=== PATIENT | female | born 1950 | race Native Hawaiian/Other Pacific Islander ===

== ENCOUNTER 2016-09-22 15:48 | Emergency (ER) | payer MEDICARE, OTHER ==
[~2016-09-22] VITALS: Ht 167.6 cm; Wt 99.0 kg
[~2016-09-22 15:48] MED LIST: ASPI81TA82 PO; ATEN-102 PO; ATOR40TA PO; HYDR12.56 PO; LEVE500 PO; LEVO100T4 PO; LISI-363 PO; LORA-474 PO; OXYC1SOL5 PO; TERA5CAP3 PO; VITA100020 PO; Z.0.WALKERFOLD
[2016-09-22 15:57] VITALS: BP 102/57; PULSE 68; RESP 18; TEMP 98.4; O2SAT 98
[2016-09-22] MEDS ORDERED: SODIUM CHLORIDE 0.9% FLUSH 5 ML FLUSH IVF PRN (16:00)
[2016-09-22 16:02] VITALS: BP 102/57; PULSE 66; RESP 18; TEMP 98.4; O2SAT 97
[2016-09-22 16:05] VITALS: RESP 18; O2SAT 98
--- NOTE | 2016-09-22 16:21 | PD ---
HPI . Left-sided numbness Chief Complaint: Numbness/Tingling Time Seen by Provider: 15:59 Travel History International Travel<30 days: No Contact w/Intl Traveler<30days: No Traveled to known affect area: No History of Present Illness HPI Patient presents with a 12 hour history of left-sided numbness. 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 She reports daily episodes of numbness on the left side of her body. She states that the episodes are normally fleeting. Today, she has had numbness since 3:30 AM. She states that she was told that if her symptoms ever worsened she should come to the emergency department for evaluation. She reports that she usually goes to [facility] and has been seen in [place] since her last visit here. She denies headache or blurred vision. She is not nauseous. PFSH Past Medical History Blood Disorders: No Heart Rhythm Problems: No Cancer: No Cardiovascular Problems: Yes High Cholesterol: Yes Chest Pain: No Congestive Heart Failure: No Diabetes: No Diminished Hearing: No Endocrine: Yes Gastrointestinal Disorders: No Genitourinary: No Hypertension: Yes Immune Disorder: No Implanted Vascular Access Dvce: No Musculoskeletal: Yes (back) Neurologic: Yes (brain aneurysms) Psychiatric: No Reproductive: No Respiratory: No Myocardial Infarction: Yes (10/07) Thyroid Disease: Yes (Hypothyrodism) ?: Not Menopausal: Yes Past Surgical History Abdominal Surgery: Yes Appendectomy: Yes Section: Yes Other Surgery: Yes (, appendecomy, back) Social History Alcohol Use: No Tobacco Use: Yes (quit 2012) Substance Use: No Allergies-Medications (Allergen,Severity, Reaction): Coded Allergies: Penicillin (Verified Allergy, Severe, 04/14/16) Reported Meds & Prescriptions Reported Meds & Active Scripts Active Walker Folding (Walkerfold) Device 1 Unit Vitamin B-12 (Cyanocobalamin) 1,000 Mcg Tab 1,000 Mcg PO DAILY 30 Days Keppra (Levetriacetam) 500 Mg Tab 500 Mg PO Q12HR 30 Days Oxycodone/Acetaminophen 5 mg/325 mg 5 mg/325 mg Tab 1 Tab PO Q6HR PRN Reported Levothyroxine 100 mcg (Levothyroxine Sodium) 100 Mcg Tab 100 Mcg PO DAILY Ativan (Lorazepam) 1 Mg Tab 1 Mg PO Q6H Atorvastatin 40 mg (Atorvastatin Calcium) 40 Mg Tab 40 Mg PO DAILY Aspir-81 (Aspirin) 81 Mg Tab 81 Mg PO DAILY Hctz (Hydrochlorothiazide) 12.5 Mg Cap 12.5 Mg PO BID Lisinopril 20 mg (Lisinopril) 20 Mg Tab 20 Mg PO BID Terazosin Hcl (Terazosin HCl) 5 Mg Cap 5 Mg PO BID Atenolol 50 Mg Tab 50 Mg PO BID Review of Systems General / Constitutional: No: Fever, Chills Eyes: No: Diploplia, Blurred Vision HENT: No: Headaches Cardiovascular: No: Chest Pain or Discomfort Respiratory: No: Shortness of Breath Gastrointestinal: No: Nausea Neurologic: Positive: Paresthesia Physical Exam Narrative GENERAL: Healthy-appearing woman who is in no acute distress SKIN: Warm and dry. HEAD: Atraumatic. Normocephalic. EYES: Pupils equal and round. ENT: No nasal bleeding or discharge. Mucous membranes pink and moist. NECK: Trachea midline. Neck is supple. CARDIOVASCULAR: Regular rate and rhythm. Heart sounds are normal. RESPIRATORY: No accessory muscle use. Lungs are clear with full air movement throughout. GASTROINTESTINAL: Abdomen soft, non-tender, nondistended. MUSCULOSKELETAL: No obvious deformities. No edema. NEUROLOGICAL: Awake and alert. No obvious cranial nerve deficits. Motor grossly within normal limits. Normal speech. Negative pronator drift. Negative Babinski's sign. PSYCHIATRIC: Appropriate mood and affect; insight and judgment normal. Data Data Last Documented VS Vital Signs Date Time Temp Pulse Resp B/P Pulse Ox O2 Delivery O2 Flow Rate FiO2 09/22/16 16:05 97 Room Air 09/22/16 16:05 18 09/22/16 16:02 98.4 66 102/57 Orders Complete Blood Count With Diff (09/22/16 15:59) Comprehensive Metabolic Panel (09/22/16 15:59) Prothrombin Time / Inr (Pt) (09/22/16 15:59) Act Partial Throm Time (Ptt) (09/22/16 15:59) Ct Brain W/O Iv Contrast(Rout) (09/22/16 15:59) Ecg Monitoring (09/22/16 15:59) Iv Access Insert/Monitor (09/22/16 15:59) Oximetry (09/22/16 15:59) Oxygen Administration (09/22/16 15:59) Sodium Chloride 0.9% Flush (Ns Flush) (09/22/16 16:00) Labs Laboratory Tests Test 09/22/16 16:15 White Blood Count 9.3 TH/MM3 Red Blood Count 5.07 MIL/MM3 Hemoglobin 14.1 GM/DL Hematocrit 42.0 % Mean Corpuscular Volume 82.8 FL Mean Corpuscular Hemoglobin 27.8 PG Mean Corpuscular Hemoglobin 33.6 % Concent Red Cell Distribution Width 13.9 % Platelet Count 171 TH/MM3 Mean Platelet Volume 11.5 FL Neutrophils (%) (Auto) 66.9 % Lymphocytes (%) (Auto) 22.3 % Monocytes (%) (Auto) 4.9 % Eosinophils (%) (Auto) 5.1 % Basophils (%) (Auto) 0.8 % Neutrophils # (Auto) 6.2 TH/MM3 Lymphocytes # (Auto) 2.1 TH/MM3 Monocytes # (Auto) 0.5 TH/MM3 Eosinophils # (Auto) 0.5 TH/MM3 Basophils # (Auto) 0.1 TH/MM3 CBC Comment DIFF FINAL Differential Comment Prothrombin Time 10.2 SEC Prothromb Time International 0.9 RATIO Ratio Activated Partial 23.1 SEC Thromboplast Time Sodium Level 142 MEQ/L Potassium Level 3.6 MEQ/L Chloride Level 104 MEQ/L Carbon Dioxide Level 28.7 MEQ/L Anion Gap 9 MEQ/L Blood Urea Nitrogen 24 MG/DL Creatinine 1.37 MG/DL Estimat Glomerular Filtration 38 ML/MIN Rate Random Glucose 128 MG/DL Calcium Level 8.8 MG/DL Total Bilirubin 0.5 MG/DL Aspartate Amino Transf 18 U/L (AST/SGOT) Alanine Aminotransferase 31 U/L (ALT/SGPT) Alkaline Phosphatase 101 U/L Total Protein 6.8 GM/DL Albumin 3.5 GM/DL MDM Medical Decision Making Medical Screen Exam Complete: Yes Emergency Medical Condition: Yes Medical Record Reviewed: Yes (the patient has just been seen here one time for this. That was in March. She had an MRA of her neck which was nondiagnostic. She had a CTA of her neck which showed tortuous carotids. She had an ultrasound of her carotids which showed stenosis and plaque formation. She had a head MRI/MRA which showed a small aneurysm of the left MCA.) Interpretation(s) EKG shows a sinus rhythm with a first-degree AV block. No ST segment elevation and. She does have inverted T waves in the lateral leads. Differential Diagnosis My differential diagnosis of paresthesias includes but is not limited to anxiety , radiculopathy, peripheral neuropathy, peripheral vascular disease, compartment syndrome, CVA, brain tumor, bleed. Narrative Course Patient presents for evaluation of paresthesias on her left side. CBC is normal. Chemistries are normal with the exception of decreased renal function with a GFR of 38 and a glucose of 128. Coagulation studies are normal. CT scan of her head is unchanged from previous. She has a stable density in the deep right frontal lobe consistent with the angioma. No evidence of a bleed. When I went in to discuss the findings with the patient, she reported that her symptoms seem to occur she is anxious about something. She has Ativan that she takes as needed. Her symptoms will resolve when she takes Ativan. The CT of her head is negative for bleed. Therefore, I think she is safe for discharge to home. I feel that her symptoms are probably more anxiety than neuro. Diagnosis Primary Impression: Paresthesia Disposition: 01 DISCHARGE HOME Condition: Stable Fay Mujica MD Sep 22, 2016 16:21
[2016-09-22 16:50] LABS: AUTOMATED NEUTROPHIL # 6.2 TH/MM3 (1.8-7.7); BASOPHIL # 0.1 TH/MM3 (0-0.2); BASOPHIL % 0.8 % (0.0-2.0); EOSINOPHIL # 0.5 TH/MM3 (0-0.4); EOSINOPHIL % 5.1 % (0.0-4.0); HEMO FLAGS DIFF FINAL; LYMPH % 22.3 % (9.0-44.0); LYMPHOCYTE # 2.1 TH/MM3 (1.0-4.8); MEAN CELL VOLUME 82.8 FL (80.0-100.0); MEAN CORPUSCULAR HEMOGLOBIN 27.8 PG (27.0-34.0); MEAN CORPUSCULAR HGB CONC 33.6 % (32.0-36.0); MONO % 4.9 % (0.0-8.0); NEUT % 66.9 % (16.0-70.0); PLATELET COUNT 171 TH/MM3 (150-450); RED BLOOD COUNT 5.07 MIL/MM3 (4.00-5.30); RED CELL DISTRIBUTION WIDTH 13.9 % (11.6-17.2); WHITE BLOOD COUNT 9.3 TH/MM3 (4.0-11.0)
[2016-09-22 17:00] LABS: APTT (PATIENT) 23.1 SEC (24.3-30.1); INTERNATIONAL NORMALIZED RATIO 0.9 RATIO; PROTHROMBIN TIME - PATIENT 10.2 SEC (9.8-11.6)
--- NOTE | 2016-09-22 17:06 | RADRPT ---
EXAM DATE/TIME: 09/22/2016 16:40 [facility] COMPARISON: MRI BRAIN W & W/O CONTRAST, April 14, 2016, 19:10. CT BRAIN W/O CONTRAST, April 14, 2016, 17:58. INDICATIONS : Cephalgia. RADIATION DOSE: 46.61 CTDIvol (mGy) MEDICAL HISTORY : Cerebrovascular disease. Hypertension. Seizures.brain aneurysm SURGICAL HISTORY : None. ENCOUNTER: Initial ACUITY: 1 day PAIN SCALE: 4/10 LOCATION: cranial TECHNIQUE: Multiple contiguous axial images were obtained of the head. Using automated exposure control and adj ustment of the mA and/or kV according to patient size, radiation dose was kept as low as reasonably a chievable to obtain optimal diagnostic quality images. FINDINGS: CEREBRUM: The ventricles are normal for age. No evidence of midline shift, mass lesion, hemorrhage or acute in farction. No extra-axial fluid collections are seen. Small area of increased density in the right fr ontal lobe deep white matter consistent with cavernous angioma remains present and unchanged Th e cerebellum and brainstem are intact. The 4th ventricle is midline. The cerebellopontine angle is unremarkable. EXTRACRANIAL: The visualized portion of the orbits is intact. SKULL: The calvaria is intact. No evidence of skull fracture. CONCLUSION: Stable CT brain scan with no acute intracranial abnormality. Stable small area of inc reased density in the right frontal deep white matter consistent with cavernous angioma Long Owen MD on September 22, 2016 at 17:02 Board Certified Radiologist. This report was verified electronically.
[2016-09-22 17:16] LABS: ANION GAP 9 MEQ/L (5-15); AST (GOT) 18 U/L (15-37); BICARBONATE 28.7 MEQ/L (21.0-32.0); BLOOD UREA NITROGEN 24 MG/DL (7-18); CHLORIDE 104 MEQ/L (98-107); GLOMERULAR FILTRATION RATE 38 ML/MIN (>89); POTASSIUM 3.6 MEQ/L (3.5-5.1); SODIUM (NA) 142 MEQ/L (136-145)
[2016-09-22 17:19] LABS: ALKALINE PHOSPHATASE 101 U/L (45-117); ALT (GPT) 31 U/L (10-53); TOTAL BILIRUBIN ADULT 0.5 MG/DL (0.2-1.0)
[2016-09-22] MEDS ORDERED: WALKER WHEELS/F1 MIS (18:15)
[2016-09-22 18:34] VITALS: BP 173/73; TEMP 98
--- NOTE | 2016-09-23 12:29 | EKG ---
Date Performed: 09/22/2016 Time Performed: 16:01:19 PTAGE: 66 years EKG: Sinus rhythm WITH FIRST DEGREE AV BLOCK ST DEVIATION AND MODERATE T-WAVE ABNORMALITY, CONSIDER ANTERIOR ISCHEMIA ABNORMAL ECG INTERPRETATION BASED ON A DEFAULT AGE OF 40 YEARS PREVIOUS TRACING : 04/14/2016 17.44 Compared to prior tracing no significant change DOCTOR: Pedro Pablo Read Interpretating Date/Time 09/23/2016 12:28:00
== END 2016-09-22 18:37 | disposition home or self-care (01) ==
LOC: NEPA 15:48
DX: R20.2 Paresthesia of skin (principal); E78.00 Pure hypercholesterolemia, unspecified; I10 Essential (primary) hypertension; R94.31 Abnormal electrocardiogram [ECG] [EKG]
CPT/HCPCS: 70450; 80053; 85025; 85610; 85730; 93005

== ENCOUNTER 2017-03-25 19:59 | Inpatient (IN) | payer MEDICARE, OTHER ==
[~2017-03-25] VITALS: Ht 167.6 cm; Wt 115.4 kg
[~2017-03-25 19:59] MED LIST changes: +WALKER WHEELS/F1 MIS
[2017-03-25 20:10] VITALS: BP 101/58; PULSE 120; RESP 18; TEMP 98.1; O2SAT 97
[2017-03-25 20:19] VITALS: BP 139/68; PULSE 121; RESP 22; O2SAT 92; O2SAT 95
[2017-03-25 20:20] VITALS: O2SAT 96
[2017-03-25] MEDS ORDERED: AZTREONAM INJ 2,000 MG in SODIUM CHLORIDE 0.9% INJ 100 ML IV STA (20:25)
[2017-03-25] MEDS ORDERED: LEVOFLOXACIN 750 MG PREMIX INJ 150 ML IV STA (20:25)
[2017-03-25] MEDS ORDERED: SODIUM CHLOR 0.9% 1000 ML INJ 1,000 ML IV ONE ×3 (20:30→22:00)
[2017-03-25] MEDS ORDERED: MORPHINE SULFATE 4 MG/ML INJ IV PUSH ONE (20:30)
[2017-03-25] MEDS ORDERED: ONDANSETRON HCL 4 MG/2 ML VIAL IV PUSH ONE (20:30)
[2017-03-25 20:34] LABS: HEMATOCRIT 29.5 % (35.0-46.0); MEAN CELL VOLUME 89.7 FL (80.0-100.0); MEAN CORPUSCULAR HEMOGLOBIN 29.3 PG (27.0-34.0); MEAN CORPUSCULAR HGB CONC 32.6 % (32.0-36.0); PLATELET COUNT 67 TH/MM3 (150-450); RED BLOOD COUNT 3.29 MIL/MM3 (4.00-5.30); RED CELL DISTRIBUTION WIDTH 17.5 % (11.6-17.2); WHITE BLOOD COUNT 30.2 TH/MM3 (4.0-11.0)
[2017-03-25] MEDS ORDERED: LAMO100 PO (20:37)
[2017-03-25 20:39] LABS: HEMO FLAGS AUTO DIFF
[2017-03-25] MEDS ORDERED: PERC5TAB12 PO (20:39)
[2017-03-25] MEDS ORDERED: TERA5CAP3 PO (20:39)
[2017-03-25] MEDS ORDERED: LEVO100T5 PO (20:39)
[2017-03-25] MEDS ORDERED: LORA1TAB12 PO (20:40)
[2017-03-25] MEDS ORDERED: LISI-586 PO (20:40)
[2017-03-25] MEDS ORDERED: ATEN50TA PO (20:41)
[2017-03-25] MEDS ORDERED: ATOR40TA16 PO (20:41)
--- NOTE | 2017-03-25 20:45 | PD ---
HPI Chief Complaint: Chest Pain Time Seen by Provider: 20:16 Travel History International Travel<30 days: No Contact w/Intl Traveler<30days: No Traveled to known affect area: No History of Present Illness HPI The patient is a 66 year old female who presents to the [facility] emergency department with a history of reportedly not feeling well since February 21 she underwent an epidural steroid injection for right-sided low back pain that radiates down into the right foot. She reports that after the procedure she began to have pain in the evening that night. She reports that she had a second procedure done on March 06 and continues to be an unremitting pain. She reports that over the last mom she's also had a cough is intermittently productive of white to rubio sputum. She reports that since January 2080 she's had chest pain and shortness of breath that gets worse when she stands up or exerts herself. She denies any prior history of myocardial infarction, congestive heart failure, lower extremity edema, calf pain that is new or erythema. The patient incidentally reports that she has numbness and tingling on the left side of the face, left arm, left leg that she reports is been chronic since September 2016 when she was diagnosed with an inoperable brain aneurysm. The patient denies being on any antibiotic recently. She reports are related to the cough she was placed on prednisone and has been taking prednisone 10 mg daily for the last month. The patient was brought in by ambulance services and was noted prior to arrival to have a blood pressure of 92 systolic then decreased to in the 70s with standing associated with chest pain and shortness of breath. The patient's blood sugar prior to arrival was 243. The patient received approximately 500 mL normal saline prior to arrival and her blood pressure went up to 113 systolic. The patient's recent history is also significant for being weaned off of Lamictal. She reports that she will be changed to a new seizure medicine. She was placed on seizure medicine in September 2016 related to her brain aneurysm. She is followed by for her neurologic care, Dr. Wilhelm for her neurosurgical care, and Dr. Campbell' s office for primary care. On review of systems, she denies having any fevers, however she has had some chills and night sweats. She reports that over the last 2 weeks she's had a diminished appetite and has also not been drinking well regarding her fluids over the last few days. The patient incidentally reports that she has had yellow drainage from her left eye, yellow drainage from her left ear that began today, and a sore throat that also began today. She denies having any nausea, vomiting, or diarrhea. She denies having any urinary symptoms including incontinence. She denies having any weakness to her arms or legs. 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 The patient reports that she quit smoking 4 years ago. Blood Disorders: No Heart Rhythm Problems: No Cancer: No Cardiovascular Problems: Yes High Cholesterol: Yes Chest Pain: No Congestive Heart Failure: No Diabetes: No Diminished Hearing: No Endocrine: Yes Gastrointestinal Disorders: No Genitourinary: No Hypertension: Yes Immune Disorder: No Implanted Vascular Access Dvce: No Musculoskeletal: Yes (back) Neurologic: Yes (brain aneurysms) Psychiatric: No Reproductive: No Respiratory: No Myocardial Infarction: Yes (10/07) Thyroid Disease: Yes (Hypothyrodism) Menopausal: Yes Past Surgical History Narrative Surgical The patient's past surgical history is significant for a , appendectomy , back surgery. Abdominal Surgery: Yes Appendectomy: Yes Section: Yes Other Surgery: Yes (, appendecomy, back) Social History Alcohol Use: No Tobacco Use: Yes (quit 2012) Substance Use: No Allergies-Medications (Allergen,Severity, Reaction): Coded Allergies: Penicillin (Verified Allergy, Severe, 03/25/17) Reported Meds & Prescriptions Reported Meds & Active Scripts Active Reported Atorvastatin (Atorvastatin Calcium) 40 Mg Tab 40 Mg PO DAILY Atenolol 50 Mg Tab 50 Mg PO BID Lorazepam 1 Mg Tab 1 Mg PO Q6H PRN Zestoretic (Lisinopril-Hctz) 20-12.5 Mg Tab 1 Tab PO BID Percocet (Oxycodone-Acetaminophen) 5-325 mg Tab 1 Tab PO Q6H PRN Terazosin (Terazosin HCl) 5 Mg Cap 5 Mg PO AC DINNER Levothyroxine (Levothyroxine Sodium) 100 Mcg Tab 100 Mcg PO DAILY Lamictal (Lamotrigine) 100 Mg Tab 50 Mg PO HS Review of Systems Except as stated in HPI: all other systems reviewed are Neg General / Constitutional: No: Fever Eyes: No: Visual changes HENT: No: Headaches Cardiovascular: No: Chest Pain or Discomfort Respiratory: No: Shortness of Breath Gastrointestinal: No: Abdominal Pain Genitourinary: No: Dysuria Musculoskeletal: No: Pain Skin: No Rash Neurologic: No: Weakness Psychiatric: No: Depression Endocrine: No: Polydipsia Hematologic/Lymphatic: No: Easy Bruising Physical Exam Narrative General: The patient is a well-developed well-nourished female in no acute distress. Head and Neck exam: Head is normocephalic atraumatic. Eyes: EOMI, pupils are equal round and reactive to light. Nose: Midline septum with pink mucous membranes Mouth: Dentition unremarkable. Moist mucus membranes. Posterior oropharynx is not erythematous. No tonsillar hypertrophy. Uvula midline. Airway patent. Neck: No palpable lymphadenopathy. No nuchal rigidity. No thyromegaly. Cardiovascular: Sinus tachycardia in the low 100s to 1 teens without murmurs, gallops, or rubs. No pulse deficit to the extremities and simultaneous auscultation and palpation of her radial artery. Lungs: Clear to auscultation bilaterally. No wheezes, rhonchi, or rales. Abdomen: Soft, without tenderness to palpation in all 4 quadrants of the abdomen. No guarding, rebound, or rigidity. Normal bowel sounds are audible. No tenderness on palpation of McBurney's point. Negative [place] sign. Extremities: No clubbing, cyanosis, or edema. 2+ pulses in all 4 extremities. No calf tenderness on palpation. Back: No spinous process tenderness to palpation. No costovertebral angle tenderness to palpation. No step-off or crepitus. No erythema or ecchymosis. Neurologic Exam: Cranial nerves 2-12 were intact on exam. Strength is 5/5 in all 4 extremities. The patient reports having a chronic numbness sensation along the left side of the face, left arm, left leg which has been unchanged compared to previously. Skin Exam: No rash noted. Intact skin that is warm and dry. Data Data Last Documented VS Vital Signs Date Time Temp Pulse Resp B/P Pulse Ox O2 Delivery O2 Flow Rate FiO2 03/25/17 20:20 96 Nasal Cannula 2 03/25/17 20:19 121 22 139/68 03/25/17 20:10 98.1 Orders Electrocardiogram (03/25/17 20:16) Complete Blood Count With Diff (03/25/17 20:16) Comprehensive Metabolic Panel (03/25/17 20:16) Creatine Kinase (Cpk) (03/25/17 20:16) Ckmb (Isoenzyme) Profile (03/25/17 20:16) Troponin I (03/25/17 20:16) B-Type Natriuretic Peptide (03/25/17 20:16) Prothrombin Time / Inr (Pt) (03/25/17 20:16) Act Partial Throm Time (Ptt) (03/25/17 20:16) Blood Culture (03/25/17 20:16) C-Reactive Protein (Crp) (03/25/17 20:16) Lipase (03/25/17 20:16) Urinalysis - C+S If Indicated (03/25/17 20:16) Westergren Sedimentation Rate (03/25/17 20:16) D-Dimer (03/25/17 20:16) Magnesium (Mg) (03/25/17 20:16) Chest, Pa & Lat (03/25/17 20:16) Iv Access Insert/Monitor (03/25/17 20:16) Ecg Monitoring (03/25/17 20:16) Oximetry (03/25/17 20:16) Lactic Acid Sepsis Protocol (03/25/17 20:16) Sodium Chlor 0.9% 1000 Ml Inj (Ns 1000 M (03/25/17 20:30) Morphine Inj (Morphine Inj) (03/25/17 20:30) Ondansetron Inj (Zofran Inj) (03/25/17 20:30) Aztreonam Inj (Azactam Inj) (03/25/17 20:25) Levofloxacin 750 Mg Premix Inj (Levaquin (03/25/17 20:25) Ct Pulmonary Angiogram (03/25/17 21:29) Sodium Chlor 0.9% 1000 Ml Inj (Ns 1000 M (03/25/17 21:45) Ct Lumb Spine W/O Contrast (03/25/17 21:32) Sodium Chlor 0.9% 1000 Ml Inj (Ns 1000 M (03/25/17 22:00) Urine Culture (03/25/17 21:44) Admit Order (Ed Use Only) (03/25/17 22:54) Labs Laboratory Tests Test 03/25/17 03/25/17 03/25/17 20:20 20:30 21:44 White Blood Count 30.2 TH/MM3 Red Blood Count 3.29 MIL/MM3 Hemoglobin 9.6 GM/DL Hematocrit 29.5 % Mean Corpuscular Volume 89.7 FL Mean Corpuscular Hemoglobin 29.3 PG Mean Corpuscular Hemoglobin 32.6 % Concent Red Cell Distribution Width 17.5 % Platelet Count 67 TH/MM3 Mean Platelet Volume 8.6 FL Neutrophils (%) (Auto) % Lymphocytes (%) (Auto) % Monocytes (%) (Auto) % Eosinophils (%) (Auto) % Basophils (%) (Auto) % Neutrophils # (Auto) TH/MM3 Lymphocytes # (Auto) TH/MM3 Monocytes # (Auto) TH/MM3 Eosinophils # (Auto) TH/MM3 Basophils # (Auto) TH/MM3 CBC Comment AUTO DIFF Differential Total Cells 100 Counted Neutrophils % (Manual) 24 % Band Neutrophils % 1 % Lymphocytes % 19 % Monocytes % 14 % Neutrophils # (Manual) 13.3 TH/MM3 Myelocytes 14 % Promyelocytes 5 % Differential Comment FINAL DIFF MANUAL Blastocytes 23 % Platelet Estimate LOW Platelet Morphology Comment NORMAL Erythrocyte Sedimentation Rate 74 mm/hr Prothrombin Time 11.3 SEC Prothromb Time International 1.0 RATIO Ratio Activated Partial 23.6 SEC Thromboplast Time D-Dimer Quantitative (PE/DVT) 2.88 MG/L FEU Sodium Level 139 MEQ/L Potassium Level 3.9 MEQ/L Chloride Level 106 MEQ/L Carbon Dioxide Level 25.7 MEQ/L Anion Gap 7 MEQ/L Blood Urea Nitrogen 30 MG/DL Creatinine 1.46 MG/DL Estimat Glomerular Filtration 36 ML/MIN Rate Random Glucose 184 MG/DL Calcium Level 7.8 MG/DL Magnesium Level 2.1 MG/DL Total Bilirubin 0.6 MG/DL Aspartate Amino Transf 32 U/L (AST/SGOT) Alanine Aminotransferase 31 U/L (ALT/SGPT) Alkaline Phosphatase 81 U/L Total Creatine Kinase 70 U/L Troponin I LESS THAN 0.02 NG/ML C-Reactive Protein 9.10 MG/DL B-Type Natriuretic Peptide 185 PG/ML Total Protein 6.0 GM/DL Albumin 2.6 GM/DL Lipase 303 U/L Lactic Acid Level 1.9 mmol/L Urine Color YELLOW Urine Turbidity CLEAR Urine pH 5.5 Urine Specific [place] 1.016 Urine Protein TRACE mg/dL Urine Glucose (UA) NEG mg/dL Urine Ketones NEG mg/dL Urine Occult Blood MOD Urine Nitrite NEG Urine Bilirubin NEG Urine Urobilinogen LESS THAN 2.0 MG/DL Urine Leukocyte Esterase TRACE Urine RBC 14 /hpf Urine WBC 43 /hpf Urine Squamous Epithelial 2 /hpf Cells Urine Bacteria RARE /hpf Urine Hyaline Casts 2 /lpf Urine Granular Casts 2 /lpf Urine Mucus FEW /lpf Microscopic Urinalysis Comment CULTURE INDICATED MDM Medical Decision Making Medical Screen Exam Complete: Yes Emergency Medical Condition: Yes Medical Record Reviewed: Yes Interpretation(s) Last Impressions Lumbar Spine CT 03/25/172131 Signed Impressions: Service Date/Time: Sunday, March 26, 2017 01:12 - CONCLUSION: 1. Degenerative disc changes greatest at the L4-5 and L5-S1 levels with broad-based disc osteophyte complexes. There is lateral recess stenosis at the L5-S1 level. 2. Mild retrolisthesis of L5 on S1 with degenerative disc change and broad-based disc osteophyte complex. 3. Narrowing of the neuroforamina bilaterally at the L4-5 and L5-S1 levels. 4. Degenerative disc change. Balaji Solorio MD CT Angiography 03/25/172128 Signed Impressions: Service Date/Time: Sunday, March 26, 2017 01:09 - CONCLUSION: 1. Mild consolidation along the left fissure and lower lobe. This could indicate early pneumonia. 2. No evidence of pulmonary embolism. Balaji Solorio MD Chest X-Ray 03/25/172015 Signed Impressions: Service Date/Time: Saturday, March 25, 2017 20:48 - CONCLUSION: Partially consolidative left lower lobe infiltrate. Yared Sethi MD Differential Diagnosis Acute coronary syndrome, versus pneumonia, versus pulmonary embolism, versus pyelonephritis, versus exacerbation of chronic pain, versus epidural abscess, versus epidural hemorrhage Narrative Course During the course of the patients emergency department visit, the patients history, examination, and differential diagnosis were reviewed with the patient. The patient had IV access obtained and blood work sent for analysis. The patient was placed on a clinical research monitor with oximetry and blood pressure monitoring. An ECG was done on arrival. The patient's ECG reveals a sinus tachycardia with heart rate of 122, nonspecific ST-T wave abnormalities, T waves inverted in V1, V2, V3, no acute ST segment elevation, QRS duration 90 ms , QTC 404 ms. Blood cultures 2 were drawn, lactic acid was sent for analysis. The patient was initially provided normal saline 1 L IV fluid bolus, morphine for pain, Zofran for nausea. The patient was started on IV antibiotic for respiratory coverage for suspected pneumonia including Azactam, and Levaquin given the patient's penicillin allergy. The patients laboratory studies were reviewed and remarkable for a white count of 30.2, hemoglobin 9.6, platelets 67 which is an acute thrombocytopenia compared to previous evaluation, neutrophils 24, bands 1, 19 lymphocytes, monocytes 14, myelocytes 14, promyelocytes 5, 23 blasts. CMP is remarkable for BUN of 30, creatinine 1.48, glucose 184, lactic acid is 1.9, calcium 7.8, CPK 70 , troponin I less than 0.02, C-reactive protein is 9.10, lipase 303, BNP is 185. PT 11.3, PTT 23.6, d-dimer elevated at 2.88, a CTA to rule out PE was ordered. CT scan of the lumbar spine was also ordered to evaluate for possible mass versus infectious process. Radiology studies were reviewed and remarkable for a partially consolidated left lower lobe infiltrate. CT scan of the chest to rule out PE shows a mild consolidation along the left fissure and lower lobe. This could indicate early pneumonia. No evidence of pulmonary embolism. CT scan of the lumbar spine shows degenerative disc changes greatest at L4-L5 L5-S1 with broad-based disc osteophyte complexes. There is lateral recess stenosis at L5-S1 level. #2 there is mild retrolisthesis of L5 on S1 with degenerative disc change and brought to a disc osteophyte complex. #3 narrowing of the neuroforamina bilaterally at the L4-L5 L5-S1 levels, degenerative disc changes. The patients results were discussed with the patient, including the plan of care. I explained that further testing and/ or monitoring is indicated based on the patients history, examination, and/ or laboratory findings. Therefore, I recommended admission for additional evaluation. The patient expressed understanding and was agreeable with this plan. The patient was admitted to the hospital in guarded condition and sent to a bed under the care of the [facility] hospitalist group. Critical Care Narrative Aggregate critical care time was 40 minutes. Time to perform other separately billable procedures was not included in the critical care time. My time did not include minutes spent treating any other patients simultaneously or on activities that did not directly contribute to the patient's treatment. The services I provided to this patient were to treat and/or prevent clinically significant deterioration that could result in: [-] I provided critical care services requiring my management, as noted below: Chart data review, documentation time, medication orders and management, vital sign assessments/reviewing monitor data, ordering and reviewing lab tests, ordering and interpreting/reviewing x-rays and diagnostic studies, care of the patient and discussion of the patient with the admitting physicians. Sepsis Criteria SIRS Criteria (2 or more): Heart rate over 90, RR > 20 or PaCO2 < 32, WBC > 32149, < 4000 or > 10% bands Sepsis Criteria (SIRS+source): Infect source susp/known Criteria Outcome: Meets SIRS criteria, Meets sepsis criteria Diagnosis Primary Impression: Pneumonia Qualified Code: J18.1 - Pneumonia of left lower lobe due to infectious organism Additional Impression: Sepsis Qualified Code: A41.9 - Sepsis, due to unspecified organism Admitting Information Admitting Physician Requests: Admit Genet Donahue MD Mar 25, 2017 20:45
[2017-03-25 20:49] LABS: APTT (PATIENT) 23.6 SEC (24.3-30.1); PROTHROMBIN TIME - PATIENT 11.3 SEC (9.8-11.6)
[2017-03-25 20:54] LABS: ANION GAP 7 MEQ/L (5-15); AST (GOT) 32 U/L (15-37); BICARBONATE 25.7 MEQ/L (21.0-32.0); BLOOD UREA NITROGEN 30 MG/DL (7-18); CHLORIDE 106 MEQ/L (98-107); GLOMERULAR FILTRATION RATE 36 ML/MIN (>89); MAGNESIUM 2.1 MG/DL (1.5-2.5); POTASSIUM 3.9 MEQ/L (3.5-5.1); SODIUM (NA) 139 MEQ/L (136-145)
[2017-03-25 20:55] LABS: ALT (GPT) 31 U/L (10-53)
[2017-03-25 20:58] LABS: ALKALINE PHOSPHATASE 81 U/L (45-117); TOTAL BILIRUBIN ADULT 0.6 MG/DL (0.2-1.0)
[2017-03-25 21:03] LABS: CREATINE KINASE 70 U/L (26-192)
[2017-03-25 21:13] LABS: BANDS 1 % (0-6); BLASTS 23 % (0-0); MYELOCYTES 14 % (0-0); NEUTROPHIL # MANUAL DIFF 13.3 TH/MM3 (1.8-7.7); POLYS (SEG NEUTROPHILS) 24 % (16-70); PROMYELOCYTES 5 % (0-0); WBC DIFF SAMPLE 100
[2017-03-25 21:15] LABS: PLATELET ESTIMATE SMEAR LOW (NORMAL); PLATELET MORPHOLOGY NORMAL (NORMAL); SCAN/DIFF FINAL DIFF MANUAL
--- NOTE | 2017-03-25 21:21 | RADRPT ---
EXAM DATE/TIME: 03/25/2017 20:48 [facility] COMPARISON: No previous studies available for comparison. INDICATIONS : Left anterior chest pain, denies injury MEDICAL HISTORY : Cerebrovascular disease. Hypertension. Seizures.brain aneurysm SURGICAL HISTORY : None. ENCOUNTER: Initial ACUITY: 1 week PAIN SCORE: 4/10 LOCATION: Left chest FINDINGS: The right lung is clear. There are some patchy areas of partially consolidative infiltrate in the le ft lower lung with air bronchograms. Both hemidiaphragms remain well delineated. No evidence of ple ural effusion. The heart is normal in size and configuration. Osseous structures are grossly intact . CONCLUSION: Partially consolidative left lower lobe infiltrate. Yared Sethi MD on March 25, 2017 at 21:18 Board Certified Radiologist. This report was verified electronically.
[2017-03-25 22:33] LABS: BACTERIA, URINE RARE /hpf; BLOOD, URINE MOD (NEG); COMMENT (UR) CULTURE INDICATED; CULTURE IF INDICATED CULTURE INDICATED; GLUCOSE,URINE NEG (NEG); GRANULAR CAST, URINE 2 /lpf; HYALINE CAST, URINE 2 /lpf (RARE); KETONE, URINE NEG (NEG); MUCUS URINE FEW /lpf (OCC); NITRITE,URINE NEG (NEG); PH, URINE 5.5 (5.0-8.5); SQUAMOUS EPITHELIAL CELL URINE 2 /hpf (0-5); URINE COLOR YELLOW (YELLW/STRAW)
[2017-03-25] MEDS ORDERED: HEPARIN SODIUM - SQ 10,000 UNITS/ML VIAL SQ SCH (23:00)
[2017-03-25] MEDS ORDERED: guaiFENesin/DEXTROMETHORPHAN 200 MG/20 MG/10 ML CUP PO PRN (23:15)
[2017-03-25] MEDS ORDERED: LACTULOSE SYRUP 20 GM/30 ML CUP PO PRN (23:15)
[2017-03-25] MEDS ORDERED: ACETAMINOPHEN 325 MG TAB PO PRN (23:15)
[2017-03-25] MEDS ORDERED: SENNOSIDES 8.6 MG TAB PO PRN (23:15)
[2017-03-25] MEDS ORDERED: NALOXONE HCL 0.4 MG/ML AMP IV PRN (23:15)
[2017-03-25] MEDS ORDERED: SODIUM CHLORIDE 0.9% FLUSH 10 ML FLUSH IV FLUSH PRN (23:15)
[2017-03-25] MEDS ORDERED: PILL SPLITTER OTHER PRN (23:30)
[2017-03-26] VITALS (16 sets, daily range): BP systolic 70–111; BP diastolic 46–63; PULSE 68–133; RESP 14–30; TEMP 96.6–100.6; O2SAT 92–99
[2017-03-26] MEDS: MORPHINE SULFATE 4 MG/ML INJ IV PUSH PRN ×4 (00:47→19:57)
[2017-03-26] MEDS ORDERED: IODIXANOL 320 MG/ML 10 ML VIAL (for Rad CT) IV ONE (01:10)
--- NOTE | 2017-03-26 01:22 | RADRPT ---
EXAM DATE/TIME: 03/26/2017 01:09 [facility] COMPARISON: CHEST PA & LAT, March 25, 2017, 20:48. INDICATIONS : Chest pain with shortness of breath. Abnormal chest x-ray exam with consolidation in the left lower l obe. IV CONTRAST: 50 cc Visipaque (iodixanol) IV RADIATION DOSE: 23.34 CTDIvol (mGy) MEDICAL HISTORY : Seizures. Hypertension. CVA. SURGICAL HISTORY : Appendectomy. section.Spinal surgery. ENCOUNTER: Initial ACUITY: 1 day PAIN SCALE: 6/10 LOCATION: Bilateral chest TECHNIQUE: Volumetric scanning of the chest was performed using a pulmonary embolism protocol MIP images were re constructed. Using automated exposure control and adjustment of the mA and/or kV according to patien t size, radiation dose was kept as low as reasonably achievable to obtain optimal diagnostic quality images. DICOM format image data is available electronically for review and comparison. Follow-up recommendations for incidentally detected pulmonary nodules are based at a minimum on nodul e size and patient risk factors according to Fleischner Society Guidelines. FINDINGS: PULMONARY ARTERIES: No filling defects are seen in the pulmonary arteries through the segmental level. LUNGS: There is no pneumothorax . There is mild consolidation along the left fissure and lower lobe. No con cerning pulmonary nodule is visualized. PLEURAE: There is no pleural thickening or pleural effusion. MEDIASTINUM: There is good visualization of the great vessels of the middle mediastinum. No evidence of mediastin al or hilar adenopathy/mass. MUSCULOSKELETAL: Within normal limits for patient age. MISCELLANEOUS: The visualized upper abdominal organs demonstrate no acute abnormality. CONCLUSION: 1. Mild consolidation along the left fissure and lower lobe. This could indicate early pneumonia. 2. No evidence of pulmonary embolism. Balaji Solorio MD on March 26, 2017 at 1:18 Board Certified Radiologist. This report was verified electronically.
[2017-03-26] MEDS: SODIUM CHLOR 0.9% 1000 ML INJ 1,000 ML IV SCH ×3 (01:28→19:57)
--- NOTE | 2017-03-26 01:40 | RADRPT ---
EXAM DATE/TIME: 03/26/2017 01:12 [facility] COMPARISON: No previous studies available for comparison. INDICATIONS : Low back pain. RADIATION DOSE: 37.81 CTDIvol (mGy) MEDICAL HISTORY : Hypertension. Seizures. CVA. SURGICAL HISTORY : section. Spinal surgery. ENCOUNTER: Initial ACUITY: 1 day PAIN SCALE: 0/10 LOCATION: lumbar TECHNIQUE: Volumetric scanning of the lumbar spine was performed. Multiplanar reconstructions in the sagittal, coronal and oblique axial planes were performed. Using automated exposure control and adjustment of the mA and/or kV according to patient size, radiation dose was kept as low as reasonably achievable t o obtain optimal diagnostic quality images. DICOM format image data is available electronically for review and comparison. FINDINGS: VERTEBRAE: There is mild invagination of the superior endplate of the L3 vertebral body. DISCS: Degenerative disc changes are present greatest at the L4-5 and L5-S1 levels with disc space narrowing and hypertrophic change. ALIGNMENT: There is mild retrolisthesis of L5 on S1 of several millimeters. There is straightening of the normal lumbar lordosis. There is a mild scoliosis. T12-L1: The thecal sac has a normal diameter. No evidence of disc bulge or protrusion. The neural foramina are patent bilaterally. L1-L2: There is a mild disc bulge with mild flattening of the anterior thecal sac and no visualized protrusi on.. The neural foramina are patent bilaterally. L2-L3: There is a mild to moderate disc bulge with mild flattening the anterior thecal sac and no visualized protrusion. The neural foramina are patent bilaterally. L3-L4: There is a mild to moderate disc bulge with mild flattening of the anterior thecal sac and no visuali zed protrusion. The neural foramina are patent bilaterally. L4-L5: Degenerative disc changes with broad-based disc osteophyte complex with flattening of the anterior th ecal sac and narrowing of the neural foramina bilaterally. There are degenerative change involving th e facet joints. L5-S1: Degenerative disc change with broad-based disc osteophyte complex with flattening of the anterior the luis sac and narrowing of the neural foramina bilaterally. There is bilateral foraminal narrowing and lateral recess stenosis. CONCLUSION: 1. Degenerative disc changes greatest at the L4-5 and L5-S1 levels with broad-based disc osteophyte c omplexes. There is lateral recess stenosis at the L5-S1 level. 2. Mild retrolisthesis of L5 on S1 with degenerative disc change and broad-based disc osteophyte comp lux. 3. Narrowing of the neuroforamina bilaterally at the L4-5 and L5-S1 levels. 4. Degenerative disc change. Balaji Solorio MD on March 26, 2017 at 1:33 Board Certified Radiologist. This report was verified electronically.
[2017-03-26] MEDS: TEMAZEPAM 15 MG CAP PO PRN ×2 (03:06→21:16)
[2017-03-26 04:27] LABS: HEMATOCRIT 24.1 % (35.0-46.0); MEAN CELL VOLUME 89.7 FL (80.0-100.0); MEAN CORPUSCULAR HEMOGLOBIN 30.2 PG (27.0-34.0); MEAN CORPUSCULAR HGB CONC 33.6 % (32.0-36.0); PLATELET COUNT 52 TH/MM3 (150-450); RED BLOOD COUNT 2.69 MIL/MM3 (4.00-5.30); WHITE BLOOD COUNT 30.5 TH/MM3 (4.0-11.0)
[2017-03-26 04:32] LABS: HEMO FLAGS AUTO DIFF
[2017-03-26 04:36] LABS: ALKALINE PHOSPHATASE 66 U/L (45-117); ALT (GPT) 27 U/L (10-53); ANION GAP 9 MEQ/L (5-15); AST (GOT) 24 U/L (15-37); BICARBONATE 22.8 MEQ/L (21.0-32.0); BLOOD UREA NITROGEN 22 MG/DL (7-18); CALCIUM-PROTEIN CORRECTED 8.2 MG/DL (8.5-10.1); CHLORIDE 111 MEQ/L (98-107); GLOMERULAR FILTRATION RATE 45 ML/MIN (>89); POTASSIUM 3.9 MEQ/L (3.5-5.1); SODIUM (NA) 143 MEQ/L (136-145); TOTAL BILIRUBIN ADULT 0.3 MG/DL (0.2-1.0)
--- NOTE | 2017-03-26 05:36 | MH ---
cc: MILEY DUFFY DATE OF ADMISSION: 03/25/2017 TIME OF EVALUATION 23:45 CHIEF COMPLAINT Chest pain. Shortness of breath. HISTORY OF PRESENT ILLNESS This is a pleasant 66-year-old female who has not felt well for several weeks. She states on February 21 she underwent epidural steroid injection for right-sided low back pain which was radiating down the right leg. She had another procedure done on March 06. She was due for another one on March [address] Stern, the pain management doctor but was unable to go because she was so short of breath. She states, over the last two weeks, she has had increasing shortness of breath and poor appetite. She brings up white to rubio sputum. She has developed chest pain mainly in the left chest described as a burning and sharp pain. It is more in the upper chest, kind of radiates around the neck and the back and then down to the mid-chest. It is there with exertion but not at rest. She has had some chills but no fever, no nausea or vomiting. She has not complained of nausea, vomiting or diarrhea. She is not having unilateral weakness, numbness or paresthesias in the legs. She is not having loss of bowel or bladder control. She is feeling worse and thus decided to seek medical attention. She has already been on steroids, prednisone 10 mg per day for the past month but she does not feel like this is helping her. PAST MEDICAL HISTORY Significant for - 1. Chronic kidney disease. 2. Hypertension. 3. Hyperlipidemia. 4. Hypothyroidism. 5. Four cerebral aneurysms being monitored medically. 6. TIA. 7. Anxiety 8. Partial seizures. 9. COPD. PAST SURGICAL HISTORY 1. Appendectomy. 2. . 3. Lumbar spinal surgery for an HNP. 4. Varicose veins in the left lower extremity removed. SOCIAL HISTORY Quite smoking four years ago. 30 years ago. Alcohol very rare. FAMILY HISTORY Hypertension and coronary artery disease run in both her parents. REVIEW OF SYSTEMS The patient states she is up-to-date on her colonoscopy and it was normal. Her last mammogram was in 2014 and was normal. She missed her mammogram in 2016. She used to take aspirin but decided to stop taking it on her own several months ago. She is not sure why she decided to stop taking it. She does not remember having side effects from it. She has actually gained weight over the last several years. She has occasional constipation and uses a laxative but this is not every day. REVIEW OF SYSTEMS On 12-point no other pertinent findings. PHYSICAL EXAMINATION VITAL SIGNS: On admission the patient's heart rate was 120, she was afebrile. Blood pulses was 101//58, respirations 18, on a attorney right now her heart rate is in the high 60s, O2 sat is 96% on 2 liters nasal cannula. GENERAL: This is a 66-year-old female resting in ER Bed 49 laying on her left side. She is in no distress. HEENT: No jaundice. Mucous membranes are moist. NECK: Supple. CARDIOVASCULAR SYSTEM: Regular rate and rhythm. RESPIRATORY SYSTEM: Scattered wheezes. A few rhonchi on the left. GASTROINTESTINAL SYSTEM: Obese. No tenderness, guarding or rebound. SYSTEM: No suprapubic tenderness. No CVA tenderness. MUSCULOSKELETAL SYSTEM: Well-healed surgical scar on her lower lumbar spine. There is no point tenderness, guarding, step-off noted on her spine. Lower extremities are without edema. Distal pulses are palpable. Mike's is negative. NEUROLOGICAL EXAMINATION: The patient is awake, alert and oriented x 4. Speech is clear and fluent. Strength appears symmetrical in the upper and lower extremities. Sensation is grossly intact in the upper and lower extremities. INVESTIGATIONS White count is 30.2, hemoglobin is 9.6, platelets are 67, monocytes are 14, myelocytes are 14, promyelocytes are 5, blast cells are 23. Sed rate was 74. INR is 1. D-dimer is at 2.88. BUN 30, creatinine 1.46, GFR is 36, glucose random was 184, calcium 7.8. Troponins negative. C-reactive protein is 9.1. BNP is 185. Total protein is 6, BUN is 2.6, lipase is 303, lactic acid was 1.9. Urinalysis shows moderate occult blood, glucose trace, WBC 43; culture is indicated. CHEST X-RAY Partially consolidated left lower lobe infiltrates. Blood cultures are pending. Urine cultures are pending. IMPRESSION 1. Early sepsis on admission. 2. Left-sided pneumonia. 3. Leukocytosis. 4. Anemia and thrombocytopenia with high myelocytes, promyelocytes and blast cells. 5. Chronic kidney disease. 6. Protein calorie malnutrition. 7. Elevated sed rate and C-reactive protein. 8. Hypertension. 9. History of four small cerebral aneurysms being monitored medically. 10. Recent epidural steroid injections into the lumbar spine for back pain. DISCUSSION The patient is being admitted to Dr. Duffy's service. The patient meets inpatient criteria due to the severity of her pneumonia as well as her multiple abnormal lab findings without which hospitalization she would be at high risk of going into respiratory failure or septic shock or worse. During her hospital stay she will be continued on IV antibiotics including Azactam and Levaquin. Cough medication will be given s needed. Nebulizers will be given as needed. We will consult Oncology human relations teacher to evaluate her for her abnormal CBC and the possibility she will need further workup including bone marrow biopsy, etc. This will be deferred to the oncology team. CT, pulmonary angiogram is pending. CT of the lumbar spine is pending. We will monitor her on telemetry because of the chest pain. We will also monitor serial troponins. Initial troponin was negative. Analgesics p.r.n. will be used as well as anxiolytics and further recommendations will be made as her case progresses. Anticipated length of stay is five to six days. Anticipated discharge yet to be determined. Dictated by: Clive Alejandro PA-C Miley Duffy MD JP/RHONDA /12:28 AM /5:07 AM pt seen and examined as above chart reviewed dw pt plan of care juliana TRIPP
[2017-03-26] MEDS: FAMOTIDINE 20 MG TAB PO SCH ×2 (07:15→19:56)
[2017-03-26] MEDS: AZTREONAM INJ 2,000 MG in SODIUM CHLORIDE 0.9% INJ 100 ML IV SCH ×3 (07:15→23:04)
[2017-03-26] MEDS: SODIUM CHLORIDE 0.9% FLUSH 10 ML FLUSH IV FLUSH SCH ×2 (07:15→19:57)
[2017-03-26 08:16] LABS: BANDS 5 % (0-6); BLASTS 32 % (0-0); METAMYELOCYTES 6 % (0-1); MYELOCYTES 10 % (0-0); NEUTROPHIL # MANUAL DIFF 12.5 TH/MM3 (1.8-7.7); POLYS (SEG NEUTROPHILS) 20 % (16-70); WBC DIFF SAMPLE 100
[2017-03-26 08:18] LABS: PLATELET ESTIMATE SMEAR LOW (NORMAL); PLATELET MORPHOLOGY NORMAL (NORMAL); SCAN/DIFF FINAL DIFF MANUAL
[2017-03-26] MEDS: ALLOPURINOL 100 MG TAB PO SCH ×2 (09:00→19:56)
--- NOTE | 2017-03-26 12:38 | MB ---
cc: LAVELL REIS ZAFAR MD DATE OF CONSULTATION: 03/26/2017 DATE OF : 1950 REASON FOR CONSULTATION Patient with elevated WBC count with circulating myeloid blasts, anemia and thrombocytopenia. Concern for acute leukemia. CHIEF COMPLAINT 1. The patient reports [id number] week history of progressive fatigue, weakness. 2. She reports progressive pain radiating down her right leg which she thinks is worsening sciatica. 3. Chronic cough producing scant phlegm which has been ongoing for months. HISTORY OF PRESENT ILLNESS Ms. Richard is a 66-year-old female who reports having multiple medical comorbid conditions including intracranial aneurysms for which she has been recommended surveillance, sciatica, obesity, she is a former smoker (about a pack a day for 30+ years). She quit 4 years ago. She reports having felt progressive malaise over the past 3 weeks with progressive fatigue, weakness, joint aches and pains, loss of appetite and a chronic cough. She tells me she had been spending a lot of time in bed and her children had been trying to get her up and around to ambulate. The patient, however, acutely worsened last night and decided to come into the emergency department for further workup and management. Blood work performed at the time of presentation indicated a WBC count of 30,000, she was anemic and thrombocytopenic. Automated differential indicated 23% blasts. This was verified on manual differential as well. Additionally, she was noted to have metamyelocytes, promyelocytes and myelocytes in circulation as well. PAST MEDICAL HISTORY 1. A former smoker. 2. Obesity. 3. Intracranial aneurysms. 4. Hyperlipidemia. 5. Hypertension. 6. Hypothyroidism. 7. Reported history of partial seizures. 8. COPD. 9. Anxiety. PAST SURGICAL HISTORY 1. . 2. Varicose vein surgery in her left leg. 3. Appendectomy. SOCIAL HISTORY She is single, she has two adult children age 44 and 36. She reports previously being a smoker. She reports formerly working at [employer] for about 17 years. She retired about 5 years ago. 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 FAMILY HISTORY Parents are both , she does not recall any oncologic diagnoses other than an aunt (maternal) who had lung cancer. ALLERGIES PENICILLIN. MEDICATION Current inpatient medications: 1. Levofloxacin 750 mg IV daily. 2. Normal saline 100 cc/hour. 3. Tylenol 650 mg p.o. q. 4 hours as needed for fever. 4. Allopurinol 100 mg p.o. b.i.d. 5. Famotidine 10 mg p.o. b.i.d. 6. Guaifenesin 200/20 mg per 10 mL every 4 hours as needed for cough. 7. Lactulose 30 mL p.o. daily. 8. Morphine 2 mg IV q. 3 hours as needed for pain. 9. Zofran 4 mg IV q.4 hours as needed for nausea and vomiting. 10. Zofran 4 mg IV q.6 hours. 11. Senokot 17.2 mg p.o. q.12 hours as needed for moderate pain. 12. Temazepam 15 mg p.o. q.h.s. as needed for insomnia. REVIEW OF SYSTEMS 13-point review of systems is obtained, the following are the pertinent positives and negatives: CONSTITUTIONAL: The patient reports fatigue, weakness, loss of appetite, she denies chills or night sweats. She denies fevers. HEENT: Denies headaches, blurry vision, difficulty swallowing, soreness in the throat. RESPIRATORY: She reports shortness of breath with exertion, she reports a dry cough. CARDIOVASCULAR: Denies angina-like chest pain, PND, orthopnea. She denies lower extremity edema. GI: Denies nausea, vomiting, diarrhea, hematochezia, melena. She does report having hemorrhoids that bled a few weeks ago but not since. : No complaints of dysuria, hematuria, urinary incontinence. SENIOR CLINICAL DATA ANALYST: Denies any focal sensory or motor deficits. MUSCULOSKELETAL: She reports feeling generally weak and tired. She reports lower back pain with radiation down her right hip and thigh. PHYSICAL EXAMINATION VITAL SIGNS: Temperature 97.5 degrees Fahrenheit, heart rate 76 beats per minute, respiratory rate 30, blood pressure 106/62, O2 sats 97% on 2 liters nasal cannula. GENERAL PHYSICAL APPEARANCE: Ms. Richard is a middle-aged female, she is of medium height and is heavy-set. She is laying in bed and is in no acute distress. HEENT: Head is atraumatic, normocephalic, conjunctivae are pale. Sclerae are anicteric, EOMI, PERRLA. ORAL EXAM: She has thrush noted. NECK: No cervical lymphadenopathy. RESPIRATORY: Good air movement bilaterally. No added breath sounds. CARDIOVASCULAR: Regular rate and rhythm, S1-S2. No obvious rubs or gallops. She does have a systolic murmur heard over the aortic area. ABDOMEN: Obese belly, soft and nontender, nondistended. No palpable organ enlargement. LOWER EXTREMITIES: No pretibial edema or calf tenderness. MUSCULOSKELETAL: Adequate muscle mass, tone and strength. LABORATORY FINDINGS Blood work dated 03/26/2017: Sodium 143, potassium 3.9, chloride 101, bicarb 22.8, BUN 22, creatinine 1.2, EGFR 45, random glucose 90, calcium 7.3, corrected calcium 8.2, albumin is 0.3, AST 24, ALT 27, alkaline phosphatase 66. Albumin is 2.2. CBC: WBC count 30.5, absolute neutrophil count is 12.5, percent monocytes is 12%, myelocytes 10%, metamyelocytes 6%, blasts 32%. Hemoglobin 8.1 gm/dl, hematocrit 24%, platelet count 52,000, ESR elevated at 74. IMAGING STUDIES CT angiography dated 03/25/2017 indicates mild consolidation along the left fissure of the left lower lobe, may indicate early pneumonia. No evidence of pulmonary embolism. Lumbar spine CT scan dated 03/26/2017 indicates degenerative disk disease at the L4, L5, L5-S1 levels. She does have narrowing of the neural foramina bilaterally at the L4, L5 and L5-S1 levels. PERIPHERAL SMEAR Review of peripheral smear drawn on 03/25/2017: Numerous large immature cells noted, these are consistent with myeloid blasts. Increased numbers of monocytes are also noted. Decreased number of red blood cells noted, decreased platelets as well. ASSESSMENT Ms. Richard is a 66-year-old female with a 3-week history of progressive malaise, fatigue and weakness. She reports soreness of the throat and a dry cough, both of which have been chronic. She presented to the emergency department for further workup and management because her symptoms of fatigue progressed to the point where she had difficulty walking from her bedroom to her restroom. She called EMS last night due to the severity of the symptoms. Blood work performed in the emergency department indicates findings consistent with anemia, thrombocytopenia, her WBCs are grossly abnormal with findings of numerous immature cells and blasts in the peripheral circulation. 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 Formal pathology review, peripheral blood flow cytometry and bone marrow biopsies are pending to confirm the diagnosis. The hematology service has been asked to see this lady for further workup and management. RECOMMENDATIONS 1. Request formal pathology review of the peripheral smear. 2. Request bone marrow core biopsy and aspiration. 3. Request LDH and uric acid levels. 4. She will eventually require cardiac functional analysis should a diagnosis of acute myeloid leukemia is established. MD DAYA Fernandes/APOLINAR /10:53 AM /12:04 PM
[2017-03-26] MEDS ORDERED: MIDAZOLAM HCL 2 MG/2 ML VIAL ONE (13:41)
[2017-03-26] MEDS ORDERED: LIDOCAINE 1%/EPINEPHrine 1:100,000 SOLN 20 ML VIAL ONE (13:42)
[2017-03-26] MEDS ORDERED: fentaNYL CITRATE 250 MCG/5 ML AMP ONE (13:42)
--- NOTE | 2017-03-26 14:52 | EKG ---
Date Performed: 03/25/2017 Time Performed: 20:11:23 PTAGE: 66 years EKG: SINUS TACHYCARDIA NONSPECIFIC ST & T-WAVE ABNORMALITY ABNORMAL RHYTHM ECG Compared to PREVIOUS TRACING sinus rate has increased PREVIOUS TRACIN09/22/2016 16.01 DOCTOR: Serge Nolasco Interpretating Date/Time 03/26/2017 14:50:12
--- NOTE | 2017-03-26 15:19 | PD.RAD ---
Post CT Procedure Prog Note Pre Procedure Diagnosis: (1) Thrombocytopenia (2) Anemia (3) Elevated white blood cell count Post Procedure Diagnosis: (1) Anemia (2) Elevated white blood cell count (3) Thrombocytopenia Procedure Date: Mar 26, 2017 Supervising Radiologist: Raoul Jeffries Estimated blood loss: minimal Anesthesia: Conscious Sedation Plan of Activity Patient to Unit: ROPU Patient Condition: Good See PACS Report for procedural detail/treatment Biopsy Side: Left Biopsy Procedure: Bone Marrow Site: left iliac bone Specimen: Core Biopsy Plan to ROPU and then return to floor Raoul Jeffries MD Mar 26, 2017 15:19
[2017-03-26 15:29] LABS: URIC ACID 9.3 MG/DL (2.6-6.0)
--- NOTE | 2017-03-26 16:10 | RADRPT ---
EXAM DATE/TIME: 03/26/2017 14:48 [facility] COMPARISON: No previous studies available for comparison. INDICATIONS : Suspected AML. SEDATION TIME: 20 minutes BIOPSY SITE: Left iliac wing MEDICATION(S): 1.) 4 mg midazolam (Versed) IV 2.) 250 mcg fentanyl (Sublimaze) IV DEVICE(S): 1.) 11 gauge Bone marrow biopsy needle MEDICAL HISTORY : Hypothyroidism. Hypertension. Myocardial infarction. SURGICAL HISTORY : Appendectomy. ENCOUNTER: Initial ACUITY: 1 day PAIN SCORE: 0/10 LOCATION: Bilateral pelvis A total of one core specimen(s) were obtained and sent to the laboratory for pathologic evaluation. PROCEDURE: 1. CT guided bone marrow biopsy. 2. Conscious sedation with continuous EKG and oximetry monitoring. 3. EKG and oximetry remained stable throughout the procedure. Prior to the procedure informed consent was obtained. Any appropriate prior imaging studies were rev iewed. Using automated exposure control and adjustment of the mA and/or kV according to patient size , radiation dose was kept as low as reasonably achievable to obtain optimal diagnostic quality images . DICOM format image data is available electronically for review and comparison. The site was prepped in a sterile fashion. Full sterile technique was used, including cap, mask, jose m rile gloves and gown and a large sterile sheet. Hand hygiene and 2% chlorhexidine and/or betadine/al cohol prep was utilized per protocol for cutaneous antisepsis. The skin and subcutaneous tissues wer e infiltrated with local anesthetic solution. With CT guidance the posterior left iliac bone was localized. Biopsy was performed using the prescrib ed needle as above. Following biopsy marrow aspiration was performed with repeat puncture. Adequate hemostasis was obtained with compression at the puncture site. Conscious sedation was performed with the prescribed dosages and duration as above in the presence of an independent trained radiology nurse to assist in the monitoring of the patient. EKG and oximetry remained stable throughout the procedure. The patient tolerated the procedure well and there were no complications. The patient was sent to Radiology Outpatient Unit in stable condition. CONCLUSION: 1. Uncomplicated CT guided bone marrow aspirate. 2. Uncomplicated CT guided bone marrow biopsy. Raoul Jeffries MD on March 26, 2017 at 16:08 Board Certified Radiologist. This report was verified electronically.
[2017-03-26 17:20] LABS: BONE MARROW PROCESSING COMPLETE; IRON STAIN DONE; JENNER GIEMSA STAIN DONE
[2017-03-26] MEDS: NYSTATIN SUSP 500,000 U/5 ML CUP SWISH-SWAL SCH ×2 (17:32→19:58)
[2017-03-26] MEDS: LEVOFLOXACIN 750 MG PREMIX INJ 150 ML IV SCH (19:56)
[2017-03-26] MEDS: ACETAMINOPHEN 325 MG TAB PO PRN (21:16)
[2017-03-27] VITALS (12 sets, daily range): BP systolic 79–98; BP diastolic 6–62; PULSE 76–140; RESP 16–20; TEMP 96.5–99.3; O2SAT 94–97
[2017-03-27] MEDS: MORPHINE SULFATE 4 MG/ML INJ IV PUSH PRN ×3 (02:07→09:50)
[2017-03-27] MEDS: SODIUM CHLOR 0.9% 1000 ML INJ 1,000 ML IV SCH ×4 (05:14→23:12)
[2017-03-27] MEDS: AZTREONAM INJ 2,000 MG in SODIUM CHLORIDE 0.9% INJ 100 ML IV SCH ×2 (06:03→14:54)
[2017-03-27 08:06] LABS: HEMATOCRIT 27.1 % (35.0-46.0); MEAN CELL VOLUME 89.9 FL (80.0-100.0); MEAN CORPUSCULAR HEMOGLOBIN 29.4 PG (27.0-34.0); MEAN CORPUSCULAR HGB CONC 32.7 % (32.0-36.0); PLATELET COUNT 57 TH/MM3 (150-450); RED BLOOD COUNT 3.01 MIL/MM3 (4.00-5.30); RED CELL DISTRIBUTION WIDTH 17.5 % (11.6-17.2)
[2017-03-27 08:13] LABS: HEMO FLAGS AUTO DIFF
[2017-03-27 08:21] LABS: BICARBONATE 21.1 MEQ/L (21.0-32.0); POTASSIUM 3.7 MEQ/L (3.5-5.1)
--- NOTE | 2017-03-27 08:38 | PD.ONC.PN ---
Subjective Subjective Remarks Patient seen and examined, vital signs, labs, microbiology, medications, imaging studies and overnight events reviewed. Subjectively the patient reports tolerating the bone marrow biopsy without significant difficulties, she tells me she did have achiness and pain involving the muscle groups of her neck, shoulders arm and back following the procedure. She tells me she is unable to find a comfortable position to lay on in bed and wants to know she can have her bed changed. Temperature maximum overnight was 100.6F. Blood cultures and urine culture drawn, she was initiated on IV antibiotics with aztreonam and levofloxacin. Objective Data Date Time Temp Pulse Resp B/P Pulse Ox O2 Delivery O2 Flow Rate FiO2 03/27/17 06:09 18 03/27/17 04:11 81 03/27/17 04:00 99.3 85 18 97/50 97 03/27/17 00:00 80 03/27/17 00:00 96.5 113 16 94/60 96 03/26/17 21:56 Nasal Cannula 2.00 03/26/17 20:30 131 03/26/17 20:00 100.6 112 18 98/56 97 03/26/17 17:15 97.1 127 20 111/58 94 03/26/17 17:10 94 Nasal Cannula 2.00 03/26/17 16:30 112 16 98/50 95 03/26/17 16:00 119 20 93/46 95 03/26/17 15:45 133 20 76/50 93 03/26/17 15:30 98.5 133 20 70/46 92 03/26/17 13:00 96.6 122 24 100/63 96 03/26/17 10:00 97.5 76 30 106/62 97 03/26/17 09:34 18 03/26/17 09:28 68 14 107/55 97 2 Result Diagram: 03/27/17 0740 03/27/17 0740 Laboratory Results Laboratory Tests Test 03/27/17 07:40 White Blood Count 25.0 TH/MM3 Red Blood Count 3.01 MIL/MM3 Hemoglobin 8.8 GM/DL Hematocrit 27.1 % Mean Corpuscular Volume 89.9 FL Mean Corpuscular Hemoglobin 29.4 PG Mean Corpuscular Hemoglobin 32.7 % Concent Red Cell Distribution Width 17.5 % Platelet Count 57 TH/MM3 Mean Platelet Volume 8.5 FL Neutrophils (%) (Auto) % Lymphocytes (%) (Auto) % Monocytes (%) (Auto) % Eosinophils (%) (Auto) % Basophils (%) (Auto) % Neutrophils # (Auto) TH/MM3 Lymphocytes # (Auto) TH/MM3 Monocytes # (Auto) TH/MM3 Eosinophils # (Auto) TH/MM3 Basophils # (Auto) TH/MM3 CBC Comment AUTO DIFF Sodium Level 140 MEQ/L Potassium Level 3.7 MEQ/L Chloride Level 107 MEQ/L Carbon Dioxide Level 21.1 MEQ/L Anion Gap 12 MEQ/L Blood Urea Nitrogen 15 MG/DL Creatinine 1.16 MG/DL Estimat Glomerular Filtration 47 ML/MIN Rate Random Glucose 102 MG/DL Calcium Level 7.5 MG/DL Culture Results Microbiology Date/Time Procedure Status Source Growth 03/25/17 20:20 Aerobic Blood Culture - Preliminary Resulted Blood Peripheral NO GROWTH IN 1 DAY 03/25/17 20:20 Anaerobic Blood Culture - Preliminary Resulted Blood Peripheral NO GROWTH IN 1 DAY 03/25/17 20:30 Aerobic Blood Culture - Preliminary Resulted Blood Peripheral NO GROWTH IN 1 DAY 03/25/17 20:30 Anaerobic Blood Culture - Preliminary Resulted Blood Peripheral NO GROWTH IN 1 DAY 03/25/17 21:44 Urine Culture - Preliminary Resulted Urine Random Urine IMMATURE GROWTH - REINCUBATE Administered Medications Medications (Trade) Dose Ordered Sig/Tylor Route PRN Reason Start Time Stop Time Status Last Admin Dose Admin Sodium Chloride (NS 1000 ml Inj) 1,000 ml @ 100 mls/hr Q10H IV 03/25/17 23:14 03/27/17 05:14 Sodium Chloride (NS Flush) 2 ml BID IV FLUSH 03/26/17 09:00 03/26/17 19:57 Acetaminophen (Tylenol) 650 mg Q4H PRN PO TEMP > 100.4 03/25/17 23:15 03/26/17 21:16 Acetaminophen 650 mg 650 mg Q6H PRN PO PAIN SCALE 1 TO 2 03/25/17 23:15 03/26/17 08:14 Aztreonam 2000 mg/ Sodium Chloride 100 ml @ 200 mls/hr Q8H IV 03/26/17 07:00 03/27/17 06:03 Levofloxacin/ Dextrose (Levaquin 750 Mg Premix Inj) 150 ml @ 100 mls/hr Q24H IV 03/26/17 21:00 7/31/17 19:56 Famotidine (Pepcid) 10 mg BID PO 03/26/17 09:00 03/26/17 19:56 Morphine Sulfate (Morphine Inj) 2 mg Q3H PRN IV PUSH pain 3-10 03/25/17 23:30 03/27/17 06:03 Temazepam (Restoril) 15 mg HS PRN PO insomnia 03/26/17 00:30 03/26/17 21:16 Allopurinol (Zyloprim) 100 mg BID PO 03/26/17 09:00 03/26/17 19:56 Nystatin (Mycostatin Liq) 5 ml QID SWISH-SWAL 03/26/17 18:00 03/26/17 17:32 Objective Remarks GENERAL PHYSICAL APPEARANCE: Ms. Richard is a middle-aged female, she is of medium height and is heavy-set. She is laying in bed and is in no acute distress. HEENT: Head is atraumatic, normocephalic, conjunctivae are pale. Sclerae are anicteric, EOMI, PERRLA. ORAL EXAM: She has thrush noted. NECK: No cervical lymphadenopathy. RESPIRATORY: Good air movement bilaterally. No added breath sounds. CARDIOVASCULAR: Regular rate and rhythm, S1-S2. No obvious rubs or gallops. She does have a systolic murmur heard over the aortic area. ABDOMEN: Obese belly, soft and nontender, nondistended. No palpable organ enlargement. LOWER EXTREMITIES: No pretibial edema or calf tenderness. MUSCULOSKELETAL: Adequate muscle mass, tone and strength. Assessment/Plan Assessment Ms. Richard is a 66-year-old female with a 3-week history of progressive malaise, fatigue and weakness. She reports soreness of the throat and a dry cough, both of which have been chronic. She presented to the emergency department for further workup and management because her symptoms of fatigue progressed to the point where she had difficulty walking from her bedroom to her restroom. She called EMS last night due to the severity of the symptoms. Blood work performed in the emergency department indicates findings consistent with anemia, thrombocytopenia, her WBCs are grossly abnormal with findings of numerous immature cells and blasts in the peripheral circulation. 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 Peripheral smear was formally reviewed by our hematocrit pathologist who assessed the findings to be consistent with a high- grade myeloid malignancy most consistent with acute myeloid leukemia. Await bone marrow aspiration Flow Cytometry and review of the core biopsy for further characterization. Plan 1. High-grade myeloid malignancy associated with increased circulating myeloid blast cells: Likely diagnosis is acute myeloid leukemia, await pathologic confirmation. 2. Obtain echocardiogram to assess cardiac function prior to initiating will most likely be anthracycline -based systemic therapy. 3. Obtain secure access; PICC line to be placed today. 4. Elevated uric acid levels and LDH: Patient at increased risk for tumor lysis syndrome once treatment starts. I have therefore initiated her on allopurinol 100 mg by mouth twice a day. Continue IV fluid hydration. 5. Mild renal dysfunction: Continue hydration and monitor renal function. 6. Low-grade temperature overnight: Continue coverage with estrogen and levofloxacin empirically for the time being. All cultures remain negative at this point. Roberto Yarbrough MD Mar 27, 2017 08:38
[2017-03-27] MEDS: NYSTATIN SUSP 500,000 U/5 ML CUP SWISH-SWAL SCH ×4 (08:40→21:31)
[2017-03-27] MEDS: SODIUM CHLORIDE 0.9% FLUSH 10 ML FLUSH IV FLUSH SCH ×2 (08:40→21:31)
[2017-03-27] MEDS: FAMOTIDINE 20 MG TAB PO SCH ×2 (08:40→21:31)
[2017-03-27] MEDS: ALLOPURINOL 100 MG TAB PO SCH ×2 (08:40→21:31)
[2017-03-27 08:49] LABS: BANDS 1 % (0-6); BLASTS 36 % (0-0); CORRECTED NUCLEATED RBC 2 /100 WBC (0-0); METAMYELOCYTES 2 % (0-1); MYELOCYTES 6 % (0-0); NEUTROPHIL # MANUAL DIFF 9.8 TH/MM3 (1.8-7.7); POLYS (SEG NEUTROPHILS) 30 % (16-70); WBC DIFF SAMPLE 100
[2017-03-27 08:50] LABS: PLATELET ESTIMATE SMEAR LOW (NORMAL); PLATELET MORPHOLOGY NORMAL (NORMAL); SCAN/DIFF FINAL DIFF MANUAL
--- NOTE | 2017-03-27 11:46 | ECHRPT ---
Indication: SOB CONCLUSIONS Normal left ventricular size. Mild concentric left ventricular hypertrophy. The left ventricular systolic function is normal with an estimated ejection fraction in the range of 55-60%. Moderately dilated ascending aorta measuring 4.3 cm Aortic valve sclerosis is present. Trace aortic valve regurgitation. BP: 111 / 58 HR: 133 Rhythm: Sinus MEASUREMENTS (Male / Female) Normal Values Technical Quality:Fair 2D ECHO LV Diastolic Diameter PLAX 3.8 cm 4.2 - 5.9 / 3.9 - 5.3 cm LV Systolic Diameter PLAX 2.9 cm IVS Diastolic Thickness 1.2 cm 0.6 - 1.0 / 0.6 - 0.9 cm LVPW Diastolic Thickness 0.9 cm 0.6 - 1.0 / 0.6 - 0.9 cm LV Relative Wall Thickness 0.5 LA Systolic Diameter LX 3.8 cm 3.0 - 4.0 / 2.7 - 3.8 cm DOPPLER AV Peak Velocity 174.0 cm/s AV Peak Gradient 12.1 mmHg MV Peak Velocity 129.0 cm/s MV Peak Gradient 6.7 mmHg MV Mean Velocity 69.2 cm/s MV Mean Gradient 2.0 mmHg Mitral E Point Velocity 114.0 cm/s TR Peak Velocity 259.0 cm/s TR Peak Gradient 26.8 mmHg FINDINGS LEFT VENTRICLE Normal left ventricular size. Mild concentric left ventricular hypertrophy. The left ventricular systolic function is normal with an estimated ejection fraction in the range of 55-60%. RIGHT VENTRICLE Normal right ventricular size and systolic function. LEFT ATRIUM The left atrial size is normal. RIGHT ATRIUM The right atrial size is normal. ATRIAL SEPTUM Normal atrial septal thickness without atrial level shunting by limited color doppler interrogation. AORTA Moderately dilated proximal ascending aorta measuring 4.3 cm MITRAL VALVE Structurally normal mitral valve. No mitral valve stenosis or regurgitation. AORTIC VALVE Aortic valve sclerosis is present. Trace aortic valve regurgitation. TRICUSPID VALVE Structurally normal tricuspid valve. No tricuspid valve stenosis or regurgitation. PULMONARY VALVE The pulmonary valve is not well visualized. VESSELS The inferior vena cava is normal in size. PERICARDIUM No pericardial effusion. OTHER FINDINGS Difficult study Natalia Garcia MD, FACC (Electronically Signed) Final Date:27 March 2017 11:45
[2017-03-27] MEDS: ACETAMINOPHEN/HYDROcodone 325 MG/7.5 MG TAB PO PRN ×2 (12:09→17:52)
--- NOTE | 2017-03-27 13:39 | HHI.PR ---
Subjective Subjective Remarks had bone marrow bx, having pain to back, hip feels weak no cp some cough tachycardic on monitor, HR 130s, irregular, ST with PACs BP 90-100s temp last night 100.6 daughter at bsd, multiple questions about treatment, prognosis. Pt. not sure that she wants to do. Asking about quality of life and whether she can tolerate treatment. Review of Systems Constitutional Constitutional Remarks 12 point ros completed, negative except as noted above Vitals/Results Intake & Output 03/26/17 03/26/17 03/27/17 15:00 23:00 07:00 Intake Total 30 ml 1602 ml Balance 30 ml 1602 ml Intake Oral 30 ml 250 ml IV Total 1352 ml # Voids 3 1 # Bowel Movements 0 Vital Signs Vital Signs Date Time Temp Pulse Resp B/P Pulse Ox O2 Delivery O2 Flow Rate FiO2 03/27/17 12:06 140 03/27/17 08:00 136 03/27/17 08:00 98.3 135 20 98/62 97 03/27/17 08:00 97 Nasal Cannula 2.00 03/27/17 06:09 18 03/27/17 04:11 81 03/27/17 04:00 99.3 85 18 97/50 97 03/27/17 00:00 80 03/27/17 00:00 96.5 113 16 94/60 96 03/26/17 21:56 Nasal Cannula 2.00 03/26/17 20:30 131 03/26/17 20:00 100.6 112 18 98/56 97 03/26/17 17:15 97.1 127 20 111/58 94 03/26/17 17:10 94 Nasal Cannula 2.00 03/26/17 16:30 112 16 98/50 95 03/26/17 16:00 119 20 93/46 95 03/26/17 15:45 133 20 76/50 93 03/26/17 15:30 98.5 133 20 70/46 92 CBC/BMP: 03/27/17 0740 03/27/17 0740 Lab Results Laboratory Tests Test 03/27/17 07:40 White Blood Count 25.0 TH/MM3 Red Blood Count 3.01 MIL/MM3 Hemoglobin 8.8 GM/DL Hematocrit 27.1 % Mean Corpuscular Volume 89.9 FL Mean Corpuscular Hemoglobin 29.4 PG Mean Corpuscular Hemoglobin 32.7 % Concent Red Cell Distribution Width 17.5 % Platelet Count 57 TH/MM3 Mean Platelet Volume 8.5 FL Neutrophils (%) (Auto) % Lymphocytes (%) (Auto) % Monocytes (%) (Auto) % Eosinophils (%) (Auto) % Basophils (%) (Auto) % Neutrophils # (Auto) TH/MM3 Lymphocytes # (Auto) TH/MM3 Monocytes # (Auto) TH/MM3 Eosinophils # (Auto) TH/MM3 Basophils # (Auto) TH/MM3 CBC Comment AUTO DIFF Differential Total Cells 100 Counted Neutrophils % (Manual) 30 % Band Neutrophils % 1 % Lymphocytes % 15 % Monocytes % 10 % Neutrophils # (Manual) 9.8 TH/MM3 Metamyelocytes 2 % Myelocytes 6 % Nucleated Red Blood Cells 2 /100 WBC Differential Comment FINAL DIFF MANUAL Blastocytes 36 % Platelet Estimate LOW Platelet Morphology Comment NORMAL Sodium Level 140 MEQ/L Potassium Level 3.7 MEQ/L Chloride Level 107 MEQ/L Carbon Dioxide Level 21.1 MEQ/L Anion Gap 12 MEQ/L Blood Urea Nitrogen 15 MG/DL Creatinine 1.16 MG/DL Estimat Glomerular Filtration 47 ML/MIN Rate Random Glucose 102 MG/DL Calcium Level 7.5 MG/DL Physical Exam General General Appearance: Well Developed, Well Nourished, No Acute Distress, Comfortable, Obese Eyes Eye Exam: Pupils Equal, Pupils Reactive Ears & Nose Ears & Nose Exam: Nasal Mucosa Wittmann Throat Throat Exam: Oral Mucosa Wittmann & Moist Neck Neck Exam: Neck Supple, Trachea Midline Pulmonary Resp Exam: Breath Sounds Equal, Decreased Bases Cardiology CV Exam: Irregular, Arrhythmia, Tachycardia Gastrointestinal/Abdomen GI Exam: Soft, Non-Tender, Bowel Sounds Present, Non-Distended Musculoskeletal MS Exam: Joints Intact Integumentary Skin Exam: Warm, Dry Extremeties Extremities Exam: No Edema, Pedal Pulses Palpable Neurologic Neuro Exam: Alert, Awake, Oriented, Speech Clear, Moving All Extremities, No Focal Deficits Psychiatric Psych Exam: Appropriate Responses VTE Prophylaxis VTE Prophylaxis Device: SCDs Assessment/Plan Problem List: (1) Sepsis (2) Anemia (3) Thrombocytopenia (4) Elevated white blood cell count (5) Pneumonia (6) CKD (chronic kidney disease) stage 3, GFR 30-59 ml/min (7) AML (acute myeloid leukemia) (8) Low blood pressure (9) Tachycardia (10) Hx TIA/stroke w/o resid (11) hx cerebral aneurysm Assessment/Plan 66-year-old female admitted with sepsis, fever, malaise, fatigue. Found with pneumonia, leukocytosis, anemia, thrombocytopenia. Early sepsis, pneumonia Continue with antibiotics, Azactam and Levaquin Continue with supplemental oxygen Follow cultures -Continue DuoNeb's as needed -Remains with significant leukocytosis, monitor WBC. Patient is noted tachycardic with hypotension, we'll increase IV fluids, normal saline 125 an hour Fatigue malaise, noted with significant WBC abnormalities. Possible acute myeloid leukemia. Status post bone marrow biopsy 03/26/[address] Yarbrough's input, awaiting bone marrow aspiration foci telemetry and review core biopsy. -Has order echocardiogram to evaluate cardiac function prior to to initiating treatment. -Started on allopurinol, patient noted with elevated uric acid level in ADH. Patient at risk for tumor lysis syndrome once treatment begins. Continue with hydration. Tachycardia, with frequent PACs -12-lead EKG now Patient on beta blockers, at this time unable to restart because of low blood pressure We will increase IV fluids, possibly dehydrated. Back pain, s/p bone marrow bx -Pain management CKD stage III Continue with hydration Follow BMP History of TIA History of cerebral aneurysm Monitor neuro status Control blood pressure Avoid anticoagulants due to thrombocytopenia, SCDs for DVT prophylaxis Pepcid for GI prophylaxis PT for eval and treatment Bowel regimen PRN ordered Patient's condition guarded Plan of care has been discussed in detail with the patient and her daughter, their questions have been answered in detail. I have recommended that they direct questions about chemotherapy treatment, prognosis and length of treatment to Dr. Yarbrough. Patient is not sure that she wants to proceed with treatment, concerned how will affect her quality of life and whether it will extend her life at all. Emotional support provided, questions answered. I have encouraged that they ask questions of Dr. Yarbrough when he does rounds. They both verbalize understanding and are grateful for the information provided D/W pt and family D/W Dr. Duffy D/W RN This patient was seen by myself and Dr. Duffy, this note is written on his behalf Problem Qualifiers (1) Sepsis: Qualified Code: A41.9 - Sepsis, due to unspecified organism (2) Anemia: Qualified Code: D64.9 - Anemia, unspecified type (3) Elevated white blood cell count: Qualified Code: D72.829 - Leukocytosis, unspecified type (4) Pneumonia: Qualified Code: J18.1 - Pneumonia of left lower lobe due to infectious organism (5) Low blood pressure: Qualified Code: I95.9 - Hypotension, unspecified hypotension type Tina Blair [facility] Mar 27, 2017 13:39
[2017-03-27] MEDS: ONDANSETRON HCL 4 MG/2 ML VIAL IVP PRN ×2 (14:32→21:26)
[2017-03-27] MEDS: TERAZOSIN HCL 5 MG CAP PO SCH (17:52)
--- NOTE | 2017-03-27 18:44 | HHI.PR ---
Addendum to Inpatient Note Addendum Reason: Additional Documentation Additional Information ANY S: Residents paged to bedside for incental finding of hypotension of 70/59 and tachycardia up to 140 on routine vitals check. Patient notes some dizziness/ weakness in addition to her usual shortness of breath and back pain/sciatic pain. She denies any chest pain, fever, chills, abdominal pain, or confusion. Her daughters are at bedside. Patient states that she has not eaten a full meal in 13 days. She states that every time she tries to eat solid food she experiences nausea and vomiting. O: GENERAL: SKIN: Warm and dry. HEAD: Atraumatic. Normocephalic. EYES: Pupils equal and round. No scleral icterus. No injection or drainage. ENT: No nasal bleeding or discharge. Mucous membranes pink and moist. NECK: Trachea midline. No JVD. CARDIOVASCULAR: Regular rate and rhythm. No murmur. RESPIRATORY: No accessory muscle use. Diminished breath sounds in the bases bilaterally. Anterior lung atkins clear. No wheezes or rales. Breath sounds equal bilaterally. GASTROINTESTINAL: Abdomen soft, non-tender, nondistended. MUSCULOSKELETAL: Extremities without clubbing, cyanosis, or edema. No obvious deformities. NEUROLOGICAL: Awake, alert, oriented x 3. No obvious cranial nerve deficits. Motor grossly within normal limits. Normal speech. PSYCHIATRIC: Appropriate mood and affect; insight and judgment normal. A/P: Hypotension likely secondary to malnourishment/dehydration in the setting of newly diagnosed AML and pneumonia. Clinically appears well but fatigued on exam. Repeat BP's in the 80/50's. BP cuff adjusted and repeat blood pressures consistently 80/50's. Manual BP was 84/53. Patient conversing without difficulty, alert and oriented. Will give 1L NS bolus and re-evaluate. fraciscow Dr. Rice R1 Mandy Lopez MD R2 Mar 27, 2017 18:44
[2017-03-27] MEDS ORDERED: SODIUM CHLOR 0.9% 1000 ML INJ 1,000 ML IV ONE (18:45)
[2017-03-27] MEDS: lamoTRIgine 25 MG TAB PO SCH (21:00)
[2017-03-27] MEDS: TEMAZEPAM 15 MG CAP PO PRN (21:30)
[2017-03-27] MEDS: LEVOFLOXACIN 750 MG PREMIX INJ 150 ML IV SCH (21:30)
[2017-03-28] VITALS (21 sets, daily range): BP systolic 90–119; BP diastolic 50–71; PULSE 77–130; RESP 16–20; TEMP 96.8–99.1; O2SAT 93–98
[2017-03-28] MEDS: AZTREONAM INJ 2,000 MG in SODIUM CHLORIDE 0.9% INJ 100 ML IV SCH ×4 (00:34→23:20)
[2017-03-28] MEDS: SODIUM CHLOR 0.9% 1000 ML INJ 1,000 ML IV SCH ×3 (00:40→18:52)
[2017-03-28] MEDS: ACETAMINOPHEN/HYDROcodone 325 MG/7.5 MG TAB PO PRN ×2 (01:22→06:35)
[2017-03-28] MEDS: LEVOTHYROXINE SODIUM 100 MCG TAB PO SCH (06:34)
[2017-03-28] MEDS: ONDANSETRON HCL 4 MG/2 ML VIAL IVP PRN (06:36)
[2017-03-28 07:57] LABS: HEMATOCRIT 24.7 % (35.0-46.0); MEAN CELL VOLUME 89.6 FL (80.0-100.0); MEAN CORPUSCULAR HEMOGLOBIN 29.7 PG (27.0-34.0); MEAN CORPUSCULAR HGB CONC 33.2 % (32.0-36.0); PLATELET COUNT 47 TH/MM3 (150-450); RED BLOOD COUNT 2.75 MIL/MM3 (4.00-5.30); RED CELL DISTRIBUTION WIDTH 18.4 % (11.6-17.2); WHITE BLOOD COUNT 22.5 TH/MM3 (4.0-11.0)
[2017-03-28 08:06] LABS: HEMO FLAGS AUTO DIFF
[2017-03-28 08:17] LABS: BICARBONATE 23.3 MEQ/L (21.0-32.0); POTASSIUM 3.5 MEQ/L (3.5-5.1)
--- NOTE | 2017-03-28 08:25 | PD.ONC.PN ---
Subjective Subjective Remarks Patient seen and examined, vital signs, labs, medications and microbiology reviewed. Echocardiogram performed on 03/27/2017 was also reviewed. Overnight, the patient was noted to be hypotensive with systolic blood pressure is low 70, she had atrial fibrillation with RVR. She was evaluated by the in-house family medicine residents and was given IV fluid hydration with a bolus dose of 1000 mL normal saline. Her blood pressure following that stabilized, and her heart rate decreased. This morning she remains in A. fib with a ventricular rate ranging between 120 and 135. Subjectively, the patient tells me she feels weak, she feel short of breath with minimal exertion. She tells me she had transient periods of chest pressure and pain yesterday. She denies fevers or chills. Her major complaint other than the cardiac issues is that of chronic lower back pain with radiation down the right and the left thighs. Objective Data Date Time Temp Pulse Resp B/P Pulse Ox O2 Delivery O2 Flow Rate FiO2 03/28/17 05:45 98 Nasal Cannula 2.00 03/28/17 04:00 96.8 80 17 107/58 94 03/28/17 02:22 18 03/28/17 00:01 77 03/28/17 00:00 97.1 79 18 93/54 97 03/27/17 20:11 76 03/27/17 20:00 97.2 129 18 93/52 94 03/27/17 18:15 97 2.00 03/27/17 18:04 79/53 03/27/17 16:37 128 03/27/17 16:00 98.5 130 20 86/53 96 03/27/17 12:06 140 03/27/17 12:00 98.8 131 20 81/50 95 Result Diagram: 03/28/17 0638 03/28/17 0638 Laboratory Results Laboratory Tests Test 03/28/17 06:38 White Blood Count 22.5 TH/MM3 Red Blood Count 2.75 MIL/MM3 Hemoglobin 8.2 GM/DL Hematocrit 24.7 % Mean Corpuscular Volume 89.6 FL Mean Corpuscular Hemoglobin 29.7 PG Mean Corpuscular Hemoglobin 33.2 % Concent Red Cell Distribution Width 18.4 % Platelet Count 47 TH/MM3 Mean Platelet Volume 8.7 FL Neutrophils (%) (Auto) % Lymphocytes (%) (Auto) % Monocytes (%) (Auto) % Eosinophils (%) (Auto) % Basophils (%) (Auto) % Neutrophils # (Auto) TH/MM3 Lymphocytes # (Auto) TH/MM3 Monocytes # (Auto) TH/MM3 Eosinophils # (Auto) TH/MM3 Basophils # (Auto) TH/MM3 CBC Comment AUTO DIFF Sodium Level 141 MEQ/L Potassium Level 3.5 MEQ/L Chloride Level 108 MEQ/L Carbon Dioxide Level 23.3 MEQ/L Anion Gap 10 MEQ/L Blood Urea Nitrogen 13 MG/DL Creatinine 1.11 MG/DL Estimat Glomerular Filtration 49 ML/MIN Rate Random Glucose 90 MG/DL Calcium Level 7.5 MG/DL Culture Results Microbiology Date/Time Procedure Status Source Growth 03/25/17 20:20 Aerobic Blood Culture - Preliminary Resulted Blood Peripheral NO GROWTH IN 2 DAYS 03/25/17 20:20 Anaerobic Blood Culture - Preliminary Resulted Blood Peripheral NO GROWTH IN 2 DAYS 03/25/17 20:30 Aerobic Blood Culture - Preliminary Resulted Blood Peripheral NO GROWTH IN 2 DAYS 03/25/17 20:30 Anaerobic Blood Culture - Preliminary Resulted Blood Peripheral NO GROWTH IN 2 DAYS 03/25/17 21:44 Urine Culture - Final Complete Urine Random Urine 50-100,000 CFU/ML MIXED GRAM POSITIVE... Administered Medications Medications (Trade) Dose Ordered Sig/Tylor Route PRN Reason Start Time Stop Time Status Last Admin Dose Admin Sodium Chloride (NS 1000 ml Inj) 1,000 ml @ 83 mls/hr Q12H3M IV 03/25/17 23:14 03/28/17 00:40 Sodium Chloride (NS Flush) 2 ml BID IV FLUSH 03/26/17 09:00 03/27/17 21:31 Acetaminophen (Tylenol) 650 mg Q4H PRN PO TEMP > 100.4 03/25/17 23:15 03/26/17 21:16 Ondansetron HCl (Zofran Inj) 4 mg Q6H PRN IVP NAUSEA OR VOMITING 03/25/17 23:15 03/28/17 06:36 Acetaminophen 650 mg 650 mg Q6H PRN PO PAIN SCALE 1 TO 2 03/25/17 23:15 03/26/17 08:14 Aztreonam/Sodium Chloride (Azactam Inj/NS Inj) 100 ml @ 200 mls/hr Q8H IV 03/26/17 07:00 03/28/17 06:35 Famotidine (Pepcid) 10 mg BID PO 03/26/17 09:00 03/27/17 21:31 Morphine Sulfate (Morphine Inj) 2 mg Q3H PRN IV PUSH pain 3-10 03/25/17 23:30 03/27/17 09:50 Temazepam (Restoril) 15 mg HS PRN PO insomnia 03/26/17 00:30 03/27/17 21:30 Allopurinol (Zyloprim) 100 mg BID PO 03/26/17 09:00 03/27/17 21:31 Nystatin (Mycostatin Liq) 5 ml QID SWISH-SWAL 03/26/17 18:00 03/27/17 21:31 Acetaminophen/ Hydrocodone Bitart (Henderson 7.5-325 Mg) 1 tab Q4H PRN PO PAIN 4-6 03/27/17 11:15 03/28/17 06:35 Levothyroxine Sodium (Synthroid) 100 mcg DAILY@06 PO 03/28/17 06:00 03/28/17 06:34 Objective Remarks GENERAL PHYSICAL APPEARANCE: Ms. Richard is a middle-aged female, she is of medium height and is heavy-set. She is laying in bed and is in no acute distress. HEENT: Head is atraumatic, normocephalic, conjunctivae are pale. Sclerae are anicteric, EOMI, PERRLA. ORAL EXAM: She has thrush noted. NECK: No cervical lymphadenopathy. RESPIRATORY: Good air movement bilaterally. No added breath sounds. CARDIOVASCULAR: Irregular rhythm, tachycardic, distant sounding heart sounds. rubs or gallops. She does have a systolic murmur heard over the aortic area. ABDOMEN: Obese belly, soft and nontender, nondistended. No palpable organ enlargement. LOWER EXTREMITIES: No pretibial edema or calf tenderness. MUSCULOSKELETAL: Adequate muscle mass, tone and strength. Assessment/Plan Assessment Ms. Richard is a 66-year-old female with a 3-week history of progressive malaise, fatigue and weakness. She reports soreness of the throat and a dry cough, both of which have been chronic. She presented to the emergency department for further workup and management because her symptoms of fatigue progressed to the point where she had difficulty walking from her bedroom to her restroom. She called EMS last night due to the severity of the symptoms. Blood work performed in the emergency department indicates findings consistent with anemia, thrombocytopenia, her WBCs are grossly abnormal with findings of numerous immature cells and blasts in the peripheral circulation. 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 Peripheral smear was formally reviewed by our hematocrit pathologist who assessed the findings to be consistent with a high- grade myeloid malignancy most consistent with acute myeloid leukemia. Await bone marrow aspiration Flow Cytometry and review of the core biopsy for further characterization. Plan 1. High-grade myeloid malignancy associated with increased circulating myeloid blast cells: Likely diagnosis is acute myeloid leukemia, await pathologic confirmation. I did speak to our send out lab pathologist, based on bone marrow flow cytometry and bone marrow aspiration smear the patient either has early acute myeloid leukemia versus a high-grade myelodysplastic syndrome such as RAEB-2. Pathologists at [facility] are currently staining her bone marrow core biopsy with myeloid blast stains and will manually count the blasts to assess blast percentage. This will be the gold standard in determining whether this patient has acute myeloid leukemia versus a high-grade myelodysplastic syndrome. 2. A. fib with RVR associated with transient chest pain: 12-lead EKG ordered, cardiology evaluation ordered. Magnesium 1 g IV times one ordered. 3. Elevated uric acid levels and LDH: Patient at increased risk for tumor lysis syndrome once treatment starts. I have therefore initiated her on allopurinol 100 mg by mouth twice a day. Continue IV fluid hydration. 5. Mild renal dysfunction: Continue hydration and monitor renal function. 6. Isolated temperature 48 hours ago: On aztreonam, levofloxacin discontinued. Roberto Yarbrough MD Mar 28, 2017 08:25
[2017-03-28] MEDS: ALLOPURINOL 100 MG TAB PO SCH ×2 (08:54→21:24)
[2017-03-28] MEDS: SODIUM CHLORIDE 0.9% FLUSH 10 ML FLUSH IV FLUSH SCH ×2 (08:54→21:24)
[2017-03-28] MEDS: ATORVASTATIN 40 MG TAB PO SCH (08:54)
[2017-03-28] MEDS: NYSTATIN SUSP 500,000 U/5 ML CUP SWISH-SWAL SCH ×4 (08:54→21:24)
[2017-03-28] MEDS: MAGNESIUM SULFATE 1 GM PREMIX 100 ML IV SCH ×2 (08:54→10:26)
[2017-03-28] MEDS: FAMOTIDINE 20 MG TAB PO SCH ×2 (08:54→21:24)
--- NOTE | 2017-03-28 09:51 | HHI.PR ---
Subjective Subjective Remarks Afib RVR last night, hypotensive Hallicat called, bolused with 1 liter remains afib, HR 130s BP 100s mild chest pain anxious nauseous back pain daughter at bsd Review of Systems Constitutional Constitutional Remarks 12 point ros completed, negative except as noted above Vitals/Results Intake & Output 03/27/17 03/27/17 03/28/17 15:00 23:00 07:00 Intake Total 240 ml Balance 240 ml Intake Oral 240 ml # Voids 2 3 Vital Signs Vital Signs Date Time Temp Pulse Resp B/P Pulse Ox O2 Delivery O2 Flow Rate FiO2 03/28/17 08:00 97.8 97 20 90/58 96 03/28/17 05:45 98 Nasal Cannula 2.00 03/28/17 04:00 96.8 80 17 107/58 94 03/28/17 02:22 18 03/28/17 00:01 77 03/28/17 00:00 97.1 79 18 93/54 97 03/27/17 20:11 76 03/27/17 20:00 97.2 129 18 93/52 94 03/27/17 18:15 97 2.00 03/27/17 18:04 79/53 03/27/17 16:37 128 03/27/17 16:00 98.5 130 20 86/53 96 03/27/17 12:06 140 03/27/17 12:00 98.8 131 20 81/50 95 CBC/BMP: 03/28/17 0638 03/28/17 0638 Lab Results Laboratory Tests Test 03/28/17 06:38 White Blood Count 22.5 TH/MM3 Red Blood Count 2.75 MIL/MM3 Hemoglobin 8.2 GM/DL Hematocrit 24.7 % Mean Corpuscular Volume 89.6 FL Mean Corpuscular Hemoglobin 29.7 PG Mean Corpuscular Hemoglobin 33.2 % Concent Red Cell Distribution Width 18.4 % Platelet Count 47 TH/MM3 Mean Platelet Volume 8.7 FL Neutrophils (%) (Auto) % Lymphocytes (%) (Auto) % Monocytes (%) (Auto) % Eosinophils (%) (Auto) % Basophils (%) (Auto) % Neutrophils # (Auto) TH/MM3 Lymphocytes # (Auto) TH/MM3 Monocytes # (Auto) TH/MM3 Eosinophils # (Auto) TH/MM3 Basophils # (Auto) TH/MM3 CBC Comment AUTO DIFF Sodium Level 141 MEQ/L Potassium Level 3.5 MEQ/L Chloride Level 108 MEQ/L Carbon Dioxide Level 23.3 MEQ/L Anion Gap 10 MEQ/L Blood Urea Nitrogen 13 MG/DL Creatinine 1.11 MG/DL Estimat Glomerular Filtration 49 ML/MIN Rate Random Glucose 90 MG/DL Calcium Level 7.5 MG/DL Physical Exam General General Appearance: Well Developed, Well Nourished, No Acute Distress, Comfortable, Obese Eyes Eye Exam: Pupils Equal, Pupils Reactive Ears & Nose Ears & Nose Exam: Nasal Mucosa Tat [place] Throat Throat Exam: Oral Mucosa Tat [place] & Moist Neck Neck Exam: Neck Supple, Trachea Midline Pulmonary Resp Exam: Breath Sounds Equal, Decreased Bases Cardiology CV Exam: Irregular, Arrhythmia, Tachycardia Gastrointestinal/Abdomen GI Exam: Soft, Non-Tender, Bowel Sounds Present, Non-Distended Musculoskeletal MS Exam: Joints Intact Integumentary Skin Exam: Warm, Dry Extremeties Extremities Exam: No Edema, Pedal Pulses Palpable Neurologic Neuro Exam: Alert, Awake, Oriented, Speech Clear, Moving All Extremities, No Focal Deficits Psychiatric Psych Exam: Appropriate Responses VTE Prophylaxis VTE Prophylaxis Device: SCDs Assessment/Plan Problem List: (1) Sepsis (2) Anemia (3) Thrombocytopenia (4) Elevated white blood cell count (5) Pneumonia (6) CKD (chronic kidney disease) stage 3, GFR 30-59 ml/min (7) AML (acute myeloid leukemia) (8) Low blood pressure (9) Tachycardia (10) Hx TIA/stroke w/o resid (11) hx cerebral aneurysm (12) Atrial fibrillation with RVR Assessment/Plan 66-year-old female admitted with sepsis, fever, malaise, fatigue. Found with pneumonia, leukocytosis, anemia, thrombocytopenia. Early sepsis, pneumonia Continue with antibiotics, Azactam, off Levaquin Continue with supplemental oxygen Follow cultures-negative so far -Continue DuoNeb's as needed -WBC trending down 22.5 Fatigue malaise, noted with significant WBC abnormalities. Possible acute myeloid leukemia. Pancytopenia Status post bone marrow biopsy 03/26/[address] Yarbrough's input, preliminary based on bone marrow flow cytometry and bone marrow aspiration smear the patient either has early acute myeloid leukemia versus a high-grade myelodysplastic syndrome such as RAEB-2. -Echo done, EF 55% -Started on allopurinol, patient noted with elevated uric acid level in ADH. Patient at risk for tumor lysis syndrome once treatment begins. Continue with hydration. -Plat 47, HH 8.2/24.7 Afib RVR, hypotension, CP Hallicat last night due to hypotension and afib rvr, bolused -Cardiology consult, d/w Dr. Jefferson, will start Amiodarone gtt -transfer to [facility] now Patient on beta blockers, at this time unable to restart because of low blood pressure -continues with HR 130s, BP marginal 100-120s, will given another 500 cc bolus Back pain, s/p bone marrow bx -[facility] [place], can't have Morphine due to low bp -add Ativan PRN CKD stage III Continue with hydration stable History of TIA History of cerebral aneurysm Monitor neuro status Control blood pressure Avoid anticoagulants due to thrombocytopenia, SCDs for DVT prophylaxis Pepcid for GI prophylaxis PT for eval and treatment Bowel regimen PRN ordered Patient's condition guarded Labs in am tx to [facility] condition guarded D/W pt and family D/W Dr. Duffy/Dr. Jefferson D/W RN This patient was seen by myself and Dr. Duffy, this note is written on his behalf Problem Qualifiers (1) Sepsis: Qualified Code: A41.9 - Sepsis, due to unspecified organism (2) Anemia: Qualified Code: D64.9 - Anemia, unspecified type (3) Elevated white blood cell count: Qualified Code: D72.829 - Leukocytosis, unspecified type (4) Pneumonia: Qualified Code: J18.1 - Pneumonia of left lower lobe due to infectious organism (5) Low blood pressure: Qualified Code: I95.9 - Hypotension, unspecified hypotension type Tina Blair Mar 28, 2017 09:51 Tina Blair Mar 28, 2017 09:51
[2017-03-28 09:57] LABS: BLASTS 19 % (0-0); METAMYELOCYTES 1 % (0-1); MYELOCYTES 4 % (0-0); NEUTROPHIL # MANUAL DIFF 9.7 TH/MM3 (1.8-7.7); WBC DIFF SAMPLE 100
[2017-03-28 09:59] LABS: POLYS (SEG NEUTROPHILS) 38 % (16-70)
[2017-03-28 10:00] LABS: PLATELET ESTIMATE SMEAR LOW (NORMAL); PLATELET MORPHOLOGY NORMAL (NORMAL)
[2017-03-28] MEDS ORDERED: SODIUM CHLORID 0.9% 500 ML INJ 500 ML IV ONE (10:00)
[2017-03-28 10:01] LABS: SCAN/DIFF FINAL DIFF MANUAL
--- NOTE | 2017-03-28 10:20 | MB ---
cc: DEON ZAZUETA M.D. DATE OF CONSULTATION: 03/28/2017 REASON FOR CONSULTATION Atrial fibrillation. HISTORY OF PRESENT ILLNESS The patient is a 66-year-old female with a history of hyperlipidemia, pancreatitis, hypertension, hypothyroidism, intracerebral aneurysm, remote history of severe gastritis, who presented to the hospital with a several-week history of worsening fatigue and dyspnea on exertion. 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 Sometime this morning she developed atrial fibrillation with a rapid ventricular response. The patient has noted intermittent fluttering palpitations without associated lightheadedness, syncope or near-syncope. For the past several weeks she has had considerable dyspnea with minimal to mild exertion. Yesterday evening she developed bilateral arm burning followed shortly thereafter by a substernal chest tightness. These symptoms lasted about two minutes. She had about three or four similar episodes in the next few hours. The patient has noted similar symptoms of arm burning and chest tightness at home, although only two or three episodes in the last few months. She denies pedal edema, paroxysmal nocturnal dyspnea or orthopnea. The chest discomfort yesterday was not pleuritic. PAST MEDICAL HISTORY 1. Severe gastritis demonstrated by upper endoscopy 2001. 2. Hyperlipidemia. 3. Acute pancreatitis April 2011. 4. Hypertension. 5. Hypothyroidism. 6. 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 She had another 3 small aneurysms reportedly seen on 10/2015 MRA but not mentioned/seen in the 04/04/16 report. PAST SURGICAL HISTORY 1. Appendectomy. 2. section. 3. Varicose vein stripping of the left lower extremity. MEDICATIONS Cardiac medications at home: 1. Atorvastatin 40 mg q. daily. 2. Tenormin 50 mg b.i.d. 3. Zestoretic 15/08.5, one b.i.d. 4. Terazosin 5 mg q.h.s. ALLERGIES PENICILLIN. FAMILY HISTORY The patient's father from myocardial infarction at age 61. Her brother also sustained a myocardial infarction in his late 50s. SOCIAL HISTORY The patient quit smoking about 4 years ago. Prior to that she was smoking about a pack of cigarettes every other day. She denies alcohol abuse. REVIEW OF SYSTEMS As in the history of present illness; otherwise negative or noncontributory. She also denies headache, visual changes, unilateral weakness or numbness, melena, bright red blood per rectum, wheezing, cough. PHYSICAL EXAMINATION VITAL SIGNS: On physical examination her blood pressure is 90/58 with a pulse of 130, respirations 20. GENERAL: In general she is a well-developed, well-nourished female in no acute distress. HEENT/NECK: Jugular venous pressure is hard to assess. It appears to be normal. Carotid pulses are 2+ bilaterally and without bruits. CHEST: Examination of the chest reveals clear lung atkins. CARDIAC: On cardiac examination she has a tachycardic irregular rhythm without S3 or murmur. ABDOMEN: On abdominal examination she has a soft, obese, nontender abdomen. Bowel sounds are present. There is no definite hepatosplenomegaly. EXTREMITIES: Examination of the extremities reveals no clubbing, cyanosis or edema. LABORATORY Laboratory data includes WBC 22.5, hemoglobin 8.2, platelets 47, potassium 3.5, BUN 13, creatinine 1.11, troponin levels less than 0.02. IMAGING Chest x-ray shows left lower lobe infiltrate. EKG EKG from 03/27/2017 at 3:40 p.m. shows atrial fibrillation with a rapid ventricular response, low QRS voltage in the precordial leads, nonspecific ST and T-wave abnormalities. IMPRESSION Paroxysmal atrial fibrillation, possibly paroxysmal atrial tachycardia as well, in this 66-year-old female with a history of hyperlipidemia, hypertension, intracerebral aneurysm, remote history of gastritis, now admitted with increasing fatigue and dyspnea with subsequent evaluation suggesting acute myeloid leukemia. At this time she remains in what appears to be atrial fibrillation or atrial tachycardia with rapid ventricular response. Echocardiogram this admission reportedly shows normal left ventricular function with no major valvular abnormalities and no pericardial effusion. There is no definitive evidence for acute coronary syndrome, although she has had angina-like symptoms in the last 24 hours, possibly precipitated by the tachycardia. She notes rare similar chest pains at home. The patient does have risk factors for coronary artery disease. With respect to her thromboembolic risk, it is overall low. She denies any history of diabetes, congestive heart failure, stroke. RECOMMENDATIONS 1. Will try to start intravenous amiodarone to restore sinus rhythm and to control her heart rates. Her relatively low blood pressures will preclude the use of beta oneil or calcium channel oneil therapy. 2. Obviously hold off on antiplatelet/anticoagulation therapy given her anemia and thrombocytopenia as well as her overall low risk of thromboembolic phenomena. MD YESSENIA Veras/WENDY /9:43 AM /10:00 AM QASIM
--- NOTE | 2017-03-28 10:56 | EKG ---
Date Performed: 03/27/2017 Time Performed: 15:40:26 PTAGE: 66 years EKG: SINUS TACHYCARDIA WITH OCCASIONAL SUPRAVENTRICULAR PREMATURE COMPLEXES LOW QRS VOLTAGE IN P RECORDIAL LEADS SEPTAL MYOCARDIAL INFARCTION , OF INDETERMINATE AGE ABNORMAL ECG PREVIOUS TRACING : 03/25/2017 20.11 DOCTOR: Roland Osorio Interpretating Date/Time 03/28/2017 10:54:37
[2017-03-28] MEDS ORDERED: AMIODARONE INJ 150 MG in DEXTROSE 5% IN WATER 100ML INJ 97 ML IV ONE ×4 (11:00→16:00)
--- NOTE | 2017-03-28 11:55 | EKG ---
Date Performed: 03/28/2017 Time Performed: 09:44:26 PTAGE: 66 years EKG: SINUS TACHYCARDIA LOW QRS VOLTAGE IN EXTREMITY LEADS ABNORMAL RHYTHM ECG PREVIOUS TRACING : 03/27/2017 15.40 DOCTOR: Roland Osorio Interpretating Date/Time 03/28/2017 11:53:55
[2017-03-28] MEDS: AMIODARONE INJ 450 MG in DEXTROSE 5% IN WATE(EXCEL) INJ 241 ML IV SCH ×4 (13:22→23:20)
[2017-03-28] MEDS: TERAZOSIN HCL 5 MG CAP PO SCH (16:00)
[2017-03-28] MEDS: MAGNESIUM HYDROXIDE SUSP 30 ML CUP PO PRN (17:39)
[2017-03-28] MEDS: lamoTRIgine 25 MG TAB PO SCH (21:00)
[2017-03-28] MEDS: TEMAZEPAM 15 MG CAP PO PRN (21:24)
[2017-03-28] MEDS: RESP: ALBUTEROL 2.5 MG/IPRATROPIUM 0.5 MG NEB (PRN) INH (23:29)
[2017-03-29] VITALS (26 sets, daily range): BP systolic 81–98; BP diastolic 50–63; PULSE 77–125; RESP 18–20; TEMP 98–99.7; O2SAT 91–94
[2017-03-29] MEDS: ACETAMINOPHEN/HYDROcodone 325 MG/10 MG TAB PO PRN ×5 (01:28→21:35)
[2017-03-29] MEDS ORDERED: AMIODARONE INJ 150 MG in DEXTROSE 5% IN WATER 100ML INJ 97 ML IV ONE ×2 (04:30)
[2017-03-29] MEDS: LEVOTHYROXINE SODIUM 100 MCG TAB PO SCH (05:27)
[2017-03-29] MEDS: AZTREONAM INJ 2,000 MG in SODIUM CHLORIDE 0.9% INJ 100 ML IV SCH ×3 (05:49→23:27)
[2017-03-29 06:27] LABS: HEMATOCRIT 22.5 % (35.0-46.0); MEAN CELL VOLUME 90.3 FL (80.0-100.0); MEAN CORPUSCULAR HEMOGLOBIN 29.2 PG (27.0-34.0); MEAN CORPUSCULAR HGB CONC 32.4 % (32.0-36.0); PLATELET COUNT 53 TH/MM3 (150-450); RED BLOOD COUNT 2.49 MIL/MM3 (4.00-5.30); RED CELL DISTRIBUTION WIDTH 17.7 % (11.6-17.2); WHITE BLOOD COUNT 21.6 TH/MM3 (4.0-11.0)
[2017-03-29 06:37] LABS: HEMO FLAGS AUTO DIFF
[2017-03-29 06:52] LABS: BICARBONATE 24.2 MEQ/L (21.0-32.0); POTASSIUM 3.8 MEQ/L (3.5-5.1)
[2017-03-29] MEDS: SODIUM CHLOR 0.9% 1000 ML INJ 1,000 ML IV SCH ×2 (06:55→18:58)
[2017-03-29] MEDS: RESP: ALBUTEROL 2.5 MG/IPRATROPIUM 0.5 MG NEB (PRN) INH (07:01)
--- NOTE | 2017-03-29 07:54 | PD.CARD.PN ---
Subjective Subjective Remarks Denies CP, dyspnea, palpitations, dizziness. Slept poorly. Objective Medications Item Value Date Time Amiodarone HCl 250 ml @ 0 mls/hr 03/28/17 1100 450 mg/Dextrose CONTINUOUS/IV 03/28/17 2320 Atorvastatin 40 mg 03/28/17 0900 Calcium DAILY/PO 03/28/17 0854 (Lipitor) Terazosin HCl 5 mg 03/27/17 1600 (Hytrin) AC DINNER/PO Vital Signs / I&O Vital Signs Date Time Temp Pulse Resp B/P Pulse Ox O2 Delivery O2 Flow Rate FiO2 03/29/17 07:03 92 Nasal Cannula 2.00 03/29/17 06:00 77 03/29/17 05:00 125 03/29/17 04:00 88 03/29/17 03:00 98.4 86 18 88/54 93 03/29/17 03:00 77 03/29/17 02:00 113 03/29/17 01:00 110 03/29/17 00:00 112 03/28/17 23:00 105 03/28/17 23:00 98.8 108 18 113/70 93 03/28/17 22:00 106 03/28/17 21:00 124 03/28/17 20:31 97 03/28/17 20:00 78 03/28/17 20:00 99.1 110 18 100/68 95 03/28/17 19:00 80 03/28/17 18:24 81 03/28/17 17:23 80 03/28/17 16:12 122 03/28/17 15:54 98.0 123 20 119/71 96 03/28/17 15:54 120 03/28/17 14:03 119 03/28/17 13:58 121 03/28/17 12:30 120 03/28/17 12:30 97.8 128 20 99/50 94 03/28/17 11:30 98.4 124 16 99/55 93 03/28/17 09:30 96 Nasal Cannula 2.00 03/28/17 09:30 96 Nasal Cannula 2.00 03/28/17 08:05 130 03/28/17 08:00 97.8 97 20 90/58 96 I/O 03/28/17 03/28/17 03/28/17 03/29/17 03/29/1703/29/17 07:00 15:00 23:00 07:00 15:00 23:00 Intake Total 480 ml 2083 ml Balance 480 ml 2083 ml Intake Oral 480 ml 240 ml IV Total 1843 ml # Voids 3 2 3 # Bowel Movements 0 Physical Exam GENERAL: Well developed, well nourished. No acute distress. HEENT: Jugular venous pressure difficult to assess. CHEST: Lungs clear to auscultation anteriorly. CARDIAC: Irregular rate and rhythm without S3, S4, or murmur. ABDOMEN: Soft, nontender, no hepatosplenomegaly. Bowel sounds present. EXTREMITIES: No clubbing, cyanosis, or edema. Laboratory Laboratory Tests Test 03/29/17 05:02 White Blood Count 21.6 TH/MM3 Red Blood Count 2.49 MIL/MM3 Hemoglobin 7.3 GM/DL Hematocrit 22.5 % Mean Corpuscular Volume 90.3 FL Mean Corpuscular Hemoglobin 29.2 PG Mean Corpuscular Hemoglobin 32.4 % Concent Red Cell Distribution Width 17.7 % Platelet Count 53 TH/MM3 Mean Platelet Volume 8.5 FL Neutrophils (%) (Auto) % Lymphocytes (%) (Auto) % Monocytes (%) (Auto) % Eosinophils (%) (Auto) % Basophils (%) (Auto) % Neutrophils # (Auto) TH/MM3 Lymphocytes # (Auto) TH/MM3 Monocytes # (Auto) TH/MM3 Eosinophils # (Auto) TH/MM3 Basophils # (Auto) TH/MM3 CBC Comment AUTO DIFF Sodium Level 143 MEQ/L Potassium Level 3.8 MEQ/L Chloride Level 111 MEQ/L Carbon Dioxide Level 24.2 MEQ/L Anion Gap 8 MEQ/L Blood Urea Nitrogen 12 MG/DL Creatinine 0.96 MG/DL Estimat Glomerular Filtration 58 ML/MIN Rate Random Glucose 130 MG/DL Calcium Level 7.6 MG/DL Assessment and Plan Problem List: (1) Paroxysmal atrial fibrillation Assessment and Plan: Patient intermittently back in a sinus tachycardia. Normal LV function on echo. No definite evidence for ACS. Rec continue IV Amiodarone if allowed on 7th floor where she will be receiving chemo for AML. Otherwise can change Amiodarone to oral 400 mg bid. (2) Hypertension Assessment and Plan: Patient hypotensive this morning. Normal LV function on echo. Rec IVF bolus. (3) Chest pain Assessment and Plan: No further chest discomfort. Overall rare chest discomforts past few months. Echo unremarkable. Medical therapy limited by hypotension, thrombocytopenia. Rec conservative management/evaluation. Code Status full code Discussed Condition With patient Problem Qualifiers (1) Hypertension: Qualified Code: I10 - Essential hypertension (2) Chest pain: Qualified Code: R07.9 - Chest pain, unspecified type Alfie Jefferson MD Mar 29, 2017 07:54
[2017-03-29] MEDS ORDERED: SODIUM CHLORID 0.9% 500 ML INJ 500 ML IV ONE (08:00)
[2017-03-29] MEDS: SODIUM CHLORIDE 0.9% FLUSH 10 ML FLUSH IV FLUSH SCH ×2 (08:14→21:00)
[2017-03-29] MEDS: FAMOTIDINE 20 MG TAB PO SCH ×2 (08:14→21:35)
[2017-03-29] MEDS: ALLOPURINOL 100 MG TAB PO SCH ×2 (08:14→21:34)
[2017-03-29] MEDS: ATORVASTATIN 40 MG TAB PO SCH (08:14)
[2017-03-29] MEDS: NYSTATIN SUSP 500,000 U/5 ML CUP SWISH-SWAL SCH ×4 (08:15→21:34)
--- NOTE | 2017-03-29 08:24 | PD.ONC.PN ---
Subjective Subjective Remarks Patient seen and examined, reports anxiety, denies chest pain, fevers or difficulty breathing at rest. She does get SOB with minimal exertion. Remains in Afib with RVR and is on an amiodarone drip. BMBx confirms diagnosis of AML. Objective Data Date Time Temp Pulse Resp B/P Pulse Ox O2 Delivery O2 Flow Rate FiO2 03/29/17 07:45 98.3 80 18 81/50 92 03/29/17 07:03 92 Nasal Cannula 2.00 03/29/17 06:00 77 03/29/17 05:00 125 03/29/17 04:00 88 03/29/17 03:00 98.4 86 18 88/54 93 03/29/17 03:00 77 03/29/17 02:00 113 03/29/17 01:00 110 03/29/17 00:00 112 03/28/17 23:00 105 03/28/17 23:00 98.8 108 18 113/70 93 03/28/17 22:00 106 03/28/17 21:00 124 03/28/17 20:31 97 03/28/17 20:00 78 03/28/17 20:00 99.1 110 18 100/68 95 03/28/17 19:00 80 03/28/17 18:24 81 03/28/17 17:23 80 03/28/17 16:12 122 03/28/17 15:54 98.0 123 20 119/71 96 03/28/17 15:54 120 03/28/17 14:03 119 03/28/17 13:58 121 03/28/17 12:30 120 03/28/17 12:30 97.8 128 20 99/50 94 03/28/17 11:30 98.4 124 16 99/55 93 03/28/17 09:30 96 Nasal Cannula 2.00 03/28/17 09:30 96 Nasal Cannula 2.00 03/29/17 03/29/17 03/29/17 07:00 15:00 23:00 Intake Total 2083 ml Balance 2083 ml Result Diagram: 03/29/17 0502 03/29/17 0502 Laboratory Results Laboratory Tests Test 03/29/17 05:02 White Blood Count 21.6 TH/MM3 Red Blood Count 2.49 MIL/MM3 Hemoglobin 7.3 GM/DL Hematocrit 22.5 % Mean Corpuscular Volume 90.3 FL Mean Corpuscular Hemoglobin 29.2 PG Mean Corpuscular Hemoglobin 32.4 % Concent Red Cell Distribution Width 17.7 % Platelet Count 53 TH/MM3 Mean Platelet Volume 8.5 FL Neutrophils (%) (Auto) % Lymphocytes (%) (Auto) % Monocytes (%) (Auto) % Eosinophils (%) (Auto) % Basophils (%) (Auto) % Neutrophils # (Auto) TH/MM3 Lymphocytes # (Auto) TH/MM3 Monocytes # (Auto) TH/MM3 Eosinophils # (Auto) TH/MM3 Basophils # (Auto) TH/MM3 CBC Comment AUTO DIFF Sodium Level 143 MEQ/L Potassium Level 3.8 MEQ/L Chloride Level 111 MEQ/L Carbon Dioxide Level 24.2 MEQ/L Anion Gap 8 MEQ/L Blood Urea Nitrogen 12 MG/DL Creatinine 0.96 MG/DL Estimat Glomerular Filtration 58 ML/MIN Rate Random Glucose 130 MG/DL Calcium Level 7.6 MG/DL Administered Medications Medications (Trade) Dose Ordered Sig/Tylor Route PRN Reason Start Time Stop Time Status Last Admin Dose Admin Sodium Chloride (NS 1000 ml Inj) 1,000 ml @ 83 mls/hr Q12H3M IV 03/25/17 23:14 03/28/17 18:52 Sodium Chloride (NS Flush) 2 ml BID IV FLUSH 03/26/17 09:00 03/29/17 08:14 Acetaminophen (Tylenol) 650 mg Q4H PRN PO TEMP > 100.4 03/25/17 23:15 03/26/17 21:16 Ondansetron HCl (Zofran Inj) 4 mg Q6H PRN IVP NAUSEA OR VOMITING 03/25/17 23:15 03/28/17 06:36 Acetaminophen 650 mg 650 mg Q6H PRN PO PAIN SCALE 1 TO 2 03/25/17 23:15 03/26/17 08:14 Aztreonam/Sodium Chloride (Azactam Inj/NS Inj) 100 ml @ 200 mls/hr Q8H IV 03/26/17 07:00 03/29/17 05:49 Famotidine (Pepcid) 10 mg BID PO 03/26/17 09:00 03/29/17 08:14 Morphine Sulfate (Morphine Inj) 2 mg Q3H PRN IV PUSH pain 3-10 7/30/17 23:30 03/27/17 09:50 Temazepam (Restoril) 15 mg HS PRN PO insomnia 03/26/17 00:30 03/28/17 21:24 Allopurinol (Zyloprim) 100 mg BID PO 03/26/17 09:00 03/29/17 08:14 Nystatin (Mycostatin Liq) 5 ml QID SWISH-SWAL 03/26/17 18:00 03/29/17 08:15 Magnesium Hydroxide (Milk Of Magnesia Liq) 30 ml DAILY PRN PO constipation 03/27/17 13:45 03/28/17 17:39 Atorvastatin Calcium (Lipitor) 40 mg DAILY PO 03/28/17 09:00 03/29/17 08:14 Levothyroxine Sodium (Synthroid) 100 mcg DAILY@06 PO 03/28/17 06:00 03/29/17 05:27 Acetaminophen/ Hydrocodone Bitart 1 tab 1 tab Q4H PRN PO PAIN 7-10 03/28/17 09:15 03/29/17 06:41 Amiodarone HCl 450 mg/Dextrose 250 ml @ 0 mls/hr CONTINUOUS IV 03/28/17 11:00 03/28/17 23:20 Sodium Chloride (NS 500 ml Inj) 500 ml @ 500 mls/hr BOLUS ONCE IV 03/29/17 08:00 03/29/17 08:59 03/29/17 08:00 Objective Remarks GENERAL PHYSICAL APPEARANCE: Ms. Richard is a middle-aged female, she is of medium height and is heavy-set. She is laying in bed and is in no acute distress. HEENT: Head is atraumatic, normocephalic, conjunctivae are pale. Sclerae are anicteric, EOMI, PERRLA. ORAL EXAM: She has thrush noted. NECK: No cervical lymphadenopathy. RESPIRATORY: Good air movement bilaterally. No added breath sounds. CARDIOVASCULAR: Irregular rhythm, tachycardic, distant sounding heart sounds. rubs or gallops. She does have a systolic murmur heard over the aortic area. ABDOMEN: Obese belly, soft and nontender, nondistended. No palpable organ enlargement. LOWER EXTREMITIES: No pretibial edema or calf tenderness. MUSCULOSKELETAL: Adequate muscle mass, tone and strength. Assessment/Plan Assessment Ms. Richard is a 66-year-old female with a 3-week history of progressive malaise, fatigue and weakness. She reports soreness of the throat and a dry cough, both of which have been chronic. She presented to the emergency department for further workup and management because her symptoms of fatigue progressed to the point where she had difficulty walking from her bedroom to her restroom. She called EMS last night due to the severity of the symptoms. Blood work performed in the emergency department indicates findings consistent with anemia, thrombocytopenia, her WBCs are grossly abnormal with findings of numerous immature cells and blasts in the peripheral circulation. 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 Peripheral smear was formally reviewed by our hematocrit pathologist who assessed the findings to be consistent with a high- grade myeloid malignancy most consistent with acute myeloid leukemia. Await bone marrow aspiration Flow Cytometry and review of the core biopsy for further characterization. Plan 1. Bone marrow biopsy indicates findings consistent with AML. FLT-3, CEPBA and NPM-1 analysis pending to help us prognosticate further, cytogenetics are pending. She is a poor candidate for intensive induction remission therapy with anthracycline/Cytarabine or HiDAC due to her cardiac and pulmonary issues and borderline performance status. She would be better served in my assessment with treatment with Dacogen. 2. A. fib with RVR associated with transient chest pain: Appreciate cardiology service's assistance. She is presently on the cardiac step down unit and is on an amiodarone gtt. 3. Elevated uric acid levels and LDH: Patient at increased risk for tumor lysis syndrome once treatment starts. I have therefore initiated her on allopurinol 100 mg by mouth twice a day. Continue IV fluid hydration. 5. Mild renal dysfunction: Continue hydration and monitor renal function. Disposition: Continue amiodarone gtt for 24hrs then convert to PO amiodarone as per Dr. Jefferson. The patient may then be transferred to [facility] for Dacogen infusions to begin. Roberto Yarbrough MD Mar 29, 2017 08:24
[2017-03-29 09:02] LABS: BANDS 3 % (0-6); BLASTS 29 % (0-0); CORRECTED NUCLEATED RBC 1 /100 WBC (0-0); METAMYELOCYTES 8 % (0-1); MYELOCYTES 9 % (0-0); NEUTROPHIL # MANUAL DIFF 9.7 TH/MM3 (1.8-7.7); POLYS (SEG NEUTROPHILS) 25 % (16-70); WBC DIFF SAMPLE 100
[2017-03-29 09:03] LABS: PLATELET ESTIMATE SMEAR LOW (NORMAL); PLATELET MORPHOLOGY NORMAL (NORMAL)
[2017-03-29 09:04] LABS: SCAN/DIFF FINAL DIFF MANUAL
--- NOTE | 2017-03-29 10:48 | HHI.PR ---
Subjective Subjective Remarks Transfer to [facility] yesterday for A. roxie with RVR and hypotension Currently sinus rhythm, heart rate 80s. Per nursing, heart rate does go up to sinus tach 1 teens with activity Remains on amiodarone drip Chest pain No shortness of breath Indicates that back pain is relieving some Feels better today and has been able to eat Blood pressure remains marginal, 81/50 No fever Son at bedside, multiple questions asked about prognosis and lenght of treatment. Patient verbalizing for that she is willing to undergo treatment however she will not want to be kept alive on any machines and in the event that she has to go on life support; she would only want it for a short period of time and will want her son and daughter to "pull the plug". Son is requesting older adult social work specialist to assist with completing advanced directives and patient is agreeable Review of Systems Constitutional Constitutional Remarks 12 point ros completed, negative except as noted above Vitals/Results Intake & Output 03/28/17 03/28/17 03/29/17 15:00 23:00 07:00 Intake Total 480 ml 2083 ml Balance 480 ml 2083 ml Intake Oral 480 ml 240 ml IV Total 1843 ml # Voids 2 3 # Bowel Movements 0 Vital Signs Vital Signs Date Time Temp Pulse Resp B/P Pulse Ox O2 Delivery O2 Flow Rate FiO2 03/29/17 09:41 18 03/29/17 09:00 80 03/29/17 08:00 120 03/29/17 07:45 98.3 80 18 81/50 92 03/29/17 07:03 92 Nasal Cannula 2.00 03/29/17 07:00 77 03/29/17 06:00 77 03/29/17 05:00 125 03/29/17 04:00 88 03/29/17 03:00 98.4 86 18 88/54 93 03/29/17 03:00 77 03/29/17 02:00 113 03/29/17 01:00 110 03/29/17 00:00 112 03/28/17 23:00 105 03/28/17 23:00 98.8 108 18 113/70 93 03/28/17 22:00 106 03/28/17 21:00 124 03/28/17 20:31 97 03/28/17 20:00 78 03/28/17 20:00 99.1 110 18 100/68 95 03/28/17 19:00 80 03/28/17 18:24 81 03/28/17 17:23 80 03/28/17 16:12 122 03/28/17 15:54 98.0 123 20 119/71 96 03/28/17 15:54 120 03/28/17 14:03 119 03/28/17 13:58 121 03/28/17 12:30 120 03/28/17 12:30 97.8 128 20 99/50 94 03/28/17 11:30 98.4 124 16 99/55 93 CBC/BMP: 03/29/17 0502 03/29/17 0502 Lab Results Laboratory Tests Test 03/29/17 05:02 White Blood Count 21.6 TH/MM3 Red Blood Count 2.49 MIL/MM3 Hemoglobin 7.3 GM/DL Hematocrit 22.5 % Mean Corpuscular Volume 90.3 FL Mean Corpuscular Hemoglobin 29.2 PG Mean Corpuscular Hemoglobin 32.4 % Concent Red Cell Distribution Width 17.7 % Platelet Count 53 TH/MM3 Mean Platelet Volume 8.5 FL Neutrophils (%) (Auto) % Lymphocytes (%) (Auto) % Monocytes (%) (Auto) % Eosinophils (%) (Auto) % Basophils (%) (Auto) % Neutrophils # (Auto) TH/MM3 Lymphocytes # (Auto) TH/MM3 Monocytes # (Auto) TH/MM3 Eosinophils # (Auto) TH/MM3 Basophils # (Auto) TH/MM3 CBC Comment AUTO DIFF Differential Total Cells 100 Counted Neutrophils % (Manual) 25 % Band Neutrophils % 3 % Lymphocytes % 16 % Monocytes % 10 % Neutrophils # (Manual) 9.7 TH/MM3 Metamyelocytes 8 % Myelocytes 9 % Nucleated Red Blood Cells 1 /100 WBC Differential Comment FINAL DIFF MANUAL Blastocytes 29 % Platelet Estimate LOW Platelet Morphology Comment NORMAL Sodium Level 143 MEQ/L Potassium Level 3.8 MEQ/L Chloride Level 111 MEQ/L Carbon Dioxide Level 24.2 MEQ/L Anion Gap 8 MEQ/L Blood Urea Nitrogen 12 MG/DL Creatinine 0.96 MG/DL Estimat Glomerular Filtration 58 ML/MIN Rate Random Glucose 130 MG/DL Calcium Level 7.6 MG/DL Physical Exam General General Appearance: Well Developed, Well Nourished, No Acute Distress, Comfortable, Obese Eyes Eye Exam: Pupils Equal, Pupils Reactive Ears & Nose Ears & Nose Exam: Nasal Mucosa [place] Throat Throat Exam: Oral Mucosa [place] & Moist Neck Neck Exam: Neck Supple, Trachea Midline Pulmonary Resp Exam: Breath Sounds Equal, Decreased Bases Cardiology CV Exam: Regular, Normal Sinus Rhythm, Good Perfusion Gastrointestinal/Abdomen GI Exam: Soft, Non-Tender, Bowel Sounds Present, Non-Distended Musculoskeletal MS Exam: Joints Intact Integumentary Skin Exam: Warm, Dry Extremeties Extremities Exam: No Edema, Pedal Pulses Palpable Neurologic Neuro Exam: Alert, Awake, Oriented, Speech Clear, Moving All Extremities, No Focal Deficits Psychiatric Psych Exam: Appropriate Responses VTE Prophylaxis VTE Prophylaxis Device: SCDs Assessment/Plan Problem List: (1) Sepsis (2) Anemia (3) Thrombocytopenia (4) Elevated white blood cell count (5) Pneumonia (6) CKD (chronic kidney disease) stage 3, GFR 30-59 ml/min (7) AML (acute myeloid leukemia) (8) Low blood pressure (9) Tachycardia (10) Hx TIA/stroke w/o resid (11) hx cerebral aneurysm (12) Atrial fibrillation with RVR Assessment/Plan 66-year-old female admitted with sepsis, fever, malaise, fatigue. Found with pneumonia, leukocytosis, anemia, thrombocytopenia. Early sepsis, pneumonia Continue with antibiotics, Azactam, off Levaquin Continue with supplemental oxygen Follow cultures-negative so far -Continue DuoNeb's as needed -WBC trending down 21.6 Fatigue malaise, noted with significant WBC abnormalities. Possible acute myeloid leukemia. Pancytopenia Status post bone marrow biopsy 03/26/2017 -Echo done, EF 55% -Started on allopurinol, patient noted with elevated uric acid level in ADH. Patient at risk for tumor lysis syndrome once treatment begins. Continue with hydration. -Plat 53, HH 7.3/22.5-defer blood product administration to hematology Appreciate Dr. Yarbrough's input, bone marrow bx + AML. Because of pulmonary and cardiac status, she is not a candidate for intensive induction remission therapy with anthracycline/Cytarabine or HiDAC, therefore treatment will consist of Dacogen. -When pt is off Amiodarone, she will need to go back to 7th floor to start treatment Afib RVR, hypotension, CP Hallicat last night due to hypotension and afib rvr, bolused -appreciate card input Patient on beta blockers, at this time unable to restart because of low blood pressure -receiving another bolus of NS today 500 cc, bp remains marginal -at this time, continue with Amiodarone, if HR better controlled she may be changed to PO. Back pain, s/p bone marrow bx Pain better controlled -continue [place], can't have Morphine due to low bp -Ativan PRN CKD stage III Continue with hydration stable History of TIA History of cerebral aneurysm Monitor neuro status Control blood pressure Avoid anticoagulants due to thrombocytopenia, SCDs for DVT prophylaxis Pepcid for GI prophylaxis PT for eval and treatment Bowel regimen PRN ordered Patient's condition guarded remain in [facility] for now, due to amiodarone drip End of life discussions with patient and son at her request. At this time, she wants to continue with full active treatment however if treatment does not work she is willing to go to hospice and wants her family to respect her wishes. She is requesting to complete advanced directives. D/W pt and family D/W Dr. Duffy D/W RN This patient was seen by myself and Dr. Duffy, this note is written on his behalf Problem Qualifiers (1) Sepsis: Qualified Code: A41.9 - Sepsis, due to unspecified organism (2) Anemia: Qualified Code: D64.9 - Anemia, unspecified type (3) Elevated white blood cell count: Qualified Code: D72.829 - Leukocytosis, unspecified type (4) Pneumonia: Qualified Code: J18.1 - Pneumonia of left lower lobe due to infectious organism (5) Low blood pressure: Qualified Code: I95.9 - Hypotension, unspecified hypotension type Tina Blair Mar 29, 2017 10:48
--- NOTE | 2017-03-29 15:07 | EKG ---
Date Performed: 03/29/2017 Time Performed: 06:05:48 PTAGE: 66 years EKG: Sinus tachycardia Anterior T wave changes are nonspecific Low QRS voltages in limb leads Jim rderline ECG PREVIOUS TRACING : 03/28/2017 09.44 Since previous tracing, no significant change noted DOCTOR: Natalia Garcia Interpretating Date/Time 03/29/2017 15:06:21
[2017-03-29] MEDS: TERAZOSIN HCL 5 MG CAP PO SCH (16:00)
[2017-03-29] MEDS: lamoTRIgine 25 MG TAB PO SCH (21:00)
[2017-03-29] MEDS: MAGNESIUM HYDROXIDE SUSP 30 ML CUP PO PRN (21:34)
[2017-03-29] MEDS: TEMAZEPAM 15 MG CAP PO PRN (21:35)
[2017-03-29] MEDS: ONDANSETRON HCL 4 MG/2 ML VIAL IVP PRN (21:36)
[2017-03-30] VITALS (24 sets, daily range): BP systolic 90–124; BP diastolic 50–68; PULSE 72–129; RESP 18–22; TEMP 96.3–98.8; O2SAT 92–99
[2017-03-30] MEDS: ACETAMINOPHEN/HYDROcodone 325 MG/10 MG TAB PO PRN ×5 (02:11→22:14)
[2017-03-30] MEDS: LEVOTHYROXINE SODIUM 100 MCG TAB PO SCH (06:04)
[2017-03-30] MEDS: AZTREONAM INJ 2,000 MG in SODIUM CHLORIDE 0.9% INJ 100 ML IV SCH ×3 (06:05→23:46)
[2017-03-30] MEDS ORDERED: SODIUM CHLOR 0.9% 250 ML INJ 250 ML IV ONE (06:45)
[2017-03-30] MEDS ORDERED: FUROSEMIDE 20 MG/2 ML VIAL IV ONE (06:45)
[2017-03-30] MEDS ORDERED: diphenhydrAMINE HCL 25 MG CAP PO PRN (06:45)
[2017-03-30] MEDS ORDERED: ACETAMINOPHEN 325 MG TAB PO PRN (06:45)
--- NOTE | 2017-03-30 07:29 | PD.ONC.PN ---
Subjective Subjective Remarks Patient seen and examined, vital signs, labs, medications, rhythm strips from overnight reviewed. Subjectively: She feels more optimistic today, she tells me she feels as if "a door has opened ". She is agreeable to proceed with systemic chemotherapy for management of her newly diagnosed AML. She tells me she understands the risks of treatment related adverse effects as well as aggressive disease associate with poor outcomes is high but she is willing to try. She continues to feel short of breath, she feels tired but denies fevers, chills , overt bleeding or worsening pain. She remains on an amiodarone drip and will be converted to oral amiodarone later today. Objective Data Date Time Temp Pulse Resp B/P Pulse Ox O2 Delivery O2 Flow Rate FiO2 03/30/17 06:00 96 03/30/17 05:00 75 03/30/17 04:00 116 03/30/17 03:00 77 03/30/17 03:00 98.5 79 18 110/57 92 03/30/17 02:00 83 03/30/17 01:00 85 03/30/17 00:00 74 03/29/17 23:00 117 03/29/17 23:00 99.1 117 18 85/58 91 03/29/17 22:00 122 03/29/17 21:00 122 03/29/17 20:00 118 03/29/17 20:00 99.7 120 18 86/63 93 03/29/17 19:00 118 03/29/17 18:56 18 03/29/17 18:00 118 03/29/17 17:00 120 03/29/17 16:00 98.0 118 20 98/58 93 03/29/17 16:00 114 03/29/17 15:00 116 03/29/17 14:00 80 03/29/17 13:00 82 03/29/17 12:00 82 03/29/17 11:00 85 03/29/17 11:00 98.0 86 20 93/50 94 03/29/17 10:00 80 03/29/17 09:00 80 03/29/17 08:00 120 03/29/17 07:45 98.3 80 18 81/50 92 03/30/17 03/30/17 03/30/17 07:00 15:00 23:00 Intake Total 3073 ml Output Total 300 ml Balance 2773 ml Result Diagram: 03/29/17 0502 03/29/17 0502 Administered Medications Medications (Trade) Dose Ordered Sig/Tylor Route PRN Reason Start Time Stop Time Status Last Admin Dose Admin Sodium Chloride (NS 1000 ml Inj) 1,000 ml @ 83 mls/hr Q12H3M IV 03/25/17 23:14 03/29/17 18:58 Sodium Chloride (NS Flush) 2 ml BID IV FLUSH 03/26/17 09:00 03/29/17 08:14 Acetaminophen (Tylenol) 650 mg Q4H PRN PO TEMP > 100.4 03/25/17 23:15 03/26/17 21:16 Ondansetron HCl (Zofran Inj) 4 mg Q6H PRN IVP NAUSEA OR VOMITING 03/25/17 23:15 03/29/17 21:36 Acetaminophen 650 mg 650 mg Q6H PRN PO PAIN SCALE 1 TO 2 03/25/17 23:15 03/26/17 08:14 Aztreonam/Sodium Chloride (Azactam Inj/NS Inj) 100 ml @ 200 mls/hr Q8H IV 03/26/17 07:00 03/30/17 06:05 Famotidine (Pepcid) 10 mg BID PO 03/26/17 09:00 03/29/17 21:35 Morphine Sulfate (Morphine Inj) 2 mg Q3H PRN IV PUSH pain 3-10 03/25/17 23:30 03/27/17 09:50 Temazepam (Restoril) 15 mg HS PRN PO insomnia 03/26/17 00:30 03/29/17 21:35 Allopurinol (Zyloprim) 100 mg BID PO 03/26/17 09:00 03/29/17 21:34 Nystatin (Mycostatin Liq) 5 ml QID SWISH-SWAL 03/26/17 18:00 03/29/17 21:34 Magnesium Hydroxide (Milk Of Magnesia Liq) 30 ml DAILY PRN PO constipation 03/27/17 13:45 03/29/17 21:34 Atorvastatin Calcium (Lipitor) 40 mg DAILY PO 03/28/17 09:00 03/29/17 08:14 Levothyroxine Sodium (Synthroid) 100 mcg DAILY@06 PO 03/28/17 06:00 03/30/17 06:04 Acetaminophen/ Hydrocodone Bitart 1 tab 1 tab Q4H PRN PO PAIN 7-10 03/28/17 09:15 03/30/17 06:07 Amiodarone HCl/ Dextrose (Cordarone Inj/ D5W ([place]) Inj) 250 ml @ 0 mls/hr CONTINUOUS IV 03/28/17 11:00 03/30/17 08:00 03/28/17 23:20 Objective Remarks GENERAL PHYSICAL APPEARANCE: Ms. Richard is a middle-aged female, she is of medium height and is heavy-set. She is laying in bed and is in no acute distress. HEENT: Head is atraumatic, normocephalic, conjunctivae are pale. Sclerae are anicteric, EOMI, PERRLA. ORAL EXAM: She has thrush noted. NECK: No cervical lymphadenopathy. RESPIRATORY: Good air movement bilaterally. No added breath sounds. CARDIOVASCULAR: Irregular rhythm, tachycardic, distant sounding heart sounds. rubs or gallops. She does have a systolic murmur heard over the aortic area. ABDOMEN: Obese belly, soft and nontender, nondistended. No palpable organ enlargement. LOWER EXTREMITIES: No pretibial edema or calf tenderness. MUSCULOSKELETAL: Adequate muscle mass, tone and strength. Assessment/Plan Assessment Ms. Richard is a 66-year-old female with a 3-week history of progressive malaise, fatigue and weakness. She reports soreness of the throat and a dry cough, both of which have been chronic. She presented to the emergency department for further workup and management because her symptoms of fatigue progressed to the point where she had difficulty walking from her bedroom to her restroom. She called EMS last night due to the severity of the symptoms. Blood work performed in the emergency department indicates findings consistent with anemia, thrombocytopenia, her WBCs are grossly abnormal with findings of numerous immature cells and blasts in the peripheral circulation. 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 Peripheral smear was formally reviewed by our hematocrit pathologist who assessed the findings to be consistent with a high- grade myeloid malignancy most consistent with acute myeloid leukemia. Await bone marrow aspiration Flow Cytometry and review of the core biopsy for further characterization. Plan 1. Bone marrow biopsy indicates findings consistent with AML. FLT-3, CEPBA and NPM-1 analysis pending to help us prognosticate further, cytogenetics are pending. She is a poor candidate for intensive induction remission therapy with anthracycline/Cytarabine or HiDAC due to her cardiac and pulmonary issues and borderline performance status. She would be better served in my assessment with treatment with Dacogen. Plan to start Dacogen day 1 later today. Await transferred to the oncology floor. Chemotherapy teaching has been ordered. 2. A. fib with RVR associated with transient chest pain: Appreciate cardiology service's assistance. She is presently on the cardiac step down unit and is on an amiodarone gtt. transition to oral amiodarone later today. She remains in A. fib with periods of RVR though per the rhythm strip at nighttime she did have periods when her ventricular response rate was in the 70s to 80s. 3. Elevated uric acid levels and LDH: Patient at increased risk for tumor lysis syndrome once treatment starts. I have therefore initiated her on allopurinol 100 mg by mouth twice a day. Continue IV fluid hydration. 5. Mild renal dysfunction: Continue hydration and monitor renal function. Disposition: Transfer 7 east later today for initiation of Dacogen which will subsequently continue for 5 consecutive days. Roberto Yarbrough MD Mar 30, 2017 07:28
[2017-03-30] MEDS: ALLOPURINOL 100 MG TAB PO SCH ×2 (08:25→22:23)
[2017-03-30] MEDS: ACETAMINOPHEN 325 MG TAB PO PRN (08:26)
[2017-03-30] MEDS: ATORVASTATIN 40 MG TAB PO SCH (08:26)
[2017-03-30] MEDS: FAMOTIDINE 20 MG TAB PO SCH ×2 (08:26→22:13)
[2017-03-30] MEDS: SODIUM CHLORIDE 0.9% FLUSH 10 ML FLUSH IV FLUSH SCH ×2 (08:27→21:00)
[2017-03-30] MEDS: NYSTATIN SUSP 500,000 U/5 ML CUP SWISH-SWAL SCH ×4 (08:27→22:14)
[2017-03-30] MEDS: LORazepam 1 MG TAB PO PRN ×2 (10:22→22:13)
--- NOTE | 2017-03-30 11:34 | PD.CARD.PN ---
Subjective Subjective Remarks Doing well No chest pain/SOB Telemetry with periods of Afib with RVR over night Objective Medications Current Medications Medications (Trade) Dose Ordered Sig/Tylor Route Start Time Stop Time Status Last Admin (NS 1000 ml Inj) 1,000 ml @ 83 mls/hr Q12H3M IV 03/25/17 23:14 03/29/17 18:58 (NS Flush) 2 ml UNSCH PRN IV FLUSH 03/25/17 23:15 (NS Flush) 2 ml BID IV FLUSH 03/26/17 09:00 03/30/17 08:27 (Tylenol) 650 mg Q4H PRN PO 03/25/17 23:15 03/30/17 08:26 (Zofran Inj) 4 mg Q6H PRN IVP 03/25/17 23:15 03/29/17 21:36 (Tylenol) 650 mg Q6H PRN PO 03/25/17 23:15 03/26/17 08:14 (Narcan Inj) 0.4 mg UNSCH PRN IV 03/25/17 23:15 (Senokot) 17.2 mg Q12H PRN PO 03/25/17 23:15 Lactulose 30 ml 30 ml DAILY PRN PO 03/25/17 23:15 (Azactam Inj/NS Inj) 100 ml @ 200 mls/hr Q8H IV 03/26/17 07:00 03/30/17 06:05 (Robitussin Dm 200-20 Mg/10 ml Liq) 10 ml Q4H PRN PO 03/25/17 23:15 (Pepcid) 10 mg BID PO 03/26/17 09:00 03/30/17 08:26 (Pill Splitter) 1 ea UNSCH PRN OTHER 03/25/17 23:30 (Morphine Inj) 2 mg Q3H PRN IV PUSH 03/25/17 23:30 03/27/17 09:50 (Restoril) 15 mg HS PRN PO 03/26/17 00:30 03/29/17 21:35 (Zyloprim) 100 mg BID PO 03/26/17 09:00 03/30/17 08:25 (Mycostatin Liq) 5 ml QID SWISH-SWAL 03/26/17 18:00 03/30/17 08:27 (Milk Of Magnesia Liq) 30 ml DAILY PRN PO 03/27/17 13:45 03/29/17 21:34 (Lipitor) 40 mg DAILY PO 03/28/17 09:00 03/30/17 08:26 (LaMICtal) 50 mg HS PO 03/27/17 21:00 (Synthroid) 100 mcg DAILY@06 PO 03/28/17 06:00 03/30/17 06:04 ([place]idence 10-325 Mg) 1 tab Q4H PRN PO 03/28/17 09:15 03/30/17 10:22 (Ativan) 1 mg Q6H PRN PO 03/28/17 09:15 03/30/17 10:22 Prochlorperazine Edisylate 5 mg 5 mg Q4H PRN IV PUSH 03/28/17 09:30 (NS 250 ml Inj) 250 ml @ 15 mls/hr ONCE ONCE IV 03/30/17 06:45 03/30/17 23:24 (Kytril) 2 mg Q24H PO 03/30/17 13:00 04/03/17 13:01 Granisetron HCl 1 mg 1 mg Q24H IV PUSH 03/30/17 13:30 04/03/17 13:31 (Dacogen Inj/NS 250 ml Inj) 250 ml @ 250 mls/hr Q24H IV 03/30/17 14:00 04/03/17 14:59 Vital Signs / I&O Vital Signs Date Time Temp Pulse Resp B/P Pulse Ox O2 Delivery O2 Flow Rate FiO2 03/30/17 10:13 94 Nasal Cannula 2.00 03/30/17 08:00 98.8 87 20 111/68 93 03/30/17 06:00 96 03/30/17 05:00 75 03/30/17 04:00 116 03/30/17 03:00 77 03/30/17 03:00 98.5 79 18 110/57 92 03/30/17 02:00 83 03/30/17 01:00 85 03/30/17 00:00 74 03/29/17 23:00 117 03/29/17 23:00 99.1 117 18 85/58 91 03/29/17 22:00 122 03/29/17 21:00 122 03/29/17 20:00 118 03/29/17 20:00 99.7 120 18 86/63 93 03/29/17 19:00 118 03/29/17 18:56 18 03/29/17 18:00 118 03/29/17 17:00 120 03/29/17 16:00 98.0 118 20 98/58 93 03/29/17 16:00 114 03/29/17 15:00 116 03/29/17 14:00 80 03/29/17 13:00 82 03/29/17 12:00 82 I/O 03/29/17 03/29/17 03/29/17 03/30/17 03/30/17 03/30/17 07:00 15:00 23:00 07:00 15:00 23:00 Intake Total 2083 ml 1400 ml 3073 ml Output Total 300 ml Balance 2083 ml 1400 ml 2773 ml Intake Oral 240 ml 600 ml 480 ml IV Total 1843 ml 800 ml 2593 ml Output Urine Total 300 ml # Voids 3 3 # Bowel Movements 0 0 Physical Exam GENERAL: NAD, AAOx3 SKIN: Warm and dry. HEAD: Atraumatic. Normocephalic. EYES: Pupils equal and round. No scleral icterus. No injection or drainage. ENT: No nasal bleeding or discharge. Mucous membranes pink and moist. NECK: Trachea midline. No JVD. CARDIOVASCULAR: Regular rate and rhythm. RESPIRATORY: No accessory muscle use. Decreased breath sounds bilaterally GASTROINTESTINAL: Abdomen soft, non-tender, nondistended. Hepatic and splenic margins not palpable. MUSCULOSKELETAL: Extremities without clubbing, cyanosis, or edema. No obvious deformities. NEUROLOGICAL: Awake and alert. No obvious cranial nerve deficits. Motor grossly within normal limits. Five out of 5 muscle strength in the arms and legs. Normal speech. PSYCHIATRIC: Appropriate mood and affect; insight and judgment normal. Laboratory Laboratory Tests Test 03/30/17 10:20 Blood Type B NEGATIVE Antibody Screen NEGATIVE Blood Bank Comment Assessment and Plan Problem List: (1) Paroxysmal atrial fibrillation (2) Hypertension (3) Chest pain (4) AML (acute myeloid leukemia) (5) Thrombocytopenia (6) Anemia Assessment and Plan 1) Mostly controlled heart rates on Amio PO, but still had episodes over night Would monitor on CIC for 24 hours to make sure no further prolonged episodes 2) Con't Amio PO 3) BP better, may be able to add BB tomorrow if stable 4) No antiplatelet/anticoagulant due to thrombocytopenia Problem Qualifiers (1) Hypertension: Qualified Code: I10 - Essential hypertension (2) Chest pain: Qualified Code: R07.9 - Chest pain, unspecified type (3) Anemia: Qualified Code: D64.9 - Anemia, unspecified type Donal Chang DO Mar 30, 2017 11:34
--- NOTE | 2017-03-30 11:40 | HHI.PR ---
Subjective Subjective Remarks Occasional episodes of A. fib with RVR overnight, currently sinus rhythm, heart rate has remained in the 80s Off amiodarone drip Had some anxiety, received Ativan, feeling better now Slightly tachypneic, short of breath with activity only No chest pain Back pain is stable No fever Blood pressure 100s, improving no family at bsd (Tina Blair) Review of Systems Constitutional Constitutional Remarks 12 point ros completed, negative except as noted above (Tina Blair) Vitals/Results Intake & Output 03/29/17 03/29/17 03/30/17 15:00 23:00 07:00 Intake Total 1400 ml 3073 ml Output Total 300 ml Balance 1400 ml 2773 ml Intake Oral 600 ml 480 ml IV Total 800 ml 2593 ml Output Urine Total 300 ml # Voids 3 # Bowel Movements 0 Vital Signs Vital Signs Date Time Temp Pulse Resp B/P Pulse Ox O2 Delivery O2 Flow Rate FiO2 03/30/17 10:13 94 Nasal Cannula 2.00 03/30/17 08:00 98.8 87 20 111/68 93 03/30/17 06:00 96 03/30/17 05:00 75 03/30/17 04:00 116 03/30/17 03:00 77 03/30/17 03:00 98.5 79 18 110/57 92 03/30/17 02:00 83 03/30/17 01:00 85 03/30/17 00:00 74 03/29/17 23:00 117 03/29/17 23:00 99.1 117 18 85/58 91 03/29/17 22:00 122 03/29/17 21:00 122 03/29/17 20:00 118 03/29/17 20:00 99.7 120 18 86/63 93 03/29/17 19:00 118 03/29/17 18:56 18 03/29/17 18:00 118 03/29/17 17:00 120 03/29/17 16:00 98.0 118 20 98/58 93 03/29/17 16:00 114 03/29/17 15:00 116 03/29/17 14:00 80 03/29/17 13:00 82 03/29/17 12:00 82 (Tina Blair) CBC/BMP: 03/29/17 0502 03/29/17 0502 Lab Results Laboratory Tests Test 03/30/17 10:20 Blood Type B NEGATIVE Antibody Screen NEGATIVE Blood Bank Comment (Tina Blair) Physical Exam General General Appearance: Well Developed, Well Nourished, No Acute Distress, Comfortable, Anxious, Obese (Tina Blair COMPUTER APPLICATIONS ENGINEER) Eyes Eye Exam: Pupils Equal, Pupils Reactive (Tina lBairP) Ears & Nose Ears & Nose Exam: Nasal Mucosa [place] (Tina Blair COMPUTER APPLICATIONS ENGINEER) Throat Throat Exam: Oral Mucosa [place] & Moist (Tina Blair COMPUTER APPLICATIONS ENGINEER) Neck Neck Exam: Neck Supple, Trachea Midline (Tina Blair COMPUTER APPLICATIONS ENGINEER) Pulmonary Resp Exam: Breath Sounds Equal, Decreased Bases (Tina Blair COMPUTER APPLICATIONS ENGINEER) Cardiology CV Exam: Regular, Normal Sinus Rhythm, Good Perfusion (Tina Blair GNelly COMPUTER APPLICATIONS ENGINEER) Gastrointestinal/Abdomen GI Exam: Soft, Non-Tender, Bowel Sounds Present, Non-Distended (Tina Blair COMPUTER APPLICATIONS ENGINEER) Musculoskeletal MS Exam: Joints Intact (Tina Blair COMPUTER APPLICATIONS ENGINEER) Integumentary Skin Exam: Warm, Dry (Tina Blair COMPUTER APPLICATIONS ENGINEER) Extremeties Extremities Exam: No Edema, Pedal Pulses Palpable (Tina Blair COMPUTER APPLICATIONS ENGINEER) Neurologic Neuro Exam: Alert, Awake, Oriented, Speech Clear, Moving All Extremities, No Focal Deficits (Tina Blair G. COMPUTER APPLICATIONS ENGINEER) Psychiatric Psych Exam: Appropriate Responses (Tina BlairP) VTE Prophylaxis VTE Prophylaxis Device: SCDs (Tina Blair GNelly STEVEP) Assessment/Plan Problem List: (1) Sepsis (2) Anemia (3) Thrombocytopenia (4) Elevated white blood cell count (5) Pneumonia (6) CKD (chronic kidney disease) stage 3, GFR 30-59 ml/min (7) AML (acute myeloid leukemia) (8) Low blood pressure (9) Tachycardia (10) Hx TIA/stroke w/o resid (11) hx cerebral aneurysm (12) Atrial fibrillation with RVR Assessment/Plan 66-year-old female admitted with sepsis, fever, malaise, fatigue. Found with pneumonia, leukocytosis, anemia, thrombocytopenia. Early sepsis, pneumonia Continue with antibiotics, Azactam, off Levaquin Continue with supplemental oxygen Follow cultures-negative so far -Continue DuoNeb's as needed -WBC trending down 21.6 Fatigue malaise, noted with significant WBC abnormalities. Possible acute myeloid leukemia. Pancytopenia Status post bone marrow biopsy 03/26/2017 -Echo done, EF 55% -Continue with allopurinol, patient noted with elevated uric acid level and LDH. Patient at risk for tumor lysis syndrome once treatment begins. Continue with hydration. -Plat 53, HH 7.3/22.5-defer blood product administration to hematology Appreciate Dr. Yarbrough's input, bone marrow bx + AML. Because of pulmonary and cardiac status, she is not a candidate for intensive induction remission therapy with anthracycline/Cytarabine or HiDAC, therefore treatment will consist of Dacogen. -off Amiodarone gtt, start PO at 400 mg bid per card recommendations. -SR, HR 80s, ok to transfer to [address] [place] [address]. Afib RVR, hypotension, CP Hallicat 8/2 due to hypotension and afib rvr, bolused -appreciate card input -Off Amiodarone gtt -Amiodarone 400 mg po BID, when BP better start Atenolol Back pain, s/p bone marrow bx Pain better controlled -continue [place], can't have Morphine due to low bp -Ativan PRN CKD stage III Continue with hydration stable History of TIA History of cerebral aneurysm Monitor neuro status Control blood pressure Avoid anticoagulants due to thrombocytopenia, SCDs for DVT prophylaxis Pepcid for GI prophylaxis PT for eval and treatment Bowel regimen PRN ordered Patient's condition guarded Labs pending will be transfer to [facility] to start chemo D/W pt D/W Dr. Duffy D/W RN This patient was seen by myself and Dr. Duffy, this note is written on his behalf (Tina Blair) Assessment/Plan pt seen and examined as above labs reviewed plan of care dw climatology professor dw rn dw pt cond guarded (Konrad Duffy MD) Problem Qualifiers (1) Sepsis: Qualified Code: A41.9 - Sepsis, due to unspecified organism (2) Anemia: Qualified Code: D64.9 - Anemia, unspecified type (3) Elevated white blood cell count: Qualified Code: D72.829 - Leukocytosis, unspecified type (4) Pneumonia: Qualified Code: J18.1 - Pneumonia of left lower lobe due to infectious organism (5) Low blood pressure: Qualified Code: I95.9 - Hypotension, unspecified hypotension type Tina Blair Mar 30, 2017 11:40 Konrad Duffy MD Mar 30, 2017 13:39 (5) Low blood pressure: Qualified Code: I95.9 - Hypotension, unspecified hypotension type Tina Blair Mar 30, 2017 11:40 Konrad Duffy MD Mar 30, 2017 13:39 (3) Elevated white blood cell count: Qualified Code: D72.829 - Leukocytosis, unspecified type (4) Pneumonia: Qualified Code: J18.1 - Pneumonia of left lower lobe due to infectious organism (5) Low blood pressure: Qualified Code: I95.9 - Hypotension, unspecified hypotension type Tina Blair Mar 30, 2017 11:40 Konrad Duffy MD Mar 30, 2017 13:39
[2017-03-30] MEDS: GRANISETRON HCL 1 MG TAB PO SCH (13:00)
[2017-03-30] MEDS: RESP: ALBUTEROL 2.5 MG/IPRATROPIUM 0.5 MG NEB (PRN) INH ×2 (15:59→19:56)
[2017-03-30] MEDS: SODIUM CHLOR 0.9% 1000 ML INJ 1,000 ML IV SCH ×2 (16:30→19:04)
[2017-03-30] MEDS: GRANISETRON HCL 1 MG/ML VIAL IV PUSH SCH (17:28)
[2017-03-30] MEDS: TERAZOSIN HCL 5 MG CAP PO SCH ×2 (17:36→18:27)
[2017-03-30] MEDS: SODIUM CHLOR 0.9% IV SCH (18:35)
[2017-03-30] MEDS: DECITABINE IV SCH (18:35)
[2017-03-30] MEDS: AMIODARONE 200 MG TAB PO SCH (20:07)
[2017-03-30] MEDS: lamoTRIgine 25 MG TAB PO SCH (21:00)
[2017-03-30] MEDS: TEMAZEPAM 15 MG CAP PO PRN (22:13)
[2017-03-31] VITALS (14 sets, daily range): BP systolic 90–125; BP diastolic 57–77; PULSE 80–134; RESP 18–30; TEMP 97.6–100.1; O2SAT 90–95
[2017-03-31] MEDS ORDERED: DIGOXIN 0.25 MG TAB PO SCH (04:15)
[2017-03-31] MEDS: LEVOTHYROXINE SODIUM 100 MCG TAB PO SCH (04:40)
[2017-03-31] MEDS: ACETAMINOPHEN/HYDROcodone 325 MG/10 MG TAB PO PRN ×3 (05:50→22:22)
[2017-03-31 06:05] LABS: HEMATOCRIT 23.9 % (35.0-46.0); MEAN CELL VOLUME 90.9 FL (80.0-100.0); MEAN CORPUSCULAR HEMOGLOBIN 29.7 PG (27.0-34.0); MEAN CORPUSCULAR HGB CONC 32.7 % (32.0-36.0); PLATELET COUNT 66 TH/MM3 (150-450); RED BLOOD COUNT 2.63 MIL/MM3 (4.00-5.30); RED CELL DISTRIBUTION WIDTH 18.4 % (11.6-17.2)
[2017-03-31 06:11] LABS: HEMO FLAGS AUTO DIFF
[2017-03-31 06:25] LABS: ALT (GPT) 32 U/L (10-53); ANION GAP 7 MEQ/L (5-15); AST (GOT) 43 U/L (15-37); BICARBONATE 24.9 MEQ/L (21.0-32.0); BLOOD UREA NITROGEN 14 MG/DL (7-18); CHLORIDE 107 MEQ/L (98-107); GLOMERULAR FILTRATION RATE 57 ML/MIN (>89); POTASSIUM 3.8 MEQ/L (3.5-5.1); SODIUM (NA) 139 MEQ/L (136-145)
[2017-03-31 06:27] LABS: ALKALINE PHOSPHATASE 86 U/L (45-117); TOTAL BILIRUBIN ADULT 0.3 MG/DL (0.2-1.0)
[2017-03-31] MEDS: SODIUM CHLOR 0.9% 1000 ML INJ 1,000 ML IV SCH ×2 (07:07→19:10)
[2017-03-31] MEDS: AZTREONAM INJ 2,000 MG in SODIUM CHLORIDE 0.9% INJ 100 ML IV SCH (08:01)
[2017-03-31] MEDS: RESP: ALBUTEROL 2.5 MG/IPRATROPIUM 0.5 MG NEB (PRN) INH (08:51)
[2017-03-31] MEDS: SODIUM CHLORIDE 0.9% FLUSH 10 ML FLUSH IV FLUSH SCH ×2 (09:00→21:28)
[2017-03-31] MEDS: ALLOPURINOL 100 MG TAB PO SCH ×2 (09:16→21:29)
[2017-03-31] MEDS: ATORVASTATIN 40 MG TAB PO SCH (09:16)
[2017-03-31] MEDS: FAMOTIDINE 20 MG TAB PO SCH ×2 (09:16→21:28)
[2017-03-31] MEDS: AMIODARONE 200 MG TAB PO SCH (09:16)
[2017-03-31] MEDS: NYSTATIN SUSP 500,000 U/5 ML CUP SWISH-SWAL SCH ×4 (09:16→21:28)
[2017-03-31 09:21] LABS: POLYS (SEG NEUTROPHILS) 32 % (16-70)
[2017-03-31 09:29] LABS: BANDS 1 % (0-6); BLASTS 21 % (0-0); METAMYELOCYTES 1 % (0-1); MYELOCYTES 7 % (0-0); NEUTROPHIL # MANUAL DIFF 14.4 TH/MM3 (1.8-7.7); WBC DIFF SAMPLE 100
[2017-03-31 09:30] LABS: PLATELET ESTIMATE SMEAR LOW (NORMAL); PLATELET MORPHOLOGY NORMAL (NORMAL); SCAN/DIFF FINAL DIFF MANUAL
--- NOTE | 2017-03-31 10:06 | PD.ONC.PN ---
Subjective Subjective Remarks Tmax 100.1 overnight. Patient has been short of breath and tachycardic overnight. Tolerated Dacogen yesterday. Objective Data Date Time Temp Pulse Resp B/P Pulse Ox O2 Delivery O2 Flow Rate FiO2 03/31/17 08:52 92 Nasal Cannula 6.00 03/31/17 08:00 100.1 130 20 119/58 92 03/31/17 07:07 16 03/31/17 04:25 124 03/31/17 04:00 97.6 120 18 90/57 90 03/31/17 00:09 86 03/30/17 23:52 98.7 89 18 99/55 92 03/30/17 20:18 129 03/30/17 20:02 124 20 105/56 99 03/30/17 19:58 96 Nasal Cannula 3.00 03/30/17 19:40 122 18 94/52 95 03/30/17 19:20 120 20 97/53 94 03/30/17 19:00 97.1 76 18 90/51 94 03/30/17 16:00 96.3 83 22 124/59 94 03/30/17 12:10 97.7 76 22 105/59 93 03/30/17 12:00 72 03/30/17 11:30 98.6 119 20 106/50 93 03/30/17 11:00 87 03/30/17 10:13 94 Nasal Cannula 2.00 03/31/17 03/31/17 03/31/17 07:00 15:00 23:00 Intake Total 720 ml Balance 720 ml Result Diagram: 03/31/17 0530 03/31/17 0530 Laboratory Results Laboratory Tests Test 03/30/17 03/31/17 10:20 05:30 Blood Type B NEGATIVE Antibody Screen NEGATIVE Blood Bank Comment White Blood Count 35.0 TH/MM3 Red Blood Count 2.63 MIL/MM3 Hemoglobin 7.8 GM/DL Hematocrit 23.9 % Mean Corpuscular Volume 90.9 FL Mean Corpuscular Hemoglobin 29.7 PG Mean Corpuscular Hemoglobin 32.7 % Concent Red Cell Distribution Width 18.4 % Platelet Count 66 TH/MM3 Mean Platelet Volume 8.4 FL Neutrophils (%) (Auto) % Lymphocytes (%) (Auto) % Monocytes (%) (Auto) % Eosinophils (%) (Auto) % Basophils (%) (Auto) % Neutrophils # (Auto) TH/MM3 Lymphocytes # (Auto) TH/MM3 Monocytes # (Auto) TH/MM3 Eosinophils # (Auto) TH/MM3 Basophils # (Auto) TH/MM3 CBC Comment AUTO DIFF Differential Total Cells 100 Counted Neutrophils % (Manual) 32 % Band Neutrophils % 1 % Lymphocytes % 21 % Monocytes % 17 % Neutrophils # (Manual) 14.4 TH/MM3 Metamyelocytes 1 % Myelocytes 7 % Differential Comment FINAL DIFF MANUAL Atypical Lymphocytes % Blastocytes 21 % Platelet Estimate LOW Platelet Morphology Comment NORMAL Sodium Level 139 MEQ/L Potassium Level 3.8 MEQ/L Chloride Level 107 MEQ/L Carbon Dioxide Level 24.9 MEQ/L Anion Gap 7 MEQ/L Blood Urea Nitrogen 14 MG/DL Creatinine 0.97 MG/DL Estimat Glomerular Filtration 57 ML/MIN Rate Random Glucose 105 MG/DL Calcium Level 7.8 MG/DL Total Bilirubin 0.3 MG/DL Aspartate Amino Transf 43 U/L (AST/SGOT) Alanine Aminotransferase 32 U/L (ALT/SGPT) Alkaline Phosphatase 86 U/L Total Protein 5.4 GM/DL Albumin 1.9 GM/DL Administered Medications Medications (Trade) Dose Ordered Sig/Tylor Route PRN Reason Start Time Stop Time Status Last Admin Dose Admin Sodium Chloride (NS 1000 ml Inj) 1,000 ml @ 83 mls/hr Q12H3M IV 03/25/17 23:14 03/30/17 16:30 Sodium Chloride (NS Flush) 2 ml BID IV FLUSH 03/26/17 09:00 03/30/17 08:27 Acetaminophen (Tylenol) 650 mg Q4H PRN PO TEMP > 100.4 03/25/17 23:15 03/30/17 08:26 Ondansetron HCl (Zofran Inj) 4 mg Q6H PRN IVP NAUSEA OR VOMITING 03/25/17 23:15 03/29/17 21:36 Acetaminophen 650 mg 650 mg Q6H PRN PO PAIN SCALE 1 TO 2 03/25/17 23:15 03/26/17 08:14 Aztreonam/Sodium Chloride (Azactam Inj/NS Inj) 100 ml @ 200 mls/hr Q8H IV 03/26/17 07:00 03/31/17 08:01 Famotidine (Pepcid) 10 mg BID PO 03/26/17 09:00 03/31/17 09:16 Morphine Sulfate (Morphine Inj) 2 mg Q3H PRN IV PUSH pain 3-10 03/25/17 23:30 03/27/17 09:50 Temazepam (Restoril) 15 mg HS PRN PO insomnia 03/26/17 00:30 03/30/17 22:13 Allopurinol (Zyloprim) 100 mg BID PO 03/26/17 09:00 03/31/17 09:16 Nystatin (Mycostatin Liq) 5 ml QID SWISH-SWAL 03/26/17 18:00 03/31/17 09:16 Magnesium Hydroxide (Milk Of Magnesia Liq) 30 ml DAILY PRN PO constipation 03/27/17 13:45 03/29/17 21:34 Atorvastatin Calcium (Lipitor) 40 mg DAILY PO 03/28/17 09:00 03/31/17 09:16 Levothyroxine Sodium (Synthroid) 100 mcg DAILY@06 PO 03/28/17 06:00 03/31/17 04:40 Acetaminophen/ Hydrocodone Bitart ([place] 10-325 Mg) 1 tab Q4H PRN PO PAIN 7-10 03/28/17 09:15 03/31/17 05:50 Lorazepam (Ativan) 1 mg Q6H PRN PO ANXIETY 03/28/17 09:15 03/30/17 22:13 Granisetron HCl (Kytril) 2 mg Q24H PO 03/30/17 13:00 04/03/17 13:01 03/30/17 13:00 Granisetron HCl 1 mg 1 mg Q24H IV PUSH 03/30/17 13:30 04/03/17 13:31 03/30/17 17:28 Decitabine/Sodium Chloride (Dacogen Inj/NS 250 ml Inj) 250 ml @ 250 mls/hr Q24H IV 03/30/17 14:00 04/03/17 14:59 03/30/17 18:35 Amiodarone HCl (Cordarone) 400 mg Q12HR PO 03/30/17 21:00 03/31/17 09:16 Objective Remarks GENERAL: Middle aged female supine in bed on NRB mask SKIN: Warm and dry. HEAD: Normocephalic. EYES: No injection or drainage. NECK: Supple, trachea midline. CARDIOVASCULAR: +S1/S2, tachy, irregular RESPIRATORY: diminished at bases, scattered rhonchi GASTROINTESTINAL: Abdomen soft, non-tender, nondistended. EXTREMITIES: No cyanosis NEUROLOGICAL: awake and alert. Assessment/Plan Problem List: (1) AML (acute myeloid leukemia) Status: Acute Plan: --Bone marrow biopsy indicates findings consistent with AML. FLT-3, CEPBA and NPM-1 analysis pending to help us prognosticate further, cytogenetics are pending. -- poor candidate for intensive induction remission therapy with anthracycline/ Cytarabine or HiDAC due to her cardiac and pulmonary issues and borderline performance status. --on allopurinol for tumor lysis prophylaxis --03/30/17: Dacogen day 1 started --03/31/17: [place] [facility] [place], tachycardia, hypotension (2) Atrial fibrillation with RVR Status: Acute Plan: -- A. fib with RVR associated with transient chest pain: --cardiology following --on amiodarone. Assessment Ms. Richard is a 66-year-old female with a 3-week history of progressive malaise, fatigue and weakness. She reports soreness of the throat and a dry cough, both of which have been chronic. She presented to the emergency department for further workup and management because her symptoms of fatigue progressed to the point where she had difficulty walking from her bedroom to her restroom. She called EMS last night due to the severity of the symptoms. Blood work performed in the emergency department indicates findings consistent with anemia, thrombocytopenia, her WBCs are grossly abnormal with findings of numerous immature cells and blasts in the peripheral circulation. 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 Peripheral smear was formally reviewed by our hematocrit pathologist who assessed the findings to be consistent with a high- grade myeloid malignancy most consistent with acute myeloid leukemia. Plan 1. [place] [facility] [place] 2. monitor CBC, CMP, uric acid, LDH 3. supportive care Attending Statement The exam, history, and the medical decision-making described in the above note were completed with the assistance of the mid-level provider. I reviewed and agree with the findings presented. I attest that I had a [id number] encounter with the patient on the same day, and personally performed and documented my assessment and findings in the medical record. Pt developed A.fib RVR, hypoxia and confusion after the Dacogen. She was transferred to ICU. Still tachycardic. Continue supportive care. Hold Dacogen for now. Discussed with pt and her son. Problem Qualifiers (1) AML (acute myeloid leukemia): Qualified Code: C92.00 - Acute myeloid leukemia not having achieved remission Lidia Tracey Mar 31, 2017 10:06 Chad Toledo MD Mar 31, 2017 12:03
--- NOTE | 2017-03-31 10:18 | RADRPT ---
EXAM DATE/TIME: 03/31/2017 09:53 [place] COMPARISON: CHEST PA & LAT, March 25, 2017, 20:48. CHEST SINGLE AP, November 18, 2014, 19:45. INDICATIONS : Shortness of breath and crackles in lung sounds. MEDICAL HISTORY : Cerebrovascular disease. Hypertension. Seizures. Brain aneurysm. SURGICAL HISTORY : None. ENCOUNTER: Initial ACUITY: 1 day PAIN SCORE: 0/10 LOCATION: chest FINDINGS: Portable AP view of the chest demonstrates a normal-sized cardiac silhouette. There is a left basilar pleural-parenchymal opacity with linear opacity in the left midlung zone. Right lung demonstrates no abnormality. No pneumothorax is seen. CONCLUSION: New left basilar opacity with features characteristic of pleural effusion with associated volume loss and/or airspace consolidation. Raoul Jeffries MD on March 31, 2017 at 10:16 Board Certified Radiologist. This report was verified electronically.
--- NOTE | 2017-03-31 10:53 | HHI.PR ---
Subjective Subjective Remarks disoriented, thought she was at [employer] reoriented, recognizes undersigned restless hypoxic, dropped sats on NRBM tachy, ST, HR 130s febrile 100.1 getting ready to tx to [facility] [place] CXR being done Review of Systems Constitutional Constitutional Remarks 12 point ros difficult to complete Vitals/Results Intake & Output 03/30/17 03/30/17 03/31/17 15:00 23:00 07:00 Intake Total 580 ml 720 ml Balance 580 ml 720 ml Intake Oral 480 ml 720 ml IV Total 100 ml # Voids 2 1 2 Vital Signs Vital Signs Date Time Temp Pulse Resp B/P Pulse Ox O2 Delivery O2 Flow Rate FiO2 03/31/17 08:52 92 Nasal Cannula 6.00 03/31/17 08:00 100.1 130 20 119/58 92 03/31/17 07:07 16 03/31/17 04:25 124 03/31/17 04:00 97.6 120 18 90/57 90 03/31/17 00:09 86 03/30/17 23:52 98.7 89 18 99/55 92 03/30/17 20:18 129 03/30/17 20:02 124 20 105/56 99 03/30/17 19:58 96 Nasal Cannula 3.00 03/30/17 19:40 122 18 94/52 95 03/30/17 19:20 120 20 97/53 94 03/30/17 19:00 97.1 76 18 90/51 94 03/30/17 16:00 96.3 83 22 124/59 94 03/30/17 12:10 97.7 76 22 105/59 93 03/30/17 12:00 72 03/30/17 11:30 98.6 119 20 106/50 93 03/30/17 11:00 87 CBC/BMP: 03/31/17 0530 03/31/17 0530 Lab Results Laboratory Tests Test 03/31/17 05:30 White Blood Count 35.0 TH/MM3 Red Blood Count 2.63 MIL/MM3 Hemoglobin 7.8 GM/DL Hematocrit 23.9 % Mean Corpuscular Volume 90.9 FL Mean Corpuscular Hemoglobin 29.7 PG Mean Corpuscular Hemoglobin 32.7 % Concent Red Cell Distribution Width 18.4 % Platelet Count 66 TH/MM3 Mean Platelet Volume 8.4 FL Neutrophils (%) (Auto) % Lymphocytes (%) (Auto) % Monocytes (%) (Auto) % Eosinophils (%) (Auto) % Basophils (%) (Auto) % Neutrophils # (Auto) TH/MM3 Lymphocytes # (Auto) TH/MM3 Monocytes # (Auto) TH/MM3 Eosinophils # (Auto) TH/MM3 Basophils # (Auto) TH/MM3 CBC Comment AUTO DIFF Differential Total Cells 100 Counted Neutrophils % (Manual) 32 % Band Neutrophils % 1 % Lymphocytes % 21 % Monocytes % 17 % Neutrophils # (Manual) 14.4 TH/MM3 Metamyelocytes 1 % Myelocytes 7 % Differential Comment FINAL DIFF MANUAL Atypical Lymphocytes % Blastocytes 21 % Platelet Estimate LOW Platelet Morphology Comment NORMAL Sodium Level 139 MEQ/L Potassium Level 3.8 MEQ/L Chloride Level 107 MEQ/L Carbon Dioxide Level 24.9 MEQ/L Anion Gap 7 MEQ/L Blood Urea Nitrogen 14 MG/DL Creatinine 0.97 MG/DL Estimat Glomerular Filtration 57 ML/MIN Rate Random Glucose 105 MG/DL Calcium Level 7.8 MG/DL Total Bilirubin 0.3 MG/DL Aspartate Amino Transf 43 U/L (AST/SGOT) Alanine Aminotransferase 32 U/L (ALT/SGPT) Alkaline Phosphatase 86 U/L Total Protein 5.4 GM/DL Albumin 1.9 GM/DL Physical Exam General General Appearance: Well Developed, Well Nourished, No Acute Distress, Anxious , Obese Eyes Eye Exam: Pupils Equal, Pupils Reactive Ears & Nose Ears & Nose Exam: Nasal Mucosa [place] Throat Throat Exam: Oral Mucosa [place] & Moist Neck Neck Exam: Neck Supple, Trachea Midline Pulmonary Resp Exam: Breath Sounds Equal, Decreased Bases Resp Remarks bibasilar rales Cardiology CV Exam: Regular, Normal Sinus Rhythm, Good Perfusion Gastrointestinal/Abdomen GI Exam: Soft, Non-Tender, Bowel Sounds Present, Non-Distended Musculoskeletal MS Exam: Joints Intact Integumentary Skin Exam: Warm, Dry Extremeties Extremities Exam: No Edema, Pedal Pulses Palpable Neurologic Neuro Exam: Alert, Awake, Speech Clear, Moving All Extremities, No Focal Deficits Psychiatric Psych Exam: Appropriate Responses VTE Prophylaxis VTE Prophylaxis Device: SCDs Assessment/Plan Problem List: (1) Sepsis (2) Anemia (3) Thrombocytopenia (4) Elevated white blood cell count (5) Pneumonia (6) CKD (chronic kidney disease) stage 3, GFR 30-59 ml/min (7) AML (acute myeloid leukemia) (8) Low blood pressure (9) Tachycardia (10) Hx TIA/stroke w/o resid (11) hx cerebral aneurysm (12) Atrial fibrillation with RVR Assessment/Plan 66-year-old female admitted with sepsis, fever, malaise, fatigue. Found with pneumonia, leukocytosis, anemia, thrombocytopenia. Early sepsis, pneumonia Continue with antibiotics, Azactam, off Levaquin Continue with supplemental oxygen Follow cultures-negative so far -Continue DuoNeb's as needed -WBC elevated, 35 -febrile 100.1, tachy, hypoxic will be tx to ICU Fatigue malaise, noted with significant WBC abnormalities. Possible acute myeloid leukemia. Pancytopenia Status post bone marrow biopsy 03/26/2017 -Echo done, EF 55% -Continue with allopurinol, patient noted with elevated uric acid level and LDH. Patient at risk for tumor lysis syndrome once treatment begins. -Plat 66, HH 7.8/23.9-defer blood product administration to hematology Appreciate Dr. Yarbrough's input, bone marrow bx + AML. Because of pulmonary and cardiac status, she is not a candidate for intensive induction remission therapy with anthracycline/Cytarabine or HiDAC, therefore treatment will consist of Dacogen. -Received Dacogen yesterday Afib RVR, hypotension, CP Hallicat / due to hypotension and afib rvr, bolused -appreciate card input -Off Amiodarone gtt -Amiodarone 400 mg po BID, when BP better start Atenolol -given Dig overnight due to ST, HR 130 Back pain, s/p bone marrow bx -continue [place], can't have Morphine due to low bp -Ativan PRN CKD stage III Continue with hydration stable History of TIA History of cerebral aneurysm Monitor neuro status Control blood pressure Avoid anticoagulants due to thrombocytopenia, SCDs for DVT prophylaxis Pepcid for GI prophylaxis PT for eval and treatment Bowel regimen PRN ordered Patient's condition guarded Tx to ICU Monitor closely, may need to consult CCM son at [facility] advance directives partially completed. Will talk to pt when she is less confused, pt. and family had discussed code status and comfort measures if she feels that she can't tolerate treatment Labs in am D/W pt/son D/W Dr. Duffy/Eddie Tracey D/W RN This patient was seen by myself and Dr. Duffy, this note is written on his behalf Problem Qualifiers (1) Sepsis: Qualified Code: A41.9 - Sepsis, due to unspecified organism (2) Anemia: Qualified Code: D64.9 - Anemia, unspecified type (3) Elevated white blood cell count: Qualified Code: D72.829 - Leukocytosis, unspecified type (4) Pneumonia: Qualified Code: J18.1 - Pneumonia of left lower lobe due to infectious organism (5) AML (acute myeloid leukemia): Qualified Code: C92.00 - Acute myeloid leukemia not having achieved remission (6) Low blood pressure: Qualified Code: I95.9 - Hypotension, unspecified hypotension type Tina Blair [facility] Mar 31, 2017 10:53
[2017-03-31 11:18] LABS: URIC ACID 4.7 MG/DL (2.6-6.0)
[2017-03-31] MEDS: GRANISETRON HCL 1 MG TAB PO SCH (11:36)
[2017-03-31] MEDS: GRANISETRON HCL 1 MG/ML VIAL IV PUSH SCH (11:37)
[2017-03-31] MEDS ORDERED: FUROSEMIDE 20 MG/2 ML VIAL IV PUSH ONE (12:00)
[2017-03-31] MEDS: RESP: ALBUTEROL 2.5 MG/IPRATROPIUM 0.5 MG NEB (SCH) NEB ×3 (12:49→20:46)
--- NOTE | 2017-03-31 13:19 | PD.CONS ---
HPI Service [facility] Hypoxia, Afib RVR Primary Care Physician No Primary Care Physician History of Present Illness This is a 66-year-old female, that presented to the hospital with shortness of breath productive cough and generalized fatigue upon admission. Subsequent laboratory and imaging studies reveal a pneumonia. 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 Since admission the patient was placed on empiric antibiotic Azactam. Blood culture negative growth today, urine culture showed 50-100,000 of gram-positive chance. Hematology oncology initiated Dacogen first dose yesterday. The patient was noted to have a cardiac rhythm A. fib RVR cardiology was consulted, Dr. Chang the patient was placed on amiodarone 400 mg twice a day received a dose of digoxin last evening. The patient early this a.m., had A. fib RVR with dyspnea and hypoxemia with O2 sat duration in the 80s. Critical care medicine was consulted. Upon meeting and evaluating the patient the patient was noted to be in a sinus tachycardia with a heart rate [id number], with an O2 saturation on nonrebreather of 91-92%. The patient received 20 mg IV Lasix upon arrival, with subsequent diuresis of approximately 1 L, and decreased in FiO2 requirements. The patient was noted to have a significant leukocytosis, with 1 % bands, pro-calcitonin level was drawn ID was consulted. 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 The patient reports that she quit smoking 4 years ago. Blood Disorders: No Heart Rhythm Problems: No Cancer: No Cardiovascular Problems: Yes High Cholesterol: Yes Chest Pain: No Congestive Heart Failure: No Diabetes: No Diminished Hearing: No Endocrine: Yes Gastrointestinal Disorders: No Genitourinary: No Hypertension: Yes Immune Disorder: No Implanted Vascular Access Dvce: No Musculoskeletal: Yes (back) Neurologic: Yes (brain aneurysms) Psychiatric: No Reproductive: No Respiratory: No Myocardial Infarction: Yes (10/07) Thyroid Disease: Yes (Hypothyrodism) Menopausal: Yes Past Surgical History Narrative Surgical The patient's past surgical history is significant for a , appendectomy , back surgery. Abdominal Surgery: Yes Appendectomy: Yes Section: Yes Other Surgery: Yes (, appendecomy, back) Social History Alcohol Use: No Tobacco Use: Yes (quit 2012) Substance Use: No Allergies-Medications Allergies-Medications (Allergen,Severity, Reaction): Coded Allergies: Penicillin (Verified Allergy, Severe, 03/25/17) Reported Meds & Prescriptions Reported Meds & Active Scripts Active Reported Atorvastatin (Atorvastatin Calcium) 40 Mg Tab 40 Mg PO DAILY Atenolol 50 Mg Tab 50 Mg PO BID Lorazepam 1 Mg Tab 1 Mg PO Q6H PRN Zestoretic (Lisinopril-Hctz) 20-12.5 Mg Tab 1 Tab PO BID Percocet (Oxycodone-Acetaminophen) 5-325 mg Tab 1 Tab PO Q6H PRN Terazosin (Terazosin HCl) 5 Mg Cap 5 Mg PO AC DINNER Levothyroxine (Levothyroxine Sodium) 100 Mcg Tab 100 Mcg PO DAILY Lamictal (Lamotrigine) 100 Mg Tab 50 Mg PO HS ROS Review of Systems Except as stated in HPI: all other systems reviewed are Neg General / Constitutional: No: Fever Eyes: No: Visual changes HEENT: No: Headaches Cardiovascular: No: Chest Pain or Discomfort Respiratory: No: Shortness of Breath Gastrointestinal: No: Abdominal Pain Genitourinary: No: Dysuria Musculoskeletal: No: Pain Skin: No Rash Neurologic: No: Weakness Psychiatric: No: Depression Endocrine: No: Polydipsia Hematologic/Lymphatic: No: Easy Bruising Past Family Social History Allergies: Coded Allergies: Penicillin (Verified Allergy, Severe, 03/25/17) *MDRO Multi-Drug Resistant Organism (Verified Adverse Reaction, Unknown, ) MRSA (abscess) 01/21/17 Physical Exam Vital Signs Vital Signs Date Time Temp Pulse Resp B/P Pulse Ox O2 Delivery O2 Flow Rate FiO2 03/31/17 12:00 99.4 134 25 106/62 90 03/31/17 08:52 92 Nasal Cannula 6.00 03/31/17 08:00 100.1 130 20 119/58 92 03/31/17 07:07 16 03/31/17 04:25 124 03/31/17 04:00 97.6 120 18 90/57 90 03/31/17 00:09 86 03/30/17 23:52 98.7 89 18 99/55 92 03/30/17 20:18 129 03/30/17 20:02 124 20 105/56 99 03/30/17 19:58 96 Nasal Cannula 3.00 03/30/17 19:40 122 18 94/52 95 03/30/17 19:20 120 20 97/53 94 03/30/17 19:00 97.1 76 18 90/51 94 03/30/17 16:00 96.3 83 22 124/59 94 Physical Exam BP 114/78 Pulse 130 O2 sat duration 94% on NRB GENERAL: Obese female in moderate respiratory distress, on NRB mask SKIN: Warm and dry. HEAD: Atraumatic. Normocephalic. EYES: Pupils equal and round. No scleral icterus. No injection or drainage. ENT: No nasal bleeding or discharge. Mucous membranes pink and moist. NECK: Trachea midline. No JVD. CARDIOVASCULAR: Tachycardic rate, regular rhythm. Telemetry sinus tach RESPIRATORY: No accessory muscle use. Clear to auscultation. Breath sounds equal bilaterally. GASTROINTESTINAL: Abdomen soft, protuberant ,non-tender, nondistended. No guarding. MUSCULOSKELETAL: Extremities without clubbing, cyanosis, or edema. No obvious deformities. NEUROLOGICAL: Awake and alert. RASS 0. GCS 14, (confusion) No gross focal/ sensory deficits. Follows commands in all 4 extremities. Laboratory Laboratory Tests Test 03/31/17 05:30 White Blood Count 35.0 Red Blood Count 2.63 Hemoglobin 7.8 Hematocrit 23.9 Mean Corpuscular Volume 90.9 Mean Corpuscular Hemoglobin 29.7 Mean Corpuscular Hemoglobin 32.7 Concent Red Cell Distribution Width 18.4 Platelet Count 66 Mean Platelet Volume 8.4 Neutrophils (%) (Auto) Lymphocytes (%) (Auto) Monocytes (%) (Auto) Eosinophils (%) (Auto) Basophils (%) (Auto) Neutrophils # (Auto) Lymphocytes # (Auto) Monocytes # (Auto) Eosinophils # (Auto) Basophils # (Auto) CBC Comment AUTO DIFF Differential Total Cells 100 Counted Neutrophils % (Manual) 32 Band Neutrophils % 1 Lymphocytes % 21 Monocytes % 17 Neutrophils # (Manual) 14.4 Metamyelocytes 1 Myelocytes 7 Differential Comment FINAL DIFF MANUAL Atypical Lymphocytes Blastocytes 21 Platelet Estimate LOW Platelet Morphology Comment NORMAL Sodium Level 139 Potassium Level 3.8 Chloride Level 107 Carbon Dioxide Level 24.9 Anion Gap 7 Blood Urea Nitrogen 14 Creatinine 0.97 Estimat Glomerular Filtration 57 Rate Random Glucose 105 Uric Acid 4.7 Calcium Level 7.8 Total Bilirubin 0.3 Aspartate Amino Transf 43 (AST/SGOT) Alanine Aminotransferase 32 (ALT/SGPT) Alkaline Phosphatase 86 Total Protein 5.4 Albumin 1.9 Result Diagram: 03/31/17 0530 03/31/17 0530 Imaging Last Impressions Chest X-Ray 03/31/17 0000 Signed Impressions: Service Date/Time: Friday, March 31, 2017 09:53 - CONCLUSION: New left basilar opacity with features characteristic of pleural effusion with associated volume loss and/or airspace consolidation. Raoul Jeffries MD Bone Biopsy CT 03/26/17 0000 Signed Impressions: Service Date/Time: Sunday, March 26, 2017 14:48 - CONCLUSION: 1. Uncomplicated CT guided bone marrow aspirate. 2. Uncomplicated CT guided bone marrow biopsy. Raoul Jeffries MD Lumbar Spine CT [id number] Signed Impressions: Service Date/Time: Sunday, March 26, 2017 01:12 - CONCLUSION: 1. Degenerative disc changes greatest at the L4-5 and L5-S1 levels with broad-based disc osteophyte complexes. There is lateral recess stenosis at the L5-S1 level. 2. Mild retrolisthesis of L5 on S1 with degenerative disc change and broad-based disc osteophyte complex. 3. Narrowing of the neuroforamina bilaterally at the L4-5 and L5-S1 levels. 4. Degenerative disc change. Balaji Solorio MD CT Angiography [id number] Signed Impressions: Service Date/Time: Sunday, March 26, 2017 01:09 - CONCLUSION: 1. Mild consolidation along the left fissure and lower lobe. This could indicate early pneumonia. 2. No evidence of pulmonary embolism. Balaji Solorio MD Septic Shock Reassessment Lungs: Crackles Skin: Warm Peripheral Pulses: Bounding Right Radial Bounding Left Radial Capillary Refill: Brisk Assessment and Plan Assessment and Plan Assessment Hypotension was likely secondary to sepsis Sepsis A. fib RVR with conversion to Sinus tachycardia Respiratory Insufficiency Pneumonia-left lower lobe (left basilar opacity) Persistent leukocytosis Bandemia Pleural effusions Acute myeloid leukemia Anemia Thrombocytopenia CKD stage 3 H/O chronic HTN H/O cerebral aneurysm H/O CVA with residual weakness Hypothyroidism Mild protein calorie malnutrition Morbid obesity Chronic pain Constipation Plan Neurologic: -Ofirmev 1 g every 6 hours when necessary for pain x 24 hours -GCS 14, mild confusion -Discontinue morphine -Maintain sleep hygiene, avoid ICU delirium, maintains stimulation during the day - Restoril 15 mg at bedtime when necessary for insomnia, multiple disruptions at night -[place]tree 10/325 PRN Respiratory: -Maintain O2 sat greater than 92% -Scheduled continue bronchodilators 4 times a day scheduled -Lasix 20mg given 1 dose , may repeat -Wean O2 as tolerated -Maintain head of bed 30 -03/31 CXR-left basilar opacity, pleural effusion Cardiovascular: -Stat 12-lead EKG -Metoprolol 2.5 mg IV every 6 hours when necessary for heart rate greater than 100bpm -Cardiology following- Dr. Chang -Discontinue amiodarone 400 mg twice a day, atorvastatin. Planned Digoxin loading and scheduled dosing -Discontinue Terazosin in the setting of hypotension Renal: - Maintain thomson -- Strict I/Os FEN/GI: -Monitor electrolytes -Maintain nothing by mouth status for now for emergent possible intubation -Bowel regimen Heme/ID: -Hematology oncology following Dr. Yarbrough -Allopurinol continued per hematology oncology-prophylaxis for tumor lysis syndrome -Granisetron scheduled, ondansetron PRN for nausea -Dacogen dosing per Hematology-Oncology Endocrine: -Levothyroxine 100 mcgs/day -Obtain thyroid panel -Glucose monitoring per ICU protocol -- SSI Prophylaxis: GI Prophylaxis Pepcid DVT Prophylaxis -- SCDs No pharmacological DVT prophylaxis in the setting of thrombocytopenia defer to HematologyOncology Lines: PIV x 1, obtain vascular access for additional IV Dispo: This patient remains critically ill with one or more organ systems which are or may become a threat to life. I have spent in excess of 40 minutes discontinuously in the care and management of this patient. This time is exclusive of procedures, and includes, but is not limited to, evaluation of the patient, review of the medical record, discussions with family, consultants, nursing staff, or respiratory therapy, and documentation in the medical record. 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 Discussed with Dr. Chang , Digoxin will be initiated, with the understanding that levels may be slightly decreased with coadministration of Dacogen, will continue to monitor. Sita Gomez MD Mar 31, 2017 13:19
--- NOTE | 2017-03-31 13:22 | PD.CARD.PN ---
Subjective Subjective Remarks Patient seen this morning while on 7th floor Events overnight reviewed with nursing No chest pain, but increased SOB and confusion Objective Medications Current Medications Medications (Trade) Dose Ordered Sig/Tylor Route Start Time Stop Time Status Last Admin (NS 1000 ml Inj) 1,000 ml @ 83 mls/hr Q12H3M IV 03/25/17 23:14 03/30/17 16:30 (NS Flush) 2 ml UNSCH PRN IV FLUSH 03/25/17 23:15 (NS Flush) 2 ml BID IV FLUSH 03/26/17 09:00 03/30/17 08:27 (Tylenol) 650 mg Q4H PRN PO 03/25/17 23:15 03/30/17 08:26 (Zofran Inj) 4 mg Q6H PRN IVP 03/25/17 23:15 03/29/17 21:36 (Tylenol) 650 mg Q6H PRN PO 03/25/17 23:15 03/26/17 08:14 (Narcan Inj) 0.4 mg UNSCH PRN IV 03/25/17 23:15 (Senokot) 17.2 mg Q12H PRN PO 03/25/17 23:15 Lactulose 30 ml 30 ml DAILY PRN PO 03/25/17 23:15 03/31/17 12:16 (Azactam Inj/NS Inj) 100 ml @ 200 mls/hr Q8H IV 03/26/17 07:00 03/31/17 08:01 (Robitussin Dm 200-20 Mg/10 ml Liq) 10 ml Q4H PRN PO 03/25/17 23:15 (Pepcid) 10 mg BID PO 03/26/17 09:00 03/31/17 09:16 (Pill Splitter) 1 ea UNSCH PRN OTHER 03/25/17 23:30 (Restoril) 15 mg HS PRN PO 03/26/17 00:30 03/30/17 22:13 (Zyloprim) 100 mg BID PO 03/26/17 09:00 03/31/17 09:16 (Mycostatin Liq) 5 ml QID SWISH-SWAL 03/26/17 18:00 03/31/17 12:16 (Milk Of Magnesia Liq) 30 ml DAILY PRN PO 03/27/17 13:45 03/29/17 21:34 (Lipitor) 40 mg DAILY PO 03/28/17 09:00 03/31/17 09:16 (LaMICtal) 50 mg HS PO 03/27/17 21:00 (Synthroid) 100 mcg DAILY@06 PO 03/28/17 06:00 03/31/17 04:40 ([place]wood 10-325 Mg) 1 tab Q4H PRN PO 03/28/17 09:15 03/31/17 05:50 (Ativan) 1 mg Q6H PRN PO 03/28/17 09:15 03/30/17 22:13 (Compazine Inj) 5 mg Q4H PRN IV PUSH 03/28/17 09:30 (Kytril) 2 mg Q24H PO 03/30/17 13:00 04/03/17 13:01 03/30/17 13:00 Granisetron HCl 1 mg 1 mg Q24H IV PUSH 03/30/17 13:30 04/03/17 13:31 03/30/17 17:28 (Dacogen Inj/NS 250 ml Inj) 250 ml @ 250 mls/hr Q24H IV 03/30/17 14:00 04/03/17 14:59 03/30/17 18:35 (Cordarone) 400 mg Q12HR PO 03/30/17 21:00 03/31/17 09:16 Vital Signs / I&O Vital Signs Date Time Temp Pulse Resp B/P Pulse Ox O2 Delivery O2 Flow Rate FiO2 03/31/17 12:00 99.4 134 25 106/62 90 03/31/17 08:52 92 Nasal Cannula 6.00 03/31/17 08:00 100.1 130 20 119/58 92 03/31/17 07:07 16 03/31/17 04:25 124 03/31/17 04:00 97.6 120 18 90/57 90 03/31/17 00:09 86 03/30/17 23:52 98.7 89 18 99/55 92 03/30/17 20:18 129 03/30/17 20:02 124 20 105/56 99 03/30/17 19:58 96 Nasal Cannula 3.00 03/30/17 19:40 122 18 94/52 95 03/30/17 19:20 120 20 97/53 94 03/30/17 19:00 97.1 76 18 90/51 94 03/30/17 16:00 96.3 83 22 124/59 94 I/O 03/30/17 03/30/17 03/30/17 03/31/17 03/31/17 03/31/17 07:00 15:00 23:00 07:00 15:00 23:00 Intake Total 3073 ml 580 ml 720 ml Output Total 300 ml Balance 2773 ml 580 ml 720 ml Intake Oral 480 ml 480 ml 720 ml IV Total 2593 ml 100 ml Output Urine Total 300 ml # Voids 2 1 2 # Bowel Movements 0 Physical Exam GENERAL: Significantly SOB SKIN: Warm and dry. HEAD: Atraumatic. Normocephalic. EYES: Pupils equal and round. No scleral icterus. No injection or drainage. ENT: No nasal bleeding or discharge. Mucous membranes pink and moist. NECK: Trachea midline. No JVD. CARDIOVASCULAR: Irregularly irregular RESPIRATORY: No accessory muscle use. Decreased breath sounds bilaterally GASTROINTESTINAL: Abdomen soft, non-tender, nondistended. Hepatic and splenic margins not palpable. MUSCULOSKELETAL: Extremities without clubbing, cyanosis, or edema. No obvious deformities. NEUROLOGICAL: Awake and alert. No obvious cranial nerve deficits. Motor grossly within normal limits. Five out of 5 muscle strength in the arms and legs. Normal speech. PSYCHIATRIC: Appropriate mood and affect; insight and judgment normal. Laboratory Laboratory Tests Test 03/31/17 05:30 White Blood Count 35.0 TH/MM3 Red Blood Count 2.63 MIL/MM3 Hemoglobin 7.8 GM/DL Hematocrit 23.9 % Mean Corpuscular Volume 90.9 FL Mean Corpuscular Hemoglobin 29.7 PG Mean Corpuscular Hemoglobin 32.7 % Concent Red Cell Distribution Width 18.4 % Platelet Count 66 TH/MM3 Mean Platelet Volume 8.4 FL Neutrophils (%) (Auto) % Lymphocytes (%) (Auto) % Monocytes (%) (Auto) % Eosinophils (%) (Auto) % Basophils (%) (Auto) % Neutrophils # (Auto) TH/MM3 Lymphocytes # (Auto) TH/MM3 Monocytes # (Auto) TH/MM3 Eosinophils # (Auto) TH/MM3 Basophils # (Auto) TH/MM3 CBC Comment AUTO DIFF Differential Total Cells 100 Counted Neutrophils % (Manual) 32 % Band Neutrophils % 1 % Lymphocytes % 21 % Monocytes % 17 % Neutrophils # (Manual) 14.4 TH/MM3 Metamyelocytes 1 % Myelocytes 7 % Differential Comment FINAL DIFF MANUAL Atypical Lymphocytes % Blastocytes 21 % Platelet Estimate LOW Platelet Morphology Comment NORMAL Sodium Level 139 MEQ/L Potassium Level 3.8 MEQ/L Chloride Level 107 MEQ/L Carbon Dioxide Level 24.9 MEQ/L Anion Gap 7 MEQ/L Blood Urea Nitrogen 14 MG/DL Creatinine 0.97 MG/DL Estimat Glomerular Filtration 57 ML/MIN Rate Random Glucose 105 MG/DL Uric Acid 4.7 MG/DL Calcium Level 7.8 MG/DL Total Bilirubin 0.3 MG/DL Aspartate Amino Transf 43 U/L (AST/SGOT) Alanine Aminotransferase 32 U/L (ALT/SGPT) Alkaline Phosphatase 86 U/L Total Protein 5.4 GM/DL Albumin 1.9 GM/DL Assessment and Plan Problem List: (1) Paroxysmal atrial fibrillation (2) Hypertension (3) Chest pain (4) AML (acute myeloid leukemia) (5) Thrombocytopenia (6) Anemia Assessment and Plan 1) Afib with RVR over night, now SOB most likely secondary to PNA/CHF/ Tachyarrhythmia 2) DC amio, will attempt to load on digoxin Concern for multiple low blood pressures 3) If BP better, may be able to add BB tomorrow if stable 4) No antiplatelet/anticoagulant due to thrombocytopenia 5) [place] [facility] [place]ifiers (1) Hypertension: Qualified Code: I10 - Essential hypertension (2) Chest pain: Qualified Code: R07.9 - Chest pain, unspecified type (3) AML (acute myeloid leukemia): Qualified Code: C92.00 - Acute myeloid leukemia not having achieved remission (4) Anemia: Qualified Code: D64.9 - Anemia, unspecified type Donal Chang DO Mar 31, 2017 13:22
[2017-03-31] MEDS ORDERED: ASP: Documented allergy to Penicillins or Cephalosporins PRN (13:45)
[2017-03-31] MEDS ORDERED: MISCELLANEOUS PHARMACY INFORMATION XX PRN (13:45)
[2017-03-31] MEDS ORDERED: DIGOXIN 0.5 MG/2 ML VIAL IVS ONE (14:00)
[2017-03-31] MEDS: DECITABINE IV SCH (14:00)
[2017-03-31] MEDS: SODIUM CHLOR 0.9% IV SCH (14:00)
[2017-03-31] MEDS ORDERED: DEXTROSE 50% IN WATER 50 ML VIAL(D50) IV PRN (14:00)
[2017-03-31] MEDS ORDERED: GLUCAGON 1 MG/ML VIAL OTHER PRN (14:00)
[2017-03-31] MEDS ORDERED: SENNOSIDES 8.6 MG TAB PO PRN (14:00)
[2017-03-31] MEDS: ACETAMINOPHEN 1000 MG/100 ML VIAL IV SCH ×2 (14:33→21:28)
[2017-03-31] MEDS: MEROPENEM INJ 1,000 MG in SODIUM CHLORIDE 0.9% INJ 100 ML IV SCH ×2 (14:34→22:22)
--- NOTE | 2017-03-31 15:31 | MB ---
cc: HUBERT ROSARIO MD DATE OF CONSULTATION: 03/31/[address] Gomez. REASON FOR CONSULTATION: Leukocytosis. HISTORY OF PRESENT ILLNESS: This is a 66-year-old white female who was evaluated in the emergency department on 03/25 when she presented with chest pain. she had a white blood cell count of 30.2 and heart rate of 121 and estimated GFR 36 and also platelet count of 67. A Chest x-ray Was performed and it showed partially consolidative left lower lobe infiltrate. The patient had a temperature of 100.1 degrees this a.m. Blood pressure was also down to 90/57 early this morning The patient was admitted for pneumonia and sepsis. She was started on IV antibiotics with Azactam. Blood cultures were taken and have no growth. Urine culture showed mixed bacteria. The patient has cough but no sputum production. She was evaluated by hematology and gives a history that she had a cough for months and also had fatigue for some time. Her peripheral smear showed numerous immature cells and blasts. The smear is suggestive of high-grade myeloid neoplasm. She also had the bone marrow biopsy and it came back with high-grade mild neoplasm patient with acute myeloid leukemia. The patient also developed atrial fibrillation with rapid ventricular response and was put on Amiodarone. She was treated with Dacogen. The white blood cell count has remained elevated but it increased to 35,000 today from 21.6. The patient is complaining that she has not had a bowel movement in five days. She notes pleuritic chest pain on the left breast and on the right breast with deep inspiration and cough. She states that she is not producing any sputum. Chest x-ray Today shows new left basilar opacity. A CT scan of March 26, revealed mild consolidation along the left ischium and left lower lobe. The [facility] of decreased saturation along with increased heart rate in the 130s and altered mental status. She was also having problems with orientation and thought she was at [facility]. She denies nausea or vomiting and has no abdominal pain. She also notes that she has some mild pain in the left side of the chest and points to the left lateral thorax. PAST MEDICAL HISTORY 1. Hypertension 2. Hypothyroidism 3. Chronic obstructive pulmonary disease 4. partial seizures 5. intracranial aneurysm 6. anxiety disorder. 7. Appendectomy. 8. The vein surgery in the left leg. ALLERGIES PENICILLIN MEDICATIONS 1. Azactam 2. Allopurinol. 3. Pepcid. 4. Lamictal. 5. Synthroid. 6. Lipitor. 7. Cordarone 8. Kytril 9. DuoNeb 10. lactulose. SOCIAL HISTORY No tobacco. The patient is a former smoker. No alcohol. No illicit drugs. FAMILY HISTORY Noncontributory. REVIEW OF SYSTEMS Review of systems is significant for chest pain, cough, fatigue, constipation. Otherwise negative on 10-point review. PHYSICAL EXAMINATION: IN GENERAL: This is a moderately obese female who is in no acute distress. She is currently on oxygen via nasal cannula. VITAL SIGNS: Include temperature of 99.4. Blood pressure 113/63. Respirations 20, heart rate 90. HEAD, EYES, EARS, NOSE, AND THROAT: Head atraumatic. Extraocular movements grossly intact, pupils reactive to light. No icterus. Oropharynx no visible lesions. Moist mucosa. NECK: Supple without adenopathy. LUNGS: Has rhonchi at the left side and also at the right base and decreased breath sounds at the left base. HEART: Regular rate and rhythm. No murmurs or rubs or gallops. ABDOMEN: Bowel sounds present, obese, soft, nontender. RECTUM: Rectal was not performed. EXTREMITIES: No clubbing or cyanosis or edema. SKIN: No rash. NEUROLOGIC: Nonfocal. The patient is alert and oriented x3. PSYCHIATRIC: The patient appears anxious. LABORATORY DATA WBC 35.0, platelet 66, hemoglobin 7.8, 21% monocytes, 32% neutrophils, 21% lymphocytes, 17% monocytes and 21% blasts. BUN 14, creatinine 0.97, sodium 139. IMPRESSION 1. Sepsis 2. Pneumonia. Patient with left basilar opacity on CXR. 3. Leukocytosis. Probably related to infection. 4. Acute renal failure. 5. Acute myeloid leukemia. 6. Penicillin allergy. RECOMMENDATIONS 1. Discontinue Azactam, the patient has been receiving Azactam but apparently is not responding. With continued infiltrate in the lung along with white blood cell count elevation now low grade fever and features suggesting sepsis. 2. Meropenem in patient with penicillin allergy. 3. Monitor the temperature and white blood cell count. 4. Monitor clinical status. 5. Obtain blood cultures if temperature rises. Thank you this consultation. I will follow the patient's progress and make further recommendations on followup. Hubert Rosario MD FD/terese /1:16 PM /3:03 PM QASIM
[2017-03-31] MEDS: INSULIN ASPART SUPPLEMENTAL SCALE SQ SCH ×2 (15:55→21:00)
[2017-03-31 15:56] LABS: FREE T4 1.1 NG/DL (0.76-1.46)
[2017-03-31] MEDS: BISACODYL 10 MG SUPP RECTAL PRN (15:56)
[2017-03-31] MEDS: MAGNESIUM HYDROXIDE SUSP 30 ML CUP PO PRN (16:59)
[2017-03-31] MEDS: DIGOXIN 0.5 MG/2 ML VIAL IVS SCH (21:28)
[2017-03-31] MEDS: lamoTRIgine 25 MG TAB PO SCH (21:29)
[2017-03-31] MEDS: DOCUSATE SODIUM 50 MG/SENNA 8.6 MG TAB PO SCH (21:29)
[2017-03-31] MEDS: LORazepam 1 MG TAB PO PRN (22:22)
[2017-03-31] MEDS ORDERED: MORPHINE SULFATE 4 MG/ML INJ IV PRN (23:45)
[2017-04-01] VITALS (15 sets, daily range): BP systolic 73–115; BP diastolic 50–73; PULSE 75–141; RESP 12–24; TEMP 98.3–99.1; O2SAT 92–99
[2017-04-01] MEDS: DIGOXIN 0.5 MG/2 ML VIAL IVS SCH (02:59)
[2017-04-01] MEDS: ACETAMINOPHEN 1000 MG/100 ML VIAL IV SCH ×2 (02:59→08:14)
[2017-04-01] MEDS: LEVOTHYROXINE SODIUM 100 MCG TAB PO SCH (05:08)
[2017-04-01] MEDS: MEROPENEM INJ 1,000 MG in SODIUM CHLORIDE 0.9% INJ 100 ML IV SCH ×3 (05:08→21:47)
[2017-04-01] MEDS: INSULIN ASPART SUPPLEMENTAL SCALE SQ SCH ×4 (06:42→21:00)
[2017-04-01] MEDS: SODIUM CHLOR 0.9% 1000 ML INJ 1,000 ML IV SCH ×2 (07:13→19:16)
[2017-04-01] MEDS: LACTULOSE SYRUP 20 GM/30 ML CUP PO PRN (08:13)
[2017-04-01] MEDS: NYSTATIN SUSP 500,000 U/5 ML CUP SWISH-SWAL SCH ×4 (08:13→21:45)
[2017-04-01] MEDS: DIGOXIN 0.125 MG TAB PO SCH (08:13)
[2017-04-01] MEDS: ALLOPURINOL 100 MG TAB PO SCH ×2 (08:14→21:46)
[2017-04-01] MEDS: FAMOTIDINE 20 MG TAB PO SCH ×2 (08:14→21:46)
[2017-04-01] MEDS: DOCUSATE SODIUM 50 MG/SENNA 8.6 MG TAB PO SCH ×2 (08:14→21:46)
[2017-04-01] MEDS: ATORVASTATIN 40 MG TAB PO SCH (08:14)
[2017-04-01] MEDS: BISACODYL 10 MG SUPP RECTAL PRN (08:14)
[2017-04-01] MEDS: MAGNESIUM HYDROXIDE SUSP 30 ML CUP PO PRN (08:15)
[2017-04-01] MEDS: SODIUM CHLORIDE 0.9% FLUSH 10 ML FLUSH IV FLUSH SCH ×2 (09:00→21:00)
[2017-04-01] MEDS: RESP: ALBUTEROL 2.5 MG/IPRATROPIUM 0.5 MG NEB (SCH) NEB ×4 (09:10→20:00)
[2017-04-01 09:27] LABS: HEMATOCRIT 25.7 % (35.0-46.0); MEAN CELL VOLUME 90.7 FL (80.0-100.0); MEAN CORPUSCULAR HEMOGLOBIN 29.3 PG (27.0-34.0); MEAN CORPUSCULAR HGB CONC 32.3 % (32.0-36.0); PLATELET COUNT 77 TH/MM3 (150-450); RED BLOOD COUNT 2.84 MIL/MM3 (4.00-5.30); RED CELL DISTRIBUTION WIDTH 19.2 % (11.6-17.2); WHITE BLOOD COUNT 40.3 TH/MM3 (4.0-11.0)
[2017-04-01 09:31] LABS: HEMO FLAGS AUTO DIFF
[2017-04-01 09:47] LABS: ANION GAP 5 MEQ/L (5-15); AST (GOT) 59 U/L (15-37); BICARBONATE 30.1 MEQ/L (21.0-32.0); BLOOD UREA NITROGEN 15 MG/DL (7-18); CHLORIDE 104 MEQ/L (98-107); GLOMERULAR FILTRATION RATE 52 ML/MIN (>89); MAGNESIUM 2.5 MG/DL (1.5-2.5); POTASSIUM 4.2 MEQ/L (3.5-5.1); SODIUM (NA) 139 MEQ/L (136-145); URIC ACID 4.5 MG/DL (2.6-6.0)
[2017-04-01 09:51] LABS: ALKALINE PHOSPHATASE 109 U/L (45-117); ALT (GPT) 36 U/L (10-53); LDH SERUM 745 U/L (84-246); TOTAL BILIRUBIN ADULT 0.5 MG/DL (0.2-1.0)
--- NOTE | 2017-04-01 10:00 | PD.ONC.PN ---
Subjective Subjective Remarks Afebrile overnight. On NRB mask. Patient ripped out her thomson catheter this AM, "because I was tired of having it in." She does not like being in [facility]MC and wants to be able to get up to use the bathroom. Objective Data Date Time Temp Pulse Resp B/P Pulse Ox O2 Delivery O2 Flow Rate FiO2 04/01/17 09:16 99 Partial Rebreather 12.00 04/01/17 08:44 18 04/01/17 06:00 75 04/01/17 04:00 98.3 81 20 104/59 96 04/01/17 04:00 85 04/01/17 02:00 126 04/01/17 01:40 98 Partial Rebreather 12.00 04/01/17 00:00 98.4 83 22 115/56 92 04/01/17 00:00 83 03/31/17 23:06 20 03/31/17 22:00 84 03/31/17 20:48 95 Venturi Mask 6.00 50 03/31/17 20:00 98.3 80 22 125/71 94 03/31/17 20:00 80 03/31/17 18:00 120 03/31/17 16:00 98.8 125 30 118/77 91 03/31/17 16:00 125 03/31/17 14:00 85 03/31/17 14:00 132 03/31/17 12:00 99.4 134 25 106/62 90 03/31/17 12:00 132 03/31/17 10:30 130 Result Diagram: 04/01/17 0832 04/01/17 0832 Laboratory Results Laboratory Tests Test 03/31/17 04/01/17 10:39 08:32 Nasal Screen MRSA (PCR) MRSA NOT DETECTED White Blood Count 40.3 TH/MM3 Red Blood Count 2.84 MIL/MM3 Hemoglobin 8.3 GM/DL Hematocrit 25.7 % Mean Corpuscular Volume 90.7 FL Mean Corpuscular Hemoglobin 29.3 PG Mean Corpuscular Hemoglobin 32.3 % Concent Red Cell Distribution Width 19.2 % Platelet Count 77 TH/MM3 Mean Platelet Volume 8.5 FL Neutrophils (%) (Auto) % Lymphocytes (%) (Auto) % Monocytes (%) (Auto) % Eosinophils (%) (Auto) % Basophils (%) (Auto) % Neutrophils # (Auto) TH/MM3 Lymphocytes # (Auto) TH/MM3 Monocytes # (Auto) TH/MM3 Eosinophils # (Auto) TH/MM3 Basophils # (Auto) TH/MM3 CBC Comment AUTO DIFF Sodium Level 139 MEQ/L Potassium Level 4.2 MEQ/L Chloride Level 104 MEQ/L Carbon Dioxide Level 30.1 MEQ/L Anion Gap 5 MEQ/L Blood Urea Nitrogen 15 MG/DL Creatinine 1.06 MG/DL Estimat Glomerular Filtration 52 ML/MIN Rate Random Glucose 102 MG/DL Uric Acid 4.5 MG/DL Calcium Level 8.0 MG/DL Phosphorus Level 2.6 MG/DL Magnesium Level 2.5 MG/DL Total Bilirubin 0.5 MG/DL Aspartate Amino Transf 59 U/L (AST/SGOT) Alanine Aminotransferase 36 U/L (ALT/SGPT) Alkaline Phosphatase 109 U/L Lactate Dehydrogenase 745 U/L Total Protein 5.7 GM/DL Albumin 2.0 GM/DL Culture Results Microbiology Date/Time Procedure Status Source Growth 03/31/17 18:40 Aerobic Blood Culture Received Blood Other Pending 03/31/17 18:40 Anaerobic Blood Culture Received Blood Other Pending 03/31/17 18:45 Aerobic Blood Culture Received Blood Other Pending 03/31/17 18:45 Anaerobic Blood Culture Received Blood Other Pending Administered Medications Medications (Trade) Dose Ordered Sig/Tylor Route PRN Reason Start Time Stop Time Status Last Admin Dose Admin Sodium Chloride (NS 1000 ml Inj) 1,000 ml @ 83 mls/hr Q12H3M IV 03/25/17 23:14 03/27/17 19:33 Sodium Chloride (NS Flush) 2 ml BID IV FLUSH 03/26/17 09:00 03/31/17 21:28 Acetaminophen (Tylenol) 650 mg Q4H PRN PO TEMP > 100.4 03/25/17 23:15 03/30/17 08:26 Ondansetron HCl (Zofran Inj) 4 mg Q6H PRN IVP NAUSEA OR VOMITING 03/25/17 23:15 03/29/17 21:36 Acetaminophen (Tylenol) 650 mg Q6H PRN PO PAIN SCALE 1 TO 2 03/25/17 23:15 03/26/17 08:14 Sennosides (Senokot) 17.2 mg Q12H PRN PO MODERATE - SEVERE CONSTIPATION 03/25/17 23:15 03/31/17 16:59 Famotidine (Pepcid) 10 mg BID PO 03/26/17 09:00 04/01/17 08:14 Temazepam (Restoril) 15 mg HS PRN PO insomnia 03/26/17 00:30 03/30/17 22:13 Allopurinol (Zyloprim) 100 mg BID PO 03/26/17 09:00 04/01/17 08:14 Nystatin (Mycostatin Liq) 5 ml QID SWISH-SWAL 03/26/17 18:00 04/01/17 08:13 Atorvastatin Calcium (Lipitor) 40 mg DAILY PO 03/28/17 09:00 04/01/17 08:14 Lamotrigine (LaMICtal) 50 mg HS PO 03/27/17 21:00 03/31/17 21:29 Levothyroxine Sodium (Synthroid) 100 mcg DAILY@06 PO 03/28/17 06:00 04/01/17 05:08 Acetaminophen/ Hydrocodone Bitart ([place] 10-325 Mg) 1 tab Q4H PRN PO PAIN 7-10 03/28/17 09:15 03/31/17 22:22 Lorazepam (Ativan) 1 mg Q6H PRN PO ANXIETY 03/28/17 09:15 03/31/17 22:22 Granisetron HCl (Kytril) 2 mg Q24H PO 03/30/17 13:00 04/03/17 13:01 03/30/17 13:00 Granisetron HCl 1 mg 1 mg Q24H IV PUSH 03/30/17 13:30 04/03/17 13:31 03/30/17 17:28 Decitabine 40 mg/ Sodium Chloride 250 ml @ 250 mls/hr Q24H IV 03/30/17 14:00 04/03/17 14:59 03/30/17 18:35 Meropenem/Sodium Chloride (Merrem Inj/NS Inj) 100 ml @ 200 mls/hr Q8H IV 03/31/17 14:00 04/01/17 05:08 Acetaminophen (Ofirmev Inj) 1,000 mg Q6H IV 03/31/17 15:00 04/01/17 14:59 04/01/17 08:14 Digoxin (Lanoxin) 0.125 mg DAILY PO 04/01/17 09:00 04/01/17 08:13 Senna/Docusate Sodium (Ramya-Colace) 1 tab BID PO 03/31/17 21:00 04/01/17 08:14 Magnesium Hydroxide (Milk Of Magnesia Liq) 30 ml Q12H PRN PO SEE LABEL COMMENTS 03/31/17 14:00 04/01/17 08:15 Bisacodyl (Dulcolax Supp) 10 mg DAILY PRN RECTAL SEE LABEL COMMENTS 03/31/17 14:00 04/01/17 08:14 Lactulose (Lactulose Liq) 30 ml DAILY PRN PO SEE LABEL COMMENTS 03/31/17 14:00 04/01/17 08:13 Morphine Sulfate (Morphine Inj) 2 mg Q4H PRN IV PAIN 5-10/ BREAKTHROUGH PAIN 03/31/17 23:45 04/01/17 00:44 Objective Remarks GENERAL: Middle aged female upright in bed, on NRB mask. SKIN: Warm and dry. HEAD: Normocephalic. EYES: No injection or drainage. NECK: Supple, trachea midline. CARDIOVASCULAR: +S1/S2, tachy RESPIRATORY: diminished at bases, scattered rhonchi GASTROINTESTINAL: Abdomen soft, non-tender, nondistended. EXTREMITIES: No cyanosis NEUROLOGICAL: aox3. normal speech. Assessment/Plan Problem List: (1) AML (acute myeloid leukemia) Status: Acute Plan: --Bone marrow biopsy indicates findings consistent with AML. FLT-3, CEPBA and NPM-1 analysis pending to help us prognosticate further, cytogenetics are pending. -- poor candidate for intensive induction remission therapy with anthracycline/ Cytarabine or HiDAC due to her cardiac and pulmonary issues and borderline performance status. --on allopurinol for tumor lysis prophylaxis --03/30/17: Dacogen day 1 started --03/31/17: transferred to [facility] [place] d/t hypoxia, tachycardia, hypotension --04/01: hold Dacogen. patient remains hypotensive, tachycardic, hypoxic (2) Atrial fibrillation with RVR Status: Acute Plan: -- A. fib with RVR associated with transient chest pain: --cardiology following --on digoxin Assessment Ms. Richard is a 66-year-old female with a 3-week history of progressive malaise, fatigue and weakness. She reports soreness of the throat and a dry cough, both of which have been chronic. She presented to the emergency department for further workup and management because her symptoms of fatigue progressed to the point where she had difficulty walking from her bedroom to her restroom. She called EMS last night due to the severity of the symptoms. Blood work performed in the emergency department indicates findings consistent with anemia, thrombocytopenia, her WBCs are grossly abnormal with findings of numerous immature cells and blasts in the peripheral circulation. 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 Peripheral smear was formally reviewed by our hematocrit pathologist who assessed the findings to be consistent with a high- grade myeloid malignancy most consistent with acute myeloid leukemia. Plan 1. monitor CBC, CMP, uric acid, LDH Attending Statement The exam, history, and the medical decision-making described in the above note were completed with the assistance of the mid-level provider. I reviewed and agree with the findings presented. I attest that I had a [id number] encounter with the patient on the same day, and personally performed and documented my assessment and findings in the medical record. Still has hypotension and hypoxic. A.fib RVR. On partial non rebreather. Blast count stable. Hold dacogen today. Problem Qualifiers (1) AML (acute myeloid leukemia): Qualified Code: C92.00 - Acute myeloid leukemia not having achieved remission Lidia Tracey Apr 01, 2017 10:00 Chad Toledo MD Apr 01, 2017 11:48
[2017-04-01 10:29] LABS: BANDS 2 % (0-6); BLASTS 20 % (0-0); EOSINOPHILS 1 % (0-4); METAMYELOCYTES 1 % (0-1); MYELOCYTES 8 % (0-0); NEUTROPHIL # MANUAL DIFF 22.6 TH/MM3 (1.8-7.7); PLATELET ESTIMATE SMEAR LOW (NORMAL); PLATELET MORPHOLOGY NORMAL (NORMAL); POLYS (SEG NEUTROPHILS) 45 % (16-70); SCAN/DIFF FINAL DIFF MANUAL; WBC DIFF SAMPLE 100
--- NOTE | 2017-04-01 10:43 | RADRPT ---
EXAM DATE/TIME: 04/01/2017 09:23 [facility] COMPARISON: CHEST SINGLE AP, March 31, 2017, 9:53. INDICATIONS : Shortness of breath- crackle sounds in lungs. MEDICAL HISTORY : Cerebrovascular disease. Hypertension Seizures, Brain aneurysm SURGICAL HISTORY : None. ENCOUNTER: Subsequent ACUITY: 3 days PAIN SCORE: 3/10 LOCATION: Bilateral chest FINDINGS: Rotated AP view of the chest demonstrates a normal-sized cardiac silhouette. There is a stable left b asilar opacity with linear opacity in the left mid to upper lung zone. There is hazy opacity over the right hemithorax. Patient is rotated. No pneumothorax is visualized. CONCLUSION: 1. Stable left basilar opacity likely representing pleural effusion with associated volume loss and/o r consolidation. 2. There is new diffuse hazy opacity over the right lung. However, given the patient's rotation this may explain the appearance and interval change. Suggest attention to this on followup imaging. Raoul Jeffries MD on April 01, 2017 at 10:40 Board Certified Radiologist. This report was verified electronically.
--- NOTE | 2017-04-01 10:43 | HHI.CCPN ---
Subjective Remarks/Hospital Course This is a 66-year-old female, that presented to the hospital with shortness of breath productive cough and generalized fatigue upon admission. Subsequent laboratory and imaging studies reveal a pneumonia. 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 Since admission the patient was placed on empiric antibiotic Azactam. Blood culture negative growth today, urine culture showed 50-100,000 of gram-positive chance. Hematology oncology initiated Dacogen first dose yesterday. The patient was noted to have a cardiac rhythm A. fib RVR cardiology was consulted, Dr. Chang the patient was placed on amiodarone 400 mg twice a day received a dose of digoxin last evening. The patient early this a.m., had A. fib RVR with dyspnea and hypoxemia with O2 sat duration in the 80s. Critical care medicine was consulted. Upon meeting and evaluating the patient the patient was noted to be in a sinus tachycardia with a heart rate [id number], with an O2 saturation on nonrebreather of 91-92%. The patient received 20 mg IV Lasix upon arrival, with subsequent diuresis of approximately 1 L, and decreased in FiO2 requirements. The patient was noted to have a significant leukocytosis, with 1 % bands, pro-calcitonin level was drawn ID was consulted. Subjective: 04/01: The patient required increasing FiO2 requirements overnight. The patient currently on nonrebreather mask O2 saturation 94%. Stat chest x-ray obtain results pending, stat ABG results pending. Discussion with patient and son regarding the probable likelihood of intubation this a.m.. All questions answered. The patient remains nothing by mouth at this time. ID was consulted yesterday regarding the leukocytosis and elevation in temperature, following recommendations. Objective Vital Signs Date Time Temp Pulse Resp B/P Pulse Ox O2 Delivery O2 Flow Rate FiO2 04/01/17 09:16 99 Partial Rebreather 12.00 04/01/17 08:44 18 04/01/17 06:00 75 04/01/17 04:00 98.3 104/59 03/31/17 20:48 50 Intake and Output 03/31/17 03/31/17 04/01/17 08:00 16:00 00:00 Intake Total 720 ml 490 ml 667 ml Output Total 1100 ml 750 ml Balance 720 ml -610 ml -83 ml Result Diagram: 04/01/17 0832 04/01/17 0832 Imaging Last Impressions Chest X-Ray 03/31/17 0000 Signed Impressions: Service Date/Time: Friday, March 31, 2017 09:53 - CONCLUSION: New left basilar opacity with features characteristic of pleural effusion with associated volume loss and/or airspace consolidation. Raoul Jeffries MD Bone Biopsy CT 03/26/17 0000 Signed Impressions: Service Date/Time: Sunday, March 26, 2017 14:48 - CONCLUSION: 1. Uncomplicated CT guided bone marrow aspirate. 2. Uncomplicated CT guided bone marrow biopsy. Raoul Jeffries MD Lumbar Spine CT 03/25/172 Signed Impressions: Service Date/Time: Sunday, March 26, 2017 01:12 - CONCLUSION: 1. Degenerative disc changes greatest at the L4-5 and L5-S1 levels with broad-based disc osteophyte complexes. There is lateral recess stenosis at the L5-S1 level. 2. Mild retrolisthesis of L5 on S1 with degenerative disc change and broad-based disc osteophyte complex. 3. Narrowing of the neuroforamina bilaterally at the L4-5 and L5-S1 levels. 4. Degenerative disc change. Balaji Solorio MD CT Angiography [id number]/25/[id number] Signed Impressions: Service Date/Time: Sunday, March 26, 2017 01:09 - CONCLUSION: 1. Mild consolidation along the left fissure and lower lobe. This could indicate early pneumonia. 2. No evidence of pulmonary embolism. Balaji Solorio MD Objective Remarks BP 119/64 Pulse 123 O2 sat duration 94% on NRB GENERAL: Obese female in moderate respiratory distress, on NRB mask SKIN: Warm and dry. HEAD: Atraumatic. Normocephalic. EYES: Pupils equal and round. No scleral icterus. No injection or drainage. ENT: No nasal bleeding or discharge. Mucous membranes pink and moist. NECK: Trachea midline. No JVD. CARDIOVASCULAR: Tachycardic rate, regular rhythm. Telemetry sinus tach RESPIRATORY: No accessory muscle use. Clear to auscultation. Breath sounds equal bilaterally. GASTROINTESTINAL: Abdomen soft, protuberant ,non-tender, nondistended. No guarding. MUSCULOSKELETAL: Extremities without clubbing, cyanosis, or edema. No obvious deformities. NEUROLOGICAL: Awake and alert. RASS 0. GCS 15 No gross focal/sensory deficits. Follows commands in all 4 extremities. A/P Assessment and Plan Assessment Hypotension was likely secondary to sepsis Sepsis A. fib RVR with conversion to Sinus tachycardia Respiratory Insufficiency Pneumonia-left lower lobe (left basilar opacity) Persistent leukocytosis Bandemia Pleural effusions Acute myeloid leukemia Anemia Thrombocytopenia CKD stage 3 H/O chronic HTN H/O cerebral aneurysm H/O CVA with residual weakness Hypothyroidism Mild protein calorie malnutrition Morbid obesity Chronic pain Constipation Plan Neurologic: -Ofirmev 1 g every 6 hours when necessary for pain x 24 hours -GCS 14, mild confusion -Discontinue morphine -Maintain sleep hygiene, avoid ICU delirium, maintains stimulation during the day - Restoril 15 mg at bedtime when necessary for insomnia, multiple disruptions at night -[place] 10/325 PRN Respiratory: -Maintain O2 sat greater than 92% -Scheduled continue bronchodilators 4 times a day scheduled -Lasix 20mg given 1 dose , may repeat -Wean O2 as tolerated -Maintain head of bed 30 -Repeat EKG -03/31 CXR-left basilar opacity, pleural effusion Cardiovascular: -Stat 12-lead EKG -Metoprolol 2.5 mg IV every 6 hours when necessary for heart rate greater than 100bpm -Cardiology following- Dr. Chang -Discontinue amiodarone 400 mg twice a day, atorvastatin. Planned Digoxin loading and scheduled dosing, per Cardiology Dr. Kwong -Discontinue Terazosin in the setting of hypotension Renal: - Maintain thomson -- Strict I/Os FEN/GI: -Monitor electrolytes -Maintain nothing by mouth status for now for emergent possible intubation -Bowel regimen Heme/ID: -Hematology oncology following Dr. Yarbrough -Allopurinol continued per hematology oncology-prophylaxis for tumor lysis syndrome -Granisetron scheduled, ondansetron PRN for nausea -Dacogen dosing per Hematology-Oncology Endocrine: -Levothyroxine 100 mcgs/day -Obtain thyroid panel -Glucose monitoring per ICU protocol -- SSI Prophylaxis: GI Prophylaxis Pepcid DVT Prophylaxis -- SCDs No pharmacological DVT prophylaxis in the setting of thrombocytopenia defer to HematologyOncology Lines: PIV x 1, obtain vascular access for additional IV Dispo: This patient remains critically ill with one or more organ systems which are or may become a threat to life. I have spent in excess of 30 minutes discontinuously in the care and management of this patient. This time is exclusive of procedures, and includes, but is not limited to, evaluation of the patient, review of the medical record, discussions with family, consultants, nursing staff, or respiratory therapy, and documentation in the medical record. 04/01: Discussed with family and patient the possibility of intubation all questions answered awaiting results of chest x-ray and ABG. Physician Sita Hu MD Apr 01, 2017 10:42
[2017-04-01 10:51] LABS: BLOOD GAS BASE EXCESS 2.8 mmol/L (-2-2); BLOOD GAS HCO3 28 mmol/L (22-26); BLOOD GAS METHEMOGLOBIN 1.3 % (0-2); BLOOD GAS O2 HGB SATURATION 95 % (90-100); BLOOD GAS OXYGEN CONTENT 11.7 Vol % (12.0-20.0); BLOOD GAS PCO2 48 mmHg (38-42); BLOOD GAS PO2 132 mmHg (61-120); BLOOD GAS TOTAL HGB 8.5 G/DL (12.0-16.0); TEMP CORR TO 98.6
[2017-04-01 10:52] LABS: CRITICAL VALUE NO; DRAW SITE RT RADIAL; NUMBER OF ARTERIAL PUNCTURES 1; OXYGEN DEVICE PARTIAL REBREATHER; STAT YES; ULNAR PULSE PRESENT
[2017-04-01] MEDS ORDERED: FUROSEMIDE 40 MG/4 ML VIAL IV PUSH ONE (11:15)
--- NOTE | 2017-04-01 11:17 | PD.CARD.PN ---
Subjective Subjective Remarks Overall less SOB/confusion compared to yesterday No chest pain Telemetry with some Afib with RVR and some sinus tachycardia Objective Medications Current Medications Medications (Trade) Dose Ordered Sig/Tylor Route Start Time Stop Time Status Last Admin (NS 1000 ml Inj) 1,000 ml @ 83 mls/hr Q12H3M IV 03/25/17 23:14 03/27/17 19:33 (NS Flush) 2 ml UNSCH PRN IV FLUSH 03/25/17 23:15 (NS Flush) 2 ml BID IV FLUSH 03/26/17 09:00 03/31/17 21:28 (Tylenol) 650 mg Q4H PRN PO 03/25/17 23:15 03/30/17 08:26 (Zofran Inj) 4 mg Q6H PRN IVP 03/25/17 23:15 03/29/17 21:36 (Tylenol) 650 mg Q6H PRN PO 03/25/17 23:15 03/26/17 08:14 (Narcan Inj) 0.4 mg UNSCH PRN IV 03/25/17 23:15 (Senokot) 17.2 mg Q12H PRN PO 03/25/17 23:15 03/31/17 16:59 (Robitussin Dm 200-20 Mg/10 ml Liq) 10 ml Q4H PRN PO 03/25/17 23:15 (Pepcid) 10 mg BID PO 03/26/17 09:00 04/01/17 08:14 (Pill Splitter) 1 ea UNSCH PRN OTHER 03/25/17 23:30 (Restoril) 15 mg HS PRN PO 03/26/17 00:30 03/30/17 22:13 (Zyloprim) 100 mg BID PO 03/26/17 09:00 04/01/17 08:14 (Mycostatin Liq) 5 ml QID SWISH-SWAL 03/26/17 18:00 04/01/17 08:13 (Lipitor) 40 mg DAILY PO 03/28/17 09:00 04/01/17 08:14 (LaMICtal) 50 mg HS PO 03/27/17 21:00 03/31/17 21:29 (Synthroid) 100 mcg DAILY@06 PO 03/28/17 06:00 04/01/17 05:08 ([place] 10-325 Mg) 1 tab Q4H PRN PO 03/28/17 09:15 03/31/17 22:22 (Ativan) 1 mg Q6H PRN PO 03/28/17 09:15 03/31/17 22:22 (Compazine Inj) 5 mg Q4H PRN IV PUSH 03/28/17 09:30 (Kytril) 2 mg Q24H PO 03/30/17 13:00 04/03/17 13:01 03/30/17 13:00 Granisetron HCl 1 mg 1 mg Q24H IV PUSH 03/30/17 13:30 04/03/17 13:31 03/30/17 17:28 Decitabine 40 mg/ Sodium Chloride 250 ml @ 250 mls/hr Q24H IV 03/30/17 14:00 04/03/17 14:59 03/30/17 18:35 (Merrem Inj/NS Inj) 100 ml @ 200 mls/hr Q8H IV 03/31/17 14:00 04/01/17 05:08 (Ofirmev Inj) 1,000 mg Q6H IV 03/31/17 15:00 04/01/17 14:59 04/01/17 08:14 (D50w (Vial) Inj) 50 ml UNSCH PRN IV 03/31/17 14:00 (Glucagon Inj) 1 mg UNSCH PRN OTHER 03/31/17 14:00 (Lanoxin) 0.125 mg DAILY PO 04/01/17 09:00 04/01/17 08:13 (Ramya-Colace) 1 tab BID PO 03/31/17 21:00 04/01/17 08:14 (Milk Of Magnesia Liq) 30 ml Q12H PRN PO 03/31/17 14:00 04/01/17 08:15 (Senokot) 17.2 mg Q12H PRN PO 03/31/17 14:00 (Dulcolax Supp) 10 mg DAILY PRN RECTAL 03/31/17 14:00 04/01/17 08:14 (Lactulose Liq) 30 ml DAILY PRN PO 03/31/17 14:00 04/01/17 08:13 (Lasix Inj) 40 mg ONCE ONCE IV PUSH 04/01/17 11:15 04/01/17 11:16 Vital Signs / I&O Vital Signs Date Time Temp Pulse Resp B/P Pulse Ox O2 Delivery O2 Flow Rate FiO2 04/01/17 09:16 99 Partial Rebreather 12.00 04/01/17 08:44 18 04/01/17 06:00 75 04/01/17 04:00 98.3 81 20 104/59 96 04/01/17 04:00 85 04/01/17 02:00 126 04/01/17 01:40 98 Partial Rebreather 12.00 04/01/17 00:00 98.4 83 22 115/56 92 04/01/17 00:00 83 03/31/17 23:06 20 03/31/17 22:00 84 03/31/17 20:48 95 Venturi Mask 6.00 50 03/31/17 20:00 98.3 80 22 125/71 94 03/31/17 20:00 80 03/31/17 18:00 120 03/31/17 16:00 98.8 125 30 118/77 91 03/31/17 16:00 125 03/31/17 14:00 85 03/31/17 14:00 132 03/31/17 12:00 99.4 134 25 106/62 90 03/31/17 12:00 132 I/O 03/31/17 03/31/17 03/31/17 04/01/17 04/01/17 04/01/17 07:00 15:00 23:00 07:00 15:00 23:00 Intake Total 720 ml 490 ml 667 ml 512 ml Output Total 1100 ml 750 ml 250 ml Balance 720 ml -610 ml -83 ml 262 ml Intake Oral 720 ml 480 ml 240 ml 360 ml IV Total 10 ml 427 ml 152 ml Output Urine Total 1100 ml 750 ml 250 ml # Voids 2 # Bowel Movements 0 0 0 Physical Exam GENERAL: Significantly SOB SKIN: Warm and dry. HEAD: Atraumatic. Normocephalic. EYES: Pupils equal and round. No scleral icterus. No injection or drainage. ENT: No nasal bleeding or discharge. Mucous membranes pink and moist. NECK: Trachea midline. No JVD. CARDIOVASCULAR: Irregularly irregular RESPIRATORY: No accessory muscle use. Decreased breath sounds bilaterally GASTROINTESTINAL: Abdomen soft, non-tender, nondistended. Hepatic and splenic margins not palpable. MUSCULOSKELETAL: Extremities without clubbing, cyanosis, or edema. No obvious deformities. NEUROLOGICAL: Awake and alert. No obvious cranial nerve deficits. Motor grossly within normal limits. Five out of 5 muscle strength in the arms and legs. Normal speech. PSYCHIATRIC: Appropriate mood and affect; insight and judgment normal. Laboratory Laboratory Tests Test 04/01/17 04/01/17 08:32 10:45 White Blood Count 40.3 TH/MM3 Red Blood Count 2.84 MIL/MM3 Hemoglobin 8.3 GM/DL Hematocrit 25.7 % Mean Corpuscular Volume 90.7 FL Mean Corpuscular Hemoglobin 29.3 PG Mean Corpuscular Hemoglobin 32.3 % Concent Red Cell Distribution Width 19.2 % Platelet Count 77 TH/MM3 Mean Platelet Volume 8.5 FL Neutrophils (%) (Auto) % Lymphocytes (%) (Auto) % Monocytes (%) (Auto) % Eosinophils (%) (Auto) % Basophils (%) (Auto) % Neutrophils # (Auto) TH/MM3 Lymphocytes # (Auto) TH/MM3 Monocytes # (Auto) TH/MM3 Eosinophils # (Auto) TH/MM3 Basophils # (Auto) TH/MM3 CBC Comment AUTO DIFF Differential Total Cells 100 Counted Neutrophils % (Manual) 45 % Band Neutrophils % 2 % Lymphocytes % 6 % Monocytes % 17 % Eosinophils % 1 % Neutrophils # (Manual) 22.6 TH/MM3 Metamyelocytes 1 % Myelocytes 8 % Differential Comment FINAL DIFF MANUAL Blastocytes 20 % Platelet Estimate LOW Platelet Morphology Comment NORMAL Sodium Level 139 MEQ/L Potassium Level 4.2 MEQ/L Chloride Level 104 MEQ/L Carbon Dioxide Level 30.1 MEQ/L Anion Gap 5 MEQ/L Blood Urea Nitrogen 15 MG/DL Creatinine 1.06 MG/DL Estimat Glomerular Filtration 52 ML/MIN Rate Random Glucose 102 MG/DL Uric Acid 4.5 MG/DL Calcium Level 8.0 MG/DL Phosphorus Level 2.6 MG/DL Magnesium Level 2.5 MG/DL Total Bilirubin 0.5 MG/DL Aspartate Amino Transf 59 U/L (AST/SGOT) Alanine Aminotransferase 36 U/L (ALT/SGPT) Alkaline Phosphatase 109 U/L Lactate Dehydrogenase 745 U/L Total Protein 5.7 GM/DL Albumin 2.0 GM/DL Blood Gas Puncture Site RT RADIAL Blood Gas Patient Temperature 98.6 Blood Gas HCO3 28 mmol/L Blood Gas Base Excess 2.8 mmol/L Blood Gas Oxygen Saturation 95 % Arterial Blood pH 7.38 Arterial Blood Partial 48 mmHg Pressure CO2 Arterial Blood Partial 132 mmHg Pressure O2 Arterial Blood Oxygen Content 11.7 Vol % Arterial Blood 0.0 % Carboxyhemoglobin Arterial Blood Methemoglobin 1.3 % Blood Gas Hemoglobin 8.5 G/DL Oxygen Delivery Device PARTIAL REBREATHER Assessment and Plan Problem List: (1) Paroxysmal atrial fibrillation (2) Hypertension (3) Chest pain (4) AML (acute myeloid leukemia) (5) Thrombocytopenia (6) Anemia Assessment and Plan 1) Afib with RVR over night, SOB most likely secondary to PNA/CHF/ Tachyarrhythmia 2) Previously on amio but stopped as now working, loaded with digoxin Concern for multiple low blood pressures 3) If BP better, may be able to add BB tomorrow if stable 4) No antiplatelet/anticoagulant due to thrombocytopenia 5) Sinus tachycardia secondary to overall illness Problem Qualifiers (1) Hypertension: Qualified Code: I10 - Essential hypertension (2) Chest pain: Qualified Code: R07.9 - Chest pain, unspecified type (3) AML (acute myeloid leukemia): Qualified Code: C92.00 - Acute myeloid leukemia not having achieved remission (4) Anemia: Qualified Code: D64.9 - Anemia, unspecified type Donal Chang DO Apr 01, 2017 11:17
--- NOTE | 2017-04-01 11:30 | HHI.PR ---
Subjective Subjective Remarks Remains on 100% nonrebreather Sinus tachycardia to A. fib with RVR, heart rate 140s Patient awake, oriented 3. Son at bedside Chest x-ray was just completed Per son, there is possibility of intubation Wants to discuss advanced directives with patient. Advanced directive discussed with patient and son in front of RN Forms have been signed, they were witnessed by nursing Patient indicates that she is willing to be intubated if necessary for a short period of time and if no improvement son and daughter can make decisions on her behalf. Discussed with son at length, he indicates that he understands that his mother is likely not to improve regardless of treatment but is willing to give intubation an opportunity to see if infection can be treated. He and his sister have been discussing and they are both in agreement with respecting mother's wishes. (Tina Blair) Review of Systems Constitutional Constitutional Remarks 12 point ros difficult to complete (Tina Blair) Vitals/Results Intake & Output 03/31/17 03/31/17 04/01/17 15:00 23:00 07:00 Intake Total 490 ml 667 ml 512 ml Output Total 1100 ml 750 ml 250 ml Balance -610 ml -83 ml 262 ml Intake Oral 480 ml 240 ml 360 ml IV Total 10 ml 427 ml 152 ml Output Urine Total 1100 ml 750 ml 250 ml # Bowel Movements 0 0 0 Vital Signs Vital Signs Date Time Temp Pulse Resp B/P Pulse Ox O2 Delivery O2 Flow Rate FiO2 04/01/17 09:16 99 Partial Rebreather 12.00 04/01/17 08:44 18 04/01/17 06:00 75 04/01/17 04:00 98.3 81 20 104/59 96 04/01/17 04:00 85 04/01/17 02:00 126 04/01/17 01:40 98 Partial Rebreather 12.00 04/01/17 00:00 98.4 83 22 115/56 92 04/01/17 00:00 83 03/31/17 23:06 20 03/31/17 22:00 84 03/31/17 20:48 95 Venturi Mask 6.00 50 03/31/17 20:00 98.3 80 22 125/71 94 03/31/17 20:00 80 03/31/17 18:00 120 03/31/17 16:00 98.8 125 30 118/77 91 03/31/17 16:00 125 03/31/17 14:00 85 03/31/17 14:00 132 03/31/17 12:00 99.4 134 25 106/62 90 03/31/17 12:00 132 (Tina Blair) CBC/BMP: 04/01/17 0832 04/01/17 0832 Lab Results Laboratory Tests Test 04/01/17 04/01/17 08:32 10:45 White Blood Count 40.3 TH/MM3 Red Blood Count 2.84 MIL/MM3 Hemoglobin 8.3 GM/DL Hematocrit 25.7 % Mean Corpuscular Volume 90.7 FL Mean Corpuscular Hemoglobin 29.3 PG Mean Corpuscular Hemoglobin 32.3 % Concent Red Cell Distribution Width 19.2 % Platelet Count 77 TH/MM3 Mean Platelet Volume 8.5 FL Neutrophils (%) (Auto) % Lymphocytes (%) (Auto) % Monocytes (%) (Auto) % Eosinophils (%) (Auto) % Basophils (%) (Auto) % Neutrophils # (Auto) TH/MM3 Lymphocytes # (Auto) TH/MM3 Monocytes # (Auto) TH/MM3 Eosinophils # (Auto) TH/MM3 Basophils # (Auto) TH/MM3 CBC Comment AUTO DIFF Differential Total Cells 100 Counted Neutrophils % (Manual) 45 % Band Neutrophils % 2 % Lymphocytes % 6 % Monocytes % 17 % Eosinophils % 1 % Neutrophils # (Manual) 22.6 TH/MM3 Metamyelocytes 1 % Myelocytes 8 % Differential Comment FINAL DIFF MANUAL Blastocytes 20 % Platelet Estimate LOW Platelet Morphology Comment NORMAL Sodium Level 139 MEQ/L Potassium Level 4.2 MEQ/L Chloride Level 104 MEQ/L Carbon Dioxide Level 30.1 MEQ/L Anion Gap 5 MEQ/L Blood Urea Nitrogen 15 MG/DL Creatinine 1.06 MG/DL Estimat Glomerular Filtration 52 ML/MIN Rate Random Glucose 102 MG/DL Uric Acid 4.5 MG/DL Calcium Level 8.0 MG/DL Phosphorus Level 2.6 MG/DL Magnesium Level 2.5 MG/DL Total Bilirubin 0.5 MG/DL Aspartate Amino Transf 59 U/L (AST/SGOT) Alanine Aminotransferase 36 U/L (ALT/SGPT) Alkaline Phosphatase 109 U/L Lactate Dehydrogenase 745 U/L Total Protein 5.7 GM/DL Albumin 2.0 GM/DL Blood Gas Puncture Site RT RADIAL Blood Gas Patient Temperature 98.6 Blood Gas HCO3 28 mmol/L Blood Gas Base Excess 2.8 mmol/L Blood Gas Oxygen Saturation 95 % Arterial Blood pH 7.38 Arterial Blood Partial 48 mmHg Pressure CO2 Arterial Blood Partial 132 mmHg Pressure O2 Arterial Blood Oxygen Content 11.7 Vol % Arterial Blood 0.0 % Carboxyhemoglobin Arterial Blood Methemoglobin 1.3 % Blood Gas Hemoglobin 8.5 G/DL Oxygen Delivery Device PARTIAL REBREATHER Microbiology Microbiology 03/31/17 Aerobic Blood Culture - Preliminary, Resulted NO GROWTH IN 1 DAY 03/31/17 Anaerobic Blood Culture - Preliminary, Resulted NO GROWTH IN 1 DAY 03/31/17 Aerobic Blood Culture - Preliminary, Resulted NO GROWTH IN 1 DAY 03/31/17 Anaerobic Blood Culture - Preliminary, Resulted NO GROWTH IN 1 DAY (Tina Blair) Physical Exam General General Appearance: Well Developed, Well Nourished, No Acute Distress, Anxious , Obese (Tina Blair) Eyes Eye Exam: Pupils Equal, Pupils Reactive (Tina Blair) Ears & Nose Ears & Nose Exam: Nasal Mucosa [place] (Tina Blair) Throat Throat Exam: Oral Mucosa [place] & Moist (Tina Blair) Neck Neck Exam: Neck Supple, Trachea Midline (Tina Blair) Pulmonary Resp Exam: Breath Sounds Equal, Crackles, Decreased Bases Resp Remarks bibasilar rales (Tina Blair) Cardiology CV Exam: Regular, Normal Sinus Rhythm, Good Perfusion (Tina Blair) Gastrointestinal/Abdomen GI Exam: Soft, Non-Tender, Bowel Sounds Present, Non-Distended (Tina Blair) Musculoskeletal MS Exam: Joints Intact (Tina Blair) Integumentary Skin Exam: Warm, Dry (Tina Blair) Extremeties Extremities Exam: No Edema, Pedal Pulses Palpable (Tina Blair) Neurologic Neuro Exam: Alert, Awake, Oriented, Speech Clear, Moving All Extremities, No Focal Deficits (Tina Blair) Psychiatric Psych Exam: Appropriate Responses (Tina Blair) VTE Prophylaxis VTE Prophylaxis Device: SCDs (Gross,Tina G. MOBILE SERVICE RV TECHNICIAN) Assessment/Plan Problem List: (1) Sepsis (2) Anemia (3) Thrombocytopenia (4) Elevated white blood cell count (5) Pneumonia (6) CKD (chronic kidney disease) stage 3, GFR 30-59 ml/min (7) AML (acute myeloid leukemia) (8) Low blood pressure (9) Tachycardia (10) Hx TIA/stroke w/o resid (11) hx cerebral aneurysm (12) Atrial fibrillation with RVR Assessment/Plan 66-year-old female admitted with sepsis, fever, malaise, fatigue. Found with pneumonia, leukocytosis, anemia, thrombocytopenia. Complete dictated by sepsis , respiratory distress. Respiratory distress, hypoxia, required transfer to ICU on 03/31/2017 Appreciate critical care input Continue with supplemental oxygen, patient may require intubation ABGs have been completed, results pending -Repeat chest x-ray pending Sepsis, pneumonia -ID has been consulted, continue with antibiotics, follow cultures. Negative so far -WBC continues to trend up, 40.3 -Chest x-ray results reviewed-worsening Fatigue malaise, noted with significant WBC abnormalities. Possible acute myeloid leukemia. Pancytopenia Status post bone marrow biopsy 03/26/2017 -Echo done, EF 55% -Continue with allopurinol, patient noted with elevated uric acid level and LDH. Patient at risk for tumor lysis syndrome once treatment begins. Appreciate Dr. Yarbrough's input, bone marrow bx + AML. Because of pulmonary and cardiac status, she is not a candidate for intensive induction remission therapy with anthracycline/Cytarabine or HiDAC, therefore treatment will consist of Dacogen. -Received Dacogen 03/30 -Treatment on hold at this time Afib RVR, hypotension, CP Hallicat 03/28 due to hypotension and afib rvr, bolused -appreciate card input -Require amiodarone drip, then was changed to by mouth. Both are now DC'd. -Restarted on beta blockers, blood pressure has improved Currently on digoxin Remains tachycardic, periods of A. fib with RVR heart rate up to 140, likely secondary to respiratory distress. Constipation Abdomen is distended, firm, has not had a BM more than 3 days Bowel regimen in progress Back pain, s/p bone marrow bx -continue Blanco, can't have Morphine due to low bp -Ativan PRN CKD stage III Continue with hydration stable History of TIA History of cerebral aneurysm Monitor neuro status Control blood pressure Avoid anticoagulants due to thrombocytopenia, SCDs for DVT prophylaxis Pepcid for GI prophylaxis Discussed with patient and her son at length, patient is willing to undergo intubation if needed. Patient is ready to complete advanced directives, she is alert and oriented 3 and answering questions appropriately. Nurse is at bedside. Advanced directives have been completed, she has designated her son and daughter to make decisions in the event that she cannot do so. She is willing to undergo intubation if needed however she does not want to be kept alive if her condition is not likely to improve. Condition guarded/poor prognosis Appreciate consultants input D/W pt/son D/W Dr. Duffy D/W RN This patient was seen by myself and Dr. Duffy, this note is written on his behalf (Tina Blair) Assessment/Plan pt seen and examined as above labs reviewed rad génesis reviewed meds reviewed dw oracle software engineer cond criticle dw rn dw pt plan of care juliana rip sawyer prog gaurded to overall looking poor (Konrad Duffy MD) Problem Qualifiers (1) Sepsis: Qualified Code: A41.9 - Sepsis, due to unspecified organism (2) Anemia: Qualified Code: D64.9 - Anemia, unspecified type (3) Elevated white blood cell count: Qualified Code: D72.829 - Leukocytosis, unspecified type (4) Pneumonia: Qualified Code: J18.1 - Pneumonia of left lower lobe due to infectious organism (5) AML (acute myeloid leukemia): Qualified Code: C92.00 - Acute myeloid leukemia not having achieved remission (6) Low blood pressure: Qualified Code: I95.9 - Hypotension, unspecified hypotension type Tina Blair Apr 01, 2017 11:30 Konrad Duffy MD Apr 01, 2017 12:30
--- NOTE | 2017-04-01 12:04 | HHI.IDPN ---
Note Infectious Disease Note Patient on O2 via facemask NRM Sats dropped when trying to wean off NRM. BP dropped this am. Afib. Awake and responsive. Pulled out thomson this am. RN reports she was anxious and was oriented x 3. No sputum production. No cough. Diagnosed with high-grade myeloid neoplasm. PAST MEDICAL HISTORY 1. Hypertension 2. Hypothyroidism 3. Chronic obstructive pulmonary disease 4. partial seizures 5. intracranial aneurysm 6. anxiety disorder. 7. Appendectomy. 8. The vein surgery in the left leg. ALLERGIES PENICILLIN Current Medications Medications (Trade) Dose Ordered Sig/Tylor Route PRN Reason Start Time Stop Time Status Last Admin Dose Admin Sodium Chloride (NS 1000 ml Inj) 1,000 ml @ 83 mls/hr Q12H3M IV 03/25/17 23:14 03/27/17 19:33 Sodium Chloride (NS Flush) 2 ml UNSCH PRN IV FLUSH FLUSH AFTER USING IV ACCESS 03/25/17 23:15 Sodium Chloride (NS Flush) 2 ml BID IV FLUSH 03/26/17 09:00 03/31/17 21:28 Acetaminophen (Tylenol) 650 mg Q4H PRN PO TEMP > 100.4 03/25/17 23:15 03/30/17 08:26 Ondansetron HCl (Zofran Inj) 4 mg Q6H PRN IVP NAUSEA OR VOMITING 03/25/17 23:15 03/29/17 21:36 Acetaminophen (Tylenol) 650 mg Q6H PRN PO PAIN SCALE 1 TO 2 03/25/17 23:15 03/26/17 08:14 Naloxone HCl (Narcan Inj) 0.4 mg UNSCH PRN IV SEE LABEL COMMENTS 03/25/17 23:15 Sennosides (Senokot) 17.2 mg Q12H PRN PO MODERATE - SEVERE CONSTIPATION 03/25/17 23:15 03/31/17 16:59 Guaifenesin/ Dextromethorphan (Robitussin Dm 200-20 Mg/10 ml Liq) 10 ml Q4H PRN PO COUGH 03/25/17 23:15 Famotidine (Pepcid) 10 mg BID PO 03/26/17 09:00 04/01/17 08:14 Miscellaneous (Pill Splitter) 1 ea UNSCH PRN OTHER SEE LABEL COMMENTS 03/25/17 23:30 Temazepam (Restoril) 15 mg HS PRN PO insomnia 03/26/17 00:30 03/30/17 22:13 Allopurinol (Zyloprim) 100 mg BID PO 03/26/17 09:00 04/01/17 08:14 Nystatin (Mycostatin Liq) 5 ml QID SWISH-SWAL 03/26/17 18:00 04/01/17 08:13 Atorvastatin Calcium (Lipitor) 40 mg DAILY PO 03/28/17 09:00 04/01/17 08:14 Lamotrigine (LaMICtal) 50 mg HS PO 03/27/17 21:00 03/31/17 21:29 Levothyroxine Sodium (Synthroid) 100 mcg DAILY@06 PO 03/28/17 06:00 04/01/17 05:08 Acetaminophen/ Hydrocodone Bitart (Alpine 10-325 Mg) 1 tab Q4H PRN PO PAIN 7-10 03/28/17 09:15 03/31/17 22:22 Lorazepam (Ativan) 1 mg Q6H PRN PO ANXIETY 03/28/17 09:15 03/31/17 22:22 Prochlorperazine Edisylate (Compazine Inj) 5 mg Q4H PRN IV PUSH NAUSEA 03/28/17 09:30 Granisetron HCl (Kytril) 2 mg Q24H PO 03/30/17 13:00 04/03/17 13:01 03/30/17 13:00 Granisetron HCl 1 mg 1 mg Q24H IV PUSH 03/30/17 13:30 04/03/17 13:31 03/30/17 17:28 Decitabine 40 mg/ Sodium Chloride 250 ml @ 250 mls/hr Q24H IV 03/30/17 14:00 04/03/17 14:59 03/30/17 18:35 Meropenem/Sodium Chloride (Merrem Inj/NS Inj) 100 ml @ 200 mls/hr Q8H IV 03/31/17 14:00 04/01/17 05:08 Acetaminophen (Ofirmev Inj) 1,000 mg Q6H IV 03/31/17 15:00 04/01/17 14:59 04/01/17 08:14 Dextrose (D50w (Vial) Inj) 50 ml UNSCH PRN IV HYPOGLYCEMIA-SEE COMMENTS 8/5/17 14:00 Glucagon (Glucagon Inj) 1 mg UNSCH PRN OTHER HYPOGLYCEMIA-SEE COMMENTS 03/31/17 14:00 Digoxin (Lanoxin) 0.125 mg DAILY PO 04/01/17 09:00 04/01/17 08:13 Senna/Docusate Sodium (Ramya-Colace) 1 tab BID PO 03/31/17 21:00 04/01/17 08:14 Magnesium Hydroxide (Milk Of Magnesia Liq) 30 ml Q12H PRN PO SEE LABEL COMMENTS 03/31/17 14:00 04/01/17 08:15 Sennosides (Senokot) 17.2 mg Q12H PRN PO SEE LABEL COMMENTS 03/31/17 14:00 Bisacodyl (Dulcolax Supp) 10 mg DAILY PRN RECTAL SEE LABEL COMMENTS 03/31/17 14:00 04/01/17 08:14 Lactulose (Lactulose Liq) 30 ml DAILY PRN PO SEE LABEL COMMENTS 03/31/17 14:00 04/01/17 08:13 Metoprolol Tartrate (Lopressor) 12.5 mg Q12HR PO 04/01/17 11:45 OBJECTIVE: Vital Signs Date Time Temp Pulse Resp B/P Pulse Ox O2 Delivery O2 Flow Rate FiO2 04/01/17 09:16 99 Partial Rebreather 12.00 04/01/17 08:44 18 04/01/17 06:00 75 04/01/17 04:00 98.3 81 20 104/59 96 04/01/17 04:00 85 04/01/17 02:00 126 04/01/17 01:40 98 Partial Rebreather 12.00 04/01/17 00:00 98.4 83 22 115/56 92 04/01/17 00:00 83 03/31/17 23:06 20 03/31/17 22:00 84 03/31/17 20:48 95 Venturi Mask 6.00 50 03/31/17 20:00 98.3 80 22 125/71 94 03/31/17 20:00 80 03/31/17 18:00 120 03/31/17 16:00 98.8 125 30 118/77 91 03/31/17 16:00 125 03/31/17 14:00 85 03/31/17 14:00 132 03/31/17 03/31/17 04/01/17 14:59 22:59 06:59 Intake Total 490 ml 667 ml 512 ml Output Total 1100 ml 750 ml 250 ml Balance -610 ml -83 ml 262 ml Intake Oral 480 ml 240 ml 360 ml IV Total 10 ml 427 ml 152 ml Output Urine Total 1100 ml 750 ml 250 ml # Bowel Movements 0 0 0 Laboratory Tests Test 03/31/17 04/01/17 05:30 08:32 White Blood Count 35.0 TH/MM3 40.3 TH/MM3 Red Blood Count 2.63 MIL/MM3 2.84 MIL/MM3 Hemoglobin 7.8 GM/DL 8.3 GM/DL Hematocrit 23.9 % 25.7 % Mean Corpuscular Volume 90.9 FL 90.7 FL Mean Corpuscular Hemoglobin 29.7 PG 29.3 PG Mean Corpuscular Hemoglobin 32.7 % 32.3 % Concent Red Cell Distribution Width 18.4 % 19.2 % Platelet Count 66 TH/MM3 77 TH/MM3 Mean Platelet Volume 8.4 FL 8.5 FL Neutrophils (%) (Auto) % % Lymphocytes (%) (Auto) % % Monocytes (%) (Auto) % % Eosinophils (%) (Auto) % % Basophils (%) (Auto) % % Neutrophils # (Auto) TH/MM3 TH/MM3 Lymphocytes # (Auto) TH/MM3 TH/MM3 Monocytes # (Auto) TH/MM3 TH/MM3 Eosinophils # (Auto) TH/MM3 TH/MM3 Basophils # (Auto) TH/MM3 TH/MM3 CBC Comment AUTO DIFF AUTO DIFF Differential Total Cells 100 100 Counted Neutrophils % (Manual) 32 % 45 % Band Neutrophils % 1 % 2 % Lymphocytes % 21 % 6 % Monocytes % 17 % 17 % Neutrophils # (Manual) 14.4 TH/MM3 22.6 TH/MM3 Metamyelocytes 1 % 1 % Myelocytes 7 % 8 % Differential Comment FINAL DIFF FINAL DIFF MANUAL MANUAL Atypical Lymphocytes % Blastocytes 21 % 20 % Platelet Estimate LOW LOW Platelet Morphology Comment NORMAL NORMAL Eosinophils % 1 % Laboratory Tests Test 03/31/17 04/01/17 05:30 08:32 Sodium Level 139 MEQ/L 139 MEQ/L Potassium Level 3.8 MEQ/L 4.2 MEQ/L Chloride Level 107 MEQ/L 104 MEQ/L Carbon Dioxide Level 24.9 MEQ/L 30.1 MEQ/L Anion Gap 7 MEQ/L 5 MEQ/L Blood Urea Nitrogen 14 MG/DL 15 MG/DL Creatinine 0.97 MG/DL 1.06 MG/DL Estimat Glomerular Filtration 57 ML/MIN 52 ML/MIN Rate Random Glucose 105 MG/DL 102 MG/DL Uric Acid 4.7 MG/DL 4.5 MG/DL Calcium Level 7.8 MG/DL 8.0 MG/DL Total Bilirubin 0.3 MG/DL 0.5 MG/DL Aspartate Amino Transf 43 U/L 59 U/L (AST/SGOT) Alanine Aminotransferase 32 U/L 36 U/L (ALT/SGPT) Alkaline Phosphatase 86 U/L 109 U/L B-Type Natriuretic Peptide 325 PG/ML Total Protein 5.4 GM/DL 5.7 GM/DL Albumin 1.9 GM/DL 2.0 GM/DL Procalcitonin 0.43 ng/mL Free Thyroxine 1.10 NG/DL Thyroid Stimulating Hormone 6.560 uIU/ML 3rd Gen Phosphorus Level 2.6 MG/DL Magnesium Level 2.5 MG/DL Lactate Dehydrogenase 745 U/L Microbiology Date/Time Procedure Status Source Growth 03/31/17 18:40 Aerobic Blood Culture - Preliminary Resulted Blood Other NO GROWTH IN 1 DAY 03/31/17 18:40 Anaerobic Blood Culture - Preliminary Resulted Blood Other NO GROWTH IN 1 DAY 03/31/17 18:45 Aerobic Blood Culture - Preliminary Resulted Blood Other NO GROWTH IN 1 DAY 03/31/17 18:45 Anaerobic Blood Culture - Preliminary Resulted Blood Other NO GROWTH IN 1 DAY PHYSICAL EXAMINATION: GENERAL: No acute distress. HEAD, EYES, EARS, NOSE, AND THROAT: Extraocular movements grossly intact, pupils reactive to light. No icterus. Moist mucosa. NECK: Supple without adenopathy. LUNGS: Rales bilateral. HEART: Regular rate and rhythm. No murmurs or rubs or gallops. ABDOMEN: Bowel sounds present, obese, soft, nontender. EXTREMITIES: No clubbing or cyanosis or edema. SKIN: No rash. NEUROLOGIC: Nonfocal. PSYCHIATRIC: Calm, anxious. IMPRESSION 1. Sepsis 2. Pneumonia. left basilar opacity 3. Leukocytosis. Probably related to infection. 4. Acute renal failure. 5. Acute myeloid leukemia. 6. Penicillin allergy. RECOMMENDATIONS 1. Continue Meropenem. 2. Monitor the temperature and white blood cell count. 3. Monitor clinical status. Brody Reich MD Apr 01, 2017 12:04
[2017-04-01] MEDS: GRANISETRON HCL 1 MG TAB PO SCH (12:35)
[2017-04-01] MEDS: GRANISETRON HCL 1 MG/ML VIAL IV PUSH SCH (12:35)
[2017-04-01] MEDS: SODIUM CHLOR 0.9% IV SCH (12:36)
[2017-04-01] MEDS: DECITABINE IV SCH (12:36)
[2017-04-01] MEDS: METOPROLOL TARTRATE 25 MG TAB PO SCH ×2 (12:42→21:46)
[2017-04-01] MEDS: ACETAMINOPHEN/HYDROcodone 325 MG/10 MG TAB PO PRN ×2 (16:51→21:45)
--- NOTE | 2017-04-01 17:37 | EKG ---
Date Performed: 03/31/2017 Time Performed: 12:43:26 PTAGE: 66 years EKG: Sinus rhythm LOW QRS VOLTAGE ABNORMAL ECG Compared to PREVIOUS TRACING , heart rate has slowed, and nonspecific T wave changes have slightly im proved. PREVIOUS TRACIN03/29/2017 06.05 DOCTOR: Stacy Padilla Interpretating Date/Time 04/01/2017 17:36:22
[2017-04-01] MEDS: lamoTRIgine 25 MG TAB PO SCH (21:46)
[2017-04-02] VITALS (32 sets, daily range): BP systolic 102–146; BP diastolic 55–80; PULSE 74–140; RESP 9–28; TEMP 98.2–98.9; O2SAT 84–100
[2017-04-02] MEDS: TEMAZEPAM 15 MG CAP PO PRN (01:23)
[2017-04-02] MEDS: ACETAMINOPHEN/HYDROcodone 325 MG/10 MG TAB PO PRN ×5 (01:23→20:03)
--- NOTE | 2017-04-02 05:03 | RADRPT ---
EXAM DATE/TIME: 04/02/2017 03:28 [facility] COMPARISON: CHEST SINGLE AP, April 01, 2017, 9:23. INDICATIONS : Short of breath. MEDICAL HISTORY : Cerebrovascular disease. Hypertension Seizures, Brain aneurysm SURGICAL HISTORY : None. ENCOUNTER: Subsequent ACUITY: 1 week PAIN SCORE: 0/10 LOCATION: Bilateral chest FINDINGS: There is bilateral consolidation and cardiomegaly again noted. Atelectasis left midlung. Left effusio n. CONCLUSION: No significant change has occurred. Antwan Jensen MD on April 02, 2017 at 5:02 Board Certified Radiologist. This report was verified electronically.
[2017-04-02] MEDS: MEROPENEM INJ 1,000 MG in SODIUM CHLORIDE 0.9% INJ 100 ML IV SCH ×2 (05:17→13:34)
[2017-04-02] MEDS: LEVOTHYROXINE SODIUM 100 MCG TAB PO SCH (05:17)
[2017-04-02] MEDS: LORazepam 1 MG TAB PO PRN ×2 (05:18→19:59)
[2017-04-02] MEDS: INSULIN ASPART SUPPLEMENTAL SCALE SQ SCH ×4 (06:36→20:54)
[2017-04-02] MEDS: SODIUM CHLOR 0.9% 1000 ML INJ 1,000 ML IV SCH (07:19)
[2017-04-02 07:53] LABS: HEMATOCRIT 24.1 % (35.0-46.0); MEAN CORPUSCULAR HEMOGLOBIN 29.5 PG (27.0-34.0); MEAN CORPUSCULAR HGB CONC 32.7 % (32.0-36.0); PLATELET COUNT 83 TH/MM3 (150-450); RED BLOOD COUNT 2.68 MIL/MM3 (4.00-5.30); RED CELL DISTRIBUTION WIDTH 18.2 % (11.6-17.2); WHITE BLOOD COUNT 29.3 TH/MM3 (4.0-11.0)
[2017-04-02] MEDS: RESP: ALBUTEROL 2.5 MG/IPRATROPIUM 0.5 MG NEB (SCH) NEB ×4 (08:00→19:06)
[2017-04-02 08:05] LABS: HEMO FLAGS AUTO DIFF
--- NOTE | 2017-04-02 08:08 | PD.ONC.PN ---
Subjective Subjective Remarks Patient seen and examined. Events of over the weekend review, the patient went into respiratory distress with hypoxia and A. fib with RVR. She was clinically assessed to have volume overload with pulmonary edema. She was aggressively diuresed and had improvement in her respiratory status with declining oxygen requirements and improvement in her heart rate. Thus far she has received 1 dose of Dacogen, treatment was held on 03/31/2017 and 04/01/2017 due to her respiratory and cardiac issues. She is presently in the critical care unit but is clinically improved. Subjectively: The patient reports abdominal pain and distention, she tells me she had significant improvement in the distention and pain in the abdomen after she had a good bowel movement yesterday. She required an enema to move her bowels. Objective Data Date Time Temp Pulse Resp B/P Pulse Ox O2 Delivery O2 Flow Rate FiO2 04/02/17 08:02 95 Nasal Cannula 4.00 04/02/17 06:00 83 04/02/17 04:00 83 04/02/17 04:00 98.9 86 21 95 04/02/17 02:00 78 04/02/17 00:00 77 04/02/17 00:00 98.7 81 21 146/71 94 04/01/17 22:00 103 04/01/17 20:38 96 Nasal Cannula 4.00 04/01/17 20:00 124 04/01/17 20:00 98.3 84 12 95 04/01/17 18:00 133 04/01/17 17:51 18 04/01/17 16:00 98.9 137 20 112/61 93 04/01/17 16:00 137 04/01/17 14:00 131 04/01/17 12:00 130 04/01/17 12:00 99.1 130 24 107/73 98 04/01/17 10:00 130 04/01/17 09:16 99 Partial Rebreather 12.00 04/01/17 08:44 18 04/02/17 04/02/17 04/02/17 07:00 15:00 23:00 Intake Total 340 ml Output Total 850 ml Balance -510 ml Result Diagram: 04/01/17 0832 04/01/17 0832 Laboratory Results Laboratory Tests Test 04/01/17 04/01/17 08:32 10:45 White Blood Count 40.3 TH/MM3 Red Blood Count 2.84 MIL/MM3 Hemoglobin 8.3 GM/DL Hematocrit 25.7 % Mean Corpuscular Volume 90.7 FL Mean Corpuscular Hemoglobin 29.3 PG Mean Corpuscular Hemoglobin 32.3 % Concent Red Cell Distribution Width 19.2 % Platelet Count 77 TH/MM3 Mean Platelet Volume 8.5 FL Neutrophils (%) (Auto) % Lymphocytes (%) (Auto) % Monocytes (%) (Auto) % Eosinophils (%) (Auto) % Basophils (%) (Auto) % Neutrophils # (Auto) TH/MM3 Lymphocytes # (Auto) TH/MM3 Monocytes # (Auto) TH/MM3 Eosinophils # (Auto) TH/MM3 Basophils # (Auto) TH/MM3 CBC Comment AUTO DIFF Differential Total Cells 100 Counted Neutrophils % (Manual) 45 % Band Neutrophils % 2 % Lymphocytes % 6 % Monocytes % 17 % Eosinophils % 1 % Neutrophils # (Manual) 22.6 TH/MM3 Metamyelocytes 1 % Myelocytes 8 % Differential Comment FINAL DIFF MANUAL Blastocytes 20 % Platelet Estimate LOW Platelet Morphology Comment NORMAL Sodium Level 139 MEQ/L Potassium Level 4.2 MEQ/L Chloride Level 104 MEQ/L Carbon Dioxide Level 30.1 MEQ/L Anion Gap 5 MEQ/L Blood Urea Nitrogen 15 MG/DL Creatinine 1.06 MG/DL Estimat Glomerular Filtration 52 ML/MIN Rate Random Glucose 102 MG/DL Uric Acid 4.5 MG/DL Calcium Level 8.0 MG/DL Phosphorus Level 2.6 MG/DL Magnesium Level 2.5 MG/DL Total Bilirubin 0.5 MG/DL Aspartate Amino Transf 59 U/L (AST/SGOT) Alanine Aminotransferase 36 U/L (ALT/SGPT) Alkaline Phosphatase 109 U/L Lactate Dehydrogenase 745 U/L Total Protein 5.7 GM/DL Albumin 2.0 GM/DL Blood Gas Puncture Site RT RADIAL Blood Gas Patient Temperature 98.6 Blood Gas HCO3 28 mmol/L Blood Gas Base Excess 2.8 mmol/L Blood Gas Oxygen Saturation 95 % Arterial Blood pH 7.38 Arterial Blood Partial 48 mmHg Pressure CO2 Arterial Blood Partial 132 mmHg Pressure O2 Arterial Blood Oxygen Content 11.7 Vol % Arterial Blood 0.0 % Carboxyhemoglobin Arterial Blood Methemoglobin 1.3 % Blood Gas Hemoglobin 8.5 G/DL Oxygen Delivery Device PARTIAL REBREATHER Culture Results Microbiology Date/Time Procedure Status Source Growth 03/31/17 18:40 Aerobic Blood Culture - Preliminary Resulted Blood Other NO GROWTH IN 1 DAY 03/31/17 18:40 Anaerobic Blood Culture - Preliminary Resulted Blood Other NO GROWTH IN 1 DAY 03/31/17 18:45 Aerobic Blood Culture - Preliminary Resulted Blood Other NO GROWTH IN 1 DAY 03/31/17 18:45 Anaerobic Blood Culture - Preliminary Resulted Blood Other NO GROWTH IN 1 DAY Imaging Studies Last 24 hours Impressions Chest X-Ray 04/02/17 0600 Signed Impressions: Service Date/Time: Sunday, April 02, 2017 03:28 - CONCLUSION: No significant change has occurred. Antwan Jensen MD Administered Medications Medications (Trade) Dose Ordered Sig/Tylor Route PRN Reason Start Time Stop Time Status Last Admin Dose Admin Sodium Chloride (NS 1000 ml Inj) 1,000 ml @ 83 mls/hr Q12H3M IV 03/25/17 23:14 04/01/17 19:16 Sodium Chloride (NS Flush) 2 ml BID IV FLUSH 03/26/17 09:00 04/01/17 21:00 Acetaminophen (Tylenol) 650 mg Q4H PRN PO TEMP > 100.4 03/25/17 23:15 03/30/17 08:26 Ondansetron HCl (Zofran Inj) 4 mg Q6H PRN IVP NAUSEA OR VOMITING 03/25/17 23:15 03/29/17 21:36 Acetaminophen (Tylenol) 650 mg Q6H PRN PO PAIN SCALE 1 TO 2 03/25/17 23:15 03/26/17 08:14 Sennosides (Senokot) 17.2 mg Q12H PRN PO MODERATE - SEVERE CONSTIPATION 03/25/17 23:15 03/31/17 16:59 Famotidine (Pepcid) 10 mg BID PO 03/26/17 09:00 04/01/17 21:46 Temazepam (Restoril) 15 mg HS PRN PO insomnia 03/26/17 00:30 04/02/17 01:23 Allopurinol (Zyloprim) 100 mg BID PO 03/26/17 09:00 04/01/17 21:46 Nystatin (Mycostatin Liq) 5 ml QID SWISH-SWAL 03/26/17 18:00 04/01/17 21:45 Atorvastatin Calcium (Lipitor) 40 mg DAILY PO 03/28/17 09:00 04/01/17 08:14 Lamotrigine (LaMICtal) 50 mg HS PO 03/27/17 21:00 04/01/17 21:46 Levothyroxine Sodium (Synthroid) 100 mcg DAILY@06 PO 03/28/17 06:00 04/02/17 05:17 Acetaminophen/ Hydrocodone Bitart ([place] 10-325 Mg) 1 tab Q4H PRN PO PAIN 7-10 03/28/17 09:15 04/02/17 05:18 Lorazepam (Ativan) 1 mg Q6H PRN PO ANXIETY 03/28/17 09:15 04/02/17 05:18 Granisetron HCl (Kytril) 2 mg Q24H PO 03/30/17 13:00 04/03/17 13:01 03/30/17 13:00 Granisetron HCl 1 mg 1 mg Q24H IV PUSH 03/30/17 13:30 04/03/17 13:31 Hold 03/30/17 17:28 Decitabine 40 mg/ Sodium Chloride 250 ml @ 250 mls/hr Q24H IV 03/30/17 14:00 04/03/17 14:59 Hold 03/30/17 18:35 Meropenem/Sodium Chloride (Merrem Inj/NS Inj) 100 ml @ 200 mls/hr Q8H IV 03/31/17 14:00 04/02/17 05:17 Digoxin (Lanoxin) 0.125 mg DAILY PO 04/01/17 09:00 04/01/17 08:13 Senna/Docusate Sodium (Ramya-Colace) 1 tab BID PO 03/31/17 21:00 04/01/17 21:46 Magnesium Hydroxide (Milk Of Magnesia Liq) 30 ml Q12H PRN PO SEE LABEL COMMENTS 03/31/17 14:00 04/01/17 08:15 Bisacodyl (Dulcolax Supp) 10 mg DAILY PRN RECTAL SEE LABEL COMMENTS 03/31/17 14:00 04/01/17 08:14 Lactulose (Lactulose Liq) 30 ml DAILY PRN PO SEE LABEL COMMENTS 03/31/17 14:00 04/01/17 08:13 Metoprolol Tartrate (Lopressor) 12.5 mg Q12HR PO 04/01/17 11:45 04/01/17 21:46 Objective Remarks GENERAL PHYSICAL APPEARANCE: Ms. Richard is a middle-aged female, she is laying in bed and is in no acute distress. She is able to speak to me in almost full sentences. HEENT: Head is atraumatic, normocephalic, conjunctivae are pale. Sclerae are anicteric, EOMI, PERRLA. ORAL EXAM: She has thrush noted. NECK: No cervical lymphadenopathy. RESPIRATORY: Decreased bibasilar breath sounds. Some crackles noted. CARDIOVASCULAR: Irregular rhythm, tachycardic, distant sounding heart sounds. rubs or gallops. She does have a systolic murmur heard over the aortic area. ABDOMEN: Obese belly, soft and nontender, nondistended. No palpable organ enlargement. Tympanic to percussion. LOWER EXTREMITIES: No pretibial edema or calf tenderness. MUSCULOSKELETAL: Adequate muscle mass, tone and strength. Assessment/Plan Problem List: (1) AML (acute myeloid leukemia) Status: Acute Plan: --Bone marrow biopsy indicates findings consistent with AML. FLT-3, CEPBA and NPM-1 analysis pending to help us prognosticate further, cytogenetics are pending. -- poor candidate for intensive induction remission therapy with anthracycline/ Cytarabine or HiDAC due to her cardiac and pulmonary issues and borderline performance status. --on allopurinol for tumor lysis prophylaxis --03/30/17: Dacogen day 1 started --03/31/17: [place] [facility] [place], tachycardia, hypotension --04/01: hold Dacogen. patient remains hypotensive, tachycardic, hypoxic (2) Atrial fibrillation with RVR Status: Acute Plan: -- A. fib with RVR associated with transient chest pain: --cardiology following --on digoxin Assessment Ms. Richard is a 66-year-old female with a 3-week history of progressive malaise, fatigue and weakness. She reports soreness of the throat and a dry cough, both of which have been chronic. She presented to the emergency department for further workup and management because her symptoms of fatigue progressed to the point where she had difficulty walking from her bedroom to her restroom. She called EMS last night due to the severity of the symptoms. Blood work performed in the emergency department indicates findings consistent with anemia, thrombocytopenia, her WBCs are grossly abnormal with findings of numerous immature cells and blasts in the peripheral circulation. 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 Peripheral smear was formally reviewed by our hematocrit pathologist who assessed the findings to be consistent with a high- grade myeloid malignancy most consistent with acute myeloid leukemia. Plan 1. Acute myeloid leukemia: Recommended systemic therapy with Dacogen and she was not a good candidate for induction systemic therapy with an anthracycline plus cytarabine. I would like to resume systemic therapy with Dacogen when she is transferred from the critical care unit back to the oncology floor. 2. A. fib with RVR: Rate control this morning. On amiodarone. 3. Hypoxic respiratory failure: Likely secondary to pulmonary edema from volume overload. She has been effectively diuresed and is stable from a respiratory standpoint today. 4. On empiric antibiotic therapy with meropenem for suspected pneumonia. She is afebrile at this time and her temperature maximum over the weekend was 100.1 F. Continue ongoing care. Problem Qualifiers (1) AML (acute myeloid leukemia): Qualified Code: C92.00 - Acute myeloid leukemia not having achieved remission Roberto Yarbrough MD Apr 02, 2017 08:08
[2017-04-02 08:15] LABS: ALT (GPT) 31 U/L (10-53); ANION GAP 6 MEQ/L (5-15); AST (GOT) 59 U/L (15-37); BICARBONATE 31.8 MEQ/L (21.0-32.0); BLOOD UREA NITROGEN 16 MG/DL (7-18); CHLORIDE 100 MEQ/L (98-107); GLOMERULAR FILTRATION RATE 70 ML/MIN (>89); POTASSIUM 3.7 MEQ/L (3.5-5.1); SODIUM (NA) 138 MEQ/L (136-145); URIC ACID 4.4 MG/DL (2.6-6.0)
[2017-04-02 08:17] LABS: LDH SERUM 646 U/L (84-246)
[2017-04-02 08:18] LABS: ALKALINE PHOSPHATASE 98 U/L (45-117); TOTAL BILIRUBIN ADULT 0.4 MG/DL (0.2-1.0)
[2017-04-02] MEDS: DOCUSATE SODIUM 50 MG/SENNA 8.6 MG TAB PO SCH ×2 (09:00→20:53)
[2017-04-02] MEDS: DIGOXIN 0.125 MG TAB PO SCH (09:39)
[2017-04-02] MEDS: ALLOPURINOL 100 MG TAB PO SCH ×2 (09:39→20:54)
[2017-04-02] MEDS: METOPROLOL TARTRATE 25 MG TAB PO SCH ×2 (09:39→19:11)
[2017-04-02] MEDS: NYSTATIN SUSP 500,000 U/5 ML CUP SWISH-SWAL SCH ×4 (09:39→20:55)
[2017-04-02] MEDS: SODIUM CHLORIDE 0.9% FLUSH 10 ML FLUSH IV FLUSH SCH ×2 (09:40→21:00)
[2017-04-02] MEDS: FAMOTIDINE 20 MG TAB PO SCH ×2 (09:40→20:54)
[2017-04-02] MEDS: ATORVASTATIN 40 MG TAB PO SCH (09:40)
[2017-04-02 10:03] LABS: BANDS 2 % (0-6); CORRECTED NUCLEATED RBC 1 /100 WBC (0-0); METAMYELOCYTES 4 % (0-1); MYELOCYTES 7 % (0-0); NEUTROPHIL # MANUAL DIFF 15.8 TH/MM3 (1.8-7.7); POLYS (SEG NEUTROPHILS) 40 % (16-70); PROMYELOCYTES 1 % (0-0); WBC DIFF SAMPLE 100
[2017-04-02 10:05] LABS: BLASTS 23 % (0-0)
[2017-04-02 10:06] LABS: PLATELET ESTIMATE SMEAR LOW (NORMAL); PLATELET MORPHOLOGY NORMAL (NORMAL); SCAN/DIFF FINAL DIFF MANUAL
--- NOTE | 2017-04-02 12:51 | PD.CONS ---
Consult Service Palliative Care Consult Requested By Dr. Duffy Primary Care Physician No Primary Care Physician Reason for Consultation a. To assist with evaluation and management of symptoms including: Shortness of breath and debility. b. To assist medical decision maker(s) with: better understanding of current medical conditions; weighing benefits/burdens of medical treatment options; making medical treatment decisions. . (Luanne Montoya) HPI History of Present Illness Mrs. Sandi England is a 66-year-old female with a medical history significant for COPD, CK D, multiple brain aneurysm, HTN, TIA and seizure disorder who presented to the emergency room on 03/25/17 with reports of cough and not feeling well as well as numbness and tingling on the left side of her face, arm and neck. Similar complains on ED visit on 09/22/16 and acute hospitalization from 04/14/16 to 04/17/16. Chest x-ray revealing partially consolidative left lower lobe infiltrate. CTA of the chest negative for pulmonary embolism. Lumbar spine CT revealing degenerative disc changes at L4- 5 and L5-S1, lateral stenosis at L5-S1 and narrowing of the neuroforamina at L4- 5 and L5-S1. Laboratory workup revealing WBC 22.5, Hgb 8.2, platelet count 47. Sodium 139, potassium 3.9, BUN/creatinine 30/1.46. Patient was admitted for further management. Hematology/oncology, Dr. Yarbrough consulted on 03/26/17 for evaluation of elevated WBC with circulating myeloblast, anemia and thrombocytopenia. Patient underwent bone marrow biopsy on 03/26/17. Echocardiogram 03/27/17 revealing EF of 55-60%, moderately dilated ascending aorta measuring 4.3 cm, aortic valve sclerosis and trace aortic valve regurgitation. Cardiology, Dr. Jefferson consulted on a 217 for evaluation of atrial fibrillation, patient was placed on amiodarone. Bone marrow biopsy consistence with myelodysplastic syndrome/early acute myeloid leukemia. As per Dr. Yarbrough, "patient is a poor candidate for intensive induction remission therapy with anthracycline/Cytarabine or HiDAC due to her cardiac and pulmonary issues and borderline performance status". Patient was started on Dacogen, currently on hold secondary to clinical condition. Clinical course complicated on 03/31/17 by Josy faustin with RVR, dyspnea and hypoxemia with O2 saturation in the 80s. Patient was transferred to medical ICU and cadd drafter was consulted. Patient with fluid overload, pulmonary edema. She was given 20 mg IV of Lasix upon arrival to ICU. She remained with significant leukocytosis, infectious disease consulted. Palliative care has been consulted for further clarifications of goals of care given newly diagnosed of acute myeloid leukemia with limited treatment options secondary to acute complications. Patient seen in ICU. Resting in bed in mild distress secondary to increased work of breathing. Patient is alert & oriented x self, place and situation. Verbal, limited speech secondary to dyspnea. Patient endorsing shortness of breath progressed, denies pain or abdominal discomfort this time. Patient remains afebrile, stable hemodynamically. Currently on 4 L of O2 via nasal cannula, oxygen saturation in the mid 90s. Chest x-ray today revealing stable left basilar opacity likely representing pleural effusion and/or consolidation. Laboratory workup revealing persistence leukocytosis, WBC 29.3. Hgb 7.9, platelet count improving, today 83 from 77 yesterday. Sodium 138, potassium 3.7 , BUN/creatinine 16/0.82. Patient's daughter Jerri at bedside. In this first visit, reviewed the role of palliative care in advanced illness in regards to symptom management as well as support surrounding goals of care and advance care planning. Obtained past medical history and psychosocial history. Reviewed events leading to a previous hospitalization, clinical course and current medical management. Reviewed newly diagnosis of AML, ongoing acute on chronic comorbidities, acute complications and overall physical deconditioning. Shared concerns of patient' s overall prognosis given the above. Patient able to participate in medical decision-making. Verbalized wishing to continue with conservative management short of no code. Elects to change CODE STATUS to DNR/DNI. Goal of therapy at this time is to allow a few more days for clinical improvement. Hospice philosophy and benefits introduced, patient and family receptive to this. All questions were answered in great detail. Patient and family appreciative of my visit. Hospice brochure provided at families request. Case discussed with Dr. Yarbrough and Dr. Gomez. . Function/Cognitive Trajectory Patient residing independently prior to this hospitalization. No assistance with ADLs reported. Progressive physical deconditioning reported, worsen within the past month. Poor activity tolerance. No cognitive decline reported. . (Luanne Montoya) Review of Systems Constitutional: COMPLAINS OF: Fatigue, Change in appetite, Generalized weakness Endocrine: DENIES: Heat/cold intolerance Eyes: DENIES: Eye pain Ears, nose, mouth, throat: DENIES: Hearing loss, Throat pain, Running Nose, Epistaxis Respiratory: COMPLAINS OF: Shortness of breath Cardiovascular: COMPLAINS OF: Dyspnea on Exertion, Orthopnea, DENIES: Chest pain, Syncope Gastrointestinal: COMPLAINS OF: Abdominal pain, DENIES: Nausea, Vomiting, Difficulty Swallowing Genitourinary: DENIES: Urinary frequency Musculoskeletal: DENIES: Decreased range of motion Integumentary: DENIES: Abnormal pigmentation, Rash Hematologic/Lymphatics: COMPLAINS OF: Bruising Immunologic/Allergic: DENIES: Eczema Neurologic: DENIES: Abnormal gait, Localized weakness, Tremor Psychiatric: DENIES: Confusion, Depression, Hallucinations, Agitation ( Luanne Montoya) Past Family Social History Coded Allergies: penicillin G (Verified Allergy, Severe, 04/27/17) *MDRO Multi-Drug Resistant Organism (Verified Adverse Reaction, Unknown, ) MRSA (abscess) 01/21/17 Past Medical History Newly diagnosed acute myeloid leukemia Angioma Multiple brain aneurysm COPD Chronic kidney disease Hypertension Hyperlipidemia Hypothyroidism TIA Anxiety Partial seizures . Past Surgical History Appendectomy Lumbar spinal surgery Varicose veins in the left lower extremity removed . Reported Medications Atorvastatin (Atorvastatin Calcium) 40 Mg Tab 40 Mg PO DAILY Atenolol 50 Mg Tab 50 Mg PO BID Lorazepam 1 Mg Tab 1 Mg PO Q6H PRN Zestoretic (Lisinopril-Hctz) 20-12.5 Mg Tab 1 Tab PO BID Percocet (Oxycodone-Acetaminophen) 5-325 mg Tab 1 Tab PO Q6H PRN Terazosin (Terazosin HCl) 5 Mg Cap 5 Mg PO AC DINNER Levothyroxine (Levothyroxine Sodium) 100 Mcg Tab 100 Mcg PO DAILY Lamictal (Lamotrigine) 100 Mg Tab 50 Mg PO HS . Current Medications Medications (Trade) Dose Ordered Sig/Tylor Route Start Time Stop Time Status Last Admin (NS 1000 ml Inj) 1,000 ml @ 83 mls/hr Q12H3M IV 03/25/17 23:14 04/01/17 19:16 (NS Flush) 2 ml UNSCH PRN IV FLUSH 03/25/17 23:15 (NS Flush) 2 ml BID IV FLUSH 03/26/17 09:00 04/02/17 09:40 (Tylenol) 650 mg Q4H PRN PO 03/25/17 23:15 03/30/17 08:26 (Zofran Inj) 4 mg Q6H PRN IVP 03/25/17 23:15 03/29/17 21:36 (Tylenol) 650 mg Q6H PRN PO 03/25/17 23:15 03/26/17 08:14 (Narcan Inj) 0.4 mg UNSCH PRN IV 03/25/17 23:15 (Senokot) 17.2 mg Q12H PRN PO 03/25/17 23:15 03/31/17 16:59 (Robitussin Dm 200-20 Mg/10 ml Liq) 10 ml Q4H PRN PO 03/25/17 23:15 (Pepcid) 10 mg BID PO 03/26/17 09:00 04/02/17 09:40 (Pill Splitter) 1 ea UNSCH PRN OTHER 03/25/17 23:30 (Restoril) 15 mg HS PRN PO 03/26/17 00:30 04/02/17 01:23 (Zyloprim) 100 mg BID PO 03/26/17 09:00 04/02/17 09:39 (Mycostatin Liq) 5 ml QID SWISH-SWAL 03/26/17 18:00 04/02/17 09:39 (Lipitor) 40 mg DAILY PO 03/28/17 09:00 04/02/17 09:40 (LaMICtal) 50 mg HS PO 03/27/17 21:00 04/01/17 21:46 (Synthroid) 100 mcg DAILY@06 PO 03/28/17 06:00 04/02/17 05:17 (Bacliff 10-325 Mg) 1 tab Q4H PRN PO 03/28/17 09:15 04/02/17 10:14 (Ativan) 1 mg Q6H PRN PO 03/28/17 09:15 04/02/17 05:18 (Compazine Inj) 5 mg Q4H PRN IV PUSH 03/28/17 09:30 (Kytril) 2 mg Q24H PO 03/30/17 13:00 04/03/17 13:01 03/30/17 13:00 Granisetron HCl 1 mg 1 mg Q24H IV PUSH 03/30/17 13:30 04/03/17 13:31 Hold 03/30/17 17:28 Decitabine 40 mg/ Sodium Chloride 250 ml @ 250 mls/hr Q24H IV 03/30/17 14:00 04/03/17 14:59 Hold 03/30/17 18:35 (Merrem Inj/NS Inj) 100 ml @ 200 mls/hr Q8H IV 03/31/17 14:00 04/02/17 05:17 (D50w (Vial) Inj) 50 ml UNSCH PRN IV 03/31/17 14:00 (Glucagon Inj) 1 mg UNSCH PRN OTHER 03/31/17 14:00 (Lanoxin) 0.125 mg DAILY PO 04/01/17 09:00 04/02/17 09:39 (Ramya-Colace) 1 tab BID PO 03/31/17 21:00 04/01/17 21:46 (Milk Of Magnesia Liq) 30 ml Q12H PRN PO 03/31/17 14:00 04/01/17 08:15 (Senokot) 17.2 mg Q12H PRN PO 03/31/17 14:00 (Dulcolax Supp) 10 mg DAILY PRN RECTAL 03/31/17 14:00 04/01/17 08:14 (Lactulose Liq) 30 ml DAILY PRN PO 03/31/17 14:00 04/01/17 08:13 (Lopressor) 12.5 mg Q12HR PO 04/01/17 11:45 04/02/17 09:39 Family History Both parents with hypertension and coronary artery disease. Patient has 2 adult children who are alive and well. . Substance Use Tobacco: Former smoker. Quit 4 years ago. Alcohol: Socially. Prescription med abuse: Denies. Illicits: Denies. . Psychosocial History Patient is originally from [place]. Moved to [place] 26 years ago. She is , has 2 adult children and 3 grandchildren. Residing independently prior to this hospitalization. 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 Working at [employer] when in [place], retired 5 years ago. . Spiritual/Cultural Factors [employer]lin biju. . (Luanne Montoya) Living Will: Copy in medical record Health Care Surrogate: Copy in medical record Durable Power of Area Coordinator: Never completed Date completed: 03/30/2017. . Health Care Surrogate(s): Son Sarthak Miguel as HCS, alternate HCS daughter Jerri Miguel. . Documented care wishes: "I do not wish to be revived by any means are recent. Allow natural if I feel that I cannot continue to treatment due to pain, I wish to stop all treatments and to be made comfortable until I pass". Today's verbally stated goals: No code. DNR/DNI. Continue conservative management short of no code. Receptive to hospice should clinical condition continues to worsen. . Family/friends goals: Son and daughter very supportive patient's wishes. . Ethical and Legal Issues No ethical legal issues identified. . (Luanne Montoya) Physical Exam Vital Signs Date Time Temp Pulse Resp B/P Pulse Ox O2 Delivery O2 Flow Rate FiO2 04/02/17 08:02 95 Nasal Cannula 4.00 04/02/17 06:00 83 04/02/17 04:00 83 04/02/17 04:00 98.9 86 21 95 04/02/17 02:00 78 04/02/17 00:00 77 04/02/17 00:00 98.7 81 21 146/71 94 04/01/17 22:00 103 04/01/17 20:38 96 Nasal Cannula 4.00 04/01/17 20:00 124 04/01/17 20:00 98.3 84 12 95 04/01/17 18:00 133 04/01/17 17:51 18 04/01/17 16:00 98.9 137 20 112/61 93 04/01/17 16:00 137 04/01/17 14:00 131 04/01/17 04/02/17 19:00 07:00 Intake Total 400 ml 480 ml Output Total 1450 ml 1400 ml Balance -1050 ml -920 ml Intake Oral 40 ml IV Total 360 ml 480 ml Output Urine Total 1450 ml 1400 ml # Bowel Movements 1 0 Exam CONSTITUTIONAL/GENERAL: This is an adequately nourished patient, in moderate distress secondary to increased work of breathing. TUBES/LINES/DRAINS: PIV's, nasal cannula, Lujan catheter. SKIN: No jaundice, rashes, or lesions. Ecchymoses on upper extremities. No wounds seen anteriorly. Skin temperature appropriate. Not diaphoretic. HEAD: Atraumatic. Normocephalic. EYES: Pupils equal and round and reactive. Extraocular motions intact. No scleral icterus. No injection or drainage. ENT: Hearing grossly normal. Nose without bleeding or purulent drainage. Moist oral mucosa. NECK: Trachea midline. Supple, nontender. CARDIOVASCULAR: Irregular rate and rhythm. Systolic murmur. No JVD. Peripheral pulses symmetric. RESPIRATORY/CHEST: Symmetric, increased work of breathing. Diminished to auscultation. GASTROINTESTINAL: Abdomen soft, round, mildly distended. No guarding. Bowel sounds present. GENITOURINARY: Without palpable bladder distension. Lujan catheter in place. MUSCULOSKELETAL: Extremities without clubbing, cyanosis, or edema. NEUROLOGICAL: Awake and alert. Motor and sensory grossly within normal limits. Follows commands. Moves all extremities. PSYCHIATRIC: Calm, pleasant. Tired looking. . (Luanne Montoya) Diagnostic Tests Laboratory Laboratory Tests Test 03/31/17 03/31/17 04/01/17 04/01/17 05:30 10:39 08:32 10:45 White Blood Count 35.0 TH/MM3 40.3 TH/MM3 (4.0-11.0) (4.0-11.0) Red Blood Count 2.63 MIL/MM3 2.84 MIL/MM3 (4.00-5.30) (4.00-5.30) Hemoglobin 7.8 GM/DL 8.3 GM/DL (11.6-15.3) (11.6-15.3) Hematocrit 23.9 % 25.7 % (35.0-46.0) (35.0-46.0) Mean Corpuscular Volume 90.9 FL 90.7 FL (80.0-100.0) (80.0-100.0) Mean Corpuscular Hemoglobin 29.7 PG 29.3 PG (27.0-34.0) (27.0-34.0) Mean Corpuscular Hemoglobin 32.7 % 32.3 % Concent (32.0-36.0) (32.0-36.0) Red Cell Distribution Width 18.4 % 19.2 % (11.6-17.2) (11.6-17.2) Platelet Count 66 TH/MM3 77 TH/MM3 (150-450) (150-450) Mean Platelet Volume 8.4 FL 8.5 FL (7.0-11.0) (7.0-11.0) Neutrophils (%) (Auto) % (16.0-70.0) % (16.0-70.0) Lymphocytes (%) (Auto) % (9.0-44.0) % (9.0-44.0) Monocytes (%) (Auto) % (0.0-8.0) % (0.0-8.0) Eosinophils (%) (Auto) % (0.0-4.0) % (0.0-4.0) Basophils (%) (Auto) % (0.0-2.0) % (0.0-2.0) Neutrophils # (Auto) TH/MM3 TH/MM3 (1.8-7.7) (1.8-7.7) Lymphocytes # (Auto) TH/MM3 TH/MM3 (1.0-4.8) (1.0-4.8) Monocytes # (Auto) TH/MM3 (0-0.9) TH/MM3 (0-0.9) Eosinophils # (Auto) TH/MM3 (0-0.4) TH/MM3 (0-0.4) Basophils # (Auto) TH/MM3 (0-0.2) TH/MM3 (0-0.2) CBC Comment AUTO DIFF AUTO DIFF Differential Total Cells 100 100 Counted Neutrophils % (Manual) 32 % (16-70) 45 % (16-70) Band Neutrophils % 1 % (0-6) 2 % (0-6) Lymphocytes % 21 % (9-44) 6 % (9-44) Monocytes % 17 % (0-8) 17 % (0-8) Neutrophils # (Manual) 14.4 TH/MM3 22.6 TH/MM3 (1.8-7.7) (1.8-7.7) Metamyelocytes 1 % (0-1) 1 % (0-1) Myelocytes 7 % (0-0) 8 % (0-0) Differential Comment FINAL DIFF FINAL DIFF MANUAL MANUAL Atypical Lymphocytes % (0-0) Blastocytes 21 % (0-0) 20 % (0-0) Platelet Estimate LOW (NORMAL) LOW (NORMAL) Platelet Morphology Comment NORMAL NORMAL (NORMAL) (NORMAL) Sodium Level 139 MEQ/L 139 MEQ/L (136-145) (136-145) Potassium Level 3.8 MEQ/L 4.2 MEQ/L (3.5-5.1) (3.5-5.1) Chloride Level 107 MEQ/L 104 MEQ/L (98-107) (98-107) Carbon Dioxide Level 24.9 MEQ/L 30.1 MEQ/L (21.0-32.0) (21.0-32.0) Anion Gap 7 MEQ/L (5-15) 5 MEQ/L (5-15) Blood Urea Nitrogen 14 MG/DL (7-18) 15 MG/DL (7-18) Creatinine 0.97 MG/DL 1.06 MG/DL (0.50-1.00) (0.50-1.00) Estimat Glomerular Filtration 57 ML/MIN (>89) 52 ML/MIN (>89) Rate Random Glucose 105 MG/DL 102 MG/DL (74-106) (74-106) Uric Acid 4.7 MG/DL 4.5 MG/DL (2.6-6.0) (2.6-6.0) Calcium Level 7.8 MG/DL 8.0 MG/DL (8.5-10.1) (8.5-10.1) Total Bilirubin 0.3 MG/DL 0.5 MG/DL (0.2-1.0) (0.2-1.0) Aspartate Amino Transf 43 U/L (15-37) 59 U/L (15-37) (AST/SGOT) Alanine Aminotransferase 32 U/L (10-53) 36 U/L (10-53) (ALT/SGPT) Alkaline Phosphatase 86 U/L (45-117) 109 U/L (45-117) B-Type Natriuretic Peptide 325 PG/ML (0-100) Total Protein 5.4 GM/DL 5.7 GM/DL (6.4-8.2) (6.4-8.2) Albumin 1.9 GM/DL 2.0 GM/DL (3.4-5.0) (3.4-5.0) Procalcitonin 0.43 ng/mL (0.00-0.50) Free Thyroxine 1.10 NG/DL (0.76-1.46) Thyroid Stimulating Hormone 6.560 uIU/ML 3rd Gen (0.358-3.740) Nasal Screen MRSA (PCR) MRSA NOT DETECTED (NOT DETECT) Eosinophils % 1 % (0-4) Phosphorus Level 2.6 MG/DL (2.5-4.9) Magnesium Level 2.5 MG/DL (1.5-2.5) Lactate Dehydrogenase 745 U/L (84-246) Blood Gas Puncture Site RT RADIAL Blood Gas Patient Temperature 98.6 Blood Gas HCO3 28 mmol/L (22-26) Blood Gas Base Excess 2.8 mmol/L (-2-2) Blood Gas Oxygen Saturation 95 % (90-100) Arterial Blood pH 7.38 (7.380-7.420) Arterial Blood Partial 48 mmHg (38-42) Pressure CO2 Arterial Blood Partial 132 mmHg Pressure O2 (61-120) Arterial Blood Oxygen Content 11.7 Vol % (12.0-20.0) Arterial Blood 0.0 % (0-4) Carboxyhemoglobin Arterial Blood Methemoglobin 1.3 % (0-2) Blood Gas Hemoglobin 8.5 G/DL (12.0-16.0) Oxygen Delivery Device PARTIAL REBREATHER Test 04/02/17 06:59 White Blood Count 29.3 TH/MM3 (4.0-11.0) Red Blood Count 2.68 MIL/MM3 (4.00-5.30) Hemoglobin 7.9 GM/DL (11.6-15.3) Hematocrit 24.1 % (35.0-46.0) Mean Corpuscular Volume 90.0 FL (80.0-100.0) Mean Corpuscular Hemoglobin 29.5 PG (27.0-34.0) Mean Corpuscular Hemoglobin 32.7 % Concent (32.0-36.0) Red Cell Distribution Width 18.2 % (11.6-17.2) Platelet Count 83 TH/MM3 (150-450) Mean Platelet Volume 8.8 FL (7.0-11.0) Neutrophils (%) (Auto) % (16.0-70.0) Lymphocytes (%) (Auto) % (9.0-44.0) Monocytes (%) (Auto) % (0.0-8.0) Eosinophils (%) (Auto) % (0.0-4.0) Basophils (%) (Auto) % (0.0-2.0) Neutrophils # (Auto) TH/MM3 (1.8-7.7) Lymphocytes # (Auto) TH/MM3 (1.0-4.8) Monocytes # (Auto) TH/MM3 (0-0.9) Eosinophils # (Auto) TH/MM3 (0-0.4) Basophils # (Auto) TH/MM3 (0-0.2) CBC Comment AUTO DIFF Differential Total Cells 100 Counted Neutrophils % (Manual) 40 % (16-70) Band Neutrophils % 2 % (0-6) Lymphocytes % 7 % (9-44) Monocytes % 16 % (0-8) Neutrophils # (Manual) 15.8 TH/MM3 (1.8-7.7) Metamyelocytes 4 % (0-1) Myelocytes 7 % (0-0) Promyelocytes 1 % (0-0) Nucleated Red Blood Cells 1 /100 WBC (0-0) Differential Comment FINAL DIFF MANUAL Blastocytes 23 % (0-0) Platelet Estimate LOW (NORMAL) Platelet Morphology Comment NORMAL (NORMAL) Sodium Level 138 MEQ/L (136-145) Potassium Level 3.7 MEQ/L (3.5-5.1) Chloride Level 100 MEQ/L (98-107) Carbon Dioxide Level 31.8 MEQ/L (21.0-32.0) Anion Gap 6 MEQ/L (5-15) Blood Urea Nitrogen 16 MG/DL (7-18) Creatinine 0.82 MG/DL (0.50-1.00) Estimat Glomerular Filtration 70 ML/MIN (>89) Rate Random Glucose 84 MG/DL (74-106) Uric Acid 4.4 MG/DL (2.6-6.0) Calcium Level 7.7 MG/DL (8.5-10.1) Total Bilirubin 0.4 MG/DL (0.2-1.0) Aspartate Amino Transf 59 U/L (15-37) (AST/SGOT) Alanine Aminotransferase 31 U/L (10-53) (ALT/SGPT) Alkaline Phosphatase 98 U/L (45-117) Lactate Dehydrogenase 646 U/L (84-246) Total Protein 5.3 GM/DL (6.4-8.2) Albumin 1.8 GM/DL (3.4-5.0) (Luanne Montoya) Result Diagram: 04/02/17 0659 04/02/17 0659 Microbiology Microbiology Date/Time Procedure Status Source Growth 03/31/17 18:40 Aerobic Blood Culture - Preliminary Resulted Blood Other NO GROWTH IN 2 DAYS 03/31/17 18:40 Anaerobic Blood Culture - Preliminary Resulted Blood Other NO GROWTH IN 2 DAYS 03/31/17 18:45 Aerobic Blood Culture - Preliminary Resulted Blood Other NO GROWTH IN 2 DAYS 03/31/17 18:45 Anaerobic Blood Culture - Preliminary Resulted Blood Other NO GROWTH IN 2 DAYS Imaging Last Impressions Chest X-Ray 04/02/17 0600 Signed Impressions: Service Date/Time: Sunday, April 02, 2017 03:28 - CONCLUSION: No significant change has occurred. Antwan Jensen MD Bone Biopsy CT 03/26/17 0000 Signed Impressions: Service Date/Time: Sunday, March 26, 2017 14:48 - CONCLUSION: 1. Uncomplicated CT guided bone marrow aspirate. 2. Uncomplicated CT guided bone marrow biopsy. Raoul Jeffries MD Lumbar Spine CT 03/25/172 Signed Impressions: Service Date/Time: Sunday, March 26, 2017 01:12 - CONCLUSION: 1. Degenerative disc changes greatest at the L4-5 and L5-S1 levels with broad-based disc osteophyte complexes. There is lateral recess stenosis at the L5-S1 level. 2. Mild retrolisthesis of L5 on S1 with degenerative disc change and broad-based disc osteophyte complex. 3. Narrowing of the neuroforamina bilaterally at the L4-5 and L5-S1 levels. 4. Degenerative disc change. Balaji Solorio MD CT Angiography 03/25/172128 Signed Impressions: Service Date/Time: Sunday, March 26, 2017 01:09 - CONCLUSION: 1. Mild consolidation along the left fissure and lower lobe. This could indicate early pneumonia. 2. No evidence of pulmonary embolism. Balaji Solorio MD (Luanne Montoya) Patient/Family Conference Present at Family Conference: Patient and daughter Jerri. . Family Conference Time (mins): 44 Family Conference Location: Bedside Issues Discussed: * Palliative care role, purpose, approach * Additional medical, psychosocial, and spiritual history * Patients general health, functional status, and cognitive changes in the months leading up to the current hospitalization * Patient/family understanding of the current medical problems -multiple acute on chronic comorbidities, newly diagnosed AML, respiratory failure. * Patient/family understanding of prognosis -poor prognosis given the above - physical deconditioning. * Patients goals of care as best understood from advance directives and/or conversations and/or values * Current medical treatment options and benefits/burdens of those options * Likely scenarios comparing ongoing aggressive care with a transition to comfort measures only * Questions answered to the best of my ability * Palliative care contact information provided * Hospice philosophy and benefits * CPR risks, benefits and limitations given patient's clinical condition . (Luanne Montoya) Assessment and Plan Disease Oriented Problem List: (1) Acute respiratory failure (2) AML (acute myeloid leukemia) (3) Sepsis (4) Pneumonia (5) CKD (chronic kidney disease) stage 3, GFR 30-59 ml/min (6) Atrial fibrillation with RVR (7) Anemia (8) hx cerebral aneurysm Symptom Scale: (1) Shortness of breath 0-10 Scale: 5 Comment: Secondary to pneumonia, pulmonary edema. Currently on O2 via nasal cannula at 4L. (2) Debility 0-10 Scale: Unable to quantify Comment: Progressive. Worsen within the last month. Pertinent Non-Medical Issues Psychosocial: Originally from [place]. , has 2 adult children. 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 Spiritual: Restorationism biju. Legal: Living will and designation of healthcare surrogate completed. Ethical issues impacting care: No ethical issues identified. . Important Contacts [facility]/son Sarthak Miguel daughter Jerri Miguel . . Prognosis Mrs. Sandi England is a 66 y/o female with a medical history significant for COPD, CK D, multiple brain aneurysm, HTN, TIA and newly diagnosed acute myeloid leukemia. Patient's overall prognosis is poor given ongoing acute on chronic comorbidities, newly diagnosed AML, respiratory failure and physical deconditioning. Patient very at high risk for further complications, continue decline and . . Code Status: No Code Plan * CODE STATUS: No code. DNR/DNI. Risks, benefits and limitations of CPR, intubation and mechanical ventilation has been discussed with patient and daughter. Patient electing no CODE STATUS. * HEALTHCARE DECISION MAKING: Patient participating in medical decision-making. Patient demonstrates a good understanding of her medical condition and the ability to weight benefits burdens of treatment options. Designation of healthcare surrogate in file, patient designated her son Sarthak Miguel as HCS, alternate HCS daughter Jerri Miguel. * GOALS OF CARE: Patient and family electing to continue conservative management short of NO code -DNR/DNI. Allow a few more days for clinical improvement. Hospice philosophy and benefits introduced. Discussed the future role of hospice should patient's clinical condition continues to worsen, increased symptoms burden or additional decline. Patient and family receptive to this. * SYMPTOMS: = Dyspnea, secondary to pneumonia, anemia, respiratory failure. ID following. Patient currently tolerating O2 via nasal cannula at 4 L. Declining intubation and mechanical ventilation. = Debility, progressive. Worsening during the past month. Exacerbated by acute illness and prolonged hospitalization. * Case has been discussed with Dr. Yarbrough, Dr Gomez and ANGEL Man. * Palliative care contact information has been provided to patient and family. * Palliative care will continue to follow-up for further clarifications of goals of care as patient's clinical course continues to evolve. . (Luanne Montoya) Time Spent Total Floor Time (mins): 83 (Total time to include review and summarization of available medical records to include prior ED visit and acute hospitalization, physical exam, goals of care discussion with patient and family, case discussion with Dr. Yarbrough, Dr. Gomez and ANGEL Man. ) >50% Counseling/Coord of Care: Yes (Luanne Montoya) Thank you for the opportunity to participate in the care of Ms. Richard. (Luanne Montoya) Attestation To help prompt me to consider important information that might be impacting today's encounter and assessment, information from prior notes written by myself or my colleagues may have been "brought forward" into today's note. My signature on this note, however, is an attestation that I personally performed the exam, history, and/or decision-making noted today, and, unless otherwise indicated, the interactions with patient, family, and staff as well as the review of records all occurred today. I also attest that the listed assessment and stated plan reflect my best clinical judgment today based on the combination of historical information, prior notes, and today's exam/ interactions. When time spent is documented, it refers only to time spent today by the signer, or if indicated, combined time spent today by collaborating physician/nurse practitioner. (Luanne Montoya) Collaborating MD Comments Chart reviewed. Case discussed with palliative care [employer]. Above note reviewed and I concur. . (Anatoliy Roach MD) Luanne Montoya Apr 02, 2017 12:51 Anatoliy Roach MD Jun 03, 2017 10:44
[2017-04-02] MEDS: GRANISETRON HCL 1 MG TAB PO SCH (13:00)
--- NOTE | 2017-04-02 13:50 | HHI.IDPN ---
Note Infectious Disease Note Patient on O2 NC 5L. Says she feels okay. Awake and responsive. No sputum production. No cough. Afebrile. WBC lower. Diagnosed with high-grade myeloid neoplasm. PAST MEDICAL HISTORY 1. Hypertension 2. Hypothyroidism 3. Chronic obstructive pulmonary disease 4. partial seizures 5. intracranial aneurysm 6. anxiety disorder. 7. Appendectomy. 8. The vein surgery in the left leg. ALLERGIES PENICILLIN OBJECTIVE: Vital Signs Date Time Temp Pulse Resp B/P Pulse Ox O2 Delivery O2 Flow Rate FiO2 04/02/17 08:02 95 Nasal Cannula 4.00 04/02/17 06:00 83 04/02/17 04:00 83 04/02/17 04:00 98.9 86 21 95 04/02/17 02:00 78 04/02/17 00:00 77 04/02/17 00:00 98.7 81 21 146/71 94 04/01/17 22:00 103 04/01/17 20:38 96 Nasal Cannula 4.00 04/01/17 20:00 124 04/01/17 20:00 98.3 84 12 95 04/01/17 18:00 133 04/01/17 17:51 18 04/01/17 16:00 98.9 137 20 112/61 93 04/01/17 16:00 137 04/01/17 14:00 131 Laboratory Tests Test 04/01/17 04/02/17 08:32 06:59 White Blood Count 40.3 TH/MM3 29.3 TH/MM3 Red Blood Count 2.84 MIL/MM3 2.68 MIL/MM3 Hemoglobin 8.3 GM/DL 7.9 GM/DL Hematocrit 25.7 % 24.1 % Mean Corpuscular Volume 90.7 FL 90.0 FL Mean Corpuscular Hemoglobin 29.3 PG 29.5 PG Mean Corpuscular Hemoglobin 32.3 % 32.7 % Concent Red Cell Distribution Width 19.2 % 18.2 % Platelet Count 77 TH/MM3 83 TH/MM3 Mean Platelet Volume 8.5 FL 8.8 FL Neutrophils (%) (Auto) % % Lymphocytes (%) (Auto) % % Monocytes (%) (Auto) % % Eosinophils (%) (Auto) % % Basophils (%) (Auto) % % Neutrophils # (Auto) TH/MM3 TH/MM3 Lymphocytes # (Auto) TH/MM3 TH/MM3 Monocytes # (Auto) TH/MM3 TH/MM3 Eosinophils # (Auto) TH/MM3 TH/MM3 Basophils # (Auto) TH/MM3 TH/MM3 CBC Comment AUTO DIFF AUTO DIFF Differential Total Cells 100 100 Counted Neutrophils % (Manual) 45 % 40 % Band Neutrophils % 2 % 2 % Lymphocytes % 6 % 7 % Monocytes % 17 % 16 % Eosinophils % 1 % Neutrophils # (Manual) 22.6 TH/MM3 15.8 TH/MM3 Metamyelocytes 1 % 4 % Myelocytes 8 % 7 % Differential Comment FINAL DIFF FINAL DIFF MANUAL MANUAL Blastocytes 20 % 23 % Platelet Estimate LOW LOW Platelet Morphology Comment NORMAL NORMAL Promyelocytes 1 % Nucleated Red Blood Cells 1 /100 WBC Laboratory Tests Test 04/01/17 04/02/17 08:32 06:59 Sodium Level 139 MEQ/L 138 MEQ/L Potassium Level 4.2 MEQ/L 3.7 MEQ/L Chloride Level 104 MEQ/L 100 MEQ/L Carbon Dioxide Level 30.1 MEQ/L 31.8 MEQ/L Anion Gap 5 MEQ/L 6 MEQ/L Blood Urea Nitrogen 15 MG/DL 16 MG/DL Creatinine 1.06 MG/DL 0.82 MG/DL Estimat Glomerular Filtration 52 ML/MIN 70 ML/MIN Rate Random Glucose 102 MG/DL 84 MG/DL Uric Acid 4.5 MG/DL 4.4 MG/DL Calcium Level 8.0 MG/DL 7.7 MG/DL Phosphorus Level 2.6 MG/DL Magnesium Level 2.5 MG/DL Total Bilirubin 0.5 MG/DL 0.4 MG/DL Aspartate Amino Transf 59 U/L 59 U/L (AST/SGOT) Alanine Aminotransferase 36 U/L 31 U/L (ALT/SGPT) Alkaline Phosphatase 109 U/L 98 U/L Lactate Dehydrogenase 745 U/L 646 U/L Total Protein 5.7 GM/DL 5.3 GM/DL Albumin 2.0 GM/DL 1.8 GM/DL Microbiology Date/Time Procedure Status Source Growth 03/31/17 18:40 Aerobic Blood Culture - Preliminary Resulted Blood Other NO GROWTH IN 2 DAYS 03/31/17 18:40 Anaerobic Blood Culture - Preliminary Resulted Blood Other NO GROWTH IN 2 DAYS 03/31/17 18:45 Aerobic Blood Culture - Preliminary Resulted Blood Other NO GROWTH IN 2 DAYS 03/31/17 18:45 Anaerobic Blood Culture - Preliminary Resulted Blood Other NO GROWTH IN 2 DAYS IMAGING: Chest X-Ray 04/02/17 0600 Signed Impressions: Service Date/Time: Sunday, April 02, 2017 03:28 - CONCLUSION: No significant change has occurred. Antwan Jensen MD Chest X-Ray 04/01/17 0000 Signed Impressions: Service Date/Time: Saturday, April 01, 2017 09:23 - CONCLUSION: 1. Stable left basilar opacity likely representing pleural effusion with associated volume loss and/or consolidation. 2. There is new diffuse hazy opacity over the right lung. However, given the patient's rotation this may explain the appearance and interval change. Suggest attention to this on followup imaging. Raoul Jeffries MD PHYSICAL EXAMINATION: GENERAL: No acute distress. HEAD, EYES, EARS, NOSE, AND THROAT: No icterus. Moist mucosa. NECK: Supple without adenopathy. LUNGS: Decreased breath sounds. HEART: Irregular rate and rhythm. No murmurs or rubs or gallops. ABDOMEN: Bowel sounds present, obese, soft, nontender. EXTREMITIES: No clubbing or cyanosis or edema. SKIN: No rash. NEUROLOGIC: Nonfocal. PSYCHIATRIC: Calm, anxious. IMPRESSION 1. Sepsis 2. Pneumonia. lung infiltrates. Decreased O2 saturation. 3. Leukocytosis. Not certain it is due to infection. 4. Acute renal failure. improving. 5. Acute myeloid leukemia. Received chemo. 6. Penicillin allergy. RECOMMENDATIONS 1. Continue Meropenem. 2. Monitor the temperature and white blood cell count. 3. Monitor clinical status. Brody Reich MD Apr 02, 2017 13:50
--- NOTE | 2017-04-02 15:41 | HHI.CCPN ---
Subjective Remarks/Hospital Course This is a 66-year-old female, that presented to the hospital with shortness of breath productive cough and generalized fatigue upon admission. Subsequent laboratory and imaging studies reveal a pneumonia. 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 Since admission the patient was placed on empiric antibiotic Azactam. Blood culture negative growth today, urine culture showed 50-100,000 of gram-positive chance. Hematology oncology initiated Dacogen first dose yesterday. The patient was noted to have a cardiac rhythm A. fib RVR cardiology was consulted, Dr. Chang the patient was placed on amiodarone 400 mg twice a day received a dose of digoxin last evening. The patient early this a.m., had A. fib RVR with dyspnea and hypoxemia with O2 sat duration in the 80s. Critical care medicine was consulted. Upon meeting and evaluating the patient the patient was noted to be in a sinus tachycardia with a heart rate [id number], with an O2 saturation on nonrebreather of 91-92%. The patient received 20 mg IV Lasix upon arrival, with subsequent diuresis of approximately 1 L, and decreased in FiO2 requirements. The patient was noted to have a significant leukocytosis, with 1 % bands, pro-calcitonin level was drawn ID was consulted. Subjective: 04/01: The patient required increasing FiO2 requirements overnight. The patient currently on nonrebreather mask O2 saturation 94%. Stat chest x-ray obtain results pending, stat ABG results pending. Discussion with patient and son regarding the probable likelihood of intubation this a.m.. All questions answered. The patient remains nothing by mouth at this time. ID was consulted yesterday regarding the leukocytosis and elevation in temperature, following recommendations. 04/02: No acute events overnight. Patient's oxygen requirements remain at 4 L/m nasal cannula. Palliative care team in extensive discussion with family, patient CODE STATUS been made DNR/DNI. Heart healthy diet has been resumed. Objective Vital Signs Date Time Temp Pulse Resp B/P Pulse Ox O2 Delivery O2 Flow Rate FiO2 04/02/17 14:00 78 9 110/56 94 04/02/17 12:00 98.6 04/02/17 08:02 Nasal Cannula 4.00 03/31/17 20:48 50 Intake and Output 04/01/17 04/01/17 04/02/17 08:00 16:00 00:00 Intake Total 512 ml 400 ml 140 ml Output Total 250 ml 1450 ml 550 ml Balance 262 ml -1050 ml -410 ml Result Diagram: 04/02/17 0659 04/02/17 0659 Imaging Last Impressions Chest X-Ray 03/31/17 0000 Signed Impressions: Service Date/Time: Friday, March 31, 2017 09:53 - CONCLUSION: New left basilar opacity with features characteristic of pleural effusion with associated volume loss and/or airspace consolidation. Raoul Jeffries MD Bone Biopsy CT 03/26/17 0000 Signed Impressions: Service Date/Time: Sunday, March 26, 2017 14:48 - CONCLUSION: 1. Uncomplicated CT guided bone marrow aspirate. 2. Uncomplicated CT guided bone marrow biopsy. Raoul Jeffries MD Lumbar Spine CT [id number] Signed Impressions: Service Date/Time: Sunday, March 26, 2017 01:12 - CONCLUSION: 1. Degenerative disc changes greatest at the L4-5 and L5-S1 levels with broad-based disc osteophyte complexes. There is lateral recess stenosis at the L5-S1 level. 2. Mild retrolisthesis of L5 on S1 with degenerative disc change and broad-based disc osteophyte complex. 3. Narrowing of the neuroforamina bilaterally at the L4-5 and L5-S1 levels. 4. Degenerative disc change. Balaji Solorio MD CT Angiography [id number] Signed Impressions: Service Date/Time: Sunday, March 26, 2017 01:09 - CONCLUSION: 1. Mild consolidation along the left fissure and lower lobe. This could indicate early pneumonia. 2. No evidence of pulmonary embolism. Balaji Solorio MD Objective Remarks BP 106/65 Pulse 99 O2 sat duration 94% on 4 LPM GENERAL: Obese female in no respiratory distress on N/C SKIN: Warm and dry. HEAD: Atraumatic. Normocephalic. EYES: Pupils equal and round. No scleral icterus. No injection or drainage. ENT: No nasal bleeding or discharge. Mucous membranes pink and moist. NECK: Trachea midline. No JVD. CARDIOVASCULAR: Normal rate, regular rhythm. Telemetry sinus rhythm RESPIRATORY: No accessory muscle use. Clear to auscultation. Breath sounds equal bilaterally. GASTROINTESTINAL: Abdomen soft, protuberant ,non-tender, nondistended. No guarding. MUSCULOSKELETAL: Extremities without clubbing, cyanosis, or edema. No obvious deformities. NEUROLOGICAL: Awake and alert. RASS 0. GCS 15 No gross focal/sensory deficits. Follows commands in all 4 extremities. A/P Assessment and Plan Assessment Hypotension was likely secondary to sepsis Sepsis A. fib RVR with conversion to Sinus tachycardia Respiratory Insufficiency Pneumonia-left lower lobe (left basilar opacity) Persistent leukocytosis Bandemia Pleural effusions Acute myeloid leukemia Anemia Thrombocytopenia CKD stage 3 H/O chronic HTN H/O cerebral aneurysm H/O CVA with residual weakness Hypothyroidism Mild protein calorie malnutrition Morbid obesity Chronic pain Constipation Plan Neurologic: -GCS 15, appropriately responsive -Maintain sleep hygiene, avoid ICU delirium, maintains stimulation during the day - Restoril 15 mg at bedtime when necessary for insomnia, avoid multiple disruptions at night -[place] 10/325 PRN Respiratory: -Maintain O2 sat greater than 92% -Scheduled continue bronchodilators 4 times a day scheduled -Wean O2 as tolerated -Maintain head of bed 30 -8/5 CXR-left basilar opacity, pleural effusion Cardiovascular: -Metoprolol 2.5 mg IV every 6 hours when necessary for heart rate greater than 100bpm -Cardiology following- Dr. Chang -Discontinue amiodarone 400 mg twice a day, atorvastatin. Management per Cardiology Dr. Kwong -Discontinue Terazosin in the setting of hypotension Renal: - Maintain thomson -- Strict I/Os FEN/GI: -Monitor electrolytes -Resume heart healthy diet -Bowel regimen Heme/ID: -Hematology oncology following Dr. Yarbrough -Allopurinol continued per hematology oncology-prophylaxis for tumor lysis syndrome -Granisetron scheduled, ondansetron PRN for nausea -Dacogen dosing per Hematology-Oncology Endocrine: -Levothyroxine 100 mcgs/day -Glucose monitoring per ICU protocol -- SSI Prophylaxis: GI Prophylaxis Pepcid DVT Prophylaxis -- SCDs No pharmacological DVT prophylaxis in the setting of thrombocytopenia defer to HematologyOncology Lines: PIV x 1, obtain vascular access for additional IV Dispo: Level [address] Yarbrough, Palliative Care,and Dr. Chang. Physician Sita Hu MD Apr 02, 2017 15:40
[2017-04-02] MEDS ORDERED: POTASSIUM CHLORIDE 25 MEQ EFFERVESCENT TAB PO ONE (15:45)
[2017-04-02] MEDS ORDERED: FUROSEMIDE 40 MG/4 ML VIAL IV PUSH ONE (16:00)
--- NOTE | 2017-04-02 19:19 | PD.CARD.PN ---
Subjective Subjective Remarks Patient seen this morning Still with episodes of Afib with RVR No chest pain, SOB overall better Objective Medications Current Medications Medications (Trade) Dose Ordered Sig/Tylor Route Start Time Stop Time Status Last Admin (NS Flush) 2 ml UNSCH PRN IV FLUSH 03/25/17 23:15 (NS Flush) 2 ml BID IV FLUSH 03/26/17 09:00 04/02/17 09:40 (Tylenol) 650 mg Q4H PRN PO 03/25/17 23:15 03/30/17 08:26 (Zofran Inj) 4 mg Q6H PRN IVP 03/25/17 23:15 03/29/17 21:36 (Tylenol) 650 mg Q6H PRN PO 03/25/17 23:15 03/26/17 08:14 (Narcan Inj) 0.4 mg UNSCH PRN IV 03/25/17 23:15 (Senokot) 17.2 mg Q12H PRN PO 03/25/17 23:15 03/31/17 16:59 (Robitussin Dm 200-20 Mg/10 ml Liq) 10 ml Q4H PRN PO 03/25/17 23:15 (Pepcid) 10 mg BID PO 03/26/17 09:00 04/02/17 09:40 (Pill Splitter) 1 ea UNSCH PRN OTHER 03/25/17 23:30 (Restoril) 15 mg HS PRN PO 03/26/17 00:30 04/02/17 01:23 (Zyloprim) 100 mg BID PO 03/26/17 09:00 04/02/17 09:39 (Mycostatin Liq) 5 ml QID SWISH-SWAL 03/26/17 18:00 04/02/17 18:15 (Lipitor) 40 mg DAILY PO 03/28/17 09:00 04/02/17 09:40 (LaMICtal) 50 mg HS PO 03/27/17 21:00 04/01/17 21:46 (Synthroid) 100 mcg DAILY@06 PO 03/28/17 06:00 04/02/17 05:17 (Luxora 10-325 Mg) 1 tab Q4H PRN PO 03/28/17 09:15 04/02/17 16:34 (Ativan) 1 mg Q6H PRN PO 03/28/17 09:15 04/02/17 05:18 (Compazine Inj) 5 mg Q4H PRN IV PUSH 03/28/17 09:30 (Kytril) 2 mg Q24H PO 03/30/17 13:00 04/03/17 13:01 03/30/17 13:00 Granisetron HCl 1 mg 1 mg Q24H IV PUSH 03/30/17 13:30 04/03/17 13:31 Hold 03/30/17 17:28 Decitabine 40 mg/ Sodium Chloride 250 ml @ 250 mls/hr Q24H IV 03/30/17 14:00 04/03/17 14:59 Hold 03/30/17 18:35 (Merrem Inj/NS Inj) 100 ml @ 200 mls/hr Q8H IV 03/31/17 14:00 04/02/17 13:34 (D50w (Vial) Inj) 50 ml UNSCH PRN IV 03/31/17 14:00 (Glucagon Inj) 1 mg UNSCH PRN OTHER 03/31/17 14:00 (Lanoxin) 0.125 mg DAILY PO 04/01/17 09:00 04/02/17 09:39 (Ramya-Colace) 1 tab BID PO 03/31/17 21:00 04/01/17 21:46 (Milk Of Magnesia Liq) 30 ml Q12H PRN PO 03/31/17 14:00 04/01/17 08:15 (Senokot) 17.2 mg Q12H PRN PO 03/31/17 14:00 (Dulcolax Supp) 10 mg DAILY PRN RECTAL 03/31/17 14:00 04/01/17 08:14 (Lactulose Liq) 30 ml DAILY PRN PO 03/31/17 14:00 04/01/17 08:13 (Lopressor) 12.5 mg Q12HR PO 04/01/17 11:45 04/02/17 19:11 (Lasix Inj) 40 mg DAILY IV PUSH 04/03/17 09:00 Vital Signs / I&O Vital Signs Date Time Temp Pulse Resp B/P Pulse Ox O2 Delivery O2 Flow Rate FiO2 04/02/17 18:30 90 04/02/17 18:00 88 04/02/17 17:30 92 04/02/17 17:00 97 04/02/17 16:34 98 04/02/17 16:34 98 25 142/80 88 04/02/17 16:00 90 04/02/17 16:00 98.3 90 15 141/65 94 04/02/17 15:30 82 04/02/17 15:30 82 14 125/58 93 04/02/17 15:00 91 04/02/17 15:00 91 28 138/74 89 04/02/17 14:00 78 9 110/56 94 04/02/17 14:00 78 04/02/17 13:30 78 10 113/55 94 04/02/17 13:30 78 04/02/17 13:00 79 04/02/17 13:00 79 10 102/58 94 04/02/17 12:30 74 12 119/57 99 04/02/17 12:30 74 04/02/17 12:00 81 04/02/17 12:00 98.6 81 15 138/63 91 04/02/17 11:30 82 13 116/56 91 04/02/17 11:30 82 04/02/17 11:00 82 04/02/17 11:00 82 22 119/68 95 04/02/17 10:30 87 04/02/17 10:30 87 18 139/65 95 04/02/17 10:00 90 04/02/17 10:00 90 23 134/66 92 04/02/17 09:38 128 22 128/77 91 04/02/17 09:00 127 23 119/67 84 04/02/17 09:00 127 04/02/17 08:30 79 04/02/17 08:30 79 17 115/67 100 04/02/17 08:02 95 Nasal Cannula 4.00 04/02/17 08:01 91 25 138/72 93 04/02/17 08:00 98.6 91 25 138/72 93 04/02/17 08:00 90 04/02/17 07:30 77 10 126/63 93 04/02/17 07:00 80 15 133/65 93 04/02/17 06:00 83 04/02/17 04:00 83 04/02/17 04:00 98.9 86 21 95 04/02/17 02:00 78 04/02/17 00:00 77 04/02/17 00:00 98.7 81 21 146/71 94 04/01/17 22:00 103 04/01/17 20:38 96 Nasal Cannula 4.00 04/01/17 20:00 124 04/01/17 20:00 98.3 84 12 95 I/O 04/01/17 04/01/17 04/01/17 04/02/17 04/02/17 04/02/17 07:00 15:00 23:00 07:00 15:00 23:00 Intake Total 512 ml 400 ml 140 ml 340 ml 983 ml Output Total 250 ml 1450 ml 550 ml 850 ml 400 ml 875 ml Balance 262 ml -1050 ml -410 ml -510 ml 583 ml -875 ml Intake Oral 360 ml 40 ml 720 ml IV Total 152 ml 360 ml 140 ml 340 ml 263 ml Output Urine Total 250 ml 1450 ml 550 ml 850 ml 400 ml 875 ml # Voids 4 # Bowel Movements 0 1 0 0 0 Physical Exam GENERAL: NAD SKIN: Warm and dry. HEAD: Atraumatic. Normocephalic. EYES: Pupils equal and round. No scleral icterus. No injection or drainage. ENT: No nasal bleeding or discharge. Mucous membranes pink and moist. NECK: Trachea midline. No JVD. CARDIOVASCULAR: Irregularly irregular RESPIRATORY: No accessory muscle use. Decreased breath sounds bilaterally GASTROINTESTINAL: Abdomen soft, non-tender, nondistended. Hepatic and splenic margins not palpable. MUSCULOSKELETAL: Extremities without clubbing, cyanosis, or edema. No obvious deformities. NEUROLOGICAL: Awake and alert. No obvious cranial nerve deficits. Motor grossly within normal limits. Five out of 5 muscle strength in the arms and legs. Normal speech. PSYCHIATRIC: Appropriate mood and affect; insight and judgment normal. Laboratory Laboratory Tests Test 04/02/17 06:59 White Blood Count 29.3 TH/MM3 Red Blood Count 2.68 MIL/MM3 Hemoglobin 7.9 GM/DL Hematocrit 24.1 % Mean Corpuscular Volume 90.0 FL Mean Corpuscular Hemoglobin 29.5 PG Mean Corpuscular Hemoglobin 32.7 % Concent Red Cell Distribution Width 18.2 % Platelet Count 83 TH/MM3 Mean Platelet Volume 8.8 FL Neutrophils (%) (Auto) % Lymphocytes (%) (Auto) % Monocytes (%) (Auto) % Eosinophils (%) (Auto) % Basophils (%) (Auto) % Neutrophils # (Auto) TH/MM3 Lymphocytes # (Auto) TH/MM3 Monocytes # (Auto) TH/MM3 Eosinophils # (Auto) TH/MM3 Basophils # (Auto) TH/MM3 CBC Comment AUTO DIFF Differential Total Cells 100 Counted Neutrophils % (Manual) 40 % Band Neutrophils % 2 % Lymphocytes % 7 % Monocytes % 16 % Neutrophils # (Manual) 15.8 TH/MM3 Metamyelocytes 4 % Myelocytes 7 % Promyelocytes 1 % Nucleated Red Blood Cells 1 /100 WBC Differential Comment FINAL DIFF MANUAL Blastocytes 23 % Platelet Estimate LOW Platelet Morphology Comment NORMAL Sodium Level 138 MEQ/L Potassium Level 3.7 MEQ/L Chloride Level 100 MEQ/L Carbon Dioxide Level 31.8 MEQ/L Anion Gap 6 MEQ/L Blood Urea Nitrogen 16 MG/DL Creatinine 0.82 MG/DL Estimat Glomerular Filtration 70 ML/MIN Rate Random Glucose 84 MG/DL Uric Acid 4.4 MG/DL Calcium Level 7.7 MG/DL Total Bilirubin 0.4 MG/DL Aspartate Amino Transf 59 U/L (AST/SGOT) Alanine Aminotransferase 31 U/L (ALT/SGPT) Alkaline Phosphatase 98 U/L Lactate Dehydrogenase 646 U/L Total Protein 5.3 GM/DL Albumin 1.8 GM/DL Assessment and Plan Problem List: (1) Paroxysmal atrial fibrillation (2) Hypertension (3) Chest pain (4) AML (acute myeloid leukemia) (5) Thrombocytopenia (6) Anemia Assessment and Plan 1) SOB most likely secondary to PNA/CHF/Tachyarrhythmia 2) Previously on amio but stopped as not working, loaded with digoxin Now BP better will increase BB 3) No antiplatelet/anticoagulant due to thrombocytopenia Problem Qualifiers (1) Hypertension: Qualified Code: I10 - Essential hypertension (2) Chest pain: Qualified Code: R07.9 - Chest pain, unspecified type (3) AML (acute myeloid leukemia): Qualified Code: C92.00 - Acute myeloid leukemia not having achieved remission (4) Anemia: Qualified Code: D64.9 - Anemia, unspecified type Donal Chang DO Apr 02, 2017 19:19
--- NOTE | 2017-04-02 20:01 | HHI.PR ---
Subjective Interval History Alert, oriented, no complaints at rest, tachycardic Review of Systems Constitutional Constitutional Remarks 10 systems reviewed and otherwise negative Vitals/Results Intake & Output 04/01/17 04/01/17 04/02/17 15:00 23:00 07:00 Intake Total 400 ml 140 ml 340 ml Output Total 1450 ml 550 ml 850 ml Balance -1050 ml -410 ml -510 ml Intake Oral 40 ml IV Total 360 ml 140 ml 340 ml Output Urine Total 1450 ml 550 ml 850 ml # Bowel Movements 1 0 0 Vital Signs Vital Signs Date Time Temp Pulse Resp B/P Pulse Ox O2 Delivery O2 Flow Rate FiO2 04/02/17 19:44 96 Partial Rebreather 12.00 04/02/17 18:30 90 04/02/17 18:00 88 04/02/17 17:30 92 04/02/17 17:00 97 04/02/17 16:34 98 04/02/17 16:34 98 25 142/80 88 04/02/17 16:00 90 04/02/17 16:00 98.3 90 15 141/65 94 04/02/17 15:30 82 04/02/17 15:30 82 14 125/58 93 04/02/17 15:00 91 04/02/17 15:00 91 28 138/74 89 04/02/17 14:00 78 9 110/56 94 04/02/17 14:00 78 04/02/17 13:30 78 10 113/55 94 04/02/17 13:30 78 04/02/17 13:00 79 04/02/17 13:00 79 10 102/58 94 04/02/17 12:30 74 12 119/57 99 04/02/17 12:30 74 04/02/17 12:00 81 04/02/17 12:00 98.6 81 15 138/63 91 04/02/17 11:30 82 13 116/56 91 04/02/17 11:30 82 04/02/17 11:00 82 04/02/17 11:00 82 22 119/68 95 04/02/17 10:30 87 04/02/17 10:30 87 18 139/65 95 04/02/17 10:00 90 04/02/17 10:00 90 23 134/66 92 04/02/17 09:38 128 22 128/77 91 04/02/17 09:00 127 23 119/67 84 04/02/17 09:00 127 04/02/17 08:30 79 04/02/17 08:30 79 17 115/67 100 04/02/17 08:02 95 Nasal Cannula 4.00 04/02/17 08:01 91 25 138/72 93 04/02/17 08:00 98.6 91 25 138/72 93 04/02/17 08:00 90 04/02/17 07:30 77 10 126/63 93 04/02/17 07:00 80 15 133/65 93 04/02/17 06:00 83 04/02/17 04:00 83 04/02/17 04:00 98.9 86 21 95 04/02/17 02:00 78 04/02/17 00:00 77 04/02/17 00:00 98.7 81 21 146/71 94 04/01/17 22:00 103 04/01/17 20:38 96 Nasal Cannula 4.00 04/01/17 20:00 124 04/01/17 20:00 98.3 84 12 95 CBC/BMP: 04/02/17 0659 04/02/17 0659 Lab Results Laboratory Tests Test 04/02/17 06:59 White Blood Count 29.3 TH/MM3 Red Blood Count 2.68 MIL/MM3 Hemoglobin 7.9 GM/DL Hematocrit 24.1 % Mean Corpuscular Volume 90.0 FL Mean Corpuscular Hemoglobin 29.5 PG Mean Corpuscular Hemoglobin 32.7 % Concent Red Cell Distribution Width 18.2 % Platelet Count 83 TH/MM3 Mean Platelet Volume 8.8 FL Neutrophils (%) (Auto) % Lymphocytes (%) (Auto) % Monocytes (%) (Auto) % Eosinophils (%) (Auto) % Basophils (%) (Auto) % Neutrophils # (Auto) TH/MM3 Lymphocytes # (Auto) TH/MM3 Monocytes # (Auto) TH/MM3 Eosinophils # (Auto) TH/MM3 Basophils # (Auto) TH/MM3 CBC Comment AUTO DIFF Differential Total Cells 100 Counted Neutrophils % (Manual) 40 % Band Neutrophils % 2 % Lymphocytes % 7 % Monocytes % 16 % Neutrophils # (Manual) 15.8 TH/MM3 Metamyelocytes 4 % Myelocytes 7 % Promyelocytes 1 % Nucleated Red Blood Cells 1 /100 WBC Differential Comment FINAL DIFF MANUAL Blastocytes 23 % Platelet Estimate LOW Platelet Morphology Comment NORMAL Sodium Level 138 MEQ/L Potassium Level 3.7 MEQ/L Chloride Level 100 MEQ/L Carbon Dioxide Level 31.8 MEQ/L Anion Gap 6 MEQ/L Blood Urea Nitrogen 16 MG/DL Creatinine 0.82 MG/DL Estimat Glomerular Filtration 70 ML/MIN Rate Random Glucose 84 MG/DL Uric Acid 4.4 MG/DL Calcium Level 7.7 MG/DL Total Bilirubin 0.4 MG/DL Aspartate Amino Transf 59 U/L (AST/SGOT) Alanine Aminotransferase 31 U/L (ALT/SGPT) Alkaline Phosphatase 98 U/L Lactate Dehydrogenase 646 U/L Total Protein 5.3 GM/DL Albumin 1.8 GM/DL Physical Exam General General Appearance: Well Developed, Well Nourished, No Acute Distress, Anxious , Obese Eyes Eye Exam: Pupils Equal, Pupils Reactive Ears & Nose Ears & Nose Exam: Nasal Mucosa [place] Throat Throat Exam: Oral Mucosa [place] & Moist Neck Neck Exam: Neck Supple, Trachea Midline Pulmonary Resp Exam: Breath Sounds Equal, Crackles, Decreased Bases Cardiology CV Exam: Regular, Normal Sinus Rhythm, Good Perfusion Gastrointestinal/Abdomen GI Exam: Soft, Non-Tender, Bowel Sounds Present, Non-Distended Musculoskeletal MS Exam: Normal Tone Integumentary Skin Exam: Warm, Dry Extremeties Extremities Exam: No Edema, Pedal Pulses Palpable Neurologic Neuro Exam: Alert, Awake, Oriented, Speech Clear, Moving All Extremities, No Focal Deficits Psychiatric Psych Exam: Appropriate Responses VTE Prophylaxis VTE Prophylaxis Device: SCDs Assessment/Plan Problem List: (1) Sepsis (2) Anemia (3) Thrombocytopenia (4) Elevated white blood cell count (5) Pneumonia (6) CKD (chronic kidney disease) stage 3, GFR 30-59 ml/min (7) AML (acute myeloid leukemia) (8) Low blood pressure (9) Tachycardia (10) Hx TIA/stroke w/o resid (11) hx cerebral aneurysm (12) Atrial fibrillation with RVR Assessment/Plan Assessment Sepsis Pneumonia Hypoxemia Anemia Thrombocytopenia Obesity Acute myeloid leukemia, Received Dacogen Acute kidney injury, improved Paroxysmal atrial tachycardia/atrial fibrillation History of TIA, chronic kidney disease, constipation, back pain, penicillin allergy, Management Continue antibiotics, currently on meropenem, infectious disease following Monitor CBC, hematology oncology following Continue Lopressor, in addition when necessary IV Lopressor for sustained heart rate above 120 Cardiology following Supplemental oxygen Follow renal function Follow electrolytes and replace as needed Possible need for transfusion This will be deferred to hematology oncology Discussed with patient in detail Discussed with nurse 35 minutes Problem Qualifiers (1) Sepsis: Qualified Code: A41.9 - Sepsis, due to unspecified organism (2) Anemia: Qualified Code: D64.9 - Anemia, unspecified type (3) Elevated white blood cell count: Qualified Code: D72.829 - Leukocytosis, unspecified type (4) Pneumonia: Qualified Code: J18.1 - Pneumonia of left lower lobe due to infectious organism (5) AML (acute myeloid leukemia): Qualified Code: C92.00 - Acute myeloid leukemia not having achieved remission (6) Low blood pressure: Qualified Code: I95.9 - Hypotension, unspecified hypotension type Qamar Paniagua MD Apr 02, 2017 20:01
[2017-04-02] MEDS: lamoTRIgine 25 MG TAB PO SCH (20:53)
[2017-04-02] MEDS ORDERED: METOPROLOL TARTRATE 25 MG TAB PO SCH (21:00)
[2017-04-03] VITALS (36 sets, daily range): BP systolic 85–128; BP diastolic 49–68; PULSE 74–127; RESP 9–28; TEMP 97.4–99.5; O2SAT 87–100
[2017-04-03] MEDS: ACETAMINOPHEN/HYDROcodone 325 MG/10 MG TAB PO PRN ×5 (01:25→21:32)
[2017-04-03] MEDS: LORazepam 1 MG TAB PO PRN ×2 (01:25→06:52)
[2017-04-03] MEDS: MEROPENEM INJ 1,000 MG in SODIUM CHLORIDE 0.9% INJ 100 ML IV SCH ×4 (01:27→21:34)
[2017-04-03] MEDS: METOPROLOL TARTRATE 5 MG/5 ML VIAL IV PUSH PRN ×2 (02:51→10:14)
[2017-04-03] MEDS ORDERED: DILTIAZEM HCL 25 MG/5 ML VIAL IV ONE (04:45)
[2017-04-03] MEDS: METOPROLOL TARTRATE 25 MG TAB PO SCH ×3 (05:07→18:19)
[2017-04-03] MEDS: LEVOTHYROXINE SODIUM 100 MCG TAB PO SCH (05:15)
[2017-04-03] MEDS: INSULIN ASPART SUPPLEMENTAL SCALE SQ SCH ×4 (06:30→21:00)
[2017-04-03 07:00] LABS: MEAN CELL VOLUME 89.9 FL (80.0-100.0); MEAN CORPUSCULAR HEMOGLOBIN 29.3 PG (27.0-34.0); MEAN CORPUSCULAR HGB CONC 32.6 % (32.0-36.0); PLATELET COUNT 85 TH/MM3 (150-450); RED BLOOD COUNT 2.67 MIL/MM3 (4.00-5.30); RED CELL DISTRIBUTION WIDTH 18.2 % (11.6-17.2); WHITE BLOOD COUNT 28.5 TH/MM3 (4.0-11.0)
[2017-04-03 07:08] LABS: HEMO FLAGS AUTO DIFF
[2017-04-03 07:25] LABS: ALT (GPT) 32 U/L (10-53); ANION GAP 5 MEQ/L (5-15); AST (GOT) 69 U/L (15-37); BLOOD UREA NITROGEN 16 MG/DL (7-18); CHLORIDE 97 MEQ/L (98-107); GLOMERULAR FILTRATION RATE 70 ML/MIN (>89); MAGNESIUM 2.6 MG/DL (1.5-2.5); POTASSIUM 3.9 MEQ/L (3.5-5.1); SODIUM (NA) 138 MEQ/L (136-145); URIC ACID 4.3 MG/DL (2.6-6.0)
[2017-04-03] MEDS: FAMOTIDINE 20 MG TAB PO SCH ×2 (07:29→21:30)
[2017-04-03] MEDS: ATORVASTATIN 40 MG TAB PO SCH (07:29)
[2017-04-03] MEDS: ALLOPURINOL 100 MG TAB PO SCH ×2 (07:29→21:34)
[2017-04-03] MEDS: DIGOXIN 0.25 MG TAB PO SCH (07:30)
[2017-04-03] MEDS: SODIUM CHLORIDE 0.9% FLUSH 10 ML FLUSH IV FLUSH SCH ×2 (07:30→21:33)
[2017-04-03] MEDS: NYSTATIN SUSP 500,000 U/5 ML CUP SWISH-SWAL SCH ×4 (07:30→21:30)
[2017-04-03] MEDS: DOCUSATE SODIUM 50 MG/SENNA 8.6 MG TAB PO SCH ×2 (07:30→21:30)
[2017-04-03 07:40] LABS: ALKALINE PHOSPHATASE 106 U/L (45-117); DIGOXIN 1.7 NG/ML (0.8-2.0); LDH SERUM 748 U/L (84-246); TOTAL BILIRUBIN ADULT 0.4 MG/DL (0.2-1.0)
--- NOTE | 2017-04-03 07:44 | PD.ONC.PN ---
Subjective Subjective Remarks Patient seen and examined, vital signs, medications, labs and overnight events reviewed. Overnight the patient became short of breath and required oxygen via nonrebreather for a short period of time. She is now back on nasal cannula. Her heart rate is sustained at approximately 110 beats per minute. She did have a bowel movement yesterday and was diuresed aggressively. Patient tells me it has been difficult getting in and out of bed to use the bedside commode. We talked about placing a Lujan catheter today. We also talked about proceeding with day 2 Dacogen. Objective Data Date Time Temp Pulse Resp B/P Pulse Ox O2 Delivery O2 Flow Rate FiO2 04/03/17 06:00 117 04/03/17 04:00 97.4 118 9 98 04/03/17 04:00 118 04/03/17 02:28 14 04/03/17 02:00 125 04/03/17 00:00 80 04/03/17 00:00 97.8 80 14 109/58 99 04/02/17 22:00 83 04/02/17 20:00 140 04/02/17 20:00 98.2 140 19 129/73 97 04/02/17 19:44 96 Partial Rebreather 12.00 04/02/17 18:30 90 04/02/17 18:00 88 04/02/17 17:30 92 04/02/17 17:00 97 04/02/17 16:34 98 04/02/17 16:34 98 25 142/80 88 04/02/17 16:00 90 04/02/17 16:00 98.3 90 15 141/65 94 04/02/17 15:30 82 04/02/17 15:30 82 14 125/58 93 04/02/17 15:00 91 04/02/17 15:00 91 28 138/74 89 04/02/17 14:00 78 9 110/56 94 04/02/17 14:00 78 04/02/17 13:30 78 10 113/55 94 04/02/17 13:30 78 04/02/17 13:00 79 04/02/17 13:00 79 10 102/58 94 04/02/17 12:30 74 12 119/57 99 04/02/17 12:30 74 04/02/17 12:00 81 04/02/17 12:00 98.6 81 15 138/63 91 04/02/17 11:30 82 13 116/56 91 04/02/17 11:30 82 04/02/17 11:00 82 04/02/17 11:00 82 22 119/68 95 04/02/17 10:30 87 04/02/17 10:30 87 18 139/65 95 04/02/17 10:00 90 04/02/17 10:00 90 23 134/66 92 04/02/17 09:38 128 22 128/77 91 04/02/17 09:00 127 23 119/67 84 04/02/17 09:00 127 04/02/17 08:30 79 04/02/17 08:30 79 17 115/67 100 04/02/17 08:02 95 Nasal Cannula 4.00 04/02/17 08:01 91 25 138/72 93 04/02/17 08:00 98.6 91 25 138/72 93 04/02/17 08:00 90 Result Diagram: 04/03/17 0559 04/03/17 0559 Laboratory Results Laboratory Tests Test 04/03/17 05:59 White Blood Count 28.5 TH/MM3 Red Blood Count 2.67 MIL/MM3 Hemoglobin 7.8 GM/DL Hematocrit 24.0 % Mean Corpuscular Volume 89.9 FL Mean Corpuscular Hemoglobin 29.3 PG Mean Corpuscular Hemoglobin 32.6 % Concent Red Cell Distribution Width 18.2 % Platelet Count 85 TH/MM3 Mean Platelet Volume 8.3 FL Neutrophils (%) (Auto) % Lymphocytes (%) (Auto) % Monocytes (%) (Auto) % Eosinophils (%) (Auto) % Basophils (%) (Auto) % Neutrophils # (Auto) TH/MM3 Lymphocytes # (Auto) TH/MM3 Monocytes # (Auto) TH/MM3 Eosinophils # (Auto) TH/MM3 Basophils # (Auto) TH/MM3 CBC Comment AUTO DIFF Sodium Level 138 MEQ/L Potassium Level 3.9 MEQ/L Chloride Level 97 MEQ/L Carbon Dioxide Level 36.0 MEQ/L Anion Gap 5 MEQ/L Blood Urea Nitrogen 16 MG/DL Creatinine 0.82 MG/DL Estimat Glomerular Filtration 70 ML/MIN Rate Random Glucose 89 MG/DL Uric Acid 4.3 MG/DL Calcium Level 8.0 MG/DL Magnesium Level 2.6 MG/DL Aspartate Amino Transf 69 U/L (AST/SGOT) Alanine Aminotransferase 32 U/L (ALT/SGPT) Albumin 1.9 GM/DL Culture Results Microbiology Date/Time Procedure Status Source Growth 03/31/17 18:40 Aerobic Blood Culture - Preliminary Resulted Blood Other NO GROWTH IN 2 DAYS 03/31/17 18:40 Anaerobic Blood Culture - Preliminary Resulted Blood Other NO GROWTH IN 2 DAYS 03/31/17 18:45 Aerobic Blood Culture - Preliminary Resulted Blood Other NO GROWTH IN 2 DAYS 03/31/17 18:45 Anaerobic Blood Culture - Preliminary Resulted Blood Other NO GROWTH IN 2 DAYS Administered Medications Medications (Trade) Dose Ordered Sig/Tylor Route PRN Reason Start Time Stop Time Status Last Admin Dose Admin Sodium Chloride (NS Flush) 2 ml BID IV FLUSH 03/26/17 09:00 04/02/17 09:40 Acetaminophen (Tylenol) 650 mg Q4H PRN PO TEMP > 100.4 03/25/17 23:15 03/30/17 08:26 Ondansetron HCl (Zofran Inj) 4 mg Q6H PRN IVP NAUSEA OR VOMITING 03/25/17 23:15 03/29/17 21:36 Acetaminophen (Tylenol) 650 mg Q6H PRN PO PAIN SCALE 1 TO 2 03/25/17 23:15 03/26/17 08:14 Sennosides (Senokot) 17.2 mg Q12H PRN PO MODERATE - SEVERE CONSTIPATION 03/25/17 23:15 03/31/17 16:59 Famotidine (Pepcid) 10 mg BID PO 03/26/17 09:00 04/02/17 20:54 Temazepam (Restoril) 15 mg HS PRN PO insomnia 03/26/17 00:30 04/02/17 01:23 Allopurinol (Zyloprim) 100 mg BID PO 03/26/17 09:00 04/02/17 20:54 Nystatin (Mycostatin Liq) 5 ml QID SWISH-SWAL 03/26/17 18:00 04/02/17 20:55 Atorvastatin Calcium (Lipitor) 40 mg DAILY PO 03/28/17 09:00 04/02/17 09:40 Lamotrigine (LaMICtal) 50 mg HS PO 03/27/17 21:00 04/02/17 20:53 Levothyroxine Sodium (Synthroid) 100 mcg DAILY@06 PO 03/28/17 06:00 04/03/17 05:15 Acetaminophen/ Hydrocodone Bitart ([place] 10-325 Mg) 1 tab Q4H PRN PO PAIN 7-10 03/28/17 09:15 04/03/17 05:07 Lorazepam (Ativan) 1 mg Q6H PRN PO ANXIETY 03/28/17 09:15 04/03/17 06:52 Granisetron HCl (Kytril) 2 mg Q24H PO 03/30/17 13:00 04/03/17 13:01 03/30/17 13:00 Granisetron HCl 1 mg 1 mg Q24H IV PUSH 03/30/17 13:30 04/03/17 13:31 Hold 03/30/17 17:28 Decitabine 40 mg/ Sodium Chloride 250 ml @ 250 mls/hr Q24H IV 03/30/17 14:00 04/03/17 14:59 Hold 03/30/17 18:35 Meropenem/Sodium Chloride (Merrem Inj/NS Inj) 100 ml @ 200 mls/hr Q8H IV 03/31/17 14:00 04/03/17 05:06 Senna/Docusate Sodium (Ramya-Colace) 1 tab BID PO 03/31/17 21:00 04/02/17 20:53 Magnesium Hydroxide (Milk Of Magnesia Liq) 30 ml Q12H PRN PO SEE LABEL COMMENTS 03/31/17 14:00 04/01/17 08:15 Bisacodyl (Dulcolax Supp) 10 mg DAILY PRN RECTAL SEE LABEL COMMENTS 03/31/17 14:00 04/01/17 08:14 Lactulose (Lactulose Liq) 30 ml DAILY PRN PO SEE LABEL COMMENTS 03/31/17 14:00 04/01/17 08:13 Metoprolol Tartrate (Lopressor Inj) 2.5 mg Q2H PRN IV PUSH tachycardia 04/02/17 20:15 04/03/17 02:51 Metoprolol Tartrate (Lopressor) 25 mg Q6HR PO 04/03/17 06:00 04/03/17 05:07 Objective Remarks GENERAL PHYSICAL APPEARANCE: Ms. Richard is a middle-aged female, she is laying in bed and is in no acute distress. She is able to speak to me in almost full sentences. HEENT: Head is atraumatic, normocephalic, conjunctivae are pale. Sclerae are anicteric, EOMI, PERRLA. ORAL EXAM: She has thrush noted. NECK: No cervical lymphadenopathy. RESPIRATORY: Decreased bibasilar breath sounds. Some crackles noted. CARDIOVASCULAR: Irregular rhythm, tachycardic, distant sounding heart sounds. rubs or gallops. She does have a systolic murmur heard over the aortic area. ABDOMEN: Obese belly, soft and nontender, nondistended. No palpable organ enlargement. Tympanic to percussion. LOWER EXTREMITIES: No pretibial edema or calf tenderness. MUSCULOSKELETAL: Adequate muscle mass, tone and strength. Assessment/Plan Problem List: (1) AML (acute myeloid leukemia) Status: Acute Plan: --Bone marrow biopsy indicates findings consistent with AML. FLT-3, CEPBA and NPM-1 analysis pending to help us prognosticate further, cytogenetics are pending. -- poor candidate for intensive induction remission therapy with anthracycline/ Cytarabine or HiDAC due to her cardiac and pulmonary issues and borderline performance status. --on allopurinol for tumor lysis prophylaxis --03/30/17: Dacogen day 1 started --03/31/17: [place] [facility] [place], tachycardia, hypotension --04/01: hold Dacogen. patient remains hypotensive, tachycardic, hypoxic (2) Atrial fibrillation with RVR Status: Acute Plan: -- A. fib with RVR associated with transient chest pain: --cardiology following --on digoxin Assessment Ms. Richard is a 66-year-old female with a 3-week history of progressive malaise, fatigue and weakness. She reports soreness of the throat and a dry cough, both of which have been chronic. She presented to the emergency department for further workup and management because her symptoms of fatigue progressed to the point where she had difficulty walking from her bedroom to her restroom. She called EMS last night due to the severity of the symptoms. Blood work performed in the emergency department indicates findings consistent with anemia, thrombocytopenia, her WBCs are grossly abnormal with findings of numerous immature cells and blasts in the peripheral circulation. 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 Peripheral smear was formally reviewed by our hematocrit pathologist who assessed the findings to be consistent with a high- grade myeloid malignancy most consistent with acute myeloid leukemia. Plan 1. Acute myeloid leukemia: Recommended systemic therapy with Dacogen and she was not a good candidate for induction systemic therapy with an anthracycline plus cytarabine. Rechallenge with Dacogen today, I would advise infusing Dacogen over 2 hours instead of 1 hour. Her eyes nose will be monitored closely and she will be diuresed to maintain neutral fluid balance. 2. A. fib with RVR: Rate control this morning. On amiodarone. 3. Hypoxic respiratory failure: Likely secondary to pulmonary edema from volume overload. She has been effectively diuresed and is stable from a respiratory standpoint today. 4. On empiric antibiotic therapy with meropenem for suspected pneumonia. She is afebrile at this time and her temperature maximum over the weekend was 100.1 F. Problem Qualifiers (1) AML (acute myeloid leukemia): Qualified Code: C92.00 - Acute myeloid leukemia not having achieved remission Roberto Yarbrough MD Apr 03, 2017 07:44
[2017-04-03] MEDS: RESP: ALBUTEROL 2.5 MG/IPRATROPIUM 0.5 MG NEB (SCH) NEB ×4 (07:54→20:45)
[2017-04-03 08:09] LABS: BLASTS 22 % (0-0); METAMYELOCYTES 3 % (0-1); MYELOCYTES 5 % (0-0); NEUTROPHIL # MANUAL DIFF 14.3 TH/MM3 (1.8-7.7); PLATELET ESTIMATE SMEAR LOW (NORMAL); PLATELET MORPHOLOGY NORMAL (NORMAL); POLYS (SEG NEUTROPHILS) 42 % (16-70); SCAN/DIFF FINAL DIFF MANUAL; WBC DIFF SAMPLE 100
--- NOTE | 2017-04-03 08:21 | HHI.CCPN ---
Subjective Remarks/Hospital Course This is a 66-year-old female, that presented to the hospital with shortness of breath productive cough and generalized fatigue upon admission. Subsequent laboratory and imaging studies reveal a pneumonia. 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 Since admission the patient was placed on empiric antibiotic Azactam. Blood culture negative growth today, urine culture showed 50-100,000 of gram-positive chance. Hematology oncology initiated Dacogen first dose yesterday. The patient was noted to have a cardiac rhythm A. fib RVR cardiology was consulted, Dr. Chang the patient was placed on amiodarone 400 mg twice a day received a dose of digoxin last evening. The patient early this a.m., had A. fib RVR with dyspnea and hypoxemia with O2 sat duration in the 80s. Critical care medicine was consulted. Upon meeting and evaluating the patient the patient was noted to be in a sinus tachycardia with a heart rate [id number], with an O2 saturation on nonrebreather of 91-92%. The patient received 20 mg IV Lasix upon arrival, with subsequent diuresis of approximately 1 L, and decreased in FiO2 requirements. The patient was noted to have a significant leukocytosis, with 1 % bands, pro-calcitonin level was drawn ID was consulted. Subjective: 04/01: The patient required increasing FiO2 requirements overnight. The patient currently on nonrebreather mask O2 saturation 94%. Stat chest x-ray obtain results pending, stat ABG results pending. Discussion with patient and son regarding the probable likelihood of intubation this a.m.. All questions answered. The patient remains nothing by mouth at this time. ID was consulted yesterday regarding the leukocytosis and elevation in temperature, following recommendations. 04/02: No acute events overnight. Patient's oxygen requirements remain at 4 L/m nasal cannula. Palliative care team in extensive discussion with family, patient CODE STATUS been made DNR/DNI. Heart healthy diet has been resumed. 04/03: Overnight the patient, had increasing FiO2 requirements required partial nonrebreather mask, and also received 3 doses of Ativan. The patient became tachycardic and received metoprolol IV subsequently at 2 AM went into A. fib RVR and received 15 mg Cardizem IV push. The patient currently telemetry revealing ST 113. Thomson reinserted with strict TARAN hourly monitoring patient to receive Dacogen today. Objective Vital Signs Date Time Temp Pulse Resp B/P Pulse Ox O2 Delivery O2 Flow Rate FiO2 04/03/17 06:00 117 04/03/17 04:00 97.4 9 98 04/02/17 19:44 Partial Rebreather 12.00 03/31/17 20:48 50 Intake and Output 04/02/17 04/02/17 04/03/17 08:00 16:00 00:00 Intake Total 340 ml 983 ml 480 ml Output Total 850 ml 400 ml 1175 ml Balance -510 ml 583 ml -695 ml Result Diagram: 04/03/17 0559 04/03/17 0559 Imaging Last Impressions Chest X-Ray 04/02/17 0600 Signed Impressions: Service Date/Time: Sunday, April 02, 2017 03:28 - CONCLUSION: No significant change has occurred. Antwan Jensen MD Bone Biopsy CT 03/26/17 0000 Signed Impressions: Service Date/Time: Sunday, March 26, 2017 14:48 - CONCLUSION: 1. Uncomplicated CT guided bone marrow aspirate. 2. Uncomplicated CT guided bone marrow biopsy. Raoul Jeffries MD Lumbar Spine CT [id number]/[id number] Signed Impressions: Service Date/Time: Sunday, March 26, 2017 01:12 - CONCLUSION: 1. Degenerative disc changes greatest at the L4-5 and L5-S1 levels with broad-based disc osteophyte complexes. There is lateral recess stenosis at the L5-S1 level. 2. Mild retrolisthesis of L5 on S1 with degenerative disc change and broad-based disc osteophyte complex. 3. Narrowing of the neuroforamina bilaterally at the L4-5 and L5-S1 levels. 4. Degenerative disc change. Balaji Solorio MD CT Angiography 03/25/179 Signed Impressions: Service Date/Time: Sunday, March 26, 2017 01:09 - CONCLUSION: 1. Mild consolidation along the left fissure and lower lobe. This could indicate early pneumonia. 2. No evidence of pulmonary embolism. Balaji Solorio MD Last Impressions Chest X-Ray 03/31/17 0000 Signed Impressions: Service Date/Time: Friday, March 31, 2017 09:53 - CONCLUSION: New left basilar opacity with features characteristic of pleural effusion with associated volume loss and/or airspace consolidation. Raoul Jeffries MD Bone Biopsy CT 03/26/17 0000 Signed Impressions: Service Date/Time: Sunday, March 26, 2017 14:48 - CONCLUSION: 1. Uncomplicated CT guided bone marrow aspirate. 2. Uncomplicated CT guided bone marrow biopsy. Raoul Jeffries MD Lumbar Spine CT [id number]/25/[id number] Signed Impressions: Service Date/Time: Sunday, March 26, 2017 01:12 - CONCLUSION: 1. Degenerative disc changes greatest at the L4-5 and L5-S1 levels with broad-based disc osteophyte complexes. There is lateral recess stenosis at the L5-S1 level. 2. Mild retrolisthesis of L5 on S1 with degenerative disc change and broad-based disc osteophyte complex. 3. Narrowing of the neuroforamina bilaterally at the L4-5 and L5-S1 levels. 4. Degenerative disc change. Balaji Solorio MD CT Angiography [id number]/25/[id number] Signed Impressions: Service Date/Time: Sunday, March 26, 2017 01:09 - CONCLUSION: 1. Mild consolidation along the left fissure and lower lobe. This could indicate early pneumonia. 2. No evidence of pulmonary embolism. Balaji Solorio MD Objective Remarks BP 139/81 Pulse 108-113 O2 sat duration 94% on Partial NRB RR 24 GENERAL: Obese female in no respiratory distress on NRb SKIN: Warm and dry. HEAD: Atraumatic. Normocephalic. EYES: Pupils equal and round. No scleral icterus. No injection or drainage. ENT: No nasal bleeding or discharge. Mucous membranes pink and moist. NECK: Trachea midline. No JVD. CARDIOVASCULAR: Normal rate, regular rhythm. Telemetry sinus rhythm RESPIRATORY: No accessory muscle use. Clear to auscultation. Breath sounds equal bilaterally. GASTROINTESTINAL: Abdomen soft, protuberant ,non-tender, nondistended. No guarding. MUSCULOSKELETAL: Extremities without clubbing, cyanosis, or edema. No obvious deformities. NEUROLOGICAL: Awake and alert. RASS 0. GCS 15 No gross focal/sensory deficits. Follows commands in all 4 extremities. Procedures 04/03 Dacogen therapy Urinary Catheter: Yes Thomson insert reason: ICU Pt Getting Diuretics Date of Insertion: Apr 03, 2017 A/P Assessment and Plan Assessment Hypotension was likely secondary to sepsis Sepsis A. fib RVR with conversion to Sinus tachycardia Respiratory Insufficiency Pneumonia-left lower lobe (left basilar opacity) Persistent leukocytosis Bandemia Pleural effusions Acute myeloid leukemia Anemia Thrombocytopenia CKD stage 3 H/O chronic HTN H/O cerebral aneurysm H/O CVA with residual weakness Hypothyroidism Mild protein calorie malnutrition Morbid obesity Chronic pain Constipation-resolved Persistent leukocytosis Hypophosphatemia Plan Neurologic: -GCS 15, appropriately responsive -Maintain sleep hygiene, avoid ICU delirium, maintains stimulation during the day - Restoril 15 mg at bedtime when necessary for insomnia, avoid multiple disruptions at night -[place] 10/325 PRN -Discontinue Ativan Respiratory: -Maintain O2 sat greater than 92% -Scheduled continue bronchodilators 4 times a day scheduled -Wean O2 as tolerated -Maintain head of bed 30 -04/02 CXR-left basilar opacity, pleural effusion-no change -Lasix increased to twice a day Cardiovascular: -Metoprolol 2.5 mg IV every 6 hours when necessary for heart rate greater than 100bpm -Cardiology following- Dr. Chang -Discontinue amiodarone 400 mg twice a day, atorvastatin. Management per Cardiology Dr. Kwong -Discontinue Terazosin in the setting of hypotension -Metoprolol frequency increased, to 6 hours Renal: - Maintain thomson- patient receiving Dacogen therapy strict hourly I&O's indicated -- Strict I/Os FEN/GI: -Monitor electrolytes -Electrolyte replacement per ICU protocol -Heart healthy diet -Bowel regimen Heme/ID: -Hematology oncology following Dr. Yarbrough -Allopurinol continued per hematology oncology-prophylaxis for tumor lysis syndrome -Granisetron scheduled, ondansetron PRN for nausea -Dacogen dosing per Hematology-Oncology scheduled for 04/03 -PLT count 85, follow-up hematology oncology will transfuse for platelet count less than 50,000 Endocrine: -Levothyroxine 100 mcgs/day -Glucose monitoring per ICU protocol -- SSI Prophylaxis: GI Prophylaxis Pepcid DVT Prophylaxis -- SCDs No pharmacological DVT prophylaxis in the setting of thrombocytopenia defer to HematologyOncology Lines: PIV x 2 Dispo: Level [address] Yarbrough, EMS DIRECTOR and patient. Patient CODE STATUS changed to intubation only after extensive discussion with palliative care and other family members last night. Patient's pulmonary status continues to be tenuous possibility of intubation. Physician Sita Hu MD Apr 03, 2017 08:21
--- NOTE | 2017-04-03 08:24 | PD.CARD.PN ---
Subjective Subjective Remarks Denies CP, dyspnea, palpitations, dizziness. Objective Medications Item Value Date Time Digoxin 0.25 mg 04/03/17 0900 (Lanoxin) DAILY/PO 04/03/17 0730 Furosemide 40 mg 04/03/17 0900 (Lasix Inj) BID/IV PUSH Metoprolol 25 mg 04/03/17 0600 Tartrate Q6HR/PO 04/03/17 0507 (Lopressor) Metoprolol 2.5 mg 04/02/17 2015 Tartrate Q2H PRN/IV PUSH 04/03/17 0251 (Lopressor Inj) Vital Signs / I&O Vital Signs Date Time Temp Pulse Resp B/P Pulse Ox O2 Delivery O2 Flow Rate FiO2 04/03/17 08:14 92 Nasal Cannula 6.00 04/03/17 06:00 117 04/03/17 04:00 97.4 118 9 98 04/03/17 04:00 118 04/03/17 02:28 14 04/03/17 02:00 125 04/03/17 00:00 80 04/03/17 00:00 97.8 80 14 109/58 99 04/02/17 22:00 83 04/02/17 20:00 140 04/02/17 20:00 98.2 140 19 129/73 97 04/02/17 19:44 96 Partial Rebreather 12.00 04/02/17 18:30 90 04/02/17 18:00 88 04/02/17 17:30 92 04/02/17 17:00 97 04/02/17 16:34 98 04/02/17 16:34 98 25 142/80 88 04/02/17 16:00 90 04/02/17 16:00 98.3 90 15 141/65 94 04/02/17 15:30 82 04/02/17 15:30 82 14 125/58 93 04/02/17 15:00 91 04/02/17 15:00 91 28 138/74 89 04/02/17 14:00 78 9 110/56 94 04/02/17 14:00 78 04/02/17 13:30 78 10 113/55 94 04/02/17 13:30 78 04/02/17 13:00 79 04/02/17 13:00 79 10 102/58 94 04/02/17 12:30 74 12 119/57 99 04/02/17 12:30 74 04/02/17 12:00 81 04/02/17 12:00 98.6 81 15 138/63 91 04/02/17 11:30 82 13 116/56 91 04/02/17 11:30 82 04/02/17 11:00 82 04/02/17 11:00 82 22 119/68 95 04/02/17 10:30 87 04/02/17 10:30 87 18 139/65 95 04/02/17 10:00 90 04/02/17 10:00 90 23 134/66 92 04/02/17 09:38 128 22 128/77 91 04/02/17 09:00 127 23 119/67 84 04/02/17 09:00 127 04/02/17 08:30 79 04/02/17 08:30 79 17 115/67 100 I/O 04/02/17 04/02/17 04/02/17 04/03/17 04/03/17 04/03/17 06:59 14:59 22:59 06:59 14:59 22:59 Intake Total 340 ml 983 ml 480 ml 100 ml Output Total 850 ml 400 ml 1175 ml Balance -510 ml 583 ml -695 ml 100 ml Intake Oral 720 ml 480 ml IV Total 340 ml 263 ml 100 ml Output Urine Total 850 ml 400 ml 1175 ml # Voids 7 3 # Bowel Movements 0 0 0 0 Physical Exam GENERAL: Well developed, well nourished. No acute distress. HEENT: Jugular venous pressure difficult to assess. CHEST: Lungs clear to auscultation anteriorly. CARDIAC: Tachycardic regular rhythm without S3, S4, or murmur. ABDOMEN: Soft, nontender, no hepatosplenomegaly. Bowel sounds present. EXTREMITIES: No clubbing, cyanosis, or edema. Laboratory Laboratory Tests Test 04/03/17 05:59 White Blood Count 28.5 TH/MM3 Red Blood Count 2.67 MIL/MM3 Hemoglobin 7.8 GM/DL Hematocrit 24.0 % Mean Corpuscular Volume 89.9 FL Mean Corpuscular Hemoglobin 29.3 PG Mean Corpuscular Hemoglobin 32.6 % Concent Red Cell Distribution Width 18.2 % Platelet Count 85 TH/MM3 Mean Platelet Volume 8.3 FL Neutrophils (%) (Auto) % Lymphocytes (%) (Auto) % Monocytes (%) (Auto) % Eosinophils (%) (Auto) % Basophils (%) (Auto) % Neutrophils # (Auto) TH/MM3 Lymphocytes # (Auto) TH/MM3 Monocytes # (Auto) TH/MM3 Eosinophils # (Auto) TH/MM3 Basophils # (Auto) TH/MM3 CBC Comment AUTO DIFF Differential Total Cells 100 Counted Neutrophils % (Manual) 42 % Lymphocytes % 22 % Monocytes % 6 % Neutrophils # (Manual) 14.3 TH/MM3 Metamyelocytes 3 % Myelocytes 5 % Differential Comment FINAL DIFF MANUAL Blastocytes 22 % Platelet Estimate LOW Platelet Morphology Comment NORMAL Sodium Level 138 MEQ/L Potassium Level 3.9 MEQ/L Chloride Level 97 MEQ/L Carbon Dioxide Level 36.0 MEQ/L Anion Gap 5 MEQ/L Blood Urea Nitrogen 16 MG/DL Creatinine 0.82 MG/DL Estimat Glomerular Filtration 70 ML/MIN Rate Random Glucose 89 MG/DL Uric Acid 4.3 MG/DL Calcium Level 8.0 MG/DL Phosphorus Level 2.4 MG/DL Magnesium Level 2.6 MG/DL Total Bilirubin 0.4 MG/DL Aspartate Amino Transf 69 U/L (AST/SGOT) Alanine Aminotransferase 32 U/L (ALT/SGPT) Alkaline Phosphatase 106 U/L Lactate Dehydrogenase 748 U/L Total Protein 5.6 GM/DL Albumin 1.9 GM/DL Digoxin Level 1.7 NG/ML Assessment and Plan Problem List: (1) Paroxysmal atrial fibrillation Assessment and Plan: Remains in sinus rhythm on oral digoxin and metoprolol. Rec continue same cardiac regimen. (2) Hypertension Assessment and Plan: Stable. Normotensive. (3) Chest pain Assessment and Plan: No further CP. Rec conservative evaluation, management. (4) AML (acute myeloid leukemia) Code Status alternative code Discussed Condition With patient Problem Qualifiers (1) Hypertension: Qualified Code: I10 - Essential hypertension (2) Chest pain: Qualified Code: R07.9 - Chest pain, unspecified type (3) AML (acute myeloid leukemia): Qualified Code: C92.00 - Acute myeloid leukemia not having achieved remission Alfie Jefferson MD Apr 03, 2017 08:24
[2017-04-03] MEDS ORDERED: POTASSIUM PHOSPHATE MONOBASIC 500 MG TAB PO/TUBE PRN (08:30)
[2017-04-03] MEDS ORDERED: POTASSIUM CHLOR 20 MEQ PREMIX 100 ML IV PRN ×2 (08:30)
[2017-04-03] MEDS ORDERED: MAGNESIUM SULFATE INJ 4 GM in SODIUM CHLORIDE 0.9% INJ 92 ML IV PRN (08:30)
[2017-04-03] MEDS ORDERED: POTASSIUM CHLORIDE 25 MEQ EFFERVESCENT TAB PO PRN (08:30)
[2017-04-03] MEDS ORDERED: POTASSIUM CHLOR 40 MEQ PREMIX 100 ML IV PRN ×2 (08:30)
[2017-04-03] MEDS ORDERED: POTASSIUM PHOSPHATE INJ 30 MMOL in SODIUM CHLOR 0.9% 250 ML INJ 250 ML IV PRN (08:30)
[2017-04-03] MEDS ORDERED: MAGNESIUM OXIDE 400 MG TAB PO PRN (08:30)
[2017-04-03] MEDS ORDERED: SODIUM PHOSPHATE INJ 30 MMOL in SODIUM CHLOR 0.9% 250 ML INJ 240 ML IV PRN (08:30)
[2017-04-03] MEDS ORDERED: MAGNESIUM SULFATE INJ 2 GM in SODIUM CHLORIDE 0.9% INJ 96 ML IV PRN (08:30)
[2017-04-03] MEDS: FUROSEMIDE 40 MG/4 ML VIAL IV PUSH SCH ×2 (09:00→21:33)
[2017-04-03] MEDS ORDERED: FUROSEMIDE 40 MG/4 ML VIAL IV PUSH SCH (09:00)
[2017-04-03] MEDS: POTASSIUM PHOSPHATE MONOBASIC 500 MG TAB PO PRN ×2 (09:25→14:23)
--- NOTE | 2017-04-03 10:57 | MB ---
cc: CANDIE MORA DATE OF CONSULTATION 04/02/[address] Duffy REASON FOR CONSULTATION Pulmonary management PRESENT ILLNESS Ms. Richard is a 66-year-old [place] female who has a history of intracerebral aneurysm. She follows with Dr. Logan. She also has a history of partial seizure, history of hyperthyroidism, and hypertension. The patient was not feeling well since mid January. She has been feeling very weak, lethargic with loss of appetite. Did not have fever or chills. No night sweats. The patient was being followed by Dr. Leon and she was given an antibiotic, but did not get better. Because of worsening of the symptoms, she came to the hospital. She had a CT of the chest done which shows left lung infiltrate and atelectasis. She had a bone marrow biopsy done which shows mild leukemia. She took one chemotherapy. She developed atrial fibrillation and a rapid ventricular rate. She weak, feels weak and tired. Denies any chest pain. No fever or chills. PAST MEDICAL HISTORY The past medical history significant for a history of: 1. Pancreatitis 2. Hypertension 3. Hyperthyroidism 4. History of cerebral artery aneurysm. 5. History of partial seizure. MEDICATIONS She is currently takin. Lasix 40 mg a day 2. Metoprolol 5.5 mg g85-palc 3. Digoxin 0.125 mg a day 4. Neurontin one gram q8-hour 5. Albuterol/Atrovent nebulizer treatment 6. Kytril 2 mg q. 24-hour 7. Compazine 5 mg p.r.n. 8. Lorazepam p.r.n. 9. Levothyroxine 100 mcg a day 10. Lamictal 50 mg at night time 11. Nystatin swish and swallow 12. Famotidine 10 mg a day 13. Allopurinol 1 mg twice a day 14. Temazepam 50 mg at nighttime 15. Robitussin DM cough syrup ALLERGIES SHE IS ALLERGIC TO PENICILLIN. SOCIAL HISTORY She is . She has history of smoking which she quit five years ago. No alcohol abuse. She used to work at [employer] FAMILY HISTORY She has one daughter and one son. The patient lives alone. REVIEW OF SYSTEMS Denies any weight loss. No headache or dizziness. No nausea or vomiting. She has partial seizures. PHYSICAL EXAM This is a well-nourished, well-nourished female mildly short of breath not in acute distress. VITAL SIGNS: Blood pressure 142/80, heart rate 128, respirations 16, temperature 98.3. HEENT: Pupils are equal and reactive to light. Oral mucosa, nasal mucosa normal. NECK: Supple. JVP not raised. CHEST: Equal bilaterally. Few scattered rales. CARDIOVASCULAR: S1 and S2 irregular. ABDOMEN: Benign. EXTREMITIES: No edema. IMPRESSION 1. Left lung infiltrate 2. Myeloid leukemia 3. Partial seizure 4. History of cerebral aneurysm. 5. Paroxysmal atrial fibrillation 6. Hypertension 7. History of chronic pancreatitis. PLAN I have discussed with the patient and her daughter at the bedside. We will give her aerosol treatment. Continue Meropenem antibiotic, supplement oxygen. She is being diuresed. Monitor her electrolytes. She is on Lamictal and Kytril. Further recommendations depend upon the course in the hospital. Thank you, Dr. Duffy, for this consult. MD ALEENA San/LANIE /6:44 PM /10:41 AM
[2017-04-03] MEDS: GRANISETRON HCL 1 MG TAB PO SCH (13:00)
[2017-04-03] MEDS ORDERED: GRANISETRON HCL 1 MG/ML VIAL IV PUSH ONE (14:00)
[2017-04-03] MEDS ORDERED: GRANISETRON HCL 1 MG/ML VIAL IV PUSH SCH (14:00)
[2017-04-03] MEDS ORDERED: GRANISETRON HCL 1 MG TAB PO ONE (14:00)
[2017-04-03] MEDS ORDERED: GRANISETRON HCL 1 MG TAB PO SCH (14:00)
[2017-04-03] MEDS ORDERED: DECITABINE IV ONE (15:00)
[2017-04-03] MEDS ORDERED: SODIUM CHLOR 0.9% IV ONE (15:00)
--- NOTE | 2017-04-03 18:25 | HHI.PR ---
Subjective Interval History Alert, oriented, was short of breath last night, heart rate was 110, nonrebreather was used, Review of Systems Constitutional Constitutional Remarks 10 systems reviewed and otherwise negative Vitals/Results Intake & Output 04/02/17 04/02/17 04/03/17 15:00 23:00 07:00 Intake Total 983 ml 480 ml 100 ml Output Total 400 ml 1175 ml Balance 583 ml -695 ml 100 ml Intake Oral 720 ml 480 ml IV Total 263 ml 100 ml Output Urine Total 400 ml 1175 ml # Voids 7 3 # Bowel Movements 0 0 0 Vital Signs Vital Signs Date Time Temp Pulse Resp B/P Pulse Ox O2 Delivery O2 Flow Rate FiO2 04/03/17 18:15 98.8 85 103/55 99 04/03/17 17:30 89 04/03/17 17:30 89 28 91/52 97 04/03/17 17:00 84 04/03/17 17:00 84 15 103/68 99 04/03/17 16:33 126 04/03/17 16:33 126 18 95/52 100 04/03/17 16:00 80 04/03/17 16:00 99.5 80 23 103/51 91 04/03/17 15:30 79 15 121/61 98 04/03/17 15:00 74 17 117/56 100 04/03/17 15:00 74 04/03/17 14:40 35 04/03/17 14:30 82 04/03/17 14:30 82 20 121/59 87 04/03/17 14:00 81 16 105/58 98 04/03/17 14:00 81 04/03/17 13:30 84 16 106/52 98 04/03/17 13:30 84 04/03/17 13:00 84 04/03/17 13:00 84 13 102/54 97 04/03/17 12:30 91 14 121/58 96 04/03/17 12:30 91 04/03/17 12:00 86 04/03/17 12:00 86 Partial Non-Rebreather 15.00 04/03/17 12:00 99.5 86 19 94/49 92 04/03/17 11:51 96 Partial Rebreather 15.00 04/03/17 11:38 127 04/03/17 11:38 127 18 99/56 90 04/03/17 11:30 125 14 94/53 93 04/03/17 11:30 125 04/03/17 11:00 119 04/03/17 11:00 119 14 85/53 91 04/03/17 10:30 117 18 91/50 93 04/03/17 10:30 117 04/03/17 10:00 123 04/03/17 10:00 123 13 100/62 91 04/03/17 09:30 127 04/03/17 09:30 127 20 121/63 87 04/03/17 09:00 118 04/03/17 09:00 118 11 96/56 93 04/03/17 08:30 119 04/03/17 08:30 119 10 109/63 91 04/03/17 08:14 92 Nasal Cannula 6.00 04/03/17 08:00 111 04/03/17 08:00 98.2 111 11 120/56 97 04/03/17 07:31 109 04/03/17 07:30 95 Nasal Cannula 6.00 04/03/17 07:00 106 04/03/17 06:00 117 04/03/17 04:00 97.4 118 9 98 04/03/17 04:00 118 04/03/17 02:28 14 04/03/17 02:00 125 04/03/17 00:00 80 04/03/17 00:00 97.8 80 14 109/58 99 04/02/17 22:00 83 04/02/17 20:00 140 04/02/17 20:00 98.2 140 19 129/73 97 04/02/17 19:44 96 Partial Rebreather 12.00 04/02/17 18:30 90 CBC/BMP: 04/03/17 0559 04/03/17 0559 Lab Results Laboratory Tests Test 04/03/17 04/03/17 05:59 12:16 White Blood Count 28.5 TH/MM3 Red Blood Count 2.67 MIL/MM3 Hemoglobin 7.8 GM/DL Hematocrit 24.0 % Mean Corpuscular Volume 89.9 FL Mean Corpuscular Hemoglobin 29.3 PG Mean Corpuscular Hemoglobin 32.6 % Concent Red Cell Distribution Width 18.2 % Platelet Count 85 TH/MM3 Mean Platelet Volume 8.3 FL Neutrophils (%) (Auto) % Lymphocytes (%) (Auto) % Monocytes (%) (Auto) % Eosinophils (%) (Auto) % Basophils (%) (Auto) % Neutrophils # (Auto) TH/MM3 Lymphocytes # (Auto) TH/MM3 Monocytes # (Auto) TH/MM3 Eosinophils # (Auto) TH/MM3 Basophils # (Auto) TH/MM3 CBC Comment AUTO DIFF Differential Total Cells 100 Counted Neutrophils % (Manual) 42 % Lymphocytes % 22 % Monocytes % 6 % Neutrophils # (Manual) 14.3 TH/MM3 Metamyelocytes 3 % Myelocytes 5 % Differential Comment FINAL DIFF MANUAL Blastocytes 22 % Platelet Estimate LOW Platelet Morphology Comment NORMAL Sodium Level 138 MEQ/L Potassium Level 3.9 MEQ/L Chloride Level 97 MEQ/L Carbon Dioxide Level 36.0 MEQ/L Anion Gap 5 MEQ/L Blood Urea Nitrogen 16 MG/DL Creatinine 0.82 MG/DL Estimat Glomerular Filtration 70 ML/MIN Rate Random Glucose 89 MG/DL Uric Acid 4.3 MG/DL Calcium Level 8.0 MG/DL Phosphorus Level 2.4 MG/DL 2.9 MG/DL Magnesium Level 2.6 MG/DL Total Bilirubin 0.4 MG/DL Aspartate Amino Transf 69 U/L (AST/SGOT) Alanine Aminotransferase 32 U/L (ALT/SGPT) Alkaline Phosphatase 106 U/L Lactate Dehydrogenase 748 U/L Total Protein 5.6 GM/DL Albumin 1.9 GM/DL Digoxin Level 1.7 NG/ML Physical Exam General General Appearance: Well Developed, Well Nourished, No Acute Distress, Anxious , Obese Eyes Eye Exam: Pupils Equal, Pupils Reactive Ears & Nose Ears & Nose Exam: Nasal Mucosa [place] Throat Throat Exam: Oral Mucosa [place] & Moist Neck Neck Exam: Neck Supple, Trachea Midline Pulmonary Resp Exam: Breath Sounds Equal, Crackles, Decreased Bases Cardiology CV Exam: Regular, Normal Sinus Rhythm, Good Perfusion Gastrointestinal/Abdomen GI Exam: Soft, Non-Tender, Bowel Sounds Present, Non-Distended Musculoskeletal MS Exam: Normal Tone Integumentary Skin Exam: Warm, Dry Extremeties Extremities Exam: No Edema, Pedal Pulses Palpable Neurologic Neuro Exam: Alert, Awake, Oriented, Speech Clear, Moving All Extremities, No Focal Deficits Psychiatric Psych Exam: Appropriate Responses VTE Prophylaxis VTE Prophylaxis Device: SCDs Assessment/Plan Problem List: (1) Sepsis (2) Anemia (3) Thrombocytopenia (4) Elevated white blood cell count (5) Pneumonia (6) CKD (chronic kidney disease) stage 3, GFR 30-59 ml/min (7) AML (acute myeloid leukemia) (8) Low blood pressure (9) Tachycardia (10) Hx TIA/stroke w/o resid (11) hx cerebral aneurysm (12) Atrial fibrillation with RVR Assessment/Plan Assessment Tachycardia Sepsis Pneumonia Hypoxemia Anemia Thrombocytopenia Obesity Acute myeloid leukemia, Received Dacogen Acute kidney injury, improved Paroxysmal atrial tachycardia/atrial fibrillation History of TIA, chronic kidney disease, constipation, back pain, penicillin allergy, Management Cardizem 30 mg by mouth 4 times a day Continue Lopressor 2-D echo Continue antibiotics, currently on meropenem, infectious disease following Monitor CBC, hematology oncology following when necessary IV Lopressor for sustained heart rate above 120 Cardiology following Supplemental oxygen Follow renal function Follow electrolytes and replace as needed Possible need for transfusion This will be deferred to hematology oncology Discussed with patient in detail Discussed with nurse 35 minutes Problem Qualifiers (1) Sepsis: Qualified Code: A41.9 - Sepsis, due to unspecified organism (2) Anemia: Qualified Code: D64.9 - Anemia, unspecified type (3) Elevated white blood cell count: Qualified Code: D72.829 - Leukocytosis, unspecified type (4) Pneumonia: Qualified Code: J18.1 - Pneumonia of left lower lobe due to infectious organism (5) AML (acute myeloid leukemia): Qualified Code: C92.00 - Acute myeloid leukemia not having achieved remission (6) Low blood pressure: Qualified Code: I95.9 - Hypotension, unspecified hypotension type Qamar Paniagua MD Apr 03, 2017 18:25
--- NOTE | 2017-04-03 19:11 | HHI.PR ---
Subjective Remarks 66 YO [place] female with Resp insuff, Myeloid leukemia Receving Chemo Desaturates Now. on PRB Feels comfortable Objective Vital Signs Vital Signs Date Time Temp Pulse Resp B/P Pulse Ox O2 Delivery O2 Flow Rate FiO2 04/03/17 18:45 83 04/03/17 18:30 84 04/03/17 18:15 84 04/03/17 18:15 98.8 85 103/55 99 04/03/17 18:00 83 04/03/17 17:30 89 04/03/17 17:30 89 28 91/52 97 04/03/17 17:00 84 04/03/17 17:00 84 15 103/68 99 04/03/17 16:33 126 04/03/17 16:33 126 18 95/52 100 04/03/17 16:00 80 04/03/17 16:00 99.5 80 23 103/51 91 04/03/17 15:30 79 15 121/61 98 04/03/17 15:00 74 17 117/56 100 04/03/17 15:00 74 04/03/17 14:40 35 04/03/17 14:30 82 04/03/17 14:30 82 20 121/59 87 04/03/17 14:00 81 16 105/58 98 04/03/17 14:00 81 04/03/17 13:30 84 16 106/52 98 04/03/17 13:30 84 04/03/17 13:00 84 04/03/17 13:00 84 13 102/54 97 04/03/17 12:30 91 14 121/58 96 04/03/17 12:30 91 04/03/17 12:00 86 04/03/17 12:00 86 Partial Non-Rebreather 15.00 04/03/17 12:00 99.5 86 19 94/49 92 04/03/17 11:51 96 Partial Rebreather 15.00 04/03/17 11:38 127 04/03/17 11:38 127 18 99/56 90 04/03/17 11:30 125 14 94/53 93 04/03/17 11:30 125 04/03/17 11:00 119 04/03/17 11:00 119 14 85/53 91 04/03/17 10:30 117 18 91/50 93 04/03/17 10:30 117 8/8/17 10:00 123 04/03/17 10:00 123 13 100/62 91 04/03/17 09:30 127 04/03/17 09:30 127 20 121/63 87 04/03/17 09:00 118 04/03/17 09:00 118 11 96/56 93 04/03/17 08:30 119 04/03/17 08:30 119 10 109/63 91 04/03/17 08:14 92 Nasal Cannula 6.00 04/03/17 08:00 111 04/03/17 08:00 98.2 111 11 120/56 97 04/03/17 07:31 109 04/03/17 07:30 95 Nasal Cannula 6.00 04/03/17 07:00 106 04/03/17 06:00 117 04/03/17 04:00 97.4 118 9 98 04/03/17 04:00 118 04/03/17 02:28 14 04/03/17 02:00 125 04/03/17 00:00 80 04/03/17 00:00 97.8 80 14 109/58 99 04/02/17 22:00 83 04/02/17 20:00 140 04/02/17 20:00 98.2 140 19 129/73 97 04/02/17 19:44 96 Partial Rebreather 12.00 I/O 04/02/17 04/02/17 04/02/17 04/03/17 04/03/17 04/03/17 07:00 15:00 23:00 07:00 15:00 23:00 Intake Total 340 ml 983 ml 480 ml 100 ml 540 ml 96 ml Output Total 850 ml 400 ml 1175 ml 1700 ml Balance -510 ml 583 ml -695 ml 100 ml -1160 ml 96 ml Intake Oral 720 ml 480 ml 540 ml IV Total 340 ml 263 ml 100 ml 0 ml 96 ml Output Urine Total 850 ml 400 ml 1175 ml 1700 ml # Voids 7 3 # Bowel Movements 0 0 0 0 Result Diagram: 04/03/1759 04/03/17558 Objective Remarks GENERAL: WBWn Female, mild sob SKIN: Warm and dry. HEAD: Normocephalic. EYES: No scleral icterus. No injection or drainage. NECK: Supple, trachea midline. No JVD or lymphadenopathy. CARDIOVASCULAR: Regular rate and rhythm without murmurs, gallops, or rubs. RESPIRATORY: Breath sounds equal bilaterally. No accessory muscle use. GASTROINTESTINAL: Abdomen soft, non-tender, nondistended. MUSCULOSKELETAL: No cyanosis, or edema. BACK: Nontender without obvious deformity. No CVA tenderness. A/P Assessment and Plan Resp Insuff Hypoxia Left basal infilt myeloid Leukemia HTN Partial sz PLAN: Cont PRB Wean 02 to keep sat >90% Aerosol nebs Chemo per Dr.Latif KRUEGER pt and Family at BS. Jorge Thibodeaux MD Apr 03, 2017 19:11
[2017-04-03] MEDS: lamoTRIgine 25 MG TAB PO SCH (21:31)
[2017-04-03] MEDS: TEMAZEPAM 15 MG CAP PO PRN (21:33)
[2017-04-04] VITALS (16 sets, daily range): BP systolic 103–136; BP diastolic 53–68; PULSE 74–126; RESP 14–33; TEMP 98.3–98.4; O2SAT 86–100
[2017-04-04] MEDS: ACETAMINOPHEN/HYDROcodone 325 MG/10 MG TAB PO PRN ×6 (00:27→21:38)
[2017-04-04] MEDS: MEROPENEM INJ 1,000 MG in SODIUM CHLORIDE 0.9% INJ 100 ML IV SCH ×3 (05:39→22:00)
[2017-04-04] MEDS: LEVOTHYROXINE SODIUM 100 MCG TAB PO SCH (05:40)
[2017-04-04] MEDS: METOPROLOL TARTRATE 25 MG TAB PO SCH ×2 (05:40)
[2017-04-04] MEDS: INSULIN ASPART SUPPLEMENTAL SCALE SQ SCH ×4 (05:41→21:00)
[2017-04-04 05:49] LABS: HEMATOCRIT 23.6 % (35.0-46.0); MEAN CELL VOLUME 89.6 FL (80.0-100.0); MEAN CORPUSCULAR HEMOGLOBIN 30.1 PG (27.0-34.0); MEAN CORPUSCULAR HGB CONC 33.6 % (32.0-36.0); PLATELET COUNT 88 TH/MM3 (150-450); RED BLOOD COUNT 2.63 MIL/MM3 (4.00-5.30); RED CELL DISTRIBUTION WIDTH 17.9 % (11.6-17.2); WHITE BLOOD COUNT 24.5 TH/MM3 (4.0-11.0)
[2017-04-04 05:55] LABS: REVIEW FLAG FINAL
--- NOTE | 2017-04-04 05:55 | RADRPT ---
EXAM DATE/TIME: 04/04/2017 04:43 [facility] COMPARISON: CHEST SINGLE AP, April 02, 2017, 3:28. INDICATIONS : Short of breath. MEDICAL HISTORY : Cerebrovascular disease. Hypertension Seizures, Brain aneurysm SURGICAL HISTORY : None. ENCOUNTER: Subsequent ACUITY: 3 days PAIN SCORE: 0/10 LOCATION: Bilateral chest FINDINGS: There is atelectasis in the left midlung, with slight improved aeration of right lung base, left effu manjeet and left lower lobe consolidation. I do not see a pneumothorax. Cardiomegaly. CONCLUSION: Slight improved aeration right lower lobe. Antwan Jensen MD on April 04, 2017 at 5:53 Board Certified Radiologist. This report was verified electronically.
[2017-04-04 06:19] LABS: BICARBONATE 36.6 MEQ/L (21.0-32.0); MAGNESIUM 2.3 MG/DL (1.5-2.5); POTASSIUM 4.1 MEQ/L (3.5-5.1)
[2017-04-04 06:33] LABS: DIGOXIN 1.6 NG/ML (0.8-2.0)
[2017-04-04] MEDS: SODIUM CHLORIDE 0.9% FLUSH 10 ML FLUSH IV FLUSH SCH ×2 (08:09→21:39)
--- NOTE | 2017-04-04 08:09 | PD.ONC.PN ---
Subjective Subjective Remarks Patient seen and examined, vital signs, labs, medications, overnight events were reviewed. Subjectively: Patient reports her sciatica pain is much improved with the current pain medication regimen. She tells me her breathing is more comfortable with the nonrebreather. She tolerated Dacogen infusion without difficulties yesterday. She denies having fevers or chills. Her appetite is improved. She did have a small bowel movement and a great deal of flatus yesterday and tells me her abdomen feels much more comfortable as a result. Objective Data Date Time Temp Pulse Resp B/P Pulse Ox O2 Delivery O2 Flow Rate FiO2 04/04/17 06:00 79 04/04/17 05:46 93 Nasal Cannula 6.00 04/04/17 04:00 98.3 75 15 108/55 99 04/04/17 04:00 75 04/04/17 02:00 74 04/04/17 00:00 116 04/04/17 00:00 98.3 116 19 103/53 100 04/03/17 22:00 113 04/03/17 20:48 100 Partial Rebreather 100 04/03/17 20:00 98.2 77 22 128/57 97 04/03/17 20:00 77 04/03/17 20:00 100 Partial Non-Rebreather 15.00 04/03/17 20:00 75 26 120/56 100 04/03/17 18:45 83 04/03/17 18:30 84 04/03/17 18:15 84 04/03/17 18:15 98.8 85 103/55 99 04/03/17 18:00 83 04/03/17 17:30 89 04/03/17 17:30 89 28 91/52 97 04/03/17 17:00 84 04/03/17 17:00 84 15 103/68 99 04/03/17 16:33 126 04/03/17 16:33 126 18 95/52 100 04/03/17 16:00 80 04/03/17 16:00 99.5 80 23 103/51 91 04/03/17 15:30 79 15 121/61 98 04/03/17 15:00 74 17 117/56 100 04/03/17 15:00 74 04/03/17 14:40 35 04/03/17 14:30 82 04/03/17 14:30 82 20 121/59 87 04/03/17 14:00 81 16 105/58 98 04/03/17 14:00 81 04/03/17 13:30 84 16 106/52 98 04/03/17 13:30 84 04/03/17 13:00 84 04/03/17 13:00 84 13 102/54 97 04/03/17 12:30 91 14 121/58 96 04/03/17 12:30 91 04/03/17 12:00 86 04/03/17 12:00 86 Partial Non-Rebreather 15.00 04/03/17 12:00 99.5 86 19 94/49 92 04/03/17 11:51 96 Partial Rebreather 15.00 04/03/17 11:38 127 04/03/17 11:38 127 18 99/56 90 04/03/17 11:30 125 14 94/53 93 04/03/17 11:30 125 04/03/17 11:00 119 04/03/17 11:00 119 14 85/53 91 04/03/17 10:30 117 18 91/50 93 04/03/17 10:30 117 04/03/17 10:00 123 04/03/17 10:00 123 13 100/62 91 04/03/17 09:30 127 04/03/17 09:30 127 20 121/63 87 04/03/17 09:00 118 04/03/17 09:00 118 11 96/56 93 04/03/17 08:30 119 04/03/17 08:30 119 10 109/63 91 04/03/17 08:14 92 Nasal Cannula 6.00 04/04/17 04/04/17 04/04/17 07:00 15:00 23:00 Intake Total 327 ml Output Total 1750 ml Balance -1423 ml Result Diagram: 04/04/17 0516 04/04/17 0516 Laboratory Results Laboratory Tests Test 04/03/17 04/04/17 12:16 05:16 Phosphorus Level 2.9 MG/DL 3.1 MG/DL White Blood Count 24.5 TH/MM3 Red Blood Count 2.63 MIL/MM3 Hemoglobin 7.9 GM/DL Hematocrit 23.6 % Mean Corpuscular Volume 89.6 FL Mean Corpuscular Hemoglobin 30.1 PG Mean Corpuscular Hemoglobin 33.6 % Concent Red Cell Distribution Width 17.9 % Platelet Count 88 TH/MM3 Mean Platelet Volume 8.6 FL Sodium Level 137 MEQ/L Potassium Level 4.1 MEQ/L Chloride Level 93 MEQ/L Carbon Dioxide Level 36.6 MEQ/L Anion Gap 7 MEQ/L Blood Urea Nitrogen 19 MG/DL Creatinine 0.92 MG/DL Estimat Glomerular Filtration 61 ML/MIN Rate Random Glucose 84 MG/DL Calcium Level 7.9 MG/DL Magnesium Level 2.3 MG/DL Digoxin Level 1.6 NG/ML Imaging Studies Last 24 hours Impressions Chest X-Ray 04/04/17 0600 Signed Impressions: Service Date/Time: Tuesday, April 04, 2017 04:43 - CONCLUSION: Slight improved aeration right lower lobe. Antwan Jensen MD Administered Medications Medications (Trade) Dose Ordered Sig/Tylor Route PRN Reason Start Time Stop Time Status Last Admin Dose Admin Sodium Chloride (NS Flush) 2 ml BID IV FLUSH 03/26/17 09:00 04/03/17 21:33 Acetaminophen (Tylenol) 650 mg Q4H PRN PO TEMP > 100.4 03/25/17 23:15 03/30/17 08:26 Ondansetron HCl (Zofran Inj) 4 mg Q6H PRN IVP NAUSEA OR VOMITING 03/25/17 23:15 03/29/17 21:36 Acetaminophen (Tylenol) 650 mg Q6H PRN PO PAIN SCALE 1 TO 2 03/25/17 23:15 03/26/17 08:14 Famotidine (Pepcid) 10 mg BID PO 03/26/17 09:00 04/03/17 21:30 Temazepam (Restoril) 15 mg HS PRN PO insomnia 03/26/17 00:30 04/03/17 21:33 Allopurinol (Zyloprim) 100 mg BID PO 03/26/17 09:00 04/03/17 21:34 Nystatin (Mycostatin Liq) 5 ml QID SWISH-SWAL 03/26/17 18:00 04/03/17 21:30 Atorvastatin Calcium (Lipitor) 40 mg DAILY PO 03/28/17 09:00 04/03/17 07:29 Lamotrigine (LaMICtal) 50 mg HS PO 03/27/17 21:00 04/03/17 21:31 Levothyroxine Sodium (Synthroid) 100 mcg DAILY@06 PO 03/28/17 06:00 04/04/17 05:40 Acetaminophen/ Hydrocodone Bitart (Parlin 10-325 Mg) 1 tab Q4H PRN PO PAIN 7-10 03/28/17 09:15 04/04/17 03:39 Lorazepam 1 mg 1 mg Q6H PRN PO ANXIETY 03/28/17 09:15 Hold 04/03/17 06:52 Meropenem/Sodium Chloride (Merrem Inj/NS Inj) 100 ml @ 200 mls/hr Q8H IV 03/31/17 14:00 04/04/17 05:39 Senna/Docusate Sodium (Ramya-Colace) 1 tab BID PO 03/31/17 21:00 04/03/17 21:30 Magnesium Hydroxide (Milk Of Magnesia Liq) 30 ml Q12H PRN PO SEE LABEL COMMENTS 03/31/17 14:00 04/01/17 08:15 Bisacodyl (Dulcolax Supp) 10 mg DAILY PRN RECTAL SEE LABEL COMMENTS 03/31/17 14:00 04/01/17 08:14 Lactulose (Lactulose Liq) 30 ml DAILY PRN PO SEE LABEL COMMENTS 03/31/17 14:00 04/01/17 08:13 Digoxin (Lanoxin) 0.25 mg DAILY PO 04/03/17 09:00 04/03/17 07:30 Metoprolol Tartrate (Lopressor Inj) 2.5 mg Q2H PRN IV PUSH tachycardia 04/02/17 20:15 04/03/17 10:14 Metoprolol Tartrate (Lopressor) 25 mg Q6HR PO 04/03/17 06:00 04/04/17 05:40 Furosemide (Lasix Inj) 40 mg BID IV PUSH 04/03/17 09:00 04/03/17 21:33 Potassium Phosphate (K-Phos) 2,000 mg Q4H PRN PO For Phosphorus < 2.5 mg/dL 04/03/17 08:30 04/03/17 14:23 Objective Remarks GENERAL PHYSICAL APPEARANCE: Ms. Richard is a middle-aged female, she is laying in bed and is in no acute distress. She is able to speak to me in almost full sentences. HEENT: Head is atraumatic, normocephalic, conjunctivae are pale. Sclerae are anicteric, EOMI, PERRLA. ORAL EXAM: She has thrush noted. NECK: No cervical lymphadenopathy. RESPIRATORY: Decreased bibasilar breath sounds left greater than right. Some crackles noted. CARDIOVASCULAR: Irregular rhythm, tachycardic, distant sounding heart sounds. rubs or gallops. She does have a systolic murmur heard over the aortic area. ABDOMEN: Obese belly, soft and nontender, nondistended. No palpable organ enlargement. Tympanic to percussion. LOWER EXTREMITIES: No pretibial edema or calf tenderness. MUSCULOSKELETAL: Adequate muscle mass, tone and strength. Assessment/Plan Problem List: (1) AML (acute myeloid leukemia) Status: Acute Plan: --Bone marrow biopsy indicates findings consistent with AML. FLT-3, CEPBA and NPM-1 analysis pending to help us prognosticate further, cytogenetics are pending. -- poor candidate for intensive induction remission therapy with anthracycline/ Cytarabine or HiDAC due to her cardiac and pulmonary issues and borderline performance status. --on allopurinol for tumor lysis prophylaxis --03/30/17: Dacogen day 1 started --03/31/17: transferred to [facility] [place]/t hypoxia, tachycardia, hypotension --04/01: hold Dacogen. patient remains hypotensive, tachycardic, hypoxic (2) Atrial fibrillation with RVR Status: Acute Plan: -- A. fib with RVR associated with transient chest pain: --cardiology following --on digoxin Assessment Ms. Richard is a 66-year-old female with a 3-week history of progressive malaise, fatigue and weakness. She reports soreness of the throat and a dry cough, both of which have been chronic. She presented to the emergency department for further workup and management because her symptoms of fatigue progressed to the point where she had difficulty walking from her bedroom to her restroom. She called EMS last night due to the severity of the symptoms. Blood work performed in the emergency department indicates findings consistent with anemia, thrombocytopenia, her WBCs are grossly abnormal with findings of numerous immature cells and blasts in the peripheral circulation. 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 Peripheral smear was formally reviewed by our hematocrit pathologist who assessed the findings to be consistent with a high- grade myeloid malignancy most consistent with acute myeloid leukemia. Plan 1. Acute myeloid leukemia: Recommended systemic therapy with Dacogen and she was not a good candidate for induction systemic therapy with an anthracycline plus cytarabine. Continue Dacogen, today will be day 3. Monitor daily I/Os to maintain control to slightly negative fluid balance. 2. A. fib with RVR: Rate controlied this morning; appears to be in sinus rhythm on the cardiac cath tech. On amiodarone. 3. Hypoxic respiratory failure: Likely secondary to pulmonary edema from volume overload. She has been effectively diuresed and is stable from a respiratory standpoint today. 4. On empiric antibiotic therapy with meropenem for suspected pneumonia. She is afebrile at this time. Spoke to son at bedside. Questions answered to their satisfaction. Problem Qualifiers (1) AML (acute myeloid leukemia): Qualified Code: C92.00 - Acute myeloid leukemia not having achieved remission Roberto Yarbrough MD Apr 04, 2017 08:09
[2017-04-04] MEDS: DOCUSATE SODIUM 50 MG/SENNA 8.6 MG TAB PO SCH ×2 (08:10→21:38)
[2017-04-04] MEDS: FUROSEMIDE 40 MG/4 ML VIAL IV PUSH SCH ×2 (08:10→21:37)
[2017-04-04] MEDS: NYSTATIN SUSP 500,000 U/5 ML CUP SWISH-SWAL SCH ×4 (08:10→21:37)
[2017-04-04] MEDS: DIGOXIN 0.25 MG TAB PO SCH (08:11)
[2017-04-04] MEDS: FAMOTIDINE 20 MG TAB PO SCH ×2 (08:11→21:38)
[2017-04-04] MEDS: ATORVASTATIN 40 MG TAB PO SCH (08:11)
[2017-04-04] MEDS: ALLOPURINOL 100 MG TAB PO SCH ×2 (08:12→21:38)
--- NOTE | 2017-04-04 08:36 | PD.CARD.PN ---
Subjective Subjective Remarks Dyspnea better. Slept well. Mild CP only with deep inspiration. No nausea, PND, palpitations. Objective Medications Item Value Date Time Digoxin 0.25 mg 04/03/17 0900 (Lanoxin) DAILY/PO 04/04/17 0811 Furosemide 40 mg 04/03/17 0900 (Lasix Inj) BID/IV PUSH 04/04/17 0810 Metoprolol 25 mg 04/03/17 0600 Tartrate Q6HR/PO 04/04/17 0540 (Lopressor) Metoprolol 2.5 mg 04/02/17 2015 Tartrate Q2H PRN/IV PUSH 04/03/17 1014 (Lopressor Inj) Atorvastatin 40 mg 03/28/17 0900 Calcium DAILY/PO 04/04/17 0811 (Lipitor) Vital Signs / I&O Vital Signs Date Time Temp Pulse Resp B/P Pulse Ox O2 Delivery O2 Flow Rate FiO2 04/04/17 06:00 79 04/04/17 05:46 93 Nasal Cannula 6.00 04/04/17 04:00 98.3 75 15 108/55 99 04/04/17 04:00 75 04/04/17 02:00 74 04/04/17 00:00 116 04/04/17 00:00 98.3 116 19 103/53 100 04/03/17 22:00 113 04/03/17 20:48 100 Partial Rebreather 100 04/03/17 20:00 98.2 77 22 128/57 97 04/03/17 20:00 77 04/03/17 20:00 100 Partial Non-Rebreather 15.00 04/03/17 20:00 75 26 120/56 100 04/03/17 18:45 83 04/03/17 18:30 84 04/03/17 18:15 84 04/03/17 18:15 98.8 85 103/55 99 04/03/17 18:00 83 04/03/17 17:30 89 04/03/17 17:30 89 28 91/52 97 04/03/17 17:00 84 04/03/17 17:00 84 15 103/68 99 04/03/17 16:33 126 04/03/17 16:33 126 18 95/52 100 04/03/17 16:00 80 04/03/17 16:00 99.5 80 23 103/51 91 04/03/17 15:30 79 15 121/61 98 04/03/17 15:00 74 17 117/56 100 04/03/17 15:00 74 04/03/17 14:40 35 04/03/17 14:30 82 04/03/17 14:30 82 20 121/59 87 04/03/17 14:00 81 16 105/58 98 04/03/17 14:00 81 04/03/17 13:30 84 16 106/52 98 04/03/17 13:30 84 04/03/17 13:00 84 04/03/17 13:00 84 13 102/54 97 04/03/17 12:30 91 14 121/58 96 04/03/17 12:30 91 04/03/17 12:00 86 04/03/17 12:00 86 Partial Non-Rebreather 15.00 04/03/17 12:00 99.5 86 19 94/49 92 04/03/17 11:51 96 Partial Rebreather 15.00 04/03/17 11:38 127 04/03/17 11:38 127 18 99/56 90 04/03/17 11:30 125 14 94/53 93 04/03/17 11:30 125 04/03/17 11:00 119 04/03/17 11:00 119 14 85/53 91 04/03/17 10:30 117 18 91/50 93 04/03/17 10:30 117 04/03/17 10:00 123 04/03/17 10:00 123 13 100/62 91 04/03/17 09:30 127 04/03/17 09:30 127 20 121/63 87 04/03/17 09:00 118 04/03/17 09:00 118 11 96/56 93 I/O 04/03/17 04/03/17 04/03/17 04/04/17 04/04/17 04/04/17 06:59 14:59 22:59 06:59 14:59 22:59 Intake Total 100 ml 540 ml 346 ml 327 ml Output Total 1700 ml 550 ml 1750 ml Balance 100 ml -1160 ml -204 ml -1423 ml Intake Oral 540 ml 180 ml IV Total 100 ml 0 ml 346 ml 147 ml Output Urine Total 1700 ml 550 ml 1750 ml # Voids 3 # Bowel Movements 0 Physical Exam GENERAL: Well developed, well nourished. No acute distress. HEENT: Jugular venous pressure difficult to assess. CHEST: Lungs clear to auscultation anteriorly. CARDIAC: Regular rate and rhythm without S3, S4, or murmur. ABDOMEN: Soft, nontender, no hepatosplenomegaly. Bowel sounds present. EXTREMITIES: No clubbing, cyanosis, or edema. Laboratory Laboratory Tests Test 04/03/17 04/04/17 12:16 05:16 Phosphorus Level 2.9 MG/DL 3.1 MG/DL White Blood Count 24.5 TH/MM3 Red Blood Count 2.63 MIL/MM3 Hemoglobin 7.9 GM/DL Hematocrit 23.6 % Mean Corpuscular Volume 89.6 FL Mean Corpuscular Hemoglobin 30.1 PG Mean Corpuscular Hemoglobin 33.6 % Concent Red Cell Distribution Width 17.9 % Platelet Count 88 TH/MM3 Mean Platelet Volume 8.6 FL Sodium Level 137 MEQ/L Potassium Level 4.1 MEQ/L Chloride Level 93 MEQ/L Carbon Dioxide Level 36.6 MEQ/L Anion Gap 7 MEQ/L Blood Urea Nitrogen 19 MG/DL Creatinine 0.92 MG/DL Estimat Glomerular Filtration 61 ML/MIN Rate Random Glucose 84 MG/DL Calcium Level 7.9 MG/DL Magnesium Level 2.3 MG/DL Digoxin Level 1.6 NG/ML Assessment and Plan Problem List: (1) Paroxysmal atrial fibrillation Assessment and Plan: Remains in sinus rhythm on oral digoxin and metoprolol. Rec resume Amiodarone, 200 mg po qd, drop digoxin to 0.125 mg qd. (2) Hypertension Assessment and Plan: Stable. Normotensive. (3) Chest pain Assessment and Plan: No further CP's, arm pains except minimal chest discomfort with deep inspiration. Rec conservative evaluation, management. (4) AML (acute myeloid leukemia) Code Status alternative code Discussed Condition With patient and son Problem Qualifiers (1) Hypertension: Qualified Code: I10 - Essential hypertension (2) Chest pain: Qualified Code: R07.9 - Chest pain, unspecified type (3) AML (acute myeloid leukemia): Qualified Code: C92.00 - Acute myeloid leukemia not having achieved remission Alfie Jefferson MD Apr 04, 2017 08:36
[2017-04-04] MEDS: RESP: ALBUTEROL 2.5 MG/IPRATROPIUM 0.5 MG NEB (SCH) NEB (08:52)
[2017-04-04] MEDS: DIGOXIN 0.125 MG TAB PO SCH (09:00)
[2017-04-04] MEDS: AMIODARONE 200 MG TAB PO SCH (09:50)
[2017-04-04] MEDS: RESP: ALBUTEROL 2.5 MG/IPRATROPIUM 0.5 MG NEB (PRN) NEB (12:17)
--- NOTE | 2017-04-04 12:43 | HHI.IDPN ---
Note Infectious Disease Note Patient on O2 NRM. Says she feels okay. Awake and responsive. looks comfortable. Notes sweats and pain under the breasts with deep inspiration. No sputum production. No cough. Afebrile. WBC decreasing. Diagnosed with high-grade myeloid neoplasm. PAST MEDICAL HISTORY 1. Hypertension 2. Hypothyroidism 3. Chronic obstructive pulmonary disease 4. partial seizures 5. intracranial aneurysm 6. anxiety disorder. 7. Appendectomy. 8. The vein surgery in the left leg. ALLERGIES PENICILLIN OBJECTIVE: Vital Signs Date Time Temp Pulse Resp B/P Pulse Ox O2 Delivery O2 Flow Rate FiO2 04/04/17 12:00 98.3 94 33 119/56 86 04/04/17 12:00 94 04/04/17 10:00 86 04/04/17 08:53 97 Partial Rebreather 12.00 04/04/17 08:00 98.3 79 24 134/63 99 04/04/17 08:00 79 04/04/17 07:00 90 Partial Non-Rebreather 15.00 04/04/17 06:00 79 04/04/17 05:46 93 Nasal Cannula 6.00 04/04/17 04:00 98.3 75 15 108/55 99 04/04/17 04:00 75 04/04/17 02:00 74 04/04/17 00:00 116 04/04/17 00:00 98.3 116 19 103/53 100 04/03/17 22:00 113 04/03/17 20:48 100 Partial Rebreather 100 04/03/17 20:00 98.2 77 22 128/57 97 04/03/17 20:00 77 04/03/17 20:00 100 Partial Non-Rebreather 15.00 04/03/17 20:00 75 26 120/56 100 04/03/17 18:45 83 04/03/17 18:30 84 04/03/17 18:15 84 04/03/17 18:15 98.8 85 103/55 99 04/03/17 18:00 83 04/03/17 17:30 89 04/03/17 17:30 89 28 91/52 97 04/03/17 17:00 84 04/03/17 17:00 84 15 103/68 99 04/03/17 16:33 126 04/03/17 16:33 126 18 95/52 100 04/03/17 16:00 80 04/03/17 16:00 99.5 80 23 103/51 91 04/03/17 15:30 79 15 121/61 98 04/03/17 15:00 74 17 117/56 100 04/03/17 15:00 74 04/03/17 14:40 35 04/03/17 14:30 82 04/03/17 14:30 82 20 121/59 87 04/03/17 14:00 81 16 105/58 98 04/03/17 14:00 81 04/03/17 13:30 84 16 106/52 98 04/03/17 13:30 84 04/03/17 13:00 84 04/03/17 13:00 84 13 102/54 97 04/03/17 04/03/17 04/04/17 15:00 23:00 07:00 Intake Total 540 ml 346 ml 327 ml Output Total 1700 ml 550 ml 1750 ml Balance -1160 ml -204 ml -1423 ml Intake Oral 540 ml 180 ml IV Total 0 ml 346 ml 147 ml Output Urine Total 1700 ml 550 ml 1750 ml Laboratory Tests Test 04/03/17 04/04/17 05:59 05:16 White Blood Count 28.5 TH/MM3 24.5 TH/MM3 Red Blood Count 2.67 MIL/MM3 2.63 MIL/MM3 Hemoglobin 7.8 GM/DL 7.9 GM/DL Hematocrit 24.0 % 23.6 % Mean Corpuscular Volume 89.9 FL 89.6 FL Mean Corpuscular Hemoglobin 29.3 PG 30.1 PG Mean Corpuscular Hemoglobin 32.6 % 33.6 % Concent Red Cell Distribution Width 18.2 % 17.9 % Platelet Count 85 TH/MM3 88 TH/MM3 Mean Platelet Volume 8.3 FL 8.6 FL Neutrophils (%) (Auto) % Lymphocytes (%) (Auto) % Monocytes (%) (Auto) % Eosinophils (%) (Auto) % Basophils (%) (Auto) % Neutrophils # (Auto) TH/MM3 Lymphocytes # (Auto) TH/MM3 Monocytes # (Auto) TH/MM3 Eosinophils # (Auto) TH/MM3 Basophils # (Auto) TH/MM3 CBC Comment AUTO DIFF Differential Total Cells 100 Counted Neutrophils % (Manual) 42 % Lymphocytes % 22 % Monocytes % 6 % Neutrophils # (Manual) 14.3 TH/MM3 Metamyelocytes 3 % Myelocytes 5 % Differential Comment FINAL DIFF MANUAL Blastocytes 22 % Platelet Estimate LOW Platelet Morphology Comment NORMAL Laboratory Tests Test 04/03/17 04/03/17 04/04/17 05:59 12:16 05:16 Sodium Level 138 MEQ/L 137 MEQ/L Potassium Level 3.9 MEQ/L 4.1 MEQ/L Chloride Level 97 MEQ/L 93 MEQ/L Carbon Dioxide Level 36.0 MEQ/L 36.6 MEQ/L Anion Gap 5 MEQ/L 7 MEQ/L Blood Urea Nitrogen 16 MG/DL 19 MG/DL Creatinine 0.82 MG/DL 0.92 MG/DL Estimat Glomerular Filtration 70 ML/MIN 61 ML/MIN Rate Random Glucose 89 MG/DL 84 MG/DL Uric Acid 4.3 MG/DL Calcium Level 8.0 MG/DL 7.9 MG/DL Phosphorus Level 2.4 MG/DL 2.9 MG/DL 3.1 MG/DL Magnesium Level 2.6 MG/DL 2.3 MG/DL Total Bilirubin 0.4 MG/DL Aspartate Amino Transf 69 U/L (AST/SGOT) Alanine Aminotransferase 32 U/L (ALT/SGPT) Alkaline Phosphatase 106 U/L Lactate Dehydrogenase 748 U/L Total Protein 5.6 GM/DL Albumin 1.9 GM/DL IMAGING: Chest X-Ray 04/04/17 0600 Signed Impressions: Service Date/Time: Tuesday, April 04, 2017 04:43 - CONCLUSION: Slight improved aeration right lower lobe. Antwan Jensen MD Chest X-Ray 04/02/17 0600 Signed Impressions: Service Date/Time: Sunday, April 02, 2017 03:28 - CONCLUSION: No significant change has occurred. Antwan Jensen MD Chest X-Ray 04/01/17 0000 Signed Impressions: Service Date/Time: Saturday, April 01, 2017 09:23 - CONCLUSION: 1. Stable left basilar opacity likely representing pleural effusion with associated volume loss and/or consolidation. 2. There is new diffuse hazy opacity over the right lung. However, given the patient's rotation this may explain the appearance and interval change. Suggest attention to this on followup imaging. Raoul Jeffries MD PHYSICAL EXAMINATION: GENERAL: No acute distress. HEAD, EYES, EARS, NOSE, AND THROAT: No icterus. Moist mucosa. NECK: Supple without adenopathy. LUNGS: Decreased breath sounds bilateral. HEART: Irregular rate and rhythm. No murmurs or rubs or gallops. ABDOMEN: Bowel sounds present, obese, soft, nontender. EXTREMITIES: No clubbing or cyanosis or edema. SKIN: No rash. NEUROLOGIC: Nonfocal. PSYCHIATRIC: Calm. IMPRESSION 1. Sepsis 2. Pneumonia. lung infiltrates. Decreased O2 saturation. Still with infiltrate at left lower lung. did not respond to aztreonam and levaquin. 3. Leukocytosis. Not certain it is due to infection. decreasing. 4. Acute kidney disease.. improving. 5. Acute myeloid leukemia. Receiving chemo. 6. Penicillin allergy. RECOMMENDATIONS 1. Continue Meropenem. 2. Monitor the temperature 3. Monitor white blood cell count. 4. Monitor clinical status. Brody Reich MD Apr 04, 2017 12:43
--- NOTE | 2017-04-04 15:17 | HHI.CCPN ---
Subjective Remarks/Hospital Course This is a 66-year-old female, that presented to the hospital with shortness of breath productive cough and generalized fatigue upon admission. Subsequent laboratory and imaging studies reveal a pneumonia. 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 Since admission the patient was placed on empiric antibiotic Azactam. Blood culture negative growth today, urine culture showed 50-100,000 of gram-positive chance. Hematology oncology initiated Dacogen first dose yesterday. The patient was noted to have a cardiac rhythm A. fib RVR cardiology was consulted, Dr. Chang the patient was placed on amiodarone 400 mg twice a day received a dose of digoxin last evening. The patient early this a.m., had A. fib RVR with dyspnea and hypoxemia with O2 sat duration in the 80s. Critical care medicine was consulted. Upon meeting and evaluating the patient the patient was noted to be in a sinus tachycardia with a heart rate [id number], with an O2 saturation on nonrebreather of 91-92%. The patient received 20 mg IV Lasix upon arrival, with subsequent diuresis of approximately 1 L, and decreased in FiO2 requirements. The patient was noted to have a significant leukocytosis, with 1 % bands, pro-calcitonin level was drawn ID was consulted. Subjective: 04/01: The patient required increasing FiO2 requirements overnight. The patient currently on nonrebreather mask O2 saturation 94%. Stat chest x-ray obtain results pending, stat ABG results pending. Discussion with patient and son regarding the probable likelihood of intubation this a.m.. All questions answered. The patient remains nothing by mouth at this time. ID was consulted yesterday regarding the leukocytosis and elevation in temperature, following recommendations. 04/02: No acute events overnight. Patient's oxygen requirements remain at 4 L/m nasal cannula. Palliative care team in extensive discussion with family, patient CODE STATUS been made DNR/DNI. Heart healthy diet has been resumed. 04/03: Overnight the patient, had increasing FiO2 requirements required partial nonrebreather mask, and also received 3 doses of Ativan. The patient became tachycardic and received metoprolol IV subsequently at 2 AM went into A. fib RVR and received 15 mg Cardizem IV push. The patient currently telemetry revealing ST 113. Thomson reinserted with strict TARAN hourly monitoring patient to receive Dacogen today. 04/04: Slight improvement in chest x-ray today. Patient still remains on high FiO2 requirements. Patient continues on twice a day diuretic dosing. Continue hourly monitoring for even I's and O's every 24 hours when patients undergoing Dacogen therapy. Patient to have therapy and still today third day of dosing. A chin complains of pain on inspiration well controlled with PRN Lortab The patient's tolerating a diet. Objective Vital Signs Date Time Temp Pulse Resp B/P Pulse Ox O2 Delivery O2 Flow Rate FiO2 04/04/17 12:00 98.3 94 33 119/56 86 04/04/17 08:53 Partial Rebreather 12.00 04/03/17 20:48 100 Intake and Output 04/03/17 04/03/17 04/03/17 07:59 15:59 23:59 Intake Total 100 ml 540 ml 346 ml Output Total 1700 ml 550 ml Balance 100 ml -1160 ml -204 ml Result Diagram: 04/04/17 0516 04/04/17 0516 Imaging Last Impressions Chest X-Ray 04/02/17 0600 Signed Impressions: Service Date/Time: Sunday, April 02, 2017 03:28 - CONCLUSION: No significant change has occurred. Antwan Jensen MD Bone Biopsy CT 03/26/17 0000 Signed Impressions: Service Date/Time: Sunday, March 26, 2017 14:48 - CONCLUSION: 1. Uncomplicated CT guided bone marrow aspirate. 2. Uncomplicated CT guided bone marrow biopsy. Raoul Jeffries MD Lumbar Spine CT 03/25/172131 Signed Impressions: Service Date/Time: Sunday, March 26, 2017 01:12 - CONCLUSION: 1. Degenerative disc changes greatest at the L4-5 and L5-S1 levels with broad-based disc osteophyte complexes. There is lateral recess stenosis at the L5-S1 level. 2. Mild retrolisthesis of L5 on S1 with degenerative disc change and broad-based disc osteophyte complex. 3. Narrowing of the neuroforamina bilaterally at the L4-5 and L5-S1 levels. 4. Degenerative disc change. Balaji Solorio MD CT Angiography 03/25/172128 Signed Impressions: Service Date/Time: Sunday, March 26, 2017 01:09 - CONCLUSION: 1. Mild consolidation along the left fissure and lower lobe. This could indicate early pneumonia. 2. No evidence of pulmonary embolism. Balaji Solorio MD Last Impressions Chest X-Ray 03/31/17 0000 Signed Impressions: Service Date/Time: Friday, March 31, 2017 09:53 - CONCLUSION: New left basilar opacity with features characteristic of pleural effusion with associated volume loss and/or airspace consolidation. Raoul Jeffries MD Bone Biopsy CT 03/26/17 0000 Signed Impressions: Service Date/Time: Sunday, March 26, 2017 14:48 - CONCLUSION: 1. Uncomplicated CT guided bone marrow aspirate. 2. Uncomplicated CT guided bone marrow biopsy. Raoul Jeffries MD Lumbar Spine CT 03/25/172131 Signed Impressions: Service Date/Time: Sunday, March 26, 2017 01:12 - CONCLUSION: 1. Degenerative disc changes greatest at the L4-5 and L5-S1 levels with broad-based disc osteophyte complexes. There is lateral recess stenosis at the L5-S1 level. 2. Mild retrolisthesis of L5 on S1 with degenerative disc change and broad-based disc osteophyte complex. 3. Narrowing of the neuroforamina bilaterally at the L4-5 and L5-S1 levels. 4. Degenerative disc change. Balaji Solorio MD CT Angiography 03/25/172128 Signed Impressions: Service Date/Time: Sunday, March 26, 2017 01:09 - CONCLUSION: 1. Mild consolidation along the left fissure and lower lobe. This could indicate early pneumonia. 2. No evidence of pulmonary embolism. Balaji Solorio MD Objective Remarks BP 139/81 Pulse 108-113 O2 sat duration 94% on Partial NRB RR 24 GENERAL: Obese female in no respiratory distress on NRb SKIN: Warm and dry. HEAD: Atraumatic. Normocephalic. EYES: Pupils equal and round. No scleral icterus. No injection or drainage. ENT: No nasal bleeding or discharge. Mucous membranes pink and moist. NECK: Trachea midline. No JVD. CARDIOVASCULAR: Normal rate, regular rhythm. Telemetry sinus rhythm RESPIRATORY: No accessory muscle use. Clear to auscultation. Breath sounds equal bilaterally. GASTROINTESTINAL: Abdomen soft, protuberant ,non-tender, nondistended. No guarding. MUSCULOSKELETAL: Extremities without clubbing, cyanosis, or edema. No obvious deformities. NEUROLOGICAL: Awake and alert. RASS 0. GCS 15 No gross focal/sensory deficits. Follows commands in all 4 extremities. Procedures 04/02,04/03,04/04 Dacogen therapy Date of Insertion: Apr 03, 2017 A/P Assessment and Plan Assessment Hypotension was likely secondary to sepsis Sepsis A. fib RVR with conversion to Sinus tachycardia Respiratory Insufficiency Pneumonia-left lower lobe (left basilar opacity) Persistent leukocytosis Bandemia Pleural effusions Acute myeloid leukemia Anemia Thrombocytopenia CKD stage 3 H/O chronic HTN H/O cerebral aneurysm H/O CVA with residual weakness Hypothyroidism Mild protein calorie malnutrition Morbid obesity Chronic pain Constipation-resolved Persistent leukocytosis Hypophosphatemia Plan Neurologic: -GCS 15, appropriately responsive -Maintain sleep hygiene, avoid ICU delirium, maintains stimulation during the day - Restoril 15 mg at bedtime when necessary for insomnia, avoid multiple disruptions at night -[place] 10/325 PRN -04/03 Discontinued Ativan Respiratory: -Maintain O2 sat greater than 92% -Scheduled continue bronchodilators 4 times a day scheduled -Wean O2 as tolerated -Maintain head of bed 30 -Lasix increased to twice a day Cardiovascular: -Metoprolol 2.5 mg IV every 6 hours when necessary for heart rate greater than 100bpm -Cardiology following- Dr. Chang/ Ronny --04/04 Digoxin level 1.6 -Amiodarone 400 mg/ day, atorvastatin. Digoxin 0.125 mg Management per Cardiology -Discontinue Terazosin in the setting of hypotension -Metoprolol frequency increased, to 6 hours Renal: - Maintain thomson- patient receiving Dacogen therapy strict hourly I&O's indicated -- Strict I/Os FEN/GI: -Monitor electrolytes -Electrolyte replacement per ICU protocol -Heart healthy diet -Bowel regimen Heme/ID: -Hematology oncology following Dr. Yarbrough -Allopurinol continued per hematology oncology-prophylaxis for tumor lysis syndrome -Granisetron scheduled, ondansetron PRN for nausea -Dacogen dosing per Hematology-Oncology schedule -PLT count 88, follow-up hematology oncology will transfuse for platelet count less than 50,000 Endocrine: -Levothyroxine 100 mcgs/day -Glucose monitoring per ICU protocol -- SSI Prophylaxis: GI Prophylaxis Pepcid DVT Prophylaxis -- SCDs No pharmacological DVT prophylaxis in the setting of thrombocytopenia defer to HematologyOncology Lines: PIV x 2 Dispo: Level 3 Discussed with HYDROGENATION STILL OPERATOR ,patient and son Tristan at bedside. Patient CODE STATUS changed to intubation only after extensive discussion with palliative care and other family members last night. Patient's pulmonary status continues to be tenuous possibility of intubation. Physician Sita Hu MD Apr 04, 2017 15:17
[2017-04-04] MEDS ORDERED: SODIUM CHLOR 0.9% IV ONE (16:00)
[2017-04-04] MEDS ORDERED: DECITABINE IV ONE (16:00)
[2017-04-04] MEDS ORDERED: GRANISETRON HCL 1 MG TAB PO ONE (16:30)
--- NOTE | 2017-04-04 16:35 | HHI.HCPN ---
Reason for visit a. To assist with evaluation and management of symptoms including: Shortness of breath and debility. b. To assist medical decision maker(s) with: better understanding of current medical conditions; weighing benefits/burdens of medical treatment options; making medical treatment decisions. . (Luanne Montoya) Subjective/Interval History Mrs. Sandi England is a 66-year-old female with a medical history significant for COPD, CK D, multiple brain aneurysm, HTN, TIA and seizure disorder. 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 Clinical course complicated by sepsis and pneumonia. Palliative care has been consulted for further clarifications of goals of care given newly diagnosed of acute myeloid leukemia with limited treatment options secondary to acute complications. Patient seen in ICU. Resting in bed in no acute distress. Patient is alert & oriented x self, place and situation. Verbal, able to communicate needs. Currently on a nonrebreather mask at 15 L. Endorsing shortness of breath at rest on on exertion. Endorsing chest pain on inspiration, controlled with [place]. Patient endorsing mild abdominal discomfort, no bowel movement reported in 2 days. Discussed with patient constipation as side effects of narcotics, currently on [id number] twice a day. Milk of magnesia, bisacodyl suppository, lactulose available as needed. Chest x-ray today revealing slight improved aeration to right lower lobe. Laboratory workup revealing persistent leukocytosis, 24.5, stable Hgb 7.9, platelet count 88. Blood culture with no growth in 4 days. Patient's son Sarthak gregg. Reviewed the role of palliative care in advanced illness in regards to symptom management as well as support surrounding goals of care and advance care planning. Medical update provided. Reviewed newly diagnosis of AML, ongoing acute on chronic comorbidities, acute complications and overall physical deconditioning. Patient able to participate in medical decision-making. Verbalized wishing to continue with aggressive management short of no cardiac code code/intubation only. This has been previously discussed with aircraft maintenance supervisor Dr. Gomez. Hospice philosophy and benefits previously introduced, patient and family receptive to this should patient's clinical condition worsen, increased symptom burden or continue decline. Patient and family appreciative of my visit. Case discussed with bedside RN Dewey. . Family/friend interactions See interval note. . (Luanne Montoya) Advance Directives Living Will: Copy in medical record Health Care Surrogate: Copy in medical record Durable Power of Replacer: Never completed (Luanne Montoya) Advance Directive Specifics Date completed: 03/30/2017. . Health Care Surrogate(s): Wilmer Miguel as HCS, alternate HCS daughter Jerri Miguel. . Documented care wishes: "I do not wish to be revived by any means are recent. Allow natural if I feel that I cannot continue to treatment due to pain, I wish to stop all treatments and to be made comfortable until I pass". Significant change in goals: Alternate code/intubation only. Continue aggressive management. . (Luanne Montoya) Objective Vital Signs Date Time Temp Pulse Resp B/P Pulse Ox O2 Delivery O2 Flow Rate FiO2 04/04/17 14:00 91 04/04/17 12:00 98.3 94 33 119/56 86 04/04/17 12:00 94 04/04/17 10:00 86 04/04/17 08:53 97 Partial Rebreather 12.00 04/04/17 08:00 98.3 79 24 134/63 99 04/04/17 08:00 79 04/04/17 07:00 90 Partial Non-Rebreather 15.00 04/04/17 06:00 79 04/04/17 05:46 93 Nasal Cannula 6.00 04/04/17 04:00 98.3 75 15 108/55 99 04/04/17 04:00 75 04/04/17 02:00 74 04/04/17 00:00 116 04/04/17 00:00 98.3 116 19 103/53 100 04/03/17 22:00 113 04/03/17 20:48 100 Partial Rebreather 100 04/03/17 20:00 98.2 77 22 128/57 97 04/03/17 20:00 77 04/03/17 20:00 100 Partial Non-Rebreather 15.00 04/03/17 20:00 75 26 120/56 100 04/03/17 18:45 83 04/03/17 18:30 84 04/03/17 18:15 84 04/03/17 18:15 98.8 85 103/55 99 04/03/17 18:00 83 04/03/17 17:30 89 04/03/17 17:30 89 28 91/52 97 04/03/17 17:00 84 04/03/17 17:00 84 15 103/68 99 04/03/17 16:33 126 04/03/17 16:33 126 18 95/52 100 Intake & Output 04/04/17 04/04/17 07:00 19:00 Intake Total 577 ml 480 ml Output Total 2300 ml 1375 ml Balance -1723 ml -895 ml Intake Oral 180 ml 480 ml IV Total 397 ml 0 ml Output Urine Total 2300 ml 1375 ml Physical Exam CONSTITUTIONAL/GENERAL: This is an adequately nourished patient in no acute distress. Resting in bed. TUBES/LINES/DRAINS: PIV's, nonrebreather mask, Lujan catheter. SKIN: No jaundice, rashes, or lesions. Ecchymoses on upper extremities. No wounds seen anteriorly. Skin temperature appropriate. Not diaphoretic. HEAD: Atraumatic. Normocephalic. EYES: Pupils equal and round and reactive. Extraocular motions intact. No scleral icterus. No injection or drainage. ENT: Hearing grossly normal. Nose without bleeding or purulent drainage. Moist oral mucosa. NECK: Trachea midline. Supple, nontender. CARDIOVASCULAR: Irregular rate and rhythm. Systolic murmur. No JVD. Peripheral pulses symmetric. RESPIRATORY/CHEST: Symmetric, Diminished to auscultation. Nonrebreather mask, O2 15 L. GASTROINTESTINAL: Abdomen soft, round, mildly distended. No guarding. Bowel sounds present. GENITOURINARY: Without palpable bladder distension. Lujan catheter in place. MUSCULOSKELETAL: Extremities without clubbing, cyanosis, or edema. NEUROLOGICAL: Awake and alert. Motor and sensory grossly within normal limits. Follows commands. Moves all extremities. PSYCHIATRIC: Calm, pleasant. . (Luanne Montoya) Diagnostic Tests Laboratory Laboratory Tests Test 04/02/17 04/03/17 04/03/17 04/04/17 06:59 05:59 12:16 05:16 White Blood Count 29.3 TH/MM3 28.5 TH/MM3 24.5 TH/MM3 (4.0-11.0) (4.0-11.0) (4.0-11.0) Red Blood Count 2.68 MIL/MM3 2.67 MIL/MM3 2.63 MIL/MM3 (4.00-5.30) (4.00-5.30) (4.00-5.30) Hemoglobin 7.9 GM/DL 7.8 GM/DL 7.9 GM/DL (11.6-15.3) (11.6-15.3) (11.6-15.3) Hematocrit 24.1 % 24.0 % 23.6 % (35.0-46.0) (35.0-46.0) (35.0-46.0) Mean Corpuscular Volume 90.0 FL 89.9 FL 89.6 FL (80.0-100.0) (80.0-100.0) (80.0-100.0) Mean Corpuscular Hemoglobin 29.5 PG 29.3 PG 30.1 PG (27.0-34.0) (27.0-34.0) (27.0-34.0) Mean Corpuscular Hemoglobin 32.7 % 32.6 % 33.6 % Concent (32.0-36.0) (32.0-36.0) (32.0-36.0) Red Cell Distribution Width 18.2 % 18.2 % 17.9 % (11.6-17.2) (11.6-17.2) (11.6-17.2) Platelet Count 83 TH/MM3 85 TH/MM3 88 TH/MM3 (150-450) (150-450) (150-450) Mean Platelet Volume 8.8 FL 8.3 FL 8.6 FL (7.0-11.0) (7.0-11.0) (7.0-11.0) Neutrophils (%) (Auto) % (16.0-70.0) % (16.0-70.0) Lymphocytes (%) (Auto) % (9.0-44.0) % (9.0-44.0) Monocytes (%) (Auto) % (0.0-8.0) % (0.0-8.0) Eosinophils (%) (Auto) % (0.0-4.0) % (0.0-4.0) Basophils (%) (Auto) % (0.0-2.0) % (0.0-2.0) Neutrophils # (Auto) TH/MM3 TH/MM3 (1.8-7.7) (1.8-7.7) Lymphocytes # (Auto) TH/MM3 TH/MM3 (1.0-4.8) (1.0-4.8) Monocytes # (Auto) TH/MM3 (0-0.9) TH/MM3 (0-0.9) Eosinophils # (Auto) TH/MM3 (0-0.4) TH/MM3 (0-0.4) Basophils # (Auto) TH/MM3 (0-0.2) TH/MM3 (0-0.2) CBC Comment AUTO DIFF AUTO DIFF Differential Total Cells 100 100 Counted Neutrophils % (Manual) 40 % (16-70) 42 % (16-70) Band Neutrophils % 2 % (0-6) Lymphocytes % 7 % (9-44) 22 % (9-44) Monocytes % 16 % (0-8) 6 % (0-8) Neutrophils # (Manual) 15.8 TH/MM3 14.3 TH/MM3 (1.8-7.7) (1.8-7.7) Metamyelocytes 4 % (0-1) 3 % (0-1) Myelocytes 7 % (0-0) 5 % (0-0) Promyelocytes 1 % (0-0) Nucleated Red Blood Cells 1 /100 WBC (0-0) Differential Comment FINAL DIFF FINAL DIFF MANUAL MANUAL Blastocytes 23 % (0-0) 22 % (0-0) Platelet Estimate LOW (NORMAL) LOW (NORMAL) Platelet Morphology Comment NORMAL NORMAL (NORMAL) (NORMAL) Sodium Level 138 MEQ/L 138 MEQ/L 137 MEQ/L (136-145) (136-145) (136-145) Potassium Level 3.7 MEQ/L 3.9 MEQ/L 4.1 MEQ/L (3.5-5.1) (3.5-5.1) (3.5-5.1) Chloride Level 100 MEQ/L 97 MEQ/L 93 MEQ/L (98-107) (98-107) (98-107) Carbon Dioxide Level 31.8 MEQ/L 36.0 MEQ/L 36.6 MEQ/L (21.0-32.0) (21.0-32.0) (21.0-32.0) Anion Gap 6 MEQ/L (5-15) 5 MEQ/L (5-15) 7 MEQ/L (5-15) Blood Urea Nitrogen 16 MG/DL (7-18) 16 MG/DL (7-18) 19 MG/DL (7-18) Creatinine 0.82 MG/DL 0.82 MG/DL 0.92 MG/DL (0.50-1.00) (0.50-1.00) (0.50-1.00) Estimat Glomerular Filtration 70 ML/MIN (>89) 70 ML/MIN (>89) 61 ML/MIN (>89) Rate Random Glucose 84 MG/DL 89 MG/DL 84 MG/DL (74-106) (74-106) (74-106) Uric Acid 4.4 MG/DL 4.3 MG/DL (2.6-6.0) (2.6-6.0) Calcium Level 7.7 MG/DL 8.0 MG/DL 7.9 MG/DL (8.5-10.1) (8.5-10.1) (8.5-10.1) Total Bilirubin 0.4 MG/DL 0.4 MG/DL (0.2-1.0) (0.2-1.0) Aspartate Amino Transf 59 U/L (15-37) 69 U/L (15-37) (AST/SGOT) Alanine Aminotransferase 31 U/L (10-53) 32 U/L (10-53) (ALT/SGPT) Alkaline Phosphatase 98 U/L (45-117) 106 U/L (45-117) Lactate Dehydrogenase 646 U/L 748 U/L (84-246) (84-246) Total Protein 5.3 GM/DL 5.6 GM/DL (6.4-8.2) (6.4-8.2) Albumin 1.8 GM/DL 1.9 GM/DL (3.4-5.0) (3.4-5.0) Phosphorus Level 2.4 MG/DL 2.9 MG/DL 3.1 MG/DL (2.5-4.9) (2.5-4.9) (2.5-4.9) Magnesium Level 2.6 MG/DL 2.3 MG/DL (1.5-2.5) (1.5-2.5) Digoxin Level 1.7 NG/ML 1.6 NG/ML (0.8-2.0) (0.8-2.0) (Luanne Montoya) Result Diagram: 04/04/17 0516 04/04/17 0516 Microbiology Microbiology Date/Time Procedure Status Source Growth 03/31/17 18:45 Aerobic Blood Culture - Preliminary Resulted Blood Other NO GROWTH IN 4 DAYS 03/31/17 18:45 Anaerobic Blood Culture - Preliminary Resulted Blood Other NO GROWTH IN 4 DAYS Imaging Last 48 hours Impressions Chest X-Ray 04/04/17 0600 Signed Impressions: Service Date/Time: Sunday, April 04, 2017 04:43 - CONCLUSION: Slight improved aeration right lower lobe. Antwan Jensen MD (Luanne Montoya) Assessment and Plan Disease Oriented Problem List: (1) Acute respiratory failure (2) AML (acute myeloid leukemia) (3) Sepsis (4) Pneumonia (5) CKD (chronic kidney disease) stage 3, GFR 30-59 ml/min (6) Atrial fibrillation with RVR (7) Anemia (8) hx cerebral aneurysm Symptom Scale: (1) Shortness of breath 0-10 Scale: Unable to quantify Comment: Secondary to pneumonia, pulmonary edema. Currently on O2 via nasal cannula at 4L. (2) Debility 0-10 Scale: Unable to quantify Comment: Progressive. Worsen within the last month. Pertinent Non-Medical Issues Psychosocial: Originally from [place]. , has 2 adult children. 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 Spiritual: Buddhism biju. Legal: Living will and designation of healthcare surrogate completed. Ethical issues impacting care: No ethical issues identified. . Important Contacts [facility]/son Sarthak Miguel daughter Jerri Miguel . . Prognosis Mrs. Sandi England is a 66 y/o female with a medical history significant for COPD, CK D, multiple brain aneurysm, HTN, TIA and newly diagnosed acute myeloid leukemia. Patient's overall prognosis is poor given ongoing acute on chronic comorbidities, newly diagnosed AML, respiratory failure and physical deconditioning. Patient very at high risk for further complications, continue decline and . . Code Status: Alternative Code Plan * CODE STATUS: Alternate code/intubation only. * HEALTHCARE DECISION MAKING: Patient participating in medical decision-making. Patient demonstrates a good understanding of her medical condition and the ability to weight benefits burdens of treatment options. Designation of healthcare surrogate in file, patient designated her son Sarthak Miguel as HCS, alternate HCS daughter Jerri Miguel. * GOALS OF CARE: Patient verbalized wishing to continue with aggressive management short of no cardiac code/intubation only. This has been previously discussed with aircraft maintenance supervisor Dr. Gomez. Hospice philosophy and benefits previously introduced, patient and family receptive to this should patient's clinical condition worsen, increased symptom burden or continue decline. * SYMPTOMS: = Dyspnea, secondary to pneumonia, anemia, respiratory failure. ID and pulm following. Patient currently on nonrebreather mask at 15 L. After further discussion, patient electing alternate code/intubation only. = Debility , progressive. Worsening during the past month. Exacerbated by acute illness and prolonged hospitalization. = Constipation, exacerbated by opioid and bedrest. Currently on Lnek-Vwfn-drfqxi twice a day. Milk of magnesia, bisacodyl suppository, lactulose available as needed. No further recommendations at this time. * Case discussed with bedside FADY Palomo. * Palliative care contact information has been provided to patient and family. * Palliative care will continue to follow-up as needed for further clarifications of goals of care and emotional support as patient's clinical course continues to evolve. . (Luanne Montoya) Time Spent Total Floor Time (mins): 32 (Total time to include review medical records, physical exam, goals of care conversation with patient and son and case review with bedside FADY Palomo.) >50% Counseling/Coord of Care: Yes (Luanne Montoya) Attestation To help prompt me to consider important information that might be impacting today's encounter and assessment, information from prior notes written by myself or my colleagues may have been "brought forward" into today's note. My signature on this note, however, is an attestation that I personally performed the exam, history, and/or decision-making noted today, and, unless otherwise indicated, the interactions with patient, family, and staff as well as the review of records all occurred today. I also attest that the listed assessment and stated plan reflect my best clinical judgment today based on the combination of historical information, prior notes, and today's exam/ interactions. When time spent is documented, it refers only to time spent today by the signer, or if indicated, combined time spent today by collaborating physician/nurse practitioner. (Luanne Montoya) Collaborating MD Comments Chart reviewed. Case discussed with palliative care PARTY CHIEF. Above note reviewed and I concur. . (Anatoliy Roach MD) Luanne Montoya Apr 04, 2017 16:35 Anatoliy Roach MD Jun 03, 2017 11:01
--- NOTE | 2017-04-04 17:27 | HHI.PR ---
Subjective Remarks 66 YO Bangl[place] female with Resp insuff, Myeloid leukemia Receving Chemo Desaturates On High flow 02 Feels burning in nose Wants to go back on PRB Objective Vital Signs Vital Signs Date Time Temp Pulse Resp B/P Pulse Ox O2 Delivery O2 Flow Rate FiO2 04/04/17 16:00 98.4 87 21 136/68 99 04/04/17 16:00 87 04/04/17 14:00 91 04/04/17 12:00 98.3 94 33 119/56 86 04/04/17 12:00 94 04/04/17 10:00 86 04/04/17 08:53 97 Partial Rebreather 12.00 04/04/17 08:00 98.3 79 24 134/63 99 04/04/17 08:00 79 04/04/17 07:00 90 Partial Non-Rebreather 15.00 04/04/17 06:00 79 04/04/17 05:46 93 Nasal Cannula 6.00 04/04/17 04:00 98.3 75 15 108/55 99 04/04/17 04:00 75 04/04/17 02:00 74 04/04/17 00:00 116 04/04/17 00:00 98.3 116 19 103/53 100 04/03/17 22:00 113 04/03/17 20:48 100 Partial Rebreather 100 04/03/17 20:00 98.2 77 22 128/57 97 04/03/17 20:00 77 04/03/17 20:00 100 Partial Non-Rebreather 15.00 04/03/17 20:00 75 26 120/56 100 04/03/17 18:45 83 04/03/17 18:30 84 04/03/17 18:15 84 04/03/17 18:15 98.8 85 103/55 99 04/03/17 18:00 83 04/03/17 17:30 89 04/03/17 17:30 89 28 91/52 97 I/O 04/03/17 04/03/17 04/03/17 04/04/17 04/04/17 04/04/17 07:00 15:00 23:00 07:00 15:00 23:00 Intake Total 100 ml 540 ml 346 ml 327 ml 480 ml Output Total 1700 ml 550 ml 1750 ml 1375 ml Balance 100 ml -1160 ml -204 ml -1423 ml -895 ml Intake Oral 540 ml 180 ml 480 ml IV Total 100 ml 0 ml 346 ml 147 ml 0 ml Output Urine Total 1700 ml 550 ml 1750 ml 1375 ml # Voids 3 # Bowel Movements 0 Result Diagram: 04/04/1751504/04/17515 Objective Remarks GENERAL: WBWn Female, mild sob SKIN: Warm and dry. HEAD: Normocephalic. EYES: No scleral icterus. No injection or drainage. NECK: Supple, trachea midline. No JVD or lymphadenopathy. CARDIOVASCULAR: Regular rate and rhythm without murmurs, gallops, or rubs. RESPIRATORY: Breath sounds equal bilaterally. No accessory muscle use. GASTROINTESTINAL: Abdomen soft, non-tender, nondistended. MUSCULOSKELETAL: No cyanosis, or edema. BACK: Nontender without obvious deformity. No CVA tenderness. A/P Assessment and Plan Resp Insuff Hypoxia Left basal infilt myeloid Leukemia HTN Partial sz PLAN: Put back on PRB Wean 02 to keep sat >90% Aerosol nebs Chemo per Dr.Latif KRUEGER pt and Family at [facility]. Jorge Thibodeaux MD Apr 04, 2017 17:27
--- NOTE | 2017-04-04 18:19 | HHI.PR ---
Subjective Interval History Alert, oriented, still having problems with dyspnea, on nonrebreather, some anxiety about prognosis, pain bilaterally under her rib cage, no cough Review of Systems Constitutional Constitutional Remarks 10 systems reviewed and otherwise negative Vitals/Results Intake & Output 04/03/17 04/03/17 04/04/17 15:00 23:00 07:00 Intake Total 540 ml 346 ml 327 ml Output Total 1700 ml 550 ml 1750 ml Balance -1160 ml -204 ml -1423 ml Intake Oral 540 ml 180 ml IV Total 0 ml 346 ml 147 ml Output Urine Total 1700 ml 550 ml 1750 ml Vital Signs Vital Signs Date Time Temp Pulse Resp B/P Pulse Ox O2 Delivery O2 Flow Rate FiO2 04/04/17 18:00 89 04/04/17 16:00 98.4 87 21 136/68 99 04/04/17 16:00 87 04/04/17 14:00 91 04/04/17 12:00 98.3 94 33 119/56 86 04/04/17 12:00 94 04/04/17 10:00 86 04/04/17 08:53 97 Partial Rebreather 12.00 04/04/17 08:00 98.3 79 24 134/63 99 04/04/17 08:00 79 04/04/17 07:00 90 Partial Non-Rebreather 15.00 04/04/17 06:00 79 04/04/17 05:46 93 Nasal Cannula 6.00 04/04/17 04:00 98.3 75 15 108/55 99 04/04/17 04:00 75 04/04/17 02:00 74 04/04/17 00:00 116 04/04/17 00:00 98.3 116 19 103/53 100 04/03/17 22:00 113 04/03/17 20:48 100 Partial Rebreather 100 04/03/17 20:00 98.2 77 22 128/57 97 04/03/17 20:00 77 04/03/17 20:00 100 Partial Non-Rebreather 15.00 04/03/17 20:00 75 26 120/56 100 04/03/17 18:45 83 04/03/17 18:30 84 CBC/BMP: 04/04/17 0516 04/04/17 0516 Lab Results Laboratory Tests Test 04/04/17 05:16 White Blood Count 24.5 TH/MM3 Red Blood Count 2.63 MIL/MM3 Hemoglobin 7.9 GM/DL Hematocrit 23.6 % Mean Corpuscular Volume 89.6 FL Mean Corpuscular Hemoglobin 30.1 PG Mean Corpuscular Hemoglobin 33.6 % Concent Red Cell Distribution Width 17.9 % Platelet Count 88 TH/MM3 Mean Platelet Volume 8.6 FL Sodium Level 137 MEQ/L Potassium Level 4.1 MEQ/L Chloride Level 93 MEQ/L Carbon Dioxide Level 36.6 MEQ/L Anion Gap 7 MEQ/L Blood Urea Nitrogen 19 MG/DL Creatinine 0.92 MG/DL Estimat Glomerular Filtration 61 ML/MIN Rate Random Glucose 84 MG/DL Calcium Level 7.9 MG/DL Phosphorus Level 3.1 MG/DL Magnesium Level 2.3 MG/DL Digoxin Level 1.6 NG/ML Physical Exam General General Appearance: Well Developed, Well Nourished, No Acute Distress, Anxious , Obese Eyes Eye Exam: Pupils Equal, Pupils Reactive Ears & Nose Ears & Nose Exam: Nasal Mucosa Pyote Throat Throat Exam: Oral Mucosa Pyote & Moist Neck Neck Exam: Neck Supple, Trachea Midline Pulmonary Resp Exam: Breath Sounds Equal, Crackles, Decreased Bases Cardiology CV Exam: Regular, Normal Sinus Rhythm, Good Perfusion Gastrointestinal/Abdomen GI Exam: Soft, Non-Tender, Bowel Sounds Present, Non-Distended Musculoskeletal MS Exam: Normal Tone Integumentary Skin Exam: Warm, Dry Extremeties Extremities Exam: No Edema, Pedal Pulses Palpable Neurologic Neuro Exam: Alert, Awake, Oriented, Speech Clear, Moving All Extremities, No Focal Deficits Psychiatric Psych Exam: Appropriate Responses VTE Prophylaxis VTE Prophylaxis Device: SCDs Assessment/Plan Problem List: (1) Sepsis (2) Anemia (3) Thrombocytopenia (4) Elevated white blood cell count (5) Pneumonia (6) CKD (chronic kidney disease) stage 3, GFR 30-59 ml/min (7) AML (acute myeloid leukemia) (8) Low blood pressure (9) Tachycardia (10) Hx TIA/stroke w/o resid (11) hx cerebral aneurysm (12) Atrial fibrillation with RVR Assessment/Plan Assessment Tachycardia, better controlled today Sepsis Pneumonia Hypoxemia Anemia Thrombocytopenia Obesity Acute myeloid leukemia, Received Dacogen Acute kidney injury, improved Paroxysmal atrial tachycardia/atrial fibrillation 4.3 cm ascending aorta Left ventricular hypertrophy Normal ejection fraction History of TIA, chronic kidney disease, constipation, back pain, penicillin allergy, Management Amiodarone started Digoxin dose reduced Cardizem discontinued Continue Lopressor Continue antibiotics, currently on meropenem, infectious disease following Monitor CBC, hematology oncology following when necessary IV Lopressor for sustained heart rate above 120 Cardiology following Supplemental oxygen Follow renal function Follow electrolytes and replace as needed Possible need for transfusion This will be deferred to hematology oncology Discussed with patient in detail Discussed with nurse 35 minutes Problem Qualifiers (1) Sepsis: Qualified Code: A41.9 - Sepsis, due to unspecified organism (2) Anemia: Qualified Code: D64.9 - Anemia, unspecified type (3) Elevated white blood cell count: Qualified Code: D72.829 - Leukocytosis, unspecified type (4) Pneumonia: Qualified Code: J18.1 - Pneumonia of left lower lobe due to infectious organism (5) AML (acute myeloid leukemia): Qualified Code: C92.00 - Acute myeloid leukemia not having achieved remission (6) Low blood pressure: Qualified Code: I95.9 - Hypotension, unspecified hypotension type Qamar Paniagua MD Apr 04, 2017 18:19
[2017-04-04] MEDS: METOPROLOL TARTRATE 50 MG TAB PO SCH (21:38)
[2017-04-04] MEDS: lamoTRIgine 25 MG TAB PO SCH (21:39)
[2017-04-04] MEDS: TEMAZEPAM 15 MG CAP PO PRN (21:55)
[2017-04-04] MEDS: METOPROLOL TARTRATE 5 MG/5 ML VIAL IV PUSH PRN (22:42)
[2017-04-05] VITALS (16 sets, daily range): BP systolic 102–144; BP diastolic 58–73; PULSE 70–100; RESP 12–30; TEMP 97.9–98.9; O2SAT 98–100
[2017-04-05] MEDS: ACETAMINOPHEN/HYDROcodone 325 MG/10 MG TAB PO PRN ×4 (01:37→21:11)
[2017-04-05] MEDS: LEVOTHYROXINE SODIUM 100 MCG TAB PO SCH (05:20)
[2017-04-05] MEDS: INSULIN ASPART SUPPLEMENTAL SCALE SQ SCH ×4 (05:21→21:00)
[2017-04-05 06:48] LABS: AUTOMATED NEUTROPHIL # 3.5 TH/MM3 (1.8-7.7); BASOPHIL # 0.6 TH/MM3 (0-0.2); EOSINOPHIL # 0.1 TH/MM3 (0-0.4); EOSINOPHIL % 0.3 % (0.0-4.0); HEMATOCRIT 24.9 % (35.0-46.0); LYMPH % 11.2 % (9.0-44.0); LYMPHOCYTE # 2.2 TH/MM3 (1.0-4.8); MEAN CORPUSCULAR HEMOGLOBIN 29.7 PG (27.0-34.0); MONO % 67.5 % (0.0-8.0); PLATELET COUNT 84 TH/MM3 (150-450); RED BLOOD COUNT 2.77 MIL/MM3 (4.00-5.30); RED CELL DISTRIBUTION WIDTH 17.7 % (11.6-17.2); WHITE BLOOD COUNT 19.3 TH/MM3 (4.0-11.0)
[2017-04-05 06:57] LABS: HEMO FLAGS AUTO DIFF
--- NOTE | 2017-04-05 08:08 | PD.ONC.PN ---
Subjective Subjective Remarks Patient seen and examined, vital signs, labs, medications and overnight events reviewed. She received her third dose of Dacogen yesterday. The patient reports getting anxious after receiving the Dacogen, she tells me she relaxed after receiving pain medication. She continues to report pain in the epigastric area and along the lower aspect of her anterior ribs as well as her mid back. She remains hypoxic when not on oxygen supplementation, this morning her heart rate within normal limits and her cardiac rhythm is regular (appears to be in sinus on cardiac rehab nurse). No fevers documented over the past 24 hours. Objective Data Date Time Temp Pulse Resp B/P Pulse Ox O2 Delivery O2 Flow Rate FiO2 04/05/17 06:00 77 04/05/17 04:00 78 04/05/17 04:00 98.4 74 125/58 98 04/05/17 02:00 73 04/05/17 00:00 98.9 100 30 102/58 98 04/05/17 00:00 76 04/04/17 22:00 126 04/04/17 21:57 96 Partial Rebreather 15.00 04/04/17 20:40 96 High Flow Nasal Cannula 20.00 80 04/04/17 20:35 97 Partial Rebreather 15.00 04/04/17 20:00 82 04/04/17 20:00 98.4 81 14 126/58 98 04/04/17 19:00 95 Nasal Cannula 6.00 04/04/17 18:00 89 04/04/17 16:00 98.4 87 21 136/68 99 04/04/17 16:00 87 04/04/17 14:00 91 04/04/17 12:00 98.3 94 33 119/56 86 04/04/17 12:00 94 04/04/17 10:00 86 04/04/17 08:53 97 Partial Rebreather 12.00 04/05/17 04/05/17 04/05/17 07:00 15:00 23:00 Intake Total 355 ml Output Total 800 ml Balance -445 ml Result Diagram: 04/05/17 0512 04/04/17 0516 Laboratory Results Laboratory Tests Test 04/05/17 05:12 White Blood Count 19.3 TH/MM3 Red Blood Count 2.77 MIL/MM3 Hemoglobin 8.2 GM/DL Hematocrit 24.9 % Mean Corpuscular Volume 90.0 FL Mean Corpuscular Hemoglobin 29.7 PG Mean Corpuscular Hemoglobin 33.0 % Concent Red Cell Distribution Width 17.7 % Platelet Count 84 TH/MM3 Mean Platelet Volume 8.6 FL Neutrophils (%) (Auto) 18.0 % Lymphocytes (%) (Auto) 11.2 % Monocytes (%) (Auto) 67.5 % Eosinophils (%) (Auto) 0.3 % Basophils (%) (Auto) 3.0 % Neutrophils # (Auto) 3.5 TH/MM3 Lymphocytes # (Auto) 2.2 TH/MM3 Monocytes # (Auto) 13.0 TH/MM3 Eosinophils # (Auto) 0.1 TH/MM3 Basophils # (Auto) 0.6 TH/MM3 CBC Comment AUTO DIFF Administered Medications Medications (Trade) Dose Ordered Sig/Tylor Route PRN Reason Start Time Stop Time Status Last Admin Dose Admin Sodium Chloride (NS Flush) 2 ml BID IV FLUSH 03/26/17 09:00 04/04/17 21:39 Acetaminophen (Tylenol) 650 mg Q4H PRN PO TEMP > 100.4 03/25/17 23:15 03/30/17 08:26 Ondansetron HCl (Zofran Inj) 4 mg Q6H PRN IVP NAUSEA OR VOMITING 03/25/17 23:15 03/29/17 21:36 Acetaminophen (Tylenol) 650 mg Q6H PRN PO PAIN SCALE 1 TO 2 03/25/17 23:15 03/26/17 08:14 Famotidine (Pepcid) 10 mg BID PO 03/26/17 09:00 04/04/17 21:38 Temazepam (Restoril) 15 mg HS PRN PO insomnia 03/26/17 00:30 04/04/17 21:55 Allopurinol (Zyloprim) 100 mg BID PO 03/26/17 09:00 04/04/17 21:38 Nystatin (Mycostatin Liq) 5 ml QID SWISH-SWAL 03/26/17 18:00 04/04/17 21:37 Atorvastatin Calcium (Lipitor) 40 mg DAILY PO 03/28/17 09:00 04/04/17 08:11 Lamotrigine (LaMICtal) 50 mg HS PO 03/27/17 21:00 04/04/17 21:39 Levothyroxine Sodium (Synthroid) 100 mcg DAILY@06 PO 03/28/17 06:00 04/05/17 05:20 Acetaminophen/ Hydrocodone Bitart (Andrews 10-325 Mg) 1 tab Q4H PRN PO PAIN 7-10 03/28/17 09:15 04/05/17 05:20 Lorazepam 1 mg 1 mg Q6H PRN PO ANXIETY 03/28/17 09:15 Hold 04/03/17 06:52 Meropenem/Sodium Chloride (Merrem Inj/NS Inj) 100 ml @ 200 mls/hr Q8H IV 03/31/17 14:00 04/04/17 22:00 Senna/Docusate Sodium (Ramya-Colace) 1 tab BID PO 03/31/17 21:00 04/04/17 21:38 Magnesium Hydroxide (Milk Of Magnesia Liq) 30 ml Q12H PRN PO SEE LABEL COMMENTS 03/31/17 14:00 04/01/17 08:15 Bisacodyl (Dulcolax Supp) 10 mg DAILY PRN RECTAL SEE LABEL COMMENTS 03/31/17 14:00 04/01/17 08:14 Lactulose (Lactulose Liq) 30 ml DAILY PRN PO SEE LABEL COMMENTS 03/31/17 14:00 04/01/17 08:13 Metoprolol Tartrate (Lopressor Inj) 2.5 mg Q2H PRN IV PUSH tachycardia 04/02/17 20:15 04/04/17 22:42 Furosemide (Lasix Inj) 40 mg BID IV PUSH 04/03/17 09:00 04/04/17 21:37 Potassium Phosphate (K-Phos) 2,000 mg Q4H PRN PO For Phosphorus < 2.5 mg/dL 04/03/17 08:30 04/03/17 14:23 Metoprolol Tartrate (Lopressor) 50 mg BID PO 04/04/17 21:00 04/04/17 21:38 Amiodarone HCl (Cordarone) 200 mg DAILY PO 04/04/17 09:00 04/04/17 09:50 Objective Remarks GENERAL PHYSICAL APPEARANCE: Ms. Richard is a middle-aged female, she is laying in bed and is in no acute distress. She is able to speak to me in almost full sentences. HEENT: Head is atraumatic, normocephalic, conjunctivae are pale. Sclerae are anicteric, EOMI, PERRLA. ORAL EXAM: She has thrush no longer apparent. NECK: No cervical lymphadenopathy. RESPIRATORY: Decreased bibasilar breath sounds left greater than right. Some crackles noted. CARDIOVASCULAR: regular rhythm, regular rate, distant sounding heart sounds. rubs or gallops. She does have a systolic murmur heard over the aortic area. ABDOMEN: Obese belly, soft and nontender, nondistended. No palpable organ enlargement. Tympanic to percussion. LOWER EXTREMITIES: No pretibial edema or calf tenderness. MUSCULOSKELETAL: Adequate muscle mass, tone and strength. Assessment/Plan Problem List: (1) AML (acute myeloid leukemia) Status: Acute Plan: --Bone marrow biopsy indicates findings consistent with AML. FLT-3, CEPBA and NPM-1 analysis pending to help us prognosticate further, cytogenetics are pending. -- poor candidate for intensive induction remission therapy with anthracycline/ Cytarabine or HiDAC due to her cardiac and pulmonary issues and borderline performance status. --on allopurinol for tumor lysis prophylaxis --03/30/17: Dacogen day 1 started --03/31/17: [place] [facility] [place], tachycardia, hypotension --04/01: hold Dacogen. patient remains hypotensive, tachycardic, hypoxic -- 04/03 and 04/04/2017: Day 2 and day 3 Dacogen delivered. (2) Atrial fibrillation with RVR Status: Acute Plan: -- A. fib with RVR associated with transient chest pain: --cardiology following --on digoxin Assessment Ms. Richard is a 66-year-old female with a 3-week history of progressive malaise, fatigue and weakness. She reports soreness of the throat and a dry cough, both of which have been chronic. She presented to the emergency department for further workup and management because her symptoms of fatigue progressed to the point where she had difficulty walking from her bedroom to her restroom. She called EMS last night due to the severity of the symptoms. Blood work performed in the emergency department indicates findings consistent with anemia, thrombocytopenia, her WBCs are grossly abnormal with findings of numerous immature cells and blasts in the peripheral circulation. 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 Peripheral smear was formally reviewed by our hematocrit pathologist who assessed the findings to be consistent with a high- grade myeloid malignancy most consistent with acute myeloid leukemia. Plan 1. Acute myeloid leukemia: Initiated on systemic therapy with Dacogen because she was not a good candidate for induction systemic therapy with an anthracycline plus cytarabine. Continue Dacogen, today will be day 4. Monitor daily I/Os to maintain control to slightly negative fluid balance. 2. A. fib with RVR: Rate controlled this morning; appears to be in sinus rhythm on the cardiac rehab nurse. On amiodarone and digoxin. 3. Hypoxic respiratory failure: Likely secondary to pulmonary edema from volume overload. She has been effectively diuresed and is stable from a respiratory standpoint today. 4. On empiric antibiotic therapy with meropenem for suspected pneumonia. She is afebrile at this time. 5. Start on Lovenox for DVT prophylaxis at 40 mg subcutaneous every 24 hours. Problem Qualifiers (1) AML (acute myeloid leukemia): Qualified Code: C92.00 - Acute myeloid leukemia not having achieved remission Roberto Yarbrough MD Apr 05, 2017 08:08
--- NOTE | 2017-04-05 08:11 | EKG ---
Date Performed: 04/04/2017 Time Performed: 08:57:04 PTAGE: 67 years EKG: Sinus rhythm LOW QRS VOLTAGE IN PRECORDIAL LEADS BORDERLINE ECG PREVIOUS TRACING : 03/31/2017 12.43 DOCTOR: Burak Wang Interpretating Date/Time 04/05/2017 08:05:48
[2017-04-05 08:22] LABS: BANDS 3 % (0-6); BLASTS 34 % (0-0); METAMYELOCYTES 3 % (0-1); MYELOCYTES 4 % (0-0); NEUTROPHIL # MANUAL DIFF 7.7 TH/MM3 (1.8-7.7); POLYS (SEG NEUTROPHILS) 30 % (16-70); WBC DIFF SAMPLE 100
[2017-04-05 08:26] LABS: PLATELET ESTIMATE SMEAR LOW (NORMAL); PLATELET MORPHOLOGY NORMAL (NORMAL); SCAN/DIFF FINAL DIFF MANUAL
--- NOTE | 2017-04-05 08:48 | PD.CARD.PN ---
Subjective Subjective Remarks Denies dyspnea, pain, dizziness, nausea, palpitations. Objective Medications Item Value Date Time Enoxaparin Sodium 40 mg 04/05/17 0900 (Lovenox Inj) Q24H/SQ Metoprolol 50 mg 04/04/17 2100 Tartrate BID/PO 04/04/172137 (Lopressor) Digoxin 0.125 mg 04/04/17 0900 (Lanoxin) DAILY/PO Amiodarone HCl 200 mg 04/04/17 0900 (Cordarone) DAILY/PO 04/04/17 0950 Furosemide 40 mg 04/03/17 0900 (Lasix Inj) BID/IV PUSH 04/04/172136 Atorvastatin 40 mg 03/28/17 0900 Calcium DAILY/PO 04/04/17 0811 (Lipitor) Vital Signs / I&O Vital Signs Date Time Temp Pulse Resp B/P Pulse Ox O2 Delivery O2 Flow Rate FiO2 04/05/17 07:00 100 Partial Non-Rebreather 12.00 04/05/17 06:00 77 04/05/17 04:00 78 04/05/17 04:00 98.4 74 125/58 98 04/05/17 02:00 73 04/05/17 00:00 98.9 100 30 102/58 98 04/05/17 00:00 76 04/04/17 22:00 126 04/04/17 21:57 96 Partial Rebreather 15.00 04/04/17 20:40 96 High Flow Nasal Cannula 20.00 80 04/04/17 20:35 97 Partial Rebreather 15.00 04/04/17 20:00 82 04/04/17 20:00 98.4 81 14 126/58 98 04/04/17 19:00 95 Nasal Cannula 6.00 04/04/17 18:00 89 04/04/17 16:00 98.4 87 21 136/68 99 04/04/17 16:00 87 04/04/17 14:00 91 04/04/17 12:00 98.3 94 33 119/56 86 04/04/17 12:00 94 04/04/17 10:00 86 04/04/17 08:53 97 Partial Rebreather 12.00 I/O 04/04/17 04/04/17 04/04/17 04/05/17 04/05/1717 07:00 15:00 23:00 07:00 15:00 23:00 Intake Total 327 ml 480 ml 1044 ml 355 ml Output Total 1750 ml 1375 ml 760 ml 800 ml Balance -1423 ml -895 ml 284 ml -445 ml Intake Oral 180 ml 480 ml 655 ml 355 ml IV Total 147 ml 0 ml 389 ml Output Urine Total 1750 ml 1375 ml 760 ml 800 ml # Bowel Movements 0 0 Physical Exam GENERAL: Well developed, well nourished. No acute distress. HEENT: Jugular venous pressure difficult to assess. CHEST: Lungs clear to auscultation anteriorly. CARDIAC: Regular rate and rhythm without S3, S4, or murmur. ABDOMEN: Soft, nontender, no hepatosplenomegaly. Bowel sounds present. EXTREMITIES: No clubbing, cyanosis, or edema. Laboratory Laboratory Tests Test 04/05/17 05:12 White Blood Count 19.3 TH/MM3 Red Blood Count 2.77 MIL/MM3 Hemoglobin 8.2 GM/DL Hematocrit 24.9 % Mean Corpuscular Volume 90.0 FL Mean Corpuscular Hemoglobin 29.7 PG Mean Corpuscular Hemoglobin 33.0 % Concent Red Cell Distribution Width 17.7 % Platelet Count 84 TH/MM3 Mean Platelet Volume 8.6 FL Neutrophils (%) (Auto) 18.0 % Lymphocytes (%) (Auto) 11.2 % Monocytes (%) (Auto) 67.5 % Eosinophils (%) (Auto) 0.3 % Basophils (%) (Auto) 3.0 % Neutrophils # (Auto) 3.5 TH/MM3 Lymphocytes # (Auto) 2.2 TH/MM3 Monocytes # (Auto) 13.0 TH/MM3 Eosinophils # (Auto) 0.1 TH/MM3 Basophils # (Auto) 0.6 TH/MM3 CBC Comment AUTO DIFF Differential Total Cells 100 Counted Neutrophils % (Manual) 30 % Band Neutrophils % 3 % Lymphocytes % 11 % Monocytes % 15 % Neutrophils # (Manual) 7.7 TH/MM3 Metamyelocytes 3 % Myelocytes 4 % Differential Comment FINAL DIFF MANUAL Blastocytes 34 % Platelet Estimate LOW Platelet Morphology Comment NORMAL Red Cell Morphology Comment NORMAL Assessment and Plan Problem List: (1) Paroxysmal atrial fibrillation Assessment and Plan: Remains in sinus rhythm on oral digoxin, metoprolol, Amiodarone. No new recommendations. Will f/u as needed. (2) Hypertension Assessment and Plan: Stable. Normotensive. (3) Chest pain Assessment and Plan: No further CP's, arm pains except minimal chest discomfort with deep inspiration. Rec conservative evaluation, management. (4) AML (acute myeloid leukemia) Code Status alternative code Discussed Condition With patient Problem Qualifiers (1) Hypertension: Qualified Code: I10 - Essential hypertension (2) Chest pain: Qualified Code: R07.9 - Chest pain, unspecified type (3) AML (acute myeloid leukemia): Qualified Code: C92.00 - Acute myeloid leukemia not having achieved remission Alfie Jefferson MD Apr 05, 2017 08:48
[2017-04-05] MEDS: SODIUM CHLORIDE 0.9% FLUSH 10 ML FLUSH IV FLUSH SCH ×2 (09:39→21:12)
[2017-04-05] MEDS: ATORVASTATIN 40 MG TAB PO SCH (09:39)
[2017-04-05] MEDS: NYSTATIN SUSP 500,000 U/5 ML CUP SWISH-SWAL SCH ×4 (09:39→21:10)
[2017-04-05] MEDS: DIGOXIN 0.125 MG TAB PO SCH (09:39)
[2017-04-05] MEDS: DOCUSATE SODIUM 50 MG/SENNA 8.6 MG TAB PO SCH ×2 (09:40→21:11)
[2017-04-05] MEDS: FAMOTIDINE 20 MG TAB PO SCH ×2 (09:40→21:11)
[2017-04-05] MEDS: ENOXAPARIN SODIUM 40 MG/0.4 ML SYRINGE SQ SCH (09:40)
[2017-04-05] MEDS: AMIODARONE 200 MG TAB PO SCH (09:40)
[2017-04-05] MEDS: FUROSEMIDE 40 MG/4 ML VIAL IV PUSH SCH ×2 (09:40→21:16)
[2017-04-05] MEDS: METOPROLOL TARTRATE 50 MG TAB PO SCH ×2 (09:41→21:11)
[2017-04-05] MEDS: ALLOPURINOL 100 MG TAB PO SCH ×2 (09:41→21:11)
--- NOTE | 2017-04-05 12:20 | HHI.IDPN ---
Note Infectious Disease Note Patient on O2 NRM. No complaints. Awake and responsive. looks comfortable. No sputum production. No cough. Afebrile. WBC decreasing. Diagnosed with high-grade myeloid neoplasm. Receiving chemo. PAST MEDICAL HISTORY 1. Hypertension 2. Hypothyroidism 3. Chronic obstructive pulmonary disease 4. partial seizures 5. intracranial aneurysm 6. anxiety disorder. 7. Appendectomy. 8. The vein surgery in the left leg. ALLERGIES PENICILLIN OBJECTIVE: Vital Signs Date Time Temp Pulse Resp B/P Pulse Ox O2 Delivery O2 Flow Rate FiO2 04/05/17 10:00 76 04/05/17 08:00 98.0 81 18 144/63 98 04/05/17 08:00 81 04/05/17 07:00 100 Partial Non-Rebreather 12.00 04/05/17 06:00 77 04/05/17 04:00 78 04/05/17 04:00 98.4 74 125/58 98 04/05/17 02:00 73 04/05/17 00:00 98.9 100 30 102/58 98 04/05/17 00:00 76 04/04/17 22:00 126 04/04/17 21:57 96 Partial Rebreather 15.00 04/04/17 20:40 96 High Flow Nasal Cannula 20.00 80 04/04/17 20:35 97 Partial Rebreather 15.00 04/04/17 20:00 82 04/04/17 20:00 98.4 81 14 126/58 98 04/04/17 19:00 95 Nasal Cannula 6.00 04/04/17 18:00 89 04/04/17 16:00 98.4 87 21 136/68 99 04/04/17 16:00 87 04/04/17 14:00 91 04/04/17 04/04/17 04/05/17 15:00 23:00 07:00 Intake Total 480 ml 1044 ml 355 ml Output Total 1375 ml 760 ml 800 ml Balance -895 ml 284 ml -445 ml Intake Oral 480 ml 655 ml 355 ml IV Total 0 ml 389 ml Output Urine Total 1375 ml 760 ml 800 ml # Bowel Movements 0 0 Laboratory Tests Test 04/04/17 04/05/17 05:16 05:12 White Blood Count 24.5 TH/MM3 19.3 TH/MM3 Red Blood Count 2.63 MIL/MM3 2.77 MIL/MM3 Hemoglobin 7.9 GM/DL 8.2 GM/DL Hematocrit 23.6 % 24.9 % Mean Corpuscular Volume 89.6 FL 90.0 FL Mean Corpuscular Hemoglobin 30.1 PG 29.7 PG Mean Corpuscular Hemoglobin 33.6 % 33.0 % Concent Red Cell Distribution Width 17.9 % 17.7 % Platelet Count 88 TH/MM3 84 TH/MM3 Mean Platelet Volume 8.6 FL 8.6 FL Neutrophils (%) (Auto) 18.0 % Lymphocytes (%) (Auto) 11.2 % Monocytes (%) (Auto) 67.5 % Eosinophils (%) (Auto) 0.3 % Basophils (%) (Auto) 3.0 % Neutrophils # (Auto) 3.5 TH/MM3 Lymphocytes # (Auto) 2.2 TH/MM3 Monocytes # (Auto) 13.0 TH/MM3 Eosinophils # (Auto) 0.1 TH/MM3 Basophils # (Auto) 0.6 TH/MM3 CBC Comment AUTO DIFF Differential Total Cells 100 Counted Neutrophils % (Manual) 30 % Band Neutrophils % 3 % Lymphocytes % 11 % Monocytes % 15 % Neutrophils # (Manual) 7.7 TH/MM3 Metamyelocytes 3 % Myelocytes 4 % Differential Comment FINAL DIFF MANUAL Blastocytes 34 % Platelet Estimate LOW Platelet Morphology Comment NORMAL Red Cell Morphology Comment NORMAL Laboratory Tests Test 04/04/17 05:16 Sodium Level 137 MEQ/L Potassium Level 4.1 MEQ/L Chloride Level 93 MEQ/L Carbon Dioxide Level 36.6 MEQ/L Anion Gap 7 MEQ/L Blood Urea Nitrogen 19 MG/DL Creatinine 0.92 MG/DL Estimat Glomerular Filtration 61 ML/MIN Rate Random Glucose 84 MG/DL Calcium Level 7.9 MG/DL Phosphorus Level 3.1 MG/DL Magnesium Level 2.3 MG/DL IMAGING: Chest X-Ray 04/04/17 06 Signed Impressions: Service Date/Time: Tuesday, April 04, 2017 04:43 - CONCLUSION: Slight improved aeration right lower lobe. Antwan Jensen MD Chest X-Ray 04/02/17 0600 Signed Impressions: Service Date/Time: Sunday, April 02, 2017 03:28 - CONCLUSION: No significant change has occurred. Antwan Jensen MD Chest X-Ray 04/01/17 0000 Signed Impressions: Service Date/Time: Saturday, April 01, 2017 09:23 - CONCLUSION: 1. Stable left basilar opacity likely representing pleural effusion with associated volume loss and/or consolidation. 2. There is new diffuse hazy opacity over the right lung. However, given the patient's rotation this may explain the appearance and interval change. Suggest attention to this on followup imaging. Raoul Jeffries MD PHYSICAL EXAMINATION: GENERAL: No acute distress. HEAD, EYES, EARS, NOSE, AND THROAT: No icterus. Moist mucosa. NECK: Supple without adenopathy. LUNGS: Decreased breath sounds. HEART: Irregular rate and rhythm. No murmurs or rubs or gallops. ABDOMEN: Bowel sounds present, obese, soft, nontender. EXTREMITIES: No clubbing or cyanosis or edema. SKIN: No rash. NEUROLOGIC: Nonfocal. PSYCHIATRIC: Calm. IMPRESSION 1. Sepsis. Appears stable. 2. Pneumonia. lung infiltrates. Decreased O2 saturation. Still with infiltrate at left lower lung. did not respond to aztreonam and levaquin. 3. Leukocytosis. Not certain it is due to infection. decreasing. 4. Acute kidney disease. improving. 5. Acute myeloid leukemia. Receiving chemo. 6. Penicillin allergy. RECOMMENDATIONS 1. Continue Meropenem. 2. Check procalcitonin level. 3. Monitor the temperature 4. Monitor white blood cell count. 5. Monitor clinical status. I will be off 04/06 - 04/09 back 04/10. Other ID MD covering. Brody Reich MD Apr 05, 2017 12:20
--- NOTE | 2017-04-05 13:24 | HHI.CCPN ---
Subjective Remarks/Hospital Course This is a 66-year-old female, that presented to the hospital with shortness of breath productive cough and generalized fatigue upon admission. Subsequent laboratory and imaging studies reveal a pneumonia. 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 Since admission the patient was placed on empiric antibiotic Azactam. Blood culture negative growth today, urine culture showed 50-100,000 of gram-positive chance. Hematology oncology initiated Dacogen first dose yesterday. The patient was noted to have a cardiac rhythm A. fib RVR cardiology was consulted, Dr. Chang the patient was placed on amiodarone 400 mg twice a day received a dose of digoxin last evening. The patient early this a.m., had A. fib RVR with dyspnea and hypoxemia with O2 sat duration in the 80s. Critical care medicine was consulted. Upon meeting and evaluating the patient the patient was noted to be in a sinus tachycardia with a heart rate [id number], with an O2 saturation on nonrebreather of 91-92%. The patient received 20 mg IV Lasix upon arrival, with subsequent diuresis of approximately 1 L, and decreased in FiO2 requirements. The patient was noted to have a significant leukocytosis, with 1 % bands, pro-calcitonin level was drawn ID was consulted. 04/01: The patient required increasing FiO2 requirements overnight. The patient currently on nonrebreather mask O2 saturation 94%. Stat chest x-ray obtain results pending, stat ABG results pending. Discussion with patient and son regarding the probable likelihood of intubation this a.m.. All questions answered. The patient remains nothing by mouth at this time. ID was consulted yesterday regarding the leukocytosis and elevation in temperature, following recommendations. 04/02: No acute events overnight. Patient's oxygen requirements remain at 4 L/m nasal cannula. Palliative care team in extensive discussion with family, patient CODE STATUS been made DNR/DNI. Heart healthy diet has been resumed. 04/03: Overnight the patient, had increasing FiO2 requirements required partial nonrebreather mask, and also received 3 doses of Ativan. The patient became tachycardic and received metoprolol IV subsequently at 2 AM went into A. fib RVR and received 15 mg Cardizem IV push. The patient currently telemetry revealing ST 113. Thomson reinserted with strict TARAN hourly monitoring patient to receive Dacogen today. 04/04: Slight improvement in chest x-ray today. Patient still remains on high FiO2 requirements. Patient continues on twice a day diuretic dosing. Continue hourly monitoring for even I's and O's every 24 hours when patients undergoing Dacogen therapy. Patient to have therapy and still today third day of dosing. A chin complains of pain on inspiration well controlled with PRN Lortab The patient's tolerating a diet. Subjective 04/05 - last dose of Dectabine 40 mg 1 today. Currently on partial nonrebreather mask. Remains tachycardic. Tolerating diet. Positive BM. Objective Vital Signs Date Time Temp Pulse Resp B/P Pulse Ox O2 Delivery O2 Flow Rate FiO2 04/05/17 12:00 72 04/05/17 12:00 98.6 24 124/73 100 04/05/17 07:00 Partial Non-Rebreather 12.00 04/04/17 20:40 80 Intake and Output 04/04/17 04/04/17 04/05/17 08:00 16:00 00:00 Intake Total 327 ml 480 ml 1044 ml Output Total 1750 ml 1375 ml 760 ml Balance -1423 ml -895 ml 284 ml Result Diagram: 04/05/17 0512 04/04/17 0516 Other Results Microbiology Date/Time Procedure Status Source Growth 03/31/17 18:45 Aerobic Blood Culture - Final Complete Blood Other NO GROWTH IN 5 DAYS 03/31/17 18:45 Anaerobic Blood Culture - Final Complete Blood Other NO GROWTH IN 5 DAYS Imaging Last Impressions Chest X-Ray 04/04/17 0600 Signed Impressions: Service Date/Time: Tuesday, April 04, 2017 04:43 - CONCLUSION: Slight improved aeration right lower lobe. Antwan Jensen MD Bone Biopsy CT 03/26/17 0000 Signed Impressions: Service Date/Time: Sunday, March 26, 2017 14:48 - CONCLUSION: 1. Uncomplicated CT guided bone marrow aspirate. 2. Uncomplicated CT guided bone marrow biopsy. Raoul Jeffries MD Lumbar Spine CT [id number]/25/[id number] Signed Impressions: Service Date/Time: Sunday, March 26, 2017 01:12 - CONCLUSION: 1. Degenerative disc changes greatest at the L4-5 and L5-S1 levels with broad-based disc osteophyte complexes. There is lateral recess stenosis at the L5-S1 level. 2. Mild retrolisthesis of L5 on S1 with degenerative disc change and broad-based disc osteophyte complex. 3. Narrowing of the neuroforamina bilaterally at the L4-5 and L5-S1 levels. 4. Degenerative disc change. Balaji Solorio MD CT Angiography [id number]/25/[id number] Signed Impressions: Service Date/Time: Sunday, March 26, 2017 01:09 - CONCLUSION: 1. Mild consolidation along the left fissure and lower lobe. This could indicate early pneumonia. 2. No evidence of pulmonary embolism. Balaji Solorio MD Objective Remarks GENERAL: Obese female in no respiratory distress on NRb SKIN: Warm and dry. No rash HEAD: Atraumatic. Normocephalic. EYES: Pupils equal and round. No scleral icterus. No injection or drainage. ENT: No nasal bleeding or discharge. Mucous membranes pink and moist. NECK: Trachea midline. No JVD. CARDIOVASCULAR: Normal rate, regular rhythm. S1, S2. No S4. RESPIRATORY: No accessory muscle use. Clear to auscultation. Breath sounds equal bilaterally. GASTROINTESTINAL: Abdomen soft, protuberant ,non-tender, nondistended. No guarding. MUSCULOSKELETAL: Extremities without clubbing, cyanosis, or edema. No obvious deformities. NEUROLOGICAL: Awake and alert. RASS 0. GCS 15 No gross focal/sensory deficits. Follows commands in all 4 extremities. Procedures 04/02,04/03,04/04 Dacogen therapy Date of Insertion: Apr 03, 2017 A/P Assessment and Plan Assessment Sepsis A. fib RVR with conversion to Sinus tachycardia Acute Respiratory Insufficiency Pneumonia-left lower lobe (left basilar opacity) Persistent leukocytosis Bilateral Pleural effusions Acute myeloid leukemia Anemia/normocytic Thrombocytopenia CKD stage 3 H/O chronic HTN H/O cerebral aneurysm H/O CVA with residual weakness Hypothyroidism Mild protein calorie malnutrition Morbid obesity Chronic pain syndrome NOS Constipation-resolved Plan Neurologic: -GCS 15, appropriately responsive -Maintain sleep hygiene, avoid ICU delirium, maintains stimulation during the day - Restoril 15 mg at bedtime when necessary for insomnia, avoid multiple disruptions at night -Girard 10/325 PRN pain 7-10 - Acetaminophen for fever/pain 126 - Lamictal 50 mg at night -04/03 Discontinued Ativan Respiratory: -Maintain O2 sat greater than 92% -Scheduled continue bronchodilators 4 times a day scheduled -Wean O2 as tolerated -Maintain head of bed 30 -Lasix 40 mg increased to twice a day Cardiovascular: -Metoprolol 2.5 mg IV every 6 hours when necessary for heart rate greater than 100bpm -Cardiology following- Dr. Chang/ Ronny --04/04 Digoxin level 1.6 recheck in a.m. -Amiodarone 2000 mg/ day, atorvastatin 10 mg by mouth daily. Metoprolol 50 twice a day Digoxin 0.125 mg Management per Cardiology Renal: - Maintain thomson- patient receiving Dacogen therapy strict hourly I&O's indicated -- Strict I/Os FEN/GI: -Monitor electrolytes -Electrolyte replacement per ICU protocol -Heart healthy diet -Bowel regimen with Ramya-Colace Heme/ID: -Hematology oncology following Dr. Yarbrough -Allopurinol 100 mg twice a day continued per hematology oncology-prophylaxis for tumor lysis syndromeondansetron PRN for nausea -Dacogen 40 mg IV daily dosing per Hematology-Oncology schedule -PLT count 107, follow-up hematology oncology will transfuse for platelet count less than 50,000 Endocrine: -Levothyroxine 100 mcgs/day -Glucose monitoring per ICU protocol -- SSI Prophylaxis: GI Prophylaxis Pepcid DVT Prophylaxis -- SCDs No pharmacological DVT prophylaxis in the setting of thrombocytopenia defer to HematologyOncology Lines: PIV x 2 Dispo: Level 2 Discussed with PRESCHOOL DIRECTOR ,patient and son Tristan at bedside. Patient CODE STATUS changed to intubation only after extensive discussion with palliative care and other family members. . Patient's pulmonary status continues to be tenuous possibility of intubation. Jeffrey Mercado MD Apr 05, 2017 13:24 Jeffrey Mercado MD Apr 05, 2017 13:24
[2017-04-05] MEDS ORDERED: GRANISETRON HCL 1 MG/ML VIAL IV ONE (14:00)
[2017-04-05] MEDS ORDERED: GRANISETRON HCL 1 MG TAB PO ONE ×2 (14:00→17:00)
--- NOTE | 2017-04-05 16:10 | HHI.PR ---
Subjective Interval History Alert, oriented, anxious, pain over the lower rib cage area bilaterally, relatively feeling better today Review of Systems Constitutional Constitutional Remarks 10 systems reviewed and otherwise negative Vitals/Results Intake & Output 04/04/17 04/04/17 04/05/17 15:00 23:00 07:00 Intake Total 480 ml 1044 ml 355 ml Output Total 1375 ml 760 ml 800 ml Balance -895 ml 284 ml -445 ml Intake Oral 480 ml 655 ml 355 ml IV Total 0 ml 389 ml Output Urine Total 1375 ml 760 ml 800 ml # Bowel Movements 0 0 Vital Signs Vital Signs Date Time Temp Pulse Resp B/P Pulse Ox O2 Delivery O2 Flow Rate FiO2 04/05/17 12:00 72 04/05/17 12:00 98.6 72 24 124/73 100 04/05/17 10:30 98 Partial Rebreather 15.00 04/05/17 10:30 98 04/05/17 10:00 76 04/05/17 08:00 98.0 81 18 144/63 98 04/05/17 08:00 81 04/05/17 07:00 100 Partial Non-Rebreather 12.00 04/05/17 06:00 77 04/05/17 04:00 78 04/05/17 04:00 98.4 74 125/58 98 04/05/17 02:00 73 04/05/17 00:00 98.9 100 30 102/58 98 04/05/17 00:00 76 04/04/17 22:00 126 04/04/17 21:57 96 Partial Rebreather 15.00 04/04/17 20:40 96 High Flow Nasal Cannula 20.00 80 04/04/17 20:35 97 Partial Rebreather 15.00 04/04/17 20:00 82 04/04/17 20:00 98.4 81 14 126/58 98 04/04/17 19:00 95 Nasal Cannula 6.00 04/04/17 18:00 89 CBC/BMP: 04/05/17 0512 04/04/17 0516 Lab Results Laboratory Tests Test 04/05/17 05:12 White Blood Count 19.3 TH/MM3 Red Blood Count 2.77 MIL/MM3 Hemoglobin 8.2 GM/DL Hematocrit 24.9 % Mean Corpuscular Volume 90.0 FL Mean Corpuscular Hemoglobin 29.7 PG Mean Corpuscular Hemoglobin 33.0 % Concent Red Cell Distribution Width 17.7 % Platelet Count 84 TH/MM3 Mean Platelet Volume 8.6 FL Neutrophils (%) (Auto) 18.0 % Lymphocytes (%) (Auto) 11.2 % Monocytes (%) (Auto) 67.5 % Eosinophils (%) (Auto) 0.3 % Basophils (%) (Auto) 3.0 % Neutrophils # (Auto) 3.5 TH/MM3 Lymphocytes # (Auto) 2.2 TH/MM3 Monocytes # (Auto) 13.0 TH/MM3 Eosinophils # (Auto) 0.1 TH/MM3 Basophils # (Auto) 0.6 TH/MM3 CBC Comment AUTO DIFF Differential Total Cells 100 Counted Neutrophils % (Manual) 30 % Band Neutrophils % 3 % Lymphocytes % 11 % Monocytes % 15 % Neutrophils # (Manual) 7.7 TH/MM3 Metamyelocytes 3 % Myelocytes 4 % Differential Comment FINAL DIFF MANUAL Blastocytes 34 % Platelet Estimate LOW Platelet Morphology Comment NORMAL Red Cell Morphology Comment NORMAL Physical Exam General General Appearance: Well Developed, Well Nourished, No Acute Distress, Anxious , Obese Eyes Eye Exam: Pupils Equal, Pupils Reactive Ears & Nose Ears & Nose Exam: Nasal Mucosa [place] Throat Throat Exam: Oral Mucosa [place] & Moist Neck Neck Exam: Neck Supple, Trachea Midline Pulmonary Resp Exam: Breath Sounds Equal, Crackles, Decreased Bases Cardiology CV Exam: Regular, Normal Sinus Rhythm, Good Perfusion Gastrointestinal/Abdomen GI Exam: Soft, Non-Tender, Bowel Sounds Present, Non-Distended Musculoskeletal MS Exam: Normal Tone Integumentary Skin Exam: Warm, Dry Extremeties Extremities Exam: No Edema, Pedal Pulses Palpable Neurologic Neuro Exam: Alert, Awake, Oriented, Speech Clear, Moving All Extremities, No Focal Deficits Psychiatric Psych Exam: Appropriate Responses VTE Prophylaxis VTE Prophylaxis Device: SCDs Assessment/Plan Problem List: (1) Sepsis (2) Anemia (3) Thrombocytopenia (4) Elevated white blood cell count (5) Pneumonia (6) CKD (chronic kidney disease) stage 3, GFR 30-59 ml/min (7) AML (acute myeloid leukemia) (8) Low blood pressure (9) Tachycardia (10) Hx TIA/stroke w/o resid (11) hx cerebral aneurysm (12) Atrial fibrillation with RVR Assessment/Plan Assessment Tachycardia, better today Sepsis Pneumonia Hypoxemia Anemia Thrombocytopenia Obesity Acute myeloid leukemia, Received Dacogen Acute kidney injury, improved Paroxysmal atrial tachycardia/atrial fibrillation 4.3 cm ascending aorta Left ventricular hypertrophy Normal ejection fraction History of TIA, chronic kidney disease, constipation, back pain, penicillin allergy, Management Amiodarone Digoxin Lopressor Continue antibiotics, currently on meropenem, infectious disease following Monitor CBC, hematology oncology following when necessary IV Lopressor for sustained heart rate above 120 Cardiology following Supplemental oxygen Follow renal function Follow electrolytes and replace as needed Possible need for transfusion Discussed with patient and her family at her bedside Discussed with oncologist Discussed with nurse 35 minutes Problem Qualifiers (1) Sepsis: Qualified Code: A41.9 - Sepsis, due to unspecified organism (2) Anemia: Qualified Code: D64.9 - Anemia, unspecified type (3) Elevated white blood cell count: Qualified Code: D72.829 - Leukocytosis, unspecified type (4) Pneumonia: Qualified Code: J18.1 - Pneumonia of left lower lobe due to infectious organism (5) AML (acute myeloid leukemia): Qualified Code: C92.00 - Acute myeloid leukemia not having achieved remission (6) Low blood pressure: Qualified Code: I95.9 - Hypotension, unspecified hypotension type Qamar Paniagua MD Apr 05, 2017 16:10
[2017-04-05] MEDS: MEROPENEM INJ 1,000 MG in SODIUM CHLORIDE 0.9% INJ 100 ML IV SCH ×2 (16:24→21:10)
--- NOTE | 2017-04-05 17:21 | HHI.PR ---
Subjective Remarks 66 YO [place] female with Resp insuff, Myeloid leukemia had Chemo On PRB Sat 100% mild sob Appetite fair Objective Vital Signs Vital Signs Date Time Temp Pulse Resp B/P Pulse Ox O2 Delivery O2 Flow Rate FiO2 04/05/17 16:00 98.1 73 13 141/66 100 04/05/17 15:00 72 15 120/65 100 04/05/17 14:00 71 12 122/61 100 04/05/17 13:00 70 13 129/66 100 04/05/17 12:00 72 04/05/17 12:00 98.6 72 24 124/73 100 04/05/17 10:30 98 Partial Rebreather 15.00 04/05/17 10:30 98 04/05/17 10:00 76 04/05/17 08:00 98.0 81 18 144/63 98 04/05/17 08:00 81 04/05/17 07:00 100 Partial Non-Rebreather 12.00 04/05/17 06:00 77 04/05/17 04:00 78 04/05/17 04:00 98.4 74 125/58 98 04/05/17 02:00 73 04/05/17 00:00 98.9 100 30 102/58 98 04/05/17 00:00 76 04/04/17 22:00 126 04/04/17 21:57 96 Partial Rebreather 15.00 04/04/17 20:40 96 High Flow Nasal Cannula 20.00 80 04/04/17 20:35 97 Partial Rebreather 15.00 04/04/17 20:00 82 04/04/17 20:00 98.4 81 14 126/58 98 04/04/17 19:00 95 Nasal Cannula 6.00 04/04/17 18:00 89 I/O 04/04/17 04/04/17 04/04/17 04/05/17 04/05/17 04/05/17 07:00 15:00 23:00 07:00 15:00 23:00 Intake Total 327 ml 480 ml 1044 ml 355 ml Output Total 1750 ml 1375 ml 760 ml 800 ml Balance -1423 ml -895 ml 284 ml -445 ml Intake Oral 180 ml 480 ml 655 ml 355 ml IV Total 147 ml 0 ml 389 ml Output Urine Total 1750 ml 1375 ml 760 ml 800 ml # Bowel Movements 0 0 Result Diagram: 04/05/17 0512 04/04/17 0516 Objective Remarks GENERAL: WBWn Female, mild sob SKIN: Warm and dry. HEAD: Normocephalic. EYES: No scleral icterus. No injection or drainage. NECK: Supple, trachea midline. No JVD or lymphadenopathy. CARDIOVASCULAR: Regular rate and rhythm without murmurs, gallops, or rubs. RESPIRATORY: Breath sounds equal bilaterally. No accessory muscle use. GASTROINTESTINAL: Abdomen soft, non-tender, nondistended. MUSCULOSKELETAL: No cyanosis, or edema. BACK: Nontender without obvious deformity. No CVA tenderness. A/P Assessment and Plan Resp Insuff Hypoxia Left basal infilt myeloid Leukemia HTN Partial sz PLAN: Put back on PRB Wean 02 to keep sat >90% Aerosol nebs DW pt and Family at BS. Will try VM to keep sat >90% Jorge Thibodeaux MD Apr 05, 2017 17:21
[2017-04-05] MEDS ORDERED: SODIUM CHLOR 0.9% IV ONE (18:00)
[2017-04-05] MEDS ORDERED: DECITABINE IV ONE (18:00)
[2017-04-05] MEDS: lamoTRIgine 25 MG TAB PO SCH (21:10)
[2017-04-05] MEDS: TEMAZEPAM 15 MG CAP PO PRN (21:11)
[2017-04-06] VITALS (26 sets, daily range): BP systolic 81–156; BP diastolic 53–76; PULSE 66–121; RESP 1–33; TEMP 97.9–98.3; O2SAT 82–100
[2017-04-06] MEDS: MEROPENEM INJ 1,000 MG in SODIUM CHLORIDE 0.9% INJ 100 ML IV SCH ×3 (05:12→20:51)
--- NOTE | 2017-04-06 05:31 | RADRPT ---
EXAM DATE/TIME: 04/06/2017 04:41 [facility] COMPARISON: CHEST SINGLE AP, April 04, 2017, 4:43. INDICATIONS : Evaluate for pnuemonia MEDICAL HISTORY : Cerebrovascular disease. Hypertension Seizures, Brain aneurysm SURGICAL HISTORY : None. ENCOUNTER: Subsequent ACUITY: 1 week PAIN SCORE: 7/10 LOCATION: Bilateral chest FINDINGS: Mild bibasilar consolidation and small effusions are again noted, not significantly changed. Streaky infiltrate in the left upper lung also similar to before. No pneumothorax seen. Mild cardiomegaly is stable. CONCLUSION: No significant change. Raoul Monroe MD on April 06, 2017 at 5:28 Board Certified Radiologist. This report was verified electronically.
[2017-04-06] MEDS: LEVOTHYROXINE SODIUM 100 MCG TAB PO SCH (06:24)
[2017-04-06] MEDS: INSULIN ASPART SUPPLEMENTAL SCALE SQ SCH ×4 (06:36→20:59)
[2017-04-06 08:27] LABS: HEMATOCRIT 23.8 % (35.0-46.0); MEAN CORPUSCULAR HEMOGLOBIN 29.7 PG (27.0-34.0); PLATELET COUNT 84 TH/MM3 (150-450); RED BLOOD COUNT 2.64 MIL/MM3 (4.00-5.30); RED CELL DISTRIBUTION WIDTH 18.4 % (11.6-17.2); WHITE BLOOD COUNT 13.8 TH/MM3 (4.0-11.0)
[2017-04-06 08:40] LABS: HEMO FLAGS AUTO DIFF
[2017-04-06 08:56] LABS: ANION GAP 4 MEQ/L (5-15); AST (GOT) 67 U/L (15-37); BICARBONATE 38.9 MEQ/L (21.0-32.0); BLOOD UREA NITROGEN 19 MG/DL (7-18); CHLORIDE 89 MEQ/L (98-107); GLOMERULAR FILTRATION RATE 65 ML/MIN (>89); SODIUM (NA) 132 MEQ/L (136-145)
[2017-04-06 08:57] LABS: ALT (GPT) 36 U/L (10-53)
[2017-04-06] MEDS: ALLOPURINOL 100 MG TAB PO SCH ×2 (09:00→20:49)
[2017-04-06] MEDS: SODIUM CHLORIDE 0.9% FLUSH 10 ML FLUSH IV FLUSH SCH ×2 (09:00→20:51)
[2017-04-06] MEDS: NYSTATIN SUSP 500,000 U/5 ML CUP SWISH-SWAL SCH ×4 (09:00→21:00)
[2017-04-06 09:11] LABS: ALKALINE PHOSPHATASE 111 U/L (45-117); DIGOXIN 1.6 NG/ML (0.8-2.0); TOTAL BILIRUBIN ADULT 0.5 MG/DL (0.2-1.0)
[2017-04-06 09:12] LABS: CREATINE KINASE 78 U/L (26-192)
[2017-04-06] MEDS: FAMOTIDINE 20 MG TAB PO SCH ×2 (09:25→20:49)
[2017-04-06] MEDS: ENOXAPARIN SODIUM 40 MG/0.4 ML SYRINGE SQ SCH (09:25)
[2017-04-06] MEDS: AMIODARONE 200 MG TAB PO SCH (09:25)
[2017-04-06] MEDS: ATORVASTATIN 40 MG TAB PO SCH (09:25)
[2017-04-06] MEDS: DIGOXIN 0.125 MG TAB PO SCH (09:25)
[2017-04-06] MEDS: DOCUSATE SODIUM 50 MG/SENNA 8.6 MG TAB PO SCH ×2 (09:25→20:49)
[2017-04-06] MEDS: METOPROLOL TARTRATE 50 MG TAB PO SCH ×2 (09:25→20:51)
[2017-04-06] MEDS: FUROSEMIDE 40 MG/4 ML VIAL IV PUSH SCH ×2 (09:26→20:50)
[2017-04-06 10:02] LABS: BANDS 1 % (0-6); BLASTS 27 % (0-0); METAMYELOCYTES 2 % (0-1); MYELOCYTES 9 % (0-0); NEUTROPHIL # MANUAL DIFF 5.2 TH/MM3 (1.8-7.7); POLYS (SEG NEUTROPHILS) 22 % (16-70); PROMYELOCYTES 4 % (0-0); WBC DIFF SAMPLE 100
[2017-04-06 10:03] LABS: SCAN/DIFF FINAL DIFF MANUAL
[2017-04-06 10:04] LABS: PLATELET ESTIMATE SMEAR LOW (NORMAL); PLATELET MORPHOLOGY NORMAL (NORMAL)
[2017-04-06 10:05] LABS: ACANTHOCYTES OCC (NORMAL)
--- NOTE | 2017-04-06 10:26 | PD.ONC.PN ---
Subjective Subjective Remarks Patient seen and examined, vital signs, labs, medications, x-ray and overnight events reviewed. Subjectively, the patient reports becoming disoriented and confused last evening , this occurred when her children were not at bedside. She was reoriented and was noted to be less confused. She tolerated Dacogen without significant difficulties. Remains on high flow oxygen via facemask and nonrebreather. She remains afebrile. She reports continued epigastric pain. Lipase level noted to be elevated at 1600. Objective Data Date Time Temp Pulse Resp B/P Pulse Ox O2 Delivery O2 Flow Rate FiO2 04/06/17 08:37 100 Partial Rebreather 12.00 04/06/17 08:00 91 04/06/17 08:00 100 Partial Non-Rebreather 12.00 04/06/17 08:00 97.9 77 12 144/67 100 04/06/17 06:00 109 04/06/17 04:00 98.3 71 13 106/56 100 04/06/17 04:00 80 04/06/17 02:00 81 04/06/17 00:00 98.1 75 24 111/59 82 04/06/17 00:00 84 04/05/17 22:10 100 Partial Rebreather 10.00 04/05/17 22:00 90 04/05/17 20:00 91 04/05/17 20:00 97.9 77 12 144/67 100 04/05/17 19:00 100 Partial Non-Rebreather 12.00 04/05/17 18:00 79 04/05/17 16:00 98.1 73 13 141/66 100 04/05/17 16:00 73 04/05/17 15:00 72 15 120/65 100 04/05/17 14:00 71 12 122/61 100 04/05/17 14:00 71 04/05/17 13:00 70 13 129/66 100 04/05/17 12:00 72 04/05/17 12:00 98.6 72 24 124/73 100 04/05/17 10:30 98 Partial Rebreather 15.00 04/05/17 10:30 98 04/06/17 04/06/17 04/06/17 07:00 15:00 23:00 Intake Total 120 ml Output Total 1000 ml Balance -880 ml Result Diagram: 04/06/17 0738 04/06/17 0738 Laboratory Results Laboratory Tests Test 04/06/17 07:38 White Blood Count 13.8 TH/MM3 Red Blood Count 2.64 MIL/MM3 Hemoglobin 7.8 GM/DL Hematocrit 23.8 % Mean Corpuscular Volume 90.0 FL Mean Corpuscular Hemoglobin 29.7 PG Mean Corpuscular Hemoglobin 33.0 % Concent Red Cell Distribution Width 18.4 % Platelet Count 84 TH/MM3 Mean Platelet Volume 8.8 FL Neutrophils (%) (Auto) % Lymphocytes (%) (Auto) % Monocytes (%) (Auto) % Eosinophils (%) (Auto) % Basophils (%) (Auto) % Neutrophils # (Auto) TH/MM3 Lymphocytes # (Auto) TH/MM3 Monocytes # (Auto) TH/MM3 Eosinophils # (Auto) TH/MM3 Basophils # (Auto) TH/MM3 CBC Comment AUTO DIFF Differential Total Cells 100 Counted Neutrophils % (Manual) 22 % Band Neutrophils % 1 % Lymphocytes % 16 % Monocytes % 19 % Neutrophils # (Manual) 5.2 TH/MM3 Metamyelocytes 2 % Myelocytes 9 % Promyelocytes 4 % Differential Comment FINAL DIFF MANUAL Blastocytes 27 % Platelet Estimate LOW Platelet Morphology Comment NORMAL Helmet Cells Acanthocytes OCC Sodium Level 132 MEQ/L Potassium Level 4.0 MEQ/L Chloride Level 89 MEQ/L Carbon Dioxide Level 38.9 MEQ/L Anion Gap 4 MEQ/L Blood Urea Nitrogen 19 MG/DL Creatinine 0.87 MG/DL Estimat Glomerular Filtration 65 ML/MIN Rate Random Glucose 89 MG/DL Calcium Level 8.5 MG/DL Phosphorus Level 2.7 MG/DL Total Bilirubin 0.5 MG/DL Aspartate Amino Transf 67 U/L (AST/SGOT) Alanine Aminotransferase 36 U/L (ALT/SGPT) Alkaline Phosphatase 111 U/L Total Creatine Kinase 78 U/L Total Protein 6.0 GM/DL Albumin 1.9 GM/DL Lipase 1619 U/L Digoxin Level 1.6 NG/ML Imaging Studies Last 24 hours Impressions Chest X-Ray 04/06/17 0600 Signed Impressions: Service Date/Time: Thursday, April 06, 2017 04:41 - CONCLUSION: No significant change. Raoul Monroe MD Administered Medications Medications (Trade) Dose Ordered Sig/Tylor Route PRN Reason Start Time Stop Time Status Last Admin Dose Admin Sodium Chloride (NS Flush) 2 ml BID IV FLUSH 03/26/17 09:00 04/06/17 09:00 Acetaminophen (Tylenol) 650 mg Q4H PRN PO TEMP > 100.4 03/25/17 23:15 03/30/17 08:26 Ondansetron HCl (Zofran Inj) 4 mg Q6H PRN IVP NAUSEA OR VOMITING 03/25/17 23:15 03/29/17 21:36 Acetaminophen (Tylenol) 650 mg Q6H PRN PO PAIN SCALE 1 TO 2 03/25/17 23:15 03/26/17 08:14 Famotidine (Pepcid) 10 mg BID PO 03/26/17 09:00 04/06/17 09:25 Temazepam (Restoril) 15 mg HS PRN PO insomnia 03/26/17 00:30 04/05/17 21:11 Allopurinol (Zyloprim) 100 mg BID PO 03/26/17 09:00 04/06/17 09:00 Nystatin (Mycostatin Liq) 5 ml QID SWISH-SWAL 03/26/17 18:00 04/06/17 09:00 Atorvastatin Calcium (Lipitor) 40 mg DAILY PO 03/28/17 09:00 04/06/17 09:25 Lamotrigine (LaMICtal) 50 mg HS PO 03/27/17 21:00 04/05/17 21:10 Levothyroxine Sodium (Synthroid) 100 mcg DAILY@06 PO 03/28/17 06:00 04/06/17 06:24 Acetaminophen/ Hydrocodone Bitart ([place] 10-325 Mg) 1 tab Q4H PRN PO PAIN 7-10 03/28/17 09:15 04/05/17 21:11 Lorazepam 1 mg 1 mg Q6H PRN PO ANXIETY 03/28/17 09:15 Hold 04/03/17 06:52 Meropenem/Sodium Chloride (Merrem Inj/NS Inj) 100 ml @ 200 mls/hr Q8H IV 03/31/17 14:00 04/05/17 21:10 Senna/Docusate Sodium (Ramya-Colace) 1 tab BID PO 03/31/17 21:00 04/06/17 09:25 Magnesium Hydroxide (Milk Of Magnesia Liq) 30 ml Q12H PRN PO SEE LABEL COMMENTS 03/31/17 14:00 04/01/17 08:15 Bisacodyl (Dulcolax Supp) 10 mg DAILY PRN RECTAL SEE LABEL COMMENTS 03/31/17 14:00 04/01/17 08:14 Lactulose (Lactulose Liq) 30 ml DAILY PRN PO SEE LABEL COMMENTS 03/31/17 14:00 04/01/17 08:13 Metoprolol Tartrate (Lopressor Inj) 2.5 mg Q2H PRN IV PUSH tachycardia 04/02/17 20:15 04/04/17 22:42 Furosemide (Lasix Inj) 40 mg BID IV PUSH 04/03/17 09:00 04/06/17 09:26 Potassium Phosphate (K-Phos) 2,000 mg Q4H PRN PO For Phosphorus < 2.5 mg/dL 04/03/17 08:30 04/03/17 14:23 Digoxin (Lanoxin) 0.125 mg DAILY PO 04/04/17 09:00 04/06/17 09:25 Metoprolol Tartrate (Lopressor) 50 mg BID PO 04/04/17 21:00 04/06/17 09:25 Amiodarone HCl (Cordarone) 200 mg DAILY PO 04/04/17 09:00 04/06/17 09:25 Enoxaparin Sodium (Lovenox Inj) 40 mg Q24H SQ 04/05/17 09:00 04/06/17 09:25 Objective Remarks GENERAL PHYSICAL APPEARANCE: Ms. Richard is a middle-aged female, she is laying in bed and is in no acute distress. She is able to speak to me in almost full sentences. HEENT: Head is atraumatic, normocephalic, conjunctivae are pale. Sclerae are anicteric, EOMI, PERRLA. ORAL EXAM: She has thrush no longer apparent. NECK: No cervical lymphadenopathy. RESPIRATORY: Decreased bibasilar breath sounds left greater than right. Some crackles noted. CARDIOVASCULAR: regular rhythm, regular rate, distant sounding heart sounds. rubs or gallops. She does have a systolic murmur heard over the aortic area. ABDOMEN: Obese belly, soft and nontender, nondistended. No palpable organ enlargement. Tympanic to percussion. LOWER EXTREMITIES: No pretibial edema or calf tenderness. MUSCULOSKELETAL: Adequate muscle mass, tone and strength. Assessment/Plan Problem List: (1) AML (acute myeloid leukemia) Status: Acute Plan: --Bone marrow biopsy indicates findings consistent with AML. FLT-3, CEPBA and NPM-1 analysis pending to help us prognosticate further, cytogenetics are pending. -- poor candidate for intensive induction remission therapy with anthracycline/ Cytarabine or HiDAC due to her cardiac and pulmonary issues and borderline performance status. --on allopurinol for tumor lysis prophylaxis --03/30/17: Dacogen day 1 started --03/31/17: transferred to [facility] [place]/t hypoxia, tachycardia, hypotension --04/01: hold Dacogen. patient remains hypotensive, tachycardic, hypoxic -- 04/03 and 04/04/2017: Day 2 and day 3 Dacogen delivered. (2) Atrial fibrillation with RVR Status: Acute Plan: -- A. fib with RVR associated with transient chest pain: --cardiology following --on digoxin Assessment Ms. Richard is a 66-year-old female with a 3-week history of progressive malaise, fatigue and weakness. She reports soreness of the throat and a dry cough, both of which have been chronic. She presented to the emergency department for further workup and management because her symptoms of fatigue progressed to the point where she had difficulty walking from her bedroom to her restroom. She called EMS last night due to the severity of the symptoms. Blood work performed in the emergency department indicates findings consistent with anemia, thrombocytopenia, her WBCs are grossly abnormal with findings of numerous immature cells and blasts in the peripheral circulation. 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 Peripheral smear was formally reviewed by our hematocrit pathologist who assessed the findings to be consistent with a high- grade myeloid malignancy most consistent with acute myeloid leukemia. Plan 1. Acute myeloid leukemia: Initiated on systemic therapy with Dacogen because she was not a good candidate for induction systemic therapy with an anthracycline plus cytarabine. Continue Dacogen, today will be day 5. Monitor daily I/Os to maintain control to slightly negative fluid balance. 2. A. fib with RVR: Rate controlled this morning; appears to be in sinus rhythm on the life science taxonomist. On amiodarone and digoxin. 3. Hypoxic respiratory failure: Likely secondary to pulmonary edema from volume overload. She has been effectively diuresed and is stable from a respiratory standpoint today. 4. On empiric antibiotic therapy with meropenem for suspected pneumonia. She is afebrile at this time. 5. Start on Lovenox for DVT prophylaxis at 40 mg subcutaneous every 24 hours. 6. Elevated lipase: This will be evaluated by the primary team, she will likely require imaging studies of the abdomen to rule out cholelithiasis. Problem Qualifiers (1) AML (acute myeloid leukemia): Qualified Code: C92.00 - Acute myeloid leukemia not having achieved remission Roberto Yarbrough MD Apr 06, 2017 10:26
[2017-04-06] MEDS: ACETAMINOPHEN/HYDROcodone 325 MG/10 MG TAB PO PRN ×3 (10:49→20:50)
--- NOTE | 2017-04-06 11:48 | HHI.PR ---
Subjective Remarks 66 YO [place] female with Resp insuff, Myeloid leukemia had Chemo mild sob Appetite fair On High flow 02 Better rested Objective Vital Signs Vital Signs Date Time Temp Pulse Resp B/P Pulse Ox O2 Delivery O2 Flow Rate FiO2 04/06/17 10:00 109 04/06/17 08:37 100 Partial Rebreather 12.00 04/06/17 08:00 91 04/06/17 08:00 100 Partial Non-Rebreather 12.00 04/06/17 08:00 97.9 77 12 144/67 100 04/06/17 06:00 109 04/06/17 04:00 98.3 71 13 106/56 100 04/06/17 04:00 80 04/06/17 02:00 81 04/06/17 00:00 98.1 75 24 111/59 82 04/06/17 00:00 84 04/05/17 22:10 100 Partial Rebreather 10.00 04/05/17 22:00 90 04/05/17 20:00 91 04/05/17 20:00 97.9 77 12 144/67 100 04/05/17 19:00 100 Partial Non-Rebreather 12.00 04/05/17 18:00 79 04/05/17 16:00 98.1 73 13 141/66 100 04/05/17 16:00 73 04/05/17 15:00 72 15 120/65 100 04/05/17 14:00 71 12 122/61 100 04/05/17 14:00 71 04/05/17 13:00 70 13 129/66 100 04/05/17 12:00 72 04/05/17 12:00 98.6 72 24 124/73 100 I/O 04/05/17 04/05/17 04/05/17 04/06/17 04/06/17 04/06/17 07:00 15:00 23:00 07:00 15:00 23:00 Intake Total 355 ml 369 ml 120 ml Output Total 800 ml 700 ml 450 ml 1000 ml Balance -445 ml -700 ml -81 ml -880 ml Intake Oral 355 ml 120 ml IV Total 369 ml Output Urine Total 800 ml 700 ml 450 ml 1000 ml # Bowel Movements 0 0 0 0 Result Diagram: 04/06/1773704/06/17737 Objective Remarks GENERAL: WBWn Female, mild sob SKIN: Warm and dry. HEAD: Normocephalic. EYES: No scleral icterus. No injection or drainage. NECK: Supple, trachea midline. No JVD or lymphadenopathy. CARDIOVASCULAR: Regular rate and rhythm without murmurs, gallops, or rubs. RESPIRATORY: Breath sounds equal bilaterally. No accessory muscle use. GASTROINTESTINAL: Abdomen soft, non-tender, nondistended. MUSCULOSKELETAL: No cyanosis, or edema. BACK: Nontender without obvious deformity. No CVA tenderness. A/P Assessment and Plan Resp Insuff Hypoxia Left basal infilt myeloid Leukemia HTN Partial sz PLAN: High flow 02 Wean 02 to keep sat >90% Aerosol nebs DW pt and Family at BS. Will try VM to keep sat >90% Jorge Thibodeaux MD Apr 06, 2017 11:48
--- NOTE | 2017-04-06 12:16 | HHI.CCPN ---
Subjective Remarks/Hospital Course This is a 66-year-old female, that presented to the hospital with shortness of breath productive cough and generalized fatigue upon admission. Subsequent laboratory and imaging studies reveal a pneumonia. 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 Since admission the patient was placed on empiric antibiotic Azactam. Blood culture negative growth today, urine culture showed 50-100,000 of gram-positive chance. Hematology oncology initiated Dacogen first dose yesterday. The patient was noted to have a cardiac rhythm A. fib RVR cardiology was consulted, Dr. Chang the patient was placed on amiodarone 400 mg twice a day received a dose of digoxin last evening. The patient early this a.m., had A. fib RVR with dyspnea and hypoxemia with O2 sat duration in the 80s. Critical care medicine was consulted. Upon meeting and evaluating the patient the patient was noted to be in a sinus tachycardia with a heart rate 117x106's, with an O2 saturation on nonrebreather of 91-92%. The patient received 20 mg IV Lasix upon arrival, with subsequent diuresis of approximately 1 L, and decreased in FiO2 requirements. The patient was noted to have a significant leukocytosis, with 1 % bands, pro-calcitonin level was drawn ID was consulted. 04/01: The patient required increasing FiO2 requirements overnight. The patient currently on nonrebreather mask O2 saturation 94%. Stat chest x-ray obtain results pending, stat ABG results pending. Discussion with patient and son regarding the probable likelihood of intubation this a.m.. All questions answered. The patient remains nothing by mouth at this time. ID was consulted yesterday regarding the leukocytosis and elevation in temperature, following recommendations. 04/02: No acute events overnight. Patient's oxygen requirements remain at 4 L/m nasal cannula. Palliative care team in extensive discussion with family, patient CODE STATUS been made DNR/DNI. Heart healthy diet has been resumed. 04/03: Overnight the patient, had increasing FiO2 requirements required partial nonrebreather mask, and also received 3 doses of Ativan. The patient became tachycardic and received metoprolol IV subsequently at 2 AM went into A. fib RVR and received 15 mg Cardizem IV push. The patient currently telemetry revealing ST 113. Thomson reinserted with strict TARAN hourly monitoring patient to receive Dacogen today. 04/04: Slight improvement in chest x-ray today. Patient still remains on high FiO2 requirements. Patient continues on twice a day diuretic dosing. Continue hourly monitoring for even I's and O's every 24 hours when patients undergoing Dacogen therapy. Patient to have therapy and still today third day of dosing. A chin complains of pain on inspiration well controlled with PRN Lortab The patient's tolerating a diet. Subjective 04/05 - last dose of Dectabine 40 mg 1 today. Currently on partial nonrebreather mask. Remains tachycardic. Tolerating diet. Positive BM. 04/06: Remains on high-flow oxygen. FiO2 just reduced to 70%. Complaints of pleuritic chest pain bilaterally. Chest x-ray still showing bibasilar infiltrate Objective Vital Signs Date Time Temp Pulse Resp B/P Pulse Ox O2 Delivery O2 Flow Rate FiO2 04/06/17 10:00 109 04/06/17 08:37 100 Partial Rebreather 12.00 04/06/17 08:00 97.9 12 144/67 04/04/17 20:40 80 Intake and Output 04/05/17 04/05/17 04/06/17 08:00 16:00 00:00 Intake Total 355 ml 369 ml Output Total 800 ml 700 ml 450 ml Balance -445 ml -700 ml -81 ml Result Diagram: 04/06/17 0738 04/06/17 0738 Imaging Last Impressions Chest X-Ray 04/04/17 0600 Signed Impressions: Service Date/Time: Tuesday, April 04, 2017 04:43 - CONCLUSION: Slight improved aeration right lower lobe. Antwan Jensen MD Bone Biopsy CT 03/26/17 0000 Signed Impressions: Service Date/Time: Sunday, March 26, 2017 14:48 - CONCLUSION: 1. Uncomplicated CT guided bone marrow aspirate. 2. Uncomplicated CT guided bone marrow biopsy. Raoul Jeffries MD Lumbar Spine CT [id number]/25/[id number] Signed Impressions: Service Date/Time: Sunday, March 26, 2017 01:12 - CONCLUSION: 1. Degenerative disc changes greatest at the L4-5 and L5-S1 levels with broad-based disc osteophyte complexes. There is lateral recess stenosis at the L5-S1 level. 2. Mild retrolisthesis of L5 on S1 with degenerative disc change and broad-based disc osteophyte complex. 3. Narrowing of the neuroforamina bilaterally at the L4-5 and L5-S1 levels. 4. Degenerative disc change. Balaji Solorio MD CT Angiography 03/25/[id number] Signed Impressions: Service Date/Time: Sunday, March 26, 2017 01:09 - CONCLUSION: 1. Mild consolidation along the left fissure and lower lobe. This could indicate early pneumonia. 2. No evidence of pulmonary embolism. Balaji Solorio MD Objective Remarks GENERAL: Obese female on hi dom NC SKIN: Warm and dry. No rash HEAD: Atraumatic. Normocephalic. EYES: Pupils equal and round. No scleral icterus. No injection or drainage. ENT: No nasal bleeding or discharge. Mucous membranes pink and moist. NECK: Trachea midline. No JVD. CARDIOVASCULAR: Tachycardic rate, regular rhythm. S1, S2. No S4. RESPIRATORY: On hi Dom. Clear to auscultation. Breath sounds equal bilaterally. Diminished breath sounds at the bases GASTROINTESTINAL: Abdomen soft, protuberant ,non-tender, nondistended. No guarding. MUSCULOSKELETAL: Extremities without clubbing, cyanosis, or edema. No obvious deformities. NEUROLOGICAL: Awake and alert. No gross focal/sensory deficits. Follows commands in all 4 extremities. Procedures 04/02,04/03,04/04 Dacogen therapy Date of Insertion: Apr 03, 2017 A/P Assessment and Plan Assessment Sepsis A. fib RVR with conversion to Sinus tachycardia Acute hypoxemic Respiratory failure Bibasilar pneumonia Persistent leukocytosis Bilateral Pleural effusions Acute myeloid leukemia Anemia/normocytic Thrombocytopenia CKD stage 3 H/O chronic HTN H/O cerebral aneurysm H/O CVA with residual weakness Hypothyroidism Mild protein calorie malnutrition Morbid obesity Chronic pain syndrome NOS Constipation-resolved Plan Neurologic: - Maintain sleep hygiene, avoid ICU delirium, maintains stimulation during the day - Restoril 15 mg at bedtime when necessary for insomnia, avoid multiple disruptions at night - [place] 10/325 PRN pain 7-10. Acetaminophen for fever/pain 126 - Lamictal 50 mg at night - 04/03 Discontinued Ativan Respiratory: -Maintain O2 sat greater than 90%. Currently on high flow nasal cannula and 70 % FiO2 -Scheduled continue bronchodilators 4 times a day scheduled -Wean O2 as tolerated -Maintain head of bed 30 -Lasix 40 mg twice a day Cardiovascular: -Metoprolol 2.5 mg IV every 6 hours when necessary for heart rate greater than 100bpm -Cardiology following- Dr. Chang/ Ronny --04/04 Digoxin level 1.6 r --Amiodarone 200 mg/ day, atorvastatin 10 mg by mouth daily. Metoprolol 50 twice a day Digoxin 0.125 mg Management per Cardiology Renal: - Maintain thomson- patient receiving Dacogen therapy strict hourly I&O's indicated --Strict I/Os FEN/GI: -Monitor electrolytes -Electrolyte replacement per ICU protocol -Heart healthy diet -Bowel regimen with Ramya-Colace Heme/ID: -Hematology oncology following Dr. Yarbrough -Allopurinol 100 mg twice a day continued per hematology oncology-prophylaxis for tumor lysis -Dacogen 40 mg IV daily dosing per Hematology-Oncology schedule -Transfuse for platelet count less than 50,000 Endocrine: -Levothyroxine 100 mcgs/day -Glucose monitoring per ICU protocol -- SSI Prophylaxis: GI Prophylaxis Pepcid DVT Prophylaxis -- SCDs No pharmacological DVT prophylaxis in the setting of thrombocytopenia defer to HematologyOncology Lines: PIV x 2 Dispo: Level 3 Discussed with NOCTURNIST PHYSICIAN ,patient and daughter at bedside. Patient CODE STATUS changed to intubation only after extensive discussion with palliative care and other family members. . Patient's pulmonary status continues to be tenuous possibility of intubation. Paul Silveira MD Apr 06, 2017 12:16
[2017-04-06] MEDS ORDERED: GRANISETRON HCL 1 MG/ML VIAL IV PUSH ONE (13:15)
--- NOTE | 2017-04-06 14:54 | HHI.HCPN ---
Reason for visit a. To assist with evaluation and management of symptoms including: Shortness of breath and debility. b. To assist medical decision maker(s) with: better understanding of current medical conditions; weighing benefits/burdens of medical treatment options; making medical treatment decisions. . (Luanne Montoya) Subjective/Interval History Mrs. Sandi England is a 66-year-old female with a medical history significant for COPD, CK D, multiple brain aneurysm, HTN, TIA and seizure disorder. 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 Clinical course complicated by sepsis and pneumonia. Palliative care has been consulted for further clarifications of goals of care given newly diagnosed of acute myeloid leukemia with limited treatment options secondary to acute complications. Called at bedside patient's daughter Jerri. Patient seen in ICU, she was resting in bed in no acute distress. Patient is alert & oriented x self, place and situation. Verbal, able to communicate needs. Currently on a nonrebreather mask at 70%. Able to tolerate nasal cannula but reports that it was making her eyes very dry. Endorsing intermittent chest pain on inspiration , exertional shortness of breath. Last bowel movement 2 days ago after an enema. Laboratory work Today. WBC trending down, 13.8 today from 19.3 yesterday. Hgb 7.9, platelet count 84. Lipase elevated 1619 from 303 on 03/25. Pending ultrasound of gallbladder. Patient to receive fifth dose of Dacogen today. Patient remains afebrile, slightly tachycardic, stable hemodynamically. Patient and daughter inquiring regarding discharge. Discussed that patient is not clinically stable to discharge given her respiratory status and pending GI workup. Discussed that patient remains with high O2 requirements. Goals remain unchanged, continue aggressive management short of no cardiac code. Hospice philosophy and benefits previously introduced, patient and family receptive to this should patient's clinical condition worsen, increased symptom burden or continue decline. Patient and family appreciative of my visit. . Family/friend interactions See interval note. . (Luanne Montoya) Advance Directives Living Will: Copy in medical record Health Care Surrogate: Copy in medical record Durable Power of Web Editor: Never completed (Luanne Montoya) Advance Directive Specifics Date completed: 03/30/2017. . Health Care Surrogate(s): Wilmer Moellern as HCS, alternate HCS daughter Jerri Miguel. . Documented care wishes: "I do not wish to be revived by any means are recent. Allow natural if I feel that I cannot continue to treatment due to pain, I wish to stop all treatments and to be made comfortable until I pass". Significant change in goals: ALT code/intubation only. Continue aggressive management short of no cardiac code. . (Luanne Montoya) Objective Vital Signs Date Time Temp Pulse Resp B/P Pulse Ox O2 Delivery O2 Flow Rate FiO2 04/06/17 13:34 108 21 120/76 95 04/06/17 13:30 113 28 95 04/06/17 13:00 104 19 81/53 95 04/06/17 12:30 100 14 99 04/06/17 12:00 98.1 77 16 120/76 100 04/06/17 12:00 109 04/06/17 12:00 93 28 119/61 94 04/06/17 11:30 104 18 97 04/06/17 11:00 116 1 107/71 99 04/06/17 10:30 114 20 98 04/06/17 10:00 118 24 122/60 95 04/06/17 10:00 109 04/06/17 09:30 121 33 95 04/06/17 09:21 121 24 128/64 94 04/06/17 09:00 117 21 134/71 100 04/06/17 08:37 100 Partial Rebreather 12.00 04/06/17 08:00 91 04/06/17 08:00 100 Partial Non-Rebreather 12.00 04/06/17 08:00 97.9 77 12 144/67 100 04/06/17 06:00 109 04/06/17 04:00 98.3 71 13 106/56 100 04/06/17 04:00 80 04/06/17 02:00 81 04/06/17 00:00 98.1 75 24 111/59 82 04/06/17 00:00 84 04/05/17 22:10 100 Partial Rebreather 10.00 04/05/17 22:00 90 04/05/17 20:00 91 04/05/17 20:00 97.9 77 12 144/67 100 04/05/17 19:00 100 Partial Non-Rebreather 12.00 04/05/17 18:00 79 04/05/17 16:00 98.1 73 13 141/66 100 04/05/17 16:00 73 04/05/17 15:00 72 15 120/65 100 Intake & Output 04/06/17 04/06/17 07:00 19:00 Intake Total 489 ml Output Total 1450 ml Balance -961 ml Intake Oral 120 ml IV Total 369 ml Output Urine Total 1450 ml # Bowel Movements 0 Physical Exam CONSTITUTIONAL/GENERAL: This is an adequately nourished patient in no acute distress. Resting in bed. TUBES/LINES/DRAINS: PIV's, nonrebreather mask, Lujan catheter. SKIN: No jaundice, rashes, or lesions. Ecchymoses on upper extremities. No wounds seen anteriorly. Skin temperature appropriate. Not diaphoretic. HEAD: Atraumatic. Normocephalic. EYES: Pupils equal and round and reactive. Extraocular motions intact. No scleral icterus. No injection or drainage. ENT: Hearing grossly normal. Nose without bleeding or purulent drainage. Moist oral mucosa. NECK: Trachea midline. Supple, nontender. CARDIOVASCULAR: Irregular rate and rhythm. Systolic murmur. No JVD. Peripheral pulses symmetric. RESPIRATORY/CHEST: Symmetric, Diminished to auscultation. Nonrebreather mask, O2 70%. GASTROINTESTINAL: Abdomen soft, round, mildly distended. No guarding. Bowel sounds present. GENITOURINARY: Without palpable bladder distension. Lujan catheter in place. MUSCULOSKELETAL: Extremities without clubbing, cyanosis, or edema. NEUROLOGICAL: Awake and alert. Motor and sensory grossly within normal limits. Follows commands. Moves all extremities. PSYCHIATRIC: Calm, pleasant. . (Luanne Montoya) Diagnostic Tests Laboratory Laboratory Tests Test 04/04/17 04/05/17 04/06/17 05:16 05:12 07:38 White Blood Count 24.5 TH/MM3 19.3 TH/MM3 13.8 TH/MM3 (4.0-11.0) (4.0-11.0) (4.0-11.0) Red Blood Count 2.63 MIL/MM3 2.77 MIL/MM3 2.64 MIL/MM3 (4.00-5.30) (4.00-5.30) (4.00-5.30) Hemoglobin 7.9 GM/DL 8.2 GM/DL 7.8 GM/DL (11.6-15.3) (11.6-15.3) (11.6-15.3) Hematocrit 23.6 % 24.9 % 23.8 % (35.0-46.0) (35.0-46.0) (35.0-46.0) Mean Corpuscular Volume 89.6 FL 90.0 FL 90.0 FL (80.0-100.0) (80.0-100.0) (80.0-100.0) Mean Corpuscular Hemoglobin 30.1 PG 29.7 PG 29.7 PG (27.0-34.0) (27.0-34.0) (27.0-34.0) Mean Corpuscular Hemoglobin 33.6 % 33.0 % 33.0 % Concent (32.0-36.0) (32.0-36.0) (32.0-36.0) Red Cell Distribution Width 17.9 % 17.7 % 18.4 % (11.6-17.2) (11.6-17.2) (11.6-17.2) Platelet Count 88 TH/MM3 84 TH/MM3 84 TH/MM3 (150-450) (150-450) (150-450) Mean Platelet Volume 8.6 FL 8.6 FL 8.8 FL (7.0-11.0) (7.0-11.0) (7.0-11.0) Sodium Level 137 MEQ/L 132 MEQ/L (136-145) (136-145) Potassium Level 4.1 MEQ/L 4.0 MEQ/L (3.5-5.1) (3.5-5.1) Chloride Level 93 MEQ/L 89 MEQ/L (98-107) (98-107) Carbon Dioxide Level 36.6 MEQ/L 38.9 MEQ/L (21.0-32.0) (21.0-32.0) Anion Gap 7 MEQ/L (5-15) 4 MEQ/L (5-15) Blood Urea Nitrogen 19 MG/DL (7-18) 19 MG/DL (7-18) Creatinine 0.92 MG/DL 0.87 MG/DL (0.50-1.00) (0.50-1.00) Estimat Glomerular Filtration 61 ML/MIN (>89) 65 ML/MIN (>89) Rate Random Glucose 84 MG/DL 89 MG/DL (74-106) (74-106) Calcium Level 7.9 MG/DL 8.5 MG/DL (8.5-10.1) (8.5-10.1) Phosphorus Level 3.1 MG/DL 2.7 MG/DL (2.5-4.9) (2.5-4.9) Magnesium Level 2.3 MG/DL (1.5-2.5) Digoxin Level 1.6 NG/ML 1.6 NG/ML (0.8-2.0) (0.8-2.0) Neutrophils (%) (Auto) 18.0 % % (16.0-70.0) (16.0-70.0) Lymphocytes (%) (Auto) 11.2 % % (9.0-44.0) (9.0-44.0) Monocytes (%) (Auto) 67.5 % % (0.0-8.0) (0.0-8.0) Eosinophils (%) (Auto) 0.3 % (0.0-4.0) % (0.0-4.0) Basophils (%) (Auto) 3.0 % (0.0-2.0) % (0.0-2.0) Neutrophils # (Auto) 3.5 TH/MM3 TH/MM3 (1.8-7.7) (1.8-7.7) Lymphocytes # (Auto) 2.2 TH/MM3 TH/MM3 (1.0-4.8) (1.0-4.8) Monocytes # (Auto) 13.0 TH/MM3 TH/MM3 (0-0.9) (0-0.9) Eosinophils # (Auto) 0.1 TH/MM3 TH/MM3 (0-0.4) (0-0.4) Basophils # (Auto) 0.6 TH/MM3 TH/MM3 (0-0.2) (0-0.2) CBC Comment AUTO DIFF AUTO DIFF Differential Total Cells 100 100 Counted Neutrophils % (Manual) 30 % (16-70) 22 % (16-70) Band Neutrophils % 3 % (0-6) 1 % (0-6) Lymphocytes % 11 % (9-44) 16 % (9-44) Monocytes % 15 % (0-8) 19 % (0-8) Neutrophils # (Manual) 7.7 TH/MM3 5.2 TH/MM3 (1.8-7.7) (1.8-7.7) Metamyelocytes 3 % (0-1) 2 % (0-1) Myelocytes 4 % (0-0) 9 % (0-0) Differential Comment FINAL DIFF FINAL DIFF MANUAL MANUAL Blastocytes 34 % (0-0) 27 % (0-0) Platelet Estimate LOW (NORMAL) LOW (NORMAL) Platelet Morphology Comment NORMAL NORMAL (NORMAL) (NORMAL) Red Cell Morphology Comment NORMAL (NORMAL) Promyelocytes 4 % (0-0) Helmet Cells (NORMAL) Acanthocytes OCC (NORMAL) Total Bilirubin 0.5 MG/DL (0.2-1.0) Aspartate Amino Transf 67 U/L (15-37) (AST/SGOT) Alanine Aminotransferase 36 U/L (10-53) (ALT/SGPT) Alkaline Phosphatase 111 U/L (45-117) Total Creatine Kinase 78 U/L (26-192) Total Protein 6.0 GM/DL (6.4-8.2) Albumin 1.9 GM/DL (3.4-5.0) Lipase 1619 U/L (73-393) (Luanne Montoya) Result Diagram: 04/06/17 0738 04/06/17 0738 Imaging Last 48 hours Impressions Chest X-Ray 04/06/17 0600 Signed Impressions: Service Date/Time: Thursday, April 06, 2017 04:41 - CONCLUSION: No significant change. Raoul Monroe MD (Luanne Montoya) Assessment and Plan Disease Oriented Problem List: (1) Acute respiratory failure (2) AML (acute myeloid leukemia) (3) Sepsis (4) Pneumonia (5) CKD (chronic kidney disease) stage 3, GFR 30-59 ml/min (6) Atrial fibrillation with RVR (7) Anemia (8) hx cerebral aneurysm Symptom Scale: (1) Shortness of breath 0-10 Scale: Unable to quantify Comment: Secondary to pneumonia, pulmonary edema. Currently on O2 via NRB, 70% . (2) Debility 0-10 Scale: Unable to quantify Comment: Progressive. Worsen within the last month. Pertinent Non-Medical Issues Psychosocial: Originally from [place]. , has 2 adult children. 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 Spiritual: Rastafari biju. Legal: Living will and designation of healthcare surrogate completed. Ethical issues impacting care: No ethical issues identified. . Important Contacts HCS/son Sarthak Miguel daughter Jerri Miguel . . Prognosis Mrs. Sandi England is a 66 y/o female with a medical history significant for COPD, CK D, multiple brain aneurysm, HTN, TIA and newly diagnosed acute myeloid leukemia. Patient's overall prognosis is poor given ongoing acute on chronic comorbidities, newly diagnosed AML, respiratory failure and physical deconditioning. Patient very at high risk for further complications, continue decline and . . Code Status: Alternative Code Plan * CODE STATUS: Alternate code/intubation only. * HEALTHCARE DECISION MAKING: Patient participating in medical decision-making. Patient demonstrates a good understanding of her medical condition and the ability to weight benefits burdens of treatment options. Designation of healthcare surrogate in file, patient designated her son Sarthak Miguel as HCS, alternate HCS daughter Jerri Miguel. * GOALS OF CARE: Patient verbalized wishing to continue with aggressive management short of no cardiac code/intubation only. Hospice philosophy and benefits previously introduced, patient and family receptive to this should patient's clinical condition worsen, increased symptom burden or continue decline. * SYMPTOMS: = Dyspnea, secondary to pneumonia, anemia, respiratory failure. ID and pulm following. Patient currently on nonrebreather mask, 70%. = Debility, progressive. Worsening during the past month. Exacerbated by acute illness and prolonged hospitalization. = Constipation, exacerbated by opioid and bedrest. Currently on Cllt-Irru-rjjsok twice a day. Milk of magnesia, bisacodyl suppository, lactulose available as needed. No further recommendations at this time. * Ongoing emotional support and active listening provided. * Palliative care contact information has been provided to patient and family. * Palliative care will continue to follow-up as needed for further clarifications of goals of care and emotional support as patient's clinical course continues to evolve. . (Luanne Montoya) Time Spent Total Floor Time (mins): 28 (Total time to include review medical records, physical exam, conversation with patient and daughter.) >50% Counseling/Coord of Care: Yes (Luanne Montoya) Attestation To help prompt me to consider important information that might be impacting today's encounter and assessment, information from prior notes written by myself or my colleagues may have been "brought forward" into today's note. My signature on this note, however, is an attestation that I personally performed the exam, history, and/or decision-making noted today, and, unless otherwise indicated, the interactions with patient, family, and staff as well as the review of records all occurred today. I also attest that the listed assessment and stated plan reflect my best clinical judgment today based on the combination of historical information, prior notes, and today's exam/ interactions. When time spent is documented, it refers only to time spent today by the signer, or if indicated, combined time spent today by collaborating physician/nurse practitioner. (Luanne Montoya) Collaborating MD Comments Chart reviewed. Case discussed with palliative care DIRECTOR OF CASEWORK. Above note reviewed and I concur. . (Anatoliy Roach MD) Luanne Montoya Apr 06, 2017 14:54 Anaotliy Roach MD Jun 03, 2017 11:25
--- NOTE | 2017-04-06 16:50 | HHI.IDPN ---
Subjective Subjective Remarks ID [id number] cover for Dr Quintanilla 67 yo F with AML, high-grade myeloid neoplasm admitted with resp distress Receiving chemo. Patient on O2 NRB No complaints. Cough rarely, mostly dry with clear sputum if any Afebrile. WBC decreasing, down to 13 K PAST MEDICAL HISTORY 1. Hypertension 2. Hypothyroidism 3. Chronic obstructive pulmonary disease 4. partial seizures 5. intracranial aneurysm 6. anxiety disorder. 7. Appendectomy. 8. The vein surgery in the left leg. ALLERGIES PENICILLIN OBJECTIVE: Vital Signs Date Time Temp Pulse Resp B/P Pulse Ox O2 Delivery O2 Flow Rate FiO2 04/05/17 10:00 76 04/05/17 08:00 98.0 81 18 144/63 98 04/05/17 08:00 81 04/05/17 07:00 100 Partial Non-Rebreather 12.00 04/05/17 06:00 77 04/05/17 04:00 78 04/05/17 04:00 98.4 74 125/58 98 04/05/17 02:00 73 04/05/17 00:00 98.9 100 30 102/58 98 04/05/17 00:00 76 04/04/17 22:00 126 04/04/17 21:57 96 Partial Rebreather 15.00 04/04/17 20:40 96 High Flow Nasal Cannula 20.00 80 04/04/17 20:35 97 Partial Rebreather 15.00 04/04/17 20:00 82 04/04/17 20:00 98.4 81 14 126/58 98 04/04/17 19:00 95 Nasal Cannula 6.00 04/04/17 18:00 89 04/04/17 16:00 98.4 87 21 136/68 99 04/04/17 16:00 87 04/04/17 14:00 91 04/04/17 04/04/17 04/05/17 15:00 23:00 07:00 Intake Total 480 ml 1044 ml 355 ml Output Total 1375 ml 760 ml 800 ml Balance -895 ml 284 ml -445 ml Intake Oral 480 ml 655 ml 355 ml IV Total 0 ml 389 ml Output Urine Total 1375 ml 760 ml 800 ml # Bowel Movements 0 0 Laboratory Tests Test 04/04/17 04/05/17 05:16 05:12 White Blood Count 24.5 TH/MM3 19.3 TH/MM3 Red Blood Count 2.63 MIL/MM3 2.77 MIL/MM3 Hemoglobin 7.9 GM/DL 8.2 GM/DL Hematocrit 23.6 % 24.9 % Mean Corpuscular Volume 89.6 FL 90.0 FL Mean Corpuscular Hemoglobin 30.1 PG 29.7 PG Mean Corpuscular Hemoglobin 33.6 % 33.0 % Concent Red Cell Distribution Width 17.9 % 17.7 % Platelet Count 88 TH/MM3 84 TH/MM3 Mean Platelet Volume 8.6 FL 8.6 FL Neutrophils (%) (Auto) 18.0 % Lymphocytes (%) (Auto) 11.2 % Monocytes (%) (Auto) 67.5 % Eosinophils (%) (Auto) 0.3 % Basophils (%) (Auto) 3.0 % Neutrophils # (Auto) 3.5 TH/MM3 Lymphocytes # (Auto) 2.2 TH/MM3 Monocytes # (Auto) 13.0 TH/MM3 Eosinophils # (Auto) 0.1 TH/MM3 Basophils # (Auto) 0.6 TH/MM3 CBC Comment AUTO DIFF Differential Total Cells 100 Counted Neutrophils % (Manual) 30 % Band Neutrophils % 3 % Lymphocytes % 11 % Monocytes % 15 % Neutrophils # (Manual) 7.7 TH/MM3 Metamyelocytes 3 % Myelocytes 4 % Differential Comment FINAL DIFF MANUAL Blastocytes 34 % Platelet Estimate LOW Platelet Morphology Comment NORMAL Red Cell Morphology Comment NORMAL Laboratory Tests Test 04/04/17 05:16 Sodium Level 137 MEQ/L Potassium Level 4.1 MEQ/L Chloride Level 93 MEQ/L Carbon Dioxide Level 36.6 MEQ/L Anion Gap 7 MEQ/L Blood Urea Nitrogen 19 MG/DL Creatinine 0.92 MG/DL Estimat Glomerular Filtration 61 ML/MIN Rate Random Glucose 84 MG/DL Calcium Level 7.9 MG/DL Phosphorus Level 3.1 MG/DL Magnesium Level 2.3 MG/DL IMAGING: Chest X-Ray 04/04/17 0600 Signed Impressions: Service Date/Time: Tuesday, April 04, 2017 04:43 - CONCLUSION: Slight improved aeration right lower lobe. Antwan Jensen MD Chest X-Ray 04/02/17 0600 Signed Impressions: Service Date/Time: Sunday, April 02, 2017 03:28 - CONCLUSION: No significant change has occurred. Antwan Jensen MD Chest X-Ray 04/01/17 0000 Signed Impressions: Service Date/Time: Saturday, April 01, 2017 09:23 - CONCLUSION: 1. Stable left basilar opacity likely representing pleural effusion with associated volume loss and/or consolidation. 2. There is new diffuse hazy opacity over the right lung. However, given the patient's rotation this may explain the appearance and interval change. Suggest attention to this on followup imaging. Raoul Jeffries MD Antibiotics meropenem Allergies: Coded Allergies: Penicillin (Verified Allergy, Severe, 03/25/17) *MDRO Multi-Drug Resistant Organism (Verified Adverse Reaction, Unknown, ) MRSA (abscess) 01/21/17 Objective . Vital Signs Date Time Temp Pulse Resp B/P Pulse Ox O2 Delivery O2 Flow Rate FiO2 04/06/17 14:00 109 04/06/17 13:34 108 21 120/76 95 04/06/17 13:30 113 28 95 04/06/17 13:00 104 19 81/53 95 04/06/17 12:30 100 14 99 04/06/17 12:00 98.1 77 16 120/76 100 04/06/17 12:00 109 04/06/17 12:00 93 28 119/61 94 04/06/17 11:30 104 18 97 04/06/17 11:00 116 1 107/71 99 04/06/17 10:30 114 20 98 04/06/17 10:00 118 24 122/60 95 04/06/17 10:00 109 04/06/17 09:30 121 33 95 04/06/17 09:21 121 24 128/64 94 04/06/17 09:00 117 21 134/71 100 04/06/17 08:37 100 Partial Rebreather 12.00 04/06/17 08:00 91 04/06/17 08:00 100 Partial Non-Rebreather 12.00 04/06/17 08:00 97.9 77 12 144/67 100 04/06/17 06:00 109 04/06/17 04:00 98.3 71 13 106/56 100 04/06/17 04:00 80 04/06/17 02:00 81 04/06/17 00:00 98.1 75 24 111/59 82 04/06/17 00:00 84 04/05/17 22:10 100 Partial Rebreather 10.00 04/05/17 22:00 90 04/05/17 20:00 91 04/05/17 20:00 97.9 77 12 144/67 100 04/05/17 19:00 100 Partial Non-Rebreather 12.00 04/05/17 18:00 79 04/05/17 04/05/17 04/06/17 15:00 23:00 07:00 Intake Total 369 ml 120 ml Output Total 700 ml 450 ml 1000 ml Balance -700 ml -81 ml -880 ml Intake Oral 120 ml IV Total 369 ml Output Urine Total 700 ml 450 ml 1000 ml # Bowel Movements 0 0 0 . Laboratory Tests Test 04/05/17 04/06/17 05:12 07:38 White Blood Count 19.3 TH/MM3 13.8 TH/MM3 Red Blood Count 2.77 MIL/MM3 2.64 MIL/MM3 Hemoglobin 8.2 GM/DL 7.8 GM/DL Hematocrit 24.9 % 23.8 % Mean Corpuscular Volume 90.0 FL 90.0 FL Mean Corpuscular Hemoglobin 29.7 PG 29.7 PG Mean Corpuscular Hemoglobin 33.0 % 33.0 % Concent Red Cell Distribution Width 17.7 % 18.4 % Platelet Count 84 TH/MM3 84 TH/MM3 Mean Platelet Volume 8.6 FL 8.8 FL Neutrophils (%) (Auto) 18.0 % % Lymphocytes (%) (Auto) 11.2 % % Monocytes (%) (Auto) 67.5 % % Eosinophils (%) (Auto) 0.3 % % Basophils (%) (Auto) 3.0 % % Neutrophils # (Auto) 3.5 TH/MM3 TH/MM3 Lymphocytes # (Auto) 2.2 TH/MM3 TH/MM3 Monocytes # (Auto) 13.0 TH/MM3 TH/MM3 Eosinophils # (Auto) 0.1 TH/MM3 TH/MM3 Basophils # (Auto) 0.6 TH/MM3 TH/MM3 CBC Comment AUTO DIFF AUTO DIFF Differential Total Cells 100 100 Counted Neutrophils % (Manual) 30 % 22 % Band Neutrophils % 3 % 1 % Lymphocytes % 11 % 16 % Monocytes % 15 % 19 % Neutrophils # (Manual) 7.7 TH/MM3 5.2 TH/MM3 Metamyelocytes 3 % 2 % Myelocytes 4 % 9 % Differential Comment FINAL DIFF FINAL DIFF MANUAL MANUAL Blastocytes 34 % 27 % Platelet Estimate LOW LOW Platelet Morphology Comment NORMAL NORMAL Red Cell Morphology Comment NORMAL Promyelocytes 4 % Helmet Cells Acanthocytes OCC Laboratory Tests Test 04/06/17 07:38 Sodium Level 132 MEQ/L Potassium Level 4.0 MEQ/L Chloride Level 89 MEQ/L Carbon Dioxide Level 38.9 MEQ/L Anion Gap 4 MEQ/L Blood Urea Nitrogen 19 MG/DL Creatinine 0.87 MG/DL Estimat Glomerular Filtration 65 ML/MIN Rate Random Glucose 89 MG/DL Calcium Level 8.5 MG/DL Phosphorus Level 2.7 MG/DL Total Bilirubin 0.5 MG/DL Aspartate Amino Transf 67 U/L (AST/SGOT) Alanine Aminotransferase 36 U/L (ALT/SGPT) Alkaline Phosphatase 111 U/L Total Creatine Kinase 78 U/L Total Protein 6.0 GM/DL Albumin 1.9 GM/DL Lipase 1619 U/L Imaging Last Impressions Chest X-Ray 04/06/17 0600 Signed Impressions: Service Date/Time: Thursday, April 06, 2017 04:41 - CONCLUSION: No significant change. Raoul Monroe MD Bone Biopsy CT 03/26/17 0000 Signed Impressions: Service Date/Time: Sunday, March 26, 2017 14:48 - CONCLUSION: 1. Uncomplicated CT guided bone marrow aspirate. 2. Uncomplicated CT guided bone marrow biopsy. Raoul Jeffries MD Lumbar Spine CT 03/25/172131 Signed Impressions: Service Date/Time: Sunday, March 26, 2017 01:12 - CONCLUSION: 1. Degenerative disc changes greatest at the L4-5 and L5-S1 levels with broad-based disc osteophyte complexes. There is lateral recess stenosis at the L5-S1 level. 2. Mild retrolisthesis of L5 on S1 with degenerative disc change and broad-based disc osteophyte complex. 3. Narrowing of the neuroforamina bilaterally at the L4-5 and L5-S1 levels. 4. Degenerative disc change. Balaji Solorio MD CT Angiography 03/25/172128 Signed Impressions: Service Date/Time: Sunday, March 26, 2017 01:09 - CONCLUSION: 1. Mild consolidation along the left fissure and lower lobe. This could indicate early pneumonia. 2. No evidence of pulmonary embolism. Balaji Solorio MD Physical Exam GENERAL: No acute distress. On 100% NRB HEAD, EYES, EARS, NOSE, AND THROAT: No icterus. Moist mucosa. NECK: Supple without adenopathy. LUNGS: Decreased breath sounds. Few scattered rhonchio HEART: Irregular rate and rhythm. No murmurs or rubs or gallops. ABDOMEN: Bowel sounds present, obese, soft, nontender. No hepatospenomegaly or masses EXTREMITIES: No clubbing or cyanosis or edema. SKIN: No rash. NEUROLOGIC: Awake, alert. Nonfocal. PSYCHIATRIC: Calm. Assessment & Plan Remarks IMPRESSION 1. sepsis -r/o 2. Pneumonia. vs non infection penumonitis with secvere hypoxia - almost 2 weeks of empirc abx w/o improvment of hypoxia 3. Leukocytosis. - ANC is wnl; most of her leukocytosis stemming from lhematological malignancy 4. Acute kidney disease. improving. 5. Acute myeloid leukemia. Receiving chemo. 6. Penicillin allergy. RECOMMENDATIONS 1. cont Meropenem. for now 2. chk sputum clx 3. Needs sputum clx vs bronch to establish ethiology of her pulmonary infiltrates dw Dr Raoul Mello,Krysten Ferris MD Apr 06, 2017 16:50
[2017-04-06] MEDS ORDERED: SODIUM CHLOR 0.9% IV ONE (18:00)
[2017-04-06] MEDS ORDERED: DECITABINE IV ONE (18:00)
--- NOTE | 2017-04-06 18:18 | HHI.PR ---
Subjective Interval History Alert, verbal, she was confused last night, occasional visual hallucinations, still complaining of pain along the rib cage bilaterally Review of Systems Constitutional Constitutional Remarks 10 systems reviewed and otherwise negative Vitals/Results Intake & Output 04/05/17 04/05/17 04/06/17 15:00 23:00 07:00 Intake Total 369 ml 120 ml Output Total 700 ml 450 ml 1000 ml Balance -700 ml -81 ml -880 ml Intake Oral 120 ml IV Total 369 ml Output Urine Total 700 ml 450 ml 1000 ml # Bowel Movements 0 0 0 Vital Signs Vital Signs Date Time Temp Pulse Resp B/P Pulse Ox O2 Delivery O2 Flow Rate FiO2 04/06/17 16:00 98.0 73 24 141/68 100 04/06/17 16:00 109 04/06/17 14:00 109 04/06/17 13:34 108 21 120/76 95 04/06/17 13:30 113 28 95 04/06/17 13:00 104 19 81/53 95 04/06/17 12:30 100 14 99 04/06/17 12:00 98.1 77 16 120/76 100 04/06/17 12:00 109 04/06/17 12:00 93 28 119/61 94 04/06/17 11:30 104 18 97 04/06/17 11:00 116 1 107/71 99 04/06/17 10:30 114 20 98 04/06/17 10:00 118 24 122/60 95 04/06/17 10:00 109 04/06/17 09:30 121 33 95 04/06/17 09:21 121 24 128/64 94 04/06/17 09:00 117 21 134/71 100 04/06/17 08:37 100 Partial Rebreather 12.00 04/06/17 08:00 91 04/06/17 08:00 100 Partial Non-Rebreather 12.00 04/06/17 08:00 97.9 77 12 144/67 100 04/06/17 06:00 109 04/06/17 04:00 98.3 71 13 106/56 100 04/06/17 04:00 80 04/06/17 02:00 81 04/06/17 00:00 98.1 75 24 111/59 82 04/06/17 00:00 84 04/05/17 22:10 100 Partial Rebreather 10.00 04/05/17 22:00 90 04/05/17 20:00 91 04/05/17 20:00 97.9 77 12 144/67 100 04/05/17 19:00 100 Partial Non-Rebreather 12.00 CBC/BMP: 04/06/17 0738 04/06/17 0738 Lab Results Laboratory Tests Test 04/06/17 07:38 White Blood Count 13.8 TH/MM3 Red Blood Count 2.64 MIL/MM3 Hemoglobin 7.8 GM/DL Hematocrit 23.8 % Mean Corpuscular Volume 90.0 FL Mean Corpuscular Hemoglobin 29.7 PG Mean Corpuscular Hemoglobin 33.0 % Concent Red Cell Distribution Width 18.4 % Platelet Count 84 TH/MM3 Mean Platelet Volume 8.8 FL Neutrophils (%) (Auto) % Lymphocytes (%) (Auto) % Monocytes (%) (Auto) % Eosinophils (%) (Auto) % Basophils (%) (Auto) % Neutrophils # (Auto) TH/MM3 Lymphocytes # (Auto) TH/MM3 Monocytes # (Auto) TH/MM3 Eosinophils # (Auto) TH/MM3 Basophils # (Auto) TH/MM3 CBC Comment AUTO DIFF Differential Total Cells 100 Counted Neutrophils % (Manual) 22 % Band Neutrophils % 1 % Lymphocytes % 16 % Monocytes % 19 % Neutrophils # (Manual) 5.2 TH/MM3 Metamyelocytes 2 % Myelocytes 9 % Promyelocytes 4 % Differential Comment FINAL DIFF MANUAL Blastocytes 27 % Platelet Estimate LOW Platelet Morphology Comment NORMAL Helmet Cells Acanthocytes OCC Sodium Level 132 MEQ/L Potassium Level 4.0 MEQ/L Chloride Level 89 MEQ/L Carbon Dioxide Level 38.9 MEQ/L Anion Gap 4 MEQ/L Blood Urea Nitrogen 19 MG/DL Creatinine 0.87 MG/DL Estimat Glomerular Filtration 65 ML/MIN Rate Random Glucose 89 MG/DL Calcium Level 8.5 MG/DL Phosphorus Level 2.7 MG/DL Total Bilirubin 0.5 MG/DL Aspartate Amino Transf 67 U/L (AST/SGOT) Alanine Aminotransferase 36 U/L (ALT/SGPT) Alkaline Phosphatase 111 U/L Total Creatine Kinase 78 U/L Total Protein 6.0 GM/DL Albumin 1.9 GM/DL Lipase 1619 U/L Digoxin Level 1.6 NG/ML Physical Exam General General Appearance: Well Developed, Well Nourished, No Acute Distress, Anxious , Obese Eyes Eye Exam: Pupils Equal, Pupils Reactive Ears & Nose Ears & Nose Exam: Nasal Mucosa [place] Throat Throat Exam: Oral Mucosa [place] & Moist Neck Neck Exam: Neck Supple, Trachea Midline Pulmonary Resp Exam: Breath Sounds Equal, Crackles, Decreased Bases Cardiology CV Exam: Regular, Normal Sinus Rhythm, Good Perfusion Gastrointestinal/Abdomen GI Exam: Soft, Non-Tender, Bowel Sounds Present, Non-Distended Musculoskeletal MS Exam: Normal Tone Integumentary Skin Exam: Warm, Dry Extremeties Extremities Exam: No Edema, Pedal Pulses Palpable Neurologic Neuro Exam: Alert, Awake, Oriented, Speech Clear, Moving All Extremities, No Focal Deficits Psychiatric Psych Exam: Appropriate Responses VTE Prophylaxis VTE Prophylaxis Device: SCDs Assessment/Plan Problem List: (1) Sepsis (2) Anemia (3) Thrombocytopenia (4) Elevated white blood cell count (5) Pneumonia (6) CKD (chronic kidney disease) stage 3, GFR 30-59 ml/min (7) AML (acute myeloid leukemia) (8) Low blood pressure (9) Tachycardia (10) Hx TIA/stroke w/o resid (11) hx cerebral aneurysm (12) Atrial fibrillation with RVR Assessment/Plan Assessment Lipase is elevated, questionable etiology Sepsis Pneumonia Hypoxemia Anemia Thrombocytopenia Obesity Acute myeloid leukemia, Received Dacogen Acute kidney injury, improved Paroxysmal atrial tachycardia/atrial fibrillation 4.3 cm ascending aorta Left ventricular hypertrophy Normal ejection fraction History of TIA, chronic kidney disease, constipation, back pain, penicillin allergy, Management Right upper quadrant ultrasound Continue Amiodarone Digoxin Lopressor Continue antibiotics, currently on meropenem, infectious disease following Monitor CBC, hematology oncology following when necessary IV Lopressor for sustained heart rate above 120 Cardiology following Supplemental oxygen Follow renal function Follow electrolytes and replace as needed Possible need for transfusion Discussed with oncologist Discussed with patient and her family at her bedside Discussed with nurse 35 minutes Problem Qualifiers (1) Sepsis: Qualified Code: A41.9 - Sepsis, due to unspecified organism (2) Anemia: Qualified Code: D64.9 - Anemia, unspecified type (3) Elevated white blood cell count: Qualified Code: D72.829 - Leukocytosis, unspecified type (4) Pneumonia: Qualified Code: J18.1 - Pneumonia of left lower lobe due to infectious organism (5) AML (acute myeloid leukemia): Qualified Code: C92.00 - Acute myeloid leukemia not having achieved remission (6) Low blood pressure: Qualified Code: I95.9 - Hypotension, unspecified hypotension type Qamar Paniagua MD Apr 06, 2017 18:18
--- NOTE | 2017-04-06 18:51 | RADRPT ---
EXAM DATE/TIME: 04/06/2017 17:45 [facility] COMPARISON: No previous studies available for comparison. INDICATIONS : Right upper quadrant pain and abnormal labs. MEDICAL HISTORY : Hypertension. Hypothyroidism. Myocardial infarction. Headaches. Arthritis. Osteoporosis. Brain aneury sms. Angioma. SURGICAL HISTORY : Appendectomy. section. Spinal surgery. Varicose vein removal. ENCOUNTER: Initial ACUITY: 3 days PAIN SCORE: 6/10 LOCATION: Right upper quadrant MEASUREMENTS: LIVER: 15.7 cm length COMMON DUCT: 3 mm RIGHT KIDNEY: 10.9 x 6.5 x 4.6 cm FINDINGS: LIVER: Increased echotexture without focal lesion or ductal dilatation. COMMON DUCT: No intraluminal mass or stone visualized. GALLBLADDER: Contains no stones, demonstrates no wall thickening or pericholecystic fluid. PANCREAS: The visualized portions are within normal limits. RIGHT KIDNEY: No evidence of hydronephrosis, stone, or mass. CONCLUSION: 1. Fatty liver. Right pleural effusion. No gallstones or biliary ductal dilatation. Rivas Tejeda MD on April 06, 2017 at 18:48 Board Certified Radiologist. This report was verified electronically.
[2017-04-06] MEDS: lamoTRIgine 25 MG TAB PO SCH (20:48)
[2017-04-07] VITALS (17 sets, daily range): BP systolic 90–125; BP diastolic 51–66; PULSE 63–127; RESP 11–22; TEMP 97.9–98.6; O2SAT 93–100
[2017-04-07] MEDS: ACETAMINOPHEN/HYDROcodone 325 MG/10 MG TAB PO PRN ×4 (00:43→20:19)
--- NOTE | 2017-04-07 05:08 | RADRPT ---
EXAM DATE/TIME: 04/07/2017 04:07 [facility] COMPARISON: CHEST SINGLE AP, April 06, 2017, 4:41. INDICATIONS : Shortness of breath, possible pulmonary disease. MEDICAL HISTORY : Hypertension. Hypothyroidism. Myocardial infarction. Arthritis Cerebral aneurysm SURGICAL HISTORY : Appendectomy. section. Spinal surgery ENCOUNTER: Subsequent ACUITY: 2 weeks PAIN SCORE: Non-responsive. LOCATION: Bilateral chest FINDINGS: A single view of the chest demonstrates minimal bibasilar densities. Linear left upper lobe density. Heart mildly enlarged. The cardiomediastinal contours are unremarkable. Osseous structures are inta ct. CONCLUSION: Minimal bibasilar densities. Stable left upper lobe density. Beau Winter MD on April 07, 2017 at 5:06 Board Certified Radiologist. This report was verified electronically.
[2017-04-07] MEDS: LEVOTHYROXINE SODIUM 100 MCG TAB PO SCH (05:39)
[2017-04-07] MEDS: MEROPENEM INJ 1,000 MG in SODIUM CHLORIDE 0.9% INJ 100 ML IV SCH ×3 (05:40→22:05)
[2017-04-07] MEDS: INSULIN ASPART SUPPLEMENTAL SCALE SQ SCH ×4 (05:41→20:20)
[2017-04-07] MEDS: NYSTATIN SUSP 500,000 U/5 ML CUP SWISH-SWAL SCH ×4 (08:01→20:18)
[2017-04-07] MEDS: ENOXAPARIN SODIUM 40 MG/0.4 ML SYRINGE SQ SCH (08:01)
[2017-04-07] MEDS: ALLOPURINOL 100 MG TAB PO SCH ×2 (08:01→20:20)
[2017-04-07] MEDS: AMIODARONE 200 MG TAB PO SCH (08:02)
[2017-04-07] MEDS: DIGOXIN 0.125 MG TAB PO SCH (08:02)
[2017-04-07] MEDS: FAMOTIDINE 20 MG TAB PO SCH ×2 (08:02→20:21)
[2017-04-07] MEDS: ATORVASTATIN 40 MG TAB PO SCH (08:02)
[2017-04-07] MEDS: DOCUSATE SODIUM 50 MG/SENNA 8.6 MG TAB PO SCH ×2 (08:03→20:18)
[2017-04-07] MEDS: FUROSEMIDE 40 MG/4 ML VIAL IV PUSH SCH ×2 (08:03→20:17)
[2017-04-07] MEDS: METOPROLOL TARTRATE 50 MG TAB PO SCH ×2 (08:03→20:20)
[2017-04-07] MEDS: SODIUM CHLORIDE 0.9% FLUSH 10 ML FLUSH IV FLUSH SCH ×2 (08:08→20:17)
--- NOTE | 2017-04-07 10:57 | HHI.CCPN ---
Subjective Remarks/Hospital Course This is a 66-year-old female, that presented to the hospital with shortness of breath productive cough and generalized fatigue upon admission. Subsequent laboratory and imaging studies reveal a pneumonia. 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 Since admission the patient was placed on empiric antibiotic Azactam. Blood culture negative growth today, urine culture showed 50-100,000 of gram-positive chance. Hematology oncology initiated Dacogen first dose yesterday. The patient was noted to have a cardiac rhythm A. fib RVR cardiology was consulted, Dr. Chang the patient was placed on amiodarone 400 mg twice a day received a dose of digoxin last evening. The patient early this a.m., had A. fib RVR with dyspnea and hypoxemia with O2 sat duration in the 80s. Critical care medicine was consulted. Upon meeting and evaluating the patient the patient was noted to be in a sinus tachycardia with a heart rate [id number], with an O2 saturation on nonrebreather of 91-92%. The patient received 20 mg IV Lasix upon arrival, with subsequent diuresis of approximately 1 L, and decreased in FiO2 requirements. The patient was noted to have a significant leukocytosis, with 1 % bands, pro-calcitonin level was drawn ID was consulted. 04/01: The patient required increasing FiO2 requirements overnight. The patient currently on nonrebreather mask O2 saturation 94%. Stat chest x-ray obtain results pending, stat ABG results pending. Discussion with patient and son regarding the probable likelihood of intubation this a.m.. All questions answered. The patient remains nothing by mouth at this time. ID was consulted yesterday regarding the leukocytosis and elevation in temperature, following recommendations. 04/02: No acute events overnight. Patient's oxygen requirements remain at 4 L/m nasal cannula. Palliative care team in extensive discussion with family, patient CODE STATUS been made DNR/DNI. Heart healthy diet has been resumed. 04/03: Overnight the patient, had increasing FiO2 requirements required partial nonrebreather mask, and also received 3 doses of Ativan. The patient became tachycardic and received metoprolol IV subsequently at 2 AM went into A. fib RVR and received 15 mg Cardizem IV push. The patient currently telemetry revealing ST 113. Thomson reinserted with strict TARNA hourly monitoring patient to receive Dacogen today. 04/04: Slight improvement in chest x-ray today. Patient still remains on high FiO2 requirements. Patient continues on twice a day diuretic dosing. Continue hourly monitoring for even I's and O's every 24 hours when patients undergoing Dacogen therapy. Patient to have therapy and still today third day of dosing. A chin complains of pain on inspiration well controlled with PRN Lortab The patient's tolerating a diet. Subjective 04/05 - last dose of Dectabine 40 mg 1 today. Currently on partial nonrebreather mask. Remains tachycardic. Tolerating diet. Positive BM. 04/06: Remains on high-flow oxygen. FiO2 just reduced to 70%. Complaints of pleuritic chest pain bilaterally. Chest x-ray still showing bibasilar infiltrate 04/07: Patient remains hypoxic despite negative fluid balance. Chest x-ray shows persistent bilateral infiltrates. I will get CT of the chest to better evaluate infiltrates. Also 2-D echo with bubble study to rule out shunt Objective Vital Signs Date Time Temp Pulse Resp B/P Pulse Ox O2 Delivery O2 Flow Rate FiO2 04/07/17 07:35 96 High Flow Nasal Cannula 20.00 70 04/07/17 06:00 117 04/07/17 06:00 96/66 04/07/17 05:00 14 04/07/17 04:00 98.3 Intake and Output 04/06/17 04/06/17 04/07/17 08:00 16:00 00:00 Intake Total 120 ml 470 ml 591 ml Output Total 1000 ml 850 ml 700 ml Balance -880 ml -380 ml -109 ml Result Diagram: 04/06/17 0738 04/06/17 0738 Imaging Last Impressions Chest X-Ray 04/04/17 0600 Signed Impressions: Service Date/Time: Tuesday, April 04, 2017 04:43 - CONCLUSION: Slight improved aeration right lower lobe. Antwan Jensen MD Bone Biopsy CT 03/26/17 0000 Signed Impressions: Service Date/Time: Sunday, March 26, 2017 14:48 - CONCLUSION: 1. Uncomplicated CT guided bone marrow aspirate. 2. Uncomplicated CT guided bone marrow biopsy. Raoul Jeffries MD Lumbar Spine CT 03/25/172 Signed Impressions: Service Date/Time: Sunday, March 26, 2017 01:12 - CONCLUSION: 1. Degenerative disc changes greatest at the L4-5 and L5-S1 levels with broad-based disc osteophyte complexes. There is lateral recess stenosis at the L5-S1 level. 2. Mild retrolisthesis of L5 on S1 with degenerative disc change and broad-based disc osteophyte complex. 3. Narrowing of the neuroforamina bilaterally at the L4-5 and L5-S1 levels. 4. Degenerative disc change. Balaji Solorio MD CT Angiography [id number]/25/[id number] Signed Impressions: Service Date/Time: Sunday, March 26, 2017 01:09 - CONCLUSION: 1. Mild consolidation along the left fissure and lower lobe. This could indicate early pneumonia. 2. No evidence of pulmonary embolism. Balaji Solorio MD Objective Remarks GENERAL: Obese female on high flow nasal cannula SKIN: Warm and dry. No rash HEAD: Atraumatic. Normocephalic. EYES: Pupils equal and round. No scleral icterus. No injection or drainage. ENT: No nasal bleeding or discharge. Mucous membranes pink and moist. NECK: Trachea midline. No JVD. CARDIOVASCULAR: Tachycardic rate, regular rhythm. S1, S2. No S4. RESPIRATORY: On high flow nasal cannula at 70% FiO2. Breath sounds equal bilaterally. Diminished breath sounds at the bases GASTROINTESTINAL: Abdomen soft, protuberant ,non-tender, nondistended. No guarding. MUSCULOSKELETAL: Extremities without clubbing, cyanosis, or edema. No obvious deformities. NEUROLOGICAL: Awake and alert. No gross focal/sensory deficits. Follows commands in all 4 extremities. Procedures 04/02,04/03,04/04 Dacogen therapy Date of Insertion: Apr 03, 2017 A/P Assessment and Plan Assessment Acute hypoxemic Respiratory failure, persistent hypoxia A. fib RVR with conversion to Sinus tachycardia Sepsis Bibasilar pneumonia Leukocytosis improving Bilateral Pleural effusions Acute myeloid leukemia Anemia/normocytic Thrombocytopenia CKD stage 3 H/O chronic HTN H/O cerebral aneurysm H/O CVA with residual weakness Hypothyroidism Mild protein calorie malnutrition Morbid obesity Chronic pain syndrome NOS Constipation-resolved Plan Neurologic: - Maintain sleep hygiene, avoid ICU delirium, maintains stimulation during the day - Restoril 15 mg at bedtime when necessary for insomnia, avoid multiple disruptions at night - Senath 10/325 PRN pain 7-10. Acetaminophen for fever/pain 126 - Lamictal 50 mg at night - 04/03 Discontinued Ativan Respiratory: -Maintain O2 sat greater than 90%. Currently on high flow nasal cannula and 70 % FiO2 -Scheduled continue bronchodilators 4 times a day scheduled -Wean O2 as tolerated, maintain head of bed 30 -CT chest to better evaluate infiltrate Cardiovascular: -Metoprolol 2.5 mg IV every 6 hours when necessary for heart rate greater than 100bpm -Cardiology following- Dr. Chang/ Ronny --04/04 Digoxin level 1.6 --Amiodarone 200 mg/ day, atorvastatin 10 mg by mouth daily. Metoprolol 50 twice a day Digoxin 0.125 mg Management per Cardiology -Continue Lasix 40 mg twice a day --2-D echo with bubble study to rule out shunt, patient persistently hypoxemic Renal: - Maintain thomson- patient receiving Dacogen therapy strict hourly I&O's indicated FEN/GI: -Monitor electrolytes -Electrolyte replacement per ICU protocol -Heart healthy diet -Bowel regimen with Ramya-Colace Heme/ID: -Hematology oncology following Dr. Yarbrough -Allopurinol 100 mg twice a day continued per hematology oncology-prophylaxis for tumor lysis -Dacogen 40 mg IV daily dosing per Hematology-Oncology schedule -Transfuse for platelet count less than 50,000 Endocrine: -Levothyroxine 100 mcgs/day -Glucose monitoring per ICU protocol -- SSI Prophylaxis: GI Prophylaxis Pepcid DVT Prophylaxis -- SCDs No pharmacological DVT prophylaxis in the setting of thrombocytopenia defer to HematologyOncology Lines: PIV x 2 Dispo: Level 3 Discussed with NEWS DEPARTMENT INTERN ,patient and daughter at bedside. Patient CODE STATUS changed to intubation only after extensive discussion with palliative care and other family members. . Patient's pulmonary status continues to be tenuous possibility of intubation. Paul Silveira MD Apr 07, 2017 10:57
[2017-04-07 11:17] LABS: HEMATOCRIT 23.8 % (35.0-46.0); MEAN CELL VOLUME 90.4 FL (80.0-100.0); MEAN CORPUSCULAR HEMOGLOBIN 30.2 PG (27.0-34.0); MEAN CORPUSCULAR HGB CONC 33.4 % (32.0-36.0); PLATELET COUNT 87 TH/MM3 (150-450); RED BLOOD COUNT 2.63 MIL/MM3 (4.00-5.30); WHITE BLOOD COUNT 9.3 TH/MM3 (4.0-11.0)
[2017-04-07 11:20] LABS: HEMO FLAGS AUTO DIFF
[2017-04-07 11:33] LABS: ANION GAP 6 MEQ/L (5-15); AST (GOT) 59 U/L (15-37); BICARBONATE 39.7 MEQ/L (21.0-32.0); BLOOD UREA NITROGEN 22 MG/DL (7-18); CHLORIDE 90 MEQ/L (98-107); GLOMERULAR FILTRATION RATE 58 ML/MIN (>89); SODIUM (NA) 136 MEQ/L (136-145)
[2017-04-07 11:37] LABS: ALKALINE PHOSPHATASE 107 U/L (45-117); ALT (GPT) 37 U/L (10-53); TOTAL BILIRUBIN ADULT 0.5 MG/DL (0.2-1.0)
--- NOTE | 2017-04-07 11:38 | HHI.PR ---
Subjective Remarks 66 YO [place] female with Resp insuff, Myeloid leukemia had Chemo mild sob Appetite fair On High flow 02 Son at Going for CT chest Objective Vital Signs Vital Signs Date Time Temp Pulse Resp B/P Pulse Ox O2 Delivery O2 Flow Rate FiO2 04/07/17 08:00 81 04/07/17 08:00 98.0 81 18 91/55 96 04/07/17 07:35 96 High Flow Nasal Cannula 20.00 70 04/07/17 07:00 Under Presser 04/07/17 06:00 117 04/07/17 06:00 114 96/66 97 04/07/17 05:00 108 14 92/53 99 04/07/17 04:00 97 04/07/17 04:00 98.3 97 17 96/51 99 04/07/17 03:00 66 13 102/57 100 04/07/17 02:00 71 14 112/56 100 04/07/17 02:00 71 04/07/17 01:00 64 13 116/57 100 04/07/17 00:00 63 04/07/17 00:00 98.3 63 11 108/55 100 04/06/17 23:00 66 13 117/54 100 04/06/17 22:00 74 04/06/17 22:00 74 20 108/56 99 04/06/17 21:20 100 Partial Rebreather 13.00 04/06/17 21:00 76 20 125/61 100 04/06/17 20:00 97.9 79 26 153/71 100 04/06/17 20:00 100 Partial Non-Rebreather 13.00 04/06/17 20:00 76 04/06/17 19:00 76 17 156/73 100 04/06/17 16:00 98.0 73 24 141/68 100 04/06/17 16:00 109 04/06/17 14:00 109 04/06/17 13:34 108 21 120/76 95 04/06/17 13:30 113 28 95 04/06/17 13:00 104 19 81/53 95 04/06/17 12:30 100 14 99 04/06/17 12:00 98.1 77 16 120/76 100 04/06/17 12:00 109 04/06/17 12:00 93 28 119/61 94 I/O 804/06/17 04/06/17 04/07/17 04/07/17 04/07/17 07:00 15:00 23:00 07:00 15:00 23:00 Intake Total 120 ml 470 ml 591 ml 220 ml Output Total 1000 ml 850 ml 700 ml 850 ml Balance -880 ml -380 ml -109 ml -630 ml Intake Oral 120 ml 320 ml 120 ml 120 ml IV Total 150 ml 471 ml 100 ml Output Urine Total 1000 ml 850 ml 700 ml 850 ml # Bowel Movements 0 0 0 Result Diagram: 04/07/17 1012 04/07/17 1042 Objective Remarks GENERAL: WBWn Female, mild sob SKIN: Warm and dry. HEAD: Normocephalic. EYES: No scleral icterus. No injection or drainage. NECK: Supple, trachea midline. No JVD or lymphadenopathy. CARDIOVASCULAR: Regular rate and rhythm without murmurs, gallops, or rubs. RESPIRATORY: Breath sounds equal bilaterally. No accessory muscle use. GASTROINTESTINAL: Abdomen soft, non-tender, nondistended. MUSCULOSKELETAL: No cyanosis, or edema. BACK: Nontender without obvious deformity. No CVA tenderness. A/P Assessment and Plan Resp Insuff Hypoxia Left basal infilt myeloid Leukemia HTN Partial sz PLAN: High flow 02 Wean 02 to keep sat >90% Aerosol nebs DW pt and Family at BS. Check CT Chest and Echo Jorge Thibodeaux MD Apr 07, 2017 11:38
--- NOTE | 2017-04-07 11:45 | PD.ONC.PN ---
Subjective Subjective Remarks Afebrile overnight Patient now on high O2 flow cannula States her breathing was better on the mask however she is doing okay on the cannula Concerned that she has not had a bowel movement in a few days Objective Data Date Time Temp Pulse Resp B/P Pulse Ox O2 Delivery O2 Flow Rate FiO2 04/07/17 08:00 81 04/07/17 08:00 98.0 81 18 91/55 96 04/07/17 07:35 96 High Flow Nasal Cannula 20.00 70 04/07/17 07:00 Benefits Administrator 04/07/17 06:00 117 04/07/17 06:00 114 96/66 97 04/07/17 05:00 108 14 92/53 99 04/07/17 04:00 97 04/07/17 04:00 98.3 97 17 96/51 99 04/07/17 03:00 66 13 102/57 100 04/07/17 02:00 71 14 112/56 100 04/07/17 02:00 71 04/07/17 01:00 64 13 116/57 100 04/07/17 00:00 63 04/07/17 00:00 98.3 63 11 108/55 100 04/06/17 23:00 66 13 117/54 100 04/06/17 22:00 74 04/06/17 22:00 74 20 108/56 99 04/06/17 21:20 100 Partial Rebreather 13.00 04/06/17 21:00 76 20 125/61 100 04/06/17 20:00 97.9 79 26 153/71 100 04/06/17 20:00 100 Partial Non-Rebreather 13.00 04/06/17 20:00 76 04/06/17 19:00 76 17 156/73 100 04/06/17 16:00 98.0 73 24 141/68 100 04/06/17 16:00 109 04/06/17 14:00 109 04/06/17 13:34 108 21 120/76 95 04/06/17 13:30 113 28 95 04/06/17 13:00 104 19 81/53 95 04/06/17 12:30 100 14 99 04/06/17 12:00 98.1 77 16 120/76 100 04/06/17 12:00 109 04/06/17 12:00 93 28 119/61 94 Result Diagram: 04/07/17 1012 04/07/17 1042 Laboratory Results Laboratory Tests Test 04/07/17 04/07/17 10:12 10:42 White Blood Count 9.3 TH/MM3 Red Blood Count 2.63 MIL/MM3 Hemoglobin 8.0 GM/DL Hematocrit 23.8 % Mean Corpuscular Volume 90.4 FL Mean Corpuscular Hemoglobin 30.2 PG Mean Corpuscular Hemoglobin 33.4 % Concent Red Cell Distribution Width 19.0 % Platelet Count 87 TH/MM3 Mean Platelet Volume 8.7 FL Neutrophils (%) (Auto) % Lymphocytes (%) (Auto) % Monocytes (%) (Auto) % Eosinophils (%) (Auto) % Basophils (%) (Auto) % Neutrophils # (Auto) TH/MM3 Lymphocytes # (Auto) TH/MM3 Monocytes # (Auto) TH/MM3 Eosinophils # (Auto) TH/MM3 Basophils # (Auto) TH/MM3 CBC Comment AUTO DIFF Sodium Level 136 MEQ/L Potassium Level 4.0 MEQ/L Chloride Level 90 MEQ/L Carbon Dioxide Level 39.7 MEQ/L Anion Gap 6 MEQ/L Blood Urea Nitrogen 22 MG/DL Creatinine 0.95 MG/DL Estimat Glomerular Filtration 58 ML/MIN Rate Random Glucose 149 MG/DL Calcium Level 8.2 MG/DL Magnesium Level 2.0 MG/DL Aspartate Amino Transf 59 U/L (AST/SGOT) Albumin 1.8 GM/DL Imaging Studies Last 24 hours Impressions Chest X-Ray 04/07/17 0600 Signed Impressions: Service Date/Time: Friday, April 07, 2017 04:07 - CONCLUSION: Minimal bibasilar densities. Stable left upper lobe density. Beau Winter MD Administered Medications Medications (Trade) Dose Ordered Sig/Tylor Route PRN Reason Start Time Stop Time Status Last Admin Dose Admin Sodium Chloride (NS Flush) 2 ml BID IV FLUSH 03/26/17 09:00 04/07/17 08:08 Acetaminophen (Tylenol) 650 mg Q4H PRN PO TEMP > 100.4 03/25/17 23:15 03/30/17 08:26 Ondansetron HCl (Zofran Inj) 4 mg Q6H PRN IVP NAUSEA OR VOMITING 03/25/17 23:15 03/29/17 21:36 Acetaminophen (Tylenol) 650 mg Q6H PRN PO PAIN SCALE 1 TO 2 03/25/17 23:15 03/26/17 08:14 Famotidine (Pepcid) 10 mg BID PO 03/26/17 09:00 04/07/17 08:02 Temazepam (Restoril) 15 mg HS PRN PO insomnia 03/26/17 00:30 04/05/17 21:11 Allopurinol (Zyloprim) 100 mg BID PO 03/26/17 09:00 04/07/17 08:01 Nystatin (Mycostatin Liq) 5 ml QID SWISH-SWAL 03/26/17 18:00 04/07/17 08:01 Atorvastatin Calcium (Lipitor) 40 mg DAILY PO 03/28/17 09:00 04/07/17 08:02 Lamotrigine (LaMICtal) 50 mg HS PO 03/27/17 21:00 04/06/17 20:48 Levothyroxine Sodium (Synthroid) 100 mcg DAILY@06 PO 03/28/17 06:00 04/07/17 05:39 Acetaminophen/ Hydrocodone Bitart ([place] 10-325 Mg) 1 tab Q4H PRN PO PAIN 7-10 03/28/17 09:15 04/07/17 10:10 Lorazepam 1 mg 1 mg Q6H PRN PO ANXIETY 03/28/17 09:15 Hold 04/03/17 06:52 Meropenem/Sodium Chloride (Merrem Inj/NS Inj) 100 ml @ 200 mls/hr Q8H IV 03/31/17 14:00 04/07/17 05:40 Senna/Docusate Sodium (Ramya-Colace) 1 tab BID PO 03/31/17 21:00 04/07/17 08:03 Magnesium Hydroxide (Milk Of Magnesia Liq) 30 ml Q12H PRN PO SEE LABEL COMMENTS 03/31/17 14:00 04/01/17 08:15 Bisacodyl (Dulcolax Supp) 10 mg DAILY PRN RECTAL SEE LABEL COMMENTS 03/31/17 14:00 04/01/17 08:14 Lactulose (Lactulose Liq) 30 ml DAILY PRN PO SEE LABEL COMMENTS 03/31/17 14:00 04/01/17 08:13 Metoprolol Tartrate (Lopressor Inj) 2.5 mg Q2H PRN IV PUSH tachycardia 04/02/17 20:15 04/04/17 22:42 Furosemide (Lasix Inj) 40 mg BID IV PUSH 04/03/17 09:00 04/07/17 08:03 Potassium Phosphate (K-Phos) 2,000 mg Q4H PRN PO For Phosphorus < 2.5 mg/dL 04/03/17 08:30 04/03/17 14:23 Digoxin (Lanoxin) 0.125 mg DAILY PO 04/04/17 09:00 04/07/17 08:02 Metoprolol Tartrate (Lopressor) 50 mg BID PO 04/04/17 21:00 04/07/17 08:03 Amiodarone HCl (Cordarone) 200 mg DAILY PO 04/04/17 09:00 04/07/17 08:02 Enoxaparin Sodium (Lovenox Inj) 40 mg Q24H SQ 04/05/17 09:00 04/07/17 08:01 Objective Remarks GENERAL: Older, obese female resting in bed in no distress SKIN: Warm and dry. No oozing from lines HEAD: Normocephalic. EYES: No scleral icterus. No injection or drainage. NECK: Supple, trachea midline. No JVD or lymphadenopathy. CARDIOVASCULAR: A. fib on monitor. Tachycardia RESPIRATORY: Lungs clear anteriorly. High flow O2 nasal cannula in place GASTROINTESTINAL: Abdomen soft, non-tender, nondistended. EXTREMITIES: SCDs to bilateral lower extremities MUSCULOSKELETAL: Generalized weakness NEUROLOGICAL: No obvious focal deficit. Awake, alert, and oriented x3. Assessment/Plan Problem List: (1) AML (acute myeloid leukemia) Status: Acute Plan: --Bone marrow biopsy indicates findings consistent with AML. FLT-3, CEPBA and NPM-1 analysis pending to help us prognosticate further. -- poor candidate for intensive induction remission therapy with anthracycline/ Cytarabine or HiDAC due to her cardiac and pulmonary issues and borderline performance status. --on allopurinol for tumor lysis prophylaxis --03/30/17: Dacogen day 1 started --03/31/17: transferred to [facility] [place] d/t hypoxia, tachycardia, hypotension --04/01: hold Dacogen. patient remains hypotensive, tachycardic, hypoxic -- 04/03 and 04/04/2017: Day 2 and day 3 Dacogen delivered. 04/06: Finished 1st treatment with Dacogen. (2) Atrial fibrillation with RVR Status: Acute Plan: -- A. fib with RVR associated with transient chest pain: --cardiology following --on digoxin, amiodarone Assessment Ms. Richard is a 66-year-old female with a 3-week history of progressive malaise, fatigue and weakness. She reports soreness of the throat and a dry cough, both of which have been chronic. She presented to the emergency department for further workup and management because her symptoms of fatigue progressed to the point where she had difficulty walking from her bedroom to her restroom. She called EMS last night due to the severity of the symptoms. Blood work performed in the emergency department indicates findings consistent with anemia, thrombocytopenia, her WBCs are grossly abnormal with findings of numerous immature cells and blasts in the peripheral circulation. 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 Peripheral smear was formally reviewed by our hematocrit pathologist who assessed the findings to be consistent with a high- grade myeloid malignancy most consistent with acute myeloid leukemia. Plan 1. Pt rec'd day 5 of treatment with decitabine yesterday. Overall tolerated well. Counts noted to be stable. 2. Continue Abx; noted WBC's have now normalized. 3. Monitor CBC 4. Supportive care Attending Statement The exam, history, and the medical decision-making described in the above note were completed with the assistance of the mid-level provider. I reviewed and agree with the findings presented. I attest that I had a [id number] encounter with the patient on the same day, and personally performed and documented my assessment and findings in the medical record. Pt seen and examined. Explained Vidaza mechanism of action and expectations from treatment. Answered questions. STill on venti mask. Problem Qualifiers (1) AML (acute myeloid leukemia): Qualified Code: C92.00 - Acute myeloid leukemia not having achieved remission Wendy Lopez Apr 07, 2017 11:45 Juliet Lin MD Apr 07, 2017 15:37
[2017-04-07 12:32] LABS: BANDS 5 % (0-6); BLASTS 20 % (0-0); EOSINOPHILS 1 % (0-4); METAMYELOCYTES 5 % (0-1); MYELOCYTES 5 % (0-0); NEUTROPHIL # MANUAL DIFF 4.4 TH/MM3 (1.8-7.7); POLYS (SEG NEUTROPHILS) 32 % (16-70); WBC DIFF SAMPLE 100
[2017-04-07 12:33] LABS: OVALOCYTES 1+ (NORMAL); PLATELET ESTIMATE SMEAR LOW (NORMAL); PLATELET MORPHOLOGY NORMAL (NORMAL); SCAN/DIFF FINAL DIFF MANUAL; SPHEROCYTES 1+ (NORMAL)
--- NOTE | 2017-04-07 12:49 | RADRPT ---
EXAM DATE/TIME: 04/07/2017 12:28 [facility] COMPARISON: CT PULMONARY ANGIOGRAM, March 26, 2017, 1:09. CHEST SINGLE AP, April 07, 2017, 4:07. INDICATIONS : Shortness of breath and abnormal chest plain film.. RADIATION DOSE: 9.65 CTDIvol (mGy) MEDICAL HISTORY : Cardiovascular disease. Hypothyroidism. Hypertension. SURGICAL HISTORY : Appendectomy. ENCOUNTER: Subsequent ACUITY: 1 week PAIN SCALE: 0/10 LOCATION: chest TECHNIQUE: Volumetric scanning of the chest was performed. Using automated exposure control and adjustment of t he mA and/or kV according to patient size, radiation dose was kept as low as reasonably achievable to obtain optimal diagnostic quality images. DICOM format image data is available electronically for r eview and comparison. Follow-up recommendations for detected pulmonary nodules are based at a minimum on nodule size and pa tient risk factors according to Fleischner Society Guidelines. FINDINGS: LUNGS: There is dense consolidation in the left lower lobe with air bronchograms. Biapical pleural-parenchym al changes noted consistent with scarring. There are no distinct masses or nodules. PLEURAE: There is small bilateral pleural effusions. Fluid is noted in the left fissure. MEDIASTINUM: The heart and great vessels demonstrate no acute abnormality. There is no mediastinal or hilar lymph adenopathy. Coronary artery calcifications are present. There is minimal pericardial fluid. The heart size is mildly prominent. AXILLAE: Within normal limits. No lymphadenopathy. MUSCULOSKELETAL: Within normal limits for patient age. MISCELLANEOUS: The visualized upper abdominal organs demonstrate no acute abnormality. CONCLUSION: 1. Dense consolidation in the left lower lobe with air bronchograms most characteristic of pneumonia. 2. Small bilateral pleural effusions. 3. The mild cardiomegaly with small amount of pericardial fluid. Balaji Solorio MD on April 07, 2017 at 12:44 Board Certified Radiologist. This report was verified electronically.
--- NOTE | 2017-04-07 16:25 | HHI.PR ---
Subjective Interval History Alert, oriented, anxious, still has pain along the lower edge of the rib cage bilaterally, worse with inspiration Review of Systems Constitutional Constitutional Remarks 10 systems reviewed and otherwise negative Vitals/Results Intake & Output 04/06/17 04/06/17 04/07/17 15:00 23:00 07:00 Intake Total 470 ml 591 ml 220 ml Output Total 850 ml 700 ml 850 ml Balance -380 ml -109 ml -630 ml Intake Oral 320 ml 120 ml 120 ml IV Total 150 ml 471 ml 100 ml Output Urine Total 850 ml 700 ml 850 ml # Bowel Movements 0 0 Vital Signs Vital Signs Date Time Temp Pulse Resp B/P Pulse Ox O2 Delivery O2 Flow Rate FiO2 04/07/17 16:00 98.6 64 22 107/52 98 04/07/17 14:00 67 04/07/17 12:00 98.3 94 20 90/53 93 04/07/17 12:00 94 04/07/17 11:10 14 04/07/17 10:00 127 04/07/17 08:00 81 04/07/17 08:00 98.0 81 18 91/55 96 04/07/17 07:35 96 High Flow Nasal Cannula 20.00 70 04/07/17 07:00 Granite Polisher 04/07/17 06:00 117 04/07/17 06:00 114 96/66 97 04/07/17 05:00 108 14 92/53 99 04/07/17 04:00 97 04/07/17 04:00 98.3 97 17 96/51 99 04/07/17 03:00 66 13 102/57 100 04/07/17 02:00 71 14 112/56 100 04/07/17 02:00 71 04/07/17 01:00 64 13 116/57 100 04/07/17 00:00 63 04/07/17 00:00 98.3 63 11 108/55 100 04/06/17 23:00 66 13 117/54 100 04/06/17 22:00 74 04/06/17 22:00 74 20 108/56 99 04/06/17 21:20 100 Partial Rebreather 13.00 04/06/17 21:00 76 20 125/61 100 04/06/17 20:00 97.9 79 26 153/71 100 8/11/17 20:00 100 Partial Non-Rebreather 13.00 04/06/17 20:00 76 04/06/17 19:00 76 17 156/73 100 CBC/BMP: 04/07/17 1012 04/07/17 1042 Lab Results Laboratory Tests Test 04/07/17 04/07/17 10:12 10:42 White Blood Count 9.3 TH/MM3 Red Blood Count 2.63 MIL/MM3 Hemoglobin 8.0 GM/DL Hematocrit 23.8 % Mean Corpuscular Volume 90.4 FL Mean Corpuscular Hemoglobin 30.2 PG Mean Corpuscular Hemoglobin 33.4 % Concent Red Cell Distribution Width 19.0 % Platelet Count 87 TH/MM3 Mean Platelet Volume 8.7 FL Neutrophils (%) (Auto) % Lymphocytes (%) (Auto) % Monocytes (%) (Auto) % Eosinophils (%) (Auto) % Basophils (%) (Auto) % Neutrophils # (Auto) TH/MM3 Lymphocytes # (Auto) TH/MM3 Monocytes # (Auto) TH/MM3 Eosinophils # (Auto) TH/MM3 Basophils # (Auto) TH/MM3 CBC Comment AUTO DIFF Differential Total Cells 100 Counted Neutrophils % (Manual) 32 % Band Neutrophils % 5 % Lymphocytes % 26 % Monocytes % 6 % Eosinophils % 1 % Neutrophils # (Manual) 4.4 TH/MM3 Metamyelocytes 5 % Myelocytes 5 % Differential Comment FINAL DIFF MANUAL Blastocytes 20 % Platelet Estimate LOW Platelet Morphology Comment NORMAL Spherocytes 1+ Ovalocytes 1+ Sodium Level 136 MEQ/L Potassium Level 4.0 MEQ/L Chloride Level 90 MEQ/L Carbon Dioxide Level 39.7 MEQ/L Anion Gap 6 MEQ/L Blood Urea Nitrogen 22 MG/DL Creatinine 0.95 MG/DL Estimat Glomerular Filtration 58 ML/MIN Rate Random Glucose 149 MG/DL Calcium Level 8.2 MG/DL Magnesium Level 2.0 MG/DL Total Bilirubin 0.5 MG/DL Aspartate Amino Transf 59 U/L (AST/SGOT) Alanine Aminotransferase 37 U/L (ALT/SGPT) Alkaline Phosphatase 107 U/L Total Protein 5.9 GM/DL Albumin 1.8 GM/DL Physical Exam General General Appearance: Well Developed, Well Nourished, No Acute Distress, Anxious , Obese Eyes Eye Exam: Pupils Equal, Pupils Reactive Ears & Nose Ears & Nose Exam: Nasal Mucosa [place] Throat Throat Exam: Oral Mucosa [place] & Moist Neck Neck Exam: Neck Supple, Trachea Midline Pulmonary Resp Exam: Breath Sounds Equal, Crackles, Decreased Bases Cardiology CV Exam: Regular, Normal Sinus Rhythm, Good Perfusion Gastrointestinal/Abdomen GI Exam: Soft, Non-Tender, Bowel Sounds Present, Non-Distended Musculoskeletal MS Exam: Normal Tone Integumentary Skin Exam: Warm, Dry Extremeties Extremities Exam: No Edema, Pedal Pulses Palpable Neurologic Neuro Exam: Alert, Awake, Oriented, Speech Clear, Moving All Extremities, No Focal Deficits Psychiatric Psych Exam: Appropriate Responses VTE Prophylaxis VTE Prophylaxis Device: SCDs Assessment/Plan Problem List: (1) Sepsis (2) Anemia (3) Thrombocytopenia (4) Elevated white blood cell count (5) Pneumonia (6) CKD (chronic kidney disease) stage 3, GFR 30-59 ml/min (7) AML (acute myeloid leukemia) (8) Low blood pressure (9) Tachycardia (10) Hx TIA/stroke w/o resid (11) hx cerebral aneurysm (12) Atrial fibrillation with RVR Assessment/Plan Assessment Fatty liver Right pleural effusion Sepsis Pneumonia Hypoxemia Anemia Thrombocytopenia Obesity Acute myeloid leukemia, Received Dacogen No improvement Acute kidney injury, improved Paroxysmal atrial tachycardia/atrial fibrillation 4.3 cm ascending aorta Left ventricular hypertrophy Normal ejection fraction History of TIA, chronic kidney disease, constipation, back pain, penicillin allergy, Management Continue Amiodarone Digoxin Lopressor Continue antibiotics, currently on meropenem, infectious disease following Monitor CBC, hematology oncology following when necessary IV Lopressor for sustained heart rate above 120 Cardiology following Supplemental oxygen Follow renal function Follow electrolytes and replace as needed oncologist and kick boxer following Discussed with patient and her family at her bedside Discussed with nurse 35 minutes Problem Qualifiers (1) Sepsis: Qualified Code: A41.9 - Sepsis, due to unspecified organism (2) Anemia: Qualified Code: D64.9 - Anemia, unspecified type (3) Elevated white blood cell count: Qualified Code: D72.829 - Leukocytosis, unspecified type (4) Pneumonia: Qualified Code: J18.1 - Pneumonia of left lower lobe due to infectious organism (5) AML (acute myeloid leukemia): Qualified Code: C92.00 - Acute myeloid leukemia not having achieved remission (6) Low blood pressure: Qualified Code: I95.9 - Hypotension, unspecified hypotension type Qamar Paniagua MD Apr 07, 2017 16:25
[2017-04-07] MEDS: lamoTRIgine 25 MG TAB PO SCH (20:20)
[2017-04-07] MEDS: ONDANSETRON HCL 4 MG/2 ML VIAL IVP PRN (20:23)
[2017-04-08] VITALS (14 sets, daily range): BP systolic 97–129; BP diastolic 57–64; PULSE 58–100; RESP 16–20; TEMP 97.8–98.5; O2SAT 95–100
[2017-04-08] MEDS: ACETAMINOPHEN/HYDROcodone 325 MG/10 MG TAB PO PRN ×5 (03:48→23:44)
[2017-04-08] MEDS: MEROPENEM INJ 1,000 MG in SODIUM CHLORIDE 0.9% INJ 100 ML IV SCH ×3 (05:57→22:56)
[2017-04-08] MEDS: LEVOTHYROXINE SODIUM 100 MCG TAB PO SCH (05:57)
--- NOTE | 2017-04-08 06:02 | RADRPT ---
EXAM DATE/TIME: 04/08/2017 03:47 [facility] COMPARISON: CHEST SINGLE AP, April 07, 2017, 4:07. INDICATIONS : Shortness of breath, possible pulmonary disease. MEDICAL HISTORY : Hypertension. Hypothyroidism. Myocardial infarction. Arthritis Cerebral aneurysm SURGICAL HISTORY : Appendectomy. section. Spinal surgery ENCOUNTER: Subsequent ACUITY: 2 weeks PAIN SCORE: 3/10 LOCATION: Bilateral chest FINDINGS: A single view of the chest demonstrates minimal bibasilar densities and scarring left upper lobe. Sma ll left pleural effusion. The cardiomediastinal contours are unremarkable. Osseous structures are in tact. CONCLUSION: 1. Minimal bibasilar densities with scarring left upper lobe. 2. Small left pleural effusion. Beau Winter MD on April 08, 2017 at 6:00 Board Certified Radiologist. This report was verified electronically.
[2017-04-08 06:13] LABS: HEMATOCRIT 22.2 % (35.0-46.0); MEAN CELL VOLUME 90.1 FL (80.0-100.0); MEAN CORPUSCULAR HEMOGLOBIN 30.7 PG (27.0-34.0); PLATELET COUNT 77 TH/MM3 (150-450); RED BLOOD COUNT 2.47 MIL/MM3 (4.00-5.30); RED CELL DISTRIBUTION WIDTH 18.4 % (11.6-17.2); WHITE BLOOD COUNT 9.3 TH/MM3 (4.0-11.0)
[2017-04-08 06:23] LABS: HEMO FLAGS AUTO DIFF
[2017-04-08 06:31] LABS: ALT (GPT) 38 U/L (10-53); ANION GAP 7 MEQ/L (5-15); AST (GOT) 55 U/L (15-37); BICARBONATE 40.1 MEQ/L (21.0-32.0); BLOOD UREA NITROGEN 24 MG/DL (7-18); CHLORIDE 91 MEQ/L (98-107); GLOMERULAR FILTRATION RATE 53 ML/MIN (>89); MAGNESIUM 2.1 MG/DL (1.5-2.5); SODIUM (NA) 138 MEQ/L (136-145)
[2017-04-08 06:34] LABS: ALKALINE PHOSPHATASE 104 U/L (45-117); TOTAL BILIRUBIN ADULT 0.5 MG/DL (0.2-1.0)
[2017-04-08] MEDS: INSULIN ASPART SUPPLEMENTAL SCALE SQ SCH ×4 (07:00→20:03)
[2017-04-08 08:32] LABS: BANDS 1 % (0-6); BLASTS 16 % (0-0); METAMYELOCYTES 3 % (0-1); MYELOCYTES 3 % (0-0); NEUTROPHIL # MANUAL DIFF 4.2 TH/MM3 (1.8-7.7); POLYS (SEG NEUTROPHILS) 38 % (16-70); WBC DIFF SAMPLE 100
[2017-04-08 08:33] LABS: PLATELET ESTIMATE SMEAR LOW (NORMAL); PLATELET MORPHOLOGY NORMAL (NORMAL); SCAN/DIFF FINAL DIFF MANUAL
[2017-04-08] MEDS: AMIODARONE 200 MG TAB PO SCH (09:33)
[2017-04-08] MEDS: NYSTATIN SUSP 500,000 U/5 ML CUP SWISH-SWAL SCH ×4 (09:33→20:04)
[2017-04-08] MEDS: ENOXAPARIN SODIUM 40 MG/0.4 ML SYRINGE SQ SCH (09:33)
[2017-04-08] MEDS: METOPROLOL TARTRATE 50 MG TAB PO SCH ×2 (09:34→20:01)
[2017-04-08] MEDS: FUROSEMIDE 40 MG/4 ML VIAL IV PUSH SCH (09:34)
[2017-04-08] MEDS: DIGOXIN 0.125 MG TAB PO SCH (09:34)
[2017-04-08] MEDS: ALLOPURINOL 100 MG TAB PO SCH ×2 (09:35→20:02)
[2017-04-08] MEDS: ATORVASTATIN 40 MG TAB PO SCH (09:35)
[2017-04-08] MEDS: FAMOTIDINE 20 MG TAB PO SCH ×2 (09:35→20:01)
[2017-04-08] MEDS: SODIUM CHLORIDE 0.9% FLUSH 10 ML FLUSH IV FLUSH SCH ×2 (09:36→19:59)
[2017-04-08] MEDS: DOCUSATE SODIUM 50 MG/SENNA 8.6 MG TAB PO SCH ×2 (09:36→20:02)
--- NOTE | 2017-04-08 11:12 | HHI.CCPN ---
Subjective Remarks/Hospital Course This is a 66-year-old female, that presented to the hospital with shortness of breath productive cough and generalized fatigue upon admission. Subsequent laboratory and imaging studies reveal a pneumonia. 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 Since admission the patient was placed on empiric antibiotic Azactam. Blood culture negative growth today, urine culture showed 50-100,000 of gram-positive chance. Hematology oncology initiated Dacogen first dose yesterday. The patient was noted to have a cardiac rhythm A. fib RVR cardiology was consulted, Dr. Chang the patient was placed on amiodarone 400 mg twice a day received a dose of digoxin last evening. The patient early this a.m., had A. fib RVR with dyspnea and hypoxemia with O2 sat duration in the 80s. Critical care medicine was consulted. Upon meeting and evaluating the patient the patient was noted to be in a sinus tachycardia with a heart rate [id number], with an O2 saturation on nonrebreather of 91-92%. The patient received 20 mg IV Lasix upon arrival, with subsequent diuresis of approximately 1 L, and decreased in FiO2 requirements. The patient was noted to have a significant leukocytosis, with 1 % bands, pro-calcitonin level was drawn ID was consulted. 04/01: The patient required increasing FiO2 requirements overnight. The patient currently on nonrebreather mask O2 saturation 94%. Stat chest x-ray obtain results pending, stat ABG results pending. Discussion with patient and son regarding the probable likelihood of intubation this a.m.. All questions answered. The patient remains nothing by mouth at this time. ID was consulted yesterday regarding the leukocytosis and elevation in temperature, following recommendations. 04/02: No acute events overnight. Patient's oxygen requirements remain at 4 L/m nasal cannula. Palliative care team in extensive discussion with family, patient CODE STATUS been made DNR/DNI. Heart healthy diet has been resumed. 04/03: Overnight the patient, had increasing FiO2 requirements required partial nonrebreather mask, and also received 3 doses of Ativan. The patient became tachycardic and received metoprolol IV subsequently at 2 AM went into A. fib RVR and received 15 mg Cardizem IV push. The patient currently telemetry revealing ST 113. Thomson reinserted with strict TARAN hourly monitoring patient to receive Dacogen today. 04/04: Slight improvement in chest x-ray today. Patient still remains on high FiO2 requirements. Patient continues on twice a day diuretic dosing. Continue hourly monitoring for even I's and O's every 24 hours when patients undergoing Dacogen therapy. Patient to have therapy and still today third day of dosing. A chin complains of pain on inspiration well controlled with PRN Lortab The patient's tolerating a diet. Subjective 04/05 - last dose of Dectabine 40 mg 1 today. Currently on partial nonrebreather mask. Remains tachycardic. Tolerating diet. Positive BM. 04/06: Remains on high-flow oxygen. FiO2 just reduced to 70%. Complaints of pleuritic chest pain bilaterally. Chest x-ray still showing bibasilar infiltrate 04/07: Patient remains hypoxic despite negative fluid balance. Chest x-ray shows persistent bilateral infiltrates. I will get CT of the chest to better evaluate infiltrates. Also 2-D echo with bubble study to rule out shunt 04/08: CT chest yesterday consistent with a dense consolidation indicating left lower lobe pneumonia. Clinically improving with antibiotics currently down to 50% FiO2 with good oxygen saturation. WBC count is normalized today Objective Vital Signs Date Time Temp Pulse Resp B/P Pulse Ox O2 Delivery O2 Flow Rate FiO2 04/08/17 10:00 63 04/08/17 08:10 95 High Flow Nasal Cannula 20.00 50 04/08/17 08:00 97.8 18 97/57 Intake and Output 04/07/17 04/07/17 04/08/17 08:00 16:00 00:00 Intake Total 220 ml 760 ml 120 ml Output Total 850 ml 400 ml 800 ml Balance -630 ml 360 ml -680 ml Result Diagram: 04/08/17 0515 04/08/17 0515 Imaging Last Impressions Chest X-Ray 04/04/17 0600 Signed Impressions: Service Date/Time: Tuesday, April 04, 2017 04:43 - CONCLUSION: Slight improved aeration right lower lobe. Antwan Jensen MD Bone Biopsy CT 03/26/17 0000 Signed Impressions: Service Date/Time: Sunday, March 26, 2017 14:48 - CONCLUSION: 1. Uncomplicated CT guided bone marrow aspirate. 2. Uncomplicated CT guided bone marrow biopsy. Raoul Jeffries MD Lumbar Spine CT 03/25/172 Signed Impressions: Service Date/Time: Sunday, March 26, 2017 01:12 - CONCLUSION: 1. Degenerative disc changes greatest at the L4-5 and L5-S1 levels with broad-based disc osteophyte complexes. There is lateral recess stenosis at the L5-S1 level. 2. Mild retrolisthesis of L5 on S1 with degenerative disc change and broad-based disc osteophyte complex. 3. Narrowing of the neuroforamina bilaterally at the L4-5 and L5-S1 levels. 4. Degenerative disc change. Balaji Solorio MD CT Angiography 03/25/[id number] Signed Impressions: Service Date/Time: Sunday, March 26, 2017 01:09 - CONCLUSION: 1. Mild consolidation along the left fissure and lower lobe. This could indicate early pneumonia. 2. No evidence of pulmonary embolism. Balaji Solorio MD Objective Remarks GENERAL: Obese female on high flow nasal cannula, 50% FiO2 SKIN: Warm and dry. No rash HEAD: Atraumatic. Normocephalic. EYES: Pupils equal and round. No scleral icterus. No injection or drainage. ENT: No nasal bleeding or discharge. Mucous membranes pink and moist. NECK: Trachea midline. No JVD. CARDIOVASCULAR: Tachycardic rate, regular rhythm. S1, S2. No S4. RESPIRATORY: On high flow nasal cannula at 50% FiO2. Breath sounds equal bilaterally. Diminished breath sounds at the bases GASTROINTESTINAL: Abdomen soft, protuberant ,non-tender, nondistended. No guarding. MUSCULOSKELETAL: Extremities without clubbing, cyanosis, or edema. No obvious deformities. NEUROLOGICAL: Awake and alert. No gross focal/sensory deficits. Follows commands in all 4 extremities. Procedures 04/02,04/03,04/04 Dacogen therapy Urinary Catheter: Yes Assessment to: Continue Date of Insertion: Apr 03, 2017 A/P Assessment and Plan Assessment Acute hypoxemic Respiratory failure, persistent hypoxia A. fib RVR with conversion to Sinus tachycardia Sepsis Bibasilar pneumonia, predominantly left lower lobe Leukocytosis improving Small Bilateral Pleural effusions Acute myeloid leukemia Anemia/normocytic Thrombocytopenia CKD stage 3 H/O chronic HTN H/O cerebral aneurysm H/O CVA with residual weakness Hypothyroidism Mild protein calorie malnutrition Morbid obesity Chronic pain syndrome NOS Constipation-resolved Plan Neurologic: - Maintain sleep hygiene, avoid ICU delirium, maintains stimulation during the day - Restoril 15 mg at bedtime when necessary for insomnia - [place] 10/325 PRN pain 7-10. Acetaminophen for fever/pain 126 - Lamictal 50 mg at night - 04/03 Discontinued Ativan Respiratory: -Maintain O2 sat greater than 90%. Currently on high flow nasal cannula at 50% FiO2 -Scheduled continue bronchodilators 4 times a day scheduled -Wean O2 as tolerated, maintain head of bed 30 -CT chest to better evaluate infiltrate shows left lower lobe pneumonia 04/07/17 Cardiovascular: -Metoprolol 2.5 mg IV every 6 hours when necessary for heart rate greater than 100bpm -Cardiology following- Dr. Chang/ Ronny --04/04 Digoxin level 1.6 --Amiodarone 200 mg/ day, atorvastatin 10 mg by mouth daily. Metoprolol 50 twice a day Digoxin 0.125 mg Management per Cardiology -Reduce Lasix 40 mg twice a day to 20 mg I BID. Given Metabolic alkalosis, give 1 dose of Diamox 100 mg IV --2-D echo with bubble study to rule out shunt, patient persistently hypoxemic Renal: - Maintain thomson- patient receiving Dacogen therapy strict hourly I&O's indicated FEN/GI: -Monitor electrolytes -Electrolyte replacement per ICU protocol -Heart healthy diet -Bowel regimen with Ramya-Colace Heme/ID: -Hematology oncology following Dr. Yarbrough -Allopurinol 100 mg twice a day continued per hematology oncology-prophylaxis for tumor lysis -Dacogen 40 mg IV daily dosing per Hematology-Oncology schedule -Transfuse for platelet count less than 50,000 Endocrine: -Levothyroxine 100 mcgs/day -Glucose monitoring per ICU protocol -- SSI Prophylaxis: GI Prophylaxis Pepcid DVT Prophylaxis -- SCDs No pharmacological DVT prophylaxis in the setting of thrombocytopenia defer to HematologyOncology Lines: PIV x 2 Dispo: Level 3 Discussed with MAIL CLERKS SUPERVISOR ,patient and daughter at bedside. Patient CODE STATUS changed to intubation only after extensive discussion with palliative care and other family members. . Patient's pulmonary status continues to improve CCM will sign off (pulmonary is following). Re consult as needed Paul Silveira MD Apr 08, 2017 11:12
--- NOTE | 2017-04-08 11:37 | PD.ONC.PN ---
Subjective Subjective Remarks Afebrile overnight States her breathing is overall better since being admitted Doing well on 50% high flow nasal cannula Objective Data Date Time Temp Pulse Resp B/P Pulse Ox O2 Delivery O2 Flow Rate FiO2 04/08/17 10:00 63 04/08/17 08:10 95 High Flow Nasal Cannula 20.00 50 04/08/17 08:00 97.8 99 18 97/57 99 04/08/17 08:00 97 04/08/17 07:00 Business System Consultant 04/08/17 06:00 75 04/08/17 04:48 18 04/08/17 04:00 100 04/08/17 04:00 98.0 100 17 129/61 100 04/08/17 02:00 71 04/08/17 00:00 98 04/08/17 00:00 98.1 98 16 121/64 100 04/07/17 22:00 70 04/07/17 20:46 97 Partial Rebreather 13.00 04/07/17 20:00 67 04/07/17 20:00 97.9 67 18 125/61 97 04/07/17 19:00 100 Partial Non-Rebreather 13.00 04/07/17 18:00 75 04/07/17 16:00 64 04/07/17 16:00 98.6 64 22 107/52 98 04/07/17 14:00 67 04/07/17 12:00 98.3 94 20 90/53 93 04/07/17 12:00 94 Result Diagram: 04/08/17 0515 04/08/17 0515 Laboratory Results Laboratory Tests Test 04/08/17 05:15 White Blood Count 9.3 TH/MM3 Red Blood Count 2.47 MIL/MM3 Hemoglobin 7.6 GM/DL Hematocrit 22.2 % Mean Corpuscular Volume 90.1 FL Mean Corpuscular Hemoglobin 30.7 PG Mean Corpuscular Hemoglobin 34.0 % Concent Red Cell Distribution Width 18.4 % Platelet Count 77 TH/MM3 Mean Platelet Volume 8.9 FL Neutrophils (%) (Auto) % Lymphocytes (%) (Auto) % Monocytes (%) (Auto) % Eosinophils (%) (Auto) % Basophils (%) (Auto) % Neutrophils # (Auto) TH/MM3 Lymphocytes # (Auto) TH/MM3 Monocytes # (Auto) TH/MM3 Eosinophils # (Auto) TH/MM3 Basophils # (Auto) TH/MM3 CBC Comment AUTO DIFF Differential Total Cells 100 Counted Neutrophils % (Manual) 38 % Band Neutrophils % 1 % Lymphocytes % 21 % Monocytes % 18 % Neutrophils # (Manual) 4.2 TH/MM3 Metamyelocytes 3 % Myelocytes 3 % Differential Comment FINAL DIFF MANUAL Atypical Lymphocytes % Blastocytes 16 % Platelet Estimate LOW Platelet Morphology Comment NORMAL Sodium Level 138 MEQ/L Potassium Level 4.0 MEQ/L Chloride Level 91 MEQ/L Carbon Dioxide Level 40.1 MEQ/L Anion Gap 7 MEQ/L Blood Urea Nitrogen 24 MG/DL Creatinine 1.03 MG/DL Estimat Glomerular Filtration 53 ML/MIN Rate Random Glucose 101 MG/DL Calcium Level 8.5 MG/DL Magnesium Level 2.1 MG/DL Total Bilirubin 0.5 MG/DL Aspartate Amino Transf 55 U/L (AST/SGOT) Alanine Aminotransferase 38 U/L (ALT/SGPT) Alkaline Phosphatase 104 U/L Total Protein 5.9 GM/DL Albumin 1.9 GM/DL Imaging Studies Last 24 hours Impressions Chest X-Ray 04/08/17 0600 Signed Impressions: Service Date/Time: Saturday, April 08, 2017 03:47 - CONCLUSION: 1. Minimal bibasilar densities with scarring left upper lobe. 2. Small left pleural effusion. Beau Winter MD Administered Medications Medications (Trade) Dose Ordered Sig/Tylor Route PRN Reason Start Time Stop Time Status Last Admin Dose Admin Sodium Chloride (NS Flush) 2 ml BID IV FLUSH 03/26/17 09:00 04/08/17 09:36 Acetaminophen (Tylenol) 650 mg Q4H PRN PO TEMP > 100.4 03/25/17 23:15 03/30/17 08:26 Ondansetron HCl (Zofran Inj) 4 mg Q6H PRN IVP NAUSEA OR VOMITING 03/25/17 23:15 04/07/17 20:23 Acetaminophen (Tylenol) 650 mg Q6H PRN PO PAIN SCALE 1 TO 2 03/25/17 23:15 03/26/17 08:14 Famotidine (Pepcid) 10 mg BID PO 03/26/17 09:00 04/08/17 09:35 Temazepam (Restoril) 15 mg HS PRN PO insomnia 03/26/17 00:30 04/05/17 21:11 Allopurinol (Zyloprim) 100 mg BID PO 03/26/17 09:00 04/08/17 09:35 Nystatin (Mycostatin Liq) 5 ml QID SWISH-SWAL 03/26/17 18:00 04/08/17 09:33 Atorvastatin Calcium (Lipitor) 40 mg DAILY PO 03/28/17 09:00 04/08/17 09:35 Lamotrigine (LaMICtal) 50 mg HS PO 03/27/17 21:00 04/07/17 20:20 Levothyroxine Sodium (Synthroid) 100 mcg DAILY@06 PO 03/28/17 06:00 04/08/17 05:57 Acetaminophen/ Hydrocodone Bitart ([place] 10-325 Mg) 1 tab Q4H PRN PO PAIN 7-10 03/28/17 09:15 04/08/17 09:34 Lorazepam 1 mg 1 mg Q6H PRN PO ANXIETY 03/28/17 09:15 Hold 04/03/17 06:52 Meropenem/Sodium Chloride (Merrem Inj/NS Inj) 100 ml @ 200 mls/hr Q8H IV 03/31/17 14:00 04/08/17 05:57 Senna/Docusate Sodium (Ramya-Colace) 1 tab BID PO 03/31/17 21:00 04/08/17 09:36 Magnesium Hydroxide (Milk Of Magnesia Liq) 30 ml Q12H PRN PO SEE LABEL COMMENTS 03/31/17 14:00 04/01/17 08:15 Bisacodyl (Dulcolax Supp) 10 mg DAILY PRN RECTAL SEE LABEL COMMENTS 03/31/17 14:00 04/01/17 08:14 Lactulose (Lactulose Liq) 30 ml DAILY PRN PO SEE LABEL COMMENTS 03/31/17 14:00 04/01/17 08:13 Metoprolol Tartrate (Lopressor Inj) 2.5 mg Q2H PRN IV PUSH tachycardia 04/02/17 20:15 04/04/17 22:42 Potassium Phosphate (K-Phos) 2,000 mg Q4H PRN PO For Phosphorus < 2.5 mg/dL 04/03/17 08:30 04/03/17 14:23 Digoxin (Lanoxin) 0.125 mg DAILY PO 04/04/17 09:00 04/08/17 09:34 Metoprolol Tartrate (Lopressor) 50 mg BID PO 04/04/17 21:00 04/08/17 09:34 Amiodarone HCl (Cordarone) 200 mg DAILY PO 04/04/17 09:00 04/08/17 09:33 Enoxaparin Sodium (Lovenox Inj) 40 mg Q24H SQ 04/05/17 09:00 04/08/17 09:33 Objective Remarks GENERAL: Older, obese female resting in bed in no distress. She is awake and requesting to have lunch tray set up SKIN: Warm and dry. No oozing from lines HEAD: Normocephalic. EYES: No injection or drainage. NECK: Supple, trachea midline. CARDIOVASCULAR: A. fib on monitor. Tachycardia RESPIRATORY: Lungs clear anteriorly. High flow O2 nasal cannula in place GASTROINTESTINAL: Abdomen soft, non-tender, nondistended. EXTREMITIES: SCDs to bilateral lower extremities. MUSCULOSKELETAL: Generalized weakness. NEUROLOGICAL: No obvious focal deficit. Awake, alert, and oriented x3. Assessment/Plan Problem List: (1) AML (acute myeloid leukemia) Status: Acute Plan: --Bone marrow biopsy indicates findings consistent with AML. FLT-3, CEPBA and NPM-1 analysis pending to help us prognosticate further. -- poor candidate for intensive induction remission therapy with anthracycline/ Cytarabine or HiDAC due to her cardiac and pulmonary issues and borderline performance status. --on allopurinol for tumor lysis prophylaxis --03/30/17: Dacogen day 1 started --03/31/17: transferred to [facility] [place]/t hypoxia, tachycardia, hypotension --04/01: hold Dacogen. patient remains hypotensive, tachycardic, hypoxic -- 04/03 and 04/04/2017: Day 2 and day 3 Dacogen delivered. 04/06: Finished 1st treatment with Dacogen. (2) Atrial fibrillation with RVR Status: Acute Plan: -- A. fib with RVR associated with transient chest pain: --cardiology following --on digoxin, amiodarone Assessment Ms. Richard is a 66-year-old female with a 3-week history of progressive malaise, fatigue and weakness. She reports soreness of the throat and a dry cough, both of which have been chronic. She presented to the emergency department for further workup and management because her symptoms of fatigue progressed to the point where she had difficulty walking from her bedroom to her restroom. She called EMS last night due to the severity of the symptoms. Blood work performed in the emergency department indicates findings consistent with anemia, thrombocytopenia, her WBCs are grossly abnormal with findings of numerous immature cells and blasts in the peripheral circulation. 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 Peripheral smear was formally reviewed by our hematocrit pathologist who assessed the findings to be consistent with a high- grade myeloid malignancy most consistent with acute myeloid leukemia. Plan 1. Transfuse for hemoglobin less than 7.5 2. Continue to wean O2 as tolerated 3. Patient will benefit from physical therapy; they will likely be in tomorrow to resume treatment. 4. Monitor CBC and give supportive care Attending Statement The exam, history, and the medical decision-making described in the above note were completed with the assistance of the mid-level provider. I reviewed and agree with the findings presented. I attest that I had a [id number] encounter with the patient on the same day, and personally performed and documented my assessment and findings in the medical record. Pt transfuse 1UPRBC. Stable clinically. New IV by vascular team, R IV site infiltrated. Problem Qualifiers (1) AML (acute myeloid leukemia): Qualified Code: C92.00 - Acute myeloid leukemia not having achieved remission Wendy Lopez Apr 08, 2017 11:37 Juliet Lin MD Apr 08, 2017 22:45
--- NOTE | 2017-04-08 13:44 | HHI.PR ---
Subjective Remarks 66 YO [place] female with Resp insuff, Myeloid leukemia had Chemo mild sob Appetite fair On High flow 02 CT chest dense infilterate breathing better Objective Vital Signs Vital Signs Date Time Temp Pulse Resp B/P Pulse Ox O2 Delivery O2 Flow Rate FiO2 04/08/17 10:36 14 04/08/17 10:00 63 04/08/17 08:10 95 High Flow Nasal Cannula 20.00 50 04/08/17 08:00 97.8 99 18 97/57 99 04/08/17 08:00 97 04/08/17 07:00 Resort Desk Clerk 04/08/17 06:00 75 04/08/17 04:00 100 04/08/17 04:00 98.0 100 17 129/61 100 04/08/17 02:00 71 04/08/17 00:00 98 04/08/17 00:00 98.1 98 16 121/64 100 04/07/17 22:00 70 04/07/17 20:46 97 Partial Rebreather 13.00 04/07/17 20:00 67 04/07/17 20:00 97.9 67 18 125/61 97 04/07/17 19:00 100 Partial Non-Rebreather 13.00 04/07/17 18:00 75 04/07/17 16:00 64 04/07/17 16:00 98.6 64 22 107/52 98 04/07/17 14:00 67 I/O 04/07/17 04/07/17 04/07/17 04/08/17 04/08/17 04/08/17 07:00 15:00 23:00 07:00 15:00 23:00 Intake Total 220 ml 760 ml 120 ml 206 ml Output Total 850 ml 400 ml 800 ml 700 ml Balance -630 ml 360 ml -680 ml -494 ml Intake Oral 120 ml 460 ml 120 ml 100 ml IV Total 100 ml 300 ml 0 ml 106 ml Output Urine Total 850 ml 400 ml 800 ml 700 ml # Bowel Movements 0 1 0 0 Result Diagram: 04/08/1751404/08/1715 Objective Remarks GENERAL: WBWn Female, mild sob SKIN: Warm and dry. HEAD: Normocephalic. EYES: No scleral icterus. No injection or drainage. NECK: Supple, trachea midline. No JVD or lymphadenopathy. CARDIOVASCULAR: Regular rate and rhythm without murmurs, gallops, or rubs. RESPIRATORY: Breath sounds equal bilaterally. No accessory muscle use. GASTROINTESTINAL: Abdomen soft, non-tender, nondistended. MUSCULOSKELETAL: No cyanosis, or edema. BACK: Nontender without obvious deformity. No CVA tenderness. A/P Assessment and Plan Resp Insuff Hypoxia Left basal infilt myeloid Leukemia HTN Partial sz PLAN: High flow 02 Wean 02 to keep sat >90% Aerosol nebs DW pt and Family at BS. Jorge Thibodeaux MD Apr 08, 2017 13:44
--- NOTE | 2017-04-08 16:47 | HHI.PR ---
Subjective Interval History Alert, oriented, mild to moderate resting dyspnea, no pain Review of Systems Constitutional Constitutional Remarks 10 systems reviewed and otherwise negative Vitals/Results Intake & Output 04/07/17 04/07/17 04/08/17 15:00 23:00 07:00 Intake Total 760 ml 120 ml 206 ml Output Total 400 ml 800 ml 700 ml Balance 360 ml -680 ml -494 ml Intake Oral 460 ml 120 ml 100 ml IV Total 300 ml 0 ml 106 ml Output Urine Total 400 ml 800 ml 700 ml # Bowel Movements 1 0 0 Vital Signs Vital Signs Date Time Temp Pulse Resp B/P Pulse Ox O2 Delivery O2 Flow Rate FiO2 04/08/17 14:00 65 04/08/17 12:00 98.0 95 20 101/58 99 04/08/17 12:00 68 04/08/17 10:36 14 04/08/17 10:00 63 04/08/17 08:10 95 High Flow Nasal Cannula 20.00 50 04/08/17 08:00 97.8 99 18 97/57 99 04/08/17 08:00 97 04/08/17 07:00 News Video Editor 04/08/17 06:00 75 04/08/17 04:00 100 04/08/17 04:00 98.0 100 17 129/61 100 04/08/17 02:00 71 04/08/17 00:00 98 04/08/17 00:00 98.1 98 16 121/64 100 04/07/17 22:00 70 04/07/17 20:46 97 Partial Rebreather 13.00 04/07/17 20:00 67 04/07/17 20:00 97.9 67 18 125/61 97 04/07/17 19:00 100 Partial Non-Rebreather 13.00 04/07/17 18:00 75 CBC/BMP: 04/08/17 0515 04/08/17 0515 Lab Results Laboratory Tests Test 04/08/17 05:15 White Blood Count 9.3 TH/MM3 Red Blood Count 2.47 MIL/MM3 Hemoglobin 7.6 GM/DL Hematocrit 22.2 % Mean Corpuscular Volume 90.1 FL Mean Corpuscular Hemoglobin 30.7 PG Mean Corpuscular Hemoglobin 34.0 % Concent Red Cell Distribution Width 18.4 % Platelet Count 77 TH/MM3 Mean Platelet Volume 8.9 FL Neutrophils (%) (Auto) % Lymphocytes (%) (Auto) % Monocytes (%) (Auto) % Eosinophils (%) (Auto) % Basophils (%) (Auto) % Neutrophils # (Auto) TH/MM3 Lymphocytes # (Auto) TH/MM3 Monocytes # (Auto) TH/MM3 Eosinophils # (Auto) TH/MM3 Basophils # (Auto) TH/MM3 CBC Comment AUTO DIFF Differential Total Cells 100 Counted Neutrophils % (Manual) 38 % Band Neutrophils % 1 % Lymphocytes % 21 % Monocytes % 18 % Neutrophils # (Manual) 4.2 TH/MM3 Metamyelocytes 3 % Myelocytes 3 % Differential Comment FINAL DIFF MANUAL Atypical Lymphocytes % Blastocytes 16 % Platelet Estimate LOW Platelet Morphology Comment NORMAL Sodium Level 138 MEQ/L Potassium Level 4.0 MEQ/L Chloride Level 91 MEQ/L Carbon Dioxide Level 40.1 MEQ/L Anion Gap 7 MEQ/L Blood Urea Nitrogen 24 MG/DL Creatinine 1.03 MG/DL Estimat Glomerular Filtration 53 ML/MIN Rate Random Glucose 101 MG/DL Calcium Level 8.5 MG/DL Magnesium Level 2.1 MG/DL Total Bilirubin 0.5 MG/DL Aspartate Amino Transf 55 U/L (AST/SGOT) Alanine Aminotransferase 38 U/L (ALT/SGPT) Alkaline Phosphatase 104 U/L Total Protein 5.9 GM/DL Albumin 1.9 GM/DL Physical Exam General General Appearance: Well Developed, Well Nourished, No Acute Distress, Anxious , Obese Eyes Eye Exam: Pupils Equal, Pupils Reactive Ears & Nose Ears & Nose Exam: Nasal Mucosa [place] Throat Throat Exam: Oral Mucosa [place] & Moist Neck Neck Exam: Neck Supple, Trachea Midline Pulmonary Resp Exam: Breath Sounds Equal, Crackles, Decreased Bases Cardiology CV Exam: Regular, Normal Sinus Rhythm, Good Perfusion Gastrointestinal/Abdomen GI Exam: Soft, Non-Tender, Bowel Sounds Present, Non-Distended Musculoskeletal MS Exam: Normal Tone Integumentary Skin Exam: Warm, Dry Extremeties Extremities Exam: No Edema, Pedal Pulses Palpable Neurologic Neuro Exam: Alert, Awake, Oriented, Speech Clear, Moving All Extremities, No Focal Deficits Psychiatric Psych Exam: Appropriate Responses VTE Prophylaxis VTE Prophylaxis Device: SCDs Assessment/Plan Problem List: (1) Sepsis (2) Anemia (3) Thrombocytopenia (4) Elevated white blood cell count (5) Pneumonia (6) CKD (chronic kidney disease) stage 3, GFR 30-59 ml/min (7) AML (acute myeloid leukemia) (8) Low blood pressure (9) Tachycardia (10) Hx TIA/stroke w/o resid (11) hx cerebral aneurysm (12) Atrial fibrillation with RVR Assessment/Plan Assessment Fatty liver Right pleural effusion, small Sepsis Pneumonia Hypoxemia Anemia Thrombocytopenia Obesity Acute myeloid leukemia, Received a course Dacogen , white count back to normal now Acute kidney injury, improved Paroxysmal atrial tachycardia/atrial fibrillation, rate is well-controlled at this time 4.3 cm ascending aorta Left ventricular hypertrophy Normal ejection fraction History of TIA, chronic kidney disease, constipation, back pain, penicillin allergy, Management Continue Amiodarone Digoxin Lopressor Continue antibiotics, infectious disease following Monitor CBC, hematology oncology following Cardiology following Supplemental oxygen Follow renal function Follow electrolytes and replace as needed oncologist and eligibility examiner following Discussed with patient Physical therapy if tolerated Discussed with nurse 35 minutes Problem Qualifiers (1) Sepsis: Qualified Code: A41.9 - Sepsis, due to unspecified organism (2) Anemia: Qualified Code: D64.9 - Anemia, unspecified type (3) Elevated white blood cell count: Qualified Code: D72.829 - Leukocytosis, unspecified type (4) Pneumonia: Qualified Code: J18.1 - Pneumonia of left lower lobe due to infectious organism (5) AML (acute myeloid leukemia): Qualified Code: C92.00 - Acute myeloid leukemia not having achieved remission (6) Low blood pressure: Qualified Code: I95.9 - Hypotension, unspecified hypotension type Qamar Paniagua MD Apr 08, 2017 16:47
[2017-04-08] MEDS: FUROSEMIDE 20 MG/2 ML VIAL IV PUSH SCH (20:00)
[2017-04-08] MEDS: lamoTRIgine 25 MG TAB PO SCH (20:01)
[2017-04-09] VITALS (24 sets, daily range): BP systolic 92–138; BP diastolic 51–67; PULSE 60–128; RESP 11–29; TEMP 97.9–98.3; O2SAT 92–99
[2017-04-09] MEDS: ACETAMINOPHEN/HYDROcodone 325 MG/10 MG TAB PO PRN ×5 (04:00→21:41)
[2017-04-09] MEDS: LEVOTHYROXINE SODIUM 100 MCG TAB PO SCH (05:50)
[2017-04-09] MEDS: MEROPENEM INJ 1,000 MG in SODIUM CHLORIDE 0.9% INJ 100 ML IV SCH ×2 (05:50→13:59)
[2017-04-09] MEDS: INSULIN ASPART SUPPLEMENTAL SCALE SQ SCH ×4 (07:00→21:00)
[2017-04-09 07:16] LABS: HEMATOCRIT 21.7 % (35.0-46.0); MEAN CELL VOLUME 91.3 FL (80.0-100.0); MEAN CORPUSCULAR HEMOGLOBIN 30.2 PG (27.0-34.0); PLATELET COUNT 89 TH/MM3 (150-450); RED BLOOD COUNT 2.37 MIL/MM3 (4.00-5.30); RED CELL DISTRIBUTION WIDTH 18.4 % (11.6-17.2); WHITE BLOOD COUNT 7.9 TH/MM3 (4.0-11.0)
[2017-04-09 07:18] LABS: HEMO FLAGS AUTO DIFF
[2017-04-09] MEDS: METOPROLOL TARTRATE 50 MG TAB PO SCH ×2 (07:58→21:34)
[2017-04-09] MEDS: DOCUSATE SODIUM 50 MG/SENNA 8.6 MG TAB PO SCH ×2 (08:17→21:35)
[2017-04-09] MEDS: FUROSEMIDE 20 MG/2 ML VIAL IV PUSH SCH (08:17)
[2017-04-09] MEDS: ALLOPURINOL 100 MG TAB PO SCH ×2 (08:17→21:34)
[2017-04-09] MEDS: DIGOXIN 0.125 MG TAB PO SCH (08:17)
[2017-04-09] MEDS: AMIODARONE 200 MG TAB PO SCH (08:17)
[2017-04-09] MEDS: ATORVASTATIN 40 MG TAB PO SCH (08:17)
[2017-04-09] MEDS: LACTULOSE SYRUP 20 GM/30 ML CUP PO PRN (08:17)
[2017-04-09] MEDS: ENOXAPARIN SODIUM 40 MG/0.4 ML SYRINGE SQ SCH (08:18)
[2017-04-09] MEDS: FAMOTIDINE 20 MG TAB PO SCH ×2 (08:18→21:35)
[2017-04-09] MEDS: NYSTATIN SUSP 500,000 U/5 ML CUP SWISH-SWAL SCH ×4 (08:18→21:00)
[2017-04-09] MEDS: SODIUM CHLORIDE 0.9% FLUSH 10 ML FLUSH IV FLUSH SCH ×2 (08:18→21:37)
[2017-04-09 09:15] LABS: BANDS 3 % (0-6); BLASTS 19 % (0-0); EOSINOPHILS 1 % (0-4); METAMYELOCYTES 1 % (0-1); MYELOCYTES 9 % (0-0); NEUTROPHIL # MANUAL DIFF 2.7 TH/MM3 (1.8-7.7); POLYS (SEG NEUTROPHILS) 21 % (16-70); WBC DIFF SAMPLE 100
[2017-04-09 09:16] LABS: PLATELET ESTIMATE SMEAR LOW (NORMAL); PLATELET MORPHOLOGY NORMAL (NORMAL); SCAN/DIFF FINAL DIFF MANUAL
[2017-04-09] MEDS ORDERED: SODIUM CHLOR 0.9% 250 ML INJ 250 ML IV ONE (14:15)
--- NOTE | 2017-04-09 14:16 | PD.ONC.PN ---
Subjective Subjective Remarks Afebrile overnight. Patient complaining of constipation. No BM in several days. last time she got this constipated she needed an enema. she would like to wait until tomorrow before trying an enema. Objective Data Date Time Temp Pulse Resp B/P Pulse Ox O2 Delivery O2 Flow Rate FiO2 04/09/17 11:00 118 13 118/60 96 04/09/17 10:02 118 19 118/60 92 04/09/17 10:00 77 04/09/17 09:00 65 13 120/57 98 04/09/17 08:44 92 High Flow Nasal Cannula 20.00 50 04/09/17 08:00 98.2 63 12 119/58 98 04/09/17 08:00 65 04/09/17 07:00 66 11 109/53 97 04/09/17 07:00 Nurse Practitioner Adult 20.00 50 04/09/17 06:00 67 04/09/17 05:00 17 04/09/17 04:00 64 04/09/17 04:00 98.1 64 17 138/61 96 04/09/17 03:47 98 High Flow Nasal Cannula 20.00 50 04/09/17 02:00 60 04/09/17 00:00 63 04/09/17 00:00 98.3 63 16 92/51 99 04/08/17 22:00 58 04/08/17 20:57 100 High Flow Nasal Cannula 20.00 50 04/08/17 20:00 97.9 71 18 115/60 97 04/08/17 20:00 71 04/08/17 19:00 98 Nurse Practitioner Adult 04/08/17 18:00 70 04/08/17 16:00 65 04/08/17 16:00 98.5 65 16 112/57 97 Result Diagram: 04/09/17 0614 04/08/17 0515 Laboratory Results Laboratory Tests Test 04/09/17 06:14 White Blood Count 7.9 TH/MM3 Red Blood Count 2.37 MIL/MM3 Hemoglobin 7.2 GM/DL Hematocrit 21.7 % Mean Corpuscular Volume 91.3 FL Mean Corpuscular Hemoglobin 30.2 PG Mean Corpuscular Hemoglobin 33.0 % Concent Red Cell Distribution Width 18.4 % Platelet Count 89 TH/MM3 Mean Platelet Volume 9.6 FL Neutrophils (%) (Auto) % Lymphocytes (%) (Auto) % Monocytes (%) (Auto) % Eosinophils (%) (Auto) % Basophils (%) (Auto) % Neutrophils # (Auto) TH/MM3 Lymphocytes # (Auto) TH/MM3 Monocytes # (Auto) TH/MM3 Eosinophils # (Auto) TH/MM3 Basophils # (Auto) TH/MM3 CBC Comment AUTO DIFF Differential Total Cells 100 Counted Neutrophils % (Manual) 21 % Band Neutrophils % 3 % Lymphocytes % 25 % Monocytes % 21 % Eosinophils % 1 % Neutrophils # (Manual) 2.7 TH/MM3 Metamyelocytes 1 % Myelocytes 9 % Differential Comment FINAL DIFF MANUAL Blastocytes 19 % Platelet Estimate LOW Platelet Morphology Comment NORMAL Administered Medications Medications (Trade) Dose Ordered Sig/Tylor Route PRN Reason Start Time Stop Time Status Last Admin Dose Admin Sodium Chloride (NS Flush) 2 ml BID IV FLUSH 03/26/17 09:00 04/09/17 08:18 Acetaminophen (Tylenol) 650 mg Q4H PRN PO TEMP > 100.4 03/25/17 23:15 03/30/17 08:26 Ondansetron HCl (Zofran Inj) 4 mg Q6H PRN IVP NAUSEA OR VOMITING 03/25/17 23:15 04/07/17 20:23 Acetaminophen (Tylenol) 650 mg Q6H PRN PO PAIN SCALE 1 TO 2 03/25/17 23:15 03/26/17 08:14 Famotidine (Pepcid) 10 mg BID PO 03/26/17 09:00 04/09/17 08:18 Temazepam (Restoril) 15 mg HS PRN PO insomnia 03/26/17 00:30 04/05/17 21:11 Allopurinol (Zyloprim) 100 mg BID PO 03/26/17 09:00 04/09/17 08:17 Nystatin (Mycostatin Liq) 5 ml QID SWISH-SWAL 03/26/17 18:00 04/08/17 14:26 Atorvastatin Calcium (Lipitor) 40 mg DAILY PO 03/28/17 09:00 04/09/17 08:17 Lamotrigine (LaMICtal) 50 mg HS PO 03/27/17 21:00 04/08/17 20:01 Levothyroxine Sodium (Synthroid) 100 mcg DAILY@06 PO 03/28/17 06:00 04/09/17 05:50 Acetaminophen/ Hydrocodone Bitart (Eastman 10-325 Mg) 1 tab Q4H PRN PO PAIN 7-10 03/28/17 09:15 04/09/17 14:00 Lorazepam 1 mg 1 mg Q6H PRN PO ANXIETY 03/28/17 09:15 Hold 04/03/17 06:52 Meropenem/Sodium Chloride (Merrem Inj/NS Inj) 100 ml @ 200 mls/hr Q8H IV 03/31/17 14:00 04/09/17 13:59 Senna/Docusate Sodium (Ramya-Colace) 1 tab BID PO 03/31/17 21:00 04/09/17 08:17 Magnesium Hydroxide (Milk Of Magnesia Liq) 30 ml Q12H PRN PO SEE LABEL COMMENTS 03/31/17 14:00 04/01/17 08:15 Bisacodyl (Dulcolax Supp) 10 mg DAILY PRN RECTAL SEE LABEL COMMENTS 03/31/17 14:00 04/01/17 08:14 Lactulose (Lactulose Liq) 30 ml DAILY PRN PO SEE LABEL COMMENTS 03/31/17 14:00 04/09/17 08:17 Metoprolol Tartrate (Lopressor Inj) 2.5 mg Q2H PRN IV PUSH tachycardia 04/02/17 20:15 04/04/17 22:42 Potassium Phosphate (K-Phos) 2,000 mg Q4H PRN PO For Phosphorus < 2.5 mg/dL 04/03/17 08:30 04/03/17 14:23 Digoxin (Lanoxin) 0.125 mg DAILY PO 04/04/17 09:00 04/09/17 08:17 Metoprolol Tartrate (Lopressor) 50 mg BID PO 04/04/17 21:00 04/08/17 20:01 Amiodarone HCl (Cordarone) 200 mg DAILY PO 04/04/17 09:00 04/09/17 08:17 Enoxaparin Sodium (Lovenox Inj) 40 mg Q24H SQ 04/05/17 09:00 04/09/17 08:18 Furosemide (Lasix Inj) 20 mg BID IV PUSH 04/08/17 21:00 04/09/17 08:17 Objective Remarks GENERAL: Pleasant middle aged female supine in bed in nad. SKIN: Warm and dry. HEAD: Normocephalic. EYES: No injection or drainage. NECK: Supple, trachea midline. CARDIOVASCULAR: Regular rate and rhythm RESPIRATORY: anterior atkins clear. on 20L O2 via high flow nasal cannula. GASTROINTESTINAL: Abdomen mildly distended. +BS EXTREMITIES: No cyanosis NEUROLOGICAL: awake and alert, normal speech. Assessment/Plan Problem List: (1) AML (acute myeloid leukemia) Status: Acute Plan: --Bone marrow biopsy indicates findings consistent with AML. FLT-3, CEPBA and NPM-1 analysis pending to help us prognosticate further. -- poor candidate for intensive induction remission therapy with anthracycline/ Cytarabine or HiDAC due to her cardiac and pulmonary issues and borderline performance status. --on allopurinol for tumor lysis prophylaxis --03/30/17: Dacogen day 1 started --03/31/17: transferred to [facility] [place]/t hypoxia, tachycardia, hypotension --04/01: hold Dacogen. patient remains hypotensive, tachycardic, hypoxic -- 04/03 and 04/04/2017: Day 2 and day 3 Dacogen delivered. --04/06: Finished 1st treatment with Dacogen. (2) Atrial fibrillation with RVR Status: Acute Plan: -- A. fib with RVR associated with transient chest pain: --cardiology following --on digoxin, amiodarone Assessment Ms. Richard is a 66-year-old female with a 3-week history of progressive malaise, fatigue and weakness. She reports soreness of the throat and a dry cough, both of which have been chronic. She presented to the emergency department for further workup and management because her symptoms of fatigue progressed to the point where she had difficulty walking from her bedroom to her restroom. She called EMS last night due to the severity of the symptoms. Blood work performed in the emergency department indicates findings consistent with anemia, thrombocytopenia, her WBCs are grossly abnormal with findings of numerous immature cells and blasts in the peripheral circulation. 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 Peripheral smear was formally reviewed by our hematocrit pathologist who assessed the findings to be consistent with a high- grade myeloid malignancy most consistent with acute myeloid leukemia. Plan 1. Anemia/thrombocytopenia: give 1 unit irradiated pRBC. monitor CBC 2. AML: completed Dacogen therapy over the weekend. monitor counts. 3. Afib w/ RVR: in sinus rhythm. on Amiodarone, digoxin 4. ? of PNA, on Meropenem. CXR on 04.08 shows minimal bibasilar densities. 5. DVT prophylaxis: continue Lovenox 6. constipation: continue bowel regimen. check abdominal x-ray. may need enema tomorrow if no BM today. Attending Statement The exam, history, and the medical decision-making described in the above note were completed with the assistance of the mid-level provider. I reviewed and agree with the findings presented. I attest that I had a [id number] encounter with the patient on the same day, and personally performed and documented my assessment and findings in the medical record. Pt was seen and examined. Labs, Vital signs, microbiology, imaging studies, medication list and medication/antibiotic changes noted. Photonics Engineering Technician notes reviewed. He has been febrile with temps as high as 102F at 4pm on 04/08. Started on Fluconazole and metronidazole. CMV viral load sent off. On exam, he has a diffuse appearing rash/ petechiae noted over the torso and forehead. He remains intubated. There appears to be no improvement from a respiratory standpoint. He remains Tachycardic. Neutropenia persists, no sign of count recovery. Goals of care remain aggressive. Unfortunately, the overall prognosis is very poor. Continue aggressive care with vent support, broad spectrum antibiotic support, tube feeds and transfusion support, growth factor support with neupogen. Problem Qualifiers (1) AML (acute myeloid leukemia): Qualified Code: C92.00 - Acute myeloid leukemia not having achieved remission Lidia Tracey Apr 09, 2017 14:16 Roberto Yarbrough MD Apr 09, 2017 18:05
--- NOTE | 2017-04-09 15:41 | HHI.IDPN ---
Subjective Subjective Remarks ID X cover for Dr Quintanilla 67 yo F with AML, high-grade myeloid neoplasm admitted with resp distress Receiving chemo. pt is feeling much better co peluritic type chest pain and constipation CT with Dense consolidation in the left lower lobe with air bronchograms repeat blood clx remain negative no cough Antibiotics meropenem Allergies: Coded Allergies: Penicillin (Verified Allergy, Severe, 03/25/17) *MDRO Multi-Drug Resistant Organism (Verified Adverse Reaction, Unknown, ) MRSA (abscess) 01/21/17 Objective . Vital Signs Date Time Temp Pulse Resp B/P Pulse Ox O2 Delivery O2 Flow Rate FiO2 04/09/17 14:00 76 13 111/67 96 04/09/17 14:00 79 04/09/17 13:00 80 13 97 04/09/17 12:00 98.0 128 19 04/09/17 12:00 77 04/09/17 11:00 118 13 118/60 96 04/09/17 10:02 118 19 118/60 92 04/09/17 10:00 77 04/09/17 09:00 65 13 120/57 98 04/09/17 08:44 92 High Flow Nasal Cannula 20.00 50 04/09/17 08:00 98.2 63 12 119/58 98 04/09/17 08:00 65 04/09/17 07:00 66 11 109/53 97 04/09/17 07:00 It Architect 20.00 50 04/09/17 06:00 67 04/09/17 05:00 17 04/09/17 04:00 64 04/09/17 04:00 98.1 64 17 138/61 96 04/09/17 03:47 98 High Flow Nasal Cannula 20.00 50 04/09/17 02:00 60 04/09/17 00:00 63 04/09/17 00:00 98.3 63 16 92/51 99 04/08/17 22:00 58 04/08/17 20:57 100 High Flow Nasal Cannula 20.00 50 04/08/17 20:00 97.9 71 18 115/60 97 04/08/17 20:00 71 04/08/17 19:00 98 It Architect 04/08/17 18:00 70 04/08/17 16:00 65 04/08/17 16:00 98.5 65 16 112/57 97 04/08/17 04/08/17 04/09/17 14:59 22:59 06:59 Intake Total 800 ml 240 ml 289 ml Output Total 750 ml 650 ml 350 ml Balance 50 ml -410 ml -61 ml Intake Oral 500 ml 240 ml 120 ml IV Total 300 ml 0 ml 169 ml Output Urine Total 750 ml 650 ml 350 ml # Bowel Movements 0 0 . Laboratory Tests Test 04/08/17 04/09/17 05:15 06:14 White Blood Count 9.3 TH/MM3 7.9 TH/MM3 Red Blood Count 2.47 MIL/MM3 2.37 MIL/MM3 Hemoglobin 7.6 GM/DL 7.2 GM/DL Hematocrit 22.2 % 21.7 % Mean Corpuscular Volume 90.1 FL 91.3 FL Mean Corpuscular Hemoglobin 30.7 PG 30.2 PG Mean Corpuscular Hemoglobin 34.0 % 33.0 % Concent Red Cell Distribution Width 18.4 % 18.4 % Platelet Count 77 TH/MM3 89 TH/MM3 Mean Platelet Volume 8.9 FL 9.6 FL Neutrophils (%) (Auto) % % Lymphocytes (%) (Auto) % % Monocytes (%) (Auto) % % Eosinophils (%) (Auto) % % Basophils (%) (Auto) % % Neutrophils # (Auto) TH/MM3 TH/MM3 Lymphocytes # (Auto) TH/MM3 TH/MM3 Monocytes # (Auto) TH/MM3 TH/MM3 Eosinophils # (Auto) TH/MM3 TH/MM3 Basophils # (Auto) TH/MM3 TH/MM3 CBC Comment AUTO DIFF AUTO DIFF Differential Total Cells 100 100 Counted Neutrophils % (Manual) 38 % 21 % Band Neutrophils % 1 % 3 % Lymphocytes % 21 % 25 % Monocytes % 18 % 21 % Neutrophils # (Manual) 4.2 TH/MM3 2.7 TH/MM3 Metamyelocytes 3 % 1 % Myelocytes 3 % 9 % Differential Comment FINAL DIFF FINAL DIFF MANUAL MANUAL Atypical Lymphocytes % Blastocytes 16 % 19 % Platelet Estimate LOW LOW Platelet Morphology Comment NORMAL NORMAL Eosinophils % 1 % Laboratory Tests Test 04/08/17 05:15 Sodium Level 138 MEQ/L Potassium Level 4.0 MEQ/L Chloride Level 91 MEQ/L Carbon Dioxide Level 40.1 MEQ/L Anion Gap 7 MEQ/L Blood Urea Nitrogen 24 MG/DL Creatinine 1.03 MG/DL Estimat Glomerular Filtration 53 ML/MIN Rate Random Glucose 101 MG/DL Calcium Level 8.5 MG/DL Magnesium Level 2.1 MG/DL Total Bilirubin 0.5 MG/DL Aspartate Amino Transf 55 U/L (AST/SGOT) Alanine Aminotransferase 38 U/L (ALT/SGPT) Alkaline Phosphatase 104 U/L Total Protein 5.9 GM/DL Albumin 1.9 GM/DL Imaging Last Impressions Chest X-Ray 04/08/17 0600 Signed Impressions: Service Date/Time: Saturday, April 08, 2017 03:47 - CONCLUSION: 1. Minimal bibasilar densities with scarring left upper lobe. 2. Small left pleural effusion. Beau Winter MD Chest CT 04/07/17 0000 Signed Impressions: Service Date/Time: Friday, April 07, 2017 12:28 - CONCLUSION: 1. Dense consolidation in the left lower lobe with air bronchograms most characteristic of pneumonia. 2. Small bilateral pleural effusions. 3. The mild cardiomegaly with small amount of pericardial fluid. Balaji Solorio MD Gall Bladder Ultrasound 04/06/17 0000 Signed Impressions: Service Date/Time: Thursday, April 06, 2017 17:45 - CONCLUSION: 1. Fatty liver. Right pleural effusion. No gallstones or biliary ductal dilatation. Rivas Tejeda MD Bone Biopsy CT 03/26/17 0000 Signed Impressions: Service Date/Time: Sunday, March 26, 2017 14:48 - CONCLUSION: 1. Uncomplicated CT guided bone marrow aspirate. 2. Uncomplicated CT guided bone marrow biopsy. Raoul Jeffries MD Lumbar Spine CT [id number] Signed Impressions: Service Date/Time: Sunday, March 26, 2017 01:12 - CONCLUSION: 1. Degenerative disc changes greatest at the L4-5 and L5-S1 levels with broad-based disc osteophyte complexes. There is lateral recess stenosis at the L5-S1 level. 2. Mild retrolisthesis of L5 on S1 with degenerative disc change and broad-based disc osteophyte complex. 3. Narrowing of the neuroforamina bilaterally at the L4-5 and L5-S1 levels. 4. Degenerative disc change. Balaji Solorio MD CT Angiography [id number]/25/[id number] Signed Impressions: Service Date/Time: Sunday, March 26, 2017 01:09 - CONCLUSION: 1. Mild consolidation along the left fissure and lower lobe. This could indicate early pneumonia. 2. No evidence of pulmonary embolism. Balaji Solorio MD Physical Exam GENERAL: No acute distress. On 100% NRB HEAD, EYES, EARS, NOSE, AND THROAT: No icterus. Moist mucosa. NECK: Supple without adenopathy. LUNGS: Decreased breath sounds. Few scattered rhonchio HEART: Irregular rate and rhythm. No murmurs or rubs or gallops. ABDOMEN: Bowel sounds present, obese, soft, nontender. No hepatospenomegaly or masses EXTREMITIES: No clubbing or cyanosis or edema. SKIN: No rash. NEUROLOGIC: Awake, alert. Nonfocal. PSYCHIATRIC: Calm. Assessment & Plan Remarks IMPRESSION 1. sepsis -r/o 2. Pneumonia. vs non infection penumonitis with secvere hypoxia -she has improved CT with dense consolidation - unable to expectorate 3. Leukocytosis. - ANC is wnl; most of her leukocytosis stemming from lhematological malignancy 4. Acute kidney disease. improving. 5. Acute myeloid leukemia. Receiving chemo. 6. Penicillin allergy. RECOMMENDATIONS 1. cont Meropenem. for now 2. chk sputum clx 3. Needs sputum clx vs bronch to establish ethiology of her pulmonary infiltrates in case or failing to further improve dw Dr Raoul Mello,Krysten Ferris MD Apr 09, 2017 15:40
--- NOTE | 2017-04-09 16:18 | RADRPT ---
EXAM DATE/TIME: 04/09/2017 14:49 [facility] COMPARISON: No previous studies available for comparison. INDICATIONS : Abdominal distention. MEDICAL HISTORY : Cardiovascular disease. Hypothyroidism. Hypertension. SURGICAL HISTORY : Appendectomy. ENCOUNTER: Initial ACUITY: 2 weeks PAIN SCORE: 5/10 LOCATION: Bilateral upper quadrant FINDINGS: 2 portable upright views of the abdomen are significantly blurred by breathing motion artifact. No gr oss pneumoperitoneum. No dilated loops of bowel observed. Unable to assess organomegaly due to the li mitations of the study. Lung bases are grossly clear. CONCLUSION: Limited study. No gross pneumoperitoneum. Yared Lamar Jr., MD on April 09, 2017 at 16:11 Board Certified Radiologist. This report was verified electronically.
--- NOTE | 2017-04-09 18:46 | HHI.PR ---
Subjective Remarks 66 YO [place] female with Resp insuff, Myeloid leukemia had Chemo mild sob Appetite fair Still On High flow 02 CT chest dense infilterate breathing better Objective Vital Signs Vital Signs Date Time Temp Pulse Resp B/P Pulse Ox O2 Delivery O2 Flow Rate FiO2 04/09/17 18:00 67 04/09/17 17:00 69 16 106/54 96 04/09/17 16:00 66 04/09/17 16:00 98.1 68 13 104/56 96 04/09/17 15:00 72 29 103/57 96 04/09/17 14:00 76 13 111/67 96 04/09/17 14:00 79 04/09/17 13:00 80 13 97 04/09/17 12:00 98.0 128 19 04/09/17 12:00 77 04/09/17 11:00 118 13 118/60 96 04/09/17 10:02 118 19 118/60 92 04/09/17 10:00 77 04/09/17 09:00 65 13 120/57 98 04/09/17 08:44 92 High Flow Nasal Cannula 20.00 50 04/09/17 08:00 98.2 63 12 119/58 98 04/09/17 08:00 65 04/09/17 07:00 66 11 109/53 97 04/09/17 07:00 Sld Teacher 20.00 50 04/09/17 06:00 67 04/09/17 05:00 17 04/09/17 04:00 64 04/09/17 04:00 98.1 64 17 138/61 96 04/09/17 03:47 98 High Flow Nasal Cannula 20.00 50 04/09/17 02:00 60 04/09/17 00:00 63 04/09/17 00:00 98.3 63 16 92/51 99 04/08/17 22:00 58 04/08/17 20:57 100 High Flow Nasal Cannula 20.00 50 04/08/17 20:00 97.9 71 18 115/60 97 04/08/17 20:00 71 04/08/17 19:00 98 Sld Teacher I/O 04/08/17 04/08/17 04/08/17 04/09/17 04/09/17 04/09/17 07:00 15:00 23:00 07:00 15:00 23:00 Intake Total 206 ml 800 ml 240 ml 289 ml 436 ml Output Total 700 ml 750 ml 650 ml 350 ml 700 ml Balance -494 ml 50 ml -410 ml -61 ml -264 ml Intake Oral 100 ml 500 ml 240 ml 120 ml 300 ml IV Total 106 ml 300 ml 0 ml 169 ml 136 ml Output Urine Total 700 ml 750 ml 650 ml 350 ml 700 ml Stool Total 0 ml # Bowel Movements 0 0 0 Result Diagram: 04/09/17 0614 04/08/17 0515 Objective Remarks GENERAL: WBWn Female, mild sob SKIN: Warm and dry. HEAD: Normocephalic. EYES: No scleral icterus. No injection or drainage. NECK: Supple, trachea midline. No JVD or lymphadenopathy. CARDIOVASCULAR: Regular rate and rhythm without murmurs, gallops, or rubs. RESPIRATORY: Breath sounds equal bilaterally. No accessory muscle use. GASTROINTESTINAL: Abdomen soft, non-tender, nondistended. MUSCULOSKELETAL: No cyanosis, or edema. BACK: Nontender without obvious deformity. No CVA tenderness. A/P Assessment and Plan Resp Insuff Hypoxia Left basal infilt myeloid Leukemia HTN Partial sz PLAN: High flow 02 Wean 02 to keep sat >90% Aerosol nebs Rt to induce sputum,if no answers, will kacie bronch Likley end up on vent Jorge Thibodeaux MD Apr 09, 2017 18:46
[2017-04-09 19:28] LABS: BICARBONATE 35.8 MEQ/L (21.0-32.0); POTASSIUM 3.8 MEQ/L (3.5-5.1)
--- NOTE | 2017-04-09 20:06 | HHI.PR ---
Subjective Interval History Alert, oriented, pain much improved, breathing well on high flow oxygen, Review of Systems Constitutional Constitutional Remarks 10 systems reviewed and otherwise negative Vitals/Results Intake & Output 04/08/17 04/08/17 04/09/17 15:00 23:00 07:00 Intake Total 800 ml 240 ml 289 ml Output Total 750 ml 650 ml 350 ml Balance 50 ml -410 ml -61 ml Intake Oral 500 ml 240 ml 120 ml IV Total 300 ml 0 ml 169 ml Output Urine Total 750 ml 650 ml 350 ml # Bowel Movements 0 0 Vital Signs Vital Signs Date Time Temp Pulse Resp B/P Pulse Ox O2 Delivery O2 Flow Rate FiO2 04/09/17 18:00 67 04/09/17 17:00 69 16 106/54 96 04/09/17 16:00 66 04/09/17 16:00 98.1 68 13 104/56 96 04/09/17 15:00 72 29 103/57 96 04/09/17 14:00 76 13 111/67 96 04/09/17 14:00 79 04/09/17 13:00 80 13 97 04/09/17 12:00 98.0 128 19 04/09/17 12:00 77 04/09/17 11:00 118 13 118/60 96 04/09/17 10:02 118 19 118/60 92 04/09/17 10:00 77 04/09/17 09:00 65 13 120/57 98 04/09/17 08:44 92 High Flow Nasal Cannula 20.00 50 04/09/17 08:00 98.2 63 12 119/58 98 04/09/17 08:00 65 04/09/17 07:00 66 11 109/53 97 04/09/17 07:00 Pump Mechanic 20.00 50 04/09/17 06:00 67 04/09/17 05:00 17 04/09/17 04:00 64 04/09/17 04:00 98.1 64 17 138/61 96 04/09/17 03:47 98 High Flow Nasal Cannula 20.00 50 04/09/17 02:00 60 04/09/17 00:00 63 04/09/17 00:00 98.3 63 16 92/51 99 04/08/17 22:00 58 04/08/17 20:57 100 High Flow Nasal Cannula 20.00 50 CBC/BMP: 04/09/17 0614 04/09/17 1808 Lab Results Laboratory Tests Test 04/09/17 04/09/17 06:14 18:08 White Blood Count 7.9 TH/MM3 Red Blood Count 2.37 MIL/MM3 Hemoglobin 7.2 GM/DL Hematocrit 21.7 % Mean Corpuscular Volume 91.3 FL Mean Corpuscular Hemoglobin 30.2 PG Mean Corpuscular Hemoglobin 33.0 % Concent Red Cell Distribution Width 18.4 % Platelet Count 89 TH/MM3 Mean Platelet Volume 9.6 FL Neutrophils (%) (Auto) % Lymphocytes (%) (Auto) % Monocytes (%) (Auto) % Eosinophils (%) (Auto) % Basophils (%) (Auto) % Neutrophils # (Auto) TH/MM3 Lymphocytes # (Auto) TH/MM3 Monocytes # (Auto) TH/MM3 Eosinophils # (Auto) TH/MM3 Basophils # (Auto) TH/MM3 CBC Comment AUTO DIFF Differential Total Cells 100 Counted Neutrophils % (Manual) 21 % Band Neutrophils % 3 % Lymphocytes % 25 % Monocytes % 21 % Eosinophils % 1 % Neutrophils # (Manual) 2.7 TH/MM3 Metamyelocytes 1 % Myelocytes 9 % Differential Comment FINAL DIFF MANUAL Blastocytes 19 % Platelet Estimate LOW Platelet Morphology Comment NORMAL Sodium Level 136 MEQ/L Potassium Level 3.8 MEQ/L Chloride Level 95 MEQ/L Carbon Dioxide Level 35.8 MEQ/L Anion Gap 5 MEQ/L Blood Urea Nitrogen 24 MG/DL Creatinine 1.00 MG/DL Estimat Glomerular Filtration 55 ML/MIN Rate Random Glucose 89 MG/DL Calcium Level 8.4 MG/DL Physical Exam General General Appearance: Well Developed, Well Nourished, No Acute Distress, Anxious , Obese Eyes Eye Exam: Pupils Equal, Pupils Reactive Ears & Nose Ears & Nose Exam: Nasal Mucosa Dobson Throat Throat Exam: Oral Mucosa Dobson & Moist Neck Neck Exam: Neck Supple, Trachea Midline Pulmonary Resp Exam: Breath Sounds Equal, Crackles, Decreased Bases Cardiology CV Exam: Regular, Normal Sinus Rhythm, Good Perfusion Gastrointestinal/Abdomen GI Exam: Soft, Non-Tender, Bowel Sounds Present, Non-Distended Musculoskeletal MS Exam: Normal Tone Integumentary Skin Exam: Warm, Dry Extremeties Extremities Exam: No Edema, Pedal Pulses Palpable Neurologic Neuro Exam: Alert, Awake, Oriented, Speech Clear, Moving All Extremities, No Focal Deficits Psychiatric Psych Exam: Appropriate Responses VTE Prophylaxis VTE Prophylaxis Device: SCDs Assessment/Plan Problem List: (1) Sepsis (2) Anemia (3) Thrombocytopenia (4) Elevated white blood cell count (5) Pneumonia (6) CKD (chronic kidney disease) stage 3, GFR 30-59 ml/min (7) AML (acute myeloid leukemia) (8) Low blood pressure (9) Tachycardia (10) Hx TIA/stroke w/o resid (11) hx cerebral aneurysm (12) Atrial fibrillation with RVR Assessment/Plan Assessment Acute myeloid leukemia, initially with severe leukocytosis, leukocytosis improved Fatty liver Right pleural effusion, small Sepsis Pneumonia, slow progress Hypoxemia Anemia Thrombocytopenia Obesity Acute kidney injury, improved Paroxysmal atrial tachycardia/atrial fibrillation, rate is well-controlled at this time 4.3 cm ascending aorta Left ventricular hypertrophy Normal ejection fraction History of TIA, chronic kidney disease, constipation, back pain, penicillin allergy, Management Continue Amiodarone Digoxin Lopressor Continue antibiotics, infectious disease following Monitor CBC, hematology oncology following Discussed with bank sales and service manager, respiratory therapist to induce sputum to send again for culture Cardiology following Supplemental oxygen Follow renal function Follow electrolytes and replace as needed oncologist and bank sales and service manager following Discussed with patient Physical therapy if tolerated Discussed with nurse 35 minutes Problem Qualifiers (1) Sepsis: Qualified Code: A41.9 - Sepsis, due to unspecified organism (2) Anemia: Qualified Code: D64.9 - Anemia, unspecified type (3) Elevated white blood cell count: Qualified Code: D72.829 - Leukocytosis, unspecified type (4) Pneumonia: Qualified Code: J18.1 - Pneumonia of left lower lobe due to infectious organism (5) AML (acute myeloid leukemia): Qualified Code: C92.00 - Acute myeloid leukemia not having achieved remission (6) Low blood pressure: Qualified Code: I95.9 - Hypotension, unspecified hypotension type Qamar Paniagua MD Apr 09, 2017 20:06
[2017-04-09] MEDS: RESP: ALBUTEROL 2.5 MG/IPRATROPIUM 0.5 MG NEB (PRN) NEB (20:22)
[2017-04-09] MEDS: lamoTRIgine 25 MG TAB PO SCH (21:35)
[2017-04-10] VITALS (30 sets, daily range): BP systolic 99–144; BP diastolic 53–65; PULSE 58–76; RESP 11–32; TEMP 98–98.4; O2SAT 92–98
[2017-04-10] MEDS: FUROSEMIDE 20 MG/2 ML VIAL IV PUSH SCH ×3 (00:11→21:00)
[2017-04-10] MEDS: MEROPENEM INJ 1,000 MG in SODIUM CHLORIDE 0.9% INJ 100 ML IV SCH ×2 (00:12→05:27)
[2017-04-10] MEDS: ACETAMINOPHEN/HYDROcodone 325 MG/10 MG TAB PO PRN ×6 (02:08→23:58)
[2017-04-10] MEDS: LEVOTHYROXINE SODIUM 100 MCG TAB PO SCH (05:26)
[2017-04-10] MEDS: INSULIN ASPART SUPPLEMENTAL SCALE SQ SCH ×4 (06:45→21:00)
[2017-04-10] MEDS: ATORVASTATIN 40 MG TAB PO SCH (08:14)
[2017-04-10] MEDS: AMIODARONE 200 MG TAB PO SCH (08:14)
[2017-04-10] MEDS: DOCUSATE SODIUM 50 MG/SENNA 8.6 MG TAB PO SCH ×2 (08:14→21:00)
[2017-04-10] MEDS: FAMOTIDINE 20 MG TAB PO SCH ×2 (08:14→21:00)
[2017-04-10] MEDS: ALLOPURINOL 100 MG TAB PO SCH ×2 (08:14→21:00)
[2017-04-10] MEDS: METOPROLOL TARTRATE 50 MG TAB PO SCH ×2 (08:15→21:00)
[2017-04-10] MEDS: DIGOXIN 0.125 MG TAB PO SCH (08:15)
[2017-04-10] MEDS: NYSTATIN SUSP 500,000 U/5 ML CUP SWISH-SWAL SCH ×4 (08:16→21:00)
[2017-04-10] MEDS: SODIUM CHLORIDE 0.9% FLUSH 10 ML FLUSH IV FLUSH SCH ×2 (08:16→21:00)
[2017-04-10] MEDS: ENOXAPARIN SODIUM 40 MG/0.4 ML SYRINGE SQ SCH (08:16)
[2017-04-10] MEDS ORDERED: SOD PHOSPHATE/SOD BIPHOSPHATE (ADULT) ENEMA 133ML RECTAL ONE (09:00)
[2017-04-10] MEDS: LACTULOSE SYRUP 20 GM/30 ML CUP PO PRN (10:51)
--- NOTE | 2017-04-10 12:11 | HHI.IDPN ---
Note Infectious Disease Note Patient on O2 nasal canula. No complaints. Awake and responsive. Comfortable. No sputum production. No cough. Says she gets pain under her breasts with deep inspiration and when she talks. Afebrile. WBC down to normal. Diagnosed with high grade myeloid neoplasm. Receiving chemo. PAST MEDICAL HISTORY 1. Hypertension 2. Hypothyroidism 3. Chronic obstructive pulmonary disease 4. partial seizures 5. intracranial aneurysm 6. anxiety disorder. 7. Appendectomy. 8. The vein surgery in the left leg. ALLERGIES PENICILLIN OBJECTIVE: Vital Signs Date Time Temp Pulse Resp B/P Pulse Ox O2 Delivery O2 Flow Rate FiO2 04/10/17 10:00 70 04/10/17 10:00 73 23 140/64 94 04/10/17 09:36 98 High Flow Nasal Cannula 20.00 50 04/10/17 09:00 68 32 129/60 94 04/10/17 08:01 98.1 63 12 128/58 96 04/10/17 08:00 61 04/10/17 07:00 97 Stave Block Roller 20.00 50 04/10/17 07:00 61 12 99/56 97 04/10/17 06:00 68 20 135/61 94 04/10/17 06:00 68 04/10/17 05:00 62 15 117/57 95 04/10/17 04:00 63 14 119/58 96 04/10/17 04:00 63 04/10/17 04:00 98.2 63 18 119/58 96 04/10/17 03:00 61 18 115/57 97 04/10/17 02:00 63 16 122/63 95 04/10/17 02:00 64 04/10/17 01:45 98.1 67 20 126/62 94 04/10/17 01:43 67 23 126/62 94 04/10/17 01:30 98.1 64 14 115/56 96 04/10/17 01:28 64 15 115/56 96 04/10/17 01:00 62 13 109/59 98 04/10/17 00:00 60 11 110/55 97 04/10/17 00:00 60 11 110/55 97 04/10/17 00:00 98.0 60 16 110/55 97 04/10/17 00:00 60 04/09/17 23:00 62 14 105/55 96 04/09/17 22:00 72 04/09/17 22:00 72 16 122/60 95 04/09/17 21:00 77 24 123/58 93 04/09/17 20:25 98 High Flow Nasal Cannula 20.00 50 04/09/17 20:00 69 04/09/17 20:00 96 Stave Block Roller 20.00 50 04/09/17 20:00 69 14 116/56 96 04/09/17 20:00 97.9 69 20 116/56 96 04/09/17 18:00 67 04/09/17 17:00 69 16 106/54 96 04/09/17 16:00 66 04/09/17 16:00 98.1 68 13 104/56 96 04/09/17 15:00 72 29 103/57 96 04/09/17 14:00 76 13 111/67 96 04/09/17 14:00 79 04/09/17 13:00 80 13 97 Laboratory Tests Test 04/09/17 06:14 White Blood Count 7.9 TH/MM3 Red Blood Count 2.37 MIL/MM3 Hemoglobin 7.2 GM/DL Hematocrit 21.7 % Mean Corpuscular Volume 91.3 FL Mean Corpuscular Hemoglobin 30.2 PG Mean Corpuscular Hemoglobin 33.0 % Concent Red Cell Distribution Width 18.4 % Platelet Count 89 TH/MM3 Mean Platelet Volume 9.6 FL Neutrophils (%) (Auto) % Lymphocytes (%) (Auto) % Monocytes (%) (Auto) % Eosinophils (%) (Auto) % Basophils (%) (Auto) % Neutrophils # (Auto) TH/MM3 Lymphocytes # (Auto) TH/MM3 Monocytes # (Auto) TH/MM3 Eosinophils # (Auto) TH/MM3 Basophils # (Auto) TH/MM3 CBC Comment AUTO DIFF Differential Total Cells 100 Counted Neutrophils % (Manual) 21 % Band Neutrophils % 3 % Lymphocytes % 25 % Monocytes % 21 % Eosinophils % 1 % Neutrophils # (Manual) 2.7 TH/MM3 Metamyelocytes 1 % Myelocytes 9 % Differential Comment FINAL DIFF MANUAL Blastocytes 19 % Platelet Estimate LOW Platelet Morphology Comment NORMAL Laboratory Tests Test 04/09/17 18:08 Sodium Level 136 MEQ/L Potassium Level 3.8 MEQ/L Chloride Level 95 MEQ/L Carbon Dioxide Level 35.8 MEQ/L Anion Gap 5 MEQ/L Blood Urea Nitrogen 24 MG/DL Creatinine 1.00 MG/DL Estimat Glomerular Filtration 55 ML/MIN Rate Random Glucose 89 MG/DL Calcium Level 8.4 MG/DL Microbiology Date/Time Procedure Status Source Growth 04/09/17 20:45 Cancelled Sputum Expectorated Sputum PHYSICAL EXAMINATION: GENERAL: No acute distress. HEENT: No icterus. Moist mucosa. NECK: Supple without adenopathy. LUNGS: Decreased breath sounds. HEART: Irregular rate and rhythm. No murmurs or rubs or gallops. ABDOMEN: Bowel sounds present, obese, soft, nontender. EXTREMITIES: No clubbing or cyanosis or edema. SKIN: No rash. NEUROLOGIC: Nonfocal. PSYCHIATRIC: Calm. IMPRESSION 1. Sepsis. Currently without evidence. 2. Pneumonia. lung infiltrate. Still with infiltrate at left lower lung. did not respond to aztreonam and levaquin. No significant response of infiltrate to Meropenem but WBC down to normal. ? Chemo response. 3. Leukocytosis. Not certain it is due to infection. decreased. 4. Acute kidney disease. 5. Acute myeloid leukemia. Receiving chemo. 6. Penicillin allergy. RECOMMENDATIONS 1. Stop Meropenem. 2. Monitor the temperature 3. Monitor clinical status. Brody Reich MD Apr 10, 2017 12:11
--- NOTE | 2017-04-10 16:38 | ECHRPT ---
Indication: EF assesment of CHF CONCLUSIONS The left ventricular systolic function is grossly normal with an estimated ejection fraction in the range of 55-60%. No atrial level shunt is observed with agitated saline contrast administration. BP: 97 / 57 HR: 63 Rhythm: Sinus Technical Quality:Fair FINDINGS LEFT VENTRICLE The left ventricular systolic function is grossly normal with an estimated ejection fraction in the range of 55-60%. LEFT ATRIUM The left atrium was not well visualized. RIGHT ATRIUM The right atrium is not well visualized. ATRIAL SEPTUM No atrial level shunt is observed with agitated saline contrast administration. AORTA The aortic root and proximal ascending aorta are not well visualized. MITRAL VALVE Grossly normal mitral valve AORTIC VALVE The aortic valve is not well visualized. TRICUSPID VALVE The tricuspid valve is not well visualized. PULMONARY VALVE The pulmonary valve is not well visualized. VESSELS The inferior vena cava was not well visualized. Donal Chang DO (Electronically Signed) Final Date:10 April 2017 16:38
--- NOTE | 2017-04-10 16:49 | HHI.HCPN ---
Reason for visit a. To assist with evaluation and management of symptoms including: Shortness of breath and debility. b. To assist medical decision maker(s) with: better understanding of current medical conditions; weighing benefits/burdens of medical treatment options; making medical treatment decisions. . Subjective/Interval History Mrs. Sandi England is a 66-year-old female with a medical history significant for COPD, CK D, multiple brain aneurysm, HTN, TIA and seizure disorder. 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 Clinical course complicated by sepsis and pneumonia. Palliative care has been consulted for further clarifications of goals of care given newly diagnosed of acute myeloid leukemia with limited treatment options secondary to acute complications. Patient seen in ICU, sitting at bedside. Patient is alert and oriented x self, place and situation. Able to communicate her needs, she is currently on high flow oxygen 45% FiO2/15 L. Most recent chest x-ray 04/13/17 shows minimal densities with scarring left upper lobe and small left pleural effusion. Patient endorsing inspiratory pain, bilateral lower chest pain. Pain exacerbated with exertion, relieved with Wh[place] when necessary. Patient required 6 PRN doses of Wh[place] within the last 24 hours with good effect. Patient with chronic history of constipation requiring enemas, last BM today - small. Abdominal x-ray 04/09/17 showing no gross pneumoperitoneum. Lipase elevated 1619 from 303 on 03/25. Ultrasound of the gallbladder 04/06/17 revealed fatty liver with no gallstones or biliary duct dilatation. 04/09/17 labs, hemoglobin was 7.2, patient received 1 PRBC. Patient with persistent leukocytosis, WBC 7.9, likely secondary to chemotherapy. Patient has completed first treatment of chemotherapy. She remains afebrile and is stable hemodynamically. Tolerating regular diet and no difficulty swallowing. Patient verbalized feeling better today. Patient with a good understanding of her clinical condition, tells me that she is well aware that his clinical condition can change at any time. Remains optimistic, She is hoping to get better and return home. Goals remain unchanged, continue aggressive management short of no cardiac code. Hospice philosophy and benefits previously introduced , patient receptive to this should her clinical condition worsen, increased symptom burden or continue decline. Patient appreciative of my visit. No family at bedside. . Family/friend interactions No family at bedside. . Advance Directives Living Will: Copy in medical record Health Care Surrogate: Copy in medical record Durable Power of Lawn Mower Sharpener: Never completed Advance Directive Specifics Date completed: 03/30/2017. . Health Care Surrogate(s): Son Sarthak Miguel as HCS, alternate HCS daughter Jerri Miguel. . Documented care wishes: "I do not wish to be revived by any means are recent. Allow natural if I feel that I cannot continue to treatment due to pain, I wish to stop all treatments and to be made comfortable until I pass". Significant change in goals: Goals of care remain unchanged . Objective Vital Signs Date Time Temp Pulse Resp B/P Pulse Ox O2 Delivery O2 Flow Rate FiO2 04/10/17 12:00 65 04/10/17 12:00 98.2 69 12 111/55 96 04/10/17 11:00 70 13 108/53 94 04/10/17 10:00 70 04/10/17 10:00 73 23 140/64 94 04/10/17 09:36 98 High Flow Nasal Cannula 20.00 50 04/10/17 09:00 68 32 129/60 94 04/10/17 08:01 98.1 63 12 128/58 96 04/10/17 08:00 61 04/10/17 07:00 97 Cryptographic Machine Operator 20.00 50 04/10/17 07:00 61 12 99/56 97 04/10/17 06:00 68 20 135/61 94 04/10/17 06:00 68 04/10/17 05:00 62 15 117/57 95 04/10/17 04:00 63 14 119/58 96 04/10/17 04:00 63 04/10/17 04:00 98.2 63 18 119/58 96 04/10/17 03:00 61 18 115/57 97 04/10/17 02:00 63 16 122/63 95 04/10/17 02:00 64 04/10/17 01:45 98.1 67 20 126/62 94 04/10/17 01:43 67 23 126/62 94 04/10/17 01:30 98.1 64 14 115/56 96 04/10/17 01:28 64 15 115/56 96 04/10/17 01:00 62 13 109/59 98 04/10/17 00:00 60 11 110/55 97 04/10/17 00:00 60 11 110/55 97 04/10/17 00:00 98.0 60 16 110/55 97 04/10/17 00:00 60 04/09/17 23:00 62 14 105/55 96 04/09/17 22:00 72 04/09/17 22:00 72 16 122/60 95 04/09/17 21:00 77 24 123/58 93 04/09/17 20:25 98 High Flow Nasal Cannula 20.00 50 04/09/17 20:00 69 04/09/17 20:00 96 Cryptographic Machine Operator 20.00 50 04/09/17 20:00 69 14 116/56 96 04/09/17 20:00 97.9 69 20 116/56 96 04/09/17 18:00 67 04/09/17 17:00 69 16 106/54 96 04/09/17 16:00 66 04/09/17 16:00 98.1 68 13 104/56 96 Intake & Output 04/10/17 04/10/17 07:00 19:00 Intake Total 2072 ml Output Total 1100 ml Balance 972 ml Intake Oral 1320 ml IV Total 408 ml Packed Cells 344 ml Output Urine Total 1100 ml # Bowel Movements 0 Physical Exam CONSTITUTIONAL/GENERAL: This is an adequately nourished patient in no acute distress. Sitting at bedside. TUBES/LINES/DRAINS: PIV's, high flow nasal cannula, Lujan catheter. SKIN: No jaundice, rashes, or lesions. Ecchymoses on upper extremities. No wounds seen anteriorly. Skin temperature appropriate. Not diaphoretic. HEAD: Atraumatic. Normocephalic. EYES: Pupils equal and round and reactive. Extraocular motions intact. No scleral icterus. No injection or drainage. ENT: Hearing grossly normal. Nose without bleeding or purulent drainage. Moist oral mucosa. NECK: Trachea midline. Supple, nontender. CARDIOVASCULAR: Irregular rate and rhythm. Systolic murmur. No JVD. Peripheral pulses symmetric. RESPIRATORY/CHEST: Symmetric, clear,diminished to auscultation. High flow nasal cannula 45% FiO2, 15 L GASTROINTESTINAL: Abdomen soft, round, mildly distended. No guarding. Bowel sounds present. GENITOURINARY: Without palpable bladder distension. Lujan catheter in place. MUSCULOSKELETAL: Extremities without clubbing, cyanosis, or edema. NEUROLOGICAL: Awake and alert. Motor and sensory grossly within normal limits. Follows commands. Moves all extremities. PSYCHIATRIC: Calm, pleasant. . Diagnostic Tests Laboratory Laboratory Tests Test 04/08/17 04/09/17 04/09/17 04/09/17 05:15 06:14 18:08 19:30 White Blood Count 9.3 TH/MM3 7.9 TH/MM3 (4.0-11.0) (4.0-11.0) Red Blood Count 2.47 MIL/MM3 2.37 MIL/MM3 (4.00-5.30) (4.00-5.30) Hemoglobin 7.6 GM/DL 7.2 GM/DL (11.6-15.3) (11.6-15.3) Hematocrit 22.2 % 21.7 % (35.0-46.0) (35.0-46.0) Mean Corpuscular Volume 90.1 FL 91.3 FL (80.0-100.0) (80.0-100.0) Mean Corpuscular Hemoglobin 30.7 PG 30.2 PG (27.0-34.0) (27.0-34.0) Mean Corpuscular Hemoglobin 34.0 % 33.0 % Concent (32.0-36.0) (32.0-36.0) Red Cell Distribution Width 18.4 % 18.4 % (11.6-17.2) (11.6-17.2) Platelet Count 77 TH/MM3 89 TH/MM3 (150-450) (150-450) Mean Platelet Volume 8.9 FL 9.6 FL (7.0-11.0) (7.0-11.0) Neutrophils (%) (Auto) % (16.0-70.0) % (16.0-70.0) Lymphocytes (%) (Auto) % (9.0-44.0) % (9.0-44.0) Monocytes (%) (Auto) % (0.0-8.0) % (0.0-8.0) Eosinophils (%) (Auto) % (0.0-4.0) % (0.0-4.0) Basophils (%) (Auto) % (0.0-2.0) % (0.0-2.0) Neutrophils # (Auto) TH/MM3 TH/MM3 (1.8-7.7) (1.8-7.7) Lymphocytes # (Auto) TH/MM3 TH/MM3 (1.0-4.8) (1.0-4.8) Monocytes # (Auto) TH/MM3 (0-0.9) TH/MM3 (0-0.9) Eosinophils # (Auto) TH/MM3 (0-0.4) TH/MM3 (0-0.4) Basophils # (Auto) TH/MM3 (0-0.2) TH/MM3 (0-0.2) CBC Comment AUTO DIFF AUTO DIFF Differential Total Cells 100 100 Counted Neutrophils % (Manual) 38 % (16-70) 21 % (16-70) Band Neutrophils % 1 % (0-6) 3 % (0-6) Lymphocytes % 21 % (9-44) 25 % (9-44) Monocytes % 18 % (0-8) 21 % (0-8) Neutrophils # (Manual) 4.2 TH/MM3 2.7 TH/MM3 (1.8-7.7) (1.8-7.7) Metamyelocytes 3 % (0-1) 1 % (0-1) Myelocytes 3 % (0-0) 9 % (0-0) Differential Comment FINAL DIFF FINAL DIFF MANUAL MANUAL Atypical Lymphocytes % (0-0) Blastocytes 16 % (0-0) 19 % (0-0) Platelet Estimate LOW (NORMAL) LOW (NORMAL) Platelet Morphology Comment NORMAL NORMAL (NORMAL) (NORMAL) Sodium Level 138 MEQ/L 136 MEQ/L (136-145) (136-145) Potassium Level 4.0 MEQ/L 3.8 MEQ/L (3.5-5.1) (3.5-5.1) Chloride Level 91 MEQ/L 95 MEQ/L (98-107) (98-107) Carbon Dioxide Level 40.1 MEQ/L 35.8 MEQ/L (21.0-32.0) (21.0-32.0) Anion Gap 7 MEQ/L (5-15) 5 MEQ/L (5-15) Blood Urea Nitrogen 24 MG/DL (7-18) 24 MG/DL (7-18) Creatinine 1.03 MG/DL 1.00 MG/DL (0.50-1.00) (0.50-1.00) Estimat Glomerular Filtration 53 ML/MIN (>89) 55 ML/MIN (>89) Rate Random Glucose 101 MG/DL 89 MG/DL (74-106) (74-106) Calcium Level 8.5 MG/DL 8.4 MG/DL (8.5-10.1) (8.5-10.1) Magnesium Level 2.1 MG/DL (1.5-2.5) Total Bilirubin 0.5 MG/DL (0.2-1.0) Aspartate Amino Transf 55 U/L (15-37) (AST/SGOT) Alanine Aminotransferase 38 U/L (10-53) (ALT/SGPT) Alkaline Phosphatase 104 U/L (45-117) Total Protein 5.9 GM/DL (6.4-8.2) Albumin 1.9 GM/DL (3.4-5.0) Eosinophils % 1 % (0-4) Blood Type B NEGATIVE Antibody Screen NEGATIVE Crossmatch Irradiated/Leukocyte-Reduced RBC Blood Bank Comment Result Diagram: 04/09/17 0614 04/09/17 1808 Microbiology Microbiology Date/Time Procedure Status Source Growth 04/09/17 20:45 Cancelled Sputum Expectorated Sputum Imaging Last 48 hours Impressions Abdomen X-Ray 04/09/17 0000 Signed Impressions: Service Date/Time: Sunday, April 09, 2017 14:49 - CONCLUSION: Limited study. No gross pneumoperitoneum. Yared Lamar Jr., MD Assessment and Plan Disease Oriented Problem List: (1) Acute respiratory failure (2) AML (acute myeloid leukemia) (3) Sepsis (4) Pneumonia (5) CKD (chronic kidney disease) stage 3, GFR 30-59 ml/min (6) Atrial fibrillation with RVR (7) Anemia (8) hx cerebral aneurysm Symptom Scale: (1) Shortness of breath 0-10 Scale: Unable to quantify Comment: Secondary to pneumonia, pulmonary edema. Currently on high flow nasal cannula 45% FiO2, 15 L (2) Debility 0-10 Scale: Unable to quantify Comment: Progressive. Worsen within the last month. Pertinent Non-Medical Issues Psychosocial: Originally from [place]. , has 2 adult children. 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 Spiritual: Tenriism biju. Legal: Living will and designation of healthcare surrogate completed. Ethical issues impacting care: No ethical issues identified. . Important Contacts HCS/son Sarthak Miguel daughter Jerri Miguel . . Prognosis Mrs. Sandi England is a 66 y/o female with a medical history significant for COPD, CK D, multiple brain aneurysm, HTN, TIA and newly diagnosed acute myeloid leukemia. Patient's overall prognosis is poor given ongoing acute on chronic comorbidities, newly diagnosed AML, respiratory failure and physical deconditioning. Patient very at high risk for further complications, continue decline and . . Code Status: Alternative Code Plan * CODE STATUS: Alternate code/intubation only. * HEALTHCARE DECISION MAKING: Patient participating in medical decision-making. Patient demonstrates a good understanding of her medical condition and the ability to weight benefits burdens of treatment options. Designation of healthcare surrogate in file, patient designated her son Sarthak Miguel as HCS, alternate HCS daughter Jerri Miguel. * GOALS OF CARE: Goals of care remain unchanged, patient wishing to continue with aggressive medical management short of no cardiac code/intubation only. Patient remains optimistic but realistic, hoping to be discharge home once clinically stable. Hospice philosophy and benefits previously introduced, patient and family receptive to this should patient's clinical condition worsen , increased symptom burden or continue decline. * SYMPTOMS: = Dyspnea, secondary to persistent pneumonia, anemia, respiratory failure, acute illness. ID and pulm following. Patient currently on high flow nasal cannula 45% FiO2, 15 L. has been gradually weaned off oxygen since last week. = Debility, progressive. Worsening during the past month. Exacerbated by acute illness and prolonged hospitalization. Currently participating in PT. Will likely require PT at rehabilitation vs home health. = Constipation, exacerbated by opioid and bedrest. Currently on Ramya-colace twice a day. Milk of magnesia, bisacodyl suppository, lactulose available as needed. Requiring frequent fleet enemas. Palliative care recommending increase Ramya-Colace to 2 tabs twice a day given chronic constipation and frequent use of fleets enema = Pain- to bilateral lower chest area, required the use of 6 PRN [place] doses over 24 hours. Patient reports current pain regimen is effective. No further recommendations at this time. * Ongoing emotional support and active listening provided. * Case discussed with bedside FADY Bull. * Palliative care contact information has been provided to patient and family. * Palliative care will continue to follow-up as needed for further clarifications of goals of care and emotional support as patient's clinical course continues to evolve. . Time Spent Total Floor Time (mins): 28 (Total time to include review of medical records, physical exam, goals of care conversation with patient, symptom management and Case discussion with bedside nurse Ml) >50% Counseling/Coord of Care: Yes Attestation To help prompt me to consider important information that might be impacting today's encounter and assessment, information from prior notes written by myself or my colleagues may have been "brought forward" into today's note. My signature on this note, however, is an attestation that I personally performed the exam, history, and/or decision-making noted today, and, unless otherwise indicated, the interactions with patient, family, and staff as well as the review of records all occurred today. I also attest that the listed assessment and stated plan reflect my best clinical judgment today based on the combination of historical information, prior notes, and today's exam/ interactions. When time spent is documented, it refers only to time spent today by the signer, or if indicated, combined time spent today by collaborating physician/nurse practitioner. Luanne Montoya Apr 10, 2017 16:47
--- NOTE | 2017-04-10 17:05 | HHI.PR ---
Subjective Interval History Awake, very sleepy, very tired, wants to sleep all the time Review of Systems Constitutional Constitutional Remarks 10 systems reviewed and otherwise negative Vitals/Results Intake & Output 04/09/17 04/09/17 04/10/17 14:59 22:59 06:59 Intake Total 436 ml 960 ml 1112 ml Output Total 700 ml 350 ml 750 ml Balance -264 ml 610 ml 362 ml Intake Oral 300 ml 960 ml 360 ml IV Total 136 ml 0 ml 408 ml Packed Cells 344 ml Output Urine Total 700 ml 350 ml 750 ml Stool Total 0 ml # Bowel Movements 0 0 Vital Signs Vital Signs Date Time Temp Pulse Resp B/P Pulse Ox O2 Delivery O2 Flow Rate FiO2 04/10/17 16:00 98.0 71 16 109/55 94 04/10/17 16:00 69 04/10/17 15:00 71 24 92 04/10/17 14:00 70 18 96 04/10/17 14:00 72 04/10/17 13:01 69 17 109/55 96 04/10/17 12:00 65 04/10/17 12:00 98.2 69 12 111/55 96 04/10/17 11:00 70 13 108/53 94 04/10/17 10:00 70 04/10/17 10:00 73 23 140/64 94 04/10/17 09:36 98 High Flow Nasal Cannula 20.00 50 04/10/17 09:00 68 32 129/60 94 04/10/17 08:01 98.1 63 12 128/58 96 04/10/17 08:00 61 04/10/17 07:00 97 Commissary Officer 20.00 50 04/10/17 07:00 61 12 99/56 97 04/10/17 06:00 68 20 135/61 94 04/10/17 06:00 68 04/10/17 05:00 62 15 117/57 95 04/10/17 04:00 63 14 119/58 96 04/10/17 04:00 63 04/10/17 04:00 98.2 63 18 119/58 96 04/10/17 03:00 61 18 115/57 97 04/10/17 02:00 63 16 122/63 95 04/10/17 02:00 64 04/10/17 01:45 98.1 67 20 126/62 94 04/10/17 01:43 67 23 126/62 94 04/10/17 01:30 98.1 64 14 115/56 96 04/10/17 01:28 64 15 115/56 96 04/10/17 01:00 62 13 109/59 98 04/10/17 00:00 60 11 110/55 97 04/10/17 00:00 60 11 110/55 97 04/10/17 00:00 98.0 60 16 110/55 97 04/10/17 00:00 60 04/09/17 23:00 62 14 105/55 96 04/09/17 22:00 72 04/09/17 22:00 72 16 122/60 95 04/09/17 21:00 77 24 123/58 93 04/09/17 20:25 98 High Flow Nasal Cannula 20.00 50 04/09/17 20:00 69 04/09/17 20:00 96 Commissary Officer 20.00 50 04/09/17 20:00 69 14 116/56 96 04/09/17 20:00 97.9 69 20 116/56 96 04/09/17 18:00 67 CBC/BMP: 04/09/17 0614 04/09/17 1808 Lab Results Laboratory Tests Test 04/09/17 04/09/17 18:08 19:30 Sodium Level 136 MEQ/L Potassium Level 3.8 MEQ/L Chloride Level 95 MEQ/L Carbon Dioxide Level 35.8 MEQ/L Anion Gap 5 MEQ/L Blood Urea Nitrogen 24 MG/DL Creatinine 1.00 MG/DL Estimat Glomerular Filtration 55 ML/MIN Rate Random Glucose 89 MG/DL Calcium Level 8.4 MG/DL Blood Type B NEGATIVE Antibody Screen NEGATIVE Crossmatch Irradiated/Leukocyte-Reduced RBC Blood Bank Comment Microbiology Microbiology Physical Exam General General Appearance: Well Developed, Well Nourished, No Acute Distress, Anxious , Obese Eyes Eye Exam: Pupils Equal, Pupils Reactive Ears & Nose Ears & Nose Exam: Nasal Mucosa [place] Throat Throat Exam: Oral Mucosa [place] & Moist Neck Neck Exam: Neck Supple, Trachea Midline Pulmonary Resp Exam: Breath Sounds Equal, Crackles, Decreased Bases Cardiology CV Exam: Regular, Normal Sinus Rhythm, Good Perfusion Gastrointestinal/Abdomen GI Exam: Soft, Non-Tender, Bowel Sounds Present, Non-Distended Musculoskeletal MS Exam: Normal Tone Integumentary Skin Exam: Warm, Dry Extremeties Extremities Exam: No Edema, Pedal Pulses Palpable Neurologic Neuro Exam: Alert, Awake, Oriented, Speech Clear, Moving All Extremities, No Focal Deficits Psychiatric Psych Exam: Appropriate Responses VTE Prophylaxis VTE Prophylaxis Device: SCDs Assessment/Plan Problem List: (1) Sepsis (2) Anemia (3) Thrombocytopenia (4) Elevated white blood cell count (5) Pneumonia (6) CKD (chronic kidney disease) stage 3, GFR 30-59 ml/min (7) AML (acute myeloid leukemia) (8) Low blood pressure (9) Tachycardia (10) Hx TIA/stroke w/o resid (11) hx cerebral aneurysm (12) Atrial fibrillation with RVR Assessment/Plan Assessment Acute myeloid leukemia, initially with severe leukocytosis, leukocytosis improved Fatty liver Right pleural effusion, small Sepsis Pneumonia, no change Hypoxemia Anemia Thrombocytopenia Obesity Acute kidney injury, improved Paroxysmal atrial tachycardia/atrial fibrillation, rate is well-controlled at this time 4.3 cm ascending aorta Left ventricular hypertrophy Normal ejection fraction History of TIA, chronic kidney disease, constipation, back pain, penicillin allergy, Management Continue Amiodarone Digoxin Lopressor antibiotics now on hold, infectious disease following Monitor CBC, hematology oncology following Discussed with medical assistant, respiratory therapist to induce sputum to send again for culture Cardiology following Supplemental oxygen Follow renal function Follow electrolytes and replace as needed oncologist and medical assistant following Discussed with patient Physical therapy if tolerated Discussed with nurse 35 minutes Problem Qualifiers (1) Sepsis: Qualified Code: A41.9 - Sepsis, due to unspecified organism (2) Anemia: Qualified Code: D64.9 - Anemia, unspecified type (3) Elevated white blood cell count: Qualified Code: D72.829 - Leukocytosis, unspecified type (4) Pneumonia: Qualified Code: J18.1 - Pneumonia of left lower lobe due to infectious organism (5) AML (acute myeloid leukemia): Qualified Code: C92.00 - Acute myeloid leukemia not having achieved remission (6) Low blood pressure: Qualified Code: I95.9 - Hypotension, unspecified hypotension type Qamar Paniagua MD Apr 10, 2017 17:05
--- NOTE | 2017-04-10 19:15 | HHI.PR ---
Subjective Remarks 66 YO [place] female with Resp insuff, Myeloid leukemia had Chemo mild sob Appetite fair Still On High flow 02 Fi02 decreased 45% Objective Vital Signs Vital Signs Date Time Temp Pulse Resp B/P Pulse Ox O2 Delivery O2 Flow Rate FiO2 04/10/17 18:00 76 04/10/17 16:00 98.0 71 16 109/55 94 04/10/17 16:00 69 04/10/17 15:00 71 24 92 04/10/17 14:00 70 18 96 04/10/17 14:00 72 04/10/17 13:01 69 17 109/55 96 04/10/17 12:00 65 04/10/17 12:00 98.2 69 12 111/55 96 04/10/17 11:00 70 13 108/53 94 04/10/17 10:00 70 04/10/17 10:00 73 23 140/64 94 04/10/17 09:36 98 High Flow Nasal Cannula 20.00 50 04/10/17 09:00 68 32 129/60 94 04/10/17 08:01 98.1 63 12 128/58 96 04/10/17 08:00 61 04/10/17 07:00 97 Effervescent Salts Compounder 20.00 50 04/10/17 07:00 61 12 99/56 97 04/10/17 06:00 68 20 135/61 94 04/10/17 06:00 68 04/10/17 05:00 62 15 117/57 95 04/10/17 04:00 63 14 119/58 96 04/10/17 04:00 63 04/10/17 04:00 98.2 63 18 119/58 96 04/10/17 03:00 61 18 115/57 97 04/10/17 02:00 63 16 122/63 95 04/10/17 02:00 64 04/10/17 01:45 98.1 67 20 126/62 94 04/10/17 01:43 67 23 126/62 94 04/10/17 01:30 98.1 64 14 115/56 96 04/10/17 01:28 64 15 115/56 96 04/10/17 01:00 62 13 109/59 98 04/10/17 00:00 60 11 110/55 97 04/10/17 00:00 60 11 110/55 97 04/10/17 00:00 98.0 60 16 110/55 97 04/10/17 00:00 60 04/09/17 23:00 62 14 105/55 96 04/09/17 22:00 72 04/09/17 22:00 72 16 122/60 95 04/09/17 21:00 77 24 123/58 93 04/09/17 20:25 98 High Flow Nasal Cannula 20.00 50 04/09/17 20:00 69 04/09/17 20:00 96 Effervescent Salts Compounder 20.00 50 04/09/17 20:00 69 14 116/56 96 04/09/17 20:00 97.9 69 20 116/56 96 I/O 04/09/17 04/09/17 04/09/17 04/10/17 04/10/17 04/10/17 07:00 15:00 23:00 07:00 15:00 23:00 Intake Total 289 ml 436 ml 960 ml 1112 ml 400 ml Output Total 350 ml 700 ml 350 ml 750 ml 1000 ml Balance -61 ml -264 ml 610 ml 362 ml -600 ml Intake Oral 120 ml 300 ml 960 ml 360 ml 400 ml IV Total 169 ml 136 ml 0 ml 408 ml Packed Cells 344 ml Output Urine Total 350 ml 700 ml 350 ml 750 ml 1000 ml Stool Total 0 ml # Bowel Movements 0 0 0 Result Diagram: 04/09/17 0604/09/17 1808 Objective Remarks GENERAL: WBWn Female, mild sob SKIN: Warm and dry. HEAD: Normocephalic. EYES: No scleral icterus. No injection or drainage. NECK: Supple, trachea midline. No JVD or lymphadenopathy. CARDIOVASCULAR: Regular rate and rhythm without murmurs, gallops, or rubs. RESPIRATORY: Breath sounds equal bilaterally. No accessory muscle use. GASTROINTESTINAL: Abdomen soft, non-tender, nondistended. MUSCULOSKELETAL: No cyanosis, or edema. BACK: Nontender without obvious deformity. No CVA tenderness. A/P Assessment and Plan Resp Insuff Hypoxia Left basal infilt myeloid Leukemia HTN Partial sz PLAN: High flow 02 Wean 02 to keep sat >90% Aerosol Jorge Mendieta MD Apr 10, 2017 19:15
[2017-04-10] MEDS: lamoTRIgine 25 MG TAB PO SCH (21:39)
[2017-04-11] VITALS (31 sets, daily range): BP systolic 89–142; BP diastolic 50–79; PULSE 56–92; RESP 12–33; TEMP 97.5–99; O2SAT 90–97
[2017-04-11] MEDS: LEVOTHYROXINE SODIUM 100 MCG TAB PO SCH (05:05)
[2017-04-11] MEDS: ACETAMINOPHEN/HYDROcodone 325 MG/10 MG TAB PO PRN ×3 (05:05→22:00)
[2017-04-11 05:41] LABS: AUTOMATED NEUTROPHIL # 2.1 TH/MM3 (1.8-7.7); BASOPHIL % 0.2 % (0.0-2.0); EOSINOPHIL % 0.4 % (0.0-4.0); HEMATOCRIT 24.4 % (35.0-46.0); LYMPHOCYTE # 1.7 TH/MM3 (1.0-4.8); MEAN CELL VOLUME 88.9 FL (80.0-100.0); MEAN CORPUSCULAR HEMOGLOBIN 30.9 PG (27.0-34.0); MEAN CORPUSCULAR HGB CONC 34.8 % (32.0-36.0); MONO % 32.6 % (0.0-8.0); NEUT % 36.8 % (16.0-70.0); PLATELET COUNT 74 TH/MM3 (150-450); RED BLOOD COUNT 2.75 MIL/MM3 (4.00-5.30); RED CELL DISTRIBUTION WIDTH 17.5 % (11.6-17.2); WHITE BLOOD COUNT 5.6 TH/MM3 (4.0-11.0)
[2017-04-11 05:46] LABS: HEMO FLAGS AUTO DIFF
[2017-04-11 06:03] LABS: ANION GAP 3 MEQ/L (5-15); AST (GOT) 49 U/L (15-37); BICARBONATE 36.6 MEQ/L (21.0-32.0); BLOOD UREA NITROGEN 19 MG/DL (7-18); CHLORIDE 95 MEQ/L (98-107); GLOMERULAR FILTRATION RATE 67 ML/MIN (>89); POTASSIUM 3.7 MEQ/L (3.5-5.1); SODIUM (NA) 135 MEQ/L (136-145)
[2017-04-11 06:08] LABS: ALKALINE PHOSPHATASE 118 U/L (45-117); ALT (GPT) 42 U/L (10-53); TOTAL BILIRUBIN ADULT 0.7 MG/DL (0.2-1.0)
[2017-04-11] MEDS: INSULIN ASPART SUPPLEMENTAL SCALE SQ SCH ×3 (07:00→21:00)
--- NOTE | 2017-04-11 08:18 | PD.ONC.PN ---
Subjective Subjective Remarks Patient seen and examined, vital signs, labs, microbiology, medications and overnight events reviewed. Subjectively; the patient reports feeling improved today, she sitting up at the side of the bed and tells me she was out of bed to the bedside chair yesterday. She did receive an enema but did not have a bowel movement, her Lujan catheter remains in place. She remains on high flow oxygen delivery via nasal cannula to maintain O2 sats above 90%. She remains in the intensive care unit for this reason. Objective Data Date Time Temp Pulse Resp B/P Pulse Ox O2 Delivery O2 Flow Rate FiO2 04/11/17 07:00 67 12 136/64 95 04/11/17 06:00 69 29 136/65 93 04/11/17 06:00 69 04/11/17 05:18 67 27 134/63 96 04/11/17 05:00 75 33 93 04/11/17 04:01 60 14 104/55 97 04/11/17 04:00 99.0 60 18 104/55 97 04/11/17 04:00 60 04/11/17 04:00 60 13 97 04/11/17 03:17 96 High Flow Nasal Cannula 15.00 45 04/11/17 03:00 61 23 142/70 95 04/11/17 02:00 61 13 138/66 95 04/11/17 02:00 61 04/11/17 01:00 60 12 116/58 96 04/11/17 00:01 66 32 129/61 95 04/11/17 00:00 66 23 93 04/11/17 00:00 66 04/11/17 00:00 98.1 66 22 129/61 93 04/11/17 00:00 66 23 93 04/10/17 23:01 58 14 103/56 96 04/10/17 23:00 58 13 96 04/10/17 22:00 63 04/10/17 22:00 63 19 131/63 93 04/10/17 22:00 18 04/10/17 21:10 97 High Flow Nasal Cannula 15.00 45 04/10/17 21:00 74 23 144/65 94 04/10/17 20:00 98.4 67 18 130/63 95 04/10/17 20:00 95 15.00 45 04/10/17 20:00 67 04/10/17 20:00 67 16 130/63 95 04/10/17 18:00 76 04/10/17 16:00 98.0 71 16 109/55 94 04/10/17 16:00 69 04/10/17 15:00 71 24 92 04/10/17 14:00 70 18 96 04/10/17 14:00 72 04/10/17 13:01 69 17 109/55 96 04/10/17 12:00 65 04/10/17 12:00 98.2 69 12 111/55 96 04/10/17 11:00 70 13 108/53 94 04/10/17 10:00 70 04/10/17 10:00 73 23 140/64 94 04/10/17 09:36 98 High Flow Nasal Cannula 20.00 50 04/10/17 09:00 68 32 129/60 94 04/11/17 04/11/17 04/11/17 06:59 14:59 22:59 Intake Total 120 ml Output Total 400 ml Balance -280 ml Result Diagram: 04/11/1714 04/11/1714 Laboratory Results Laboratory Tests Test 04/11/17 05:14 White Blood Count 5.6 TH/MM3 Red Blood Count 2.75 MIL/MM3 Hemoglobin 8.5 GM/DL Hematocrit 24.4 % Mean Corpuscular Volume 88.9 FL Mean Corpuscular Hemoglobin 30.9 PG Mean Corpuscular Hemoglobin 34.8 % Concent Red Cell Distribution Width 17.5 % Platelet Count 74 TH/MM3 Mean Platelet Volume 9.1 FL Neutrophils (%) (Auto) 36.8 % Lymphocytes (%) (Auto) 30.0 % Monocytes (%) (Auto) 32.6 % Eosinophils (%) (Auto) 0.4 % Basophils (%) (Auto) 0.2 % Neutrophils # (Auto) 2.1 TH/MM3 Lymphocytes # (Auto) 1.7 TH/MM3 Monocytes # (Auto) 1.8 TH/MM3 Eosinophils # (Auto) 0.0 TH/MM3 Basophils # (Auto) 0.0 TH/MM3 CBC Comment AUTO DIFF Sodium Level 135 MEQ/L Potassium Level 3.7 MEQ/L Chloride Level 95 MEQ/L Carbon Dioxide Level 36.6 MEQ/L Anion Gap 3 MEQ/L Blood Urea Nitrogen 19 MG/DL Creatinine 0.84 MG/DL Estimat Glomerular Filtration 67 ML/MIN Rate Random Glucose 80 MG/DL Calcium Level 8.4 MG/DL Total Bilirubin 0.7 MG/DL Aspartate Amino Transf 49 U/L (AST/SGOT) Alanine Aminotransferase 42 U/L (ALT/SGPT) Alkaline Phosphatase 118 U/L Total Protein 6.1 GM/DL Albumin 2.1 GM/DL Culture Results Microbiology Date/Time Procedure Status Source Growth 04/09/17 20:45 Cancelled Sputum Expectorated Sputum Administered Medications Medications (Trade) Dose Ordered Sig/Tylor Route PRN Reason Start Time Stop Time Status Last Admin Dose Admin Sodium Chloride (NS Flush) 2 ml BID IV FLUSH 03/26/17 09:00 04/10/17 21:00 Acetaminophen (Tylenol) 650 mg Q4H PRN PO TEMP > 100.4 03/25/17 23:15 03/30/17 08:26 Ondansetron HCl (Zofran Inj) 4 mg Q6H PRN IVP NAUSEA OR VOMITING 03/25/17 23:15 04/07/17 20:23 Acetaminophen (Tylenol) 650 mg Q6H PRN PO PAIN SCALE 1 TO 2 03/25/17 23:15 03/26/17 08:14 Famotidine (Pepcid) 10 mg BID PO 03/26/17 09:00 04/10/17 21:00 Temazepam (Restoril) 15 mg HS PRN PO insomnia 03/26/17 00:30 04/05/17 21:11 Allopurinol (Zyloprim) 100 mg BID PO 03/26/17 09:00 04/10/17 21:00 Nystatin (Mycostatin Liq) 5 ml QID SWISH-SWAL 03/26/17 18:00 04/08/17 14:26 Atorvastatin Calcium (Lipitor) 40 mg DAILY PO 03/28/17 09:00 04/10/17 08:14 Lamotrigine (LaMICtal) 50 mg HS PO 03/27/17 21:00 04/10/17 21:39 Levothyroxine Sodium (Synthroid) 100 mcg DAILY@06 PO 03/28/17 06:00 04/11/17 05:05 Acetaminophen/ Hydrocodone Bitart (Frannie 10-325 Mg) 1 tab Q4H PRN PO PAIN 7-10 03/28/17 09:15 04/11/17 05:05 Lorazepam (Ativan) 1 mg Q6H PRN PO ANXIETY 03/28/17 09:15 Hold 04/03/17 06:52 Senna/Docusate Sodium (Ramya-Colace) 1 tab BID PO 03/31/17 21:00 04/10/17 21:00 Magnesium Hydroxide (Milk Of Magnesia Liq) 30 ml Q12H PRN PO SEE LABEL COMMENTS 03/31/17 14:00 04/01/17 08:15 Bisacodyl (Dulcolax Supp) 10 mg DAILY PRN RECTAL SEE LABEL COMMENTS 03/31/17 14:00 04/01/17 08:14 Lactulose (Lactulose Liq) 30 ml DAILY PRN PO SEE LABEL COMMENTS 03/31/17 14:00 04/10/17 10:51 Metoprolol Tartrate (Lopressor Inj) 2.5 mg Q2H PRN IV PUSH tachycardia 04/02/17 20:15 04/04/17 22:42 Potassium Phosphate (K-Phos) 2,000 mg Q4H PRN PO For Phosphorus < 2.5 mg/dL 04/03/17 08:30 04/03/17 14:23 Digoxin (Lanoxin) 0.125 mg DAILY PO 04/04/17 09:00 04/10/17 08:15 Metoprolol Tartrate (Lopressor) 50 mg BID PO 04/04/17 21:00 04/10/17 21:00 Amiodarone HCl (Cordarone) 200 mg DAILY PO 04/04/17 09:00 04/10/17 08:14 Enoxaparin Sodium (Lovenox Inj) 40 mg Q24H SQ 04/05/17 09:00 04/10/17 08:16 Furosemide (Lasix Inj) 20 mg BID IV PUSH 04/08/17 21:00 04/10/17 21:00 Objective Remarks GENERAL PHYSICAL APPEARANCE: Ms. Richard is a middle-aged female, she is Sitting up on the side of the bed bed and is in no acute distress. She is able to speak to me in full sentences. HEENT: Head is atraumatic, normocephalic, conjunctivae are pale. Sclerae are anicteric, EOMI, PERRLA. ORAL EXAM: She has thrush no longer apparent. NECK: No cervical lymphadenopathy. RESPIRATORY: Decreased bibasilar breath sounds left greater than right. Some crackles noted. CARDIOVASCULAR: regular rhythm, regular rate, distant sounding heart sounds. rubs or gallops. She does have a systolic murmur heard over the aortic area. ABDOMEN: Obese belly, soft and nontender, nondistended. No palpable organ enlargement. Tympanic to percussion. LOWER EXTREMITIES: No pretibial edema or calf tenderness. MUSCULOSKELETAL: Adequate muscle mass, tone and strength. Assessment/Plan Problem List: (1) AML (acute myeloid leukemia) Status: Acute Plan: --Bone marrow biopsy indicates findings consistent with AML. FLT-3, CEPBA and NPM-1 analysis pending to help us prognosticate further. -- poor candidate for intensive induction remission therapy with anthracycline/ Cytarabine or HiDAC due to her cardiac and pulmonary issues and borderline performance status. --on allopurinol for tumor lysis prophylaxis --03/30/17: Dacogen day 1 started --03/31/17: transferred to [facility] [place] d/t hypoxia, tachycardia, hypotension --04/01: hold Dacogen. patient remains hypotensive, tachycardic, hypoxic -- 04/03 and 04/04/2017: Day 2 and day 3 Dacogen delivered. --04/06: Finished 1st treatment with Dacogen. (2) Atrial fibrillation with RVR Status: Acute Plan: -- A. fib with RVR associated with transient chest pain: --cardiology following --on digoxin, amiodarone Assessment Ms. Richard is a 66-year-old female with a 3-week history of progressive malaise, fatigue and weakness. She reports soreness of the throat and a dry cough, both of which have been chronic. She presented to the emergency department for further workup and management because her symptoms of fatigue progressed to the point where she had difficulty walking from her bedroom to her restroom. She called EMS last night due to the severity of the symptoms. Blood work performed in the emergency department indicates findings consistent with anemia, thrombocytopenia, her WBCs are grossly abnormal with findings of numerous immature cells and blasts in the peripheral circulation. 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 Peripheral smear was formally reviewed by our hematocrit pathologist who assessed the findings to be consistent with a high- grade myeloid malignancy most consistent with acute myeloid leukemia. Plan 1. AML: completed Dacogen therapy on 04/06/2017. Increasingly cytopenic now, monitor blood counts and transfuse supportively as needed. 2. Afib w/ RVR: in sinus rhythm and rate controlled. on Amiodarone, digoxin 3. Pulmonary infiltrates: on Meropenem empirically. She is afebrile. 4. DVT prophylaxis: continue Lovenox 5. Constipation: Status post Fleet's enema on 04/10/2017, she is also receiving lactulose. Her appetite is minimal. Disposition: Patient to remain the intensive care unit as long as she requires high flow oxygen. Per the nursing staff and respiratory therapy they are trying to wean down her O2 requirements. Problem Qualifiers (1) AML (acute myeloid leukemia): Qualified Code: C92.00 - Acute myeloid leukemia not having achieved remission Roberto Yarbrough MD Apr 11, 2017 08:18
[2017-04-11] MEDS: ENOXAPARIN SODIUM 40 MG/0.4 ML SYRINGE SQ SCH (08:24)
[2017-04-11] MEDS: FUROSEMIDE 20 MG/2 ML VIAL IV PUSH SCH ×2 (08:24→21:00)
[2017-04-11] MEDS: FAMOTIDINE 20 MG TAB PO SCH ×2 (08:25→21:00)
[2017-04-11] MEDS: ATORVASTATIN 40 MG TAB PO SCH (08:25)
[2017-04-11] MEDS: DIGOXIN 0.125 MG TAB PO SCH (08:25)
[2017-04-11] MEDS: DOCUSATE SODIUM 50 MG/SENNA 8.6 MG TAB PO SCH ×2 (08:25→21:00)
[2017-04-11] MEDS: ALLOPURINOL 100 MG TAB PO SCH ×2 (08:25→21:00)
[2017-04-11] MEDS: AMIODARONE 200 MG TAB PO SCH (08:26)
[2017-04-11] MEDS: METOPROLOL TARTRATE 50 MG TAB PO SCH ×2 (08:26→21:00)
[2017-04-11] MEDS: SODIUM CHLORIDE 0.9% FLUSH 10 ML FLUSH IV FLUSH SCH ×2 (08:26→21:00)
[2017-04-11] MEDS: NYSTATIN SUSP 500,000 U/5 ML CUP SWISH-SWAL SCH ×4 (08:26→21:00)
[2017-04-11 09:05] LABS: BANDS 1 % (0-6); BLASTS 9 % (0-0); METAMYELOCYTES 1 % (0-1); MYELOCYTES 2 % (0-0); POLYS (SEG NEUTROPHILS) 29 % (16-70); PROMYELOCYTES 2 % (0-0); WBC DIFF SAMPLE 100
[2017-04-11 09:06] LABS: PLATELET ESTIMATE SMEAR LOW (NORMAL); PLATELET MORPHOLOGY NORMAL (NORMAL); TOXIC VACUOLATION PRESENT (NONE SEEN)
[2017-04-11 09:09] LABS: KERATOCYTES OCC (NORMAL)
[2017-04-11 09:10] LABS: SCAN/DIFF FINAL DIFF MANUAL
--- NOTE | 2017-04-11 15:44 | HHI.PR ---
Subjective Subjective Remarks Patient awake, alert oriented 3 Anxious Complaining of abdominal distention, has not had a bowel movement wants electrodes to be replaced Sinus rhythm on monitor, no A. fib On 15 L high flow oxygen Has been getting out of bed with assistance Review of Systems Constitutional Constitutional Remarks 12 point review of systems completed, negative except as noted above Vitals/Results Intake & Output 04/10/17 04/10/17 04/11/17 14:59 22:59 06:59 Intake Total 400 ml 720 ml 120 ml Output Total 1000 ml 375 ml 400 ml Balance -600 ml 345 ml -280 ml Intake Oral 400 ml 720 ml 120 ml IV Total 0 ml 0 ml Output Urine Total 1000 ml 375 ml 400 ml # Bowel Movements 0 0 Vital Signs Vital Signs Date Time Temp Pulse Resp B/P Pulse Ox O2 Delivery O2 Flow Rate FiO2 04/11/17 13:00 72 17 110/54 92 04/11/17 12:00 97.5 64 25 139/63 94 04/11/17 12:00 74 04/11/17 10:00 92 04/11/17 10:00 64 25 139/63 94 04/11/17 09:30 91 15.00 40 04/11/17 09:06 95 High Flow Nasal Cannula 15.00 45 04/11/17 09:00 67 14 125/59 95 04/11/17 08:00 98.4 82 33 114/79 92 04/11/17 08:00 61 04/11/17 07:00 95 15.00 45 04/11/17 07:00 67 12 136/64 95 04/11/17 06:00 69 29 136/65 93 04/11/17 06:00 69 04/11/17 05:18 67 27 134/63 96 04/11/17 05:00 75 33 93 04/11/17 04:01 60 14 104/55 97 04/11/17 04:00 99.0 60 18 104/55 97 04/11/17 04:00 60 04/11/17 04:00 60 13 97 04/11/17 03:17 96 High Flow Nasal Cannula 15.00 45 04/11/17 03:00 61 23 142/70 95 04/11/17 02:00 61 13 138/66 95 04/11/17 02:00 61 04/11/17 01:00 60 12 116/58 96 04/11/17 00:01 66 32 129/61 95 04/11/17 00:00 66 23 93 04/11/17 00:00 66 04/11/17 00:00 98.1 66 22 129/61 93 04/11/17 00:00 66 23 93 04/10/17 23:01 58 14 103/56 96 04/10/17 23:00 58 13 96 04/10/17 22:00 63 04/10/17 22:00 63 19 131/63 93 04/10/17 22:00 18 04/10/17 21:10 97 High Flow Nasal Cannula 15.00 45 04/10/17 21:00 74 23 144/65 94 04/10/17 20:00 98.4 67 18 130/63 95 04/10/17 20:00 95 15.00 45 04/10/17 20:00 67 04/10/17 20:00 67 16 130/63 95 04/10/17 18:00 76 04/10/17 16:00 98.0 71 16 109/55 94 04/10/17 16:00 69 CBC/BMP: 04/11/17 0514 04/11/17 0514 Lab Results Laboratory Tests Test 04/11/17 05:14 White Blood Count 5.6 TH/MM3 Red Blood Count 2.75 MIL/MM3 Hemoglobin 8.5 GM/DL Hematocrit 24.4 % Mean Corpuscular Volume 88.9 FL Mean Corpuscular Hemoglobin 30.9 PG Mean Corpuscular Hemoglobin 34.8 % Concent Red Cell Distribution Width 17.5 % Platelet Count 74 TH/MM3 Mean Platelet Volume 9.1 FL Neutrophils (%) (Auto) 36.8 % Lymphocytes (%) (Auto) 30.0 % Monocytes (%) (Auto) 32.6 % Eosinophils (%) (Auto) 0.4 % Basophils (%) (Auto) 0.2 % Neutrophils # (Auto) 2.1 TH/MM3 Lymphocytes # (Auto) 1.7 TH/MM3 Monocytes # (Auto) 1.8 TH/MM3 Eosinophils # (Auto) 0.0 TH/MM3 Basophils # (Auto) 0.0 TH/MM3 CBC Comment AUTO DIFF Differential Total Cells 100 Counted Neutrophils % (Manual) 29 % Band Neutrophils % 1 % Lymphocytes % 28 % Monocytes % 28 % Neutrophils # (Manual) 2.0 TH/MM3 Metamyelocytes 1 % Myelocytes 2 % Promyelocytes 2 % Differential Comment FINAL DIFF MANUAL Atypical Lymphocytes % Blastocytes 9 % Toxic Vacuolation PRESENT Platelet Estimate LOW Platelet Morphology Comment NORMAL Keratocytes OCC Sodium Level 135 MEQ/L Potassium Level 3.7 MEQ/L Chloride Level 95 MEQ/L Carbon Dioxide Level 36.6 MEQ/L Anion Gap 3 MEQ/L Blood Urea Nitrogen 19 MG/DL Creatinine 0.84 MG/DL Estimat Glomerular Filtration 67 ML/MIN Rate Random Glucose 80 MG/DL Calcium Level 8.4 MG/DL Total Bilirubin 0.7 MG/DL Aspartate Amino Transf 49 U/L (AST/SGOT) Alanine Aminotransferase 42 U/L (ALT/SGPT) Alkaline Phosphatase 118 U/L Total Protein 6.1 GM/DL Albumin 2.1 GM/DL Physical Exam General General Appearance: Well Developed, Well Nourished, No Acute Distress, Anxious , Obese Eyes Eye Exam: Pupils Equal, Pupils Reactive Ears & Nose Ears & Nose Exam: Nasal Mucosa [place] Throat Throat Exam: Oral Mucosa [place] & Moist Neck Neck Exam: Neck Supple, Trachea Midline Pulmonary Resp Exam: Breath Sounds Equal, Decreased Bases Cardiology CV Exam: Regular, Normal Sinus Rhythm, Good Perfusion Gastrointestinal/Abdomen GI Exam: Soft, Non-Tender, Bowel Sounds Present, Non-Distended Musculoskeletal MS Exam: Normal Tone Integumentary Skin Exam: Warm, Dry Extremeties Extremities Exam: No Edema, Pedal Pulses Palpable Neurologic Neuro Exam: Alert, Awake, Oriented, Speech Clear, Moving All Extremities, No Focal Deficits Psychiatric Psych Exam: Appropriate Responses VTE Prophylaxis VTE Prophylaxis Device: SCDs VTE Prophylaxis Meds: Lovenox Assessment/Plan Problem List: (1) Sepsis (2) Anemia (3) Thrombocytopenia (4) Elevated white blood cell count (5) Pneumonia (6) CKD (chronic kidney disease) stage 3, GFR 30-59 ml/min (7) AML (acute myeloid leukemia) (8) Low blood pressure (9) Tachycardia (10) Hx TIA/stroke w/o resid (11) hx cerebral aneurysm (12) Atrial fibrillation with RVR Assessment/Plan Assessment Acute myeloid leukemia, initially with severe leukocytosis, leukocytosis improved Fatty liver Right pleural effusion, small Sepsis Pneumonia, no change Hypoxemia Anemia Thrombocytopenia Obesity Acute kidney injury, improved Paroxysmal atrial tachycardia/atrial fibrillation, rate is well-controlled at this time 4.3 cm ascending aorta Left ventricular hypertrophy Normal ejection fraction History of TIA, chronic kidney disease, constipation, back pain, penicillin allergy, Management Improving slowly Remains on high flow oxygen Appreciate pulmonology input Continue with DuoNeb's as needed Antibiotics on hold, ID following Appreciate oncology input Has completed Dacogen 04/06 Remains anemic and thrombocytopenic Replace electrolytes as needed Continue bowel regimen Appreciate palliative care input, patient is alternative code Lovenox for DVT prophylaxis Labs in the morning Condition guarded Keep in ICU for now as she continues to be on high flow oxygen Discussed with RN Discussed with patient Discussed with Dr. Paniagua This patient was seen by myself and Dr. Paniagua, this note is written on his behalf Problem Qualifiers (1) Sepsis: Qualified Code: A41.9 - Sepsis, due to unspecified organism (2) Anemia: Qualified Code: D64.9 - Anemia, unspecified type (3) Elevated white blood cell count: Qualified Code: D72.829 - Leukocytosis, unspecified type (4) Pneumonia: Qualified Code: J18.1 - Pneumonia of left lower lobe due to infectious organism (5) AML (acute myeloid leukemia): Qualified Code: C92.00 - Acute myeloid leukemia not having achieved remission (6) Low blood pressure: Qualified Code: I95.9 - Hypotension, unspecified hypotension type Tina Blair Apr 11, 2017 15:44
--- NOTE | 2017-04-11 18:55 | HHI.PR ---
Subjective Remarks 66 YO [place] female with Resp insuff, Myeloid leukemia had Chemo mild sob Appetite fair Still On High flow 02 Fi02 decreased 40% Tired and sleeping Was out of bed in chair Objective Vital Signs Vital Signs Date Time Temp Pulse Resp B/P Pulse Ox O2 Delivery O2 Flow Rate FiO2 04/11/17 13:00 72 17 110/54 92 04/11/17 12:00 97.5 64 25 139/63 94 04/11/17 12:00 74 04/11/17 10:00 92 04/11/17 10:00 64 25 139/63 94 04/11/17 09:30 91 15.00 40 04/11/17 09:06 95 High Flow Nasal Cannula 15.00 45 04/11/17 09:00 67 14 125/59 95 04/11/17 08:00 98.4 82 33 114/79 92 04/11/17 08:00 61 04/11/17 07:00 95 15.00 45 04/11/17 07:00 67 12 136/64 95 04/11/17 06:00 69 29 136/65 93 04/11/17 06:00 69 04/11/17 05:18 67 27 134/63 96 04/11/17 05:00 75 33 93 04/11/17 04:01 60 14 104/55 97 04/11/17 04:00 99.0 60 18 104/55 97 04/11/17 04:00 60 04/11/17 04:00 60 13 97 04/11/17 03:17 96 High Flow Nasal Cannula 15.00 45 04/11/17 03:00 61 23 142/70 95 04/11/17 02:00 61 13 138/66 95 04/11/17 02:00 61 04/11/17 01:00 60 12 116/58 96 04/11/17 00:01 66 32 129/61 95 04/11/17 00:00 66 23 93 04/11/17 00:00 66 04/11/17 00:00 98.1 66 22 129/61 93 04/11/17 00:00 66 23 93 04/10/17 23:01 58 14 103/56 96 04/10/17 23:00 58 13 96 04/10/17 22:00 63 04/10/17 22:00 63 19 131/63 93 04/10/17 22:00 18 8/15/17 21:10 97 High Flow Nasal Cannula 15.00 45 04/10/17 21:00 74 23 144/65 94 04/10/17 20:00 98.4 67 18 130/63 95 04/10/17 20:00 95 15.00 45 04/10/17 20:00 67 04/10/17 20:00 67 16 130/63 95 I/O 04/10/17 04/10/17 04/10/17 04/11/17 04/11/17 04/11/17 07:00 15:00 23:00 07:00 15:00 23:00 Intake Total 1112 ml 400 ml 720 ml 120 ml Output Total 750 ml 1000 ml 375 ml 400 ml Balance 362 ml -600 ml 345 ml -280 ml Intake Oral 360 ml 400 ml 720 ml 120 ml IV Total 408 ml 0 ml 0 ml Packed Cells 344 ml Output Urine Total 750 ml 1000 ml 375 ml 400 ml # Bowel Movements 0 0 0 Result Diagram: 04/11/1751304/11/17513 Objective Remarks GENERAL: WBWn Female, mild sob SKIN: Warm and dry. HEAD: Normocephalic. EYES: No scleral icterus. No injection or drainage. NECK: Supple, trachea midline. No JVD or lymphadenopathy. CARDIOVASCULAR: Regular rate and rhythm without murmurs, gallops, or rubs. RESPIRATORY: Breath sounds equal bilaterally. No accessory muscle use. GASTROINTESTINAL: Abdomen soft, non-tender, nondistended. MUSCULOSKELETAL: No cyanosis, or edema. BACK: Nontender without obvious deformity. No CVA tenderness. A/P Assessment and Plan Resp Insuff Hypoxia Left basal infilt myeloid Leukemia HTN Partial sz PLAN: High flow 02 Wean 02 to keep sat >90% Aerosol nebs Slowly improving hypoxia. Jorge Thibodeaux MD Apr 11, 2017 18:55
[2017-04-11] MEDS: lamoTRIgine 25 MG TAB PO SCH (21:00)
[2017-04-12] VITALS (30 sets, daily range): BP systolic 105–162; BP diastolic 55–71; PULSE 57–73; RESP 12–35; TEMP 97.9–98.9; O2SAT 92–98
[2017-04-12] MEDS: ACETAMINOPHEN/HYDROcodone 325 MG/10 MG TAB PO PRN ×5 (02:19→21:16)
[2017-04-12 06:29] LABS: AUTOMATED NEUTROPHIL # 1.5 TH/MM3 (1.8-7.7); BASOPHIL # 0.1 TH/MM3 (0-0.2); BASOPHIL % 1.3 % (0.0-2.0); EOSINOPHIL % 0.4 % (0.0-4.0); HEMATOCRIT 25.4 % (35.0-46.0); LYMPH % 36.1 % (9.0-44.0); LYMPHOCYTE # 1.7 TH/MM3 (1.0-4.8); MEAN CELL VOLUME 90.8 FL (80.0-100.0); MEAN CORPUSCULAR HEMOGLOBIN 30.4 PG (27.0-34.0); MEAN CORPUSCULAR HGB CONC 33.5 % (32.0-36.0); MONO % 29.7 % (0.0-8.0); NEUT % 32.5 % (16.0-70.0); PLATELET COUNT 78 TH/MM3 (150-450); RED CELL DISTRIBUTION WIDTH 17.7 % (11.6-17.2); WHITE BLOOD COUNT 4.7 TH/MM3 (4.0-11.0)
[2017-04-12] MEDS: LEVOTHYROXINE SODIUM 100 MCG TAB PO SCH (06:32)
[2017-04-12] MEDS: INSULIN ASPART SUPPLEMENTAL SCALE SQ SCH ×3 (06:34→16:00)
[2017-04-12 06:38] LABS: HEMO FLAGS AUTO DIFF
[2017-04-12 07:43] LABS: BANDS 3 % (0-6); BLASTS 10 % (0-0); CORRECTED NUCLEATED RBC 1 /100 WBC (0-0); EOSINOPHILS 1 % (0-4); MYELOCYTES 3 % (0-0); NEUTROPHIL # MANUAL DIFF 1.5 TH/MM3 (1.8-7.7); POLYS (SEG NEUTROPHILS) 25 % (16-70); PROMYELOCYTES 1 % (0-0); WBC DIFF SAMPLE 100
[2017-04-12 07:44] LABS: PLATELET ESTIMATE SMEAR LOW (NORMAL); PLATELET MORPHOLOGY NORMAL (NORMAL); SCAN/DIFF FINAL DIFF MANUAL
[2017-04-12] MEDS: NYSTATIN SUSP 500,000 U/5 ML CUP SWISH-SWAL SCH ×4 (09:00→21:13)
[2017-04-12] MEDS: METOPROLOL TARTRATE 50 MG TAB PO SCH ×2 (09:57→21:00)
[2017-04-12] MEDS: AMIODARONE 200 MG TAB PO SCH (09:57)
[2017-04-12] MEDS: ALLOPURINOL 100 MG TAB PO SCH ×2 (09:57→21:13)
[2017-04-12] MEDS: DIGOXIN 0.125 MG TAB PO SCH (09:58)
[2017-04-12] MEDS: FAMOTIDINE 20 MG TAB PO SCH ×2 (09:59→21:14)
[2017-04-12] MEDS: FUROSEMIDE 20 MG/2 ML VIAL IV PUSH SCH ×2 (09:59→21:13)
[2017-04-12] MEDS: DOCUSATE SODIUM 50 MG/SENNA 8.6 MG TAB PO SCH ×2 (09:59→21:14)
[2017-04-12] MEDS: ATORVASTATIN 40 MG TAB PO SCH (10:00)
[2017-04-12] MEDS: SODIUM CHLORIDE 0.9% FLUSH 10 ML FLUSH IV FLUSH SCH ×2 (10:00→21:12)
[2017-04-12] MEDS: ENOXAPARIN SODIUM 40 MG/0.4 ML SYRINGE SQ SCH (16:15)
--- NOTE | 2017-04-12 17:08 | HHI.PR ---
Subjective Subjective Remarks Resting in the bed Alert oriented talkative No acute shortness of breath, wearing high flow O2 40% (Constance Ramon) Review of Systems Constitutional Constitutional: Weakness Constitutional Remarks 10 point ROS done positives noted (Constance Ramon) Pulmonary Respiratory: Shortness of Breath (exertional, sometimes has low volumes) ( Constance Ramon) Musculoskeletal MS: Weakness (Constance Ramon) Psychiatric Psychiatric: Normal Mood, Anxiety (mild) (Constnace Ramon) Vitals/Results Intake & Output 04/11/17 04/11/17 04/12/17 14:59 22:59 06:59 Intake Total 600 ml Output Total 850 ml 155 ml 425 ml Balance -250 ml -155 ml -425 ml Intake Oral 600 ml Output Urine Total 850 ml 155 ml 425 ml # Bowel Movements 0 0 Vital Signs Vital Signs Date Time Temp Pulse Resp B/P Pulse Ox O2 Delivery O2 Flow Rate FiO2 04/12/17 08:20 94 High Flow Nasal Cannula 15.00 40 04/12/17 07:36 12 04/12/17 06:00 65 15 96 04/12/17 06:00 65 04/12/17 05:00 63 12 97 04/12/17 04:00 98.2 62 18 97 04/12/17 04:00 62 04/12/17 03:00 63 17 95 04/12/17 02:00 61 15 113/55 95 04/12/17 02:00 61 04/12/17 01:01 62 31 149/66 95 04/12/17 01:00 62 33 95 04/12/17 00:01 57 12 109/59 95 04/12/17 00:00 57 04/12/17 00:00 98.9 57 14 95 04/11/17 23:00 56 14 89/50 95 04/11/17 23:00 93 10.00 40 04/11/17 22:00 69 04/11/17 22:00 69 18 118/56 94 04/11/17 21:00 68 15 134/65 96 04/11/17 20:34 72 23 135/60 94 04/11/17 20:00 71 04/11/17 20:00 99.0 71 25 95 04/11/17 19:08 94 High Flow Nasal Cannula 15.00 45 04/11/17 19:00 68 13 114/58 94 04/11/17 19:00 96 15.00 40 04/11/17 18:00 66 04/11/17 18:00 73 21 103/57 95 04/11/17 17:00 74 18 120/59 91 (Constance Ramon) CBC/BMP: 04/12/17 0544 04/11/17 0514 Lab Results Laboratory Tests Test 04/12/17 05:44 White Blood Count 4.7 TH/MM3 Red Blood Count 2.80 MIL/MM3 Hemoglobin 8.5 GM/DL Hematocrit 25.4 % Mean Corpuscular Volume 90.8 FL Mean Corpuscular Hemoglobin 30.4 PG Mean Corpuscular Hemoglobin 33.5 % Concent Red Cell Distribution Width 17.7 % Platelet Count 78 TH/MM3 Mean Platelet Volume 9.5 FL Neutrophils (%) (Auto) 32.5 % Lymphocytes (%) (Auto) 36.1 % Monocytes (%) (Auto) 29.7 % Eosinophils (%) (Auto) 0.4 % Basophils (%) (Auto) 1.3 % Neutrophils # (Auto) 1.5 TH/MM3 Lymphocytes # (Auto) 1.7 TH/MM3 Monocytes # (Auto) 1.4 TH/MM3 Eosinophils # (Auto) 0.0 TH/MM3 Basophils # (Auto) 0.1 TH/MM3 CBC Comment AUTO DIFF Differential Total Cells 100 Counted Neutrophils % (Manual) 25 % Band Neutrophils % 3 % Lymphocytes % 32 % Monocytes % 25 % Eosinophils % 1 % Neutrophils # (Manual) 1.5 TH/MM3 Myelocytes 3 % Promyelocytes 1 % Nucleated Red Blood Cells 1 /100 WBC Differential Comment FINAL DIFF MANUAL Blastocytes 10 % Platelet Estimate LOW Platelet Morphology Comment NORMAL Imaging Remarks Last Impressions Abdomen X-Ray 04/09/17 0000 Signed Impressions: Service Date/Time: Sunday, April 09, 2017 14:49 - CONCLUSION: Limited study. No gross pneumoperitoneum. Yared Lamar Jr., MD Chest X-Ray 04/08/17 0600 Signed Impressions: Service Date/Time: Saturday, April 08, 2017 03:47 - CONCLUSION: 1. Minimal bibasilar densities with scarring left upper lobe. 2. Small left pleural effusion. Beau Winter MD Chest CT 04/07/17 0000 Signed Impressions: Service Date/Time: Friday, April 07, 2017 12:28 - CONCLUSION: 1. Dense consolidation in the left lower lobe with air bronchograms most characteristic of pneumonia. 2. Small bilateral pleural effusions. 3. The mild cardiomegaly with small amount of pericardial fluid. Balaji Solorio MD Gall Bladder Ultrasound 04/06/17 0000 Signed Impressions: Service Date/Time: Thursday, April 06, 2017 17:45 - CONCLUSION: 1. Fatty liver. Right pleural effusion. No gallstones or biliary ductal dilatation. Rivas Tejeda MD Bone Biopsy CT 03/26/17 0000 Signed Impressions: Service Date/Time: Sunday, March 26, 2017 14:48 - CONCLUSION: 1. Uncomplicated CT guided bone marrow aspirate. 2. Uncomplicated CT guided bone marrow biopsy. Raoul Jeffries MD Lumbar Spine CT [id number]/25/[id number] Signed Impressions: Service Date/Time: Sunday, March 26, 2017 01:12 - CONCLUSION: 1. Degenerative disc changes greatest at the L4-5 and L5-S1 levels with broad-based disc osteophyte complexes. There is lateral recess stenosis at the L5-S1 level. 2. Mild retrolisthesis of L5 on S1 with degenerative disc change and broad-based disc osteophyte complex. 3. Narrowing of the neuroforamina bilaterally at the L4-5 and L5-S1 levels. 4. Degenerative disc change. Balaji Solorio MD CT Angiography [id number]/[id number] Signed Impressions: Service Date/Time: Sunday, March 26, 2017 01:09 - CONCLUSION: 1. Mild consolidation along the left fissure and lower lobe. This could indicate early pneumonia. 2. No evidence of pulmonary embolism. Balaji Solorio MD (Constance Ramon) Physical Exam General General Appearance: Well Developed, Well Nourished, No Acute Distress, Anxious , Obese (Constance RamonP) Eyes Eye Exam: Pupils Equal, Pupils Reactive (Constance RamonP) Ears & Nose Ears & Nose Exam: Nasal Mucosa Mcnab (pale) (Constance Ramon) Throat Throat Exam: Oral Mucosa Mcnab & Moist (pale) (Constance Ramon M. [employer] OFFICER) Neck Neck Exam: Neck Supple, Trachea Midline (Yenny,Susan M. [employer] OFFICER) Pulmonary Resp Exam: Breath Sounds Equal, Decreased Bases, Diminished Breath Sounds ( especially in the left base) Resp Remarks Remains on high flow O2 40%, 10 L ([place],Susan M. [employer] OFFICER) Cardiology CV Exam: Regular, Normal Sinus Rhythm, Good Perfusion (Constance Ramon. [employer] OFFICER) Gastrointestinal/Abdomen GI Exam: Soft, Non-Tender, Bowel Sounds Present, Non-Distended ([place]Con[place] rivera M. [employer]ISON OFFICER) Hematologic/Lymphatic Heme Remarks Diagnosis and treatment AML (Constance Ramon M. [employer] OFFICER) Musculoskeletal MS Exam: Normal Tone (Constance Ramon. [employer] OFF[employer]ER) Integumentary Skin Exam: Warm, Dry (Constance Ramon. [employer] OFF[employer]ER) Extremeties Extremities Exam: No Edema, Pedal Pulses Palpable (Constance Ramon M. [employer] OFF[employer]ER) Neurologic Neuro Exam: Alert, Awake, Oriented, Speech Clear, Moving All Extremities, No Focal Deficits (Constance Ramon M. [employer] OFFICER) Psychiatric Psych Exam: Appropriate Responses (Constance Ramon M. [employer] OFFICER) VTE Prophylaxis VTE Prophylaxis Device: SCDs VTE Prophylaxis Meds: Lovenox (Constance Ramon. [employer] OFF[employer]ER) Assessment/Plan Problem List: (1) Sepsis (2) Anemia (3) Thrombocytopenia (4) Elevated white blood cell count (5) Pneumonia (6) CKD (chronic kidney disease) stage 3, GFR 30-59 ml/min (7) AML (acute myeloid leukemia) (8) Low blood pressure (9) Tachycardia (10) Hx TIA/stroke w/o resid (11) hx cerebral aneurysm (12) Atrial fibrillation with RVR Assessment/Plan Vital signs reviewed no fever, other trends normal Labs reviewed, anemia stable at 8.5 last 48 hours, leukopenia and decreasing 4.7 , continue to monitor Thrombocytopenia 78, stay and in that range for the past few days Assessment Acute myeloid leukemia, initially with severe leukocytosis, now having some leukopenia Fatty liver Right pleural effusion, small Sepsis Pneumonia, no change Hypoxemia Anemia Thrombocytopenia Obesity Acute kidney injury, improved Paroxysmal atrial tachycardia/atrial fibrillation,CVR noted, with medical management Left ventricular hypertrophy with normal EF History of TIA, chronic kidney disease, constipation, back pain, penicillin allergy, Degenerative disc disease Pneumonia left lower lobe Monitor bowel regimen, patient still has Lujan catheter, O2 sat stable, will work towards getting Lujan catheter out tomorrow. Plan pneumonia, left lower lobe, gradual small improvements noted, still has small left lobe effusion Slow but gradual improvement noted Remains on high flow oxygen, 40%, and encouraged to turn cough and deep breathe Appreciate pulmonology input and consultation, continue to wean O2 to maintain O2 sats greater than 90. Aerosol treatments Antibiotics on hold, ID following Appreciate oncology input First treatment finished on 81 1 Dacogen Remains anemic, stable at 8.5 and thrombocytopenic which appears to be stable for now, now becoming leukopenic Replace electrolytes as needed Appreciate palliative care input, patient is alternative code Degenerative disc disease, encourage patient to move about in bed and to be up out of bed with physical therapy Mild pain management if warranted Lovenox for DVT prophylaxis, but continue to monitor platelet count Check CBC in the morning Alternative CODE STATUS noted Keep in ICU for now as she continues to be on high flow oxygen Discussed with RN Discussed with patient and her visitor Discussed with Dr. Paniagua, seen on his behalf (Constance Ramon) Assessment/Plan seen, examined by myself, Dr Paniagua, today Discussed with patient and her family, also discussed with nurse Now done to 10 L of oxygen at 40% Will need rehabilitation Discontinue sliding scale Discussed with mid level provider The exam, history, and the medical decision-making described in the above note were completed with the assistance of the mid-level provider. I reviewed the findings presented. I attest that I had a [id number] encounter with the patient on the same day, and personally performed and documented my assessment and findings in the medical record. Discussed Condition with: Patient, Relative (Qamar Paniagua MD) Problem Qualifiers (1) Sepsis: Qualified Code: A41.9 - Sepsis, due to unspecified organism (2) Anemia: Qualified Code: D64.9 - Anemia, unspecified type (3) Elevated white blood cell count: Qualified Code: D72.829 - Leukocytosis, unspecified type (4) Pneumonia: Qualified Code: J18.1 - Pneumonia of left lower lobe due to infectious organism (5) AML (acute myeloid leukemia): Qualified Code: C92.00 - Acute myeloid leukemia not having achieved remission (6) Low blood pressure: Qualified Code: I95.9 - Hypotension, unspecified hypotension type Constance Ramon Apr 12, 2017 17:08 Qamar Paniagua MD Apr 12, 2017 18:32
--- NOTE | 2017-04-12 18:35 | HHI.PR ---
Subjective Remarks 66 YO Maldivian female with Resp insuff, Myeloid leukemia had Chemo mild sob Appetite fair Still On High flow 02 Fi02 decreased 40% Sister at BS from [place]. Objective Vital Signs Vital Signs Date Time Temp Pulse Resp B/P Pulse Ox O2 Delivery O2 Flow Rate FiO2 04/12/17 08:20 94 High Flow Nasal Cannula 15.00 40 04/12/17 07:36 12 04/12/17 06:00 65 15 96 04/12/17 06:00 65 04/12/17 05:00 63 12 97 04/12/17 04:00 98.2 62 18 97 04/12/17 04:00 62 04/12/17 03:00 63 17 95 04/12/17 02:00 61 15 113/55 95 04/12/17 02:00 61 04/12/17 01:01 62 31 149/66 95 04/12/17 01:00 62 33 95 04/12/17 00:01 57 12 109/59 95 04/12/17 00:00 57 04/12/17 00:00 98.9 57 14 95 04/11/17 23:00 56 14 89/50 95 04/11/17 23:00 93 10.00 40 04/11/17 22:00 69 04/11/17 22:00 69 18 118/56 94 04/11/17 21:00 68 15 134/65 96 04/11/17 20:34 72 23 135/60 94 04/11/17 20:00 71 04/11/17 20:00 99.0 71 25 95 04/11/17 19:08 94 High Flow Nasal Cannula 15.00 45 04/11/17 19:00 68 13 114/58 94 04/11/17 19:00 96 15.00 40 I/O 04/11/17 04/11/17 04/11/17 04/12/17 04/12/17 04/12/17 07:00 15:00 23:00 07:00 15:00 23:00 Intake Total 120 ml 600 ml Output Total 400 ml 850 ml 155 ml 425 ml Balance -280 ml -250 ml -155 ml -425 ml Intake Oral 120 ml 600 ml IV Total 0 ml Output Urine Total 400 ml 850 ml 155 ml 425 ml # Bowel Movements 0 0 0 Result Diagram: 04/12/17 0544 04/11/17 0514 Objective Remarks GENERAL: WBWn Female, mild sob SKIN: Warm and dry. HEAD: Normocephalic. EYES: No scleral icterus. No injection or drainage. NECK: Supple, trachea midline. No JVD or lymphadenopathy. CARDIOVASCULAR: Regular rate and rhythm without murmurs, gallops, or rubs. RESPIRATORY: Breath sounds equal bilaterally. No accessory muscle use. GASTROINTESTINAL: Abdomen soft, non-tender, nondistended. MUSCULOSKELETAL: No cyanosis, or edema. BACK: Nontender without obvious deformity. No CVA tenderness. A/P Assessment and Plan Resp Insuff Hypoxia Left basal infilt myeloid Leukemia HTN Partial sz PLAN: High flow 02 Wean 02 to keep sat >90% Aerosol Jorge Mendieta MD Apr 12, 2017 18:35
--- NOTE | 2017-04-12 20:26 | PD.ONC.PN ---
Subjective Subjective Remarks Patient seen and examined, vitals, labs, medications reviewed. Subjectively, she reports difficulty breathing with minimal exertion. She was out of bed earlier to day and sat in a chair. Still has her thomson cath in. Remains on high flow oxygen supplementation. Is afebrile. Her sister is visiting from [place]. Objective Data Date Time Temp Pulse Resp B/P Pulse Ox O2 Delivery O2 Flow Rate FiO2 04/12/17 19:00 64 22 96 04/12/17 18:01 62 18 144/67 95 04/12/17 18:00 62 19 94 04/12/17 17:00 62 15 114/56 92 04/12/17 16:10 98.7 65 19 110/57 94 04/12/17 15:00 64 27 92 04/12/17 14:00 64 24 96 04/12/17 13:00 67 29 95 04/12/17 12:00 63 14 96 04/12/17 11:03 73 35 106/63 96 04/12/17 11:00 71 24 98 04/12/17 10:01 69 14 162/71 94 04/12/17 10:00 68 22 93 04/12/17 09:01 62 13 105/55 94 04/12/17 09:00 62 13 94 04/12/17 08:20 94 High Flow Nasal Cannula 15.00 40 04/12/17 08:00 97.9 65 14 141/68 95 04/12/17 07:36 12 04/12/17 07:00 64 13 131/61 94 04/12/17 07:00 Meat Specialist 10.00 40 04/12/17 06:00 65 15 96 04/12/17 06:00 65 04/12/17 05:00 63 12 97 04/12/17 04:00 98.2 62 18 97 04/12/17 04:00 62 04/12/17 03:00 63 17 95 04/12/17 02:00 61 15 113/55 95 04/12/17 02:00 61 04/12/17 01:01 62 31 149/66 95 04/12/17 01:00 62 33 95 04/12/17 00:01 57 12 109/59 95 04/12/17 00:00 57 04/12/17 00:00 98.9 57 14 95 04/11/17 23:00 56 14 89/50 95 04/11/17 23:00 93 10.00 40 04/11/17 22:00 69 04/11/17 22:00 69 18 118/56 94 04/11/17 21:00 68 15 134/65 96 04/11/17 20:34 72 23 135/60 94 04/12/17 04/12/17 04/12/17 07:00 15:00 23:00 Intake Total 720 ml Output Total 425 ml Balance -425 ml 720 ml Result Diagram: 04/12/17 0544 04/11/17 0514 Laboratory Results Laboratory Tests Test 04/12/17 05:44 White Blood Count 4.7 TH/MM3 Red Blood Count 2.80 MIL/MM3 Hemoglobin 8.5 GM/DL Hematocrit 25.4 % Mean Corpuscular Volume 90.8 FL Mean Corpuscular Hemoglobin 30.4 PG Mean Corpuscular Hemoglobin 33.5 % Concent Red Cell Distribution Width 17.7 % Platelet Count 78 TH/MM3 Mean Platelet Volume 9.5 FL Neutrophils (%) (Auto) 32.5 % Lymphocytes (%) (Auto) 36.1 % Monocytes (%) (Auto) 29.7 % Eosinophils (%) (Auto) 0.4 % Basophils (%) (Auto) 1.3 % Neutrophils # (Auto) 1.5 TH/MM3 Lymphocytes # (Auto) 1.7 TH/MM3 Monocytes # (Auto) 1.4 TH/MM3 Eosinophils # (Auto) 0.0 TH/MM3 Basophils # (Auto) 0.1 TH/MM3 CBC Comment AUTO DIFF Differential Total Cells 100 Counted Neutrophils % (Manual) 25 % Band Neutrophils % 3 % Lymphocytes % 32 % Monocytes % 25 % Eosinophils % 1 % Neutrophils # (Manual) 1.5 TH/MM3 Myelocytes 3 % Promyelocytes 1 % Nucleated Red Blood Cells 1 /100 WBC Differential Comment FINAL DIFF MANUAL Blastocytes 10 % Platelet Estimate LOW Platelet Morphology Comment NORMAL Culture Results Microbiology Date/Time Procedure Status Source Growth 04/09/17 20:45 Cancelled Sputum Expectorated Sputum Administered Medications Medications (Trade) Dose Ordered Sig/Tylor Route PRN Reason Start Time Stop Time Status Last Admin Dose Admin Sodium Chloride (NS Flush) 2 ml BID IV FLUSH 03/26/17 09:00 04/12/17 10:00 Acetaminophen (Tylenol) 650 mg Q4H PRN PO TEMP > 100.4 7/30/17 23:15 03/30/17 08:26 Ondansetron HCl (Zofran Inj) 4 mg Q6H PRN IVP NAUSEA OR VOMITING 03/25/17 23:15 04/07/17 20:23 Acetaminophen (Tylenol) 650 mg Q6H PRN PO PAIN SCALE 1 TO 2 03/25/17 23:15 03/26/17 08:14 Temazepam (Restoril) 15 mg HS PRN PO insomnia 03/26/17 00:30 04/05/17 21:11 Allopurinol (Zyloprim) 100 mg BID PO 03/26/17 09:00 04/12/17 09:57 Nystatin (Mycostatin Liq) 5 ml QID SWISH-SWAL 03/26/17 18:00 04/08/17 14:26 Atorvastatin Calcium (Lipitor) 40 mg DAILY PO 03/28/17 09:00 04/12/17 10:00 Lamotrigine (LaMICtal) 50 mg HS PO 03/27/17 21:00 04/11/17 21:00 Levothyroxine Sodium (Synthroid) 100 mcg DAILY@06 PO 03/28/17 06:00 04/12/17 06:32 Acetaminophen/ Hydrocodone Bitart (Romayor 10-325 Mg) 1 tab Q4H PRN PO PAIN 7-10 03/28/17 09:15 04/12/17 16:15 Lorazepam (Ativan) 1 mg Q6H PRN PO ANXIETY 03/28/17 09:15 Hold 04/03/17 06:52 Magnesium Hydroxide (Milk Of Magnesia Liq) 30 ml Q12H PRN PO SEE LABEL COMMENTS 03/31/17 14:00 04/01/17 08:15 Bisacodyl (Dulcolax Supp) 10 mg DAILY PRN RECTAL SEE LABEL COMMENTS 03/31/17 14:00 04/01/17 08:14 Lactulose (Lactulose Liq) 30 ml DAILY PRN PO SEE LABEL COMMENTS 03/31/17 14:00 04/10/17 10:51 Metoprolol Tartrate (Lopressor Inj) 2.5 mg Q2H PRN IV PUSH tachycardia 04/02/17 20:15 04/04/17 22:42 Potassium Phosphate (K-Phos) 2,000 mg Q4H PRN PO For Phosphorus < 2.5 mg/dL 04/03/17 08:30 04/03/17 14:23 Digoxin (Lanoxin) 0.125 mg DAILY PO 04/04/17 09:00 04/12/17 09:58 Metoprolol Tartrate (Lopressor) 50 mg BID PO 04/04/17 21:00 04/12/17 09:57 Amiodarone HCl (Cordarone) 200 mg DAILY PO 04/04/17 09:00 04/12/17 09:57 Enoxaparin Sodium (Lovenox Inj) 40 mg Q24H SQ 04/05/17 09:00 04/12/17 16:15 Furosemide (Lasix Inj) 20 mg BID IV PUSH 04/08/17 21:00 04/12/17 09:59 Senna/Docusate Sodium (Ramya-Colace) 2 tab BID PO 04/11/17 21:00 04/12/17 09:59 Objective Remarks GENERAL PHYSICAL APPEARANCE: Ms. Richard is a middle-aged female, she is Sitting up on the side of the bed bed and is in no acute distress. She is able to speak to me in full sentences. HEENT: Head is atraumatic, normocephalic, conjunctivae are pale. Sclerae are anicteric, EOMI, PERRLA. ORAL EXAM: She has thrush no longer apparent. NECK: No cervical lymphadenopathy. RESPIRATORY: Decreased bibasilar breath sounds left greater than right. Some crackles noted. CARDIOVASCULAR: regular rhythm, regular rate, distant sounding heart sounds. rubs or gallops. She does have a systolic murmur heard over the aortic area. ABDOMEN: Obese belly, soft and nontender, nondistended. No palpable organ enlargement. Tympanic to percussion. LOWER EXTREMITIES: No pretibial edema or calf tenderness. MUSCULOSKELETAL: Adequate muscle mass, tone and strength. Assessment/Plan Problem List: (1) AML (acute myeloid leukemia) Status: Acute Plan: --Bone marrow biopsy indicates findings consistent with AML. FLT-3, CEPBA and NPM-1 analysis pending to help us prognosticate further. -- poor candidate for intensive induction remission therapy with anthracycline/ Cytarabine or HiDAC due to her cardiac and pulmonary issues and borderline performance status. --on allopurinol for tumor lysis prophylaxis --8/4/17: Dacogen day 1 started --03/31/17: transferred to [facility] [place] d/t hypoxia, tachycardia, hypotension --04/01: hold Dacogen. patient remains hypotensive, tachycardic, hypoxic -- 04/03 and 04/04/2017: Day 2 and day 3 Dacogen delivered. --04/06: Finished 1st treatment with Dacogen. (2) Atrial fibrillation with RVR Status: Acute Plan: -- A. fib with RVR associated with transient chest pain: --cardiology following --on digoxin, amiodarone Assessment Ms. Richard is a 66-year-old female with a 3-week history of progressive malaise, fatigue and weakness. She reports soreness of the throat and a dry cough, both of which have been chronic. She presented to the emergency department for further workup and management because her symptoms of fatigue progressed to the point where she had difficulty walking from her bedroom to her restroom. She called EMS last night due to the severity of the symptoms. Blood work performed in the emergency department indicates findings consistent with anemia, thrombocytopenia, her WBCs are grossly abnormal with findings of numerous immature cells and blasts in the peripheral circulation. 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 Peripheral smear was formally reviewed by our hematocrit pathologist who assessed the findings to be consistent with a high- grade myeloid malignancy most consistent with acute myeloid leukemia. Plan 1. 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 WBC within normal range at this time, PLT counts and HGB are stable. 2. Afib w/ RVR: in sinus rhythm and rate controlled. on Amiodarone, digoxin 3. Pulmonary infiltrates: on Meropenem empirically. She is afebrile. I will d/ c meropenem at this time. 4. DVT prophylaxis: continue Lovenox 5. Constipation: Status post Fleet's enema on 04/10/2017, she is also receiving lactulose. Her appetite is minimal. 6. Oxygen requirements: Remains on high flow oxygen supplementation. There has been a gradual decline in O2 requirements. She will need to be on nasal cannula or a venti mask before she can be transferred to the floor. Disposition: Patient to remain the intensive care unit as long as she requires high flow oxygen. Per the nursing staff and respiratory therapy they are trying to wean down her O2 requirements. D/c Thomson Cath in the AM, so she gets out of bed more. Problem Qualifiers (1) AML (acute myeloid leukemia): Qualified Code: C92.00 - Acute myeloid leukemia not having achieved remission Roberto Yarbrough MD Apr 12, 2017 20:26
[2017-04-12] MEDS: lamoTRIgine 25 MG TAB PO SCH (21:13)
[2017-04-13] VITALS (23 sets, daily range): BP systolic 97–150; BP diastolic 56–74; PULSE 59–89; RESP 12–29; TEMP 98–98.5; O2SAT 93–97
[2017-04-13] MEDS: LEVOTHYROXINE SODIUM 100 MCG TAB PO SCH (04:10)
[2017-04-13] MEDS: ACETAMINOPHEN/HYDROcodone 325 MG/10 MG TAB PO PRN ×3 (04:10→20:08)
--- NOTE | 2017-04-13 08:46 | HHI.PR ---
Subjective Remarks 66 YO Citizen Of [place] female with Resp insuff, Myeloid leukemia had Chemo mild sob Appetite fair Still On High flow 02 Fi02 decreased 40% Had mild nausea, better now Objective Vital Signs Vital Signs Date Time Temp Pulse Resp B/P Pulse Ox O2 Delivery O2 Flow Rate FiO2 04/13/17 07:35 95 High Flow Nasal Cannula 15.00 40 04/13/17 06:00 70 04/13/17 04:00 98.3 73 16 125/59 95 04/13/17 04:00 73 04/13/17 02:00 69 04/13/17 01:11 97 High Flow Nasal Cannula 15.00 40 04/13/17 00:00 66 04/13/17 00:00 98.4 66 13 140/67 96 04/12/17 22:00 67 04/12/17 21:45 98 High Flow Nasal Cannula 15.00 40 04/12/17 20:00 68 04/12/17 20:00 98.2 68 15 112/55 95 04/12/17 19:00 64 22 96 04/12/17 19:00 Clamp Remover 10.00 40 04/12/17 18:01 62 18 144/67 95 04/12/17 18:00 62 19 94 04/12/17 17:00 62 15 114/56 92 04/12/17 16:10 98.7 65 19 110/57 94 04/12/17 15:00 64 27 92 04/12/17 14:00 64 24 96 04/12/17 13:00 67 29 95 04/12/17 12:00 63 14 96 04/12/17 11:03 73 35 106/63 96 04/12/17 11:00 71 24 98 04/12/17 10:01 69 14 162/71 94 04/12/17 10:00 68 22 93 04/12/17 09:01 62 13 105/55 94 04/12/17 09:00 62 13 94 I/O 04/12/17 04/12/17 04/12/17 04/13/17 04/13/17 04/13/17 06:59 14:59 22:59 06:59 14:59 22:59 Intake Total 720 ml 240 ml 100 ml Output Total 425 ml 525 ml 575 ml Balance -425 ml 720 ml -285 ml -475 ml Intake Oral 720 ml 240 ml 100 ml Output Urine Total 425 ml 525 ml 575 ml # Bowel Movements 0 0 Result Diagram: 04/12/17 0544 04/11/17 0514 Objective Remarks GENERAL: WBWn Female, mild sob SKIN: Warm and dry. HEAD: Normocephalic. EYES: No scleral icterus. No injection or drainage. NECK: Supple, trachea midline. No JVD or lymphadenopathy. CARDIOVASCULAR: Regular rate and rhythm without murmurs, gallops, or rubs. RESPIRATORY: Breath sounds equal bilaterally. No accessory muscle use. GASTROINTESTINAL: Abdomen soft, non-tender, nondistended. MUSCULOSKELETAL: No cyanosis, or edema. BACK: Nontender without obvious deformity. No CVA tenderness. A/P Assessment and Plan Resp Insuff Hypoxia Left basal infilt myeloid Leukemia HTN Partial sz PLAN: High flow 02 Wean 02 to keep sat >90% Aerosol Jorge Keenan MD Apr 13, 2017 08:46
[2017-04-13] MEDS: NYSTATIN SUSP 500,000 U/5 ML CUP SWISH-SWAL SCH ×4 (09:00→20:04)
[2017-04-13] MEDS: ENOXAPARIN SODIUM 40 MG/0.4 ML SYRINGE SQ SCH (09:00)
[2017-04-13] MEDS: FAMOTIDINE 20 MG TAB PO SCH ×2 (11:13→20:03)
[2017-04-13] MEDS: ALLOPURINOL 100 MG TAB PO SCH ×2 (11:14→20:03)
[2017-04-13] MEDS: AMIODARONE 200 MG TAB PO SCH (11:14)
[2017-04-13] MEDS: DIGOXIN 0.125 MG TAB PO SCH (11:15)
[2017-04-13] MEDS: DOCUSATE SODIUM 50 MG/SENNA 8.6 MG TAB PO SCH ×2 (11:15→20:07)
[2017-04-13] MEDS: METOPROLOL TARTRATE 50 MG TAB PO SCH ×2 (11:15→20:07)
[2017-04-13] MEDS: FUROSEMIDE 20 MG/2 ML VIAL IV PUSH SCH ×2 (11:16→20:06)
[2017-04-13] MEDS: ATORVASTATIN 40 MG TAB PO SCH (11:16)
[2017-04-13] MEDS: SODIUM CHLORIDE 0.9% FLUSH 10 ML FLUSH IV FLUSH SCH ×2 (11:20→20:02)
[2017-04-13 11:28] LABS: HEMATOCRIT 24.1 % (35.0-46.0); MEAN CELL VOLUME 90.6 FL (80.0-100.0); MEAN CORPUSCULAR HEMOGLOBIN 30.4 PG (27.0-34.0); MEAN CORPUSCULAR HGB CONC 33.5 % (32.0-36.0); PLATELET COUNT 66 TH/MM3 (150-450); RED BLOOD COUNT 2.66 MIL/MM3 (4.00-5.30); RED CELL DISTRIBUTION WIDTH 17.1 % (11.6-17.2); WHITE BLOOD COUNT 4.3 TH/MM3 (4.0-11.0)
[2017-04-13 11:34] LABS: HEMO FLAGS AUTO DIFF
[2017-04-13] MEDS: ONDANSETRON HCL 4 MG/2 ML VIAL IVP PRN (11:36)
[2017-04-13 11:50] LABS: BICARBONATE 34.8 MEQ/L (21.0-32.0); POTASSIUM 3.4 MEQ/L (3.5-5.1)
--- NOTE | 2017-04-13 12:05 | HHI.IDPN ---
Note Infectious Disease Note Patient on O2 nasal canula. Hi flow O2. Had nausea this am after drinking cold sofia isa. Awake and responsive. Comfortable. No sputum production. No cough. still gets pain under her breasts with deep inspiration. Afebrile. Diagnosed with high-grade myeloid neoplasm. PAST MEDICAL HISTORY 1. Hypertension 2. Hypothyroidism 3. Chronic obstructive pulmonary disease 4. partial seizures 5. intracranial aneurysm 6. anxiety disorder. 7. Appendectomy. 8. The vein surgery in the left leg. ALLERGIES PENICILLIN OBJECTIVE: Vital Signs Date Time Temp Pulse Resp B/P Pulse Ox O2 Delivery O2 Flow Rate FiO2 04/13/17 07:35 95 High Flow Nasal Cannula 15.00 40 04/13/17 06:00 70 04/13/17 04:00 98.3 73 16 125/59 95 04/13/17 04:00 73 04/13/17 02:00 69 04/13/17 01:11 97 High Flow Nasal Cannula 15.00 40 04/13/17 00:00 66 04/13/17 00:00 98.4 66 13 140/67 96 04/12/17 22:00 67 04/12/17 21:45 98 High Flow Nasal Cannula 15.00 40 04/12/17 20:00 68 04/12/17 20:00 98.2 68 15 112/55 95 04/12/17 19:00 64 22 96 04/12/17 19:00 Test Deskman 10.00 40 04/12/17 18:01 62 18 144/67 95 04/12/17 18:00 62 19 94 04/12/17 17:00 62 15 114/56 92 04/12/17 16:10 98.7 65 19 110/57 94 04/12/17 15:00 64 27 92 04/12/17 14:00 64 24 96 04/12/17 13:00 67 29 95 04/12/17 12:00 63 14 96 Laboratory Tests Test 04/12/17 04/13/17 05:44 10:10 White Blood Count 4.7 TH/MM3 4.3 TH/MM3 Red Blood Count 2.80 MIL/MM3 2.66 MIL/MM3 Hemoglobin 8.5 GM/DL 8.1 GM/DL Hematocrit 25.4 % 24.1 % Mean Corpuscular Volume 90.8 FL 90.6 FL Mean Corpuscular Hemoglobin 30.4 PG 30.4 PG Mean Corpuscular Hemoglobin 33.5 % 33.5 % Concent Red Cell Distribution Width 17.7 % 17.1 % Platelet Count 78 TH/MM3 66 TH/MM3 Mean Platelet Volume 9.5 FL 8.9 FL Neutrophils (%) (Auto) 32.5 % % Lymphocytes (%) (Auto) 36.1 % % Monocytes (%) (Auto) 29.7 % % Eosinophils (%) (Auto) 0.4 % % Basophils (%) (Auto) 1.3 % % Neutrophils # (Auto) 1.5 TH/MM3 TH/MM3 Lymphocytes # (Auto) 1.7 TH/MM3 TH/MM3 Monocytes # (Auto) 1.4 TH/MM3 TH/MM3 Eosinophils # (Auto) 0.0 TH/MM3 TH/MM3 Basophils # (Auto) 0.1 TH/MM3 TH/MM3 CBC Comment AUTO DIFF AUTO DIFF Differential Total Cells 100 Counted Neutrophils % (Manual) 25 % Band Neutrophils % 3 % Lymphocytes % 32 % Monocytes % 25 % Eosinophils % 1 % Neutrophils # (Manual) 1.5 TH/MM3 Myelocytes 3 % Promyelocytes 1 % Nucleated Red Blood Cells 1 /100 WBC Differential Comment FINAL DIFF MANUAL Blastocytes 10 % Platelet Estimate LOW Platelet Morphology Comment NORMAL Laboratory Tests Test 04/13/17 10:00 Sodium Level 136 MEQ/L Potassium Level 3.4 MEQ/L Chloride Level 93 MEQ/L Carbon Dioxide Level 34.8 MEQ/L Anion Gap 8 MEQ/L Blood Urea Nitrogen 20 MG/DL Creatinine 0.93 MG/DL Estimat Glomerular Filtration 60 ML/MIN Rate Random Glucose 99 MG/DL Calcium Level 8.5 MG/DL PHYSICAL EXAMINATION: GENERAL: No acute distress. HEENT: No icterus. Moist mucosa. NECK: Supple without adenopathy. LUNGS: Decreased breath sounds bilateral. No rhonchi. HEART: Irregular rate and rhythm. No murmurs or rubs or gallops. ABDOMEN: Bowel sounds present, obese, soft, nontender. EXTREMITIES: No clubbing or cyanosis or edema. SKIN: No rash. NEUROLOGIC: Nonfocal. PSYCHIATRIC: Calm, pleasant. IMPRESSION 1. Sepsis. Currently without evidence. 2. Pneumonia. lung infiltrate. 3. Leukocytosis. WBC now decreasing post chemo. 4. Acute kidney disease. Improved. 5. Acute myeloid leukemia. 6. Penicillin allergy. RECOMMENDATIONS 1. Monitor the temperature. 2. Monitor clinical status. Dr. Donavon Arizmendi covering over weekend if needed. Brody Reich MD Apr 13, 2017 12:05
[2017-04-13 13:28] LABS: BLASTS 6 % (0-0); EOSINOPHILS 1 % (0-4); METAMYELOCYTES 2 % (0-1); MYELOCYTES 2 % (0-0); NEUTROPHIL # MANUAL DIFF 1.9 TH/MM3 (1.8-7.7); POLYS (SEG NEUTROPHILS) 41 % (16-70); WBC DIFF SAMPLE 100
[2017-04-13 13:29] LABS: PLATELET ESTIMATE SMEAR LOW (NORMAL); PLATELET MORPHOLOGY NORMAL (NORMAL); SCAN/DIFF FINAL DIFF MANUAL
[2017-04-13] MEDS ORDERED: POTASSIUM CHLORIDE 20 MEQ CONTROLLED RELEASE TAB PO ONE (14:15)
--- NOTE | 2017-04-13 17:34 | HHI.PR ---
Subjective Subjective Remarks Resting in the bed Alert oriented talkative No acute shortness of breath chief c/p, constipation and abd. bloating (Constance Ramon) Review of Systems Constitutional Constitutional: Weakness Constitutional Remarks 10 point ROS done positives noted (Constance Ramon) Pulmonary Respiratory: Shortness of Breath (exertional, sometimes has low volumes) ( Constance Ramon) GI/Abdomen GI/Abdominal Exam: Constipation, Abdominal Pain (bloating) (Constance Ramon) Hematologic/Lymphatic Heme/Lymph Remarks Diagnosis and treatment AML (Constance Ramon) Musculoskeletal MS: Weakness (Constance Ramon) Psychiatric Psychiatric: Normal Mood, Anxiety (mild) (Constance Ramon) Vitals/Results Intake & Output 04/12/17 04/12/17 04/13/17 15:00 23:00 07:00 Intake Total 720 ml 240 ml 100 ml Output Total 525 ml 575 ml Balance 720 ml -285 ml -475 ml Intake Oral 720 ml 240 ml 100 ml Output Urine Total 525 ml 575 ml # Bowel Movements 0 Vital Signs Vital Signs Date Time Temp Pulse Resp B/P Pulse Ox O2 Delivery O2 Flow Rate FiO2 04/13/17 15:00 66 04/13/17 15:00 66 26 95 04/13/17 14:00 65 04/13/17 14:00 65 13 94 04/13/17 13:00 85 04/13/17 13:00 85 12 04/13/17 12:00 74 04/13/17 12:00 98.0 74 17 96 04/13/17 11:00 78 19 94 04/13/17 11:00 78 04/13/17 10:00 75 20 94 04/13/17 10:00 75 04/13/17 09:40 76 04/13/17 09:40 76 18 139/74 95 04/13/17 09:00 89 04/13/17 09:00 89 29 95 04/13/17 08:00 98.2 85 17 150/71 94 04/13/17 08:00 85 04/13/17 07:35 95 High Flow Nasal Cannula 15.00 40 04/13/17 07:00 64 04/13/17 07:00 64 12 97/56 95 04/13/17 07:00 Staff Pharmacist 10.00 40 04/13/17 06:00 70 04/13/17 04:00 98.3 73 16 125/59 95 04/13/17 04:00 73 04/13/17 02:00 69 04/13/17 01:11 97 High Flow Nasal Cannula 15.00 40 04/13/17 00:00 66 04/13/17 00:00 98.4 66 13 140/67 96 04/12/17 22:00 67 04/12/17 21:45 98 High Flow Nasal Cannula 15.00 40 04/12/17 20:00 68 04/12/17 20:00 98.2 68 15 112/55 95 04/12/17 19:00 64 22 96 04/12/17 19:00 Staff Pharmacist 10.00 40 04/12/17 18:01 62 18 144/67 95 04/12/17 18:00 62 19 94 (Constance Ramon) CBC/BMP: 04/13/17 1010 04/13/17 1000 Lab Results Laboratory Tests Test 04/13/17 04/13/17 10:00 10:10 Sodium Level 136 MEQ/L Potassium Level 3.4 MEQ/L Chloride Level 93 MEQ/L Carbon Dioxide Level 34.8 MEQ/L Anion Gap 8 MEQ/L Blood Urea Nitrogen 20 MG/DL Creatinine 0.93 MG/DL Estimat Glomerular Filtration 60 ML/MIN Rate Random Glucose 99 MG/DL Calcium Level 8.5 MG/DL White Blood Count 4.3 TH/MM3 Red Blood Count 2.66 MIL/MM3 Hemoglobin 8.1 GM/DL Hematocrit 24.1 % Mean Corpuscular Volume 90.6 FL Mean Corpuscular Hemoglobin 30.4 PG Mean Corpuscular Hemoglobin 33.5 % Concent Red Cell Distribution Width 17.1 % Platelet Count 66 TH/MM3 Mean Platelet Volume 8.9 FL Neutrophils (%) (Auto) % Lymphocytes (%) (Auto) % Monocytes (%) (Auto) % Eosinophils (%) (Auto) % Basophils (%) (Auto) % Neutrophils # (Auto) TH/MM3 Lymphocytes # (Auto) TH/MM3 Monocytes # (Auto) TH/MM3 Eosinophils # (Auto) TH/MM3 Basophils # (Auto) TH/MM3 CBC Comment AUTO DIFF Differential Total Cells 100 Counted Neutrophils % (Manual) 41 % Lymphocytes % 21 % Monocytes % 27 % Eosinophils % 1 % Neutrophils # (Manual) 1.9 TH/MM3 Metamyelocytes 2 % Myelocytes 2 % Differential Comment FINAL DIFF MANUAL Blastocytes 6 % Platelet Estimate LOW Platelet Morphology Comment NORMAL Imaging Remarks Last Impressions Abdomen X-Ray 04/09/17 0000 Signed Impressions: Service Date/Time: Sunday, April 09, 2017 14:49 - CONCLUSION: Limited study. No gross pneumoperitoneum. Yared Lamar Jr., MD Chest X-Ray 04/08/17 0600 Signed Impressions: Service Date/Time: Saturday, April 08, 2017 03:47 - CONCLUSION: 1. Minimal bibasilar densities with scarring left upper lobe. 2. Small left pleural effusion. Beau Winter MD Chest CT 04/07/17 0000 Signed Impressions: Service Date/Time: Friday, April 07, 2017 12:28 - CONCLUSION: 1. Dense consolidation in the left lower lobe with air bronchograms most characteristic of pneumonia. 2. Small bilateral pleural effusions. 3. The mild cardiomegaly with small amount of pericardial fluid. Balaji Solorio MD Gall Bladder Ultrasound 04/06/17 0000 Signed Impressions: Service Date/Time: Thursday, April 06, 2017 17:45 - CONCLUSION: 1. Fatty liver. Right pleural effusion. No gallstones or biliary ductal dilatation. Rivas Tejeda MD Bone Biopsy CT 03/26/17 0000 Signed Impressions: Service Date/Time: Sunday, March 26, 2017 14:48 - CONCLUSION: 1. Uncomplicated CT guided bone marrow aspirate. 2. Uncomplicated CT guided bone marrow biopsy. Raoul Jeffries MD Lumbar Spine CT [id number]/25/[id number] Signed Impressions: Service Date/Time: Sunday, March 26, 2017 01:12 - CONCLUSION: 1. Degenerative disc changes greatest at the L4-5 and L5-S1 levels with broad-based disc osteophyte complexes. There is lateral recess stenosis at the L5-S1 level. 2. Mild retrolisthesis of L5 on S1 with degenerative disc change and broad-based disc osteophyte complex. 3. Narrowing of the neuroforamina bilaterally at the L4-5 and L5-S1 levels. 4. Degenerative disc change. Balaji Solorio MD CT Angiography [id number]/[id number] Signed Impressions: Service Date/Time: Sunday, March 26, 2017 01:09 - CONCLUSION: 1. Mild consolidation along the left fissure and lower lobe. This could indicate early pneumonia. 2. No evidence of pulmonary embolism. Balaji Solorio MD (Mason,Constance M. CRM MARKETING EXECUTIVE) Physical Exam General General Appearance: Well Developed, Well Nourished, No Acute Distress, Anxious , Obese (Yenny,Constance M. CRM MARKETING EXECUTIVE) Eyes Eye Exam: Pupils Equal, Pupils Reactive (Mason,Constance M. CRM MARKETING EXECUTIVE) Ears & Nose Ears & Nose Exam: Nasal Mucosa [place] (pale) (Yenny,Constance M. CRM MARKETING EXECUTIVE) Throat Throat Exam: Oral Mucosa [place] & Moist (pale) (Mason,Constance M. CRM MARKETING EXECUTIVE) Neck Neck Exam: Neck Supple, Trachea Midline (Yenny,Constance M. CRM MARKETING EXECUTIVE) Pulmonary Resp Exam: Breath Sounds Equal, Decreased Bases, Diminished Breath Sounds ( especially in the left base) Resp Remarks Remains on high flow O2 40%, 10 L (MasonConstance M. CRM MARKETING EXECUTIVE) Cardiology CV Exam: Regular, Normal Sinus Rhythm, Good Perfusion (Yenny,Constance M. CRM MARKETING EXECUTIVE) Gastrointestinal/Abdomen GI Exam: Soft, Non-Tender, Bowel Sounds Present, Non-Distended GI Remarks bloating (Yenny,Constance M. CRM MARKETING EXECUTIVE) Hematologic/Lymphatic Heme Remarks Diagnosis and treatment AML (Mason,Constance M. CRM MARKETING EXECUTIVE) Musculoskeletal MS Exam: Normal Tone (Mason,Constance M. CRM MARKETING EXECUTIVE) Integumentary Skin Exam: Warm, Dry (MasonConstance M. CRM MARKETING EXECUTIVE) Extremeties Extremities Exam: No Edema, Pedal Pulses Palpable (Mason,Constance M. CRM MARKETING EXECUTIVE) Neurologic Neuro Exam: Alert, Awake, Oriented, Speech Clear, Moving All Extremities, No Focal Deficits (Yenny,Constance M. CRM MARKETING EXECUTIVE) Psychiatric Psych Exam: Appropriate Responses (Yenny,Constance M. CRM MARKETING EXECUTIVE) VTE Prophylaxis VTE Prophylaxis Device: SCDs VTE Prophylaxis Meds: Lovenox (YennyLeidaConstance M. CRM MARKETING EXECUTIVE) Assessment/Plan Problem List: (1) Sepsis (2) Anemia (3) Thrombocytopenia (4) Elevated white blood cell count (5) Pneumonia (6) CKD (chronic kidney disease) stage 3, GFR 30-59 ml/min (7) AML (acute myeloid leukemia) (8) Low blood pressure (9) Tachycardia (10) Hx TIA/stroke w/o resid (11) hx cerebral aneurysm (12) Atrial fibrillation with RVR Assessment/Plan Assessment/Plan Vital signs reviewed no fever, other trends normal Labs reviewed, anemia 8.1, thrombocytopenia 66, down from 78, K+ low, added PO dose , recheck in am, BUN 20 Assessment Acute myeloid leukemia, initially with severe leukocytosis, now having some leukopenia Fatty liver Right pleural effusion, small Sepsis Pneumonia, no change Hypoxemia Anemia Thrombocytopenia Obesity Acute kidney injury, improved Paroxysmal atrial tachycardia/atrial fibrillation,CVR noted, with medical management Left ventricular hypertrophy with normal EF History of TIA, chronic kidney disease, constipation, back pain, penicillin allergy, Degenerative disc disease Pneumonia left lower lobe Constipation Monitor bowel regimen, DC order for thomson catheter, O2 sat stable, Plan pneumonia, left lower lobe, gradual small improvements noted, still has small left lobe effusion Slow but gradual improvement noted continues, N0 SOB at rest or with conversation Remains on high flow oxygen, 40%, and encouraged to turn cough and deep breathe Appreciate pulmonology input and consultation, continue to wean O2 to maintain O2 sats greater than 90. Aerosol treatments ID consult and follow, Constipation, around 6 days, No BM, Check for impaction, give mag citrate, up to BSC if possible. States has history of constipation and takes meds at home. If needed, may also have ducolax suppository. Appreciate oncology input First treatment finished on 81 1 Dacogen Remains anemic, stable at 8.1 and thrombocytopenic electrolytes monitor and replacement Appreciate palliative care input, patient is alternative code Degenerative disc disease, encourage patient to move about in bed and to be up out of bed with physical therapy Mild pain management if warranted Lovenox for DVT prophylaxis, but continue to monitor platelet count Alternative CODE STATUS noted Keep in ICU for now as she continues to be on high flow oxygen Discussed with RN Discussed with patient and her visitor Discussed with Dr. Paniagua, seen on his behalf (Constance Ramon) Assessment/Plan seen, examined by myself, Dr Paniagua, today Discussed with patient and family Discussed with oncologist Discussed with nurse Needs more active management of her constipation She is complaining of nausea and bloating She is down to 15 L oxygen at 30% Increase activity Once she is off the high flow oxygen she can go to the oncology unit Discussed with mid level provider The exam, history, and the medical decision-making described in the above note were completed with the assistance of the mid-level provider. I reviewed the findings presented. I attest that I had a [id number] encounter with the patient on the same day, and personally performed and documented my assessment and findings in the medical record. (Qamar Paniagua MD) Problem Qualifiers (1) Sepsis: Qualified Code: A41.9 - Sepsis, due to unspecified organism (2) Anemia: Qualified Code: D64.9 - Anemia, unspecified type (3) Elevated white blood cell count: Qualified Code: D72.829 - Leukocytosis, unspecified type (4) Pneumonia: Qualified Code: J18.1 - Pneumonia of left lower lobe due to infectious organism (5) AML (acute myeloid leukemia): Qualified Code: C92.00 - Acute myeloid leukemia not having achieved remission (6) Low blood pressure: Qualified Code: I95.9 - Hypotension, unspecified hypotension type Constance Ramon Apr 13, 2017 17:34 Qamar Paniagua MD Apr 13, 2017 18:26
[2017-04-13] MEDS ORDERED: MAGNESIUM CITRATE SOLN 300 ML BTL PO ONE (18:00)
[2017-04-13] MEDS: lamoTRIgine 25 MG TAB PO SCH (20:03)
[2017-04-13] MEDS: POTASSIUM CHLORIDE 20 MEQ CONTROLLED RELEASE TAB PO SCH (20:07)
--- NOTE | 2017-04-13 22:00 | PD.ONC.PN ---
Subjective Subjective Remarks Pt seen and examined at 6:30pm. Vitals, meds, labs reviewed. She remains on high flow oxygen. Lujan Catheter is now out, she has been getting up out of bed to use the bed side commode. She tells me she was able to stand for several minutes today. She remains constipated. Objective Data Date Time Temp Pulse Resp B/P Pulse Ox O2 Delivery O2 Flow Rate FiO2 04/13/17 20:34 95 High Flow Nasal Cannula 15.00 30 04/13/17 19:00 65 04/13/17 19:00 65 22 95 04/13/17 18:00 66 20 94 04/13/17 18:00 66 04/13/17 17:00 79 22 04/13/17 17:00 79 04/13/17 16:00 66 04/13/17 15:00 66 04/13/17 15:00 66 26 95 04/13/17 14:00 65 04/13/17 14:00 65 13 94 04/13/17 13:00 85 04/13/17 13:00 85 12 04/13/17 12:00 74 04/13/17 12:00 98.0 74 17 96 04/13/17 11:00 78 19 94 04/13/17 11:00 78 04/13/17 10:00 75 20 94 04/13/17 10:00 75 04/13/17 09:40 76 04/13/17 09:40 76 18 139/74 95 04/13/17 09:00 89 04/13/17 09:00 89 29 95 04/13/17 08:00 98.2 85 17 150/71 94 04/13/17 08:00 85 04/13/17 07:35 95 High Flow Nasal Cannula 15.00 40 04/13/17 07:00 64 04/13/17 07:00 64 12 97/56 95 04/13/17 07:00 Interviewing Clerk 10.00 40 04/13/17 06:00 70 04/13/17 04:00 98.3 73 16 125/59 95 04/13/17 04:00 73 04/13/17 02:00 69 04/13/17 01:11 97 High Flow Nasal Cannula 15.00 40 04/13/17 00:00 66 04/13/17 00:00 98.4 66 13 140/67 96 04/12/17 22:00 67 04/13/17 04/13/17 04/13/17 06:59 14:59 22:59 Intake Total 100 ml 480 ml Output Total 575 ml 600 ml Balance -475 ml -120 ml Result Diagram: 04/13/17 1010 04/13/17 1000 Laboratory Results Laboratory Tests Test 04/13/17 04/13/17 10:00 10:10 Sodium Level 136 MEQ/L Potassium Level 3.4 MEQ/L Chloride Level 93 MEQ/L Carbon Dioxide Level 34.8 MEQ/L Anion Gap 8 MEQ/L Blood Urea Nitrogen 20 MG/DL Creatinine 0.93 MG/DL Estimat Glomerular Filtration 60 ML/MIN Rate Random Glucose 99 MG/DL Calcium Level 8.5 MG/DL White Blood Count 4.3 TH/MM3 Red Blood Count 2.66 MIL/MM3 Hemoglobin 8.1 GM/DL Hematocrit 24.1 % Mean Corpuscular Volume 90.6 FL Mean Corpuscular Hemoglobin 30.4 PG Mean Corpuscular Hemoglobin 33.5 % Concent Red Cell Distribution Width 17.1 % Platelet Count 66 TH/MM3 Mean Platelet Volume 8.9 FL Neutrophils (%) (Auto) % Lymphocytes (%) (Auto) % Monocytes (%) (Auto) % Eosinophils (%) (Auto) % Basophils (%) (Auto) % Neutrophils # (Auto) TH/MM3 Lymphocytes # (Auto) TH/MM3 Monocytes # (Auto) TH/MM3 Eosinophils # (Auto) TH/MM3 Basophils # (Auto) TH/MM3 CBC Comment AUTO DIFF Differential Total Cells 100 Counted Neutrophils % (Manual) 41 % Lymphocytes % 21 % Monocytes % 27 % Eosinophils % 1 % Neutrophils # (Manual) 1.9 TH/MM3 Metamyelocytes 2 % Myelocytes 2 % Differential Comment FINAL DIFF MANUAL Blastocytes 6 % Platelet Estimate LOW Platelet Morphology Comment NORMAL Administered Medications Medications (Trade) Dose Ordered Sig/Tylor Route PRN Reason Start Time Stop Time Status Last Admin Dose Admin Sodium Chloride (NS Flush) 2 ml BID IV FLUSH 03/26/17 09:00 04/13/17 20:02 Acetaminophen (Tylenol) 650 mg Q4H PRN PO TEMP > 100.4 03/25/17 23:15 03/30/17 08:26 Ondansetron HCl (Zofran Inj) 4 mg Q6H PRN IVP NAUSEA OR VOMITING 03/25/17 23:15 04/13/17 11:36 Acetaminophen (Tylenol) 650 mg Q6H PRN PO PAIN SCALE 1 TO 2 03/25/17 23:15 03/26/17 08:14 Temazepam (Restoril) 15 mg HS PRN PO insomnia 03/26/17 00:30 04/05/17 21:11 Allopurinol (Zyloprim) 100 mg BID PO 03/26/17 09:00 04/13/17 20:03 Nystatin (Mycostatin Liq) 5 ml QID SWISH-SWAL 03/26/17 18:00 04/12/17 21:13 Atorvastatin Calcium (Lipitor) 40 mg DAILY PO 03/28/17 09:00 04/13/17 11:16 Lamotrigine (LaMICtal) 50 mg HS PO 03/27/17 21:00 04/13/17 20:03 Levothyroxine Sodium (Synthroid) 100 mcg DAILY@06 PO 03/28/17 06:00 04/13/17 04:10 Acetaminophen/ Hydrocodone Bitart ([place] 10-325 Mg) 1 tab Q4H PRN PO PAIN 7-10 03/28/17 09:15 04/13/17 20:08 Lorazepam (Ativan) 1 mg Q6H PRN PO ANXIETY 03/28/17 09:15 Hold 04/03/17 06:52 Magnesium Hydroxide (Milk Of Magnesia Liq) 30 ml Q12H PRN PO SEE LABEL COMMENTS 03/31/17 14:00 04/01/17 08:15 Bisacodyl (Dulcolax Supp) 10 mg DAILY PRN RECTAL SEE LABEL COMMENTS 03/31/17 14:00 04/01/17 08:14 Lactulose (Lactulose Liq) 30 ml DAILY PRN PO SEE LABEL COMMENTS 03/31/17 14:00 04/10/17 10:51 Metoprolol Tartrate (Lopressor Inj) 2.5 mg Q2H PRN IV PUSH tachycardia 04/02/17 20:15 04/04/17 22:42 Potassium Phosphate (K-Phos) 2,000 mg Q4H PRN PO For Phosphorus < 2.5 mg/dL 04/03/17 08:30 04/03/17 14:23 Digoxin (Lanoxin) 0.125 mg DAILY PO 04/04/17 09:00 04/13/17 11:15 Metoprolol Tartrate (Lopressor) 50 mg BID PO 04/04/17 21:00 04/13/17 20:07 Amiodarone HCl (Cordarone) 200 mg DAILY PO 04/04/17 09:00 04/13/17 11:14 Enoxaparin Sodium (Lovenox Inj) 40 mg Q24H SQ 04/05/17 09:00 04/13/17 09:00 Furosemide (Lasix Inj) 20 mg BID IV PUSH 04/08/17 21:00 04/13/17 11:16 Senna/Docusate Sodium (Ramya-Colace) 2 tab BID PO 04/11/17 21:00 04/13/17 20:07 Famotidine (Pepcid) 20 mg BID PO 04/12/17 21:00 04/13/17 20:03 Potassium Chloride (KCl) 20 meq Q12HR PO 04/13/17 21:00 04/13/17 20:07 Objective Remarks GENERAL PHYSICAL APPEARANCE: Ms. Richard is a middle-aged female, she is Sitting up on the side of the bed bed and is in no acute distress. She is able to speak to me in full sentences. HEENT: Head is atraumatic, normocephalic, conjunctivae are pale. Sclerae are anicteric, EOMI, PERRLA. ORAL EXAM: She has thrush no longer apparent. NECK: No cervical lymphadenopathy. RESPIRATORY: Decreased bibasilar breath sounds left greater than right. Some crackles noted. CARDIOVASCULAR: regular rhythm, regular rate, distant sounding heart sounds. rubs or gallops. She does have a systolic murmur heard over the aortic area. ABDOMEN: Obese belly, soft and nontender, nondistended. No palpable organ enlargement. Tympanic to percussion. LOWER EXTREMITIES: No pretibial edema or calf tenderness. MUSCULOSKELETAL: Adequate muscle mass, tone and strength. Assessment/Plan Problem List: (1) AML (acute myeloid leukemia) Status: Acute Plan: --Bone marrow biopsy indicates findings consistent with AML. FLT-3, CEPBA and NPM-1 analysis pending to help us prognosticate further. -- poor candidate for intensive induction remission therapy with anthracycline/ Cytarabine or HiDAC due to her cardiac and pulmonary issues and borderline performance status. --on allopurinol for tumor lysis prophylaxis --03/30/17: Dacogen day 1 started --03/31/17: transferred to [facility] [place] d/t hypoxia, tachycardia, hypotension --04/01: hold Dacogen. patient remains hypotensive, tachycardic, hypoxic -- 04/03 and 04/04/2017: Day 2 and day 3 Dacogen delivered. --04/06: Finished 1st treatment with Dacogen. (2) Atrial fibrillation with RVR Status: Acute Plan: -- A. fib with RVR associated with transient chest pain: --cardiology following --on digoxin, amiodarone Assessment Ms. Richard is a 66-year-old female with a 3-week history of progressive malaise, fatigue and weakness. She reports soreness of the throat and a dry cough, both of which have been chronic. She presented to the emergency department for further workup and management because her symptoms of fatigue progressed to the point where she had difficulty walking from her bedroom to her restroom. She called EMS last night due to the severity of the symptoms. Blood work performed in the emergency department indicates findings consistent with anemia, thrombocytopenia, her WBCs are grossly abnormal with findings of numerous immature cells and blasts in the peripheral circulation. 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 Peripheral smear was formally reviewed by our hematocrit pathologist who assessed the findings to be consistent with a high- grade myeloid malignancy most consistent with acute myeloid leukemia. Plan 1. 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 WBC within normal range at this time, PLT counts and HGB are trending down. 2. Afib w/ RVR: in sinus rhythm and rate controlled. on Amiodarone, digoxin 3. Pulmonary infiltrates: on Meropenem empirically. She is afebrile. I will d/ c meropenem at this time. 4. DVT prophylaxis: continue Lovenox 5. Constipation: Status post Fleet's enema on 04/10/2017, she is also receiving lactulose. Her appetite is minimal. 6. Oxygen requirements: Remains on high flow oxygen supplementation. There has been a gradual decline in O2 requirements. She will need to be on nasal cannula or a venti mask before she can be transferred to the floor. Disposition: Patient to remain the intensive care unit as long as she requires high flow oxygen. Per the nursing staff and respiratory therapy they are trying to wean down her O2 requirements. Problem Qualifiers (1) AML (acute myeloid leukemia): Qualified Code: C92.00 - Acute myeloid leukemia not having achieved remission Roberto Yarbrough MD Apr 13, 2017 21:59
[2017-04-14] VITALS (17 sets, daily range): BP systolic 89–141; BP diastolic 55–65; PULSE 60–136; RESP 12–33; TEMP 97.9–98.7; O2SAT 94–98
[2017-04-14] MEDS: ACETAMINOPHEN/HYDROcodone 325 MG/10 MG TAB PO PRN ×4 (00:32→23:14)
[2017-04-14] MEDS: ONDANSETRON HCL 4 MG/2 ML VIAL IVP PRN ×2 (01:11→15:42)
[2017-04-14] MEDS: LEVOTHYROXINE SODIUM 100 MCG TAB PO SCH (05:41)
[2017-04-14 05:57] LABS: HEMATOCRIT 24.4 % (35.0-46.0); MEAN CELL VOLUME 91.5 FL (80.0-100.0); MEAN CORPUSCULAR HEMOGLOBIN 30.8 PG (27.0-34.0); MEAN CORPUSCULAR HGB CONC 33.7 % (32.0-36.0); PLATELET COUNT 66 TH/MM3 (150-450); RED BLOOD COUNT 2.67 MIL/MM3 (4.00-5.30); RED CELL DISTRIBUTION WIDTH 17.2 % (11.6-17.2); WHITE BLOOD COUNT 3.8 TH/MM3 (4.0-11.0)
[2017-04-14 06:00] LABS: HEMO FLAGS AUTO DIFF
[2017-04-14 06:08] LABS: BICARBONATE 34.8 MEQ/L (21.0-32.0); POTASSIUM 3.5 MEQ/L (3.5-5.1)
[2017-04-14 08:21] LABS: BLASTS 8 % (0-0); MYELOCYTES 2 % (0-0); NEUTROPHIL # MANUAL DIFF 1.8 TH/MM3 (1.8-7.7); PLATELET ESTIMATE SMEAR LOW (NORMAL); PLATELET MORPHOLOGY ENLARGED (NORMAL); POLYS (SEG NEUTROPHILS) 46 % (16-70); SCAN/DIFF FINAL DIFF MANUAL; WBC DIFF SAMPLE 100
[2017-04-14] MEDS: METOPROLOL TARTRATE 50 MG TAB PO SCH ×2 (09:00→21:21)
[2017-04-14] MEDS: NYSTATIN SUSP 500,000 U/5 ML CUP SWISH-SWAL SCH ×4 (09:00→21:20)
[2017-04-14] MEDS: POTASSIUM CHLORIDE 20 MEQ CONTROLLED RELEASE TAB PO SCH ×2 (09:29→21:21)
[2017-04-14] MEDS: AMIODARONE 200 MG TAB PO SCH (09:29)
[2017-04-14] MEDS: DIGOXIN 0.125 MG TAB PO SCH (09:29)
[2017-04-14] MEDS: ALLOPURINOL 100 MG TAB PO SCH ×2 (09:29→21:21)
[2017-04-14] MEDS: FAMOTIDINE 20 MG TAB PO SCH ×2 (09:29→21:21)
[2017-04-14] MEDS: DOCUSATE SODIUM 50 MG/SENNA 8.6 MG TAB PO SCH ×2 (09:29→21:21)
[2017-04-14] MEDS: FUROSEMIDE 20 MG/2 ML VIAL IV PUSH SCH ×2 (09:29→21:21)
[2017-04-14] MEDS: ENOXAPARIN SODIUM 40 MG/0.4 ML SYRINGE SQ SCH (09:30)
[2017-04-14] MEDS: SODIUM CHLORIDE 0.9% FLUSH 10 ML FLUSH IV FLUSH SCH ×2 (09:31→21:00)
[2017-04-14] MEDS: ATORVASTATIN 40 MG TAB PO SCH (09:34)
[2017-04-14] MEDS: BISACODYL 10 MG SUPP RECTAL PRN (09:40)
[2017-04-14] MEDS: LACTULOSE SYRUP 20 GM/30 ML CUP PO PRN (09:40)
[2017-04-14] MEDS: MAGNESIUM HYDROXIDE SUSP 30 ML CUP PO PRN (09:40)
--- NOTE | 2017-04-14 09:51 | PD.ONC.PN ---
Subjective Subjective Remarks Afebrile overnight. Breathing improved. Feeling constipated. No BM in 8 days. Objective Data Date Time Temp Pulse Resp B/P Pulse Ox O2 Delivery O2 Flow Rate FiO2 04/14/17 08:49 96 Nasal Cannula 4.00 04/14/17 07:00 97 Nasal Cannula 4.00 04/14/17 06:00 67 04/14/17 04:00 98.3 60 12 113/55 97 04/14/17 04:00 60 04/14/17 02:00 64 04/14/17 00:17 96 Nasal Cannula 4.00 04/14/17 00:00 61 04/14/17 00:00 98.2 61 31 141/65 96 04/13/17 22:00 59 04/13/17 20:34 95 High Flow Nasal Cannula 15.00 30 04/13/17 20:00 98.5 68 21 117/61 93 04/13/17 20:00 68 04/13/17 19:00 65 04/13/17 19:00 Borderer 10.00 30 04/13/17 19:00 65 22 95 04/13/17 18:00 66 20 94 04/13/17 18:00 66 04/13/17 17:00 79 22 04/13/17 17:00 79 04/13/17 16:00 66 04/13/17 15:00 66 04/13/17 15:00 66 26 95 04/13/17 14:00 65 04/13/17 14:00 65 13 94 04/13/17 13:00 85 04/13/17 13:00 85 12 04/13/17 12:00 74 04/13/17 12:00 98.0 74 17 96 04/13/17 11:00 78 19 94 04/13/17 11:00 78 04/13/17 10:00 75 20 94 04/13/17 10:00 75 Result Diagram: 04/14/17 0526 04/14/17 0526 Laboratory Results Laboratory Tests Test 04/13/17 04/13/17 04/14/17 10:00 10:10 05:26 Sodium Level 136 MEQ/L 136 MEQ/L Potassium Level 3.4 MEQ/L 3.5 MEQ/L Chloride Level 93 MEQ/L 94 MEQ/L Carbon Dioxide Level 34.8 MEQ/L 34.8 MEQ/L Anion Gap 8 MEQ/L 7 MEQ/L Blood Urea Nitrogen 20 MG/DL 20 MG/DL Creatinine 0.93 MG/DL 0.99 MG/DL Estimat Glomerular Filtration 60 ML/MIN 56 ML/MIN Rate Random Glucose 99 MG/DL 97 MG/DL Calcium Level 8.5 MG/DL 8.4 MG/DL White Blood Count 4.3 TH/MM3 3.8 TH/MM3 Red Blood Count 2.66 MIL/MM3 2.67 MIL/MM3 Hemoglobin 8.1 GM/DL 8.2 GM/DL Hematocrit 24.1 % 24.4 % Mean Corpuscular Volume 90.6 FL 91.5 FL Mean Corpuscular Hemoglobin 30.4 PG 30.8 PG Mean Corpuscular Hemoglobin 33.5 % 33.7 % Concent Red Cell Distribution Width 17.1 % 17.2 % Platelet Count 66 TH/MM3 66 TH/MM3 Mean Platelet Volume 8.9 FL 8.4 FL Neutrophils (%) (Auto) % % Lymphocytes (%) (Auto) % % Monocytes (%) (Auto) % % Eosinophils (%) (Auto) % % Basophils (%) (Auto) % % Neutrophils # (Auto) TH/MM3 TH/MM3 Lymphocytes # (Auto) TH/MM3 TH/MM3 Monocytes # (Auto) TH/MM3 TH/MM3 Eosinophils # (Auto) TH/MM3 TH/MM3 Basophils # (Auto) TH/MM3 TH/MM3 CBC Comment AUTO DIFF AUTO DIFF Differential Total Cells 100 100 Counted Neutrophils % (Manual) 41 % 46 % Lymphocytes % 21 % 29 % Monocytes % 27 % 15 % Eosinophils % 1 % Neutrophils # (Manual) 1.9 TH/MM3 1.8 TH/MM3 Metamyelocytes 2 % Myelocytes 2 % 2 % Differential Comment FINAL DIFF FINAL DIFF MANUAL MANUAL Blastocytes 6 % 8 % Platelet Estimate LOW LOW Platelet Morphology Comment NORMAL ENLARGED Administered Medications Medications (Trade) Dose Ordered Sig/Tylor Route PRN Reason Start Time Stop Time Status Last Admin Dose Admin Sodium Chloride (NS Flush) 2 ml BID IV FLUSH 03/26/17 09:00 04/14/17 09:31 Acetaminophen (Tylenol) 650 mg Q4H PRN PO TEMP > 100.4 03/25/17 23:15 03/30/17 08:26 Ondansetron HCl (Zofran Inj) 4 mg Q6H PRN IVP NAUSEA OR VOMITING 03/25/17 23:15 04/14/17 01:11 Acetaminophen (Tylenol) 650 mg Q6H PRN PO PAIN SCALE 1 TO 2 03/25/17 23:15 03/26/17 08:14 Temazepam (Restoril) 15 mg HS PRN PO insomnia 03/26/17 00:30 04/05/17 21:11 Allopurinol (Zyloprim) 100 mg BID PO 03/26/17 09:00 04/14/17 09:29 Nystatin (Mycostatin Liq) 5 ml QID SWISH-SWAL 03/26/17 18:00 04/12/17 21:13 Atorvastatin Calcium (Lipitor) 40 mg DAILY PO 03/28/17 09:00 04/14/17 09:34 Lamotrigine (LaMICtal) 50 mg HS PO 03/27/17 21:00 04/13/17 20:03 Levothyroxine Sodium (Synthroid) 100 mcg DAILY@06 PO 03/28/17 06:00 04/14/17 05:41 Acetaminophen/ Hydrocodone Bitart (Lazbuddie 10-325 Mg) 1 tab Q4H PRN PO PAIN 7-10 03/28/17 09:15 04/14/17 05:40 Lorazepam (Ativan) 1 mg Q6H PRN PO ANXIETY 03/28/17 09:15 Hold 04/03/17 06:52 Magnesium Hydroxide (Milk Of Magnesia Liq) 30 ml Q12H PRN PO SEE LABEL COMMENTS 03/31/17 14:00 04/14/17 09:40 Sennosides (Senokot) 17.2 mg Q12H PRN PO SEE LABEL COMMENTS 03/31/17 14:00 04/14/17 09:40 Bisacodyl (Dulcolax Supp) 10 mg DAILY PRN RECTAL SEE LABEL COMMENTS 03/31/17 14:00 04/14/17 09:40 Lactulose (Lactulose Liq) 30 ml DAILY PRN PO SEE LABEL COMMENTS 03/31/17 14:00 04/14/17 09:40 Metoprolol Tartrate (Lopressor Inj) 2.5 mg Q2H PRN IV PUSH tachycardia 04/02/17 20:15 04/04/17 22:42 Potassium Phosphate (K-Phos) 2,000 mg Q4H PRN PO For Phosphorus < 2.5 mg/dL 04/03/17 08:30 04/03/17 14:23 Digoxin (Lanoxin) 0.125 mg DAILY PO 04/04/17 09:00 04/14/17 09:29 Metoprolol Tartrate (Lopressor) 50 mg BID PO 04/04/17 21:00 04/13/17 20:07 Amiodarone HCl (Cordarone) 200 mg DAILY PO 04/04/17 09:00 04/14/17 09:29 Enoxaparin Sodium (Lovenox Inj) 40 mg Q24H SQ 04/05/17 09:00 04/14/17 09:30 Furosemide (Lasix Inj) 20 mg BID IV PUSH 04/08/17 21:00 04/14/17 09:29 Senna/Docusate Sodium (Ramya-Colace) 2 tab BID PO 04/11/17 21:00 04/14/17 09:29 Famotidine (Pepcid) 20 mg BID PO 04/12/17 21:00 04/14/17 09:29 Potassium Chloride (KCl) 20 meq Q12HR PO 04/13/17 21:00 04/14/17 09:29 Objective Remarks GENERAL: Middle aged female supine in bed in nad. SKIN: Warm and dry. HEAD: Normocephalic. EYES: No injection or drainage. NECK: Supple, trachea midline. CARDIOVASCULAR: Regular rate and rhythm RESPIRATORY: diminished at bases. anterior atkins clear. on 4L O2 via NC GASTROINTESTINAL: Abdomen mildly distended, non-tender. EXTREMITIES: No cyanosis NEUROLOGICAL: awake and alert, normal speech. Assessment/Plan Problem List: (1) AML (acute myeloid leukemia) Status: Acute Plan: --s/p treatment with Dacogen --Bone marrow biopsy indicates findings consistent with AML. FLT-3, CEPBA and NPM-1 analysis pending to help us prognosticate further. -- poor candidate for intensive induction remission therapy with anthracycline/ Cytarabine or HiDAC due to her cardiac and pulmonary issues and borderline performance status. --on allopurinol for tumor lysis prophylaxis (2) Atrial fibrillation with RVR Status: Acute Plan: -- A. fib with RVR associated with transient chest pain: --on amiodarone, Digoxin Assessment Ms. Richard is a 66-year-old female with a 3-week history of progressive malaise, fatigue and weakness. She reports soreness of the throat and a dry cough, both of which have been chronic. She presented to the emergency department for further workup and management because her symptoms of fatigue progressed to the point where she had difficulty walking from her bedroom to her restroom. She called EMS last night due to the severity of the symptoms. Blood work performed in the emergency department indicates findings consistent with anemia, thrombocytopenia, her WBCs are grossly abnormal with findings of numerous immature cells and blasts in the peripheral circulation. 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 Peripheral smear was formally reviewed by our hematocrit pathologist who assessed the findings to be consistent with a high- grade myeloid malignancy most consistent with acute myeloid leukemia. Plan 1. 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 counts trending down. no transfusion today. 2. Afib w/ RVR: in sinus rhythm and rate controlled. on Amiodarone, digoxin 3. Respiratory: breathing significantly improved. off all antibiotics. afebrile. Now on 4L O2 via NC. 4. DVT prophylaxis: continue Lovenox. will d/c when platelets fall to less than 50K. 5. Constipation: will try PRN laxatives today, if these are ineffective, may need to try another enema. Disposition: Patient to remain the intensive care unit as long as she requires high flow oxygen. Per the nursing staff and respiratory therapy they are trying to wean down her O2 requirements. Attending Statement The exam, history, and the medical decision-making described in the above note were completed with the assistance of the mid-level provider. I reviewed and agree with the findings presented. I attest that I had a [id number] encounter with the patient on the same day, and personally performed and documented my assessment and findings in the medical record. Problem Qualifiers (1) AML (acute myeloid leukemia): Qualified Code: C92.00 - Acute myeloid leukemia not having achieved remission Lidia Tracey Apr 14, 2017 09:51 David Koroma MD Apr 14, 2017 18:17
[2017-04-14] MEDS ORDERED: ALPRAZolam 0.25 MG TAB PO PRN (15:15)
[2017-04-14] MEDS ORDERED: SOD PHOSPHATE/SOD BIPHOSPHATE (ADULT) ENEMA 133ML RECTAL SCH (15:15)
--- NOTE | 2017-04-14 17:29 | HHI.PR ---
Subjective Remarks breathing better had good BM dec appetite nausea sometime no other complaint ROS for 12 point is unremarkable otherwise Objective Objective Results - Vital Signs Date Time Temp Pulse Resp B/P Pulse Ox O2 Delivery O2 Flow Rate FiO2 04/14/17 16:00 98.5 79 20 102/56 95 04/14/17 16:00 106 33 94 04/14/17 16:00 106 04/14/17 14:00 136 04/14/17 12:00 98.7 102 15 89/59 98 04/14/17 12:00 102 04/14/17 10:00 80 04/14/17 08:49 96 Nasal Cannula 4.00 04/14/17 08:00 98.5 66 13 116/58 97 04/14/17 08:00 68 04/14/17 07:00 97 Nasal Cannula 4.00 04/14/17 06:00 67 04/14/17 04:00 98.3 60 12 113/55 97 04/14/17 04:00 60 04/14/17 02:00 64 04/14/17 00:17 96 Nasal Cannula 4.00 04/14/17 00:00 61 04/14/17 00:00 98.2 61 31 141/65 96 04/13/17 22:00 59 04/13/17 20:34 95 High Flow Nasal Cannula 15.00 30 04/13/17 20:00 98.5 68 21 117/61 93 04/13/17 20:00 68 04/13/17 19:00 65 04/13/17 19:00 Network Architect Manager 10.00 30 04/13/17 19:00 65 22 95 04/13/17 18:00 66 20 94 04/13/17 18:00 66 I/O 04/13/17 04/13/17 04/13/17 04/14/17 04/14/17 04/14/17 06:59 14:59 22:59 06:59 14:59 22:59 Intake Total 100 ml 600 ml 200 ml 480 ml Output Total 575 ml 900 ml 350 ml Balance -475 ml -300 ml -150 ml 480 ml Intake Oral 100 ml 600 ml 200 ml 480 ml IV Total 0 ml Output Urine Total 575 ml 900 ml 350 ml # Voids 3 # Bowel Movements 0 1 Result Diagram: 04/14/1752504/14/17525 Other Results Laboratory Tests Test 04/14/17 05:26 White Blood Count 3.8 Red Blood Count 2.67 Hemoglobin 8.2 Hematocrit 24.4 Mean Corpuscular Volume 91.5 Mean Corpuscular Hemoglobin 30.8 Mean Corpuscular Hemoglobin 33.7 Concent Red Cell Distribution Width 17.2 Platelet Count 66 Mean Platelet Volume 8.4 Neutrophils (%) (Auto) Lymphocytes (%) (Auto) Monocytes (%) (Auto) Eosinophils (%) (Auto) Basophils (%) (Auto) Neutrophils # (Auto) Lymphocytes # (Auto) Monocytes # (Auto) Eosinophils # (Auto) Basophils # (Auto) CBC Comment AUTO DIFF Differential Total Cells 100 Counted Neutrophils % (Manual) 46 Lymphocytes % 29 Monocytes % 15 Neutrophils # (Manual) 1.8 Myelocytes 2 Differential Comment FINAL DIFF MANUAL Blastocytes 8 Platelet Estimate LOW Platelet Morphology Comment ENLARGED Sodium Level 136 Potassium Level 3.5 Chloride Level 94 Carbon Dioxide Level 34.8 Anion Gap 7 Blood Urea Nitrogen 20 Creatinine 0.99 Estimat Glomerular Filtration 56 Rate Random Glucose 97 Calcium Level 8.4 Date/Time Procedure Status Source Growth 04/09/17 20:45 Cancelled Sputum Expectorated Sputum Physical Exam Physical Exam PHYSICAL EXAMINATION GENERAL: This is a well-developed, well-nourished [facility] female who appears to be in no acute distress. She is alert and awake.feeling much better HEAD: Normocephalic without any lesion or mass noted. Facial features appear symmetric. EYES: Perrla, Normal eye movement,-Icterus.- Conj congestion. OROPHARYNGEAL: Oropharynx without erythema or edema. MOUTH/THROAT: Tongue midline. Buccal mucosa is moist . NECK: Supple. No nuchal rigidity or lymphadenopathy. Trachea midline without deviation. Thyroid not palpable, no bruits appreciated. CARDIAC: Regular rhythm, regular rate, S1 and S2 are heard. Murmur-; no gallops or rubs. LUNGS: Clear to auscultation bilaterally. - wheeze, occ bibaislar rhonchi. No use of accessory muscles on inspiration or expiration. ABDOMEN: Soft, nontender, no organomegaly or masses. Bowel sounds are heard in all four quadrants. No rebound. No guarding. EXTREMITIES: trace edema. Pulses equal bilateral. no cyanosis. NEUROLOGICAL: Patient mood and affect appropriate. Cranial nerves II through XII grossly intact. Muscle strength 5/5 in the upper and lower extremities bilaterally. Deep tendon reflexes are 2+ in the upper and lower extremities bilaterally. SKIN:Warm and moist PSYCH: Mood and affect appropriate Date of Insertion: Apr 03, 2017 A/P Assessment and Plan (1) Sepsis (2) Anemia (3) Thrombocytopenia (4) Elevated white blood cell count (5) Pneumonia (6) CKD (chronic kidney disease) stage 3, GFR 30-59 ml/min (7) AML (acute myeloid leukemia) (8) Low blood pressure (9) Tachycardia (10) Hx TIA/stroke w/o resid (11) hx cerebral aneurysm (12) Atrial fibrillation with RVR Assessment/Plan Assessment/Plan Vital signs reviewed no fever, other trends normal Labs reviewed, anemia 8.1, thrombocytopenia 66, down from 78, K+ low, added PO dose , recheck in am, BUN 20 Assessment Acute myeloid leukemia, initially with severe leukocytosis, now having some leukopenia Fatty liver Right pleural effusion, small Sepsis Pneumonia, no change Hypoxemia Anemia Thrombocytopenia Obesity Acute kidney injury, improved Paroxysmal atrial tachycardia/atrial fibrillation,CVR noted, with medical management Left ventricular hypertrophy with normal EF History of TIA, chronic kidney disease, constipation, back pain, penicillin allergy, Degenerative disc disease Pneumonia left lower lobe Constipation Monitor bowel regimen, DC order for thomson catheter, O2 sat stable, Plan pneumonia, left lower lobe, improvements noted, still has small left lobe effusion Slow but gradual improvement noted continues, N0 SOB at rest or with conversation No more high flow oxygen, as per rn from last night on 4 lit NC and encouraged to turn cough and deep breathe Appreciate pulmonology input and consultation, continue to wean O2 to maintain O2 sats greater than 90. Aerosol treatments ID consult and follow, Constipation, around 6 days, good BM 04/14, . Appreciate oncology input First treatment finished on 81 1 Dacogen Remains anemic, stable at 8.1 and thrombocytopenic electrolytes monitor and replacement Appreciate palliative care input, patient is alternative code Degenerative disc disease, encourage patient to move about in bed and to be up out of bed with physical therapy Mild pain management if warranted Lovenox for DVT prophylaxis, but continue to monitor platelet count Alternative CODE STATUS noted Keep in ICU for now as she continues to be on high flow oxygen Discussed with RN Discussed with patient and her visitor overall stable will tx to 7th oncology floor encourage po intake labs for tomorrow Konrad Duffy MD Apr 14, 2017 17:29
[2017-04-14] MEDS: lamoTRIgine 25 MG TAB PO SCH (21:20)
[2017-04-15] VITALS (10 sets, daily range): BP systolic 101–131; BP diastolic 53–68; PULSE 63–74; RESP 18–22; TEMP 96.3–98.3; O2SAT 91–95
[2017-04-15] MEDS: LEVOTHYROXINE SODIUM 100 MCG TAB PO SCH (04:31)
[2017-04-15] MEDS: ACETAMINOPHEN/HYDROcodone 325 MG/10 MG TAB PO PRN ×2 (04:32→21:02)
[2017-04-15 05:40] LABS: HEMATOCRIT 22.3 % (35.0-46.0); MEAN CELL VOLUME 91.7 FL (80.0-100.0); MEAN CORPUSCULAR HEMOGLOBIN 31.6 PG (27.0-34.0); MEAN CORPUSCULAR HGB CONC 34.5 % (32.0-36.0); PLATELET COUNT 62 TH/MM3 (150-450); RED BLOOD COUNT 2.43 MIL/MM3 (4.00-5.30); RED CELL DISTRIBUTION WIDTH 17.2 % (11.6-17.2); WHITE BLOOD COUNT 4.9 TH/MM3 (4.0-11.0)
[2017-04-15 05:53] LABS: PROTHROMBIN TIME - PATIENT 11.4 SEC (9.8-11.6)
[2017-04-15 06:50] LABS: HEMO FLAGS AUTO DIFF
[2017-04-15 07:01] LABS: BLASTS 5 % (0-0); NEUTROPHIL # MANUAL DIFF 1.6 TH/MM3 (1.8-7.7); POLYS (SEG NEUTROPHILS) 32 % (16-70); WBC DIFF SAMPLE 100
[2017-04-15 07:02] LABS: PLATELET ESTIMATE SMEAR LOW (NORMAL); PLATELET MORPHOLOGY ENLARGED (NORMAL); SCAN/DIFF FINAL DIFF MANUAL
[2017-04-15] MEDS: POTASSIUM CHLORIDE 20 MEQ CONTROLLED RELEASE TAB PO SCH ×2 (09:00→21:01)
[2017-04-15] MEDS: DIGOXIN 0.125 MG TAB PO SCH (09:00)
[2017-04-15] MEDS: ATORVASTATIN 40 MG TAB PO SCH (09:00)
[2017-04-15] MEDS: AMIODARONE 200 MG TAB PO SCH (09:00)
[2017-04-15] MEDS: METOPROLOL TARTRATE 50 MG TAB PO SCH ×2 (09:00→21:01)
[2017-04-15] MEDS: ENOXAPARIN SODIUM 40 MG/0.4 ML SYRINGE SQ SCH (09:00)
[2017-04-15] MEDS: SODIUM CHLORIDE 0.9% FLUSH 10 ML FLUSH IV FLUSH SCH ×2 (09:00→21:03)
[2017-04-15] MEDS: FAMOTIDINE 20 MG TAB PO SCH ×2 (09:00→21:02)
[2017-04-15] MEDS: DOCUSATE SODIUM 50 MG/SENNA 8.6 MG TAB PO SCH (09:00)
[2017-04-15] MEDS: ALLOPURINOL 100 MG TAB PO SCH ×2 (09:00→21:02)
[2017-04-15] MEDS: FUROSEMIDE 20 MG/2 ML VIAL IV PUSH SCH ×2 (09:00→21:03)
[2017-04-15] MEDS: NYSTATIN SUSP 500,000 U/5 ML CUP SWISH-SWAL SCH ×4 (09:00→21:00)
--- NOTE | 2017-04-15 15:35 | HHI.PR ---
Subjective Remarks Resting in bed multiple family members in Seems to be enjoying the company Wearing her oxygen Discussed her bowel regimen (Constance Ramon) Objective Objective Results - Vital Signs Date Time Temp Pulse Resp B/P (MAP) Pulse Ox O2 Delivery O2 Flow Rate FiO2 04/15/17 12:00 96.3 68 22 101/53 (69) 91 04/15/17 12:00 71 04/15/17 08:46 93 Nasal Cannula 4.00 04/15/17 08:00 Nasal Cannula 4.00 04/15/17 08:00 97.3 70 21 131/58 (82) 92 04/15/17 08:00 64 04/15/17 05:32 18 04/15/17 04:06 67 04/15/17 04:00 97.2 72 19 129/68 (88) 93 04/14/17 23:30 97.9 61 18 133/63 (86) 98 04/14/17 22:55 60 04/14/17 22:00 66 04/14/17 20:45 96 Nasal Cannula 4.00 04/14/17 20:00 98.3 72 17 108/55 (72) 97 04/14/17 20:00 72 04/14/17 19:00 98 Nasal Cannula 4.00 04/14/17 18:00 75 04/14/17 16:00 98.5 79 20 102/56 (71) 95 04/14/17 16:00 106 33 94 04/14/17 16:00 106 I/O 04/14/17 04/14/17 04/14/17 04/15/17 04/15/17 04/15/17 07:00 15:00 23:00 07:00 15:00 23:00 Intake Total 200 ml 480 ml 500 ml 240 ml 480 ml Output Total 350 ml Balance -150 ml 480 ml 500 ml 240 ml 480 ml Intake Oral 200 ml 480 ml 500 ml 240 ml 480 ml IV Total 0 ml 0 ml Output Urine Total 350 ml # Voids 3 1 1 3 # Bowel Movements 2 1 (Constance aRmon) Result Diagram: 04/15/17 0350 04/14/17 0526 ROS General: Fatigue, Weakness, Other (10 point ROS done positives noted) Pulmonary: Cough (mild), SOB (exertional with O2 sats dropping) GI: Other (constipation 2 this admission) (Constance Ramon) Physical Exam Physical Exam PHYSICAL EXAMINATION GENERAL: This is an obese elderly [place] female who appears to be in no acute distress. She is alert and awake, HEAD: Normocephalic . Facial features appear symmetric. OROPHARYNGEAL: Oropharynx without erythema or edema. NECK: Supple. No nuchal rigidity or lymphadenopathy. Trachea midline without deviation. CARDIAC: Regular rhythm, regular rate, S1 and S2 are heard. LUNGS: Diminished at bases mild left side to auscultation occasional mild wheeze, ABDOMEN: Round, Soft, nontender, no organomegaly or masses. Bowel sounds active soft EXTREMITIES: No lower extremity edema. Pulses equal bilateral. NEUROLOGICAL: Patient mood and affect appropriate. SKIN:Warm and moist (Constance Ramon) A/P Assessment and Plan Acute myeloid leukemia, initially with severe leukocytosis, now having some leukopenia Fatty liver Right pleural effusion, small Sepsis Pneumonia, no change Hypoxemia Anemia Thrombocytopenia Obesity Acute kidney injury, improved Paroxysmal atrial tachycardia/atrial fibrillation,CVR noted, with medical management Left ventricular hypertrophy with normal EF History of TIA, chronic kidney disease, constipation, back pain, penicillin allergy, Degenerative disc disease Pneumonia left lower lobe Constipation Monitor bowel regimen, patient required enema and assistance with impaction yesterday. We'll place her on daily lactulose and monitor her BMs. Has had to have assistance 2 different times with complicated constipation. Plan pneumonia, left lower lobe, continues to gradually improve, oxygen per nasal cannula now 4 L Slow but gradual improvement noted continues, N0 SOB at rest or with conversation Appreciate pulmonology input and consultation, continue to wean O2 to maintain O2 sats greater than 90., Long cord placed on oxygen so she could go to the bathroom Will place patient on daily lactulose When ready for discharge patient will need walk test, and probable home O2 ID consult and follow, Constipation, around 6 days, good BM 04/14, . Appreciate oncology input First treatment finished on 81 1 Dacogen Remains anemic, stable at 8.1 and thrombocytopenic electrolytes monitor and replacement Appreciate palliative care input, patient is alternative code, continue supportive care Degenerative disc disease, physical therapy more aggressive now to assist in discharge planning Mild pain management if warranted Lovenox for DVT prophylaxis, but continue to monitor platelet count Alternative CODE STATUS noted Discussed with RN Discussed with patient and her family Discussed with Dr. Duffy, seen on his behalf (Constance Ramon) Assessment and Plan Patient seen and examined with family at bedside [id number] time spent with patient Labs reviewed Appreciate consultants help Off of antibiotic Improving slowly plan of care discussed with SOAPING MACHINE BACK TENDER (Konrad Duffy MD) Constance Ramon Apr 15, 2017 15:34 Konrad Duffy MD Apr 15, 2017 17:14
[2017-04-15] MEDS: lamoTRIgine 25 MG TAB PO SCH (21:01)
[2017-04-16] VITALS (9 sets, daily range): BP systolic 107–121; BP diastolic 56–68; PULSE 58–65; RESP 17–20; TEMP 96.1–97.3; O2SAT 94–98
[2017-04-16] MEDS: ACETAMINOPHEN/HYDROcodone 325 MG/10 MG TAB PO PRN ×5 (02:11→21:43)
[2017-04-16] MEDS: LEVOTHYROXINE SODIUM 100 MCG TAB PO SCH (06:22)
[2017-04-16 08:02] LABS: HEMATOCRIT 22.1 % (35.0-46.0); MEAN CELL VOLUME 91.1 FL (80.0-100.0); MEAN CORPUSCULAR HEMOGLOBIN 31.4 PG (27.0-34.0); MEAN CORPUSCULAR HGB CONC 34.5 % (32.0-36.0); PLATELET COUNT 71 TH/MM3 (150-450); RED BLOOD COUNT 2.43 MIL/MM3 (4.00-5.30); RED CELL DISTRIBUTION WIDTH 17.5 % (11.6-17.2); WHITE BLOOD COUNT 4.3 TH/MM3 (4.0-11.0)
[2017-04-16 08:10] LABS: HEMO FLAGS AUTO DIFF
[2017-04-16 08:30] LABS: BICARBONATE 34.4 MEQ/L (21.0-32.0); POTASSIUM 3.9 MEQ/L (3.5-5.1)
--- NOTE | 2017-04-16 08:43 | PD.ONC.PN ---
Subjective Subjective Remarks Patient seen and examined, vital signs, labs, medications and events over the weekend were reviewed. Over the weekend the patient was transferred from the ICU back to the oncology unit. Oxygen supplementation requirements have decreased, she is now on nasal cannula at a rate of 4-5 L/m. She tells me she has been up out of bed and ambulating more comfortably. She tells me her appetite continues to lag due to nausea. She denies having had fevers or chills. Objective Data Date Time Temp Pulse Resp B/P (MAP) Pulse Ox O2 Delivery O2 Flow Rate FiO2 04/16/17 07:50 18 04/16/17 04:04 58 04/16/17 04:00 96.8 64 17 119/65 (83) 95 04/16/17 00:16 65 04/16/17 00:00 96.6 60 18 121/68 (85) 95 04/15/17 23:32 95 Nasal Cannula 4.00 04/15/17 21:03 Nasal Cannula 4.00 30 04/15/17 20:03 63 04/15/17 20:00 98.3 70 18 122/62 (82) 95 04/15/17 16:45 98.1 66 20 112/58 (76) 95 04/15/17 16:00 74 04/15/17 12:00 96.3 68 22 101/53 (69) 91 04/15/17 12:00 71 04/15/17 08:46 93 Nasal Cannula 4.00 04/16/17 04/16/17 04/16/17 07:00 15:00 23:00 Intake Total 2 ml Balance 2 ml Result Diagram: 04/16/17 0628 04/16/17 0628 Laboratory Results Laboratory Tests Test 04/16/17 06:28 White Blood Count 4.3 TH/MM3 Red Blood Count 2.43 MIL/MM3 Hemoglobin 7.6 GM/DL Hematocrit 22.1 % Mean Corpuscular Volume 91.1 FL Mean Corpuscular Hemoglobin 31.4 PG Mean Corpuscular Hemoglobin Concent 34.5 % Red Cell Distribution Width 17.5 % Platelet Count 71 TH/MM3 Mean Platelet Volume 9.3 FL CBC Comment AUTO DIFF Blood Urea Nitrogen 18 MG/DL Creatinine 1.19 MG/DL Random Glucose 85 MG/DL Calcium Level 8.4 MG/DL Sodium Level 134 MEQ/L Potassium Level 3.9 MEQ/L Chloride Level 93 MEQ/L Carbon Dioxide Level 34.4 MEQ/L Anion Gap 7 MEQ/L Estimat Glomerular Filtration Rate 45 ML/MIN Administered Medications Medications (Trade) Dose Ordered Sig/Tylor Route PRN Reason Start Time Stop Time Status Last Admin Dose Admin Sodium Chloride (NS Flush) 2 ml BID IV FLUSH 03/26/17 09:00 04/15/17 21:03 Acetaminophen (Tylenol) 650 mg Q4H PRN PO TEMP > 100.4 03/25/17 23:15 03/30/17 08:26 Ondansetron HCl (Zofran Inj) 4 mg Q6H PRN IVP NAUSEA OR VOMITING 03/25/17 23:15 04/14/17 15:42 Acetaminophen (Tylenol) 650 mg Q6H PRN PO PAIN SCALE 1 TO 2 03/25/17 23:15 03/26/17 08:14 Temazepam (Restoril) 15 mg HS PRN PO insomnia 03/26/17 00:30 04/05/17 21:11 Allopurinol (Zyloprim) 100 mg BID PO 03/26/17 09:00 04/15/17 21:02 Nystatin (Mycostatin Liq) 5 ml QID SWISH-SWAL 03/26/17 18:00 04/15/17 09:00 Atorvastatin Calcium (Lipitor) 40 mg DAILY PO 03/28/17 09:00 04/15/17 09:00 Lamotrigine (LaMICtal) 50 mg HS PO 03/27/17 21:00 04/15/17 21:01 Levothyroxine Sodium (Synthroid) 100 mcg DAILY@06 PO 03/28/17 06:00 04/16/17 06:22 Acetaminophen/ Hydrocodone Bitart ([place] 10-325 Mg) 1 tab Q4H PRN PO PAIN 7-10 03/28/17 09:15 04/16/17 06:22 Lorazepam (Ativan) 1 mg Q6H PRN PO ANXIETY 03/28/17 09:15 Future Hold 04/03/17 06:52 Albuterol/ Ipratropium (Duoneb Neb) 1 ampule Q4HR NEB PRN NEB WHEEZING 03/31/17 12:00 04/09/17 20:22 Magnesium Hydroxide (Milk Of Magnesia Liq) 30 ml Q12H PRN PO SEE LABEL COMMENTS 03/31/17 14:00 04/14/17 09:40 Sennosides (Senokot) 17.2 mg Q12H PRN PO SEE LABEL COMMENTS 03/31/17 14:00 04/14/17 09:40 Bisacodyl (Dulcolax Supp) 10 mg DAILY PRN RECTAL SEE LABEL COMMENTS 03/31/17 14:00 04/14/17 09:40 Lactulose (Lactulose Liq) 30 ml DAILY PRN PO SEE LABEL COMMENTS 03/31/17 14:00 04/14/17 09:40 Metoprolol Tartrate (Lopressor Inj) 2.5 mg Q2H PRN IV PUSH tachycardia 04/02/17 20:15 04/04/17 22:42 Potassium Phosphate (K-Phos) 2,000 mg Q4H PRN PO For Phosphorus < 2.5 mg/dL 04/03/17 08:30 04/03/17 14:23 Digoxin (Lanoxin) 0.125 mg DAILY PO 04/04/17 09:00 04/15/17 09:00 Metoprolol Tartrate (Lopressor) 50 mg BID PO 04/04/17 21:00 04/15/17 21:01 Amiodarone HCl (Cordarone) 200 mg DAILY PO 04/04/17 09:00 04/15/17 09:00 Enoxaparin Sodium (Lovenox Inj) 40 mg Q24H SQ 04/05/17 09:00 04/15/17 09:00 Furosemide (Lasix Inj) 20 mg BID IV PUSH 04/08/17 21:00 04/15/17 21:03 Famotidine (Pepcid) 20 mg BID PO 04/12/17 21:00 04/15/17 21:02 Potassium Chloride (KCl) 20 meq Q12HR PO 04/13/17 21:00 04/15/17 21:01 Alprazolam (Xanax) 0.25 mg TID PRN PO ANXIETY 04/14/17 15:15 04/14/17 15:42 Objective Remarks GENERAL PHYSICAL APPEARANCE: Ms. Richard is a middle-aged female, she is Sitting up on the side of the bed bed and is in no acute distress. She is able to speak to me in full sentences. HEENT: Head is atraumatic, normocephalic, conjunctivae are pale. Sclerae are anicteric, EOMI, PERRLA. ORAL EXAM: She has thrush no longer apparent. NECK: No cervical lymphadenopathy. RESPIRATORY: Decreased bibasilar breath sounds left greater than right. Some crackles noted. CARDIOVASCULAR: regular rhythm, regular rate, distant sounding heart sounds. rubs or gallops. She does have a systolic murmur heard over the aortic area. ABDOMEN: Obese belly, soft and nontender, nondistended. No palpable organ enlargement. Tympanic to percussion. LOWER EXTREMITIES: No pretibial edema or calf tenderness. MUSCULOSKELETAL: Adequate muscle mass, tone and strength. Assessment/Plan Problem List: (1) AML (acute myeloid leukemia) ICD Codes: C92.00 - Acute myeloblastic leukemia, not having achieved remission Status: Acute Plan: --s/p treatment with Dacogen --Bone marrow biopsy indicates findings consistent with AML. FLT-3, CEPBA and NPM-1 analysis pending to help us prognosticate further. -- poor candidate for intensive induction remission therapy with anthracycline/ Cytarabine or HiDAC due to her cardiac and pulmonary issues and borderline performance status. --on allopurinol for tumor lysis prophylaxis (2) Atrial fibrillation with RVR ICD Codes: I48.91 - Unspecified atrial fibrillation Status: Acute Plan: -- A. fib with RVR associated with transient chest pain: --on amiodarone, Digoxin Assessment Ms. Richard is a 66-year-old female with a 3-week history of progressive malaise, fatigue and weakness. She reports soreness of the throat and a dry cough, both of which have been chronic. She presented to the emergency department for further workup and management because her symptoms of fatigue progressed to the point where she had difficulty walking from her bedroom to her restroom. She called EMS last night due to the severity of the symptoms. Blood work performed in the emergency department indicates findings consistent with anemia, thrombocytopenia, her WBCs are grossly abnormal with findings of numerous immature cells and blasts in the peripheral circulation. 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 Peripheral smear was formally reviewed by our hematocrit pathologist who assessed the findings to be consistent with a high- grade myeloid malignancy most consistent with acute myeloid leukemia. Plan 1. 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 Counts are low specifically the hemoglobin and platelet counts but stable. 2. Afib w/ RVR: in sinus rhythm and rate controlled. on Amiodarone, digoxin 3. Respiratory: breathing significantly improved. off all antibiotics. afebrile. Now on 4L O2 via NC. 4. DVT prophylaxis: continue Lovenox. will d/c when platelets fall to less than 50K. 5. Constipation: will try PRN laxatives today, if these are ineffective, may need to try another enema. Disposition: I have encouraged the patient to try to ambulate more, I've encouraged her to try to eat the best she can and to continue oxygen weaning. From a hematologic standpoint, she may be discharged either home or to rehabilitation. Outpatient therapy and monitoring of blood counts will be initiated at the time of discharge. Problem Qualifiers (1) AML (acute myeloid leukemia): Roberto Yarbrough MD Apr 16, 2017 08:43
[2017-04-16] MEDS: LACTULOSE SYRUP 20 GM/30 ML CUP PO SCH (09:00)
[2017-04-16] MEDS: NYSTATIN SUSP 500,000 U/5 ML CUP SWISH-SWAL SCH ×4 (09:00→21:00)
[2017-04-16 09:08] LABS: BLASTS 4 % (0-0); CORRECTED NUCLEATED RBC 2 /100 WBC (0-0); NEUTROPHIL # MANUAL DIFF 2.3 TH/MM3 (1.8-7.7); OVALOCYTES 1+ (NORMAL); PLATELET ESTIMATE SMEAR LOW (NORMAL); PLATELET MORPHOLOGY NORMAL (NORMAL); POLYS (SEG NEUTROPHILS) 54 % (16-70); TEARDROP RBCS 1+ (NORMAL); WBC DIFF SAMPLE 100
[2017-04-16 09:09] LABS: SCAN/DIFF FINAL DIFF MANUAL
[2017-04-16] MEDS: ONDANSETRON HCL 4 MG/2 ML VIAL IVP PRN (09:20)
[2017-04-16] MEDS: FUROSEMIDE 20 MG/2 ML VIAL IV PUSH SCH ×2 (09:21→21:42)
[2017-04-16] MEDS: SODIUM CHLORIDE 0.9% FLUSH 10 ML FLUSH IV FLUSH SCH ×2 (09:24→21:41)
[2017-04-16] MEDS: ATORVASTATIN 40 MG TAB PO SCH (11:27)
[2017-04-16] MEDS: POTASSIUM CHLORIDE 20 MEQ CONTROLLED RELEASE TAB PO SCH ×2 (11:28→21:00)
[2017-04-16] MEDS: ALLOPURINOL 100 MG TAB PO SCH ×2 (11:28→21:50)
[2017-04-16] MEDS: AMIODARONE 200 MG TAB PO SCH (11:28)
[2017-04-16] MEDS: FAMOTIDINE 20 MG TAB PO SCH ×2 (11:28→21:43)
[2017-04-16] MEDS: METOPROLOL TARTRATE 50 MG TAB PO SCH ×2 (11:28→21:43)
[2017-04-16] MEDS: DIGOXIN 0.125 MG TAB PO SCH (11:28)
[2017-04-16] MEDS: ENOXAPARIN SODIUM 40 MG/0.4 ML SYRINGE SQ SCH (11:29)
--- NOTE | 2017-04-16 14:14 | HHI.PR ---
Subjective Remarks Resting in bed multiple family members in Seems to be enjoying the company Wearing her oxygen Discussed her bowel regimen (Constance Ramon) Objective Objective Results - Vital Signs Date Time Temp Pulse Resp B/P (MAP) Pulse Ox O2 Delivery O2 Flow Rate FiO2 04/16/17 08:00 96.1 65 20 121/64 (83) 94 04/16/17 07:50 18 04/16/17 04:04 58 04/16/17 04:00 96.8 64 17 119/65 (83) 95 04/16/17 00:16 65 04/16/17 00:00 96.6 60 18 121/68 (85) 95 04/15/17 23:32 95 Nasal Cannula 4.00 04/15/17 21:03 Nasal Cannula 4.00 30 04/15/17 20:03 63 04/15/17 20:00 98.3 70 18 122/62 (82) 95 04/15/17 16:45 98.1 66 20 112/58 (76) 95 04/15/17 16:00 74 I/O 04/15/17 04/15/17 04/15/17 04/16/17 04/16/17 04/16/17 06:59 14:59 22:59 06:59 14:59 22:59 Intake Total 240 ml 480 ml 240 ml 2 ml Balance 240 ml 480 ml 240 ml 2 ml Intake Oral 240 ml 480 ml 240 ml 2 ml # Voids 1 3 2 1 # Bowel Movements 1 2 1 (Constance Ramon) Result Diagram: 04/16/1728 04/16/17 0628 ROS General: Other (10 point ROS done positives noted) Pulmonary: SOB (controlled) GI: BM (constipation resolved) Neuro/MS: Other (debility) (Constance Ramon) Physical Exam Physical Exam PHYSICAL EXAMINATION GENERAL: This is a obese well-nourished [place] female who appears to be in no acute distress. She is alert and awake, mild anxiety HEAD: Normocephalic without any lesion or mass noted. Facial features appear symmetric. OROPHARYNGEAL: Oropharynx without erythema or edema. NECK: Supple. No nuchal rigidity or lymphadenopathy. Trachea midline without deviation. CARDIAC: Regular rhythm, regular rate, S1 and S2 are heard. LUNGS: Mild diminished to auscultation bilaterally. Wearing oxygen at all times No use of accessory muscles on inspiration or expiration. ABDOMEN: Soft, nontender, no organomegaly or masses. Bowel sounds are heard in all four quadrants. No rebound. No guarding. EXTREMITIES: no edema. Pulses equal bilateral. NEUROLOGICAL: Patient mood and affect appropriate. Anxiety SKIN:Warm and moist (Constance Ramon) A/P Assessment and Plan Acute myeloid leukemia, initially with severe leukocytosis, now having some leukopenia Fatty liver Right pleural effusion, small Sepsis Pneumonia, no change Hypoxemia Anemia Thrombocytopenia Obesity Acute kidney injury, improved Paroxysmal atrial tachycardia/atrial fibrillation,CVR noted, with medical management Left ventricular hypertrophy with normal EF History of TIA, chronic kidney disease, constipation, back pain, penicillin allergy, Degenerative disc disease Pneumonia left lower lobe Constipation Monitor bowel regimen, patient required enema and assistance with impaction yesterday. BM again late yesterday, lactulose daily and or when necessary Plan pneumonia, left lower lobe, continues to gradually improve, oxygen per nasal cannula, no acute shortness of breath noted. Walks study ordered today Appreciate pulmonology input and consultation, continue to wean O2 to maintain O2 sats greater than 90., Long cord placed on oxygen so she could go to the bathroom, need input on discharge planning Possible today or tomorrow Will place patient on daily lactulose When ready for discharge patient will need walk test, and probable home O2 ID consult and follow, Constipation, around 6 days, good BM 04/14, . Appreciate oncology input First treatment finished on 81 1 Dacogen Remains anemic, stable at 8.1 and thrombocytopenic electrolytes monitor and replacement, okay for DC and follow-up as outpatient Appreciate palliative care input, patient is alternative code, continue supportive care Degenerative disc disease, physical therapy more aggressive now to assist in discharge planning Mild pain management if warranted, will need physical therapy for input on home with physical therapy versus snf rehabilitation Lovenox for DVT prophylaxis, but continue to monitor platelet count Alternative CODE STATUS noted Discussed with RN Discussed with patient and her family Discussed with Dr. Glasgow, seen on his behalf (Constance Ramon) Assessment and Plan pt is seen &Examined chart reviewed dr og's input appreciated d/w pt & her sister d/w constance agree w above will f/u (Grayson Glasgow MD) Constance Ramon Apr 16, 2017 14:14 Grayson Glasgow MD Apr 16, 2017 17:20
--- NOTE | 2017-04-16 18:00 | HHI.PR ---
Subjective Remarks 66 YO [place] female with Resp insuff, Myeloid leukemia had Chemo mild sob Appetite fair Weaned to 4LNC Objective Vital Signs Vital Signs Date Time Temp Pulse Resp B/P (MAP) Pulse Ox O2 Delivery O2 Flow Rate FiO2 04/16/17 16:58 97.3 60 20 107/56 (73) 96 04/16/17 13:55 4.00 04/16/17 12:58 18 04/16/17 08:00 96.1 65 20 121/64 (83) 94 04/16/17 04:04 58 04/16/17 04:00 96.8 64 17 119/65 (83) 95 04/16/17 00:16 65 04/16/17 00:00 96.6 60 18 121/68 (85) 95 04/15/17 23:32 95 Nasal Cannula 4.00 04/15/17 21:03 Nasal Cannula 4.00 30 04/15/17 20:03 63 04/15/17 20:00 98.3 70 18 122/62 (82) 95 I/O 04/15/17 04/15/17 04/15/17 04/16/17 04/16/17 04/16/17 07:00 15:00 23:00 07:00 15:00 23:00 Intake Total 240 ml 480 ml 240 ml 2 ml Balance 240 ml 480 ml 240 ml 2 ml Intake Oral 240 ml 480 ml 240 ml 2 ml # Voids 1 3 2 1 # Bowel Movements 1 2 1 Result Diagram: 04/16/1762704/16/17627 Objective Remarks GENERAL: WBWn Female, mild sob SKIN: Warm and dry. HEAD: Normocephalic. EYES: No scleral icterus. No injection or drainage. NECK: Supple, trachea midline. No JVD or lymphadenopathy. CARDIOVASCULAR: Regular rate and rhythm without murmurs, gallops, or rubs. RESPIRATORY: Breath sounds equal bilaterally. No accessory muscle use. GASTROINTESTINAL: Abdomen soft, non-tender, nondistended. MUSCULOSKELETAL: No cyanosis, or edema. BACK: Nontender without obvious deformity. No CVA tenderness. A/P Assessment and Plan Resp Insuff Hypoxia Left basal infilt myeloid Leukemia HTN Partial sz PLAN: Supplement 02 with 4LNC Wean 02 to keep sat >90% Aerosol nebs Jorge Simpson MD Apr 16, 2017 18:00
[2017-04-16] MEDS: lamoTRIgine 25 MG TAB PO SCH (21:43)
[2017-04-17] VITALS (8 sets, daily range): BP systolic 102–132; BP diastolic 52–70; PULSE 67–81; RESP 16–18; TEMP 96.8–97.9; O2SAT 94–96
[2017-04-17] MEDS: ACETAMINOPHEN/HYDROcodone 325 MG/10 MG TAB PO PRN ×2 (04:51→21:24)
[2017-04-17] MEDS: LEVOTHYROXINE SODIUM 100 MCG TAB PO SCH (04:51)
[2017-04-17 08:20] LABS: HEMATOCRIT 23.5 % (35.0-46.0); MEAN CELL VOLUME 92.4 FL (80.0-100.0); MEAN CORPUSCULAR HEMOGLOBIN 31.4 PG (27.0-34.0); PLATELET COUNT 88 TH/MM3 (150-450); RED BLOOD COUNT 2.55 MIL/MM3 (4.00-5.30); RED CELL DISTRIBUTION WIDTH 18.2 % (11.6-17.2); WHITE BLOOD COUNT 4.1 TH/MM3 (4.0-11.0)
[2017-04-17 08:28] LABS: HEMO FLAGS AUTO DIFF
[2017-04-17 08:41] LABS: BICARBONATE 32.6 MEQ/L (21.0-32.0); POTASSIUM 3.9 MEQ/L (3.5-5.1)
--- NOTE | 2017-04-17 08:54 | PD.ONC.PN ---
Subjective Subjective Remarks Patient seen and examined, vital signs, labs and medications were reviewed. Her son participated in this encounter over the telephone by speakerphone. Subjectively, she reports feeling better, she is extremely anxious about being discharged home and tells me the thought of going home and thought a feeding makes her very nauseated. Her oxygen requirements have been weaned down to 2 L/m by nasal cannula. She has ambulated out of bed independently and has been eating a little bit better, she tells me she is mostly eating fruits. She denies fevers or chills. She denies overt bleeding. She denies diarrhea, hematochezia or melena, she denies chest pain PND or orthopnea. Objective Data Date Time Temp Pulse Resp B/P (MAP) Pulse Ox O2 Delivery O2 Flow Rate FiO2 04/17/17 08:00 97.6 78 18 129/64 (85) 95 04/17/17 04:45 94 Nasal Cannula 2.00 04/17/17 04:00 96.8 67 17 125/64 (84) 94 04/17/17 00:00 97.0 72 16 107/61 (76) 95 04/16/17 23:06 16 04/16/17 21:41 Nasal Cannula 4.00 04/16/17 21:14 97.0 63 18 114/60 (78) 95 04/16/17 21:10 95 Nasal Cannula 2.00 04/16/17 20:58 98 Nasal Cannula 4.00 04/16/17 16:58 97.3 60 20 107/56 (73) 96 04/16/17 13:55 4.00 04/17/17 04/17/17 04/17/17 07:00 15:00 23:00 Intake Total 240 ml Balance 240 ml Result Diagram: 04/17/17 0751 04/17/17 0751 Laboratory Results Laboratory Tests Test 04/17/17 07:51 White Blood Count 4.1 TH/MM3 Red Blood Count 2.55 MIL/MM3 Hemoglobin 8.0 GM/DL Hematocrit 23.5 % Mean Corpuscular Volume 92.4 FL Mean Corpuscular Hemoglobin 31.4 PG Mean Corpuscular Hemoglobin Concent 34.0 % Red Cell Distribution Width 18.2 % Platelet Count 88 TH/MM3 Mean Platelet Volume 8.6 FL CBC Comment AUTO DIFF Blood Urea Nitrogen 15 MG/DL Creatinine 1.26 MG/DL Random Glucose 99 MG/DL Calcium Level 8.9 MG/DL Sodium Level 135 MEQ/L Potassium Level 3.9 MEQ/L Chloride Level 93 MEQ/L Carbon Dioxide Level 32.6 MEQ/L Anion Gap 9 MEQ/L Estimat Glomerular Filtration Rate 42 ML/MIN Administered Medications Medications (Trade) Dose Ordered Sig/Tylor Route PRN Reason Start Time Stop Time Status Last Admin Dose Admin Sodium Chloride (NS Flush) 2 ml BID IV FLUSH 03/26/17 09:00 04/16/17 21:41 Acetaminophen (Tylenol) 650 mg Q4H PRN PO TEMP > 100.4 03/25/17 23:15 03/30/17 08:26 Ondansetron HCl (Zofran Inj) 4 mg Q6H PRN IVP NAUSEA OR VOMITING 03/25/17 23:15 04/16/17 09:20 Acetaminophen (Tylenol) 650 mg Q6H PRN PO PAIN SCALE 1 TO 2 03/25/17 23:15 03/26/17 08:14 Temazepam (Restoril) 15 mg HS PRN PO insomnia 03/26/17 00:30 04/05/17 21:11 Allopurinol (Zyloprim) 100 mg BID PO 03/26/17 09:00 04/16/17 21:50 Nystatin (Mycostatin Liq) 5 ml QID SWISH-SWAL 03/26/17 18:00 04/15/17 09:00 Atorvastatin Calcium (Lipitor) 40 mg DAILY PO 03/28/17 09:00 04/16/17 11:27 Lamotrigine (LaMICtal) 50 mg HS PO 03/27/17 21:00 04/16/17 21:43 Levothyroxine Sodium (Synthroid) 100 mcg DAILY@06 PO 03/28/17 06:00 04/17/17 04:51 Acetaminophen/ Hydrocodone Bitart ([place] 10-325 Mg) 1 tab Q4H PRN PO PAIN 7-10 03/28/17 09:15 04/17/17 04:51 Lorazepam (Ativan) 1 mg Q6H PRN PO ANXIETY 03/28/17 09:15 Future Hold 04/03/17 06:52 Albuterol/ Ipratropium (Duoneb Neb) 1 ampule Q4HR NEB PRN NEB WHEEZING 03/31/17 12:00 04/09/17 20:22 Magnesium Hydroxide (Milk Of Magnesia Liq) 30 ml Q12H PRN PO SEE LABEL COMMENTS 03/31/17 14:00 04/14/17 09:40 Sennosides (Senokot) 17.2 mg Q12H PRN PO SEE LABEL COMMENTS 03/31/17 14:00 04/14/17 09:40 Bisacodyl (Dulcolax Supp) 10 mg DAILY PRN RECTAL SEE LABEL COMMENTS 03/31/17 14:00 04/14/17 09:40 Lactulose (Lactulose Liq) 30 ml DAILY PRN PO SEE LABEL COMMENTS 03/31/17 14:00 04/14/17 09:40 Metoprolol Tartrate (Lopressor Inj) 2.5 mg Q2H PRN IV PUSH tachycardia 04/02/17 20:15 04/04/17 22:42 Digoxin (Lanoxin) 0.125 mg DAILY PO 04/04/17 09:00 04/16/17 11:28 Metoprolol Tartrate (Lopressor) 50 mg BID PO 04/04/17 21:00 04/16/17 21:43 Amiodarone HCl (Cordarone) 200 mg DAILY PO 04/04/17 09:00 04/16/17 11:28 Enoxaparin Sodium (Lovenox Inj) 40 mg Q24H SQ 04/05/17 09:00 04/16/17 11:29 Furosemide (Lasix Inj) 20 mg BID IV PUSH 04/08/17 21:00 04/16/17 21:42 Famotidine (Pepcid) 20 mg BID PO 04/12/17 21:00 04/16/17 21:43 Potassium Chloride (KCl) 20 meq Q12HR PO 04/13/17 21:00 04/16/17 11:28 Alprazolam (Xanax) 0.25 mg TID PRN PO ANXIETY 04/14/17 15:15 04/14/17 15:42 Objective Remarks GENERAL PHYSICAL APPEARANCE: Ms. Richard is a middle-aged female, she is Sitting up on the side of the bed bed and is in no acute distress. She is able to speak to me in full sentences. HEENT: Head is atraumatic, normocephalic, conjunctivae are pale. Sclerae are anicteric, EOMI, PERRLA. ORAL EXAM: She has thrush no longer apparent. NECK: No cervical lymphadenopathy. RESPIRATORY: Decreased bibasilar breath sounds left greater than right. Some crackles noted. CARDIOVASCULAR: regular rhythm, regular rate, distant sounding heart sounds. rubs or gallops. She does have a systolic murmur heard over the aortic area. ABDOMEN: Obese belly, soft and nontender, nondistended. No palpable organ enlargement. Tympanic to percussion. LOWER EXTREMITIES: No pretibial edema or calf tenderness. MUSCULOSKELETAL: Adequate muscle mass, tone and strength. Assessment/Plan Problem List: (1) AML (acute myeloid leukemia) ICD Codes: C92.00 - Acute myeloblastic leukemia, not having achieved remission Status: Acute Plan: --s/p treatment with Dacogen --Bone marrow biopsy indicates findings consistent with AML. FLT-3, CEPBA and NPM-1 analysis pending to help us prognosticate further. -- poor candidate for intensive induction remission therapy with anthracycline/ Cytarabine or HiDAC due to her cardiac and pulmonary issues and borderline performance status. --on allopurinol for tumor lysis prophylaxis (2) Atrial fibrillation with RVR ICD Codes: I48.91 - Unspecified atrial fibrillation Status: Acute Plan: -- A. fib with RVR associated with transient chest pain: --on amiodarone, Digoxin Assessment Ms. Richard is a 66-year-old female with a 3-week history of progressive malaise, fatigue and weakness. She reports soreness of the throat and a dry cough, both of which have been chronic. She presented to the emergency department for further workup and management because her symptoms of fatigue progressed to the point where she had difficulty walking from her bedroom to her restroom. She called EMS last night due to the severity of the symptoms. Blood work performed in the emergency department indicates findings consistent with anemia, thrombocytopenia, her WBCs are grossly abnormal with findings of numerous immature cells and blasts in the peripheral circulation. 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 Peripheral smear was formally reviewed by our hematocrit pathologist who assessed the findings to be consistent with a high- grade myeloid malignancy most consistent with acute myeloid leukemia. Plan 1. 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 Remains anemic and thrombocytopenic, platelet counts slightly improved today. Will await her counts to plateau before resuming systemic therapy. Cycle #2 should be an outpatient treatment. 2. Afib w/ RVR: in sinus rhythm and rate controlled. on Amiodarone, digoxin. 3. Respiratory: breathing significantly improved. off all antibiotics. afebrile. Now on 2L O2 via NC. She will likely need outpatient option supplementation to be arranged. 4. DVT prophylaxis: continue Lovenox. will d/c when platelets fall to less than 50K. 5. Constipation: will try PRN laxatives today, if these are ineffective, may need to try another enema. Disposition: I have encouraged the patient to try to ambulate more, I've encouraged her to try to eat the best she can and to continue oxygen weaning. From a hematologic standpoint, she may be discharged either home or to rehabilitation. Outpatient therapy and monitoring of blood counts will be initiated at the time of discharge. I will arrange outpatient follow-up with me at my [facility] clinic on 04/19/2017, my office will recheck her with the time of the visit. I will resume outpatient CBC checks at that time. Problem Qualifiers (1) AML (acute myeloid leukemia): Roberto Yarbrough MD Apr 17, 2017 08:54
[2017-04-17] MEDS: SODIUM CHLORIDE 0.9% FLUSH 10 ML FLUSH IV FLUSH SCH ×2 (08:59→21:00)
[2017-04-17] MEDS: FUROSEMIDE 20 MG/2 ML VIAL IV PUSH SCH ×2 (09:00→21:33)
[2017-04-17] MEDS: ENOXAPARIN SODIUM 40 MG/0.4 ML SYRINGE SQ SCH (09:02)
[2017-04-17 09:06] LABS: BLASTS 7 % (0-0); NEUTROPHIL # MANUAL DIFF 2.5 TH/MM3 (1.8-7.7); OVALOCYTES 1+ (NORMAL); PLATELET ESTIMATE SMEAR LOW (NORMAL); PLATELET MORPHOLOGY NORMAL (NORMAL); POLYS (SEG NEUTROPHILS) 61 % (16-70); SCAN/DIFF FINAL DIFF MANUAL; TEARDROP RBCS 1+ (NORMAL); WBC DIFF SAMPLE 100
[2017-04-17] MEDS: ONDANSETRON HCL 4 MG/2 ML VIAL IVP PRN (09:41)
[2017-04-17] MEDS: AMIODARONE 200 MG TAB PO SCH (12:11)
[2017-04-17] MEDS: LACTULOSE SYRUP 20 GM/30 ML CUP PO SCH (12:12)
[2017-04-17] MEDS: POTASSIUM CHLORIDE 20 MEQ CONTROLLED RELEASE TAB PO SCH ×2 (12:12→21:00)
[2017-04-17] MEDS: DIGOXIN 0.125 MG TAB PO SCH (12:14)
[2017-04-17] MEDS: FAMOTIDINE 20 MG TAB PO SCH ×2 (12:15→21:00)
[2017-04-17] MEDS: ATORVASTATIN 40 MG TAB PO SCH (12:15)
[2017-04-17] MEDS: METOPROLOL TARTRATE 50 MG TAB PO SCH ×2 (12:15→21:00)
[2017-04-17] MEDS: NYSTATIN SUSP 500,000 U/5 ML CUP SWISH-SWAL SCH ×4 (12:16→21:00)
[2017-04-17] MEDS: ALLOPURINOL 100 MG TAB PO SCH ×2 (12:16→21:25)
[2017-04-17] MEDS: PROCHLORPERAZINE INJ 10 MG/2 ML VIAL IV PUSH PRN ×2 (13:24→20:03)
--- NOTE | 2017-04-17 17:10 | HHI.PR ---
Subjective History of Present Illness Remain weak Able to ambulate short distance with walker Poor appetite/ oral intake is marginal Breathing is okay Denies chest pain No cough or sputum production No fever or chills No abdominal pain No diarrhea Offers no other complaints Sister is at bedside Review of Systems Constitutional Constitutional: Weakness Pulmonary Respiratory: Shortness of Breath (exertional, sometimes has low volumes) GI/Abdomen GI/Abdominal Exam: Constipation, Abdominal Pain (bloating) Musculoskeletal MS: Weakness Psychiatric Psychiatric: Normal Mood, Anxiety (mild) Vitals/Results Intake & Output 04/17/17 04/17/17 04/18/17 15:00 23:00 07:00 Intake Total 240 ml Balance 240 ml Intake Oral 240 ml # Voids 3 1 # Bowel Movements 1 Vital Signs Vital Signs Date Time Temp Pulse Resp B/P (MAP) Pulse Ox O2 Delivery O2 Flow Rate FiO2 04/17/17 16:00 97.7 75 18 127/70 (89) 95 04/17/17 12:15 Nasal Cannula 2.00 04/17/17 12:00 69 04/17/17 12:00 97.3 81 18 132/68 (89) 96 04/17/17 11:13 3.00 04/17/17 08:00 68 04/17/17 08:00 97.6 78 18 129/64 (85) 95 04/17/17 04:45 94 Nasal Cannula 2.00 04/17/17 04:00 96.8 67 17 125/64 (84) 94 04/17/17 00:00 97.0 72 16 107/61 (76) 95 04/16/17 23:06 16 04/16/17 21:41 Nasal Cannula 4.00 04/16/17 21:14 97.0 63 18 114/60 (78) 95 04/16/17 21:10 95 Nasal Cannula 2.00 04/16/17 20:58 98 Nasal Cannula 4.00 CBC/BMP: 04/17/17 0751 04/17/17 0751 Lab Results Laboratory Tests Test 04/17/17 07:51 White Blood Count 4.1 TH/MM3 Red Blood Count 2.55 MIL/MM3 Hemoglobin 8.0 GM/DL Hematocrit 23.5 % Mean Corpuscular Volume 92.4 FL Mean Corpuscular Hemoglobin 31.4 PG Mean Corpuscular Hemoglobin Concent 34.0 % Red Cell Distribution Width 18.2 % Platelet Count 88 TH/MM3 Mean Platelet Volume 8.6 FL CBC Comment AUTO DIFF Differential Total Cells Counted 100 Neutrophils % (Manual) 61 % Lymphocytes % 28 % Monocytes % 4 % Neutrophils # (Manual) 2.5 TH/MM3 Differential Comment FINAL DIFF MANUAL Blastocytes 7 % Platelet Estimate LOW Platelet Morphology Comment NORMAL Tear Drop Cells 1+ Ovalocytes 1+ Blood Urea Nitrogen 15 MG/DL Creatinine 1.26 MG/DL Random Glucose 99 MG/DL Calcium Level 8.9 MG/DL Sodium Level 135 MEQ/L Potassium Level 3.9 MEQ/L Chloride Level 93 MEQ/L Carbon Dioxide Level 32.6 MEQ/L Anion Gap 9 MEQ/L Estimat Glomerular Filtration Rate 42 ML/MIN Physical Exam General General Appearance: Well Developed, Well Nourished, No Acute Distress, Obese Eyes Eye Exam: Pupils Equal, Pupils Reactive, Sclera White Ears & Nose Ears & Nose Exam: Nasal Mucosa [place] (pale) Throat Throat Exam: Oral Mucosa [place] & Moist (pale) Neck Neck Exam: Neck Supple, Trachea Midline Pulmonary Resp Exam: Breath Sounds Equal, No Distress, Decreased Bases Cardiology CV Exam: Regular, Normal Sinus Rhythm, Good Perfusion Gastrointestinal/Abdomen GI Exam: Soft, Non-Tender, Bowel Sounds Present Integumentary Skin Exam: Warm, Dry Extremeties Extremities Exam: No Edema, Pedal Pulses Palpable Neurologic Neuro Exam: Alert, Awake, Oriented, Speech Clear, Moving All Extremities Psychiatric Psych Exam: Appropriate Responses VTE Prophylaxis VTE Prophylaxis Device: SCDs VTE Prophylaxis Meds: Lovenox Assessment/Plan Problem List: (1) Sepsis ICD Codes: A41.9 - Sepsis, unspecified organism Status: Acute (2) Anemia ICD Codes: D64.9 - Anemia, unspecified Status: Acute (3) Thrombocytopenia ICD Codes: D69.6 - Thrombocytopenia, unspecified Status: Acute (4) Elevated white blood cell count ICD Codes: D72.829 - Elevated white blood cell count, unspecified Status: Acute (5) Pneumonia ICD Codes: J18.9 - Pneumonia, unspecified organism Status: Acute (6) CKD (chronic kidney disease) stage 3, GFR 30-59 ml/min ICD Codes: N18.3 - Chronic kidney disease, stage 3 (moderate) Status: Chronic (7) AML (acute myeloid leukemia) ICD Codes: C92.00 - Acute myeloblastic leukemia, not having achieved remission Status: Acute (8) Low blood pressure ICD Codes: I95.9 - Hypotension, unspecified Status: Acute (9) Tachycardia ICD Codes: R00.0 - Tachycardia, unspecified Status: Acute (10) Hx TIA/stroke w/o resid ICD Codes: Z86.73 - Personal history of transient ischemic attack (TIA), and cerebral infarction without residual deficits Status: Acute (11) hx cerebral aneurysm Status: Acute (12) Atrial fibrillation with RVR ICD Codes: I48.91 - Unspecified atrial fibrillation Status: Acute Assessment/Plan Patient not a candidate for induction chemotherapy for AML due to comorbid condition per Dr. Yarbrough Status post Dacogen, Next cycle will be given as an outpatient once her physical condition improved Stable white cell count and hemoglobin, platelet counts are improving Encourage by mouth intake Add Marinol control her nausea and posterior appetite Continue amiodarone and digoxin Medical: Negative for anticoagulant due to her thrombocytopenia. Continue current medication Daily PT SS for discharge planning, patient lives by herself, will benefit from alf facility placement Possible DC to SNF in a.m. if remains stable, discussed with patient case manager Discussed with patient and her sister Will follow Problem Qualifiers (1) Sepsis: (2) Anemia: (3) Elevated white blood cell count: (4) Pneumonia: (5) AML (acute myeloid leukemia): (6) Low blood pressure: Grayson Glasgow MD Apr 17, 2017 17:10
--- NOTE | 2017-04-17 19:24 | HHI.PR ---
Subjective Remarks 66 YO [place] female with Resp insuff, Myeloid leukemia mild sob Appetite fair Weaned to 4LNC Has nausea Objective Vital Signs Vital Signs Date Time Temp Pulse Resp B/P (MAP) Pulse Ox O2 Delivery O2 Flow Rate FiO2 04/17/17 16:00 97.7 75 18 127/70 (89) 95 04/17/17 12:15 Nasal Cannula 2.00 04/17/17 12:00 69 04/17/17 12:00 97.3 81 18 132/68 (89) 96 04/17/17 11:13 3.00 04/17/17 08:00 68 04/17/17 08:00 97.6 78 18 129/64 (85) 95 04/17/17 04:45 94 Nasal Cannula 2.00 04/17/17 04:00 96.8 67 17 125/64 (84) 94 04/17/17 00:00 97.0 72 16 107/61 (76) 95 04/16/17 23:06 16 04/16/17 21:41 Nasal Cannula 4.00 04/16/17 21:14 97.0 63 18 114/60 (78) 95 04/16/17 21:10 95 Nasal Cannula 2.00 04/16/17 20:58 98 Nasal Cannula 4.00 I/O 04/16/17 04/16/17 04/16/17 04/17/17 04/17/17 04/17/17 07:00 15:00 23:00 07:00 15:00 23:00 Intake Total 2 ml 240 ml Balance 2 ml 240 ml Intake Oral 2 ml 240 ml # Voids 1 1 3 1 # Bowel Movements 1 1 Result Diagram: 04/17/17 0751 04/17/17 0751 Objective Remarks GENERAL: WBWn Female, mild sob SKIN: Warm and dry. HEAD: Normocephalic. EYES: No scleral icterus. No injection or drainage. NECK: Supple, trachea midline. No JVD or lymphadenopathy. CARDIOVASCULAR: Regular rate and rhythm without murmurs, gallops, or rubs. RESPIRATORY: Breath sounds equal bilaterally. No accessory muscle use. GASTROINTESTINAL: Abdomen soft, non-tender, nondistended. MUSCULOSKELETAL: No cyanosis, or edema. BACK: Nontender without obvious deformity. No CVA tenderness. A/P Assessment and Plan Resp Insuff Hypoxia Left basal infilt myeloid Leukemia HTN Partial sz PLAN: Supplement 02 with 4LNC Wean 02 to keep sat >90% Aerosol nebs Zofran and Compazine prn DC plans underway Jorge Thibodeaux MD Apr 17, 2017 19:24
[2017-04-17] MEDS: lamoTRIgine 25 MG TAB PO SCH (21:00)
[2017-04-18] VITALS (7 sets, daily range): BP systolic 81–135; BP diastolic 48–68; PULSE 68–106; RESP 18–20; TEMP 96.7–97.9; O2SAT 91–93
[2017-04-18] MEDS: ONDANSETRON HCL 4 MG/2 ML VIAL IVP PRN ×3 (04:00→18:28)
[2017-04-18] MEDS: ACETAMINOPHEN/HYDROcodone 325 MG/10 MG TAB PO PRN ×3 (04:00→17:59)
[2017-04-18] MEDS: LEVOTHYROXINE SODIUM 100 MCG TAB PO SCH (06:28)
[2017-04-18 06:55] LABS: MEAN CELL VOLUME 92.1 FL (80.0-100.0); MEAN CORPUSCULAR HEMOGLOBIN 31.4 PG (27.0-34.0); MEAN CORPUSCULAR HGB CONC 34.1 % (32.0-36.0); PLATELET COUNT 91 TH/MM3 (150-450); RED BLOOD COUNT 2.39 MIL/MM3 (4.00-5.30); RED CELL DISTRIBUTION WIDTH 17.9 % (11.6-17.2); WHITE BLOOD COUNT 3.4 TH/MM3 (4.0-11.0)
[2017-04-18 07:01] LABS: HEMO FLAGS AUTO DIFF
[2017-04-18 07:24] LABS: BICARBONATE 34.3 MEQ/L (21.0-32.0); POTASSIUM 3.8 MEQ/L (3.5-5.1)
[2017-04-18] MEDS: NYSTATIN SUSP 500,000 U/5 ML CUP SWISH-SWAL SCH ×3 (09:00→18:00)
[2017-04-18] MEDS: POTASSIUM CHLORIDE 20 MEQ CONTROLLED RELEASE TAB PO SCH (09:00)
[2017-04-18 09:37] LABS: BLASTS 4 % (0-0); MYELOCYTES 6 % (0-0); NEUTROPHIL # MANUAL DIFF 1.9 TH/MM3 (1.8-7.7); POLYS (SEG NEUTROPHILS) 50 % (16-70); WBC DIFF SAMPLE 100
[2017-04-18 09:38] LABS: HYPERSEGMENTED POLYS 1+ (NORMAL); PLATELET ESTIMATE SMEAR LOW (NORMAL); PLATELET MORPHOLOGY NORMAL (NORMAL); SCAN/DIFF FINAL DIFF MANUAL
[2017-04-18] MEDS: SODIUM CHLORIDE 0.9% FLUSH 10 ML FLUSH IV FLUSH SCH (09:54)
[2017-04-18] MEDS: PROCHLORPERAZINE INJ 10 MG/2 ML VIAL IV PUSH PRN ×2 (10:34→18:00)
--- NOTE | 2017-04-18 11:05 | HHI.PR ---
Subjective Subjective Remarks awake, oriented x 3 weak but motivated to go to rehab and get stronger persistent nausea, did not take meds no vomiting no abd pain had BM appetite poor no cp no sob tele reviewed, SR no fever Review of Systems Constitutional Constitutional Remarks 12 point review of systems completed, negative except as noted above Musculoskeletal MS: Weakness Vitals/Results Vital Signs Vital Signs Date Time Temp Pulse Resp B/P (MAP) Pulse Ox O2 Delivery O2 Flow Rate FiO2 04/18/17 07:50 96.8 75 20 109/62 (78) 92 04/18/17 05:28 18 04/18/17 04:00 97.1 84 20 135/65 (88) 91 04/18/17 00:00 97.2 76 18 124/68 (86) 92 04/17/17 22:35 95 Nasal Cannula 2.00 04/17/17 21:00 80 04/17/17 21:00 95 Nasal Cannula 2.00 30 04/17/17 20:00 97.9 77 18 102/52 (69) 95 04/17/17 16:00 79 04/17/17 16:00 97.7 75 18 127/70 (89) 95 04/17/17 12:15 Nasal Cannula 2.00 04/17/17 12:00 69 04/17/17 12:00 97.3 81 18 132/68 (89) 96 04/17/17 11:13 3.00 CBC/BMP: 04/18/17 0626 04/18/17 0626 Lab Results Laboratory Tests Test 04/18/17 06:26 White Blood Count 3.4 TH/MM3 Red Blood Count 2.39 MIL/MM3 Hemoglobin 7.5 GM/DL Hematocrit 22.0 % Mean Corpuscular Volume 92.1 FL Mean Corpuscular Hemoglobin 31.4 PG Mean Corpuscular Hemoglobin Concent 34.1 % Red Cell Distribution Width 17.9 % Platelet Count 91 TH/MM3 Mean Platelet Volume 8.9 FL CBC Comment AUTO DIFF Differential Total Cells Counted 100 Neutrophils % (Manual) 50 % Lymphocytes % 34 % Monocytes % 6 % Neutrophils # (Manual) 1.9 TH/MM3 Myelocytes 6 % Differential Comment FINAL DIFF MANUAL Hypersegmented Polys 1+ Blastocytes 4 % Platelet Estimate LOW Platelet Morphology Comment NORMAL Blood Urea Nitrogen 15 MG/DL Creatinine 1.19 MG/DL Random Glucose 82 MG/DL Calcium Level 8.7 MG/DL Sodium Level 136 MEQ/L Potassium Level 3.8 MEQ/L Chloride Level 94 MEQ/L Carbon Dioxide Level 34.3 MEQ/L Anion Gap 8 MEQ/L Estimat Glomerular Filtration Rate 45 ML/MIN Physical Exam General General Appearance: Well Developed, Well Nourished, No Acute Distress, Obese Eyes Eye Exam: Pupils Equal, Pupils Reactive, Sclera White Ears & Nose Ears & Nose Exam: Nasal Mucosa [place] Throat Throat Exam: Oral Mucosa [place] & Moist Neck Neck Exam: Neck Supple, Trachea Midline Pulmonary Resp Exam: Breath Sounds Equal, No Distress, Decreased Bases Cardiology CV Exam: Regular, Normal Sinus Rhythm, Good Perfusion Gastrointestinal/Abdomen GI Exam: Soft, Non-Tender, Bowel Sounds Present, Non-Distended Musculoskeletal MS Exam: Joints Intact Integumentary Skin Exam: Warm, Dry Extremeties Extremities Exam: No Edema, Pedal Pulses Palpable Neurologic Neuro Exam: Alert, Awake, Oriented, Speech Clear, Moving All Extremities, No Focal Deficits Psychiatric Psych Exam: Appropriate Responses VTE Prophylaxis VTE Prophylaxis Device: SCDs VTE Prophylaxis Meds: Lovenox Assessment/Plan Problem List: (1) Sepsis ICD Codes: A41.9 - Sepsis, unspecified organism Status: Resolved (2) Anemia ICD Codes: D64.9 - Anemia, unspecified Status: Acute (3) Thrombocytopenia ICD Codes: D69.6 - Thrombocytopenia, unspecified Status: Acute (4) Elevated white blood cell count ICD Codes: D72.829 - Elevated white blood cell count, unspecified Status: Resolved (5) Pneumonia ICD Codes: J18.9 - Pneumonia, unspecified organism Status: Resolved (6) CKD (chronic kidney disease) stage 3, GFR 30-59 ml/min ICD Codes: N18.3 - Chronic kidney disease, stage 3 (moderate) Status: Chronic (7) AML (acute myeloid leukemia) ICD Codes: C92.00 - Acute myeloblastic leukemia, not having achieved remission Status: Acute (8) Low blood pressure ICD Codes: I95.9 - Hypotension, unspecified Status: Resolved (9) Tachycardia ICD Codes: R00.0 - Tachycardia, unspecified Status: Resolved (10) Hx TIA/stroke w/o resid ICD Codes: Z86.73 - Personal history of transient ischemic attack (TIA), and cerebral infarction without residual deficits Status: Resolved (11) hx cerebral aneurysm Status: Resolved (12) Atrial fibrillation with RVR ICD Codes: I48.91 - Unspecified atrial fibrillation Status: Acute Assessment/Plan Patient not a candidate for induction chemotherapy for AML due to comorbid condition per Dr. Yarbrough Status post Dacogen, Next cycle will be given as an outpatient once her physical condition improved HH 7.5/22, will give one unit PRBC today, d/w ANGEL Lopez Plat stable 91 Encourage by mouth intake continue Marinol control her nausea and inc appetite continue antiemetics PRN SR on monitor Continue amiodarone and digoxin Negative for anticoagulant due to her thrombocytopenia. continue PT, inc. activity CM for dc planning, agreeable with SNF placement Discharge to SNF after PRBC transfusion repeat labs at facility see [id number] f/u Dr. Yarbrough, card, PCP diet-heart healthy activity-as tolerated D/W RN D/W Dr. Glasgow D/W ANGEL Rees D/W CM This patient was seen by myself and Dr. Glasgow, this note is written on his behalf. Discharge Minutes: 45 Problem Qualifiers (1) Sepsis: (2) Anemia: (3) Elevated white blood cell count: (4) Pneumonia: (5) AML (acute myeloid leukemia): (6) Low blood pressure: Tina Blair Apr 18, 2017 11:05
[2017-04-18] MEDS ORDERED: NYST1000 SWISH-SWAL (11:09)
[2017-04-18] MEDS ORDERED: ALLO100 PO (11:09)
[2017-04-18] MEDS ORDERED: IPRASOL NEB (11:09)
[2017-04-18] MEDS ORDERED: AMIO200T PO (11:09)
[2017-04-18] MEDS ORDERED: ATOR40TA16 PO (11:09)
[2017-04-18] MEDS ORDERED: DIGO0.12 PO (11:09)
--- NOTE | 2017-04-18 11:13 | HHI.DCPOC ---
Discharge Care Plan Diagnosis: (1) AML (acute myeloid leukemia) (2) CKD (chronic kidney disease) stage 3, GFR 30-59 ml/min (3) Pneumonia (4) Sepsis (5) Low blood pressure (6) Tachycardia (7) Acute respiratory failure (8) Debility (9) Shortness of breath (10) Atrial fibrillation with RVR Your Health Problems Are: Chest Pain Cough Shortness of Breath Goals to Promote Your Health * To prevent worsening of your condition and complications * To maintain your health at the optimal level Directions to Meet Your Goals Take your medications as prescribed Follow your dietary instruction Follow activity as directed Keep your appointments as scheduled Take your immunizations and boosters as scheduled If your symptoms worsen call your PCP, if no PCP go to Urgent Care Center or Emergency Room Smoking is Dangerous to Your Health. Avoid second hand smoke Call the 24-hour hour crisis hotline for domestic abuse at Tina Blair. [facility] Apr 18, 2017 11:13
[2017-04-18] MEDS ORDERED: FUROSEMIDE 20 MG/2 ML VIAL IV ONE (11:15)
[2017-04-18] MEDS ORDERED: SODIUM CHLOR 0.9% 250 ML INJ 250 ML IV ONE (11:15)
[2017-04-18] MEDS ORDERED: ZOFR4TAB3 SL (11:16)
[2017-04-18] MEDS: METOPROLOL TARTRATE 50 MG TAB PO SCH (11:30)
[2017-04-18] MEDS: FAMOTIDINE 20 MG TAB PO SCH (11:30)
[2017-04-18] MEDS: ALLOPURINOL 100 MG TAB PO SCH (11:31)
[2017-04-18] MEDS: DIGOXIN 0.125 MG TAB PO SCH (11:31)
[2017-04-18] MEDS: ENOXAPARIN SODIUM 40 MG/0.4 ML SYRINGE SQ SCH (11:32)
[2017-04-18] MEDS: AMIODARONE 200 MG TAB PO SCH (11:32)
[2017-04-18] MEDS: ATORVASTATIN 40 MG TAB PO SCH (11:32)
[2017-04-18] MEDS: LACTULOSE SYRUP 20 GM/30 ML CUP PO SCH (11:33)
[2017-04-18] MEDS: DRONABINOL 5 MG CAP PO SCH ×2 (11:36→16:00)
[2017-04-18] MEDS ORDERED: HYDR-3288 PO (13:23)
[2017-04-18] MEDS ORDERED: ALPR.25 PO (13:23)
[2017-04-18] MEDS ORDERED: DRON5CAP PO (13:26)
[2017-04-18] MEDS ORDERED: diphenhydrAMINE HCL 50 MG/ML VIAL ONE (14:23)
[2017-04-18] MEDS ORDERED: ACETAMINOPHEN 325 MG TAB PO ONE (14:30)
[2017-04-18] MEDS ORDERED: diphenhydrAMINE HCL 25 MG CAP PO ONE (14:30)
--- NOTE | 2017-04-18 18:40 | HHI.DS ---
Discharge Summary Admission Date Mar 25, 2017 at 23:01 Discharge Date: Apr 18, 2017 Admitting Diagnosis Pneumonia, sepsis (1) AML (acute myeloid leukemia) ICD Codes: C92.00 - Acute myeloblastic leukemia, not having achieved remission Status: Acute (2) Shortness of breath ICD Codes: R06.02 - Shortness of breath Status: Acute (3) Acute respiratory failure ICD Codes: J96.00 - Acute respiratory failure, unspecified whether with hypoxia or hypercapnia Status: Acute (4) Debility ICD Codes: R53.81 - Other malaise Status: Acute (5) Sepsis ICD Codes: A41.9 - Sepsis, unspecified organism Status: Resolved (6) Tachycardia ICD Codes: R00.0 - Tachycardia, unspecified Status: Resolved (7) Low blood pressure ICD Codes: I95.9 - Hypotension, unspecified Status: Resolved (8) Pneumonia ICD Codes: J18.9 - Pneumonia, unspecified organism Status: Resolved (9) Elevated white blood cell count ICD Codes: D72.829 - Elevated white blood cell count, unspecified Status: Resolved (10) Hx TIA/stroke w/o resid ICD Codes: Z86.73 - Personal history of transient ischemic attack (TIA), and cerebral infarction without residual deficits Status: Resolved (11) Atrial fibrillation with RVR ICD Codes: I48.91 - Unspecified atrial fibrillation Status: Acute (12) hx cerebral aneurysm Status: Resolved (13) Hypertension ICD Codes: I10 - Essential (primary) hypertension Status: Acute (14) Chest pain ICD Codes: R07.9 - Chest pain, unspecified Status: Acute (15) Paroxysmal atrial fibrillation ICD Codes: I48.0 - Paroxysmal atrial fibrillation Status: Acute (16) CKD (chronic kidney disease) stage 3, GFR 30-59 ml/min ICD Codes: N18.3 - Chronic kidney disease, stage 3 (moderate) Status: Chronic (17) Thrombocytopenia ICD Codes: D69.6 - Thrombocytopenia, unspecified Status: Acute (18) Anemia ICD Codes: D64.9 - Anemia, unspecified Status: Acute (19) Seizure cerebral ICD Codes: I67.89 - Other cerebrovascular disease Status: Acute CBC/BMP: 04/18/17 0626 04/18/17 0626 Significant Findings Laboratory Tests Test 04/16/17 06:28 04/17/17 07:51 04/18/17 06:26 Red Blood Count 2.43 MIL/MM3 (4.00-5.30) 2.55 MIL/MM3 (4.00-5.30) 2.39 MIL/MM3 (4.00-5.30) Hemoglobin 7.6 GM/DL (11.6-15.3) 8.0 GM/DL (11.6-15.3) 7.5 GM/DL (11.6-15.3) Hematocrit 22.1 % (35.0-46.0) 23.5 % (35.0-46.0) 22.0 % (35.0-46.0) Red Cell Distribution Width 17.5 % (11.6-17.2) 18.2 % (11.6-17.2) 17.9 % (11.6-17.2) Platelet Count 71 TH/MM3 (150-450) 88 TH/MM3 (150-450) 91 TH/MM3 (150-450) Nucleated Red Blood Cells 2 /100 WBC (0-0) Blastocytes 4 % (0-0) 7 % (0-0) 4 % (0-0) Platelet Estimate LOW (NORMAL) LOW (NORMAL) LOW (NORMAL) Tear Drop Cells 1+ (NORMAL) 1+ (NORMAL) Ovalocytes 1+ (NORMAL) 1+ (NORMAL) Creatinine 1.19 MG/DL (0.50-1.00) 1.26 MG/DL (0.50-1.00) 1.19 MG/DL (0.50-1.00) Calcium Level 8.4 MG/DL (8.5-10.1) Sodium Level 134 MEQ/L (136-145) 135 MEQ/L (136-145) Chloride Level 93 MEQ/L (98-107) 93 MEQ/L (98-107) 94 MEQ/L (98-107) Carbon Dioxide Level 34.4 MEQ/L (21.0-32.0) 32.6 MEQ/L (21.0-32.0) 34.3 MEQ/L (21.0-32.0) Estimat Glomerular Filtration Rate 45 ML/MIN (>89) 42 ML/MIN (>89) 45 ML/MIN (>89) White Blood Count 3.4 TH/MM3 (4.0-11.0) Myelocytes 6 % (0-0) Hypersegmented Polys 1+ (NORMAL) Imaging Last Impressions Abdomen X-Ray 04/09/17 0000 Signed Impressions: Service Date/Time: Sunday, April 09, 2017 14:49 - CONCLUSION: Limited study. No gross pneumoperitoneum. Yared Lamar Jr., MD Chest X-Ray 04/08/17 0600 Signed Impressions: Service Date/Time: Saturday, April 08, 2017 03:47 - CONCLUSION: 1. Minimal bibasilar densities with scarring left upper lobe. 2. Small left pleural effusion. Beau Winter MD Chest CT 04/07/17 0000 Signed Impressions: Service Date/Time: Friday, April 07, 2017 12:28 - CONCLUSION: 1. Dense consolidation in the left lower lobe with air bronchograms most characteristic of pneumonia. 2. Small bilateral pleural effusions. 3. The mild cardiomegaly with small amount of pericardial fluid. Balaji Solorio MD Gall Bladder Ultrasound 04/06/17 0000 Signed Impressions: Service Date/Time: Thursday, April 06, 2017 17:45 - CONCLUSION: 1. Fatty liver. Right pleural effusion. No gallstones or biliary ductal dilatation. Rivas Tejeda MD Bone Biopsy CT 03/26/17 0000 Signed Impressions: Service Date/Time: Sunday, March 26, 2017 14:48 - CONCLUSION: 1. Uncomplicated CT guided bone marrow aspirate. 2. Uncomplicated CT guided bone marrow biopsy. Raoul Jeffries MD Lumbar Spine CT 03/25/172131 Signed Impressions: Service Date/Time: Sunday, March 26, 2017 01:12 - CONCLUSION: 1. Degenerative disc changes greatest at the L4-5 and L5-S1 levels with broad-based disc osteophyte complexes. There is lateral recess stenosis at the L5-S1 level. 2. Mild retrolisthesis of L5 on S1 with degenerative disc change and broad-based disc osteophyte complex. 3. Narrowing of the neuroforamina bilaterally at the L4-5 and L5-S1 levels. 4. Degenerative disc change. Balaji Solorio MD CT Angiography 03/25/172128 Signed Impressions: Service Date/Time: Sunday, March 26, 2017 01:09 - CONCLUSION: 1. Mild consolidation along the left fissure and lower lobe. This could indicate early pneumonia. 2. No evidence of pulmonary embolism. Balaji Solorio MD Hospital Course This is a pleasant 66-year-old female who had not felt well for several weeks. She stated on February 21 she underwent epidural steroid injection for right-sided low back pain which was radiating down the right leg. She had another procedure done on March 06. She was due for another one on March [address] Stern, the pain management doctor but was unable to go because she was so short of breath. She stated, over the last two weeks, she had increasing shortness of breath and poor appetite. She was bringing up white to rubio sputum. She developed chest pain mainly in the left chest described as a burning and sharp pain. It was more in the upper chest, kind of radiates around the neck and the back and then down to the mid-chest. It is there with exertion but not at rest. She has had some chills but no fever, no nausea or vomiting. She has not complained of nausea, vomiting or diarrhea. She is not having unilateral weakness, numbness or paresthesias in the legs. She is not having loss of bowel or bladder control. She is feeling worse and thus decided to seek medical attention. She had already been on steroids, prednisone 10 mg per day for the past month but she did not feel like this was helping her. In in the ED, she was evaluated. INVESTIGATIONS White count is 30.2, hemoglobin is 9.6, platelets are 67, monocytes are 14, myelocytes are 14, promyelocytes are 5, blast cells are 23. Sed rate was 74. INR is 1. D-dimer is at 2.88. BUN 30, creatinine 1.46, GFR is 36, glucose random was 184, calcium 7.8. Troponins negative. C-reactive protein is 9.1. BNP is 185. Total protein is 6, BUN is 2.6, lipase is 303, lactic acid was 1.9. Urinalysis shows moderate occult blood, glucose trace, WBC 43; culture is indicated. CHEST X-RAY Partially consolidated left lower lobe infiltrates. Blood cultures are pending. Urine cultures are pending. Initially admitted for: 1. Early sepsis on admission. 2. Left-sided pneumonia. 3. Leukocytosis. 4. Anemia and thrombocytopenia with high myelocytes, promyelocytes and blast cells. 5. Chronic kidney disease. 6. Protein calorie malnutrition. 7. Elevated sed rate and C-reactive protein. 8. Hypertension. 9. History of four small cerebral aneurysms being monitored medically. 10. Recent epidural steroid injections into the lumbar spine for back pain. During the course of the hospitalization, the following events took place: Patient admitted for severe pneumonia, put on antibiotics, supplemental oxygen, breathing treatments. Oncology was consulted due to her abnormal CBC. Further imaging studies were completed. Patient had a protracted hospitalization. She will require consultations with oncology, pulmonology, cardiology, infectious disease, medical care and palliative care. She was initially septic secondary to pneumonia, cultures were followed, remained negative. Oncology evaluated, had bone marrow biopsy on 03/26/2017. Biopsy was positive for AML. She was started on allopurinol as she was noted with elevated uric acid. There was concern of tumor lysis syndrome. Unfortunately, as the plans were being made to start on chemotherapy, patient was found with persistent hypotension and then went into A. fib with RVR with chest pain. She required transfer to [facility], cardiology was consulted and she was started on amiodarone drip. Echocardiogram was ordered with results as noted. She was initially unable to start beta blockers stool to low blood pressure She required multiple fluid boluses to improve blood pressure She was eventually transferred back to the seventh floor once her heart rate in atrial fibrillation as well as blood pressure stabilized She was initiated on Dacogen per oncology recommendations. Unfortunately, patient went into respiratory distress and A. fib with RVR and required transfer to ICU. Critical care was consulted to assist with management During her ICU stay, patient require initiation of Cardizem drip. Oxygen needs increase and she was put on 100% nonrebreather. Pulmonology was also consulted to assist with management Palliative care was consulted to assist with clarification of goals of care. CODE STATUS was made DNR/DNI. Oncology continue to follow patient, Dacogen treatment was continued. Patient continued to require high flow oxygen, a repeat CT of the chest was done as well as a -D echo. Patient did improve slowly in the ICU, critical care signed off. She was titrated to a few liters of oxygen She was mobilized, physical therapy was ordered. She did have problems with constipation and require bowel regimen Her pain was managed appropriately Cardiology continued to follow patient, she was eventually put on amiodarone, digoxin and Lopressor. No long-term anticoagulation was recommended due to risk of bleeding. She was put on Lovenox for DVT prophylaxis, her platelets remained stable Patient did require transfusion of blood during hospitalization, hemoglobin went down to 7. Patient was eventually transferred back to oncology floor She completed antibiotics. Patient remained weak, poor appetite. Marinol was initiated. She was continued on anti-emetics as needed Case management was consulted for discharge planning. Oncology cleared for discharge, recommended that patient follow up as outpatient once her counts and her strength improved to continue treatment. Patient and family decided for rehabilitation placement. Patient was discharge in stable condition to rehabilitation facility. Pt Condition on Discharge: Fair Discharge Disposition: Discharge to SNF Discharge Instructions DIET: Follow Instructions for: Heart Healthy Diet Activities you can perform: Weight Bearing as Nuno Follow up Referrals: Cardiology with Alfie Jefferson MD Oncology with OUSMANE HARMON PCP Follow-up New Medications: Hydrocodone-Acetaminophen (Racine) 7.5-325 mg Tab 1 TAB PO Q4H PRN for PAIN, #42 TAB 0 Refills Ondansetron Odt (Zofran Odt) 4 Mg Tab 4 MG SL Q6HR PRN for Nausea/Vomiting, #30 TAB 0 Refills Allopurinol (Zyloprim) 100 Mg Tab 100 MG PO BID for TUMOR LYSIS SYNDROME for 30 Days, #60 TAB Alprazolam (Xanax) 0.25 Mg Tab 0.25 MG PO TID PRN for ANXIETY for 7 Days, #21 TAB 0 Refills Amiodarone (Amiodarone) 200 Mg Tab 200 MG PO DAILY for IRREGULAR HEART BEAT for 30 Days, #30 TAB Digoxin (Digoxin) 0.125 Mg Tab 0.125 MG PO DAILY for IRREGULAR HEART BEAT for 30 Days, #30 TAB Dronabinol (Dronabinol) 5 Mg Cap 5 MG PO BID@11,16 for boost appetite for 30 Days, #60 CAP 0 Refills Ipratropium-Albuterol Neb (Duoneb) 0.5-2.5 Mg/3 Ml Neb 1 AMPULE NEB Q4HR NEB PRN for WHEEZING, #30 ML Nystatin Liq (Nystatin Liq) 100,000 unit/ml Susp 5 ML SWISH-SWAL QID for ORAL SORES for 30 Days, #120 CONTAINER Continued Medications: Atenolol (Atenolol) 50 Mg Tab 50 MG PO BID for Blood Pressure Management, #60 TAB 0 Refills Atorvastatin (Atorvastatin) 40 Mg Tab 40 MG PO DAILY for Cholesterol Management for 30 Days, #30 TAB 0 Refills (This prescription has been renewed) Lamotrigine (Lamictal) 100 Mg Tab 50 MG PO HS for Control Seizures, #60 TAB 0 Refills Levothyroxine (Levothyroxine) 100 Mcg Tab 100 MCG PO DAILY for Thyroid, #30 TAB 0 Refills Lisinopril-Hctz (Zestoretic) 20-12.5 Mg Tab 1 TAB PO BID for Blood Pressure Management, #30 TAB 0 Refills Terazosin (Terazosin) 5 Mg Cap 5 MG PO AC DINNER, #30 CAP 0 Refills Discontinued Medications: Lorazepam (Lorazepam) 1 Mg Tab 1 MG PO Q6H PRN for ANXIETY, TAB 0 Refills Oxycodone-Acetaminophen (Percocet) 5-325 mg Tab 1 TAB PO Q6H PRN for PAIN, TAB 0 Refills Tina Blair [facility] Apr 18, 2017 18:40
--- NOTE | 2017-04-18 18:58 | HHI.PR ---
Subjective Remarks 66 YO [place] female with Resp insuff, Myeloid leukemia mild sob Appetite fair Weaned to 4LNC Objective Vital Signs Vital Signs Date Time Temp Pulse Resp B/P (MAP) Pulse Ox O2 Delivery O2 Flow Rate FiO2 04/18/17 15:50 96.7 69 20 104/63 (77) 91 04/18/17 15:15 97.9 68 20 81/48 92 04/18/17 14:52 96.7 69 20 104/63 91 04/18/17 11:50 97.7 106 20 110/63 (79) 93 04/18/17 09:30 95 Nasal Cannula 2.00 30 04/18/17 07:50 96.8 75 20 109/62 (78) 92 04/18/17 05:28 18 04/18/17 04:00 97.1 84 20 135/65 (88) 91 04/18/17 00:00 97.2 76 18 124/68 (86) 92 04/17/17 22:35 95 Nasal Cannula 2.00 04/17/17 21:00 80 04/17/17 21:00 95 Nasal Cannula 2.00 30 04/17/17 20:00 97.9 77 18 102/52 (69) 95 I/O 04/17/17 04/17/17 04/17/17 04/18/17 04/18/17 04/18/17 06:59 14:59 22:59 06:59 14:59 22:59 Intake Total 240 ml 240 ml 240 ml 900 ml 260 ml Balance 240 ml 240 ml 240 ml 900 ml 260 ml Intake Oral 240 ml 240 ml 240 ml 900 ml Packed Cells 250 ml Blood Product IV Normal Saline Flush 10 ml # Voids 1 3 2 2 3 # Bowel Movements 1 1 Result Diagram: 04/18/1762504/18/17625 Objective Remarks GENERAL: WBWn Female, mild sob SKIN: Warm and dry. HEAD: Normocephalic. EYES: No scleral icterus. No injection or drainage. NECK: Supple, trachea midline. No JVD or lymphadenopathy. CARDIOVASCULAR: Regular rate and rhythm without murmurs, gallops, or rubs. RESPIRATORY: Breath sounds equal bilaterally. No accessory muscle use. GASTROINTESTINAL: Abdomen soft, non-tender, nondistended. MUSCULOSKELETAL: No cyanosis, or edema. BACK: Nontender without obvious deformity. No CVA tenderness. A/P Assessment and Plan Resp Insuff Hypoxia Left basal infilt myeloid Leukemia HTN Partial sz PLAN: Supplement 02 with 4LNC Wean 02 to keep sat >90% Aerosol nebs DC plans for SNF Jorge Thibodeaux MD Apr 18, 2017 18:58
[2017-04-18] MEDS ORDERED: FAMOTIDINE 20 MG TAB PO SCH (21:00)
[2017-04-27] MEDS ORDERED: GABA100C4 PO (12:36)
== END 2017-04-18 19:00 | DRG 834 ==
LOC: NEPE 19:59 → NEDA 23:01 → NEDH 03-26 03:42 → HOCB 03-26 10:01 → HOCA 03-26 10:16 → HOCB 03-26 10:17 → HOCA 03-27 14:24 → HCIN 03-28 12:20 → HOCB 03-30 12:15 → HOCA 03-30 15:41 → HIMN 03-31 10:20 → HOCB 04-14 22:28
PROVIDERS: ADMIT Specialist; ATTEND Specialist
PROC: 3E0F7GC Introduction of Other Therapeutic Substance into Respiratory Tract, Via Natural or Artificial Opening (ICD-10-PCS; 2017-03-25)
PROC: 07DR3ZX Extraction of Iliac Bone Marrow, Percutaneous Approach, Diagnostic (ICD-10-PCS; principal; 2017-03-26)
PROC: 3E03305 Introduction of Other Antineoplastic into Peripheral Vein, Percutaneous Approach (ICD-10-PCS; 2017-03-30)
PROC: 0T9B70Z Drainage of Bladder with Drainage Device, Via Natural or Artificial Opening (ICD-10-PCS; 2017-03-31)
PROC: 30233N1 Transfusion of Nonautologous Red Blood Cells into Peripheral Vein, Percutaneous Approach (ICD-10-PCS; 2017-04-09)
DX: C92.00 Acute myeloblastic leukemia, not having achieved remission (principal); A41.9 Sepsis, unspecified organism; J96.01 Acute respiratory failure with hypoxia; N17.9 Acute kidney failure, unspecified; J18.9 Pneumonia, unspecified organism; J90 Pleural effusion, not elsewhere classified; I95.9 Hypotension, unspecified; E87.3 Alkalosis; D61.818 Other pancytopenia; J44.0 Chronic obstructive pulmonary disease with (acute) lower respiratory infection; E44.1 Mild protein-calorie malnutrition; I69.359 Hemiplegia and hemiparesis following cerebral infarction affecting unspecified side; G40.89 Other seizures; K86.1 Other chronic pancreatitis; I47.1 Supraventricular tachycardia; B37.0 Candidal stomatitis; J98.11 Atelectasis; I67.1 Cerebral aneurysm, nonruptured; N18.3 Chronic kidney disease, stage 3 (moderate); M54.40 Lumbago with sciatica, unspecified side; E03.9 Hypothyroidism, unspecified; E78.5 Hyperlipidemia, unspecified; F41.9 Anxiety disorder, unspecified; Z87.891 Personal history of nicotine dependence; I12.9 Hypertensive chronic kidney disease with stage 1 through stage 4 chronic kidney disease, or unspecified chronic kidney disease; G89.4 Chronic pain syndrome; E78.00 Pure hypercholesterolemia, unspecified; I25.2 Old myocardial infarction; E66.01 Morbid (severe) obesity due to excess calories; Z80.1 Family history of malignant neoplasm of trachea, bronchus and lung; M51.37 Other intervertebral disc degeneration, lumbosacral region; M51.36 Other intervertebral disc degeneration, lumbar region; I48.0 Paroxysmal atrial fibrillation; Z82.49 Family history of ischemic heart disease and other diseases of the circulatory system; K59.00 Constipation, unspecified; Z88.0 Allergy status to penicillin; I35.8 Other nonrheumatic aortic valve disorders; I77.819 Aortic ectasia, unspecified site; E87.70 Fluid overload, unspecified; Z51.5 Encounter for palliative care; Z66 Do not resuscitate; E86.0 Dehydration; K76.0 Fatty (change of) liver, not elsewhere classified; E83.39 Other disorders of phosphorus metabolism; M25.78 Osteophyte, vertebrae; M48.06 Spinal stenosis, lumbar region
CPT/HCPCS: 36430; 36600; 38221; 71010; 71020; 71250; 71275; 72131; 74000; 76705; 76937; 77012; 80048; 80053; 80162; 81001; 81218; 81245; 81310; 82550; 82805; 82948; 83010; 83605; 83615; 83690; 83735; 83880; 84100; 84145; 84439; 84443; 84484; 84550; 85007; 85027; 85060; 85097; 85379; 85384; 85610; 85652; 85730; 86140; 86850; 86900; 86901; 86920; 87040; 87070; 87086; 87205; 87497; 87641; 88184; 88185; 88237; 88264; 88280; 88305; 88311; 88313; 93005; 93306; 93308; 94150; 94620; 94640; 94664; 94667; 94668; 96374; 96375; 99152; 99153; C1830; G0364; J0131; J0282; J0780; J0894; J1120; J1160; J1200; J1626; J1644; J1650; J1815; J1940; J1956; J2185; J2250; J2270; J2405; J3010; J3475; J7030; J7040; J7050; J7060; P9040; Q0166; Q9967

== ENCOUNTER 2017-07-03 11:10 | Emergency (ER) | payer MEDICARE, OTHER ==
[~2017-07-03] VITALS: Ht 167.6 cm; Wt 70.0 kg
[~2017-07-03 11:10] MED LIST changes: +ALPR.25 PO; +AMIO200T PO; -ASPI81TA82 PO; -ATEN-102 PO; -ATOR40TA PO; +ATOR40TA16 PO; +DIGO0.12 PO; +DRON5CAP PO; -HYDR12.56 PO; +IPRASOL NEB; +LEVA750T9 PO; -LEVE500 PO; -LEVO100T4 PO; +LEVO100T5 PO; -LISI-363 PO; -LORA-474 PO; +NYST1000 SWISH-SWAL; -OXYC1SOL5 PO; +PRED10PA PO; +PROC10TA PO; -TERA5CAP3 PO; -VITA100020 PO; -WALKER WHEELS/F1 MIS; -Z.0.WALKERFOLD
[2017-07-03 11:20] VITALS: BP 128/80; PULSE 89; RESP 18; TEMP 98.7; O2SAT 97
[2017-07-03] MEDS ORDERED: SODIUM CHLOR 0.9% 1000 ML INJ 1,000 ML IV ONE (11:22)
[2017-07-03 11:24] VITALS: RESP 18; O2SAT 97
[2017-07-03] MEDS ORDERED: methylPREDNISolone SOD SUCC 125 MG/2 ML VIAL IV PUSH ONE (11:30)
[2017-07-03] MEDS ORDERED: ONDANSETRON HCL 4 MG/2 ML VIAL IV PUSH ONE (11:30)
[2017-07-03] MEDS: RESP: ALBUTEROL 2.5 MG/IPRATROPIUM 0.5 MG NEB (SCH) INH ×2 (11:33→11:34)
[2017-07-03 11:34] VITALS: O2SAT 96
--- NOTE | 2017-07-03 11:36 | PD ---
HPI Chief Complaint: GI Complaint Time Seen by Provider: 11:20 Travel History International Travel<30 days: No Contact w/Intl Traveler<30days: No Traveled to known affect area: No History of Present Illness HPI Patient is a 67-year-old female presenting to emergency department for evaluation of generalized weakness, nausea and vomiting. Patient states her symptoms have been ongoing since Sunday. Patient states she's been unable to tolerate her normal medications. She has not taken prescribed nausea medication at home. She reports a productive cough with. She also reports upper abdominal tenderness. Patient denies any fevers. She reports being discharged from the hospital last week on Levaquin and steroids, she has not taken these medications since Sunday due to the nausea and vomiting. She reports being diagnosed with pneumonia and was inpatient. 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 [facility] chemotherapy and is followed by Dr. Yarbrough. Her last chemotherapy treatment was approximately 3 weeks ago. Patient states she normally feels weak after chemotherapy. Patient' s past medical history significant for TIA, atrial fibrillation, chronic kidney disease, COPD, hyperlipidemia, hypothyroidism, hypertension. 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) High Cholesterol: Yes Chemotherapy: Yes (on Dacogen) Chest Pain: No Congestive Heart Failure: No COPD: Yes Endocrine: Yes Headaches: Yes Hypertension: Yes Musculoskeletal: Yes (back) Neurologic: Yes (brain aneurysms, ANGIOMA) Myocardial Infarction: Yes (10/07) Thyroid Disease: Yes (Hypothyrodism) ?: Not Menopausal: Yes Past Surgical History Abdominal Surgery: Yes Appendectomy: Yes Section: Yes Other Surgery: Yes (back, VARICOSE VEIN REMOVAL) Social History Alcohol Use: No Tobacco Use: Yes (quit 2012) Substance Use: No Allergies-Medications (Allergen,Severity, Reaction): Coded Allergies: penicillin G (Verified Allergy, Severe, 06/27/17) Reported Meds & Prescriptions Reported Meds & Active Scripts Active Levaquin (Levofloxacin) 750 Mg Tablet 750 Mg PO DAILY Dronabinol 5 Mg Cap 5 Mg PO BID@11,16 30 Days Xanax (Alprazolam) 0.25 Mg Tab 0.25 Mg PO TID PRN 7 Days Amiodarone (Amiodarone HCl) 200 Mg Tab 200 Mg PO DAILY 30 Days Duoneb (Ipratropium-Albuterol Neb) 0.5-2.5 Mg/3 Ml Neb 1 Ampule NEB Q4HR NEB PRN Atorvastatin (Atorvastatin Calcium) 40 Mg Tab 40 Mg PO DAILY 30 Days Reported Prochlorperazine Maleate 10 Mg Tab 10 Mg PO Q6H PRN Levothyroxine (Levothyroxine Sodium) 100 Mcg Tab 100 Mcg PO DAILY Review of Systems Except as stated in HPI: all other systems reviewed are Neg General / Constitutional: Positive: Chills, No: Fever HENT: No: Headaches, Lightheadedness Cardiovascular: No: Chest Pain or Discomfort Respiratory: Positive: Cough, Shortness of Breath Gastrointestinal: Positive: Nausea, Vomiting, Abdominal Pain Genitourinary: No: Dysuria Musculoskeletal: No: Myalgias Neurologic: Positive: Weakness, No: Syncope, Change in Mentation Physical Exam Narrative GENERAL: Well-developed, well-nourished, alert elderly female. Resting comfortably in no acute distress. SKIN: Warm and dry. HEAD: Atraumatic. Normocephalic. EYES: Pupils equal and round. No scleral icterus. No injection or drainage. ENT: No nasal bleeding or discharge. Mucous membranes pink and moist. NECK: Trachea midline. No JVD. CARDIOVASCULAR: Regular rate and rhythm. RESPIRATORY: No accessory muscle use. Clear to auscultation. Breath sounds equal bilaterally. GASTROINTESTINAL: Abdomen soft, non-tender, nondistended. Hepatic and splenic margins not palpable. Positive bowel sounds, no rebound, no guarding MUSCULOSKELETAL: Extremities without clubbing, cyanosis, or edema. No obvious deformities. NEUROLOGICAL: Awake and alert. No obvious cranial nerve deficits. Motor grossly within normal limits. Five out of 5 muscle strength in the arms and legs. Normal speech. PSYCHIATRIC: Appropriate mood and affect; insight and judgment normal. Data Data Last Documented VS Vital Signs Date Time Temp Pulse Resp B/P (MAP) Pulse Ox O2 Delivery O2 Flow Rate FiO2 07/03/17 15:31 79 18 134/84 (101) 96 Room Air 07/03/17 11:34 21 07/03/17 11:20 98.7 Orders Orders Complete Blood Count With Diff (07/03/17 11:22) Comprehensive Metabolic Panel (07/03/17 11:22) Lactic Acid Sepsis Protocol (07/03/17 11:22) Lipase (07/03/17 11:22) Urinalysis - C+S If Indicated (07/03/17 11:22) Blood Culture (07/03/17 11:22) Chest, Single Ap (07/03/17 11:22) Blood Glucose (07/03/17 11:22) Ecg Monitoring (07/03/17 11:22) Iv Access Insert/Monitor (07/03/17 11:22) Oximetry (07/03/17 11:22) Oxygen Administration (07/03/17 11:22) Sodium Chlor 0.9% 1000 Ml Inj (Ns 1000 M (07/03/17 11:22) Ondansetron Inj (Zofran Inj) (07/03/17 11:30) Methylprednisolone So Succ Inj (Solumedr (07/03/17 11:30) Albuterol-Ipratropium Neb (Duoneb Neb) (07/03/17 11:30) Urine Culture (07/03/17 11:30) Ceftriaxone Inj (Rocephin Inj) (07/03/17 12:30) Hydrocodone-Homatropine Liq (Hycodan Liq (07/03/17 12:30) Diet Regular Basic (07/03/17 Lunch) Labs Laboratory Tests Test 07/03/17 11:30 White Blood Count 1.9 TH/MM3 Red Blood Count 3.16 MIL/MM3 Hemoglobin 11.5 GM/DL Hematocrit 33.6 % Mean Corpuscular Volume 106.5 FL Mean Corpuscular Hemoglobin 36.4 PG Mean Corpuscular Hemoglobin Concent 34.2 % Red Cell Distribution Width 18.4 % Platelet Count 244 TH/MM3 Mean Platelet Volume 8.6 FL CBC Comment AUTO DIFF Differential Total Cells Counted 100 Neutrophils % (Manual) 35 % Band Neutrophils % 1 % Lymphocytes % 38 % Monocytes % 7 % Basophils % 1 % Neutrophils # (Manual) 0.8 TH/MM3 Metamyelocytes 2 % Myelocytes 2 % Promyelocytes 1 % Differential Comment FINAL DIFF MANUAL Blastocytes 13 % Platelet Estimate NORMAL Platelet Morphology Comment NORMAL Urine Color YELLOW Urine Turbidity HAZY Urine pH 6.0 Urine Specific [place] 1.025 Urine Protein 30 mg/dL Urine Glucose (UA) NEG mg/dL Urine Ketones NEG mg/dL Urine Occult Blood TRACE Urine Nitrite NEG Urine Bilirubin NEG Urine Urobilinogen 2.0 MG/DL Urine Leukocyte Esterase LARGE Urine RBC 2 /hpf Urine WBC 6 /hpf Urine Squamous Epithelial Cells 14 /hpf Urine Transitional Epithelial Cells 2 /hpf Urine Bacteria RARE /hpf Urine Hyaline Casts 1 /lpf Urine Mucus MOD /lpf Microscopic Urinalysis Comment CATH-CULTURE IND Blood Urea Nitrogen 17 MG/DL Creatinine 1.07 MG/DL Random Glucose 113 MG/DL Total Protein 6.6 GM/DL Albumin 2.6 GM/DL Calcium Level 8.5 MG/DL Alkaline Phosphatase 108 U/L Aspartate Amino Transf (AST/SGOT) 17 U/L Alanine Aminotransferase (ALT/SGPT) 21 U/L Total Bilirubin 0.7 MG/DL Sodium Level 135 MEQ/L Potassium Level 3.8 MEQ/L Chloride Level 99 MEQ/L Carbon Dioxide Level 26.8 MEQ/L Anion Gap 9 MEQ/L Estimat Glomerular Filtration Rate 51 ML/MIN Lactic Acid Level 1.1 mmol/L Lipase 136 U/L [facility] Medical Decision Making Medical Screen Exam Complete: Yes Emergency Medical Condition: Yes Medical Record Reviewed: Yes Interpretation(s) Laboratory Tests Test 07/03/17 11:30 White Blood Count 1.9 TH/MM3 Red Blood Count 3.16 MIL/MM3 Hemoglobin 11.5 GM/DL Hematocrit 33.6 % Mean Corpuscular Volume 106.5 FL Mean Corpuscular Hemoglobin 36.4 PG Mean Corpuscular Hemoglobin Concent 34.2 % Red Cell Distribution Width 18.4 % Platelet Count 244 TH/MM3 Mean Platelet Volume 8.6 FL CBC Comment AUTO DIFF Differential Total Cells Counted 100 Neutrophils % (Manual) 35 % Band Neutrophils % 1 % Lymphocytes % 38 % Monocytes % 7 % Basophils % 1 % Neutrophils # (Manual) 0.8 TH/MM3 Metamyelocytes 2 % Myelocytes 2 % Promyelocytes 1 % Differential Comment FINAL DIFF MANUAL Blastocytes 13 % Platelet Estimate NORMAL Platelet Morphology Comment NORMAL Urine Color YELLOW Urine Turbidity HAZY Urine pH 6.0 Urine Specific [place] 1.025 Urine Protein 30 mg/dL Urine Glucose (UA) NEG mg/dL Urine Ketones NEG mg/dL Urine Occult Blood TRACE Urine Nitrite NEG Urine Bilirubin NEG Urine Urobilinogen 2.0 MG/DL Urine Leukocyte Esterase LARGE Urine RBC 2 /hpf Urine WBC 6 /hpf Urine Squamous Epithelial Cells 14 /hpf Urine Transitional Epithelial Cells 2 /hpf Urine Bacteria RARE /hpf Urine Hyaline Casts 1 /lpf Urine Mucus MOD /lpf Microscopic Urinalysis Comment CATH-CULTURE IND Blood Urea Nitrogen 17 MG/DL Creatinine 1.07 MG/DL Random Glucose 113 MG/DL Total Protein 6.6 GM/DL Albumin 2.6 GM/DL Calcium Level 8.5 MG/DL Alkaline Phosphatase 108 U/L Aspartate Amino Transf (AST/SGOT) 17 U/L Alanine Aminotransferase (ALT/SGPT) 21 U/L Total Bilirubin 0.7 MG/DL Sodium Level 135 MEQ/L Potassium Level 3.8 MEQ/L Chloride Level 99 MEQ/L Carbon Dioxide Level 26.8 MEQ/L Anion Gap 9 MEQ/L Estimat Glomerular Filtration Rate 51 ML/MIN Lactic Acid Level 1.1 mmol/L Lipase 136 U/L Last Impressions Chest X-Ray 07/03/17 1122 Signed Impressions: Service Date/Time: Monday, July 03, 2017 11:55 - CONCLUSION: Minimal platelike atelectasis left midlung. Otherwise, no other focal or acute intrathoracic disease is demonstrated. Rudy Craig MD Vital Signs Date Time Temp Pulse Resp B/P (MAP) Pulse Ox O2 Delivery O2 Flow Rate FiO2 07/03/17 11:24 18 97 Room Air 07/03/17 11:24 98 Room Air 07/03/17 11:21 18 07/03/17 11:20 98.7 89 18 128/80 (96) 97 Room Air Last Impressions Chest X-Ray 07/03/17 1122 Signed Impressions: Service Date/Time: Monday, July 03, 2017 11:55 - CONCLUSION: Minimal platelike atelectasis left midlung. Otherwise, no other focal or acute intrathoracic disease is demonstrated. Rudy Craig MD Differential Diagnosis Pneumonia versus COPD exacerbation versus metabolic abnormality versus sepsis versus viral syndrome versus other Narrative Course Patient is a 67-year-old female presenting to emergency for evaluation of generalized weakness, nausea and vomiting. Symptoms have been ongoing since Sunday. Patient's vital signs are stable, labs and imaging ordered and pending, patient given IV fluids and Zofran. Patient does not vomit while in the emergency department. CBC with a white count of 1.9, CBC is stable when compared to prior. Chemistry with no acute findings Urinalysis is indicative of urinary tract infection, reflux culture pending. Patient was given Rocephin 1 g IV in the emergency department. Chest x-ray shows minimal platelike atelectasis left mid lung. No other focal or acute intrathoracic disease is demonstrated. Patient had a nonproductive cough in the emergency department, she was given Hycodan. Patient reports feeling better since she is not coughing as much anymore. Patient was kept in the emergency department after labs and imaging resulted in order to see if she tolerated oral food and fluids. Patient was given a meal tray and fluids. She's been able to keep these down. Discussed with patient the need to take her medications for nausea when she begins to feel nauseated at home. She stated that she was trying to cut back on her medications, she was advised to not cut medications until she discussed this with her doctors. She was advised that medications can help alleviate her symptoms and prevent her from having to come back to the emergency department. She is advised to follow-up with Dr. Yarbrough as scheduled. She was encouraged to maintain a bland, easy to digest diet, increase fluid intake as tolerated. She was encouraged to return to emergency department for any new or worsening symptoms. Patient verbalized understanding of instructions. Patient is stable for discharge. Diagnosis Primary Impression: Nausea & vomiting Qualified Codes: R11.2 - Nausea with vomiting, unspecified Additional Impressions: UTI (urinary tract infection) Qualified Codes: N39.0 - Urinary tract infection, site not specified Bronchitis Referrals: Amna Yarbrough MD Primary Care Physician Patient Instructions: Acute Nausea and Vomiting (ED), Chemo Induced Nausea and Vomiting (GEN), Diet for Stomach Ulcers and Gastritis (ED), General Instructions Additional Instructions: Follow-up with your primary doctor Follow-up with your oncologist Take medications as directed Maintain a bland, easy to digest diet Avoid spicy, fried, fatty foods, acidic foods Return to emergency department for any new or worsening symptoms Med/Other Pt SpecificInfo: Prescription(s) given Scripts Hydrocodone-Homatropine Liq (Hydrocodone-Homatropine Liq) 5-1.5 Mg/5 Ml Syrp 5 ML PO Q6H Y for COUGH, #100 ML 0 Refills Prov: Mariella Mike 07/03/17 Nitrofurantoin Monohydrate Macrocrystals (Nitrofurantoin Monohydrate Macrocrystals) 100 Mg Cap 100 MG PO BID for Infection for 7 Days, #14 CAP 0 Refills Prov: Mariella Mike 07/03/17 Disposition: 01 DISCHARGE HOME Condition: Stable Mariella Mike Jul 03, 2017 11:36
[2017-07-03 11:44] LABS: HEMATOCRIT 33.6 % (35.0-46.0); MEAN CELL VOLUME 106.5 FL (80.0-100.0); MEAN CORPUSCULAR HEMOGLOBIN 36.4 PG (27.0-34.0); MEAN CORPUSCULAR HGB CONC 34.2 % (32.0-36.0); PLATELET COUNT 244 TH/MM3 (150-450); RED BLOOD COUNT 3.16 MIL/MM3 (4.00-5.30); RED CELL DISTRIBUTION WIDTH 18.4 % (11.6-17.2); WHITE BLOOD COUNT 1.9 TH/MM3 (4.0-11.0)
[2017-07-03 11:46] LABS: BACTERIA, URINE RARE /hpf; BLOOD, URINE TRACE (NEG); GLUCOSE,URINE NEG (NEG); HYALINE CAST, URINE 1 /lpf (RARE); KETONE, URINE NEG (NEG); MUCUS URINE MOD /lpf (OCC); NITRITE,URINE NEG (NEG); SQUAMOUS EPITHELIAL CELL URINE 14 /hpf (0-5); TRANSITIONAL EPI CELLS, URINE 2 /hpf; URINE COLOR YELLOW (YELLW/STRAW)
[2017-07-03 11:48] LABS: HEMO FLAGS AUTO DIFF
[2017-07-03 11:49] LABS: COMMENT (UR) CATH-CULTURE IND; CULTURE IF INDICATED CATH CULTURE IND
[2017-07-03 12:00] LABS: ALT (GPT) 21 U/L (10-53); ANION GAP 9 MEQ/L (5-15); AST (GOT) 17 U/L (15-37); BICARBONATE 26.8 MEQ/L (21.0-32.0); BLOOD UREA NITROGEN 17 MG/DL (7-18); CHLORIDE 99 MEQ/L (98-107); GLOMERULAR FILTRATION RATE 51 ML/MIN (>89); POTASSIUM 3.8 MEQ/L (3.5-5.1); SODIUM (NA) 135 MEQ/L (136-145)
[2017-07-03 12:02] LABS: ALKALINE PHOSPHATASE 108 U/L (45-117); TOTAL BILIRUBIN ADULT 0.7 MG/DL (0.2-1.0)
--- NOTE | 2017-07-03 12:08 | PD ---
Physical Exam Date Seen by Provider: Jul 03, 2017 Narrative Patient presents with the chief complaint of nausea and vomiting. She also has a cough. Data Data Last Documented VS Vital Signs Date Time Temp Pulse Resp B/P (MAP) Pulse Ox O2 Delivery O2 Flow Rate FiO2 07/03/17 11:34 96 21 07/03/17 11:24 18 Room Air 07/03/17 11:20 98.7 89 Orders Orders Complete Blood Count With Diff (07/03/17 11:22) Comprehensive Metabolic Panel (07/03/17 11:22) Lactic Acid Sepsis Protocol (07/03/17 11:22) Lipase (07/03/17 11:22) Urinalysis - C+S If Indicated (07/03/17 11:22) Blood Culture (07/03/17 11:22) Chest, Single Ap (07/03/17 11:22) Blood Glucose (07/03/17 11:22) Ecg Monitoring (07/03/17 11:22) Iv Access Insert/Monitor (07/03/17 11:22) Oximetry (07/03/17 11:22) Oxygen Administration (07/03/17 11:22) Sodium Chlor 0.9% 1000 Ml Inj (Ns 1000 M (07/03/17 11:22) Ondansetron Inj (Zofran Inj) (07/03/17 11:30) Methylprednisolone So Succ Inj (Solumedr (07/03/17 11:30) Albuterol-Ipratropium Neb (Duoneb Neb) (07/03/17 11:30) Urine Culture (07/03/17 11:30) Labs Laboratory Tests Test 07/03/17 11:30 White Blood Count 1.9 TH/MM3 Red Blood Count 3.16 MIL/MM3 Hemoglobin 11.5 GM/DL Hematocrit 33.6 % Mean Corpuscular Volume 106.5 FL Mean Corpuscular Hemoglobin 36.4 PG Mean Corpuscular Hemoglobin Concent 34.2 % Red Cell Distribution Width 18.4 % Platelet Count 244 TH/MM3 Mean Platelet Volume 8.6 FL CBC Comment AUTO DIFF Urine Color YELLOW Urine Turbidity HAZY Urine pH 6.0 Urine Specific [place] 1.025 Urine Protein 30 mg/dL Urine Glucose (UA) NEG mg/dL Urine Ketones NEG mg/dL Urine Occult Blood TRACE Urine Nitrite NEG Urine Bilirubin NEG Urine Urobilinogen 2.0 MG/DL Urine Leukocyte Esterase LARGE Urine RBC 2 /hpf Urine WBC 6 /hpf Urine Squamous Epithelial Cells 14 /hpf Urine Transitional Epithelial Cells 2 /hpf Urine Bacteria RARE /hpf Urine Hyaline Casts 1 /lpf Urine Mucus MOD /lpf Microscopic Urinalysis Comment CATH-CULTURE IND Blood Urea Nitrogen 17 MG/DL Creatinine 1.07 MG/DL Random Glucose 113 MG/DL Total Protein 6.6 GM/DL Albumin 2.6 GM/DL Calcium Level 8.5 MG/DL Alkaline Phosphatase 108 U/L Aspartate Amino Transf (AST/SGOT) 17 U/L Alanine Aminotransferase (ALT/SGPT) 21 U/L Total Bilirubin 0.7 MG/DL Sodium Level 135 MEQ/L Potassium Level 3.8 MEQ/L Chloride Level 99 MEQ/L Carbon Dioxide Level 26.8 MEQ/L Anion Gap 9 MEQ/L Estimat Glomerular Filtration Rate 51 ML/MIN Lactic Acid Level 1.1 mmol/L Lipase 136 U/L MDM Supervised Visit with JA: Yes Narrative Course I, Dr. Mujica, have reviewed the advance practice practitioner's documentation and am in agreement, met with the patient face to face, made the diagnosis, and the medical decision making was done by me. *My assessment and Findings: The patient was receiving a breathing treatment when I saw her. She was able to speak in complete sentences without any respiratory distress. She did have a cough. Please see Mariella Adorno NP's note for results of laboratory and radiographic evaluation, ED course, final diagnosis and disposition Fay Mujiac MD Jul 03, 2017 12:08
--- NOTE | 2017-07-03 12:13 | RADRPT ---
EXAM DATE/TIME: 07/03/2017 11:55 [facility] COMPARISON: CHEST SINGLE AP, June 27, 2017, 3:05. INDICATIONS : Cough, short of breath MEDICAL HISTORY : Hypertension. Myocardial infarction. SURGICAL HISTORY : None. ENCOUNTER: Initial ACUITY: 1 day PAIN SCORE: 0/10 LOCATION: Bilateral chest FINDINGS: A single view of the chest demonstrates the lungs to be symmetrically aerated without evidence of mas s, infiltrate or effusion. There is minimal platelike atelectasis in the left midlung. The cardiomedi astinal contours are unremarkable. Osseous structures are intact. Otherwise, no significant changes. CONCLUSION: Minimal platelike atelectasis left midlung. Otherwise, no other focal or acute intrathoracic disease is demonstrated. Rudy Craig MD on July 03, 2017 at 12:12 Board Certified Radiologist. This report was verified electronically.
[2017-07-03] MEDS ORDERED: cefTRIAXone INJ 1,000 MG in SODIUM CHLORIDE 0.9% INJ 100 ML IV ONE (12:30)
[2017-07-03] MEDS ORDERED: HYDROcodone 5 MG/HOMATROPINE 1.5 MG SYRUP 5 ML CUP PO ONE (12:30)
[2017-07-03 12:37] LABS: BANDS 1 % (0-6); BASOPHILS 1 % (0-2); BLASTS 13 % (0-0); METAMYELOCYTES 2 % (0-1); MYELOCYTES 2 % (0-0); NEUTROPHIL # MANUAL DIFF 0.8 TH/MM3 (1.8-7.7); PLATELET ESTIMATE SMEAR NORMAL (NORMAL); PLATELET MORPHOLOGY NORMAL (NORMAL); POLYS (SEG NEUTROPHILS) 35 % (16-70); PROMYELOCYTES 1 % (0-0); SCAN/DIFF FINAL DIFF MANUAL; WBC DIFF SAMPLE 100
[2017-07-03 15:31] VITALS: BP 134/84; PULSE 79; RESP 18; O2SAT 96
[2017-07-03] MEDS ORDERED: NITR100C4 PO (17:37)
[2017-07-03] MEDS ORDERED: HYDR5SYP10 PO (17:37)
== END 2017-07-03 18:10 | disposition home or self-care (01) ==
LOC: NEPE 11:10 → NEDAMB 18:10
DX: R11.2 Nausea with vomiting, unspecified (principal); N39.0 Urinary tract infection, site not specified; B37.9 Candidiasis, unspecified; R05 Cough; I48.91 Unspecified atrial fibrillation; F41.9 Anxiety disorder, unspecified; J44.9 Chronic obstructive pulmonary disease, unspecified; E03.9 Hypothyroidism, unspecified; Z72.0 Tobacco use
CPT/HCPCS: 71010; 80053; 81001; 83605; 83690; 85007; 85027; 87040; 87077; 87086; 87186; 94640; 94664; 96374; 96375; 99284; J0696; J2405; J2930; J7030

== ENCOUNTER 2017-07-06 06:52 | Emergency (ER) | payer MEDICARE, OTHER ==
[~2017-07-06] VITALS: Ht 165.1 cm; Wt 82.0 kg
[~2017-07-06 06:52] MED LIST changes: -DIGO0.12 PO; +HYDR5SYP10 PO; +NITR100C4 PO; -NYST1000 SWISH-SWAL; -PRED10PA PO
[2017-07-06 07:01] VITALS: BP 135/69; PULSE 89; RESP 21; TEMP 99; O2SAT 98
[2017-07-06 07:03] VITALS: BP 135/69; PULSE 82; RESP 21; TEMP 99; O2SAT 95
[2017-07-06 07:15] VITALS: RESP 22; O2SAT 92
[2017-07-06] MEDS ORDERED: SODIUM CHLORIDE 0.9% FLUSH 10 ML FLUSH IVF PRN (07:15)
[2017-07-06] MEDS: ONDANSETRON ODT 4 MG TAB PO ONE ×2 (07:26→07:30)
[2017-07-06] MEDS ORDERED: BENZONATATE 100 MG CAP PO ONE (07:30)
--- NOTE | 2017-07-06 07:34 | PD ---
HPI Chief Complaint: Respiratory Distress Time Seen by Provider: 07:09 Travel History International Travel<30 days: No Contact w/Intl Traveler<30days: No Traveled to known affect area: No History of Present Illness HPI 59-year-old female arrives to the ER complaining of coughing and nausea. Duration 2 months. She's had no fever. She's been here twice and was admitted once for pneumonia and seen here 3 days prior for the same complaint. She was prescribed antitussives however has not taken any because she states that ingesting tablets causes nausea. Additional complaints of midepigastric abdominal pain worse after coughing. Patient has a history of acute myelogenous lymphoma and underwent chemotherapy 3 months prior with Preethi Crystal, who reports pt smokes tobacco at home and at time of last evaluation. 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) High Cholesterol: Yes Chemotherapy: Yes Chest Pain: No Congestive Heart Failure: No COPD: Yes Diminished Hearing: No Endocrine: Yes Headaches: Yes Hypertension: Yes Musculoskeletal: Yes (back) Neurologic: Yes (brain aneurysms, ANGIOMA) Myocardial Infarction: Yes (10/07) Thyroid Disease: Yes (Hypothyrodism) Tetanus Vaccination: > 5 Years Influenza Vaccination: No Menopausal: Yes Past Surgical History Abdominal Surgery: Yes Appendectomy: Yes Section: Yes Other Surgery: Yes (back, VARICOSE VEIN REMOVAL) Social History Alcohol Use: No Tobacco Use: Yes (quit 2012) Substance Use: No Allergies-Medications (Allergen,Severity, Reaction): Coded Allergies: penicillin G (Verified Allergy, Severe, 07/06/17) Reported Meds & Prescriptions Reported Meds & Active Scripts Active Hydrocodone-Homatropine Liq 5-1.5 Mg/5 Ml Syrp 5 Ml PO Q6H PRN Nitrofurantoin Monohydrate Macrocrystals (Nitrofurantoin Monoh/Nitrofur Macro) 100 Mg Cap 100 Mg PO BID 7 Days Levaquin (Levofloxacin) 750 Mg Tablet 750 Mg PO DAILY Dronabinol 5 Mg Cap 5 Mg PO BID@11,16 30 Days Xanax (Alprazolam) 0.25 Mg Tab 0.25 Mg PO TID PRN 7 Days Amiodarone (Amiodarone HCl) 200 Mg Tab 200 Mg PO DAILY 30 Days Duoneb (Ipratropium-Albuterol Neb) 0.5-2.5 Mg/3 Ml Neb 1 Ampule NEB Q4HR NEB PRN Atorvastatin (Atorvastatin Calcium) 40 Mg Tab 40 Mg PO DAILY 30 Days Reported Prochlorperazine Maleate 10 Mg Tab 10 Mg PO Q6H PRN Levothyroxine (Levothyroxine Sodium) 100 Mcg Tab 100 Mcg PO DAILY Review of Systems Except as stated in HPI: all other systems reviewed are Neg General / Constitutional: No: Fever Respiratory: Positive: Cough Physical Exam Narrative GENERAL: 67 yo F, elderly, WNWD, mild distress speaking full sentences SKIN: Warm and dry. HEAD: Atraumatic. Normocephalic. EYES: Pupils equal and round. No scleral icterus. No injection or drainage. ENT: No nasal bleeding or discharge. Mucous membranes pink and moist. NECK: Trachea midline. No JVD. CARDIOVASCULAR: Regular rate and rhythm. RESPIRATORY: Speaking sentences. Lungs clear anterior lung atkins. GASTROINTESTINAL: Abdomen soft, non-tender, nondistended. Hepatic and splenic margins not palpable. MUSCULOSKELETAL: Extremities without clubbing, cyanosis, or edema. No obvious deformities. NEUROLOGICAL: Awake and alert. No obvious cranial nerve deficits. Motor grossly within normal limits. Five out of 5 muscle strength in the arms and legs. Normal speech. PSYCHIATRIC: Appropriate mood and affect; insight and judgment normal. Data Data Last Documented VS Vital Signs Date Time Temp Pulse Resp B/P (MAP) Pulse Ox O2 Delivery O2 Flow Rate FiO2 07/06/17 08:00 98 Nasal Cannula 2.00 07/06/17 07:15 22 07/06/17 07:03 99.0 82 Orders Orders Complete Blood Count With Diff (07/06/17 07:13) Comprehensive Metabolic Panel (07/06/17 07:13) Urinalysis - C+S If Indicated (07/06/17 07:13) Iv Access Insert/Monitor (07/06/17 07:13) Electrocardiogram (07/06/17 07:13) Ecg Monitoring (07/06/17 07:13) Oximetry (07/06/17 07:13) Oxygen Administration (07/06/17 07:13) Chest, Single Ap (07/06/17 07:13) Sodium Chloride 0.9% Flush (Ns Flush) (07/06/17 07:15) Lipase (07/06/17 07:13) Benzonatate (Tessalon) (07/06/17 07:30) Ondansetron Odt (Zofran Odt) (07/06/17 07:30) Promethazine Inj (Phenergan Inj) (07/06/17 07:45) Albuterol-Ipratropium Neb (Duoneb Neb) (07/06/17 07:45) Dexamethasone Inj (Decadron Inj) (07/06/17 07:45) Labs Laboratory Tests Test 07/06/17 07:30 White Blood Count 2.5 TH/MM3 Red Blood Count 3.02 MIL/MM3 Hemoglobin 10.9 GM/DL Hematocrit 32.4 % Mean Corpuscular Volume 107.1 FL Mean Corpuscular Hemoglobin 36.2 PG Mean Corpuscular Hemoglobin Concent 33.8 % Red Cell Distribution Width 19.0 % Platelet Count 197 TH/MM3 Mean Platelet Volume 8.7 FL Neutrophils (%) (Auto) 34.5 % Lymphocytes (%) (Auto) 53.8 % Monocytes (%) (Auto) 9.2 % Eosinophils (%) (Auto) 0.7 % Basophils (%) (Auto) 1.8 % Neutrophils # (Auto) 0.9 TH/MM3 Lymphocytes # (Auto) 1.3 TH/MM3 Monocytes # (Auto) 0.2 TH/MM3 Eosinophils # (Auto) 0.0 TH/MM3 Basophils # (Auto) 0.0 TH/MM3 CBC Comment AUTO DIFF Blood Urea Nitrogen 11 MG/DL Creatinine 1.08 MG/DL Random Glucose 114 MG/DL Total Protein 6.4 GM/DL Albumin 2.6 GM/DL Calcium Level 8.5 MG/DL Alkaline Phosphatase 110 U/L Aspartate Amino Transf (AST/SGOT) 22 U/L Alanine Aminotransferase (ALT/SGPT) 25 U/L Total Bilirubin 0.4 MG/DL Sodium Level 138 MEQ/L Potassium Level 3.4 MEQ/L Chloride Level 100 MEQ/L Carbon Dioxide Level 28.7 MEQ/L Anion Gap 9 MEQ/L Estimat Glomerular Filtration Rate 50 ML/MIN Lipase 149 U/L MDM Medical Decision Making Medical Screen Exam Complete: Yes Emergency Medical Condition: Yes Medical Record Reviewed: Yes Differential Diagnosis COPD, anxiety, pna, GERD, post-nasal drip Narrative Course CBC & BMP Diagram 07/06/17 07:30 Total Protein 6.4, Albumin 2.6 L, Calcium Level 8.5, Alkaline Phosphatase 110, Aspartate Amino Transf (AST/SGOT) 22, Alanine Aminotransferase (ALT/SGPT) 25, Total Bilirubin 0.4 EKG shows a sinus rhythm with a rate of 89 The patient arrives fairly anxious and complaining of shortness of breath with only happens after a coughing spell. She has COPD and smokes. She reports feeling nauseated after ingesting tablets of any kind. Her workup today is unremarkable. Her vital signs are normal. She received albuterol and Solu- Medrol here. She refuses interventions including under the tongue Zofran. She is concerned that if she goes home she'll have dyspnea. Based on her presenting complaint today and the workup performed there appears to be no acute illness to justify an inpatient stay or even an obs stay. At time of reassessment patient states she doesn't smoke. We discussed various interventions for coughing and nausea with scripts as below. Pt agreeable with plan. Diagnosis Primary Impression: Cough Additional Impression: Nausea & vomiting Qualified Codes: R11.2 - Nausea with vomiting, unspecified Additional Instructions: PLEASE DON'T TAKE PREDNISONE BECAUSE WE GAVE YOU DECADRON AND DECADRON WORKS FOR A WEEK PLEASE TAKE CETIRIZINE DAILY TO HELP WITH COUGH PLEASE USE PHENERGAN SUPPOSITORIES TO HELP WITH NAUSEA PLEASE USE TESSALON PEARLS NEEDED FOR COUGHING Med/Other Pt SpecificInfo: Prescription(s) given Scripts Promethazine Supp (Phenergan Supp) 25 Mg Supp 25 MG RECTAL Q6H Y for NAUSEA OR VOMITING, #20 SUPP 0 Refills Prov: Berny Chang MD 07/06/17 Benzonatate (Tessalon Perles) 100 Mg Cap 100 MG PO TID Y for COUGH, #20 CAP 0 Refills Prov: Berny Chang MD 07/06/17 Cetirizine (Cetirizine) 10 Mg Tab 10 MG PO DAILY for Allergies, #21 TAB 0 Refills Prov: Berny Chang MD 07/06/17 Disposition: 01 DISCHARGE HOME Condition: Stable Berny Chang MD Jul 06, 2017 07:34
[2017-07-06 07:36] LABS: WHITE BLOOD COUNT 2.5 TH/MM3 (4.0-11.0)
[2017-07-06 07:37] LABS: AUTOMATED NEUTROPHIL # 0.9 TH/MM3 (1.8-7.7); BASOPHIL % 1.8 % (0.0-2.0); EOSINOPHIL % 0.7 % (0.0-4.0); HEMATOCRIT 32.4 % (35.0-46.0); LYMPH % 53.8 % (9.0-44.0); LYMPHOCYTE # 1.3 TH/MM3 (1.0-4.8); MEAN CELL VOLUME 107.1 FL (80.0-100.0); MEAN CORPUSCULAR HEMOGLOBIN 36.2 PG (27.0-34.0); MEAN CORPUSCULAR HGB CONC 33.8 % (32.0-36.0); MONO % 9.2 % (0.0-8.0); NEUT % 34.5 % (16.0-70.0); PLATELET COUNT 197 TH/MM3 (150-450); RED BLOOD COUNT 3.02 MIL/MM3 (4.00-5.30)
[2017-07-06 07:38] LABS: HEMO FLAGS AUTO DIFF
[2017-07-06] MEDS ORDERED: RESP: ALBUTEROL 2.5 MG/IPRATROPIUM 0.5 MG NEB (SCH) INH ONE (07:45)
[2017-07-06] MEDS ORDERED: PROMETHAZINE INJ 25 MG/ML VIAL IM ONE (07:45)
[2017-07-06] MEDS ORDERED: DEXAMETHASONE SOD PHOS 4 MG/ML VIAL IM ONE (07:45)
--- NOTE | 2017-07-06 07:47 | RADRPT ---
EXAM DATE/TIME: 07/06/2017 07:34 [facility] COMPARISON: CHEST SINGLE AP, July 03, 2017, 11:55. INDICATIONS : Shortness of breath, midline chest pain and cough. MEDICAL HISTORY : Chronic obstructive pulmonary disease. Hypertension Myocardial infarction. SURGICAL HISTORY : None. ENCOUNTER: Initial ACUITY: 3 weeks PAIN SCORE: 3/10 LOCATION: Chest, midline. FINDINGS: A single view of the chest demonstrates the lungs to be symmetrically aerated without evidence of mas s, infiltrate or effusion. The cardiomediastinal contours are unremarkable. Osseous structures are intact. Linear scarring versus atelectasis left midlung. CONCLUSION: No significant change has occurred. Antwan Jensen MD on July 06, 2017 at 7:46 Board Certified Radiologist. This report was verified electronically.
[2017-07-06 07:58] LABS: ALT (GPT) 25 U/L (10-53); ANION GAP 9 MEQ/L (5-15); AST (GOT) 22 U/L (15-37); BICARBONATE 28.7 MEQ/L (21.0-32.0); BLOOD UREA NITROGEN 11 MG/DL (7-18); CHLORIDE 100 MEQ/L (98-107); GLOMERULAR FILTRATION RATE 50 ML/MIN (>89); POTASSIUM 3.4 MEQ/L (3.5-5.1); SODIUM (NA) 138 MEQ/L (136-145)
[2017-07-06 08:00] VITALS: O2SAT 98
[2017-07-06 08:00] LABS: ALKALINE PHOSPHATASE 110 U/L (45-117); TOTAL BILIRUBIN ADULT 0.4 MG/DL (0.2-1.0)
[2017-07-06] MEDS ORDERED: PROM1SUP7 RECTAL (08:24)
[2017-07-06] MEDS ORDERED: BENZ100 PO (08:24)
[2017-07-06] MEDS ORDERED: CETI10 PO (08:24)
[2017-07-06 08:31] LABS: BANDS 1 % (0-6); CORRECTED NUCLEATED RBC 2 /100 WBC (0-0); MYELOCYTES 5 % (0-0); NEUTROPHIL # MANUAL DIFF 0.7 TH/MM3 (1.8-7.7); PLATELET ESTIMATE SMEAR NORMAL (NORMAL); PLATELET MORPHOLOGY NORMAL (NORMAL); POLYS (SEG NEUTROPHILS) 22 % (16-70); WBC DIFF SAMPLE 100
[2017-07-06 08:32] LABS: BLASTS 9 % (0-0); SCAN/DIFF FINAL DIFF MANUAL
[2017-07-06 09:26] VITALS: BP 135/69; PULSE 70; RESP 20; O2SAT 95
--- NOTE | 2017-07-06 18:02 | EKG ---
Date Performed: 07/06/2017 Time Performed: 07:03:17 PTAGE: 67 years EKG: Sinus rhythm NONSPECIFIC T-WAVE ABNORMALITY BORDERLINE ECG INTERPRETATION BASED ON A DEFAULT AGE OF 40 YEARS PREVIOUS TRACING : 06/27/2017 05.39 DOCTOR: Venu Watters Interpretating Date/Time 07/06/2017 17:59:14
== END 2017-07-06 09:30 | disposition home or self-care (01) ==
LOC: NEPE 06:52
DX: R05 Cough (principal); R11.2 Nausea with vomiting, unspecified; R06.02 Shortness of breath; R10.13 Epigastric pain; J44.9 Chronic obstructive pulmonary disease, unspecified; I10 Essential (primary) hypertension; E03.9 Hypothyroidism, unspecified; I48.91 Unspecified atrial fibrillation; R94.31 Abnormal electrocardiogram [ECG] [EKG]
CPT/HCPCS: 71010; 80053; 83690; 85007; 85027; 93005; 94664; 96372; 99285; J1100; J2550

== ENCOUNTER 2017-07-09 19:03 | Emergency (ER) | payer MEDICARE, OTHER ==
[~2017-07-09 19:03] MED LIST changes: +BENZ100 PO; +CETI10 PO; +PROM1SUP7 RECTAL
[2017-07-09] MEDS ORDERED: SODIUM CHLOR 0.9% 1000 ML INJ 1,000 ML IV ONE (19:18)
[2017-07-09 19:25] VITALS: RESP 24; TEMP 98.2; O2SAT 98
--- NOTE | 2017-07-09 19:25 | PD ---
HPI Chief Complaint: GI Complaint Time Seen by Provider: 19:17 Travel History International Travel<30 days: No Contact w/Intl Traveler<30days: No History of Present Illness HPI Patient is a 67-year-old female presenting to emergency department for evaluation of nausea, vomiting and epigastric abdominal pain. Patient states this has been going on for several weeks. She states that she is unable to tolerate pills, food or fluids. She states she feels dehydrated. Patient also reports feeling anxious. She has been seen and evaluated the emergency department several times with the same complaints. She states that she was told to come to the emergency department by her oncologist Dr. Yarbrough. 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) High Cholesterol: Yes Chemotherapy: Yes Chest Pain: No Congestive Heart Failure: No COPD: Yes Diminished Hearing: No Endocrine: Yes Headaches: Yes Hypertension: Yes Musculoskeletal: Yes (back) Neurologic: Yes (brain aneurysms, ANGIOMA) Myocardial Infarction: Yes (10/07) Thyroid Disease: Yes (Hypothyrodism) Menopausal: Yes Past Surgical History Abdominal Surgery: Yes Appendectomy: Yes Section: Yes Other Surgery: Yes (back, VARICOSE VEIN REMOVAL) Social History Alcohol Use: No Tobacco Use: Yes (quit 2012) Substance Use: No Allergies-Medications (Allergen,Severity, Reaction): Coded Allergies: penicillin G (Verified Allergy, Severe, 07/09/17) Reported Meds & Prescriptions Reported Meds & Active Scripts Active Tessalon Perles (Benzonatate) 100 Mg Cap 100 Mg PO TID PRN Cetirizine (Cetirizine HCl) 10 Mg Tab 10 Mg PO DAILY Nitrofurantoin Monohydrate Macrocrystals (Nitrofurantoin Monoh/Nitrofur Macro) 100 Mg Cap 100 Mg PO BID 7 Days Levaquin (Levofloxacin) 750 Mg Tablet 750 Mg PO DAILY Dronabinol 5 Mg Cap 5 Mg PO BID@,16 30 Days Xanax (Alprazolam) 0.25 Mg Tab 0.25 Mg PO TID PRN 7 Days Amiodarone (Amiodarone HCl) 200 Mg Tab 200 Mg PO DAILY 30 Days Atorvastatin (Atorvastatin Calcium) 40 Mg Tab 40 Mg PO DAILY 30 Days Reported Prochlorperazine Maleate 10 Mg Tab 10 Mg PO Q6H PRN Levothyroxine (Levothyroxine Sodium) 100 Mcg Tab 100 Mcg PO DAILY Review of Systems Except as stated in HPI: all other systems reviewed are Neg Gastrointestinal: Positive: Nausea, Vomiting, Abdominal Pain Psychiatric: Positive: Anxiety Physical Exam Narrative GENERAL: Well-developed, well-nourished, alert female. Resting comfortably in no acute distress. SKIN: Warm and dry. HEAD: Atraumatic. Normocephalic. EYES: Pupils equal and round. No scleral icterus. No injection or drainage. ENT: No nasal bleeding or discharge. Mucous membranes pink and moist. NECK: Trachea midline. No JVD. CARDIOVASCULAR: Regular rate and rhythm. RESPIRATORY: No accessory muscle use. Clear to auscultation. Breath sounds equal bilaterally. GASTROINTESTINAL: Abdomen soft, nondistended. Hepatic and splenic margins not palpable. Mildly tender to palpation epigastric region, no rebound, no guarding. Positive bowel sounds. MUSCULOSKELETAL: Extremities without clubbing, cyanosis, or edema. No obvious deformities. NEUROLOGICAL: Awake and alert. No obvious cranial nerve deficits. Motor grossly within normal limits. Five out of 5 muscle strength in the arms and legs. Normal speech. PSYCHIATRIC: Anxious mood and affect; insight and judgment normal. Data Data Last Documented VS Vital Signs Date Time Temp Pulse Resp B/P (MAP) Pulse Ox O2 Delivery O2 Flow Rate FiO2 07/09/17 22:30 73 20 123/59 (80) 98 07/09/17 19:25 98.2 Nasal Cannula 2.00 Orders Orders Complete Blood Count With Diff (07/09/17 19:18) Comprehensive Metabolic Panel (07/09/17 19:18) Iv Access Insert/Monitor (07/09/17 19:18) Ecg Monitoring (07/09/17 19:18) Oximetry (07/09/17 19:18) Ondansetron Inj (Zofran Inj) (07/09/17 19:30) Pantoprazole Inj (Protonix Inj) (07/09/17 19:30) Sodium Chlor 0.9% 1000 Ml Inj (Ns 1000 M (07/09/17 19:18) Sodium Chloride 0.9% Flush (Ns Flush) (07/09/17 19:30) Sucralfate Liq (Carafate Liq) (07/09/17 20:30) Ct Abd/Pel W Iv Contrast(Rout) (07/09/17 ) Iohexol 350 Inj (Omnipaque 350 Inj) (07/09/17 22:13) Labs Laboratory Tests Test 07/09/17 19:20 White Blood Count 2.8 TH/MM3 Red Blood Count 3.15 MIL/MM3 Hemoglobin 11.2 GM/DL Hematocrit 33.5 % Mean Corpuscular Volume 106.1 FL Mean Corpuscular Hemoglobin 35.5 PG Mean Corpuscular Hemoglobin Concent 33.5 % Red Cell Distribution Width 18.5 % Platelet Count 180 TH/MM3 Mean Platelet Volume 8.7 FL CBC Comment AUTO DIFF Differential Total Cells Counted 100 Neutrophils % (Manual) 29 % Band Neutrophils % 2 % Lymphocytes % 60 % Monocytes % 2 % Other Cells % 1 % Neutrophils # (Manual) 0.9 TH/MM3 Myelocytes 2 % Nucleated Red Blood Cells 3 /100 WBC Differential Comment FINAL DIFF MANUAL Blastocytes 4 % Platelet Estimate NORMAL Platelet Morphology Comment NORMAL Blood Urea Nitrogen 15 MG/DL Creatinine 1.19 MG/DL Random Glucose 100 MG/DL Total Protein 6.6 GM/DL Albumin 2.9 GM/DL Calcium Level 8.8 MG/DL Alkaline Phosphatase 108 U/L Aspartate Amino Transf (AST/SGOT) 19 U/L Alanine Aminotransferase (ALT/SGPT) 25 U/L Total Bilirubin 0.9 MG/DL Sodium Level 136 MEQ/L Potassium Level 4.0 MEQ/L Chloride Level 99 MEQ/L Carbon Dioxide Level 28.2 MEQ/L Anion Gap 9 MEQ/L Estimat Glomerular Filtration Rate 45 ML/MIN [facility] Medical Decision Making Medical Screen Exam Complete: Yes Emergency Medical Condition: Yes Medical Record Reviewed: Yes Interpretation(s) Laboratory Tests Test 07/09/17 19:20 White Blood Count 2.8 TH/MM3 Red Blood Count 3.15 MIL/MM3 Hemoglobin 11.2 GM/DL Hematocrit 33.5 % Mean Corpuscular Volume 106.1 FL Mean Corpuscular Hemoglobin 35.5 PG Mean Corpuscular Hemoglobin Concent 33.5 % Red Cell Distribution Width 18.5 % Platelet Count 180 TH/MM3 Mean Platelet Volume 8.7 FL CBC Comment AUTO DIFF Differential Total Cells Counted 100 Neutrophils % (Manual) 29 % Band Neutrophils % 2 % Lymphocytes % 60 % Monocytes % 2 % Other Cells % 1 % Neutrophils # (Manual) 0.9 TH/MM3 Myelocytes 2 % Nucleated Red Blood Cells 3 /100 WBC Differential Comment FINAL DIFF MANUAL Blastocytes 4 % Platelet Estimate NORMAL Platelet Morphology Comment NORMAL Blood Urea Nitrogen 15 MG/DL Creatinine 1.19 MG/DL Random Glucose 100 MG/DL Total Protein 6.6 GM/DL Albumin 2.9 GM/DL Calcium Level 8.8 MG/DL Alkaline Phosphatase 108 U/L Aspartate Amino Transf (AST/SGOT) 19 U/L Alanine Aminotransferase (ALT/SGPT) 25 U/L Total Bilirubin 0.9 MG/DL Sodium Level 136 MEQ/L Potassium Level 4.0 MEQ/L Chloride Level 99 MEQ/L Carbon Dioxide Level 28.2 MEQ/L Anion Gap 9 MEQ/L Estimat Glomerular Filtration Rate 45 ML/MIN Vital Signs Date Time Temp Pulse Resp B/P (MAP) Pulse Ox O2 Delivery O2 Flow Rate FiO2 07/09/17 22:30 73 20 123/59 (80) 98 07/09/17 21:00 110 20 115/76 (89) 99 07/09/17 20:49 73 20 124/81 (95) 95 07/09/17 19:26 24 07/09/17 19:25 98.2 24 98 Nasal Cannula 2.00 Differential Diagnosis Gastritis versus anxiety versus metabolic abnormality versus malingering versus viral syndrome versus other Narrative Course Patient is a 67-year-old female presenting to the emergency department for the third time in approximately one week with similar complaints. She appears well , labs ordered and pending. CBC, chemistry reviewed, no acute findings identified. Patient was given Protonix, IV fluids and Carafate. She was observed resting comfortably. CT scan abdomen and pelvis is pending. Physical exam appears most consistent with gastritis currently. CT scan of the abdomen and pelvis which was read by the radiologist shows no acute abnormalities. There is scattered colonic diverticula as well as a 3.2 cm abdominal aortic aneurysm. Discharged home with ranitidine and Carafate. She was encouraged to follow-up with her primary doctor. She was reassured at this time that there were no acute findings. Again physical examination appears most consistent with gastritis. He is stable for discharge. Diagnosis Primary Impression: Gastritis Qualified Codes: K29.70 - Gastritis, unspecified, without bleeding Referrals: Roberto Yarbrough MD Primary Care Physician Patient Instructions: Diet for Stomach Ulcers and Gastritis (GEN), Gastritis ( ED), General Instructions Additional Instructions: Follow-up with her primary doctor Maintain a bland, easy to digest diet Maintain adequate fluid intake Return to emergency department for any new or worsening symptoms Take medications as directed Med/Other Pt SpecificInfo: Prescription(s) given Scripts Ranitidine (Ranitidine) 150 Mg Tab 150 MG PO BID for Heartburn Management, #60 TAB 0 Refills Prov: Mariella Mike 07/09/17 Sucralfate (Carafate) 1 Gram Tab 1 GM PO QID for Ulcer Prevention, #120 TAB 0 Refills On empty stomach Prov: Mariella Mike 07/09/17 Disposition: 01 DISCHARGE HOME Condition: Stable Mariella Mike Jul 09, 2017 19:25
[2017-07-09] MEDS ORDERED: PANTOPRAZOLE SODIUM 40 MG VIAL IV PUSH ONE (19:30)
[2017-07-09] MEDS ORDERED: SODIUM CHLORIDE 0.9% FLUSH 10 ML FLUSH IVF PRN (19:30)
[2017-07-09] MEDS ORDERED: ONDANSETRON HCL 4 MG/2 ML VIAL IV PUSH ONE (19:30)
[2017-07-09 20:20] LABS: HEMATOCRIT 33.5 % (35.0-46.0); MEAN CELL VOLUME 106.1 FL (80.0-100.0); MEAN CORPUSCULAR HEMOGLOBIN 35.5 PG (27.0-34.0); MEAN CORPUSCULAR HGB CONC 33.5 % (32.0-36.0); PLATELET COUNT 180 TH/MM3 (150-450); RED BLOOD COUNT 3.15 MIL/MM3 (4.00-5.30); RED CELL DISTRIBUTION WIDTH 18.5 % (11.6-17.2); WHITE BLOOD COUNT 2.8 TH/MM3 (4.0-11.0)
[2017-07-09 20:24] LABS: ALT (GPT) 25 U/L (10-53)
[2017-07-09 20:25] LABS: ANION GAP 9 MEQ/L (5-15); AST (GOT) 19 U/L (15-37); BICARBONATE 28.2 MEQ/L (21.0-32.0); BLOOD UREA NITROGEN 15 MG/DL (7-18); CHLORIDE 99 MEQ/L (98-107); GLOMERULAR FILTRATION RATE 45 ML/MIN (>89); SODIUM (NA) 136 MEQ/L (136-145)
[2017-07-09 20:27] LABS: ALKALINE PHOSPHATASE 108 U/L (45-117); TOTAL BILIRUBIN ADULT 0.9 MG/DL (0.2-1.0)
[2017-07-09] MEDS ORDERED: SUCRALFATE 1 GM/10 ML CUP PO ONE (20:30)
[2017-07-09 20:35] LABS: HEMO FLAGS AUTO DIFF
[2017-07-09 20:49] VITALS: BP 124/81; PULSE 73; RESP 20; O2SAT 95
[2017-07-09 21:00] VITALS: BP 115/76; PULSE 110; RESP 20; O2SAT 99
[2017-07-09 21:44] LABS: BANDS 2 % (0-6); BLASTS 4 % (0-0); CORRECTED NUCLEATED RBC 3 /100 WBC (0-0); MYELOCYTES 2 % (0-0); NEUTROPHIL # MANUAL DIFF 0.9 TH/MM3 (1.8-7.7); POLYS (SEG NEUTROPHILS) 29 % (16-70); WBC DIFF SAMPLE 100
[2017-07-09 21:45] LABS: PLATELET ESTIMATE SMEAR NORMAL (NORMAL); PLATELET MORPHOLOGY NORMAL (NORMAL); SCAN/DIFF FINAL DIFF MANUAL
[2017-07-09] MEDS ORDERED: IOHEXOL 350 MG/ML 10 ML VIAL (for RAD DIAG) IVCONTRAST ONE (22:13)
[2017-07-09 22:30] VITALS: BP 123/59; PULSE 73; RESP 20; O2SAT 98
--- NOTE | 2017-07-09 23:08 | RADRPT ---
EXAM DATE/TIME: 07/09/2017 21:58 [facility] COMPARISON: CT ABDOMEN & PELVIS W CONTRAST, April 29, 2011, 11:00. INDICATIONS : Abdominal pain. IV CONTRAST: 97 cc Omnipaque 350 (iohexol) IV ORAL CONTRAST: No oral contrast ingested. RADIATION DOSE: 7.44 CTDIvol (mGy) MEDICAL HISTORY : Cardiovascular disease. Seizures. Hypertension.CVA. A-fib. SURGICAL HISTORY : Appendectomy. ENCOUNTER: Initial ACUITY: 1 day PAIN SCALE: 4/10 LOCATION: Bilateral abdomen TECHNIQUE: Volumetric scanning of the abdomen and pelvis was performed. Using automated exposure control and ad justment of the mA and/or kV according to patient size, radiation dose was kept as low as reasonably achievable to obtain optimal diagnostic quality images. DICOM format image data is available electro nically for review and comparison. FINDINGS: LOWER LUNGS: The visualized lower lungs are clear. LIVER: Homogeneous density without lesion. There is no dilation of the biliary tree. No calcified gallston es. SPLEEN: Normal size without lesion. PANCREAS: Within normal limits. KIDNEYS: Normal in size and shape. There is no solid mass, stone or hydronephrosis. Small renal cysts are see n. ADRENAL GLANDS: Within normal limits. VASCULAR: There is mild aneurysmal dilatation of the abdominal aorta measuring 3.2 cm. BOWEL/MESENTERY: The stomach, small bowel, and colon demonstrate no acute abnormality. There is no free intraperitone al air or fluid. There are scattered colonic diverticula without inflammatory change. ABDOMINAL WALL: Within normal limits. RETROPERITONEUM: There is no lymphadenopathy. BLADDER: No wall thickening or mass. REPRODUCTIVE: Within normal limits. INGUINAL: There is no lymphadenopathy or hernia. MUSCULOSKELETAL: There is degenerative change in the lumbar spine. CONCLUSION: 1. No acute abnormalities seen. 2. Scattered colonic diverticula. 3. 3.2 cm abdominal aortic aneurysm. Raoul Morales MD on July 09, 2017 at 23:03 Board Certified Radiologist. This report was verified electronically.
[2017-07-09] MEDS ORDERED: CARA1TAB6 PO (23:16)
[2017-07-09] MEDS ORDERED: RANI150T PO (23:16)
[2017-07-10 00:08] VITALS: BP 112/58
== END 2017-07-10 00:11 | disposition home or self-care (01) ==
LOC: NEPE 19:03
DX: K29.70 Gastritis, unspecified, without bleeding (principal); I48.91 Unspecified atrial fibrillation; Z88.0 Allergy status to penicillin
CPT/HCPCS: 74177; 80053; 85007; 85027; 96361; 96374; 96375; 99285; C9113; J2405; J7030; Q9967

== ENCOUNTER 2017-07-24 20:52 | Emergency (ER) | payer MEDICARE, OTHER ==
[~2017-07-24] VITALS: Ht 165.1 cm; Wt 85.0 kg
[~2017-07-24 20:52] MED LIST changes: +CARA1TAB6 PO; -HYDR5SYP10 PO; -IPRASOL NEB; +RANI150T PO
[2017-07-24 21:01] VITALS: BP 130/73; PULSE 81; RESP 18; TEMP 97.8; O2SAT 96
[2017-07-24 21:39] VITALS: BP 122/70; PULSE 77; RESP 16; O2SAT 95
[2017-07-24] MEDS ORDERED: SODIUM CHLOR 0.9% 1000 ML INJ 1,000 ML IV SCH (21:41)
[2017-07-24] MEDS ORDERED: METOCLOPRAMIDE HCL 10 MG/2 ML VIAL IV PUSH ONE (21:45)
[2017-07-24] MEDS ORDERED: SODIUM CHLORIDE 0.9% FLUSH 10 ML FLUSH IV FLUSH PRN (21:45)
--- NOTE | 2017-07-24 21:47 | PD ---
HPI Chief Complaint: GI Complaint Time Seen by Provider: 21:38 Travel History International Travel<30 days: No Contact w/Intl Traveler<30days: No Traveled to known affect area: No History of Present Illness HPI 67-year-old female with history of AML here for evaluation of nausea and vomiting. Patient reports that she has had symptoms every other week for the last couple of weeks. Last round of chemotherapy was 4 weeks ago and she is followed by oncologist Dr. Yarbrough. She is having some epigastric abdominal discomfort. She also has a cough productive of whitish sputum. Emesis is reported as white, nonbloody. No diarrhea. History of appendectomy, no other abdominal surgeries. She denies fevers, however complains of subjective chills. 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) Cardiovascular Problems: Yes High Cholesterol: Yes Chemotherapy: Yes Chest Pain: No Congestive Heart Failure: No COPD: Yes Diminished Hearing: No Endocrine: Yes Headaches: Yes Hypertension: Yes Musculoskeletal: Yes (back) Neurologic: Yes (brain aneurysms, ANGIOMA) Psychiatric: Yes Myocardial Infarction: Yes (10/07) Thyroid Disease: Yes (Hypothyrodism) Tetanus Vaccination: Unknown ?: Not LMP: menapause Menopausal: Yes : 2 Para: 2 Past Surgical History Abdominal Surgery: Yes Appendectomy: Yes Section: Yes Other Surgery: Yes (back, VARICOSE VEIN REMOVAL) Social History Alcohol Use: No Tobacco Use: No (quit 2012) Substance Use: No Allergies-Medications (Allergen,Severity, Reaction): Coded Allergies: penicillin G (Verified Allergy, Severe, 07/09/17) Reported Meds & Prescriptions Reported Meds & Active Scripts Active Ranitidine (Ranitidine HCl) 150 Mg Tab 150 Mg PO BID Dronabinol 5 Mg Cap 5 Mg PO BID@,16 30 Days Reported Levothyroxine (Levothyroxine Sodium) 100 Mcg Tab 100 Mcg PO DAILY Review of Systems Except as stated in HPI: all other systems reviewed are Neg Physical Exam Narrative GENERAL: Well-developed, well-nourished, comfortable, no apparent distress. SKIN: Focused skin assessment warm/dry. No rash. No pallor. HEAD: Atraumatic. Normocephalic. EYES: Pupils equal and round. No scleral icterus. No injection or drainage. ENT: No nasal bleeding or discharge. Mucous membranes pink and moist. NECK: Trachea midline. No JVD. CARDIOVASCULAR: Regular rate and rhythm. No murmur appreciated. RESPIRATORY: No accessory muscle use. Clear to auscultation. Breath sounds equal bilaterally. GASTROINTESTINAL: Abdomen soft, non-tender, nondistended. Normal bowel sounds. MUSCULOSKELETAL: No obvious deformities. No clubbing. No cyanosis. No edema. NEUROLOGICAL: Awake and alert. No obvious cranial nerve deficits. Motor grossly within normal limits. Normal speech. PSYCHIATRIC: Appropriate mood and affect; insight and judgment normal. Data Data Last Documented VS Vital Signs Date Time Temp Pulse Resp B/P (MAP) Pulse Ox O2 Delivery O2 Flow Rate FiO2 07/24/17 22:04 16 99 Nasal Cannula 2.00 07/24/17 21:39 77 07/24/17 21:01 97.8 Orders Orders Complete Blood Count With Diff (07/24/17 21:41) Comprehensive Metabolic Panel (07/24/17 21:41) Lipase (07/24/17 21:41) Urinalysis - C+S If Indicated (07/24/17 21:41) Iv Access Insert/Monitor (07/24/17 21:41) Ecg Monitoring (07/24/17 21:41) Oximetry (07/24/17 21:41) Sodium Chlor 0.9% 1000 Ml Inj (Ns 1000 M (07/24/17 21:41) Sodium Chloride 0.9% Flush (Ns Flush) (07/24/17 21:45) Metoclopramide Inj (Reglan Inj) (07/24/17 21:45) Chest, Single Ap (07/24/17 ) Labs Laboratory Tests Test 07/24/17 21:55 07/24/17 22:30 White Blood Count 1.5 TH/MM3 Red Blood Count 2.90 MIL/MM3 Hemoglobin 10.4 GM/DL Hematocrit 31.1 % Mean Corpuscular Volume 107.5 FL Mean Corpuscular Hemoglobin 35.8 PG Mean Corpuscular Hemoglobin Concent 33.3 % Red Cell Distribution Width 17.3 % Platelet Count 108 TH/MM3 Mean Platelet Volume 9.1 FL CBC Comment AUTO DIFF Differential Total Cells Counted 100 Neutrophils % (Manual) 22 % Lymphocytes % 71 % Monocytes % 2 % Eosinophils % 1 % Basophils % 1 % Neutrophils # (Manual) 0.4 TH/MM3 Myelocytes 2 % Promyelocytes 1 % Nucleated Red Blood Cells 1 /100 WBC Differential Comment FINAL DIFF MANUAL Smudge Cells Platelet Estimate LOW Platelet Morphology Comment NORMAL Spherocytes OCC Blood Urea Nitrogen 9 MG/DL Creatinine 1.12 MG/DL Random Glucose 89 MG/DL Total Protein 6.4 GM/DL Albumin 2.7 GM/DL Calcium Level 8.5 MG/DL Alkaline Phosphatase 116 U/L Aspartate Amino Transf (AST/SGOT) 16 U/L Alanine Aminotransferase (ALT/SGPT) 9 U/L Total Bilirubin 0.7 MG/DL Sodium Level 136 MEQ/L Potassium Level 4.3 MEQ/L Chloride Level 102 MEQ/L Carbon Dioxide Level 25.9 MEQ/L Anion Gap 8 MEQ/L Estimat Glomerular Filtration Rate 48 ML/MIN Lipase 160 U/L Urine Color YELLOW Urine Turbidity CLEAR Urine pH 7.0 Urine Specific Blevins 1.013 Urine Protein TRACE mg/dL Urine Glucose (UA) NEG mg/dL Urine Ketones NEG mg/dL Urine Occult Blood NEG Urine Nitrite NEG Urine Bilirubin NEG Urine Urobilinogen LESS THAN 2.0 MG/DL Urine Leukocyte Esterase MOD Urine RBC 2 /hpf Urine WBC 2 /hpf Urine Squamous Epithelial Cells 6 /hpf Urine Renal Epithelial Cells <1 /hpf Urine Bacteria RARE /hpf Urine Hyaline Casts 1 /lpf Urine Mucus FEW /lpf Microscopic Urinalysis Comment CULT NOT INDICATED MDM Medical Decision Making Medical Screen Exam Complete: Yes Emergency Medical Condition: Yes Differential Diagnosis Nausea and vomiting, dehydration, gastritis, gastroparesis Narrative Course Vital signs reviewed and are within normal limits. CBC: WBC 1.5, hemoglobin 10.4, hematocrit 31.1, platelets 108, neutrophils 22%, manual neutrophil number of 0.4 CMP is essentially unremarkable. Lipase is 160. UA is not suggestive of UTI. The patient was given IV fluids and a dose of IV Reglan and states that she is feeling significantly improved. She states she would like to be discharged home. She has a follow-up appointment with her director of events Dr. Yarbrough in 2 days. She is afebrile, and although she is neutropenic, she has been neutropenic in the past. Previous consultations by hematology for her neutropenia advised against Neupogen when the patient was not septic. Today she is not displaying any signs of sepsis. She will be discharged home with strict return instructions. Diagnosis Primary Impression: Nausea and vomiting Qualified Codes: R11.2 - Nausea with vomiting, unspecified Additional Impression: Neutropenia Qualified Codes: D70.9 - Neutropenia, unspecified Referrals: Roberto Yarbrough MD 2 days Additional Instructions: Follow-up with Dr. Yarbrough on Sunday as scheduled. Stay hydrated with plenty of fluids. Return to the emergency department for worsening symptoms or any other concerns. Scripts Metoclopramide (Reglan) 10 Mg Tab 10 MG PO TID, #20 TAB 0 Refills Prov: Umberto Pineda MD 07/24/17 Disposition: 01 DISCHARGE HOME Condition: Stable Umberto Pineda MD Jul 24, 2017 21:47
[2017-07-24 22:04] VITALS: RESP 16; O2SAT 99
--- NOTE | 2017-07-24 22:09 | RADRPT ---
EXAM DATE/TIME: 07/24/2017 21:47 [facility] COMPARISON: No previous studies available for comparison. INDICATIONS : Short of breath, Cough. MEDICAL HISTORY : Chronic obstructive pulmonary disease. Hypertension Myocardial infarction. SURGICAL HISTORY : None. ENCOUNTER: Initial ACUITY: 1 month PAIN SCORE: 0/10 LOCATION: Bilateral chest FINDINGS: A single view of the chest demonstrates the lungs to be symmetrically aerated without evidence of mas s, infiltrate or effusion. There is minimal basilar atelectasis. The cardiomediastinal contours are u nremarkable. Osseous structures are intact. CONCLUSION: 1. Minimal basilar atelectasis or scarring. No effusion or pneumothorax. Rivas Tejeda MD on July 24, 2017 at 22:06 Board Certified Radiologist. This report was verified electronically.
[2017-07-24 22:23] LABS: HEMATOCRIT 31.1 % (35.0-46.0); MEAN CELL VOLUME 107.5 FL (80.0-100.0); MEAN CORPUSCULAR HEMOGLOBIN 35.8 PG (27.0-34.0); MEAN CORPUSCULAR HGB CONC 33.3 % (32.0-36.0); PLATELET COUNT 108 TH/MM3 (150-450); RED CELL DISTRIBUTION WIDTH 17.3 % (11.6-17.2); WHITE BLOOD COUNT 1.5 TH/MM3 (4.0-11.0)
[2017-07-24 22:30] LABS: HEMO FLAGS AUTO DIFF
[2017-07-24 22:53] LABS: ALT (GPT) 9 U/L (10-53)
[2017-07-24 22:56] LABS: ALKALINE PHOSPHATASE 116 U/L (45-117); TOTAL BILIRUBIN ADULT 0.7 MG/DL (0.2-1.0)
[2017-07-24 22:58] LABS: ANION GAP 8 MEQ/L (5-15); AST (GOT) 16 U/L (15-37); BICARBONATE 25.9 MEQ/L (21.0-32.0); BLOOD UREA NITROGEN 9 MG/DL (7-18); CHLORIDE 102 MEQ/L (98-107); GLOMERULAR FILTRATION RATE 48 ML/MIN (>89); SODIUM (NA) 136 MEQ/L (136-145)
[2017-07-24 22:59] LABS: POTASSIUM 4.3 MEQ/L (3.5-5.1)
[2017-07-24 23:04] LABS: BACTERIA, URINE RARE /hpf; BLOOD, URINE NEG (NEG); COMMENT (UR) CULT NOT INDICATED; CULTURE IF INDICATED CULT NOT INDICATED; GLUCOSE,URINE NEG (NEG); HYALINE CAST, URINE 1 /lpf (RARE); KETONE, URINE NEG (NEG); MUCUS URINE FEW /lpf (OCC); NITRITE,URINE NEG (NEG); RENAL EPITHELIAL CELLS <1 /hpf; SQUAMOUS EPITHELIAL CELL URINE 6 /hpf (0-5); URINE COLOR YELLOW (YELLW/STRAW)
[2017-07-24 23:30] LABS: BASOPHILS 1 % (0-2); CORRECTED NUCLEATED RBC 1 /100 WBC (0-0); EOSINOPHILS 1 % (0-4); MYELOCYTES 2 % (0-0); POLYS (SEG NEUTROPHILS) 22 % (16-70); PROMYELOCYTES 1 % (0-0); WBC DIFF SAMPLE 100
[2017-07-24 23:32] LABS: PLATELET ESTIMATE SMEAR LOW (NORMAL); PLATELET MORPHOLOGY NORMAL (NORMAL); SPHEROCYTES OCC (NORMAL)
[2017-07-24 23:33] LABS: SCAN/DIFF FINAL DIFF MANUAL
[2017-07-24 23:35] LABS: NEUTROPHIL # MANUAL DIFF 0.4 TH/MM3 (1.8-7.7)
[2017-07-24] MEDS ORDERED: REGL10TA5 PO (23:51)
== END 2017-07-25 00:16 | disposition home or self-care (01) ==
LOC: NEPD 20:52
DX: R11.2 Nausea with vomiting, unspecified (principal); D70.9 Neutropenia, unspecified
CPT/HCPCS: 71010; 80053; 81001; 83690; 85007; 85027; 96374; 99284; J2765; J7030

== ENCOUNTER 2017-08-04 11:00 | Emergency (ER) | payer MEDICARE, OTHER ==
[~2017-08-04] VITALS: Ht 167.6 cm; Wt 78.0 kg
[~2017-08-04 11:00] MED LIST changes: -ALPR.25 PO; -AMIO200T PO; -ATOR40TA16 PO; -BENZ100 PO; -CARA1TAB6 PO; -CETI10 PO; -LEVA750T9 PO; -NITR100C4 PO; -PROC10TA PO; -PROM1SUP7 RECTAL; +REGL10TA5 PO
[2017-08-04 11:05] VITALS: BP 151/66; PULSE 93; RESP 16; TEMP 97.7; O2SAT 97
--- NOTE | 2017-08-04 11:25 | PD ---
HPI Chief Complaint: GI Complaint Time Seen by Provider: 11:10 Travel History International Travel<30 days: No Contact w/Intl Traveler<30days: No Traveled to known affect area: No History of Present Illness HPI The patient was seen and examined in the presence of the nurse. This patient complains of a diffuse whole body burning pain that started During the night. He currently has resolved and she is not having that pain now. Duration was 6 hours. Included arms and legs and torso etc. She also complains of nausea. Patient has history of AML and will be doing another round of chemotherapy in the near future. Symptoms severity is moderate. No alleviating factors. Denies vomiting or diarrhea or fever. 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) Cardiovascular Problems: Yes High Cholesterol: Yes Chemotherapy: Yes Chest Pain: No Congestive Heart Failure: No COPD: Yes Diminished Hearing: No Endocrine: Yes Headaches: Yes Hypertension: Yes Musculoskeletal: Yes (back) Neurologic: Yes (brain aneurysms, ANGIOMA) Psychiatric: Yes Myocardial Infarction: Yes (10/07) Thyroid Disease: Yes (Hypothyrodism) ?: Not Menopausal: Yes : 2 Para: 2 Past Surgical History Abdominal Surgery: Yes Appendectomy: Yes Section: Yes Other Surgery: Yes (back, VARICOSE VEIN REMOVAL) Social History Alcohol Use: No Tobacco Use: No (quit 2012) Substance Use: No Allergies-Medications (Allergen,Severity, Reaction): Coded Allergies: penicillin G (Verified Allergy, Severe, 07/09/17) aspirin (Verified Allergy, Unknown, 08/04/17) Reported Meds & Prescriptions Reported Meds & Active Scripts Active Reglan (Metoclopramide HCl) 10 Mg Tab 10 Mg PO TID Ranitidine (Ranitidine HCl) 150 Mg Tab 150 Mg PO BID Dronabinol 5 Mg Cap 5 Mg PO BID@,16 30 Days Reported Levothyroxine (Levothyroxine Sodium) 100 Mcg Tab 100 Mcg PO DAILY Review of Systems General / Constitutional: No: Fever Eyes: No: Visual changes HENT: No: Headaches Cardiovascular: No: Chest Pain or Discomfort Respiratory: No: Shortness of Breath Gastrointestinal: Positive: Nausea, No: Abdominal Pain Genitourinary: No: Dysuria Musculoskeletal: Positive: Weakness, Pain Skin: No Rash Neurologic: Positive: Weakness Psychiatric: No: Depression Endocrine: No: Polydipsia Hematologic/Lymphatic: No: Easy Bruising Physical Exam Narrative GENERAL: Well-nourished, well-developed patient in no apparent distress. SKIN: Focused skin assessment reveals no rash and nodules. Skin is Warm and dry. HEAD: Atraumatic. Normocephalic. EYES: Pupils equal and round. No scleral icterus. No injection or drainage. ENT: No nasal bleeding or discharge. Mucous membranes pink and moist. NECK: Trachea midline. No JVD. CARDIOVASCULAR: Regular rate and rhythm. No murmur appreciated. RESPIRATORY: No accessory muscle use. Clear to auscultation. Breath sounds equal bilaterally. GASTROINTESTINAL: Abdomen soft, non-tender, nondistended. Hepatic and splenic margins not palpable. MUSCULOSKELETAL: No obvious deformities. No clubbing. No cyanosis. No edema. NEUROLOGICAL: Awake and alert. No obvious cranial nerve deficits. Motor grossly within normal limits. Normal speech. PSYCHIATRIC: Appropriate mood and affect; insight and judgment normal. Data Data Last Documented VS Vital Signs Date Time Temp Pulse Resp B/P (MAP) Pulse Ox O2 Delivery O2 Flow Rate FiO2 08/04/17 11:07 17 08/04/17 11:05 97.7 93 151/66 (94) 97 Orders Orders Iv Access Insert/Monitor (08/04/17 11:21) Complete Blood Count With Diff (08/04/17 11:21) Basic Metabolic Panel (Bmp) (08/04/17 11:21) Ondansetron Inj (Zofran Inj) (08/04/17 11:30) Promethazine Inj (Phenergan Inj) (08/04/17 11:30) Labs Laboratory Tests Test 08/04/17 11:25 White Blood Count 3.0 TH/MM3 Red Blood Count 2.73 MIL/MM3 Hemoglobin 9.9 GM/DL Hematocrit 29.3 % Mean Corpuscular Volume 107.4 FL Mean Corpuscular Hemoglobin 36.4 PG Mean Corpuscular Hemoglobin Concent 33.9 % Red Cell Distribution Width 16.4 % Platelet Count 135 TH/MM3 Mean Platelet Volume 9.2 FL CBC Comment AUTO DIFF Differential Total Cells Counted 100 Neutrophils % (Manual) 77 % Band Neutrophils % 1 % Lymphocytes % 9 % Neutrophils # (Manual) 2.4 TH/MM3 Myelocytes 1 % Nucleated Red Blood Cells 1 /100 WBC Differential Comment FINAL DIFF MANUAL Blastocytes 12 % Toxic Granulation 1+ Toxic Vacuolation PRESENT Platelet Estimate LOW Platelet Morphology Comment NORMAL Ovalocytes 1+ Blood Urea Nitrogen 7 MG/DL Creatinine 0.99 MG/DL Random Glucose 106 MG/DL Calcium Level 8.5 MG/DL Sodium Level 137 MEQ/L Potassium Level 3.5 MEQ/L Chloride Level 101 MEQ/L Carbon Dioxide Level 27.4 MEQ/L Anion Gap 9 MEQ/L Estimat Glomerular Filtration Rate 56 ML/MIN MDM Medical Decision Making Medical Screen Exam Complete: Yes Emergency Medical Condition: Yes Medical Record Reviewed: Yes Differential Diagnosis Neuropathy, anxiety, pancytopenia, electrolyte abnormality Narrative Course I have reviewed the patient's electronic medical record. Reviewed her oncologist note from just 4 days ago detailing her medical history and treatment plans IV placed I gave her IV Zofran and IM Phenergan CBC shows mild pancytopenia, improved from prior Metabolic profile is normal Patient has vague diffuse burning sensation. Possibly neuropathic pain. I will add some Neurontin to her current regimen. Diagnosis Primary Impression: Neuropathic pain Additional Impression: Pancytopenia due to chemotherapy Additional Instructions: The patient was advised to follow up with their physician and return if they worsen. Med/Other Pt SpecificInfo: Other Disposition: 01 DISCHARGE HOME Condition: Stable Jordin Soto MD Aug 04, 2017 11:25
[2017-08-04] MEDS ORDERED: PROMETHAZINE INJ 25 MG/ML VIAL IM ONE (11:30)
[2017-08-04] MEDS ORDERED: ONDANSETRON HCL 4 MG/2 ML VIAL IV ONE (11:30)
[2017-08-04 11:49] LABS: HEMATOCRIT 29.3 % (35.0-46.0); MEAN CELL VOLUME 107.4 FL (80.0-100.0); MEAN CORPUSCULAR HEMOGLOBIN 36.4 PG (27.0-34.0); MEAN CORPUSCULAR HGB CONC 33.9 % (32.0-36.0); PLATELET COUNT 135 TH/MM3 (150-450); RED BLOOD COUNT 2.73 MIL/MM3 (4.00-5.30); RED CELL DISTRIBUTION WIDTH 16.4 % (11.6-17.2)
[2017-08-04 11:52] LABS: HEMO FLAGS AUTO DIFF
[2017-08-04 12:13] LABS: BICARBONATE 27.4 MEQ/L (21.0-32.0); POTASSIUM 3.5 MEQ/L (3.5-5.1)
[2017-08-04 12:27] LABS: BANDS 1 % (0-6); CORRECTED NUCLEATED RBC 1 /100 WBC (0-0); MYELOCYTES 1 % (0-0)
[2017-08-04 12:28] LABS: BLASTS 12 % (0-0); NEUTROPHIL # MANUAL DIFF 2.4 TH/MM3 (1.8-7.7); POLYS (SEG NEUTROPHILS) 77 % (16-70); TOXIC VACUOLATION PRESENT (NONE SEEN); WBC DIFF SAMPLE 100
[2017-08-04 12:29] LABS: OVALOCYTES 1+ (NORMAL); PLATELET ESTIMATE SMEAR LOW (NORMAL); TOXIC GRANULATION 1+ (NORMAL)
[2017-08-04 12:30] LABS: PLATELET MORPHOLOGY NORMAL (NORMAL); SCAN/DIFF FINAL DIFF MANUAL
[2017-08-04] MEDS ORDERED: NEUR100C PO (13:41)
[2017-08-04 14:39] VITALS: BP 148/78
== END 2017-08-04 15:18 | disposition home or self-care (01) ==
LOC: NEPC 11:00
DX: C92.00 Acute myeloblastic leukemia, not having achieved remission (principal); D61.810 Antineoplastic chemotherapy induced pancytopenia; T45.1X5A Adverse effect of antineoplastic and immunosuppressive drugs, initial encounter; D46.9 Myelodysplastic syndrome, unspecified
CPT/HCPCS: 80048; 85007; 85027; 96372; 96374; 99285; J2405; J2550

== ENCOUNTER 2017-08-15 09:39 | Inpatient (IN) | payer MEDICARE, OTHER ==
[~2017-08-15] VITALS: Ht 162.6 cm; Wt 79.6 kg
[~2017-08-15 09:39] MED LIST changes: +NEUR100C PO
[2017-08-15 09:40] VITALS: BP 117/74; PULSE 114; RESP 18; TEMP 97.8; O2SAT 97
--- NOTE | 2017-08-15 10:04 | PD ---
HPI Chief Complaint: GI Complaint Time Seen by Provider: 10:03 Travel History International Travel<30 days: No Contact w/Intl Traveler<30days: No Traveled to known affect area: No History of Present Illness HPI 67-year-old female with history of AML that has been diagnosed 6 months ago came to the emergency room for external hemorrhoid that's painful. Patient says that she has been in the emergency room couple times before and has been asked to try suppositories and [id number] stuff but none of those are working. Patient called her oncologist today who is Dr. Nelson and he asked her to come to the emergency room to get this taken care of. Patient wants the hemorrhoids taken out. Patient was tachycardic in triage. She appears uncomfortable. [facility] Past Medical History Narrative Medical List of her past medical, surgical, social and family history is reviewed from the nursing note. 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) Cardiovascular Problems: Yes High Cholesterol: Yes Chemotherapy: Yes Chest Pain: No Congestive Heart Failure: No COPD: Yes Diminished Hearing: No Endocrine: Yes Headaches: Yes Hypertension: Yes Musculoskeletal: Yes (back) Neurologic: Yes (brain aneurysms, ANGIOMA) Psychiatric: Yes Myocardial Infarction: Yes (10/07) Thyroid Disease: Yes (Hypothyrodism) Menopausal: Yes : 2 Para: 2 Past Surgical History Abdominal Surgery: Yes Appendectomy: Yes Section: Yes Other Surgery: Yes (back, VARICOSE VEIN REMOVAL) Social History Alcohol Use: No Tobacco Use: No (quit 2012) Substance Use: No Allergies-Medications (Allergen,Severity, Reaction): Coded Allergies: penicillin G (Verified Allergy, Severe, 08/15/17) aspirin (Verified Allergy, Unknown, "MAKES MY STOMACH HURT A BIT", ) Comments List of her allergies reviewed from the nursing note. Reported Meds & Prescriptions Reported Meds & Active Scripts Active Neurontin (Gabapentin) 100 Mg Cap 100 Mg PO TID Reglan (Metoclopramide HCl) 10 Mg Tab 10 Mg PO TID Ranitidine (Ranitidine HCl) 150 Mg Tab 150 Mg PO BID Dronabinol 5 Mg Cap 5 Mg PO BID@,16 30 Days Reported Levothyroxine (Levothyroxine Sodium) 100 Mcg Tab 100 Mcg PO DAILY Narrative Medication List of her home medications reviewed from the nursing note. Review of Systems Except as stated in HPI: all other systems reviewed are Neg Genitourinary: Positive: Other (hemorrhoid) Physical Exam Narrative GENERAL: Awake, alert, moderate distress SKIN: Focused skin assessment warm/dry. Pale HEAD: Atraumatic. Normocephalic. EYES: Pupils equal and round. No scleral icterus. No injection or drainage. ENT: No nasal bleeding or discharge. Mucous membranes pink and moist. NECK: Trachea midline. No JVD. CARDIOVASCULAR: Regular rate and rhythm. No murmur appreciated. RESPIRATORY: No accessory muscle use. Clear to auscultation. Breath sounds equal bilaterally. GASTROINTESTINAL: Abdomen soft, non-tender, nondistended. Hepatic and splenic margins not palpable. Rectal exam shows 2 hemorrhoids at 6 and 7 o'clock position that are tender to touch and thrombosed MUSCULOSKELETAL: No obvious deformities. No clubbing. No cyanosis. No edema. NEUROLOGICAL: Awake and alert. No obvious cranial nerve deficits. Motor grossly within normal limits. Normal speech. PSYCHIATRIC: Appropriate mood and affect; insight and judgment normal. Data Data Last Documented VS Orders Orders Complete Blood Count With Diff (08/15/17 10:11) Prothrombin Time / Inr (Pt) (08/15/17 10:11) Type And Screen (08/15/17 10:11) Lidocai-Epi 1%-1:100,000 Inj (Xylocaine- (08/15/17 11:30) Lidocai-Epi 2%-1:100,000 Inj (Xylocaine- (08/15/17 12:00) Enema (08/15/17 13:05) Fleets Enema (Adult) (Fleets Enema (Adul (08/15/17 14:00) Admit Order (Ed Use Only) (08/15/17 14:49) Labs Laboratory Tests Test 08/15/17 10:45 White Blood Count 2.9 TH/MM3 Red Blood Count 2.68 MIL/MM3 Hemoglobin 9.6 GM/DL Hematocrit 29.1 % Mean Corpuscular Volume 108.4 FL Mean Corpuscular Hemoglobin 35.7 PG Mean Corpuscular Hemoglobin Concent 32.9 % Red Cell Distribution Width 16.4 % Platelet Count 141 TH/MM3 Mean Platelet Volume 8.4 FL Neutrophils (%) (Auto) 21.8 % Lymphocytes (%) (Auto) 23.6 % Monocytes (%) (Auto) 54.0 % Eosinophils (%) (Auto) 0.2 % Basophils (%) (Auto) 0.4 % Neutrophils # (Auto) 0.6 TH/MM3 Lymphocytes # (Auto) 0.7 TH/MM3 Monocytes # (Auto) 1.6 TH/MM3 Eosinophils # (Auto) 0.0 TH/MM3 Basophils # (Auto) 0.0 TH/MM3 CBC Comment AUTO DIFF Differential Total Cells Counted 100 Neutrophils % (Manual) 40 % Band Neutrophils % 5 % Lymphocytes % 27 % Monocytes % 14 % Neutrophils # (Manual) 1.3 TH/MM3 Metamyelocytes 1 % Differential Comment FINAL DIFF MANUAL Blastocytes 13 % Platelet Estimate LOW Platelet Morphology Comment NORMAL Prothrombin Time 11.4 SEC Prothromb Time International Ratio 1.1 RATIO MDM Medical Decision Making Medical Screen Exam Complete: Yes Emergency Medical Condition: Yes Medical Record Reviewed: Yes Differential Diagnosis Thrombosed hemorrhoids Narrative Course 10:55 AM awaiting for blood test results. Patient's last blood test from 2016 showed mild thrombocytopenia. If her blood test is within normal limit especially platelet count is within normal range and I can proceed with the thrombectomy 1:05 PM the blood test shows adequate platelet count, ANC of >600 and INR within normal limit. I was comfortable proceeding with the thrombectomy at this point. However during the exam I noticed that patient did not have significantly thrombosed hemorrhoids but instead had 2 large tears at 6:00 and 8 o'clock position. It did numb these. Please refer to my procedure note. At this point I have ordered a soapsuds enema since rectal exam showed a large ball of stool in the rectal vault. Patient says that she has not had a good bowel movement in 10 days. She's been trying to take suppositories and over-the -counter stool softener with not much relief. Once patient has a good bowel movement after the enema I'll be able to discharge her home. 2:48 PM Patient did not have good result from the soapsuds or Fleet Enema. At this point I decided to admit her. I discussed case with the residents was accepted her. Procedures Procedure Narrative Perianal tear with local anesthesia: 2% lidocaine with epi was infiltrated around the anal tear and hemorrhoids with a total quantity of 7 mL. Patient tolerated the procedure well. The hemorrhoids were palpated and it was felt that the thrombosed veins were not adequate enough to have a hemorrhoidectomy. EKG Prior to Arrival: No Diagnosis Primary Impression: Anal tear Additional Impressions: External hemorrhoid Constipation Qualified Codes: K59.00 - Constipation, unspecified Admitting Information Admitting Physician Requests: it Paola Parmar MD Aug 15, 2017 10:04
[2017-08-15 11:06] LABS: AUTOMATED NEUTROPHIL # 0.6 TH/MM3 (1.8-7.7); BASOPHIL % 0.4 % (0.0-2.0); EOSINOPHIL % 0.2 % (0.0-4.0); HEMATOCRIT 29.1 % (35.0-46.0); HEMOGLOBIN 9.6 GM/DL (11.6-15.3); LYMPH % 23.6 % (9.0-44.0); LYMPHOCYTE # 0.7 TH/MM3 (1.0-4.8); MEAN CELL VOLUME 108.4 FL (80.0-100.0); MEAN CORPUSCULAR HEMOGLOBIN 35.7 PG (27.0-34.0); MEAN CORPUSCULAR HGB CONC 32.9 % (32.0-36.0); MEAN PLATELET VOLUME 8.4 FL (7.0-11.0); MONOCYTE # 1.6 TH/MM3 (0-0.9); NEUT % 21.8 % (16.0-70.0); PLATELET COUNT 141 TH/MM3 (150-450); RED BLOOD COUNT 2.68 MIL/MM3 (4.00-5.30); RED CELL DISTRIBUTION WIDTH 16.4 % (11.6-17.2); WHITE BLOOD COUNT 2.9 TH/MM3 (4.0-11.0)
[2017-08-15 11:14] LABS: INTERNATIONAL NORMALIZED RATIO 1.1 RATIO; PROTHROMBIN TIME - PATIENT 11.4 SEC (9.8-11.6)
[2017-08-15] MEDS ORDERED: LIDOCAINE 1%/EPINEPHrine 1:100,000 SOLN 20 ML VIAL INFIL ONE (11:30)
[2017-08-15] MEDS ORDERED: LIDOCAINE 2%/EPINEPHrine 1:100,000 30ML MDV INFIL ONE (12:00)
[2017-08-15] MEDS ORDERED: LIDOCAINE 2%/EPINEPHrine 1:100,000 20ML MDV INFIL ONE (12:00)
[2017-08-15 12:26] LABS: BANDS 5 % (0-6); BLASTS 13 % (0-0); LYMPHOCYTES 27 % (9-44); METAMYELOCYTES 1 % (0-1); MONOCYTES 14 % (0-8); NEUTROPHIL # MANUAL DIFF 1.3 TH/MM3 (1.8-7.7); POLYS (SEG NEUTROPHILS) 40 % (16-70)
[2017-08-15] MEDS ORDERED: SOD PHOSPHATE/SOD BIPHOSPHATE (ADULT) ENEMA 133ML RECTAL ONE (14:00)
--- NOTE | 2017-08-15 15:01 | HHI.HP ---
HPI Service Family Medicine Primary Care Physician Unknown Admission Diagnosis anal tear, rectal pain, obstipation Diagnoses: International Travel<30 Days: No Contact w/Intl Traveler<30days: No Known Affected Area: No History of Present Illness Mrs. Richard is a 67 yo F with PMH of AML, atrial fibrillation, COPD, HTN who presents to [place] ED with complaint of pain with defecation and constipation per the advice of her Oncologist's office. Patient has had increased anal pain with defecation recently; she has also had only slight bowel movements (miniscule quantities of hard stool) for the past 10 days. Patient reports calling the office of her Oncologist, Dr. Yarbrough, and being told to seek evaluation. Patient has chronic constipation and hemorrhoids ; she generally has a bowel movement every other day. Patient also has hemorrhoids; she denies blood in stool. Patient takes over the counter medication to aid in bowel movements but is unsure of the name of this medication; she has been using this for 1 week without benefit. Patient has not had abdominal pain. Patient denies headaches, visual changes, weight loss, fever/chills, shortness of breath, chest pain, palpitations, urinary symptoms, or new extremity numbness /weakness (patient has had chronic L sided tingling). Patient has chronic shortness of breath with ambulation. Weight loss. No fevers. Shortness of breathing with walking for months. Patient reports having stopped or being told to stop her medications recently with exception of Dronabinol, Atorvastatin, unspecified bowel motility/stool softening agent, and unspecified pain control agent. Patient had planned to follow-up with Dr. Yarbrough tomorrow. Interval history: Patient seen in ED for planned thrombectomy of presumed thrombosed hemorrhoid; patient examined and found to have large anal fissures. Patient given soapsuds and Fleets enemas without bowel movement; decision to admit patient made. (Charlie Chau MD, R3) Review of Systems Constitutional: COMPLAINS OF: Weight loss (quantity unspecified), DENIES: Fever , Chills Eyes: DENIES: Eye pain, Vision loss Respiratory: COMPLAINS OF: Shortness of breath (chronic with fast ambulation), DENIES: Cough Cardiovascular: DENIES: Chest pain, Syncope Gastrointestinal: COMPLAINS OF: Constipation, DENIES: Abdominal pain, Bloody stools Genitourinary: DENIES: Urgency, Dysuria Musculoskeletal: DENIES: Stiffness, Joint Swelling Integumentary: DENIES: Abnormal pigmentation, Pruritus Hematologic/lymphatic: COMPLAINS OF: Bruising, DENIES: Lymphadenopathy Neurologic: DENIES: Abnormal gait, Headache (Charlie Chau MD, R3) Past Family Social History Past Medical History Per EMR/Patient Acute Myeloid Leukemia Anxiety Atrial Fibrillation- intermittent; not currently receiving anticoagulation Chronic Obstructive Pulmonary Disease -Uses PRN Albuterol High Cholesterol Hypertension Hypothyroidism Obesity Personal history of tobaccoism - quit 2011 Brain- vascular disease/ angioma? Past Surgical History CS x2 Appendix Varicose vein removal- L leg Bone marrow biopsy Reported Medications Reported Meds & Active Scripts Active Stopped- Neurontin (Gabapentin) 100 Mg Cap 100 Mg PO TID Reglan (Metoclopramide HCl) 10 Mg Tab 10 Mg PO TID Stopped- Ranitidine (Ranitidine HCl) 150 Mg Tab 150 Mg PO BID x Dronabinol 5 Mg Cap 5 Mg PO BID@11,16 30 Days Reported x Levothyroxine (Levothyroxine Sodium) 100 Mcg Tab 100 Mcg PO DAILY Unspecified pain medication -joint pain Atorvastatin 40mg daily No anticoagulants Sees Dr. Yarbrough (Oncology), Dr. Espinosa (PCP) (Charlie Chau MD, R3) Allergies: Coded Allergies: penicillin G (Verified Allergy, Severe, 08/15/17) aspirin (Verified Allergy, Unknown, 08/15/17) Family History Unspecified cardiac problems Unspecified HTN Social History Tobacco- 2011- quit smoking No alcohol No illicit drug use Patient lives with her daughter currently (Charlie Chau MD, R3) Physical Exam Vital Signs Vital Signs Date Time Temp Pulse Resp B/P (MAP) Pulse Ox O2 Delivery O2 Flow Rate FiO2 08/15/17 09:40 97.8 114 18 117/74 (88) 97 Physical Exam GENERAL: Patient appears uncomfortable; in no acute distress. SKIN: Warm and dry, no rashes appreciated. Bruising on stomach. EYES: No scleral icterus, injection, or drainage. HENT: Head: Normocephalic. NECK: No appreciated thyromegaly CARDIOVASCULAR: Regular rate and rhythm without murmurs. Normal peripheral perfusion in lower extremities. No LE edema RESPIRATORY: Normal respiratory rate. Lungs clear to auscultation bilaterally. GASTROINTESTINAL: Abdomen soft, nondistended, nontender. Bowel sounds normal. Anal: Brown stool in perianal area. No visible signs of bleeding. 2 moderate sized external hemorrhoids MUSCULOSKELETAL: No lower extremity swelling. No appreciated calf tenderness or asymmetry NEURO/PSYCH: Awake, alert, and oriented. Cranial nerves grossly normal. Grossly normal motor and sensory function. Laboratory Laboratory Tests Test 08/15/17 10:45 White Blood Count 2.9 Red Blood Count 2.68 Hemoglobin 9.6 Hematocrit 29.1 Mean Corpuscular Volume 108.4 Mean Corpuscular Hemoglobin 35.7 Mean Corpuscular Hemoglobin Concent 32.9 Red Cell Distribution Width 16.4 Platelet Count 141 Mean Platelet Volume 8.4 Neutrophils (%) (Auto) 21.8 Lymphocytes (%) (Auto) 23.6 Monocytes (%) (Auto) 54.0 Eosinophils (%) (Auto) 0.2 Basophils (%) (Auto) 0.4 Neutrophils # (Auto) 0.6 Lymphocytes # (Auto) 0.7 Monocytes # (Auto) 1.6 Eosinophils # (Auto) 0.0 Basophils # (Auto) 0.0 CBC Comment AUTO DIFF Differential Total Cells Counted 100 Neutrophils % (Manual) 40 Band Neutrophils % 5 Lymphocytes % 27 Monocytes % 14 Neutrophils # (Manual) 1.3 Metamyelocytes 1 Differential Comment FINAL DIFF MANUAL Blastocytes 13 Platelet Estimate LOW Platelet Morphology Comment NORMAL Prothrombin Time 11.4 Prothromb Time International Ratio 1.1 (Charlie Chau MD, R3) Result Diagram: 08/15/17 1045 Imaging Vital Signs, 24 Hour Date Time Temp Pulse Resp B/P (MAP) Pulse Ox O2 Delivery O2 Flow Rate FiO2 08/15/17 09:40 97.8 114 18 117/74 (88) 97 Allergies Coded Allergies penicillin G (Verified Allergy, Severe, 08/15/17) aspirin (Verified Allergy, Unknown, 08/15/17) Orders - Charlie Chau MD, R3 Procedure Category Date Status Time Place In Observation ADMITTING 08/15/17 Transmitted Vital Signs (Adult) SCOTTY 08/15/17 In Process 15:03 Activity Oob Ad Marilyn SCOTTY 08/15/17 In Process 15:03 Diet Heart Healthy DIET 08/15/17 Transmitted Dinner Sodium Chloride 0.9% MED 08/15/17 Logged Flush (Ns Flush) 15:15 Sodium Chloride 0.9% MED 08/15/17 Logged Flush (Ns Flush) 21:00 Acetaminophen MED 08/15/17 Logged (Tylenol) 15:15 Ondansetron Inj MED 08/15/17 Logged (Zofran Inj) 15:15 Comprehensive LAB 08/16/17 Verified Metabolic Panel 06:00 Case Management CONS 08/15/17 Transmitted Consult 15:03 Naloxone Inj (Narcan MED 08/15/17 Logged Inj) 15:15 Docusate Sodium-Senna MED 08/15/17 Logged (Ramya-Colace) 21:00 Magnesium Hydroxide MED 08/15/17 Logged Liq (Milk Of Magnesi 15:15 Sennosides (Senokot) MED 08/15/17 Logged 15:15 Bisacodyl Supp MED 08/15/17 Logged (Dulcolax Supp) 15:15 Lactulose Liq MED 08/15/17 Logged (Lactulose Liq) 15:15 Laboratory Tests per Pamela Test 08/15/17 10:45 Red Blood Count 2.68 MIL/MM3 White Blood Count 2.9 TH/MM3 Active Scripts Active Neurontin (Gabapentin) 100 Mg Cap 100 Mg PO TID Reglan (Metoclopramide HCl) 10 Mg Tab 10 Mg PO TID Ranitidine (Ranitidine HCl) 150 Mg Tab 150 Mg PO BID Dronabinol 5 Mg Cap 5 Mg PO BID@11,16 30 Days Reported Levothyroxine (Levothyroxine Sodium) 100 Mcg Tab 100 Mcg PO DAILY (Charlie Chau MD, R3) Caprini VTE Risk Assessment Caprini VTE Risk Assessment: Mod/High Risk (score >= 2) VTE Pharm Contraindication: cavernous hemangioma, ? bleeding risk. Ambulatory but high risk for VTE Caprini Risk Assessment Model Point Value = 1 Point Value = 2 Point Value = 3 Point Value = 5 Age 41-60 Minor surgery BMI > 25 kg/m2 Swollen legs Varicose veins or History of unexplained or recurrent spontaneous Oral contraceptives or hormone replacement Sepsis (< 1 month) Serious lung disease, including pneumonia (< 1 month) Abnormal pulmonary function Acute myocardial infarction Congestive heart failure (< 1 month) History of inflammatory bowel disease Medical patient at bed rest Age 61-74 Arthroscopic surgery Major open surgery (> 45 min) Laparoscopic surgery (> 45 min) Malignancy Confined to bed (> 72 hours) Immobilizing plaster cast Central venous access Age >= 75 History of VTE Family history of VTE Factor V Leiden Prothrombin [id number] Lupus anticoagulant Anticardiolipin antibodies Elevated serum homocysteine Heparin-induced thrombocytopenia Other congenital or acquired thrombophilia Stroke (< 1 month) Elective arthroplasty Hip, pelvis, or leg fracture Acute spinal cord injury (< 1 month) Prophylaxis Regimen Total Risk Factor Score Risk Level Prophylaxis Regimen 0-1 Low Early ambulation 2 Moderate Order ONE of the following: *Sequential Compression Device (SCD) *Heparin 5000 units SQ BID 3-4 Higher Order ONE of the following medications: *Heparin 5000 units SQ TID *Enoxaparin/Lovenox 40 mg SQ daily (WT < 150 kg, CrCl > 30 mL/min) *Enoxaparin/Lovenox 30 mg SQ daily (WT < 150 kg, CrCl > 10-29 mL/min) *Enoxaparin/Lovenox 30 mg SQ BID (WT < 150 kg, CrCl > 30 mL/min) AND/OR *Sequential Compression Device (SCD) 5 or more Highest Order ONE of the following medications: *Heparin 5000 units SQ TID (Preferred with Epidurals) *Enoxaparin/Lovenox 40 mg SQ daily (WT < 150 kg, CrCl > 30 mL/min) *Enoxaparin/Lovenox 30 mg SQ daily (WT < 150 kg, CrCl > 10-29 mL/min) *Enoxaparin/Lovenox 30 mg SQ BID (WT < 150 kg, CrCl > 30 mL/min) AND *Sequential Compression Device (SCD) (Charlie Chau MD, R3) Assessment and Plan Assessment and Plan Mrs. Richard is a 67 yo F with: Code Status Full code (will discuss further, patient ambivalent about code status at this time until her anal pain is controlled) (Charlie Chau MD, R3) Attending Attestation THIS CASE WAS DISCUSSED WITH THE RESIDENT PHYSICIANS. I HAVE REVIEWED THE RECORD AND AGREE WITH THE ABOVE NOTE AND PLAN OF CARE WAS DISCUSSED. I HAVE AUTHORIZED THE ORDER FOR ADMISSION TO AN IN-PATIENT STATUS. (Skyler Do MD) Problem List: (1) Anal pain ICD Codes: K62.89 - Other specified diseases of anus and rectum Status: Acute Plan: -Will start ProctoFoam HC TID/ after BM -Will start Ramya-Colace BID for stool softening -Will start Fiber supplementation -Will give Tylenol/[place] for oral pain control while in hospital Impression: Chronic constipation, hemorrhoids (external on exam) with anal pain with defecation. Recent worsening of pain and worsening constipation x10 days Exam under local anesthesia by Dr. Parmar with anal fissures in addition to external hemorrhoids. Patient has not had adequate BM after soap suds and fleets enemas in ED (2) AML (acute myeloid leukemia) ICD Codes: C92.00 - Acute myeloblastic leukemia, not having achieved remission Status: Acute Plan: Impression: Patient of Dr. Yarbrough; diagnosed 03/2017 and received Dacogen x3 cycles (unable to tolerate convention induction chemotherapy). Per last progress note (08/01/2017), plans for repeat blood work in preparation for additional Dacogen if recovered sufficiently WBC- 2.9 (ANC 1,160) -Will consult Dr. Yarbrough so that he can see as patient's appointment was scheduled for tomorrow -Will defer neutropenic precautions as ANC 1000 (3) HTN (hypertension) ICD Codes: I10 - Essential (primary) hypertension Plan: Impression: Normotensive during hospitalization; not on home medication -Will monitor vital signs during hospitalization (4) Atrial fibrillation ICD Codes: I48.91 - Unspecified atrial fibrillation Plan: Impression: Patient reports intermittent Afib but denies any anticoagulation or rate control. Per Dr. Yarbrough's last note, patient on Digoxin 125mcg daily. Tachycardic on initial VS; regular rhythm to auscultation -Will check EKG -Will monitor on telemetry -Will check Digoxin level (5) Hypothyroidism ICD Codes: E03.9 - Hypothyroidism, unspecified Plan: Impression: Patient taking Levothyroxine 112mcg daily per EMR; patient states she is no longer taking Levothyroxine -Will check TSH (6) COPD (chronic obstructive pulmonary disease) ICD Codes: J44.9 - Chronic obstructive pulmonary disease, unspecified Plan: Impression: No respiratory symptoms at this time. Recent COPD exacerbation in early 07/2017 treated with Levaquin and oral steroids x5 days. Patient rarely uses Albuterol PRN -Will give PRN Duonebs (7) DVT Prophylaxis Status: Acute Plan: Patient with AML, mild thrombocytopenia PLT 141 Khorana score 2 (Hgb <10, prechemo WBC >11k)- VTE risk ~2% -Will defer chemical prophylaxis since patient is ambulatory and unclear risk from hemangioma -Will give mechanical PPX (8) Fluids, Electrolytes, and Nutrition Status: Acute Plan: Fluids: well defer as patient with normal oral intake Electrolytes: Will check CMP Nutrition: Will give regular diet (Charlie Chau MD, R3) Physician Certification 2 Midnight Certification Type: Admission for Inpatient Services Order for Inpatient Services The services are ordered in accordance with Medicare regulations or non- Medicare payer requirements, as applicable. In the case of services not specified as inpatient-only, they are appropriately provided as inpatient services in accordance with the 2-midnight benchmark. Estimated LOS (days): 2 days is the estimated time the patient will need to remain in the hospital, assuming treatment plan goals are met and no additional complications. Post-Hospital Plan: Home (Charlie Chau MD, R3) Problem Qualifiers (1) HTN (hypertension): Qualified Codes: I10 - Essential (primary) hypertension (2) Atrial fibrillation: Qualified Codes: I48.91 - Unspecified atrial fibrillation (3) Hypothyroidism: Qualified Codes: E03.9 - Hypothyroidism, unspecified (4) COPD (chronic obstructive pulmonary disease): Qualified Codes: J44.9 - Chronic obstructive pulmonary disease, unspecified Charlie Chau MD, R3 Aug 15, 2017 15:00 Skyler Do MD Aug 16, 2017 11:09
[2017-08-15] MEDS ORDERED: MAGNESIUM HYDROXIDE SUSP 30 ML CUP PO PRN (15:15)
[2017-08-15] MEDS ORDERED: SODIUM CHLORIDE 0.9% FLUSH 10 ML FLUSH IV FLUSH PRN (15:15)
[2017-08-15] MEDS ORDERED: NALOXONE HCL 0.4 MG/ML AMP IV PUSH PRN (15:15)
[2017-08-15] MEDS ORDERED: SENNOSIDES 8.6 MG TAB PO PRN (15:15)
[2017-08-15] MEDS ORDERED: ACETAMINOPHEN 325 MG TAB PO PRN (15:15)
[2017-08-15] MEDS ORDERED: LACTULOSE SYRUP 20 GM/30 ML CUP PO PRN (15:15)
[2017-08-15] MEDS ORDERED: BISACODYL 10 MG SUPP RECTAL PRN (15:15)
[2017-08-15] MEDS ORDERED: RESP: ALBUTEROL 2.5 MG/IPRATROPIUM 0.5 MG NEB (PRN) NEB (16:15)
[2017-08-15 16:16] VITALS: BP 138/74; PULSE 94; RESP 18; O2SAT 96
[2017-08-15 17:30] VITALS: BP 120/56; PULSE 90; RESP 18; TEMP 98.3; O2SAT 93
[2017-08-15] MEDS ORDERED: ACETAMINOPHEN 500 MG CPLT PO PRN (17:45)
[2017-08-15 18:00] VITALS: TEMP 96
[2017-08-15] MEDS: HYDROCORTISONE/PRAMOXINE RECTAL FOAM 10 GM CAN RECTAL SCH (18:00)
[2017-08-15] MEDS ORDERED: HYDROCORTISONE/PRAMOXINE RECTAL FOAM 10 GM CAN RECTAL ONE (18:00)
[2017-08-15] MEDS: ACETAMINOPHEN/HYDROcodone 325 MG/5 MG TAB PO PRN (18:18)
[2017-08-15 20:00] VITALS: PULSE 78
[2017-08-15] MEDS: DOCUSATE SODIUM 50 MG/SENNA 8.6 MG TAB PO SCH (20:28)
[2017-08-15] MEDS: SODIUM CHLORIDE 0.9% FLUSH 10 ML FLUSH IV FLUSH SCH (20:29)
[2017-08-15] MEDS ORDERED: DOCUSATE SODIUM 50 MG/SENNA 8.6 MG TAB PO SCH (21:00)
[2017-08-15 21:07] VITALS: BP 95/50; PULSE 79; RESP 18; TEMP 98.7; O2SAT 95
[2017-08-15 21:07] LABS: DIGOXIN LESS THAN 0.1 NG/ML (0.8-2.0)
[2017-08-16] VITALS (11 sets, daily range): BP systolic 107–147; BP diastolic 56–70; PULSE 59–112; RESP 16–18; TEMP 97.3–98.5; O2SAT 91–98
[2017-08-16] MEDS: ACETAMINOPHEN/HYDROcodone 325 MG/5 MG TAB PO PRN ×4 (02:00→21:30)
[2017-08-16] MEDS: HYDROCORTISONE/PRAMOXINE RECTAL FOAM 10 GM CAN RECTAL SCH ×3 (02:01→17:36)
[2017-08-16] MEDS ORDERED: LEVOTHYROXINE SODIUM 100 MCG TAB PO SCH (06:00)
[2017-08-16] MEDS ORDERED: LEVOTHYROXINE SODIUM 125 MCG TAB PO SCH (06:00)
[2017-08-16 07:29] LABS: HEMOGLOBIN 7.9 GM/DL (11.6-15.3); MEAN CORPUSCULAR HGB CONC 34.5 % (32.0-36.0); MEAN PLATELET VOLUME 8.9 FL (7.0-11.0); PLATELET COUNT 118 TH/MM3 (150-450); RED BLOOD COUNT 2.15 MIL/MM3 (4.00-5.30); RED CELL DISTRIBUTION WIDTH 16.1 % (11.6-17.2); WHITE BLOOD COUNT 1.6 TH/MM3 (4.0-11.0)
[2017-08-16 07:51] LABS: ALBUMIN 2.3 GM/DL (3.4-5.0); ALKALINE PHOSPHATASE 88 U/L (45-117); ALT (GPT) 9 U/L (10-53); AST (GOT) 10 U/L (15-37); BICARBONATE 27.1 MEQ/L (21.0-32.0); BLOOD UREA NITROGEN 10 MG/DL (7-18); CALCIUM 7.9 MG/DL (8.5-10.1); CHLORIDE 99 MEQ/L (98-107); GLOMERULAR FILTRATION RATE 71 ML/MIN (>89); GLUCOSE,RANDOM 75 MG/DL (74-106); SODIUM (NA) 137 MEQ/L (136-145); TOTAL BILIRUBIN ADULT 0.8 MG/DL (0.2-1.0); TOTAL PROTEIN 5.5 GM/DL (6.4-8.2)
--- NOTE | 2017-08-16 08:24 | HHI.FPPN ---
Subjective Remarks FM Attending Note: Patient seen and examined. S: Chart and all resident physician notes reviewed. In summary this is a 67 year old female who was admitted with an admission diagnosis of Anal Tear, Rectal Pain, Obstipation. Mrs. Richard has a h/o AML for which she is undergoing treatment by heme/onc with Dacogen. She is noted to have medical comorbidities that limit aggressive induction therapy. The patient presented to the emergency room with rectal pain. She reports should been seen in the emergency room in the past was told she had hemorrhoids and just use over-the- counter medications. She reports that she did try the [id number] medications but noted pain associated with application apparently with a cream applicator. She came back to the emergency room and initially was thought to have thrombosed hemorrhoids but following assessment of her hematologic status with a CBC when the emergency room doctor evaluated her for an incision of thrombosed hemorrhoids it was found that the hemorrhoids were not the issue in that she had fissuring to locations 1 being the 6:00 the other being the 8 o' clock position. She was admitted to us for further treatment. She had received an enema in the emergency room and did have fairly good bowel movement (initial rectal exam in ER showed a fecal impaction). She has been started on a stool regimen for constipation and topical medication for the fisures.. Objective Vitals Vital Signs Date Time Temp Pulse Resp B/P (MAP) Pulse Ox O2 Delivery O2 Flow Rate FiO2 08/16/17 04:00 Room Air 08/16/17 04:00 112 08/16/17 03:39 98.2 110 18 107/61 (76) 91 08/16/17 00:05 98.4 81 18 120/68 (85) 96 08/16/17 00:00 Room Air 08/16/17 00:00 84 08/15/17 21:07 98.7 79 18 95/50 (65) 95 08/15/17 20:00 Room Air 08/15/17 20:00 78 08/15/17 17:30 98.3 90 18 120/56 (77) 93 08/15/17 16:46 08/15/17 16:16 94 18 138/74 (95) 96 Room Air 08/15/17 09:40 97.8 114 18 117/74 (88) 97 I/O 08/15/17 08/15/17 08/15/17 08/16/17 08/16/17 08/16/17 07:00 15:00 23:00 07:00 15:00 23:00 Intake Total 240 ml Balance 240 ml Intake Oral 240 ml # Voids 2 # Bowel Movements 0 0 Result Diagram: 08/16/17 0635 08/16/17 0635 Other Results Item Value Date Time Magnesium Level 2.0 MG/DL 08/16/17634 Total Bilirubin 0.8 MG/DL 08/16/17634 Aspartate Amino Transf (AST/SGOT) 10 U/L L 08/16/17634 Alanine Aminotransferase (ALT/SGPT) 9 U/L L 08/16/17634 Alkaline Phosphatase 88 U/L 08/16/17634 Thyroid Stimulating Hormone 3rd Gen 21.600 uIU/ML H 08/15/171954 Digoxin Level LESS THAN 0.1 NG/ML L 08/15/171954 Objective Remarks O. CONSTITUTIONAL/GEN: normally nourished, in NAD. EYES: conjunctiva normal, PERRLA, EOMI. LUNGS: clear A-P, respiratory effort is normal. CARDIOVASCULAR: RR without murmur or gallop. No significant edema. GI/ABD: soft without masses, without organomegaly. NEURO: No focal deficits. MUSC: back is normal in appearance. Extremities are normal in appearance. PSYCH/MENTAL STATUS: Alert and oriented x 3. A/P Assessment and Plan Mrs. Richard is a 67 yo F with: Problem List: (1) Anal pain ICD Codes: K62.89 - Other specified diseases of anus and rectum Status: Acute Plan: -Will start ProctoFoam HC TID/ after BM -Will start Ramya-Colace BID for stool softening -Will start Fiber supplementation -Will give Tylenol/[place] for oral pain control while in hospital Impression: Chronic constipation, hemorrhoids (external on exam) with anal pain with defecation. Recent worsening of pain and worsening constipation x10 days Exam under local anesthesia by Dr. Parmar with anal fissures in addition to external hemorrhoids. Patient has not had adequate BM after soap suds and fleets enemas in ED 08/16/17 Continue a bowel regimen to attempt to prevent constatipation/hard stools. Topical treatment of anal fissures. (2) AML (acute myeloid leukemia) ICD Codes: C92.00 - Acute myeloblastic leukemia, not having achieved remission Status: Acute Plan: Impression: Patient of Dr. Yarbrough; diagnosed 03/2017 and received Dacogen x3 cycles (unable to tolerate convention induction chemotherapy). Per last progress note (08/01/2017), plans for repeat blood work in preparation for additional Dacogen if recovered sufficiently WBC- 2.9 (ANC 1,160) -Will consult Dr. Yarbrough so that he can see as patient's appointment was scheduled for tomorrow -Will defer neutropenic precautions as ANC 1000 (3) HTN (hypertension) ICD Codes: I10 - Essential (primary) hypertension Plan: Impression: Normotensive during hospitalization; not on home medication -Will monitor vital signs during hospitalization (4) Atrial fibrillation ICD Codes: I48.91 - Unspecified atrial fibrillation Plan: Impression: Patient reports intermittent Afib but denies any anticoagulation or rate control. Per Dr. Yarbrough's last note, patient on Digoxin 125mcg daily. Tachycardic on initial VS; regular rhythm to auscultation -Will check EKG -Will monitor on telemetry -Will check Digoxin level (5) Hypothyroidism ICD Codes: E03.9 - Hypothyroidism, unspecified Plan: Impression: Patient taking Levothyroxine 112mcg daily per EMR; patient states she is no longer taking Levothyroxine -Will check TSH (6) COPD (chronic obstructive pulmonary disease) ICD Codes: J44.9 - Chronic obstructive pulmonary disease, unspecified Plan: Impression: No respiratory symptoms at this time. Recent COPD exacerbation in early 07/2017 treated with Levaquin and oral steroids x5 days. Patient rarely uses Albuterol PRN -Will give PRN Duonebs (7) DVT Prophylaxis Status: Acute Plan: Patient with AML, mild thrombocytopenia PLT 141 Khorana score 2 (Hgb <10, prechemo WBC >11k)- VTE risk ~2% -Will defer chemical prophylaxis since patient is ambulatory and unclear risk from hemangioma -Will give mechanical PPX (8) Fluids, Electrolytes, and Nutrition Status: Acute Plan: Fluids: well defer as patient with normal oral intake Electrolytes: Will check CMP Nutrition: Will give regular diet Problem Qualifiers (1) HTN (hypertension): Qualified Codes: I10 - Essential (primary) hypertension (2) Atrial fibrillation: Qualified Codes: I48.91 - Unspecified atrial fibrillation (3) Hypothyroidism: Qualified Codes: E03.9 - Hypothyroidism, unspecified (4) COPD (chronic obstructive pulmonary disease): Qualified Codes: J44.9 - Chronic obstructive pulmonary disease, unspecified Skyler Do MD Aug 16, 2017 08:24
[2017-08-16] MEDS ORDERED: POTASSIUM CHLORIDE 10 MEQ CONTROLLED RELEASE TAB PO ONE ×2 (08:30→10:30)
[2017-08-16 08:42] LABS: BANDS 1 % (0-6); BLASTS 23 % (0-0); LYMPHOCYTES 37 % (9-44); MONOCYTES 20 % (0-8); MYELOCYTES 1 % (0-0); NEUTROPHIL # MANUAL DIFF 0.3 TH/MM3 (1.8-7.7); POLYS (SEG NEUTROPHILS) 18 % (16-70)
[2017-08-16] MEDS: DOCUSATE SODIUM 50 MG/SENNA 8.6 MG TAB PO SCH ×2 (09:29→21:30)
[2017-08-16] MEDS: DRONABINOL 5 MG CAP PO SCH ×2 (11:19→18:23)
--- NOTE | 2017-08-16 15:23 | EKG ---
Date Performed: 08/15/2017 Time Performed: 19:36:22 PTAGE: 67 years EKG: Sinus rhythm WITH FIRST DEGREE AV BLOCK NONSPECIFIC T-WAVE ABNORMALITY ABNORMAL ECG PREVIOUS TRACING : 07/06/2017 07.03 Compared to prior tracing no significant change DOCTOR: Pedro Pablo Read Interpretating Date/Time 08/16/2017 15:22:35
[2017-08-16] MEDS ORDERED: BENZONATATE 100 MG CAP PO PRN (15:30)
[2017-08-16] MEDS ORDERED: WITCH HAZEL 50%/GLYCERIN 12.5% 40 PAD JAR TOPICAL PRN (15:30)
[2017-08-16] MEDS ORDERED: POTASSIUM CHLORIDE 25 MEQ EFFERVESCENT TAB PO ONE (16:30)
[2017-08-16] MEDS: SODIUM CHLORIDE 0.9% FLUSH 10 ML FLUSH IV FLUSH SCH ×2 (18:00→21:00)
[2017-08-16] MEDS: NS + KCL 20 MEQ INJ 1,000 ML IV SCH (18:51)
[2017-08-16 20:00] LABS: ALBUMIN 2.4 GM/DL (3.4-5.0); ALKALINE PHOSPHATASE 93 U/L (45-117); ALT (GPT) 9 U/L (10-53); AST (GOT) 11 U/L (15-37); BLOOD UREA NITROGEN 9 MG/DL (7-18); CALCIUM 7.9 MG/DL (8.5-10.1); CHLORIDE 100 MEQ/L (98-107); GLOMERULAR FILTRATION RATE 71 ML/MIN (>89); GLUCOSE,RANDOM 80 MG/DL (74-106); MAGNESIUM 1.8 MG/DL (1.5-2.5); SODIUM (NA) 137 MEQ/L (136-145); TOTAL BILIRUBIN ADULT 0.7 MG/DL (0.2-1.0)
[2017-08-16 20:26] LABS: HEMOGLOBIN 8.4 GM/DL (11.6-15.3); MEAN CELL VOLUME 107.2 FL (80.0-100.0); MEAN CORPUSCULAR HGB CONC 33.6 % (32.0-36.0); MEAN PLATELET VOLUME 7.7 FL (7.0-11.0); PLATELET COUNT 106 TH/MM3 (150-450); RED BLOOD COUNT 2.33 MIL/MM3 (4.00-5.30); RED CELL DISTRIBUTION WIDTH 16.1 % (11.6-17.2); WHITE BLOOD COUNT 1.9 TH/MM3 (4.0-11.0)
[2017-08-16] MEDS ORDERED: ACETAMINOPHEN/HYDROcodone 325 MG/5 MG TAB PO PRN (20:30)
[2017-08-16 21:18] LABS: BLASTS 26 % (0-0); CORRECTED NUCLEATED RBC 1 /100 WBC (0-0); LYMPHOCYTES 41 % (9-44); MONOCYTES 2 % (0-8); NEUTROPHIL # MANUAL DIFF 0.6 TH/MM3 (1.8-7.7); NUCLEATED RED BLOOD CELL 1 (0-0); POLYS (SEG NEUTROPHILS) 31 % (16-70)
[2017-08-16 21:19] LABS: TEARDROP RBCS 1+ (NORMAL)
[2017-08-16] MEDS: POTASSIUM CHLORIDE 25 MEQ EFFERVESCENT TAB NG SCH (21:29)
[2017-08-17] VITALS (11 sets, daily range): BP systolic 120–148; BP diastolic 62–76; PULSE 68–80; RESP 18–21; TEMP 97.8–98.6; O2SAT 93–98
[2017-08-17] MEDS: NS + KCL 20 MEQ INJ 1,000 ML IV SCH ×3 (02:42→18:15)
[2017-08-17] MEDS: HYDROCORTISONE/PRAMOXINE RECTAL FOAM 10 GM CAN RECTAL SCH ×3 (02:43→18:00)
[2017-08-17] MEDS ORDERED: POTASSIUM CHLORIDE 25 MEQ EFFERVESCENT TAB NG SCH (04:00)
[2017-08-17] MEDS: ACETAMINOPHEN/HYDROcodone 325 MG/5 MG TAB PO PRN (06:40)
[2017-08-17] MEDS: LEVOTHYROXINE SODIUM 112 MCG TAB PO SCH (06:40)
--- NOTE | 2017-08-17 08:04 | MB ---
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 RECENT TREATMENT The patient has been on systemic therapy with Dacogen. REASON FOR HOSPITALIZATION The patient reports severe constipation and hemorrhoids. HISTORY OF PRESENT ILLNESS Ms. Read is a 67-year-old female who was diagnosed with acute myeloid leukemia earlier this summer. Her AML arose from a background of myelodysplastic syndrome. She was treated with systemic therapy consisting of Dacogen. She was not a good candidate for conventional induction chemotherapy with 7+3, on account of her advanced COPD and atrial fibrillation as well as precarious cardiac status at the time of presentation. She did tolerate Dacogen reasonably well and was noted to have a significant decline in her peripheral circulating leukemic cells. Since then she has received two additional doses of Dacogen. The patient has had repeated hospitalizations for COPD exacerbations, dehydration and symptomatic anemia. She now comes in with constipation and pain at the site of her hemorrhoids. She tells me somebody called my office and she was instructed to come into the ER; however, I have no knowledge of this and I was not aware of her symptoms until after admission. At any rate the hospital team has admitted her and put her on a GI regimen to help manage her constipation symptoms. PAST MEDICAL HISTORY 1. Acute myeloid leukemia. 2. COPD. 3. Extensive history of tobaccoism. 4. Morbid obesity. 5. Atrial fibrillation. 6. Anxiety. 7. Hyperlipidemia. 8. Hypertension. 9. Hypothyroidism. PAST SURGICAL HISTORY 1. Appendectomy. 2. . 3. Varicose vein surgery on the left leg. 4. Bone marrow biopsy and aspiration. GYNECOLOGIC HISTORY 2, para 2. Postmenopausal. FAMILY HISTORY Aunt with lung cancer. No other oncologic diagnoses. SOCIAL HISTORY The patient presently lives with her daughter and her boyfriend. She is otherwise single. She has two adult children both whom live in the area. She is originally from [place]. She is an ongoing smoker. ALLERGIES PENICILLIN-G. MEDICATIONS Current inpatient medications: 1. Levothyroxine 112 mcg once daily. 2. Benzenoid 100 mg p.o. t.i.d. 3. Tucks pads. 4. Dronabinol 5 mg p.o. b.i.d. 5. Hydrocortisone rectal foam q.8h. 6. Colace. 7. Tylenol 500 mg p.o. b.i.d. 8. May tablets 5/325, one tablet every 6 hours as needed for pain. 9. DuoNeb every 6 hours as needed for shortness of breath. 10.Zofran 4 mg IV q.6h. 11.Magnesium hydroxide 30 mL p.o. q.12h. as needed for constipation. 12.Senokot 17.2 mg p.o. q.12h. as needed for constipation. 13.Lactulose 30 mL p.o. daily as needed for severe constipation. REVIEW OF SYSTEMS A 13-point review of systems was obtained and the following are the pertinent positives and negatives: CONSTITUTIONAL: The patient reports generalized fatigue, weakness, loss of appetite. She reports being essentially bed-bound. She denies fevers or chills. HEENT: Denies headaches, blurry vision, difficulty swallowing, soreness in the throat. RESPIRATORY: Reports difficulty breathing with minimal exertion. Denies cough. Denies pleuritic chest pain. CARDIOVASCULAR: Denies angina-like chest pain, PND, orthopnea or lower extremity edema. GI: Denies does report nausea but denies vomiting. She denies diarrhea. She reports constipation. She denies hematochezia or melena. She reports severe pain and tenderness from hemorrhoids. : No complaints. COMPOUNDING ASSISTANT: No focal sensory or motor deficits. PHYSICAL EXAMINATION VITAL SIGNS: Temperature 97.3 degrees Fahrenheit, heart rate 64 beats per minute, blood pressure 114/58, O2 sats 98% on room air. GENERAL APPEARANCE: Ms. Read is a middle-aged/elderly lady lying in bed. She appears chronically ill and pale. HEENT: Head atraumatic, normocephalic. Conjunctivae are pale. Sclerae are anicteric. EOMI. PERRLA. Oral exam no pharyngeal erythema. NECK: No palpable cervical or supraclavicular lymphadenopathy. PULMONARY: Good air movement bilaterally with prolonged expiratory phase. CARDIOVASCULAR: Regular rate and rhythm, S1, S2. No obvious murmurs, rubs or gallops. ABDOMEN: Protuberant, soft, nontender, nondistended. No palpable organ enlargement. EXTREMITIES: No pretibial edema or calf tenderness. NEUROLOGIC: No focal sensory or motor deficits. RECTAL: Examination of the rectal area/external anal canal is performed in the presence of a female nurse metal baler. In between the gluteal folds and perianal area is coated with stool. Initially using warm soaked towels the area is cleaned of the stool. The anal canal is visualized. She has two external hemorrhoids. They do not appear erythematic. There are no obvious fissures or tears noted. There is no inflammation noted. LABORATORY FINDINGS Blood work dated 08/16/2017: WBC count 1.6, hemoglobin 7.9 gm/dl, MCV 107, platelet count 118, absolute neutrophil count 0.3. Chemistries: Sodium 137, potassium 2.6, chloride 99, bicarb 27, creatinine 0.8, BUN 10, random glucose 75, calcium 7.9, AST 10, ALT 9, total bilirubin 0.8, magnesium 2, alkaline phosphatase 88, albumin 2.3. TSH is 21.6. ASSESSMENT Ms. Read is a 67-year-old female with a diagnosis of acute myeloid leukemia. The patient's AML arose from an underlying myelodysplastic syndrome. She has been on Dacogen. She has received 3 cycles and has had improvement in her circulating leukemic cells (blast cells). She remains pancytopenic. She has multiple additional medical co-morbid conditions including COPD, atrial fibrillation, chronic pain, anorexia and now constipation. She comes into the hospital because of severe constipation and what appears to be inflamed/irritated hemorrhoids. A clinical exam was done. Her hemorrhoids are externalized. They do not appear to be thrombosed. No obvious fissures are noted. No evidence of perirectal abscess was noted either. 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 She will be candidate for restaging bone marrow biopsy after her next cycle. Clinically from an overall standpoint she appears to be quite stable and doing well. She does not have COPD exacerbation at this time and is afebrile. Her major issue is that of constipation and she is on an aggressive bowel regimen at this time. I have advised her to continue with the regimen recommended by the primary team consisting of laxatives and promotility agents such as senna. I would avoid suppositories given her neutropenia. Suppositories in neutropenic patients do exponentially increase the risk of perirectal abscesses due to anal mucosal tears or rectal tears. I would try to expedite her discharge to help ovoid a prolonged hospitalization. Follow-up with me in the upcoming 1-2 weeks. MD DAYA Fernandes/WENDY /5:24 PM /7:24 AM
[2017-08-17] MEDS: SODIUM CHLORIDE 0.9% FLUSH 10 ML FLUSH IV FLUSH SCH ×2 (09:13→21:06)
[2017-08-17] MEDS: POTASSIUM CHLORIDE 25 MEQ EFFERVESCENT TAB NG SCH ×2 (09:13→21:06)
[2017-08-17] MEDS: DOCUSATE SODIUM 50 MG/SENNA 8.6 MG TAB PO SCH ×2 (09:13→21:06)
[2017-08-17] MEDS: KETOROLAC TROMETHAMINE 30 MG/ML (IVP) VIAL IV PUSH SCH ×4 (10:23→23:33)
[2017-08-17 11:06] LABS: HEMATOCRIT 24.5 % (35.0-46.0); HEMOGLOBIN 8.5 GM/DL (11.6-15.3); MEAN CORPUSCULAR HEMOGLOBIN 37.2 PG (27.0-34.0); MEAN CORPUSCULAR HGB CONC 34.8 % (32.0-36.0); MEAN PLATELET VOLUME 7.9 FL (7.0-11.0); PLATELET COUNT 102 TH/MM3 (150-450); RED BLOOD COUNT 2.29 MIL/MM3 (4.00-5.30); RED CELL DISTRIBUTION WIDTH 16.4 % (11.6-17.2); WHITE BLOOD COUNT 1.7 TH/MM3 (4.0-11.0)
[2017-08-17 11:31] LABS: BLOOD UREA NITROGEN 7 MG/DL (7-18); CHLORIDE 104 MEQ/L (98-107); CREATININE 0.66 MG/DL (0.50-1.00); GLOMERULAR FILTRATION RATE 89 ML/MIN (>89); GLUCOSE,RANDOM 74 MG/DL (74-106); SODIUM (NA) 138 MEQ/L (136-145)
[2017-08-17] MEDS ORDERED: KETOROLAC TROMETHAMINE 30 MG/ML (IVP) VIAL IV PUSH SCH (12:00)
[2017-08-17 12:17] LABS: BANDS 2 % (0-6); BLASTS 25 % (0-0); LYMPHOCYTES 26 % (9-44); METAMYELOCYTES 1 % (0-1); NEUTROPHIL # MANUAL DIFF 0.8 TH/MM3 (1.8-7.7); OVALOCYTES 1+ (NORMAL); POLYS (SEG NEUTROPHILS) 43 % (16-70)
[2017-08-17 12:18] LABS: TOXIC GRANULATION 1+ (NORMAL); TOXIC VACUOLATION PRESENT (NONE SEEN)
[2017-08-17] MEDS: DRONABINOL 5 MG CAP PO SCH ×2 (12:21→17:12)
[2017-08-17] MEDS: SILVER SULFADIAZINE/LIDOCAINE CREAM 60 GM JAR RECTAL SCH ×3 (13:00→21:05)
[2017-08-17 15:05] LABS: HEMOGLOBIN A1C 5.7 % (4.3-6.0)
--- NOTE | 2017-08-17 16:33 | HHI.FPPN ---
Subjective Remarks Patient seen and examined prior to 1000. In a lot of pain in her rectal area. Denies CP/SOB. BMs now much softer but she's afraid to push due to pain. (Nasir Garcia MD) Objective Vitals Vital Signs Date Time Temp Pulse Resp B/P (MAP) Pulse Ox O2 Delivery O2 Flow Rate FiO2 08/17/17 12:15 77 08/17/17 12:05 98.0 77 20 134/76 (95) 96 08/17/17 08:05 98.5 72 20 133/73 (93) 93 08/17/17 08:00 69 08/17/17 07:00 Room Air 08/17/17 04:00 71 08/17/17 03:45 97.8 74 18 124/73 (90) 93 08/17/17 00:20 97.9 73 18 120/73 (89) 94 08/17/17 00:00 68 08/16/17 21:00 98.5 72 18 126/68 (87) 93 08/16/17 20:00 70 08/16/17 19:30 Room Air I/O 08/16/17 08/16/17 08/16/17 08/17/17 08/17/17 08/17/17 07:00 15:00 23:00 07:00 15:00 23:00 Intake Total 240 ml 540 ml 3176 ml Output Total 250 ml Balance 240 ml 290 ml 3176 ml Intake Oral 240 ml 540 ml 720 ml IV Total 2456 ml Output Urine Total 250 ml # Voids 2 4 # Bowel Movements 0 1 2 (Nasir Garcia MD) Result Diagram: 08/17/17 0951 08/17/17 0951 Objective Remarks CONSTITUTIONAL/GEN: normally nourished, in NAD. EYES: conjunctiva normal, PERRLA, EOMI. LUNGS: clear A-P, respiratory effort is normal. CARDIOVASCULAR: NRRR with soft 2/6 DANA at LUSB. No significant edema. GI/ABD: soft without masses, without organomegaly. NEURO: No focal deficits. MUSC: back is normal in appearance. Extremities are normal in appearance. RECTAL: Exam performed with RN sales financial analyst. 1 cm exquisitely tender external hemorrhoids at 2 and 5 o'clock position. Anal fissures without bleeding at 9 and 6 o'clock. PSYCH/MENTAL STATUS: Alert and oriented x 3. (Nasir Garcia MD) A/P Assessment and Plan Mrs. Richard is a 67 yo F with: (Nasir Garcia MD) Attending Attestation Patient seen and examined. Case reviewed and discussed with the resident team. Agree with plan of care as discussed with me and documented in the resident note. (Skyler Do MD) Problem List: (1) Anal pain ICD Codes: K62.89 - Other specified diseases of anus and rectum Status: Acute Plan: Due to both external hemorrhoids and anal fissures -CRS consulted, appreciate recommendations -Case discussed with Dr. Wayne via phone - recommended Ritter's cream QID -CRS to examine and provide additional recs -Continue ProctoFoam HC TID/ after BM -Continue Ramya-Colace BID for stool softening -Continue Fiber supplementation -Continue Tylenol/[place] for oral pain control while in hospital -Scheduled Toradol 30 mg IV Q6H up to max of 5 days (2) AML (acute myeloid leukemia) ICD Codes: C92.00 - Acute myeloblastic leukemia, not having achieved remission Status: Acute Plan: Impression: Patient of Dr. Yarbrough; diagnosed 03/2017 and received Dacogen x3 cycles (unable to tolerate convention induction chemotherapy). Per last progress note (08/01/2017), plans for repeat blood work in preparation for additional Dacogen if recovered sufficiently Heme/Onc consulted (Dr. Yarbrough), recs appreciated -Avoid suppositories due to neutropenia -Trend CBC (3) HTN (hypertension) ICD Codes: I10 - Essential (primary) hypertension Status: Resolved Plan: Impression: Normotensive during hospitalization; not on home medication -Will monitor vital signs during hospitalization (4) Atrial fibrillation ICD Codes: I48.91 - Unspecified atrial fibrillation Plan: Impression: Patient reports intermittent Afib but denies any anticoagulation or rate control. Per Dr. Yarbrough's last note, patient on Digoxin 125mcg daily. Tachycardic on initial VS; regular rhythm to auscultation EKG with sinus rhythm and 1st degree AV block Digoxin level undetectable -Monitor on telemetry; if no events by 08/18, can discontinue (5) Hypothyroidism ICD Codes: E03.9 - Hypothyroidism, unspecified Plan: Impression: Patient taking Levothyroxine 112mcg daily per EMR; patient states she is no longer taking Levothyroxine -Will check TSH (6) COPD (chronic obstructive pulmonary disease) ICD Codes: J44.9 - Chronic obstructive pulmonary disease, unspecified Plan: No respiratory symptoms at this time. Recent COPD exacerbation in early 07/2017 treated with Levaquin and oral steroids x5 days. Patient rarely uses Albuterol PRN -Will give PRN Duonebs (7) DVT Prophylaxis Status: Acute Plan: Patient with AML, mild thrombocytopenia PLT 141 Khorana score 2 (Hgb <10, prechemo WBC >11k)- VTE risk ~2% -Will defer chemical prophylaxis since patient is ambulatory and unclear risk from hemangioma -Will give mechanical PPX (8) Fluids, Electrolytes, and Nutrition Status: Acute Plan: Fluids: NS + 20 mEq/L KCl at 125 cc/hr Electrolytes: Monitor and replete PRN (hypokalemia on admission now resolved) Nutrition: Diet regular (Nasir Garcia MD) Problem Qualifiers (1) HTN (hypertension): Qualified Codes: I10 - Essential (primary) hypertension (2) Atrial fibrillation: Qualified Codes: I48.91 - Unspecified atrial fibrillation (3) Hypothyroidism: Qualified Codes: E03.9 - Hypothyroidism, unspecified (4) COPD (chronic obstructive pulmonary disease): Qualified Codes: J44.9 - Chronic obstructive pulmonary disease, unspecified Nasir Garcia MD Aug 17, 2017 16:33 Skyler Do MD Aug 21, 2017 09:03
[2017-08-18] VITALS (8 sets, daily range): BP systolic 131–166; BP diastolic 65–83; PULSE 73–123; RESP 16–20; TEMP 97.9–98.7; O2SAT 94–98
[2017-08-18] MEDS: NS + KCL 20 MEQ INJ 1,000 ML IV SCH ×3 (01:54→18:06)
[2017-08-18] MEDS: HYDROCORTISONE/PRAMOXINE RECTAL FOAM 10 GM CAN RECTAL SCH ×3 (01:55→18:06)
[2017-08-18] MEDS: ONDANSETRON HCL 4 MG/2 ML VIAL IVP PRN ×3 (01:55→18:02)
[2017-08-18] MEDS: LEVOTHYROXINE SODIUM 112 MCG TAB PO SCH (06:00)
[2017-08-18] MEDS: KETOROLAC TROMETHAMINE 30 MG/ML (IVP) VIAL IV PUSH SCH ×3 (06:00→18:05)
[2017-08-18 08:34] LABS: AUTOMATED NEUTROPHIL # 0.3 TH/MM3 (1.8-7.7); BASOPHIL % 0.7 % (0.0-2.0); EOSINOPHIL % 0.7 % (0.0-4.0); HEMATOCRIT 23.7 % (35.0-46.0); HEMOGLOBIN 8.1 GM/DL (11.6-15.3); LYMPH % 29.4 % (9.0-44.0); LYMPHOCYTE # 0.5 TH/MM3 (1.0-4.8); MEAN CELL VOLUME 107.7 FL (80.0-100.0); MEAN CORPUSCULAR HGB CONC 34.4 % (32.0-36.0); MEAN PLATELET VOLUME 8.8 FL (7.0-11.0); MONO % 50.3 % (0.0-8.0); MONOCYTE # 0.9 TH/MM3 (0-0.9); NEUT % 18.9 % (16.0-70.0); PLATELET COUNT 107 TH/MM3 (150-450); WHITE BLOOD COUNT 1.7 TH/MM3 (4.0-11.0)
[2017-08-18 08:52] LABS: BICARBONATE 23.6 MEQ/L (21.0-32.0); CALCIUM 8.1 MG/DL (8.5-10.1); CREATININE 0.57 MG/DL (0.50-1.00)
[2017-08-18] MEDS: DOCUSATE SODIUM 50 MG/SENNA 8.6 MG TAB PO SCH ×2 (08:55→21:00)
[2017-08-18] MEDS: POTASSIUM CHLORIDE 25 MEQ EFFERVESCENT TAB NG SCH ×2 (08:55→21:00)
[2017-08-18] MEDS: SILVER SULFADIAZINE/LIDOCAINE CREAM 60 GM JAR RECTAL SCH ×4 (08:59→21:00)
[2017-08-18] MEDS: SODIUM CHLORIDE 0.9% FLUSH 10 ML FLUSH IV FLUSH SCH ×2 (09:00→21:00)
[2017-08-18 09:14] LABS: BLASTS 34 % (0-0); CORRECTED NUCLEATED RBC 1 /100 WBC (0-0); LYMPHOCYTES 34 % (9-44); NEUTROPHIL # MANUAL DIFF 0.5 TH/MM3 (1.8-7.7); NUCLEATED RED BLOOD CELL 1 (0-0); POLYS (SEG NEUTROPHILS) 28 % (16-70)
--- NOTE | 2017-08-18 10:18 | HHI.PR ---
Subjective Remarks C/R Surg afebrile, VSS c/o rectal pain - min stool Objective - Vital Signs Date Time Temp Pulse Resp B/P (MAP) Pulse Ox O2 Delivery O2 Flow Rate FiO2 08/18/17 08:14 98.3 79 20 138/65 (89) 97 08/17/17 20:00 Room Air Result Diagram: 08/18/17 0736 08/18/17 0736 Objective Remarks PE alert Abd - soft, non -tender Rectal - tags yeast distiller, no cellultitis A/P Assessment and Plan Imp: anal fissures - try sitz, additional stool softeners may need EUA, but will wait for WBC to rise Claudio Wayne MD Aug 18, 2017 10:18
[2017-08-18] MEDS ORDERED: MAGNESIUM CITRATE SOLN 300 ML BTL PO ONE (10:45)
[2017-08-18] MEDS: DRONABINOL 5 MG CAP PO SCH ×2 (11:13→18:01)
[2017-08-18] MEDS: POLYETHYLENE GLYCOL 17 GM PKG PO SCH (11:13)
--- NOTE | 2017-08-18 11:49 | HHI.FPPN ---
Subjective Remarks Saw and examined patient this morning. She states that she is still in a lot of pain per rectum. She is still having trouble stooling. She feels like she is pulling out hard pieces when she wipes. She repeatedly asked if this was the "end of the road" for her. She is afraid of not doing well healthwise, along with her cancer. No fevers or chills, no chest pain, no shortness of breath, no abdominal pain, she is feeling nauseous. (Jeanie Meesk MD R1) Objective Vitals Vital Signs Date Time Temp Pulse Resp B/P (MAP) Pulse Ox O2 Delivery O2 Flow Rate FiO2 08/18/17 08:14 98.3 79 20 138/65 (89) 97 08/18/17 04:00 97.9 81 18 157/74 (101) 98 08/18/17 00:00 75 08/18/17 00:00 98.1 80 16 138/65 (89) 94 08/18/17 00:00 73 08/17/17 20:00 98.0 80 18 131/62 (85) 95 08/17/17 20:00 71 08/17/17 20:00 Room Air 08/17/17 16:10 72 08/17/17 16:05 98.6 72 21 148/70 (96) 98 08/17/17 12:15 77 08/17/17 12:05 98.0 77 20 134/76 (95) 96 I/O 08/17/17 08/17/17 08/17/17 08/18/17 08/18/17 08/18/17 07:00 15:00 23:00 07:00 15:00 23:00 Intake Total 3176 ml 460 ml 1000 ml Output Total 400 ml 1200 ml Balance 3176 ml 60 ml -200 ml Intake Oral 720 ml 460 ml IV Total 2456 ml 1000 ml Output Urine Total 400 ml 1200 ml # Voids 4 # Bowel Movements 2 0 (Jeanie Meeks MD R1) Result Diagram: 08/18/17 0736 08/18/17 0736 Objective Remarks CONSTITUTIONAL/GEN: normally nourished, in NAD. EYES: conjunctiva normal, PERRLA, EOMI. LUNGS: clear A-P, respiratory effort is normal. CARDIOVASCULAR: NRRR with soft 2/6 DANA at LUSB. No significant edema. GI/ABD: soft without masses, Nontender, without organomegaly. NEURO: No focal deficits. MUSC: back is normal in appearance. Extremities are normal in appearance. PSYCH/MENTAL STATUS: Alert and oriented x 3. (Jeanie Meeks MD R1) A/P Assessment and Plan Mrs. Richard is a 67 yo F with: (Jeanie Meeks MD R1) Attending Attestation Patient seen and examined. Case reviewed and discussed with the resident team. Agree with plan of care as discussed with me and documented in the resident note. (Skyler Do MD) Problem List: (1) Anal pain ICD Codes: K62.89 - Other specified diseases of anus and rectum Status: Acute Plan: Due to both external hemorrhoids and anal fissures -CRS consulted, appreciate recommendations -Ritter's cream QID -Magnesium citrate 150ml po today -anal fissures - try sitz, additional stool softeners -may need EUA, but will wait for WBC to rise -Continue ProctoFoam HC TID/ after BM -Continue Ramya-Colace BID for stool softening -Added Miralax 17g po qD -Continue Fiber supplementation -Continue Tylenol/[place] for oral pain control while in hospital -Scheduled Toradol 30 mg IV Q6H up to max of 5 days (2) AML (acute myeloid leukemia) ICD Codes: C92.00 - Acute myeloblastic leukemia, not having achieved remission Status: Acute Plan: Impression: Patient of Dr. Yarbrough; diagnosed 03/2017 and received Dacogen x3 cycles (unable to tolerate convention induction chemotherapy). Per last progress note (08/01/2017), plans for repeat blood work in preparation for additional Dacogen if recovered sufficiently Heme/Onc consulted (Dr. Yarbrough), recs appreciated -Avoid suppositories due to neutropenia -Trend CBC (3) HTN (hypertension) ICD Codes: I10 - Essential (primary) hypertension Status: Resolved Plan: Impression: Normotensive during hospitalization; not on home medication -Will monitor vital signs during hospitalization (4) Atrial fibrillation ICD Codes: I48.91 - Unspecified atrial fibrillation Plan: Impression: Patient reports intermittent Afib but denies any anticoagulation or rate control. Per Dr. Yarbrough's last note, patient on Digoxin 125mcg daily. Tachycardic on initial VS; regular rhythm to auscultation EKG with sinus rhythm and 1st degree AV block Digoxin level undetectable -Monitor on telemetry; if no events by 08/18, can discontinue (5) Hypothyroidism ICD Codes: E03.9 - Hypothyroidism, unspecified Plan: Impression: Patient taking Levothyroxine 112mcg daily per EMR; patient states she is no longer taking Levothyroxine -Will check TSH (6) COPD (chronic obstructive pulmonary disease) ICD Codes: J44.9 - Chronic obstructive pulmonary disease, unspecified Plan: No respiratory symptoms at this time. Recent COPD exacerbation in early 07/2017 treated with Levaquin and oral steroids x5 days. Patient rarely uses Albuterol PRN -Will give PRN Duonebs (7) DVT Prophylaxis Status: Acute Plan: Patient with AML, mild thrombocytopenia PLT 141 Khorana score 2 (Hgb <10, prechemo WBC >11k)- VTE risk ~2% -Will defer chemical prophylaxis since patient is ambulatory and unclear risk from hemangioma -Will give mechanical PPX (8) Fluids, Electrolytes, and Nutrition Status: Acute Plan: Fluids: NS + 20 mEq/L KCl at 125 cc/hr Electrolytes: Monitor and replete PRN (hypokalemia on admission now resolved) Nutrition: Diet regular (Jeanie Meeks MD R1) Problem Qualifiers (1) HTN (hypertension): Qualified Codes: I10 - Essential (primary) hypertension (2) Atrial fibrillation: Qualified Codes: I48.91 - Unspecified atrial fibrillation (3) Hypothyroidism: Qualified Codes: E03.9 - Hypothyroidism, unspecified (4) COPD (chronic obstructive pulmonary disease): Qualified Codes: J44.9 - Chronic obstructive pulmonary disease, unspecified Jeanie Meeks MD R1 Aug 18, 2017 11:49 Skyler Do MD Aug 21, 2017 09:06
[2017-08-18] MEDS ORDERED: MAGNESIUM CITRATE SOLN 300 ML BTL PO PRN (12:00)
[2017-08-18] MEDS: ACETAMINOPHEN/HYDROcodone 325 MG/5 MG TAB PO PRN (12:18)
[2017-08-18 14:06] LABS: AUTOMATED NEUTROPHIL # 0.2 TH/MM3 (1.8-7.7); BASOPHIL # 0.1 TH/MM3 (0-0.2); BASOPHIL % 3.4 % (0.0-2.0); EOSINOPHIL % 0.4 % (0.0-4.0); HEMATOCRIT 23.6 % (35.0-46.0); LYMPHOCYTE # 0.4 TH/MM3 (1.0-4.8); MEAN CELL VOLUME 108.2 FL (80.0-100.0); MEAN CORPUSCULAR HEMOGLOBIN 36.7 PG (27.0-34.0); MEAN CORPUSCULAR HGB CONC 33.9 % (32.0-36.0); MEAN PLATELET VOLUME 8.8 FL (7.0-11.0); MONO % 58.9 % (0.0-8.0); NEUT % 13.3 % (16.0-70.0); PLATELET COUNT 102 TH/MM3 (150-450); RED BLOOD COUNT 2.18 MIL/MM3 (4.00-5.30); RED CELL DISTRIBUTION WIDTH 16.1 % (11.6-17.2); WHITE BLOOD COUNT 1.6 TH/MM3 (4.0-11.0)
[2017-08-18 14:28] LABS: ALBUMIN 2.3 GM/DL (3.4-5.0); ALT (GPT) 9 U/L (10-53); AST (GOT) 10 U/L (15-37); BICARBONATE 25.2 MEQ/L (21.0-32.0); BLOOD UREA NITROGEN 6 MG/DL (7-18); CALCIUM 7.7 MG/DL (8.5-10.1); CHLORIDE 106 MEQ/L (98-107); CREATININE 0.62 MG/DL (0.50-1.00); GLOMERULAR FILTRATION RATE 96 ML/MIN (>89); GLUCOSE,RANDOM 72 MG/DL (74-106); SODIUM (NA) 139 MEQ/L (136-145)
[2017-08-18 14:30] LABS: ALKALINE PHOSPHATASE 96 U/L (45-117); TOTAL BILIRUBIN ADULT 0.5 MG/DL (0.2-1.0); TOTAL PROTEIN 5.5 GM/DL (6.4-8.2)
[2017-08-18 14:36] LABS: BLASTS 42 % (0-0); LYMPHOCYTES 27 % (9-44); NEUTROPHIL # MANUAL DIFF 0.5 TH/MM3 (1.8-7.7); POLYS (SEG NEUTROPHILS) 31 % (16-70)
[2017-08-19] VITALS (9 sets, daily range): BP systolic 111–134; BP diastolic 68–76; PULSE 77–158; RESP 16–20; TEMP 97.9–98.3; O2SAT 92–97
[2017-08-19] MEDS: KETOROLAC TROMETHAMINE 30 MG/ML (IVP) VIAL IV PUSH SCH ×4 (00:01→16:57)
[2017-08-19] MEDS: ONDANSETRON HCL 4 MG/2 ML VIAL IVP PRN ×4 (00:01→16:55)
[2017-08-19] MEDS: HYDROCORTISONE/PRAMOXINE RECTAL FOAM 10 GM CAN RECTAL SCH ×3 (00:56→16:58)
[2017-08-19] MEDS: NS + KCL 20 MEQ INJ 1,000 ML IV SCH ×3 (02:15→16:58)
[2017-08-19] MEDS: LEVOTHYROXINE SODIUM 112 MCG TAB PO SCH (05:57)
[2017-08-19] MEDS ORDERED: CALCIUM GLUCONATE 500 MG TAB PO ONE (08:15)
[2017-08-19] MEDS: POTASSIUM CHLORIDE 25 MEQ EFFERVESCENT TAB NG SCH ×3 (09:00→21:10)
[2017-08-19] MEDS: DOCUSATE SODIUM 50 MG/SENNA 8.6 MG TAB PO SCH ×2 (09:15→21:00)
[2017-08-19] MEDS: POLYETHYLENE GLYCOL 17 GM PKG PO SCH (09:15)
[2017-08-19] MEDS: SODIUM CHLORIDE 0.9% FLUSH 10 ML FLUSH IV FLUSH SCH ×2 (09:15→21:11)
[2017-08-19] MEDS: SILVER SULFADIAZINE/LIDOCAINE CREAM 60 GM JAR RECTAL SCH ×4 (09:16→21:11)
--- NOTE | 2017-08-19 09:23 | HHI.PR ---
Subjective Remarks C/R Surg afebrile, VSS c/o rectal pain - stool softer Objective - Vital Signs Date Time Temp Pulse Resp B/P (MAP) Pulse Ox O2 Delivery O2 Flow Rate FiO2 08/19/17 04:00 98.1 83 16 120/72 (88) 94 08/18/17 20:00 Room Air Result Diagram: 08/18/17 1340 08/18/17 1340 Objective Remarks PE alert Abd - soft, non -tender Rectal - tags drier tender naphthalene, no BRB A/P Assessment and Plan Imp: anal fissures - try sitz, additional stool softeners may need EUA, but will wait for WBC to rise Claudio Wayne MD Aug 19, 2017 09:23
[2017-08-19] MEDS ORDERED: MAGNESIUM CITRATE SOLN 300 ML BTL PO ONE (10:00)
[2017-08-19 10:39] LABS: HEMATOCRIT 22.7 % (35.0-46.0); HEMOGLOBIN 7.7 GM/DL (11.6-15.3); MEAN CORPUSCULAR HEMOGLOBIN 36.8 PG (27.0-34.0); MEAN CORPUSCULAR HGB CONC 34.1 % (32.0-36.0); MEAN PLATELET VOLUME 9.2 FL (7.0-11.0); PLATELET COUNT 124 TH/MM3 (150-450); RED CELL DISTRIBUTION WIDTH 16.3 % (11.6-17.2); WHITE BLOOD COUNT 1.8 TH/MM3 (4.0-11.0)
[2017-08-19 11:48] LABS: BLASTS 33 % (0-0); LYMPHOCYTES 34 % (9-44); MONOCYTES 14 % (0-8); NEUTROPHIL # MANUAL DIFF 0.3 TH/MM3 (1.8-7.7); POLYS (SEG NEUTROPHILS) 19 % (16-70)
[2017-08-19 11:49] LABS: TEARDROP RBCS 1+ (NORMAL)
[2017-08-19] MEDS: DRONABINOL 5 MG CAP PO SCH ×2 (12:01→16:00)
--- NOTE | 2017-08-19 17:31 | HHI.FPPN ---
Subjective Remarks Seen and examined prior to 1200. No acute events overnight. Pain overall doing okay but worsens with BM (Nasir Garcia MD) Objective Vitals Vital Signs Date Time Temp Pulse Resp B/P (MAP) Pulse Ox O2 Delivery O2 Flow Rate FiO2 08/19/17 12:35 130 08/19/17 12:00 98.1 126 20 117/70 (86) 92 08/19/17 09:55 77 08/19/17 08:00 98.2 84 20 134/70 (91) 94 08/19/17 04:00 98.1 83 16 120/72 (88) 94 08/19/17 04:00 78 08/19/17 00:00 98.1 122 18 134/76 (95) 96 08/19/17 00:00 122 08/18/17 20:00 98.2 83 17 131/73 (92) 95 08/18/17 20:00 79 08/18/17 20:00 Room Air I/O 08/18/17 08/18/17 08/18/17 08/19/17 08/19/17 08/19/17 07:00 15:00 23:00 07:00 15:00 23:00 Intake Total 1000 ml 480 ml 1817 ml 1000 ml Output Total 1200 ml 280 ml 400 ml Balance -200 ml 200 ml 1417 ml 1000 ml Intake Oral 480 ml 360 ml IV Total 1000 ml 1457 ml 1000 ml Output Urine Total 1200 ml 280 ml 400 ml # Bowel Movements 0 1 (Nasir Garcia MD) Result Diagram: 08/19/17 1006 08/18/17 1340 Objective Remarks CONSTITUTIONAL/GEN: normally nourished, in NAD. LUNGS: clear A-P, respiratory effort is normal. CARDIOVASCULAR: NRRR with soft 2/6 DANA at LUSB. No significant edema. GI/ABD: soft without masses, Nontender, without organomegaly. NEURO: No focal deficits. MUSC: back is normal in appearance. Extremities are normal in appearance. PSYCH/MENTAL STATUS: Alert and oriented x 3. (Nasir Garcia MD) A/P Assessment and Plan Mrs. Richard is a 67 yo F with: (Nasir Garcia MD) Attending Attestation Patient seen and examined. Case reviewed and discussed with the resident team. Agree with plan of care as discussed with me and documented in the resident note. (Skyler Do MD) Problem List: (1) Anal pain ICD Codes: K62.89 - Other specified diseases of anus and rectum Status: Acute Plan: Due to both external hemorrhoids and anal fissures -CRS consulted, appreciate recommendations -Ritter's cream QID with BM -Magnesium citrate 150ml po today -anal fissures - try sitz, additional stool softeners -may need EUA, but will wait for WBC to rise -Continue ProctoFoam HC TID/ after BM -Continue Ramya-Colace BID for stool softening -Continue Miralax 17g po qD -Continue Fiber supplementation -Continue Tylenol/[place] for oral pain control while in hospital -Scheduled Toradol 30 mg IV Q6H up to max of 5 days (2) AML (acute myeloid leukemia) ICD Codes: C92.00 - Acute myeloblastic leukemia, not having achieved remission Status: Acute Plan: Impression: Patient of Dr. Yarbrough; diagnosed 03/2017 and received Dacogen x3 cycles (unable to tolerate convention induction chemotherapy). Per last progress note (08/01/2017), plans for repeat blood work in preparation for additional Dacogen if recovered sufficiently Heme/Onc consulted (Dr. Yarbrough), recs appreciated -Avoid suppositories due to neutropenia -Trend CBC -Recommend avoiding prolonged hospital stay if possible Discussed with patient risks of prolonged hospital course versus risk of pain at home. Patient understands risk of staying in hospital but really wants source of pain i.e. hemorrhoids/fissure to be stabilized better before discharge (which is of course appropriate). Patient informed that when she feels her pain is controlled with her topical and oral agents, she can go home and have outpatient follow up with CRS and oncology. (3) HTN (hypertension) ICD Codes: I10 - Essential (primary) hypertension Status: Resolved Plan: Impression: Normotensive during hospitalization; not on home medication -Will monitor vital signs during hospitalization (4) Atrial fibrillation ICD Codes: I48.91 - Unspecified atrial fibrillation Plan: Patient reports intermittent Afib but denies any anticoagulation or rate control. Per Dr. Yarbrough's last note, patient on Digoxin 125mcg daily but patient states she has not been taking Tachycardic throughout the day today Initial EKG with sinus rhythm and 1st degree AV block Digoxin level undetectable Telemetry review shows sinus tachycardia with rate 120s -Continue telemetry -Metoprolol ER 25 mg PO once, monitor HR (digoxin limited use if rhythm is sinus ; can consider restarting digoxin versus continued Toprol XL in morning) (5) Hypothyroidism ICD Codes: E03.9 - Hypothyroidism, unspecified Plan: Impression: Patient taking Levothyroxine 112mcg daily per EMR; patient states she is no longer taking Levothyroxine -Will check TSH (6) COPD (chronic obstructive pulmonary disease) ICD Codes: J44.9 - Chronic obstructive pulmonary disease, unspecified Plan: No respiratory symptoms at this time. Recent COPD exacerbation in early 07/2017 treated with Levaquin and oral steroids x5 days. Patient rarely uses Albuterol PRN -Will give PRN Duonebs (7) DVT Prophylaxis Status: Acute Plan: Patient with AML, mild thrombocytopenia PLT 141 Khorana score 2 (Hgb <10, prechemo WBC >11k)- VTE risk ~2% -Will defer chemical prophylaxis since patient is ambulatory and unclear risk from hemangioma -Will give mechanical PPX (8) Fluids, Electrolytes, and Nutrition Status: Acute Plan: Fluids: NS + 20 mEq/L KCl at 125 cc/hr Electrolytes: Monitor and replete PRN (hypokalemia on admission now resolved) Nutrition: Diet regular (Nasir Garcia MD) Problem Qualifiers (1) HTN (hypertension): Qualified Codes: I10 - Essential (primary) hypertension (2) Atrial fibrillation: Qualified Codes: I48.91 - Unspecified atrial fibrillation (3) Hypothyroidism: Qualified Codes: E03.9 - Hypothyroidism, unspecified (4) COPD (chronic obstructive pulmonary disease): Qualified Codes: J44.9 - Chronic obstructive pulmonary disease, unspecified Nasir Garcia MD Aug 19, 2017 17:31 Skyler Do MD Aug 21, 2017 09:08
[2017-08-19] MEDS ORDERED: METOPROLOL SUCCINATE 25 MG EXTENDED RELEASE TAB PO ONE ×2 (17:45→21:15)
[2017-08-19] MEDS ORDERED: DIGOXIN 0.125 MG TAB PO ONE (17:45)
[2017-08-19] MEDS: MIRTAZAPINE 15 MG TAB PO SCH (21:10)
[2017-08-20] VITALS (9 sets, daily range): BP systolic 109–145; BP diastolic 60–82; PULSE 68–128; RESP 16–20; TEMP 97.4–98.6; O2SAT 93–98
[2017-08-20] MEDS: KETOROLAC TROMETHAMINE 30 MG/ML (IVP) VIAL IV PUSH SCH ×4 (00:15→17:49)
[2017-08-20] MEDS: HYDROCORTISONE/PRAMOXINE RECTAL FOAM 10 GM CAN RECTAL SCH ×3 (00:16→17:49)
[2017-08-20] MEDS: NS + KCL 20 MEQ INJ 1,000 ML IV SCH ×3 (00:16→17:50)
[2017-08-20] MEDS: LEVOTHYROXINE SODIUM 112 MCG TAB PO SCH ×2 (04:56→05:04)
[2017-08-20] MEDS ORDERED: CALCIUM CARBONATE 1.25 GM (CA 500 MG) TAB PO ONE (08:00)
[2017-08-20] MEDS ORDERED: DIGOXIN 0.125 MG TAB PO SCH (09:00)
[2017-08-20] MEDS: SODIUM CHLORIDE 0.9% FLUSH 10 ML FLUSH IV FLUSH SCH ×2 (09:00→20:24)
[2017-08-20] MEDS: POLYETHYLENE GLYCOL 17 GM PKG PO SCH (09:10)
[2017-08-20] MEDS: DOCUSATE SODIUM 50 MG/SENNA 8.6 MG TAB PO SCH ×2 (09:10→20:23)
[2017-08-20] MEDS: POTASSIUM CHLORIDE 25 MEQ EFFERVESCENT TAB NG SCH ×2 (09:10→20:23)
[2017-08-20] MEDS: SILVER SULFADIAZINE/LIDOCAINE CREAM 60 GM JAR RECTAL SCH ×4 (09:11→20:23)
--- NOTE | 2017-08-20 09:35 | HHI.PR ---
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
[2017-08-20 11:19] LABS: HEMOGLOBIN 8.9 GM/DL (11.6-15.3); MEAN CELL VOLUME 108.1 FL (80.0-100.0); MEAN CORPUSCULAR HEMOGLOBIN 35.6 PG (27.0-34.0); MEAN CORPUSCULAR HGB CONC 32.9 % (32.0-36.0); MEAN PLATELET VOLUME 8.8 FL (7.0-11.0); PLATELET COUNT 113 TH/MM3 (150-450); RED CELL DISTRIBUTION WIDTH 16.9 % (11.6-17.2)
[2017-08-20 11:40] LABS: BICARBONATE 26.8 MEQ/L (21.0-32.0); CALCIUM 8.1 MG/DL (8.5-10.1); CREATININE 0.68 MG/DL (0.50-1.00)
[2017-08-20 12:04] LABS: BLASTS 45 % (0-0); CORRECTED NUCLEATED RBC 1 /100 WBC (0-0); LYMPHOCYTES 27 % (9-44); MONOCYTES 9 % (0-8); NEUTROPHIL # MANUAL DIFF 0.6 TH/MM3 (1.8-7.7); NUCLEATED RED BLOOD CELL 1 (0-0); POLYS (SEG NEUTROPHILS) 19 % (16-70)
[2017-08-20] MEDS: DRONABINOL 5 MG CAP PO SCH ×2 (12:04→15:57)
[2017-08-20 12:05] LABS: OVALOCYTES 1+ (NORMAL); TEARDROP RBCS 1+ (NORMAL)
[2017-08-20] MEDS: ONDANSETRON HCL 4 MG/2 ML VIAL IVP PRN (12:07)
[2017-08-20] MEDS ORDERED: METOPROLOL TARTRATE 25 MG TAB PO ONE (13:30)
--- NOTE | 2017-08-20 13:36 | HHI.FPPN ---
Subjective Remarks Mrs. Richard was afebrile with intermittent tachycardia overnight (HR 78- 128 bpm overnight). Patient has continued rectal pain; she otherwise is doing well without associated abdominal pain, abnormal urination, or shortness of breath. Patient reports Percocet more effective than [place] for her pain control. Patient also reports nausea which is relieved by Zofran. (Charlie Chau MD, R3) Objective Vitals Vital Signs Date Time Temp Pulse Resp B/P (MAP) Pulse Ox O2 Delivery O2 Flow Rate FiO2 08/20/17 09:30 Room Air 08/20/17 08:00 98.4 110 18 109/64 (79) 94 08/20/17 04:00 98.5 78 18 120/63 (82) 93 08/20/17 03:55 78 08/20/17 00:00 97.6 128 16 125/64 (84) 96 08/20/17 00:00 78 08/19/17 20:00 158 08/19/17 20:00 Room Air 08/19/17 20:00 97.9 130 16 122/69 (86) 95 08/19/17 18:07 114 08/19/17 16:00 98.3 127 20 111/68 (82) 97 I/O 08/19/17 08/19/17 08/19/17 08/20/17 08/20/17 08/20/17 07:00 15:00 23:00 07:00 15:00 23:00 Intake Total 1817 ml 1000 ml 1000 ml Output Total 400 ml 1500 ml Balance 1417 ml -500 ml 1000 ml Intake Oral 360 ml 0 ml IV Total 1457 ml 1000 ml 1000 ml Output Urine Total 400 ml 1500 ml # Voids 2 # Bowel Movements 1 0 5 (Charlie Chau MD, R3) Result Diagram: 08/20/17 1027 08/20/17 1027 Objective Remarks GENERAL: Patient appears uncomfortable; uncomfortable from rectal pain. SKIN: Warm and dry, no rashes appreciated. Bruising on stomach. EYES: No scleral icterus, injection, or drainage. CARDIOVASCULAR: Regular rate and rhythm without murmurs. Normal peripheral perfusion in lower extremities. No LE edema RESPIRATORY: Normal respiratory rate. Lungs clear to auscultation bilaterally. GASTROINTESTINAL: Abdomen soft, nondistended, nontender. Bowel sounds normal. MUSCULOSKELETAL: No lower extremity swelling. No appreciated calf tenderness or asymmetry NEURO/PSYCH: Awake, alert, and oriented. Cranial nerves grossly normal. Grossly normal motor and sensory function (Charlie Chau MD, R3) A/P Assessment and Plan Mrs. Richard is a 67 yo F with: (Charlie Chau MD, R3) Attending Attestation Patient seen and examined. Case reviewed and discussed with the resident team. Agree with plan of care as discussed with me and documented in the resident note. (Skyler Do MD) Problem List: (1) Anal pain ICD Codes: K62.89 - Other specified diseases of anus and rectum Status: Acute Plan: Due to both external hemorrhoids and anal fissures -CRS consulted, appreciate recommendations -Ritter's cream (silver sulfadiazine/lidocaine) QID with BM -anal fissures - try sitz, additional stool softeners -Consider EUA/Sphincterectomy -Continue ProctoFoam HC TID/ after BM -Continue Ramya-Colace BID for stool softening -Continue Miralax 17g po qD -Continue Fiber supplementation -Continue Tylenol/[place] for oral pain control while in hospital -Scheduled Toradol 30 mg IV Q6H up to max of 5 days (2) AML (acute myeloid leukemia) ICD Codes: C92.00 - Acute myeloblastic leukemia, not having achieved remission Status: Acute Plan: Impression: Patient of Dr. Yarbrough; diagnosed 03/2017 and received Dacogen x3 cycles (unable to tolerate convention induction chemotherapy). Per last progress note (08/01/2017), plans for repeat blood work in preparation for additional Dacogen if recovered sufficiently Heme/Onc consulted (Dr. Yarbrough), recs appreciated -Avoid suppositories due to neutropenia -Trend CBC -Recommend avoiding prolonged hospital stay if possible -Plan for additional Dacogen chemotherapy after discharge and subsequent bone marrow biopsy for restaging (3) Atrial fibrillation ICD Codes: I48.91 - Unspecified atrial fibrillation Plan: 08/19: Tachycardic to ~120's, telemetry with sinus tachycardia with rate ~120's. Responded to Metoprolol Succinate 25mg x1 08/20: Intermittent tachycardia to 110 BPM Impression: Patient reports intermittent Afib but denies any anticoagulation or rate control. Per Dr. Yarbrough's last note, patient on Digoxin 125mcg daily but patient states she has not been taking Initial EKG with sinus rhythm and 1st degree AV block Digoxin level undetectable Telemetry review shows sinus tachycardia with rate 120s -Continue telemetry -Additional Metoprolol 25mg given -If additional tachycardia, will plan to repeat EKG to determine rhythm and treat accordingly (consider restarting Digoxin vs continuing Metoprolol if Afib) (4) HTN (hypertension) ICD Codes: I10 - Essential (primary) hypertension Status: Resolved Plan: Impression: Normotensive during hospitalization; not on home medication -Will monitor vital signs during hospitalization (5) Hypothyroidism ICD Codes: E03.9 - Hypothyroidism, unspecified Plan: Impression: Patient taking Levothyroxine 100mcg daily at home TSH 21.6 during current hospitalization -Levothyroxine increased to 112mcg daily (6) COPD (chronic obstructive pulmonary disease) ICD Codes: J44.9 - Chronic obstructive pulmonary disease, unspecified Plan: No respiratory symptoms at this time. Recent COPD exacerbation in early 07/2017 treated with Levaquin and oral steroids x5 days. Patient rarely uses Albuterol PRN -Will give PRN Duonebs (7) DVT Prophylaxis Status: Acute Plan: Patient with AML, mild thrombocytopenia PLT 141 Khorana score 2 (Hgb <10, prechemo WBC >11k)- VTE risk ~2% -Will defer chemical prophylaxis since patient is ambulatory and unclear risk from hemangioma -Will give mechanical PPX (8) Fluids, Electrolytes, and Nutrition Status: Acute Plan: Fluids: NS + 20 mEq/L KCl at 125 cc/hr Electrolytes: Monitor and replete PRN (hypokalemia on admission now resolved) Nutrition: Diet regular (Charlie Chau MD, R3) Problem Qualifiers (1) Atrial fibrillation: Qualified Codes: I48.91 - Unspecified atrial fibrillation (2) HTN (hypertension): Qualified Codes: I10 - Essential (primary) hypertension (3) Hypothyroidism: Qualified Codes: E03.9 - Hypothyroidism, unspecified (4) COPD (chronic obstructive pulmonary disease): Qualified Codes: J44.9 - Chronic obstructive pulmonary disease, unspecified Charlie Chau MD, R3 Aug 20, 2017 13:36 Skyler Do MD Aug 21, 2017 09:13
[2017-08-20] MEDS: MIRTAZAPINE 15 MG TAB PO SCH (20:24)
[2017-08-20] MEDS: ACETAMINOPHEN/HYDROcodone 325 MG/5 MG TAB PO PRN (21:49)
[2017-08-21] VITALS (10 sets, daily range): BP systolic 99–144; BP diastolic 56–70; PULSE 59–113; RESP 16–20; TEMP 97.5–98.7; O2SAT 91–98
[2017-08-21] MEDS: NS + KCL 20 MEQ INJ 1,000 ML IV SCH ×2 (00:01→08:41)
[2017-08-21] MEDS: HYDROCORTISONE/PRAMOXINE RECTAL FOAM 10 GM CAN RECTAL SCH ×3 (00:01→17:27)
[2017-08-21] MEDS: KETOROLAC TROMETHAMINE 30 MG/ML (IVP) VIAL IV PUSH SCH ×4 (00:01→17:26)
[2017-08-21] MEDS: LEVOTHYROXINE SODIUM 112 MCG TAB PO SCH (06:33)
[2017-08-21 07:17] LABS: HEMATOCRIT 22.7 % (35.0-46.0); HEMOGLOBIN 7.6 GM/DL (11.6-15.3); MEAN CELL VOLUME 108.7 FL (80.0-100.0); MEAN CORPUSCULAR HEMOGLOBIN 36.6 PG (27.0-34.0); MEAN CORPUSCULAR HGB CONC 33.6 % (32.0-36.0); MEAN PLATELET VOLUME 8.6 FL (7.0-11.0); PLATELET COUNT 92 TH/MM3 (150-450); RED BLOOD COUNT 2.09 MIL/MM3 (4.00-5.30); RED CELL DISTRIBUTION WIDTH 16.5 % (11.6-17.2); WHITE BLOOD COUNT 2.7 TH/MM3 (4.0-11.0)
[2017-08-21] MEDS: SODIUM CHLORIDE 0.9% FLUSH 10 ML FLUSH IV FLUSH SCH ×2 (07:47→21:03)
[2017-08-21 07:56] LABS: BICARBONATE 24.4 MEQ/L (21.0-32.0); CALCIUM 7.8 MG/DL (8.5-10.1); CREATININE 0.64 MG/DL (0.50-1.00)
[2017-08-21 08:24] LABS: BANDS 3 % (0-6); BLASTS 53 % (0-0); LYMPHOCYTES 23 % (9-44); MONOCYTES 1 % (0-8); NEUTROPHIL # MANUAL DIFF 0.6 TH/MM3 (1.8-7.7); POLYS (SEG NEUTROPHILS) 19 % (16-70)
[2017-08-21 08:26] LABS: OVALOCYTES 1+ (NORMAL)
[2017-08-21] MEDS: POTASSIUM CHLORIDE 25 MEQ EFFERVESCENT TAB NG SCH ×2 (08:42→21:00)
[2017-08-21] MEDS: SILVER SULFADIAZINE/LIDOCAINE CREAM 60 GM JAR RECTAL SCH ×4 (08:42→21:00)
[2017-08-21] MEDS: DOCUSATE SODIUM 50 MG/SENNA 8.6 MG TAB PO SCH ×2 (08:42→21:00)
[2017-08-21] MEDS: POLYETHYLENE GLYCOL 17 GM PKG PO SCH (08:42)
--- NOTE | 2017-08-21 12:19 | HHI.FPPN ---
Subjective Remarks No acute events overnight. Feels anal pain still, has no appetite. Feels mild nausea with meals. No CP/SOB. Abdominal fullness but no pain per se. (Nasir Garcia MD) Objective Vitals Vital Signs Date Time Temp Pulse Resp B/P (MAP) Pulse Ox O2 Delivery O2 Flow Rate FiO2 08/21/17 08:00 97.8 71 16 117/58 (77) 94 08/21/17 04:50 97.5 72 16 115/58 (77) 91 08/21/17 04:00 67 08/21/17 01:01 20 08/21/17 00:24 98.6 72 16 140/70 (93) 97 08/21/17 00:24 Room Air 08/21/17 00:00 65 08/20/17 22:49 20 08/20/17 21:15 98.2 75 16 141/67 (91) 98 08/20/17 21:15 Room Air 08/20/17 20:00 68 08/20/17 18:42 73 08/20/17 16:00 98.6 84 18 119/60 (79) 96 I/O 08/20/17 08/20/17 08/20/17 08/21/17 08/21/17 08/21/17 07:00 15:00 23:00 07:00 15:00 23:00 Intake Total 1000 ml 240 ml 3420 ml Output Total 1350 ml 1950 ml Balance 1000 ml -1110 ml 1470 ml Intake Oral 240 ml 240 ml IV Total 1000 ml 3180 ml Output Urine Total 1350 ml 1950 ml # Voids 2 # Bowel Movements 5 0 (Nasir Garcia MD) Result Diagram: 08/21/1723 08/21/17 0623 Objective Remarks GENERAL: WDWN, comfortable, NAD SKIN: Warm and dry, no rashes appreciated. CARDIOVASCULAR: Regular rate and rhythm without murmurs. RESPIRATORY: Normal respiratory rate. Lungs clear to auscultation bilaterally. GASTROINTESTINAL: Soft, NDNT NEURO/PSYCH: Awake, alert, and oriented. Cranial nerves grossly normal. Grossly normal motor and sensory function Medications and IVs Current Medications Medications (Trade) Dose Ordered Sig/Tylor Route Start Time Stop Time Status Last Admin (NS Flush) 2 ml UNSCH PRN IV FLUSH 08/15/17 15:15 (NS Flush) 2 ml BID IV FLUSH 08/15/17 21:00 08/21/17 07:47 (Tylenol) 650 mg Q4H PRN PO 08/15/17 15:15 (Zofran Inj) 4 mg Q6H PRN IVP 08/15/17 15:15 08/20/17 12:07 (Narcan Inj) 0.4 mg UNSCH PRN IV PUSH 08/15/17 15:15 (Milk Of Magnesia Liq) 30 ml Q12H PRN PO 08/15/17 15:15 (Senokot) 17.2 mg Q12H PRN PO 08/15/17 15:15 (Lactulose Liq) 30 ml DAILY PRN PO 08/15/17 15:15 (Duoneb Neb) 1 ampule Q6HR NEB PRN NEB 08/15/17 16:15 (Proctofoam Hc Rectal Foam) 1 applic Q8H RECTAL 08/15/17 18:00 08/21/17 08:42 (Ramya-Colace) 2 tab BID PO 08/15/17 21:00 08/21/17 08:42 (Marinol) 5 mg BID@11,16 PO 08/16/17 11:00 08/21/17 13:10 (Tylenol) 500 mg Q6H PRN PO 08/15/17 17:45 (Synthroid) 112 mcg DAILY@0600 PO 08/17/17 06:00 08/21/17 06:33 (Tessalon) 100 mg TID PRN PO 08/16/17 15:30 Potassium Chloride/Sodium Chloride 1,000 ml @ 125 mls/hr Q8H IV 08/16/17 18:15 08/21/17 08:41 (K-Lyte Cl Eff) 25 meq Q12H NG 08/16/17 21:00 08/21/17 08:42 ([place] 5-325 Mg) 1 tab Q4H PRN PO 08/16/17 20:15 08/20/17 21:49 ([place] 5-325 Mg) 1 tab Q6H PRN PO 08/16/17 20:30 08/17/17 02:42 (Toradol Inj) 30 mg Q6HR IV PUSH 08/17/17 09:45 08/21/17 13:11 (Ritters Cream) 1 applic QID RECTAL 08/17/17 13:00 08/21/17 14:41 (Miralax) 17 gm DAILY PO 08/18/17 10:45 08/21/17 08:42 (Remeron) 15 mg HS PO 08/19/17 21:00 08/20/17 20:24 (Nasir Garcia MD) A/P Assessment and Plan Mrs. Richard is a 67 yo F with: (Nasir Garcia MD) Attending Attestation Patient seen and examined. Case reviewed and discussed with the resident team. Agree with plan of care as discussed with me and documented in the resident note. (Skyler Do MD) Problem List: (1) Anal pain ICD Codes: K62.89 - Other specified diseases of anus and rectum Status: Acute Plan: Due to both external hemorrhoids and anal fissures Patient states pain is same, but has needed no opiates for last 24 hours -CRS consulted, appreciate recommendations -Ritter's cream (silver sulfadiazine/lidocaine) QID with BM -anal fissures - try sitz, additional stool softeners -Considering EUA/Sphincterectomy, waiting for hopeful increase in WBC first -Continue ProctoFoam HC TID/ after BM -Continue Ramya-Colace BID for stool softening -Continue Miralax 17g po qD -Continue Fiber supplementation -Continue [place] Q4H for breakthrough pain -Scheduled Toradol 30 mg IV Q6H up to max of 5 days (2) AML (acute myeloid leukemia) ICD Codes: C92.00 - Acute myeloblastic leukemia, not having achieved remission Status: Acute Plan: Patient of Dr. Yarbrough; diagnosed 03/2017 and received Dacogen x3 cycles ( unable to tolerate convention induction chemotherapy). Per last progress note ( 08/01/2017), plans for repeat blood work in preparation for additional Dacogen if recovered sufficiently Heme/Onc consulted (Dr. Yarbrough), recs appreciated -Avoid suppositories due to neutropenia -Trend CBC -Recommend avoiding prolonged hospital stay if possible -Plan for additional Dacogen chemotherapy after discharge and subsequent bone marrow biopsy for restaging (3) Atrial fibrillation ICD Codes: I48.91 - Unspecified atrial fibrillation Plan: Rate controlled at present Received 50 mg Toprol XL on evening of 08/19; no chronotropic or inotropic agents since then Patient reports intermittent Afib but denies any anticoagulation or rate control. Per Dr. Yarbrough's last note, patient on Digoxin 125mcg daily but patient states she has not been taking Initial EKG with sinus rhythm and 1st degree AV block -Discontinue telemetry -If additional tachycardia, will plan to repeat EKG to determine rhythm and treat accordingly (consider restarting Digoxin vs starting scheduled Toprol XL) (4) Hypothyroidism ICD Codes: E03.9 - Hypothyroidism, unspecified Plan: Patient taking Levothyroxine 100mcg daily at home TSH 21.6 during current hospitalization -Levothyroxine increased to 112mcg daily (5) COPD (chronic obstructive pulmonary disease) ICD Codes: J44.9 - Chronic obstructive pulmonary disease, unspecified Plan: No respiratory symptoms at this time. Recent COPD exacerbation in early 07/2017 treated with Levaquin and oral steroids x5 days. Patient rarely uses Albuterol PRN -Will give PRN Duonebs (6) DVT Prophylaxis Status: Acute Plan: Patient with AML, mild thrombocytopenia PLT 141 Khorana score 2 (Hgb <10, prechemo WBC >11k)- VTE risk ~2% -Will defer chemical prophylaxis since patient is ambulatory and unclear risk from hemangioma -Will give mechanical PPX (7) Fluids, Electrolytes, and Nutrition Status: Acute Plan: Fluids: NS + 20 mEq/L KCl at 50 cc/hr Electrolytes: Monitor and replete PRN (hypokalemia on admission now resolved) Nutrition: Diet regular Appetite: Remeron 15 mg HS Code status: FULL CODE (Nasir Garcia MD) Problem Qualifiers (1) Atrial fibrillation: Qualified Codes: I48.91 - Unspecified atrial fibrillation (2) Hypothyroidism: Qualified Codes: E03.9 - Hypothyroidism, unspecified (3) COPD (chronic obstructive pulmonary disease): Qualified Codes: J44.9 - Chronic obstructive pulmonary disease, unspecified Nasir Gacria MD Aug 21, 2017 12:19 Skyler Do MD Aug 21, 2017 16:38
[2017-08-21] MEDS: DRONABINOL 5 MG CAP PO SCH ×2 (13:10→17:26)
--- NOTE | 2017-08-21 15:32 | HHI.PR ---
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
[2017-08-21] MEDS ORDERED: NS + KCL 20 MEQ INJ 1,000 ML IV SCH (18:15)
[2017-08-21] MEDS: ONDANSETRON HCL 4 MG/2 ML VIAL IVP SCH (21:03)
[2017-08-21] MEDS: MIRTAZAPINE 15 MG TAB PO SCH (21:07)
[2017-08-21] MEDS: ACETAMINOPHEN/HYDROcodone 325 MG/5 MG TAB PO PRN (21:11)
[2017-08-22] VITALS: BP 104/57; PULSE 107; RESP 16; TEMP 98.3; O2SAT 94
[2017-08-22] MEDS: HYDROCORTISONE/PRAMOXINE RECTAL FOAM 10 GM CAN RECTAL SCH ×3 (02:00→18:00)
[2017-08-22 04:00] VITALS: BP 117/58; PULSE 72; RESP 18; TEMP 98.2; O2SAT 94
[2017-08-22] MEDS: LEVOTHYROXINE SODIUM 112 MCG TAB PO SCH (05:12)
[2017-08-22] MEDS: ONDANSETRON HCL 4 MG/2 ML VIAL IVP SCH ×3 (05:12→21:44)
[2017-08-22] MEDS: ACETAMINOPHEN/HYDROcodone 325 MG/5 MG TAB PO PRN (05:13)
[2017-08-22] MEDS: KETOROLAC TROMETHAMINE 30 MG/ML (IVP) VIAL IV PUSH SCH ×2 (06:18)
[2017-08-22 08:00] VITALS: BP 133/67; PULSE 75; RESP 20; TEMP 98; O2SAT 96
[2017-08-22 08:53] LABS: HEMATOCRIT 23.6 % (35.0-46.0); HEMOGLOBIN 7.8 GM/DL (11.6-15.3); MEAN CELL VOLUME 108.5 FL (80.0-100.0); MEAN CORPUSCULAR HEMOGLOBIN 35.7 PG (27.0-34.0); MEAN CORPUSCULAR HGB CONC 32.9 % (32.0-36.0); MEAN PLATELET VOLUME 8.5 FL (7.0-11.0); PLATELET COUNT 83 TH/MM3 (150-450); RED BLOOD COUNT 2.17 MIL/MM3 (4.00-5.30); RED CELL DISTRIBUTION WIDTH 16.9 % (11.6-17.2); WHITE BLOOD COUNT 2.8 TH/MM3 (4.0-11.0)
[2017-08-22] MEDS: SODIUM CHLORIDE 0.9% FLUSH 10 ML FLUSH IV FLUSH SCH ×2 (09:00→21:44)
[2017-08-22] MEDS ORDERED: HYDR-3516 PO (09:24)
[2017-08-22] MEDS ORDERED: Silv Sulfadiazine-Lidocaine Cr RECTAL (09:32)
[2017-08-22] MEDS ORDERED: MIRTA15 PO (09:32)
[2017-08-22] MEDS ORDERED: PROCHCT RECTAL (09:32)
[2017-08-22] MEDS: DOCUSATE SODIUM 50 MG/SENNA 8.6 MG TAB PO SCH ×3 (10:00→21:00)
[2017-08-22] MEDS: POTASSIUM CHLORIDE 25 MEQ EFFERVESCENT TAB NG SCH ×3 (10:00→21:00)
[2017-08-22] MEDS: POLYETHYLENE GLYCOL 17 GM PKG PO SCH (10:04)
[2017-08-22] MEDS: SILVER SULFADIAZINE/LIDOCAINE CREAM 60 GM JAR RECTAL SCH ×4 (10:07→21:50)
[2017-08-22] MEDS: FAMOTIDINE 20 MG TAB PO SCH ×2 (10:09→21:00)
[2017-08-22] MEDS: DRONABINOL 5 MG CAP PO SCH ×2 (10:18→16:35)
--- NOTE | 2017-08-22 10:28 | HHI.FPPN ---
Subjective Remarks No acute events overnight. Pain overall the same, but slightly better. She feels uncomfortable with BM but states she has been straining on the toilet. Still poor appetite, though able to drink Ensure/Boost. (Nasir Garcia MD) Objective Vitals Vital Signs Date Time Temp Pulse Resp B/P (MAP) Pulse Ox O2 Delivery O2 Flow Rate FiO2 08/22/17 08:00 98.0 75 20 133/67 (89) 96 08/22/17 04:00 98.2 72 18 117/58 (77) 94 08/22/17 00:00 98.3 107 16 104/57 (73) 94 08/21/17 20:00 Room Air 08/21/17 20:00 98.7 113 19 119/64 (82) 98 08/21/17 16:00 97.7 75 18 99/56 (70) 95 08/21/17 12:12 59 08/21/17 12:00 97.6 80 20 144/66 (92) 95 I/O 08/21/17 08/21/17 08/21/17 08/22/17 08/22/17 08/22/17 07:00 15:00 23:00 07:00 15:00 23:00 Intake Total 3420 ml 120 ml 240 ml Output Total 1950 ml 1700 ml 1000 ml Balance 1470 ml -1580 ml -760 ml Intake Oral 240 ml 120 ml 240 ml IV Total 3180 ml Output Urine Total 1950 ml 1700 ml 1000 ml # Bowel Movements 0 0 (Nasir Garcia MD) Result Diagram: 08/22/17 0745 08/21/17 0623 Objective Remarks GENERAL: WDWN, comfortable, NAD SKIN: Warm and dry, no rashes appreciated. CARDIOVASCULAR: Regular rate and rhythm without murmurs. RESPIRATORY: Normal respiratory rate. Lungs clear to auscultation bilaterally. GASTROINTESTINAL: Soft, NDNT NEURO/PSYCH: Awake, alert. Grossly non-focal. Medications and IVs Current Medications Medications (Trade) Dose Ordered Sig/Tylor Route Start Time Stop Time Status Last Admin (NS Flush) 2 ml UNSCH PRN IV FLUSH 08/15/17 15:15 (NS Flush) 2 ml BID IV FLUSH 08/15/17 21:00 08/22/17 09:00 (Tylenol) 650 mg Q4H PRN PO 08/15/17 15:15 (Narcan Inj) 0.4 mg UNSCH PRN IV PUSH 08/15/17 15:15 (Milk Of Magnesia Liq) 30 ml Q12H PRN PO 08/15/17 15:15 (Senokot) 17.2 mg Q12H PRN PO 08/15/17 15:15 (Lactulose Liq) 30 ml DAILY PRN PO 08/15/17 15:15 (Duoneb Neb) 1 ampule Q6HR NEB PRN NEB 08/15/17 16:15 (Proctofoam Hc Rectal Foam) 1 applic Q8H RECTAL 08/15/17 18:00 08/22/17 10:08 (Ramya-Colace) 2 tab BID PO 08/15/17 21:00 08/21/17 08:42 (Marinol) 5 mg BID@11,16 PO 08/16/17 11:00 08/22/17 10:18 (Tylenol) 500 mg Q6H PRN PO 08/15/17 17:45 (Synthroid) 112 mcg DAILY@0600 PO 08/17/17 06:00 08/22/17 05:12 (Tessalon) 100 mg TID PRN PO 08/16/17 15:30 (K-Lyte Cl Eff) 25 meq Q12H NG 08/16/17 21:00 08/21/17 08:42 (Blue River 5-325 Mg) 1 tab Q4H PRN PO 08/16/17 20:15 08/22/17 05:13 (Ritters Cream) 1 applic QID RECTAL 08/17/17 13:00 08/22/17 10:07 (Miralax) 17 gm DAILY PO 08/18/17 10:45 08/22/17 10:04 (Remeron) 15 mg HS PO 08/19/17 21:00 08/21/17 21:07 (Zofran Inj) 4 mg Q8H IVP 08/21/17 20:00 08/22/17 05:12 (Motrin) 600 mg Q6HR PO 08/22/17 12:00 (Pepcid) 20 mg BID PO 08/22/17 09:30 (Nasir Garcia MD) A/P Assessment and Plan Mrs. Richard is a 67 yo F with: (Nasir Garcia MD) Attending Attestation Patient seen and examined. Case reviewed and discussed with the resident team. Agree with plan of care as discussed with me and documented in the resident note. (Skyler Do MD) Problem List: (1) Anal pain ICD Codes: K62.89 - Other specified diseases of anus and rectum Status: Acute Plan: Due to both external hemorrhoids and anal fissures Needing Blue River 5 mg 1-2 times per day -CRS consulted, appreciate recommendations -Cleared for discharge either today or tomorrow based on pain control; will follow up in office -Ritter's cream (silver sulfadiazine/lidocaine) QID PRN with BM -anal fissures - try sitz, additional stool softeners -Continue ProctoFoam HC TID/ after BM -Continue Ramya-Colace BID for stool softening -Continue Miralax 17g po qD -Continue Fiber supplementation -Continue Blue River Q6H for breakthrough pain -Switch Toradol to PO ibuprofen 600 mg Q6H in preparation for discharge tomorrow with pain meds determined by pain control over next 24 hours (2) AML (acute myeloid leukemia) ICD Codes: C92.00 - Acute myeloblastic leukemia, not having achieved remission Status: Acute Plan: Patient of Dr. Yarbrough; diagnosed 03/2017 and received Dacogen x3 cycles ( unable to tolerate convention induction chemotherapy). Per last progress note ( 08/01/2017), plans for repeat blood work in preparation for additional Dacogen if recovered sufficiently Heme/Onc consulted (Dr. Yarbrough), recs appreciated -Avoid suppositories due to neutropenia -Trend CBC -Recommend avoiding prolonged hospital stay if possible -Plan for additional Dacogen chemotherapy after discharge and subsequent bone marrow biopsy for restaging (3) Atrial fibrillation ICD Codes: I48.91 - Unspecified atrial fibrillation Plan: Patient reports intermittent Afib but denies any anticoagulation or rate control. Per Dr. Yarbrough's last note, patient on Digoxin 125mcg daily but patient states she has not been taking Initial EKG with sinus rhythm and 1st degree AV block Rate controlled at present, occasionally tachycardic but only up to ~110 Received 50 mg Toprol XL on evening of 08/19; no chronotropic or inotropic agents since then -If additional tachycardia, will plan to repeat EKG to determine rhythm and treat accordingly (consider restarting Digoxin vs starting scheduled Toprol XL) (4) Hypothyroidism ICD Codes: E03.9 - Hypothyroidism, unspecified Plan: Patient taking Levothyroxine 100mcg daily at home TSH 21.6 during current hospitalization -Levothyroxine increased to 112mcg daily (5) COPD (chronic obstructive pulmonary disease) ICD Codes: J44.9 - Chronic obstructive pulmonary disease, unspecified Plan: No respiratory symptoms at this time. Recent COPD exacerbation in early 07/2017 treated with Levaquin and oral steroids x5 days. Patient rarely uses Albuterol PRN -Will give PRN Duonebs (6) DVT Prophylaxis Status: Acute Plan: Patient with AML, mild thrombocytopenia PLT 141 Khorana score 2 (Hgb <10, prechemo WBC >11k)- VTE risk ~2% -Will defer chemical prophylaxis since patient is ambulatory and unclear risk from hemangioma -Will give mechanical PPX (7) Fluids, Electrolytes, and Nutrition Status: Acute Plan: Fluids: PO only Electrolytes: Monitor and replete PRN (hypokalemia on admission now resolved) Nutrition: Diet regular + Ensure/Boost Appetite: Remeron 15 mg HS GI: Pepcid 20 mg PO BID while on high-dose ibuprofen Code status: FULL CODE (Nasir Garcia MD) Problem Qualifiers (1) Atrial fibrillation: Qualified Codes: I48.91 - Unspecified atrial fibrillation (2) Hypothyroidism: Qualified Codes: E03.9 - Hypothyroidism, unspecified (3) COPD (chronic obstructive pulmonary disease): Qualified Codes: J44.9 - Chronic obstructive pulmonary disease, unspecified Nasir Garcia MD Aug 22, 2017 10:28 Skyler Do MD Aug 22, 2017 11:58
[2017-08-22 10:40] LABS: BLASTS 50 % (0-0); CORRECTED NUCLEATED RBC 1 /100 WBC (0-0); LYMPHOCYTES 33 % (9-44); MONOCYTES 1 % (0-8); NEUTROPHIL # MANUAL DIFF 0.4 TH/MM3 (1.8-7.7); NUCLEATED RED BLOOD CELL 1 (0-0); POLYS (SEG NEUTROPHILS) 15 % (16-70)
[2017-08-22 10:41] LABS: OVALOCYTES 1+ (NORMAL)
[2017-08-22 10:42] LABS: TEARDROP RBCS 1+ (NORMAL)
[2017-08-22] MEDS: IBUPROFEN 600 MG TAB PO SCH ×2 (12:00→18:00)
[2017-08-22 16:00] VITALS: BP 113/68; PULSE 74; RESP 18; TEMP 98.3; O2SAT 93
[2017-08-22 20:00] VITALS: BP 119/63; PULSE 78; RESP 18; TEMP 98.6; O2SAT 94
[2017-08-22] MEDS: MIRTAZAPINE 15 MG TAB PO SCH (21:45)
[2017-08-23] VITALS: BP 117/58; PULSE 75; RESP 16; TEMP 98.5; O2SAT 94
[2017-08-23] MEDS: HYDROCORTISONE/PRAMOXINE RECTAL FOAM 10 GM CAN RECTAL SCH ×2 (02:00→08:50)
[2017-08-23 04:00] VITALS: BP 119/64; PULSE 82; RESP 18; TEMP 98.4; O2SAT 96
[2017-08-23] MEDS: IBUPROFEN 600 MG TAB PO SCH ×3 (05:45→11:22)
[2017-08-23] MEDS: LEVOTHYROXINE SODIUM 112 MCG TAB PO SCH (05:45)
[2017-08-23] MEDS: ONDANSETRON HCL 4 MG/2 ML VIAL IVP SCH ×2 (05:45→11:20)
[2017-08-23] MEDS: POTASSIUM CHLORIDE 25 MEQ EFFERVESCENT TAB NG SCH (08:48)
[2017-08-23] MEDS: FAMOTIDINE 20 MG TAB PO SCH (08:49)
[2017-08-23] MEDS: POLYETHYLENE GLYCOL 17 GM PKG PO SCH (08:49)
[2017-08-23] MEDS: SODIUM CHLORIDE 0.9% FLUSH 10 ML FLUSH IV FLUSH SCH (08:49)
[2017-08-23] MEDS: DOCUSATE SODIUM 50 MG/SENNA 8.6 MG TAB PO SCH (08:50)
[2017-08-23] MEDS: SILVER SULFADIAZINE/LIDOCAINE CREAM 60 GM JAR RECTAL SCH ×2 (08:50→11:22)
[2017-08-23 09:04] LABS: HEMATOCRIT 24.7 % (35.0-46.0); HEMOGLOBIN 8.1 GM/DL (11.6-15.3); MEAN CELL VOLUME 107.2 FL (80.0-100.0); MEAN CORPUSCULAR HEMOGLOBIN 35.2 PG (27.0-34.0); MEAN CORPUSCULAR HGB CONC 32.9 % (32.0-36.0); MEAN PLATELET VOLUME 8.2 FL (7.0-11.0); PLATELET COUNT 88 TH/MM3 (150-450); RED BLOOD COUNT 2.31 MIL/MM3 (4.00-5.30); RED CELL DISTRIBUTION WIDTH 16.3 % (11.6-17.2); WHITE BLOOD COUNT 2.9 TH/MM3 (4.0-11.0)
--- NOTE | 2017-08-23 09:47 | HHI.DCPOC ---
Discharge Care Plan Diagnosis: (1) Constipation (2) AML (acute myeloid leukemia) (3) External hemorrhoid (4) Anal tear Goals to Promote Your Health * To prevent worsening of your condition and complications * To maintain your health at the optimal level Directions to Meet Your Goals Do not sit on toilet for extended periods of time. Do not force stool out during bowel movements. Follow up with Dr. Wayne in his office for further plan for external hemorrhoids. Take your medications as prescribed Follow your dietary instruction Follow activity as directed Keep your appointments as scheduled Take your immunizations and boosters as scheduled If your symptoms worsen call your PCP, if no PCP go to Urgent Care Center or Emergency Room Smoking is Dangerous to Your Health. Avoid second hand smoke Call the 24-hour hour crisis hotline for domestic abuse at Jeanie Meeks MD R1 Aug 23, 2017 9:46 am
[2017-08-23] MEDS ORDERED: SANC3.1D T-DERMAL (09:54)
[2017-08-23 11:01] LABS: BANDS 2 % (0-6); BLASTS 64 % (0-0); LYMPHOCYTES 19 % (9-44); MONOCYTES 2 % (0-8); POLYS (SEG NEUTROPHILS) 13 % (16-70)
[2017-08-23 11:02] LABS: NEUTROPHIL # MANUAL DIFF 0.4 TH/MM3 (1.8-7.7)
[2017-08-23 11:03] LABS: OVALOCYTES 1+ (NORMAL); TEARDROP RBCS 1+ (NORMAL)
[2017-08-23] MEDS: DRONABINOL 5 MG CAP PO SCH (11:20)
--- NOTE | 2017-08-23 17:00 | HHI.FPPN ---
Subjective Remarks Seen and examined prior to 1000. Doing well. Rectal pain persists but otherwise is okay. No BM for last couple days but has not eaten anything. Objective Vitals Vital Signs Date Time Temp Pulse Resp B/P (MAP) Pulse Ox O2 Delivery O2 Flow Rate FiO2 08/23/17 07:52 Room Air 08/23/17 04:00 98.4 82 18 119/64 (82) 96 08/23/17 00:00 98.5 75 16 117/58 (77) 94 08/22/17 20:00 98.6 78 18 119/63 (81) 94 08/22/17 19:00 Room Air I/O 08/22/17 08/22/17 08/22/17 08/23/17 08/23/17 08/23/17 07:00 15:00 23:00 07:00 15:00 23:00 Intake Total 240 ml 480 ml Output Total 1000 ml 800 ml Balance -760 ml -320 ml Intake Oral 240 ml 480 ml Output Urine Total 1000 ml 800 ml # Bowel Movements 0 Result Diagram: 08/23/17 0801 08/21/17 0623 Objective Remarks GENERAL: WDWN, comfortable, NAD SKIN: Warm and dry, no rashes appreciated. CARDIOVASCULAR: NRRR, no MRG RESPIRATORY: Normal respiratory rate. Lungs clear to auscultation bilaterally. GASTROINTESTINAL: Soft, NDNT NEURO/PSYCH: Awake, alert. Grossly non-focal. A/P Assessment and Plan Mrs. Richard is a 67 yo F with: Problem List: (1) Anal pain ICD Codes: K62.89 - Other specified diseases of anus and rectum Status: Acute Plan: Due to both external hemorrhoids and anal fissures -CRS consulted, appreciate recommendations -Cleared for discharge; will follow up in office -Ritter's cream (silver sulfadiazine/lidocaine) QID PRN with BM -anal fissures - try sitz, additional stool softeners -Discharge with ProctoFoam HC TID/ after BM -OTC stool softeners -Discharge with Faxon Q6H for breakthrough pain (2) AML (acute myeloid leukemia) ICD Codes: C92.00 - Acute myeloblastic leukemia, not having achieved remission Status: Acute Plan: Patient of Dr. Yarbrough; diagnosed 03/2017 and received Dacogen x3 cycles ( unable to tolerate convention induction chemotherapy). Per last progress note ( 08/01/2017), plans for repeat blood work in preparation for additional Dacogen if recovered sufficiently Heme/Onc consulted (Dr. Yarbrough), recs appreciated -Avoid suppositories due to neutropenia -Plan for additional Dacogen chemotherapy after discharge and subsequent bone marrow biopsy for restaging (3) Atrial fibrillation ICD Codes: I48.91 - Unspecified atrial fibrillation Plan: Patient reports intermittent Afib but denies any anticoagulation or rate control. Per Dr. Yarbrough's last note, patient on Digoxin 125mcg daily but patient states she has not been taking Initial EKG with sinus rhythm and 1st degree AV block Rate controlled at present, occasionally tachycardic but only up to ~110 Received 50 mg Toprol XL on evening of 08/19; no chronotropic or inotropic agents since then -No additional tachycardia noted; f/u with PCP (4) Hypothyroidism ICD Codes: E03.9 - Hypothyroidism, unspecified Plan: Patient taking Levothyroxine 100mcg daily at home TSH 21.6 during current hospitalization -Levothyroxine increased to 112mcg daily (5) COPD (chronic obstructive pulmonary disease) ICD Codes: J44.9 - Chronic obstructive pulmonary disease, unspecified Plan: No respiratory symptoms at this time. Recent COPD exacerbation in early 07/2017 treated with Levaquin and oral steroids x5 days. Patient rarely uses Albuterol PRN -F/u with PCP Problem Qualifiers (1) Atrial fibrillation: Qualified Codes: I48.91 - Unspecified atrial fibrillation (2) Hypothyroidism: Qualified Codes: E03.9 - Hypothyroidism, unspecified (3) COPD (chronic obstructive pulmonary disease): Qualified Codes: J44.9 - Chronic obstructive pulmonary disease, unspecified Nasir Garcia MD Aug 23, 2017 5:00 pm
--- NOTE | 2017-08-23 18:07 | HHI.DS ---
Discharge Summary Admission Date Aug 15, 2017 at 6:16 pm Discharge Date: Aug 23, 2017 Admitting Diagnosis anal tear, rectal pain, obstipation (1) Anal pain Diagnosis: Principal ICD Codes: K62.89 - Other specified diseases of anus and rectum Status: Acute (2) AML (acute myeloid leukemia) Diagnosis: Secondary ICD Codes: C92.00 - Acute myeloblastic leukemia, not having achieved remission Status: Acute (3) Atrial fibrillation Diagnosis: Secondary ICD Codes: I48.91 - Unspecified atrial fibrillation (4) Hypothyroidism ICD Codes: E03.9 - Hypothyroidism, unspecified (5) COPD (chronic obstructive pulmonary disease) ICD Codes: J44.9 - Chronic obstructive pulmonary disease, unspecified Consultants CRS - Dr. Wayne Onc - Dr. Yarbrough Brief History Mrs. Richard is a 67 yo F with PMH of AML, atrial fibrillation, COPD, HTN who presents to [facility] ED with complaint of pain with defecation and constipation per the advice of her Oncologist's office. Patient has had increased anal pain with defecation recently; she has also had only slight bowel movements (miniscule quantities of hard stool) for the past 10 days. Patient reports calling the office of her Oncologist, Dr. Yarbrough, and being told to seek evaluation. Patient has chronic constipation and hemorrhoids ; she generally has a bowel movement every other day. Patient also has hemorrhoids; she denies blood in stool. Patient takes over the counter medication to aid in bowel movements but is unsure of the name of this medication; she has been using this for 1 week without benefit. Patient has not had abdominal pain. Patient denies headaches, visual changes, weight loss, fever/chills, shortness of breath, chest pain, palpitations, urinary symptoms, or new extremity numbness /weakness (patient has had chronic L sided tingling). Patient has chronic shortness of breath with ambulation. Weight loss. No fevers. Shortness of breathing with walking for months. Patient reports having stopped or being told to stop her medications recently with exception of Dronabinol, Atorvastatin, unspecified bowel motility/stool softening agent, and unspecified pain control agent. Patient had planned to follow-up with Dr. Yarbrough tomorrow. Interval history: Patient seen in ED for planned thrombectomy of presumed thrombosed hemorrhoid; patient examined and found to have large anal fissures. Patient given soapsuds and Fleets enemas without bowel movement; decision to admit patient made. CBC/BMP: 08/23/17 0801 08/21/17 0623 Significant Findings Laboratory Tests Test 08/21/17 06:23 08/22/17 07:45 08/23/17 08:01 White Blood Count 2.7 TH/MM3 (4.0-11.0) 2.8 TH/MM3 (4.0-11.0) 2.9 TH/MM3 (4.0-11.0) Red Blood Count 2.09 MIL/MM3 (4.00-5.30) 2.17 MIL/MM3 (4.00-5.30) 2.31 MIL/MM3 (4.00-5.30) Hemoglobin 7.6 GM/DL (11.6-15.3) 7.8 GM/DL (11.6-15.3) 8.1 GM/DL (11.6-15.3) Hematocrit 22.7 % (35.0-46.0) 23.6 % (35.0-46.0) 24.7 % (35.0-46.0) Mean Corpuscular Volume 108.7 FL (80.0-100.0) 108.5 FL (80.0-100.0) 107.2 FL (80.0-100.0) Mean Corpuscular Hemoglobin 36.6 PG (27.0-34.0) 35.7 PG (27.0-34.0) 35.2 PG (27.0-34.0) Platelet Count 92 TH/MM3 (150-450) 83 TH/MM3 (150-450) 88 TH/MM3 (150-450) Neutrophils # (Manual) 0.6 TH/MM3 (1.8-7.7) 0.4 TH/MM3 (1.8-7.7) 0.4 TH/MM3 (1.8-7.7) Blastocytes 53 % (0-0) 50 % (0-0) 64 % (0-0) Platelet Estimate LOW (NORMAL) LOW (NORMAL) LOW (NORMAL) Ovalocytes 1+ (NORMAL) 1+ (NORMAL) 1+ (NORMAL) Blood Urea Nitrogen 5 MG/DL (7-18) Random Glucose 60 MG/DL (74-106) Calcium Level 7.8 MG/DL (8.5-10.1) Neutrophils % (Manual) 15 % (16-70) 13 % (16-70) Nucleated Red Blood Cells 1 /100 WBC (0-0) Tear Drop Cells 1+ (NORMAL) 1+ (NORMAL) PE at Discharge GENERAL: WDWN, comfortable, NAD SKIN: Warm and dry, no rashes appreciated. CARDIOVASCULAR: NRRR, no MRG RESPIRATORY: Normal respiratory rate. Lungs clear to auscultation bilaterally. GASTROINTESTINAL: Soft, NDNT NEURO/PSYCH: Awake, alert. Grossly non-focal. Hospital Course 67 yo female with AML admitted for anal pain secondary to anal fissures and hemorrhoids. Initially with constipation which improved with enema and stool softeners. CRS was consulted who recommended conservative treatment with Ritter' s cream, Proctofoam. Dr. Wayne will follow up with her in the office and likely perform exam under anesthesia or hemorrhoidectomy once WBC count improves. Oncology was consulted and recommended avoiding suppositories given neutropenia; will f/u in office for further management of AML. Her pain improved somewhat and she was medically cleared for discharge with prescriptions as noted below for her anal pain. She was also advised to use scheduled OTC stool softeners to promote soft BMs. Pt Condition on Discharge: Stable Discharge Disposition: Discharge Home Discharge Instructions DIET: Follow Instructions for: Heart Healthy Diet Activities you can perform: Regular-No Restrictions Follow up Referrals: Appointment for Follow Up - 1 Week with Claudio Wayne MD Oncology - 1 Week PCP Follow-up - 1 Week New Medications: Granisetron Patch 24 HR (Sancuso Patch 24 HR) 3.1 Mg/24 Hr Patch 1 PATCH T-DERMAL DAILY for 7 Days, #7 PATCH Hydrocodone/Acetaminophen (Hydrocodone-Acetamin 5-325 mg) 5 Mg-325 Mg Tablet 1 TAB PO Q6H PRN for BREAKTHROUGH PAIN, #20 Hydrocortisone-Pramoxine Rectal (Proctofoam Hc Rectal) 1-1% Foam 1 APPLIC RECTAL Q8H, #1 INHALER Mirtazapine (Mirtazapine) 15 Mg Tab 15 MG PO HS, #30 TAB [Silv Sulfadiazine-Lidocaine Cr] () 60 APPLIC/60 GM CR 1 APPLIC RECTAL QID PRN for RECTAL PAIN, #60 GM 1 Refill Apply 3-4 times a day as needed; works best if timed with bowel movements Continued Medications: Dronabinol (Dronabinol) 5 Mg Cap 5 MG PO BID@11,16 for boost appetite for 30 Days, #60 CAP 0 Refills Gabapentin (Neurontin) 100 Mg Cap 100 MG PO TID, #60 CAP 0 Refills Levothyroxine (Levothyroxine) 100 Mcg Tab 100 MCG PO DAILY for Thyroid, #30 TAB 0 Refills Metoclopramide (Reglan) 10 Mg Tab 10 MG PO TID, #20 TAB 0 Refills Ranitidine (Ranitidine) 150 Mg Tab 150 MG PO BID for Heartburn Management, #60 TAB 0 Refills Nasir Garcia MD Aug 23, 2017 6:06 pm
== END 2017-08-23 12:16 | disposition home or self-care (01) | DRG 394 ==
LOC: NEPD 09:39 → NEDA 14:50 → INTOOBSV 14:50 → N04A 16:37 → N04B 16:59 → OBSVTOIN 18:16
PROVIDERS: ADMIT Family Medicine; ATTEND Family Medicine
DX: K60.2 Anal fissure, unspecified (principal); C92.00 Acute myeloblastic leukemia, not having achieved remission; D61.818 Other pancytopenia; K64.5 Perianal venous thrombosis; I48.91 Unspecified atrial fibrillation; K56.41 Fecal impaction; I10 Essential (primary) hypertension; R00.0 Tachycardia, unspecified; E03.9 Hypothyroidism, unspecified; J44.9 Chronic obstructive pulmonary disease, unspecified; I25.2 Old myocardial infarction; E78.5 Hyperlipidemia, unspecified; E87.6 Hypokalemia; R63.4 Abnormal weight loss; I44.0 Atrioventricular block, first degree; M19.90 Unspecified osteoarthritis, unspecified site; F41.9 Anxiety disorder, unspecified; F17.200 Nicotine dependence, unspecified, uncomplicated; Z88.0 Allergy status to penicillin; Z88.6 Allergy status to analgesic agent
CPT/HCPCS: 76937; 80048; 80053; 80162; 82310; 83036; 83735; 84443; 85007; 85027; 85610; 86850; 86900; 86901; 93005; 99285; G0378; J1885; J2405; J3480

== ENCOUNTER 2017-09-19 13:20 | Inpatient (IN) | payer MEDICARE, OTHER ==
[2017-09-19] VITALS (7 sets, daily range): BP systolic 112–132; BP diastolic 63–65; PULSE 73–80; RESP 16–19; TEMP 97.7–98.7; O2SAT 95–98
[~2017-09-19] VITALS: Ht 165.1 cm; Wt 77.5 kg
[~2017-09-19 13:20] MED LIST changes: +HYDR-3516 PO; +MIRTA15 PO; +PROCHCT RECTAL; +SANC3.1D T-DERMAL; +Silv Sulfadiazine-Lidocaine Cr RECTAL
[2017-09-19] MEDS ORDERED: ATOR40TA16 PO (13:40)
[2017-09-19] MEDS ORDERED: METO25TA3 PO (13:40)
[2017-09-19] MEDS ORDERED: SODIUM CHLOR 0.9% 1000 ML INJ 1,000 ML IV ONE ×2 (14:00→16:15)
[2017-09-19] MEDS ORDERED: ONDANSETRON HCL 4 MG/2 ML VIAL IV PUSH ONE (14:00)
--- NOTE | 2017-09-19 14:17 | PD ---
HPI Chief Complaint: GI Complaint Time Seen by Provider: 13:41 Travel History International Travel<30 days: No Contact w/Intl Traveler<30days: No History of Present Illness HPI This 67 year-old woman who presents to the emergency department complaining of nausea vomiting and abdominal pain for the past 24 hours. 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 She states that she was diagnosed about half a year ago she's had worsening generalized symptoms. She states she hasn't really been eating well since then. Over the past 24 hours symptoms got much more pronounced. She states she was in [facility] a week ago with similar symptoms. She does not take any medicine at home for nausea or vomiting. She states didn't work for her. Her last chemotherapy was about 2-1/2 months ago. She called EMS. Initial blood pressure on scene was a systolic in the 70s, improved into the 90s with some IV fluid. History Past Medical History Narrative Medical A mL, followed by Dr. Yarbrough COPD History tobacco use History of obesity A. fib Anxiety Hyperlipidemia Hypertension Hypothyroidism Menopausal: Yes : 2 Para: 2 Social History Alcohol Use: No Tobacco Use: No (quit 2012) Allergies-Medications (Allergen,Severity, Reaction): Coded Allergies: penicillin G (Verified Allergy, Severe, 09/19/17) aspirin (Verified Allergy, Unknown, "MAKES MY STOMACH HURT A BIT", 09/19/17 ) Reported Meds & Prescriptions Reported Meds & Active Scripts Active Hydrocodone-Acetamin 5-325 mg (Hydrocodone/Acetaminophen) 5 Mg-325 Mg Tablet 1 Tab PO Q6H PRN Dronabinol 5 Mg Cap 5 Mg PO BID@11,16 30 Days Reported Atorvastatin (Atorvastatin Calcium) 40 Mg Tab 40 Mg PO HS Metoprolol Tartrate 25 Mg Tab 25 Mg PO BID Review of Systems Except as stated in HPI: all other systems reviewed are Neg Physical Exam Narrative GENERAL: Well-appearing 67 year-old woman, no acute distress. SKIN: Decreased skin turgor. HEAD: Atraumatic. Normocephalic. EYES: Pupils equal and round. No scleral icterus. No injection or drainage. ENT: No nasal bleeding or discharge. Mucous membranes pink and moist. NECK: Trachea midline. No JVD. CARDIOVASCULAR: Regular rate and rhythm. No murmur appreciated. RESPIRATORY: No accessory muscle use. Clear to auscultation. Breath sounds equal bilaterally. GASTROINTESTINAL: Abdomen soft, non-tender, nondistended. Benign exam. MUSCULOSKELETAL: No obvious deformities. No clubbing. No cyanosis. No edema. NEUROLOGICAL: Awake and alert. No obvious cranial nerve deficits. Motor grossly within normal limits. Normal speech. PSYCHIATRIC: Appropriate mood and affect; insight and judgment normal. Data Data Last Documented VS Vital Signs Date Time Temp Pulse Resp B/P (MAP) Pulse Ox O2 Delivery O2 Flow Rate FiO2 09/19/17 13:31 97.7 80 19 95 Room Air Orders Orders Complete Blood Count With Diff (09/19/17 13:55) Comprehensive Metabolic Panel (09/19/17 13:55) Iv Access Insert/Monitor (09/19/17 13:55) Lipase (09/19/17 13:55) Sodium Chlor 0.9% 1000 Ml Inj (Ns 1000 M (09/19/17 14:00) Urinalysis - C+S If Indicated (09/19/17 13:55) Ondansetron Inj (Zofran Inj) (09/19/17 14:00) Sodium Chlor 0.9% 1000 Ml Inj (Ns 1000 M (09/19/17 16:15) Prochlorperazine Inj (Compazine Inj) (09/19/17 16:15) Diphenhydramine Inj (Benadryl Inj) (09/19/17 16:15) Blood Culture (09/19/17 16:09) Lactic Acid (09/19/17 16:10) Admit Order (Ed Use Only) (09/19/17 ) Potassium Chloride Eff (K-Lyte Cl Eff) (09/19/17 16:30) Potassium Chlor 20 Meq Premix (Kcl 20 Me (09/19/17 16:30) Labs Laboratory Tests Test 09/19/17 14:18 09/19/17 16:00 White Blood Count 20.5 TH/MM3 Red Blood Count 3.09 MIL/MM3 Hemoglobin 9.9 GM/DL Hematocrit 29.9 % Mean Corpuscular Volume 96.7 FL Mean Corpuscular Hemoglobin 31.9 PG Mean Corpuscular Hemoglobin Concent 33.0 % Red Cell Distribution Width 21.7 % Platelet Count 27 TH/MM3 Mean Platelet Volume 10.4 FL CBC Comment AUTO DIFF Differential Total Cells Counted 100 Neutrophils % (Manual) 4 % Lymphocytes % 22 % Monocytes % 3 % Neutrophils # (Manual) 0.8 TH/MM3 Differential Comment AUTO DIFF CONFIRMED Blastocytes 71 % Platelet Estimate LOW Platelet Morphology Comment ENLARGED Tear Drop Cells 1+ Ovalocytes 1+ Blood Urea Nitrogen 7 MG/DL Creatinine 0.60 MG/DL Random Glucose 61 MG/DL Total Protein 5.3 GM/DL Albumin 2.3 GM/DL Calcium Level 6.6 MG/DL Alkaline Phosphatase 98 U/L Aspartate Amino Transf (AST/SGOT) 17 U/L Alanine Aminotransferase (ALT/SGPT) 6 U/L Total Bilirubin 0.6 MG/DL Sodium Level 142 MEQ/L Potassium Level 2.8 MEQ/L Chloride Level 109 MEQ/L Carbon Dioxide Level 20.6 MEQ/L Anion Gap 12 MEQ/L Estimat Glomerular Filtration Rate 99 ML/MIN Protein Corrected Calcium 7.5 MG/DL Lipase 425 U/L Urine Color YELLOW Urine Turbidity HAZY Urine pH 5.5 Urine Specific [place] 1.012 Urine Protein TRACE mg/dL Urine Glucose (UA) NEG mg/dL Urine Ketones 80 mg/dL Urine Occult Blood SMALL Urine Nitrite NEG Urine Bilirubin NEG Urine Urobilinogen 2.0 MG/DL Urine Leukocyte Esterase NEG Urine RBC 1 /hpf Urine WBC 1 /hpf Urine Squamous Epithelial Cells 8 /hpf Urine Bacteria RARE /hpf Urine Mucus FEW /lpf Microscopic Urinalysis Comment CULT NOT INDICATED MDM Medical Decision Making Medical Screen Exam Complete: Yes Emergency Medical Condition: Yes Interpretation(s) LABS: CBC remarkable for leukocytosis, mild anemia, marked thrombocytopenia CMP remarkable for hypokalemia Differential Diagnosis Gastroenteritis, gastritis, adverse effects of medication, leukemia, anemia, other Narrative Course Medical decision-making 59-year-old woman presents emergent from with nausea and vomiting for the past 24 hours, and the setting of symptoms for the past weeks to months. Looks a little bit dehydrated. Last chemotherapy was a couple months ago. We'll check labs, IV fluids, symptomatic and supportive treatment. Diagnosis Primary Impression: Nausea & vomiting Additional Impressions: Dehydration Hypokalemia Admitting Information Admitting Physician Requests: Admit Roland Quarles MD Sep 19, 2017 14:17
[2017-09-19 14:57] LABS: HEMATOCRIT 29.9 % (35.0-46.0); HEMOGLOBIN 9.9 GM/DL (11.6-15.3); MEAN CELL VOLUME 96.7 FL (80.0-100.0); MEAN CORPUSCULAR HEMOGLOBIN 31.9 PG (27.0-34.0); MEAN PLATELET VOLUME 10.4 FL (7.0-11.0); PLATELET COUNT 27 TH/MM3 (150-450); RED BLOOD COUNT 3.09 MIL/MM3 (4.00-5.30); RED CELL DISTRIBUTION WIDTH 21.7 % (11.6-17.2); WHITE BLOOD COUNT 20.5 TH/MM3 (4.0-11.0)
[2017-09-19 16:00] LABS: ALBUMIN 2.3 GM/DL (3.4-5.0); BICARBONATE 20.6 MEQ/L (21.0-32.0); CALCIUM 6.6 MG/DL (8.5-10.1); CALCIUM-PROTEIN CORRECTED 7.5 MG/DL (8.5-10.1); CREATININE 0.6 MG/DL (0.50-1.00); TOTAL BILIRUBIN ADULT 0.6 MG/DL (0.2-1.0); TOTAL PROTEIN 5.3 GM/DL (6.4-8.2)
[2017-09-19] MEDS ORDERED: PROCHLORPERAZINE INJ 10 MG/2 ML VIAL IV PUSH ONE (16:15)
[2017-09-19] MEDS ORDERED: diphenhydrAMINE HCL 50 MG/ML VIAL IV PUSH ONE (16:15)
[2017-09-19] MEDS ORDERED: DEXTROSE 50% IN WATER 50 ML VIAL(D50) IV PUSH ONE (16:30)
[2017-09-19] MEDS ORDERED: SODIUM CHLORIDE 0.9% FLUSH 10 ML FLUSH IV FLUSH PRN (16:30)
[2017-09-19] MEDS ORDERED: POTASSIUM CHLORIDE 25 MEQ EFFERVESCENT TAB PO ONE (16:30)
[2017-09-19] MEDS ORDERED: CALCIUM GLUCONATE 10% 1 GM/10 ML VIAL IV PUSH ONE (16:30)
[2017-09-19] MEDS ORDERED: RESP: ALBUTEROL 2.5 MG/IPRATROPIUM 0.5 MG NEB (PRN) NEB (16:30)
[2017-09-19] MEDS ORDERED: NALOXONE HCL 0.4 MG/ML AMP IV PUSH PRN (16:30)
[2017-09-19 16:33] LABS: BLASTS 71 % (0-0); LYMPHOCYTES 22 % (9-44); MONOCYTES 3 % (0-8); NEUTROPHIL # MANUAL DIFF 0.8 TH/MM3 (1.8-7.7); POLYS (SEG NEUTROPHILS) 4 % (16-70)
[2017-09-19 16:33] LABS: BACTERIA, URINE RARE /hpf; BLOOD, URINE SMALL (NEG); GLUCOSE,URINE NEG (NEG); KETONE, URINE 80 mg/dL (NEG); MUCUS URINE FEW /lpf (OCC); NITRITE,URINE NEG (NEG); PH, URINE 5.5 (5.0-8.5); SQUAMOUS EPITHELIAL CELL URINE 8 /hpf (0-5); URINE COLOR YELLOW (YELLW/STRAW); URINE LEUKOCYTE ESTERASE NEG (NEG)
[2017-09-19 16:36] LABS: OVALOCYTES 1+ (NORMAL); TEARDROP RBCS 1+ (NORMAL)
[2017-09-19 16:37] LABS: BILIRUBIN, URINE NEG (NEG)
[2017-09-19] MEDS ORDERED: CALCIUM GLUCONATE INJ 1 GM in SODIUM CHLORIDE 0.9% INJ 100 ML IV ONE (17:00)
[2017-09-19] MEDS ORDERED: DIATRIZOATE MEGLUM/DIATRIZOATE SOD 9 ML CUP PO ONE (17:02)
--- NOTE | 2017-09-19 17:11 | HHI.HP ---
[facility] Service [place] [facility] Primary Care Physician Unknown Admission Diagnosis nausea vomiting, leukemia Diagnoses: Travel History International Travel<30 Days: No Contact w/Intl Traveler <30 Da: No History of Present Illness History from patient, her daughter over the phone, ER physician, and review of medical records. Patient reported that for the past 24 hours, she was having severe nausea, and vomited a lot. She reports even small sip of water would make her vomit. She also reports of abdominal pain diffusely. Denies diarrhea. She denies any black stool red stool. She states she is still passing gas. Her last bowel movement was the day before yesterday. Patient states she was discharged from [facility] about 7 days ago. This was confirmed with her daughter. She was hospitalized there for 11 days. She was in ICU for the first few days. Next and horrible both the patient and the daughter stated that she was in ICU because her blood pressure was high. She also received platelet transfusion there. She was managed therefore possible bowel obstruction. However she did not have any NG tube. No surgery was required. She was just managed with medications and she eventually made bowel movement the day of discharge. She was never intubated. Her heart rate was also high at around 127 over there. She has history of hemorrhoids. However no GI bleed during that hospitalization. No fever. Her potassium was low during that hospitalization as well. Patient and daughter were not sure whether patient was on steroids there. However the confirms that patient did receive platelet transfusion. They are unsure whether patient was treated with antibiotics there. Patient states that she was basically sent to [facility] that day from PCP office because she was having nausea, vomiting, dyspnea at the office with some feeling of dizziness. The ambulance at that time had to send her to the nearest hospital. Patient office is closer to [place]. does have shortness of breath - but this is chronic since diagnosis of AML february Review of Systems Except as stated in HPI: all other systems reviewed are Neg Past Family Social History Past Medical History htn copd- quit smoking 5 yrs ago afib AML hypothyroidism- was increased from 100mcg to 112mcg on 08/23/17 notes - but pt states she was told she no longer needs it and have been off meds for about 2months or less brain aneurysm/angioma on seizure meds as prophylaxis previously due to aneursyms- but was d/daly later by Dr Lgoan Past Surgical History appendectomy c section x 2 back sx left leg venous stripping Allergies: Coded Allergies: penicillin G (Verified Allergy, Severe, 09/19/17) aspirin (Verified Allergy, Unknown, "MAKES MY STOMACH HURT A BIT", 09/19/17 ) Family History heart attacks, blood pressure- in the whole family both side Social History used to smoke, quit 5 yrs ago no etoh or drug abuse lives by herself, no driving Physical Exam Vital Signs Vital Signs Date Time Temp Pulse Resp B/P (MAP) Pulse Ox O2 Delivery O2 Flow Rate FiO2 09/19/17 13:31 97.7 80 19 95 Room Air Physical Exam GENERAL: This is a well-nourished, well-developed patient, in mild distress from abdominal pain SKIN: No rashes, ecchymoses or lesions. Cool and dry. HEAD: Atraumatic. Normocephalic. No temporal or scalp tenderness. EYES: No scleral icterus. No injection or drainage. ENT: Nose without bleeding, purulent drainage or septal hematoma.. Airway patent. NECK: Trachea midline. No JVD. Supple, nontender, no meningeal signs. CARDIOVASCULAR: Regular rate and rhythm without murmurs, gallops, or rubs. RESPIRATORY: Clear to auscultation. Breath sounds equal bilaterally. No wheezes , rales, or rhonchi. GASTROINTESTINAL: Abdomen soft, non-tender, nondistended. No guarding. MUSCULOSKELETAL: Extremities without clubbing, cyanosis, or edema. No calf tenderness. NEUROLOGICAL: Awake and alert. Motor and sensory grossly within normal limits. Normal speech. Laboratory Laboratory Tests Test 09/19/17 14:18 09/19/17 16:00 White Blood Count 20.5 Red Blood Count 3.09 Hemoglobin 9.9 Hematocrit 29.9 Mean Corpuscular Volume 96.7 Mean Corpuscular Hemoglobin 31.9 Mean Corpuscular Hemoglobin Concent 33.0 Red Cell Distribution Width 21.7 Platelet Count 27 Mean Platelet Volume 10.4 CBC Comment AUTO DIFF Differential Total Cells Counted 100 Neutrophils % (Manual) 4 Lymphocytes % 22 Monocytes % 3 Neutrophils # (Manual) 0.8 Differential Comment AUTO DIFF CONFIRMED Blastocytes 71 Platelet Estimate LOW Platelet Morphology Comment ENLARGED Tear Drop Cells 1+ Ovalocytes 1+ Blood Urea Nitrogen 7 Creatinine 0.60 Random Glucose 61 Total Protein 5.3 Albumin 2.3 Calcium Level 6.6 Alkaline Phosphatase 98 Aspartate Amino Transf (AST/SGOT) 17 Alanine Aminotransferase (ALT/SGPT) 6 Total Bilirubin 0.6 Sodium Level 142 Potassium Level 2.8 Chloride Level 109 Carbon Dioxide Level 20.6 Anion Gap 12 Estimat Glomerular Filtration Rate 99 Protein Corrected Calcium 7.5 Lipase 425 Urine Color YELLOW Urine Turbidity HAZY Urine pH 5.5 Urine Specific [place] 1.012 Urine Protein TRACE Urine Glucose (UA) NEG Urine Ketones 80 Urine Occult Blood SMALL Urine Nitrite NEG Urine Bilirubin NEG Urine Urobilinogen 2.0 Urine Leukocyte Esterase NEG Urine RBC 1 Urine WBC 1 Urine Squamous Epithelial Cells 8 Urine Bacteria RARE Urine Mucus FEW Microscopic Urinalysis Comment CULT NOT INDICATED Result Diagram: 09/19/17 1418 09/19/17 1418 Caprini VTE Risk Assessment Caprini VTE Risk Assessment: Mod/High Risk (score >= 2) Caprini Risk Assessment Model Point Value = 1 Point Value = 2 Point Value = 3 Point Value = 5 Age 41-60 Minor surgery BMI > 25 kg/m2 Swollen legs Varicose veins or History of unexplained or recurrent spontaneous Oral contraceptives or hormone replacement Sepsis (< 1 month) Serious lung disease, including pneumonia (< 1 month) Abnormal pulmonary function Acute myocardial infarction Congestive heart failure (< 1 month) History of inflammatory bowel disease Medical patient at bed rest Age 61-74 Arthroscopic surgery Major open surgery (> 45 min) Laparoscopic surgery (> 45 min) Malignancy Confined to bed (> 72 hours) Immobilizing plaster cast Central venous access Age >= 75 History of VTE Family history of VTE Factor V Leiden Prothrombin [id number] Lupus anticoagulant Anticardiolipin antibodies Elevated serum homocysteine Heparin-induced thrombocytopenia Other congenital or acquired thrombophilia Stroke (< 1 month) Elective arthroplasty Hip, pelvis, or leg fracture Acute spinal cord injury (< 1 month) Prophylaxis Regimen Total Risk Factor Score Risk Level Prophylaxis Regimen 0-1 Low Early ambulation 2 Moderate Order ONE of the following: *Sequential Compression Device (SCD) *Heparin 5000 units SQ BID 3-4 Higher Order ONE of the following medications: *Heparin 5000 units SQ TID *Enoxaparin/Lovenox 40 mg SQ daily (WT < 150 kg, CrCl > 30 mL/min) *Enoxaparin/Lovenox 30 mg SQ daily (WT < 150 kg, CrCl > 10-29 mL/min) *Enoxaparin/Lovenox 30 mg SQ BID (WT < 150 kg, CrCl > 30 mL/min) AND/OR *Sequential Compression Device (SCD) 5 or more Highest Order ONE of the following medications: *Heparin 5000 units SQ TID (Preferred with Epidurals) *Enoxaparin/Lovenox 40 mg SQ daily (WT < 150 kg, CrCl > 30 mL/min) *Enoxaparin/Lovenox 30 mg SQ daily (WT < 150 kg, CrCl > 10-29 mL/min) *Enoxaparin/Lovenox 30 mg SQ BID (WT < 150 kg, CrCl > 30 mL/min) AND *Sequential Compression Device (SCD) Assessment and Plan Assessment and Plan Impression: leukocytosis- possible from dehydration possible cdiff with ileus in recent hospitalized patient with leukocytosis Clinically dehydrated hypokalemia hypocalcemia htn copd- quit smoking 5 yrs ago afib AML hypothyroidism- was increased from 100mcg to 112mcg on 08/23/17 notes - but pt states she was told she no longer needs it and have been off meds for about 2months or less brain aneurysm/angioma on seizure meds as prophylaxis previously due to aneursyms- but was d/daly later by Dr Logan Plan: iv hydration cdiff studies ct abdomen and pelvis to evaluate for possible ileus vs obstruction vs colitis for now, no antibiotics, pt does not look septic, no fever cxr pa and lateral ua clean obtain records from [facility] would need to watch out for signs and symptoms of infection as patient was in hospital recently and also did receive platelet transfusions. Potassium 50 mEq by mouth, and 40 mEq IV. Calcium gluconate 1 g IV. Will monitor electrolytes closely. Telemetry monitoring. Resume home meds. Verified with patient. DVT prophylaxis with Lovenox. Discussed Condition With patient, daughter over phone, nursing, ER MD Physician Certification 2 Midnight Certification Type: Admission for Inpatient Services Order for Inpatient Services The services are ordered in accordance with Medicare regulations or non- Medicare payer requirements, as applicable. In the case of services not specified as inpatient-only, they are appropriately provided as inpatient services in accordance with the 2-midnight benchmark. Estimated LOS (days): 2 days is the estimated time the patient will need to remain in the hospital, assuming treatment plan goals are met and no additional complications. Post-Hospital Plan: Home Nerissa Interiano MD Sep 19, 2017 17:11
[2017-09-19] MEDS: POTASSIUM CHLOR 20 MEQ PREMIX 100 ML IV SCH (19:30)
[2017-09-19] MEDS: RESP: ALBUTEROL 2.5 MG/IPRATROPIUM 0.5 MG NEB (SCH) NEB (20:26)
[2017-09-19] MEDS ORDERED: POTASSIUM CHLORIDE 20 MEQ CONTROLLED RELEASE TAB PO ONE (20:30)
[2017-09-19] MEDS: ONDANSETRON HCL 4 MG/2 ML VIAL IVP PRN (20:41)
[2017-09-19] MEDS: METOPROLOL TARTRATE 25 MG TAB PO SCH (21:00)
[2017-09-19] MEDS: ATORVASTATIN 40 MG TAB PO SCH (21:00)
[2017-09-19] MEDS: SODIUM CHLORIDE 0.9% FLUSH 10 ML FLUSH IV FLUSH SCH (21:00)
--- NOTE | 2017-09-19 21:49 | RADRPT ---
EXAM DATE/TIME: 09/19/2017 20:52 [facility] COMPARISON: CHEST PA & LAT, March 25, 2017, 20:48. INDICATIONS : Short of breath. Pneumonia per order. MEDICAL HISTORY : Cardiovascular disease. Seizures. Hypertension. CVA. A-fib. SURGICAL HISTORY : Appendectomy. ENCOUNTER: Initial ACUITY: 1 day PAIN SCORE: 0/10 LOCATION: Bilateral chest FINDINGS: PA and lateral views of the chest demonstrate heart size mildly enlarged. Minimal basilar atelectasis . No significant effusion. No pneumothorax. CONCLUSION: 1. Minimal basilar atelectasis or scarring. Mild cardiomegaly. No effusion or pneumothorax. Rivas Tejeda MD on September 19, 2017 at 21:45 Board Certified Radiologist. This report was verified electronically.
[2017-09-19 23:25] LABS: BICARBONATE 22.6 MEQ/L (21.0-32.0); CALCIUM 7.4 MG/DL (8.5-10.1); CREATININE 0.69 MG/DL (0.50-1.00)
[2017-09-19 23:43] LABS: CALCIUM-PROTEIN CORRECTED 8.3 MG/DL (8.5-10.1); TOTAL PROTEIN 5.5 GM/DL (6.4-8.2)
[2017-09-19] MEDS ORDERED: IOHEXOL 350 MG/ML 10 ML VIAL (for RAD DIAG) IVCONTRAST ONE (23:50)
[2017-09-20] VITALS (12 sets, daily range): BP systolic 108–131; BP diastolic 56–81; PULSE 73–83; RESP 16–18; TEMP 98–98.3; O2SAT 92–97
--- NOTE | 2017-09-20 00:11 | RADRPT ---
EXAM DATE/TIME: 09/19/2017 23:27 [facility] COMPARISON: CT ABDOMEN & PELVIS W CONTRAST, July 09, 2017, 21:58. INDICATIONS : Diffuse abdominal pain with nausea and vomiting. IV CONTRAST: 75 cc Omnipaque 350 (iohexol) IV ORAL CONTRAST: No oral contrast ingested. RADIATION DOSE: 9.53 CTDIvol (mGy) MEDICAL HISTORY : Hypertension. Chronic obstructive pulmonary disease. SURGICAL HISTORY : Appendectomy. section. ENCOUNTER: Initial ACUITY: 1 day PAIN SCALE: 8/10 LOCATION: Abdomen. TECHNIQUE: Volumetric scanning of the abdomen and pelvis was performed. Using automated exposure control and ad justment of the mA and/or kV according to patient size, radiation dose was kept as low as reasonably achievable to obtain optimal diagnostic quality images. DICOM format image data is available electro nically for review and comparison. FINDINGS: LOWER LUNGS: The visualized lower lungs are clear. LIVER: Homogeneous density without lesion. There is no dilation of the biliary tree. No calcified gallston es. SPLEEN: Normal size without lesion. PANCREAS: Within normal limits. KIDNEYS: Normal in size and shape. There is no mass, stone or hydronephrosis. ADRENAL GLANDS: Within normal limits. VASCULAR: Stable size to the mid abdominal aortic aneurysm measuring 3.1 cm. There is some new anterior intral uminal thrombus at the level of the renal vein. BOWEL/MESENTERY: No dilated loops of small or large bowel. Oral contrast passes through to the rectum. A few small s igmoid diverticula without radiographic evidence of diverticulitis. ABDOMINAL WALL: Within normal limits. RETROPERITONEUM: There is no lymphadenopathy. BLADDER: No wall thickening or mass. REPRODUCTIVE: Within normal limits. INGUINAL: There is no lymphadenopathy or hernia. MUSCULOSKELETAL: Within normal limits for patient age. CONCLUSION: 1. No acute findings. Mild sigmoid diverticula. 2. Stable size to the 3.1 cm mid abdominal aortic aneurysm. Yared Sethi MD on September 19, 2017 at 23:52 Board Certified Radiologist. This report was verified electronically.
[2017-09-20] MEDS ORDERED: LORazepam 2 MG/ML VIAL IV PUSH ONE (01:30)
[2017-09-20] MEDS: RESP: ALBUTEROL 2.5 MG/IPRATROPIUM 0.5 MG NEB (SCH) NEB ×4 (03:06→21:09)
[2017-09-20 06:47] LABS: HEMOGLOBIN 7.8 GM/DL (11.6-15.3); MEAN CELL VOLUME 95.3 FL (80.0-100.0); MEAN CORPUSCULAR HEMOGLOBIN 32.4 PG (27.0-34.0); MEAN PLATELET VOLUME 9.2 FL (7.0-11.0); PLATELET COUNT 20 TH/MM3 (150-450); RED BLOOD COUNT 2.42 MIL/MM3 (4.00-5.30); RED CELL DISTRIBUTION WIDTH 21.5 % (11.6-17.2); WHITE BLOOD COUNT 16.7 TH/MM3 (4.0-11.0)
[2017-09-20 07:08] LABS: ALBUMIN 2.5 GM/DL (3.4-5.0); AST (GOT) 16 U/L (15-37); BICARBONATE 24.2 MEQ/L (21.0-32.0); BLOOD UREA NITROGEN 5 MG/DL (7-18); CALCIUM 7.5 MG/DL (8.5-10.1); CHLORIDE 106 MEQ/L (98-107); CREATININE 0.76 MG/DL (0.50-1.00); GLOMERULAR FILTRATION RATE 76 ML/MIN (>89); GLUCOSE,RANDOM 67 MG/DL (74-106); SODIUM (NA) 141 MEQ/L (136-145)
[2017-09-20 07:13] LABS: ALKALINE PHOSPHATASE 101 U/L (45-117); ALT (GPT) 7 U/L (10-53); TOTAL BILIRUBIN ADULT 0.7 MG/DL (0.2-1.0); TOTAL PROTEIN 5.6 GM/DL (6.4-8.2)
[2017-09-20] MEDS ORDERED: ENOXAPARIN SODIUM 40 MG/0.4 ML SYRINGE SQ SCH (09:00)
[2017-09-20] MEDS: SODIUM CHLORIDE 0.9% FLUSH 10 ML FLUSH IV FLUSH SCH ×2 (09:00→21:00)
[2017-09-20] MEDS: METOPROLOL TARTRATE 25 MG TAB PO SCH ×2 (09:00→23:51)
[2017-09-20] MEDS: POTASSIUM CHLOR 20 MEQ PREMIX 100 ML IV SCH (09:27)
[2017-09-20] MEDS ORDERED: POTASSIUM CHLOR 20 MEQ PREMIX 100 ML ONE (09:27)
[2017-09-20 09:40] LABS: BLASTS 83 % (0-0); LYMPHOCYTES 14 % (9-44); MONOCYTES 1 % (0-8); POLYS (SEG NEUTROPHILS) 2 % (16-70)
[2017-09-20 09:51] LABS: NEUTROPHIL # MANUAL DIFF 0.3 TH/MM3 (1.8-7.7); OVALOCYTES 1+ (NORMAL); SMUDGE CELLS PRESENT PRESENT; TEARDROP RBCS 1+ (NORMAL)
[2017-09-20] MEDS ORDERED: POLYETHYLENE GLYCOL 17 GM PKG PO ONE (11:45)
[2017-09-20] MEDS ORDERED: ZOLPIDEM TARTRATE 5 MG TAB PO PRN (11:45)
[2017-09-20] MEDS: ONDANSETRON HCL 4 MG/2 ML VIAL IVP PRN (12:26)
[2017-09-20] MEDS ORDERED: SODIUM CHLOR 0.9% 250 ML INJ 250 ML IV ONE ×2 (13:30→18:30)
--- NOTE | 2017-09-20 15:30 | PD.CONS ---
HPI History of Present Illness This is a 67 year old F who presented to the emergency department yesterday with complaints of nausea and vomiting. She reports recent hospital admission to [facility] ICU where she was treated for high blood pressure. She was home for about a week before returning for evaluation at [facility] yesterday for complaints of abdominal pain, nausea, and vomiting. She reports nausea has been constant since being started on chemotherapy for AML approximately five months ago. She has had three cycles of Dacogen. She states some relief with nausea medication, but as soon as the medication wares off the nausea returns. Denies BRB or coffee ground emesis. She has been unable to eat and reports significant weight loss although she is unsure how much. Reports last BM to be three days ago, states she is chronically constipated, has taken stool softeners in the past with relief. Does report passing flatus. She denies any abdominal pain at this time, however, exam reveals abdomen is diffusely tender to palpation. CT abdomen and pelvis with contrast (09/19) --> No acute findings. Mild sigmoid diverticula. Stable size to the 3.1 cm mid abdominal aortic aneurysm. Last chemo treatment was two months ago, she states her oncologist has not decided when next treatment will be and that it will depend on her blood counts and strength. According to oncology notes by Dr. Yarbrough pts H/H and platelets had been improving in June. Currently labs are as follows: H/ H 7.8/23 and platelet count-20. Pts last EGD and colonoscopy were done in this hospital in 2001, results revealed mild esophagitis, severe gastritis with ulceration, normal duodenum, and poor prep in the colonoscopy compromising visualization of polyp and small lesion, internal hemorrhoids. Denies ETOH, NSAIDs, smoking. (Tila Bah) PFSH Past Medical History htn copd- quit smoking 5 yrs ago afib AML hypothyroidism- was increased from 100mcg to 112mcg on 08/23/17 notes - but pt states she was told she no longer needs it and have been off meds for about 2months or less brain aneurysm/angioma on seizure meds as prophylaxis previously due to aneursyms- but was d/daly later by Dr Logan Past Surgical History appendectomy c section x 2 back sx left leg venous stripping (Tila Bah) Coded Allergies: penicillin G (Verified Allergy, Severe, 1/24/18) aspirin (Verified Allergy, Unknown, "MAKES MY STOMACH HURT A BIT", 09/19/17 ) Family History heart attacks, blood pressure- in the whole family both side Social History used to smoke, quit 5 yrs ago no etoh or drug abuse lives by herself, no driving (Tila Bah) Review of Systems Gastrointestinal: COMPLAINS OF: Constipation, Nausea, Vomiting, DENIES: Abdominal pain, Black stools, Bloody stools, Diarrhea, Difficulty Swallowing, Swelling of Abdomen, Heartburn, Hematemesis (Tila Bah) GI Exam Vitals I&O Vital Signs Date Time Temp Pulse Resp B/P (MAP) Pulse Ox O2 Delivery O2 Flow Rate FiO2 09/20/17 12:33 98.2 79 16 116/79 (91) 93 09/20/17 09:18 98.3 79 16 128/74 (92) 94 09/20/17 08:08 95 09/20/17 05:22 78 16 94 09/20/17 04:07 79 09/20/17 00:56 79 18 108/56 (73) 92 09/20/17 00:15 73 09/19/17 20:41 98.7 75 16 112/65 (81) 96 09/19/17 20:35 77 09/19/17 20:27 98 09/19/17 18:44 73 09/19/17 18:10 98.0 75 18 112/65 (81) 96 09/19/17 16:00 78 18 132/63 (86) 98 Room Air I/O 09/19/17 09/19/17 09/19/17 09/20/17 09/20/17 09/20/17 07:00 15:00 23:00 07:00 15:00 23:00 Intake Total 1100 ml 150 ml 933 ml Balance 1100 ml 150 ml 933 ml Intake Oral 150 ml IV Total 1100 ml 933 ml # Voids 2 Imaging Last Impressions Chest X-Ray 09/19/17 0000 Signed Impressions: Service Date/Time: Tuesday, September 19, 2017 20:52 - CONCLUSION: 1. Minimal basilar atelectasis or scarring. Mild cardiomegaly. No effusion or pneumothorax. Rivas Tejeda MD Abdomen/Pelvis CT 09/19/17 0000 Signed Impressions: Service Date/Time: Tuesday, September 19, 2017 23:27 - CONCLUSION: 1. No acute findings. Mild sigmoid diverticula. 2. Stable size to the 3.1 cm mid abdominal aortic aneurysm. Yared Sethi MD Laboratory Test 09/19/17 16:00 09/19/17 17:37 09/19/17 22:44 09/20/17 05:53 Urine Color YELLOW Urine Turbidity HAZY Urine pH 5.5 Urine Specific [place] 1.012 Urine Protein TRACE mg/dL Urine Glucose (UA) NEG mg/dL Urine Ketones 80 mg/dL Urine Occult Blood SMALL Urine Nitrite NEG Urine Bilirubin NEG Urine Urobilinogen 2.0 MG/DL Urine Leukocyte Esterase NEG Urine RBC 1 /hpf Urine WBC 1 /hpf Urine Squamous Epithelial Cells 8 /hpf Urine Bacteria RARE /hpf Urine Mucus FEW /lpf Microscopic Urinalysis Comment CULT NOT INDICATED Lactic Acid Level 0.6 mmol/L Blood Urea Nitrogen 6 MG/DL 5 MG/DL Creatinine 0.69 MG/DL 0.76 MG/DL Random Glucose 63 MG/DL 67 MG/DL Total Protein 5.5 GM/DL 5.6 GM/DL Calcium Level 7.4 MG/DL 7.5 MG/DL Sodium Level 141 MEQ/L 141 MEQ/L Potassium Level 3.0 MEQ/L 3.0 MEQ/L Chloride Level 107 MEQ/L 106 MEQ/L Carbon Dioxide Level 22.6 MEQ/L 24.2 MEQ/L Anion Gap 11 MEQ/L 11 MEQ/L Estimat Glomerular Filtration Rate 85 ML/MIN 76 ML/MIN Protein Corrected Calcium 8.3 MG/DL White Blood Count 16.7 TH/MM3 Red Blood Count 2.42 MIL/MM3 Hemoglobin 7.8 GM/DL Hematocrit 23.0 % Mean Corpuscular Volume 95.3 FL Mean Corpuscular Hemoglobin 32.4 PG Mean Corpuscular Hemoglobin Concent 34.0 % Red Cell Distribution Width 21.5 % Platelet Count 20 TH/MM3 Mean Platelet Volume 9.2 FL CBC Comment AUTO DIFF Differential Total Cells Counted 100 Neutrophils % (Manual) 2 % Lymphocytes % 14 % Monocytes % 1 % Neutrophils # (Manual) 0.3 TH/MM3 Differential Comment FINAL DIFF MANUAL Blastocytes 83 % Smudge Cells PRESENT Platelet Estimate LOW Platelet Morphology Comment ENLARGED Tear Drop Cells 1+ Ovalocytes 1+ Albumin 2.5 GM/DL Alkaline Phosphatase 101 U/L Aspartate Amino Transf (AST/SGOT) 16 U/L Alanine Aminotransferase (ALT/SGPT) 7 U/L Total Bilirubin 0.7 MG/DL Date/Time Source Procedure Growth Status 09/20/17 05:53 Blood Peripheral Aerobic Blood Culture Pending Received 09/20/17 05:53 Blood Peripheral Anaerobic Blood Culture Pending Received Physical Examination HEENT: Normocephalic; atraumatic. CHEST: Even/unlabored CARDIAC: RRR ABDOMEN: Round, soft, diffuse TTP, bowel sounds active SKIN: Normal; no rash; no jaundice. COLLECTIONS ASSOCIATE: No focal deficits; alert and oriented times three. (Tila Bah) Assessment and Plan Plan Assessment: - Intractable nausea/vomiting- began approx 5 months ago when pt started chemo treatment for AML. Reportedly recently hospitalized at [facility] for 11 days in the ICU for evaluation of vomiting and high blood pressure. CT abdomen and pelvis with contrast (09/19) --> No acute findings. Mild sigmoid diverticula. Stable size to the 3.1 cm mid abdominal aortic aneurysm. Last chemo treatment was two months ago, she states her oncologist has not decided when next treatment will be and that it will depend on her blood counts and strength. According to oncology notes by Dr. Yarbrough pts H/H and platelets had been improving in June. Currently labs are as follows: H/H 7.8/23 and platelet count-20. Pts last EGD and colonoscopy were done in this hospital in 2001, results revealed mild esophagitis, severe gastritis with ulceration, normal duodenum, and poor prep in the colonoscopy compromising visualization of polyp and small lesion, internal hemorrhoids. - Pancytopenia- Platelets currently 20. Not adequate for EGD evaluation. Will ask oncology to determine platelet transfusion for endoscopic evaluation. - AMS- last chemo treatment 2 months ago Plan: - Oncology recommendations for platelet transfusion - EGD pending correction of thrombocytopenia - Continue Zofran - GES - Add Reglan pending GES - Further recommendations to follow based on results of above Pt has been seen and examined by myself and Dr. Calderón and this note is written on his behalf (Tila Bah) Plan Patient was seen and examined, agree with above Notes, plan on upper endoscopy tomorrow to rule out peptic ulcer disease esophagitis, if negative patient will need gastric emptying study, patient was seen also by Dr. Yarbrough who thinks it is reasonable to do the endoscopy tomorrow with her white blood cells above 500 (Palak Calderón MD) Tila Bah Sep 20, 2017 15:30 Palak Calderón MD Sep 20, 2017 18:20
--- NOTE | 2017-09-20 16:00 | HHI.PR ---
Subjective Remarks Follow-up for intractable emesis Patient stated that she's been having emesis since since 2 months ago after chemotherapy. She stated since then it has not improved. She stated that she tried multiple medication with no improvement. Denied any abdominal pain or diarrhea. Patient asking for sleeping aid. She also stated that she is constipated. Objective Vitals Vital Signs Date Time Temp Pulse Resp B/P (MAP) Pulse Ox O2 Delivery O2 Flow Rate FiO2 09/20/17 12:33 98.2 79 16 116/79 (91) 93 09/20/17 09:18 98.3 79 16 128/74 (92) 94 09/20/17 08:08 95 09/20/17 05:22 78 16 94 09/20/17 04:07 79 09/20/17 00:56 79 18 108/56 (73) 92 09/20/17 00:15 73 09/19/17 20:41 98.7 75 16 112/65 (81) 96 09/19/17 20:35 77 09/19/17 20:27 98 09/19/17 18:44 73 09/19/17 18:10 98.0 75 18 112/65 (81) 96 09/19/17 16:00 78 18 132/63 (86) 98 Room Air I/O 09/19/17 09/19/17 09/19/17 09/20/17 09/20/17 09/20/17 07:00 15:00 23:00 07:00 15:00 23:00 Intake Total 1100 ml 150 ml 933 ml Balance 1100 ml 150 ml 933 ml Intake Oral 150 ml IV Total 1100 ml 933 ml # Voids 2 Result Diagram: 09/20/17 0553 09/20/17 0553 Objective Remarks GENERAL: in NAD CARDIOVASCULAR: Regular rate and rhythm without murmurs, gallops, or rubs. RESPIRATORY: Breath sounds equal bilaterally. No accessory muscle use. GASTROINTESTINAL: Abdomen soft, non-tender, nondistended. MUSCULOSKELETAL: No cyanosis, or edema. BACK: Nontender without obvious deformity. No CVA tenderness. Medications and IVs Current Medications Sodium Chloride 1,000 ml @ 2,000 mls/hr Q30M ONCE IV Last administered on 09/19at 14:25; Start 09/19/17 at 14:00; Stop 09/19/17 at 14:29; Status DC Ondansetron HCl (Zofran Inj) 4 mg ONCE ONCE IV PUSH Last administered on at 14:26; Start 09/19/17 at 14:00; Stop 09/19/17 at 14:14; Status DC Sodium Chloride 1,000 ml @ 2,000 mls/hr Q30M ONCE IV Last administered on 09/19at 16:22; Start 09/19/17 at 16:15; Stop 09/19/17 at 16:44; Status DC Prochlorperazine Edisylate (Compazine Inj) 10 mg ONCE ONCE IV PUSH Last administered on 09/19/17at 16:22; Start 09/19/17 at 16:15; Stop 09/19/17 at 16:16 ; Status DC Diphenhydramine HCl (Benadryl Inj) 25 mg ONCE ONCE IV PUSH Last administered on 09/19/17at 16:22; Start 09/19/17 at 16:15; Stop 09/19/17 at 16:16; Status DC Potassium Bicarb/ Potassium Chloride (K-Lyte Cl Eff) 50 meq ONCE ONCE PO ; Start 09/19/17 at 16:30; Stop 09/19/17 at 16:34; Status DC Potassium Chloride 100 ml @ 50 mls/hr Q2H IV Last administered on 09/20/17at 09 :27; Start 09/19/17 at 16:30; Stop 09/19/17 at 20:29; Status DC Calcium Gluconate (Calcium Gluconate Inj) 1 gm ONCE ONCE IV PUSH ; Start at 16:30; Stop 09/19/17 at 16:31; Status UNV Sodium Chloride (NS Flush) 2 ml UNSCH PRN IV FLUSH FLUSH AFTER USING IV ACCESS ; Start 09/19/17 at 16:30 Sodium Chloride (NS Flush) 2 ml BID IV FLUSH ; Start 09/19/17 at 21:00 Ondansetron HCl (Zofran Inj) 4 mg Q6H PRN IVP NAUSEA OR VOMITING Last administered on 09/20/17at 12:26; Start 09/19/17 at 16:30 Naloxone HCl (Narcan Inj) 0.4 mg UNSCH PRN IV PUSH SEE LABEL COMMENTS; Start at 16:30 Dextrose (D50w (Vial) Inj) 50 ml ONCE ONCE IV PUSH Last administered on at 17:05; Start 09/19/17 at 16:30; Stop 09/19/17 at 16:32; Status DC Albuterol/ Ipratropium (Duoneb Neb) 1 ampule Q6HR NEB NEB Last administered on 09/19/17at 20:26; Start 09/19/17 at 22:00 Albuterol/ Ipratropium (Duoneb Neb) 1 ampule Q2HR NEB PRN NEB WHEEZING; Start 09/19/17 at 16:30 Calcium Gluconate 1 gm/Sodium Chloride 110 ml @ 110 mls/hr ONCE ONCE IV Last administered on 09/19/17at 17:48; Start 09/19/17 at 17:00; Stop 09/19/17 at 17:59 ; Status DC Atorvastatin Calcium (Lipitor) 40 mg HS PO ; Start 09/19/17 at 21:00 Acetaminophen/ Hydrocodone Bitart ([place] 5-325 Mg) 1 tab Q6H PRN PO BREAKTHROUGH PAIN; Start 09/19/17 at 17:15 Metoprolol Tartrate (Lopressor) 25 mg BID PO ; Start 09/19/17 at 21:00 Diatrizoate Meglum/ Diatrizoate Sod ( Gastroview Liq) 18 ml ONCE ONCE PO ; Start 09/19/17 at 17:02; Stop 09/19/17 at 17:18; Status DC Potassium Chloride (KCl) 40 meq ONCE ONCE PO ; Start 09/19/17 at 20:30; Stop at 20:45; Status DC Enoxaparin Sodium (Lovenox Inj) 40 mg Q24H SQ Last administered on 09/20/17at 09 :23; Start 09/20/17 at 09:00; Stop 09/20/17 at 13:24; Status DC Iohexol (Omnipaque 350 Inj) 70 ml STK-MED ONCE IVCONTRAST Last administered on 09/19/17at 23:50; Start 09/19/17 at 23:50; Stop 09/19/17 at 23:51; Status DC Lorazepam (Ativan Inj) 0.5 mg ONCE ONCE IV PUSH Last administered on at 01:37; Start 09/20/17 at 01:30; Stop 09/20/17 at 01:31; Status DC Potassium Chloride 100 ml @ As Directed STK-MED ONCE .ROUTE ; Start 09/20/17 at 09:27; Stop 09/20/17 at 09:28; Status DC Zolpidem Tartrate (Ambien) 5 mg HS PRN PO insomnia; Start 09/20/17 at 11:45 Senna/Docusate Sodium (Ramya-Colace) 2 tab BID PO ; Start 09/20/17 at 21:00 Polyethylene Glycol (Miralax) 17 gm ONCE ONCE PO ; Start 09/20/17 at 11:45; Stop 09/20/17 at 11:46; Status DC Sodium Chloride 250 ml @ 15 mls/hr ONCE ONCE IV ; Start 09/20/17 at 13:30; Stop 09/21/17 at 06:09 Acetaminophen (Tylenol) 650 mg Q4H PRN PO SEE LABEL COMMENTS; Start 09/20/17 at 13:30 Diphenhydramine HCl (Benadryl) 25 mg Q4H PRN PO SEE LABEL COMMENTS; Start 09/20 at 13:30 Lorazepam (Ativan Inj) 0.5 mg Q4H PRN IV PUSH anxiety; Start 09/20/17 at 13:30 A/P Assessment and Plan 67-year-old female admitted due to intractable emesis Intractable emesis -Occurred 2 months ago after chemotherapy. -Patient was recently hospitalized in [place] and was on multiple anti-medics medications with no relief. She returned to the hospital since the symptoms are not resolved. -Consult GI. -Will give supportive care with IV fluids and antiemetics. Leukocytosis -May be due to dehydration. Patient also being treated for AML. -Based on clinical exam and workup no infectious etiology. -Improved with IV fluids. -Continue to monitor. Hypertension/COPD/atrial fibrillation/hypothyroidism/seizure disorder - Continue with home medication. Anemia -Hemoglobin decreased from 9-7.6. -No active bleeding. -May be hemoconcentrated. -Oncologist consulted. Will transfuse if hemoglobin less than 7 or symptomatic. AML -Oncologist consulted. DVT prophylaxis with Lovenox. Cecilia Domingo MD Sep 20, 2017 16:00
[2017-09-20] MEDS: diphenhydrAMINE HCL 25 MG CAP PO PRN ×2 (16:26→21:09)
[2017-09-20] MEDS: LORazepam 2 MG/ML VIAL IV PUSH PRN ×2 (16:27→23:51)
[2017-09-20] MEDS: ACETAMINOPHEN 325 MG TAB PO PRN ×2 (16:27→21:10)
[2017-09-20] MEDS: DOCUSATE SODIUM 50 MG/SENNA 8.6 MG TAB PO SCH (21:00)
[2017-09-20] MEDS: ATORVASTATIN 40 MG TAB PO SCH (21:00)
[2017-09-21] VITALS (9 sets, daily range): BP systolic 105–136; BP diastolic 65–86; PULSE 71–121; RESP 16–18; TEMP 97.9–98.5; O2SAT 91–99
[2017-09-21] MEDS: diphenhydrAMINE HCL 25 MG CAP PO PRN ×2 (02:06→13:14)
[2017-09-21] MEDS: ACETAMINOPHEN 325 MG TAB PO PRN ×2 (02:07→13:15)
[2017-09-21] MEDS: RESP: ALBUTEROL 2.5 MG/IPRATROPIUM 0.5 MG NEB (SCH) NEB ×3 (04:47→21:12)
[2017-09-21 07:13] LABS: HEMATOCRIT 28.1 % (35.0-46.0); HEMOGLOBIN 9.4 GM/DL (11.6-15.3); MEAN CELL VOLUME 93.3 FL (80.0-100.0); MEAN CORPUSCULAR HEMOGLOBIN 31.2 PG (27.0-34.0); MEAN CORPUSCULAR HGB CONC 33.4 % (32.0-36.0); PLATELET COUNT 20 TH/MM3 (150-450); RED BLOOD COUNT 3.01 MIL/MM3 (4.00-5.30); RED CELL DISTRIBUTION WIDTH 21.4 % (11.6-17.2); WHITE BLOOD COUNT 19.3 TH/MM3 (4.0-11.0)
[2017-09-21 07:27] LABS: BICARBONATE 25.7 MEQ/L (21.0-32.0); CALCIUM 7.7 MG/DL (8.5-10.1); CREATININE 0.83 MG/DL (0.50-1.00)
--- NOTE | 2017-09-21 07:51 | MB ---
cc: NICA HARMON MD DATE OF CONSULTATION 09/20/2017 DATE OF 1950. Time of consultation is 05:30 p.m. REASON FOR CONSULTATION Acute myeloid leukemia. CHIEF COMPLAINT Ms. Richard reports having worsening nausea, vomiting and constipation. She also reports ongoing weight loss and fatigue. TREATMENT HISTORY TO DATE The patient is status post systemic therapy with Dacogen, she has not had Dacogen in well over two months. HISTORY OF PRESENT ILLNESS Ms. Richard is a very pleasant 67-year-old female who is well-known to me from my outpatient practice and from previous inpatient hospitalizations. Ms. 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 Based on bone marrow biopsy findings, she was found to have a background of myelodysplasia. She was a poor candidate for intense systemic chemotherapy with 7+3 due to her advanced COPD and at the time A. Fib with RVR. She was therefore treated with Dacogen and responded quite well to this treatment with significant reduction in circulating leukemic blasts. Following that, she received two additional outpatient doses of Dacogen for a total of three. Over the past 2-1/2 months, she has had a series of hospitalizations (two at [facility] and one at [facility]) for symptoms ranging from a anal fissures to nausea and vomiting. She comes into the hospital at this time with complaints of nausea, vomiting, abdominal pain, constipation and inability to hold down solids and liquids. Noted on her blood work was an elevated WBC count at 20.5 with an absolute neutrophil count 0.8, 71% circulating blasts were noted. Her hemoglobin was 9.9 gm/dl at presentation with a platelet count of 27. It appears her leukemia is resurgent. The oncology service has been asked to see her for further workup and management. PAST MEDICAL HISTORY 1. 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 2. COPD 3. Atrial fibrillation 4. Anxiety 5. Chronic nausea 6. Hypothyroidism 7. History of obesity. 8. Personal history of tobaccoism. PAST SURGICAL HISTORY 1. Appendectomy 2. Bone marrow biopsy and aspiration. 3. section 4. Varicose vein surgery 5. Colonoscopy ALLERGIES PENICILLIN B CURRENT INPATIENT MEDICATIONS 1. Hydrocodone/acetaminophen 5/325 one tablet q.6 h as needed for pain. 2. DuoNebs 1 ampule every 6 hours. 3. Lipitor for 40 mcg p.o. q.h.s. 4. Benadryl 25 mg p.o. q.4 h 5. Ramya-Colace 2 tablets p.o. b.i.d. 6. Lorazepam 0.5 mg IV q.4 h 7. Metoprolol 25 mcg p.o. b.i.d. 8. Zofran 4 mg IV q.6 h 9. Ambien 5 mg p.o. q.h.s. REVIEW OF SYSTEMS A 13-point patient completed review of systems is obtained. She reports the following pertinent positives and negatives: CONSTITUTIONAL: Weakness, fatigue, lack of appetite, weight loss. HEENT: Denies headaches, blurry vision, difficulty swallowing or soreness in the throat. RESPIRATORY: Reports exertional dyspnea, reports cough, denies hemoptysis or pleuritic chest pain. CARDIOVASCULAR: Denies angina-like chest pain, PND, orthopnea. LOWER EXTREMITIES: No pretibial edema or calf tenderness. GI: Reports chronic nausea, vomiting, inability to hold down solids and liquids. She reports constipation. She denies hematochezia or melena. 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 : Denies dysuria, hematuria or incontinence. No other complaints reported. PHYSICAL EXAMINATION VITAL SIGNS: Temperature 98.2 degrees Fahrenheit, heart rate 82 beats per minute, respiratory rate 16, blood pressure 121/68, O2 sats 92% on a room air. GENERAL APPEARANCE: Ms. Richard is an elderly lady, she is laying in bed, she appears to be in no acute distress, but is pale and has lost weight since she was last seen by me about a month ago. HEENT: Head is atraumatic, normocephalic, conjunctive are pale, sclerae are anicteric, EOMI, PERRLA, oral exam no pharyngeal erythema. NECK: No palpable cervical or supraclavicular lymphadenopathy. RESPIRATORY: Good air movement bilaterally with prolonged expiratory phase. CARDIOVASCULAR: Irregular rhythm, S1-S2. No obvious murmurs, rubs or gallops. ABDOMEN: Protuberant, soft, no obvious organ enlargement, positive bowel sounds. No obvious tenderness. LOWER EXTREMITIES: No pretibial edema or calf tenderness. MUSCULOSKELETAL: Generally decreased muscle mass, tone and strength. 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 LABORATORY FINDINGS CBC dated 09/20/2017: WBC count 16.7, hemoglobin 7.8 gm/dl, hematocrit 23%, platelet count 20, absolute neutrophil count 0.3, blast percentage is 83% on manual differential. Chemistries dated 09/20/2017: Sodium 141, potassium 3, chloride 106, bicarb 24, BUN 5, creatinine 0.76, glucose 67, calcium 7.5, total bilirubin 0.7, AST 16, ALT 7, alkaline phosphatase 101, albumin 2.5. IMAGING STUDIES CT scan of the abdomen and pelvis dated 09/19/2017 performed at [facility] indicates no acute findings. Mild sigmoid diverticula. Stable sized 3.1 cm abdominal aortic aneurysm. Spleen within normal size. Liver homogenous without lesions, no dilatation of the biliary tree, no calcified gallstones noted. Bowel and mesentery indicates no evidence of dilated bowel loops of the large bowel. Oral contrast passes through to the rectum. ASSESSMENT Ms. 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 Her disease is associated with complex cytogenetics. She was initially diagnosed in late February of 2017 and has thus far been treated with three cycles of Dacogen. She is overdue for her next cycle. Unfortunately, her disease is progressive based on the rapid progression of the circulating myeloid blasts and increasing WBC count. She did, in fact, respond quite nicely to Dacogen with reduction of her blast percentage and circulation and improvement in her WBC count. She has never been able to achieve independence from supportive transfusions, however. RECOMMENDATIONS 1. Acute myeloid leukemia: Her disease is associated with complex cytogenetics. I would like to resume systemic therapy and this will be started as an inpatient. I would recommend initiation of Dacogen at 20 mg/m2 IV on days 1-7. I would like to start her as soon as a PICC line has been placed. 2. Nausea and vomiting: She will undergo a GI workup including an EGD tomorrow. I will transfuse platelets tomorrow morning so her platelet count is over 40. A PICC line will be placed tomorrow as well to help assist with chemotherapy administration. Platelet transfusion should help with placement of the PICC line as well. MD COLBY Fernandes /6:24 PM /7:26 AM
[2017-09-21] MEDS ORDERED: POTASSIUM CHLOR 10 MEQ PREMIX 100 ML IV SCH (08:15)
[2017-09-21 08:48] LABS: MAGNESIUM 1.6 MG/DL (1.5-2.5)
[2017-09-21] MEDS: METOPROLOL TARTRATE 25 MG TAB PO SCH ×2 (09:00→20:09)
[2017-09-21] MEDS: DOCUSATE SODIUM 50 MG/SENNA 8.6 MG TAB PO SCH ×2 (09:00→20:09)
[2017-09-21] MEDS: SODIUM CHLORIDE 0.9% FLUSH 10 ML FLUSH IV FLUSH SCH ×2 (09:00→21:00)
--- NOTE | 2017-09-21 10:48 | EKG ---
Date Performed: 09/21/2017 Time Performed: 08:27:50 PTAGE: 67 years EKG: Probable sinus tachycardia with borderline 1st degree A-V block Borderline ECG PREVIOUS TRACING : 08/15/2017 19.36 Compared to previous tracing, heart rate has increased. DOCTOR: Alfie Jefferson Interpretating Date/Time 09/21/2017 10:47:43
--- NOTE | 2017-09-21 10:59 | HHI.PR ---
Subjective Remarks Follow-up for AML and intractable emesis Patient continues to complain of nausea and vomiting. She said that she's not able to keep anything down. She stated that she had a small bowel movement yesterday. Patient stated that she is tired and wants to sleep. No other complaints. Denies any pain. She remains afebrile. Objective Vitals Vital Signs Date Time Temp Pulse Resp B/P (MAP) Pulse Ox O2 Delivery O2 Flow Rate FiO2 09/21/17 08:24 95 09/21/17 04:23 98.1 71 16 117/68 (84) 96 09/21/17 03:56 16 09/21/17 01:59 71 16 136/86 (103) 95 09/20/17 23:31 77 16 125/78 (94) 97 09/20/17 21:05 98.0 77 16 121/79 (93) 96 09/20/17 19:00 98.1 83 16 129/81 92 09/20/17 18:29 98.3 82 16 131/69 95 09/20/17 16:20 98.2 82 16 121/68 (85) 92 09/20/17 12:33 98.2 79 16 116/79 (91) 93 I/O 09/20/17 09/20/17 09/20/17 09/21/17 09/21/17 09/21/17 07:00 15:00 23:00 07:00 15:00 23:00 Intake Total 150 ml 1033 ml 743 ml Balance 150 ml 1033 ml 743 ml Intake Oral 150 ml 240 ml IV Total 1033 ml 503 ml # Voids 2 3 2 # Bowel Movements 0 Result Diagram: 09/21/1728 09/21/17 0628 Objective Remarks GENERAL: in NAD who was found sleeping. CARDIOVASCULAR: Regular rate and rhythm without murmurs, gallops, or rubs. RESPIRATORY: Breath sounds equal bilaterally. No accessory muscle use. GASTROINTESTINAL: Abdomen soft, non-tender, nondistended. MUSCULOSKELETAL: No cyanosis, or edema. BACK: Nontender without obvious deformity. No CVA tenderness. Medications and IVs Current Medications Sodium Chloride 1,000 ml @ 2,000 mls/hr Q30M ONCE IV Last administered on 09/19at 14:25; Start 09/19/17 at 14:00; Stop 09/19/17 at 14:29; Status DC Ondansetron HCl (Zofran Inj) 4 mg ONCE ONCE IV PUSH Last administered on at 14:26; Start 09/19/17 at 14:00; Stop 09/19/17 at 14:14; Status DC Sodium Chloride 1,000 ml @ 2,000 mls/hr Q30M ONCE IV Last administered on 09/19at 16:22; Start 09/19/17 at 16:15; Stop 09/19/17 at 16:44; Status DC Prochlorperazine Edisylate (Compazine Inj) 10 mg ONCE ONCE IV PUSH Last administered on 09/19/17at 16:22; Start 09/19/17 at 16:15; Stop 09/19/17 at 16:16 ; Status DC Diphenhydramine HCl (Benadryl Inj) 25 mg ONCE ONCE IV PUSH Last administered on 09/19/17at 16:22; Start 09/19/17 at 16:15; Stop 09/19/17 at 16:16; Status DC Potassium Bicarb/ Potassium Chloride (K-Lyte Cl Eff) 50 meq ONCE ONCE PO ; Start 09/19/17 at 16:30; Stop 09/19/17 at 16:34; Status DC Potassium Chloride 100 ml @ 50 mls/hr Q2H IV Last administered on 09/20/17at 09 :27; Start 09/19/17 at 16:30; Stop 09/19/17 at 20:29; Status DC Calcium Gluconate (Calcium Gluconate Inj) 1 gm ONCE ONCE IV PUSH ; Start at 16:30; Stop 09/19/17 at 16:31; Status UNV Sodium Chloride (NS Flush) 2 ml UNSCH PRN IV FLUSH FLUSH AFTER USING IV ACCESS ; Start 09/19/17 at 16:30 Sodium Chloride (NS Flush) 2 ml BID IV FLUSH ; Start 09/19/17 at 21:00 Ondansetron HCl (Zofran Inj) 4 mg Q6H PRN IVP NAUSEA OR VOMITING Last administered on 09/20/17at 12:26; Start 09/19/17 at 16:30 Naloxone HCl (Narcan Inj) 0.4 mg UNSCH PRN IV PUSH SEE LABEL COMMENTS; Start at 16:30 Dextrose (D50w (Vial) Inj) 50 ml ONCE ONCE IV PUSH Last administered on at 17:05; Start 09/19/17 at 16:30; Stop 09/19/17 at 16:32; Status DC Albuterol/ Ipratropium (Duoneb Neb) 1 ampule Q6HR NEB NEB Last administered on 09/19/17at 20:26; Start 09/19/17 at 22:00 Albuterol/ Ipratropium (Duoneb Neb) 1 ampule Q2HR NEB PRN NEB WHEEZING; Start 09/19/17 at 16:30 Calcium Gluconate 1 gm/Sodium Chloride 110 ml @ 110 mls/hr ONCE ONCE IV Last administered on 09/19/17at 17:48; Start 09/19/17 at 17:00; Stop 09/19/17 at 17:59 ; Status DC Atorvastatin Calcium (Lipitor) 40 mg HS PO ; Start 09/19/17 at 21:00 Acetaminophen/ Hydrocodone Bitart ([place] 5-325 Mg) 1 tab Q6H PRN PO BREAKTHROUGH PAIN; Start 09/19/17 at 17:15 Metoprolol Tartrate (Lopressor) 25 mg BID PO Last administered on 09/20/17at 23: 51; Start 09/19/17 at 21:00 Diatrizoate Meglum/ Diatrizoate Sod ( Gastroview Liq) 18 ml ONCE ONCE PO ; Start 09/19/17 at 17:02; Stop 09/19/17 at 17:18; Status DC Potassium Chloride (KCl) 40 meq ONCE ONCE PO ; Start 09/19/17 at 20:30; Stop at 20:45; Status DC Enoxaparin Sodium (Lovenox Inj) 40 mg Q24H SQ Last administered on 09/20/17at 09 :23; Start 09/20/17 at 09:00; Stop 09/20/17 at 13:24; Status DC Iohexol (Omnipaque 350 Inj) 70 ml STK-MED ONCE IVCONTRAST Last administered on 09/19/17at 23:50; Start 09/19/17 at 23:50; Stop 09/19/17 at 23:51; Status DC Lorazepam (Ativan Inj) 0.5 mg ONCE ONCE IV PUSH Last administered on at 01:37; Start 09/20/17 at 01:30; Stop 09/20/17 at 01:31; Status DC Potassium Chloride 100 ml @ As Directed STK-MED ONCE .ROUTE ; Start 09/20/17 at 09:27; Stop 09/20/17 at 09:28; Status DC Zolpidem Tartrate (Ambien) 5 mg HS PRN PO insomnia Last administered on at 23:51; Start 09/20/17 at 11:45 Senna/Docusate Sodium (Ramya-Colace) 2 tab BID PO ; Start 09/20/17 at 21:00 Polyethylene Glycol (Miralax) 17 gm ONCE ONCE PO ; Start 09/20/17 at 11:45; Stop 09/20/17 at 11:46; Status DC Sodium Chloride 250 ml @ 15 mls/hr ONCE ONCE IV Last administered on at 18:30; Start 09/20/17 at 13:30; Stop 09/21/17 at 06:09; Status DC Acetaminophen (Tylenol) 650 mg Q4H PRN PO SEE LABEL COMMENTS Last administered on 09/20/17at 21:10; Start 09/20/17 at 13:30; Stop 09/20/17 at 21:20; Status DC Diphenhydramine HCl (Benadryl) 25 mg Q4H PRN PO SEE LABEL COMMENTS Last administered on 09/20/17at 21:09; Start 09/20/17 at 13:30; Stop 09/20/17 at 21:20 ; Status DC Lorazepam (Ativan Inj) 0.5 mg Q4H PRN IV PUSH anxiety Last administered on 09/20at 23:51; Start 09/20/17 at 13:30 Sodium Chloride 250 ml @ 15 mls/hr ONCE ONCE IV ; Start 09/20/17 at 18:30; Stop 09/21/17 at 11:09 Acetaminophen (Tylenol) 650 mg Q4H PRN PO SEE LABEL COMMENTS Last administered on 09/21/17at 02:07; Start 09/20/17 at 18:30 Diphenhydramine HCl (Benadryl) 25 mg Q4H PRN PO SEE LABEL COMMENTS Last administered on 09/21/17at 02:06; Start 09/20/17 at 18:30 Potassium Chloride 100 ml @ 100 mls/hr Q1H IV ; Start 09/21/17 at 08:15; Stop 09/21/17 at 11:14 A/P Assessment and Plan 67-year-old female admitted due to intractable emesis Intractable emesis -Occurred 2 months ago after chemotherapy. -Patient was recently hospitalized in [place] and was on multiple anti-medics medications with no relief. She returned to the hospital since the symptoms are not resolved. -GI consulted appreciate recommendations. Patient scheduled for EGD today. Per oncologist she will be transfused before the procedures done. AML -Appreciate oncologist recommendation. -Patient will have a PICC placement and then be treated with initiation of Dacogen at 20 mg/m2 IV on days 1-7. Hypertension/COPD/atrial fibrillation/hypothyroidism/seizure disorder - Continue with home medication. Anemia -Hemoglobin decreased from 9-7.6. -No active bleeding. -May be hemoconcentrated. -Oncologist consulted. Will transfuse if hemoglobin less than 7 or symptomatic. Constipation -Small bowel movement yesterday. Continue with stool softener and will give a dose of lactulose. DVT prophylaxis with Lovenox. Discharge Planning Patient scheduled for EGD and PICC line placement today. Cecilia Domingo MD Sep 21, 2017 10:58
[2017-09-21] MEDS ORDERED: LACTULOSE SYRUP 20 GM/30 ML CUP PO PRN (11:00)
--- NOTE | 2017-09-21 11:52 | PD.ONC.PN ---
Subjective Subjective Remarks Patient seen and examined, vital signs, labs and medications reviewed. Subjectively; patient reports her nausea is improved, she tells me she could "eat anything put in front of her ". She did have a small bowel movement yesterday as well. 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 Overnight, the patient's only peripheral IV site had to be removed due to malfunction and she therefore at this time has no IV access. The vascular access team is unable to place a bedside PICC line due to her platelet counts being low. They have requested I refer her to interventional radiology for PICC line placement. Objective Data Date Time Temp Pulse Resp B/P (MAP) Pulse Ox O2 Delivery O2 Flow Rate FiO2 09/21/17 11:10 98.4 119 16 121/69 (86) 91 09/21/17 09:40 98.2 117 16 108/70 (83) 97 09/21/17 08:24 95 09/21/17 04:23 98.1 71 16 117/68 (84) 96 09/21/17 03:56 16 09/21/17 01:59 71 16 136/86 (103) 95 09/20/17 23:31 77 16 125/78 (94) 97 09/20/17 21:05 98.0 77 16 121/79 (93) 96 09/20/17 19:00 98.1 83 16 129/81 92 09/20/17 18:29 98.3 82 16 131/69 95 09/20/17 16:20 98.2 82 16 121/68 (85) 92 09/20/17 12:33 98.2 79 16 116/79 (91) 93 Result Diagram: 09/21/17 0628 09/21/1728 Laboratory Results Laboratory Tests Test 09/21/17 06:28 White Blood Count 19.3 TH/MM3 Red Blood Count 3.01 MIL/MM3 Hemoglobin 9.4 GM/DL Hematocrit 28.1 % Mean Corpuscular Volume 93.3 FL Mean Corpuscular Hemoglobin 31.2 PG Mean Corpuscular Hemoglobin Concent 33.4 % Red Cell Distribution Width 21.4 % Platelet Count 20 TH/MM3 Mean Platelet Volume 9.0 FL Activated Partial Thromboplast Time 26.9 SEC Blood Urea Nitrogen 4 MG/DL Creatinine 0.83 MG/DL Random Glucose 64 MG/DL Calcium Level 7.7 MG/DL Magnesium Level 1.6 MG/DL Sodium Level 138 MEQ/L Potassium Level 3.1 MEQ/L Chloride Level 103 MEQ/L Carbon Dioxide Level 25.7 MEQ/L Anion Gap 9 MEQ/L Estimat Glomerular Filtration Rate 68 ML/MIN Culture Results Microbiology Date/Time Source Procedure Growth Status 09/20/17 05:53 Blood Peripheral Aerobic Blood Culture - Preliminary NO GROWTH IN 1 DAY Resulted 09/20/17 05:53 Blood Peripheral Anaerobic Blood Culture - Preliminary NO GROWTH IN 1 DAY Resulted 09/19/17 17:37 Blood Peripheral Aerobic Blood Culture - Preliminary NO GROWTH IN 2 DAYS Resulted 09/19/17 17:37 Blood Peripheral Anaerobic Blood Culture - Preliminary NO GROWTH IN 2 DAYS Resulted Administered Medications Medications (Trade) Dose Ordered Sig/Tylor Route PRN Reason Start Time Stop Time Status Last Admin Dose Admin Ondansetron HCl (Zofran Inj) 4 mg Q6H PRN IVP NAUSEA OR VOMITING 09/19/17 16:30 09/20/17 12:26 Albuterol/ Ipratropium (Duoneb Neb) 1 ampule Q6HR NEB NEB 09/19/17 22:00 09/19/17 20:26 Metoprolol Tartrate (Lopressor) 25 mg BID PO 09/19/17 21:00 09/20/17 23:51 Zolpidem Tartrate (Ambien) 5 mg HS PRN PO insomnia 09/20/17 11:45 09/20/17 23:51 Lorazepam (Ativan Inj) 0.5 mg Q4H PRN IV PUSH anxiety 09/20/17 13:30 09/20/17 23:51 Acetaminophen (Tylenol) 650 mg Q4H PRN PO SEE LABEL COMMENTS 09/20/17 18:30 09/21/17 02:07 Diphenhydramine HCl (Benadryl) 25 mg Q4H PRN PO SEE LABEL COMMENTS 09/20/17 18:30 09/21/17 02:06 Objective Remarks GENERAL APPEARANCE: Ms. Richard is an elderly lady, she is laying in bed, she appears to be in no acute distress, but is pale and has lost weight since she was last seen by me about a month ago. HEENT: Head is atraumatic, normocephalic, conjunctive are pale, sclerae are anicteric, EOMI, PERRLA, oral exam no pharyngeal erythema. NECK: No palpable cervical or supraclavicular lymphadenopathy. RESPIRATORY: Good air movement bilaterally with prolonged expiratory phase. CARDIOVASCULAR: Irregular rhythm, S1-S2. No obvious murmurs, rubs or gallops. ABDOMEN: Protuberant, soft, no obvious organ enlargement, positive bowel sounds. No obvious tenderness. LOWER EXTREMITIES: No pretibial edema or calf tenderness. MUSCULOSKELETAL: Generally decreased muscle mass, tone and strength. [employer]: No focal sensory or motor deficits. Assessment/Plan Assessment Ms. 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 Her disease is associated with complex cytogenetics. She was initially diagnosed in late February of 2017 and has thus far been treated with three cycles of Dacogen. She is overdue for her next cycle. Unfortunately, her disease is progressive based on the rapid progression of the circulating myeloid blasts and increasing WBC count. She did, in fact, respond quite nicely to Dacogen with reduction of her blast percentage and circulation and improvement in her WBC count. She has never been able to achieve independence from supportive transfusions. Plan 1. Request interventional radiology to place PICC line. Following that she will receive platelet transfusions and then undergo EGD. The EGD is required to evaluate the etiology of her nausea and vomiting. 2. Acute myeloid leukemia: I had a long discussion with the patient and her son at bedside today. I explained that therapeutic interventions going forward are palliative in nature. I have advised resuming Dacogen as an inpatient after she undergoes her EGD. Dacogen orders have been written and placed in the chart , she will be dosed at 20 mg meter squared day 1-5. I emphasized the need for her to remain on schedule to maintain the appropriate and effective treatment dose density. Her present progression of disease in my opinion is due to the delay in subsequent chemotherapy cycles as opposed to treatment failure in the true sense. Roberto Yarbrough MD Sep 21, 2017 11:52
[2017-09-21] MEDS ORDERED: PROPOFOL 200 MG/20 ML AMP IV ONE (12:00)
[2017-09-21] MEDS ORDERED: LIDOCAINE HCL 1% PF 5 ML SYRINGE OTHER ONE (12:00)
--- NOTE | 2017-09-21 12:36 | PD.RAD ---
Radiology Post PICC Prog Note Pre Procedure Diagnosis: (1) AML (acute myeloid leukemia) Post Procedure Diagnosis: (1) AML (acute myeloid leukemia) Procedure: Right PICC line placement Procedure Date: Sep 21, 2017 Supervising Radiologist Roger Fowler Proceduralist/Assist: Patty Falk, RT(R), Mich Daley RT(R)() Device Side: Right Turkmen: 4 single lumen cm: 41 Catheter: Power PICC Plan of Activity Patient to Unit: Critical Care Patient Condition: Good PICC line can be used immediately Roger Fowler MD Sep 21, 2017 12:36
[2017-09-21] MEDS ORDERED: SODIUM CHLORIDE 0.9% FLUSH 10 ML FLUSH IVF PRN ×2 (12:45)
--- NOTE | 2017-09-21 16:09 | PD.PROCEDR ---
GI Procedure PROCEDURE PERFORMED Upper endoscopy with biopsy INDICATION FOR PROCEDURE Significant nausea occasional vomiting mild abdominal discomfort PROCEDURE: The procedure, risks and benefits were discussed with Ms. Richard and informed consent was obtained. Anesthesia sedated her with Diprivan. She was placed in the left lateral decubitus position. EGD: The Pentax videoscope was introduced through the oropharynx and advanced to the second portion of the duodenum under direct visualization. Retroflexion was performed in the stomach. ESTIMATED BLOOD LOSS: None SPECIMENS REMOVED: None patient has low platelet COMPLICATIONS: None IMPRESSION: Mild esophagitis Severe gastritis mostly in the body of the stomach Severe duodenitis Biopsy was not done because of low platelets Nausea and vomiting could be related to the above but also could be related to chemotherapy and her underlying leukemia PLAN: Protonix 40 mg daily Antiemetic H. pylori in the stool to rule out H. pylori Diet as tolerated Palak Calderón MD Sep 21, 2017 16:09
--- NOTE | 2017-09-21 16:11 | HHI.GIFU ---
Subjective Remarks Patient lying in bed, seems to be comfortable, still having some nausea, received platelet today in anticipation of upper endoscopy Objective Vitals I&O Vital Signs Date Time Temp Pulse Resp B/P (MAP) Pulse Ox O2 Delivery O2 Flow Rate FiO2 09/21/17 14:28 98.5 121 16 113/75 96 09/21/17 14:06 98.5 85 16 105/65 96 09/21/17 11:10 98.4 119 16 121/69 (86) 91 09/21/17 09:40 98.2 117 16 108/70 (83) 97 09/21/17 08:24 95 09/21/17 04:23 98.1 71 16 117/68 (84) 96 09/21/17 03:56 16 09/21/17 01:59 71 16 136/86 (103) 95 09/20/17 23:31 77 16 125/78 (94) 97 09/20/17 21:05 98.0 77 16 121/79 (93) 96 09/20/17 19:00 98.1 83 16 129/81 92 09/20/17 18:29 98.3 82 16 131/69 95 09/20/17 16:20 98.2 82 16 121/68 (85) 92 I/O 09/20/17 09/20/17 09/20/17 09/21/17 09/21/17 09/21/17 07:00 15:00 23:00 07:00 15:00 23:00 Intake Total 150 ml 1033 ml 743 ml 287 ml Balance 150 ml 1033 ml 743 ml 287 ml Intake Oral 150 ml 240 ml IV Total 1033 ml 503 ml Platelets 287 ml # Voids 2 3 2 # Bowel Movements 0 Laboratory Laboratory Tests Test 09/21/17 06:28 White Blood Count 19.3 Red Blood Count 3.01 Hemoglobin 9.4 Hematocrit 28.1 Mean Corpuscular Volume 93.3 Mean Corpuscular Hemoglobin 31.2 Mean Corpuscular Hemoglobin Concent 33.4 Red Cell Distribution Width 21.4 Platelet Count 20 Mean Platelet Volume 9.0 Activated Partial Thromboplast Time 26.9 Blood Urea Nitrogen 4 Creatinine 0.83 Random Glucose 64 Calcium Level 7.7 Magnesium Level 1.6 Sodium Level 138 Potassium Level 3.1 Chloride Level 103 Carbon Dioxide Level 25.7 Anion Gap 9 Estimat Glomerular Filtration Rate 68 Date/Time Source Procedure Growth Status 09/20/17 05:53 Blood Peripheral Aerobic Blood Culture - Preliminary NO GROWTH IN 1 DAY Resulted 09/20/17 05:53 Blood Peripheral Anaerobic Blood Culture - Preliminary NO GROWTH IN 1 DAY Resulted Physical Exam HEENT: Pupils round and reactive to light; normocephalic; atraumatic; no jaundice. Throat is clear. NECK: Neck is supple, no JVD, no lymphadenopathy. CHEST: Chest is clear to auscultation and percussion. CARDIAC: Regular rate and rhythm with no murmur gallop or rubs. ABDOMEN: Soft, nondistended, nontender; no hepatosplenomegaly; bowel sounds are present in all four quadrants. EXTREMITIES: No clubbing, cyanosis, or edema. SKIN: Normal; no rash; no jaundice. [employer] ADVIS[employer]: No focal deficits; alert and oriented times three. Assessment and Plan Plan Patient is doing okay less nausea no vomiting this morning she got platelet to have leukemia with chronic nausea and vomiting and weight loss she had upper endoscopy done IMPRESSION: Mild esophagitis Severe gastritis mostly in the body of the stomach Severe duodenitis Biopsy was not done because of low platelets Nausea and vomiting could be related to the above but also could be related to chemotherapy and her underlying leukemia PLAN: Protonix 40 mg daily Antiemetic H. pylori in the stool to rule out H. pylori Diet as tolerated If symptom persist patient will need gastric emptying study Palak Calderón MD Sep 21, 2017 16:11
--- NOTE | 2017-09-21 16:41 | RADRPT ---
EXAM DATE/TIME: 09/21/2017 12:57 [facility] COMPARISON: No previous studies available for comparison. INDICATIONS : Patient with acute myeloid leukemia in need of PICC line placement MEDICAL HISTORY : COPD, A-Fib, Hypothyroidism, Brain aneurysm/angioma SURGICAL HISTORY : Bone marrow biopsy, Colonoscopy, Back surgery ENCOUNTER: Initial ACUITY: 4-6 months PAIN SCORE: 0/10 FLUORO TIME: 0.55 minutes IMAGE SERIES: 1 ACCESS: Right brachial vein MEDICATION(S): 1.) 200 units Heparin IV DEVICE(S): 1.) 4 Japanese single lumen 41 cm Xcela Power PICC PROCEDURE : 1. Ultrasound guidance for venous catheterization. 2. Fluoroscopic guidance. 3. Ultrasound & fluoroscopic guided central venous Power PICC line placement. The risks, benefits and alternatives to the procedure were explained and verbal and written consent w as obtained. The site was prepped in sterile fashion. Full sterile technique was used, including ca p, mask, sterile gloves and gown and a large sterile sheet. Hand hygiene and 2% chlorhexidine prep w as utilized per protocol for cutaneous antisepsis with appropriate dry time for site. Sterile gel a nd sterile probe cover were utilized for ultrasound guidance. The skin and subcutaneous tissues wer e infiltrated with local anesthetic solution. Under direct ultrasound guidance, a suitable vein was accessed and a measuring guidewire was introduc ed and positioned in the central venous system. The ultrasound images depicting access guidance were saved and stored to PACS for permanent record. A Power Injectable PICC line was cut to prescribed length and introduced, positioned with tip at the cavoatrial junction level. The line was flushed and secured per protocol. CONCLUSION: 1. Uncomplicated central venous Power PICC line placement. 2. The PICC line can be used immediately. Roger Fowler MD on September 21, 2017 at 16:38 Board Certified Radiologist. This report was verified electronically.
[2017-09-21] MEDS: POTASSIUM CHLOR 10 MEQ PREMIX 100 ML IV SCH ×3 (17:25→23:21)
[2017-09-21] MEDS: ACETAMINOPHEN/HYDROcodone 325 MG/5 MG TAB PO PRN (17:36)
[2017-09-21] MEDS: GRANISETRON HCL 1 MG/ML VIAL IV PUSH SCH (18:35)
[2017-09-21] MEDS: ATORVASTATIN 40 MG TAB PO SCH (20:09)
[2017-09-21] MEDS: DECITABINE IV SCH (20:10)
[2017-09-21] MEDS: SODIUM CHLOR 0.9% IV SCH (20:10)
[2017-09-21] MEDS: SODIUM CHLOR 0.9% 250 ML INJ 250 ML IV SCH (20:12)
[2017-09-21] MEDS: LORazepam 2 MG/ML VIAL IV PUSH PRN (20:34)
[2017-09-22] VITALS (14 sets, daily range): BP systolic 83–114; BP diastolic 50–70; PULSE 78–130; RESP 15–18; TEMP 97.8–98.4; O2SAT 64–100
[2017-09-22] MEDS: RESP: ALBUTEROL 2.5 MG/IPRATROPIUM 0.5 MG NEB (SCH) NEB ×4 (04:28→21:23)
[2017-09-22 07:11] LABS: HEMATOCRIT 27.5 % (35.0-46.0); HEMOGLOBIN 9.3 GM/DL (11.6-15.3); MEAN CELL VOLUME 93.3 FL (80.0-100.0); MEAN CORPUSCULAR HEMOGLOBIN 31.4 PG (27.0-34.0); MEAN CORPUSCULAR HGB CONC 33.7 % (32.0-36.0); MEAN PLATELET VOLUME 8.6 FL (7.0-11.0); PLATELET COUNT 30 TH/MM3 (150-450); RED BLOOD COUNT 2.95 MIL/MM3 (4.00-5.30); RED CELL DISTRIBUTION WIDTH 21.6 % (11.6-17.2); WHITE BLOOD COUNT 17.6 TH/MM3 (4.0-11.0)
[2017-09-22 07:59] LABS: BICARBONATE 25.2 MEQ/L (21.0-32.0); CALCIUM 7.2 MG/DL (8.5-10.1); CREATININE 0.68 MG/DL (0.50-1.00)
[2017-09-22 08:11] LABS: CALCIUM-PROTEIN CORRECTED 8.2 MG/DL (8.5-10.1); TOTAL PROTEIN 5.3 GM/DL (6.4-8.2)
[2017-09-22 08:12] LABS: BLASTS 90 % (0-0); LYMPHOCYTES 9 % (9-44); NEUTROPHIL # MANUAL DIFF 0.2 TH/MM3 (1.8-7.7); POLYS (SEG NEUTROPHILS) 1 % (16-70)
[2017-09-22 08:13] LABS: OVALOCYTES 1+ (NORMAL)
[2017-09-22 08:14] LABS: TEARDROP RBCS 1+ (NORMAL)
[2017-09-22] MEDS: METOPROLOL TARTRATE 25 MG TAB PO SCH ×2 (09:00→21:00)
[2017-09-22] MEDS: DOCUSATE SODIUM 50 MG/SENNA 8.6 MG TAB PO SCH ×2 (09:00→21:00)
[2017-09-22] MEDS: SODIUM CHLORIDE 0.9% FLUSH 10 ML FLUSH IV FLUSH SCH ×2 (09:38→20:52)
[2017-09-22] MEDS: ONDANSETRON HCL 4 MG/2 ML VIAL IVP PRN ×2 (09:38→15:17)
[2017-09-22] MEDS: PANTOPRAZOLE SODIUM 40 MG VIAL IV PUSH SCH (09:38)
[2017-09-22] MEDS: SODIUM CHLORIDE 0.9% FLUSH 10 ML FLUSH IVF SCH (09:39)
--- NOTE | 2017-09-22 10:08 | HHI.PR ---
Subjective Remarks Follow-up for intractable emesis and AML Patient continues to feel nauseous. She stated that she has not had a bowel movement yet. Denies abdominal pain. Objective Vitals Vital Signs Date Time Temp Pulse Resp B/P (MAP) Pulse Ox O2 Delivery O2 Flow Rate FiO2 09/22/17 05:00 98.2 115 18 105/69 (81) 64 09/22/17 04:08 115 09/22/17 01:34 117 09/22/17 00:44 98.0 109 15 98/67 (77) 93 09/21/17 20:28 97.9 74 16 126/66 (86) 95 09/21/17 16:43 98.3 79 18 123/85 (98) 99 09/21/17 16:07 97.6 122 18 105/70 (82) 95 09/21/17 14:28 98.5 121 16 113/75 96 09/21/17 14:06 98.5 85 16 105/65 96 09/21/17 11:10 98.4 119 16 121/69 (86) 91 I/O 09/21/17 09/21/17 09/21/17 09/22/17 09/22/17 09/22/17 07:00 15:00 23:00 07:00 15:00 23:00 Intake Total 287 ml 200 ml 480 ml Output Total 150 ml Balance 287 ml 200 ml 330 ml Intake Oral 480 ml Platelets 287 ml Other 200 ml Output Urine Total 150 ml # Voids 2 2 Result Diagram: 09/22/17 0640 09/22/17 0640 Objective Remarks GENERAL: in NAD but looks uncomfortable due to feeling nauseous. CARDIOVASCULAR: Regular rate and rhythm without murmurs, gallops, or rubs. RESPIRATORY: Breath sounds equal bilaterally. No accessory muscle use. GASTROINTESTINAL: Abdomen soft, non-tender, nondistended. MUSCULOSKELETAL: No cyanosis, or edema. BACK: Nontender without obvious deformity. No CVA tenderness. Medications and IVs Current Medications Sodium Chloride 1,000 ml @ 2,000 mls/hr Q30M ONCE IV Last administered on 09/19at 14:25; Start 09/19/17 at 14:00; Stop 09/19/17 at 14:29; Status DC Ondansetron HCl (Zofran Inj) 4 mg ONCE ONCE IV PUSH Last administered on at 14:26; Start 09/19/17 at 14:00; Stop 09/19/17 at 14:14; Status DC Sodium Chloride 1,000 ml @ 2,000 mls/hr Q30M ONCE IV Last administered on 09/19at 16:22; Start 09/19/17 at 16:15; Stop 09/19/17 at 16:44; Status DC Prochlorperazine Edisylate (Compazine Inj) 10 mg ONCE ONCE IV PUSH Last administered on 09/19/17at 16:22; Start 09/19/17 at 16:15; Stop 09/19/17 at 16:16 ; Status DC Diphenhydramine HCl (Benadryl Inj) 25 mg ONCE ONCE IV PUSH Last administered on 09/19/17at 16:22; Start 09/19/17 at 16:15; Stop 09/19/17 at 16:16; Status DC Potassium Bicarb/ Potassium Chloride (K-Lyte Cl Eff) 50 meq ONCE ONCE PO ; Start 09/19/17 at 16:30; Stop 09/19/17 at 16:34; Status DC Potassium Chloride 100 ml @ 50 mls/hr Q2H IV Last administered on 09/20/17at 09 :27; Start 09/19/17 at 16:30; Stop 09/19/17 at 20:29; Status DC Calcium Gluconate (Calcium Gluconate Inj) 1 gm ONCE ONCE IV PUSH ; Start at 16:30; Stop 09/19/17 at 16:31; Status UNV Sodium Chloride (NS Flush) 2 ml UNSCH PRN IV FLUSH FLUSH AFTER USING IV ACCESS ; Start 09/19/17 at 16:30 Sodium Chloride (NS Flush) 2 ml BID IV FLUSH Last administered on 09/22/17at 09: 38; Start 09/19/17 at 21:00 Ondansetron HCl (Zofran Inj) 4 mg Q6H PRN IVP NAUSEA OR VOMITING Last administered on 09/22/17at 09:38; Start 09/19/17 at 16:30 Naloxone HCl (Narcan Inj) 0.4 mg UNSCH PRN IV PUSH SEE LABEL COMMENTS; Start at 16:30 Dextrose (D50w (Vial) Inj) 50 ml ONCE ONCE IV PUSH Last administered on at 17:05; Start 09/19/17 at 16:30; Stop 09/19/17 at 16:32; Status DC Albuterol/ Ipratropium (Duoneb Neb) 1 ampule Q6HR NEB NEB Last administered on 09/19/17at 20:26; Start 09/19/17 at 22:00 Albuterol/ Ipratropium (Duoneb Neb) 1 ampule Q2HR NEB PRN NEB WHEEZING; Start 09/19/17 at 16:30 Calcium Gluconate 1 gm/Sodium Chloride 110 ml @ 110 mls/hr ONCE ONCE IV Last administered on 09/19/17at 17:48; Start 09/19/17 at 17:00; Stop 09/19/17 at 17:59 ; Status DC Atorvastatin Calcium (Lipitor) 40 mg HS PO Last administered on 09/21/17at 20:09 ; Start 09/19/17 at 21:00 Acetaminophen/ Hydrocodone Bitart ([place] 5-325 Mg) 1 tab Q6H PRN PO BREAKTHROUGH PAIN Last administered on 09/21/17at 17:36; Start 09/19/17 at 17:15 Metoprolol Tartrate (Lopressor) 25 mg BID PO Last administered on 09/21/17at 20: 09; Start 09/19/17 at 21:00 Diatrizoate Meglum/ Diatrizoate Sod ( Gastroview Liq) 18 ml ONCE ONCE PO ; Start 09/19/17 at 17:02; Stop 09/19/17 at 17:18; Status DC Potassium Chloride (KCl) 40 meq ONCE ONCE PO ; Start 09/19/17 at 20:30; Stop at 20:45; Status DC Enoxaparin Sodium (Lovenox Inj) 40 mg Q24H SQ Last administered on 09/20/17at 09 :23; Start 09/20/17 at 09:00; Stop 09/20/17 at 13:24; Status DC Iohexol (Omnipaque 350 Inj) 70 ml STK-MED ONCE IVCONTRAST Last administered on 09/19/17at 23:50; Start 09/19/17 at 23:50; Stop 09/19/17 at 23:51; Status DC Lorazepam (Ativan Inj) 0.5 mg ONCE ONCE IV PUSH Last administered on at 01:37; Start 09/20/17 at 01:30; Stop 09/20/17 at 01:31; Status DC Potassium Chloride 100 ml @ As Directed STK-MED ONCE .ROUTE ; Start 09/20/17 at 09:27; Stop 09/20/17 at 09:28; Status DC Zolpidem Tartrate (Ambien) 5 mg HS PRN PO insomnia Last administered on at 23:51; Start 09/20/17 at 11:45 Senna/Docusate Sodium (Ramya-Colace) 2 tab BID PO Last administered on at 20:09; Start 09/20/17 at 21:00 Polyethylene Glycol (Miralax) 17 gm ONCE ONCE PO ; Start 09/20/17 at 11:45; Stop 09/20/17 at 11:46; Status DC Sodium Chloride 250 ml @ 15 mls/hr ONCE ONCE IV Last administered on at 18:30; Start 09/20/17 at 13:30; Stop 09/21/17 at 06:09; Status DC Acetaminophen (Tylenol) 650 mg Q4H PRN PO SEE LABEL COMMENTS Last administered on 09/20/17at 21:10; Start 09/20/17 at 13:30; Stop 09/20/17 at 21:20; Status DC Diphenhydramine HCl (Benadryl) 25 mg Q4H PRN PO SEE LABEL COMMENTS Last administered on 09/20/17at 21:09; Start 09/20/17 at 13:30; Stop 09/20/17 at 21:20 ; Status DC Lorazepam (Ativan Inj) 0.5 mg Q4H PRN IV PUSH anxiety Last administered on 09/21at 20:34; Start 09/20/17 at 13:30 Sodium Chloride 250 ml @ 15 mls/hr ONCE ONCE IV Last administered on at 14:41; Start 09/20/17 at 18:30; Stop 09/21/17 at 11:09; Status DC Acetaminophen (Tylenol) 650 mg Q4H PRN PO SEE LABEL COMMENTS Last administered on 09/21/17at 13:15; Start 09/20/17 at 18:30; Stop 09/21/17 at 13:15; Status DC Diphenhydramine HCl (Benadryl) 25 mg Q4H PRN PO SEE LABEL COMMENTS Last administered on 09/21/17at 13:14; Start 09/20/17 at 18:30; Stop 09/21/17 at 13:15 ; Status DC Potassium Chloride 100 ml @ 100 mls/hr Q1H IV ; Start 09/21/17 at 08:15; Stop 09/21/17 at 11:14; Status DC Lactulose (Lactulose Liq) 30 ml ONCE PRN PO AFTER HER PER PROCEDURE TODAY; Start 09/21/17 at 11:00; Stop 09/21/17 at 23:59; Status DC Heparin Sodium (Porcine) (*HEPARIN CENTRAL FLUSH PERIprocedural ONLY) 500 units STK-MED ONCE IV FLUSH Last administered on 09/21/17at 11:48; Start 09/21/17 at 11:34; Stop 09/21/17 at 11:35; Status DC Sodium Chloride (NS Flush) DAILY IVF Last administered on 09/22/17at 09:39; Start 09/22/17 at 09:00 Heparin Sodium (Porcine) (Heparin Central Flush) DAILY IV FLUSH Last administered on 09/22/17at 09:38; Start 09/22/17 at 09:00 Sodium Chloride (NS Flush) UNSCH PRN IVF SEE PROTOCOL; Start 09/21/17 at 12:45 Heparin Sodium (Porcine) (Heparin Central Flush) UNSCH PRN IV FLUSH SEE PROTOCOL; Start 09/21/17 at 12:45 Sodium Chloride (NS Flush) UNSCH PRN IVF SEE PROTOCOL; Start 09/21/17 at 12:45 Sodium Chloride 250 ml @ 0 mls/hr DAILY@1800 IV Last administered on 09/21/17at 20:12; Start 09/21/17 at 18:00; Stop 09/25/17 at 18:01 Granisetron HCl (Kytril Inj) 1 mg DAILY@1730 IV PUSH Last administered on at 18:35; Start 09/21/17 at 17:30; Stop 09/25/17 at 17:31 Decitabine 36.2 mg/Sodium Chloride 250 ml @ 250 mls/hr DAILY@1800 IV Last administered on 09/21/17at 20:10; Start 09/21/17 at 18:00; Stop 09/25/17 at 18:59 Potassium Chloride 100 ml @ 100 mls/hr Q1H IV Last administered on 09/21/17at 23:21; Start 09/21/17 at 18:00; Stop 09/21/17 at 20:59; Status DC Pantoprazole Sodium (Protonix Inj) 40 mg Q24H IV PUSH Last administered on 09/22at 09:38; Start 09/22/17 at 09:00 A/P Assessment and Plan 67-year-old female admitted due to intractable emesis Intractable emesis -Occurred 2 months ago after chemotherapy. -Patient was recently hospitalized in [place] and was on multiple anti-medics medications with no relief. She returned to the hospital since the symptoms are not resolved. -EGD done on 09/21 showing severe gastritis and duodenitis. GI order stool H pylori and recommend Protonix. -Will start Protonix. AML -Appreciate oncologist recommendation. -Status post PICC placement and then be treated with initiation of Dacogen at 20 mg/m2 IV on days 1-7. Hypertension/COPD/atrial fibrillation/hypothyroidism/seizure disorder - Continue with home medication. Anemia -Hemoglobin decreased from 9-7.6. -No active bleeding. -May be hemoconcentrated. -Oncologist consulted. Will transfuse if hemoglobin less than 7 or symptomatic. Constipation -Patient on stool softener. She is unable to tolerate oral intake. We'll give an enema. DVT prophylaxis with Lovenox. Cecilia Domingo MD Sep 22, 2017 10:08
--- NOTE | 2017-09-22 10:20 | PD.ONC.PN ---
Subjective Subjective Remarks Afebrile overnight Patient reports that if she is still, she has no nausea Reports that she was unable to eat dinner last night or breakfast this morning During exam, patient was actively vomiting that was prompted by position change Objective Data Date Time Temp Pulse Resp B/P (MAP) Pulse Ox O2 Delivery O2 Flow Rate FiO2 09/22/17 05:00 98.2 115 18 105/69 (81) 64 09/22/17 04:08 115 09/22/17 01:34 117 09/22/17 00:44 98.0 109 15 98/67 (77) 93 09/21/17 20:28 97.9 74 16 126/66 (86) 95 09/21/17 16:43 98.3 79 18 123/85 (98) 99 09/21/17 16:07 97.6 122 18 105/70 (82) 95 09/21/17 14:28 98.5 121 16 113/75 96 09/21/17 14:06 98.5 85 16 105/65 96 09/21/17 11:10 98.4 119 16 121/69 (86) 91 09/22/17 09/22/17 09/22/17 07:00 15:00 23:00 Intake Total 480 ml Output Total 150 ml Balance 330 ml Result Diagram: 09/22/1740 09/22/17 0640 Laboratory Results Laboratory Tests Test 09/22/17 06:40 White Blood Count 17.6 TH/MM3 Red Blood Count 2.95 MIL/MM3 Hemoglobin 9.3 GM/DL Hematocrit 27.5 % Mean Corpuscular Volume 93.3 FL Mean Corpuscular Hemoglobin 31.4 PG Mean Corpuscular Hemoglobin Concent 33.7 % Red Cell Distribution Width 21.6 % Platelet Count 30 TH/MM3 Mean Platelet Volume 8.6 FL CBC Comment AUTO DIFF Differential Total Cells Counted 100 Neutrophils % (Manual) 1 % Lymphocytes % 9 % Neutrophils # (Manual) 0.2 TH/MM3 Differential Comment FINAL DIFF MANUAL Blastocytes 90 % Platelet Estimate LOW Platelet Morphology Comment ENLARGED Tear Drop Cells 1+ Ovalocytes 1+ Blood Urea Nitrogen 7 MG/DL Creatinine 0.68 MG/DL Random Glucose 67 MG/DL Total Protein 5.3 GM/DL Calcium Level 7.2 MG/DL Sodium Level 140 MEQ/L Potassium Level 3.4 MEQ/L Chloride Level 106 MEQ/L Carbon Dioxide Level 25.2 MEQ/L Anion Gap 9 MEQ/L Estimat Glomerular Filtration Rate 86 ML/MIN Protein Corrected Calcium 8.2 MG/DL Culture Results Microbiology Date/Time Source Procedure Growth Status 09/20/17 05:53 Blood Peripheral Aerobic Blood Culture - Preliminary NO GROWTH IN 1 DAY Resulted 09/20/17 05:53 Blood Peripheral Anaerobic Blood Culture - Preliminary NO GROWTH IN 1 DAY Resulted 09/19/17 17:37 Blood Peripheral Aerobic Blood Culture - Preliminary NO GROWTH IN 2 DAYS Resulted 09/19/17 17:37 Blood Peripheral Anaerobic Blood Culture - Preliminary NO GROWTH IN 2 DAYS Resulted Administered Medications Medications (Trade) Dose Ordered Sig/Tylor Route PRN Reason Start Time Stop Time Status Last Admin Dose Admin Sodium Chloride (NS Flush) 2 ml BID IV FLUSH 09/19/17 21:00 09/22/17 09:38 Ondansetron HCl (Zofran Inj) 4 mg Q6H PRN IVP NAUSEA OR VOMITING 09/19/17 16:30 09/22/17 09:38 Albuterol/ Ipratropium (Duoneb Neb) 1 ampule Q6HR NEB NEB 09/19/17 22:00 09/19/17 20:26 Atorvastatin Calcium (Lipitor) 40 mg HS PO 09/19/17 21:00 09/21/17 20:09 Acetaminophen/ Hydrocodone Bitart ([place] 5-325 Mg) 1 tab Q6H PRN PO BREAKTHROUGH PAIN 09/19/17 17:15 09/21/17 17:36 Metoprolol Tartrate (Lopressor) 25 mg BID PO 09/19/17 21:00 09/21/17 20:09 Zolpidem Tartrate (Ambien) 5 mg HS PRN PO insomnia 09/20/17 11:45 09/20/17 23:51 Senna/Docusate Sodium (Ramya-Colace) 2 tab BID PO 09/20/17 21:00 09/21/17 20:09 Lorazepam (Ativan Inj) 0.5 mg Q4H PRN IV PUSH anxiety 09/20/17 13:30 09/21/17 20:34 Sodium Chloride (NS Flush) DAILY IVF 09/22/17 09:00 09/22/17 09:39 Heparin Sodium (Porcine) (Heparin Central Flush) DAILY IV FLUSH 1/27/18 09:00 09/22/17 09:38 Sodium Chloride 250 ml @ 0 mls/hr DAILY@1800 IV 09/21/17 18:00 09/25/17 18:01 09/21/17 20:12 Granisetron HCl (Kytril Inj) 1 mg DAILY@1730 IV PUSH 09/21/17 17:30 09/25/17 17:31 09/21/17 18:35 Decitabine 36.2 mg/Sodium Chloride 250 ml @ 250 mls/hr DAILY@1800 IV 09/21/17 18:00 09/25/17 18:59 09/21/17 20:10 Pantoprazole Sodium (Protonix Inj) 40 mg Q24H IV PUSH 09/22/17 09:00 09/22/17 09:38 Objective Remarks GENERAL: Chronically ill-appearing older female resting in bed asleep on approach SKIN: Warm and dry. HEAD: Normocephalic. EYES: No injection or drainage. NECK: Supple, trachea midline. CARDIOVASCULAR: + S1/S2 RESPIRATORY: Breath sounds equal bilaterally. No accessory muscle use. GASTROINTESTINAL: Abdomen soft, non-tender, nondistended. EXTREMITIES: No cyanosis, or edema. MUSCULOSKELETAL: Generalized weakness NEUROLOGICAL: No obvious focal deficit. Awake, alert, and oriented x3. 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 She has had a total of 3 cycles of decitabine outpatient. Her last cycle was approximately 2 months ago. She was admitted with nausea and vomiting and was found to have circulating blasts at 71%. Plan 1. Patient had EGD yesterday that showed duodenitis. A biopsy was not taken due to thrombocytopenia. 2. The patient had a PICC line placed by interventional radiology yesterday. She had her first day of decitabine and did well with it last night. 3. Continue to monitor CBC and transfuse as necessary Attending Statement The exam, history, and the medical decision-making described in the above note were completed with the assistance of the mid-level provider. I reviewed and agree with the findings presented. I attest that I had a [id number] encounter with the patient on the same day, and personally performed and documented my assessment and findings in the medical record. complains of severe nausea and consequently not able to eat. she has received zofran and Kytril without success and will add compazine. If not successful would consider olanzapine but this can make one sleepy. abdominal exam is benign. Wendy Lopez Sep 22, 2017 10:20 Solitario Carr MD Sep 22, 2017 17:23
--- NOTE | 2017-09-22 16:46 | HHI.GIFU ---
Subjective Remarks Resting in the bed family member in room Mild nausea but no vomiting Mild abdominal tenderness, abdomen soft Objective Vitals I&O Vital Signs Date Time Temp Pulse Resp B/P (MAP) Pulse Ox O2 Delivery O2 Flow Rate FiO2 09/22/17 12:00 98.0 78 18 100/70 (80) 99 09/22/17 08:00 97.8 84 16 102/65 (77) 98 09/22/17 05:00 98.2 115 18 105/69 (81) 64 09/22/17 04:08 115 09/22/17 01:34 117 09/22/17 00:44 98.0 109 15 98/67 (77) 93 09/21/17 20:28 97.9 74 16 126/66 (86) 95 I/O 09/21/17 09/21/17 09/21/17 09/22/17 09/22/17 09/22/17 07:00 15:00 23:00 07:00 15:00 23:00 Intake Total 287 ml 200 ml 480 ml Output Total 150 ml Balance 287 ml 200 ml 330 ml Intake Oral 480 ml Platelets 287 ml Other 200 ml Output Urine Total 150 ml # Voids 2 2 Laboratory Laboratory Tests Test 09/22/17 06:40 White Blood Count 17.6 Red Blood Count 2.95 Hemoglobin 9.3 Hematocrit 27.5 Mean Corpuscular Volume 93.3 Mean Corpuscular Hemoglobin 31.4 Mean Corpuscular Hemoglobin Concent 33.7 Red Cell Distribution Width 21.6 Platelet Count 30 Mean Platelet Volume 8.6 CBC Comment AUTO DIFF Differential Total Cells Counted 100 Neutrophils % (Manual) 1 Lymphocytes % 9 Neutrophils # (Manual) 0.2 Differential Comment FINAL DIFF MANUAL Blastocytes 90 Platelet Estimate LOW Platelet Morphology Comment ENLARGED Tear Drop Cells 1+ Ovalocytes 1+ Blood Urea Nitrogen 7 Creatinine 0.68 Random Glucose 67 Total Protein 5.3 Calcium Level 7.2 Sodium Level 140 Potassium Level 3.4 Chloride Level 106 Carbon Dioxide Level 25.2 Anion Gap 9 Estimat Glomerular Filtration Rate 86 Protein Corrected Calcium 8.2 Date/Time Source Procedure Growth Status 09/20/17 05:53 Blood Peripheral Aerobic Blood Culture - Preliminary NO GROWTH IN 2 DAYS Resulted 09/20/17 05:53 Blood Peripheral Anaerobic Blood Culture - Preliminary NO GROWTH IN 2 DAYS Resulted Imaging Last Impressions PICC Line Insertion 09/21/17 0000 Signed Impressions: Service Date/Time: Thursday, September 21, 2017 12:57 - CONCLUSION: 1. Uncomplicated central venous Power PICC line placement. 2. The PICC line can be used immediately. Roger Fowler MD Chest X-Ray 09/19/17 0000 Signed Impressions: Service Date/Time: Tuesday, September 19, 2017 20:52 - CONCLUSION: 1. Minimal basilar atelectasis or scarring. Mild cardiomegaly. No effusion or pneumothorax. Rivas Tejeda MD Abdomen/Pelvis CT 09/19/17 0000 Signed Impressions: Service Date/Time: Tuesday, September 19, 2017 23:27 - CONCLUSION: 1. No acute findings. Mild sigmoid diverticula. 2. Stable size to the 3.1 cm mid abdominal aortic aneurysm. Yared Sethi MD Physical Exam HEENT: Pupils round and reactive to light; normocephalic; atraumatic; no jaundice. Oral cavity clean NECK: Neck is supple, no JVD, no lymphadenopathy. CHEST: Chest is clear to auscultation and percussion. No rhonchi CARDIAC: Regular rate and rhythm ABDOMEN: Soft, nondistended, tenderness generalized on exam; no hepatosplenomegaly; bowel sounds are present in all four quadrants. EXTREMITIES: No clubbing, cyanosis, or edema. SKIN: Normal; no rash; no jaundice. [employer] CL[employer]: Answers questions appropriately, oriented times three. Assessment and Plan Plan EGD done 09/21/17 Mild esophagitis, Severe gastritis mostly in the body of the stomach,Severe duodenitis No biopsies secondary to thrombocytopenia Nausea and vomiting could be related to the above but also could be related to chemotherapy and her underlying leukemia Patient still has some mild nausea but no active vomiting, hemoglobin stable at 9.3, mild tenderness on light palpation exam PLAN: Protonix 40 mg daily Nausea meds as needed Pain meds per attending Monitor for any acute bleeding H. pylori stool pending Diet as tolerated GI will see as needed otherwise can follow-up as outpatient Supportive care This patient was seen by myself and Dr. Calderón, note was done on his behalf Constance Ramon Sep 22, 2017 16:46
[2017-09-22] MEDS ORDERED: PROCHLORPERAZINE INJ 10 MG/2 ML VIAL IV PUSH PRN (17:30)
[2017-09-22] MEDS: GRANISETRON HCL 1 MG/ML VIAL IV PUSH SCH (17:56)
[2017-09-22] MEDS: SODIUM CHLOR 0.9% IV SCH (18:56)
[2017-09-22] MEDS: DECITABINE IV SCH (18:56)
[2017-09-22] MEDS: SODIUM CHLOR 0.9% 250 ML INJ 250 ML IV SCH (18:57)
[2017-09-22] MEDS: LORazepam 2 MG/ML VIAL IV PUSH PRN (19:52)
[2017-09-22] MEDS ORDERED: SODIUM CHLORID 0.9% 500 ML INJ 500 ML IV ONE (21:45)
[2017-09-22] MEDS ORDERED: ACETAMINOPHEN 325 MG TAB PO PRN (21:45)
[2017-09-22] MEDS: ATORVASTATIN 40 MG TAB PO SCH (21:54)
[2017-09-22] MEDS: ACETAMINOPHEN/HYDROcodone 325 MG/5 MG TAB PO PRN (22:46)
[2017-09-23] VITALS (15 sets, daily range): BP systolic 92–117; BP diastolic 55–80; PULSE 66–127; RESP 15–18; TEMP 97.8–98.5; O2SAT 92–96
[2017-09-23] MEDS: METOPROLOL TARTRATE 25 MG TAB PO SCH ×3 (03:38→21:34)
[2017-09-23] MEDS: ONDANSETRON HCL 4 MG/2 ML VIAL IVP PRN ×2 (03:42→19:38)
[2017-09-23 03:59] LABS: HEMATOCRIT 27.4 % (35.0-46.0); MEAN CELL VOLUME 95.2 FL (80.0-100.0); MEAN CORPUSCULAR HEMOGLOBIN 31.1 PG (27.0-34.0); MEAN CORPUSCULAR HGB CONC 32.7 % (32.0-36.0); MEAN PLATELET VOLUME 8.5 FL (7.0-11.0); PLATELET COUNT 22 TH/MM3 (150-450); RED BLOOD COUNT 2.88 MIL/MM3 (4.00-5.30); WHITE BLOOD COUNT 11.7 TH/MM3 (4.0-11.0)
[2017-09-23] MEDS: RESP: ALBUTEROL 2.5 MG/IPRATROPIUM 0.5 MG NEB (SCH) NEB ×3 (04:00→16:00)
[2017-09-23 05:00] LABS: BLASTS 78 % (0-0); LYMPHOCYTES 20 % (9-44); NEUTROPHIL # MANUAL DIFF 0.2 TH/MM3 (1.8-7.7); POLYS (SEG NEUTROPHILS) 2 % (16-70)
[2017-09-23 05:03] LABS: OVALOCYTES 1+ (NORMAL); TEARDROP RBCS 1+ (NORMAL)
[2017-09-23] MEDS ORDERED: SOD PHOSPHATE/SOD BIPHOSPHATE (ADULT) ENEMA 133ML RECTAL ONE (08:30)
[2017-09-23] MEDS: SODIUM CHLORIDE 0.9% FLUSH 10 ML FLUSH IV FLUSH SCH ×2 (09:00→19:45)
--- NOTE | 2017-09-23 09:55 | PD.ONC.PN ---
Subjective Subjective Remarks "My nausea is somewhat improved, but I still haven't been able to eat anything" Reports she feels like she is constipated Denies pain Objective Data Date Time Temp Pulse Resp B/P (MAP) Pulse Ox O2 Delivery O2 Flow Rate FiO2 09/23/17 05:00 109 09/23/17 03:32 98.5 127 15 107/69 (82) 92 09/22/17 23:03 97.9 80 18 114/68 (83) 94 09/22/17 22:45 98.0 90 16 106/59 (75) 95 09/22/17 21:30 110 91/51 (64) 09/22/17 21:00 83/57 (66) 09/22/17 20:30 125 90/50 (63) 09/22/17 20:00 127 09/22/17 19:45 98.0 130 16 102/69 (80) 94 09/22/17 18:00 98.4 100 18 112/68 (83) 100 09/22/17 12:00 98.0 78 18 100/70 (80) 99 09/23/17 09/23/17 09/23/17 07:00 15:00 23:00 Intake Total 240 ml Balance 240 ml Result Diagram: 09/23/17 0330 09/22/17 0640 Laboratory Results Laboratory Tests Test 09/23/17 03:30 09/23/17 03:40 White Blood Count 11.7 TH/MM3 Red Blood Count 2.88 MIL/MM3 Hemoglobin 9.0 GM/DL Hematocrit 27.4 % Mean Corpuscular Volume 95.2 FL Mean Corpuscular Hemoglobin 31.1 PG Mean Corpuscular Hemoglobin Concent 32.7 % Red Cell Distribution Width 22.0 % Platelet Count 22 TH/MM3 Mean Platelet Volume 8.5 FL CBC Comment AUTO DIFF Differential Total Cells Counted 100 Neutrophils % (Manual) 2 % Lymphocytes % 20 % Neutrophils # (Manual) 0.2 TH/MM3 Differential Comment FINAL DIFF MANUAL Blastocytes 78 % Platelet Estimate LOW Platelet Morphology Comment NORMAL Tear Drop Cells 1+ Ovalocytes 1+ Nasal Screen MRSA (PCR) MRSA NOT DETECTED Administered Medications Medications (Trade) Dose Ordered Sig/Tylor Route PRN Reason Start Time Stop Time Status Last Admin Dose Admin Sodium Chloride (NS Flush) 2 ml BID IV FLUSH 09/19/17 21:00 09/22/17 20:52 Ondansetron HCl (Zofran Inj) 4 mg Q6H PRN IVP NAUSEA OR VOMITING 09/19/17 16:30 09/23/17 03:42 Albuterol/ Ipratropium (Duoneb Neb) 1 ampule Q6HR NEB NEB 09/19/17 22:00 09/19/17 20:26 Atorvastatin Calcium (Lipitor) 40 mg HS PO 09/19/17 21:00 09/22/17 21:54 Acetaminophen/ Hydrocodone Bitart ([place] 5-325 Mg) 1 tab Q6H PRN PO BREAKTHROUGH PAIN 09/19/17 17:15 09/22/17 22:46 Metoprolol Tartrate (Lopressor) 25 mg BID PO 09/19/17 21:00 09/23/17 03:38 Zolpidem Tartrate (Ambien) 5 mg HS PRN PO insomnia 09/20/17 11:45 09/20/17 23:51 Senna/Docusate Sodium (Ramya-Colace) 2 tab BID PO 09/20/17 21:00 09/21/17 20:09 Lorazepam (Ativan Inj) 0.5 mg Q4H PRN IV PUSH anxiety 09/20/17 13:30 09/22/17 19:52 Sodium Chloride (NS Flush) DAILY IVF 09/22/17 09:00 09/22/17 09:39 Heparin Sodium (Porcine) (Heparin Central Flush) DAILY IV FLUSH 09/22/17 09:00 09/22/17 09:38 Sodium Chloride 250 ml @ 0 mls/hr DAILY@1800 IV 09/21/17 18:00 09/25/17 18:01 09/22/17 18:57 Granisetron HCl (Kytril Inj) 1 mg DAILY@1730 IV PUSH 09/21/17 17:30 09/25/17 17:31 09/22/17 17:56 Decitabine 36.2 mg/Sodium Chloride 250 ml @ 250 mls/hr DAILY@1800 IV 09/21/17 18:00 09/25/17 18:59 09/22/17 18:56 Pantoprazole Sodium (Protonix Inj) 40 mg Q24H IV PUSH 09/22/17 09:00 09/22/17 09:38 Prochlorperazine Edisylate (Compazine Inj) 10 mg Q8H PRN IV PUSH nausea 09/22/17 17:30 09/22/17 20:48 Acetaminophen (Tylenol) 650 mg Q4H PRN PO pain 2 - 10 09/22/17 21:45 09/22/17 21:53 Objective Remarks GENERAL: Chronically ill-appearing older female resting in bed asleep on approach SKIN: Warm and dry. HEAD: Normocephalic. EYES: No injection or drainage. NECK: Supple, trachea midline. CARDIOVASCULAR: + S1/S2 RESPIRATORY: Breath sounds equal bilaterally. No accessory muscle use. GASTROINTESTINAL: Abdomen soft, non-tender, nondistended. EXTREMITIES: No cyanosis, or edema. MUSCULOSKELETAL: Generalized weakness NEUROLOGICAL: No obvious focal deficit. Awake, alert, and oriented x3. 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 She has had a total of 3 cycles of decitabine outpatient. Her last cycle was approximately 2 months ago. She was admitted with nausea and vomiting and was found to have circulating blasts at 71%. Plan 1. Patient will have day #3 out of 5 decitabine today. She is tolerating chemotherapy well with no new side effects. 2. I discussed with patient that she should take the Compazine this morning and then 20-30 minutes later attempt to eat some breakfast. 3. In regards to her nausea I discussed with her that it may be an option to add on olanzapine if the nausea is still not improved with the Compazine and Zofran. 4. Continue to monitor CBC and transfuse as needed. Attending Statement The exam, history, and the medical decision-making described in the above note were completed with the assistance of the mid-level provider. I reviewed and agree with the findings presented. I attest that I had a [id number] encounter with the patient on the same day, and personally performed and documented my assessment and findings in the medical record. remains very nauseated to the point she can not get out of bed and difficult to finish sentence. will stop compazine and try olanzaprine 5mg daily and check cmp. continue decitabine. prognosis poor with dx of AML. Wendy Lopez Sep 23, 2017 09:55 Solitario Carr MD Sep 23, 2017 16:40
[2017-09-23] MEDS: DOCUSATE SODIUM 50 MG/SENNA 8.6 MG TAB PO SCH ×2 (10:14→21:37)
[2017-09-23] MEDS: SODIUM CHLORIDE 0.9% FLUSH 10 ML FLUSH IVF SCH (10:15)
[2017-09-23] MEDS: PANTOPRAZOLE SODIUM 40 MG VIAL IV PUSH SCH (10:15)
--- NOTE | 2017-09-23 10:55 | HHI.PR ---
Subjective Remarks Follow-up for intractable emesis/nausea and AML Patient seen at the bedside with her nurse. She stated that nausea has improved but she feels very fatigued. Patient stated that she is afraid that she is going to fall. No bowel movement yet. Remains afebrile. No other complaints. Deny any pain. Objective Vitals Vital Signs Date Time Temp Pulse Resp B/P (MAP) Pulse Ox O2 Delivery O2 Flow Rate FiO2 09/23/17 08:30 98.0 66 16 92/55 (67) 94 09/23/17 05:00 109 09/23/17 03:32 98.5 127 15 107/69 (82) 92 09/22/17 23:03 97.9 80 18 114/68 (83) 94 09/22/17 22:45 98.0 90 16 106/59 (75) 95 09/22/17 21:30 110 91/51 (64) 09/22/17 21:00 83/57 (66) 09/22/17 20:30 125 90/50 (63) 09/22/17 20:00 127 09/22/17 19:45 98.0 130 16 102/69 (80) 94 09/22/17 18:00 98.4 100 18 112/68 (83) 100 09/22/17 12:00 98.0 78 18 100/70 (80) 99 I/O 09/22/17 09/22/17 09/22/17 09/23/17 09/23/17 09/23/17 07:00 15:00 23:00 07:00 15:00 23:00 Intake Total 480 ml 1230 ml 240 ml Output Total 150 ml Balance 330 ml 1230 ml 240 ml Intake Oral 480 ml 480 ml 240 ml IV Total 750 ml Output Urine Total 150 ml # Voids 2 Result Diagram: 09/23/17 0330 09/22/17 0640 Imaging Last Impressions PICC Line Insertion 09/21/17 0000 Signed Impressions: Service Date/Time: Thursday, September 21, 2017 12:57 - CONCLUSION: 1. Uncomplicated central venous Power PICC line placement. 2. The PICC line can be used immediately. Roger Fowler MD Chest X-Ray 09/19/17 0000 Signed Impressions: Service Date/Time: Tuesday, September 19, 2017 20:52 - CONCLUSION: 1. Minimal basilar atelectasis or scarring. Mild cardiomegaly. No effusion or pneumothorax. Rivas Tejeda MD Abdomen/Pelvis CT 09/19/17 0000 Signed Impressions: Service Date/Time: Tuesday, September 19, 2017 23:27 - CONCLUSION: 1. No acute findings. Mild sigmoid diverticula. 2. Stable size to the 3.1 cm mid abdominal aortic aneurysm. Yared Sethi MD Objective Remarks GENERAL: in NAD but looks uncomfortable due to feeling nauseous. CARDIOVASCULAR: Regular rate and rhythm without murmurs, gallops, or rubs. RESPIRATORY: Breath sounds equal bilaterally. No accessory muscle use. GASTROINTESTINAL: Abdomen soft, non-tender, nondistended. MUSCULOSKELETAL: No cyanosis, or edema. BACK: Nontender without obvious deformity. No CVA tenderness. Medications and IVs Current Medications Sodium Chloride 1,000 ml @ 2,000 mls/hr Q30M ONCE IV Last administered on 09/19at 14:25; Start 09/19/17 at 14:00; Stop 09/19/17 at 14:29; Status DC Ondansetron HCl (Zofran Inj) 4 mg ONCE ONCE IV PUSH Last administered on at 14:26; Start 09/19/17 at 14:00; Stop 09/19/17 at 14:14; Status DC Sodium Chloride 1,000 ml @ 2,000 mls/hr Q30M ONCE IV Last administered on 09/19at 16:22; Start 09/19/17 at 16:15; Stop 09/19/17 at 16:44; Status DC Prochlorperazine Edisylate (Compazine Inj) 10 mg ONCE ONCE IV PUSH Last administered on 09/19/17at 16:22; Start 09/19/17 at 16:15; Stop 09/19/17 at 16:16 ; Status DC Diphenhydramine HCl (Benadryl Inj) 25 mg ONCE ONCE IV PUSH Last administered on 09/19/17at 16:22; Start 09/19/17 at 16:15; Stop 09/19/17 at 16:16; Status DC Potassium Bicarb/ Potassium Chloride (K-Lyte Cl Eff) 50 meq ONCE ONCE PO ; Start 09/19/17 at 16:30; Stop 09/19/17 at 16:34; Status DC Potassium Chloride 100 ml @ 50 mls/hr Q2H IV Last administered on 09/20/17at 09 :27; Start 09/19/17 at 16:30; Stop 09/19/17 at 20:29; Status DC Calcium Gluconate (Calcium Gluconate Inj) 1 gm ONCE ONCE IV PUSH ; Start at 16:30; Stop 09/19/17 at 16:31; Status UNV Sodium Chloride (NS Flush) 2 ml UNSCH PRN IV FLUSH FLUSH AFTER USING IV ACCESS ; Start 09/19/17 at 16:30 Sodium Chloride (NS Flush) 2 ml BID IV FLUSH Last administered on 09/22/17at 20: 52; Start 09/19/17 at 21:00 Ondansetron HCl (Zofran Inj) 4 mg Q6H PRN IVP NAUSEA OR VOMITING Last administered on 09/23/17at 03:42; Start 09/19/17 at 16:30 Naloxone HCl (Narcan Inj) 0.4 mg UNSCH PRN IV PUSH SEE LABEL COMMENTS; Start at 16:30 Dextrose (D50w (Vial) Inj) 50 ml ONCE ONCE IV PUSH Last administered on at 17:05; Start 09/19/17 at 16:30; Stop 09/19/17 at 16:32; Status DC Albuterol/ Ipratropium (Duoneb Neb) 1 ampule Q6HR NEB NEB Last administered on 09/19/17at 20:26; Start 09/19/17 at 22:00 Albuterol/ Ipratropium (Duoneb Neb) 1 ampule Q2HR NEB PRN NEB WHEEZING; Start 09/19/17 at 16:30 Calcium Gluconate 1 gm/Sodium Chloride 110 ml @ 110 mls/hr ONCE ONCE IV Last administered on 09/19/17at 17:48; Start 09/19/17 at 17:00; Stop 09/19/17 at 17:59 ; Status DC Atorvastatin Calcium (Lipitor) 40 mg HS PO Last administered on 09/22/17at 21:54 ; Start 09/19/17 at 21:00 Acetaminophen/ Hydrocodone Bitart ([place] 5-325 Mg) 1 tab Q6H PRN PO BREAKTHROUGH PAIN Last administered on 09/22/17at 22:46; Start 09/19/17 at 17:15 Metoprolol Tartrate (Lopressor) 25 mg BID PO Last administered on 09/23/17at 03: 38; Start 09/19/17 at 21:00 Diatrizoate Meglum/ Diatrizoate Sod ( Gastrosnehal Liq) 18 ml ONCE ONCE PO ; Start 09/19/17 at 17:02; Stop 09/19/17 at 17:18; Status DC Potassium Chloride (KCl) 40 meq ONCE ONCE PO ; Start 09/19/17 at 20:30; Stop at 20:45; Status DC Enoxaparin Sodium (Lovenox Inj) 40 mg Q24H SQ Last administered on 09/20/17at 09 :23; Start 09/20/17 at 09:00; Stop 09/20/17 at 13:24; Status DC Iohexol (Omnipaque 350 Inj) 70 ml STK-MED ONCE IVCONTRAST Last administered on 09/19/17at 23:50; Start 09/19/17 at 23:50; Stop 09/19/17 at 23:51; Status DC Lorazepam (Ativan Inj) 0.5 mg ONCE ONCE IV PUSH Last administered on at 01:37; Start 09/20/17 at 01:30; Stop 09/20/17 at 01:31; Status DC Potassium Chloride 100 ml @ As Directed STK-MED ONCE .ROUTE ; Start 09/20/17 at 09:27; Stop 09/20/17 at 09:28; Status DC Zolpidem Tartrate (Ambien) 5 mg HS PRN PO insomnia Last administered on at 23:51; Start 09/20/17 at 11:45 Senna/Docusate Sodium (Ramya-Colace) 2 tab BID PO Last administered on at 10:14; Start 09/20/17 at 21:00 Polyethylene Glycol (Miralax) 17 gm ONCE ONCE PO ; Start 09/20/17 at 11:45; Stop 09/20/17 at 11:46; Status DC Sodium Chloride 250 ml @ 15 mls/hr ONCE ONCE IV Last administered on at 18:30; Start 09/20/17 at 13:30; Stop 09/21/17 at 06:09; Status DC Acetaminophen (Tylenol) 650 mg Q4H PRN PO SEE LABEL COMMENTS Last administered on 09/20/17at 21:10; Start 09/20/17 at 13:30; Stop 09/20/17 at 21:20; Status DC Diphenhydramine HCl (Benadryl) 25 mg Q4H PRN PO SEE LABEL COMMENTS Last administered on 09/20/17at 21:09; Start 09/20/17 at 13:30; Stop 09/20/17 at 21:20 ; Status DC Lorazepam (Ativan Inj) 0.5 mg Q4H PRN IV PUSH anxiety Last administered on 09/22at 19:52; Start 09/20/17 at 13:30 Sodium Chloride 250 ml @ 15 mls/hr ONCE ONCE IV Last administered on at 14:41; Start 09/20/17 at 18:30; Stop 09/21/17 at 11:09; Status DC Acetaminophen (Tylenol) 650 mg Q4H PRN PO SEE LABEL COMMENTS Last administered on 09/21/17at 13:15; Start 09/20/17 at 18:30; Stop 09/21/17 at 13:15; Status DC Diphenhydramine HCl (Benadryl) 25 mg Q4H PRN PO SEE LABEL COMMENTS Last administered on 09/21/17at 13:14; Start 09/20/17 at 18:30; Stop 09/21/17 at 13:15 ; Status DC Potassium Chloride 100 ml @ 100 mls/hr Q1H IV ; Start 09/21/17 at 08:15; Stop 09/21/17 at 11:14; Status DC Lactulose (Lactulose Liq) 30 ml ONCE PRN PO AFTER HER PER PROCEDURE TODAY; Start 09/21/17 at 11:00; Stop 09/21/17 at 23:59; Status DC Heparin Sodium (Porcine) (*HEPARIN CENTRAL FLUSH PERIprocedural ONLY) 500 units STK-MED ONCE IV FLUSH Last administered on 09/21/17at 11:48; Start 09/21/17 at 11:34; Stop 09/21/17 at 11:35; Status DC Sodium Chloride (NS Flush) DAILY IVF Last administered on 09/23/17at 10:15; Start 09/22/17 at 09:00 Heparin Sodium (Porcine) (Heparin Central Flush) DAILY IV FLUSH Last administered on 09/23/17at 10:15; Start 09/22/17 at 09:00 Sodium Chloride (NS Flush) UNSCH PRN IVF SEE PROTOCOL; Start 09/21/17 at 12:45 Heparin Sodium (Porcine) (Heparin Central Flush) UNSCH PRN IV FLUSH SEE PROTOCOL; Start 09/21/17 at 12:45 Sodium Chloride (NS Flush) UNSCH PRN IVF SEE PROTOCOL; Start 09/21/17 at 12:45 Sodium Chloride 250 ml @ 0 mls/hr DAILY@1800 IV Last administered on 09/22/17at 18:57; Start 09/21/17 at 18:00; Stop 09/25/17 at 18:01 Granisetron HCl (Kytril Inj) 1 mg DAILY@1730 IV PUSH Last administered on at 17:56; Start 09/21/17 at 17:30; Stop 09/25/17 at 17:31 Decitabine 36.2 mg/Sodium Chloride 250 ml @ 250 mls/hr DAILY@1800 IV Last administered on 09/22/17at 18:56; Start 09/21/17 at 18:00; Stop 09/25/17 at 18:59 Potassium Chloride 100 ml @ 100 mls/hr Q1H IV Last administered on 09/21/17at 23:21; Start 09/21/17 at 18:00; Stop 09/21/17 at 20:59; Status DC Pantoprazole Sodium (Protonix Inj) 40 mg Q24H IV PUSH Last administered on 09/23at 10:15; Start 09/22/17 at 09:00 Prochlorperazine Edisylate (Compazine Inj) 10 mg Q8H PRN IV PUSH nausea Last administered on 09/22/17at 20:48; Start 09/22/17 at 17:30 Sodium Chloride 500 ml @ 500 mls/hr BOLUS ONCE IV Last administered on at 21:55; Start 09/22/17 at 21:45; Stop 09/22/17 at 22:44; Status DC Acetaminophen (Tylenol) 650 mg Q4H PRN PO pain 2 - 10 Last administered on 09/22at 21:53; Start 09/22/17 at 21:45 Sodium Biphosphate/ Sodium Phosphate (Fleets Enema (Adult)) 133 ml ONCE ONCE RECTAL ; Start 09/23/17 at 08:30; Stop 09/23/17 at 08:31; Status DC A/P Assessment and Plan 67-year-old female admitted due to intractable emesis Intractable emesis/nausea. -Occurred 2 months ago after chemotherapy. -Patient was recently hospitalized in [place] and was on multiple anti-medics medications with no relief. She returned to the hospital since the symptoms are not resolved. -EGD done on 09/21 showing severe gastritis and duodenitis. GI order stool H pylori and recommend Protonix. -Patient on Protonix with improvement of nausea and emesis. AML -Appreciate oncologist recommendation. -Status post PICC placement and then be treated with initiation of Dacogen at 20 mg/m2 IV on days 1-7. Hypertension/COPD/atrial fibrillation/hypothyroidism/seizure disorder - Continue with home medication. Anemia -Hemoglobin decreased from 9-7.6. -No active bleeding. -May be hemoconcentrated. -Oncologist consulted. Will transfuse if hemoglobin less than 7 or symptomatic. Constipation -Patient on stool softener. Prior she was unable to take oral intake but symptoms are improving with Protonix. Will continue with her schedule Ramya- Colace and schedule lactulose. DVT prophylaxis with Lovenox. Cecilia Domingo MD Sep 23, 2017 10:55
[2017-09-23] MEDS ORDERED: LACTULOSE SYRUP 20 GM/30 ML CUP PO ONE (11:00)
[2017-09-23] MEDS: SODIUM CHLOR 0.9% 250 ML INJ 250 ML IV SCH (18:00)
[2017-09-23] MEDS: GRANISETRON HCL 1 MG/ML VIAL IV PUSH SCH (18:11)
[2017-09-23] MEDS: LORazepam 2 MG/ML VIAL IV PUSH PRN (19:38)
[2017-09-23] MEDS: SODIUM CHLOR 0.9% IV SCH (19:43)
[2017-09-23] MEDS: DECITABINE IV SCH (19:43)
[2017-09-23] MEDS ORDERED: SODIUM CHLOR 0.9% 250 ML INJ 250 ML IV ONE (21:00)
[2017-09-23] MEDS: ATORVASTATIN 40 MG TAB PO SCH (21:35)
[2017-09-24] VITALS (10 sets, daily range): BP systolic 87–115; BP diastolic 53–70; PULSE 82–123; RESP 16–18; TEMP 96.5–98.8; O2SAT 92–96
[2017-09-24] MEDS: LORazepam 2 MG/ML VIAL IV PUSH PRN ×2 (00:25→09:59)
[2017-09-24] MEDS: ACETAMINOPHEN/HYDROcodone 325 MG/5 MG TAB PO PRN ×2 (00:59→23:12)
[2017-09-24 06:10] LABS: HEMATOCRIT 31.1 % (35.0-46.0); HEMOGLOBIN 10.4 GM/DL (11.6-15.3); MEAN CELL VOLUME 93.8 FL (80.0-100.0); MEAN CORPUSCULAR HEMOGLOBIN 31.5 PG (27.0-34.0); MEAN CORPUSCULAR HGB CONC 33.6 % (32.0-36.0); MEAN PLATELET VOLUME 9.3 FL (7.0-11.0); PLATELET COUNT 30 TH/MM3 (150-450); RED BLOOD COUNT 3.32 MIL/MM3 (4.00-5.30); RED CELL DISTRIBUTION WIDTH 21.4 % (11.6-17.2); WHITE BLOOD COUNT 24.1 TH/MM3 (4.0-11.0)
[2017-09-24 06:12] LABS: BICARBONATE 21.7 MEQ/L (21.0-32.0); CALCIUM 7.4 MG/DL (8.5-10.1); CREATININE 0.87 MG/DL (0.50-1.00)
[2017-09-24 06:24] LABS: CALCIUM-PROTEIN CORRECTED 8.2 MG/DL (8.5-10.1); TOTAL PROTEIN 5.7 GM/DL (6.4-8.2)
--- NOTE | 2017-09-24 07:40 | PD.ONC.PN ---
Subjective Subjective Remarks Pt reports continuous nausea, she reports it comes on in waves and laying in bed without moving seems to help. The current antiemetic medications seem to be ineffective. The nausea has been worse since she started this cycle of dacogen. Results of the patient's EGD were reviewed. Objective Data Date Time Temp Pulse Resp B/P (MAP) Pulse Ox O2 Delivery O2 Flow Rate FiO2 09/24/17 04:56 98.0 120 18 97/70 (79) 93 09/24/17 00:57 98.2 122 16 100/57 (71) 94 09/23/17 23:15 122 116/80 (92) 09/23/17 23:00 119 103/62 (76) 09/23/17 22:55 126 93/60 (71) 09/23/17 22:45 123 96/57 (70) 09/23/17 22:30 118 115/80 (92) 09/23/17 22:30 119 18 110/70 (83) 09/23/17 22:30 119 115/80 (92) 09/23/17 22:15 124 117/74 (88) 09/23/17 22:00 122 109/71 (84) 09/23/17 20:15 125 96/59 (71) 09/23/17 20:00 121 09/23/17 20:00 100/63 (75) 09/23/17 19:45 97.9 87 16 117/78 (91) 94 09/23/17 16:28 98.5 100 18 100/70 (80) 95 09/23/17 12:00 97.8 82 18 104/68 (80) 96 09/23/17 08:30 98.0 66 16 92/55 (67) 94 09/24/17 09/24/17 09/24/17 07:00 15:00 23:00 Intake Total 250 ml Balance 250 ml Result Diagram: 09/24/17 0455 09/24/17 0455 Laboratory Results Laboratory Tests Test 09/24/17 04:55 White Blood Count 24.1 TH/MM3 Red Blood Count 3.32 MIL/MM3 Hemoglobin 10.4 GM/DL Hematocrit 31.1 % Mean Corpuscular Volume 93.8 FL Mean Corpuscular Hemoglobin 31.5 PG Mean Corpuscular Hemoglobin Concent 33.6 % Red Cell Distribution Width 21.4 % Platelet Count 30 TH/MM3 Mean Platelet Volume 9.3 FL CBC Comment AUTO DIFF Blood Urea Nitrogen 8 MG/DL Creatinine 0.87 MG/DL Random Glucose 85 MG/DL Total Protein 5.7 GM/DL Calcium Level 7.4 MG/DL Sodium Level 138 MEQ/L Potassium Level 3.5 MEQ/L Chloride Level 105 MEQ/L Carbon Dioxide Level 21.7 MEQ/L Anion Gap 11 MEQ/L Estimat Glomerular Filtration Rate 65 ML/MIN Protein Corrected Calcium 8.2 MG/DL Administered Medications Medications (Trade) Dose Ordered Sig/Tylor Route PRN Reason Start Time Stop Time Status Last Admin Dose Admin Sodium Chloride (NS Flush) 2 ml BID IV FLUSH 09/19/17 21:00 09/23/17 19:45 Ondansetron HCl (Zofran Inj) 4 mg Q6H PRN IVP NAUSEA OR VOMITING 09/19/17 16:30 09/23/17 19:38 Atorvastatin Calcium (Lipitor) 40 mg HS PO 09/19/17 21:00 09/23/17 21:35 Acetaminophen/ Hydrocodone Bitart ([place] 5-325 Mg) 1 tab Q6H PRN PO BREAKTHROUGH PAIN 09/19/17 17:15 09/24/17 00:59 Metoprolol Tartrate (Lopressor) 25 mg BID PO 09/19/17 21:00 09/23/17 21:34 Zolpidem Tartrate (Ambien) 5 mg HS PRN PO insomnia 09/20/17 11:45 09/20/17 23:51 Senna/Docusate Sodium (Ramya-Colace) 2 tab BID PO 09/20/17 21:00 09/23/17 21:37 Lorazepam (Ativan Inj) 0.5 mg Q4H PRN IV PUSH anxiety 09/20/17 13:30 09/24/17 00:25 Sodium Chloride (NS Flush) DAILY IVF 09/22/17 09:00 09/23/17 10:15 Heparin Sodium (Porcine) (Heparin Central Flush) DAILY IV FLUSH 09/22/17 09:00 09/23/17 10:15 Sodium Chloride 250 ml @ 0 mls/hr DAILY@1800 IV 09/21/17 18:00 09/25/17 18:01 09/23/17 18:00 Granisetron HCl (Kytril Inj) 1 mg DAILY@1730 IV PUSH 09/21/17 17:30 09/25/17 17:31 09/23/17 18:11 Decitabine 36.2 mg/Sodium Chloride 250 ml @ 250 mls/hr DAILY@1800 IV 09/21/17 18:00 09/25/17 18:59 09/23/17 19:43 Pantoprazole Sodium (Protonix Inj) 40 mg Q24H IV PUSH 09/22/17 09:00 09/23/17 10:15 Acetaminophen (Tylenol) 650 mg Q4H PRN PO pain 2 - 10 09/22/17 21:45 09/22/17 21:53 Objective Remarks GENERAL APPEARANCE: Ms. Richard is an elderly lady, she is laying in bed, she appears to be in no acute distress, but is pale. HEENT: Head is atraumatic, normocephalic, conjunctive are pale, sclerae are anicteric, EOMI, PERRLA, oral exam no pharyngeal erythema. NECK: No palpable cervical or supraclavicular lymphadenopathy. RESPIRATORY: Good air movement bilaterally with prolonged expiratory phase. CARDIOVASCULAR: Tachycardic, Irregular rhythm, S1-S2. No obvious murmurs, rubs or gallops. ABDOMEN: Protuberant, soft, no obvious organ enlargement, positive bowel sounds. No obvious tenderness. LOWER EXTREMITIES: No pretibial edema or calf tenderness. MUSCULOSKELETAL: Generally decreased muscle mass, tone and strength. SPOT WASHER: No focal sensory or motor deficits. 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 She has had a total of 3 cycles of decitabine outpatient. Her last cycle was approximately 2 months ago. She was admitted with nausea and vomiting and was found to have circulating blasts at 71%. Plan 1. AML: Patient will have day #4 out of 5 decitabine today. She has significant nausea. 2. For nausea she is now on kytril, olanzapine, marinol and compazine. SHe is also dosed with alprazolam as needed for anxiety. Given the non specific findings on EGD, I suspect the nausea may have an anxiety component to it. 3. Continue supportive care. Roberto Yarbrough MD Sep 24, 2017 07:40
--- NOTE | 2017-09-24 08:08 | HHI.PR ---
Subjective Remarks Less abdominal pain today. Still with nausea no vomiting. Decreased appetite not eating. No chest pain or shortness of breath. No fever or chills overnight. Objective Vitals Vital Signs Date Time Temp Pulse Resp B/P (MAP) Pulse Ox O2 Delivery O2 Flow Rate FiO2 09/24/17 04:56 98.0 120 18 97/70 (79) 93 09/24/17 00:57 98.2 122 16 100/57 (71) 94 09/23/17 23:15 122 116/80 (92) 09/23/17 23:00 119 103/62 (76) 09/23/17 22:55 126 93/60 (71) 09/23/17 22:45 123 96/57 (70) 09/23/17 22:30 118 115/80 (92) 09/23/17 22:30 119 18 110/70 (83) 09/23/17 22:30 119 115/80 (92) 09/23/17 22:15 124 117/74 (88) 09/23/17 22:00 122 109/71 (84) 09/23/17 20:15 125 96/59 (71) 09/23/17 20:00 121 09/23/17 20:00 100/63 (75) 09/23/17 19:45 97.9 87 16 117/78 (91) 94 09/23/17 16:28 98.5 100 18 100/70 (80) 95 09/23/17 12:00 97.8 82 18 104/68 (80) 96 09/23/17 08:30 98.0 66 16 92/55 (67) 94 I/O 09/23/17 09/23/17 09/23/17 09/24/17 09/24/17 09/24/17 07:00 15:00 23:00 07:00 15:00 23:00 Intake Total 240 ml 250 ml 250 ml Balance 240 ml 250 ml 250 ml Intake Oral 240 ml IV Total 250 ml 250 ml # Voids 2 2 # Bowel Movements 1 1 Result Diagram: 09/24/17 0455 09/24/17 0455 Imaging Last Impressions PICC Line Insertion 09/21/17 0000 Signed Impressions: Service Date/Time: Thursday, September 21, 2017 12:57 - CONCLUSION: 1. Uncomplicated central venous Power PICC line placement. 2. The PICC line can be used immediately. Roger Fowler MD Chest X-Ray 09/19/17 0000 Signed Impressions: Service Date/Time: Tuesday, September 19, 2017 20:52 - CONCLUSION: 1. Minimal basilar atelectasis or scarring. Mild cardiomegaly. No effusion or pneumothorax. Rivas Tejeda MD Abdomen/Pelvis CT 09/19/17 0000 Signed Impressions: Service Date/Time: Tuesday, September 19, 2017 23:27 - CONCLUSION: 1. No acute findings. Mild sigmoid diverticula. 2. Stable size to the 3.1 cm mid abdominal aortic aneurysm. Yared Sethi MD Objective Remarks GENERAL: in NAD but looks uncomfortable due to feeling nauseous. CARDIOVASCULAR: Regular rate and rhythm without murmurs, gallops, or rubs. RESPIRATORY: Breath sounds equal bilaterally. No accessory muscle use. GASTROINTESTINAL: Abdomen soft, non-tender, nondistended. MUSCULOSKELETAL: No cyanosis, or edema. BACK: Nontender without obvious deformity. No CVA tenderness. A/P Assessment and Plan 67-year-old female admitted due to intractable emesis Intractable emesis/nausea. -Occurred 2 months ago after chemotherapy. -Patient was recently hospitalized in [place] and was on multiple anti-medics medications with no relief. She returned to the hospital since the symptoms are not resolved. -EGD done on 09/21 showing severe gastritis and duodenitis. GI order stool H pylori and recommend Protonix. -Patient on Protonix with improvement of nausea and emesis. Anxiety. Add Ativan AML -Appreciate oncologist recommendation. -Status post PICC placement and then be treated with initiation of Dacogen at 20 mg/m2 IV on days 1-7. Hypertension/COPD/atrial fibrillation/hypothyroidism/seizure disorder - Continue with home medication. Anemia -Hemoglobin decreased from 9-7.6. -No active bleeding. -May be hemoconcentrated. -Oncologist consulted. Will transfuse if hemoglobin less than 7 or symptomatic. Constipation -Patient on stool softener. Prior she was unable to take oral intake but symptoms are improving with Protonix. Will continue with her schedule Ramya- Colace and schedule lactulose. DVT prophylaxis with Lovenox. Discharge plan pending improvement and clearance by consultants. Lydia Bright MD Sep 24, 2017 08:08
[2017-09-24] MEDS: METOPROLOL TARTRATE 25 MG TAB PO SCH ×2 (09:00→20:35)
[2017-09-24] MEDS: SODIUM CHLORIDE 0.9% FLUSH 10 ML FLUSH IVF SCH (09:00)
[2017-09-24] MEDS: LACTULOSE SYRUP 20 GM/30 ML CUP PO SCH (09:00)
[2017-09-24] MEDS: PANTOPRAZOLE SODIUM 40 MG VIAL IV PUSH SCH (09:46)
[2017-09-24] MEDS: OLANZapine 5 MG TAB PO SCH (09:46)
[2017-09-24] MEDS: SODIUM CHLORIDE 0.9% FLUSH 10 ML FLUSH IV FLUSH SCH ×2 (09:46→20:35)
[2017-09-24] MEDS: DOCUSATE SODIUM 50 MG/SENNA 8.6 MG TAB PO SCH ×2 (09:46→20:35)
[2017-09-24] MEDS: ONDANSETRON HCL 4 MG/2 ML VIAL IVP PRN (10:10)
[2017-09-24] MEDS ORDERED: SODIUM CHLOR 0.9% 250 ML INJ 250 ML IV ONE (10:15)
[2017-09-24 11:06] LABS: BLASTS 70 % (0-0); LYMPHOCYTES 27 % (9-44); MONOCYTES 3 % (0-8)
[2017-09-24 11:07] LABS: SMUDGE CELLS PRESENT PRESENT
[2017-09-24 11:08] LABS: TEARDROP RBCS 1+ (NORMAL)
[2017-09-24] MEDS: DRONABINOL 5 MG CAP PO SCH ×2 (11:32→16:25)
[2017-09-24] MEDS: SODIUM CHLOR 0.9% 1000 ML INJ 1,000 ML IV SCH (16:25)
[2017-09-24] MEDS: GRANISETRON HCL 1 MG/ML VIAL IV PUSH SCH (18:39)
[2017-09-24] MEDS: SODIUM CHLOR 0.9% IV SCH (19:31)
[2017-09-24] MEDS: DECITABINE IV SCH (19:31)
[2017-09-24] MEDS: SODIUM CHLOR 0.9% 250 ML INJ 250 ML IV SCH (19:32)
[2017-09-24] MEDS: ATORVASTATIN 40 MG TAB PO SCH (20:34)
[2017-09-25] VITALS (12 sets, daily range): BP systolic 84–116; BP diastolic 51–63; PULSE 78–145; RESP 16–18; TEMP 97.6–98.4; O2SAT 90–99
[2017-09-25] MEDS: ONDANSETRON HCL 4 MG/2 ML VIAL IVP PRN ×2 (01:58→10:22)
[2017-09-25] MEDS: LORazepam 2 MG/ML VIAL IV PUSH PRN ×2 (02:04→10:22)
[2017-09-25 06:08] LABS: HEMOGLOBIN 7.8 GM/DL (11.6-15.3); MEAN CELL VOLUME 94.6 FL (80.0-100.0); MEAN CORPUSCULAR HGB CONC 33.9 % (32.0-36.0); MEAN PLATELET VOLUME 8.9 FL (7.0-11.0); RED BLOOD COUNT 2.44 MIL/MM3 (4.00-5.30); RED CELL DISTRIBUTION WIDTH 21.8 % (11.6-17.2)
[2017-09-25 06:25] LABS: PLATELET COUNT 14 TH/MM3 (150-450)
[2017-09-25 08:31] LABS: BLASTS 71 % (0-0); LYMPHOCYTES 24 % (9-44); NEUTROPHIL # MANUAL DIFF 0.5 TH/MM3 (1.8-7.7); POLYS (SEG NEUTROPHILS) 5 % (16-70)
[2017-09-25 08:32] LABS: OVALOCYTES 1+ (NORMAL); TEARDROP RBCS 1+ (NORMAL)
[2017-09-25] MEDS: SODIUM CHLORIDE 0.9% FLUSH 10 ML FLUSH IVF SCH (09:00)
[2017-09-25] MEDS: METOPROLOL TARTRATE 25 MG TAB PO SCH ×2 (09:00→20:59)
[2017-09-25] MEDS: LACTULOSE SYRUP 20 GM/30 ML CUP PO SCH (09:00)
[2017-09-25] MEDS: DOCUSATE SODIUM 50 MG/SENNA 8.6 MG TAB PO SCH ×2 (10:21→21:00)
[2017-09-25] MEDS: OLANZapine 5 MG TAB PO SCH (10:21)
[2017-09-25] MEDS: PANTOPRAZOLE SODIUM 40 MG VIAL IV PUSH SCH (10:21)
[2017-09-25] MEDS: SODIUM CHLORIDE 0.9% FLUSH 10 ML FLUSH IV FLUSH SCH ×2 (10:22→21:00)
[2017-09-25] MEDS: DRONABINOL 5 MG CAP PO SCH ×2 (13:02→16:00)
--- NOTE | 2017-09-25 13:26 | HHI.PR ---
Subjective Remarks In bed with nausea no vomiting. Feels appetite is improving some. No fever or chills. Did have a BM . No fever or chills. Objective Vitals Vital Signs Date Time Temp Pulse Resp B/P (MAP) Pulse Ox O2 Delivery O2 Flow Rate FiO2 09/25/17 10:15 98.0 78 16 116/62 (80) 94 09/25/17 05:10 98.3 83 16 109/59 (76) 90 09/25/17 00:10 80 09/24/17 21:36 98.3 85 16 104/58 (73) 93 09/24/17 20:34 86 115/56 (75) 09/24/17 20:27 92 09/24/17 20:21 96.5 85 16 98/53 (68) 93 09/24/17 19:37 86 16 102/58 (73) 95 09/24/17 16:30 98.8 85 16 109/57 (74) 94 I/O 09/24/17 09/24/17 09/24/17 09/25/17 09/25/17 09/25/17 07:00 15:00 23:00 07:00 15:00 23:00 Intake Total 250 ml 250 ml 1570 ml Output Total 200 ml 100 ml Balance 250 ml 250 ml 1370 ml -100 ml Intake Oral 960 ml IV Total 250 ml 250 ml 610 ml Output Urine Total 200 ml 100 ml # Voids 2 1 # Bowel Movements 1 1 Result Diagram: 09/25/17 0515 09/24/17 0455 Imaging Last Impressions PICC Line Insertion 09/21/17 0000 Signed Impressions: Service Date/Time: Thursday, September 21, 2017 12:57 - CONCLUSION: 1. Uncomplicated central venous Power PICC line placement. 2. The PICC line can be used immediately. Roger Fowler MD Chest X-Ray 09/19/17 0000 Signed Impressions: Service Date/Time: Tuesday, September 19, 2017 20:52 - CONCLUSION: 1. Minimal basilar atelectasis or scarring. Mild cardiomegaly. No effusion or pneumothorax. Rivas Tejeda MD Abdomen/Pelvis CT 09/19/17 0000 Signed Impressions: Service Date/Time: Tuesday, September 19, 2017 23:27 - CONCLUSION: 1. No acute findings. Mild sigmoid diverticula. 2. Stable size to the 3.1 cm mid abdominal aortic aneurysm. Yared Sethi MD Objective Remarks GENERAL: in NAD but looks uncomfortable due to feeling nauseous. CARDIOVASCULAR: Regular rate and rhythm without murmurs, gallops, or rubs. RESPIRATORY: Breath sounds equal bilaterally. No accessory muscle use. GASTROINTESTINAL: Abdomen soft, non-tender, nondistended. MUSCULOSKELETAL: No cyanosis, or edema. BACK: Nontender without obvious deformity. No CVA tenderness. A/P Assessment and Plan 67-year-old female admitted due to intractable emesis Intractable emesis/nausea. -Occurred 2 months ago after chemotherapy. -Patient was recently hospitalized in [place] and was on multiple anti-medics medications with no relief. She returned to the hospital since the symptoms are not resolved. -EGD done on 09/21 showing severe gastritis and duodenitis. GI order stool H pylori and recommend Protonix. -Patient on Protonix with improvement of nausea and emesis. Anxiety. Add Ativan AML -Appreciate oncologist recommendation. -Status post PICC placement and then be treated with initiation of Dacogen at 20 mg/m2 IV on days 1-7. Hypertension/COPD/atrial fibrillation/hypothyroidism/seizure disorder - Continue with home medication. Anemia -Hemoglobin decreased from 9-7.6. -No active bleeding. -May be hemoconcentrated. -Oncologist consulted. Will transfuse if hemoglobin less than 7 or symptomatic. Constipation -Patient on stool softener. Prior she was unable to take oral intake but symptoms are improving with Protonix. Will continue with her schedule Ramya- Colace and schedule lactulose. DVT prophylaxis with Lovenox. Discharge plan pending improvement and clearance by consultants. Possible discharge tomorrow if no nausea clear by oncology. Lydia Bright MD Sep 25, 2017 13:26
[2017-09-25] MEDS ORDERED: SODIUM CHLOR 0.9% 250 ML INJ 250 ML IV ONE (19:00)
[2017-09-25] MEDS: ATORVASTATIN 40 MG TAB PO SCH (21:00)
[2017-09-25] MEDS: SODIUM CHLOR 0.9% IV SCH (22:22)
[2017-09-25] MEDS: DECITABINE IV SCH (22:22)
[2017-09-25] MEDS ORDERED: METOPROLOL TARTRATE 5 MG/5 ML VIAL IV PUSH ONE (23:30)
[2017-09-26] VITALS (27 sets, daily range): BP systolic 77–119; BP diastolic 43–74; PULSE 68–127; RESP 16–20; TEMP 98.2–98.9; O2SAT 93–99
[2017-09-26] MEDS ORDERED: metroNIDAZOLE 500 MG INJ 100 ML IV SCH ×2 (02:00→20:00)
[2017-09-26] MEDS: ACETAMINOPHEN/HYDROcodone 325 MG/5 MG TAB PO PRN ×3 (04:32→23:02)
[2017-09-26 04:50] LABS: HEMATOCRIT 25.9 % (35.0-46.0); HEMOGLOBIN 8.7 GM/DL (11.6-15.3); MEAN CELL VOLUME 93.6 FL (80.0-100.0); MEAN CORPUSCULAR HEMOGLOBIN 31.4 PG (27.0-34.0); MEAN CORPUSCULAR HGB CONC 33.5 % (32.0-36.0); MEAN PLATELET VOLUME 8.9 FL (7.0-11.0); RED BLOOD COUNT 2.77 MIL/MM3 (4.00-5.30); RED CELL DISTRIBUTION WIDTH 21.3 % (11.6-17.2); WHITE BLOOD COUNT 11.1 TH/MM3 (4.0-11.0)
[2017-09-26 04:59] LABS: PLATELET COUNT 17 TH/MM3 (150-450)
[2017-09-26] MEDS: SODIUM CHLOR 0.9% 1000 ML INJ 1,000 ML IV SCH (05:06)
[2017-09-26 05:52] LABS: BANDS 1 % (0-6); BLASTS 71 % (0-0); LYMPHOCYTES 10 % (9-44); MONOCYTES 2 % (0-8); NEUTROPHIL # MANUAL DIFF 1.9 TH/MM3 (1.8-7.7); POLYS (SEG NEUTROPHILS) 16 % (16-70)
[2017-09-26 05:53] LABS: OVALOCYTES 1+ (NORMAL)
--- NOTE | 2017-09-26 07:26 | PD.ONC.PN ---
Subjective Subjective Remarks Patient was seen and examined, vital signs, labs, medications, chemotherapy administration and overnight events were reviewed. Additionally microbiology was reviewed. Overnight the patient had sustained tachycardia, 12-lead EKG revealed possible A. fib with RVR. The patient's tachycardia was controlled with a combination of by mouth and IV metoprolol. Day 5 Dacogen infusion was held due to the tachycardia, the dosing has been health until this morning. Subjectively; the patient reports having diarrhea; she reports having had close to 20 bowel movements yesterday. She tells me her nausea persists and that other then a post she really had very limited oral intake yesterday. She tells me she has not been out of bed and has been generally weak. She wants to know when she may be ready to leave the hospital. She declines transitioned to a fdc facility or short-term rehabilitation. She would favor going home to stay with her daughter were her daughter will be able to care for her around the clock. Objective Data Date Time Temp Pulse Resp B/P (MAP) Pulse Ox O2 Delivery O2 Flow Rate FiO2 09/26/17 05:30 18 09/26/17 04:19 98.2 127 16 105/62 (76) 93 09/26/17 00:28 119 106/61 (76) 09/26/17 00:23 120 104/70 (81) 09/26/17 00:20 121 98/62 (74) 09/26/17 00:13 98.6 120 18 106/73 (84) 99 09/25/17 22:21 128 16 93/63 (73) 99 09/25/17 19:40 97.6 140 18 97/56 (70) 95 09/25/17 18:20 133 16 92 09/25/17 17:50 145 16 84/51 (62) 93 09/25/17 12:45 98.4 135 16 94/61 (72) 95 09/25/17 10:15 98.0 78 16 116/62 (80) 94 Result Diagram: 09/26/17 0433 09/24/17 0455 Laboratory Results Laboratory Tests Test 09/25/17 21:45 09/26/17 04:33 Stool C. difficile Toxin (PCR) POSITIVE Stl C. difficile Toxin Epiderm 027 PRESUMPTIVE NEGATIVE White Blood Count 11.1 TH/MM3 Red Blood Count 2.77 MIL/MM3 Hemoglobin 8.7 GM/DL Hematocrit 25.9 % Mean Corpuscular Volume 93.6 FL Mean Corpuscular Hemoglobin 31.4 PG Mean Corpuscular Hemoglobin Concent 33.5 % Red Cell Distribution Width 21.3 % Platelet Count 17 TH/MM3 Mean Platelet Volume 8.9 FL CBC Comment AUTO DIFF Differential Total Cells Counted 100 Neutrophils % (Manual) 16 % Band Neutrophils % 1 % Lymphocytes % 10 % Monocytes % 2 % Neutrophils # (Manual) 1.9 TH/MM3 Differential Comment FINAL DIFF MANUAL Blastocytes 71 % Platelet Estimate LOW Platelet Morphology Comment NORMAL Ovalocytes 1+ Administered Medications Medications (Trade) Dose Ordered Sig/Tylor Route PRN Reason Start Time Stop Time Status Last Admin Dose Admin Sodium Chloride (NS Flush) 2 ml BID IV FLUSH 09/19/17 21:00 09/25/17 21:00 Ondansetron HCl (Zofran Inj) 4 mg Q6H PRN IVP NAUSEA OR VOMITING 09/19/17 16:30 09/25/17 10:22 Atorvastatin Calcium (Lipitor) 40 mg HS PO 09/19/17 21:00 09/25/17 21:00 Acetaminophen/ Hydrocodone Bitart (York 5-325 Mg) 1 tab Q6H PRN PO BREAKTHROUGH PAIN 09/19/17 17:15 09/26/17 04:32 Metoprolol Tartrate (Lopressor) 25 mg BID PO 09/19/17 21:00 09/25/17 20:59 Zolpidem Tartrate (Ambien) 5 mg HS PRN PO insomnia 09/20/17 11:45 09/20/17 23:51 Senna/Docusate Sodium (Ramya-Colace) 2 tab BID PO 09/20/17 21:00 09/25/17 10:21 Lorazepam (Ativan Inj) 0.5 mg Q4H PRN IV PUSH anxiety 09/20/17 13:30 09/25/17 10:22 Sodium Chloride (NS Flush) DAILY IVF 09/22/17 09:00 09/23/17 10:15 Heparin Sodium (Porcine) (Heparin Central Flush) DAILY IV FLUSH 09/22/17 09:00 09/24/17 09:45 Pantoprazole Sodium (Protonix Inj) 40 mg Q24H IV PUSH 09/22/17 09:00 09/25/17 10:21 Acetaminophen (Tylenol) 650 mg Q4H PRN PO pain 2 - 10 09/22/17 21:45 09/22/17 21:53 Olanzapine (ZyPREXA) 5 mg DAILY PO 09/24/17 09:00 09/26/17 09:01 09/25/17 10:21 Dronabinol (Marinol) 5 mg BID@11,16 PO 09/24/17 11:00 09/25/17 13:02 Sodium Chloride 1,000 ml @ 0 mls/hr Q0M IV 09/24/17 15:30 09/26/17 05:06 Metronidazole 100 ml @ 100 mls/hr Q8H IV 09/26/17 02:00 09/26/17 01:51 Objective Remarks GENERAL APPEARANCE: Ms. Richard is an elderly lady, she is laying in bed, she appears to be in no acute distress, but is pale. HEENT: Head is atraumatic, normocephalic, conjunctive are pale, sclerae are anicteric, EOMI, PERRLA, oral exam no pharyngeal erythema. NECK: No palpable cervical or supraclavicular lymphadenopathy. RESPIRATORY: Poor inspiratory effort, decreased bibasilar breath sounds. no expiratory wheezes noted CARDIOVASCULAR: Regular rate and rhythm this morning. S1-S2. No obvious murmurs, rubs or gallops. ABDOMEN: Protuberant, soft, no obvious organ enlargement, positive bowel sounds. No obvious tenderness. LOWER EXTREMITIES: No pretibial edema or calf tenderness. MUSCULOSKELETAL: Generally decreased muscle mass, tone and strength. LEGAL FILE CLERK: No focal sensory or motor deficits. 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 She has had a total of 3 cycles of decitabine outpatient. Her last cycle was approximately 2 months ago. She was admitted with nausea and vomiting and was found to have circulating blasts at 71%. Plan 1. AML: Patient will have day #5 out of 5 Dacogen today. She continues to have significant nausea. Circulating blast percentage is about 70%. I anticipate her cytopenias will worsen over the next 2-3 weeks. She will likely require red cell and platelet transfusions. This will require close outpatient monitoring with at least twice weekly CBCs and when necessary transfusions. 2. For nausea she is now on kytril, olanzapine, marinol and compazine. SHe is also dosed with alprazolam as needed for anxiety. Given the non specific findings on EGD, I suspect the nausea may have an anxiety component to it. 3. Continue supportive care. 4. C. difficile colitis: I will discontinue IV metronidazole and put her on oral vancomycin in pill form. 5. A. fib with RVR: Continue rate control with beta blockers. Hold off on anticoagulation given the thrombocytopenia. Disposition: Proceed with final dose of Dacogen today. The patient prefers discharge to home with her daughter as opposed to a short- term rehabilitation facility. Roberto Yarbrough MD Sep 26, 2017 07:26
[2017-09-26] MEDS: LACTULOSE SYRUP 20 GM/30 ML CUP PO SCH (09:00)
[2017-09-26] MEDS: SODIUM CHLORIDE 0.9% FLUSH 10 ML FLUSH IVF SCH (09:00)
[2017-09-26] MEDS: DOCUSATE SODIUM 50 MG/SENNA 8.6 MG TAB PO SCH ×2 (09:00→20:01)
--- NOTE | 2017-09-26 09:31 | EKG ---
Date Performed: 09/25/2017 Time Performed: 21:36:14 PTAGE: 67 years EKG: Probable sinus tachycardia. Possible anterior infarct - age undetermined Inferior T wave ch anges are nonspecific Low QRS voltages in limb leads Abnormal ECG PREVIOUS TRACING : 09/21/2017 08.27 Compared to the prior study, the rate is faster. DOCTOR: Pedro Pablo Read Interpretating Date/Time 09/26/2017 09:29:00
[2017-09-26] MEDS: SODIUM CHLORIDE 0.9% FLUSH 10 ML FLUSH IV FLUSH SCH ×2 (10:06→20:02)
[2017-09-26] MEDS: OLANZapine 5 MG TAB PO SCH (10:07)
[2017-09-26] MEDS: PANTOPRAZOLE SODIUM 40 MG VIAL IV PUSH SCH (10:07)
[2017-09-26] MEDS: METOPROLOL TARTRATE 25 MG TAB PO SCH ×3 (10:07→21:55)
[2017-09-26] MEDS: metroNIDAZOLE 500 MG TAB PO SCH ×3 (10:13→18:00)
[2017-09-26] MEDS: ONDANSETRON HCL 4 MG/2 ML VIAL IVP PRN ×2 (10:13→15:35)
[2017-09-26] MEDS ORDERED: SODIUM CHLOR 0.9% 1000 ML INJ 1,000 ML IV ONE ×2 (10:30→19:45)
[2017-09-26] MEDS: DRONABINOL 5 MG CAP PO SCH ×2 (11:00→16:34)
--- NOTE | 2017-09-26 11:16 | HHI.PR ---
Subjective Remarks The patient is in bed she appears sleepy. Says she still with nausea and has some abdominal cramps. Not much diarrhea. Does not eat. Noted tachycardic. Received bolus IV fluids. Still with nausea no vomiting. No fever or chills. Objective Vitals Vital Signs Date Time Temp Pulse Resp B/P (MAP) Pulse Ox O2 Delivery O2 Flow Rate FiO2 09/26/17 10:57 71 09/26/17 08:00 98.9 81 18 91/60 (70) 94 09/26/17 08:00 73 09/26/17 06:00 76 09/26/17 05:30 18 09/26/17 05:04 77 09/26/17 04:19 98.2 127 16 105/62 (76) 93 09/26/17 03:58 120 09/26/17 03:00 122 09/26/17 02:00 124 09/26/17 01:00 124 09/26/17 00:28 119 106/61 (76) 09/26/17 00:23 120 104/70 (81) 09/26/17 00:20 121 98/62 (74) 09/26/17 00:13 98.6 120 18 106/73 (84) 99 09/26/17 00:05 124 09/25/17 23:00 122 09/25/17 22:21 128 16 93/63 (73) 99 09/25/17 22:00 128 09/25/17 21:00 134 09/25/17 19:48 140 09/25/17 19:40 97.6 140 18 97/56 (70) 95 09/25/17 18:20 133 16 92 09/25/17 17:50 145 16 84/51 (62) 93 09/25/17 12:45 98.4 135 16 94/61 (72) 95 I/O 09/25/17 09/25/17 09/25/17 09/26/17 09/26/17 09/26/17 07:00 15:00 23:00 07:00 15:00 23:00 Intake Total 840 ml Output Total 100 ml 550 ml Balance -100 ml 290 ml Intake Oral 840 ml Output Urine Total 100 ml 550 ml # Voids 1 1 # Bowel Movements 8 5 Result Diagram: 09/26/17 0433 09/24/17 0455 Imaging Last Impressions PICC Line Insertion 09/21/17 0000 Signed Impressions: Service Date/Time: Thursday, September 21, 2017 12:57 - CONCLUSION: 1. Uncomplicated central venous Power PICC line placement. 2. The PICC line can be used immediately. Roger Fowler MD Chest X-Ray 09/19/17 0000 Signed Impressions: Service Date/Time: Tuesday, September 19, 2017 20:52 - CONCLUSION: 1. Minimal basilar atelectasis or scarring. Mild cardiomegaly. No effusion or pneumothorax. Rivas Tejeda MD Abdomen/Pelvis CT 09/19/17 0000 Signed Impressions: Service Date/Time: Tuesday, September 19, 2017 23:27 - CONCLUSION: 1. No acute findings. Mild sigmoid diverticula. 2. Stable size to the 3.1 cm mid abdominal aortic aneurysm. Yared Sethi MD Objective Remarks GENERAL: in NAD but looks uncomfortable due to feeling nauseous. CARDIOVASCULAR: Regular rate and rhythm without murmurs, gallops, or rubs. RESPIRATORY: Breath sounds equal bilaterally. No accessory muscle use. GASTROINTESTINAL: Abdomen soft, non-tender, nondistended. MUSCULOSKELETAL: No cyanosis, or edema. BACK: Nontender without obvious deformity. No CVA tenderness. A/P Assessment and Plan 67-year-old female admitted due to intractable emesis Intractable emesis/nausea. -Occurred 2 months ago after chemotherapy. -Patient was recently hospitalized in [place] and was on multiple anti-medics medications with no relief. She returned to the hospital since the symptoms are not resolved. -EGD done on 09/21 showing severe gastritis and duodenitis. GI order stool H pylori and recommend Protonix. -Patient on Protonix with improvement of nausea and emesis. Anxiety. Add Ativan AML -Appreciate oncologist recommendation. -Status post PICC placement and then be treated with initiation of Dacogen at 20 mg/m2 IV on days 1-7. Hypertension/COPD/atrial fibrillation/hypothyroidism/seizure disorder - Continue with home medication. Anemia -Hemoglobin decreased from 9-7.6. -No active bleeding. -May be hemoconcentrated. -Oncologist consulted. Will transfuse if hemoglobin less than 7 or symptomatic. Constipation -Patient on stool softener. Prior she was unable to take oral intake but symptoms are improving with Protonix. Will continue with her schedule Ramya- Colace and schedule lactulose. DVT prophylaxis with Lovenox. DC when cleared by oncology. Lydia Bright MD Sep 26, 2017 11:16
[2017-09-26] MEDS: GRANISETRON HCL 1 MG/ML VIAL IV PUSH SCH (17:17)
[2017-09-26] MEDS ORDERED: GRANISETRON HCL 1 MG/ML VIAL IV PUSH SCH (17:41)
[2017-09-26] MEDS ORDERED: SODIUM CHLOR 0.9% IV SCH (18:00)
[2017-09-26] MEDS ORDERED: DECITABINE IV SCH (18:00)
--- NOTE | 2017-09-26 19:18 | PD.ID.CON ---
History of Present Illness Service Infectious disease Consult Requested By Dr. Bright Reason for Consult Evaluation and management of C. difficile in a patient intolerant of oral options, immune compromised patient. Primary Care Physician Unknown Diagnoses: History of Present Illness Ms. Richard is a very pleasant 67-year-old female of [place] origin. She is known to [facility] . 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 Per review of notes, based on bone marrow biopsy findings, she was found to have a background of myelodysplasia. She was a poor candidate for intense systemic chemotherapy with 7+3 due to her advanced COPD and at the time A. Fib with RVR. She was therefore treated with Dacogen and responded quite well to this treatment with significant reduction in circulating leukemic blasts. Following that, she received two additional outpatient doses of Dacogen for a total of three. Over the past 2-1/2 months, she has had a series of hospitalizations (two at [facility] and one at [facility]) for symptoms ranging from anal fissures to nausea and vomiting. She comes into the hospital at this time with complaints of nausea, vomiting, abdominal pain, constipation and inability to hold down solids and liquids. She was noted to have an elevated WBC count of 20.5 with ANC of 0.8 and circulating blasts. Patient was thought to have resurgence of her leukemia. Patient was seen by GI and underwent endoscopies. She also had Cdiff tested for period of diarrhea and is positive for Cdiff (BNAP negative). Patient was started on Oral flagyl but since patient has persistent N/V this was switched to IV Flagyl and ID consulted for evaluation and Mment of Cdiff in Immune compromised patient given oral route options cannot be tolerated. EGD findings of following: Mild esophagitis Severe gastritis mostly in the body of the stomach Severe duodenitis Patient willing to try oral vanco in am as it is a liquid formulation. Review of Systems Constitutional: DENIES: Diaphoretic episodes, Fatigue, Fever, Weight gain, Weight loss, Chills, Dizziness, Change in appetite, Night Sweats Endocrine: DENIES: Abnorml menstrual pattern, Heat/cold intolerance, Polydipsia , Polyuria, Polyphagia Eyes: DENIES: Blurred vision, Diplopia, Eye inflammation, Eye pain, Vision loss , Photosensitivity, Double Vision Ears, nose, mouth, throat: DENIES: Tinnitus, Hearing loss, Vertigo, Nasal discharge, Oral lesions, Throat pain, Hoarseness, Ear Pain, Running Nose, Epistaxis, Sinus Pain, Toothache, Odynophagia Respiratory: DENIES: Apneas, Cough, Snoring, Wheezing, Hemoptysis, Sputum production, Shortness of breath Cardiovascular: DENIES: Chest pain, Palpitations, Syncope, Dyspnea on Exertion , PND, Lower Extremity Edema, Orthopnea, Claudication Gastrointestinal: COMPLAINS OF: Nausea, Vomiting, DENIES: Abdominal pain, Black stools, Bloody stools, Constipation, Diarrhea, Difficulty Swallowing, Anorexia Genitourinary: DENIES: Abnormal vaginal bleeding, Dysmenorrhea, Dyspareunia, Sexual dysfunction, Urinary frequency, Urinary incontinence, Urgency, Hematuria , Dysuria, Nocturia, Vaginal discharge Musculoskeletal: DENIES: Joint pain, Muscle aches, Stiffness, Joint Swelling, Back pain, Neck pain Integumentary: DENIES: Abnormal pigmentation, Pruritus, Rash, Nail changes, Breast masses, Breast skin changes, Nipple discharge Hematologic/lymphatic: DENIES: Bruising, Lymphadenopathy Immunologic/allergic: DENIES: Eczema, Urticaria Neurologic: DENIES: Abnormal gait, Headache, Localized weakness, Paresthesias, Seizures, Speech Problems, Tremor, Poor Balance Psychiatric: COMPLAINS OF: Anxiety Except as stated in HPI: all other systems reviewed are Neg Past Family Social History Allergies: Coded Allergies: penicillin G (Verified Allergy, Severe, 09/19/17) aspirin (Verified Allergy, Unknown, "MAKES MY STOMACH HURT A BIT", 09/19/17 ) Past Medical History 1. 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 2. COPD 3. Atrial fibrillation 4. Anxiety 5. Chronic nausea 6. Hypothyroidism 7. History of obesity. 8. Personal history of tobaccoism. Past Surgical History 1. Appendectomy 2. Bone marrow biopsy and aspiration. 3. section 4. Varicose vein surgery 5. Colonoscopy Reported Medications Reported Meds & Active Scripts Active Hydrocodone-Acetamin 5-325 mg (Hydrocodone/Acetaminophen) 5 Mg-325 Mg Tablet 1 Tab PO Q6H PRN Reported Atorvastatin (Atorvastatin Calcium) 40 Mg Tab 40 Mg PO HS Metoprolol Tartrate 25 Mg Tab 25 Mg PO BID Active Ordered Medications Current Medications Medications (Trade) Dose Ordered Sig/Tylor Route Start Time Stop Time Status Last Admin (NS Flush) 2 ml UNSCH PRN IV FLUSH 09/19/17 16:30 09/26/17 17:17 (NS Flush) 2 ml BID IV FLUSH 09/19/17 21:00 09/26/17 10:06 (Zofran Inj) 4 mg Q6H PRN IVP 09/19/17 16:30 09/26/17 15:35 (Narcan Inj) 0.4 mg UNSCH PRN IV PUSH 09/19/17 16:30 (Duoneb Neb) 1 ampule Q2HR NEB PRN NEB 09/19/17 16:30 (Lipitor) 40 mg HS PO 09/19/17 21:00 09/25/17 21:00 ([place]mberg 5-325 Mg) 1 tab Q6H PRN PO 09/19/17 17:15 09/26/17 16:36 (Lopressor) 25 mg BID PO 09/19/17 21:00 09/26/17 11:55 (Ambien) 5 mg HS PRN PO 09/20/17 11:45 09/20/17 23:51 (Ramya-Colace) 2 tab BID PO 09/20/17 21:00 09/25/17 10:21 (Ativan Inj) 0.5 mg Q4H PRN IV PUSH 09/20/17 13:30 09/25/17 10:22 (NS Flush) DAILY IVF 09/22/17 09:00 09/23/17 10:15 (Heparin Central Flush) DAILY IV FLUSH 09/22/17 09:00 09/24/17 09:45 (NS Flush) UNSCH PRN IVF 09/21/17 12:45 (Heparin Central Flush) UNSCH PRN IV FLUSH 09/21/17 12:45 (NS Flush) UNSCH PRN IVF 09/21/17 12:45 (Protonix Inj) 40 mg Q24H IV PUSH 09/22/17 09:00 09/26/17 10:07 (Tylenol) 650 mg Q4H PRN PO 09/22/17 21:45 09/22/17 21:53 (Lactulose Liq) 30 ml DAILY PO 09/24/17 09:00 (Marinol) 5 mg BID@11,16 PO 09/24/17 11:00 09/26/17 16:34 Sodium Chloride 1,000 ml @ 0 mls/hr Q0M IV 09/24/17 15:30 09/26/17 05:06 (Flagyl) 500 mg Q6HR PO 09/26/17 07:15 09/26/17 11:20 Family History Reviewed and noncontributory to infectious disease problems. Social History Originally from [place]. Physical Exam Vital Signs Vital Signs Date Time Temp Pulse Resp B/P (MAP) Pulse Ox O2 Delivery O2 Flow Rate FiO2 09/26/17 18:49 96/60 (72) 09/26/17 16:00 68 09/26/17 15:23 98.3 72 20 103/65 (78) 97 09/26/17 12:00 77 09/26/17 11:56 115/74 (88) 09/26/17 11:22 98.2 78 18 111/59 (76) 95 09/26/17 10:57 71 09/26/17 08:00 98.9 81 18 91/60 (70) 94 09/26/17 08:00 73 09/26/17 06:00 76 09/26/17 05:30 18 09/26/17 05:04 77 09/26/17 04:19 98.2 127 16 105/62 (76) 93 09/26/17 03:58 120 09/26/17 03:00 122 09/26/17 02:00 124 09/26/17 01:00 124 09/26/17 00:28 119 106/61 (76) 09/26/17 00:23 120 104/70 (81) 09/26/17 00:20 121 98/62 (74) 09/26/17 00:13 98.6 120 18 106/73 (84) 99 09/26/17 00:05 124 09/25/17 23:00 122 09/25/17 22:21 128 16 93/63 (73) 99 09/25/17 22:00 128 09/25/17 21:00 134 09/25/17 19:48 140 09/25/17 19:40 97.6 140 18 97/56 (70) 95 Physical Exam GENERAL: This is a well-nourished, well-developed patient, in no apparent distress. SKIN: No rashes, ecchymoses or lesions. Cool and dry. HEAD: Atraumatic. Normocephalic. No temporal or scalp tenderness. EYES: Pupils equal round and reactive. Extraocular motions intact. No scleral icterus. No injection or drainage. ENT: Nose without bleeding, purulent drainage or septal hematoma. Throat without erythema, tonsillar hypertrophy or exudate. Uvula midline. Airway patent. NECK: Trachea midline. No JVD or lymphadenopathy. Supple, nontender, no meningeal signs. CARDIOVASCULAR: Regular rate and rhythm without murmurs, gallops, or rubs. RESPIRATORY: Clear to auscultation. Breath sounds equal bilaterally. No wheezes , rales, or rhonchi. GASTROINTESTINAL: Abdomen soft, diffuse tenderness no rebound no guarding or rigidity. MUSCULOSKELETAL: Extremities without clubbing, cyanosis, or edema. No joint tenderness, effusion, or edema noted. No calf tenderness. Negative Homans sign bilaterally. NEUROLOGICAL: Awake and alert. Cranial nerves II through XII intact. Motor and sensory grossly within normal limits. Five out of 5 muscle strength in all muscle groups. Normal speech. PICC line in place with no evidence of infection Psych cooperative Laboratory Laboratory Tests Test 09/25/17 21:45 09/26/17 04:33 Stool C. difficile Toxin (PCR) POSITIVE Stl C. difficile Toxin Epiderm 027 PRESUMPTIVE NEGATIVE White Blood Count 11.1 Red Blood Count 2.77 Hemoglobin 8.7 Hematocrit 25.9 Mean Corpuscular Volume 93.6 Mean Corpuscular Hemoglobin 31.4 Mean Corpuscular Hemoglobin Concent 33.5 Red Cell Distribution Width 21.3 Platelet Count 17 Mean Platelet Volume 8.9 CBC Comment AUTO DIFF Differential Total Cells Counted 100 Neutrophils % (Manual) 16 Band Neutrophils % 1 Lymphocytes % 10 Monocytes % 2 Neutrophils # (Manual) 1.9 Differential Comment FINAL DIFF MANUAL Blastocytes 71 Platelet Estimate LOW Platelet Morphology Comment NORMAL Ovalocytes 1+ Date/Time Source Procedure Growth Status 09/20/17 05:53 Blood Peripheral Aerobic Blood Culture - Final NO GROWTH IN 5 DAYS Complete 09/20/17 05:53 Blood Peripheral Anaerobic Blood Culture - Final NO GROWTH IN 5 DAYS Complete Result Diagram: 09/26/17 0433 09/24/17 0455 Imaging Last Impressions PICC Line Insertion 09/21/17 0000 Signed Impressions: Service Date/Time: Thursday, September 21, 2017 12:57 - CONCLUSION: 1. Uncomplicated central venous Power PICC line placement. 2. The PICC line can be used immediately. Roger Fowler MD Chest X-Ray 09/19/17 0000 Signed Impressions: Service Date/Time: Tuesday, September 19, 2017 20:52 - CONCLUSION: 1. Minimal basilar atelectasis or scarring. Mild cardiomegaly. No effusion or pneumothorax. Rivas Tejeda MD Abdomen/Pelvis CT 09/19/17 0000 Signed Impressions: Service Date/Time: Tuesday, September 19, 2017 23:27 - CONCLUSION: 1. No acute findings. Mild sigmoid diverticula. 2. Stable size to the 3.1 cm mid abdominal aortic aneurysm. Yared Sethi MD Assessment and Plan Assessment and Plan Cdiff diarrhea Severe Gastritis and duodenitis as cause for Persistent N/V vs Chemo related. AML on Chemotherapy Thrombocytopenia and anemia. Leucocytosis: Cdiff related. Hypotension: meds and metoprolol related. PICC line in place for chemotherapy. Recs: Continue IV Flagyl Discontinue oral Flagyl which can contribute to nausea and vomiting Patient agreeable to starting oral vancomycin liquid formulation in the a.m. We will follow along with you. Kassidy Morfin MD Sep 26, 2017 19:18
[2017-09-26] MEDS ORDERED: METRONIDAZOLE 500 MG/100 ML ISONTONIC SOLN IV SCH (20:00)
[2017-09-26] MEDS: ATORVASTATIN 40 MG TAB PO SCH (20:01)
[2017-09-26] MEDS: metroNIDAZOLE 500 MG INJ 100 ML IV SCH (21:51)
[2017-09-27] VITALS (20 sets, daily range): BP systolic 93–114; BP diastolic 54–72; PULSE 66–116; RESP 15–16; TEMP 96.4–98.3; O2SAT 92–98
[2017-09-27] MEDS: metroNIDAZOLE 500 MG INJ 100 ML IV SCH ×2 (05:05→13:21)
[2017-09-27] MEDS: ONDANSETRON HCL 4 MG/2 ML VIAL IVP PRN (05:40)
[2017-09-27 06:20] LABS: HEMATOCRIT 25.2 % (35.0-46.0); HEMOGLOBIN 8.5 GM/DL (11.6-15.3); MEAN CELL VOLUME 93.5 FL (80.0-100.0); MEAN CORPUSCULAR HEMOGLOBIN 31.6 PG (27.0-34.0); MEAN CORPUSCULAR HGB CONC 33.8 % (32.0-36.0); MEAN PLATELET VOLUME 9.3 FL (7.0-11.0); RED CELL DISTRIBUTION WIDTH 21.7 % (11.6-17.2); WHITE BLOOD COUNT 11.4 TH/MM3 (4.0-11.0)
[2017-09-27 06:39] LABS: PLATELET COUNT 18 TH/MM3 (150-450)
[2017-09-27 06:53] LABS: BICARBONATE 24.1 MEQ/L (21.0-32.0); CALCIUM 7.2 MG/DL (8.5-10.1); CREATININE 0.79 MG/DL (0.50-1.00); MAGNESIUM 1.4 MG/DL (1.5-2.5)
[2017-09-27 07:23] LABS: CALCIUM-PROTEIN CORRECTED 8.6 MG/DL (8.5-10.1); TOTAL PROTEIN 4.6 GM/DL (6.4-8.2)
[2017-09-27] MEDS: LACTULOSE SYRUP 20 GM/30 ML CUP PO SCH (09:00)
[2017-09-27] MEDS: SODIUM CHLORIDE 0.9% FLUSH 10 ML FLUSH IV FLUSH SCH ×2 (09:00→19:56)
[2017-09-27] MEDS: DOCUSATE SODIUM 50 MG/SENNA 8.6 MG TAB PO SCH ×2 (09:00→19:55)
[2017-09-27] MEDS: METOPROLOL TARTRATE 25 MG TAB PO SCH ×2 (09:00→19:54)
[2017-09-27] MEDS: VANCOMYCIN 500 MG VIAL (FOR ORAL USE ONLY) PO SCH ×4 (09:28→19:54)
[2017-09-27] MEDS: PANTOPRAZOLE SODIUM 40 MG VIAL IV PUSH SCH (09:29)
[2017-09-27] MEDS: SODIUM CHLORIDE 0.9% FLUSH 10 ML FLUSH IVF SCH (09:29)
[2017-09-27 10:36] LABS: BLASTS 79 % (0-0); LYMPHOCYTES 17 % (9-44); MONOCYTES 1 % (0-8); NEUTROPHIL # MANUAL DIFF 0.2 TH/MM3 (1.8-7.7); PLASMA CELLS 1 % (0-0); POLYS (SEG NEUTROPHILS) 2 % (16-70)
[2017-09-27 10:37] LABS: ACANTHOCYTES OCC (NORMAL); KERATOCYTES OCC (NORMAL); OVALOCYTES 1+ (NORMAL)
[2017-09-27] MEDS: DRONABINOL 5 MG CAP PO SCH ×2 (10:53→18:45)
--- NOTE | 2017-09-27 14:19 | HHI.PR ---
Subjective Remarks The patient is still nauseated did not vomit. Not able to eat. Appetite is decreased. No fever or chills. Says diarrhea improved and she had a form bowel movement yesterday. She is not tolerating by mouth Flagyl. Objective Vitals Vital Signs Date Time Temp Pulse Resp B/P (MAP) Pulse Ox O2 Delivery O2 Flow Rate FiO2 09/27/17 13:27 98.2 100 16 99/68 (78) 96 09/27/17 08:00 98.0 110 16 93/60 (71) 95 09/27/17 05:02 98.3 75 16 114/72 (86) 96 09/26/17 23:01 98.5 119 16 119/70 (86) 94 09/26/17 21:56 125 113/66 (82) 09/26/17 21:30 109 92/54 (67) 09/26/17 21:00 111 87/54 (65) 09/26/17 20:30 112 09/26/17 20:30 91/56 (68) 09/26/17 20:01 115 91/55 (67) 09/26/17 19:45 77/43 (54) 09/26/17 18:49 96/60 (72) 09/26/17 16:00 68 09/26/17 15:23 98.3 72 20 103/65 (78) 97 I/O 09/26/17 09/26/17 09/26/17 09/27/17 09/27/17 09/27/17 07:00 15:00 23:00 07:00 15:00 23:00 Intake Total 1000 ml 2135 ml 240 ml Output Total 1200 ml Balance 1000 ml 935 ml 240 ml Intake Oral 800 ml 240 ml IV Total 1000 ml 1335 ml Output Urine Total 1200 ml # Voids 1 2 1 # Bowel Movements 5 Result Diagram: 09/27/17 0540 09/27/17 0540 Imaging Last Impressions PICC Line Insertion 09/21/17 0000 Signed Impressions: Service Date/Time: Thursday, September 21, 2017 12:57 - CONCLUSION: 1. Uncomplicated central venous Power PICC line placement. 2. The PICC line can be used immediately. Roger Fowler MD Chest X-Ray 09/19/17 0000 Signed Impressions: Service Date/Time: Tuesday, September 19, 2017 20:52 - CONCLUSION: 1. Minimal basilar atelectasis or scarring. Mild cardiomegaly. No effusion or pneumothorax. Rivas Tejeda MD Abdomen/Pelvis CT 09/19/17 0000 Signed Impressions: Service Date/Time: Tuesday, September 19, 2017 23:27 - CONCLUSION: 1. No acute findings. Mild sigmoid diverticula. 2. Stable size to the 3.1 cm mid abdominal aortic aneurysm. Yared Sethi MD Objective Remarks GENERAL: in NAD but looks uncomfortable due to feeling nauseous. CARDIOVASCULAR: Regular rate and rhythm without murmurs, gallops, or rubs. RESPIRATORY: Breath sounds equal bilaterally. No accessory muscle use. GASTROINTESTINAL: Abdomen soft, non-tender, nondistended. MUSCULOSKELETAL: No cyanosis, or edema. BACK: Nontender without obvious deformity. No CVA tenderness. A/P Assessment and Plan 67-year-old female admitted due to intractable emesis Intractable emesis/nausea. -Occurred 2 months ago after chemotherapy. -Patient was recently hospitalized in [place] and was on multiple anti-medics medications with no relief. She returned to the hospital since the symptoms are not resolved. -EGD done on 09/21 showing severe gastritis and duodenitis. GI order stool H pylori and recommend Protonix. -Patient on Protonix, antiemetics, with some improvement of nausea and emesis. C. difficile colitis: Can't tolerate po flagyl, continue IV metronidazole. Anxiety. Add Ativan AML -Appreciate oncologist recommendation. -Status post PICC placement and then be treated with initiation of Dacogen at 20 mg/m2 IV on days 1-7. Hypertension/COPD/atrial fibrillation/hypothyroidism/seizure disorder - Continue with home medication. Anemia -Hemoglobin decreased from 9-7.6. -No active bleeding. -May be hemoconcentrated. -Oncologist consulted. Will transfuse if hemoglobin less than 7 or symptomatic. Constipation -Patient on stool softener. Prior she was unable to take oral intake but symptoms are improving with Protonix. Will continue with her schedule Ramya- Colace and schedule lactulose. DVT prophylaxis with Lovenox. DC when improved and cleared by oncology. Lydia Bright MD Sep 27, 2017 14:19
--- NOTE | 2017-09-27 17:05 | HHI.IDPN ---
Subjective Subjective Remarks Ms. Richard is a very pleasant 67-year-old female of [place] origin. She is known to [facility] . 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 Per review of notes, based on bone marrow biopsy findings, she was found to have a background of myelodysplasia. She was a poor candidate for intense systemic chemotherapy with 7+3 due to her advanced COPD and at the time A. Fib with RVR. She was therefore treated with Dacogen and responded quite well to this treatment with significant reduction in circulating leukemic blasts. Following that, she received two additional outpatient doses of Dacogen for a total of three. Over the past 2-1/2 months, she has had a series of hospitalizations (two at [facility] and one at [facility]) for symptoms ranging from anal fissures to nausea and vomiting. She comes into the hospital at this time with complaints of nausea, vomiting, abdominal pain, constipation and inability to hold down solids and liquids. She was noted to have an elevated WBC count of 20.5 with ANC of 0.8 and circulating blasts. Patient was thought to have resurgence of her leukemia. Patient was seen by GI and underwent endoscopies. She also had Cdiff tested for period of diarrhea and is positive for Cdiff (BNAP negative). Patient was started on Oral flagyl but since patient has persistent N/V this was switched to IV Flagyl and ID consulted for evaluation and Mment of Cdiff in Immune compromised patient given oral route options cannot be tolerated. EGD findings of following: Mild esophagitis Severe gastritis mostly in the body of the stomach Severe duodenitis ID following for Cdiff in IC pt. Overnight events reviewed. No fever No rash no diarrhea Antibiotics Flagyl IV Vanco oral Lines Line sites with no e.o infection Past Medical History 1. 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 2. COPD 3. Atrial fibrillation 4. Anxiety 5. Chronic nausea 6. Hypothyroidism 7. History of obesity. 8. Personal history of tobaccoism. Past Surgical History 1. Appendectomy 2. Bone marrow biopsy and aspiration. 3. section 4. Varicose vein surgery 5. Colonoscopy Allergies: Coded Allergies: penicillin G (Verified Allergy, Severe, 09/19/17) aspirin (Verified Allergy, Unknown, "MAKES MY STOMACH HURT A BIT", 09/19/17 ) Objective . Vital Signs Date Time Temp Pulse Resp B/P (MAP) Pulse Ox O2 Delivery O2 Flow Rate FiO2 09/27/17 13:27 98.2 100 16 99/68 (78) 96 09/27/17 08:00 98.0 110 16 93/60 (71) 95 09/27/17 05:02 98.3 75 16 114/72 (86) 96 09/26/17 23:01 98.5 119 16 119/70 (86) 94 09/26/17 21:56 125 113/66 (82) 09/26/17 21:30 109 92/54 (67) 09/26/17 21:00 111 87/54 (65) 09/26/17 20:30 112 09/26/17 20:30 91/56 (68) 09/26/17 20:01 115 91/55 (67) 09/26/17 19:45 77/43 (54) 09/26/17 18:49 96/60 (72) . Laboratory Tests Test 09/26/17 04:33 09/27/17 05:40 White Blood Count 11.1 TH/MM3 11.4 TH/MM3 Red Blood Count 2.77 MIL/MM3 2.70 MIL/MM3 Hemoglobin 8.7 GM/DL 8.5 GM/DL Hematocrit 25.9 % 25.2 % Mean Corpuscular Volume 93.6 FL 93.5 FL Mean Corpuscular Hemoglobin 31.4 PG 31.6 PG Mean Corpuscular Hemoglobin Concent 33.5 % 33.8 % Red Cell Distribution Width 21.3 % 21.7 % Platelet Count 17 TH/MM3 18 TH/MM3 Mean Platelet Volume 8.9 FL 9.3 FL CBC Comment AUTO DIFF AUTO DIFF Differential Total Cells Counted 100 100 Neutrophils % (Manual) 16 % 2 % Band Neutrophils % 1 % Lymphocytes % 10 % 17 % Monocytes % 2 % 1 % Neutrophils # (Manual) 1.9 TH/MM3 0.2 TH/MM3 Differential Comment FINAL DIFF MANUAL FINAL DIFF MANUAL Blastocytes 71 % 79 % Platelet Estimate LOW RARE Platelet Morphology Comment NORMAL NORMAL Ovalocytes 1+ 1+ Plasma Cells 1 % Acanthocytes OCC Keratocytes OCC Laboratory Tests Test 09/27/17 05:40 Blood Urea Nitrogen 6 MG/DL Creatinine 0.79 MG/DL Random Glucose 81 MG/DL Total Protein 4.6 GM/DL Calcium Level 7.2 MG/DL Magnesium Level 1.4 MG/DL Sodium Level 141 MEQ/L Potassium Level 2.7 MEQ/L Chloride Level 108 MEQ/L Carbon Dioxide Level 24.1 MEQ/L Anion Gap 9 MEQ/L Estimat Glomerular Filtration Rate 72 ML/MIN Protein Corrected Calcium 8.6 MG/DL Imaging Last Impressions PICC Line Insertion 09/21/17 0000 Signed Impressions: Service Date/Time: Thursday, September 21, 2017 12:57 - CONCLUSION: 1. Uncomplicated central venous Power PICC line placement. 2. The PICC line can be used immediately. Roger Fowler MD Chest X-Ray 09/19/17 0000 Signed Impressions: Service Date/Time: Tuesday, September 19, 2017 20:52 - CONCLUSION: 1. Minimal basilar atelectasis or scarring. Mild cardiomegaly. No effusion or pneumothorax. Rivas Tejeda MD Abdomen/Pelvis CT 09/19/17 0000 Signed Impressions: Service Date/Time: Tuesday, September 19, 2017 23:27 - CONCLUSION: 1. No acute findings. Mild sigmoid diverticula. 2. Stable size to the 3.1 cm mid abdominal aortic aneurysm. Yared Sethi MD Physical Exam GENERAL: This is a well-nourished, well-developed patient, in no apparent distress. SKIN: No rashes, ecchymoses or lesions. Cool and dry. HEAD: Atraumatic. Normocephalic. No temporal or scalp tenderness. EYES: Pupils equal round and reactive. Extraocular motions intact. No scleral icterus. No injection or drainage. ENT: Nose without bleeding, purulent drainage or septal hematoma. Throat without erythema, tonsillar hypertrophy or exudate. Uvula midline. Airway patent. NECK: Trachea midline. No JVD or lymphadenopathy. Supple, nontender, no meningeal signs. CARDIOVASCULAR: Regular rate and rhythm without murmurs, gallops, or rubs. RESPIRATORY: Clear to auscultation. Breath sounds equal bilaterally. No wheezes , rales, or rhonchi. GASTROINTESTINAL: Abdomen soft, diffuse tenderness no rebound no guarding or rigidity. MUSCULOSKELETAL: Extremities without clubbing, cyanosis, or edema. No joint tenderness, effusion, or edema noted. No calf tenderness. Negative Homans sign bilaterally. NEUROLOGICAL: Awake and alert. Cranial nerves II through XII intact. Motor and sensory grossly within normal limits. Five out of 5 muscle strength in all muscle groups. Normal speech. PICC line in place with no evidence of infection Psych cooperative Assessment & Plan Remarks Cdiff diarrhea Severe Gastritis and duodenitis as cause for Persistent N/V vs Chemo related. AML on Chemotherapy Thrombocytopenia and anemia. Leucocytosis: Cdiff related. Hypotension: meds and metoprolol related. PICC line in place for chemotherapy. Recs: DC IV Flagyl can contribute to nausea and vomiting Tolerated oral vanco. Continues to have nausea and abdominal pain discomfort in epigastric region despite Marinol. [place] Desai: will start Carafate. Please make sure meds are spaced apart as it is a binding agent. We will follow along with you. Kassidy Yañez MD Sep 27, 2017 17:05
[2017-09-27] MEDS: SUCRALFATE 1 GM/10 ML CUP PO SCH ×2 (18:45→21:46)
[2017-09-27] MEDS: ATORVASTATIN 40 MG TAB PO SCH (19:54)
[2017-09-27] MEDS ORDERED: MAGNESIUM SULFATE 1 GM PREMIX 100 ML IV ONE (20:30)
--- NOTE | 2017-09-27 20:43 | PD.ONC.PN ---
Subjective Subjective Remarks Pt seen and examined at 7:45 pm. Vitals, labs, meds and hospitalist's notes reviewed. The pt reports symptoms of persistent nausea, she has had belching but no significant vomiting. She has not had much of an appetite and reports having had only pudding over the past 2 days. She reports having been in bed mostly. She denies fevers or chills, she denies difficulty breathing or chest pain. She denies overt bleeding. Her diarrhea has resolved and she denies having had a watery BM today. She expresses frustration at the persistent nature of her nausea and lack of improvement. Marinol seems to help marginally, but the relief lasts less than 1 hour. Objective Data Date Time Temp Pulse Resp B/P (MAP) Pulse Ox O2 Delivery O2 Flow Rate FiO2 09/27/17 18:43 96.4 88 16 96/54 (68) 98 09/27/17 18:32 106 09/27/17 16:00 72 09/27/17 15:00 112 09/27/17 14:00 114 09/27/17 13:27 98.2 100 16 99/68 (78) 96 09/27/17 13:00 116 09/27/17 12:00 84 09/27/17 11:00 110 09/27/17 10:00 106 09/27/17 09:00 106 09/27/17 08:00 68 09/27/17 08:00 98.0 110 16 93/60 (71) 95 09/27/17 05:02 98.3 75 16 114/72 (86) 96 09/26/17 23:01 98.5 119 16 119/70 (86) 94 09/26/17 21:56 125 113/66 (82) 09/26/17 21:30 109 92/54 (67) 09/26/17 21:00 111 87/54 (65) 09/27/17 09/27/17 09/27/17 07:00 15:00 23:00 Intake Total 240 ml 100 ml 960 ml Balance 240 ml 100 ml 960 ml Result Diagram: 09/27/17 0540 09/27/17 0540 Laboratory Results Laboratory Tests Test 09/27/17 05:40 White Blood Count 11.4 TH/MM3 Red Blood Count 2.70 MIL/MM3 Hemoglobin 8.5 GM/DL Hematocrit 25.2 % Mean Corpuscular Volume 93.5 FL Mean Corpuscular Hemoglobin 31.6 PG Mean Corpuscular Hemoglobin Concent 33.8 % Red Cell Distribution Width 21.7 % Platelet Count 18 TH/MM3 Mean Platelet Volume 9.3 FL CBC Comment AUTO DIFF Differential Total Cells Counted 100 Neutrophils % (Manual) 2 % Lymphocytes % 17 % Monocytes % 1 % Neutrophils # (Manual) 0.2 TH/MM3 Differential Comment FINAL DIFF MANUAL Blastocytes 79 % Plasma Cells 1 % Platelet Estimate RARE Platelet Morphology Comment NORMAL Ovalocytes 1+ Acanthocytes OCC Keratocytes OCC Blood Urea Nitrogen 6 MG/DL Creatinine 0.79 MG/DL Random Glucose 81 MG/DL Total Protein 4.6 GM/DL Calcium Level 7.2 MG/DL Magnesium Level 1.4 MG/DL Sodium Level 141 MEQ/L Potassium Level 2.7 MEQ/L Chloride Level 108 MEQ/L Carbon Dioxide Level 24.1 MEQ/L Anion Gap 9 MEQ/L Estimat Glomerular Filtration Rate 72 ML/MIN Protein Corrected Calcium 8.6 MG/DL Administered Medications Medications (Trade) Dose Ordered Sig/Tylor Route PRN Reason Start Time Stop Time Status Last Admin Dose Admin Sodium Chloride (NS Flush) 2 ml UNSCH PRN IV FLUSH FLUSH AFTER USING IV ACCESS 09/19/17 16:30 09/26/17 17:17 Sodium Chloride (NS Flush) 2 ml BID IV FLUSH 09/19/17 21:00 09/27/17 19:56 Ondansetron HCl (Zofran Inj) 4 mg Q6H PRN IVP NAUSEA OR VOMITING 09/19/17 16:30 09/27/17 05:40 Atorvastatin Calcium (Lipitor) 40 mg HS PO 09/19/17 21:00 09/27/17 19:54 Acetaminophen/ Hydrocodone Bitart (Isabella 5-325 Mg) 1 tab Q6H PRN PO BREAKTHROUGH PAIN 09/19/17 17:15 09/26/17 23:02 Metoprolol Tartrate (Lopressor) 25 mg BID PO 09/19/17 21:00 09/27/17 19:54 Zolpidem Tartrate (Ambien) 5 mg HS PRN PO insomnia 09/20/17 11:45 09/20/17 23:51 Senna/Docusate Sodium (Ramya-Colace) 2 tab BID PO 09/20/17 21:00 09/25/17 10:21 Lorazepam (Ativan Inj) 0.5 mg Q4H PRN IV PUSH anxiety 09/20/17 13:30 09/25/17 10:22 Sodium Chloride (NS Flush) DAILY IVF 09/22/17 09:00 09/27/17 09:29 Heparin Sodium (Porcine) (Heparin Central Flush) DAILY IV FLUSH 09/22/17 09:00 09/27/17 09:28 Pantoprazole Sodium (Protonix Inj) 40 mg Q24H IV PUSH 09/22/17 09:00 09/27/17 09:29 Acetaminophen (Tylenol) 650 mg Q4H PRN PO pain 2 - 10 09/22/17 21:45 09/22/17 21:53 Dronabinol (Marinol) 5 mg BID@11,16 PO 09/24/17 11:00 09/27/17 18:45 Sodium Chloride 1,000 ml @ 0 mls/hr Q0M IV 09/24/17 15:30 09/26/17 05:06 Vancomycin HCl (VANCOMYCIN for oral use only) 125 mg QID PO 09/27/17 09:00 09/27/17 19:54 Sucralfate (Carafate Liq) 1 gm ACHS PO 09/27/17 17:15 09/27/17 18:45 Objective Remarks GENERAL APPEARANCE: Ms. Richard is an elderly lady, she is laying in bed, she appears to be in no acute distress, but is pale. HEENT: Head is atraumatic, normocephalic, conjunctive are pale, sclerae are anicteric, EOMI, PERRLA, oral exam no pharyngeal erythema. NECK: No palpable cervical or supraclavicular lymphadenopathy. RESPIRATORY: Poor inspiratory effort, decreased bibasilar breath sounds. no expiratory wheezes noted CARDIOVASCULAR: Regular rate and rhythm this morning. S1-S2. No obvious murmurs, rubs or gallops. ABDOMEN: Protuberant, soft, no obvious organ enlargement, positive bowel sounds. No obvious tenderness. LOWER EXTREMITIES: No pretibial edema or calf tenderness. MUSCULOSKELETAL: Generally decreased muscle mass, tone and strength. SEWER AND INSPECTOR: No focal sensory or motor deficits. 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 She has had a total of 3 cycles of decitabine outpatient. Her last cycle was approximately 2 months ago. She was admitted with nausea and vomiting and was found to have circulating blasts at 71%. Plan 1. AML: She completed this cycle of Dacogen infusions on 09/26. She continues to have significant nausea. Circulating blast percentage is about 70%. I anticipate her cytopenias will worsen over the next 2-3 weeks. 2. For nausea she is now on kytril, olanzapine, marinol and compazine. She is also dosed with alprazolam as needed for anxiety. Given the non specific findings on EGD, I suspect the nausea may have an anxiety component to it. 3. Continue supportive care. 4. C. difficile colitis: She was unable to tolerate PO Metronidazole due to nausea and she was switched back to IV metronidazole today. 5. A. fib with RVR: Continue rate control with beta blockers. Hold off on anticoagulation given the thrombocytopenia. Disposition: She may be d/daly home from a hematologic standpoint, it appears the issues which are keeping her in the hospital are her persistent nausea and her C.diff colitis requiring IV metronidazole (she is unable to tolerated PO metronidazole) , Her transfusion needs may be met in the out pt setting. The patient prefers discharge to home with her daughter as opposed to a short- term rehabilitation facility. Roberto Yarbrough MD Sep 27, 2017 20:43
[2017-09-27] MEDS: POTASSIUM CHLOR 20 MEQ PREMIX 100 ML IV SCH ×2 (21:48→23:30)
[2017-09-27] MEDS: ACETAMINOPHEN/HYDROcodone 325 MG/5 MG TAB PO PRN (22:59)
[2017-09-28] VITALS (9 sets, daily range): BP systolic 100–127; BP diastolic 62–81; PULSE 74–118; RESP 17–18; TEMP 97.6–98; O2SAT 92–98
[2017-09-28] MEDS: LORazepam 2 MG/ML VIAL IV PUSH PRN (01:29)
[2017-09-28 07:03] LABS: HEMATOCRIT 22.3 % (35.0-46.0); HEMOGLOBIN 7.8 GM/DL (11.6-15.3); MEAN CELL VOLUME 93.7 FL (80.0-100.0); MEAN CORPUSCULAR HEMOGLOBIN 32.7 PG (27.0-34.0); MEAN CORPUSCULAR HGB CONC 34.9 % (32.0-36.0); MEAN PLATELET VOLUME 9.5 FL (7.0-11.0); RED BLOOD COUNT 2.38 MIL/MM3 (4.00-5.30); RED CELL DISTRIBUTION WIDTH 22.1 % (11.6-17.2)
[2017-09-28 07:10] LABS: PLATELET COUNT 12 TH/MM3 (150-450)
[2017-09-28] MEDS ORDERED: VANC500I3 PO (07:21)
[2017-09-28] MEDS ORDERED: SUCR1S PO (07:21)
[2017-09-28] MEDS ORDERED: HYDR-3516 PO (07:21)
[2017-09-28] MEDS ORDERED: DRON5CAP PO (07:23)
[2017-09-28] MEDS ORDERED: ZOFR4TAB3 SL (07:23)
[2017-09-28] MEDS ORDERED: PANT40TA3 PO (07:23)
--- NOTE | 2017-09-28 07:24 | HHI.DS ---
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, unspecified Status: Acute (2) Paresthesia ICD Code: R20.2 - Paresthesia of skin Status: Acute (3) Anemia ICD Code: D64.9 - Anemia, unspecified Status: Acute (4) Thrombocytopenia ICD Code: D69.6 - Thrombocytopenia, unspecified Status: Acute (5) Acute respiratory failure ICD Code: J96.00 - Acute respiratory failure, unspecified whether with hypoxia or hypercapnia Status: Acute (6) Sepsis ICD Code: A41.9 - Sepsis, unspecified organism Status: Resolved (7) Tachycardia ICD Code: R00.0 - Tachycardia, unspecified Status: Resolved (8) Elevated white blood cell count ICD Code: D72.829 - Elevated white blood cell count, unspecified Status: Resolved (9) Hx TIA/stroke w/o resid ICD Code: Z86.73 - Personal history of transient ischemic attack (TIA), and cerebral infarction without residual deficits Status: Resolved (10) TIA (transient ischemic attack) ICD Code: G45.9 - Transient cerebral ischemic attack, unspecified Status: Acute (11) Shortness of breath ICD Code: R06.02 - Shortness of breath Status: Acute (12) Debility ICD Code: R53.81 - Other malaise Status: Acute (13) CKD (chronic kidney disease) stage 3, GFR 30-59 ml/min ICD Code: N18.3 - Chronic kidney disease, stage 3 (moderate) Status: Chronic (14) Atrial fibrillation with RVR ICD Code: I48.91 - Unspecified atrial fibrillation Status: Acute (15) AML (acute myeloid leukemia) ICD Code: C92.00 - Acute myeloblastic leukemia, not having achieved remission Status: Acute Procedures none Brief History - From Admission History from patient, her daughter over the phone, ER physician, and review of medical records. Patient reported that for the past 24 hours, she was having severe nausea, and vomited a lot. She reports even small sip of water would make her vomit. She also reports of abdominal pain diffusely. Denies diarrhea. She denies any black stool red stool. She states she is still passing gas. Her last bowel movement was the day before yesterday. Patient states she was discharged from [facility] about 7 days ago. This was confirmed with her daughter. She was hospitalized there for 11 days. She was in ICU for the first few days. Next and horrible both the patient and the daughter stated that she was in ICU because her blood pressure was high. She also received platelet transfusion there. She was managed therefore possible bowel obstruction. However she did not have any NG tube. No surgery was required. She was just managed with medications and she eventually made bowel movement the day of discharge. She was never intubated. Her heart rate was also high at around 127 over there. She has history of hemorrhoids. However no GI bleed during that hospitalization. No fever. Her potassium was low during that hospitalization as well. Patient and daughter were not sure whether patient was on steroids there. However the confirms that patient did receive platelet transfusion. They are unsure whether patient was treated with antibiotics there. Patient states that she was basically sent to [facility] that day from PCP office because she was having nausea, vomiting, dyspnea at the office with some feeling of dizziness. The ambulance at that time had to send her to the nearest hospital. Patient office is closer to [place]. does have shortness of breath - but this is chronic since diagnosis of AML february CBC/BMP: 09/28/17 0605 09/27/17 0540 Significant Findings Laboratory Tests Test 09/25/17 21:45 09/26/17 04:33 09/27/17 05:40 09/28/17 06:05 Stool C. difficile Toxin (PCR) POSITIVE (NEGATIVE) White Blood Count 11.1 TH/MM3 (4.0-11.0) 11.4 TH/MM3 (4.0-11.0) Red Blood Count 2.77 MIL/MM3 (4.00-5.30) 2.70 MIL/MM3 (4.00-5.30) 2.38 MIL/MM3 (4.00-5.30) Hemoglobin 8.7 GM/DL (11.6-15.3) 8.5 GM/DL (11.6-15.3) 7.8 GM/DL (11.6-15.3) Hematocrit 25.9 % (35.0-46.0) 25.2 % (35.0-46.0) 22.3 % (35.0-46.0) Red Cell Distribution Width 21.3 % (11.6-17.2) 21.7 % (11.6-17.2) 22.1 % (11.6-17.2) Platelet Count 17 TH/MM3 (150-450) 18 TH/MM3 (150-450) 12 TH/MM3 (150-450) Blastocytes 71 % (0-0) 79 % (0-0) Platelet Estimate LOW (NORMAL) RARE (NORMAL) Ovalocytes 1+ (NORMAL) 1+ (NORMAL) Neutrophils % (Manual) 2 % (16-70) Neutrophils # (Manual) 0.2 TH/MM3 (1.8-7.7) Plasma Cells 1 % (0-0) Acanthocytes OCC (NORMAL) Keratocytes OCC (NORMAL) Blood Urea Nitrogen 6 MG/DL (7-18) Total Protein 4.6 GM/DL (6.4-8.2) Calcium Level 7.2 MG/DL (8.5-10.1) Magnesium Level 1.4 MG/DL (1.5-2.5) Potassium Level 2.7 MEQ/L (3.5-5.1) Chloride Level 108 MEQ/L (98-107) Estimat Glomerular Filtration Rate 72 ML/MIN (>89) Imaging Last Impressions PICC Line Insertion 09/21/17 0000 Signed Impressions: Service Date/Time: Thursday, September 21, 2017 12:57 - CONCLUSION: 1. Uncomplicated central venous Power PICC line placement. 2. The PICC line can be used immediately. Roger Fowler MD Chest X-Ray 09/19/17 0000 Signed Impressions: Service Date/Time: Tuesday, September 19, 2017 20:52 - CONCLUSION: 1. Minimal basilar atelectasis or scarring. Mild cardiomegaly. No effusion or pneumothorax. Rivas Tejeda MD Abdomen/Pelvis CT 09/19/17 0000 Signed Impressions: Service Date/Time: Tuesday, September 19, 2017 23:27 - CONCLUSION: 1. No acute findings. Mild sigmoid diverticula. 2. Stable size to the 3.1 cm mid abdominal aortic aneurysm. Yared Sethi MD PE at Discharge GENERAL: in NAD but looks uncomfortable due to feeling nauseous. CARDIOVASCULAR: Regular rate and rhythm without murmurs, gallops, or rubs. RESPIRATORY: Breath sounds equal bilaterally. No accessory muscle use. GASTROINTESTINAL: Abdomen soft, non-tender, nondistended. MUSCULOSKELETAL: No cyanosis, or edema. BACK: Nontender without obvious deformity. No CVA tenderness. Hospital Course 67-year-old female admitted due to intractable emesis Intractable emesis/nausea. Hypokalemia -Occurred 2 months ago after chemotherapy. -Patient was recently hospitalized in [place] and was on multiple anti-medics medications with no relief. She returned to the hospital since the symptoms are not resolved. -EGD done on 09/21 showing severe gastritis and duodenitis. GI order stool H pylori and recommend Protonix. -Patient on Protonix, antiemetics, with some improvement of nausea and emesis. - Replace potassium C. difficile colitis: Can't tolerate po flagyl, DC IV metronidazole. Started on vanco PO patien tis tolerating vanco PO . Formed BM. Anxiety. Add Ativan AML -Appreciate oncologist recommendation. -Status post PICC placement and then be treated with initiation of Dacogen at 20 mg/m2 IV on days 1-7. Hypertension/COPD/atrial fibrillation/hypothyroidism/seizure disorder - Continue with home medication. Anemia -Hemoglobin decreased from 9-7.6. -No active bleeding. -May be hemoconcentrated. -Oncologist consulted. Will transfuse if hemoglobin less than 7 or symptomatic. Constipation -Patient on stool softener. Prior she was unable to take oral intake but symptoms are improving with Protonix. Will continue with her schedule Ramya- Colace and schedule lactulose. DVT prophylaxis with Lovenox. Improved. Patient wants to go home with ITT EXIM. DC home with home health in stable condition however with poor prognosis and poss rehospitalization. Patient to follow up as OP with pCP and consultants as OP. Pt Condition on Discharge: Deteriorating Discharge Disposition: Disch w/ Home Health Serv Discharge Time: > 30 minutes Discharge Instructions DIET: Follow Instructions for: Heart Healthy Diet Activities you can perform: Regular-No Restrictions Follow up Referrals: Oncology - 1 Week PCP Follow-up - 2-3 Days SNF/[facility] @ [facility] with [facility] New Medications: Ondansetron Odt (Zofran Odt) 4 Mg Tab 4 MG SL Q6HR PRN for Nausea/Vomiting, #30 TAB 0 Refills Pantoprazole (Pantoprazole) 40 Mg Tab 40 MG PO DAILY for Reflux, #30 TAB 0 Refills Dronabinol (Dronabinol) 5 Mg Cap 5 MG PO BID@11,16 for appetite enhancer, #30 CAP Sucralfate Liq (Sucralfate Liq) 1 Gram/10 Ml Leida 1 GM PO ACHS for gi protection for 30 Days, GM Vancomycin Inj (Vancomycin Inj) 500 Mg Inj 125 MG PO QID for c. diff for 6 Days, INJECTION to be used orally 500 mg po qid for 6 days Continued Medications: Atorvastatin (Atorvastatin) 40 Mg Tab 40 MG PO HS for Cholesterol Management, #30 TAB 0 Refills Hydrocodone/Acetaminophen (Hydrocodone-Acetamin 5-325 mg) 5 Mg-325 Mg Tablet 1 TAB PO Q6H PRN for BREAKTHROUGH PAIN, #20 MG (This prescription has been renewed) Metoprolol Tartrate (Metoprolol Tartrate) 25 Mg Tab 25 MG PO BID, #60 TAB 0 Refills Lydia Bright MD Sep 28, 2017 07:24
--- NOTE | 2017-09-28 07:29 | HHI.FF ---
Face to Face Verification Diagnosis: (1) Paroxysmal atrial fibrillation (2) HTN (hypertension) (3) Hypokalemia (4) AML (acute myeloid leukemia) (5) Nausea & vomiting Physical Therapy Order: Evaluate and Treat Home Health Nursing Order: Medical education Signs/symptoms of disease process Medication education-adverse effect Nursing assessment with vital signs I have seen patient Ellen Richard on 09/28/17. My clinical findings support the need for the requested home health care services because: Ltd mobility - disease progression I certify that my clinical findings support that this patient is homebound because: Post-op weakness Lydia Bright MD Sep 28, 2017 07:29
[2017-09-28 07:52] LABS: BICARBONATE 23.9 MEQ/L (21.0-32.0); CALCIUM 7.3 MG/DL (8.5-10.1); CREATININE 0.74 MG/DL (0.50-1.00)
[2017-09-28 08:12] LABS: CALCIUM-PROTEIN CORRECTED 8.8 MG/DL (8.5-10.1); TOTAL PROTEIN 4.5 GM/DL (6.4-8.2)
[2017-09-28 08:39] LABS: BLASTS 80 % (0-0); LYMPHOCYTES 17 % (9-44); NEUTROPHIL # MANUAL DIFF 0.2 TH/MM3 (1.8-7.7); POLYS (SEG NEUTROPHILS) 3 % (16-70)
[2017-09-28 08:42] LABS: TEARDROP RBCS 1+ (NORMAL)
[2017-09-28] MEDS: PANTOPRAZOLE SODIUM 40 MG VIAL IV PUSH SCH (08:42)
[2017-09-28] MEDS: VANCOMYCIN 500 MG VIAL (FOR ORAL USE ONLY) PO SCH ×2 (08:42→13:00)
[2017-09-28] MEDS: SUCRALFATE 1 GM/10 ML CUP PO SCH ×2 (08:42→11:11)
[2017-09-28] MEDS: METOPROLOL TARTRATE 25 MG TAB PO SCH (08:43)
[2017-09-28] MEDS: LACTULOSE SYRUP 20 GM/30 ML CUP PO SCH (08:43)
[2017-09-28] MEDS: SODIUM CHLORIDE 0.9% FLUSH 10 ML FLUSH IV FLUSH SCH (08:43)
[2017-09-28 08:44] LABS: KERATOCYTES OCC (NORMAL)
[2017-09-28] MEDS: DOCUSATE SODIUM 50 MG/SENNA 8.6 MG TAB PO SCH (08:44)
[2017-09-28] MEDS: SODIUM CHLORIDE 0.9% FLUSH 10 ML FLUSH IVF SCH (09:00)
--- NOTE | 2017-09-28 10:28 | HHI.PR ---
Subjective Remarks till with some nausea, but says eh feel better today. With low K replace. No abd pain. No fever or chills.No n/v/d/c. Denies chest pain or sob. Objective Vitals Vital Signs Date Time Temp Pulse Resp B/P (MAP) Pulse Ox O2 Delivery O2 Flow Rate FiO2 09/28/17 08:38 97.7 92 18 127/81 (96) 98 09/28/17 06:00 89 09/28/17 05:00 87 09/28/17 04:00 114 09/28/17 04:00 97.6 110 17 109/76 (87) 92 09/28/17 02:00 118 09/28/17 01:20 100/62 (75) 09/28/17 01:00 100 09/28/17 00:00 74 09/27/17 23:52 98.3 74 15 95/64 (74) 92 09/27/17 23:00 70 09/27/17 22:00 70 09/27/17 21:00 66 09/27/17 20:05 71 09/27/17 20:05 98.0 74 16 102/54 (70) 98 09/27/17 20:00 78 09/27/17 19:00 72 09/27/17 18:43 96.4 88 16 96/54 (68) 98 09/27/17 18:32 106 09/27/17 16:00 72 09/27/17 15:00 112 09/27/17 14:00 114 09/27/17 13:27 98.2 100 16 99/68 (78) 96 09/27/17 13:00 116 09/27/17 12:00 84 09/27/17 11:00 110 I/O 09/27/17 09/27/17 09/27/17 09/28/17 09/28/17 09/28/17 07:00 15:00 23:00 07:00 15:00 23:00 Intake Total 240 ml 100 ml 1060 ml 680 ml Output Total 400 ml Balance 240 ml 100 ml 1060 ml 280 ml Intake Oral 240 ml 960 ml 480 ml IV Total 100 ml 100 ml 200 ml Output Urine Total 400 ml # Voids 1 2 Result Diagram: 09/28/17 0609/28/17 06 Imaging Last Impressions PICC Line Insertion 09/21/17 0000 Signed Impressions: Service Date/Time: Thursday, September 21, 2017 12:57 - CONCLUSION: 1. Uncomplicated central venous Power PICC line placement. 2. The PICC line can be used immediately. Roger Fowler MD Chest X-Ray 09/19/17 0000 Signed Impressions: Service Date/Time: Tuesday, September 19, 2017 20:52 - CONCLUSION: 1. Minimal basilar atelectasis or scarring. Mild cardiomegaly. No effusion or pneumothorax. Rivas Tejeda MD Abdomen/Pelvis CT 09/19/17 0000 Signed Impressions: Service Date/Time: Tuesday, September 19, 2017 23:27 - CONCLUSION: 1. No acute findings. Mild sigmoid diverticula. 2. Stable size to the 3.1 cm mid abdominal aortic aneurysm. Yared Sethi MD Objective Remarks GENERAL: in NAD but looks uncomfortable due to feeling nauseous. CARDIOVASCULAR: Regular rate and rhythm without murmurs, gallops, or rubs. RESPIRATORY: Breath sounds equal bilaterally. No accessory muscle use. GASTROINTESTINAL: Abdomen soft, non-tender, nondistended. MUSCULOSKELETAL: No cyanosis, or edema. BACK: Nontender without obvious deformity. No CVA tenderness. A/P Assessment and Plan 67-year-old female admitted due to intractable emesis Intractable emesis/nausea. Hypokalemia -Occurred 2 months ago after chemotherapy. -Patient was recently hospitalized in [place] and was on multiple anti-medics medications with no relief. She returned to the hospital since the symptoms are not resolved. -EGD done on 09/21 showing severe gastritis and duodenitis. GI order stool H pylori and recommend Protonix. -Patient on Protonix, antiemetics, with some improvement of nausea and emesis. - Replace potassium C. difficile colitis: Can't tolerate po flagyl, continue IV metronidazole. Anxiety. Add Ativan AML -Appreciate oncologist recommendation. -Status post PICC placement and then be treated with initiation of Dacogen at 20 mg/m2 IV on days 1-7. Hypertension/COPD/atrial fibrillation/hypothyroidism/seizure disorder - Continue with home medication. Anemia -Hemoglobin decreased from 9-7.6. -No active bleeding. -May be hemoconcentrated. -Oncologist consulted. Will transfuse if hemoglobin less than 7 or symptomatic. Constipation -Patient on stool softener. Prior she was unable to take oral intake but symptoms are improving with Protonix. Will continue with her schedule Ramya- Colace and schedule lactulose. DVT prophylaxis with Lovenox. DC when improved and cleared by oncology. Lydia Bright MD Sep 28, 2017 10:28
[2017-09-28] MEDS ORDERED: POTASSIUM BICARBONATE 25 MEQ EFFERVESCENT TAB PO ONE ×2 (11:00→12:30)
[2017-09-28] MEDS: DRONABINOL 5 MG CAP PO SCH (11:11)
== END 2017-09-28 15:10 | disposition home health service (06) | DRG 392 ==
LOC: NEPE 13:20 → NEDA 16:26 → HCIN 18:12
PROVIDERS: ADMIT Internal Medicine; ATTEND Hospitalist
PROC: 30233N1 Transfusion of Nonautologous Red Blood Cells into Peripheral Vein, Percutaneous Approach (ICD-10-PCS; 2017-09-20)
PROC: 02HV33Z Insertion of Infusion Device into Superior Vena Cava, Percutaneous Approach (ICD-10-PCS; 2017-09-21)
PROC: 0DJ08ZZ Inspection of Upper Intestinal Tract, Via Natural or Artificial Opening Endoscopic (ICD-10-PCS; 2017-09-21)
PROC: 30233R1 Transfusion of Nonautologous Platelets into Peripheral Vein, Percutaneous Approach (ICD-10-PCS; 2017-09-21)
PROC: 3E03305 Introduction of Other Antineoplastic into Peripheral Vein, Percutaneous Approach (ICD-10-PCS; principal; 2017-09-21 15:37)
DX: R11.2 Nausea with vomiting, unspecified (principal); C92.00 Acute myeloblastic leukemia, not having achieved remission; D69.6 Thrombocytopenia, unspecified; I48.0 Paroxysmal atrial fibrillation; A04.72 Enterocolitis due to Clostridium difficile, not specified as recurrent; E83.51 Hypocalcemia; N18.3 Chronic kidney disease, stage 3 (moderate); I95.2 Hypotension due to drugs; E86.0 Dehydration; I12.9 Hypertensive chronic kidney disease with stage 1 through stage 4 chronic kidney disease, or unspecified chronic kidney disease; J44.9 Chronic obstructive pulmonary disease, unspecified; K20.9 Esophagitis, unspecified; E03.9 Hypothyroidism, unspecified; E87.6 Hypokalemia; F41.9 Anxiety disorder, unspecified; K59.09 Other constipation; K29.80 Duodenitis without bleeding; K29.70 Gastritis, unspecified, without bleeding; T44.7X5A Adverse effect of beta-adrenoreceptor antagonists, initial encounter; I71.4 Abdominal aortic aneurysm, without rupture; D64.9 Anemia, unspecified; T45.1X5A Adverse effect of antineoplastic and immunosuppressive drugs, initial encounter; R00.0 Tachycardia, unspecified; E78.5 Hyperlipidemia, unspecified; Z87.891 Personal history of nicotine dependence; Z88.0 Allergy status to penicillin; Z88.8 Allergy status to other drugs, medicaments and biological substances
CPT/HCPCS: 36430; 36569; 71046; 74177; 76937; 77001; 80048; 80053; 81001; 83605; 83690; 83735; 84155; 85007; 85025; 85027; 85730; 86850; 86900; 86901; 86920; 87040; 87493; 87641; 93005; 94664; 96361; 96374; 96375; C1751; C9113; J0610; J0780; J0894; J1200; J1626; J1642; J1650; J2060; J2405; J3475; J3480; J7030; J7040; J7050; P9037; P9040; Q9967

== ENCOUNTER 2017-10-01 12:09 | Inpatient (IN) | payer MEDICARE, OTHER ==
[~2017-10-01] VITALS: Ht 162.6 cm; Wt 78.0 kg
[2017-10-01] VITALS (17 sets, daily range): BP systolic 76–157; BP diastolic 51–92; PULSE 72–138; RESP 16–29; TEMP 97.6–98.4; O2SAT 64–100
[~2017-10-01 12:09] MED LIST changes: +ATOR40TA16 PO; -LEVO100T5 PO; +METO25TA3 PO; -MIRTA15 PO; -NEUR100C PO; +PANT40TA3 PO; -PROCHCT RECTAL; -RANI150T PO; -REGL10TA5 PO; -SANC3.1D T-DERMAL; +SUCR1S PO; -Silv Sulfadiazine-Lidocaine Cr RECTAL; +VANC500I3 PO; +ZOFR4TAB3 SL
[2017-10-01] MEDS ORDERED: SODIUM CHLOR 0.9% 1000 ML INJ 1,000 ML IV SCH (12:45)
[2017-10-01] MEDS ORDERED: PANTOPRAZOLE SODIUM 40 MG VIAL IVP ONE (12:45)
[2017-10-01] MEDS ORDERED: MORPHINE SULFATE 4 MG/ML INJ IV PUSH ONE (12:45)
[2017-10-01] MEDS ORDERED: SODIUM CHLORIDE 0.9% FLUSH 10 ML FLUSH IV FLUSH PRN (12:45)
[2017-10-01] MEDS ORDERED: ONDANSETRON HCL 4 MG/2 ML VIAL IVP ONE (12:45)
--- NOTE | 2017-10-01 12:50 | PD ---
HPI Chief Complaint: Abdominal Pain Time Seen by Provider: 12:40 Travel History International Travel<30 days: No Contact w/Intl Traveler<30days: No Traveled to known affect area: No History of Present Illness HPI 67-year-old female presents via EMS for evaluation of generalized swelling, nausea, abdominal pain. She was discharged from the hospital on September 28. She is currently on p.o. vancomycin for C. difficile colitis. She reports that yesterday evening she developed epigastric abdominal pain which has been persistent. This morning she woke up with sensation of swelling in her hands, feet and face. The pain is a sharp pain which is constant, associated with nausea which is chronic. She denies any diarrhea. She reports that she last had a bowel movement yesterday and it was normal. She denies chest pain, shortness of breath, cough or congestion, fevers or chills. She has had a poor appetite. Past medical history includes AML, chronic kidney disease, hypertension, COPD, atrial fibrillation. Her last chemotherapy treatment was September 26. She has no other complaints at this time. 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) Cardiovascular Problems: Yes (htn, high cholesterol) High Cholesterol: Yes Chemotherapy: Yes (09/27/17) Chest Pain: No Congestive Heart Failure: No COPD: Yes Cerebrovascular Accident: No Diabetes: No Diminished Hearing: No Endocrine: Yes Genitourinary: No Headaches: Yes Hypertension: Yes Immune Disorder: No Musculoskeletal: Yes (back) Neurologic: Yes (brain aneurysms, ANGIOMA) Psychiatric: Yes Reproductive: No Respiratory: Yes Migraines: No Myocardial Infarction: Yes (10/07) Seizures: No Thyroid Disease: Yes (Hypothyrodism) Menopausal: Yes : 2 Para: 2 Past Surgical History Abdominal Surgery: Yes Appendectomy: Yes Section: Yes (x2) Other Surgery: Yes (back, VARICOSE VEIN REMOVAL) Social History Alcohol Use: No Tobacco Use: No (quit 2012) Substance Use: No Allergies-Medications (Allergen,Severity, Reaction): Coded Allergies: penicillin G (Verified Allergy, Severe, 09/19/17) aspirin (Verified Allergy, Unknown, "MAKES MY STOMACH HURT A BIT", 09/19/17 ) Reported Meds & Prescriptions Reported Meds & Active Scripts Active Pantoprazole (Pantoprazole Sodium) 40 Mg Tab 40 Mg PO DAILY Dronabinol 5 Mg Cap 5 Mg PO BID@11,16 Sucralfate Liq (Sucralfate) 1 Gram/10 Ml Leida 1 Gm PO ACHS 30 Days Vancomycin Inj (Vancomycin HCl) 500 Mg Inj 125 Mg PO QID 6 Days to be used orally 500 mg po qid for 6 days Reported Atorvastatin (Atorvastatin Calcium) 40 Mg Tab 40 Mg PO HS Metoprolol Tartrate 25 Mg Tab 25 Mg PO BID Review of Systems Except as stated in HPI: all other systems reviewed are Neg Physical Exam Narrative GENERAL: Well-developed well-nourished female in no acute distress, tachycardic , hypotensive. SKIN: Warm and dry. HEAD: Atraumatic. Normocephalic. EYES: Pupils equal and round. No scleral icterus. No injection or drainage. ENT: No nasal bleeding or discharge. Mucous membranes pink and moist. NECK: Trachea midline. No JVD. CARDIOVASCULAR: Regular rate and rhythm. No murmur appreciated. RESPIRATORY: No accessory muscle use. Clear to auscultation. Breath sounds equal bilaterally. GASTROINTESTINAL: Abdomen soft, focal tenderness to palpation in the epigastrium without guarding. MUSCULOSKELETAL: No obvious deformities. No clubbing. No cyanosis. No edema. NEUROLOGICAL: Awake and alert. No obvious cranial nerve deficits. Motor grossly within normal limits. Normal speech. PSYCHIATRIC: Appropriate mood and affect; insight and judgment normal. Data Data Last Documented VS Vital Signs Date Time Temp Pulse Resp B/P (MAP) Pulse Ox O2 Delivery O2 Flow Rate FiO2 10/01/17 15:34 100 Nasal Cannula 4.00 10/01/17 15:00 97.8 120 18 125/78 Orders Orders Complete Blood Count With Diff (10/01/17 12:45) Comprehensive Metabolic Panel (10/01/17 12:45) Lipase (10/01/17 12:45) Prothrombin Time / Inr (Pt) (10/01/17 12:45) Act Partial Throm Time (Ptt) (10/01/17 12:45) Urinalysis - C+S If Indicated (10/01/17 12:45) Ct Abd/Pel W Iv Contrast(Rout) (10/01/17 12:45) Iv Access Insert/Monitor (10/01/17 12:45) Ecg Monitoring (10/01/17 12:45) Oximetry (10/01/17 12:45) Morphine Inj (Morphine Inj) (10/01/17 12:45) Ondansetron Inj (Zofran Inj) (10/01/17 12:45) Pantoprazole Inj (Protonix Inj) (10/01/17 12:45) Sodium Chlor 0.9% 1000 Ml Inj (Ns 1000 M (10/01/17 12:45) Sodium Chloride 0.9% Flush (Ns Flush) (10/01/17 12:45) Electrocardiogram (10/01/17 12:45) Lactic Acid Sepsis Protocol (10/01/17 12:45) Blood Culture (10/01/17 12:45) Chest, Single Ap (10/01/17 ) Ct Pulmonary Angiogram (10/01/17 12:51) Type And Screen (10/01/17 13:25) Blood Product Administration (10/01/17 13:25) Sodium Chlor 0.9% 250 Ml Inj (Ns 250 Ml (10/01/17 13:30) Arterial Blood Gas (Abg) (10/01/17 ) Blood Product Administration (10/01/17 13:30) Chest, Single Ap (10/01/17 13:57) Admit To Inpatient (10/01/17 ) Code Status (10/01/17 13:58) Vital Signs (Adult) SCOTTY.Q1H (10/01/17 13:58) Activity Bed Rest (10/01/17 13:58) Elevate Head Of Bed (10/01/17 13:58) Neuro Checks . ORDERED (10/01/17 13:58) Famotidine Inj (Pepcid Inj) (10/01/17 21:00) Albuterol-Ipratropium Neb (Duoneb Neb) (10/01/17 16:00) Albuterol-Ipratropium Neb (Duoneb Neb) (10/01/17 14:00) Complete Blood Count With Diff (10/02/17 04:00) Comprehensive Metabolic Panel (10/02/17 04:00) C Diff Toxin Pcr (10/01/17 13:58) Consult Infectious Disease (10/01/17 ) Party Plan Sales Director / Telemetry SCOTTY.Q8H (10/01/17 13:58) Scd Bilateral/Knee High SCOTTY.BID (10/01/17 13:58) ^ Initiate Protocol (10/01/17 13:58) Instruction (10/01/17 13:58) Misc Nursing Information (10/01/17 14:00) Chlorhexidine 2% Cloth (Chlorhexidine 2% (10/02/17 04:00) Chlorhexidine 2% Cloth (Chlorhexidine 2% (10/01/17 14:00) Mrsa Pcr Surveillance (10/01/17 13:58) Inpatient Certification (10/01/17 ) Urinalysis - C+S If Indicated (10/01/17 13:58) Hgb & Hct (10/01/17 ) Metronidazole 500 Mg Inj (Flagyl 500 Mg (10/01/17 14:00) Vancomycin For Oral Use Only (Vancomycin (10/01/17 15:00) (Hub Use Only)Inp Phy Cons/Ref (10/01/17 ) Consult Gastroenterology (10/01/17 ) (Hub Use Only)Inp Phy Cons/Ref (10/01/17 ) Iohexol 350 Inj (Omnipaque 350 Inj) (10/01/17 14:35) ^ Medication Admin Instruction (10/01/17 14:57) Notify Dr: Other (10/01/17 14:57) Phosphorus (Po4) (10/01/17 14:57) Potassium Chlor 40 Meq Premix (Kcl 40 Me (10/01/17 15:00) Potassium Chlor 20 Meq Premix (Kcl 20 Me (10/01/17 15:00) Potassium Chloride Eff (K-Lyte Cl Eff) (10/01/17 15:00) Potassium Chlor 40 Meq Premix (Kcl 40 Me (10/01/17 15:00) Potassium Chlor 20 Meq Premix (Kcl 20 Me (10/01/17 15:00) Magnesium Sulfate Inj (Magnesium Sulfate (10/01/17 15:00) Magnesium Oxide (Mag-Ox) (10/01/17 15:00) Magnesium Sulfate Inj (Magnesium Sulfate (10/01/17 15:00) Potassium Phosphate (K-Phos) (10/01/17 15:00) Sodium Phosphate Inj (Sodium Phosphate I (10/01/17 15:00) Potassium Phosphate (K-Phos) (10/01/17 15:00) Potassium Phosphate Inj (Potassium Phosp (10/01/17 15:00) Sodium Chlor 0.9% 1000 Ml Inj (Ns 1000 M (10/01/17 15:00) Blood Glucose Goal (Criteria) (10/01/17 14:58) Hypoglycemia 70 Mg/Dl Or < (10/01/17 14:58) Notify Dr: Other (10/01/17 14:58) Dextrose 50% In Deepak (Vial) Inj (D50w (Vi (10/01/17 15:00) Glucagon Inj (Glucagon Inj) (10/01/17 15:00) Insulin Human Reg Supp Scale (Novolin R (10/01/17 15:00) Legionella Urinary Antigen (10/01/17 15:29) Pneumococcal Urinary Antigen (10/01/17 15:29) Sputum Culture And Gram Stain (10/01/17 15:29) Red Blood Cells Irradiated (10/01/17 17:38) Labs Laboratory Tests Test 10/01/17 12:45 10/01/17 13:29 10/01/17 15:14 White Blood Count 21.8 TH/MM3 Red Blood Count 2.13 MIL/MM3 Hemoglobin 6.6 GM/DL Hematocrit 19.7 % Mean Corpuscular Volume 92.5 FL Mean Corpuscular Hemoglobin 31.1 PG Mean Corpuscular Hemoglobin Concent 33.6 % Red Cell Distribution Width 21.3 % Platelet Count 57 TH/MM3 Mean Platelet Volume 11.7 FL CBC Comment AUTO DIFF Differential Total Cells Counted 100 Neutrophils % (Manual) 3 % Lymphocytes % 17 % Neutrophils # (Manual) 0.7 TH/MM3 Differential Comment FINAL DIFF MANUAL Blastocytes 80 % Platelet Estimate LOW Platelet Morphology Comment ENLARGED Ovalocytes 1+ Prothrombin Time 12.4 SEC Prothromb Time International Ratio 1.2 RATIO Activated Partial Thromboplast Time 25.4 SEC Blood Urea Nitrogen 7 MG/DL Creatinine 0.74 MG/DL Random Glucose 84 MG/DL Total Protein 5.3 GM/DL Albumin 2.3 GM/DL Calcium Level 7.6 MG/DL Alkaline Phosphatase 130 U/L Aspartate Amino Transf (AST/SGOT) 18 U/L Alanine Aminotransferase (ALT/SGPT) 9 U/L Total Bilirubin 0.8 MG/DL Sodium Level 139 MEQ/L Potassium Level 3.3 MEQ/L Chloride Level 103 MEQ/L Carbon Dioxide Level 26.5 MEQ/L Anion Gap 10 MEQ/L Estimat Glomerular Filtration Rate 78 ML/MIN Lactic Acid Level 1.2 mmol/L Phosphorus Level 2.3 MG/DL Lipase 382 U/L Blood Gas Puncture Site LT RADIAL Blood Gas Patient Temperature 98.6 Blood Gas HCO3 27 mmol/L Blood Gas Base Excess 2.8 mmol/L Blood Gas Oxygen Saturation 11 % Arterial Blood pH 7.40 Arterial Blood Partial Pressure CO2 45 mmHg Arterial Blood Partial Pressure O2 13 mmHG Arterial Blood Oxygen Content 1.2 Vol % Arterial Blood Carboxyhemoglobin 0.9 % Arterial Blood Methemoglobin 1.0 % Blood Gas Hemoglobin 8.2 G/DL Oxygen Delivery Device Non-Rebreathing Mask Blood Gas Liter Flow 15 L/M Urine Color YELLOW Urine Turbidity CLOUDY Urine pH 7.5 Urine Specific Boykin 1.013 Urine Protein NEG mg/dL Urine Glucose (UA) NEG mg/dL Urine Ketones TRACE mg/dL Urine Occult Blood TRACE Urine Nitrite NEG Urine Bilirubin NEG Urine Urobilinogen 2.0 MG/DL Urine Leukocyte Esterase MOD Urine RBC 2 /hpf Urine WBC 6 /hpf Urine Squamous Epithelial Cells 11 /hpf Urine Transitional Epithelial Cells 1 /hpf Urine Bacteria MANY /hpf Urine Mucus FEW /lpf Microscopic Urinalysis Comment CULTURE INDICATED MDM Medical Decision Making Medical Screen Exam Complete: Yes Emergency Medical Condition: Yes Medical Record Reviewed: Yes Differential Diagnosis C. difficile colitis, bowel perforation, medication side effect, nephrotic syndrome, renal failure, sepsis, pneumonia, pulmonary embolism Narrative Course 59-year-old female presents complaining of the sensation of swelling in her face , hands and feet. On initial examination she is tachycardic and hypotensive. History of AML. She was placed on ECG monitoring pulse oximetry. A 12-lead EKG was obtained revealing sinus tachycardia with a rate of 136. Plan is for lab work, chest x-ray and an upright position to rule out free air, CT abdomen and pelvis, CT pulmonary angiogram. Shortly after initial examination the patient became significantly hypotensive with a systolic pressure in the 70s, pulse oximetry in the 60s on nonrebreather. No change in mentation. Dr. Allen was in with a trauma patient and therefore Dr. Sargent graciously came and evaluated the patient, placed a central line for additional vascular access. During the procedure the patient's blood pressure and pulse oximetry improved. Her systolic blood pressure increased to 120, oxygen saturation to the mid 90s. Lab work was then obtained revealing a hemoglobin of 6.6 and a WBC count of 21.8, platelet count 57. Hemoglobin on September 28 was 7.8. 2 units of emergent packed red blood cells ordered And immediately obtained. I discussed with the vegetable cook Dr. Roberts who has placed admission orders. CT angiography now reveals a focal infiltrate within the left upper lobe consistent with possible pneumonia, no evidence of pulmonary embolism. CT abdomen and pelvis reveals possible early mild colitis in the descending colon. The patient is being admitted to the ICU. Examined with Dr. Allen who agrees with plan of care. Sepsis Criteria SIRS Criteria (2 or more): Heart rate over 90, WBC > 15022, < 4000 or > 10% bands Sepsis Criteria (SIRS+source): Infect source susp/known Severe Sepsis (+one): Hypotension Diagnosis Primary Impression: Symptomatic anemia Additional Impressions: Colitis Pneumonia Severe sepsis Admitting Information Admitting Physician Requests: Admit Pete Rodriguez Oct 01, 2017 12:50
[2017-10-01 13:09] LABS: MEAN CELL VOLUME 92.5 FL (80.0-100.0); MEAN CORPUSCULAR HEMOGLOBIN 31.1 PG (27.0-34.0); MEAN CORPUSCULAR HGB CONC 33.6 % (32.0-36.0); MEAN PLATELET VOLUME 11.7 FL (7.0-11.0); PLATELET COUNT 57 TH/MM3 (150-450); RED BLOOD COUNT 2.13 MIL/MM3 (4.00-5.30); RED CELL DISTRIBUTION WIDTH 21.3 % (11.6-17.2); WHITE BLOOD COUNT 21.8 TH/MM3 (4.0-11.0)
[2017-10-01 13:16] LABS: INTERNATIONAL NORMALIZED RATIO 1.2 RATIO; PROTHROMBIN TIME - PATIENT 12.4 SEC (9.8-11.6)
[2017-10-01 13:18] LABS: HEMOGLOBIN 6.6 GM/DL (11.6-15.3)
[2017-10-01 13:19] LABS: HEMATOCRIT 19.7 % (35.0-46.0)
[2017-10-01 13:23] LABS: ALBUMIN 2.3 GM/DL (3.4-5.0); ALT (GPT) 9 U/L (10-53); AST (GOT) 18 U/L (15-37); BICARBONATE 26.5 MEQ/L (21.0-32.0); BLOOD UREA NITROGEN 7 MG/DL (7-18); CALCIUM 7.6 MG/DL (8.5-10.1); CHLORIDE 103 MEQ/L (98-107); CREATININE 0.74 MG/DL (0.50-1.00); GLOMERULAR FILTRATION RATE 78 ML/MIN (>89); GLUCOSE,RANDOM 84 MG/DL (74-106); SODIUM (NA) 139 MEQ/L (136-145)
[2017-10-01 13:26] LABS: ALKALINE PHOSPHATASE 130 U/L (45-117); TOTAL BILIRUBIN ADULT 0.8 MG/DL (0.2-1.0); TOTAL PROTEIN 5.3 GM/DL (6.4-8.2)
[2017-10-01] MEDS ORDERED: SODIUM CHLOR 0.9% 250 ML INJ 250 ML IV ONE (13:30)
--- NOTE | 2017-10-01 13:40 | RADRPT ---
EXAM DATE/TIME: 10/01/2017 12:56 [facility] COMPARISON: CHEST SINGLE AP, July 24, 2017, 21:47. INDICATIONS : Pain upper abdomen and lower chest, weakness MEDICAL HISTORY : Hypertension. Chronic obstructive pulmonary disease. SURGICAL HISTORY : Appendectomy. section. ENCOUNTER: Initial ACUITY: 3 days PAIN SCORE: 10/10 LOCATION: Bilateral chest FINDINGS: Minimal bibasilar parenchymal changes. PICC line in good position. Mild compensated cardiomegaly. No free air. CONCLUSION: Mild compensated cardiomegaly. No free air. Darrell Carter MD FACR on October 01, 2017 at 13:37 Board Certified Radiologist. This report was verified electronically.
[2017-10-01 13:45] LABS: BLASTS 80 % (0-0); LYMPHOCYTES 17 % (9-44); NEUTROPHIL # MANUAL DIFF 0.7 TH/MM3 (1.8-7.7); POLYS (SEG NEUTROPHILS) 3 % (16-70)
[2017-10-01 13:46] LABS: OVALOCYTES 1+ (NORMAL)
[2017-10-01] MEDS ORDERED: MISCELLANEOUS NURSING INFORMATION XX SCH (14:00)
[2017-10-01] MEDS ORDERED: CHLORHEXIDINE GLUCONATE 2 % 1 PACK (2 CLOTHS) TOP PRN (14:00)
--- NOTE | 2017-10-01 14:02 | PD ---
Physical Exam Narrative GENERAL: hypotensive sbp 70 SKIN: Warm and dry.pale, HEAD: Atraumatic. Normocephalic. EYES: Pupils equal and round. No scleral icterus. No injection or drainage. ENT: No nasal bleeding or discharge. Mucous membranes pink and moist. NECK: Trachea midline. No JVD. CARDIOVASCULAR: Regular rate and rhythm. RESPIRATORY: No accessory muscle use. Clear to auscultation. Breath sounds equal bilaterally. GASTROINTESTINAL: Abdomen soft, non-tender, nondistended. Hepatic and splenic margins not palpable. MUSCULOSKELETAL: Extremities without clubbing, cyanosis, or edema. No obvious deformities. NEUROLOGICAL: Awake and alert. No obvious cranial nerve deficits. Motor grossly within normal limits. Five out of 5 muscle strength in the arms and legs. Normal speech. PSYCHIATRIC: Appropriate mood and affect; insight and judgment normal. Data Data Last Documented VS Vital Signs Date Time Temp Pulse Resp B/P (MAP) Pulse Ox O2 Delivery O2 Flow Rate FiO2 10/01/17 13:45 98.4 76 20 112/91 95 10/01/17 13:11 Nasal Cannula 2.00 Orders Orders Complete Blood Count With Diff (10/01/17 12:45) Comprehensive Metabolic Panel (10/01/17 12:45) Lipase (10/01/17 12:45) Prothrombin Time / Inr (Pt) (10/01/17 12:45) Act Partial Throm Time (Ptt) (10/01/17 12:45) Urinalysis - C+S If Indicated (10/01/17 12:45) Ct Abd/Pel W Iv Contrast(Rout) (10/01/17 12:45) Iv Access Insert/Monitor (10/01/17 12:45) Ecg Monitoring (10/01/17 12:45) Oximetry (10/01/17 12:45) Morphine Inj (Morphine Inj) (10/01/17 12:45) Ondansetron Inj (Zofran Inj) (10/01/17 12:45) Pantoprazole Inj (Protonix Inj) (10/01/17 12:45) Sodium Chlor 0.9% 1000 Ml Inj (Ns 1000 M (10/01/17 12:45) Sodium Chloride 0.9% Flush (Ns Flush) (10/01/17 12:45) Electrocardiogram (10/01/17 12:45) Lactic Acid Sepsis Protocol (10/01/17 12:45) Blood Culture (10/01/17 12:45) Chest, Single Ap (10/01/17 ) Ct Pulmonary Angiogram (10/01/17 12:51) Type And Screen (10/01/17 13:25) Red Blood Cells (Rbc) (10/01/17 13:25) Blood Product Administration (10/01/17 13:25) Sodium Chlor 0.9% 250 Ml Inj (Ns 250 Ml (10/01/17 13:30) Arterial Blood Gas (Abg) (10/01/17 ) Blood Product Administration (10/01/17 13:30) Chest, Single Ap (10/01/17 13:57) Labs Laboratory Tests Test 10/01/17 12:45 10/01/17 13:29 White Blood Count 21.8 TH/MM3 Red Blood Count 2.13 MIL/MM3 Hemoglobin 6.6 GM/DL Hematocrit 19.7 % Mean Corpuscular Volume 92.5 FL Mean Corpuscular Hemoglobin 31.1 PG Mean Corpuscular Hemoglobin Concent 33.6 % Red Cell Distribution Width 21.3 % Platelet Count 57 TH/MM3 Mean Platelet Volume 11.7 FL CBC Comment AUTO DIFF Differential Total Cells Counted 100 Neutrophils % (Manual) 3 % Lymphocytes % 17 % Neutrophils # (Manual) 0.7 TH/MM3 Differential Comment FINAL DIFF MANUAL Blastocytes 80 % Platelet Estimate LOW Platelet Morphology Comment ENLARGED Ovalocytes 1+ Prothrombin Time 12.4 SEC Prothromb Time International Ratio 1.2 RATIO Activated Partial Thromboplast Time 25.4 SEC Blood Urea Nitrogen 7 MG/DL Creatinine 0.74 MG/DL Random Glucose 84 MG/DL Total Protein 5.3 GM/DL Albumin 2.3 GM/DL Calcium Level 7.6 MG/DL Alkaline Phosphatase 130 U/L Aspartate Amino Transf (AST/SGOT) 18 U/L Alanine Aminotransferase (ALT/SGPT) 9 U/L Total Bilirubin 0.8 MG/DL Sodium Level 139 MEQ/L Potassium Level 3.3 MEQ/L Chloride Level 103 MEQ/L Carbon Dioxide Level 26.5 MEQ/L Anion Gap 10 MEQ/L Estimat Glomerular Filtration Rate 78 ML/MIN Lactic Acid Level 1.2 mmol/L Lipase 382 U/L Blood Gas Puncture Site LT RADIAL Blood Gas Patient Temperature 98.6 Blood Gas HCO3 27 mmol/L Blood Gas Base Excess 2.8 mmol/L Blood Gas Oxygen Saturation 11 % Arterial Blood pH 7.40 Arterial Blood Partial Pressure CO2 45 mmHg Arterial Blood Partial Pressure O2 13 mmHG Arterial Blood Oxygen Content 1.2 Vol % Arterial Blood Carboxyhemoglobin 0.9 % Arterial Blood Methemoglobin 1.0 % Blood Gas Hemoglobin 8.2 G/DL Oxygen Delivery Device Non-Rebreathing Mask Blood Gas Liter Flow 15 L/M [facility] Medical Record Reviewed: Yes Supervised Visit with JA: Yes Procedures Procedure Narrative After the risks and benefits were discussed the following procedure was performed: CENTRAL VENOUS LINE: The site was prepped with Betadine and sterilely draped. It was infiltrated with 1% lidocaine plain. The deep vein was cannulated using normal Seldinger technique. A central line was placed in the [left subclavian] site and secured with simple interrupted suture. The site was sterilely dressed. The patient tolerated the procedure well. Diagnosis Primary Impression: hypotensive Additional Impression: Symptomatic anemia Ward Sargent MD Oct 01, 2017 14:02
[2017-10-01] MEDS ORDERED: IOHEXOL 350 MG/ML 10 ML VIAL (for RAD DIAG) IVCONTRAST ONE (14:35)
[2017-10-01] MEDS: metroNIDAZOLE 500 MG INJ 100 ML IV SCH ×2 (14:37→20:22)
[2017-10-01] MEDS ORDERED: MAGNESIUM OXIDE 400 MG TAB PO PRN (15:00)
[2017-10-01] MEDS ORDERED: GLUCAGON 1 MG/ML VIAL OTHER PRN (15:00)
[2017-10-01] MEDS ORDERED: POTASSIUM PHOSPHATE MONOBASIC 500 MG TAB PO PRN (15:00)
[2017-10-01] MEDS ORDERED: POTASSIUM CHLORIDE 25 MEQ EFFERVESCENT TAB PO PRN (15:00)
[2017-10-01] MEDS: VANCOMYCIN 500 MG VIAL (FOR ORAL USE ONLY) PO SCH ×3 (15:00→20:21)
[2017-10-01] MEDS ORDERED: MAGNESIUM SULFATE INJ 4 GM in SODIUM CHLORIDE 0.9% INJ 92 ML IV PRN (15:00)
[2017-10-01] MEDS: SODIUM CHLOR 0.9% 1000 ML INJ 1,000 ML IV SCH (15:00)
[2017-10-01] MEDS ORDERED: POTASSIUM CHLOR 20 MEQ PREMIX 100 ML IV PRN (15:00)
[2017-10-01] MEDS ORDERED: POTASSIUM PHOSPHATE MONOBASIC 500 MG TAB PO/TUBE PRN (15:00)
[2017-10-01] MEDS ORDERED: MAGNESIUM SULFATE INJ 2 GM in SODIUM CHLORIDE 0.9% INJ 96 ML IV PRN (15:00)
[2017-10-01] MEDS: INSULIN NovoLIN REGULAR SUPPLEMENTAL SCALE SQ SCH ×2 (15:00→20:21)
--- NOTE | 2017-10-01 15:18 | RADRPT ---
EXAM DATE/TIME: 10/01/2017 14:19 [facility] COMPARISON: CT ABDOMEN & PELVIS W CONTRAST, September 19, 2017, 23:27. INDICATIONS : Abdomen pain,swelling face and hands IV CONTRAST: 99 cc Omnipaque 350 (iohexol) IV ORAL CONTRAST: No oral contrast ingested. RADIATION DOSE: 15.58 CTDIvol (mGy) MEDICAL HISTORY : Cardiovascular disease. Hypertension. Chronic obstructive pulmonary disease.C-diff SURGICAL HISTORY : Appendectomy. ENCOUNTER: Initial ACUITY: 1 day PAIN SCALE: 5/10 LOCATION: Abdomen TECHNIQUE: Volumetric scanning of the abdomen and pelvis was performed. Using automated exposure control and ad justment of the mA and/or kV according to patient size, radiation dose was kept as low as reasonably achievable to obtain optimal diagnostic quality images. DICOM format image data is available electro nically for review and comparison. FINDINGS: Minimal bibasilar parenchymal changes. Liver, spleen and pancreas are unremarkable Gallbladder appears normal There is mild bowel wall thickening in descending colon could be mild colitis. There is minimal stab le aneurysmal dilatation of the descending aorta to 3.1 cm There is symmetrical renal function without renal mass. In the pelvis scattered diverticuli in the sigmoid colon large amount of stool evident Review of bone windows reveals only degenerative changes. CONCLUSION: Minimal bowel wall thickening descending colon it could be an early mild colitis. No other etiology for the abdominal pain is evident There is no evidence for significant congestive failure. Inferior vena cava is patent. Darrell Carter MD FACR on October 01, 2017 at 15:12 Board Certified Radiologist. This report was verified electronically.
--- NOTE | 2017-10-01 15:19 | RADRPT ---
EXAM DATE/TIME: 10/01/2017 14:19 [facility] COMPARISON: CT PULMONARY ANGIOGRAM, March 26, 2017, 1:09. INDICATIONS : Swelling hands and face, shortness of breath. IV CONTRAST: 99 cc Omnipaque 350 (iohexol) IV RADIATION DOSE: 17.58 CTDIvol (mGy) MEDICAL HISTORY : Cardiovascular disease. Hypertension. Chronic obstructive pulmonary disease. SURGICAL HISTORY : Appendectomy. ENCOUNTER: Initial ACUITY: 1 day PAIN SCALE: 5/10 LOCATION: chest TECHNIQUE: Volumetric scanning of the chest was performed using a pulmonary embolism protocol MIP images were re constructed. Using automated exposure control and adjustment of the mA and/or kV according to patien t size, radiation dose was kept as low as reasonably achievable to obtain optimal diagnostic quality images. DICOM format image data is available electronically for review and comparison. Follow-up recommendations for detected pulmonary nodules are based at a minimum on nodule size and pa tient risk factors according to Fleischner Society Guidelines. FINDINGS: PULMONARY ARTERIES: No filling defects are seen in the pulmonary arteries through the segmental level. LUNGS: There is no pneumothorax . Mild focal infiltrate is noted within the left upper lobe posteriorly. Sc attered atelectatic changes are noted bilaterally. Minimal posterior pleural thickening is noted bila terally. No concerning pulmonary nodule is visualized. PLEURAE: There is no pleural thickening or pleural effusion. MEDIASTINUM: There is mild aneurysmal dilatation of the ascending thoracic aorta measuring 4.7 cm transverse by 4. 7 cm AP. Coronary artery calcifications are noted. The heart is stable in appearance otherwise. MUSCULOSKELETAL: Within normal limits for patient age. MISCELLANEOUS: The visualized upper abdominal organs demonstrate no acute abnormality. Right-sided PICC line has its tip in the superior vena cava. CONCLUSION: 1. No evidence of pulmonary embolism. 2. Focal infiltrate within the left upper lobe posteriorly consistent with possible pneumonia. 3. Scattered atelectatic changes bilaterally. 4. Stable aneurysmal dilatation of the ascending thoracic aorta measuring 4.7 cm in greatest dimensio n. 5. Stable cardiomegaly and coronary artery calcifications. 6. Minimal posterior pleural thickening bilaterally. Desmond Jaimes MD on October 01, 2017 at 15:11 Board Certified Radiologist. This report was verified electronically.
[2017-10-01] MEDS: RESP: ALBUTEROL 2.5 MG/IPRATROPIUM 0.5 MG NEB (SCH) INH ×2 (15:34→20:00)
--- NOTE | 2017-10-01 15:41 | PD.CONS ---
HPI History of Present Illness This is a 67 year old female with hx gastritis, esophagitis, AML, AF, CKD, c diff who presented with n/v, swelling, abd pain. GI has been consulted for anemia. Today she noticed swelling of the face, hands and feet, epigastric pain. She has nausea vomiting as well but this is chronic of late. Denies blood in vomit, diarrhea, blood in the stool. Denies any bleeding. She is doing chemo for AML, last had chemo 09/26/17 and per oncology note is expected to have worsening pancytopenia. She was evaluated by our service on her recent admission in august, for n/v. Had EGD 09/21/17 with finding mild esophagitis, severe gastritis, severe duodenitis, no bx done d/t low platelets. Her last colonoscopy was [address] Calderón with finding "inflammation." She was diagnosed with AML February 2017. Not on blood thinners, Denies NSAID use. (Amanda Lawrence) PFSH Past Medical History AML c diff esophagitis HTN HLD AF Past Surgical History appendectomy c section x 2 back surgery (Amanda Lawrence) Coded Allergies: penicillin G (Verified Allergy, Severe, 09/19/17) aspirin (Verified Allergy, Unknown, "MAKES MY STOMACH HURT A BIT", 09/19/17 ) Family History denies Social History no etoh quit smoking 5 y ago no illicit drugs (Amanda Lawrence) Review of Systems Constitutional: DENIES: Fever Endocrine: DENIES: Polydipsia Eyes: DENIES: Blurred vision Ears, nose, mouth, throat: DENIES: Hearing loss Respiratory: DENIES: Cough Cardiovascular: DENIES: Chest pain Gastrointestinal: COMPLAINS OF: Abdominal pain, Nausea, Vomiting, DENIES: Black stools, Bloody stools, Constipation, Diarrhea Genitourinary: DENIES: Hematuria Musculoskeletal: DENIES: Joint Swelling Integumentary: DENIES: Jaundice Hematologic/lymphatic: COMPLAINS OF: Bruising Neurologic: DENIES: Abnormal gait Psychiatric: DENIES: Confusion (Amanda Lawrence) GI Exam Vitals I&O Vital Signs Date Time Temp Pulse Resp B/P (MAP) Pulse Ox O2 Delivery O2 Flow Rate FiO2 10/01/17 15:00 97.8 120 18 125/78 98 10/01/17 14:46 97.6 119 20 148/75 100 10/01/17 14:38 97.6 121 20 148/75 100 10/01/17 14:00 72 18 157/92 (113) 99 Non-Rebreather 15.00 10/01/17 14:00 97.7 81 20 157/92 100 10/01/17 13:45 97.6 76 20 97 Non-Rebreather 15.00 10/01/17 13:45 98.4 76 20 112/91 95 10/01/17 13:30 76 18 112/91 (98) 74 Non-Rebreather 15.00 10/01/17 13:15 128 20 76/51 (59) 94 Non-Rebreather 15.00 10/01/17 13:11 20 94 Nasal Cannula 2.00 10/01/17 13:00 134 18 64 Non-Rebreather 15.00 10/01/17 12:45 98.4 135 20 92/57 (69) 66 Non-Rebreather 15.00 10/01/17 12:35 98.0 138 18 92/57 (69) 96 I/O 09/30/17 09/30/17 09/30/17 10/01/17 10/01/17 10/01/17 07:00 15:00 23:00 07:00 15:00 23:00 Intake Total 820 ml Balance 820 ml Intake Packed Cells 400 ml Blood Product IV Normal Saline Flush 420 ml Imaging Last Impressions CT Angiography 10/01/17 1251 Signed Impressions: Service Date/Time: Sunday, October 01, 2017 14:19 - CONCLUSION: 1. No evidence of pulmonary embolism. 2. Focal infiltrate within the left upper lobe posteriorly consistent with possible pneumonia. 3. Scattered atelectatic changes bilaterally. 4. Stable aneurysmal dilatation of the ascending thoracic aorta measuring 4.7 cm in greatest dimension. 5. Stable cardiomegaly and coronary artery calcifications. 6. Minimal posterior pleural thickening bilaterally. Desmond Jaimes MD Abdomen/Pelvis CT 10/01/17 1245 Signed Impressions: Service Date/Time: Sunday, October 01, 2017 14:19 - CONCLUSION: Minimal bowel wall thickening descending colon it could be an early mild colitis. No other etiology for the abdominal pain is evident There is no evidence for significant congestive failure. Inferior vena cava is patent. Darrell Carter MD FACR Chest X-Ray 10/01/17 0000 Signed Impressions: Service Date/Time: Sunday, October 01, 2017 12:56 - CONCLUSION: Mild compensated cardiomegaly. No free air. Darrell Carter MD FACR Laboratory Test 10/01/17 12:45 10/01/17 13:29 10/01/17 15:14 White Blood Count 21.8 TH/MM3 Red Blood Count 2.13 MIL/MM3 Hemoglobin 6.6 GM/DL Hematocrit 19.7 % Mean Corpuscular Volume 92.5 FL Mean Corpuscular Hemoglobin 31.1 PG Mean Corpuscular Hemoglobin Concent 33.6 % Red Cell Distribution Width 21.3 % Platelet Count 57 TH/MM3 Mean Platelet Volume 11.7 FL CBC Comment AUTO DIFF Differential Total Cells Counted 100 Neutrophils % (Manual) 3 % Lymphocytes % 17 % Neutrophils # (Manual) 0.7 TH/MM3 Differential Comment FINAL DIFF MANUAL Blastocytes 80 % Platelet Estimate LOW Platelet Morphology Comment ENLARGED Ovalocytes 1+ Prothrombin Time 12.4 SEC Prothromb Time International Ratio 1.2 RATIO Activated Partial Thromboplast Time 25.4 SEC Blood Urea Nitrogen 7 MG/DL Creatinine 0.74 MG/DL Random Glucose 84 MG/DL Total Protein 5.3 GM/DL Albumin 2.3 GM/DL Calcium Level 7.6 MG/DL Alkaline Phosphatase 130 U/L Aspartate Amino Transf (AST/SGOT) 18 U/L Alanine Aminotransferase (ALT/SGPT) 9 U/L Total Bilirubin 0.8 MG/DL Sodium Level 139 MEQ/L Potassium Level 3.3 MEQ/L Chloride Level 103 MEQ/L Carbon Dioxide Level 26.5 MEQ/L Anion Gap 10 MEQ/L Estimat Glomerular Filtration Rate 78 ML/MIN Lactic Acid Level 1.2 mmol/L Lipase 382 U/L Blood Gas Puncture Site LT RADIAL Blood Gas Patient Temperature 98.6 Blood Gas HCO3 27 mmol/L Blood Gas Base Excess 2.8 mmol/L Blood Gas Oxygen Saturation 11 % Arterial Blood pH 7.40 Arterial Blood Partial Pressure CO2 45 mmHg Arterial Blood Partial Pressure O2 13 mmHG Arterial Blood Oxygen Content 1.2 Vol % Arterial Blood Carboxyhemoglobin 0.9 % Arterial Blood Methemoglobin 1.0 % Blood Gas Hemoglobin 8.2 G/DL Oxygen Delivery Device Non-Rebreathing Mask Blood Gas Liter Flow 15 L/M Date/Time Source Procedure Growth Status 10/01/17 12:50 Blood Peripheral Aerobic Blood Culture Pending Received 10/01/17 12:50 Blood Peripheral Anaerobic Blood Culture Pending Received Physical Examination HEENT: PERRL; normocephalic; atraumatic; no jaundice. CHEST: CTA CARDIAC: Regular rate and rhythm with no murmur gallop or rubs. ABDOMEN: Soft, nondistended,mild epigastric TTP; no hepatosplenomegaly; bowel sounds are present in all four quadrants. EXTREMITIES: No clubbing, cyanosis, or edema. SKIN: Normal; no rash; no jaundice. 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 (Amanda Lawrence) Assessment and Plan Plan ASSESSMENT - anemia - hgb was 6.6 on admission, down from 7.8 on 09/28. no obvious source bleeding, had chemo 09/26/17 and per oncology note expected to have worsening pancytopenia in the coming weeks. Had EGD that found mild esophagitis, severe gastritis, no bx done d/t low PLT. last colonoscopy [address] Calderón found "inflammation." CT shows poss mild colitis. + c diff on PO vanc do not think she could tolerate bowel prep at this time. 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 blood transfusing. - epigastric pain - EGD as above. esophagitis, gastritis couldn't get bx. will check h pylori - n/v - persistent, 2/2 chemo? EGD as above. - thrombocytopenia - PLT 57 this admission - leukocytosis - ?leukemia. + c diff on PO vanc, denies diarrhea. afebrile. ID consulted. - AML PLAN - check stool for occult blood - h pylori stool antigen - consider hem/onc consult - monitor labs - transfuse as needed - clear liquids for now, pt happy with popsicle - PO vanc - further recs to follow pt seen by myself and Dr Hernandez and this note is written on her behalf (Amanda Lawrence) Physician Comments seen, examined agree with above clear liquid diet (Quynh Hernandez MD) Amanda Lawrence Oct 01, 2017 15:41 Quynh Hernandez MD Oct 01, 2017 17:44
[2017-10-01 15:49] LABS: BACTERIA, URINE MANY /hpf; BILIRUBIN, URINE NEG (NEG); BLOOD, URINE TRACE (NEG); GLUCOSE,URINE NEG (NEG); KETONE, URINE TRACE mg/dL (NEG); MUCUS URINE FEW /lpf (OCC); NITRITE,URINE NEG (NEG); PH, URINE 7.5 (5.0-8.5); SQUAMOUS EPITHELIAL CELL URINE 11 /hpf (0-5); TRANSITIONAL EPI CELLS, URINE 1 /hpf; URINE COLOR YELLOW (YELLW/STRAW); URINE LEUKOCYTE ESTERASE MOD (NEG)
--- NOTE | 2017-10-01 15:52 | RADRPT ---
EXAM DATE/TIME: 10/01/2017 14:03 [facility] COMPARISON: CHEST SINGLE AP, October 01, 2017, 12:56. INDICATIONS : Evaluate central line placement. MEDICAL HISTORY : Hypertension. Chronic obstructive pulmonary disease. SURGICAL HISTORY : Appendectomy. section. ENCOUNTER: Initial ACUITY: 1 day PAIN SCORE: 0/10 LOCATION: Left chest FINDINGS: Left subclavian central line has its tip in superior vena cava. There is no pneumothorax. Discoid ate lectasis is noted within the left midlung field. Right-sided PICC line is noted with its tip in the s uperior vena cava. No focal alveolar consolidation is noted. CONCLUSION: No pneumothorax status post placement of left subclavian central line which has its tip in the superi or vena cava. Discoid atelectasis within the left midlung field. Desmond Jaimes MD on October 01, 2017 at 15:40 Board Certified Radiologist. This report was verified electronically.
[2017-10-01] MEDS: DEXTROSE 50% IN WATER 50 ML VIAL(D50) IV PUSH PRN (16:27)
[2017-10-01] MEDS: POTASSIUM PHOSPHATE INJ 30 MMOL in SODIUM CHLOR 0.9% 250 ML INJ 250 ML IV PRN (18:17)
[2017-10-01 18:55] LABS: HEMATOCRIT 30.1 % (35.0-46.0); HEMOGLOBIN 10.5 GM/DL (11.6-15.3)
[2017-10-01] MEDS: FAMOTIDINE 20 MG/2 ML VIAL IV PUSH SCH (20:21)
--- NOTE | 2017-10-01 20:39 | MH ---
cc: KINSEY MATSON M.D. DATE OF ADMISSION 10/01/2017 DATE OF 1950 HISTORY OF THE PRESENT ILLNESS The patient is a 67-year-old female with a past medical history of COPD, atrial fibrillation, AML who was recently discharged from [facility] on September 28 after she was admitted for intractable nausea, vomiting, abdominal pain and C diff colitis. The patient presented to [facility] ED with nausea, abdominal pain and similar presentation to her most recent admission. On arrival she was tachycardiac and she became hypotensive in the ED with systolic blood pressure in the 90s. In addition she was hypoxic with saturation in the 60s. The patient was given one liter bolus of normal saline with improvements of her hemodynamics. Her laboratory data significant for anemia with hemoglobin 6.6, leukocytosis with WBC of 21.8. Her lactic acid level measured at 1.2. She is currently receiving first out of two units of PRBCs that were ordered by the ED. When seen in the ER the patient is awake, alert. She was on a non-rebreather. However, she has been weaned down to nasal cannula. She was comfortable and reports some abdominal cramps with feeling nauseous. CT abdomen and pelvis in the ED showed minimal bowel wall thickening and descending colon which could be an early mild colitis. The patient also underwent CT angiogram of the chest which showed no evidence of PE however it showed focal infiltrate within the left upper lobe and scattered atelectatic changes bilaterally. Stable aneurysmal dilatation of the ascending thoracic aorta measuring 4.7 cm. The patient denies any chest pain, orthopnea, PND. She denies any diarrhea at the present time. She had a normal bowel movement yesterday. PAST MEDICAL HISTORY The past medical history significant for: 1. AML last chemotherapy on September 26. 2. Atrial fibrillation. 3. COPD. 4. Recent C diff colitis. 5. Anemia. 6. History of hypertension. 7. Hypothyroidism. PAST SURGICAL HISTORY 1. Previous right upper extremity PICC line placed on September 21. 2. Previous appendectomy. 3. x2. 4. Previous abdominal surgery. SOCIAL HISTORY Nonsmoker, nondrinker. ALLERGIES ASPIRIN AND PENICILLIN-G. MEDICATIONS Reported medications include: 1. Protonix. 2. Vancomycin. 3. Simvastatin. 4. Metoprolol. 5. Carafate. FAMILY HISTORY Noncontributory to the current present illness. REVIEW OF SYSTEMS As per the history of present illness. The rest of the review of symptoms unremarkable. PHYSICAL EXAMINATION GENERAL: A 67-year-old female lying in bed in mild respiratory distress. VITAL SIGNS: Temperature 97.8, pulse of 117, blood pressure currently 148/75, saturation 94%. HEENT: Atraumatic, normocephalic. Pupils equal, round and reactive to light and accommodation. Extraocular muscles intact. Conjunctivae pink. Nonicteric sclerae. Oral mucosa within normal. NECK: Supple. No JVD, adenopathy or thyromegaly. Trachea midline. CARDIOVASCULAR: Tachycardiac. Normal S1-S2. No murmurs, rubs or gallops noted. LUNGS: Pulmonary exam bilateral equal air entry. No crackles. ABDOMEN: Soft. Mild tenderness on palpation. Positive bowel sounds. EXTREMITIES: No cyanosis, clubbing or edema noted. NEUROLOGIC: No focal sensory deficit. LABORATORY DATA WBC 21.8, hemoglobin 6.6, hematocrit 19, platelet count of 57. Sodium 139, potassium 3.3, chloride 103, CO2 26, BUN 7, creatinine 0.74, glucose 84, lactic acid 1.2. Lipase 382. INR 1.2, PT 12.4, PTT 25.4. The urinalysis pending. IMAGING Radiographic studies CT of abdomen and pelvis showed minimal bowel wall thickening descending colon which could be an early mild colitis. CT angiogram of the chest, no evidence of PE however it showed focal infiltrate in the left upper lobe. Chest x-ray showed mild cardiomegaly and no free air. IMPRESSION 1. Respiratory insufficiency. 2. Sepsis. 3. Anemia. 4. Thrombocytopenia. 5. Leukocytosis. 6. C diff colitis. 7. AML status post chemotherapy on September 26. 8. History of chronic obstructive pulmonary disease. 9. History of atrial fibrillation. 10. Hypokalemia. RECOMMENDATIONS 1. Monitor neuro status closely and avoid any sedatives. 2. Continue with oxygen to maintain sats above 92%. 3. Bronchodilators in the form of DuoNeb q.4 plus q.2h as needed for shortness of breath. 4. Monitor heart rate and blood pressure closely and maintain MAP greater than 65 mmHg. Lactic acid level measured at 1.2 in the ED. She was given 1 liter bolus of normal saline. We will continue with maintenance fluids NS at 84 ml an hour. 5. Monitor renal function Is and Os and electrolyte replacement per protocol. Will need a potassium replacement. 6. Keep n.p.o. for now and place on Pepcid 20 mg IV q.12. 7. Will consult GI service. 8. The patient is being transfused 2 units of PRBCs total. Will check H&H in one hour post transfusion and consult GI. She might need upper endoscopy and colonoscopy. 9. Place on Flagyl 500 mg IV q.8h and vancomycin p.o. 125 mg q.i.d. for treatment of his C diff. Will consult infectious disease service. CT scan of the abdomen and pelvis showed early colitis. Followup on blood cultures. In addition we will check strep pneumonia and Legionella urinary antigen and a sputum culture with gram stain. 10. Monitor for signs infections which include fever and WBC. 11. Place on sliding scale insulin with Accu-Cheks to maintain euglycemia. 12. GI prophylaxis with Pepcid 20 mg q.12 and DVT prophylaxis with SCDs. Will hold off on chemical anticoagulation prophylaxis given severe anemia on arrival. 13. Lines. A PICC line was placed on September 21. In addition left subclavian central line was placed by the ED physician. MD WILLIAMS Joshi/TALIA /3:31 PM /7:36 PM
[2017-10-01] MEDS ORDERED: ACETAMINOPHEN 325 MG TAB PO PRN (21:30)
--- NOTE | 2017-10-01 21:50 | EKG ---
Date Performed: 10/01/2017 Time Performed: 12:44:25 PTAGE: 67 years EKG: ATRIAL FLUTTER/TACHYCARDIA WITH RAPID VENTRICULAR RESPONSE LOW QRS VOLTAGE ABNORMAL ECG PREVIOUS TRACING : 09/25/2017 21.36 DOCTOR: Venu Watters Interpretating Date/Time 10/01/2017 21:48:38
[2017-10-01] MEDS: MORPHINE SULFATE 2 MG/ML INJ IV PUSH PRN (21:58)
[2017-10-01 23:58] LABS: HEMATOCRIT 28.6 % (35.0-46.0); HEMOGLOBIN 9.9 GM/DL (11.6-15.3); MEAN CELL VOLUME 90.7 FL (80.0-100.0); MEAN CORPUSCULAR HEMOGLOBIN 31.4 PG (27.0-34.0); MEAN CORPUSCULAR HGB CONC 34.6 % (32.0-36.0); MEAN PLATELET VOLUME 10.3 FL (7.0-11.0); PLATELET COUNT 32 TH/MM3 (150-450); RED BLOOD COUNT 3.15 MIL/MM3 (4.00-5.30); RED CELL DISTRIBUTION WIDTH 18.9 % (11.6-17.2); WHITE BLOOD COUNT 10.9 TH/MM3 (4.0-11.0)
[2017-10-02] VITALS (10 sets, daily range): BP systolic 89–126; BP diastolic 58–78; PULSE 119–138; RESP 16–18; TEMP 98–98.9; O2SAT 97–100
[2017-10-02 00:18] LABS: CALCIUM 6.8 MG/DL (8.5-10.1); CREATININE 0.63 MG/DL (0.50-1.00); MAGNESIUM 1.5 MG/DL (1.5-2.5)
[2017-10-02 00:27] LABS: BLASTS 74 % (0-0); CORRECTED NUCLEATED RBC 3 /100 WBC (0-0); LYMPHOCYTES 23 % (9-44); MONOCYTES 1 % (0-8); NEUTROPHIL # MANUAL DIFF 0.2 TH/MM3 (1.8-7.7); NUCLEATED RED BLOOD CELL 3 (0-0); POLYS (SEG NEUTROPHILS) 2 % (16-70)
[2017-10-02 00:28] LABS: OVALOCYTES 1+ (NORMAL)
[2017-10-02 00:29] LABS: CALCIUM-PROTEIN CORRECTED 8.1 MG/DL (8.5-10.1); TOTAL PROTEIN 4.7 GM/DL (6.4-8.2)
[2017-10-02] MEDS: POTASSIUM CHLOR 20 MEQ PREMIX 100 ML IV PRN ×2 (01:46→04:00)
[2017-10-02] MEDS: INSULIN NovoLIN REGULAR SUPPLEMENTAL SCALE SQ SCH ×4 (02:19→20:32)
[2017-10-02] MEDS: SODIUM CHLOR 0.9% 1000 ML INJ 1,000 ML IV SCH ×2 (02:20→14:22)
[2017-10-02] MEDS: RESP: ALBUTEROL 2.5 MG/IPRATROPIUM 0.5 MG NEB (SCH) INH ×7 (04:00→23:18)
[2017-10-02] MEDS: CHLORHEXIDINE GLUCONATE 2 % 1 PACK (2 CLOTHS) TOP SCH (04:00)
[2017-10-02] MEDS: MORPHINE SULFATE 2 MG/ML INJ IV PUSH PRN ×2 (04:33→20:34)
[2017-10-02 05:28] LABS: HEMATOCRIT 29.3 % (35.0-46.0); HEMOGLOBIN 10.2 GM/DL (11.6-15.3); MEAN CELL VOLUME 90.1 FL (80.0-100.0); MEAN CORPUSCULAR HEMOGLOBIN 31.3 PG (27.0-34.0); MEAN CORPUSCULAR HGB CONC 34.7 % (32.0-36.0); MEAN PLATELET VOLUME 10.1 FL (7.0-11.0); PLATELET COUNT 29 TH/MM3 (150-450); RED BLOOD COUNT 3.25 MIL/MM3 (4.00-5.30); RED CELL DISTRIBUTION WIDTH 18.8 % (11.6-17.2); WHITE BLOOD COUNT 10.2 TH/MM3 (4.0-11.0)
[2017-10-02 05:45] LABS: ALBUMIN 2.1 GM/DL (3.4-5.0); ALKALINE PHOSPHATASE 110 U/L (45-117); ALT (GPT) LESS THAN 6 U/L (10-53); AST (GOT) 14 U/L (15-37); BICARBONATE 27.3 MEQ/L (21.0-32.0); BLOOD UREA NITROGEN 6 MG/DL (7-18); CALCIUM 6.6 MG/DL (8.5-10.1); CALCIUM-PROTEIN CORRECTED 7.9 MG/DL (8.5-10.1); CHLORIDE 107 MEQ/L (98-107); CREATININE 0.66 MG/DL (0.50-1.00); GLOMERULAR FILTRATION RATE 89 ML/MIN (>89); GLUCOSE,RANDOM 73 MG/DL (74-106); SODIUM (NA) 142 MEQ/L (136-145); TOTAL BILIRUBIN ADULT 0.8 MG/DL (0.2-1.0); TOTAL PROTEIN 4.6 GM/DL (6.4-8.2)
[2017-10-02] MEDS: metroNIDAZOLE 500 MG INJ 100 ML IV SCH ×3 (06:14→20:32)
--- NOTE | 2017-10-02 07:03 | HHI.CCPN ---
Subjective Remarks/Hospital Course Patient is a 67-year-old female with a past medical history of COPD, atrial fibrillation, AML who was recently discharged from [facility] on September 28 after she was admitted for intractable nausea, vomiting, abdominal pain and C diff colitis. The patient presented to [facility] ED with nausea, abdominal pain and similar presentation to her most recent admission. On arrival she was tachycardiac and she became hypotensive in the ED with systolic blood pressure in the 90s. In addition she was hypoxic with saturation in the 60s. The patient was given one liter bolus of normal saline with improvements of her hemodynamics. Her laboratory data significant for anemia with hemoglobin 6.6, leukocytosis with WBC of 21.8. Her lactic acid level measured at 1.2. She is currently receiving first out of two units of PRBCs that were ordered by the ED. When seen in the ER the patient is awake, alert. She was on a non-rebreather. However, she has been weaned down to nasal cannula. She was comfortable and reports some abdominal cramps with feeling nauseous. CT abdomen and pelvis in the ED showed minimal bowel wall thickening and descending colon which could be an early mild colitis. The patient also underwent CT angiogram of the chest which showed no evidence of PE however it showed focal infiltrate within the left upper lobe and scattered atelectatic changes bilaterally. Stable aneurysmal dilatation of the ascending thoracic aorta measuring 4.7 cm. The patient denies any chest pain, orthopnea, PND. She denies any diarrhea at the present time. She had a normal bowel movement yesterday. 10/02 Patient s/p transfusion 2u PRBC yesterday Hgb 10.2 from 6.6. WBC is trending down 10.2 from 21. Afebrile. Objective Vital Signs Date Time Temp Pulse Resp B/P (MAP) Pulse Ox O2 Delivery O2 Flow Rate FiO2 10/02/17 04:00 98.6 125 18 114/72 (86) 100 10/01/17 19:05 Nasal Cannula 3.00 Intake and Output 10/02/17 10/02/17 10/03/17 08:00 16:00 00:00 Intake Total 1813 ml Balance 1813 ml Result Diagram: 10/02/17 0435 10/02/17 0435 Other Results Laboratory Tests Test 10/01/17 12:45 10/01/17 13:29 10/01/17 15:14 10/01/17 17:00 White Blood Count 21.8 TH/MM3 Red Blood Count 2.13 MIL/MM3 Hemoglobin 6.6 GM/DL Hematocrit 19.7 % Mean Corpuscular Volume 92.5 FL Mean Corpuscular Hemoglobin 31.1 PG Mean Corpuscular Hemoglobin Concent 33.6 % Red Cell Distribution Width 21.3 % Platelet Count 57 TH/MM3 Mean Platelet Volume 11.7 FL CBC Comment AUTO DIFF Differential Total Cells Counted 100 Neutrophils % (Manual) 3 % Lymphocytes % 17 % Neutrophils # (Manual) 0.7 TH/MM3 Differential Comment FINAL DIFF MANUAL Blastocytes 80 % Platelet Estimate LOW Platelet Morphology Comment ENLARGED Ovalocytes 1+ Prothrombin Time 12.4 SEC Prothromb Time International Ratio 1.2 RATIO Activated Partial Thromboplast Time 25.4 SEC Blood Urea Nitrogen 7 MG/DL Creatinine 0.74 MG/DL Random Glucose 84 MG/DL Total Protein 5.3 GM/DL Albumin 2.3 GM/DL Calcium Level 7.6 MG/DL Alkaline Phosphatase 130 U/L Aspartate Amino Transf (AST/SGOT) 18 U/L Alanine Aminotransferase (ALT/SGPT) 9 U/L Total Bilirubin 0.8 MG/DL Sodium Level 139 MEQ/L Potassium Level 3.3 MEQ/L Chloride Level 103 MEQ/L Carbon Dioxide Level 26.5 MEQ/L Anion Gap 10 MEQ/L Estimat Glomerular Filtration Rate 78 ML/MIN Lactic Acid Level 1.2 mmol/L Phosphorus Level 2.3 MG/DL Lipase 382 U/L Blood Gas Puncture Site LT RADIAL Blood Gas Patient Temperature 98.6 Blood Gas HCO3 27 mmol/L Blood Gas Base Excess 2.8 mmol/L Blood Gas Oxygen Saturation 11 % Arterial Blood pH 7.40 Arterial Blood Partial Pressure CO2 45 mmHg Arterial Blood Partial Pressure O2 13 mmHG Arterial Blood Oxygen Content 1.2 Vol % Arterial Blood Carboxyhemoglobin 0.9 % Arterial Blood Methemoglobin 1.0 % Blood Gas Hemoglobin 8.2 G/DL Oxygen Delivery Device Non-Rebreathing Mask Blood Gas Liter Flow 15 L/M Urine Color YELLOW Urine Turbidity CLOUDY Urine pH 7.5 Urine Specific [place] 1.013 Urine Protein NEG mg/dL Urine Glucose (UA) NEG mg/dL Urine Ketones TRACE mg/dL Urine Occult Blood TRACE Urine Nitrite NEG Urine Bilirubin NEG Urine Urobilinogen 2.0 MG/DL Urine Leukocyte Esterase MOD Urine RBC 2 /hpf Urine WBC 6 /hpf Urine Squamous Epithelial Cells 11 /hpf Urine Transitional Epithelial Cells 1 /hpf Urine Bacteria MANY /hpf Urine Mucus FEW /lpf Microscopic Urinalysis Comment CULTURE INDICATED Nasal Screen MRSA (PCR) MRSA NOT DETECTED Test 10/01/17 17:38 10/01/17 23:35 10/02/17 04:35 Hemoglobin 10.5 GM/DL 9.9 GM/DL 10.2 GM/DL Hematocrit 30.1 % 28.6 % 29.3 % White Blood Count 10.9 TH/MM3 10.2 TH/MM3 Red Blood Count 3.15 MIL/MM3 3.25 MIL/MM3 Mean Corpuscular Volume 90.7 FL 90.1 FL Mean Corpuscular Hemoglobin 31.4 PG 31.3 PG Mean Corpuscular Hemoglobin Concent 34.6 % 34.7 % Red Cell Distribution Width 18.9 % 18.8 % Platelet Count 32 TH/MM3 29 TH/MM3 Mean Platelet Volume 10.3 FL 10.1 FL CBC Comment AUTO DIFF AUTO DIFF Differential Total Cells Counted 100 Neutrophils % (Manual) 2 % Lymphocytes % 23 % Monocytes % 1 % Neutrophils # (Manual) 0.2 TH/MM3 Nucleated Red Blood Cells 3 /100 WBC Differential Comment FINAL DIFF MANUAL Blastocytes 74 % Platelet Estimate LOW Platelet Morphology Comment NORMAL Ovalocytes 1+ Blood Urea Nitrogen 6 MG/DL 6 MG/DL Creatinine 0.63 MG/DL 0.66 MG/DL Random Glucose 72 MG/DL 73 MG/DL Total Protein 4.7 GM/DL 4.6 GM/DL Calcium Level 6.8 MG/DL 6.6 MG/DL Phosphorus Level 5.0 MG/DL Magnesium Level 1.5 MG/DL Sodium Level 142 MEQ/L 142 MEQ/L Potassium Level 3.4 MEQ/L 4.0 MEQ/L Chloride Level 106 MEQ/L 107 MEQ/L Carbon Dioxide Level 28.0 MEQ/L 27.3 MEQ/L Anion Gap 8 MEQ/L 8 MEQ/L Estimat Glomerular Filtration Rate 94 ML/MIN 89 ML/MIN Protein Corrected Calcium 8.1 MG/DL 7.9 MG/DL Albumin 2.1 GM/DL Alkaline Phosphatase 110 U/L Aspartate Amino Transf (AST/SGOT) 14 U/L Alanine Aminotransferase (ALT/SGPT) LESS THAN 6 U/L Total Bilirubin 0.8 MG/DL Imaging Last Impressions Chest X-Ray 10/01/17 1357 Signed Impressions: Service Date/Time: Sunday, October 01, 2017 14:03 - CONCLUSION: No pneumothorax status post placement of left subclavian central line which has its tip in the superior vena cava. Discoid atelectasis within the left midlung field. Desmond Jaimes MD CT Angiography 10/01/17 1251 Signed Impressions: Service Date/Time: Sunday, October 01, 2017 14:19 - CONCLUSION: 1. No evidence of pulmonary embolism. 2. Focal infiltrate within the left upper lobe posteriorly consistent with possible pneumonia. 3. Scattered atelectatic changes bilaterally. 4. Stable aneurysmal dilatation of the ascending thoracic aorta measuring 4.7 cm in greatest dimension. 5. Stable cardiomegaly and coronary artery calcifications. 6. Minimal posterior pleural thickening bilaterally. Desmond Jaimes MD Abdomen/Pelvis CT 10/01/17 1245 Signed Impressions: Service Date/Time: Sunday, October 01, 2017 14:19 - CONCLUSION: Minimal bowel wall thickening descending colon it could be an early mild colitis. No other etiology for the abdominal pain is evident There is no evidence for significant congestive failure. Inferior vena cava is patent. Darrell Carter MD FACR Objective Remarks GENERAL: Patient is 67 yo lying in bed in NAD SKIN: Warm and dry. HEAD: Normocephalic. EYES: No scleral icterus. No injection or drainage. NECK: Supple, trachea midline. No JVD or lymphadenopathy. CARDIOVASCULAR: Regular rate and rhythm without murmurs, gallops, or rubs. RESPIRATORY: Breath sounds equal bilaterally. No accessory muscle use. GASTROINTESTINAL: Abdomen soft, non-tender, nondistended. MUSCULOSKELETAL: No cyanosis, or edema. Neuro: Awake and alert. A/P Assessment and Plan 1. Respiratory insufficiency. 2. Sepsis. 3. Anemia. 4. Thrombocytopenia. 5. Leukocytosis...resolved 6. C diff colitis. 7. AML status post chemotherapy on September 26. 8. History of chronic obstructive pulmonary disease. 9. History of atrial fibrillation. 10. Hypokalemia. Plan Neuro: Monitor neuro status and avoid any sedatives. Pulm: Continue with oxygen to maintain sats >92%. Bronchodilators CV: Monitor HR and BP maintain MAP> 65 mmHg. Lactic acid 1.2 . Given 1 liter NS in ED. Continue IVF. : Monitor renal function Is and Os and electrolyte replacement per protocol. Change IVF D5NS@50ml/hr GI: On Pepcid 20 mg IV q.12. GI is following On clear liquid diet. Heme/Onc : s/p transfusion 2 units of PRBCs Onc consulted- Dr. Yarbrough ID: Continue abx- Flagyl 500 mg IV q.8h and vancomycin p.o. [address] abdomen and pelvis showed early colitis. Followup on blood cultures, strep pneumonia and Legionella urinary antigen pending Monitor for signs infections( fever and WBC). Endo: SSI with Accu-Cheks to maintain euglycemia. GI prophylaxis with Pepcid 20 mg q.12 and DVT prophylaxis with SCDs. Not on chemical AC prophylaxis given severe anemia . Lines. PICC line placed on September 21. left subclavian CVP placed by the ED physician. Will sign off and transfer care to [facility] Level 2 Prince Dawson MD Oct 02, 2017 07:03
[2017-10-02 07:07] LABS: BLASTS 63 % (0-0); LYMPHOCYTES 31 % (9-44); NEUTROPHIL # MANUAL DIFF 0.6 TH/MM3 (1.8-7.7); POLYS (SEG NEUTROPHILS) 6 % (16-70)
[2017-10-02 07:08] LABS: OVALOCYTES 1+ (NORMAL); TEARDROP RBCS 1+ (NORMAL)
--- NOTE | 2017-10-02 08:15 | PD.ID.CON ---
History of Present Illness Service ID Consult Requested By Reason for Consult Evaluation and M'ment of Possible Sepsis, Cdiff Colitis. Primary Care Physician Unknown Diagnoses: History of Present Illness Ms. Richard is a very pleasant 67-year-old female of [place] origin. She is known to [facility] . 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 Per review of notes, based on bone marrow biopsy findings, she was found to have a background of myelodysplasia. She was a poor candidate for intense systemic chemotherapy due to her advanced COPD and at the time A. Fib with RVR. She was therefore treated with Dacogen and responded quite well to this treatment with significant reduction in circulating leukemic blasts. Following that, she received two additional outpatient doses of Dacogen for a total of three. Over the past 2-1/2 months, she has had a series of hospitalizations ( two at [facility] and one at [facility]) for symptoms ranging from anal fissures to nausea and vomiting. She was admitted at [facility] in week of Aug 2017 with complaints of nausea, vomiting, abdominal pain, constipation and inability to hold down solids and liquids. She underwent EGD which showed mild esophagitis, Severe gastritis mostly in the body of the stomach and severe duodenitis. She was noted to have an elevated WBC count of 20.5 with ANC of 0.8 and circulating blasts. Patient was thought to have resurgence of her leukemia. Patient was seen by GI and underwent endoscopies. She also had Cdiff tested for period of diarrhea and is positive for Cdiff (BNAP negative). Patient was started on Oral flagyl but since patient has persistent N/V this was switched to IV Flagyl and ID consulted for evaluation and Mment of Cdiff in Immune compromised patient given oral route options cannot be tolerated. Vanco oral was tried and tolerated. Flagyl IV stopped and patient continued to improve. Carafate was added for her severe symptomatic gastritis and she appeared to be doing well and subsequently was discharged home by hospitalist. Of note she did receive systemic chemotherapy Dacogen during that admission. Patient does not remember being told by me that she had cdiff and what the oral vanco was for. With this back ground patient presented to [facility] ED with nausea , abdominal pain and similar presentation to her most recent admission. On arrival she was tachycardiac and she became hypotensive in the ED with systolic blood pressure in the 90s. In addition she was hypoxic with saturation in the 60s. The patient was given one liter bolus of normal saline with improvements of her hemodynamics. Her laboratory data significant for anemia with hemoglobin 6.6, leukocytosis with WBC of 21.8. Her lactic acid level measured at 1.2. Overnight she received two units of PRBCs that were ordered by the ED. CT abdomen and pelvis in the ED showed minimal bowel wall thickening and descending colon which could be an early mild colitis. The patient also underwent CT angiogram of the chest which showed no evidence of PE however it showed focal infiltrate within the left upper lobe and scattered atelectatic changes bilaterally. Stable aneurysmal dilatation of the ascending thoracic aorta measuring 4.7 cm. Patient reports some abdominal cramps with feeling of nausea. The patient denies any chest pain, orthopnea, PND. She denies any diarrhea at the present time. She had a normal bowel movement semi formed since admission. At the time of my evaluation patient is in the intensive medical care unit. Dr. Dawson discussed the case with him briefly yesterday to her known history of C. difficile and presence of colitis CT abdomen pelvis decided to withhold any further IV antibiotics due to concern for flaring of the C. difficile. Overnight patient did fairly well without any systemic antibiotics. Chest x- ray was reviewed with Dr. Dawson and Dr. Yarbrough the left lobe infiltrates could be of infectious or non infectious etiology (leukemic infiltrates). Review of Systems ROS Limitations: Poor Historian Constitutional: DENIES: Diaphoretic episodes, Fatigue, Fever, Weight gain, Weight loss, Chills, Dizziness, Change in appetite, Night Sweats Endocrine: DENIES: Abnorml menstrual pattern, Heat/cold intolerance, Polydipsia , Polyuria, Polyphagia Eyes: DENIES: Blurred vision, Diplopia, Eye inflammation, Eye pain, Vision loss , Photosensitivity, Double Vision Ears, nose, mouth, throat: DENIES: Tinnitus, Hearing loss, Vertigo, Nasal discharge, Oral lesions, Throat pain, Hoarseness, Ear Pain, Running Nose, Epistaxis, Sinus Pain, Toothache, Odynophagia Respiratory: DENIES: Apneas, Cough, Snoring, Wheezing, Hemoptysis, Sputum production, Shortness of breath Cardiovascular: DENIES: Chest pain, Palpitations, Syncope, Dyspnea on Exertion , PND, Lower Extremity Edema, Orthopnea, Claudication Gastrointestinal: COMPLAINS OF: Nausea, DENIES: Abdominal pain, Black stools, Bloody stools, Constipation, Diarrhea, Vomiting, Difficulty Swallowing, Anorexia Genitourinary: DENIES: Abnormal vaginal bleeding, Dysmenorrhea, Dyspareunia, Sexual dysfunction, Urinary frequency, Urinary incontinence, Urgency, Hematuria , Dysuria, Nocturia, Vaginal discharge Musculoskeletal: DENIES: Joint pain, Muscle aches, Stiffness, Joint Swelling, Back pain, Neck pain Integumentary: DENIES: Abnormal pigmentation, Pruritus, Rash, Nail changes, Breast masses, Breast skin changes, Nipple discharge Hematologic/lymphatic: DENIES: Bruising, Lymphadenopathy Immunologic/allergic: DENIES: Eczema, Urticaria Neurologic: DENIES: Abnormal gait, Headache, Localized weakness, Paresthesias, Seizures, Speech Problems, Tremor, Poor Balance Psychiatric: DENIES: Anxiety, Confusion, Mood changes, Depression, Hallucinations, Agitation, Suicidal Ideation, Homicidal Ideation, Delusions Except as stated in HPI: all other systems reviewed are Neg Past Family Social History Allergies: Coded Allergies: penicillin G (Verified Allergy, Severe, 09/19/17) aspirin (Verified Allergy, Unknown, "MAKES MY STOMACH HURT A BIT", 09/19/17 ) Past Medical History 1. 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 2. COPD 3. Atrial fibrillation 4. Anxiety 5. Chronic nausea 6. Hypothyroidism 7. History of obesity. 8. Personal history of tobaccoism. Past Surgical History 1. Appendectomy 2. Bone marrow biopsy and aspiration. 3. section 4. Varicose vein surgery 5. Colonoscopy Reported Medications Reported Meds & Active Scripts Active Pantoprazole (Pantoprazole Sodium) 40 Mg Tab 40 Mg PO DAILY Dronabinol 5 Mg Cap 5 Mg PO BID@11,16 Sucralfate Liq (Sucralfate) 1 Gram/10 Ml [place] 1 Gm PO ACHS 30 Days Vancomycin Inj (Vancomycin HCl) 500 Mg Inj 125 Mg PO QID 6 Days to be used orally 500 mg po qid for 6 days Reported Atorvastatin (Atorvastatin Calcium) 40 Mg Tab 40 Mg PO HS Metoprolol Tartrate 25 Mg Tab 25 Mg PO BID Active Ordered Medications Current Medications Medications (Trade) Dose Ordered Sig/Tylor Route Start Time Stop Time Status Last Admin (NS Flush) 2 ml UNSCH PRN IV FLUSH 10/01/17 12:45 (Pepcid Inj) 20 mg Q12HR IV PUSH 10/01/17 21:00 10/01/17 20:21 (Duoneb Neb) 1 ampule Q4HR NEB INH 10/01/17 16:00 10/01/17 15:34 (Duoneb Neb) 1 ampule Q2HR NEB PRN INH 10/01/17 14:00 Miscellaneous Information 1 [id number] XX 10/01/17 14:00 (Chlorhexidine 2% Cloth) 3 pack Taper DAILY@04 TOP 10/02/17 04:00 09/28/18 03:59 10/02/17 04:00 (Chlorhexidine 2% Cloth) 3 pack UNSCH PRN TOP 10/01/17 14:00 Metronidazole 100 ml @ 100 mls/hr Q8H IV 10/01/17 14:00 10/02/17 06:14 (VANCOMYCIN for oral use only) 125 mg QID PO 10/01/17 15:00 10/01/17 20:21 Potassium Chloride 100 ml @ 50 mls/hr Q2H PRN IV 10/01/17 15:00 Potassium Chloride 100 ml @ 50 mls/hr Q2H PRN IV 10/01/17 15:00 (K-Lyte Cl Eff) 50 meq UNSCH PRN PO 10/01/17 15:00 Potassium Chloride 100 ml @ 25 mls/hr UNSCH PRN IV 10/01/17 15:00 Potassium Chloride 100 ml @ 50 mls/hr Q2H PRN IV 10/01/17 15:00 10/02/17 04:00 Magnesium Sulfate 4 gm/Sodium Chloride 100 ml @ 50 mls/hr UNSCH PRN IV 10/01/17 15:00 (Mag-Ox) 800 mg UNSCH PRN PO 10/01/17 15:00 Magnesium Sulfate 2 gm/Sodium Chloride 100 ml @ 50 mls/hr UNSCH PRN IV 10/01/17 15:00 (K-Phos) 2,000 mg Q4H PRN PO 10/01/17 15:00 Sodium Phosphate 30 mmol/Sodium Chloride 250 ml @ 42 mls/hr UNSCH PRN IV 10/01/17 15:00 (K-Phos) 2,000 mg UNSCH PRN PO/TUBE 10/01/17 15:00 Potassium Phosphate 30 mmol/ Sodium Chloride 260 ml @ 42 mls/hr UNSCH PRN IV 10/01/17 15:00 10/01/17 18:17 Sodium Chloride 1,000 ml @ 84 mls/hr [id number] IV 10/01/17 15:00 10/02/17 02:20 (D50w (Vial) Inj) 50 ml UNSCH PRN IV PUSH 10/01/17 15:00 10/01/17 16:27 (Glucagon Inj) 1 mg UNSCH PRN OTHER 10/01/17 15:00 (NovoLIN R SUPPLEMENTAL SCALE) 1 Q6H SQ 10/01/17 15:00 (Morphine Inj) 2 mg Q3H PRN IV PUSH 10/01/17 21:30 10/02/17 04:33 (Tylenol) 650 mg Q4H PRN PO 10/01/17 21:30 Family History Reviewed and noncontributory to infectious disease problems. Social History Originally from [place]. Lives with her daughter and son in law. Physical Exam Vital Signs Vital Signs Date Time Temp Pulse Resp B/P (MAP) Pulse Ox O2 Delivery O2 Flow Rate FiO2 10/02/17 04:00 98.6 125 18 114/72 (86) 100 10/02/17 00:00 98.0 119 18 122/76 (91) 98 10/01/17 20:00 98.3 123 29 129/81 (97) 99 10/01/17 19:05 97 Nasal Cannula 3.00 10/01/17 17:00 97.7 117 16 95/54 (68) 100 10/01/17 17:00 118 10/01/17 16:55 124 16 120/68 (85) 98 10/01/17 16:28 97.8 125 18 124/81 98 10/01/17 15:34 100 Nasal Cannula 4.00 10/01/17 15:00 97.8 120 18 125/78 98 10/01/17 14:46 97.6 119 20 148/75 100 10/01/17 14:38 97.6 121 20 148/75 100 10/01/17 14:00 72 18 157/92 (113) 99 Non-Rebreather 15.00 10/01/17 14:00 97.7 81 20 157/92 100 10/01/17 13:45 97.6 76 20 97 Non-Rebreather 15.00 10/01/17 13:45 98.4 76 20 112/91 95 10/01/17 13:30 76 18 112/91 (98) 74 Non-Rebreather 15.00 10/01/17 13:15 128 20 76/51 (59) 94 Non-Rebreather 15.00 10/01/17 13:11 20 94 Nasal Cannula 2.00 10/01/17 13:00 134 18 64 Non-Rebreather 15.00 10/01/17 12:45 98.4 135 20 92/57 (69) 66 Non-Rebreather 15.00 10/01/17 12:35 98.0 138 18 92/57 (69) 96 Physical Exam GENERAL: This is a well-nourished, well-developed patient, in no apparent distress. SKIN: No rashes, ecchymoses or lesions. Cool and dry. HEAD: Atraumatic. Normocephalic. No temporal or scalp tenderness. EYES: Pupils equal round and reactive. Extraocular motions intact. No scleral icterus. No injection or drainage. ENT: Nose without bleeding, purulent drainage or septal hematoma. Throat without erythema, tonsillar hypertrophy or exudate. Uvula midline. Airway patent. NECK: Trachea midline. Supple, nontender, no meningeal signs. CARDIOVASCULAR: Regular rate and rhythm without murmurs, gallops, or rubs. RESPIRATORY: Clear to auscultation. Breath sounds equal bilaterally. No wheezes , rales, or rhonchi. GASTROINTESTINAL: Abdomen soft, diffuse tenderness. MUSCULOSKELETAL: Extremities without clubbing, cyanosis, or edema. No joint tenderness, effusion, or edema noted. No calf tenderness. Negative Homans sign bilaterally. NEUROLOGICAL: Awake and alert. Cranial nerves II through XII intact. Motor and sensory grossly within normal limits. Five out of 5 muscle strength in all muscle groups. Normal speech. Psych cooperative IV line sites with no e/o infection. Laboratory Laboratory Tests Test 10/01/17 12:45 10/01/17 13:29 10/01/17 15:14 10/01/17 17:00 White Blood Count 21.8 Red Blood Count 2.13 Hemoglobin 6.6 Hematocrit 19.7 Mean Corpuscular Volume 92.5 Mean Corpuscular Hemoglobin 31.1 Mean Corpuscular Hemoglobin Concent 33.6 Red Cell Distribution Width 21.3 Platelet Count 57 Mean Platelet Volume 11.7 CBC Comment AUTO DIFF Differential Total Cells Counted 100 Neutrophils % (Manual) 3 Lymphocytes % 17 Neutrophils # (Manual) 0.7 Differential Comment FINAL DIFF MANUAL Blastocytes 80 Platelet Estimate LOW Platelet Morphology Comment ENLARGED Ovalocytes 1+ Prothrombin Time 12.4 Prothromb Time International Ratio 1.2 Activated Partial Thromboplast Time 25.4 Blood Urea Nitrogen 7 Creatinine 0.74 Random Glucose 84 Total Protein 5.3 Albumin 2.3 Calcium Level 7.6 Alkaline Phosphatase 130 Aspartate Amino Transf (AST/SGOT) 18 Alanine Aminotransferase (ALT/SGPT) 9 Total Bilirubin 0.8 Sodium Level 139 Potassium Level 3.3 Chloride Level 103 Carbon Dioxide Level 26.5 Anion Gap 10 Estimat Glomerular Filtration Rate 78 Lactic Acid Level 1.2 Phosphorus Level 2.3 Lipase 382 Blood Gas Puncture Site LT RADIAL Blood Gas Patient Temperature 98.6 Blood Gas HCO3 27 Blood Gas Base Excess 2.8 Blood Gas Oxygen Saturation 11 Arterial Blood pH 7.40 Arterial Blood Partial Pressure CO2 45 Arterial Blood Partial Pressure O2 13 Arterial Blood Oxygen Content 1.2 Arterial Blood Carboxyhemoglobin 0.9 Arterial Blood Methemoglobin 1.0 Blood Gas Hemoglobin 8.2 Oxygen Delivery Device Non-Rebreathing Mask Blood Gas Liter Flow 15 Urine Color YELLOW Urine Turbidity CLOUDY Urine pH 7.5 Urine Specific [place] 1.013 Urine Protein NEG Urine Glucose (UA) NEG Urine Ketones TRACE Urine Occult Blood TRACE Urine Nitrite NEG Urine Bilirubin NEG Urine Urobilinogen 2.0 Urine Leukocyte Esterase MOD Urine RBC 2 Urine WBC 6 Urine Squamous Epithelial Cells 11 Urine Transitional Epithelial Cells 1 Urine Bacteria MANY Urine Mucus FEW Microscopic Urinalysis Comment CULTURE INDICATED Nasal Screen MRSA (PCR) MRSA NOT DETECTED Test 10/01/17 17:38 10/01/17 23:35 10/02/17 04:35 Hemoglobin 10.5 9.9 10.2 Hematocrit 30.1 28.6 29.3 White Blood Count 10.9 10.2 Red Blood Count 3.15 3.25 Mean Corpuscular Volume 90.7 90.1 Mean Corpuscular Hemoglobin 31.4 31.3 Mean Corpuscular Hemoglobin Concent 34.6 34.7 Red Cell Distribution Width 18.9 18.8 Platelet Count 32 29 Mean Platelet Volume 10.3 10.1 CBC Comment AUTO DIFF AUTO DIFF Differential Total Cells Counted 100 100 Neutrophils % (Manual) 2 6 Lymphocytes % 23 31 Monocytes % 1 Neutrophils # (Manual) 0.2 0.6 Nucleated Red Blood Cells 3 Differential Comment FINAL DIFF MANUAL FINAL DIFF MANUAL Blastocytes 74 63 Platelet Estimate LOW LOW Platelet Morphology Comment NORMAL NORMAL Ovalocytes 1+ 1+ Blood Urea Nitrogen 6 6 Creatinine 0.63 0.66 Random Glucose 72 73 Total Protein 4.7 4.6 Calcium Level 6.8 6.6 Phosphorus Level 5.0 Magnesium Level 1.5 Sodium Level 142 142 Potassium Level 3.4 4.0 Chloride Level 106 107 Carbon Dioxide Level 28.0 27.3 Anion Gap 8 8 Estimat Glomerular Filtration Rate 94 89 Protein Corrected Calcium 8.1 7.9 Tear Drop Cells 1+ Albumin 2.1 Alkaline Phosphatase 110 Aspartate Amino Transf (AST/SGOT) 14 Alanine Aminotransferase (ALT/SGPT) LESS THAN 6 Total Bilirubin 0.8 Date/Time Source Procedure Growth Status 10/01/17 12:50 Blood Peripheral Aerobic Blood Culture Pending Received 10/01/17 12:50 Blood Peripheral Anaerobic Blood Culture Pending Received 10/01/17 15:14 Urine Clean Catch Urine Culture Pending Received Result Diagram: 10/02/17 0435 10/02/17 0435 Imaging Last Impressions Chest X-Ray 10/01/17 1357 Signed Impressions: Service Date/Time: Sunday, October 01, 2017 14:03 - CONCLUSION: No pneumothorax status post placement of left subclavian central line which has its tip in the superior vena cava. Discoid atelectasis within the left midlung field. Desmond Jaimes MD CT Angiography 10/01/17 1251 Signed Impressions: Service Date/Time: Sunday, October 01, 2017 14:19 - CONCLUSION: 1. No evidence of pulmonary embolism. 2. Focal infiltrate within the left upper lobe posteriorly consistent with possible pneumonia. 3. Scattered atelectatic changes bilaterally. 4. Stable aneurysmal dilatation of the ascending thoracic aorta measuring 4.7 cm in greatest dimension. 5. Stable cardiomegaly and coronary artery calcifications. 6. Minimal posterior pleural thickening bilaterally. Desmond Jaimes MD Abdomen/Pelvis CT 10/01/17 1247 Signed Impressions: Service Date/Time: Sunday, October 01, 2017 14:19 - CONCLUSION: Minimal bowel wall thickening descending colon it could be an early mild colitis. No other etiology for the abdominal pain is evident There is no evidence for significant congestive failure. Inferior vena cava is patent. Darrell Carter MD FACR Assessment and Plan Assessment and Plan Severe Sepsis present on admission. Cdiff Colitis was on oral vanco prior to admission. No need to retest. High grade leucocytosis. Anemia: no acute blood loss. GI on board. Hemonc on board. Left upper lobe infiltrate could be of infectious or non infectious etiology ( leukemic infiltrates). AML s.p Dacogen on 09/26/17. Immune compromised host. PICC in place for chemotherapy. Recs: Overnight patient did fairly well without any systemic antibiotics. Chest x-ray was reviewed with Dr. Dawson and Dr. Yarbrough the left lobe infiltrates could be of infectious or non infectious etiology (leukemic infiltrates). Observe off any antibiotics for pneumonia just treat the Cdiff Colitis. If any change or info suggestive of systemic infection other than Cdiff will reevaluate. Continue oral vanco Continue Flagyl IV for now. Follow cultures Follow clinically. Critical thinking decision making. Reviewed imaging with other MDs. d/w and . Kassidy Morfin MD Oct 02, 2017 08:15
--- NOTE | 2017-10-02 10:38 | MB ---
cc: NICA HARMON DATE OF CONSULTATION 10/02/2017 TIME OF CONSULTATION 8:45 a.m. MALIGNANT HEMATOLOGIC DIAGNOSIS Acute myeloid leukemia (AML). PROGNOSTICATION NPM-1 mutation positive, FLT-3 mutation negative, CEPBA mutation negative. TREATMENT HISTORY TO DATE The patient is status post four cycles of Dacogen. She was initiated on treatment in February of 2017. CHIEF COMPLAINT Ms. Read presents three days after her most recent discharge from the hospital with complaints of generalized weakness, nausea, inability to tolerate p.o. intake and diarrhea. She denies having had fevers or chills. HISTORY OF PRESENT ILLNESS Ms. 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 Her prognostic mutations have been outlined above. Her chromosomes indicated 46XX. She was initiated on systemic therapy with Dacogen because she was felt to be a poor candidate for aggressive cytotoxic systemic chemotherapy on account of her COPD and atrial fibrillation with RVR. The patient did have an initial response to therapy with decrease in circulating blast percentage. She continued with outpatient Dacogen therapy up until I believe June of 2017. After that she had a series of hospitalizations with various issues ranging from sepsis to C-diff colitis to nausea and vomiting to painful hemorrhoids which were bleeding and an anal fissure. She was hospitalized last week to [facility] with diarrhea, abdominal pain and was found to have C-diff colitis. She was treated with an inpatient cycle of Dacogen, treatment was completed seven days ago. She was discharged home on Sunday. The patient tells me she felt she was discharged prematurely as she was unable to hold down oral liquids or solids and had difficulty ambulating. She came back into the hospital last night, she was tachycardiac and hypotensive. She was assessed to have severe sepsis and required IV fluid resuscitation. She was transferred to the ICU where her condition has stabilized overnight with improved blood pressure, decreased heart rate and improved WBC count. She was resumed on oral vancomycin. CT of the chest, abdomen and pelvis revealed patchy infiltrates in the lungs. Additionally, CT abdomen and pelvis revealed some thickening of the colon wall consistent with colitis related to C-diff. PAST MEDICAL HISTORY 1. Acute myeloid leukemia. 2. A-fib. 3. COPD. 4. Tobaccoism. 5. Recent C-diff colitis. 6. Anxiety. 7. Chronic nausea. 8. Hypothyroidism. 9. Obesity. PAST SURGICAL HISTORY 1. Appendectomy. 2. Bone marrow biopsy and aspiration. 3. . 4. Varicose vein surgery. 5. Colonoscopy. ALLERGIES PENICILLIN VEE. FAMILY HISTORY Noncontributory. CURRENT INPATIENT MEDICATIONS 1. Vancomycin 125 mg p.o. 4 times daily. 2. Magnesium and potassium replacement per protocol. 3. Normal saline 84 cc/hour. 4. DuoNebs 1 amp every 4 hours as needed. 5. Famotidine 20 mg IV q.12 hours. 6. Low-dose insulin per sliding scale. 7. Magnesium oxide 800 mg p.o. as needed. 8. Morphine 2 mg IV q.3 hours as needed for pain. 9. Zofran 4 mg IV q. 6 hours scheduled. REVIEW OF SYSTEMS A 13-point review of systems was obtained. The following are the pertinent positives and negatives: Constitutional: Fatigue, weakness, loss of appetite, dizziness. Nausea. HEENT: Reports headaches, difficulty balancing. Denies soreness in the throat, denies nosebleeds. Respiratory: Reports difficulty breathing with minimal exertion, reports cough, denies hemoptysis. Cardiovascular: Reports palpitations, denies angina-like chest pain, PND, orthopnea. GI: Please see HPI. She reports persistent nausea, she reports vomiting, she reports having had on and off diarrhea, abdominal pain. : No complaints. BALLPOINT PEN CARTRIDGE TESTER: Denies any focal or sensorimotor deficits but she reports feeling generally weak. PHYSICAL EXAMINATION Vital Signs: Temperature 98.6 degrees Fahrenheit, heart rate ranging between 110 and 125 beats per minute, blood pressure is 114/72, O2 sats are 100% on 3 liters via nasal cannula. General Physical Appearance: Ms. Read is a chronically ill and pale-appearing elderly lady. She is laying in bed, she appears to be comfortable. She was asleep when I walked in but is easily arousable. She speaks to be in full sentences and is alert and oriented x3. HEENT: Head atraumatic, normocephalic. Conjunctivae are pale. Sclerae are anicteric. EOMI. PERRLA. Oral exam - no pharyngeal erythema. Neck Exam: No palpable cervical or supraclavicular lymphadenopathy. Respiratory Exam: Good inspiratory effort, scattered inspiratory crepitus along bilateral lower lung atkins. No wheezing or rhonchi. Cardiovascular: Irregular, tachycardiac, S1-S2. No obvious murmurs, rubs or gallops. Abdominal Examination: Protuberant belly. Soft. No obvious tenderness, no masses palpable. Lower Extremities: No pretibial edema or calf tenderness. BALLPOINT PEN CARTRIDGE TESTER: No focal sensorimotor deficits. Musculoskeletal: Generally decreased muscle mass and tone. LABORATORY FINDINGS Blood work dated 10/02/2017: WBC count 10.2, hemoglobin 10.2 gm/dl, hematocrit 29.3%, platelet count 29,000, absolute neutrophil count 0.6, blast percentage is 63%. Chemistries: Sodium 142, potassium 4, chloride 107, bicarb 27.3, BUN 6, creatinine 0.66, EGFR 89, random glucose is 73, calcium protein corrected is 7.9, total bilirubin 0.8, AST 14, ALT 6, alkaline phosphatase 110, albumin is 2.1. IMAGING STUDIES CT of the abdomen and pelvis dated 10/01/2017 performed at [facility] indicates minimal bowel thickening along the descending colon. This could be related to mild colitis. No other etiology for the abdominal pain is evident. There is no evidence of significant congestive failure. Inferior vena cava is patent. CT angiogram dated 10/01/2017 No evidence of pulmonary embolus, focal infiltrate within the left upper lobe posteriorly consistent with possible pneumonia. Scattered atelectatic changes bilaterally. Stable aneurysmal dilatation of the ascending thoracic aorta measuring 4.7 cm in greatest dimension. Stable cardiomegaly and coronary artery calcification. Minimal posterior pleural thickening bilaterally. ASSESSMENT Ms. 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 Her disease is negative for the FLP-3 mutation, positive for NPM-1 mutation and negative for the CEPBA mutation. She has been on treatment with Dacogen and has received four cycles thus far with the most recent cycle completed 7 days ago. She presented to hospital three days after her most recent discharge. She was admitted to the hospital at that time with C-diff colitis. The patient reports symptoms of abdominal pain, nausea, inability tolerate oral intake and generalized weakness and fatigue. She was unable to care for herself at home even with the help of her daughter and was brought into [place] ER last night. The patient was noted to be tachycardiac and hypotensive. She was assessed to have severe sepsis likely secondary to C-diff colitis and was admitted to the hospital for IV fluid hydration and antibiotic therapy. She did also require 2 units of packed red blood cell transfusion for a hemoglobin of 6.2 gm/dl at the time of presentation. RECOMMENDATIONS 1. Acute myeloid leukemia: Status post four cycles of Dacogen. She is a poor candidate for aggressive disease-directed cytotoxic chemotherapy given her significant comorbid conditions which include COPD and A-fib with RVR as well as a poor ECOG performance status. She is also of advanced age. She has had difficulty enough tolerating Dacogen and I am certain that changing treatment to cytotoxic therapy will have even greater adverse effects without much benefit. For the time being I would recommend continuing supportive care with transfusions as needed and management for underlying infectious etiologies. 2. Persistent nausea and vomiting: The etiology for nausea and vomiting has been difficult to elucidate, she has some gastritis. She does have C-diff colitis, she has had recent systemic chemotherapy, all of which may be combining to result in the nausea. I am not certain if her anxiety is driving the nausea because she seems to have improved symptoms of nausea when she receives anxiolytic therapy. I would recommend encouraging p.o. intake because, unless the patient is able to sustain herself orally, she will continue to decline from a functional standpoint and this will make additional cycles of therapy more and more difficult. 3. C-diff colitis: Continue oral vancomycin intake. I did talk to the patient briefly today about palliation and Hospice level of care. She told me she is not prepared to accept Hospice at this time. She has asked me specifically not to talk to her children because she thinks they will react in a very negative way. I did explain to the patient again that her disease is something that we will try to treat but ultimately therapeutic interventions are palliative. She understands. She is willing to internalize her diagnosis and prognosis without involving her children. She tells me she would like to give herself the best possible chance to recover so she could receive additional cycles of Dacogen. I have emphasized the importance of her being able to improve her nutritional intake and to be clear of infectious etiologies before we challenge her with additional rounds of systemic therapy. She understands. She declines a palliative care consultation and evaluation at this time. MD DAYA Fernandes/RHONDA /9:12 AM /9:52 AM MTDKaitlynn
[2017-10-02] MEDS: FAMOTIDINE 20 MG/2 ML VIAL IV PUSH SCH ×2 (10:43→20:33)
[2017-10-02] MEDS: VANCOMYCIN 500 MG VIAL (FOR ORAL USE ONLY) PO SCH ×4 (10:43→20:32)
[2017-10-02] MEDS: ONDANSETRON HCL 4 MG/2 ML VIAL IV PUSH SCH ×2 (11:59→17:59)
--- NOTE | 2017-10-02 14:47 | HHI.GIFU ---
Subjective Remarks Pt resting in bed, friend at bedside. She reports small BM this morning. Per RN stool is being sent for H. pylori antigen and Hemoccult. She reports some nausea this morning, no emesis. (Tila Bah) Objective Vitals I&O Vital Signs Date Time Temp Pulse Resp B/P (MAP) Pulse Ox O2 Delivery O2 Flow Rate FiO2 10/02/17 14:00 138 10/02/17 12:00 98.6 129 18 99/63 (75) 99 10/02/17 12:00 128 10/02/17 10:00 135 10/02/17 08:00 98.4 128 16 89/58 (68) 98 10/02/17 08:00 123 10/02/17 04:00 98.6 125 18 114/72 (86) 100 10/02/17 00:00 98.0 119 18 122/76 (91) 98 10/01/17 20:00 98.3 123 29 129/81 (97) 99 10/01/17 19:05 97 Nasal Cannula 3.00 10/01/17 17:00 97.7 117 16 95/54 (68) 100 10/01/17 17:00 118 10/01/17 16:55 124 16 120/68 (85) 98 10/01/17 16:28 97.8 125 18 124/81 98 10/01/17 15:34 100 Nasal Cannula 4.00 10/01/17 15:00 97.8 120 18 125/78 98 10/01/17 14:46 97.6 119 20 148/75 100 I/O 10/01/17 10/01/17 10/01/17 10/02/17 10/02/17 10/02/17 07:00 15:00 23:00 07:00 15:00 23:00 Intake Total 820 ml 900 ml 2061 ml Output Total 0 ml Balance 820 ml 900 ml 2061 ml Intake Oral 240 ml IV Total 100 ml 1821 ml Packed Cells 400 ml 400 ml Blood Product IV Normal Saline Flush 420 ml 400 ml Output Urine Total 0 ml # Voids 3 # Bowel Movements 0 Laboratory Laboratory Tests Test 10/01/17 15:14 10/01/17 17:00 10/01/17 17:38 10/01/17 23:35 Urine Color YELLOW Urine Turbidity CLOUDY Urine pH 7.5 Urine Specific [place] 1.013 Urine Protein NEG Urine Glucose (UA) NEG Urine Ketones TRACE Urine Occult Blood TRACE Urine Nitrite NEG Urine Bilirubin NEG Urine Urobilinogen 2.0 Urine Leukocyte Esterase MOD Urine RBC 2 Urine WBC 6 Urine Squamous Epithelial Cells 11 Urine Transitional Epithelial Cells 1 Urine Bacteria MANY Urine Mucus FEW Microscopic Urinalysis Comment CULTURE INDICATED Nasal Screen MRSA (PCR) MRSA NOT DETECTED Hemoglobin 10.5 9.9 Hematocrit 30.1 28.6 White Blood Count 10.9 Red Blood Count 3.15 Mean Corpuscular Volume 90.7 Mean Corpuscular Hemoglobin 31.4 Mean Corpuscular Hemoglobin Concent 34.6 Red Cell Distribution Width 18.9 Platelet Count 32 Mean Platelet Volume 10.3 CBC Comment AUTO DIFF Differential Total Cells Counted 100 Neutrophils % (Manual) 2 Lymphocytes % 23 Monocytes % 1 Neutrophils # (Manual) 0.2 Nucleated Red Blood Cells 3 Differential Comment FINAL DIFF MANUAL Blastocytes 74 Platelet Estimate LOW Platelet Morphology Comment NORMAL Ovalocytes 1+ Blood Urea Nitrogen 6 Creatinine 0.63 Random Glucose 72 Total Protein 4.7 Calcium Level 6.8 Phosphorus Level 5.0 Magnesium Level 1.5 Sodium Level 142 Potassium Level 3.4 Chloride Level 106 Carbon Dioxide Level 28.0 Anion Gap 8 Estimat Glomerular Filtration Rate 94 Protein Corrected Calcium 8.1 Test 10/02/17 04:35 10/02/17 12:00 White Blood Count 10.2 Red Blood Count 3.25 Hemoglobin 10.2 Hematocrit 29.3 Mean Corpuscular Volume 90.1 Mean Corpuscular Hemoglobin 31.3 Mean Corpuscular Hemoglobin Concent 34.7 Red Cell Distribution Width 18.8 Platelet Count 29 Mean Platelet Volume 10.1 CBC Comment AUTO DIFF Differential Total Cells Counted 100 Neutrophils % (Manual) 6 Lymphocytes % 31 Neutrophils # (Manual) 0.6 Differential Comment FINAL DIFF MANUAL Blastocytes 63 Platelet Estimate LOW Platelet Morphology Comment NORMAL Tear Drop Cells 1+ Ovalocytes 1+ Blood Urea Nitrogen 6 Creatinine 0.66 Random Glucose 73 Total Protein 4.6 Albumin 2.1 Calcium Level 6.6 Alkaline Phosphatase 110 Aspartate Amino Transf (AST/SGOT) 14 Alanine Aminotransferase (ALT/SGPT) LESS THAN 6 Total Bilirubin 0.8 Sodium Level 142 Potassium Level 4.0 3.5 Chloride Level 107 Carbon Dioxide Level 27.3 Anion Gap 8 Estimat Glomerular Filtration Rate 89 Protein Corrected Calcium 7.9 Date/Time Source Procedure Growth Status 10/02/17 12:00 Blood Other Aerobic Blood Culture Pending Received 10/02/17 12:00 Blood Other Anaerobic Blood Culture Pending Received 10/01/17 15:14 Urine Clean Catch Urine Culture Pending Received Imaging Last Impressions Chest X-Ray 10/01/17 1357 Signed Impressions: Service Date/Time: Sunday, October 01, 2017 14:03 - CONCLUSION: No pneumothorax status post placement of left subclavian central line which has its tip in the superior vena cava. Discoid atelectasis within the left midlung field. Desmond Jaimes MD CT Angiography 10/01/17 1251 Signed Impressions: Service Date/Time: Sunday, October 01, 2017 14:19 - CONCLUSION: 1. No evidence of pulmonary embolism. 2. Focal infiltrate within the left upper lobe posteriorly consistent with possible pneumonia. 3. Scattered atelectatic changes bilaterally. 4. Stable aneurysmal dilatation of the ascending thoracic aorta measuring 4.7 cm in greatest dimension. 5. Stable cardiomegaly and coronary artery calcifications. 6. Minimal posterior pleural thickening bilaterally. Desmond Jaimes MD Abdomen/Pelvis CT 10/01/17 1245 Signed Impressions: Service Date/Time: Sunday, October 01, 2017 14:19 - CONCLUSION: Minimal bowel wall thickening descending colon it could be an early mild colitis. No other etiology for the abdominal pain is evident There is no evidence for significant congestive failure. Inferior vena cava is patent. Darrell Carter MD FACR Physical Exam HEENT: Normocephalic; atraumatic CHEST: Even/unlabored CARDIAC: Irregular ABDOMEN: Distended, soft, nontender, bowel sounds active SKIN: Normal; no rash; no jaundice. HEALTH EVALUATOR: No focal deficits; alert and oriented times three. (Tila Bah) Assessment and Plan Plan ASSESSMENT - anemia - hgb was 6.6 on admission, down from 7.8 on 09/28. no obvious source bleeding, had chemo 09/26/17 and per oncology note expected to have worsening pancytopenia in the coming weeks. Had EGD that found mild esophagitis, severe gastritis, no bx done d/t low PLT. last colonoscopy [address] Calderón found "inflammation." CT shows poss mild colitis. + c diff on PO vanc do not think she could tolerate bowel prep at this time. 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 blood transfusing. - epigastric pain - EGD as above. esophagitis, gastritis couldn't get bx. will check h pylori - n/v - persistent, 2/2 chemo? EGD as above. - thrombocytopenia - PLT 57 this admission - leukocytosis - ?leukemia. + c diff on PO vanc, denies diarrhea. afebrile. ID consulted. - AML (10/02) Pt with some nausea this morning, denies emesis. Reports small BM today, stool being sent for H. Pylori antigen and Hemoccult. No obvious GIB at this time. H/H currently 10.2/29.3 S/P 2 U PRBCs yesterday. She has been seen by oncology who addressed possible hospitce and pt reports she is not ready for this transition. She remains on oral Vanco and IV Flagyl. Remains on clear liquids, poor appetite. Per oncology, nutrition should be encourage for pt to gain strength. CT abdomen W pelvis W IV contrast (10/01) noted --> Minimal bowel wall thickening descending colon it could be an early mild colitis. No other etiology for abdominal pain is evident. PLAN - Stool studies for H. Pylori and Hemoccult pending - Continue oral Vanco and IV Flagyl - Clear liquid diet, advance as tolerated - Monitor H/H - Notify GI of any active bleeding - Further recommendations to follow based on results of above Pt has been seen and examined by myself and Dr. Hernandez and this note is written on her behalf (Tila Bah) Physician Comments seen, examined agree with above we will advance diet to soft (Quynh Hernandez MD) Tila Bah Oct 02, 2017 14:47 Quynh Hernandez MD Oct 02, 2017 17:28
[2017-10-02] MEDS: METOPROLOL TARTRATE 25 MG TAB PO SCH ×2 (15:36→20:34)
[2017-10-02] MEDS: POTASSIUM CHLOR 40 MEQ PREMIX 100 ML IV PRN (15:36)
[2017-10-02] MEDS: DEXT 5%-NACL 0.9% 1000 ML INJ 1,000 ML IV SCH (16:00)
[2017-10-03] VITALS (16 sets, daily range): BP systolic 96–126; BP diastolic 55–82; PULSE 115–129; RESP 14–29; TEMP 98.2–98.5; O2SAT 97–100
[2017-10-03] MEDS: RESP: ALBUTEROL 2.5 MG/IPRATROPIUM 0.5 MG NEB (SCH) INH ×5 (02:46→20:00)
[2017-10-03] MEDS: INSULIN NovoLIN REGULAR SUPPLEMENTAL SCALE SQ SCH ×4 (03:00→21:00)
[2017-10-03] MEDS: CHLORHEXIDINE GLUCONATE 2 % 1 PACK (2 CLOTHS) TOP SCH (03:03)
[2017-10-03 05:22] LABS: HEMOGLOBIN 9.7 GM/DL (11.6-15.3); MEAN CELL VOLUME 91.2 FL (80.0-100.0); MEAN CORPUSCULAR HEMOGLOBIN 31.6 PG (27.0-34.0); MEAN CORPUSCULAR HGB CONC 34.7 % (32.0-36.0); PLATELET COUNT 28 TH/MM3 (150-450); RED BLOOD COUNT 3.07 MIL/MM3 (4.00-5.30); RED CELL DISTRIBUTION WIDTH 19.7 % (11.6-17.2); WHITE BLOOD COUNT 7.8 TH/MM3 (4.0-11.0)
[2017-10-03] MEDS: metroNIDAZOLE 500 MG INJ 100 ML IV SCH (05:28)
[2017-10-03] MEDS: ONDANSETRON HCL 4 MG/2 ML VIAL IV PUSH SCH ×5 (05:28→23:25)
[2017-10-03 05:42] LABS: BICARBONATE 26.8 MEQ/L (21.0-32.0); CALCIUM 6.9 MG/DL (8.5-10.1); CREATININE 0.68 MG/DL (0.50-1.00); MAGNESIUM 1.5 MG/DL (1.5-2.5); PHOSPHORUS 2.4 MG/DL (2.5-4.9)
[2017-10-03 06:05] LABS: CALCIUM-PROTEIN CORRECTED 8.2 MG/DL (8.5-10.1); TOTAL PROTEIN 4.6 GM/DL (6.4-8.2)
--- NOTE | 2017-10-03 08:07 | PD.ONC.PN ---
Subjective Subjective Remarks Patient seen and examined, vital signs, labs, medications reviewed. Microbiology reviewed as well. Subjectively; the patient reports continued nausea, she tells me her oral intake has been limited to sips of apple juice. She denies fevers or chills. She tells me she feels generally weak and short of breath with minimal exertion. She spent the entire day in bed yesterday. Objective Data Date Time Temp Pulse Resp B/P (MAP) Pulse Ox O2 Delivery O2 Flow Rate FiO2 10/03/17 04:00 98.5 122 20 112/78 (89) 100 10/03/17 00:00 98.2 117 24 113/74 (87) 99 10/02/17 20:00 98.9 120 17 126/75 (92) 97 10/02/17 18:00 128 10/02/17 16:00 125 10/02/17 16:00 98.4 130 16 117/78 (91) 99 10/02/17 14:00 138 10/02/17 12:00 98.6 129 18 99/63 (75) 99 10/02/17 12:00 128 10/02/17 10:00 135 10/02/17 09:00 98 Nasal Cannula 3.00 10/03/17 10/03/17 10/03/17 07:00 15:00 23:00 Intake Total 896 ml Balance 896 ml Result Diagram: 10/03/17 0500 10/03/17 0500 Laboratory Results Laboratory Tests Test 10/02/17 12:00 10/02/17 14:00 10/03/17 05:00 Potassium Level 3.5 MEQ/L 3.8 MEQ/L Stool C. difficile Toxin (PCR) POSITIVE Stl C. difficile Toxin Epiderm 027 PRESUMPTIVE NEGATIVE White Blood Count 7.8 TH/MM3 Red Blood Count 3.07 MIL/MM3 Hemoglobin 9.7 GM/DL Hematocrit 28.0 % Mean Corpuscular Volume 91.2 FL Mean Corpuscular Hemoglobin 31.6 PG Mean Corpuscular Hemoglobin Concent 34.7 % Red Cell Distribution Width 19.7 % Platelet Count 28 TH/MM3 Mean Platelet Volume 11.0 FL CBC Comment AUTO DIFF Blood Urea Nitrogen 4 MG/DL Creatinine 0.68 MG/DL Random Glucose 83 MG/DL Total Protein 4.6 GM/DL Calcium Level 6.9 MG/DL Phosphorus Level 2.4 MG/DL Magnesium Level 1.5 MG/DL Sodium Level 141 MEQ/L Chloride Level 108 MEQ/L Carbon Dioxide Level 26.8 MEQ/L Anion Gap 6 MEQ/L Estimat Glomerular Filtration Rate 86 ML/MIN Protein Corrected Calcium 8.2 MG/DL Culture Results Microbiology Date/Time Source Procedure Growth Status 10/02/17 12:00 Blood Other Aerobic Blood Culture Pending Received 10/02/17 12:00 Blood Other Anaerobic Blood Culture Pending Received 10/01/17 12:50 Blood Peripheral Aerobic Blood Culture - Preliminary NO GROWTH IN 1 DAY Resulted 10/01/17 12:50 Blood Peripheral Anaerobic Blood Culture - Preliminary NO GROWTH IN 1 DAY Resulted 10/01/17 12:45 Blood Peripheral Aerobic Blood Culture - Preliminary NO GROWTH IN 1 DAY Resulted 10/01/17 12:45 Blood Peripheral Anaerobic Blood Culture - Preliminary NO GROWTH IN 1 DAY Resulted 10/02/17 14:00 Stool Stool Stool Occult Blood (ALVARADO) - Final HEMOCCULT NEGATIVE Complete 10/01/17 15:14 Urine Clean Catch Urine Culture - Preliminary IMMATURE GROWTH - REINCUBATE Resulted 10/01/17 15:14 Urine Catheterized Urine Legionella Antigen - Final PRESUMPTIVE NEGATIVE FOR LEGIONELLA P... Complete 10/01/17 15:14 Urine Catheterized Urine Streptococcus pneumoniae Antigen (M - Final PRESUMPTIVE NEGATIVE FOR STREPTOCOCCU... Complete Administered Medications Medications (Trade) Dose Ordered Sig/Tylor Route PRN Reason Start Time Stop Time Status Last Admin Dose Admin Famotidine (Pepcid Inj) 20 mg Q12HR IV PUSH 10/01/17 21:00 10/02/17 20:33 Albuterol/ Ipratropium (Duoneb Neb) 1 ampule Q4HR NEB INH 10/01/17 16:00 10/01/17 15:34 Chlorhexidine Gluconate (Chlorhexidine 2% Cloth) 3 pack Taper DAILY@04 TOP 10/02/17 04:00 09/28/18 03:59 10/03/17 03:03 Metronidazole 100 ml @ 100 mls/hr Q8H IV 10/01/17 14:00 10/03/17 05:28 Vancomycin HCl (VANCOMYCIN for oral use only) 125 mg QID PO 10/01/17 15:00 10/02/17 20:32 Potassium Chloride 100 ml @ 25 mls/hr UNSCH PRN IV For Potassium 3.3 - 3.5 mEq/L 10/01/17 15:00 10/02/17 15:36 Potassium Chloride 100 ml @ 50 mls/hr Q2H PRN IV For Potassium 3.3 - 3.5 mEq/L 10/01/17 15:00 10/02/17 04:00 Potassium Phosphate 30 mmol/ Sodium Chloride 260 ml @ 42 mls/hr UNSCH PRN IV SEE LABEL COMMENTS 10/01/17 15:00 10/01/17 18:17 Dextrose (D50w (Vial) Inj) 50 ml UNSCH PRN IV PUSH HYPOGLYCEMIA-SEE COMMENTS 10/01/17 15:00 10/01/17 16:27 Morphine Sulfate (Morphine Inj) 2 mg Q3H PRN IV PUSH pain 6-10 10/01/17 21:30 10/02/17 20:34 Ondansetron HCl (Zofran Inj) 4 mg Q6HR IV PUSH 10/02/17 12:00 10/03/17 05:28 Metoprolol Tartrate (Lopressor) 25 mg Q12HR PO 10/02/17 14:45 10/02/17 20:34 Dextrose/Sodium Chloride 1,000 ml @ 50 mls/hr Q20H IV 10/02/17 16:00 10/02/17 16:00 Objective Remarks General Physical Appearance: Ms. Read is a chronically ill and pale-appearing elderly lady. She is laying in bed, she appears to be comfortable. She was asleep when I walked in but is easily arousable. She speaks to be in full sentences and is alert and oriented x3. HEENT: Head atraumatic, normocephalic. Conjunctivae are pale. Sclerae are anicteric. EOMI. PERRLA. Oral exam - no pharyngeal erythema. Neck Exam: No palpable cervical or supraclavicular lymphadenopathy. Respiratory Exam: Good inspiratory effort, scattered inspiratory crepitus along bilateral lower lung atkins. No wheezing or rhonchi. Cardiovascular: Irregular, tachycardiac, S1-S2. No obvious murmurs, rubs or gallops. Abdominal Examination: Protuberant belly. Soft. No obvious tenderness, no masses palpable. Lower Extremities: No pretibial edema or calf tenderness. 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 Musculoskeletal: Generally decreased muscle mass and tone. 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 TREATMENT HISTORY TO DATE The patient is status post four cycles of Dacogen. She was initiated on treatment in February of 2017. Ms. 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 Her disease is negative for the FLP-3 mutation, positive for NPM-1 mutation and negative for the CEPBA mutation. She has been on treatment with Dacogen and has received four cycles thus far with the most recent cycle completed 7 days ago. She presented to hospital three days after her most recent discharge. She was admitted to the hospital at that time with C-diff colitis. The patient reports symptoms of abdominal pain, nausea, inability tolerate oral intake and generalized weakness and fatigue. She was unable to care for herself at home even with the help of her daughter and was brought into [place] ER last night. The patient was noted to be tachycardiac and hypotensive. She was assessed to have severe sepsis likely secondary to C-diff colitis and was admitted to the hospital for IV fluid hydration and antibiotic therapy. She did also require 2 units of packed red blood cell transfusion for a hemoglobin of 6.2 gm/dl at the time of presentation. Plan 1. Acute myeloid leukemia arising from a background of myelodysplastic syndrome : Status post cycle #4 Dacogen last week. She remained cytopenic but her platelet counts are in fact improved above baseline, her WBC count is also improved following Dacogen administration. 2. Nausea: It seems there is an association between anxiety and her nausea. The patient tells me that her nausea seems to become more noticeable whenever I talked to her about her leukemia and additional treatment as well as prognosis. She tells me she is willing to try a liquid diet today, she feels that going to a heart healthy regular diet would be too much for her to attempt at this point. Continue [id number] Zofran. 3. C. difficile colitis related sepsis: Continue IV metronidazole and by mouth vancomycin. 4. Physical debility: Request physical therapy evaluation. 5. A. fib with RVR: Rate control, not on anticoagulation due to thrombocytopenia. Roberto Yarbrough MD Oct 03, 2017 08:07
[2017-10-03 08:12] LABS: BLASTS 56 % (0-0); LYMPHOCYTES 25 % (9-44); METAMYELOCYTES 1 % (0-1); MONOCYTES 14 % (0-8); MYELOCYTES 1 % (0-0); NEUTROPHIL # MANUAL DIFF 0.4 TH/MM3 (1.8-7.7); POLYS (SEG NEUTROPHILS) 3 % (16-70)
[2017-10-03 08:15] LABS: TEARDROP RBCS 1+ (NORMAL)
[2017-10-03] MEDS: VANCOMYCIN 500 MG VIAL (FOR ORAL USE ONLY) PO SCH ×4 (08:19→21:10)
[2017-10-03] MEDS: FAMOTIDINE 20 MG/2 ML VIAL IV PUSH SCH (08:19)
[2017-10-03] MEDS: METOPROLOL TARTRATE 25 MG TAB PO SCH ×2 (08:24→21:10)
[2017-10-03] MEDS: DEXT 5%-NACL 0.9% 1000 ML INJ 1,000 ML IV SCH (08:37)
--- NOTE | 2017-10-03 09:37 | HHI.PR ---
Subjective Remarks Follow-up C. difficile, anemia. Patient states that she feels cold today. She has had nausea this morning. No vomiting. Denies diarrhea. Objective Vitals Vital Signs Date Time Temp Pulse Resp B/P (MAP) Pulse Ox O2 Delivery O2 Flow Rate FiO2 10/03/17 04:00 98.5 122 20 112/78 (89) 100 10/03/17 00:00 98.2 117 24 113/74 (87) 99 10/02/17 20:00 98.9 120 17 126/75 (92) 97 10/02/17 18:00 128 10/02/17 16:00 125 10/02/17 16:00 98.4 130 16 117/78 (91) 99 10/02/17 14:00 138 10/02/17 12:00 98.6 129 18 99/63 (75) 99 10/02/17 12:00 128 10/02/17 10:00 135 I/O 10/02/17 10/02/17 10/02/17 10/03/17 10/03/17 10/03/17 07:00 15:00 23:00 07:00 15:00 23:00 Intake Total 2061 ml 1260 ml 896 ml Balance 2061 ml 1260 ml 896 ml Intake Oral 240 ml 960 ml 240 ml IV Total 1821 ml 300 ml 656 ml # Voids 3 4 3 # Bowel Movements 0 3 0 Result Diagram: 10/03/17 0500 10/03/17 0500 Imaging Last Impressions Chest X-Ray 10/01/17 1357 Signed Impressions: Service Date/Time: Sunday, October 01, 2017 14:03 - CONCLUSION: No pneumothorax status post placement of left subclavian central line which has its tip in the superior vena cava. Discoid atelectasis within the left midlung field. Desmond Jaimes MD CT Angiography 10/01/17 1251 Signed Impressions: Service Date/Time: Sunday, October 01, 2017 14:19 - CONCLUSION: 1. No evidence of pulmonary embolism. 2. Focal infiltrate within the left upper lobe posteriorly consistent with possible pneumonia. 3. Scattered atelectatic changes bilaterally. 4. Stable aneurysmal dilatation of the ascending thoracic aorta measuring 4.7 cm in greatest dimension. 5. Stable cardiomegaly and coronary artery calcifications. 6. Minimal posterior pleural thickening bilaterally. Desmond Jaimes MD Abdomen/Pelvis CT 10/01/17 1245 Signed Impressions: Service Date/Time: Sunday, October 01, 2017 14:19 - CONCLUSION: Minimal bowel wall thickening descending colon it could be an early mild colitis. No other etiology for the abdominal pain is evident There is no evidence for significant congestive failure. Inferior vena cava is patent. Darrell Carter MD FACR Objective Remarks General: No acute distress. Heart: Regular rate and rhythm. No murmur. Lungs: Clear to auscultation bilaterally. No wheezes, rales, or rhonchi. Breathing is nonlabored. Abdomen: Soft, nontender, nondistended. Extremities: No lower extremity edema. Psych: Alert and oriented. Procedures None Urinary Catheter: No Vascular Central Line Catheter: Yes Assessment to: Continue Date of Insertion: Sep 21, 2017 Line: PICC A/P Assessment and Plan 1. Sepsis: Secondary to C. difficile colitis. Appreciate infectious disease recommendations. Continue IV Flagyl, oral vancomycin. Leukocytosis is improving. 2. Anemia, thrombocytopenia, AML: Appreciate hematology/oncology recommendations. 3. Respiratory insufficiency: Continue supplemental oxygen, bronchodilators. 4. C. difficile colitis: Diarrhea has improved. Continue IV Flagyl, oral vancomycin. Appreciate GI, infectious disease recommendations. 5. Nausea/vomiting: Continue antiemetics. 6. GI prophylaxis: Pepcid. 7. DVT prophylaxis: SCDs. Avoid chemical prophylaxis secondary to anemia. Jordin Elmoer MD Oct 03, 2017 09:37
--- NOTE | 2017-10-03 11:06 | HHI.IDPN ---
Subjective Subjective Remarks Ms. Richard is a very pleasant 67-year-old female of [place] origin. She is known to [facility] . 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 Per review of notes, based on bone marrow biopsy findings, she was found to have a background of myelodysplasia. She was a poor candidate for intense systemic chemotherapy due to her advanced COPD and at the time A. Fib with RVR. She was therefore treated with Dacogen and responded quite well to this treatment with significant reduction in circulating leukemic blasts. Following that, she received two additional outpatient doses of Dacogen for a total of three. Over the past 2-1/2 months, she has had a series of hospitalizations ( two at [facility] and one at [facility]) for symptoms ranging from anal fissures to nausea and vomiting. She was admitted at [place] in week of Aug 2017 with complaints of nausea, vomiting, abdominal pain, constipation and inability to hold down solids and liquids. She underwent EGD which showed mild esophagitis, Severe gastritis mostly in the body of the stomach and severe duodenitis. She was noted to have an elevated WBC count of 20.5 with ANC of 0.8 and circulating blasts. Patient was thought to have resurgence of her leukemia. Patient was seen by GI and underwent endoscopies. She also had Cdiff tested for period of diarrhea and is positive for Cdiff (BNAP negative). Patient was started on Oral flagyl but since patient has persistent N/V this was switched to IV Flagyl and ID consulted for evaluation and Mment of Cdiff in Immune compromised patient given oral route options cannot be tolerated. Vanco oral was tried and tolerated. Flagyl IV stopped and patient continued to improve. Carafate was added for her severe symptomatic gastritis and she appeared to be doing well and subsequently was discharged home by hospitalist. Of note she did receive systemic chemotherapy Dacogen during that admission. Patient does not remember being told by me that she had cdiff and what the oral vanco was for. With this back ground patient presented to [facility] ED with nausea , abdominal pain and similar presentation to her most recent admission. On arrival she was tachycardiac and she became hypotensive in the ED with systolic blood pressure in the 90s. In addition she was hypoxic with saturation in the 60s. The patient was given one liter bolus of normal saline with improvements of her hemodynamics. Her laboratory data significant for anemia with hemoglobin 6.6, leukocytosis with WBC of 21.8. Her lactic acid level measured at 1.2. Overnight she received two units of PRBCs that were ordered by the ED. CT abdomen and pelvis in the ED showed minimal bowel wall thickening and descending colon which could be an early mild colitis. The patient also underwent CT angiogram of the chest which showed no evidence of PE however it showed focal infiltrate within the left upper lobe and scattered atelectatic changes bilaterally. Stable aneurysmal dilatation of the ascending thoracic aorta measuring 4.7 cm. Patient reports some abdominal cramps with feeling of nausea. The patient denies any chest pain, orthopnea, PND. She denies any diarrhea at the present time. She had a normal bowel movement semi formed since admission. At the time of my evaluation patient is in the intensive medical care unit. Dr. Dawson discussed the case with him briefly yesterday to her known history of C. difficile and presence of colitis CT abdomen pelvis decided to withhold any further IV antibiotics due to concern for flaring of the C. difficile. Overnight patient did fairly well without any systemic antibiotics. Chest x- ray was reviewed with Dr. Dawson and Dr. Yarbrough the left lobe infiltrates could be of infectious or non infectious etiology (leukemic infiltrates). Overnight events reviewed No fevers No rash No diarrhea Antibiotics Vanco oral Flagyl IV Lines Line sites with no evidence of infection. Past Medical History Reviewed. Allergies: Coded Allergies: penicillin G (Verified Allergy, Severe, 09/19/17) aspirin (Verified Allergy, Unknown, "MAKES MY STOMACH HURT A BIT", 09/19/17 ) Objective . Vital Signs Date Time Temp Pulse Resp B/P (MAP) Pulse Ox O2 Delivery O2 Flow Rate FiO2 10/03/17 04:00 98.5 122 20 112/78 (89) 100 10/03/17 00:00 98.2 117 24 113/74 (87) 99 10/02/17 20:00 98.9 120 17 126/75 (92) 97 10/02/17 18:00 128 10/02/17 16:00 125 10/02/17 16:00 98.4 130 16 117/78 (91) 99 10/02/17 14:00 138 10/02/17 12:00 98.6 129 18 99/63 (75) 99 10/02/17 12:00 128 . Laboratory Tests Test 10/01/17 12:45 10/01/17 17:38 10/01/17 23:35 10/02/17 04:35 White Blood Count 21.8 TH/MM3 10.9 TH/MM3 10.2 TH/MM3 Red Blood Count 2.13 MIL/MM3 3.15 MIL/MM3 3.25 MIL/MM3 Hemoglobin 6.6 GM/DL 10.5 GM/DL 9.9 GM/DL 10.2 GM/DL Hematocrit 19.7 % 30.1 % 28.6 % 29.3 % Mean Corpuscular Volume 92.5 FL 90.7 FL 90.1 FL Mean Corpuscular Hemoglobin 31.1 PG 31.4 PG 31.3 PG Mean Corpuscular Hemoglobin Concent 33.6 % 34.6 % 34.7 % Red Cell Distribution Width 21.3 % 18.9 % 18.8 % Platelet Count 57 TH/MM3 32 TH/MM3 29 TH/MM3 Mean Platelet Volume 11.7 FL 10.3 FL 10.1 FL CBC Comment AUTO DIFF AUTO DIFF AUTO DIFF Differential Total Cells Counted 100 100 100 Neutrophils % (Manual) 3 % 2 % 6 % Lymphocytes % 17 % 23 % 31 % Neutrophils # (Manual) 0.7 TH/MM3 0.2 TH/MM3 0.6 TH/MM3 Differential Comment FINAL DIFF MANUAL FINAL DIFF MANUAL FINAL DIFF MANUAL Blastocytes 80 % 74 % 63 % Platelet Estimate LOW LOW LOW Platelet Morphology Comment ENLARGED NORMAL NORMAL Ovalocytes 1+ 1+ 1+ Monocytes % 1 % Nucleated Red Blood Cells 3 /100 WBC Tear Drop Cells 1+ Test 10/03/17 05:00 White Blood Count 7.8 TH/MM3 Red Blood Count 3.07 MIL/MM3 Hemoglobin 9.7 GM/DL Hematocrit 28.0 % Mean Corpuscular Volume 91.2 FL Mean Corpuscular Hemoglobin 31.6 PG Mean Corpuscular Hemoglobin Concent 34.7 % Red Cell Distribution Width 19.7 % Platelet Count 28 TH/MM3 Mean Platelet Volume 11.0 FL CBC Comment AUTO DIFF Differential Total Cells Counted 100 Neutrophils % (Manual) 3 % Lymphocytes % 25 % Monocytes % 14 % Neutrophils # (Manual) 0.4 TH/MM3 Metamyelocytes 1 % Myelocytes 1 % Differential Comment FINAL DIFF MANUAL Blastocytes 56 % Platelet Estimate LOW Platelet Morphology Comment ENLARGED Basophilic Stippling FAINT Tear Drop Cells 1+ Laboratory Tests Test 10/01/17 12:45 10/01/17 23:35 10/02/17 04:35 10/02/17 12:00 Blood Urea Nitrogen 7 MG/DL 6 MG/DL 6 MG/DL Creatinine 0.74 MG/DL 0.63 MG/DL 0.66 MG/DL Random Glucose 84 MG/DL 72 MG/DL 73 MG/DL Total Protein 5.3 GM/DL 4.7 GM/DL 4.6 GM/DL Albumin 2.3 GM/DL 2.1 GM/DL Calcium Level 7.6 MG/DL 6.8 MG/DL 6.6 MG/DL Alkaline Phosphatase 130 U/L 110 U/L Aspartate Amino Transf (AST/SGOT) 18 U/L 14 U/L Alanine Aminotransferase (ALT/SGPT) 9 U/L LESS THAN 6 U/L Total Bilirubin 0.8 MG/DL 0.8 MG/DL Sodium Level 139 MEQ/L 142 MEQ/L 142 MEQ/L Potassium Level 3.3 MEQ/L 3.4 MEQ/L 4.0 MEQ/L 3.5 MEQ/L Chloride Level 103 MEQ/L 106 MEQ/L 107 MEQ/L Carbon Dioxide Level 26.5 MEQ/L 28.0 MEQ/L 27.3 MEQ/L Anion Gap 10 MEQ/L 8 MEQ/L 8 MEQ/L Estimat Glomerular Filtration Rate 78 ML/MIN 94 ML/MIN 89 ML/MIN Lactic Acid Level 1.2 mmol/L Phosphorus Level 2.3 MG/DL 5.0 MG/DL Lipase 382 U/L Magnesium Level 1.5 MG/DL Protein Corrected Calcium 8.1 MG/DL 7.9 MG/DL Test 10/03/17 05:00 Blood Urea Nitrogen 4 MG/DL Creatinine 0.68 MG/DL Random Glucose 83 MG/DL Total Protein 4.6 GM/DL Calcium Level 6.9 MG/DL Phosphorus Level 2.4 MG/DL Magnesium Level 1.5 MG/DL Sodium Level 141 MEQ/L Potassium Level 3.8 MEQ/L Chloride Level 108 MEQ/L Carbon Dioxide Level 26.8 MEQ/L Anion Gap 6 MEQ/L Estimat Glomerular Filtration Rate 86 ML/MIN Protein Corrected Calcium 8.2 MG/DL Microbiology Date/Time Source Procedure Growth Status 10/02/17 12:00 Blood Other Aerobic Blood Culture Pending Received 10/02/17 12:00 Blood Other Anaerobic Blood Culture Pending Received 10/01/17 12:50 Blood Peripheral Aerobic Blood Culture - Preliminary NO GROWTH IN 2 DAYS Resulted 10/01/17 12:50 Blood Peripheral Anaerobic Blood Culture - Preliminary NO GROWTH IN 2 DAYS Resulted 10/01/17 12:45 Blood Peripheral Aerobic Blood Culture - Preliminary NO GROWTH IN 2 DAYS Resulted 10/01/17 12:45 Blood Peripheral Anaerobic Blood Culture - Preliminary NO GROWTH IN 2 DAYS Resulted 10/02/17 14:00 Stool Stool Stool Occult Blood (ALVARADO) - Final HEMOCCULT NEGATIVE Complete 10/01/17 15:14 Urine Clean Catch Urine Culture - Final 50-100,000 CFU/ML MIXED GRAM POSITIVE... Complete 10/01/17 15:14 Urine Catheterized Urine Legionella Antigen - Final PRESUMPTIVE NEGATIVE FOR LEGIONELLA P... Complete 10/01/17 15:14 Urine Catheterized Urine Streptococcus pneumoniae Antigen (M - Final PRESUMPTIVE NEGATIVE FOR STREPTOCOCCU... Complete Imaging Last Impressions Chest X-Ray 10/01/17 1357 Signed Impressions: Service Date/Time: Sunday, October 01, 2017 14:03 - CONCLUSION: No pneumothorax status post placement of left subclavian central line which has its tip in the superior vena cava. Discoid atelectasis within the left midlung field. Desmond Jaimes MD CT Angiography 10/01/17 1251 Signed Impressions: Service Date/Time: Sunday, October 01, 2017 14:19 - CONCLUSION: 1. No evidence of pulmonary embolism. 2. Focal infiltrate within the left upper lobe posteriorly consistent with possible pneumonia. 3. Scattered atelectatic changes bilaterally. 4. Stable aneurysmal dilatation of the ascending thoracic aorta measuring 4.7 cm in greatest dimension. 5. Stable cardiomegaly and coronary artery calcifications. 6. Minimal posterior pleural thickening bilaterally. Desmond Jaimes MD Abdomen/Pelvis CT 10/01/17 1245 Signed Impressions: Service Date/Time: Sunday, October 01, 2017 14:19 - CONCLUSION: Minimal bowel wall thickening descending colon it could be an early mild colitis. No other etiology for the abdominal pain is evident There is no evidence for significant congestive failure. Inferior vena cava is patent. Darrell Carter MD FACR Physical Exam GENERAL: This is a well-nourished, well-developed patient, in no apparent distress. SKIN: No rashes, ecchymoses or lesions. Cool and dry. HEAD: Atraumatic. Normocephalic. No temporal or scalp tenderness. EYES: Pupils equal round and reactive. Extraocular motions intact. No scleral icterus. No injection or drainage. ENT: Nose without bleeding, purulent drainage or septal hematoma. Throat without erythema, tonsillar hypertrophy or exudate. Uvula midline. Airway patent. NECK: Trachea midline. Supple, nontender, no meningeal signs. CARDIOVASCULAR: Regular rate and rhythm without murmurs, gallops, or rubs. RESPIRATORY: Clear to auscultation. Breath sounds equal bilaterally. No wheezes , rales, or rhonchi. GASTROINTESTINAL: Abdomen soft, diffuse tenderness. MUSCULOSKELETAL: Extremities without clubbing, cyanosis, or edema. No joint tenderness, effusion, or edema noted. No calf tenderness. Negative Homans sign bilaterally. NEUROLOGICAL: Awake and alert. Cranial nerves II through XII intact. Motor and sensory grossly within normal limits. Five out of 5 muscle strength in all muscle groups. Normal speech. Psych cooperative IV line sites with no e/o infection. Assessment & Plan Remarks Severe Sepsis present on admission. Cdiff Colitis was on oral vanco prior to admission. No need to retest. High grade leucocytosis. Anemia: no acute blood loss. GI on board. Hemonc on board. Left upper lobe infiltrate could be of infectious or non infectious etiology ( leukemic infiltrates). AML s.p Dacogen on 09/26/17. Immune compromised host. PICC in place for chemotherapy. Recs: Overnight patient did fairly well without any systemic antibiotics. Observe off any antibiotics for pneumonia just treat the Cdiff Colitis. If any change or info suggestive of systemic infection other than Cdiff will reevaluate. Continue oral vanco Discontinue Flagyl IV for now(can contribute to nausea vomiting) DC central line. Ok to keep PICC line if needed by Oncology for Chemotherapy. Follow cultures Follow clinically. Discussed with RN. Discussed with Dr. Hernandez consider adding Carafate. Kassidy Morfin MD Oct 03, 2017 11:06
[2017-10-03] MEDS ORDERED: PROMETHAZINE INJ 25 MG/ML VIAL IM ONE (11:15)
[2017-10-03] MEDS: SODIUM PHOSPHATE INJ 30 MMOL in SODIUM CHLOR 0.9% 250 ML INJ 240 ML IV PRN ×2 (11:31→13:13)
--- NOTE | 2017-10-03 13:43 | RADRPT ---
EXAM DATE/TIME: 10/01/2017 14:19 [place] COMPARISON: No previous studies available for comparison. INDICATIONS : Abdominal pain, nausea. IV CONTRAST: 99 cc Omnipaque 350 (iohexol) IV ORAL CONTRAST: No oral contrast ingested. RADIATION DOSE: CTDIvol (mGy) ; Reconstructed from previous dataset, no dose MEDICAL HISTORY : Cardiovascular disease. Hypertension. Chronic obstructive pulmonary disease. SURGICAL HISTORY : Appendectomy. ENCOUNTER: Subsequent ACUITY: 3 days PAIN SCALE: 5/10 LOCATION: abdomen TECHNIQUE: Volumetric scanning was performed using a multi-row detector CT scanner. The data was post processed with a variety of visualization algorithms including full volume maximum intensity projection, multi -planar sliding thin slab reformation, curved planar reformation, and surface rendering techniques. Using automated exposure control and adjustment of the mA and/or kV according to patient size, radiat ion dose was kept as low as reasonably achievable to obtain optimal diagnostic quality images. DICOM format image data is available electronically for review and comparison. FINDINGS: The abdominal aorta and iliacs are notable for patchy intimal calcification and areas of moderate ath eromatous irregularity. There is a large soft plaque in the suprarenal aorta producing minimal lumina l compromise. The immediate infrarenal aorta is notable for a very large eccentric soft plaque compro mising 50% of the aortic lumen. There is no significant iliac stenosis identified. The hypogastrics a re patent bilaterally. Looking at the aortic visceral vessels, there is mild ostial celiac stenosis. There is focal weblike stenosis involving the proximal SMA which appears to produce about 50% luminal narrowing just beyond the vessel origin. The renal arteries appear satisfactory. The RUBY appears to be stenotic at its orig in but patent thereafter. There appears to be mild concentric wall thickening involving the proximal colon up to about the mid transverse colon region area the bowel structures are otherwise focally unremarkable. Occasional dist al colonic diverticula noted. 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 Moderate ostial RUBY stenosis. Findings of mild proximal colitis. Raoul Denton MD on October 03, 2017 at 13:35 Board Certified Radiologist. This report was verified electronically.
[2017-10-03] MEDS ORDERED: IOHEXOL 350 MG/ML 10 ML VIAL (for RAD DIAG) IVCONTRAST ONE (14:19)
[2017-10-03] MEDS: SUCRALFATE 1 GM/10 ML CUP PO SCH ×3 (14:30→21:00)
[2017-10-03] MEDS: PANTOPRAZOLE SODIUM 40 MG VIAL IV PUSH SCH ×2 (14:31→21:10)
--- NOTE | 2017-10-03 14:58 | HHI.GIFU ---
Subjective Remarks Pt resting in bed in NAD. Says she has nausea but no vomiting. Denies diarrhea or abd pain. (Amanda Lawrence) Objective Vitals I&O Vital Signs Date Time Temp Pulse Resp B/P (MAP) Pulse Ox O2 Delivery O2 Flow Rate FiO2 10/03/17 04:00 98.5 122 20 112/78 (89) 100 10/03/17 00:00 98.2 117 24 113/74 (87) 99 10/02/17 20:00 98.9 120 17 126/75 (92) 97 10/02/17 18:00 128 10/02/17 16:00 125 10/02/17 16:00 98.4 130 16 117/78 (91) 99 I/O 10/02/17 10/02/17 10/02/17 10/03/17 10/03/17 10/03/17 07:00 15:00 23:00 07:00 15:00 23:00 Intake Total 2061 ml 1260 ml 896 ml Balance 2061 ml 1260 ml 896 ml Intake Oral 240 ml 960 ml 240 ml IV Total 1821 ml 300 ml 656 ml # Voids 3 4 3 # Bowel Movements 0 3 0 Laboratory Laboratory Tests Test 10/03/17 05:00 White Blood Count 7.8 Red Blood Count 3.07 Hemoglobin 9.7 Hematocrit 28.0 Mean Corpuscular Volume 91.2 Mean Corpuscular Hemoglobin 31.6 Mean Corpuscular Hemoglobin Concent 34.7 Red Cell Distribution Width 19.7 Platelet Count 28 Mean Platelet Volume 11.0 CBC Comment AUTO DIFF Differential Total Cells Counted 100 Neutrophils % (Manual) 3 Lymphocytes % 25 Monocytes % 14 Neutrophils # (Manual) 0.4 Metamyelocytes 1 Myelocytes 1 Differential Comment FINAL DIFF MANUAL Blastocytes 56 Platelet Estimate LOW Platelet Morphology Comment ENLARGED Basophilic Stippling FAINT Tear Drop Cells 1+ Blood Urea Nitrogen 4 Creatinine 0.68 Random Glucose 83 Total Protein 4.6 Calcium Level 6.9 Phosphorus Level 2.4 Magnesium Level 1.5 Sodium Level 141 Potassium Level 3.8 Chloride Level 108 Carbon Dioxide Level 26.8 Anion Gap 6 Estimat Glomerular Filtration Rate 86 Protein Corrected Calcium 8.2 Date/Time Source Procedure Growth Status 10/02/17 12:00 Blood Other Aerobic Blood Culture - Preliminary NO GROWTH IN 1 DAY Resulted 10/02/17 12:00 Blood Other Anaerobic Blood Culture - Preliminary NO GROWTH IN 1 DAY Resulted 10/02/17 14:00 Stool Stool Stool Occult Blood (ALVARADO) - Final HEMOCCULT NEGATIVE Complete 10/01/17 15:14 Urine Clean Catch Urine Culture - Final 50-100,000 CFU/ML MIXED GRAM POSITIVE... 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 Findings of mild proximal colitis. Raoul Denton MD Chest X-Ray 10/01/17 1357 Signed Impressions: Service Date/Time: Sunday, October 01, 2017 14:03 - CONCLUSION: No pneumothorax status post placement of left subclavian central line which has its tip in the superior vena cava. Discoid atelectasis within the left midlung field. Desmond Jaimes MD CT Angiography 10/01/17 1251 Signed Impressions: Service Date/Time: Sunday, October 01, 2017 14:19 - CONCLUSION: 1. No evidence of pulmonary embolism. 2. Focal infiltrate within the left upper lobe posteriorly consistent with possible pneumonia. 3. Scattered atelectatic changes bilaterally. 4. Stable aneurysmal dilatation of the ascending thoracic aorta measuring 4.7 cm in greatest dimension. 5. Stable cardiomegaly and coronary artery calcifications. 6. Minimal posterior pleural thickening bilaterally. Desmond Jaimes MD Physical Exam HEENT: Normocephalic; atraumatic CHEST: CTA CARDIAC: Irregular ABDOMEN: Distended, soft, nontender, bowel sounds active SKIN: Normal; no rash; no jaundice. FINAL INSPECTION SUPERVISOR: No focal deficits; alert and oriented times three. (Amanda Lawrence CONCRETE FLOAT MAKER) Assessment and Plan Plan ASSESSMENT - anemia - hgb was 6.6 on admission, down from 7.8 on 09/28. no obvious source bleeding, had chemo 09/26/17 and per oncology note expected to have worsening pancytopenia in the coming weeks. Had EGD that found mild esophagitis, severe gastritis, no bx done d/t low PLT. last colonoscopy [address] Calderón found "inflammation." CT shows poss mild colitis. + c diff on PO vanc do not think she could tolerate bowel prep at this time. 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 blood transfusing. - epigastric pain - EGD as above. esophagitis, gastritis couldn't get bx. will check h pylori - n/v - persistent, 2/2 chemo? EGD as above. - thrombocytopenia - PLT 57 this admission - leukocytosis - ?leukemia. + c diff on PO vanc, denies diarrhea. afebrile. ID consulted. - AML (10/02) Pt with some nausea this morning, denies emesis. Reports small BM today, stool being sent for H. Pylori antigen and Hemoccult. No obvious GIB at this time. H/H currently 10.2/29.3 S/P 2 U PRBCs yesterday. She has been seen by oncology who addressed possible hospitce and pt reports she is not ready for this transition. She remains on oral Vanco and IV Flagyl. Remains on clear liquids, poor appetite. Per oncology, nutrition should be encourage for pt to gain strength. CT abdomen W pelvis W IV contrast (10/01) noted --> Minimal bowel wall thickening descending colon it could be an early mild colitis. No other etiology for abdominal pain is evident. 10/03/17 denies abd pain, diarrhea. has some nausea no vomiting. CTA showed mild colitis, mild ostial celiac stenosis, moderate SMA stenosis, moderate ostial RUBY stenosis. + c diff, on abx. stool heme negative. HH mild decrease no bleeding. PLAN - await Stool studies for H. Pylori - Continue PO vanc - full liquids - Monitor H/H - Notify GI of any active bleeding - Further recommendations to follow based on results of above Pt has been seen and examined by myself and Dr. Hernandez and this note is written on her behalf (Amanda Lawrence) Physician Comments seen, examined agree with above cta noted, we will discuss with IR if any intervention recommended full liquid diet (Quynh Hernandez MD) Amanda Lawrence Oct 03, 2017 14:58 Quynh Hernandez MD Oct 03, 2017 18:30
[2017-10-03] MEDS ORDERED: PROCHLORPERAZINE INJ 10 MG/2 ML VIAL IM ONE (16:00)
[2017-10-03] MEDS: LORazepam 0.5 MG TAB PO PRN ×2 (16:55→22:26)
[2017-10-03] MEDS: MORPHINE SULFATE 2 MG/ML INJ IV PUSH PRN ×2 (21:07→23:26)
[2017-10-04] VITALS (12 sets, daily range): BP systolic 92–143; BP diastolic 54–79; PULSE 96–141; RESP 16–24; TEMP 98.2–99.4; O2SAT 96–100
[2017-10-04] MEDS: INSULIN NovoLIN REGULAR SUPPLEMENTAL SCALE SQ SCH ×4 (03:00→20:24)
[2017-10-04] MEDS: RESP: ALBUTEROL 2.5 MG/IPRATROPIUM 0.5 MG NEB (SCH) INH ×5 (04:00→20:00)
[2017-10-04] MEDS: SUCRALFATE 1 GM/10 ML CUP PO SCH ×4 (08:00→20:24)
[2017-10-04] MEDS: DEXT 5%-NACL 0.9% 1000 ML INJ 1,000 ML IV SCH (08:00)
[2017-10-04] MEDS ORDERED: DILTIAZEM HCL 25 MG/5 ML VIAL IV PUSH ONE (08:30)
[2017-10-04] MEDS ORDERED: DILTIAZEM INJ 125 MG in SODIUM CHLORIDE 0.9% INJ 100 ML IV PRN (08:30)
--- NOTE | 2017-10-04 08:30 | HHI.PR ---
Subjective Remarks C. difficile, anemia, nausea/vomiting. The patient states that she is more comfortable today than she was yesterday. Still with significant nausea. She reports that she did not tolerate Phenergan yesterday, but the Compazine helped. She reports one normal bowel movement yesterday. No more loose stools. Objective Vitals Vital Signs Date Time Temp Pulse Resp B/P (MAP) Pulse Ox O2 Delivery O2 Flow Rate FiO2 10/04/17 06:00 124 10/04/17 04:00 118 10/04/17 04:00 99.4 96 18 92/54 (67) 96 10/04/17 00:00 98.2 117 18 118/76 (90) 96 10/04/17 00:00 120 10/04/17 00:00 16 10/03/17 22:00 117 10/03/17 20:00 122 10/03/17 20:00 98.3 122 20 109/62 (78) 97 10/03/17 18:00 129 29 10/03/17 18:00 129 10/03/17 17:00 126 23 10/03/17 17:00 126 10/03/17 16:03 124 10/03/17 16:03 124 16 111/78 (89) 10/03/17 16:00 129 10/03/17 16:00 129 10/03/17 14:00 125 10/03/17 14:00 125 28 99 10/03/17 13:00 125 10/03/17 13:00 125 28 117/82 (94) 10/03/17 12:00 118 19 110/77 (88) 97 10/03/17 12:00 118 10/03/17 11:00 115 10/03/17 11:00 115 14 104/69 (81) 10/03/17 10:00 121 10/03/17 10:00 121 24 116/82 (93) 10/03/17 09:00 125 10/03/17 09:00 125 17 113/69 (84) I/O 10/03/17 10/03/17 10/03/17 10/04/17 10/04/17 10/04/17 07:00 15:00 23:00 07:00 15:00 23:00 Intake Total 896 ml 360 ml 720 ml Output Total 250 ml Balance 896 ml 360 ml 470 ml Intake Oral 240 ml 360 ml 200 ml IV Total 656 ml 520 ml Output Urine Total 250 ml # Voids 3 8 4 # Bowel Movements 0 4 2 Result Diagram: 10/03/17 0500 10/03/17 0500 Imaging Last Impressions Abdomen/Pelvis CT 10/03/17 0000 Signed Impressions: Service Date/Time: Sunday, October 01, 2017 14:19 - CONCLUSION: 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 Moderate ostial RUBY stenosis. Findings of mild proximal colitis. Raoul Denton MD Chest X-Ray 10/01/17 1357 Signed Impressions: Service Date/Time: Sunday, October 01, 2017 14:03 - CONCLUSION: No pneumothorax status post placement of left subclavian central line which has its tip in the superior vena cava. Discoid atelectasis within the left midlung field. Desmond Jaimes MD CT Angiography 10/01/17 1251 Signed Impressions: Service Date/Time: Sunday, October 01, 2017 14:19 - CONCLUSION: 1. No evidence of pulmonary embolism. 2. Focal infiltrate within the left upper lobe posteriorly consistent with possible pneumonia. 3. Scattered atelectatic changes bilaterally. 4. Stable aneurysmal dilatation of the ascending thoracic aorta measuring 4.7 cm in greatest dimension. 5. Stable cardiomegaly and coronary artery calcifications. 6. Minimal posterior pleural thickening bilaterally. Desmond Jaimes MD Objective Remarks General: No acute distress. Heart: Tachycardic. No murmur. Lungs: Clear to auscultation bilaterally. No wheezes, rales, or rhonchi. Breathing is nonlabored. Abdomen: Soft, nontender, nondistended. Extremities: No lower extremity edema. Psych: Alert and oriented. Procedures None Urinary Catheter: No Vascular Central Line Catheter: Yes Assessment to: Continue Date of Insertion: Sep 21, 2017 Line: PICC A/P Assessment and Plan 1. Sepsis: Secondary to C. difficile colitis. Appreciate infectious disease recommendations. Continue IV Flagyl, oral vancomycin. Leukocytosis is improving. 2. Anemia, thrombocytopenia, AML: Appreciate hematology/oncology recommendations. 3. Respiratory insufficiency: Continue supplemental oxygen, bronchodilators. 4. C. difficile colitis: Diarrhea has improved. Continue IV Flagyl, oral vancomycin. Appreciate GI, infectious disease recommendations. 5. Nausea/vomiting: Continue antiemetics. 6. GI prophylaxis: Pepcid. 7. Atrial fibrillation with RVR: Rate running up into the 140s. Patient not tolerating oral medications, however she did receive her metoprolol yesterday. It is unclear if she was able to keep down or not. Add IV Cardizem. Consult cardiology. 8. DVT prophylaxis: SCDs. Avoid chemical prophylaxis secondary to anemia. Jordin Elmore MD Oct 04, 2017 08:30
[2017-10-04] MEDS: ONDANSETRON HCL 4 MG/2 ML VIAL IV PUSH SCH ×4 (08:44→23:06)
[2017-10-04] MEDS: METOPROLOL TARTRATE 25 MG TAB PO SCH ×2 (08:45→20:24)
[2017-10-04] MEDS: PANTOPRAZOLE SODIUM 40 MG VIAL IV PUSH SCH ×2 (08:45→20:23)
[2017-10-04] MEDS: MORPHINE SULFATE 2 MG/ML INJ IV PUSH PRN ×2 (08:46→23:07)
[2017-10-04] MEDS: VANCOMYCIN 500 MG VIAL (FOR ORAL USE ONLY) PO SCH ×4 (08:46→20:24)
--- NOTE | 2017-10-04 09:14 | HHI.IDPN ---
Subjective Subjective Remarks Ms. Richard is a very pleasant 67-year-old female of [place] origin. She is known to [facility] . 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 Per review of notes, based on bone marrow biopsy findings, she was found to have a background of myelodysplasia. She was a poor candidate for intense systemic chemotherapy due to her advanced COPD and at the time A. Fib with RVR. She was therefore treated with Dacogen and responded quite well to this treatment with significant reduction in circulating leukemic blasts. Following that, she received two additional outpatient doses of Dacogen for a total of three. Over the past 2-1/2 months, she has had a series of hospitalizations ( two at [facility] and one at [facility]) for symptoms ranging from anal fissures to nausea and vomiting. She was admitted at [facility] in week of Aug 2017 with complaints of nausea, vomiting, abdominal pain, constipation and inability to hold down solids and liquids. She underwent EGD which showed mild esophagitis, Severe gastritis mostly in the body of the stomach and severe duodenitis. She was noted to have an elevated WBC count of 20.5 with ANC of 0.8 and circulating blasts. Patient was thought to have resurgence of her leukemia. Patient was seen by GI and underwent endoscopies. She also had Cdiff tested for period of diarrhea and is positive for Cdiff (BNAP negative). Patient was started on Oral flagyl but since patient has persistent N/V this was switched to IV Flagyl and ID consulted for evaluation and Mment of Cdiff in Immune compromised patient given oral route options cannot be tolerated. Vanco oral was tried and tolerated. Flagyl IV stopped and patient continued to improve. Carafate was added for her severe symptomatic gastritis and she appeared to be doing well and subsequently was discharged home by hospitalist. Of note she did receive systemic chemotherapy Dacogen during that admission. Patient does not remember being told by me that she had cdiff and what the oral vanco was for. With this back ground patient presented to [facility] ED with nausea , abdominal pain and similar presentation to her most recent admission. On arrival she was tachycardiac and she became hypotensive in the ED with systolic blood pressure in the 90s. In addition she was hypoxic with saturation in the 60s. The patient was given one liter bolus of normal saline with improvements of her hemodynamics. Her laboratory data significant for anemia with hemoglobin 6.6, leukocytosis with WBC of 21.8. Her lactic acid level measured at 1.2. Overnight she received two units of PRBCs that were ordered by the ED. CT abdomen and pelvis in the ED showed minimal bowel wall thickening and descending colon which could be an early mild colitis. The patient also underwent CT angiogram of the chest which showed no evidence of PE however it showed focal infiltrate within the left upper lobe and scattered atelectatic changes bilaterally. Stable aneurysmal dilatation of the ascending thoracic aorta measuring 4.7 cm. Patient reports some abdominal cramps with feeling of nausea. The patient denies any chest pain, orthopnea, PND. She denies any diarrhea at the present time. She had a normal bowel movement semi formed since admission. At the time of my evaluation patient is in the intensive medical care unit. Dr. Dawson discussed the case with him briefly yesterday to her known history of C. difficile and presence of colitis CT abdomen pelvis decided to withhold any further IV antibiotics due to concern for flaring of the C. difficile. Overnight patient did fairly well without any systemic antibiotics. Chest x- ray was reviewed with Dr. Dawson and Dr. Yarbrough the left lobe infiltrates could be of infectious or non infectious etiology (leukemic infiltrates). Overnight events reviewed No fevers No rash No diarrhea Reports nausea and epigastric discomfort resolved since Carafate added. Antibiotics Vanco oral Flagyl IV Lines Line sites with no evidence of infection. Past Medical History Reviewed. Allergies: Coded Allergies: penicillin G (Verified Allergy, Severe, 09/19/17) aspirin (Verified Allergy, Unknown, "MAKES MY STOMACH HURT A BIT", 09/19/17 ) Objective . Vital Signs Date Time Temp Pulse Resp B/P (MAP) Pulse Ox O2 Delivery O2 Flow Rate FiO2 10/04/17 06:00 124 10/04/17 04:00 118 10/04/17 04:00 99.4 96 18 92/54 (67) 96 10/04/17 00:00 98.2 117 18 118/76 (90) 96 10/04/17 00:00 120 10/04/17 00:00 16 10/03/17 22:00 117 10/03/17 20:00 122 10/03/17 20:00 98.3 122 20 109/62 (78) 97 10/03/17 18:00 129 29 10/03/17 18:00 129 10/03/17 17:00 126 23 10/03/17 17:00 126 10/03/17 16:03 124 10/03/17 16:03 124 16 111/78 (89) 10/03/17 16:00 129 10/03/17 16:00 129 10/03/17 14:00 125 10/03/17 14:00 125 28 99 10/03/17 13:00 125 10/03/17 13:00 125 28 117/82 (94) 10/03/17 12:00 118 19 110/77 (88) 97 10/03/17 12:00 118 10/03/17 11:00 115 10/03/17 11:00 115 14 104/69 (81) 10/03/17 10:00 121 10/03/17 10:00 121 24 116/82 (93) . Laboratory Tests Test 10/03/17 05:00 White Blood Count 7.8 TH/MM3 Red Blood Count 3.07 MIL/MM3 Hemoglobin 9.7 GM/DL Hematocrit 28.0 % Mean Corpuscular Volume 91.2 FL Mean Corpuscular Hemoglobin 31.6 PG Mean Corpuscular Hemoglobin Concent 34.7 % Red Cell Distribution Width 19.7 % Platelet Count 28 TH/MM3 Mean Platelet Volume 11.0 FL CBC Comment AUTO DIFF Differential Total Cells Counted 100 Neutrophils % (Manual) 3 % Lymphocytes % 25 % Monocytes % 14 % Neutrophils # (Manual) 0.4 TH/MM3 Metamyelocytes 1 % Myelocytes 1 % Differential Comment FINAL DIFF MANUAL Blastocytes 56 % Platelet Estimate LOW Platelet Morphology Comment ENLARGED Basophilic Stippling FAINT Tear Drop Cells 1+ Laboratory Tests Test 10/02/17 12:00 10/03/17 05:00 Potassium Level 3.5 MEQ/L 3.8 MEQ/L Blood Urea Nitrogen 4 MG/DL Creatinine 0.68 MG/DL Random Glucose 83 MG/DL Total Protein 4.6 GM/DL Calcium Level 6.9 MG/DL Phosphorus Level 2.4 MG/DL Magnesium Level 1.5 MG/DL Sodium Level 141 MEQ/L Chloride Level 108 MEQ/L Carbon Dioxide Level 26.8 MEQ/L Anion Gap 6 MEQ/L Estimat Glomerular Filtration Rate 86 ML/MIN Protein Corrected Calcium 8.2 MG/DL Microbiology Date/Time Source Procedure Growth Status 10/02/17 12:00 Blood Other Aerobic Blood Culture - Preliminary NO GROWTH IN 1 DAY Resulted 10/02/17 12:00 Blood Other Anaerobic Blood Culture - Preliminary NO GROWTH IN 1 DAY Resulted 10/01/17 12:50 Blood Peripheral Aerobic Blood Culture - Preliminary NO GROWTH IN 2 DAYS Resulted 10/01/17 12:50 Blood Peripheral Anaerobic Blood Culture - Preliminary NO GROWTH IN 2 DAYS Resulted 10/01/17 12:45 Blood Peripheral Aerobic Blood Culture - Preliminary NO GROWTH IN 2 DAYS Resulted 10/01/17 12:45 Blood Peripheral Anaerobic Blood Culture - Preliminary NO GROWTH IN 2 DAYS Resulted 10/02/17 14:00 Stool Stool Stool Occult Blood (ALVARADO) - Final HEMOCCULT NEGATIVE Complete 10/01/17 15:14 Urine Clean Catch Urine Culture - Final 50-100,000 CFU/ML MIXED GRAM POSITIVE... Complete 10/01/17 15:14 Urine Catheterized Urine Legionella Antigen - Final PRESUMPTIVE NEGATIVE FOR LEGIONELLA P... Complete 10/01/17 15:14 Urine Catheterized Urine Streptococcus pneumoniae Antigen (M - Final PRESUMPTIVE NEGATIVE FOR STREPTOCOCCU... Complete Imaging Last Impressions Chest X-Ray 10/01/17 1357 Signed Impressions: Service Date/Time: Sunday, October 01, 2017 14:03 - CONCLUSION: No pneumothorax status post placement of left subclavian central line which has its tip in the superior vena cava. Discoid atelectasis within the left midlung field. Desmond Jaimes MD CT Angiography 10/01/17 1251 Signed Impressions: Service Date/Time: Sunday, October 01, 2017 14:19 - CONCLUSION: 1. No evidence of pulmonary embolism. 2. Focal infiltrate within the left upper lobe posteriorly consistent with possible pneumonia. 3. Scattered atelectatic changes bilaterally. 4. Stable aneurysmal dilatation of the ascending thoracic aorta measuring 4.7 cm in greatest dimension. 5. Stable cardiomegaly and coronary artery calcifications. 6. Minimal posterior pleural thickening bilaterally. Desmond Jaimes MD Abdomen/Pelvis CT 10/01/17 1245 Signed Impressions: Service Date/Time: Sunday, October 01, 2017 14:19 - CONCLUSION: Minimal bowel wall thickening descending colon it could be an early mild colitis. No other etiology for the abdominal pain is evident There is no evidence for significant congestive failure. Inferior vena cava is patent. Darrell Carter MD FACR Physical Exam GENERAL: This is a well-nourished, well-developed patient, in no apparent distress. SKIN: No rashes, ecchymoses or lesions. Cool and dry. HEAD: Atraumatic. Normocephalic. No temporal or scalp tenderness. EYES: Pupils equal round and reactive. Extraocular motions intact. No scleral icterus. No injection or drainage. ENT: Nose without bleeding, purulent drainage or septal hematoma. Throat without erythema, tonsillar hypertrophy or exudate. Uvula midline. Airway patent. NECK: Trachea midline. Supple, nontender, no meningeal signs. CARDIOVASCULAR: Regular rate and rhythm without murmurs, gallops, or rubs. RESPIRATORY: Clear to auscultation. Breath sounds equal bilaterally. No wheezes , rales, or rhonchi. GASTROINTESTINAL: Abdomen soft, diffuse tenderness. MUSCULOSKELETAL: Extremities without clubbing, cyanosis, or edema. No joint tenderness, effusion, or edema noted. No calf tenderness. Negative Homans sign bilaterally. NEUROLOGICAL: Awake and alert. Cranial nerves II through XII intact. Motor and sensory grossly within normal limits. Five out of 5 muscle strength in all muscle groups. Normal speech. Psych cooperative IV line sites with no e/o infection. Assessment & Plan Remarks Severe Sepsis present on admission. Cdiff Colitis was on oral vanco prior to admission. No need to retest. High grade leucocytosis. Anemia: no acute blood loss. GI on board. Hemonc on board. Left upper lobe infiltrate could be of infectious or non infectious etiology ( leukemic infiltrates). AML s.p Dacogen on 09/26/17. Immune compromised host. PICC in place for chemotherapy. Recs: Continue oral vanco (tentative stop date in EMR: 10/16/17) Please ensure patient has carafate on discharge but it needs to be spaced out from Vanco oral as it can bind the Vanco and decrease effective dose. DC central line. Ok to keep PICC line if needed by Oncology for Chemotherapy. Follow cultures Follow clinically. Discussed with RN. Discussed with Dr. Hernandez consider adding Carafate. Kassidy Morfin MD Oct 04, 2017 09:14
--- NOTE | 2017-10-04 09:37 | PD.ONC.PN ---
Subjective Subjective Remarks Pt seen and examined, VS, labs, medications and imaging studies reviewed. Pt reports continued nausea, but she was able to have some soup yesterday. She has had A-fib with RVR and was on a Diltiazem drip yesterday, this has been d/daly. Her HR remains >125 bpm. The patient tells me she spent all day in bed yesterday, she feels weak overall. Objective Data Date Time Temp Pulse Resp B/P (MAP) Pulse Ox O2 Delivery O2 Flow Rate FiO2 10/04/17 06:00 124 10/04/17 04:00 118 10/04/17 04:00 99.4 96 18 92/54 (67) 96 10/04/17 00:00 98.2 117 18 118/76 (90) 96 10/04/17 00:00 120 10/04/17 00:00 16 10/03/17 22:00 117 10/03/17 20:00 122 10/03/17 20:00 98.3 122 20 109/62 (78) 97 10/03/17 18:00 129 29 10/03/17 18:00 129 10/03/17 17:00 126 23 10/03/17 17:00 126 10/03/17 16:03 124 10/03/17 16:03 124 16 111/78 (89) 10/03/17 16:00 129 10/03/17 16:00 129 10/03/17 14:00 125 10/03/17 14:00 125 28 99 10/03/17 13:00 125 10/03/17 13:00 125 28 117/82 (94) 10/03/17 12:00 118 19 110/77 (88) 97 10/03/17 12:00 118 10/03/17 11:00 115 10/03/17 11:00 115 14 104/69 (81) 10/03/17 10:00 121 10/03/17 10:00 121 24 116/82 (93) 10/04/17 10/04/17 10/04/17 07:00 15:00 23:00 Intake Total 720 ml Output Total 250 ml Balance 470 ml Result Diagram: 10/03/17 0500 10/03/17 0500 Culture Results Microbiology Date/Time Source Procedure Growth Status 10/02/17 12:00 Blood Other Aerobic Blood Culture - Preliminary NO GROWTH IN 1 DAY Resulted 10/02/17 12:00 Blood Other Anaerobic Blood Culture - Preliminary NO GROWTH IN 1 DAY Resulted 10/01/17 12:50 Blood Peripheral Aerobic Blood Culture - Preliminary NO GROWTH IN 2 DAYS Resulted 10/01/17 12:50 Blood Peripheral Anaerobic Blood Culture - Preliminary NO GROWTH IN 2 DAYS Resulted 10/01/17 12:45 Blood Peripheral Aerobic Blood Culture - Preliminary NO GROWTH IN 2 DAYS Resulted 10/01/17 12:45 Blood Peripheral Anaerobic Blood Culture - Preliminary NO GROWTH IN 2 DAYS Resulted 10/02/17 14:00 Stool Stool Stool Occult Blood (ALVARADO) - Final HEMOCCULT NEGATIVE Complete 10/01/17 15:14 Urine Clean Catch Urine Culture - Final 50-100,000 CFU/ML MIXED GRAM POSITIVE... Complete 10/01/17 15:14 Urine Catheterized Urine Legionella Antigen - Final PRESUMPTIVE NEGATIVE FOR LEGIONELLA P... Complete 10/01/17 15:14 Urine Catheterized Urine Streptococcus pneumoniae Antigen (M - Final PRESUMPTIVE NEGATIVE FOR STREPTOCOCCU... Complete Administered Medications Medications (Trade) Dose Ordered Sig/Tylor Route PRN Reason Start Time Stop Time Status Last Admin Dose Admin Sodium Chloride (NS Flush) 2 ml UNSCH PRN IV FLUSH FLUSH AFTER USING IV ACCESS 10/01/17 12:45 10/03/17 08:27 Albuterol/ Ipratropium (Duoneb Neb) 1 ampule Q4HR NEB INH 10/01/17 16:00 10/01/17 15:34 Chlorhexidine Gluconate (Chlorhexidine 2% Cloth) 3 pack Taper DAILY@04 TOP 10/02/17 04:00 09/28/18 03:59 10/03/17 03:03 Vancomycin HCl (VANCOMYCIN for oral use only) 125 mg QID PO 10/01/17 15:00 10/16/17 14:59 10/04/17 08:46 Potassium Chloride 100 ml @ 25 mls/hr UNSCH PRN IV For Potassium 3.3 - 3.5 mEq/L 10/01/17 15:00 10/02/17 15:36 Potassium Chloride 100 ml @ 50 mls/hr Q2H PRN IV For Potassium 3.3 - 3.5 mEq/L 10/01/17 15:00 10/02/17 04:00 Magnesium Sulfate 2 gm/Sodium Chloride 100 ml @ 50 mls/hr UNSCH PRN IV For Magnesium 1.2 - 1.6 mg/dL 10/01/17 15:00 10/03/17 11:31 Sodium Phosphate 30 mmol/Sodium Chloride 250 ml @ 42 mls/hr UNSCH PRN IV For Phosphorus < 2.5 mg/dL 10/01/17 15:00 10/03/17 13:13 Potassium Phosphate 30 mmol/ Sodium Chloride 260 ml @ 42 mls/hr UNSCH PRN IV SEE LABEL COMMENTS 10/01/17 15:00 10/01/17 18:17 Dextrose (D50w (Vial) Inj) 50 ml UNSCH PRN IV PUSH HYPOGLYCEMIA-SEE COMMENTS 10/01/17 15:00 10/01/17 16:27 Morphine Sulfate (Morphine Inj) 2 mg Q3H PRN IV PUSH pain 6-10 10/01/17 21:30 10/04/17 08:46 Ondansetron HCl (Zofran Inj) 4 mg Q6HR IV PUSH 10/02/17 12:00 10/04/17 08:44 Metoprolol Tartrate (Lopressor) 25 mg Q12HR PO 10/02/17 14:45 10/04/17 08:45 Dextrose/Sodium Chloride 1,000 ml @ 50 mls/hr Q20H IV 10/02/17 16:00 10/03/17 08:37 Sucralfate (Carafate Liq) 1 gm ACHS PO 10/03/17 12:00 10/03/17 18:50 Pantoprazole Sodium (Protonix Inj) 40 mg Q12HR IV PUSH 10/03/17 11:30 10/04/17 08:45 Lorazepam (Ativan) 0.5 mg Q8H PRN PO ANXIETY 10/03/17 16:00 10/03/17 22:26 Objective Remarks General Physical Appearance: Ms. Read is a chronically ill and pale-appearing elderly lady. She is laying in bed, she appears to be comfortable. She was asleep when I walked in but is easily arousable. She speaks to be in full sentences and is alert and oriented x3. HEENT: Head atraumatic, normocephalic. Conjunctivae are pale. Sclerae are anicteric. EOMI. PERRLA. Oral exam - no pharyngeal erythema. Neck Exam: No palpable cervical or supraclavicular lymphadenopathy. Respiratory Exam: Good inspiratory effort, scattered inspiratory crepitus along bilateral lower lung atkins. No wheezing or rhonchi. Cardiovascular: Irregular, tachycardiac, S1-S2. No obvious murmurs, rubs or gallops. Abdominal Examination: Protuberant belly. Soft. No obvious tenderness, no masses palpable. Lower Extremities: No pretibial edema or calf tenderness. ROAD CONSULTANT: No focal sensorimotor deficits. Musculoskeletal: Generally decreased muscle mass and tone. 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 TREATMENT HISTORY TO DATE The patient is status post four cycles of Dacogen. She was initiated on treatment in February of 2017. Ms. 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 Her disease is negative for the FLP-3 mutation, positive for NPM-1 mutation and negative for the CEPBA mutation. She has been on treatment with Dacogen and has received four cycles thus far with the most recent cycle completed 7 days ago. She presented to hospital three days after her most recent discharge. She was admitted to the hospital at that time with C-diff colitis. The patient reports symptoms of abdominal pain, nausea, inability tolerate oral intake and generalized weakness and fatigue. She was unable to care for herself at home even with the help of her daughter and was brought into [place] [facility] last night. The patient was noted to be tachycardiac and hypotensive. She was assessed to have severe sepsis likely secondary to C-diff colitis and was admitted to the hospital for IV fluid hydration and antibiotic therapy. She did also require 2 units of packed red blood cell transfusion for a hemoglobin of 6.2 gm/dl at the time of presentation. Plan 1. Acute myeloid leukemia arising from a background of myelodysplastic syndrome : Status post cycle #4 Dacogen last week. She remained cytopenic but her platelet counts are in fact improved above baseline, her WBC count is also improved following Dacogen administration. 2. Nausea: It seems there is an association between anxiety and her nausea. The patient tells me that her nausea seems to become more noticeable whenever I talked to her about her leukemia and additional treatment as well as prognosis. She tells me she is willing to try a liquid diet today, she feels that going to a heart healthy regular diet would be too much for her to attempt at this point. Continue [id number] Zofran. Now also on compazine and phenergan. Encourage PO intake. 3. C. difficile colitis related sepsis: Continue IV metronidazole and by mouth vancomycin. 4. Physical debility: Request physical therapy evaluation. 5. A. fib with RVR: Rate control, not on anticoagulation due to thrombocytopenia. Disposition: I have encouraged the patient to try to eat better and to get up out of bed more. She will need to show a little more motivation and be active, her performance status will need to improve significantly for her to be able to care for her self outside the hospital setting. Roberto Yarbrough MD Oct 04, 2017 09:37
--- NOTE | 2017-10-04 13:05 | HHI.GIFU ---
Subjective Remarks Resting in bed in NAD. Says she is drinking ensure. still nauseous. + liquid stool. (Amanda Lawrence) Objective Vitals I&O Vital Signs Date Time Temp Pulse Resp B/P (MAP) Pulse Ox O2 Delivery O2 Flow Rate FiO2 10/04/17 06:00 124 10/04/17 04:00 118 10/04/17 04:00 99.4 96 18 92/54 (67) 96 10/04/17 00:00 98.2 117 18 118/76 (90) 96 10/04/17 00:00 120 10/04/17 00:00 16 10/03/17 22:00 117 10/03/17 20:00 122 10/03/17 20:00 98.3 122 20 109/62 (78) 97 10/03/17 18:00 129 29 10/03/17 18:00 129 10/03/17 17:00 126 23 10/03/17 17:00 126 10/03/17 16:03 124 10/03/17 16:03 124 16 111/78 (89) 10/03/17 16:00 129 10/03/17 16:00 129 10/03/17 14:00 125 10/03/17 14:00 125 28 99 I/O 10/03/17 10/03/17 10/03/17 10/04/17 10/04/17 10/04/17 06:59 14:59 22:59 06:59 14:59 22:59 Intake Total 896 ml 360 ml 720 ml Output Total 250 ml Balance 896 ml 360 ml 470 ml Intake Oral 240 ml 360 ml 200 ml IV Total 656 ml 520 ml Output Urine Total 250 ml # Voids 3 8 4 # Bowel Movements 0 4 2 Laboratory Date/Time Source Procedure Growth Status 10/02/17 12:00 Blood Other Aerobic Blood Culture - Preliminary NO GROWTH IN 2 DAYS Resulted 10/02/17 12:00 Blood Other Anaerobic Blood Culture - Preliminary NO GROWTH IN 2 DAYS Resulted 10/02/17 14:00 Stool Stool Stool Occult Blood (ALVARADO) - Final HEMOCCULT NEGATIVE Complete 10/01/17 15:14 Urine Clean Catch Urine Culture - Final 50-100,000 CFU/ML MIXED GRAM POSITIVE... 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 Findings of mild proximal colitis. Raoul Denton MD Chest X-Ray 10/01/17 1357 Signed Impressions: Service Date/Time: Sunday, October 01, 2017 14:03 - CONCLUSION: No pneumothorax status post placement of left subclavian central line which has its tip in the superior vena cava. Discoid atelectasis within the left midlung field. Desmond Jaimes MD CT Angiography 10/01/17 1251 Signed Impressions: Service Date/Time: Sunday, October 01, 2017 14:19 - CONCLUSION: 1. No evidence of pulmonary embolism. 2. Focal infiltrate within the left upper lobe posteriorly consistent with possible pneumonia. 3. Scattered atelectatic changes bilaterally. 4. Stable aneurysmal dilatation of the ascending thoracic aorta measuring 4.7 cm in greatest dimension. 5. Stable cardiomegaly and coronary artery calcifications. 6. Minimal posterior pleural thickening bilaterally. Desmond Jaimes MD Physical Exam HEENT: Normocephalic; atraumatic CHEST: CTA CARDIAC: tachy ABDOMEN: Distended, soft, mild TTP diffusely, bowel sounds active SKIN: Normal; no rash; no jaundice. MOBILE SALES CONSULTANT: No focal deficits; alert and oriented times three. (Amanda Lawrence [facility]) Assessment and Plan Plan ASSESSMENT - anemia - hgb was 6.6 on admission, down from 7.8 on 09/28. no obvious source bleeding, had chemo 09/26/17 and per oncology note expected to have worsening pancytopenia in the coming weeks. Had EGD that found mild esophagitis, severe gastritis, no bx done d/t low PLT. last colonoscopy [address] Calderón found "inflammation." CT shows poss mild colitis. + c diff on PO vanc do not think she could tolerate bowel prep at this time. 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 blood transfusing. - epigastric pain - EGD as above. esophagitis, gastritis couldn't get bx. will check h pylori - n/v - persistent, 2/2 chemo? EGD as above. - thrombocytopenia - PLT 57 this admission - leukocytosis - ?leukemia. + c diff on PO vanc, denies diarrhea. afebrile. ID consulted. - AML (10/02) Pt with some nausea this morning, denies emesis. Reports small BM today, stool being sent for H. Pylori antigen and Hemoccult. No obvious GIB at this time. H/H currently 10.2/29.3 S/P 2 U PRBCs yesterday. She has been seen by oncology who addressed possible hospitce and pt reports she is not ready for this transition. She remains on oral Vanco and IV Flagyl. Remains on clear liquids, poor appetite. Per oncology, nutrition should be encourage for pt to gain strength. CT abdomen W pelvis W IV contrast (10/01) noted --> Minimal bowel wall thickening descending colon it could be an early mild colitis. No other etiology for abdominal pain is evident. 10/03/17 denies abd pain, diarrhea. has some nausea no vomiting. CTA showed mild colitis, mild ostial celiac stenosis, moderate SMA stenosis, moderate ostial RUBY stenosis. + c diff, on abx. stool heme negative. HH mild decrease no bleeding. 10/04/17 no abd pain. + liquid stool today. nauseous, is tolerating Ensure. HH stable PLAN - await Stool studies for H. Pylori - Continue PO vanc - full liquids, ensure - encourage PO intake - Monitor H/H - Notify GI of any active bleeding - GI will sign off. please reconsult if needed. Pt has been seen and examined by myself and Dr. Hernandez and this note is written on her behalf (Amanda Lawrence) Physician Comments seen, examined trial of Nystatin and Reglan rifaximin 550 mg po bid cta noted-no significant stenosis -if worse abdominal pain consider consulting IR cortisol, tsh we will add iv Flagyl (Quynh Hernandez MD) Amanda Lawrence Oct 04, 2017 13:05 Quynh Hernandez MD Oct 04, 2017 15:53
[2017-10-04] MEDS: NYSTATIN SUSP 500,000 U/5 ML CUP SWISH-SWAL SCH ×2 (17:44→20:24)
[2017-10-04] MEDS: metroNIDAZOLE 500 MG INJ 100 ML IV SCH ×2 (17:44→23:07)
[2017-10-04] MEDS: RIFAXIMIN 550 MG TAB PO SCH (20:24)
[2017-10-04] MEDS: DEXTROSE 50% IN WATER 50 ML VIAL(D50) IV PUSH PRN (20:25)
[2017-10-04] MEDS: METOCLOPRAMIDE HCL 10 MG/2 ML VIAL IM SCH (20:38)
[2017-10-04 21:03] LABS: HEMATOCRIT 30.8 % (35.0-46.0); HEMOGLOBIN 10.4 GM/DL (11.6-15.3); MEAN CELL VOLUME 92.3 FL (80.0-100.0); MEAN CORPUSCULAR HEMOGLOBIN 31.2 PG (27.0-34.0); MEAN CORPUSCULAR HGB CONC 33.8 % (32.0-36.0); MEAN PLATELET VOLUME 10.5 FL (7.0-11.0); PLATELET COUNT 39 TH/MM3 (150-450); RED BLOOD COUNT 3.34 MIL/MM3 (4.00-5.30); RED CELL DISTRIBUTION WIDTH 19.1 % (11.6-17.2); WHITE BLOOD COUNT 10.3 TH/MM3 (4.0-11.0)
[2017-10-04 21:13] LABS: BICARBONATE 27.2 MEQ/L (21.0-32.0); CALCIUM 7.5 MG/DL (8.5-10.1); CREATININE 0.99 MG/DL (0.50-1.00)
[2017-10-04 22:03] LABS: BLASTS 67 % (0-0); LYMPHOCYTES 26 % (9-44); MONOCYTES 5 % (0-8); NEUTROPHIL # MANUAL DIFF 0.2 TH/MM3 (1.8-7.7); POLYS (SEG NEUTROPHILS) 2 % (16-70)
[2017-10-04 22:07] LABS: BURR CELLS 1+ (NORMAL); OVALOCYTES 1+ (NORMAL); TEARDROP RBCS 1+ (NORMAL)
[2017-10-05] VITALS (20 sets, daily range): BP systolic 85–130; BP diastolic 48–73; PULSE 76–120; RESP 12–32; TEMP 98.6–100.1; O2SAT 91–98
[2017-10-05] MEDS: INSULIN NovoLIN REGULAR SUPPLEMENTAL SCALE SQ SCH ×4 (03:00→21:00)
[2017-10-05] MEDS: RESP: ALBUTEROL 2.5 MG/IPRATROPIUM 0.5 MG NEB (SCH) INH ×4 (04:00→11:46)
[2017-10-05] MEDS: CHLORHEXIDINE GLUCONATE 2 % 1 PACK (2 CLOTHS) TOP SCH (04:00)
[2017-10-05] MEDS: DEXT 5%-NACL 0.9% 1000 ML INJ 1,000 ML IV SCH (04:08)
[2017-10-05] MEDS: ONDANSETRON HCL 4 MG/2 ML VIAL IV PUSH SCH ×3 (04:59→17:45)
[2017-10-05] MEDS: METOCLOPRAMIDE HCL 10 MG/2 ML VIAL IM SCH ×3 (04:59→20:54)
[2017-10-05 05:00] LABS: HEMATOCRIT 29.6 % (35.0-46.0); HEMOGLOBIN 9.9 GM/DL (11.6-15.3); MEAN CELL VOLUME 92.4 FL (80.0-100.0); MEAN CORPUSCULAR HEMOGLOBIN 30.9 PG (27.0-34.0); MEAN CORPUSCULAR HGB CONC 33.4 % (32.0-36.0); PLATELET COUNT 47 TH/MM3 (150-450); RED CELL DISTRIBUTION WIDTH 19.2 % (11.6-17.2); WHITE BLOOD COUNT 10.8 TH/MM3 (4.0-11.0)
[2017-10-05] MEDS: MORPHINE SULFATE 2 MG/ML INJ IV PUSH PRN ×3 (05:00→20:53)
[2017-10-05 05:24] LABS: BICARBONATE 25.1 MEQ/L (21.0-32.0); CREATININE 0.72 MG/DL (0.50-1.00); MAGNESIUM 1.8 MG/DL (1.5-2.5); PHOSPHORUS 2.3 MG/DL (2.5-4.9)
[2017-10-05 06:08] LABS: CALCIUM-PROTEIN CORRECTED 8.5 MG/DL (8.5-10.1); TOTAL PROTEIN 4.4 GM/DL (6.4-8.2)
[2017-10-05] MEDS: POTASSIUM PHOSPHATE INJ 30 MMOL in SODIUM CHLOR 0.9% 250 ML INJ 250 ML IV PRN (06:51)
[2017-10-05 08:31] LABS: BLASTS 66 % (0-0); CORRECTED NUCLEATED RBC 2 /100 WBC (0-0); LYMPHOCYTES 19 % (9-44); METAMYELOCYTES 1 % (0-1); MONOCYTES 4 % (0-8); MYELOCYTES 2 % (0-0); NEUTROPHIL # MANUAL DIFF 1.2 TH/MM3 (1.8-7.7); NUCLEATED RED BLOOD CELL 2 (0-0); OVALOCYTES 1+ (NORMAL); POLYS (SEG NEUTROPHILS) 8 % (16-70); TEARDROP RBCS 1+ (NORMAL)
[2017-10-05] MEDS: metroNIDAZOLE 500 MG INJ 100 ML IV SCH ×2 (08:43→17:45)
[2017-10-05] MEDS: RIFAXIMIN 550 MG TAB PO SCH ×2 (08:43→20:51)
[2017-10-05] MEDS: VANCOMYCIN 500 MG VIAL (FOR ORAL USE ONLY) PO SCH (08:43)
[2017-10-05] MEDS: NYSTATIN SUSP 500,000 U/5 ML CUP SWISH-SWAL SCH ×4 (08:43→20:51)
[2017-10-05] MEDS: METOPROLOL TARTRATE 25 MG TAB PO SCH ×2 (08:44→20:51)
[2017-10-05] MEDS: PANTOPRAZOLE SODIUM 40 MG VIAL IV PUSH SCH ×2 (08:44→20:48)
[2017-10-05] MEDS: SUCRALFATE 1 GM/10 ML CUP PO SCH ×4 (08:44→20:50)
[2017-10-05] MEDS ORDERED: TRIMETHOBENZAMIDE INJ 200 MG/2 ML VIAL IM PRN (08:45)
--- NOTE | 2017-10-05 09:05 | HHI.PR ---
Subjective Remarks Follow up nausea/vomiting, c difficile. Patient with severe nausea this morning. States that she has had nausea and vomiting "all night". No dyspnea, chest pain. Objective Vitals Vital Signs Date Time Temp Pulse Resp B/P (MAP) Pulse Ox O2 Delivery O2 Flow Rate FiO2 10/05/17 06:00 80 10/05/17 04:00 99.1 84 22 113/67 (82) 98 10/05/17 04:00 78 10/05/17 02:00 120 10/05/17 00:00 100.1 115 15 85/53 (64) 97 10/05/17 00:00 115 10/04/17 22:00 119 10/04/17 20:00 98.7 128 22 132/79 (96) 100 10/04/17 20:00 128 10/04/17 18:00 120 10/04/17 16:00 120 10/04/17 16:00 98.7 115 16 94/56 (69) 10/04/17 15:00 115 10/04/17 15:00 116 10/04/17 14:00 120 10/04/17 12:00 99.1 119 16 93/55 (68) 10/04/17 12:00 120 10/04/17 10:00 120 I/O 10/04/17 10/04/17 10/04/17 10/05/17 10/05/17 10/05/17 07:00 15:00 23:00 07:00 15:00 23:00 Intake Total 720 ml 1200 ml 220 ml Output Total 250 ml Balance 470 ml 1200 ml 220 ml Intake Oral 200 ml 500 ml 120 ml IV Total 520 ml 700 ml 100 ml Output Urine Total 250 ml # Voids 4 3 # Bowel Movements 2 2 Result Diagram: 10/05/17 0415 10/05/17 0415 Imaging Last Impressions Abdomen/Pelvis CT 10/03/17 0000 Signed Impressions: Service Date/Time: Sunday, October 01, 2017 14:19 - CONCLUSION: 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 Moderate ostial RUBY stenosis. Findings of mild proximal colitis. Raoul Denton MD Chest X-Ray 10/01/17 0329 Signed Impressions: Service Date/Time: Sunday, October 01, 2017 14:03 - CONCLUSION: No pneumothorax status post placement of left subclavian central line which has its tip in the superior vena cava. Discoid atelectasis within the left midlung field. Desmond Jaimes MD CT Angiography 10/01/17 1251 Signed Impressions: Service Date/Time: Sunday, October 01, 2017 14:19 - CONCLUSION: 1. No evidence of pulmonary embolism. 2. Focal infiltrate within the left upper lobe posteriorly consistent with possible pneumonia. 3. Scattered atelectatic changes bilaterally. 4. Stable aneurysmal dilatation of the ascending thoracic aorta measuring 4.7 cm in greatest dimension. 5. Stable cardiomegaly and coronary artery calcifications. 6. Minimal posterior pleural thickening bilaterally. Desmond Jaimes MD Objective Remarks General: No acute distress. Appears uncomfortable. Heart: Regular rate and rhythm. No murmur. Lungs: Clear to auscultation bilaterally. No wheezes, rales, or rhonchi. Breathing is nonlabored. Abdomen: Soft, nontender, nondistended. Extremities: No lower extremity edema. Psych: Alert and oriented. Procedures None Urinary Catheter: No Vascular Central Line Catheter: Yes Assessment to: Continue Date of Insertion: Sep 21, 2017 Line: PICC A/P Assessment and Plan 1. Sepsis: Secondary to C. difficile colitis. Appreciate infectious disease recommendations. Continue IV Flagyl, oral vancomycin. Leukocytosis improved. Discussed with Dr. Mrofin. 2. Anemia, thrombocytopenia, AML: Appreciate hematology/oncology recommendations. H/H stable. 3. Respiratory insufficiency: Continue supplemental oxygen, bronchodilators. 4. C. difficile colitis: Diarrhea has improved. Continue IV Flagyl, oral vancomycin. Appreciate GI, infectious disease recommendations. 5. Nausea/vomiting: Not controlled by Zofran. Patient also receiving Reglan. Had adverse reaction to phenergan. Add Tigan. 6. GI prophylaxis: Pepcid. 7. Atrial fibrillation with RVR: Rate is improved today. No anticoagulation due to thrombocytopenia. Cardiology consult is pending. 8. DVT prophylaxis: SCDs. Avoid chemical prophylaxis secondary to anemia. Jordin Elmore MD Oct 05, 2017 09:05
--- NOTE | 2017-10-05 09:11 | HHI.IDPN ---
Subjective Subjective Remarks Ms. Richard is a very pleasant 67-year-old female of [place] origin. She is known to [facility] . 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 Per review of notes, based on bone marrow biopsy findings, she was found to have a background of myelodysplasia. She was a poor candidate for intense systemic chemotherapy due to her advanced COPD and at the time A. Fib with RVR. She was therefore treated with Dacogen and responded quite well to this treatment with significant reduction in circulating leukemic blasts. Following that, she received two additional outpatient doses of Dacogen for a total of three. Over the past 2-1/2 months, she has had a series of hospitalizations ( two at [facility] and one at [facility]) for symptoms ranging from anal fissures to nausea and vomiting. She was admitted at [place] in week of Aug 2017 with complaints of nausea, vomiting, abdominal pain, constipation and inability to hold down solids and liquids. She underwent EGD which showed mild esophagitis, Severe gastritis mostly in the body of the stomach and severe duodenitis. She was noted to have an elevated WBC count of 20.5 with ANC of 0.8 and circulating blasts. Patient was thought to have resurgence of her leukemia. Patient was seen by GI and underwent endoscopies. She also had Cdiff tested for period of diarrhea and is positive for Cdiff (BNAP negative). Patient was started on Oral flagyl but since patient has persistent N/V this was switched to IV Flagyl and ID consulted for evaluation and Mment of Cdiff in Immune compromised patient given oral route options cannot be tolerated. Vanco oral was tried and tolerated. Flagyl IV stopped and patient continued to improve. Carafate was added for her severe symptomatic gastritis and she appeared to be doing well and subsequently was discharged home by hospitalist. Of note she did receive systemic chemotherapy Dacogen during that admission. Patient does not remember being told by me that she had cdiff and what the oral vanco was for. With this back ground patient presented to [facility] ED with nausea , abdominal pain and similar presentation to her most recent admission. On arrival she was tachycardiac and she became hypotensive in the ED with systolic blood pressure in the 90s. In addition she was hypoxic with saturation in the 60s. The patient was given one liter bolus of normal saline with improvements of her hemodynamics. Her laboratory data significant for anemia with hemoglobin 6.6, leukocytosis with WBC of 21.8. Her lactic acid level measured at 1.2. Overnight she received two units of PRBCs that were ordered by the ED. CT abdomen and pelvis in the ED showed minimal bowel wall thickening and descending colon which could be an early mild colitis. The patient also underwent CT angiogram of the chest which showed no evidence of PE however it showed focal infiltrate within the left upper lobe and scattered atelectatic changes bilaterally. Stable aneurysmal dilatation of the ascending thoracic aorta measuring 4.7 cm. Patient reports some abdominal cramps with feeling of nausea. The patient denies any chest pain, orthopnea, PND. She denies any diarrhea at the present time. She had a normal bowel movement semi formed since admission. At the time of my evaluation patient is in the intensive medical care unit. Dr. Dawson discussed the case with him briefly yesterday to her known history of C. difficile and presence of colitis CT abdomen pelvis decided to withhold any further IV antibiotics due to concern for flaring of the C. difficile. Overnight patient did fairly well without any systemic antibiotics. Chest x- ray was reviewed with Dr. Dawson and Dr. Yarbrough the left lobe infiltrates could be of infectious or non infectious etiology (leukemic infiltrates). Overnight events reviewed Low grade fevers 100.1. No rash No diarrhea Reports nausea wants Zofran adjusted. Antibiotics Vanco oral Lines Line sites with no evidence of infection. Past Medical History Reviewed. Allergies: Coded Allergies: penicillin G (Verified Allergy, Severe, 09/19/17) aspirin (Verified Allergy, Unknown, "MAKES MY STOMACH HURT A BIT", 09/19/17 ) Objective . Vital Signs Date Time Temp Pulse Resp B/P (MAP) Pulse Ox O2 Delivery O2 Flow Rate FiO2 10/05/17 06:00 80 10/05/17 04:00 99.1 84 22 113/67 (82) 98 10/05/17 04:00 78 10/05/17 02:00 120 10/05/17 00:00 100.1 115 15 85/53 (64) 97 10/05/17 00:00 115 10/04/17 22:00 119 10/04/17 20:00 98.7 128 22 132/79 (96) 100 10/04/17 20:00 128 10/04/17 18:00 120 10/04/17 16:00 120 10/04/17 16:00 98.7 115 16 94/56 (69) 10/04/17 15:00 115 10/04/17 15:00 116 10/04/17 14:00 120 10/04/17 12:00 99.1 119 16 93/55 (68) 10/04/17 12:00 120 10/04/17 10:00 120 . Laboratory Tests Test 10/04/17 18:30 10/05/17 04:15 White Blood Count 10.3 TH/MM3 10.8 TH/MM3 Red Blood Count 3.34 MIL/MM3 3.20 MIL/MM3 Hemoglobin 10.4 GM/DL 9.9 GM/DL Hematocrit 30.8 % 29.6 % Mean Corpuscular Volume 92.3 FL 92.4 FL Mean Corpuscular Hemoglobin 31.2 PG 30.9 PG Mean Corpuscular Hemoglobin Concent 33.8 % 33.4 % Red Cell Distribution Width 19.1 % 19.2 % Platelet Count 39 TH/MM3 47 TH/MM3 Mean Platelet Volume 10.5 FL 12.0 FL CBC Comment AUTO DIFF AUTO DIFF Differential Total Cells Counted 100 100 Neutrophils % (Manual) 2 % 8 % Lymphocytes % 26 % 19 % Monocytes % 5 % 4 % Neutrophils # (Manual) 0.2 TH/MM3 1.2 TH/MM3 Differential Comment FINAL DIFF MANUAL FINAL DIFF MANUAL Blastocytes 67 % 66 % Platelet Estimate LOW LOW Platelet Morphology Comment ENLARGED NORMAL Tear Drop Cells 1+ 1+ Ovalocytes 1+ 1+ [place] Cells 1+ Metamyelocytes 1 % Myelocytes 2 % Nucleated Red Blood Cells 2 /100 WBC Laboratory Tests Test 10/04/17 18:30 10/04/17 21:45 10/05/17 04:15 Blood Urea Nitrogen 3 MG/DL 3 MG/DL Creatinine 0.99 MG/DL 0.72 MG/DL Random Glucose 91 MG/DL 89 MG/DL Calcium Level 7.5 MG/DL 7.0 MG/DL Sodium Level 142 MEQ/L 143 MEQ/L Potassium Level 3.5 MEQ/L 3.1 MEQ/L Chloride Level 108 MEQ/L 111 MEQ/L Carbon Dioxide Level 27.2 MEQ/L 25.1 MEQ/L Anion Gap 7 MEQ/L 7 MEQ/L Estimat Glomerular Filtration Rate 56 ML/MIN 81 ML/MIN Thyroid Stimulating Hormone 3rd Gen 89.800 uIU/ML Random Cortisol 17.2 MCG/DL Total Protein 4.4 GM/DL Phosphorus Level 2.3 MG/DL Magnesium Level 1.8 MG/DL Protein Corrected Calcium 8.5 MG/DL Microbiology Date/Time Source Procedure Growth Status 10/02/17 12:00 Blood Other Aerobic Blood Culture - Preliminary NO GROWTH IN 2 DAYS Resulted 10/02/17 12:00 Blood Other Anaerobic Blood Culture - Preliminary NO GROWTH IN 2 DAYS Resulted 10/02/17 14:00 Stool Stool Stool Occult Blood (ALVAR[facility]O) - Final HEMOCCULT NEGATIVE Complete Imaging Last Impressions Chest X-Ray 10/01/17 1357 Signed Impressions: Service Date/Time: Sunday, October 01, 2017 14:03 - CONCLUSION: No pneumothorax status post placement of left subclavian central line which has its tip in the superior vena cava. Discoid atelectasis within the left midlung field. Desmond Jaimes MD CT Angiography 10/01/17 1251 Signed Impressions: Service Date/Time: Sunday, October 01, 2017 14:19 - CONCLUSION: 1. No evidence of pulmonary embolism. 2. Focal infiltrate within the left upper lobe posteriorly consistent with possible pneumonia. 3. Scattered atelectatic changes bilaterally. 4. Stable aneurysmal dilatation of the ascending thoracic aorta measuring 4.7 cm in greatest dimension. 5. Stable cardiomegaly and coronary artery calcifications. 6. Minimal posterior pleural thickening bilaterally. Desmond Jaimes MD Abdomen/Pelvis CT 10/01/17 1245 Signed Impressions: Service Date/Time: Sunday, October 01, 2017 14:19 - CONCLUSION: Minimal bowel wall thickening descending colon it could be an early mild colitis. No other etiology for the abdominal pain is evident There is no evidence for significant congestive failure. Inferior vena cava is patent. Darrell Carter MD FACR Physical Exam GENERAL: This is a well-nourished, well-developed patient, in no apparent distress. SKIN: No rashes, ecchymoses or lesions. Cool and dry. HEAD: Atraumatic. Normocephalic. No temporal or scalp tenderness. EYES: Pupils equal round and reactive. Extraocular motions intact. No scleral icterus. No injection or drainage. ENT: Nose without bleeding, purulent drainage or septal hematoma. Throat without erythema, tonsillar hypertrophy or exudate. Uvula midline. Airway patent. NECK: Trachea midline. Supple, nontender, no meningeal signs. CARDIOVASCULAR: Regular rate and rhythm without murmurs, gallops, or rubs. RESPIRATORY: Clear to auscultation. Breath sounds equal bilaterally. No wheezes , rales, or rhonchi. GASTROINTESTINAL: Abdomen soft, diffuse tenderness. MUSCULOSKELETAL: Extremities without clubbing, cyanosis, or edema. No joint tenderness, effusion, or edema noted. No calf tenderness. Negative Homans sign bilaterally. NEUROLOGICAL: Awake and alert. Cranial nerves II through XII intact. Motor and sensory grossly within normal limits. Five out of 5 muscle strength in all muscle groups. Normal speech. Psych cooperative IV line sites with no e/o infection. Assessment & Plan Remarks Severe Sepsis present on admission. Cdiff Colitis was on oral vanco prior to admission. No need to retest. High grade leucocytosis. Anemia: no acute blood loss. GI on board. Hemonc on board. Left upper lobe infiltrate could be of infectious or non infectious etiology ( leukemic infiltrates). AML s.p Dacogen on 09/26/17. Immune compromised host. PICC in place for chemotherapy. Recs: Continue oral vanco (tentative stop date in EMR: 10/16/17) Please ensure patient has carafate on discharge but it needs to be spaced out from Vanco oral as it can bind the Vanco and decrease effective dose. DC central line. Ok to keep PICC line if needed by Oncology for Chemotherapy. Follow cultures Follow clinically. Discussed with RN. Discussed with Dr. Elmore: Will sign off please call back if any change in clinical condition or questions. Kassidy Morfin MD Oct 05, 2017 09:11
[2017-10-05] MEDS: [UNRECOGNIZED DRUG - REMARK] PO SCH ×4 (10:49→20:50)
[2017-10-05] MEDS: LORazepam 0.5 MG TAB PO PRN (12:19)
--- NOTE | 2017-10-05 13:11 | PD.ONC.PN ---
Subjective Subjective Remarks Afebrile overnight. Patient not eating. She states she drank a bit of ensure yesterday and vomited it all back up. She tells me, "I know this is the end. It's okay." She tells me, "I am ready to meet Him" and points to the ceiling. I ask if she has discussed this with her children. She states she has. Objective Data Date Time Temp Pulse Resp B/P (MAP) Pulse Ox O2 Delivery O2 Flow Rate FiO2 10/05/17 10:00 85 10/05/17 10:00 85 32 10/05/17 09:00 82 12 10/05/17 09:00 82 10/05/17 08:46 84 10/05/17 08:46 84 14 119/56 (77) 91 10/05/17 08:00 98.6 76 13 85/48 (60) 10/05/17 08:00 76 10/05/17 06:00 80 10/05/17 04:00 99.1 84 22 113/67 (82) 98 10/05/17 04:00 78 10/05/17 02:00 120 10/05/17 00:00 100.1 115 15 85/53 (64) 97 10/05/17 00:00 115 10/04/17 22:00 119 10/04/17 20:00 98.7 128 22 132/79 (96) 100 10/04/17 20:00 128 10/04/17 18:00 120 10/04/17 16:00 120 10/04/17 16:00 98.7 115 16 94/56 (69) 10/04/17 15:00 115 10/04/17 15:00 116 10/04/17 14:00 120 10/05/17 10/05/17 10/05/17 06:59 14:59 22:59 Intake Total 220 ml 350 ml Balance 220 ml 350 ml Result Diagram: 10/05/17 0415 10/05/17 0415 Laboratory Results Laboratory Tests Test 10/04/17 18:30 10/04/17 21:45 10/05/17 04:15 White Blood Count 10.3 TH/MM3 10.8 TH/MM3 Red Blood Count 3.34 MIL/MM3 3.20 MIL/MM3 Hemoglobin 10.4 GM/DL 9.9 GM/DL Hematocrit 30.8 % 29.6 % Mean Corpuscular Volume 92.3 FL 92.4 FL Mean Corpuscular Hemoglobin 31.2 PG 30.9 PG Mean Corpuscular Hemoglobin Concent 33.8 % 33.4 % Red Cell Distribution Width 19.1 % 19.2 % Platelet Count 39 TH/MM3 47 TH/MM3 Mean Platelet Volume 10.5 FL 12.0 FL CBC Comment AUTO DIFF AUTO DIFF Differential Total Cells Counted 100 100 Neutrophils % (Manual) 2 % 8 % Lymphocytes % 26 % 19 % Monocytes % 5 % 4 % Neutrophils # (Manual) 0.2 TH/MM3 1.2 TH/MM3 Differential Comment FINAL DIFF MANUAL FINAL DIFF MANUAL Blastocytes 67 % 66 % Platelet Estimate LOW LOW Platelet Morphology Comment ENLARGED NORMAL Tear Drop Cells 1+ 1+ Ovalocytes 1+ 1+ [place] Cells 1+ Blood Urea Nitrogen 3 MG/DL 3 MG/DL Creatinine 0.99 MG/DL 0.72 MG/DL Random Glucose 91 MG/DL 89 MG/DL Calcium Level 7.5 MG/DL 7.0 MG/DL Sodium Level 142 MEQ/L 143 MEQ/L Potassium Level 3.5 MEQ/L 3.1 MEQ/L Chloride Level 108 MEQ/L 111 MEQ/L Carbon Dioxide Level 27.2 MEQ/L 25.1 MEQ/L Anion Gap 7 MEQ/L 7 MEQ/L Estimat Glomerular Filtration Rate 56 ML/MIN 81 ML/MIN Thyroid Stimulating Hormone 3rd Gen 89.800 uIU/ML Random Cortisol 17.2 MCG/DL Metamyelocytes 1 % Myelocytes 2 % Nucleated Red Blood Cells 2 /100 WBC Total Protein 4.4 GM/DL Phosphorus Level 2.3 MG/DL Magnesium Level 1.8 MG/DL Protein Corrected Calcium 8.5 MG/DL Culture Results Microbiology Date/Time Source Procedure Growth Status 10/02/17 14:00 Stool Stool Stool Occult Blood ([facility]O) - Final HEMOCCULT NEGATIVE Complete Administered Medications Medications (Trade) Dose Ordered Sig/Tylor Route PRN Reason Start Time Stop Time Status Last Admin Dose Admin Sodium Chloride (NS Flush) 2 ml UNSCH PRN IV FLUSH FLUSH AFTER USING IV ACCESS 10/01/17 12:45 10/03/17 08:27 Albuterol/ Ipratropium (Duoneb Neb) 1 ampule Q4HR NEB INH 10/01/17 16:00 10/01/17 15:34 Chlorhexidine Gluconate (Chlorhexidine 2% Cloth) 3 pack Taper DAILY@04 TOP 10/02/17 04:00 09/28/18 03:59 10/05/17 04:00 Potassium Chloride 100 ml @ 25 mls/hr UNSCH PRN IV For Potassium 3.3 - 3.5 mEq/L 10/01/17 15:00 10/02/17 15:36 Potassium Chloride 100 ml @ 50 mls/hr Q2H PRN IV For Potassium 3.3 - 3.5 mEq/L 10/01/17 15:00 10/02/17 04:00 Magnesium Sulfate 2 gm/Sodium Chloride 100 ml @ 50 mls/hr UNSCH PRN IV For Magnesium 1.2 - 1.6 mg/dL 10/01/17 15:00 10/03/17 11:31 Sodium Phosphate 30 mmol/Sodium Chloride 250 ml @ 42 mls/hr UNSCH PRN IV For Phosphorus < 2.5 mg/dL 10/01/17 15:00 10/03/17 13:13 Potassium Phosphate 30 mmol/ Sodium Chloride 260 ml @ 42 mls/hr UNSCH PRN IV SEE LABEL COMMENTS 10/01/17 15:00 10/05/17 06:51 Dextrose (D50w (Vial) Inj) 50 ml UNSCH PRN IV PUSH HYPOGLYCEMIA-SEE COMMENTS 10/01/17 15:00 10/04/17 20:25 Morphine Sulfate (Morphine Inj) 2 mg Q3H PRN IV PUSH pain 6-10 10/01/17 21:30 10/05/17 05:00 Ondansetron HCl (Zofran Inj) 4 mg Q6HR IV PUSH 10/02/17 12:00 10/05/17 11:29 Metoprolol Tartrate (Lopressor) 25 mg Q12HR PO 10/02/17 14:45 10/04/17 20:24 Dextrose/Sodium Chloride 1,000 ml @ 50 mls/hr Q20H IV 10/02/17 16:00 10/05/17 04:08 Sucralfate (Carafate Liq) 1 gm ACHS PO 10/03/17 12:00 10/05/17 08:44 Pantoprazole Sodium (Protonix Inj) 40 mg Q12HR IV PUSH 10/03/17 11:30 10/05/17 08:44 Lorazepam (Ativan) 0.5 mg Q8H PRN PO ANXIETY 10/03/17 16:00 10/05/17 12:19 Nystatin (Mycostatin Liq) 5 ml QID SWISH-SWAL 10/04/17 18:00 10/05/17 08:43 Metoclopramide HCl (Reglan Inj) 10 mg Q8HR IM 10/04/17 22:00 10/05/17 04:59 Rifaximin (Xifaxan) 550 mg BID PO 10/04/17 21:00 10/05/17 08:43 Metronidazole 100 ml @ 100 mls/hr Q8H IV 10/04/17 16:00 10/05/17 08:43 Trimethobenzamide HCl (Tigan Inj) 200 mg Q8H PRN IM SEVERE NAUSEA 10/05/17 08:45 10/05/17 09:20 Non-Formulary Medication VANCOMYCIN STOCK SOLUT... QID PO 10/05/17 09:05 10/05/17 10:49 Objective Remarks GENERAL: Middle aged female, lying in bed, appears fatigued and uncomfortable. tells me she is nauseated. SKIN: Warm and dry. HEAD: Normocephalic. EYES: No injection or drainage. NECK: Supple, trachea midline. CARDIOVASCULAR: +S1/S2, rate controlled at ~80bpm at the time of my exam. RESPIRATORY: anterior atkins with scattered rhonchi. GASTROINTESTINAL: Abdomen soft, non-tender, nondistended. EXTREMITIES: No cyanosis NEUROLOGICAL: awake and alert, normal speech. moving extremities. Assessment/Plan Assessment 67y/o female with AML, admitted with intractable nausea/vomiting. HPI (brought forward from initial consult for continuity of care): status post four cycles of Dacogen. She was initiated on treatment in February of 2017. has received four cycles thus far with the most recent cycle completed 7 prior to current admission. She presented to hospital three days after her most recent discharge. She was admitted to the hospital at that time with C-diff colitis. The patient reports symptoms of abdominal pain, nausea, inability tolerate oral intake and generalized weakness and fatigue. She was unable to care for herself at home even with the help of her daughter and was brought into [place] ER last night. The patient was noted to be tachycardiac and hypotensive. She was assessed to have severe sepsis likely secondary to C-diff colitis and was admitted to the hospital for IV fluid hydration and antibiotic therapy. Plan 1. AML: s/p C4 Dacogen one week prior to current admission. monitor counts, transfuse as needed. 2. Nausea: I concur with the association between anxiety and nausea. patient' s nausea seemed to worsen when we discussed the state of her disease. It also seems to improve with ativan. still not tolerating any type of diet. on scheduled zofran, with PRN compazine and phenergan and ativan. 3. C. difficile colitis related sepsis: on IV Flagyl + PO Vanco 4. A. fib with RVR: currently rate controlled. cannot anticoagulate d/t thrombocytopenia 5. I had a long discussion with the patient ==spent greater than 30 minutes at the bedside== patient has made several statements about this being "the end." She states she doesn't want a bunch of people coming to see her anymore. States she just wants to feel better. She is tired of being in and out of the hospital. She has had a very difficult past several months with multiple hospitalizations d/t nausea, etc. I gently explored with her that I was hearing from her, that her goals of care may be more in line with comfort base care. I discussed hospice with her but she stated she did not want hospice as soon as she heard the word. Upon further questioning it seems she associates hospice with a particular rehab center. There may be a cultural component to this as well. I discussed transitioning her to a more comfortable area with comfort measures as the goal. She said she might be agreeable to that but did not want hospice. I asked if she would be willing to meet with someone from the palliative care team to help desk administrator in her comfort. She was agreeable to that so I introduced her to ANGEL Garcia with palliative care. Lidia Tracey Oct 05, 2017 13:11
--- NOTE | 2017-10-05 13:36 | HHI.GIFU ---
Subjective Remarks Pt with continued nausea and dry heaves. States unable to tolerate anything by mouth, including liquids. Continued abdominal pain, unable to localize. Objective Vitals I&O Vital Signs Date Time Temp Pulse Resp B/P (MAP) Pulse Ox O2 Delivery O2 Flow Rate FiO2 10/05/17 10:00 85 10/05/17 10:00 85 32 10/05/17 09:00 82 12 10/05/17 09:00 82 10/05/17 08:46 84 10/05/17 08:46 84 14 119/56 (77) 91 10/05/17 08:00 98.6 76 13 85/48 (60) 10/05/17 08:00 76 10/05/17 06:00 80 10/05/17 04:00 99.1 84 22 113/67 (82) 98 10/05/17 04:00 78 10/05/17 02:00 120 10/05/17 00:00 100.1 115 15 85/53 (64) 97 10/05/17 00:00 115 10/04/17 22:00 119 10/04/17 20:00 98.7 128 22 132/79 (96) 100 10/04/17 20:00 128 10/04/17 18:00 120 10/04/17 16:00 120 10/04/17 16:00 98.7 115 16 94/56 (69) 10/04/17 15:00 115 10/04/17 15:00 116 10/04/17 14:00 120 I/O 10/04/17 10/04/17 10/04/17 10/05/17 10/05/17 10/05/17 07:00 15:00 23:00 07:00 15:00 23:00 Intake Total 720 ml 1200 ml 220 ml 350 ml Output Total 250 ml Balance 470 ml 1200 ml 220 ml 350 ml Intake Oral 200 ml 500 ml 120 ml IV Total 520 ml 700 ml 100 ml 350 ml Output Urine Total 250 ml # Voids 4 3 # Bowel Movements 2 2 Laboratory Laboratory Tests Test 10/04/17 18:30 10/04/17 21:45 10/05/17 04:15 White Blood Count 10.3 10.8 Red Blood Count 3.34 3.20 Hemoglobin 10.4 9.9 Hematocrit 30.8 29.6 Mean Corpuscular Volume 92.3 92.4 Mean Corpuscular Hemoglobin 31.2 30.9 Mean Corpuscular Hemoglobin Concent 33.8 33.4 Red Cell Distribution Width 19.1 19.2 Platelet Count 39 47 Mean Platelet Volume 10.5 12.0 CBC Comment AUTO DIFF AUTO DIFF Differential Total Cells Counted 100 100 Neutrophils % (Manual) 2 8 Lymphocytes % 26 19 Monocytes % 5 4 Neutrophils # (Manual) 0.2 1.2 Differential Comment FINAL DIFF MANUAL FINAL DIFF MANUAL Blastocytes 67 66 Platelet Estimate LOW LOW Platelet Morphology Comment ENLARGED NORMAL Tear Drop Cells 1+ 1+ Ovalocytes 1+ 1+ [place] Cells 1+ Blood Urea Nitrogen 3 3 Creatinine 0.99 0.72 Random Glucose 91 89 Calcium Level 7.5 7.0 Sodium Level 142 143 Potassium Level 3.5 3.1 Chloride Level 108 111 Carbon Dioxide Level 27.2 25.1 Anion Gap 7 7 Estimat Glomerular Filtration Rate 56 81 Thyroid Stimulating Hormone 3rd Gen 89.800 Random Cortisol 17.2 Metamyelocytes 1 Myelocytes 2 Nucleated Red Blood Cells 2 Total Protein 4.4 Phosphorus Level 2.3 Magnesium Level 1.8 Protein Corrected Calcium 8.5 Date/Time Source Procedure Growth Status 10/02/17 12:00 Blood Other Aerobic Blood Culture - Preliminary NO GROWTH IN 3 DAYS Resulted 10/02/17 12:00 Blood Other Anaerobic Blood Culture - Preliminary NO GROWTH IN 3 DAYS Resulted 10/02/17 14:00 Stool Stool Stool Occult Blood ([facility]) - Final HEMOCCULT NEGATIVE Complete 10/01/17 15:14 Urine Clean Catch Urine Culture - Final 50-100,000 CFU/ML MIXED GRAM POSITIVE... 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 Findings of mild proximal colitis. Raoul Denton MD Chest X-Ray 10/01/17 1357 Signed Impressions: Service Date/Time: Sunday, October 01, 2017 14:03 - CONCLUSION: No pneumothorax status post placement of left subclavian central line which has its tip in the superior vena cava. Discoid atelectasis within the left midlung field. Desmond Jaimes MD CT Angiography 10/01/17 1251 Signed Impressions: Service Date/Time: Sunday, October 01, 2017 14:19 - CONCLUSION: 1. No evidence of pulmonary embolism. 2. Focal infiltrate within the left upper lobe posteriorly consistent with possible pneumonia. 3. Scattered atelectatic changes bilaterally. 4. Stable aneurysmal dilatation of the ascending thoracic aorta measuring 4.7 cm in greatest dimension. 5. Stable cardiomegaly and coronary artery calcifications. 6. Minimal posterior pleural thickening bilaterally. Desmond Jaimes MD Physical Exam HEENT: Normocephalic; atraumatic CHEST: Even/unlabored CARDIAC: RRR ABDOMEN: Distended, soft, nontender, bowel sounds active SKIN: Normal; no rash; no jaundice. HEEL GUMMER: No focal deficits; alert and oriented times three. Assessment and Plan Plan ASSESSMENT - anemia - hgb was 6.6 on admission, down from 7.8 on 09/28. no obvious source bleeding, had chemo 09/26/17 and per oncology note expected to have worsening pancytopenia in the coming weeks. Had EGD that found mild esophagitis, severe gastritis, no bx done d/t low PLT. last colonoscopy [address] Calderón found "inflammation." CT shows poss mild colitis. + c diff on PO vanc do not think she could tolerate bowel prep at this time. 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 blood transfusing. - epigastric pain - EGD as above. esophagitis, gastritis couldn't get bx. will check h pylori - n/v - persistent, 2/2 chemo? EGD as above. - thrombocytopenia - PLT 57 this admission - leukocytosis - ?leukemia. + c diff on PO vanc, denies diarrhea. afebrile. ID consulted. - AML (10/02) Pt with some nausea this morning, denies emesis. Reports small BM today, stool being sent for H. Pylori antigen and Hemoccult. No obvious GIB at this time. H/H currently 10.2/29.3 S/P 2 U PRBCs yesterday. She has been seen by oncology who addressed possible hospitce and pt reports she is not ready for this transition. She remains on oral Vanco and IV Flagyl. Remains on clear liquids, poor appetite. Per oncology, nutrition should be encourage for pt to gain strength. CT abdomen W pelvis W IV contrast (10/01) noted --> Minimal bowel wall thickening descending colon it could be an early mild colitis. No other etiology for abdominal pain is evident. (10/03/17) denies abd pain, diarrhea. has some nausea no vomiting. CTA 10/03/ showed mild colitis, mild ostial celiac stenosis, moderate SMA stenosis, moderate ostial RUBY stenosis. + c diff, on abx. stool heme negative. HH mild decrease no bleeding. (10/04/17) no abd pain. + liquid stool today. nauseous, is tolerating Ensure. HH stable (10/05) Pt with continued nausea and dry heaves. Tigan started today. Continued Reglan and Zofran PRN. Labs reveal elevated TSH-89.8, pt being started on Levothyroxine tomorrow. Continued abdominal pain, she is unable to localize to specific area. Remains with some diarrhea , but seems to be improving. Vanco DCd yesterday, now on IV Flagyl and Rifaximin. Stool H. Pylori still pending. Anemia- drop in H/H currently 9.9/29.7, last transfused Oct 01. Hemoccult negative on Oct 02. Random serum cortisol level 17.2 at 9:45 at night, slight increase possibly related to thyroid dysfunction. PLAN - Continue antiemetics - Continue IV Flagyl - Continue Rifaximin - Thyroid replacement - Clear liquid diet as tolerated - Monitor H/H - H Pylori stool antigen pending - Further recommendations to follow based on clinical course Pt has been seen and examined by myself and Dr. Hernandez and this note is written on her behalf Pt has been seen and examined by myself and Dr. Hernandez and this note is written on her behalf Tila Bah Oct 05, 2017 13:36
--- NOTE | 2017-10-05 14:03 | RADRPT ---
EXAM DATE/TIME: 10/05/2017 13:32 [facility] COMPARISON: CHEST SINGLE AP, October 01, 2017, 14:03. INDICATIONS : Central line placement. MEDICAL HISTORY : Cardiovascular disease. Hypertension Chronic obstructive pulmonary disease. C-diff SURGICAL HISTORY : Appendectomy. ENCOUNTER: Initial ACUITY: 4 - 6 days PAIN SCORE: 0/10 LOCATION: Bilateral chest FINDINGS: Central line and PICC line in good position. There is no pneumothorax. Decreasing parenchymal garcia es right base compared to 10/01/17. CONCLUSION: Support apparatus good position, no pneumothorax. Darrell Carter MD FACR on October 05, 2017 at 14:00 Board Certified Radiologist. This report was verified electronically.
[2017-10-05] MEDS: HALOPERIDOL LACTATE 5 MG/ML AMP IV PUSH PRN ×2 (15:31→20:52)
--- NOTE | 2017-10-05 17:19 | PD.CONS ---
Consult Service Palliative Care Consult Requested By ROSA Howard . Primary Care Physician Unknown Reason for Consultation a. To assist with evaluation and management of symptoms including: Nausea, weakness, diarrhea b. To assist medical decision maker(s) with: better understanding of current medical conditions; weighing benefits/burdens of medical treatment options; making medical treatment decisions. HPI History of Present Illness Mrs. Sandi England is a very pleasant [place] female who presented to the emergency room 09/19 with complaints of nausea, vomiting and abdominal pain for 24 hours. 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 Yarbrough. She states that since starting chemotherapy she has had significant nausea and vomiting impacting her ability to eat. She has also been seen in our [facility] for similar symptoms. Dacogen was initiated in hospital by Dr. Yarbrough. She was discharged home 09/28 and readmitted 10/01 for recurrent nausea and abdominal pain, found to be positive for C. difficile colitis. Shortly after her initial examination she became significantly hypotensive and hypoxic requiring fluid resuscitation and blood transfusion. She was admitted to the intensive care unit. GI was consulted and stool was checked for occult blood, and found to be negative, H. pylori antigen and placed on a clear liquid diet. Oral vancomycin was ordered. Infectious disease was consulted noting severe sepsis present on admission with a previous history of C. difficile colitis on oral vancomycin prior to admission. Oncology was consulted. She had received Dacogen at her prior admission. It was Dr. Yarbrough's opinion that she was a poor candidate for aggressive disease directed cytotoxic chemotherapy given her significant comorbidities to include COPD and A. fib as well as poor performance status. She had significant difficulty tolerating the Dacogen and he felt that more toxic therapy would severe lead degrade her quality of life while providing no significant benefit. He did review the option of palliative care and hospice with her, which she declined. She does not want her children involved in her diagnosis and prognosis. He did explain to her clearly that all therapeutic interventions are palliative and not curative. ED course: * Laboratory: WBC 21.8 hemoglobin 6.6, hematocrit 19.7, platelets 57, blastocytes 80%, sodium 139, potassium 3.3, BUN 7, creatinine 0.74, lipase 382, urinalysis indicated need for culture. * Radiology: CT scan of the abdomen and pelvis dated 09/19 shows no acute findings, mild sigmoid diverticula, stable size 3.1 cm AAA. Spleen with a normal size, homogenous liver without lesions dilation of the biliary tree or calcified gallstones. Bowel and mesentery indicate no evidence of dilated bowel loops of the large bowel, oral contrast passes CT angiography showed a focal infiltrate within the left upper lobe consistent with possible pneumonia, no evidence of pulmonary embolism. CT of the abdomen and pelvis showed early colitis in the descending colon. She is evaluated in ICU. She is having frequent dry heaves. She is mildly agitated and remains slightly anxious despite recent administration of Ativan. Due to her distressing symptoms, she is unable to engage in conversation. Much of the history was taken from the chart. . Function/Cognitive Trajectory She has become weaker over her course of chemotherapy. She states she is generally sedentary and cannot do much due to her uncontrolled nausea. . Review of Systems ROS Limitations: Clinical Condition Constitutional: COMPLAINS OF: Fatigue, Chills, Change in appetite Endocrine: DENIES: Abnorml menstrual pattern, Heat/cold intolerance, Polydipsia , Polyuria, Polyphagia Eyes: DENIES: Blurred vision, Diplopia, Eye inflammation, Eye pain, Vision loss , Photosensitivity, Double Vision, Blind spots Ears, nose, mouth, throat: DENIES: Tinnitus, Hearing loss, Vertigo, Nasal discharge, Oral lesions, Throat pain, Hoarseness, Ear Pain, Running Nose, Epistaxis, Sinus Pain, Toothache, Odynophagia Respiratory: DENIES: Apneas, Cough, Snoring, Wheezing, Hemoptysis, Sputum production, Shortness of breath Cardiovascular: COMPLAINS OF: Dyspnea on Exertion Gastrointestinal: COMPLAINS OF: Diarrhea, Nausea, Vomiting Genitourinary: DENIES: Abnormal vaginal bleeding, Dysmenorrhea, Dyspareunia, Sexual dysfunction, Urinary frequency, Urinary incontinence, Urgency, Hematuria , Dysuria, Nocturia, Vaginal discharge, Hesitancy, Dribbling, Decreased stream Musculoskeletal: DENIES: Joint pain, Muscle aches, Stiffness, Joint Swelling, Back pain, Neck pain, Decreased range of motion Integumentary: DENIES: Abnormal pigmentation, Pruritus, Rash, Nail changes, Breast masses, Breast skin changes, Nipple discharge, Nodules, Tumors, Excessive dryness, Non-healing sores Hematologic/Lymphatics: DENIES: Bruising, Lymphadenopathy, Prolonged bleed w/ proced, History of transfusions Immunologic/Allergic: DENIES: Eczema, Urticaria Neurologic: COMPLAINS OF: Seizures Psychiatric: COMPLAINS OF: Anxiety Past Family Social History Coded Allergies: penicillin G (Verified Allergy, Severe, 09/19/17) aspirin (Verified Allergy, Unknown, "MAKES MY STOMACH HURT A BIT", 09/19/17 ) Past Medical History Newly diagnosed acute myeloid leukemia Angioma Multiple brain aneurysm COPD Chronic kidney disease Hypertension Hyperlipidemia Hypothyroidism TIA Anxiety Partial seizures . Past Surgical History Appendectomy Lumbar spinal surgery Varicose veins in the left lower extremity removed . Reported Medications Reported Meds & Active Scripts Active Pantoprazole (Pantoprazole Sodium) 40 Mg Tab 40 Mg PO DAILY Dronabinol 5 Mg Cap 5 Mg PO BID@11,16 Sucralfate Liq (Sucralfate) 1 Gram/10 Ml Leida 1 Gm PO ACHS 30 Days Vancomycin Inj (Vancomycin HCl) 500 Mg Inj 125 Mg PO QID 6 Days to be used orally 500 mg po qid for 6 days Reported Atorvastatin (Atorvastatin Calcium) 40 Mg Tab 40 Mg PO HS Metoprolol Tartrate 25 Mg Tab 25 Mg PO BID . Current Medications Medications (Trade) Dose Ordered Sig/Tylor Route Start Time Stop Time Status Last Admin (NS Flush) 2 ml UNSCH PRN IV FLUSH 10/01/17 12:45 10/03/17 08:27 (Duoneb Neb) 1 ampule Q4HR NEB INH 10/01/17 16:00 10/01/17 15:34 (Duoneb Neb) 1 ampule Q2HR NEB PRN INH 10/01/17 14:00 Miscellaneous Information 1 Q361D XX 10/01/17 14:00 (Chlorhexidine 2% Cloth) 3 pack Taper DAILY@04 TOP 10/02/17 04:00 09/28/18 03:59 10/05/17 04:00 (Chlorhexidine 2% Cloth) 3 pack UNSCH PRN TOP 10/01/17 14:00 Potassium Chloride 100 ml @ 50 mls/hr Q2H PRN IV 10/01/17 15:00 Potassium Chloride 100 ml @ 50 mls/hr Q2H PRN IV 10/01/17 15:00 (K-Lyte Cl Eff) 50 meq UNSCH PRN PO 10/01/17 15:00 Potassium Chloride 100 ml @ 25 mls/hr UNSCH PRN IV 10/01/17 15:00 10/02/17 15:36 Potassium Chloride 100 ml @ 50 mls/hr Q2H PRN IV 10/01/17 15:00 10/02/17 04:00 Magnesium Sulfate 4 gm/Sodium Chloride 100 ml @ 50 mls/hr UNSCH PRN IV 10/01/17 15:00 (Mag-Ox) 800 mg UNSCH PRN PO 10/01/17 15:00 Magnesium Sulfate 2 gm/Sodium Chloride 100 ml @ 50 mls/hr UNSCH PRN IV 10/01/17 15:00 10/03/17 11:31 (K-Phos) 2,000 mg Q4H PRN PO 10/01/17 15:00 Sodium Phosphate 30 mmol/Sodium Chloride 250 ml @ 42 mls/hr UNSCH PRN IV 10/01/17 15:00 10/03/17 13:13 (K-Phos) 2,000 mg UNSCH PRN PO/TUBE 10/01/17 15:00 Potassium Phosphate 30 mmol/ Sodium Chloride 260 ml @ 42 mls/hr UNSCH PRN IV 10/01/17 15:00 10/05/17 06:51 (D50w (Vial) Inj) 50 ml UNSCH PRN IV PUSH 10/01/17 15:00 10/04/17 20:25 (Glucagon Inj) 1 mg UNSCH PRN OTHER 10/01/17 15:00 (NovoLIN R SUPPLEMENTAL SCALE) 1 Q6H SQ 10/01/17 15:00 (Morphine Inj) 2 mg Q3H PRN IV PUSH 10/01/17 21:30 10/05/17 14:04 (Tylenol) 650 mg Q4H PRN PO 10/01/17 21:30 (Zofran Inj) 4 mg Q6HR IV PUSH 10/02/17 12:00 10/05/17 11:29 (Lopressor) 25 mg Q12HR PO 10/02/17 14:45 10/04/17 20:24 Dextrose/Sodium Chloride 1,000 ml @ 50 mls/hr Q20H IV 10/02/17 16:00 10/05/17 04:08 (Carafate Liq) 1 gm ACHS PO 10/03/17 12:00 10/05/17 08:44 (Protonix Inj) 40 mg Q12HR IV PUSH 10/03/17 11:30 10/05/17 08:44 (Ativan) 0.5 mg Q8H PRN PO 10/03/17 16:00 10/05/17 12:19 Diltiazem HCl 125 mg/Sodium Chloride 125 ml @ 5 mls/hr TITRATE PRN IV 10/04/17 08:30 (Mycostatin Liq) 5 ml QID SWISH-SWAL 10/04/17 18:00 10/05/17 08:43 (Reglan Inj) 10 mg Q8HR IM 10/04/17 22:00 10/05/17 14:04 (Xifaxan) 550 mg BID PO 10/04/17 21:00 10/05/17 08:43 Metronidazole 100 ml @ 100 mls/hr Q8H IV 10/04/17 16:00 10/05/17 08:43 (Tigan Inj) 200 mg Q8H PRN IM 10/05/17 08:45 10/05/17 09:20 Non-Formulary Medication VANCOMYCIN STOCK SOLUT... QID PO 10/05/17 09:05 10/05/17 10:49 (Synthroid) 25 mcg DAILY@0600 PO 10/06/17 06:00 (Haldol Inj) 0.5 mg Q6HR PRN IV PUSH 10/05/17 14:15 10/05/17 15:31 Family History Both parents with hypertension and coronary artery disease. Patient has 2 adult children who are alive and well. Substance Use Tobacco:Former smoker. Quit 4 years ago. Alcohol: Socially. Prescription med abuse: Denies. Illicits: Denies. . Psychosocial History Patient is originally from [place]. Moved to [place] 26 years ago. She is , has 2 adult children and 3 grandchildren. Residing independently prior to this hospitalization. 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 Working at [employer] when in [place], retired 5 years ago. . Spiritual/Cultural Factors Yarsani biju Living Will: Copy in medical record Health Care Surrogate: Copy in medical record Durable Power of Pad Tufter: Never completed Date completed: 03/30/17 Health Care Surrogate(s): HCS/son Sarthak Miguel Alternate/daughter Jerri Miguel . . Documented care wishes: Living will on chart. . Today's verbally stated goals: She wants her nausea controlled. . Family/friends goals: No family at bedside. . Ethical and Legal Issues None noted. . Physical Exam Vital Signs Date Time Temp Pulse Resp B/P (MAP) Pulse Ox O2 Delivery O2 Flow Rate FiO2 10/05/17 10:00 85 10/05/17 10:00 85 32 10/05/17 09:00 82 12 10/05/17 09:00 82 10/05/17 08:46 84 10/05/17 08:46 84 14 119/56 (77) 91 10/05/17 08:00 98.6 76 13 85/48 (60) 10/05/17 08:00 76 10/05/17 06:00 80 10/05/17 04:00 99.1 84 22 113/67 (82) 98 10/05/17 04:00 78 10/05/17 02:00 120 10/05/17 00:00 100.1 115 15 85/53 (64) 97 10/05/17 00:00 115 10/04/17 22:00 119 10/04/17 20:00 98.7 128 22 132/79 (96) 100 10/04/17 20:00 128 10/04/17 18:00 120 10/04/17 16:00 120 10/04/17 16:00 98.7 115 16 94/56 (69) . 10/05/17 10/06/17 18:59 06:59 Intake Total 350 ml Balance 350 ml IV Total 350 ml Exam CONSTITUTIONAL/GENERAL: This is an adequately nourished patient, in no apparent distress. TUBES/LINES/DRAINS: LSC central line. Right upper arm PICC SKIN: No jaundice, rashes, or lesions. Ecchymoses on upper extremities. No wounds seen anteriorly. Skin temperature appropriate. Not diaphoretic. HEAD: Atraumatic. Normocephalic. EYES: Pupils equal and round and reactive. Extraocular motions intact. No scleral icterus. No injection or drainage. Fundi not examined. ENT: Hearing grossly normal. Nose without bleeding or purulent drainage. Throat without visible erythema, exudates, masses, or lesions. NECK: Trachea midline. Supple, nontender. No palpable thyroid enlargement or nodularity. CARDIOVASCULAR: Regular rate and rhythm without murmurs, gallops, or rubs. No JVD. Peripheral pulses symmetric. RESPIRATORY/CHEST: Symmetric, unlabored respirations. Clear to auscultation. Breath sounds equal bilaterally. No wheezes, rales, or rhonchi. GASTROINTESTINAL: Abdomen soft, non-tender, nondistended. No hepato-splenomegaly , or palpable masses. No guarding. Bowel sounds present. GENITOURINARY: Without palpable bladder distension. MUSCULOSKELETAL: Extremities without clubbing, cyanosis, or edema. No joint tenderness or effusion noted. No calf tenderness. No mottling or clubbing. LYMPHATICS: No palpable cervical or supraclavicular adenopathy. NEUROLOGICAL: Awake and alert. Motor and sensory grossly within normal limits. Follows commands. Cognitively sharp. Moves all extremities. PSYCHIATRIC: Anxious, distressed. . Diagnostic Tests Laboratory Laboratory Tests Test 10/03/17 05:00 10/04/17 18:30 10/04/17 21:45 10/05/17 04:15 White Blood Count 7.8 TH/MM3 (4.0-11.0) 10.3 TH/MM3 (4.0-11.0) 10.8 TH/MM3 (4.0-11.0) Red Blood Count 3.07 MIL/MM3 (4.00-5.30) 3.34 MIL/MM3 (4.00-5.30) 3.20 MIL/MM3 (4.00-5.30) Hemoglobin 9.7 GM/DL (11.6-15.3) 10.4 GM/DL (11.6-15.3) 9.9 GM/DL (11.6-15.3) Hematocrit 28.0 % (35.0-46.0) 30.8 % (35.0-46.0) 29.6 % (35.0-46.0) Mean Corpuscular Volume 91.2 FL (80.0-100.0) 92.3 FL (80.0-100.0) 92.4 FL (80.0-100.0) Mean Corpuscular Hemoglobin 31.6 PG (27.0-34.0) 31.2 PG (27.0-34.0) 30.9 PG (27.0-34.0) Mean Corpuscular Hemoglobin Concent 34.7 % (32.0-36.0) 33.8 % (32.0-36.0) 33.4 % (32.0-36.0) Red Cell Distribution Width 19.7 % (11.6-17.2) 19.1 % (11.6-17.2) 19.2 % (11.6-17.2) Platelet Count 28 TH/MM3 (150-450) 39 TH/MM3 (150-450) 47 TH/MM3 (150-450) Mean Platelet Volume 11.0 FL (7.0-11.0) 10.5 FL (7.0-11.0) 12.0 FL (7.0-11.0) CBC Comment AUTO DIFF AUTO DIFF AUTO DIFF Differential Total Cells Counted 100 100 100 Neutrophils % (Manual) 3 % (16-70) 2 % (16-70) 8 % (16-70) Lymphocytes % 25 % (9-44) 26 % (9-44) 19 % (9-44) Monocytes % 14 % (0-8) 5 % (0-8) 4 % (0-8) Neutrophils # (Manual) 0.4 TH/MM3 (1.8-7.7) 0.2 TH/MM3 (1.8-7.7) 1.2 TH/MM3 (1.8-7.7) Metamyelocytes 1 % (0-1) 1 % (0-1) Myelocytes 1 % (0-0) 2 % (0-0) Differential Comment FINAL DIFF MANUAL FINAL DIFF MANUAL FINAL DIFF MANUAL Blastocytes 56 % (0-0) 67 % (0-0) 66 % (0-0) Platelet Estimate LOW (NORMAL) LOW (NORMAL) LOW (NORMAL) Platelet Morphology Comment ENLARGED (NORMAL) ENLARGED (NORMAL) NORMAL (NORMAL) Basophilic Stippling FAINT (NORMAL) Tear Drop Cells 1+ (NORMAL) 1+ (NORMAL) 1+ (NORMAL) Blood Urea Nitrogen 4 MG/DL (7-18) 3 MG/DL (7-18) 3 MG/DL (7-18) Creatinine 0.68 MG/DL (0.50-1.00) 0.99 MG/DL (0.50-1.00) 0.72 MG/DL (0.50-1.00) Random Glucose 83 MG/DL (74-106) 91 MG/DL (74-106) 89 MG/DL (74-106) Total Protein 4.6 GM/DL (6.4-8.2) 4.4 GM/DL (6.4-8.2) Calcium Level 6.9 MG/DL (8.5-10.1) 7.5 MG/DL (8.5-10.1) 7.0 MG/DL (8.5-10.1) Phosphorus Level 2.4 MG/DL (2.5-4.9) 2.3 MG/DL (2.5-4.9) Magnesium Level 1.5 MG/DL (1.5-2.5) 1.8 MG/DL (1.5-2.5) Sodium Level 141 MEQ/L (136-145) 142 MEQ/L (136-145) 143 MEQ/L (136-145) Potassium Level 3.8 MEQ/L (3.5-5.1) 3.5 MEQ/L (3.5-5.1) 3.1 MEQ/L (3.5-5.1) Chloride Level 108 MEQ/L (98-107) 108 MEQ/L (98-107) 111 MEQ/L (98-107) Carbon Dioxide Level 26.8 MEQ/L (21.0-32.0) 27.2 MEQ/L (21.0-32.0) 25.1 MEQ/L (21.0-32.0) Anion Gap 6 MEQ/L (5-15) 7 MEQ/L (5-15) 7 MEQ/L (5-15) Estimat Glomerular Filtration Rate 86 ML/MIN (>89) 56 ML/MIN (>89) 81 ML/MIN (>89) Protein Corrected Calcium 8.2 MG/DL (8.5-10.1) 8.5 MG/DL (8.5-10.1) Ovalocytes 1+ (NORMAL) 1+ (NORMAL) Marshall Cells 1+ (NORMAL) Thyroid Stimulating Hormone 3rd Gen 89.800 uIU/ML (0.358-3.740) Random Cortisol 17.2 MCG/DL Nucleated Red Blood Cells 2 /100 WBC (0-0) Free Thyroxine 0.35 NG/DL (0.76-1.46) Result Diagram: 10/05/17 0415 10/05/17 0415 Microbiology Microbiology Date/Time Source Procedure Growth Status 10/02/17 12:00 Blood Other Aerobic Blood Culture - Preliminary NO GROWTH IN 3 DAYS Resulted 10/02/17 12:00 Blood Other Anaerobic Blood Culture - Preliminary NO GROWTH IN 3 DAYS Resulted 10/02/17 14:00 Stool Stool Stool Occult Blood (ALVARADO) - Final HEMOCCULT NEGATIVE Complete 10/01/17 15:14 Urine Clean Catch Urine Culture - Final 50-100,000 CFU/ML MIXED GRAM POSITIVE... Complete . Imaging Last Impressions Chest X-Ray 10/05/17 0000 Signed Impressions: Service Date/Time: Thursday, October 05, 2017 13:32 - CONCLUSION: Support apparatus good position, no pneumothorax. 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 Moderate ostial RUBY stenosis. Findings of mild proximal colitis. Raoul Denton MD CT Angiography 10/01/17 1251 Signed Impressions: Service Date/Time: Sunday, October 01, 2017 14:19 - CONCLUSION: 1. No evidence of pulmonary embolism. 2. Focal infiltrate within the left upper lobe posteriorly consistent with possible pneumonia. 3. Scattered atelectatic changes bilaterally. 4. Stable aneurysmal dilatation of the ascending thoracic aorta measuring 4.7 cm in greatest dimension. 5. Stable cardiomegaly and coronary artery calcifications. 6. Minimal posterior pleural thickening bilaterally. Desmond Jaimes MD . Patient/Family Conference Present at Family Conference: Spoke with patient at bedside. Reviewed palliative care focus and purpose, clinical findings, below listed items, psychosocial history, goals for quality of life. Her goals remain aggressive at this time. She is having difficulty focusing on the conversation due to her excessive nausea symptoms. Will review these items again at a later time. . Family Conference Time (mins): 50 (minutes) Family Conference Location: Bedside Issues Discussed: * Palliative care role, purpose, approach * Additional medical, psychosocial, and spiritual history * Patients general health, functional status, and cognitive changes in the months leading up to the current hospitalization * Patient/family understanding of the current medical problems * Patient/family understanding of prognosis * Patients goals of care as best understood from advance directives and/or conversations and/or values * Current medical treatment options and benefits/burdens of those options * Likely scenarios comparing ongoing aggressive care with a transition to comfort measures only * Questions answered to the best of my ability * Palliative care contact information provided Assessment and Plan Disease Oriented Problem List: (1) AML (acute myeloid leukemia) (2) Debility (3) Sepsis Symptom Scale: (1) Nausea 0-10 Scale: Unable to quantify (continuous nausea, spitting up frequently without significant emesis, in spite of multiple medications.) (2) Weakness 0-10 Scale: Unable to quantify (continued debility from poor performance status likely due to multiple comorbidities and side effects of chemotherapy.) (3) Diarrhea 0-10 Scale: Unable to quantify (recurrent C. difficile, having difficulty tolerating oral vancomycin due to nausea.) Pertinent Non-Medical Issues Psychosocial:Originally from [place]. , has 2 adult children. 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 Spiritual:Yarsani biju. Legal: Living will and designation of healthcare surrogate completed. Ethical issues impacting care:No ethical issues identified. . Important Contacts [facility]/son Sarthak Miguel daughter Jerri Miguel . . Prognosis Her prognosis is poor. She has been diagnosed with acute myeloid leukemia and per my discussion with oncology, even with treatment, her lifespan is likely to be less than a year. Without therapy, 3-6 months. 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 Without treatment her sepsis is likely to continue until hemodynamic compromise and possible . . Code Status: Full Code Plan PLAN: Legal decision maker: He is currently capacitated to make her own decisions. Goals: Continuing to pursue chemotherapy and full resuscitative treatment. CODE STATUS: FULL CODE SYMPTOMS: * Nausea: She states that nausea started right after she initiated chemotherapy , but she defers to her physician as to whether to continue chemotherapy. She has failed treatment with Tigan, Reglan, lorazepam, Protonix, Zofran, Carafate. She has been too nauseated to take her oral vancomycin for treatment of C. difficile. I discussed the possibility of using Haldol 0.5-1 mg IV 6 hours as needed for nausea with Dr. Elmore, her attending physician, and he agreed to add that to her regimen as all other treatments have failed. She has received 1 dose so far with minimal relief. She was receiving dronabinol 5 mg twice a day@11 AM and 1600. Would recommend resuming that. If continued dosing does not manage her symptoms, would recommend scopolamine patch. * Weakness: This is multi-factorial to include AML, chemotherapy and debility. She is unable to consume food or water due to her nausea which is contributing to her weakness. First goal being to control the nausea, medications are being adjusted as above. * Diarrhea: Stool culture was positive for C. difficile. She has been prescribed oral vancomycin but has been unable to take her dosing intermittently due to nausea. We'll continue to work with nausea control to assist in more consistent medication administration. SUMMARY This is a 67-year-old [place] female with a recent diagnosis of AML, now on Dacogen. She initiated treatment in February 2017 and has received 4 cycles with the most recent cycle completed 7 days prior to current admission. She was admitted with C. difficile colitis. Per ID notes her immunocompromise status is compromising her ability to overcome the infection in spite of antibiotics. Her admitting diagnosis was severe sepsis secondary to C. difficile colitis. She is now complaining of intractable nausea which persists in spite of multiple medications. She states the nausea began after she initiated the Dacogen and that her quality of life has been severely compromised by this. She is however unwilling to discontinue chemotherapy unless her doctor recommends it. We will continue to attempt to control the nausea to improve her quality of life while undergoing treatment. If she does decide to forego treatment, she would be hospice appropriate if goals were consistent. Palliative care will continue to follow the patient during hospital course as condition evolves, to assist patient/decision-maker with understanding of their medical conditions, weighing benefits/burdens of treatment options, for clarification of goals of treatment. Additionally will assist with any symptoms of palliative concern. . Time Spent Time Periods: 12:30-1:20 >50% Counseling/Coord of Care: Yes Thank you for the opportunity to participate in the care of Ms. Richard. Attestation To help prompt me to consider important information that might be impacting today's encounter and assessment, information from prior notes written by myself or my colleagues may have been "brought forward" into today's note. My signature on this note, however, is an attestation that I personally performed the exam, history, and/or decision-making noted today, and, unless otherwise indicated, the interactions with patient, family, and staff as well as the review of records all occurred today. I also attest that the listed assessment and stated plan reflect my best clinical judgment today based on the combination of historical information, prior notes, and today's exam/ interactions. When time spent is documented, it refers only to time spent today by the signer, or if indicated, combined time spent today by collaborating physician/nurse practitioner. . Veronica Grant Oct 05, 2017 5:16 pm
[2017-10-06] VITALS (12 sets, daily range): BP systolic 101–129; BP diastolic 62–73; PULSE 74–127; RESP 15–23; TEMP 98.1–99; O2SAT 90–95
[2017-10-06] MEDS: DEXT 5%-NACL 0.9% 1000 ML INJ 1,000 ML IV SCH ×2 (00:33→22:35)
[2017-10-06] MEDS: metroNIDAZOLE 500 MG INJ 100 ML IV SCH ×4 (00:33→22:28)
[2017-10-06] MEDS: ONDANSETRON HCL 4 MG/2 ML VIAL IV PUSH SCH ×5 (00:34→23:56)
[2017-10-06] MEDS: LORazepam 0.5 MG TAB PO PRN ×3 (00:51→21:19)
[2017-10-06] MEDS: MORPHINE SULFATE 2 MG/ML INJ IV PUSH PRN ×4 (00:51→15:53)
[2017-10-06] MEDS: INSULIN NovoLIN REGULAR SUPPLEMENTAL SCALE SQ SCH ×4 (03:00→21:00)
[2017-10-06] MEDS: CHLORHEXIDINE GLUCONATE 2 % 1 PACK (2 CLOTHS) TOP SCH (04:00)
[2017-10-06 04:06] LABS: MEAN CELL VOLUME 90.8 FL (80.0-100.0); MEAN CORPUSCULAR HEMOGLOBIN 31.5 PG (27.0-34.0); MEAN CORPUSCULAR HGB CONC 34.6 % (32.0-36.0); MEAN PLATELET VOLUME 11.2 FL (7.0-11.0); PLATELET COUNT 37 TH/MM3 (150-450); RED BLOOD COUNT 2.87 MIL/MM3 (4.00-5.30); RED CELL DISTRIBUTION WIDTH 18.9 % (11.6-17.2)
[2017-10-06 04:12] LABS: BICARBONATE 27.2 MEQ/L (21.0-32.0); CALCIUM 7.4 MG/DL (8.5-10.1); CREATININE 0.81 MG/DL (0.50-1.00); MAGNESIUM 1.8 MG/DL (1.5-2.5); PHOSPHORUS 2.8 MG/DL (2.5-4.9)
[2017-10-06 04:46] LABS: CALCIUM-PROTEIN CORRECTED 8.7 MG/DL (8.5-10.1); TOTAL PROTEIN 4.8 GM/DL (6.4-8.2)
[2017-10-06] MEDS: METOCLOPRAMIDE HCL 10 MG/2 ML VIAL IM SCH ×3 (05:20→21:20)
[2017-10-06] MEDS: LEVOTHYROXINE SODIUM 25 MCG TAB PO SCH (05:21)
[2017-10-06] MEDS: SUCRALFATE 1 GM/10 ML CUP PO SCH ×4 (08:00→21:00)
--- NOTE | 2017-10-06 08:15 | HHI.PR ---
Subjective Remarks Follow-up nausea and vomiting, C. difficile. The patient continues to report nausea, but states that overall she feels a little better this morning. Objective Vitals Vital Signs Date Time Temp Pulse Resp B/P (MAP) Pulse Ox O2 Delivery O2 Flow Rate FiO2 10/06/17 06:38 14 10/06/17 06:00 125 10/06/17 04:00 98.1 125 16 124/67 (86) 90 10/06/17 04:00 116 10/06/17 02:00 122 10/06/17 00:00 98.5 82 18 129/66 (87) 95 10/06/17 00:00 82 10/05/17 22:00 80 10/05/17 20:00 89 10/05/17 20:00 98.7 89 16 116/64 (81) 96 10/05/17 19:00 87 10/05/17 18:00 90 10/05/17 17:01 87 29 130/73 (92) 10/05/17 17:01 87 10/05/17 17:00 88 10/05/17 17:00 88 29 10/05/17 16:00 85 10/05/17 16:00 98.9 85 21 10/05/17 15:00 85 27 10/05/17 14:00 88 16 10/05/17 13:00 85 27 10/05/17 12:59 84 21 116/58 (77) 10/05/17 12:00 98.9 84 19 119/56 (77) 10/05/17 10:00 85 10/05/17 10:00 85 32 10/05/17 09:00 82 12 10/05/17 09:00 82 10/05/17 08:46 84 10/05/17 08:46 84 14 119/56 (77) 91 I/O 10/05/17 10/05/17 10/05/17 10/06/17 10/06/17 10/06/17 07:00 15:00 23:00 07:00 15:00 23:00 Intake Total 220 ml 350 ml 240 ml 60 ml Balance 220 ml 350 ml 240 ml 60 ml Intake Oral 120 ml 240 ml 60 ml IV Total 100 ml 350 ml # Voids 3 3 4 # Bowel Movements 2 3 2 Result Diagram: 10/06/1732910/06/17 033 Imaging Last Impressions Chest X-Ray 10/05/17 0000 Signed Impressions: Service Date/Time: Thursday, October 05, 2017 13:32 - CONCLUSION: Support apparatus good position, no pneumothorax. 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 Moderate ostial RUBY stenosis. Findings of mild proximal colitis. Raoul Denton MD CT Angiography 10/01/17 1251 Signed Impressions: Service Date/Time: Sunday, October 01, 2017 14:19 - CONCLUSION: 1. No evidence of pulmonary embolism. 2. Focal infiltrate within the left upper lobe posteriorly consistent with possible pneumonia. 3. Scattered atelectatic changes bilaterally. 4. Stable aneurysmal dilatation of the ascending thoracic aorta measuring 4.7 cm in greatest dimension. 5. Stable cardiomegaly and coronary artery calcifications. 6. Minimal posterior pleural thickening bilaterally. Desmond Jaimes MD Objective Remarks General: No acute distress. Appears uncomfortable. Heart: Regular rate and rhythm. No murmur. Lungs: Clear to auscultation bilaterally. No wheezes, rales, or rhonchi. Breathing is nonlabored. Abdomen: Soft, nontender, nondistended. Extremities: No lower extremity edema. Psych: Sleeping, but awakens easily and answers questions appropriately. Procedures None Urinary Catheter: No Vascular Central Line Catheter: Yes Assessment to: Continue Date of Insertion: Sep 21, 2017 Line: PICC A/P Assessment and Plan 1. Sepsis: Secondary to C. difficile colitis. Appreciate infectious disease recommendations. Continue IV Flagyl, oral vancomycin. Leukocytosis improved. 2. Anemia, thrombocytopenia, AML: Appreciate hematology/oncology recommendations. H/H stable. 3. Respiratory insufficiency: Continue supplemental oxygen, bronchodilators. 4. C. difficile colitis: Diarrhea has improved. Continue IV Flagyl, oral vancomycin. Appreciate GI, infectious disease recommendations. 5. Nausea/vomiting: Not controlled by Zofran. Patient also receiving Reglan. Had adverse reaction to phenergan. Tigan did not help. Haldol added by palliative care. Add scopolamine patch. 6. GI prophylaxis: Pepcid. 7. Atrial fibrillation with RVR: Rate is improved. No anticoagulation due to thrombocytopenia. Cardiology consult is pending. 8. DVT prophylaxis: SCDs. Avoid chemical prophylaxis secondary to anemia. 9. Hypokalemia: Improved with supplementation. Jordin Elmore MD Oct 06, 2017 08:15
[2017-10-06 08:30] LABS: BLASTS 62 % (0-0); LYMPHOCYTES 15 % (9-44); METAMYELOCYTES 1 % (0-1); MONOCYTES 14 % (0-8); MYELOCYTES 3 % (0-0); NEUTROPHIL # MANUAL DIFF 0.9 TH/MM3 (1.8-7.7); POLYS (SEG NEUTROPHILS) 3 % (16-70); PROMYELOCYTES 2 % (0-0)
[2017-10-06 08:35] LABS: ACANTHOCYTES OCC (NORMAL)
[2017-10-06] MEDS ORDERED: SCOPOLAMINE 1.5 MG PATCH T-DERMAL SCH (09:00)
[2017-10-06] MEDS: PANTOPRAZOLE SODIUM 40 MG VIAL IV PUSH SCH ×2 (09:02→21:01)
[2017-10-06] MEDS: METOPROLOL TARTRATE 25 MG TAB PO SCH ×2 (09:02→21:02)
[2017-10-06] MEDS: RIFAXIMIN 550 MG TAB PO SCH ×2 (09:02→21:00)
[2017-10-06] MEDS: NYSTATIN SUSP 500,000 U/5 ML CUP SWISH-SWAL SCH ×4 (09:02→21:00)
[2017-10-06] MEDS ORDERED: VANCOMYCIN 25 MG/ML SUSP 100 ML BOTTLE PO SCH (10:00)
[2017-10-06] MEDS: VANCOMYCIN 25 MG/ML SUSP 100 ML BOTTLE PO SCH ×4 (10:28→22:28)
[2017-10-06] MEDS: [UNRECOGNIZED DRUG - REMARK] T-DERMAL SCH (10:29)
--- NOTE | 2017-10-06 11:50 | PD.ONC.PN ---
Subjective Subjective Remarks Afebrile Pt resting on L lateral side visiting with family member She reports she has persistent nausea A scopolamine patch placed and is hoping that this helps Reports pain in her L upper chest from port placement. Objective Data Date Time Temp Pulse Resp B/P (MAP) Pulse Ox O2 Delivery O2 Flow Rate FiO2 10/06/17 08:00 124 10/06/17 06:38 14 10/06/17 06:00 125 10/06/17 04:00 98.1 125 16 124/67 (86) 90 10/06/17 04:00 116 10/06/17 02:00 122 10/06/17 00:00 98.5 82 18 129/66 (87) 95 10/06/17 00:00 82 10/05/17 22:00 80 10/05/17 20:00 89 10/05/17 20:00 98.7 89 16 116/64 (81) 96 10/05/17 19:00 87 10/05/17 18:00 90 10/05/17 17:01 87 29 130/73 (92) 10/05/17 17:01 87 10/05/17 17:00 88 10/05/17 17:00 88 29 10/05/17 16:00 85 10/05/17 16:00 98.9 85 21 10/05/17 15:00 85 27 10/05/17 14:00 88 16 10/05/17 13:00 85 27 10/05/17 12:59 84 21 116/58 (77) 10/05/17 12:00 98.9 84 19 119/56 (77) 10/06/17 10/06/17 10/06/17 07:00 15:00 23:00 Intake Total 60 ml Balance 60 ml Result Diagram: 10/06/17 03310/06/17 0330 Laboratory Results Laboratory Tests Test 10/06/17 03:30 White Blood Count 10.0 TH/MM3 Red Blood Count 2.87 MIL/MM3 Hemoglobin 9.0 GM/DL Hematocrit 26.0 % Mean Corpuscular Volume 90.8 FL Mean Corpuscular Hemoglobin 31.5 PG Mean Corpuscular Hemoglobin Concent 34.6 % Red Cell Distribution Width 18.9 % Platelet Count 37 TH/MM3 Mean Platelet Volume 11.2 FL CBC Comment AUTO DIFF Differential Total Cells Counted 100 Neutrophils % (Manual) 3 % Lymphocytes % 15 % Monocytes % 14 % Neutrophils # (Manual) 0.9 TH/MM3 Metamyelocytes 1 % Myelocytes 3 % Promyelocytes 2 % Differential Comment FINAL DIFF MANUAL Blastocytes 62 % Platelet Estimate LOW Platelet Morphology Comment ENLARGED Acanthocytes OCC Blood Urea Nitrogen 3 MG/DL Creatinine 0.81 MG/DL Random Glucose 93 MG/DL Total Protein 4.8 GM/DL Calcium Level 7.4 MG/DL Phosphorus Level 2.8 MG/DL Magnesium Level 1.8 MG/DL Sodium Level 143 MEQ/L Potassium Level 3.5 MEQ/L Chloride Level 110 MEQ/L Carbon Dioxide Level 27.2 MEQ/L Anion Gap 6 MEQ/L Estimat Glomerular Filtration Rate 70 ML/MIN Protein Corrected Calcium 8.7 MG/DL Administered Medications Medications (Trade) Dose Ordered Sig/Tylor Route PRN Reason Start Time Stop Time Status Last Admin Dose Admin Sodium Chloride (NS Flush) 2 ml UNSCH PRN IV FLUSH FLUSH AFTER USING IV ACCESS 10/01/17 12:45 10/03/17 08:27 Chlorhexidine Gluconate (Chlorhexidine 2% Cloth) 3 pack Taper DAILY@04 TOP 10/02/17 04:00 09/28/18 03:59 10/06/17 04:00 Potassium Chloride 100 ml @ 25 mls/hr UNSCH PRN IV For Potassium 3.3 - 3.5 mEq/L 10/01/17 15:00 10/02/17 15:36 Potassium Chloride 100 ml @ 50 mls/hr Q2H PRN IV For Potassium 3.3 - 3.5 mEq/L 10/01/17 15:00 10/02/17 04:00 Magnesium Sulfate 2 gm/Sodium Chloride 100 ml @ 50 mls/hr UNSCH PRN IV For Magnesium 1.2 - 1.6 mg/dL 10/01/17 15:00 10/03/17 11:31 Sodium Phosphate 30 mmol/Sodium Chloride 250 ml @ 42 mls/hr UNSCH PRN IV For Phosphorus < 2.5 mg/dL 10/01/17 15:00 10/03/17 13:13 Potassium Phosphate 30 mmol/ Sodium Chloride 260 ml @ 42 mls/hr UNSCH PRN IV SEE LABEL COMMENTS 10/01/17 15:00 10/05/17 06:51 Dextrose (D50w (Vial) Inj) 50 ml UNSCH PRN IV PUSH HYPOGLYCEMIA-SEE COMMENTS 10/01/17 15:00 10/04/17 20:25 Morphine Sulfate (Morphine Inj) 2 mg Q3H PRN IV PUSH pain 6-10 10/01/17 21:30 10/06/17 09:43 Ondansetron HCl (Zofran Inj) 4 mg Q6HR IV PUSH 10/02/17 12:00 10/06/17 05:21 Metoprolol Tartrate (Lopressor) 25 mg Q12HR PO 10/02/17 14:45 10/06/17 09:02 Dextrose/Sodium Chloride 1,000 ml @ 50 mls/hr Q20H IV 10/02/17 16:00 10/06/17 00:33 Sucralfate (Carafate Liq) 1 gm ACHS PO 10/03/17 12:00 10/05/17 08:44 Pantoprazole Sodium (Protonix Inj) 40 mg Q12HR IV PUSH 10/03/17 11:30 10/06/17 09:02 Lorazepam (Ativan) 0.5 mg Q8H PRN PO ANXIETY 10/03/17 16:00 10/06/17 09:02 Nystatin (Mycostatin Liq) 5 ml QID SWISH-SWAL 10/04/17 18:00 10/06/17 09:02 Metoclopramide HCl (Reglan Inj) 10 mg Q8HR IM 10/04/17 22:00 10/06/17 05:20 Rifaximin (Xifaxan) 550 mg BID PO 10/04/17 21:00 10/06/17 09:02 Metronidazole 100 ml @ 100 mls/hr Q8H IV 10/04/17 16:00 10/06/17 09:02 Haloperidol Lactate (Haldol Inj) 0.5 mg Q6HR PRN IV PUSH MILD NAUSEA OR VOMITING 10/05/17 14:15 10/05/17 20:52 Vancomycin HCl (Vancomycin 25 Mg/ml Liq) 125 mg QID PO 10/06/17 10:00 10/06/17 10:28 Non-Formulary Medication 1 ea Q3D T-DERMAL 10/06/17 10:00 10/06/17 10:29 Objective Remarks GENERAL: Older female resting in bed complaining of nausea SKIN: Warm and dry. HEAD: Normocephalic. EYES: No injection or drainage. NECK: Supple, trachea midline. CARDIOVASCULAR: +S1/S2. Tachycardia RESPIRATORY: Clear posteriorly but diminished. Breathing unlabored at rest. GASTROINTESTINAL: Abdomen soft, non-tender, nondistended. EXTREMITIES: No cyanosis. No edema. NEUROLOGICAL: No obvious focal deficit. Moving all extremities. Assessment/Plan Assessment 67y/o female with AML, admitted with intractable nausea/vomiting. HPI (brought forward from initial consult for continuity of care): status post four cycles of Dacogen. She was initiated on treatment in February of 2017. has received four cycles thus far with the most recent cycle completed 7 prior to current admission. She presented to hospital three days after her most recent discharge. She was admitted to the hospital at that time with C-diff colitis. The patient reports symptoms of abdominal pain, nausea, inability tolerate oral intake and generalized weakness and fatigue. She was unable to care for herself at home even with the help of her daughter and was brought into [place] ER last night. The patient was noted to be tachycardiac and hypotensive. She was assessed to have severe sepsis likely secondary to C-diff colitis and was admitted to the hospital for IV fluid hydration and antibiotic therapy. Plan 1. AML: s/p C4 Dacogen one week prior to current admission. Will monitor CBC and transfuse as needed 2. Nausea: On scheduled zofran, with PRN compazine and phenergan and ativan and scopolamine 3. C. difficile colitis related sepsis: on IV Flagyl + PO Vanco 4. A. fib with RVR; rate currently in the 120's. Attending Statement The exam, history, and the medical decision-making described in the above note were completed with the assistance of the mid-level provider. I reviewed and agree with the findings presented. I attest that I had a [id number] encounter with the patient on the same day, and personally performed and documented my assessment and findings in the medical record. Nausea better with scopolomine patch. Feeling sleepy. No abdominal pain. Continue antiemetics. Port site is sore but no erythema. Wendy Lopez Oct 06, 2017 11:50 Chad Toledo MD Oct 06, 2017 13:48
--- NOTE | 2017-10-06 11:57 | HHI.GIFU ---
Subjective Remarks Pt with continued nausea and dry heaves, no emesis. BMs now formed, last BM was yesterday, denies obvious blood in stool. Denies abdominal pain. (Tila Bah) Objective Vitals I&O Vital Signs Date Time Temp Pulse Resp B/P (MAP) Pulse Ox O2 Delivery O2 Flow Rate FiO2 10/06/17 08:00 124 10/06/17 06:38 14 10/06/17 06:00 125 10/06/17 04:00 98.1 125 16 124/67 (86) 90 10/06/17 04:00 116 10/06/17 02:00 122 10/06/17 00:00 98.5 82 18 129/66 (87) 95 10/06/17 00:00 82 10/05/17 22:00 80 10/05/17 20:00 89 10/05/17 20:00 98.7 89 16 116/64 (81) 96 10/05/17 19:00 87 10/05/17 18:00 90 10/05/17 17:01 87 29 130/73 (92) 10/05/17 17:01 87 10/05/17 17:00 88 10/05/17 17:00 88 29 10/05/17 16:00 85 10/05/17 16:00 98.9 85 21 10/05/17 15:00 85 27 10/05/17 14:00 88 16 10/05/17 13:00 85 27 10/05/17 12:59 84 21 116/58 (77) 10/05/17 12:00 98.9 84 19 119/56 (77) I/O 10/05/17 10/05/17 10/05/17 10/06/17 10/06/17 10/06/17 07:00 15:00 23:00 07:00 15:00 23:00 Intake Total 220 ml 350 ml 240 ml 60 ml Balance 220 ml 350 ml 240 ml 60 ml Intake Oral 120 ml 240 ml 60 ml IV Total 100 ml 350 ml # Voids 3 3 4 # Bowel Movements 2 3 2 Laboratory Laboratory Tests Test 10/06/17 03:30 White Blood Count 10.0 Red Blood Count 2.87 Hemoglobin 9.0 Hematocrit 26.0 Mean Corpuscular Volume 90.8 Mean Corpuscular Hemoglobin 31.5 Mean Corpuscular Hemoglobin Concent 34.6 Red Cell Distribution Width 18.9 Platelet Count 37 Mean Platelet Volume 11.2 CBC Comment AUTO DIFF Differential Total Cells Counted 100 Neutrophils % (Manual) 3 Lymphocytes % 15 Monocytes % 14 Neutrophils # (Manual) 0.9 Metamyelocytes 1 Myelocytes 3 Promyelocytes 2 Differential Comment FINAL DIFF MANUAL Blastocytes 62 Platelet Estimate LOW Platelet Morphology Comment ENLARGED Acanthocytes OCC Blood Urea Nitrogen 3 Creatinine 0.81 Random Glucose 93 Total Protein 4.8 Calcium Level 7.4 Phosphorus Level 2.8 Magnesium Level 1.8 Sodium Level 143 Potassium Level 3.5 Chloride Level 110 Carbon Dioxide Level 27.2 Anion Gap 6 Estimat Glomerular Filtration Rate 70 Protein Corrected Calcium 8.7 Date/Time Source Procedure Growth Status 10/02/17 12:00 Blood Other Aerobic Blood Culture - Preliminary NO GROWTH IN 4 DAYS Resulted 10/02/17 12:00 Blood Other Anaerobic Blood Culture - Preliminary NO GROWTH IN 4 DAYS Resulted 10/02/17 14:00 Stool Stool Stool Occult Blood ([facility]) - Final HEMOCCULT NEGATIVE Complete 10/01/17 15:14 Urine Clean Catch Urine Culture - Final 50-100,000 CFU/ML MIXED GRAM POSITIVE... Complete Imaging Last Impressions Chest X-Ray 10/05/17 0000 Signed Impressions: Service Date/Time: Thursday, October 05, 2017 13:32 - CONCLUSION: Support apparatus good position, no pneumothorax. 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 Moderate ostial RUBY stenosis. Findings of mild proximal colitis. Raoul Denton MD CT Angiography 10/01/17 1251 Signed Impressions: Service Date/Time: Sunday, October 01, 2017 14:19 - CONCLUSION: 1. No evidence of pulmonary embolism. 2. Focal infiltrate within the left upper lobe posteriorly consistent with possible pneumonia. 3. Scattered atelectatic changes bilaterally. 4. Stable aneurysmal dilatation of the ascending thoracic aorta measuring 4.7 cm in greatest dimension. 5. Stable cardiomegaly and coronary artery calcifications. 6. Minimal posterior pleural thickening bilaterally. Desmond Jaimes MD Physical Exam HEENT: Normocephalic; atraumatic CHEST: Even/unlabored CARDIAC: RRR ABDOMEN: Soft, nontender, bowel sounds active SKIN: Normal; no rash; no jaundice. 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 (Tila Bah) Assessment and Plan Plan ASSESSMENT - anemia - hgb was 6.6 on admission, down from 7.8 on 09/28. no obvious source bleeding, had chemo 09/26/17 and per oncology note expected to have worsening pancytopenia in the coming weeks. Had EGD that found mild esophagitis, severe gastritis, no bx done d/t low PLT. last colonoscopy [address] Caldreón found "inflammation." CT shows poss mild colitis. + c diff on PO vanc do not think she could tolerate bowel prep at this time. 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 blood transfusing. - epigastric pain - EGD as above. esophagitis, gastritis couldn't get bx. will check h pylori - n/v - persistent, /2 chemo? EGD as above. - thrombocytopenia - PLT 57 this admission - leukocytosis - ?leukemia. + c diff on PO vanc, denies diarrhea. afebrile. ID consulted. - AML (10/02) Pt with some nausea this morning, denies emesis. Reports small BM today, stool being sent for H. Pylori antigen and Hemoccult. No obvious GIB at this time. H/H currently 10.2/29.3 S/P 2 U PRBCs yesterday. She has been seen by oncology who addressed possible hospitce and pt reports she is not ready for this transition. She remains on oral Vanco and IV Flagyl. Remains on clear liquids, poor appetite. Per oncology, nutrition should be encourage for pt to gain strength. CT abdomen W pelvis W IV contrast (10/01) noted --> Minimal bowel wall thickening descending colon it could be an early mild colitis. No other etiology for abdominal pain is evident. (10/03/17) denies abd pain, diarrhea. has some nausea no vomiting. CTA 10/03/ showed mild colitis, mild ostial celiac stenosis, moderate SMA stenosis, moderate ostial RUBY stenosis. + c diff, on abx. stool heme negative. HH mild decrease no bleeding. (10/04/17) no abd pain. + liquid stool today. nauseous, is tolerating Ensure. HH stable (10/05) Pt with continued nausea and dry heaves. Tigan started today. Continued Reglan and Zofran PRN. Labs reveal elevated TSH-89.8, pt being started on Levothyroxine tomorrow. Continued abdominal pain, she is unable to localize to specific area. Remains with some diarrhea , but seems to be improving. Vanco DCd yesterday, now on IV Flagyl and Rifaximin. Stool H. Pylori still pending. Anemia- drop in H/H currently 9.9/29.7, last transfused Oct 01. Hemoccult negative on Oct 02. Random serum cortisol level 17.2 at 9:45 at night, slight increase possibly related to thyroid dysfunction. (10/06) Pt with continued nausea and dry heaves, no emesis. Tigan now DCd. Possibly anxiety as causative factor for dry heaving. Haldol ordered per attending. Also has Reglan and Zofran as needed. Ativan for anxiety. Reports BMs more formed. Denies blood in stool, last BM was yesterday. Stool H. Pylori antigen still pending. IV Flagyl, oral Vanco, Xifaxan. OK to downgrade out of ICU from a GI standpoint. Will continue to monitor. PLAN - OK to downgrade out of ICU from a GI standpoint - Continue antiemetics - Continue IV Flagyl - Continue Rifaximin - Continue Oral Vanco - Thyroid replacement (pt refused this morning) - Clear liquid diet as tolerated - Monitor H/H - H Pylori stool antigen pending - Further recommendations to follow based on clinical course Pt has been seen and examined by myself and Dr. Calderón and this note is written on his behalf (Tila Bah) Plan Patient was seen and examined, agree with above-noted, she feels better as far as nausea with the patch, patient only 1 clear liquid but said that she will try to eat more tomorrow will be transferred out of the ICU today, she does not think that she want to take anymore chemotherapy, (Palak Calderón MD) Tila Bah Oct 06, 2017 11:57 Palak Calderón MD Oct 06, 2017 15:46
[2017-10-07] VITALS (9 sets, daily range): BP systolic 109–122; BP diastolic 69–73; PULSE 80–133; RESP 10–20; TEMP 98.4–99.8; O2SAT 97–99
[2017-10-07] MEDS: HALOPERIDOL LACTATE 5 MG/ML AMP IV PUSH PRN ×4 (00:11→23:48)
[2017-10-07] MEDS: MORPHINE SULFATE 2 MG/ML INJ IV PUSH PRN ×4 (01:10→23:49)
[2017-10-07] MEDS: INSULIN NovoLIN REGULAR SUPPLEMENTAL SCALE SQ SCH ×4 (03:00→21:00)
[2017-10-07] MEDS: CHLORHEXIDINE GLUCONATE 2 % 1 PACK (2 CLOTHS) TOP SCH (04:00)
[2017-10-07] MEDS: METOCLOPRAMIDE HCL 10 MG/2 ML VIAL IM SCH ×3 (05:04→22:08)
[2017-10-07] MEDS: ONDANSETRON HCL 4 MG/2 ML VIAL IV PUSH SCH ×3 (05:05→18:16)
[2017-10-07] MEDS: LEVOTHYROXINE SODIUM 25 MCG TAB PO SCH (05:15)
[2017-10-07 07:04] LABS: HEMATOCRIT 26.3 % (35.0-46.0); HEMOGLOBIN 8.9 GM/DL (11.6-15.3); MEAN CORPUSCULAR HEMOGLOBIN 31.4 PG (27.0-34.0); MEAN CORPUSCULAR HGB CONC 33.7 % (32.0-36.0); MEAN PLATELET VOLUME 11.9 FL (7.0-11.0); PLATELET COUNT 33 TH/MM3 (150-450); RED BLOOD COUNT 2.83 MIL/MM3 (4.00-5.30); RED CELL DISTRIBUTION WIDTH 19.2 % (11.6-17.2); WHITE BLOOD COUNT 9.6 TH/MM3 (4.0-11.0)
[2017-10-07 07:35] LABS: BICARBONATE 27.9 MEQ/L (21.0-32.0); CALCIUM 7.4 MG/DL (8.5-10.1); CREATININE 0.87 MG/DL (0.50-1.00)
[2017-10-07 08:01] LABS: TOTAL PROTEIN 4.4 GM/DL (6.4-8.2)
[2017-10-07] MEDS: RIFAXIMIN 550 MG TAB PO SCH ×3 (08:19→22:07)
[2017-10-07] MEDS: metroNIDAZOLE 500 MG INJ 100 ML IV SCH ×3 (08:19→23:49)
[2017-10-07] MEDS: NYSTATIN SUSP 500,000 U/5 ML CUP SWISH-SWAL SCH ×4 (08:19→22:09)
[2017-10-07] MEDS: PANTOPRAZOLE SODIUM 40 MG VIAL IV PUSH SCH ×2 (08:20→22:08)
[2017-10-07] MEDS: METOPROLOL TARTRATE 25 MG TAB PO SCH ×3 (08:20→22:08)
[2017-10-07] MEDS: SUCRALFATE 1 GM/10 ML CUP PO SCH ×4 (08:20→22:07)
[2017-10-07] MEDS: VANCOMYCIN 25 MG/ML SUSP 100 ML BOTTLE PO SCH ×4 (08:20→22:33)
--- NOTE | 2017-10-07 08:33 | HHI.GIFU ---
Subjective Remarks Pt resting in bed. She states still feels nauseous, however, last time she had dry heaves was yesterday. Currently resting in bed comfortably in no apparent distress. (Tila Bah) Objective Vitals I&O Vital Signs Date Time Temp Pulse Resp B/P (MAP) Pulse Ox O2 Delivery O2 Flow Rate FiO2 10/07/17 06:00 120 10/07/17 05:19 19 10/07/17 04:00 119 10/07/17 04:00 99.8 119 13 10/07/17 02:00 118 10/07/17 00:00 116 10/07/17 00:00 98.4 116 10 122/70 (87) 10/06/17 22:00 74 10/06/17 20:00 98.8 118 16 108/73 (85) 10/06/17 20:00 118 10/06/17 18:00 74 10/06/17 16:00 79 10/06/17 16:00 98.7 79 23 113/63 (80) 10/06/17 14:00 116 10/06/17 12:00 98.7 117 15 101/62 (75) 10/06/17 12:00 117 10/06/17 10:00 126 I/O 10/06/17 10/06/17 10/06/17 10/07/17 10/07/17 10/07/17 07:00 15:00 23:00 07:00 15:00 23:00 Intake Total 60 ml 1350 ml 440 ml Balance 60 ml 1350 ml 440 ml Intake Oral 60 ml 250 ml 120 ml IV Total 1100 ml 320 ml # Voids 4 3 3 # Bowel Movements 2 0 0 Laboratory Laboratory Tests Test 10/07/17 06:22 White Blood Count 9.6 Red Blood Count 2.83 Hemoglobin 8.9 Hematocrit 26.3 Mean Corpuscular Volume 93.0 Mean Corpuscular Hemoglobin 31.4 Mean Corpuscular Hemoglobin Concent 33.7 Red Cell Distribution Width 19.2 Platelet Count 33 Mean Platelet Volume 11.9 CBC Comment AUTO DIFF Blood Urea Nitrogen 3 Creatinine 0.87 Random Glucose 99 Total Protein 4.4 Calcium Level 7.4 Sodium Level 140 Potassium Level 3.0 Chloride Level 106 Carbon Dioxide Level 27.9 Anion Gap 6 Estimat Glomerular Filtration Rate 65 Protein Corrected Calcium 9.0 Date/Time Source Procedure Growth Status 10/02/17 12:00 Blood Other Aerobic Blood Culture - Preliminary NO GROWTH IN 4 DAYS Resulted 10/02/17 12:00 Blood Other Anaerobic Blood Culture - Preliminary NO GROWTH IN 4 DAYS Resulted 10/02/17 14:00 Stool Stool Stool Occult Blood ([place]) - Final HEMOCCULT NEGATIVE Complete 10/01/17 15:14 Urine Clean Catch Urine Culture - Final 50-100,000 CFU/ML MIXED GRAM POSITIVE... Complete Imaging Last Impressions Chest X-Ray 10/05/17 0000 Signed Impressions: Service Date/Time: Thursday, October 05, 2017 13:32 - CONCLUSION: Support apparatus good position, no pneumothorax. 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 Moderate ostial RUBY stenosis. Findings of mild proximal colitis. Raoul Denton MD CT Angiography 10/01/17 1251 Signed Impressions: Service Date/Time: Sunday, October 01, 2017 14:19 - CONCLUSION: 1. No evidence of pulmonary embolism. 2. Focal infiltrate within the left upper lobe posteriorly consistent with possible pneumonia. 3. Scattered atelectatic changes bilaterally. 4. Stable aneurysmal dilatation of the ascending thoracic aorta measuring 4.7 cm in greatest dimension. 5. Stable cardiomegaly and coronary artery calcifications. 6. Minimal posterior pleural thickening bilaterally. Desmond Jaimes MD Physical Exam HEENT: Normocephalic; atraumatic CHEST: Even/unlabored CARDIAC: RRR ABDOMEN: Soft, nontender, bowel sounds active SKIN: Normal; no rash; no jaundice. STILL RUNNER: No focal deficits; alert and oriented times three. (Tila Bah) Assessment and Plan Plan - anemia - hgb was 6.6 on admission, down from 7.8 on 09/28. no obvious source bleeding, had chemo 09/26/17 and per oncology note expected to have worsening pancytopenia in the coming weeks. Had EGD that found mild esophagitis, severe gastritis, no bx done d/t low PLT. last colonoscopy [address] Calderón found "inflammation." CT shows poss mild colitis. + c diff on PO vanc do not think she could tolerate bowel prep at this time. 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 blood transfusing. - epigastric pain - EGD as above. esophagitis, gastritis couldn't get bx. will check h pylori - n/v - persistent, 2/2 chemo? EGD as above. - thrombocytopenia - PLT 57 this admission - leukocytosis - ?leukemia. + c diff on PO vanc, denies diarrhea. afebrile. ID consulted. - AML (10/02) Pt with some nausea this morning, denies emesis. Reports small BM today, stool being sent for H. Pylori antigen and Hemoccult. No obvious GIB at this time. H/H currently 10.2/29.3 S/P 2 U PRBCs yesterday. She has been seen by oncology who addressed possible hospitce and pt reports she is not ready for this transition. She remains on oral Vanco and IV Flagyl. Remains on clear liquids, poor appetite. Per oncology, nutrition should be encourage for pt to gain strength. CT abdomen W pelvis W IV contrast (10/01) noted --> Minimal bowel wall thickening descending colon it could be an early mild colitis. No other etiology for abdominal pain is evident. (10/03/17) denies abd pain, diarrhea. has some nausea no vomiting. CTA 10/03/ showed mild colitis, mild ostial celiac stenosis, moderate SMA stenosis, moderate ostial RUBY stenosis. + c diff, on abx. stool heme negative. HH mild decrease no bleeding. (10/04/17) no abd pain. + liquid stool today. nauseous, is tolerating Ensure. HH stable (10/05) Pt with continued nausea and dry heaves. Tigan started today. Continued Reglan and Zofran PRN. Labs reveal elevated TSH-89.8, pt being started on Levothyroxine tomorrow. Continued abdominal pain, she is unable to localize to specific area. Remains with some diarrhea , but seems to be improving. Vanco DCd yesterday, now on IV Flagyl and Rifaximin. Stool H. Pylori still pending. Anemia- drop in H/H currently 9.9/29.7, last transfused Oct 01. Hemoccult negative on Oct 02. Random serum cortisol level 17.2 at 9:45 at night, slight increase possibly related to thyroid dysfunction. (10/06) Pt with continued nausea and dry heaves, no emesis. Tigan now DCd. Possibly anxiety as causative factor for dry heaving. Haldol ordered per attending. Also has Reglan and Zofran as needed. Ativan for anxiety. Reports BMs more formed. Denies blood in stool, last BM was yesterday. Stool H. Pylori antigen still pending. IV Flagyl, oral Vanco, Xifaxan. OK to downgrade out of ICU from a GI standpoint. Will continue to monitor. (10/07) --> Pt reports continued nausea, however, no dry heaves since last night. She does not notice more improvement with nausea with any specific medications. Currently has Scopolamine patch, Haldol, Reglan, Carafate, Protonix, Zofran, Ativan. BMs are more formed and not as frequent. Remains on Vanco and Flagyl. PLAN - Continue antiemetics - Continue IV Flagyl - Continue Rifaximin - Continue Oral Vanco - Thyroid replacement (pt refused this morning) - Full liquid diet as tolerated - Monitor H/H - H Pylori stool antigen pending - Further recommendations to follow based on clinical course Pt has been seen and examined by myself and Dr. Collier and this note is written on his behalf (Tila Bah) Physician Comments patient seen and examined agree with above monitor labs continue present supportive care (Santana Collier MD) Tila Bah Oct 07, 2017 08:33 Santana Collier MD Oct 07, 2017 22:20
--- NOTE | 2017-10-07 08:37 | HHI.PR ---
Subjective Remarks Follow up nausea/vomiting. Patient states that she still has nausea, dry heaves. No other complaints at this time. Objective Vitals Vital Signs Date Time Temp Pulse Resp B/P (MAP) Pulse Ox O2 Delivery O2 Flow Rate FiO2 10/07/17 06:00 120 10/07/17 05:19 19 10/07/17 04:00 119 10/07/17 04:00 99.8 119 13 10/07/17 02:00 118 10/07/17 00:00 116 10/07/17 00:00 98.4 116 10 122/70 (87) 10/06/17 22:00 74 10/06/17 20:00 98.8 118 16 108/73 (85) 10/06/17 20:00 118 10/06/17 18:00 74 10/06/17 16:00 79 10/06/17 16:00 98.7 79 23 113/63 (80) 10/06/17 14:00 116 10/06/17 12:00 98.7 117 15 101/62 (75) 10/06/17 12:00 117 10/06/17 10:00 126 I/O 10/06/17 10/06/17 10/06/17 10/07/17 10/07/17 10/07/17 07:00 15:00 23:00 07:00 15:00 23:00 Intake Total 60 ml 1350 ml 440 ml Balance 60 ml 1350 ml 440 ml Intake Oral 60 ml 250 ml 120 ml IV Total 1100 ml 320 ml # Voids 4 3 3 # Bowel Movements 2 0 0 Result Diagram: 10/07/1762110/07/17621 Imaging Last Impressions Chest X-Ray 10/05/17 0000 Signed Impressions: Service Date/Time: Thursday, October 05, 2017 13:32 - CONCLUSION: Support apparatus good position, no pneumothorax. 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 Moderate ostial RUBY stenosis. Findings of mild proximal colitis. Raoul Denton MD CT Angiography 10/01/17 1251 Signed Impressions: Service Date/Time: Sunday, October 01, 2017 14:19 - CONCLUSION: 1. No evidence of pulmonary embolism. 2. Focal infiltrate within the left upper lobe posteriorly consistent with possible pneumonia. 3. Scattered atelectatic changes bilaterally. 4. Stable aneurysmal dilatation of the ascending thoracic aorta measuring 4.7 cm in greatest dimension. 5. Stable cardiomegaly and coronary artery calcifications. 6. Minimal posterior pleural thickening bilaterally. Desmond Jaimes MD Objective Remarks General: No acute distress. Heart: Regular rate and rhythm. No murmur. Lungs: Clear to auscultation bilaterally. No wheezes, rales, or rhonchi. Breathing is nonlabored. Abdomen: Soft, nontender, nondistended. Extremities: No lower extremity edema. Psych: Alert, oriented. Procedures None Urinary Catheter: No Vascular Central Line Catheter: No Date of Insertion: Sep 21, 2017 Line: PICC A/P Assessment and Plan 1. Sepsis: Secondary to C. difficile colitis. Appreciate infectious disease recommendations. Continue IV Flagyl, oral vancomycin. Leukocytosis improved. 2. Anemia, thrombocytopenia, AML: Appreciate hematology/oncology recommendations. H/H stable. 3. Respiratory insufficiency: Continue supplemental oxygen, bronchodilators. 4. C. difficile colitis: Diarrhea has improved. Continue IV Flagyl, oral vancomycin. Appreciate GI, infectious disease recommendations. 5. Nausea/vomiting: Not controlled by Zofran. Patient also receiving Reglan. Had adverse reaction to Phenergan. Tigan did not help. Haldol added by palliative care. Continue scopolamine patch. Discussed with GI ANGEL Adorno. 6. GI prophylaxis: Pepcid. 7. Atrial fibrillation with RVR: Rate is improved this morning, although rate was elevated overnight. No anticoagulation due to thrombocytopenia. Cardiology consult is pending. 8. DVT prophylaxis: SCDs. Avoid chemical prophylaxis secondary to anemia. 9. Hypokalemia: Potassium is low again today. Supplement per electrolyte protocol. Discharge Planning Transfer to [facility]. Jordin Elmore MD Oct 07, 2017 08:37
[2017-10-07 08:43] LABS: BLASTS 80 % (0-0); LYMPHOCYTES 10 % (9-44); MONOCYTES 1 % (0-8); NEUTROPHIL # MANUAL DIFF 0.9 TH/MM3 (1.8-7.7); POLYS (SEG NEUTROPHILS) 9 % (16-70)
[2017-10-07 08:48] LABS: ACANTHOCYTES OCC (NORMAL); OVALOCYTES 1+ (NORMAL)
[2017-10-07] MEDS: LORazepam 0.5 MG TAB PO PRN ×2 (10:27→18:39)
[2017-10-07] MEDS: POTASSIUM CHLOR 40 MEQ PREMIX 100 ML IV PRN ×2 (10:38→13:38)
[2017-10-07] MEDS: D5-NS + KCL 20 MEQ INJ 1,000 ML IV SCH (18:39)
[2017-10-08] VITALS (7 sets, daily range): BP systolic 104–127; BP diastolic 58–77; PULSE 77–131; RESP 12–25; TEMP 98.3–99.6; O2SAT 93
[2017-10-08] MEDS: INSULIN NovoLIN REGULAR SUPPLEMENTAL SCALE SQ SCH ×3 (03:00→21:00)
[2017-10-08] MEDS: CHLORHEXIDINE GLUCONATE 2 % 1 PACK (2 CLOTHS) TOP SCH (03:36)
[2017-10-08] MEDS: MORPHINE SULFATE 2 MG/ML INJ IV PUSH PRN ×2 (04:04→21:01)
[2017-10-08 05:42] LABS: AUTOMATED NEUTROPHIL # 0.3 TH/MM3 (1.8-7.7); EOSINOPHIL % 0.1 % (0.0-4.0); HEMATOCRIT 24.8 % (35.0-46.0); HEMOGLOBIN 8.2 GM/DL (11.6-15.3); LYMPH % 11.1 % (9.0-44.0); LYMPHOCYTE # 1.4 TH/MM3 (1.0-4.8); MEAN CELL VOLUME 93.2 FL (80.0-100.0); MEAN CORPUSCULAR HGB CONC 33.2 % (32.0-36.0); MEAN PLATELET VOLUME 12.1 FL (7.0-11.0); MONO % 86.2 % (0.0-8.0); MONOCYTE # 10.6 TH/MM3 (0-0.9); NEUT % 2.6 % (16.0-70.0); PLATELET COUNT 25 TH/MM3 (150-450); RED BLOOD COUNT 2.66 MIL/MM3 (4.00-5.30); RED CELL DISTRIBUTION WIDTH 19.4 % (11.6-17.2); WHITE BLOOD COUNT 12.3 TH/MM3 (4.0-11.0)
[2017-10-08] MEDS: METOCLOPRAMIDE HCL 10 MG/2 ML VIAL IM SCH ×3 (06:03→21:00)
[2017-10-08] MEDS: LEVOTHYROXINE SODIUM 25 MCG TAB PO SCH (06:03)
[2017-10-08] MEDS: ONDANSETRON HCL 4 MG/2 ML VIAL IV PUSH SCH ×3 (06:03→17:44)
[2017-10-08 06:09] LABS: CALCIUM 7.2 MG/DL (8.5-10.1); CREATININE 0.87 MG/DL (0.50-1.00); MAGNESIUM 1.7 MG/DL (1.5-2.5)
[2017-10-08 06:27] LABS: CALCIUM-PROTEIN CORRECTED 8.5 MG/DL (8.5-10.1); TOTAL PROTEIN 4.7 GM/DL (6.4-8.2)
--- NOTE | 2017-10-08 07:34 | PD.ONC.PN ---
Subjective Subjective Remarks Patient seen and examined, vital signs, labs, medications and microbiology reviewed. Events over the weekend reviewed. Progress notes from the weekend reviewed. She is no longer on rate control medication infusion i.e. diltiazem. Vital signs appear stable at rest. Subjectively; patient requests transfer out of the ICU. She tells me she remains chronically nauseated and even the thought of food makes her want to throw up. She tells me she drank 2 or 3 sips of ensure about a half hour ago and feels more nauseated now. She is now on a scopolamine patch and Marinol has been resumed. Objective Data Date Time Temp Pulse Resp B/P (MAP) Pulse Ox O2 Delivery O2 Flow Rate FiO2 10/08/17 04:00 95 10/08/17 04:00 99.0 95 23 127/77 (94) 10/08/17 00:00 98.7 131 22 104/70 (81) 10/08/17 00:00 131 10/07/17 22:00 133 10/07/17 20:00 126 10/07/17 20:00 98.5 126 14 109/71 (84) 99 10/07/17 16:00 80 10/07/17 16:00 99.0 80 20 122/73 (89) 97 10/07/17 12:00 117 10/07/17 12:00 117 13 112/69 (83) 99 10/07/17 08:00 98.8 80 20 122/73 (89) 97 10/07/17 08:00 80 10/08/17 10/08/17 10/08/17 07:00 15:00 23:00 Intake Total 360 ml Balance 360 ml Result Diagram: 10/08/17 0516 10/08/17 0516 Laboratory Results Laboratory Tests Test 10/07/17 22:31 10/08/17 05:16 Potassium Level 4.1 MEQ/L 3.8 MEQ/L White Blood Count 12.3 TH/MM3 Red Blood Count 2.66 MIL/MM3 Hemoglobin 8.2 GM/DL Hematocrit 24.8 % Mean Corpuscular Volume 93.2 FL Mean Corpuscular Hemoglobin 31.0 PG Mean Corpuscular Hemoglobin Concent 33.2 % Red Cell Distribution Width 19.4 % Platelet Count 25 TH/MM3 Mean Platelet Volume 12.1 FL Neutrophils (%) (Auto) 2.6 % Lymphocytes (%) (Auto) 11.1 % Monocytes (%) (Auto) 86.2 % Eosinophils (%) (Auto) 0.1 % Basophils (%) (Auto) 0.0 % Neutrophils # (Auto) 0.3 TH/MM3 Lymphocytes # (Auto) 1.4 TH/MM3 Monocytes # (Auto) 10.6 TH/MM3 Eosinophils # (Auto) 0.0 TH/MM3 Basophils # (Auto) 0.0 TH/MM3 CBC Comment AUTO DIFF Blood Urea Nitrogen 3 MG/DL Creatinine 0.87 MG/DL Random Glucose 101 MG/DL Total Protein 4.7 GM/DL Calcium Level 7.2 MG/DL Magnesium Level 1.7 MG/DL Sodium Level 141 MEQ/L Chloride Level 108 MEQ/L Carbon Dioxide Level 25.0 MEQ/L Anion Gap 8 MEQ/L Estimat Glomerular Filtration Rate 65 ML/MIN Protein Corrected Calcium 8.5 MG/DL Administered Medications Medications (Trade) Dose Ordered Sig/Tylor Route PRN Reason Start Time Stop Time Status Last Admin Dose Admin Sodium Chloride (NS Flush) 2 ml UNSCH PRN IV FLUSH FLUSH AFTER USING IV ACCESS 10/01/17 12:45 10/03/17 08:27 Chlorhexidine Gluconate (Chlorhexidine 2% Cloth) Taper DAILY@04 TOP 10/02/17 04:00 09/28/18 03:59 10/08/17 03:36 Potassium Chloride 100 ml @ 50 mls/hr Q2H PRN IV For Potassium 2.8 - 3.2 mEq/L 10/01/17 15:00 10/07/17 13:38 Potassium Chloride 100 ml @ 25 mls/hr UNSCH PRN IV For Potassium 3.3 - 3.5 mEq/L 10/01/17 15:00 10/02/17 15:36 Potassium Chloride 100 ml @ 50 mls/hr Q2H PRN IV For Potassium 3.3 - 3.5 mEq/L 10/01/17 15:00 10/02/17 04:00 Magnesium Sulfate 2 gm/Sodium Chloride 100 ml @ 50 mls/hr UNSCH PRN IV For Magnesium 1.2 - 1.6 mg/dL 10/01/17 15:00 10/03/17 11:31 Sodium Phosphate 30 mmol/Sodium Chloride 250 ml @ 42 mls/hr UNSCH PRN IV For Phosphorus < 2.5 mg/dL 10/01/17 15:00 10/03/17 13:13 Potassium Phosphate 30 mmol/ Sodium Chloride 260 ml @ 42 mls/hr UNSCH PRN IV SEE LABEL COMMENTS 10/01/17 15:00 10/05/17 06:51 Dextrose (D50w (Vial) Inj) 50 ml UNSCH PRN IV PUSH HYPOGLYCEMIA-SEE COMMENTS 10/01/17 15:00 10/04/17 20:25 Morphine Sulfate (Morphine Inj) 2 mg Q3H PRN IV PUSH pain 6-10 10/01/17 21:30 10/08/17 04:04 Ondansetron HCl (Zofran Inj) 4 mg Q6HR IV PUSH 10/02/17 12:00 10/08/17 06:03 Metoprolol Tartrate (Lopressor) 25 mg Q12HR PO 10/02/17 14:45 10/07/17 08:20 Sucralfate (Carafate Liq) 1 gm ACHS PO 10/03/17 12:00 10/07/17 22:07 Pantoprazole Sodium (Protonix Inj) 40 mg Q12HR IV PUSH 10/03/17 11:30 10/07/17 22:08 Lorazepam (Ativan) 0.5 mg Q8H PRN PO ANXIETY 10/03/17 16:00 10/07/17 18:39 Nystatin (Mycostatin Liq) 5 ml QID SWISH-SWAL 10/04/17 18:00 10/07/17 22:09 Metoclopramide HCl (Reglan Inj) 10 mg Q8HR IM 10/04/17 22:00 10/08/17 06:03 Rifaximin (Xifaxan) 550 mg BID PO 10/04/17 21:00 10/07/17 22:07 Metronidazole 100 ml @ 100 mls/hr Q8H IV 10/04/17 16:00 10/07/17 23:49 Levothyroxine Sodium (Synthroid) 25 mcg DAILY@0600 PO 10/06/17 06:00 10/08/17 06:03 Haloperidol Lactate (Haldol Inj) 0.5 mg Q6HR PRN IV PUSH MILD NAUSEA OR VOMITING 10/05/17 14:15 10/07/17 23:48 Haloperidol Lactate (Haldol Inj) 1 mg Q6HR PRN IV PUSH SEVERE NAUSEA AND VOMITING 10/05/17 16:15 10/07/17 16:05 Vancomycin HCl (Vancomycin 25 Mg/ml Liq) 125 mg QID PO 10/06/17 10:00 10/07/17 22:33 Non-Formulary Medication 1 ea Q3D T-DERMAL 10/06/17 10:00 10/06/17 10:29 Potassium Chloride/Dextrose/ Sod Cl 1,000 ml @ 50 mls/hr Q20H IV 10/07/17 18:15 10/07/17 18:39 Objective Remarks General Physical Appearance: Ms. Read is a chronically ill and pale-appearing elderly lady. She is laying in bed, she appears to be uncomfortable. She speaks to be in full sentences and is alert and oriented x3. HEENT: Head atraumatic, normocephalic. Conjunctivae are pale. Sclerae are anicteric. EOMI. PERRLA. Oral exam - no pharyngeal erythema. Neck Exam: No palpable cervical or supraclavicular lymphadenopathy. Respiratory Exam: Good inspiratory effort, scattered inspiratory crepitus along bilateral lower lung atkins. No wheezing or rhonchi. Cardiovascular: Irregular, S1-S2. No obvious murmurs, rubs or gallops. Abdominal Examination: Protuberant belly. Soft. No obvious tenderness, no masses palpable. Lower Extremities: No pretibial edema or calf tenderness. [employer]: No focal sensorimotor deficits. Musculoskeletal: Generally decreased /atrophic muscle mass and decreased tone. Skin: Cool and dry. Assessment/Plan Assessment 67y/o female with AML, admitted with intractable nausea/vomiting. HPI (brought forward from initial consult for continuity of care): status post four cycles of Dacogen. She was initiated on treatment in February of 2017. has received four cycles thus far with the most recent cycle completed 7 prior to current admission. She presented to hospital three days after her most recent discharge. She was admitted to the hospital at that time with C-diff colitis. The patient reports symptoms of abdominal pain, nausea, inability tolerate oral intake and generalized weakness and fatigue. She was unable to care for herself at home even with the help of her daughter and was brought into [facility] last night. The patient was noted to be tachycardiac and hypotensive. She was assessed to have severe sepsis likely secondary to C-diff colitis and was admitted to the hospital for IV fluid hydration and antibiotic therapy. Plan 1. AML: s/p C4 Dacogen one week prior to current admission. Will monitor CBC and transfuse as needed 2. Nausea: On scheduled zofran, with PRN compazine and phenergan and ativan and scopolamine. Still not able to eat. I talked to her about a feeding tube she declines this at this time. 3. C. difficile colitis related sepsis: on IV Flagyl + PO Vanco. 4. A. fib with RVR; rate currently controlled. Anticoagulation relatively contraindicated due to thrombocytopenia. Disposition: Transfer from critical care unit to the oncology unit. Encourage by mouth intake. She appears stable but not significantly improved. Her lack of mobility and ability to eat concerns me with regards to her potential for improvement. Roberto Yarbrough MD Oct 08, 2017 07:34
[2017-10-08 08:09] LABS: ACANTHOCYTES 1+ (NORMAL); BASOPHILS 1 % (0-2); BLASTS 83 % (0-0); LYMPHOCYTES 7 % (9-44); MYELOCYTES 3 % (0-0); NEUTROPHIL # MANUAL DIFF 1.1 TH/MM3 (1.8-7.7); OVALOCYTES 1+ (NORMAL); POLYS (SEG NEUTROPHILS) 6 % (16-70)
[2017-10-08 08:13] LABS: BURR CELLS 1+ (NORMAL)
--- NOTE | 2017-10-08 08:46 | HHI.PR ---
Subjective Remarks Follow up nausea/vomiting. Patient states that she is still having nausea and dry heaves. Cough is productive of whitish phlegm. No other complaints at this time. Objective Vitals Vital Signs Date Time Temp Pulse Resp B/P (MAP) Pulse Ox O2 Delivery O2 Flow Rate FiO2 10/08/17 04:00 95 10/08/17 04:00 99.0 95 23 127/77 (94) 10/08/17 00:00 98.7 131 22 104/70 (81) 10/08/17 00:00 131 10/07/17 22:00 133 10/07/17 20:00 126 10/07/17 20:00 98.5 126 14 109/71 (84) 99 10/07/17 16:00 80 10/07/17 16:00 99.0 80 20 122/73 (89) 97 10/07/17 12:00 117 10/07/17 12:00 117 13 112/69 (83) 99 I/O 10/07/17 10/07/17 10/07/17 10/08/17 10/08/17 10/08/17 07:00 15:00 23:00 07:00 15:00 23:00 Intake Total 440 ml 880 ml 360 ml Balance 440 ml 880 ml 360 ml Intake Oral 120 ml 480 ml 360 ml IV Total 320 ml 400 ml # Voids 3 6 3 # Bowel Movements 0 0 0 Result Diagram: 10/08/17 0516 10/08/17 0516 Imaging Last Impressions Chest X-Ray 10/05/17 0000 Signed Impressions: Service Date/Time: Thursday, October 05, 2017 13:32 - CONCLUSION: Support apparatus good position, no pneumothorax. 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 Moderate ostial RUBY stenosis. Findings of mild proximal colitis. Raoul Denton MD CT Angiography 10/01/17 1251 Signed Impressions: Service Date/Time: Sunday, October 01, 2017 14:19 - CONCLUSION: 1. No evidence of pulmonary embolism. 2. Focal infiltrate within the left upper lobe posteriorly consistent with possible pneumonia. 3. Scattered atelectatic changes bilaterally. 4. Stable aneurysmal dilatation of the ascending thoracic aorta measuring 4.7 cm in greatest dimension. 5. Stable cardiomegaly and coronary artery calcifications. 6. Minimal posterior pleural thickening bilaterally. Desmond Jaimes MD Objective Remarks General: No acute distress. Heart: Regular rate and rhythm. No murmur. Lungs: Clear to auscultation bilaterally. No wheezes, rales, or rhonchi. Breathing is nonlabored. Abdomen: Soft, nontender, nondistended. Extremities: No lower extremity edema. Psych: Alert, oriented. Procedures None Urinary Catheter: No Vascular Central Line Catheter: Yes Assessment to: Continue Date of Insertion: Sep 21, 2017 Line: PICC A/P Assessment and Plan 1. Sepsis: Secondary to C. difficile colitis. Appreciate infectious disease recommendations. Continue IV Flagyl, oral vancomycin. Leukocytosis improved. 2. Anemia, thrombocytopenia, AML: Appreciate hematology/oncology recommendations. H/H stable. 3. Respiratory insufficiency: Continue supplemental oxygen, bronchodilators. 4. C. difficile colitis: Diarrhea has improved. Continue IV Flagyl, oral vancomycin. Appreciate GI, infectious disease recommendations. 5. Nausea/vomiting: Not controlled by Zofran. Patient also receiving Reglan. Had adverse reaction to Phenergan. Tigan did not help. Haldol added by palliative care. Continue scopolamine patch. Still having symptoms despite multiple anti-emetics. 6. GI prophylaxis: Pepcid. 7. Atrial fibrillation with RVR: Rate becomes elevated with agitation/anxiety. No anticoagulation due to thrombocytopenia. Cardiology consult is pending. 8. DVT prophylaxis: SCDs. Avoid chemical prophylaxis secondary to anemia. 9. Hypokalemia: Improved. Monitor labs. Discharge Planning Transfer to [facility]/oncology when a bed is available. Jordin Elmore MD Oct 08, 2017 08:46
[2017-10-08] MEDS: RIFAXIMIN 550 MG TAB PO SCH ×2 (09:46→21:00)
[2017-10-08] MEDS: METOPROLOL TARTRATE 25 MG TAB PO SCH ×2 (09:46→21:01)
[2017-10-08] MEDS: PANTOPRAZOLE SODIUM 40 MG VIAL IV PUSH SCH ×2 (09:46→21:00)
[2017-10-08] MEDS: SUCRALFATE 1 GM/10 ML CUP PO SCH ×3 (09:46→21:00)
[2017-10-08] MEDS: NYSTATIN SUSP 500,000 U/5 ML CUP SWISH-SWAL SCH ×3 (09:47→21:00)
[2017-10-08] MEDS: metroNIDAZOLE 500 MG INJ 100 ML IV SCH (09:47)
[2017-10-08] MEDS: VANCOMYCIN 25 MG/ML SUSP 100 ML BOTTLE PO SCH ×3 (09:50→21:00)
--- NOTE | 2017-10-08 16:33 | HHI.GIFU ---
Subjective Remarks She is resting in the bed Weak, fatigue Answers simple questions with short answers secondary to her weakness and fatigue She states not eating no appetite (Constance Ramon) Objective Vitals I&O Vital Signs Date Time Temp Pulse Resp B/P (MAP) Pulse Ox O2 Delivery O2 Flow Rate FiO2 10/08/17 12:00 99.6 83 21 126/72 (90) 93 10/08/17 12:00 83 10/08/17 08:00 93 10/08/17 08:00 98.7 93 25 117/58 (77) 10/08/17 04:00 95 10/08/17 04:00 99.0 95 23 127/77 (94) 10/08/17 00:00 98.7 131 22 104/70 (81) 10/08/17 00:00 131 10/07/17 22:00 133 10/07/17 20:00 126 10/07/17 20:00 98.5 126 14 109/71 (84) 99 I/O 10/07/17 10/07/17 10/07/17 10/08/17 10/08/17 10/08/17 07:00 15:00 23:00 07:00 15:00 23:00 Intake Total 440 ml 880 ml 360 ml Balance 440 ml 880 ml 360 ml Intake Oral 120 ml 480 ml 360 ml IV Total 320 ml 400 ml # Voids 3 6 3 # Bowel Movements 0 0 0 Laboratory Laboratory Tests Test 10/07/17 22:31 10/08/17 05:16 Potassium Level 4.1 3.8 White Blood Count 12.3 Red Blood Count 2.66 Hemoglobin 8.2 Hematocrit 24.8 Mean Corpuscular Volume 93.2 Mean Corpuscular Hemoglobin 31.0 Mean Corpuscular Hemoglobin Concent 33.2 Red Cell Distribution Width 19.4 Platelet Count 25 Mean Platelet Volume 12.1 Neutrophils (%) (Auto) 2.6 Lymphocytes (%) (Auto) 11.1 Monocytes (%) (Auto) 86.2 Eosinophils (%) (Auto) 0.1 Basophils (%) (Auto) 0.0 Neutrophils # (Auto) 0.3 Lymphocytes # (Auto) 1.4 Monocytes # (Auto) 10.6 Eosinophils # (Auto) 0.0 Basophils # (Auto) 0.0 CBC Comment AUTO DIFF Differential Total Cells Counted 100 Neutrophils % (Manual) 6 Lymphocytes % 7 Basophils % 1 Neutrophils # (Manual) 1.1 Myelocytes 3 Differential Comment FINAL DIFF MANUAL Blastocytes 83 Platelet Estimate LOW Platelet Morphology Comment GIANT Ovalocytes 1+ Brock Cells 1+ Acanthocytes 1+ Blood Urea Nitrogen 3 Creatinine 0.87 Random Glucose 101 Total Protein 4.7 Calcium Level 7.2 Magnesium Level 1.7 Sodium Level 141 Chloride Level 108 Carbon Dioxide Level 25.0 Anion Gap 8 Estimat Glomerular Filtration Rate 65 Protein Corrected Calcium 8.5 Date/Time Source Procedure Growth Status 10/02/17 12:00 Blood Other Aerobic Blood Culture - Final NO GROWTH IN 5 DAYS Complete 10/02/17 12:00 Blood Other Anaerobic Blood Culture - Final NO GROWTH IN 5 DAYS Complete 10/02/17 14:00 Stool Stool Stool Occult Blood (ALVARADO) - Final HEMOCCULT NEGATIVE Complete 10/01/17 15:14 Urine Clean Catch Urine Culture - Final 50-100,000 CFU/ML MIXED GRAM POSITIVE... Complete Imaging Last Impressions Chest X-Ray 10/05/17 0000 Signed Impressions: Service Date/Time: Thursday, October 05, 2017 13:32 - CONCLUSION: Support apparatus good position, no pneumothorax. 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 Moderate ostial RUBY stenosis. Findings of mild proximal colitis. Raoul Denton MD CT Angiography 10/01/17 1251 Signed Impressions: Service Date/Time: Sunday, October 01, 2017 14:19 - CONCLUSION: 1. No evidence of pulmonary embolism. 2. Focal infiltrate within the left upper lobe posteriorly consistent with possible pneumonia. 3. Scattered atelectatic changes bilaterally. 4. Stable aneurysmal dilatation of the ascending thoracic aorta measuring 4.7 cm in greatest dimension. 5. Stable cardiomegaly and coronary artery calcifications. 6. Minimal posterior pleural thickening bilaterally. Desmond Jaimes MD Physical Exam HEENT: Normocephalic; atraumatic CHEST: Even/unlabored CARDIAC: RRR ABDOMEN: Soft, nontender, bowel sounds active SKIN: Normal; no rash; no jaundice. SCREEN CUTTER AND TRIMMER: No focal deficits; alert and oriented times three. (Constance Ramon) Assessment and Plan Plan - anemia - hgb was 6.6 on admission, currently 8.2, no obvious source bleeding , had chemo 09/26/17 and per oncology note Had EGD 09/21/17 that found mild esophagitis, severe gastritis, no bx done d/t low PLT. last colonoscopy [address] Calderón found "inflammation." - CT on 10/03/17 shows poss mild colitis. + c diff on PO vanc blood transfusion this admission - epigastric pain - EGD as above. esophagitis, gastritis couldn't get bx. will check h pylori. Currently having generalized abdominal pain - n/v - persistent, 2/2 chemo? EGD as above. - leukocytosis - ?leukemia. + c diff on PO vanc, denies diarrhea. afebrile. ID consulted. , Current CBC on 10/08/17 is 12.3 (2/6) Pt with some nausea this morning, denies emesis. Reports small BM today, stool being sent for H. Pylori antigen and Hemoccult. No obvious GIB at this time. H/H currently 10.2/29.3 S/P 2 U PRBCs yesterday. She has been seen by oncology who addressed possible hospitce and pt reports she is not ready for this transition. She remains on oral Vanco and IV Flagyl. Remains on clear liquids, poor appetite. Per oncology, nutrition should be encourage for pt to gain strength. CT abdomen W pelvis W IV contrast (10/01) noted --> Minimal bowel wall thickening descending colon it could be an early mild colitis. No other etiology for abdominal pain is evident. (10/03/17) denies abd pain, diarrhea. has some nausea no vomiting. CTA 10/03/ showed mild colitis, mild ostial celiac stenosis, moderate SMA stenosis, moderate ostial RUBY stenosis. + c diff, on abx. stool heme negative. HH mild decrease no bleeding. (10/04/17) no abd pain. + liquid stool today. nauseous, is tolerating Ensure. HH stable (10/05) Pt with continued nausea and dry heaves. Tigan started today. Continued Reglan and Zofran PRN. Labs reveal elevated TSH-89.8, pt being started on Levothyroxine tomorrow. Continued abdominal pain, she is unable to localize to specific area. Remains with some diarrhea , but seems to be improving. Vanco DCd yesterday, now on IV Flagyl and Rifaximin. Stool H. Pylori still pending. Anemia- drop in H/H currently 9.9/29.7, last transfused Oct 01. Hemoccult negative on Oct 02. Random serum cortisol level 17.2 at 9:45 at night, slight increase possibly related to thyroid dysfunction. (10/06) Pt with continued nausea and dry heaves, no emesis. Tigan now DCd. Possibly anxiety as causative factor for dry heaving. Haldol ordered per attending. Also has Reglan and Zofran as needed. Ativan for anxiety. Reports BMs more formed. Denies blood in stool, last BM was yesterday. Stool H. Pylori antigen still pending. IV Flagyl, oral Vanco, Xifaxan. OK to downgrade out of ICU from a GI standpoint. Will continue to monitor. (10/07) --> Pt reports continued nausea, however, no dry heaves since last night. She does not notice more improvement with nausea with any specific medications. Currently has Scopolamine patch, Haldol, Reglan, Carafate, Protonix, Zofran, Ativan. BMs are more formed and not as frequent. Remains on Vanco and Flagyl. 10/08/17, patient is very weak, fatigued, states she is not eating and has no appetite. Skin pale jeff complexion Still has some generalized abdominal pain to light palpation. Questionable need for PEG tube if patient continues chemotherapy treatments and is not eating. Appreciate ID input PLAN - Continue antiemetics - IV Flagyl - Rifaximin - Oral Vanco - Full liquid diet as tolerated and encourage patient to take small bites and drinks of liquids - Monitor H/H, currently 8.2 - H Pylori stool antigen steel still pending - Further recommendations to follow based on patient's symptoms Supportive care Pt seen by myself and Dr. Collier and this note is written on his behalf (Constance Ramon) Physician Comments Patient seen and examined Agree with above Continue with current supportive care Monitor labs (Santana Collier MD) Constance Ramon Oct 08, 2017 16:33 Santana Collier MD Oct 08, 2017 18:43
--- NOTE | 2017-10-08 16:56 | HHI.HCPN ---
Reason for visit a. To assist with evaluation and management of symptoms including: Nausea, weakness, diarrhea b. To assist medical decision maker(s) with: better understanding of current medical conditions; weighing benefits/burdens of medical treatment options; making medical treatment decisions. Subjective/Interval History Less nauseated today. Currently receiving scopolamine, Reglan 10 mg every 8 hours, Carafate 1 g before meals and at bedtime, Protonix 40 mg IV twice a day, Zofran 4 mg every 6 hours and Haldol as needed for nausea. She was previously on dronabinol, however that has not been resumed as yet. Her diarrhea is decreasing and is able to take her vancomycin since her nausea is better controlled. She has had no bowel movement for 2 days. She is eating very minimally and states that even the thought of food makes her nauseous. Her labs continue to see show pancytopenia, now with leukocytosis. WBC 12.3, hemoglobin 8.2, hematocrit 24.8, platelets 25, neutrophils 0.3. Chemistry shows sodium 141, potassium 3.8, BUN 3, creatinine 0.87, total protein 4.7. She remains in atrial fibrillation, however the rate is now better controlled. IV Cardizem has been stopped. She remains on low-dose metoprolol. . Advance Directives Living Will: Copy in medical record Health Care Surrogate: Copy in medical record Durable Power of Video Game Creator: Never completed Advance Directive Specifics Date completed: 03/30/17 Health Care Surrogate(s): HCS/son Sarthak Miguel Alternate/daughter Jerri Miguel . . Documented care wishes: Living will on chart. . Objective Vital Signs Date Time Temp Pulse Resp B/P (MAP) Pulse Ox O2 Delivery O2 Flow Rate FiO2 10/08/17 12:00 99.6 83 21 126/72 (90) 93 10/08/17 12:00 83 10/08/17 08:00 93 10/08/17 08:00 98.7 93 25 117/58 (77) 10/08/17 04:00 95 10/08/17 04:00 99.0 95 23 127/77 (94) 10/08/17 00:00 98.7 131 22 104/70 (81) 10/08/17 00:00 131 10/07/17 22:00 133 2/11/18 20:00 126 10/07/17 20:00 98.5 126 14 109/71 (84) 99 Intake & Output 10/08/17 10/08/17 07:00 19:00 Intake Total 360 ml Balance 360 ml Intake Oral 360 ml # Voids 3 # Bowel Movements 0 Physical Exam CONSTITUTIONAL/GENERAL: This is an adequately nourished patient, in no apparent distress. TUBES/LINES/DRAINS: LSC central line. Right upper arm PICC ENT: Hearing grossly normal. Nose without bleeding or purulent drainage. Throat without visible erythema, exudates, masses, or lesions. NECK: Trachea midline. Supple, nontender. No palpable thyroid enlargement or nodularity. CARDIOVASCULAR: Regular rate and rhythm without murmurs, gallops, or rubs. No JVD. Peripheral pulses symmetric. RESPIRATORY/CHEST: Symmetric, unlabored respirations. Clear to auscultation. Breath sounds equal bilaterally. No wheezes, rales, or rhonchi. GASTROINTESTINAL: Abdomen soft, non-tender, nondistended. Bowel sounds present. GENITOURINARY: Without palpable bladder distension. MUSCULOSKELETAL: Extremities without clubbing, cyanosis, or edema. No joint tenderness or effusion noted. No calf tenderness. No mottling or clubbing. LYMPHATICS: No palpable cervical or supraclavicular adenopathy. NEUROLOGICAL: Awake and alert. Motor and sensory grossly within normal limits. Follows commands. Cognitively sharp. Moves all extremities. PSYCHIATRIC: Anxious, cooperative. . Diagnostic Tests Laboratory Laboratory Tests Test 10/06/17 03:30 10/07/17 06:22 10/07/17 22:31 10/08/17 05:16 White Blood Count 10.0 TH/MM3 (4.0-11.0) 9.6 TH/MM3 (4.0-11.0) 12.3 TH/MM3 (4.0-11.0) Red Blood Count 2.87 MIL/MM3 (4.00-5.30) 2.83 MIL/MM3 (4.00-5.30) 2.66 MIL/MM3 (4.00-5.30) Hemoglobin 9.0 GM/DL (11.6-15.3) 8.9 GM/DL (11.6-15.3) 8.2 GM/DL (11.6-15.3) Hematocrit 26.0 % (35.0-46.0) 26.3 % (35.0-46.0) 24.8 % (35.0-46.0) Mean Corpuscular Volume 90.8 FL (80.0-100.0) 93.0 FL (80.0-100.0) 93.2 FL (80.0-100.0) Mean Corpuscular Hemoglobin 31.5 PG (27.0-34.0) 31.4 PG (27.0-34.0) 31.0 PG (27.0-34.0) Mean Corpuscular Hemoglobin Concent 34.6 % (32.0-36.0) 33.7 % (32.0-36.0) 33.2 % (32.0-36.0) Red Cell Distribution Width 18.9 % (11.6-17.2) 19.2 % (11.6-17.2) 19.4 % (11.6-17.2) Platelet Count 37 TH/MM3 (150-450) 33 TH/MM3 (150-450) 25 TH/MM3 (150-450) Mean Platelet Volume 11.2 FL (7.0-11.0) 11.9 FL (7.0-11.0) 12.1 FL (7.0-11.0) CBC Comment AUTO DIFF AUTO DIFF AUTO DIFF Differential Total Cells Counted 100 100 100 Neutrophils % (Manual) 3 % (16-70) 9 % (16-70) 6 % (16-70) Lymphocytes % 15 % (9-44) 10 % (9-44) 7 % (9-44) Monocytes % 14 % (0-8) 1 % (0-8) Neutrophils # (Manual) 0.9 TH/MM3 (1.8-7.7) 0.9 TH/MM3 (1.8-7.7) 1.1 TH/MM3 (1.8-7.7) Metamyelocytes 1 % (0-1) Myelocytes 3 % (0-0) 3 % (0-0) Promyelocytes 2 % (0-0) Differential Comment FINAL DIFF MANUAL FINAL DIFF MANUAL FINAL DIFF MANUAL Blastocytes 62 % (0-0) 80 % (0-0) 83 % (0-0) Platelet Estimate LOW (NORMAL) LOW (NORMAL) LOW (NORMAL) Platelet Morphology Comment ENLARGED (NORMAL) NORMAL (NORMAL) GIANT (NORMAL) Acanthocytes OCC (NORMAL) OCC (NORMAL) 1+ (NORMAL) Blood Urea Nitrogen 3 MG/DL (7-18) 3 MG/DL (7-18) 3 MG/DL (7-18) Creatinine 0.81 MG/DL (0.50-1.00) 0.87 MG/DL (0.50-1.00) 0.87 MG/DL (0.50-1.00) Random Glucose 93 MG/DL (74-106) 99 MG/DL (74-106) 101 MG/DL (74-106) Total Protein 4.8 GM/DL (6.4-8.2) 4.4 GM/DL (6.4-8.2) 4.7 GM/DL (6.4-8.2) Calcium Level 7.4 MG/DL (8.5-10.1) 7.4 MG/DL (8.5-10.1) 7.2 MG/DL (8.5-10.1) Phosphorus Level 2.8 MG/DL (2.5-4.9) Magnesium Level 1.8 MG/DL (1.5-2.5) 1.7 MG/DL (1.5-2.5) Sodium Level 143 MEQ/L (136-145) 140 MEQ/L (136-145) 141 MEQ/L (136-145) Potassium Level 3.5 MEQ/L (3.5-5.1) 3.0 MEQ/L (3.5-5.1) 4.1 MEQ/L (3.5-5.1) 3.8 MEQ/L (3.5-5.1) Chloride Level 110 MEQ/L (98-107) 106 MEQ/L (98-107) 108 MEQ/L (98-107) Carbon Dioxide Level 27.2 MEQ/L (21.0-32.0) 27.9 MEQ/L (21.0-32.0) 25.0 MEQ/L (21.0-32.0) Anion Gap 6 MEQ/L (5-15) 6 MEQ/L (5-15) 8 MEQ/L (5-15) Estimat Glomerular Filtration Rate 70 ML/MIN (>89) 65 ML/MIN (>89) 65 ML/MIN (>89) Protein Corrected Calcium 8.7 MG/DL (8.5-10.1) 9.0 MG/DL (8.5-10.1) 8.5 MG/DL (8.5-10.1) Ovalocytes 1+ (NORMAL) 1+ (NORMAL) Neutrophils (%) (Auto) 2.6 % (16.0-70.0) Lymphocytes (%) (Auto) 11.1 % (9.0-44.0) Monocytes (%) (Auto) 86.2 % (0.0-8.0) Eosinophils (%) (Auto) 0.1 % (0.0-4.0) Basophils (%) (Auto) 0.0 % (0.0-2.0) Neutrophils # (Auto) 0.3 TH/MM3 (1.8-7.7) Lymphocytes # (Auto) 1.4 TH/MM3 (1.0-4.8) Monocytes # (Auto) 10.6 TH/MM3 (0-0.9) Eosinophils # (Auto) 0.0 TH/MM3 (0-0.4) Basophils # (Auto) 0.0 TH/MM3 (0-0.2) Basophils % 1 % (0-2) Brock Cells 1+ (NORMAL) . Result Diagram: 10/08/1716 10/08/17 0516 Microbiology Microbiology Date/Time Source Procedure Growth Status 10/02/17 12:00 Blood Other Aerobic Blood Culture - Final NO GROWTH IN 5 DAYS Complete 10/02/17 12:00 Blood Other Anaerobic Blood Culture - Final NO GROWTH IN 5 DAYS Complete 10/02/17 14:00 Stool Stool Stool Occult Blood ([facility]) - Final HEMOCCULT NEGATIVE Complete 10/01/17 15:14 Urine Clean Catch Urine Culture - Final 50-100,000 CFU/ML MIXED GRAM POSITIVE... Complete . Imaging Last Impressions Chest X-Ray 10/05/17 0000 Signed Impressions: Service Date/Time: Thursday, October 05, 2017 13:32 - CONCLUSION: Support apparatus good position, no pneumothorax. 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 Moderate ostial RUBY stenosis. Findings of mild proximal colitis. Raoul Denton MD CT Angiography 10/01/17 1251 Signed Impressions: Service Date/Time: Sunday, October 01, 2017 14:19 - CONCLUSION: 1. No evidence of pulmonary embolism. 2. Focal infiltrate within the left upper lobe posteriorly consistent with possible pneumonia. 3. Scattered atelectatic changes bilaterally. 4. Stable aneurysmal dilatation of the ascending thoracic aorta measuring 4.7 cm in greatest dimension. 5. Stable cardiomegaly and coronary artery calcifications. 6. Minimal posterior pleural thickening bilaterally. Desmond Jaimes MD . Assessment and Plan Disease Oriented Problem List: (1) AML (acute myeloid leukemia) (2) Debility (3) Sepsis Symptom Scale: (1) Nausea 0-10 Scale: Unable to quantify (continuous nausea, spitting up frequently without significant emesis, in spite of multiple medications.) (2) Weakness 0-10 Scale: Unable to quantify (continued debility from poor performance status likely due to multiple comorbidities and side effects of chemotherapy.) (3) Diarrhea 0-10 Scale: Unable to quantify (recurrent C. difficile, having difficulty tolerating oral vancomycin due to nausea.) Pertinent Non-Medical Issues Psychosocial:Originally from [place]. , has 2 adult children. 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 Spiritual:Zoroastrian biju. Legal: Living will and designation of healthcare surrogate completed. Ethical issues impacting care:No ethical issues identified. . Important Contacts [facility]/son Sarthak Miguel daughter Jerri Miguel . . Prognosis Her prognosis is poor. She has been diagnosed with acute myeloid leukemia and per my discussion with oncology, even with treatment, her lifespan is likely to be less than a year. Without therapy, 3-6 months. 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 Without treatment her sepsis is likely to continue until hemodynamic compromise and possible . . Code Status: Full Code Plan PLAN: Legal decision maker: He is currently capacitated to make her own decisions. Goals: Continuing to pursue chemotherapy and full resuscitative treatment. CODE STATUS: FULL CODE SYMPTOMS: * Nausea: She states that nausea started right after she initiated chemotherapy , but she defers to her physician as to whether to continue chemotherapy. She has failed treatment with Tigan, Reglan, lorazepam, Protonix, Zofran, Carafate. I discussed the possibility of using Haldol 0.5-1 mg IV 6 hours as needed for nausea with Dr. Elmore, her attending physician, and he agreed to add that to her regimen as all other treatments have failed. She has received 1 dose so far with minimal relief. She was receiving dronabinol 5 mg twice a day@ 11 AM and 1600. Would recommend resuming that. * Weakness: This is multi-factorial to include AML, chemotherapy and debility. She is unable to consume food or water due to her nausea which is contributing to her weakness. First goal being to control the nausea, medications are being adjusted as above. She is improving slightly with the addition of scopolamine and taking small amounts of fluid. Oncology expressed concern regarding her lack of mobility and poor nutritional status with regards to her potential for improvement. If she remains this weak, she may not be able to continue Dacogen therapy. * Diarrhea: Stool culture was positive for C. difficile. With better nausea control she has been able to take her vancomycin and diarrhea has decreased to no episodes in the last 2 days. No further recommendations at this time. Palliative care will continue to follow the patient during hospital course as condition evolves, to assist patient/decision-maker with understanding of their medical conditions, weighing benefits/burdens of treatment options, for clarification of goals of treatment. Additionally will assist with any symptoms of palliative concern. . Attestation To help prompt me to consider important information that might be impacting today's encounter and assessment, information from prior notes written by myself or my colleagues may have been "brought forward" into today's note. My signature on this note, however, is an attestation that I personally performed the exam, history, and/or decision-making noted today, and, unless otherwise indicated, the interactions with patient, family, and staff as well as the review of records all occurred today. I also attest that the listed assessment and stated plan reflect my best clinical judgment today based on the combination of historical information, prior notes, and today's exam/ interactions. When time spent is documented, it refers only to time spent today by the signer, or if indicated, combined time spent today by collaborating physician/nurse practitioner. . Veronica Grant Oct 08, 2017 4:56 pm
[2017-10-08] MEDS: D5-NS + KCL 20 MEQ INJ 1,000 ML IV SCH (17:46)
[2017-10-08] MEDS: LORazepam 0.5 MG TAB PO PRN (21:01)
[2017-10-09] VITALS: PULSE 117; RESP 11; TEMP 98.7
[2017-10-09] MEDS: INSULIN NovoLIN REGULAR SUPPLEMENTAL SCALE SQ SCH ×4 (03:00→21:00)
[2017-10-09 04:00] VITALS: PULSE 121; PULSE 122; RESP 13
[2017-10-09] MEDS: CHLORHEXIDINE GLUCONATE 2 % 1 PACK (2 CLOTHS) TOP SCH (04:00)
[2017-10-09] MEDS: MORPHINE SULFATE 2 MG/ML INJ IV PUSH PRN ×4 (05:44→22:54)
[2017-10-09] MEDS: ONDANSETRON HCL 4 MG/2 ML VIAL IV PUSH SCH ×5 (05:44→22:51)
[2017-10-09] MEDS: metroNIDAZOLE 500 MG INJ 100 ML IV SCH ×4 (05:45→22:51)
[2017-10-09] MEDS: METOCLOPRAMIDE HCL 10 MG/2 ML VIAL IM SCH ×3 (05:46→22:00)
[2017-10-09] MEDS: LEVOTHYROXINE SODIUM 25 MCG TAB PO SCH (06:00)
[2017-10-09 08:00] VITALS: BP 108/60; PULSE 85; RESP 15; TEMP 99; O2SAT 94
[2017-10-09 08:09] LABS: HEMATOCRIT 25.9 % (35.0-46.0); MEAN CELL VOLUME 91.9 FL (80.0-100.0); MEAN CORPUSCULAR HEMOGLOBIN 32.1 PG (27.0-34.0); MEAN CORPUSCULAR HGB CONC 34.9 % (32.0-36.0); MEAN PLATELET VOLUME 11.5 FL (7.0-11.0); PLATELET COUNT 25 TH/MM3 (150-450); RED BLOOD COUNT 2.82 MIL/MM3 (4.00-5.30); RED CELL DISTRIBUTION WIDTH 19.5 % (11.6-17.2)
[2017-10-09] MEDS: VANCOMYCIN 25 MG/ML SUSP 100 ML BOTTLE PO SCH ×4 (08:29→21:00)
[2017-10-09] MEDS: NYSTATIN SUSP 500,000 U/5 ML CUP SWISH-SWAL SCH ×4 (08:29→21:00)
[2017-10-09] MEDS: PANTOPRAZOLE SODIUM 40 MG VIAL IV PUSH SCH ×2 (08:29→21:00)
[2017-10-09] MEDS: SUCRALFATE 1 GM/10 ML CUP PO SCH ×4 (08:29→21:00)
[2017-10-09 08:38] LABS: BICARBONATE 27.6 MEQ/L (21.0-32.0); CALCIUM 7.4 MG/DL (8.5-10.1); CREATININE 0.82 MG/DL (0.50-1.00)
[2017-10-09] MEDS: RIFAXIMIN 550 MG TAB PO SCH ×2 (08:49→21:00)
[2017-10-09] MEDS: METOPROLOL TARTRATE 25 MG TAB PO SCH ×2 (08:49→21:00)
[2017-10-09 08:52] LABS: BLASTS 82 % (0-0); LYMPHOCYTES 14 % (9-44); NEUTROPHIL # MANUAL DIFF 0.6 TH/MM3 (1.8-7.7); POLYS (SEG NEUTROPHILS) 4 % (16-70)
[2017-10-09 08:53] LABS: ACANTHOCYTES OCC (NORMAL)
[2017-10-09 08:54] LABS: OVALOCYTES 1+ (NORMAL)
--- NOTE | 2017-10-09 09:00 | HHI.PR ---
Subjective Remarks The patient said that she was still nauseous. She has not vomited in 3 days. She has not been eating much. She says abdominal pain is better. She denies diarrhea. Objective Vitals Vital Signs Date Time Temp Pulse Resp B/P (MAP) Pulse Ox O2 Delivery O2 Flow Rate FiO2 10/09/17 04:00 122 10/09/17 04:00 121 13 10/09/17 00:00 117 10/09/17 00:00 98.7 117 11 10/08/17 22:00 119 10/08/17 20:00 123 10/08/17 20:00 98.3 123 12 10/08/17 16:00 77 10/08/17 16:00 98.7 77 13 120/60 (80) 10/08/17 12:00 99.6 83 21 126/72 (90) 93 10/08/17 12:00 83 I/O 10/08/17 10/08/17 10/08/17 10/09/17 10/09/17 10/09/17 07:00 15:00 23:00 07:00 15:00 23:00 Intake Total 360 ml 250 ml Balance 360 ml 250 ml Intake Oral 360 ml 250 ml # Voids 3 4 # Bowel Movements 0 1 0 Result Diagram: 10/09/17 0600 10/09/17 0600 Imaging Last Impressions Chest X-Ray 10/05/17 0000 Signed Impressions: Service Date/Time: Thursday, October 05, 2017 13:32 - CONCLUSION: Support apparatus good position, no pneumothorax. 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 Moderate ostial RUBY stenosis. Findings of mild proximal colitis. Raoul Denton MD CT Angiography 10/01/17 1251 Signed Impressions: Service Date/Time: Sunday, October 01, 2017 14:19 - CONCLUSION: 1. No evidence of pulmonary embolism. 2. Focal infiltrate within the left upper lobe posteriorly consistent with possible pneumonia. 3. Scattered atelectatic changes bilaterally. 4. Stable aneurysmal dilatation of the ascending thoracic aorta measuring 4.7 cm in greatest dimension. 5. Stable cardiomegaly and coronary artery calcifications. 6. Minimal posterior pleural thickening bilaterally. Desmond Jaimes MD Objective Remarks General: No acute distress. HEENT: NC, AT. Heart: Irregularly irregular. No murmur. Lungs: Clear to auscultation bilaterally. No wheezes, rales, or rhonchi. Breathing is nonlabored. Abdomen: Soft, nontender, nondistended. Extremities: No lower extremity edema. Neuro: Alert, oriented. Psych: Mood and affect appropriate. Procedures None Medications and IVs Current Medications Medications (Trade) Dose Ordered Sig/Tylor Route Start Time Stop Time Status Last Admin (NS Flush) 2 ml UNSCH PRN IV FLUSH 10/01/17 12:45 10/03/17 08:27 (Duoneb Neb) 1 ampule Q2HR NEB PRN INH 10/01/17 14:00 Miscellaneous Information 1 Q361D XX 10/01/17 14:00 (Chlorhexidine 2% Cloth) Taper DAILY@04 TOP 10/02/17 04:00 09/28/18 03:59 10/08/17 03:36 (Chlorhexidine 2% Cloth) 3 pack UNSCH PRN TOP 10/01/17 14:00 Potassium Chloride 100 ml @ 50 mls/hr Q2H PRN IV 10/01/17 15:00 10/07/17 13:38 Potassium Chloride 100 ml @ 50 mls/hr Q2H PRN IV 10/01/17 15:00 (K-Lyte Cl Eff) 50 meq UNSCH PRN PO 10/01/17 15:00 Potassium Chloride 100 ml @ 25 mls/hr UNSCH PRN IV 10/01/17 15:00 10/02/17 15:36 Potassium Chloride 100 ml @ 50 mls/hr Q2H PRN IV 10/01/17 15:00 10/02/17 04:00 Magnesium Sulfate 4 gm/Sodium Chloride 100 ml @ 50 mls/hr UNSCH PRN IV 10/01/17 15:00 (Mag-Ox) 800 mg UNSCH PRN PO 10/01/17 15:00 Magnesium Sulfate 2 gm/Sodium Chloride 100 ml @ 50 mls/hr UNSCH PRN IV 10/01/17 15:00 10/03/17 11:31 (K-Phos) 2,000 mg Q4H PRN PO 10/01/17 15:00 Sodium Phosphate 30 mmol/Sodium Chloride 250 ml @ 42 mls/hr UNSCH PRN IV 10/01/17 15:00 10/03/17 13:13 (K-Phos) 2,000 mg UNSCH PRN PO/TUBE 10/01/17 15:00 Potassium Phosphate 30 mmol/ Sodium Chloride 260 ml @ 42 mls/hr UNSCH PRN IV 10/01/17 15:00 10/05/17 06:51 (D50w (Vial) Inj) 50 ml UNSCH PRN IV PUSH 10/01/17 15:00 10/04/17 20:25 (Glucagon Inj) 1 mg UNSCH PRN OTHER 10/01/17 15:00 (NovoLIN R SUPPLEMENTAL SCALE) 1 Q6H SQ 10/01/17 15:00 (Morphine Inj) 2 mg Q3H PRN IV PUSH 10/01/17 21:30 10/09/17 08:50 (Tylenol) 650 mg Q4H PRN PO 10/01/17 21:30 (Zofran Inj) 4 mg Q6HR IV PUSH 10/02/17 12:00 10/09/17 06:00 (Lopressor) 25 mg Q12HR PO 10/02/17 14:45 10/09/17 08:49 (Carafate Liq) 1 gm ACHS PO 10/03/17 12:00 10/09/17 08:29 (Protonix Inj) 40 mg Q12HR IV PUSH 10/03/17 11:30 10/09/17 08:29 (Ativan) 0.5 mg Q8H PRN PO 10/03/17 16:00 10/08/17 21:01 Diltiazem HCl 125 mg/Sodium Chloride 125 ml @ 5 mls/hr TITRATE PRN IV 10/04/17 08:30 (Mycostatin Liq) 5 ml QID SWISH-SWAL 10/04/17 18:00 10/09/17 08:29 (Reglan Inj) 10 mg Q8HR IM 10/04/17 22:00 10/09/17 05:46 (Xifaxan) 550 mg BID PO 10/04/17 21:00 10/09/17 08:49 Metronidazole 100 ml @ 100 mls/hr Q8H IV 10/04/17 16:00 10/09/17 08:28 (Synthroid) 25 mcg DAILY@0600 PO 10/06/17 06:00 10/08/17 06:03 (Haldol Inj) 0.5 mg Q6HR PRN IV PUSH 10/05/17 14:15 10/07/17 23:48 (Haldol Inj) 1 mg Q6HR PRN IV PUSH 10/05/17 16:15 10/07/17 16:05 (Vancomycin 25 Mg/ml Liq) 125 mg QID PO 10/06/17 10:00 10/09/17 08:29 Non-Formulary Medication 1 ea Q3D T-DERMAL 10/06/17 10:00 10/06/17 10:29 Potassium Chloride/Dextrose/ Sod Cl 1,000 ml @ 50 mls/hr Q20H IV 10/07/17 18:15 10/08/17 17:46 Date of Insertion: Sep 21, 2017 Line: PICC A/P Assessment and Plan Sepsis Secondary to C. difficile colitis. Appreciate infectious disease recommendations. No further diarrhea. - Continue IV Flagyl, oral vancomycin. Leukocytosis improved. Anemia/ thrombocytopenia/ AML Appreciate hematology/oncology recommendations. H/H stable. Plt count 25. - follow CBC. - follow up with oncology. Respiratory insufficiency Stable. - Continue supplemental oxygen, bronchodilators. Nausea/vomiting Not controlled by Zofran. Patient also receiving Reglan. Had adverse reaction to Phenergan. Tigan did not help. GI consult appreciated. - Haldol added by palliative care. - Continue scopolamine patch. - Pepcid. Atrial fibrillation with RVR Rate becomes elevated with agitation/anxiety. No anticoagulation due to thrombocytopenia. - Cardiology consult is still pending, requested on 10/04. Reconsult placed. DVT prophylaxis: SCDs. Avoid chemical prophylaxis secondary to anemia. Discharge Planning Transfer to oncology unit Balaji Escobedo DO Oct 09, 2017 09:00
[2017-10-09 09:25] LABS: CALCIUM-PROTEIN CORRECTED 8.7 MG/DL (8.5-10.1); TOTAL PROTEIN 4.8 GM/DL (6.4-8.2)
--- NOTE | 2017-10-09 09:34 | HHI.GIFU ---
Subjective Remarks Pt resting in bed. No diarrhea. Denies abd pain. Still with nausea. takes sips ensure, not much other intake. (Amanda Lawrence) Objective Vitals I&O Vital Signs Date Time Temp Pulse Resp B/P (MAP) Pulse Ox O2 Delivery O2 Flow Rate FiO2 10/09/17 04:00 122 10/09/17 04:00 121 13 10/09/17 00:00 117 10/09/17 00:00 98.7 117 11 10/08/17 22:00 119 10/08/17 20:00 123 10/08/17 20:00 98.3 123 12 10/08/17 16:00 77 10/08/17 16:00 98.7 77 13 120/60 (80) 10/08/17 12:00 99.6 83 21 126/72 (90) 93 10/08/17 12:00 83 I/O 10/08/17 10/08/17 10/08/17 10/09/17 10/09/17 10/09/17 07:00 15:00 23:00 07:00 15:00 23:00 Intake Total 360 ml 250 ml Balance 360 ml 250 ml Intake Oral 360 ml 250 ml # Voids 3 4 # Bowel Movements 0 1 0 Laboratory Laboratory Tests Test 10/09/17 06:00 White Blood Count 16.0 Red Blood Count 2.82 Hemoglobin 9.0 Hematocrit 25.9 Mean Corpuscular Volume 91.9 Mean Corpuscular Hemoglobin 32.1 Mean Corpuscular Hemoglobin Concent 34.9 Red Cell Distribution Width 19.5 Platelet Count 25 Mean Platelet Volume 11.5 CBC Comment AUTO DIFF Differential Total Cells Counted 100 Neutrophils % (Manual) 4 Lymphocytes % 14 Neutrophils # (Manual) 0.6 Differential Comment FINAL DIFF MANUAL Blastocytes 82 Platelet Estimate LOW Platelet Morphology Comment NORMAL Ovalocytes 1+ Acanthocytes OCC Blood Urea Nitrogen 3 Creatinine 0.82 Random Glucose 90 Total Protein 4.8 Calcium Level 7.4 Sodium Level 139 Potassium Level 3.9 Chloride Level 106 Carbon Dioxide Level 27.6 Anion Gap 5 Estimat Glomerular Filtration Rate 69 Protein Corrected Calcium 8.7 Date/Time Source Procedure Growth Status 10/02/17 12:00 Blood Other Aerobic Blood Culture - Final NO GROWTH IN 5 DAYS Complete 10/02/17 12:00 Blood Other Anaerobic Blood Culture - Final NO GROWTH IN 5 DAYS Complete 10/02/17 14:00 Stool Stool Stool Occult Blood (ALVARADO) - Final HEMOCCULT NEGATIVE Complete 10/01/17 15:14 Urine Clean Catch Urine Culture - Final 50-100,000 CFU/ML MIXED GRAM POSITIVE... Complete Imaging Last Impressions Chest X-Ray 10/05/17 0000 Signed Impressions: Service Date/Time: Thursday, October 05, 2017 13:32 - CONCLUSION: Support apparatus good position, no pneumothorax. 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 Moderate ostial RUBY stenosis. Findings of mild proximal colitis. Raoul Denton MD CT Angiography 10/01/17 1251 Signed Impressions: Service Date/Time: Sunday, October 01, 2017 14:19 - CONCLUSION: 1. No evidence of pulmonary embolism. 2. Focal infiltrate within the left upper lobe posteriorly consistent with possible pneumonia. 3. Scattered atelectatic changes bilaterally. 4. Stable aneurysmal dilatation of the ascending thoracic aorta measuring 4.7 cm in greatest dimension. 5. Stable cardiomegaly and coronary artery calcifications. 6. Minimal posterior pleural thickening bilaterally. Desmond Jaimes MD Physical Exam HEENT: Normocephalic; atraumatic CHEST: Even/unlabored CARDIAC: RRR ABDOMEN: Soft, mildly distended, nontender, bowel sounds active SKIN: Normal; no rash; no jaundice. PLASTIC WORKER: lethargic, oriented (Amanda Lawrence TUBE OPERATOR) Assessment and Plan Plan - anemia - hgb was 6.6 on admission, currently 8.2, no obvious source bleeding , had chemo 09/26/17 and per oncology note Had EGD 09/21/17 that found mild esophagitis, severe gastritis, no bx done d/t low PLT. last colonoscopy [address] Calderón found "inflammation." - CT on 10/03/17 shows poss mild colitis. + c diff on PO vanc blood transfusion this admission - epigastric pain - EGD as above. esophagitis, gastritis couldn't get bx. will check h pylori. Currently having generalized abdominal pain - n/v - persistent, 2/2 chemo? EGD as above. - leukocytosis - ?leukemia. + c diff on PO vanc, denies diarrhea. afebrile. ID consulted. , Current CBC on 10/08/17 is 12.3 (2/6) Pt with some nausea this morning, denies emesis. Reports small BM today, stool being sent for H. Pylori antigen and Hemoccult. No obvious GIB at this time. H/H currently 10.2/29.3 S/P 2 U PRBCs yesterday. She has been seen by oncology who addressed possible hospitce and pt reports she is not ready for this transition. She remains on oral Vanco and IV Flagyl. Remains on clear liquids, poor appetite. Per oncology, nutrition should be encourage for pt to gain strength. CT abdomen W pelvis W IV contrast (10/01) noted --> Minimal bowel wall thickening descending colon it could be an early mild colitis. No other etiology for abdominal pain is evident. (10/03/17) denies abd pain, diarrhea. has some nausea no vomiting. CTA 10/03/ showed mild colitis, mild ostial celiac stenosis, moderate SMA stenosis, moderate ostial RUBY stenosis. + c diff, on abx. stool heme negative. HH mild decrease no bleeding. (10/04/17) no abd pain. + liquid stool today. nauseous, is tolerating Ensure. HH stable (10/05) Pt with continued nausea and dry heaves. Tigan started today. Continued Reglan and Zofran PRN. Labs reveal elevated TSH-89.8, pt being started on Levothyroxine tomorrow. Continued abdominal pain, she is unable to localize to specific area. Remains with some diarrhea , but seems to be improving. Vanco DCd yesterday, now on IV Flagyl and Rifaximin. Stool H. Pylori still pending. Anemia- drop in H/H currently 9.9/29.7, last transfused Oct 01. Hemoccult negative on Oct 02. Random serum cortisol level 17.2 at 9:45 at night, slight increase possibly related to thyroid dysfunction. (10/06) Pt with continued nausea and dry heaves, no emesis. Tigan now DCd. Possibly anxiety as causative factor for dry heaving. Haldol ordered per attending. Also has Reglan and Zofran as needed. Ativan for anxiety. Reports BMs more formed. Denies blood in stool, last BM was yesterday. Stool H. Pylori antigen still pending. IV Flagyl, oral Vanco, Xifaxan. OK to downgrade out of ICU from a GI standpoint. Will continue to monitor. (10/07) --> Pt reports continued nausea, however, no dry heaves since last night. She does not notice more improvement with nausea with any specific medications. Currently has Scopolamine patch, Haldol, Reglan, Carafate, Protonix, Zofran, Ativan. BMs are more formed and not as frequent. Remains on Vanco and Flagyl. 10/08/17, patient is very weak, fatigued, states she is not eating and has no appetite. Skin pale jeff complexion Still has some generalized abdominal pain to light palpation. Questionable need for PEG tube if patient continues chemotherapy treatments and is not eating. Appreciate ID input 10/09/17 - still not much PO intake, main GI complaint is nausea. can try ensure clear and see if she will take more of that. says she takes sips chocolate ensure. HH stable PLAN - try ensure clear - full liquids - Continue antiemetics - IV Flagyl - Rifaximin - Oral Vanco - Monitor labs -Supportive care Pt seen by myself and Dr. Collier and this note is written on his behalf (Amanda Lawrence) Physician Comments Patient seen and examined Agree with above Continue current supportive care Monitor labs (Santana Collier MD) Amanda Lawrence Oct 09, 2017 09:34 Santana Collier MD Oct 09, 2017 15:39
[2017-10-09] MEDS: [UNRECOGNIZED DRUG - REMARK] T-DERMAL SCH (11:02)
[2017-10-09 12:00] VITALS: BP 112/64; PULSE 77; RESP 23; TEMP 99; O2SAT 95
[2017-10-09] MEDS: D5-NS + KCL 20 MEQ INJ 1,000 ML IV SCH (12:14)
--- NOTE | 2017-10-09 14:22 | PD.ONC.PN ---
Subjective Subjective Remarks Afebrile overnight. Late entry, patient seen at ~11AM. Patient still not eating or drinking, stating she feels nauseated still. Her daughter is at the bedside and asks if she could have a feeding tube. Ms. Richard immediately states she does not want a feeding tube. Daughter asks if we can try Marinol again. I ask patient if she would like to try Marinol again and she states "yes." Objective Data Date Time Temp Pulse Resp B/P (MAP) Pulse Ox O2 Delivery O2 Flow Rate FiO2 10/09/17 12:00 77 10/09/17 12:00 99.0 77 23 112/64 (80) 95 10/09/17 08:55 15 10/09/17 08:00 99.0 85 15 108/60 (76) 94 10/09/17 08:00 85 10/09/17 04:00 122 10/09/17 04:00 121 13 10/09/17 00:00 117 10/09/17 00:00 98.7 117 11 10/08/17 22:00 119 10/08/17 20:00 123 10/08/17 20:00 98.3 123 12 10/08/17 16:00 77 10/08/17 16:00 98.7 77 13 120/60 (80) Result Diagram: 10/09/17 0600 10/09/17 0600 Laboratory Results Laboratory Tests Test 10/09/17 06:00 White Blood Count 16.0 TH/MM3 Red Blood Count 2.82 MIL/MM3 Hemoglobin 9.0 GM/DL Hematocrit 25.9 % Mean Corpuscular Volume 91.9 FL Mean Corpuscular Hemoglobin 32.1 PG Mean Corpuscular Hemoglobin Concent 34.9 % Red Cell Distribution Width 19.5 % Platelet Count 25 TH/MM3 Mean Platelet Volume 11.5 FL CBC Comment AUTO DIFF Differential Total Cells Counted 100 Neutrophils % (Manual) 4 % Lymphocytes % 14 % Neutrophils # (Manual) 0.6 TH/MM3 Differential Comment FINAL DIFF MANUAL Blastocytes 82 % Platelet Estimate LOW Platelet Morphology Comment NORMAL Ovalocytes 1+ Acanthocytes OCC Blood Urea Nitrogen 3 MG/DL Creatinine 0.82 MG/DL Random Glucose 90 MG/DL Total Protein 4.8 GM/DL Calcium Level 7.4 MG/DL Sodium Level 139 MEQ/L Potassium Level 3.9 MEQ/L Chloride Level 106 MEQ/L Carbon Dioxide Level 27.6 MEQ/L Anion Gap 5 MEQ/L Estimat Glomerular Filtration Rate 69 ML/MIN Protein Corrected Calcium 8.7 MG/DL Administered Medications Medications (Trade) Dose Ordered Sig/Tylor Route PRN Reason Start Time Stop Time Status Last Admin Dose Admin Sodium Chloride (NS Flush) 2 ml UNSCH PRN IV FLUSH FLUSH AFTER USING IV ACCESS 10/01/17 12:45 10/03/17 08:27 Chlorhexidine Gluconate (Chlorhexidine 2% Cloth) Taper DAILY@04 TOP 10/02/17 04:00 09/28/18 03:59 10/08/17 03:36 Potassium Chloride 100 ml @ 50 mls/hr Q2H PRN IV For Potassium 2.8 - 3.2 mEq/L 10/01/17 15:00 10/07/17 13:38 Potassium Chloride 100 ml @ 25 mls/hr UNSCH PRN IV For Potassium 3.3 - 3.5 mEq/L 10/01/17 15:00 10/02/17 15:36 Potassium Chloride 100 ml @ 50 mls/hr Q2H PRN IV For Potassium 3.3 - 3.5 mEq/L 10/01/17 15:00 10/02/17 04:00 Magnesium Sulfate 2 gm/Sodium Chloride 100 ml @ 50 mls/hr UNSCH PRN IV For Magnesium 1.2 - 1.6 mg/dL 10/01/17 15:00 10/03/17 11:31 Sodium Phosphate 30 mmol/Sodium Chloride 250 ml @ 42 mls/hr UNSCH PRN IV For Phosphorus < 2.5 mg/dL 10/01/17 15:00 10/03/17 13:13 Potassium Phosphate 30 mmol/ Sodium Chloride 260 ml @ 42 mls/hr UNSCH PRN IV SEE LABEL COMMENTS 10/01/17 15:00 10/05/17 06:51 Dextrose (D50w (Vial) Inj) 50 ml UNSCH PRN IV PUSH HYPOGLYCEMIA-SEE COMMENTS 10/01/17 15:00 10/04/17 20:25 Morphine Sulfate (Morphine Inj) 2 mg Q3H PRN IV PUSH pain 6-10 10/01/17 21:30 10/09/17 08:50 Ondansetron HCl (Zofran Inj) 4 mg Q6HR IV PUSH 10/02/17 12:00 10/09/17 10:44 Metoprolol Tartrate (Lopressor) 25 mg Q12HR PO 10/02/17 14:45 10/09/17 08:49 Sucralfate (Carafate Liq) 1 gm ACHS PO 10/03/17 12:00 10/09/17 10:44 Pantoprazole Sodium (Protonix Inj) 40 mg Q12HR IV PUSH 10/03/17 11:30 10/09/17 08:29 Lorazepam (Ativan) 0.5 mg Q8H PRN PO ANXIETY 10/03/17 16:00 10/08/17 21:01 Nystatin (Mycostatin Liq) 5 ml QID SWISH-SWAL 10/04/17 18:00 10/09/17 12:23 Metoclopramide HCl (Reglan Inj) 10 mg Q8HR IM 10/04/17 22:00 10/09/17 12:37 Rifaximin (Xifaxan) 550 mg BID PO 10/04/17 21:00 10/09/17 08:49 Metronidazole 100 ml @ 100 mls/hr Q8H IV 10/04/17 16:00 10/09/17 08:28 Levothyroxine Sodium (Synthroid) 25 mcg DAILY@0600 PO 10/06/17 06:00 10/08/17 06:03 Haloperidol Lactate (Haldol Inj) 0.5 mg Q6HR PRN IV PUSH MILD NAUSEA OR VOMITING 10/05/17 14:15 10/07/17 23:48 Haloperidol Lactate (Haldol Inj) 1 mg Q6HR PRN IV PUSH SEVERE NAUSEA AND VOMITING 10/05/17 16:15 10/07/17 16:05 Vancomycin HCl (Vancomycin 25 Mg/ml Liq) 125 mg QID PO 10/06/17 10:00 10/09/17 12:23 Non-Formulary Medication 1 ea Q3D T-DERMAL 10/06/17 10:00 10/09/17 11:02 Potassium Chloride/Dextrose/ Sod Cl 1,000 ml @ 50 mls/hr Q20H IV 10/07/17 18:15 10/09/17 12:14 Objective Remarks GENERAL: Middle aged female, appears weak and malnourished, lying supine in bed with daughter at bedside. SKIN: Warm and dry. HEAD: Normocephalic. EYES: No injection or drainage. NECK: Supple, trachea midline. CARDIOVASCULAR: +S1/S2 RESPIRATORY: anterior atkins with rhonchi. GASTROINTESTINAL: Abdomen soft, non-tender, nondistended. EXTREMITIES: No cyanosis NEUROLOGICAL: awake, alert and oriented. normal speech. Assessment/Plan Assessment 67y/o female with AML, admitted with intractable nausea/vomiting. HPI (brought forward from initial consult for continuity of care): status post four cycles of Dacogen. She was initiated on treatment in February of 2017. has received four cycles thus far with the most recent cycle completed 7 prior to current admission. She presented to hospital three days after her most recent discharge. She was admitted to the hospital at that time with C-diff colitis. The patient reports symptoms of abdominal pain, nausea, inability tolerate oral intake and generalized weakness and fatigue. She was unable to care for herself at home even with the help of her daughter and was brought into [facility] last night. The patient was noted to be tachycardiac and hypotensive. She was assessed to have severe sepsis likely secondary to C-diff colitis and was admitted to the hospital for IV fluid hydration and antibiotic therapy. Plan 1. AML: s/p C4 Dacogen one week prior to current admission. no transfusion needed at present. 2. Nausea: on scheduled Zofran and scopolamine patch and has as needed compazine and ativan. does not want feeding tube. will start Marinol. 3. C. difficile colitis related sepsis: on IV Flagyl + PO Vanco. 4. A. fib with RVR; on Lopressor for rate control Disposition: Patient appears to me to be weaker d/t her lack of nutrition. I have encouraged her to try to eat. She is not interested in a feeding tube. I have discussed with her and her daughter that she will continue to decline if she does not receive adequate nutrition. Lidia Tracey Oct 09, 2017 14:22
[2017-10-09] MEDS: DRONABINOL 2.5 MG CAP PO SCH (15:44)
[2017-10-09 16:00] VITALS: BP 120/64; PULSE 122; RESP 24; TEMP 98.5; O2SAT 94
[2017-10-09] MEDS: RESP: ALBUTEROL 2.5 MG/IPRATROPIUM 0.5 MG NEB (PRN) INH (17:18)
--- NOTE | 2017-10-09 17:22 | HHI.HCPN ---
Reason for visit a. To assist with evaluation and management of symptoms including: Nausea, weakness b. To assist medical decision maker(s) with: better understanding of current medical conditions; weighing benefits/burdens of medical treatment options; making medical treatment decisions. Subjective/Interval History Has been nauseated all day. Vomiting this morning, clear/white liquid, per nurse. No recurrent diarrhea or stool today. Current medications for nausea include Marinol, scopolamine, Haldol, Reglan, Ativan and ondansetron. She previously had an adverse reaction to Phenergan. As she is receiving an anti- cholinergic, selective 5 Ht and dopamine receptor antagonists, anti-histamines are the only common anti-emetic class that she is currently not receiving. As she did not tolerate Phenergan, she may benefit from another H1 oneil, such as hydroxyzine, diphenhydramine or meclizine. Clinical data: * Laboratory: WBC 16.0, hemoglobin 9.0, hematocrit 25.9, platelets 25, sodium 139, potassium 3.9, BUN 3, creatinine 0.82. Total protein 4.8. On evaluation she is pale and appears ill. She is dyspneic and complaining of feeling short of breath. Telemetry reveals a tachycardic rate and she is mildly tachypneic. I asked the patient if she felt as if she might have choked a little bit on her emesis and she stated "yes, she had". Auscultation of her lungs reveals coarse breath sounds with wheezes throughout. At that time we discussed her wishes if her respiratory status would continue to decline and she stated she wanted everything "natural "with no feeding tubes, ventilators or CPR. I then reiterated, with the nurse, Ana, as a witness and asked the patient if she wanted to be a DO NOT RESUSCITATE status and she stated "yes". I told her I would enter the order as she requested. I then inquired as to her spiritual needs and she stated that her Imam had visited her and that she was receiving visits from her spiritual leaders. We also discussed the continuation of chemotherapy and she stated that Dr. Yarbrough had told her he was not going to give her any more chemotherapy due to her severe debility and inability to eat or drink. . Family/friend interactions No family or friends at bedside. . Advance Directives Living Will: Copy in medical record Health Care Surrogate: Copy in medical record Durable Power of Clark Driver: Never completed Advance Directive Specifics Date completed: 03/30/17 Health Care Surrogate(s): HCS/son Sarthak Miguel Alternate/daughter Jerri Miguel . . Documented care wishes: Living will on chart. . Objective Vital Signs Date Time Temp Pulse Resp B/P (MAP) Pulse Ox O2 Delivery O2 Flow Rate FiO2 10/09/17 12:00 77 10/09/17 12:00 99.0 77 23 112/64 (80) 95 10/09/17 08:55 15 10/09/17 08:00 99.0 85 15 108/60 (76) 94 10/09/17 08:00 85 10/09/17 04:00 122 10/09/17 04:00 121 13 10/09/17 00:00 117 10/09/17 00:00 98.7 117 11 10/08/17 22:00 119 10/08/17 20:00 123 10/08/17 20:00 98.3 123 12 Intake & Output 10/09/17 10/09/17 07:00 19:00 # Voids 4 # Bowel Movements 0 Physical Exam CONSTITUTIONAL/GENERAL: This is an adequately nourished patient, in mild distress. TUBES/LINES/DRAINS: LSC central line. Right upper arm PICC ENT: Hearing grossly normal. Nose without bleeding or purulent drainage. NECK: Trachea midline. Supple, nontender. No palpable thyroid enlargement or nodularity. CARDIOVASCULAR: S1, S2, regular rhythm, tachycardic rate, no rub murmur or gallop auscultated. RESPIRATORY/CHEST: Lung sounds coarse with wheezes throughout all anterior lung atkins. GASTROINTESTINAL: Abdomen soft, non-tender, mildly distended. Bowel sounds present. GENITOURINARY: Without palpable bladder distension. MUSCULOSKELETAL: Extremities without clubbing, cyanosis, or edema. No joint tenderness or effusion noted. No calf tenderness. No mottling or clubbing. LYMPHATICS: No palpable cervical or supraclavicular adenopathy. NEUROLOGICAL: Awake and alert. Motor and sensory grossly within normal limits. Follows commands. Cognitively sharp. Moves all extremities. PSYCHIATRIC: Anxious, cooperative. . Diagnostic Tests Laboratory Laboratory Tests Test 10/07/17 06:22 10/07/17 22:31 10/08/17 05:16 10/09/17 06:00 White Blood Count 9.6 TH/MM3 (4.0-11.0) 12.3 TH/MM3 (4.0-11.0) 16.0 TH/MM3 (4.0-11.0) Red Blood Count 2.83 MIL/MM3 (4.00-5.30) 2.66 MIL/MM3 (4.00-5.30) 2.82 MIL/MM3 (4.00-5.30) Hemoglobin 8.9 GM/DL (11.6-15.3) 8.2 GM/DL (11.6-15.3) 9.0 GM/DL (11.6-15.3) Hematocrit 26.3 % (35.0-46.0) 24.8 % (35.0-46.0) 25.9 % (35.0-46.0) Mean Corpuscular Volume 93.0 FL (80.0-100.0) 93.2 FL (80.0-100.0) 91.9 FL (80.0-100.0) Mean Corpuscular Hemoglobin 31.4 PG (27.0-34.0) 31.0 PG (27.0-34.0) 32.1 PG (27.0-34.0) Mean Corpuscular Hemoglobin Concent 33.7 % (32.0-36.0) 33.2 % (32.0-36.0) 34.9 % (32.0-36.0) Red Cell Distribution Width 19.2 % (11.6-17.2) 19.4 % (11.6-17.2) 19.5 % (11.6-17.2) Platelet Count 33 TH/MM3 (150-450) 25 TH/MM3 (150-450) 25 TH/MM3 (150-450) Mean Platelet Volume 11.9 FL (7.0-11.0) 12.1 FL (7.0-11.0) 11.5 FL (7.0-11.0) CBC Comment AUTO DIFF AUTO DIFF AUTO DIFF Differential Total Cells Counted 100 100 100 Neutrophils % (Manual) 9 % (16-70) 6 % (16-70) 4 % (16-70) Lymphocytes % 10 % (9-44) 7 % (9-44) 14 % (9-44) Monocytes % 1 % (0-8) Neutrophils # (Manual) 0.9 TH/MM3 (1.8-7.7) 1.1 TH/MM3 (1.8-7.7) 0.6 TH/MM3 (1.8-7.7) Differential Comment FINAL DIFF MANUAL FINAL DIFF MANUAL FINAL DIFF MANUAL Blastocytes 80 % (0-0) 83 % (0-0) 82 % (0-0) Platelet Estimate LOW (NORMAL) LOW (NORMAL) LOW (NORMAL) Platelet Morphology Comment NORMAL (NORMAL) GIANT (NORMAL) NORMAL (NORMAL) Ovalocytes 1+ (NORMAL) 1+ (NORMAL) 1+ (NORMAL) Acanthocytes OCC (NORMAL) 1+ (NORMAL) OCC (NORMAL) Blood Urea Nitrogen 3 MG/DL (7-18) 3 MG/DL (7-18) 3 MG/DL (7-18) Creatinine 0.87 MG/DL (0.50-1.00) 0.87 MG/DL (0.50-1.00) 0.82 MG/DL (0.50-1.00) Random Glucose 99 MG/DL (74-106) 101 MG/DL (74-106) 90 MG/DL (74-106) Total Protein 4.4 GM/DL (6.4-8.2) 4.7 GM/DL (6.4-8.2) 4.8 GM/DL (6.4-8.2) Calcium Level 7.4 MG/DL (8.5-10.1) 7.2 MG/DL (8.5-10.1) 7.4 MG/DL (8.5-10.1) Sodium Level 140 MEQ/L (136-145) 141 MEQ/L (136-145) 139 MEQ/L (136-145) Potassium Level 3.0 MEQ/L (3.5-5.1) 4.1 MEQ/L (3.5-5.1) 3.8 MEQ/L (3.5-5.1) 3.9 MEQ/L (3.5-5.1) Chloride Level 106 MEQ/L (98-107) 108 MEQ/L (98-107) 106 MEQ/L (98-107) Carbon Dioxide Level 27.9 MEQ/L (21.0-32.0) 25.0 MEQ/L (21.0-32.0) 27.6 MEQ/L (21.0-32.0) Anion Gap 6 MEQ/L (5-15) 8 MEQ/L (5-15) 5 MEQ/L (5-15) Estimat Glomerular Filtration Rate 65 ML/MIN (>89) 65 ML/MIN (>89) 69 ML/MIN (>89) Protein Corrected Calcium 9.0 MG/DL (8.5-10.1) 8.5 MG/DL (8.5-10.1) 8.7 MG/DL (8.5-10.1) Neutrophils (%) (Auto) 2.6 % (16.0-70.0) Lymphocytes (%) (Auto) 11.1 % (9.0-44.0) Monocytes (%) (Auto) 86.2 % (0.0-8.0) Eosinophils (%) (Auto) 0.1 % (0.0-4.0) Basophils (%) (Auto) 0.0 % (0.0-2.0) Neutrophils # (Auto) 0.3 TH/MM3 (1.8-7.7) Lymphocytes # (Auto) 1.4 TH/MM3 (1.0-4.8) Monocytes # (Auto) 10.6 TH/MM3 (0-0.9) Eosinophils # (Auto) 0.0 TH/MM3 (0-0.4) Basophils # (Auto) 0.0 TH/MM3 (0-0.2) Basophils % 1 % (0-2) Myelocytes 3 % (0-0) Brock Cells 1+ (NORMAL) Magnesium Level 1.7 MG/DL (1.5-2.5) . Result Diagram: 10/09/17 0600 10/09/17 0600 Microbiology Microbiology Date/Time Source Procedure Growth Status 10/02/17 12:00 Blood Other Aerobic Blood Culture - Final NO GROWTH IN 5 DAYS Complete 10/02/17 12:00 Blood Other Anaerobic Blood Culture - Final NO GROWTH IN 5 DAYS Complete 10/02/17 14:00 Stool Stool Stool Occult Blood ([facility]) - Final HEMOCCULT NEGATIVE Complete 10/01/17 15:14 Urine Clean Catch Urine Culture - Final 50-100,000 CFU/ML MIXED GRAM POSITIVE... Complete . Imaging Last Impressions Chest X-Ray 10/05/17 0000 Signed Impressions: Service Date/Time: Thursday, October 05, 2017 13:32 - CONCLUSION: Support apparatus good position, no pneumothorax. 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 Moderate ostial RUBY stenosis. Findings of mild proximal colitis. Raoul Denton MD CT Angiography 10/01/17 1251 Signed Impressions: Service Date/Time: Sunday, October 01, 2017 14:19 - CONCLUSION: 1. No evidence of pulmonary embolism. 2. Focal infiltrate within the left upper lobe posteriorly consistent with possible pneumonia. 3. Scattered atelectatic changes bilaterally. 4. Stable aneurysmal dilatation of the ascending thoracic aorta measuring 4.7 cm in greatest dimension. 5. Stable cardiomegaly and coronary artery calcifications. 6. Minimal posterior pleural thickening bilaterally. eDsmond Jaimes MD . Other 09/21: PICC line placement right upper arm. 10/01 left subclavian central line placement . Assessment and Plan Disease Oriented Problem List: (1) AML (acute myeloid leukemia) (2) Debility (3) Sepsis Symptom Scale: (1) Nausea 0-10 Scale: Unable to quantify (continuous nausea, spitting up frequently without significant emesis, in spite of multiple medications.) (2) Weakness 0-10 Scale: Unable to quantify (continued debility from poor performance status likely due to multiple comorbidities and side effects of chemotherapy.) (3) Diarrhea 0-10 Scale: Unable to quantify (recurrent C. difficile, having difficulty tolerating oral vancomycin due to nausea.) Pertinent Non-Medical Issues Psychosocial:Originally from [place]. , has 2 adult children. 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 Spiritual:[employer]. Legal: Living will and designation of healthcare surrogate completed. Ethical issues impacting care:No ethical issues identified. . Important Contacts [facility]/son Sarthak Miguel daughter Jerri Miguel . . Prognosis Her prognosis is poor. She has been diagnosed with acute myeloid leukemia and per my discussion with oncology, even with treatment, her lifespan is likely to be less than a year. Without therapy, 3-6 months. 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 Without treatment her sepsis is likely to continue until hemodynamic compromise and possible . . Code Status: No Code Plan PLAN: Legal decision maker: He is currently capacitated to make her own decisions. Goals: Continuing to pursue chemotherapy and full resuscitative treatment. CODE STATUS: FULL CODE SYMPTOMS: * Nausea: She states that nausea started right after she initiated chemotherapy , her last dose was the end of August. She states Dr. Yarbrough is no longer going to give her chemotherapy due to her progressive debility and inability to eat. She has failed treatment with Tigan, Reglan, lorazepam, Protonix, Zofran, Carafate, Haldol, Phenergan, scopolamine, dronabinol. She had an adverse reaction to Phenergan. She may be more tolerant of another H1 oneil and would recommend trying to add another medication from that class, possibly meclizine, diphenhydramine or hydroxyzine. If she does have a positive response to that, would consider discontinuing ineffective anti-emetics to decrease side effects from polypharmacy. * Weakness: This is multi-factorial to include AML, chemotherapy and debility. She is unable to consume food or water due to her nausea which is contributing to her weakness. First goal being to control the nausea, which at this point has not yet been achieved. She will not be receiving chemotherapy, but is likely still experiencing the side effects from her last dose at the end of August. She is only able to take sips of chocolate ensure and is frequently vomiting. At this point there is some concern for aspiration, as well, due to the recurrent vomiting and progressive weakness. Without nutrition she will certainly still continued to decline. Dronabinol was resumed today and may begin to increase her appetite. Palliative care will continue to follow the patient during hospital course as condition evolves, to assist patient/decision-maker with understanding of their medical conditions, weighing benefits/burdens of treatment options, for clarification of goals of treatment. Additionally will assist with any symptoms of palliative concern. . Attestation To help prompt me to consider important information that might be impacting today's encounter and assessment, information from prior notes written by myself or my colleagues may have been "brought forward" into today's note. My signature on this note, however, is an attestation that I personally performed the exam, history, and/or decision-making noted today, and, unless otherwise indicated, the interactions with patient, family, and staff as well as the review of records all occurred today. I also attest that the listed assessment and stated plan reflect my best clinical judgment today based on the combination of historical information, prior notes, and today's exam/ interactions. When time spent is documented, it refers only to time spent today by the signer, or if indicated, combined time spent today by collaborating physician/nurse practitioner. . Veronica Grant Oct 09, 2017 5:22 pm
[2017-10-09] MEDS: LORazepam 0.5 MG TAB PO PRN (18:30)
[2017-10-09 20:00] VITALS: PULSE 123; PULSE 125; RESP 19
[2017-10-10] VITALS (8 sets, daily range): BP systolic 78–115; BP diastolic 51–67; PULSE 78–130; RESP 15–23; TEMP 98–99.1; O2SAT 93–98
[2017-10-10] MEDS: HALOPERIDOL LACTATE 5 MG/ML AMP IV PUSH PRN (02:33)
[2017-10-10] MEDS: LORazepam 0.5 MG TAB PO PRN ×2 (02:33→09:31)
[2017-10-10] MEDS: INSULIN NovoLIN REGULAR SUPPLEMENTAL SCALE SQ SCH ×4 (03:00→20:57)
[2017-10-10] MEDS: CHLORHEXIDINE GLUCONATE 2 % 1 PACK (2 CLOTHS) TOP SCH (04:00)
[2017-10-10] MEDS: LEVOTHYROXINE SODIUM 25 MCG TAB PO SCH (06:00)
[2017-10-10] MEDS: D5-NS + KCL 20 MEQ INJ 1,000 ML IV SCH ×2 (06:12→09:39)
[2017-10-10] MEDS: MORPHINE SULFATE 2 MG/ML INJ IV PUSH PRN ×3 (06:13→22:59)
[2017-10-10] MEDS: METOCLOPRAMIDE HCL 10 MG/2 ML VIAL IM SCH ×3 (06:13→20:58)
[2017-10-10] MEDS: ONDANSETRON HCL 4 MG/2 ML VIAL IV PUSH SCH ×4 (06:13→22:58)
[2017-10-10 07:15] LABS: HEMATOCRIT 23.5 % (35.0-46.0); HEMOGLOBIN 7.9 GM/DL (11.6-15.3); MEAN CELL VOLUME 92.7 FL (80.0-100.0); MEAN CORPUSCULAR HEMOGLOBIN 31.1 PG (27.0-34.0); MEAN CORPUSCULAR HGB CONC 33.5 % (32.0-36.0); MEAN PLATELET VOLUME 9.4 FL (7.0-11.0); RED BLOOD COUNT 2.54 MIL/MM3 (4.00-5.30); RED CELL DISTRIBUTION WIDTH 19.5 % (11.6-17.2); WHITE BLOOD COUNT 14.5 TH/MM3 (4.0-11.0)
[2017-10-10 07:18] LABS: BICARBONATE 26.8 MEQ/L (21.0-32.0); CALCIUM 7.1 MG/DL (8.5-10.1); CREATININE 0.83 MG/DL (0.50-1.00); MAGNESIUM 1.7 MG/DL (1.5-2.5)
[2017-10-10 07:33] LABS: CALCIUM-PROTEIN CORRECTED 8.6 MG/DL (8.5-10.1); TOTAL PROTEIN 4.4 GM/DL (6.4-8.2)
[2017-10-10 07:39] LABS: PLATELET COUNT 19 TH/MM3 (150-450)
[2017-10-10] MEDS: RIFAXIMIN 550 MG TAB PO SCH ×2 (08:46→20:57)
[2017-10-10] MEDS: POTASSIUM CHLOR 40 MEQ PREMIX 100 ML IV PRN (08:46)
[2017-10-10] MEDS: SUCRALFATE 1 GM/10 ML CUP PO SCH ×4 (08:46→20:57)
[2017-10-10] MEDS: NYSTATIN SUSP 500,000 U/5 ML CUP SWISH-SWAL SCH ×4 (08:47→20:57)
[2017-10-10] MEDS: VANCOMYCIN 25 MG/ML SUSP 100 ML BOTTLE PO SCH ×4 (08:48→20:58)
[2017-10-10] MEDS: METOPROLOL TARTRATE 25 MG TAB PO SCH (08:48)
[2017-10-10] MEDS: metroNIDAZOLE 500 MG INJ 100 ML IV SCH ×3 (08:48→22:59)
[2017-10-10] MEDS: PANTOPRAZOLE SODIUM 40 MG VIAL IV PUSH SCH ×2 (08:48→20:57)
--- NOTE | 2017-10-10 10:27 | HHI.PR ---
Subjective Remarks The patient says that she still has not been eating well. She had about half an ensure yesterday. Discussed with nursing at the bedside. Objective Vitals Vital Signs Date Time Temp Pulse Resp B/P (MAP) Pulse Ox O2 Delivery O2 Flow Rate FiO2 10/10/17 08:00 98.7 127 15 84/57 (66) 94 10/10/17 08:00 127 10/10/17 04:00 99.1 128 18 115/64 (81) 96 10/10/17 04:00 130 10/10/17 00:00 98.7 122 15 93 10/10/17 00:00 128 10/09/17 20:00 125 10/09/17 20:00 123 19 10/09/17 18:35 15 10/09/17 16:00 98.5 122 24 120/64 (82) 94 10/09/17 16:00 122 10/09/17 12:00 77 10/09/17 12:00 99.0 77 23 112/64 (80) 95 I/O 10/09/17 10/09/17 10/09/17 10/10/17 10/10/17 10/10/17 07:00 15:00 23:00 07:00 15:00 23:00 Intake Total 1320 ml 350 ml Balance 1320 ml 350 ml Intake Oral 420 ml 350 ml IV Total 900 ml # Voids 4 3 5 # Bowel Movements 0 0 0 Result Diagram: 10/10/17 0620 10/10/17 0620 Imaging Last Impressions Chest X-Ray 10/05/17 0000 Signed Impressions: Service Date/Time: Thursday, October 05, 2017 13:32 - CONCLUSION: Support apparatus good position, no pneumothorax. 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 Moderate ostial RUBY stenosis. Findings of mild proximal colitis. Raoul Denton MD CT Angiography 10/01/17 1251 Signed Impressions: Service Date/Time: Sunday, October 01, 2017 14:19 - CONCLUSION: 1. No evidence of pulmonary embolism. 2. Focal infiltrate within the left upper lobe posteriorly consistent with possible pneumonia. 3. Scattered atelectatic changes bilaterally. 4. Stable aneurysmal dilatation of the ascending thoracic aorta measuring 4.7 cm in greatest dimension. 5. Stable cardiomegaly and coronary artery calcifications. 6. Minimal posterior pleural thickening bilaterally. Desmond Jaimes MD Objective Remarks General: No acute distress. HEENT: NC, AT. Heart: Irregularly irregular. No murmur. Lungs: Clear to auscultation bilaterally. No wheezes, rales, or rhonchi. Breathing is nonlabored. Abdomen: Soft, slightly tender, nondistended. Extremities: No lower extremity edema. Neuro: Alert, oriented. Psych: Mood and affect appropriate. Procedures None Medications and IVs Current Medications Medications (Trade) Dose Ordered Sig/Tylor Route Start Time Stop Time Status Last Admin (NS Flush) 2 ml UNSCH PRN IV FLUSH 10/01/17 12:45 10/03/17 08:27 (Duoneb Neb) 1 ampule Q2HR NEB PRN INH 10/01/17 14:00 10/09/17 17:18 Miscellaneous Information 1 Q361D XX 10/01/17 14:00 (Chlorhexidine 2% Cloth) Taper DAILY@04 TOP 10/02/17 04:00 09/28/18 03:59 10/08/17 03:36 (Chlorhexidine 2% Cloth) 3 pack UNSCH PRN TOP 10/01/17 14:00 Potassium Chloride 100 ml @ 50 mls/hr Q2H PRN IV 10/01/17 15:00 10/07/17 13:38 Potassium Chloride 100 ml @ 50 mls/hr Q2H PRN IV 10/01/17 15:00 (K-Lyte Cl Eff) 50 meq UNSCH PRN PO 10/01/17 15:00 Potassium Chloride 100 ml @ 25 mls/hr UNSCH PRN IV 10/01/17 15:00 10/10/17 08:46 Potassium Chloride 100 ml @ 50 mls/hr Q2H PRN IV 10/01/17 15:00 10/02/17 04:00 Magnesium Sulfate 4 gm/Sodium Chloride 100 ml @ 50 mls/hr UNSCH PRN IV 10/01/17 15:00 (Mag-Ox) 800 mg UNSCH PRN PO 10/01/17 15:00 Magnesium Sulfate 2 gm/Sodium Chloride 100 ml @ 50 mls/hr UNSCH PRN IV 10/01/17 15:00 10/03/17 11:31 (K-Phos) 2,000 mg Q4H PRN PO 10/01/17 15:00 Sodium Phosphate 30 mmol/Sodium Chloride 250 ml @ 42 mls/hr UNSCH PRN IV 10/01/17 15:00 10/03/17 13:13 (K-Phos) 2,000 mg UNSCH PRN PO/TUBE 10/01/17 15:00 Potassium Phosphate 30 mmol/ Sodium Chloride 260 ml @ 42 mls/hr UNSCH PRN IV 10/01/17 15:00 10/05/17 06:51 (D50w (Vial) Inj) 50 ml UNSCH PRN IV PUSH 10/01/17 15:00 10/04/17 20:25 (Glucagon Inj) 1 mg UNSCH PRN OTHER 10/01/17 15:00 (NovoLIN R SUPPLEMENTAL SCALE) 1 Q6H SQ 10/01/17 15:00 (Morphine Inj) 2 mg Q3H PRN IV PUSH 10/01/17 21:30 10/10/17 09:32 (Tylenol) 650 mg Q4H PRN PO 10/01/17 21:30 (Zofran Inj) 4 mg Q6HR IV PUSH 10/02/17 12:00 10/10/17 06:13 (Lopressor) 25 mg Q12HR PO 10/02/17 14:45 10/10/17 08:48 (Carafate Liq) 1 gm ACHS PO 10/03/17 12:00 10/10/17 08:46 (Protonix Inj) 40 mg Q12HR IV PUSH 10/03/17 11:30 10/10/17 08:48 (Ativan) 0.5 mg Q8H PRN PO 10/03/17 16:00 10/10/17 09:31 Diltiazem HCl 125 mg/Sodium Chloride 125 ml @ 5 mls/hr TITRATE PRN IV 10/04/17 08:30 (Mycostatin Liq) 5 ml QID SWISH-SWAL 10/04/17 18:00 10/10/17 08:47 (Reglan Inj) 10 mg Q8HR IM 10/04/17 22:00 10/10/17 06:13 (Xifaxan) 550 mg BID PO 10/04/17 21:00 10/10/17 08:46 Metronidazole 100 ml @ 100 mls/hr Q8H IV 10/04/17 16:00 10/10/17 08:48 (Synthroid) 25 mcg DAILY@0600 PO 10/06/17 06:00 10/08/17 06:03 (Haldol Inj) 0.5 mg Q6HR PRN IV PUSH 10/05/17 14:15 10/07/17 23:48 (Haldol Inj) 1 mg Q6HR PRN IV PUSH 10/05/17 16:15 10/10/17 02:33 (Vancomycin 25 Mg/ml Liq) 125 mg QID PO 10/06/17 10:00 10/10/17 08:48 Non-Formulary Medication 1 ea Q3D T-DERMAL 10/06/17 10:00 10/09/17 11:02 Potassium Chloride/Dextrose/ Sod Cl 1,000 ml @ 50 mls/hr Q20H IV 10/07/17 18:15 10/10/17 09:39 (Marinol) 2.5 mg BID@11,16 PO 10/09/17 16:00 10/09/17 15:44 Date of Insertion: Sep 21, 2017 Line: PICC A/P Assessment and Plan Sepsis Secondary to C. difficile colitis. Appreciate infectious disease recommendations. No further diarrhea. - Continue IV Flagyl, oral vancomycin. Leukocytosis improved. Anemia/ thrombocytopenia/ AML Appreciate hematology/oncology recommendations. H/H stable. Plt count 19 10/10. - follow CBC. - follow up with oncology and transfuse as indicated. Respiratory insufficiency Stable. - Continue supplemental oxygen, bronchodilators. Nausea/vomiting Not controlled by Zofran. Patient also receiving Reglan. Had adverse reaction to Phenergan. Tigan did not help. GI consult appreciated. - Haldol added by palliative care. - Continue scopolamine patch. - Pepcid. - ADAT. - continue standing Reglan, rifaximin. Atrial fibrillation with RVR Rate becomes elevated with agitation/anxiety. No anticoagulation due to thrombocytopenia. HR in the 120s 10/10. - Cardiology consult is still pending, requested on 10/04. Reconsult placed. - continue Lopressor. Hypokalemia S/t decreased PO intake. - replete and monitor. DVT prophylaxis: SCDs. Avoid chemical prophylaxis secondary to anemia. Discharge Planning Transfer to oncology unit Balaji Escobedo DO Oct 10, 2017 10:27
[2017-10-10] MEDS: DRONABINOL 2.5 MG CAP PO SCH ×2 (11:57→17:19)
[2017-10-10] MEDS ORDERED: SODIUM CHLOR 0.9% 1000 ML INJ 1,000 ML IV ONE (13:15)
--- NOTE | 2017-10-10 15:44 | HHI.GIFU ---
Subjective Remarks PT resting in bed in NAD. napping. increasingly sleepy/lethargic. Not eating much. denies abd pain. (Amanda Lawrence) Objective Vitals I&O Vital Signs Date Time Temp Pulse Resp B/P (MAP) Pulse Ox O2 Delivery O2 Flow Rate FiO2 10/10/17 13:15 79 78/51 (60) 10/10/17 12:00 98.5 79 22 111/67 (82) 94 10/10/17 12:00 79 10/10/17 09:37 19 10/10/17 08:00 98.7 127 15 84/57 (66) 94 10/10/17 08:00 127 10/10/17 04:00 99.1 128 18 115/64 (81) 96 10/10/17 04:00 130 10/10/17 00:00 98.7 122 15 93 10/10/17 00:00 128 10/09/17 20:00 125 10/09/17 20:00 123 19 10/09/17 16:00 98.5 122 24 120/64 (82) 94 10/09/17 16:00 122 I/O 10/09/17 10/09/17 10/09/17 10/10/17 10/10/17 10/10/17 07:00 15:00 23:00 07:00 15:00 23:00 Intake Total 1320 ml 350 ml 200 ml 1000 ml Balance 1320 ml 350 ml 200 ml 1000 ml Intake Oral 420 ml 350 ml IV Total 900 ml 200 ml 1000 ml # Voids 4 3 5 # Bowel Movements 0 0 0 Laboratory Laboratory Tests Test 10/10/17 06:20 White Blood Count 14.5 Red Blood Count 2.54 Hemoglobin 7.9 Hematocrit 23.5 Mean Corpuscular Volume 92.7 Mean Corpuscular Hemoglobin 31.1 Mean Corpuscular Hemoglobin Concent 33.5 Red Cell Distribution Width 19.5 Platelet Count 19 Mean Platelet Volume 9.4 Blood Urea Nitrogen 4 Creatinine 0.83 Random Glucose 104 Total Protein 4.4 Calcium Level 7.1 Magnesium Level 1.7 Sodium Level 138 Potassium Level 3.4 Chloride Level 105 Carbon Dioxide Level 26.8 Anion Gap 6 Estimat Glomerular Filtration Rate 68 Protein Corrected Calcium 8.6 Date/Time Source Procedure Growth Status 10/02/17 12:00 Blood Other Aerobic Blood Culture - Final NO GROWTH IN 5 DAYS Complete 10/02/17 12:00 Blood Other Anaerobic Blood Culture - Final NO GROWTH IN 5 DAYS Complete 10/02/17 14:00 Stool Stool Stool Occult Blood ([facility]) - Final HEMOCCULT NEGATIVE Complete 10/01/17 15:14 Urine Clean Catch Urine Culture - Final 50-100,000 CFU/ML MIXED GRAM POSITIVE... Complete Imaging Last Impressions Chest X-Ray 10/05/17 0000 Signed Impressions: Service Date/Time: Thursday, October 05, 2017 13:32 - CONCLUSION: Support apparatus good position, no pneumothorax. 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 Moderate ostial RUBY stenosis. Findings of mild proximal colitis. Raoul Denton MD CT Angiography 10/01/17 1251 Signed Impressions: Service Date/Time: Sunday, October 01, 2017 14:19 - CONCLUSION: 1. No evidence of pulmonary embolism. 2. Focal infiltrate within the left upper lobe posteriorly consistent with possible pneumonia. 3. Scattered atelectatic changes bilaterally. 4. Stable aneurysmal dilatation of the ascending thoracic aorta measuring 4.7 cm in greatest dimension. 5. Stable cardiomegaly and coronary artery calcifications. 6. Minimal posterior pleural thickening bilaterally. Desmond Jaimes MD Physical Exam HEENT: Normocephalic; atraumatic CHEST: Even/unlabored CARDIAC: RRR ABDOMEN: Soft, mildly distended, nontender, bowel sounds active SKIN: Normal; no rash; no jaundice. EMT/DISPATCHER: lethargic, oriented (Amanda Lawrence MATE RELIEF) Assessment and Plan Plan - anemia - hgb was 6.6 on admission, currently 8.2, no obvious source bleeding , had chemo 09/26/17 and per oncology note Had EGD 09/21/17 that found mild esophagitis, severe gastritis, no bx done d/t low PLT. last colonoscopy [address] Calderón found "inflammation." - CT on 10/03/17 shows poss mild colitis. + c diff on PO vanc blood transfusion this admission - epigastric pain - EGD as above. esophagitis, gastritis couldn't get bx. will check h pylori. Currently having generalized abdominal pain - n/v - persistent, 2/2 chemo? EGD as above. - leukocytosis - ?leukemia. + c diff on PO vanc, denies diarrhea. afebrile. ID consulted. , Current CBC on 10/08/17 is 12.3 (2/6) Pt with some nausea this morning, denies emesis. Reports small BM today, stool being sent for H. Pylori antigen and Hemoccult. No obvious GIB at this time. H/H currently 10.2/29.3 S/P 2 U PRBCs yesterday. She has been seen by oncology who addressed possible hospitce and pt reports she is not ready for this transition. She remains on oral Vanco and IV Flagyl. Remains on clear liquids, poor appetite. Per oncology, nutrition should be encourage for pt to gain strength. CT abdomen W pelvis W IV contrast (10/01) noted --> Minimal bowel wall thickening descending colon it could be an early mild colitis. No other etiology for abdominal pain is evident. (10/03/17) denies abd pain, diarrhea. has some nausea no vomiting. CTA 10/03/ showed mild colitis, mild ostial celiac stenosis, moderate SMA stenosis, moderate ostial RUBY stenosis. + c diff, on abx. stool heme negative. HH mild decrease no bleeding. (10/04/17) no abd pain. + liquid stool today. nauseous, is tolerating Ensure. HH stable (10/05) Pt with continued nausea and dry heaves. Tigan started today. Continued Reglan and Zofran PRN. Labs reveal elevated TSH-89.8, pt being started on Levothyroxine tomorrow. Continued abdominal pain, she is unable to localize to specific area. Remains with some diarrhea , but seems to be improving. Vanco DCd yesterday, now on IV Flagyl and Rifaximin. Stool H. Pylori still pending. Anemia- drop in H/H currently 9.9/29.7, last transfused Oct 01. Hemoccult negative on Oct 02. Random serum cortisol level 17.2 at 9:45 at night, slight increase possibly related to thyroid dysfunction. (10/06) Pt with continued nausea and dry heaves, no emesis. Tigan now DCd. Possibly anxiety as causative factor for dry heaving. Haldol ordered per attending. Also has Reglan and Zofran as needed. Ativan for anxiety. Reports BMs more formed. Denies blood in stool, last BM was yesterday. Stool H. Pylori antigen still pending. IV Flagyl, oral Vanco, Xifaxan. OK to downgrade out of ICU from a GI standpoint. Will continue to monitor. (10/07) --> Pt reports continued nausea, however, no dry heaves since last night. She does not notice more improvement with nausea with any specific medications. Currently has Scopolamine patch, Haldol, Reglan, Carafate, Protonix, Zofran, Ativan. BMs are more formed and not as frequent. Remains on Vanco and Flagyl. 10/08/17, patient is very weak, fatigued, states she is not eating and has no appetite. Skin pale jeff complexion Still has some generalized abdominal pain to light palpation. Questionable need for PEG tube if patient continues chemotherapy treatments and is not eating. Appreciate ID input 10/09/17 - still not much PO intake, main GI complaint is nausea. can try ensure clear and see if she will take more of that. says she takes sips chocolate ensure. HH stable 10/10/17 PLT dropped to 19. not much change, not eating much. more lethargic. HH dropped, no obvious bleeding. hem/onc starting marinol palliative care following, she is DNR PLAN - encourage PO intake - marinol per hem onc - Continue antiemetics - IV Flagyl - Rifaximin - Oral Vanco - Monitor labs -Supportive care - not much more to add from GI standpoint, will sign off. please reconsult if needed. Pt seen by myself and Dr. Collier and this note is written on his behalf (Amanda Lawrence) Physician Comments Patient seen and examined Agree with above Continue current supportive care Monitor labs Consider Marinol for nausea and appetite and pain Not much to add otherwise from a GI perspective we will sign off (Santana Collier MD) Amanda Lawrence Oct 10, 2017 15:44 Santana Collier MD Oct 10, 2017 20:36
--- NOTE | 2017-10-10 18:07 | MB ---
cc: LILY MASON DATE OF CONSULTATION 10/10/2017 HISTORY OF THE PRESENT ILLNESS Ms. 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 She has treated with chemotherapy. She was admitted with sepsis. She has had episodes of paroxysmal atrial fibrillation with rapid ventricular response. She was given metoprolol with resulted in hypotension. She is currently in sinus rhythm. She complains of hurting all over. She has not had any angina or excessive dyspnea. PAST MEDICAL HISTORY Positive for: 1. Acute myelogenous leukemia. 2. Myelodysplastic syndrome. 3. Paroxysmal atrial fibrillation. 4. Chronic obstructive pulmonary disease. 5. C. Difficile colitis. 6. Anxiety. 7. Chronic nausea. 8. Hypothyroidism. 9. Obesity. 10. History of appendectomy. 11. Bone marrow biopsy. 12. section. 13. Varicose veins surgery. 14. Colonoscopy. ALLERGIES PENICILLIN. SOCIAL HISTORY The patient does not smoke. She does not drink alcohol. FAMILY HISTORY Positive for heart disease. MEDICATIONS Current medications: 1. Marinol. 2. Potassium chloride. 3. Vancomycin. 4. Levothyroxine. 5. Metoclopramide. 6. Rifaximine. 7. Nystatin. 8. Metronidazole. 9. Carafate. 10. Metoprolol 25 milligrams twice a day. 11. Protonix. REVIEW OF SYSTEMS Otherwise negative. PHYSICAL EXAMINATION VITAL SIGNS: Blood pressure 99/65, pulse 79 regular. HEENT: Negative. NECK: 2+ carotid upstrokes. No bruits. LUNGS: Clear. HEART: Regular with no murmur, gallop or rub. ABDOMEN: Soft. No bruits. EXTREMITIES: Without edema. 2_ distal pulses noted. NEUROLOGIC: Grossly nonfocal. EKG was reviewed and showed atrial flutter with rapid ventricular response low-voltage. Telemetry now shows sinus rhythm. LABORATORY DATA Hemoglobin 7.9. Potassium 3.4, creatinine 0.8. DIAGNOSES 1. Paroxysmal atrial fibrillation / flutter with rapid ventricular response. 2. Sepsis. 3. Acute myeloid leukemia. 4. Myelodysplastic syndrome. 5. Anemia. 6. Thrombocytopenia. 7. Respiratory insufficiency. DISPOSITION Ms. Richard will paroxysmal atrial fibrillation / flutter with rapid ventricular response. We will initiate therapy with low-dose instead of metoprolol. We will continue monitoring on telemetry. I will follow her for cardiology during hospitalization. MD MEHDI Pinon/KK /3:46 PM /5:30 PM
[2017-10-10] MEDS: SOTALOL HCL 80 MG TAB PO SCH (20:57)
[2017-10-11] VITALS (9 sets, daily range): BP systolic 98–147; BP diastolic 55–85; PULSE 120–134; RESP 15–22; TEMP 98.7–100.5; O2SAT 93–99
[2017-10-11] MEDS: CHLORHEXIDINE GLUCONATE 2 % 1 PACK (2 CLOTHS) TOP SCH (02:07)
[2017-10-11] MEDS: INSULIN NovoLIN REGULAR SUPPLEMENTAL SCALE SQ SCH ×4 (03:00→21:00)
[2017-10-11] MEDS: RESP: ALBUTEROL 2.5 MG/IPRATROPIUM 0.5 MG NEB (PRN) INH (03:53)
[2017-10-11] MEDS: LORazepam 0.5 MG TAB PO PRN (04:36)
[2017-10-11] MEDS: D5-NS + KCL 20 MEQ INJ 1,000 ML IV SCH (04:38)
[2017-10-11] MEDS: MORPHINE SULFATE 2 MG/ML INJ IV PUSH PRN ×4 (04:49→21:00)
[2017-10-11] MEDS: LEVOTHYROXINE SODIUM 25 MCG TAB PO SCH (05:03)
[2017-10-11] MEDS: ONDANSETRON HCL 4 MG/2 ML VIAL IV PUSH SCH ×3 (05:03→17:54)
[2017-10-11] MEDS: METOCLOPRAMIDE HCL 10 MG/2 ML VIAL IM SCH ×3 (05:03→21:59)
[2017-10-11 05:58] LABS: HEMATOCRIT 24.7 % (35.0-46.0); HEMOGLOBIN 8.3 GM/DL (11.6-15.3); MEAN CELL VOLUME 92.1 FL (80.0-100.0); MEAN CORPUSCULAR HEMOGLOBIN 31.2 PG (27.0-34.0); MEAN CORPUSCULAR HGB CONC 33.9 % (32.0-36.0); MEAN PLATELET VOLUME 10.1 FL (7.0-11.0); RED BLOOD COUNT 2.68 MIL/MM3 (4.00-5.30); RED CELL DISTRIBUTION WIDTH 19.8 % (11.6-17.2); WHITE BLOOD COUNT 15.9 TH/MM3 (4.0-11.0)
[2017-10-11 06:22] LABS: PLATELET COUNT 14 TH/MM3 (150-450)
[2017-10-11 06:45] LABS: BICARBONATE 25.2 MEQ/L (21.0-32.0); CALCIUM 7.3 MG/DL (8.5-10.1); CREATININE 0.86 MG/DL (0.50-1.00); MAGNESIUM 1.7 MG/DL (1.5-2.5)
[2017-10-11 07:28] LABS: CALCIUM-PROTEIN CORRECTED 8.7 MG/DL (8.5-10.1); TOTAL PROTEIN 4.7 GM/DL (6.4-8.2)
[2017-10-11] MEDS: metroNIDAZOLE 500 MG INJ 100 ML IV SCH ×2 (08:27→15:21)
[2017-10-11] MEDS: SUCRALFATE 1 GM/10 ML CUP PO SCH ×4 (08:27→21:00)
[2017-10-11] MEDS: NYSTATIN SUSP 500,000 U/5 ML CUP SWISH-SWAL SCH ×4 (08:28→21:00)
[2017-10-11] MEDS: PANTOPRAZOLE SODIUM 40 MG VIAL IV PUSH SCH ×2 (08:28→21:00)
[2017-10-11] MEDS: RIFAXIMIN 550 MG TAB PO SCH ×2 (08:28→21:00)
[2017-10-11] MEDS: SOTALOL HCL 80 MG TAB PO SCH ×2 (08:33→21:57)
[2017-10-11] MEDS: diphenhydrAMINE HCL 25 MG CAP PO SCH ×3 (09:19→21:57)
[2017-10-11] MEDS: VANCOMYCIN 25 MG/ML SUSP 100 ML BOTTLE PO SCH ×4 (09:20→21:57)
[2017-10-11] MEDS: DRONABINOL 2.5 MG CAP PO SCH ×2 (11:10→15:28)
--- NOTE | 2017-10-11 11:27 | HHI.PR ---
Subjective Remarks The patient said that she had some Ensure yesterday. She said she will be trying to have more today. She had a bowel movement this morning. She said she does not want a feeding tube. Discussed with nursing at the bedside. Objective Vitals Vital Signs Date Time Temp Pulse Resp B/P (MAP) Pulse Ox O2 Delivery O2 Flow Rate FiO2 10/11/17 08:00 98.7 134 22 105/55 (72) 96 10/11/17 08:00 134 10/11/17 04:00 100.5 130 21 147/85 (105) 99 10/11/17 04:00 132 10/11/17 00:00 98.8 120 17 98/61 (73) 98 10/11/17 00:00 120 10/10/17 21:40 98 Nasal Cannula 2.00 10/10/17 20:00 82 10/10/17 20:00 99.1 82 20 100/57 (71) 96 10/10/17 16:00 78 10/10/17 16:00 98.0 78 23 95/56 (69) 94 10/10/17 13:15 79 78/51 (60) 10/10/17 12:00 98.5 79 22 111/67 (82) 94 10/10/17 12:00 79 I/O 10/10/17 10/10/17 10/10/17 10/11/17 10/11/17 10/11/17 07:00 15:00 23:00 07:00 15:00 23:00 Intake Total 350 ml 200 ml 3419 ml 580 ml 10 ml Output Total 350 ml Balance 350 ml 200 ml 3069 ml 580 ml 10 ml Intake Oral 350 ml 720 ml 280 ml IV Total 200 ml 2699 ml 300 ml Blood Product IV Normal Saline Flush 10 ml Output Urine Total 350 ml # Voids 5 3 3 # Bowel Movements 0 0 Result Diagram: 10/11/17 0500 10/11/17 0500 Imaging Last Impressions Chest X-Ray 10/05/17 0000 Signed Impressions: Service Date/Time: Thursday, October 05, 2017 13:32 - CONCLUSION: Support apparatus good position, no pneumothorax. 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 Moderate ostial RUBY stenosis. Findings of mild proximal colitis. Raoul Denton MD CT Angiography 10/01/17 1251 Signed Impressions: Service Date/Time: Sunday, October 01, 2017 14:19 - CONCLUSION: 1. No evidence of pulmonary embolism. 2. Focal infiltrate within the left upper lobe posteriorly consistent with possible pneumonia. 3. Scattered atelectatic changes bilaterally. 4. Stable aneurysmal dilatation of the ascending thoracic aorta measuring 4.7 cm in greatest dimension. 5. Stable cardiomegaly and coronary artery calcifications. 6. Minimal posterior pleural thickening bilaterally. Desmond Jaimes MD Objective Remarks General: No acute distress. HEENT: NC, AT. Heart: Irregularly irregular, tachycardic. No murmur. Lungs: Clear to auscultation bilaterally. No wheezes, rales, or rhonchi. Breathing is nonlabored. Abdomen: Soft, slightly tender, nondistended. Extremities: No lower extremity edema. Neuro: Alert, oriented. Psych: Mood and affect appropriate. Procedures None Medications and IVs Current Medications Medications (Trade) Dose Ordered Sig/Tylor Route Start Time Stop Time Status Last Admin (NS Flush) 2 ml UNSCH PRN IV FLUSH 10/01/17 12:45 10/03/17 08:27 (Duoneb Neb) 1 ampule Q2HR NEB PRN INH 10/01/17 14:00 10/11/17 03:53 Miscellaneous Information 1 Q361D XX 10/01/17 14:00 (Chlorhexidine 2% Cloth) Taper DAILY@04 TOP 10/02/17 04:00 09/28/18 03:59 10/08/17 03:36 (Chlorhexidine 2% Cloth) 3 pack UNSCH PRN TOP 10/01/17 14:00 Potassium Chloride 100 ml @ 50 mls/hr Q2H PRN IV 10/01/17 15:00 10/07/17 13:38 Potassium Chloride 100 ml @ 50 mls/hr Q2H PRN IV 10/01/17 15:00 (K-Lyte Cl Eff) 50 meq UNSCH PRN PO 10/01/17 15:00 Potassium Chloride 100 ml @ 25 mls/hr UNSCH PRN IV 10/01/17 15:00 10/10/17 08:46 Potassium Chloride 100 ml @ 50 mls/hr Q2H PRN IV 10/01/17 15:00 10/02/17 04:00 Magnesium Sulfate 4 gm/Sodium Chloride 100 ml @ 50 mls/hr UNSCH PRN IV 10/01/17 15:00 (Mag-Ox) 800 mg UNSCH PRN PO 10/01/17 15:00 Magnesium Sulfate 2 gm/Sodium Chloride 100 ml @ 50 mls/hr UNSCH PRN IV 10/01/17 15:00 10/03/17 11:31 (K-Phos) 2,000 mg Q4H PRN PO 10/01/17 15:00 Sodium Phosphate 30 mmol/Sodium Chloride 250 ml @ 42 mls/hr UNSCH PRN IV 10/01/17 15:00 10/03/17 13:13 (K-Phos) 2,000 mg UNSCH PRN PO/TUBE 10/01/17 15:00 Potassium Phosphate 30 mmol/ Sodium Chloride 260 ml @ 42 mls/hr UNSCH PRN IV 10/01/17 15:00 10/05/17 06:51 (D50w (Vial) Inj) 50 ml UNSCH PRN IV PUSH 10/01/17 15:00 10/04/17 20:25 (Glucagon Inj) 1 mg UNSCH PRN OTHER 10/01/17 15:00 (NovoLIN R SUPPLEMENTAL SCALE) 1 Q6H SQ 10/01/17 15:00 (Morphine Inj) 2 mg Q3H PRN IV PUSH 10/01/17 21:30 10/11/17 11:10 (Tylenol) 650 mg Q4H PRN PO 10/01/17 21:30 (Zofran Inj) 4 mg Q6HR IV PUSH 10/02/17 12:00 10/11/17 11:10 (Carafate Liq) 1 gm ACHS PO 10/03/17 12:00 10/11/17 11:10 (Protonix Inj) 40 mg Q12HR IV PUSH 10/03/17 11:30 10/11/17 08:28 (Ativan) 0.5 mg Q8H PRN PO 10/03/17 16:00 10/11/17 04:36 Diltiazem HCl 125 mg/Sodium Chloride 125 ml @ 5 mls/hr TITRATE PRN IV 10/04/17 08:30 (Mycostatin Liq) 5 ml QID SWISH-SWAL 10/04/17 18:00 10/11/17 08:28 (Reglan Inj) 10 mg Q8HR IM 10/04/17 22:00 10/11/17 05:03 (Xifaxan) 550 mg BID PO 10/04/17 21:00 10/11/17 08:28 Metronidazole 100 ml @ 100 mls/hr Q8H IV 10/04/17 16:00 10/11/17 08:27 (Synthroid) 25 mcg DAILY@0600 PO 10/06/17 06:00 10/11/17 05:03 (Haldol Inj) 0.5 mg Q6HR PRN IV PUSH 10/05/17 14:15 10/07/17 23:48 (Haldol Inj) 1 mg Q6HR PRN IV PUSH 10/05/17 16:15 10/10/17 02:33 (Vancomycin 25 Mg/ml Liq) 125 mg QID PO 10/06/17 10:00 10/11/17 09:20 Non-Formulary Medication 1 ea Q3D T-DERMAL 10/06/17 10:00 10/09/17 11:02 Potassium Chloride/Dextrose/ Sod Cl 1,000 ml @ 50 mls/hr Q20H IV 10/07/17 18:15 10/11/17 04:38 (Marinol) 2.5 mg BID@11,16 PO 10/09/17 16:00 10/11/17 11:10 (Betapace) 80 mg Q12HR PO 10/10/17 21:00 10/11/17 08:33 (Benadryl) 25 mg Q6H PO 10/11/17 09:00 10/11/17 09:19 Date of Insertion: Sep 21, 2017 Line: PICC A/P Assessment and Plan Sepsis Secondary to C. difficile colitis. Appreciate infectious disease recommendations. No further diarrhea. - Continue IV Flagyl, oral vancomycin. Leukocytosis improved. Anemia/ thrombocytopenia/ AML Appreciate hematology/oncology recommendations. H/H stable. Plt count 14 10/11. - follow CBC. - follow up with oncology and transfuse as indicated. Transfuse 1 unit platelets 10/11. Respiratory insufficiency Stable. - Continue supplemental oxygen, bronchodilators. Nausea/vomiting Not controlled by Zofran. Patient also receiving Reglan. Had adverse reaction to Phenergan. Tigan did not help. GI consult appreciated. - Haldol added by palliative care. - Continue scopolamine patch. - Pepcid. - ADAT. - continue standing Reglan, rifaximin. - add Benadryl. Atrial fibrillation with RVR Rate becomes elevated with agitation/anxiety. No anticoagulation due to thrombocytopenia. HR in the 130s 10/11. Cardiology consult appreciated. - continue sotalol per cardiology. - telemetry. Hypokalemia S/t decreased PO intake. - replete and monitor. DVT prophylaxis: SCDs. Avoid chemical prophylaxis secondary to anemia. Discharge Planning Transfer to oncology unit Balaji Escobedo DO Oct 11, 2017 11:27
--- NOTE | 2017-10-11 14:57 | EKG ---
Date Performed: 10/11/2017 Time Performed: 07:33:11 PTAGE: 67 years EKG: SINUS TACHYCARDIA MARKED RIGHT AXIS DEVIATION LOW QRS VOLTAGE SEPTAL MYOCARDIAL INFARCTION , OF INDETERMINATE AGE ABNORMAL ECG PREVIOUS TRACING : 10/01/2017 12.44 Loss of R-wave anteriorly, but largely unchanged from the p rior tracing. DOCTOR: John Noble Interpretating Date/Time 10/11/2017 14:51:33
--- NOTE | 2017-10-11 16:06 | HHI.HCPN ---
Reason for visit a. To assist with evaluation and management of symptoms including: Nausea, weakness b. To assist medical decision maker(s) with: better understanding of current medical conditions; weighing benefits/burdens of medical treatment options; making medical treatment decisions. Subjective/Interval History Patient seen to follow-up on symptom control and goals of care. She remains nauseated but it is improving with the administration of Marinol. She states that none of the other medications have had any significant effect on her nausea. Her nausea is continuous, worsened with any intake of food or liquid. It started right after her diagnosis last March when she initiated chemotherapy and has been fairly continuous since that time. It results in some dry heaves and vomiting of clear fluid. She is able to only take sips of Ensure. Her daughter is bringing her her favorite foods and drink which the patient states is helping. She is currently receiving Marinol 5 mg daily at 11 AM and 4 PM. She remains weak, likely from prolonged bedbound status and decreased nutritional intake. This symptom has worsened with the recurrence of atrial fibrillation/flutter with rapid ventricular response. Her heart rate has been in the 120s-130s all day. Cardiology has been consulted and has added sotalol 80 mg twice daily. She is participating with Physical Therapy and Occupational Therapy. She uses a wheeled walker for ambulation. Upper extremity strength is gauged at 3/5 bilaterally. Occupational therapy is recommending continued therapy at discharge. Physical therapy notes an increase in activities since prior assessment requiring less assistance and increased gait distance. Clinical data * Laboratory: WBC 15.9, hemoglobin 8.3, hematocrit 24.7, platelets 14,000, sodium 140, potassium 3.9, BUN 5, creatinine 0.86, protein corrected calcium 8.7 , magnesium 1.7, total protein 4.7. * Vital signs: BP 121/64, heart rate 123, respiratory rate 15, oxygen saturation 93% on 2 L nasal cannula, T-MAX 100.5. Patient is seen lying in bed, lethargic, arousable, states she is having difficulty getting adequate sleep due to her recurrent nausea. . Family/friend interactions No family at bedside during this visit. . Advance Directives Living Will: Copy in medical record Health Care Surrogate: Copy in medical record Durable Power of Oil Pipeline Operator: Never completed Advance Directive Specifics Date completed: 03/30/17 Health Care Surrogate(s): HCS/son Sarthak Miguel Alternate/daughter Jerri Miguel . . Documented care wishes: Living will on chart. . Objective Vital Signs Date Time Temp Pulse Resp B/P (MAP) Pulse Ox O2 Delivery O2 Flow Rate FiO2 10/11/17 12:28 93 Nasal Cannula 2.00 10/11/17 12:00 123 10/11/17 12:00 99.3 123 15 121/64 (83) 99 10/11/17 11:15 24 10/11/17 08:00 98.7 134 22 105/55 (72) 96 10/11/17 08:00 134 10/11/17 04:00 100.5 130 21 147/85 (105) 99 10/11/17 04:00 132 10/11/17 00:00 98.8 120 17 98/61 (73) 98 10/11/17 00:00 120 10/10/17 21:40 98 Nasal Cannula 2.00 10/10/17 20:00 82 10/10/17 20:00 99.1 82 20 100/57 (71) 96 10/10/17 16:00 78 10/10/17 16:00 98.0 78 23 95/56 (69) 94 Intake & Output 10/11/17 10/11/17 07:00 19:00 Intake Total 580 ml 206 ml Balance 580 ml 206 ml Intake Oral 280 ml IV Total 300 ml Platelets 186 ml Blood Product IV Normal Saline Flush 20 ml # Voids 3 Physical Exam CONSTITUTIONAL/GENERAL: This is an adequately nourished patient, in no acute distress. TUBES/LINES/DRAINS: LSC central line. Right upper arm PICC ENT: Hearing grossly normal. Nose without bleeding or purulent drainage. NECK: Trachea midline. Supple, nontender. No palpable thyroid enlargement or nodularity. CARDIOVASCULAR: S1, S2, regular rhythm, tachycardic rate, no rub murmur or gallop auscultated. RESPIRATORY/CHEST: Lungs clear to auscultation bilaterally, diminished at the bases. GASTROINTESTINAL: Abdomen soft, non-tender, mildly distended. Bowel sounds present. GENITOURINARY: Without palpable bladder distension. MUSCULOSKELETAL: Extremities without clubbing, cyanosis, or edema. No joint tenderness or effusion noted. No calf tenderness. No mottling or clubbing. LYMPHATICS: No palpable cervical or supraclavicular adenopathy. NEUROLOGICAL: Lethargic, arousable. Motor and sensory grossly within normal limits. Follows commands. Cognitively sharp. Moves all extremities. PSYCHIATRIC: Anxious, cooperative. . Diagnostic Tests Laboratory Laboratory Tests Test 10/09/17 06:00 10/10/17 06:20 10/11/17 05:00 White Blood Count 16.0 TH/MM3 (4.0-11.0) 14.5 TH/MM3 (4.0-11.0) 15.9 TH/MM3 (4.0-11.0) Red Blood Count 2.82 MIL/MM3 (4.00-5.30) 2.54 MIL/MM3 (4.00-5.30) 2.68 MIL/MM3 (4.00-5.30) Hemoglobin 9.0 GM/DL (11.6-15.3) 7.9 GM/DL (11.6-15.3) 8.3 GM/DL (11.6-15.3) Hematocrit 25.9 % (35.0-46.0) 23.5 % (35.0-46.0) 24.7 % (35.0-46.0) Mean Corpuscular Volume 91.9 FL (80.0-100.0) 92.7 FL (80.0-100.0) 92.1 FL (80.0-100.0) Mean Corpuscular Hemoglobin 32.1 PG (27.0-34.0) 31.1 PG (27.0-34.0) 31.2 PG (27.0-34.0) Mean Corpuscular Hemoglobin Concent 34.9 % (32.0-36.0) 33.5 % (32.0-36.0) 33.9 % (32.0-36.0) Red Cell Distribution Width 19.5 % (11.6-17.2) 19.5 % (11.6-17.2) 19.8 % (11.6-17.2) Platelet Count 25 TH/MM3 (150-450) 19 TH/MM3 (150-450) 14 TH/MM3 (150-450) Mean Platelet Volume 11.5 FL (7.0-11.0) 9.4 FL (7.0-11.0) 10.1 FL (7.0-11.0) CBC Comment AUTO DIFF Differential Total Cells Counted 100 Neutrophils % (Manual) 4 % (16-70) Lymphocytes % 14 % (9-44) Neutrophils # (Manual) 0.6 TH/MM3 (1.8-7.7) Differential Comment FINAL DIFF MANUAL Blastocytes 82 % (0-0) Platelet Estimate LOW (NORMAL) Platelet Morphology Comment NORMAL (NORMAL) Ovalocytes 1+ (NORMAL) Acanthocytes OCC (NORMAL) Blood Urea Nitrogen 3 MG/DL (7-18) 4 MG/DL (7-18) 5 MG/DL (7-18) Creatinine 0.82 MG/DL (0.50-1.00) 0.83 MG/DL (0.50-1.00) 0.86 MG/DL (0.50-1.00) Random Glucose 90 MG/DL (74-106) 104 MG/DL (74-106) 102 MG/DL (74-106) Total Protein 4.8 GM/DL (6.4-8.2) 4.4 GM/DL (6.4-8.2) 4.7 GM/DL (6.4-8.2) Calcium Level 7.4 MG/DL (8.5-10.1) 7.1 MG/DL (8.5-10.1) 7.3 MG/DL (8.5-10.1) Sodium Level 139 MEQ/L (136-145) 138 MEQ/L (136-145) 140 MEQ/L (136-145) Potassium Level 3.9 MEQ/L (3.5-5.1) 3.4 MEQ/L (3.5-5.1) 3.9 MEQ/L (3.5-5.1) Chloride Level 106 MEQ/L (98-107) 105 MEQ/L (98-107) 106 MEQ/L (98-107) Carbon Dioxide Level 27.6 MEQ/L (21.0-32.0) 26.8 MEQ/L (21.0-32.0) 25.2 MEQ/L (21.0-32.0) Anion Gap 5 MEQ/L (5-15) 6 MEQ/L (5-15) 9 MEQ/L (5-15) Estimat Glomerular Filtration Rate 69 ML/MIN (>89) 68 ML/MIN (>89) 66 ML/MIN (>89) Protein Corrected Calcium 8.7 MG/DL (8.5-10.1) 8.6 MG/DL (8.5-10.1) 8.7 MG/DL (8.5-10.1) Magnesium Level 1.7 MG/DL (1.5-2.5) 1.7 MG/DL (1.5-2.5) . Result Diagram: 10/11/17 0500 10/11/17 0500 Microbiology Microbiology Date/Time Source Procedure Growth Status 10/02/17 12:00 Blood Other Aerobic Blood Culture - Final NO GROWTH IN 5 DAYS Complete 10/02/17 12:00 Blood Other Anaerobic Blood Culture - Final NO GROWTH IN 5 DAYS Complete 10/02/17 14:00 Stool Stool Stool Occult Blood ([facility]) - Final HEMOCCULT NEGATIVE Complete 10/01/17 15:14 Urine Clean Catch Urine Culture - Final 50-100,000 CFU/ML MIXED GRAM POSITIVE... Complete . Imaging Last Impressions Chest X-Ray 10/05/17 0000 Signed Impressions: Service Date/Time: Thursday, October 05, 2017 13:32 - CONCLUSION: Support apparatus good position, no pneumothorax. 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 Moderate ostial RUBY stenosis. Findings of mild proximal colitis. Raoul Denton MD CT Angiography 10/01/17 1251 Signed Impressions: Service Date/Time: Sunday, October 01, 2017 14:19 - CONCLUSION: 1. No evidence of pulmonary embolism. 2. Focal infiltrate within the left upper lobe posteriorly consistent with possible pneumonia. 3. Scattered atelectatic changes bilaterally. 4. Stable aneurysmal dilatation of the ascending thoracic aorta measuring 4.7 cm in greatest dimension. 5. Stable cardiomegaly and coronary artery calcifications. 6. Minimal posterior pleural thickening bilaterally. Desmond Jaimes MD . Assessment and Plan Disease Oriented Problem List: (1) AML (acute myeloid leukemia) (2) Debility (3) Sepsis Symptom Scale: (1) Nausea 0-10 Scale: Unable to quantify (continuous nausea, spitting up frequently without significant emesis, in spite of multiple medications.) (2) Weakness 0-10 Scale: Unable to quantify (continued debility from poor performance status likely due to multiple comorbidities and side effects of chemotherapy.) (3) Diarrhea 0-10 Scale: Unable to quantify (recurrent C. difficile, having difficulty tolerating oral vancomycin due to nausea.) Pertinent Non-Medical Issues Psychosocial:Originally from [place]. , has 2 adult children. 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 Spiritual:[employer] bi[employer]. Legal: Living will and designation of healthcare surrogate completed. Ethical issues impacting care:No ethical issues identified. . Important Contacts [facility]/son Sarthak Miguel daughter Jerri Miguel . . Prognosis Her prognosis is poor. She has been diagnosed with acute myeloid leukemia and per my discussion with oncology, even with treatment, her lifespan is likely to be less than a year. Without therapy, 3-6 months. 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 Without treatment her sepsis is likely to continue until hemodynamic compromise and possible . . Code Status: No Code Plan PLAN: Legal decision maker: He is currently capacitated to make her own decisions. Goals: Continuing to pursue chemotherapy and full resuscitative treatment. CODE STATUS: FULL CODE SYMPTOMS: * Nausea: She states that nausea started right after she initiated chemotherapy , her last dose was the end of August. She states Dr. Yarbrough is no longer going to give her chemotherapy due to her progressive debility and inability to eat. She has failed treatment with Tigan, Reglan, lorazepam, Protonix, Zofran, Carafate, Haldol, Phenergan, scopolamine. She states that she is receiving the most relief she has been able to achieve with Marinol, currently dosed at 2.5 mg at 11: 00 and 16: 00. This was discussed with pharmacy for dosing recommendations and their recommendation is to increase the Marinol to 2.5 mg every 6 hours for more continuous relief of symptoms and up titrate as needed to 5 mg every 6 hours which is the maximum recommended dose of 20 mg daily. They also recommend granisetron if this does not work, which the pharmacy states it stocks in an IV formulary. * Weakness: This is multi-factorial to include AML, chemotherapy and debility. She is unable to consume food or water due to her nausea which is contributing to her weakness. First goal being to control the nausea, and this appears to be improving with Marinol. She will not be receiving chemotherapy, but is likely still experiencing the side effects from her last dose at the end of August. She is only able to take sips of chocolate ensure and is frequently vomiting. At this point there is some concern for aspiration, as well, due to the recurrent vomiting and progressive weakness. Without nutrition she will certainly still continued to decline. Palliative care will continue to follow the patient during hospital course as condition evolves, to assist patient/decision-maker with understanding of their medical conditions, weighing benefits/burdens of treatment options, for clarification of goals of treatment. Additionally will assist with any symptoms of palliative concern. . Attestation To help prompt me to consider important information that might be impacting today's encounter and assessment, information from prior notes written by myself or my colleagues may have been "brought forward" into today's note. My signature on this note, however, is an attestation that I personally performed the exam, history, and/or decision-making noted today, and, unless otherwise indicated, the interactions with patient, family, and staff as well as the review of records all occurred today. I also attest that the listed assessment and stated plan reflect my best clinical judgment today based on the combination of historical information, prior notes, and today's exam/ interactions. When time spent is documented, it refers only to time spent today by the signer, or if indicated, combined time spent today by collaborating physician/nurse practitioner. . Veronica Grant Oct 11, 2017 16:06
--- NOTE | 2017-10-11 19:02 | PD.ONC.PN ---
Subjective Subjective Remarks Patient seen and examined, vital signs, labs, medications reviewed. Subjectively; patient reports feeling fatigued and weak, she tells me she try to drink some chicken soup today and also had one or 2 cans of boost today. She has stood up with the help of physical therapy but due to tachycardia had to be put back in bed. Per the nursing staff the patient has been essentially laying in bed without any significant movement or initiated. She needs to be fed and requires assistance for all activities including shifting. Objective Data Date Time Temp Pulse Resp B/P (MAP) Pulse Ox O2 Delivery O2 Flow Rate FiO2 10/11/17 16:41 17 10/11/17 16:00 124 10/11/17 16:00 98.9 124 17 130/61 (84) 96 10/11/17 12:28 93 Nasal Cannula 2.00 10/11/17 12:00 123 10/11/17 12:00 99.3 123 15 121/64 (83) 99 10/11/17 08:00 98.7 134 22 105/55 (72) 96 10/11/17 08:00 134 10/11/17 04:00 100.5 130 21 147/85 (105) 99 10/11/17 04:00 132 10/11/17 00:00 98.8 120 17 98/61 (73) 98 10/11/17 00:00 120 10/10/17 21:40 98 Nasal Cannula 2.00 10/10/17 20:00 82 10/10/17 20:00 99.1 82 20 100/57 (71) 96 10/11/17 10/11/17 10/11/17 06:59 14:59 22:59 Intake Total 580 ml 306 ml 766 ml Balance 580 ml 306 ml 766 ml Result Diagram: 10/11/17 0500 10/11/17 0500 Laboratory Results Laboratory Tests Test 10/11/17 05:00 White Blood Count 15.9 TH/MM3 Red Blood Count 2.68 MIL/MM3 Hemoglobin 8.3 GM/DL Hematocrit 24.7 % Mean Corpuscular Volume 92.1 FL Mean Corpuscular Hemoglobin 31.2 PG Mean Corpuscular Hemoglobin Concent 33.9 % Red Cell Distribution Width 19.8 % Platelet Count 14 TH/MM3 Mean Platelet Volume 10.1 FL Blood Urea Nitrogen 5 MG/DL Creatinine 0.86 MG/DL Random Glucose 102 MG/DL Total Protein 4.7 GM/DL Calcium Level 7.3 MG/DL Magnesium Level 1.7 MG/DL Sodium Level 140 MEQ/L Potassium Level 3.9 MEQ/L Chloride Level 106 MEQ/L Carbon Dioxide Level 25.2 MEQ/L Anion Gap 9 MEQ/L Estimat Glomerular Filtration Rate 66 ML/MIN Protein Corrected Calcium 8.7 MG/DL Administered Medications Medications (Trade) Dose Ordered Sig/Tylor Route PRN Reason Start Time Stop Time Status Last Admin Dose Admin Sodium Chloride (NS Flush) 2 ml UNSCH PRN IV FLUSH FLUSH AFTER USING IV ACCESS 10/01/17 12:45 10/03/17 08:27 Albuterol/ Ipratropium (Duoneb Neb) 1 ampule Q2HR NEB PRN INH WHEEZING 10/01/17 14:00 10/11/17 03:53 Chlorhexidine Gluconate (Chlorhexidine 2% Cloth) Taper DAILY@04 TOP 10/02/17 04:00 09/28/18 03:59 10/08/17 03:36 Potassium Chloride 100 ml @ 50 mls/hr Q2H PRN IV For Potassium 2.8 - 3.2 mEq/L 10/01/17 15:00 10/07/17 13:38 Potassium Chloride 100 ml @ 25 mls/hr UNSCH PRN IV For Potassium 3.3 - 3.5 mEq/L 10/01/17 15:00 10/10/17 08:46 Potassium Chloride 100 ml @ 50 mls/hr Q2H PRN IV For Potassium 3.3 - 3.5 mEq/L 10/01/17 15:00 10/02/17 04:00 Magnesium Sulfate 2 gm/Sodium Chloride 100 ml @ 50 mls/hr UNSCH PRN IV For Magnesium 1.2 - 1.6 mg/dL 10/01/17 15:00 10/03/17 11:31 Sodium Phosphate 30 mmol/Sodium Chloride 250 ml @ 42 mls/hr UNSCH PRN IV For Phosphorus < 2.5 mg/dL 10/01/17 15:00 10/03/17 13:13 Potassium Phosphate 30 mmol/ Sodium Chloride 260 ml @ 42 mls/hr UNSCH PRN IV SEE LABEL COMMENTS 10/01/17 15:00 10/05/17 06:51 Dextrose (D50w (Vial) Inj) 50 ml UNSCH PRN IV PUSH HYPOGLYCEMIA-SEE COMMENTS 10/01/17 15:00 10/04/17 20:25 Morphine Sulfate (Morphine Inj) 2 mg Q3H PRN IV PUSH pain 6-10 10/01/17 21:30 10/11/17 16:32 Ondansetron HCl (Zofran Inj) 4 mg Q6HR IV PUSH 10/02/17 12:00 10/11/17 17:54 Sucralfate (Carafate Liq) 1 gm ACHS PO 10/03/17 12:00 10/11/17 16:32 Pantoprazole Sodium (Protonix Inj) 40 mg Q12HR IV PUSH 10/03/17 11:30 10/11/17 08:28 Lorazepam (Ativan) 0.5 mg Q8H PRN PO ANXIETY 10/03/17 16:00 10/11/17 04:36 Nystatin (Mycostatin Liq) 5 ml QID SWISH-SWAL 10/04/17 18:00 10/11/17 17:54 Metoclopramide HCl (Reglan Inj) 10 mg Q8HR IM 10/04/17 22:00 10/11/17 14:41 Rifaximin (Xifaxan) 550 mg BID PO 10/04/17 21:00 10/11/17 08:28 Metronidazole 100 ml @ 100 mls/hr Q8H IV 10/04/17 16:00 10/11/17 15:21 Levothyroxine Sodium (Synthroid) 25 mcg DAILY@0600 PO 10/06/17 06:00 10/11/17 05:03 Haloperidol Lactate (Haldol Inj) 0.5 mg Q6HR PRN IV PUSH MILD NAUSEA OR VOMITING 10/05/17 14:15 10/07/17 23:48 Haloperidol Lactate (Haldol Inj) 1 mg Q6HR PRN IV PUSH SEVERE NAUSEA AND VOMITING 10/05/17 16:15 10/10/17 02:33 Vancomycin HCl (Vancomycin 25 Mg/ml Liq) 125 mg QID PO 10/06/17 10:00 10/11/17 17:54 Non-Formulary Medication 1 ea Q3D T-DERMAL 10/06/17 10:00 10/09/17 11:02 Potassium Chloride/Dextrose/ Sod Cl 1,000 ml @ 50 mls/hr Q20H IV 10/07/17 18:15 10/11/17 04:38 Dronabinol (Marinol) 2.5 mg BID@11,16 PO 10/09/17 16:00 10/11/17 15:28 Sotalol HCl (Betapace) 80 mg Q12HR PO 10/10/17 21:00 10/11/17 08:33 Diphenhydramine HCl (Benadryl) 25 mg Q6H PO 10/11/17 09:00 10/11/17 14:30 Objective Remarks GENERAL: Elderly and chronically ill-appearing female, laying in bed, she appears to being generally weak and frail. SKIN: Cool and dry. HEAD: Normocephalic. EYES: No injection or drainage. Conjunctivae are pale sclerae nonicteric. NECK: Supple, trachea midline. CARDIOVASCULAR: Irregular rhythm, tachycardic, S1 and S2 no obvious murmurs or gallops. RESPIRATORY: Poor inspiratory effort, decreased bibasilar breath sounds. GASTROINTESTINAL: Protuberant belly, soft, no obvious tenderness, no tenderness. EXTREMITIES: No cyanosis, or edema. MUSCULOSKELETAL: Atrophic musculature, decreased muscle mass and tone. NEUROLOGICAL: No obvious focal deficit. Awake, alert, and oriented x3. Assessment/Plan Assessment 67y/o female with AML, admitted with intractable nausea/vomiting. HPI (brought forward from initial consult for continuity of care): status post four cycles of Dacogen. She was initiated on treatment in February of 2017. has received four cycles thus far with the most recent cycle completed 7 prior to current admission. She presented to hospital three days after her most recent discharge. She was admitted to the hospital at that time with C-diff colitis. The patient reports symptoms of abdominal pain, nausea, inability tolerate oral intake and generalized weakness and fatigue. She was unable to care for herself at home even with the help of her daughter and was brought into [place] ER last night. The patient was noted to be tachycardiac and hypotensive. She was assessed to have severe sepsis likely secondary to C-diff colitis and was admitted to the hospital for IV fluid hydration and antibiotic therapy. Plan 1. AML: s/p C4 Dacogen about 2 weeks ago. Poor overall prognosis secondary to worsening ECOG performance status and worsening nutritional status. She continues to have a high circulating blast percentage. 2. Nausea: on scheduled Zofran and scopolamine patch and has as needed compazine and ativan. does not want feeding tube. will start Marinol. Nutritional intake remains minimal, nutritional labs indicate protein calorie malnutrition. 3. C. difficile colitis related sepsis: on IV Flagyl + PO Vanco. 4. A. fib with RVR: Now on a diltiazem drip. Continues to have sustained tachycardia into the 120s. Disposition: Patient remained in the critical care unit, she is on a diltiazem drip which precludes transfer out to the oncology unit. Her ECOG performance status continues to worsen and unfortunately she is showing no initiative or ambition or motivation to contribute to her own rehabilitation. Tried to talk to her about end-of-life care/hospice and though she seems to understand the appropriateness of hospice she tells me she would prefer to continue being treated aggressively. She tells me she wants to go home but I explained to her that the only way she will be able to go home in the short term future is if she accepts palliation/hospice. She tells me she is looking for [id number] care at home without which she will not accept discharge from the hospital. She will not accept discharged to a group home facility either because of previous poor experience. She declines hospice evaluation at this time. I am unable to offer this patient any additional therapeutic interventions at this time due to her poor performance status, poor nutritional status and ongoing cardiac issues. She is hospice appropriate. Roberto Yarbrough MD Oct 11, 2017 19:02
--- NOTE | 2017-10-11 19:21 | PD.CARD.PN ---
Subjective Subjective Remarks No CP or SOB, still tachycardic Objective Medications Current Medications Medications (Trade) Dose Ordered Sig/Tylor Route Start Time Stop Time Status Last Admin (NS Flush) 2 ml UNSCH PRN IV FLUSH 10/01/17 12:45 10/03/17 08:27 (Duoneb Neb) 1 ampule Q2HR NEB PRN INH 10/01/17 14:00 10/11/17 03:53 Miscellaneous Information 1 Q361D XX 10/01/17 14:00 (Chlorhexidine 2% Cloth) Taper DAILY@04 TOP 10/02/17 04:00 09/28/18 03:59 10/08/17 03:36 (Chlorhexidine 2% Cloth) 3 pack UNSCH PRN TOP 10/01/17 14:00 Potassium Chloride 100 ml @ 50 mls/hr Q2H PRN IV 10/01/17 15:00 10/07/17 13:38 Potassium Chloride 100 ml @ 50 mls/hr Q2H PRN IV 10/01/17 15:00 (K-Lyte Cl Eff) 50 meq UNSCH PRN PO 10/01/17 15:00 Potassium Chloride 100 ml @ 25 mls/hr UNSCH PRN IV 10/01/17 15:00 10/10/17 08:46 Potassium Chloride 100 ml @ 50 mls/hr Q2H PRN IV 10/01/17 15:00 10/02/17 04:00 Magnesium Sulfate 4 gm/Sodium Chloride 100 ml @ 50 mls/hr UNSCH PRN IV 10/01/17 15:00 (Mag-Ox) 800 mg UNSCH PRN PO 10/01/17 15:00 Magnesium Sulfate 2 gm/Sodium Chloride 100 ml @ 50 mls/hr UNSCH PRN IV 10/01/17 15:00 10/03/17 11:31 (K-Phos) 2,000 mg Q4H PRN PO 10/01/17 15:00 Sodium Phosphate 30 mmol/Sodium Chloride 250 ml @ 42 mls/hr UNSCH PRN IV 10/01/17 15:00 10/03/17 13:13 (K-Phos) 2,000 mg UNSCH PRN PO/TUBE 10/01/17 15:00 Potassium Phosphate 30 mmol/ Sodium Chloride 260 ml @ 42 mls/hr UNSCH PRN IV 10/01/17 15:00 2/9/18 06:51 (D50w (Vial) Inj) 50 ml UNSCH PRN IV PUSH 10/01/17 15:00 10/04/17 20:25 (Glucagon Inj) 1 mg UNSCH PRN OTHER 10/01/17 15:00 (NovoLIN R SUPPLEMENTAL SCALE) 1 Q6H SQ 10/01/17 15:00 (Morphine Inj) 2 mg Q3H PRN IV PUSH 10/01/17 21:30 10/11/17 16:32 (Tylenol) 650 mg Q4H PRN PO 10/01/17 21:30 (Zofran Inj) 4 mg Q6HR IV PUSH 10/02/17 12:00 10/11/17 17:54 (Carafate Liq) 1 gm ACHS PO 10/03/17 12:00 10/11/17 16:32 (Protonix Inj) 40 mg Q12HR IV PUSH 10/03/17 11:30 10/11/17 08:28 (Ativan) 0.5 mg Q8H PRN PO 10/03/17 16:00 10/11/17 04:36 Diltiazem HCl 125 mg/Sodium Chloride 125 ml @ 5 mls/hr TITRATE PRN IV 10/04/17 08:30 (Mycostatin Liq) 5 ml QID SWISH-SWAL 10/04/17 18:00 10/11/17 17:54 (Reglan Inj) 10 mg Q8HR IM 10/04/17 22:00 10/11/17 14:41 (Xifaxan) 550 mg BID PO 10/04/17 21:00 10/11/17 08:28 Metronidazole 100 ml @ 100 mls/hr Q8H IV 10/04/17 16:00 10/11/17 15:21 (Synthroid) 25 mcg DAILY@0600 PO 10/06/17 06:00 10/11/17 05:03 (Haldol Inj) 0.5 mg Q6HR PRN IV PUSH 10/05/17 14:15 10/07/17 23:48 (Haldol Inj) 1 mg Q6HR PRN IV PUSH 10/05/17 16:15 10/10/17 02:33 (Vancomycin 25 Mg/ml Liq) 125 mg QID PO 10/06/17 10:00 10/11/17 17:54 Non-Formulary Medication 1 ea Q3D T-DERMAL 10/06/17 10:00 10/09/17 11:02 Potassium Chloride/Dextrose/ Sod Cl 1,000 ml @ 50 mls/hr Q20H IV 10/07/17 18:15 10/11/17 04:38 (Marinol) 2.5 mg BID@11,16 PO 10/09/17 16:00 10/11/17 15:28 (Betapace) 80 mg Q12HR PO 10/10/17 21:00 10/11/17 08:33 (Benadryl) 25 mg Q6H PO 10/11/17 09:00 10/11/17 14:30 Vital Signs / I&O Vital Signs Date Time Temp Pulse Resp B/P (MAP) Pulse Ox O2 Delivery O2 Flow Rate FiO2 10/11/17 16:41 17 10/11/17 16:00 124 10/11/17 16:00 98.9 124 17 130/61 (84) 96 10/11/17 12:28 93 Nasal Cannula 2.00 10/11/17 12:00 123 10/11/17 12:00 99.3 123 15 121/64 (83) 99 10/11/17 08:00 98.7 134 22 105/55 (72) 96 10/11/17 08:00 134 10/11/17 04:00 100.5 130 21 147/85 (105) 99 10/11/17 04:00 132 10/11/17 00:00 98.8 120 17 98/61 (73) 98 10/11/17 00:00 120 10/10/17 21:40 98 Nasal Cannula 2.00 10/10/17 20:00 82 10/10/17 20:00 99.1 82 20 100/57 (71) 96 I/O 10/10/17 10/10/17 10/10/17 10/11/17 10/11/17 10/11/17 07:00 15:00 23:00 07:00 15:00 23:00 Intake Total 350 ml 200 ml 3419 ml 580 ml 306 ml 766 ml Output Total 350 ml Balance 350 ml 200 ml 3069 ml 580 ml 306 ml 766 ml Intake Oral 350 ml 720 ml 280 ml 480 ml IV Total 200 ml 2699 ml 300 ml 100 ml 100 ml Platelets 186 ml 186 ml Blood Product IV Normal Saline Flush 20 ml Output Urine Total 350 ml # Voids 5 3 3 6 # Bowel Movements 0 0 Physical Exam GENERAL: In NAD SKIN: Warm and dry. HEAD: Normocephalic. EYES: No scleral icterus. No injection or drainage. NECK: Supple, trachea midline. No JVD or lymphadenopathy. CARDIOVASCULAR: Tachy, reg, without murmurs, gallops, or rubs. RESPIRATORY: Breath sounds equal bilaterally. No accessory muscle use. GASTROINTESTINAL: Abdomen soft, non-tender, nondistended. MUSCULOSKELETAL: No cyanosis, or edema. Laboratory Laboratory Tests Test 10/11/17 05:00 White Blood Count 15.9 TH/MM3 Red Blood Count 2.68 MIL/MM3 Hemoglobin 8.3 GM/DL Hematocrit 24.7 % Mean Corpuscular Volume 92.1 FL Mean Corpuscular Hemoglobin 31.2 PG Mean Corpuscular Hemoglobin Concent 33.9 % Red Cell Distribution Width 19.8 % Platelet Count 14 TH/MM3 Mean Platelet Volume 10.1 FL Blood Urea Nitrogen 5 MG/DL Creatinine 0.86 MG/DL Random Glucose 102 MG/DL Total Protein 4.7 GM/DL Calcium Level 7.3 MG/DL Magnesium Level 1.7 MG/DL Sodium Level 140 MEQ/L Potassium Level 3.9 MEQ/L Chloride Level 106 MEQ/L Carbon Dioxide Level 25.2 MEQ/L Anion Gap 9 MEQ/L Estimat Glomerular Filtration Rate 66 ML/MIN Protein Corrected Calcium 8.7 MG/DL Assessment and Plan Problem List: (1) Atrial fibrillation with RVR ICD Codes: I48.91 - Unspecified atrial fibrillation Status: Acute (2) Sepsis ICD Codes: A41.9 - Sepsis, unspecified organism Status: Resolved (3) AML (acute myeloid leukemia) ICD Codes: C92.00 - Acute myeloblastic leukemia, not having achieved remission Status: Acute (4) Anemia ICD Codes: D64.9 - Anemia, unspecified Status: Acute (5) Thrombocytopenia ICD Codes: D69.6 - Thrombocytopenia, unspecified Status: Acute Assessment and Plan Still tachycardic. Continue sotalol. Add low dose digoxin since BP is low. Increase activity. Continue monitoring. Nathanael Pretty MD Oct 11, 2017 19:21
[2017-10-11] MEDS ORDERED: DIGOXIN 0.125 MG TAB PO ONE (20:00)
[2017-10-12] VITALS (17 sets, daily range): BP systolic 101–113; BP diastolic 67–72; PULSE 72–200; RESP 16; TEMP 98–98.5; O2SAT 92–97
[2017-10-12] MEDS: ONDANSETRON HCL 4 MG/2 ML VIAL IV PUSH SCH ×5 (00:24→22:37)
[2017-10-12] MEDS: LORazepam 0.5 MG TAB PO PRN ×2 (00:25→22:37)
[2017-10-12] MEDS: metroNIDAZOLE 500 MG INJ 100 ML IV SCH ×4 (00:25→22:37)
[2017-10-12] MEDS: CHLORHEXIDINE GLUCONATE 2 % 1 PACK (2 CLOTHS) TOP SCH (02:01)
[2017-10-12] MEDS: INSULIN NovoLIN REGULAR SUPPLEMENTAL SCALE SQ SCH ×4 (03:00→20:54)
[2017-10-12] MEDS: diphenhydrAMINE HCL 25 MG CAP PO SCH ×4 (03:07→20:47)
[2017-10-12] MEDS: MORPHINE SULFATE 2 MG/ML INJ IV PUSH PRN ×2 (03:08→17:11)
[2017-10-12] MEDS: LEVOTHYROXINE SODIUM 25 MCG TAB PO SCH (05:07)
[2017-10-12] MEDS: METOCLOPRAMIDE HCL 10 MG/2 ML VIAL IM SCH ×3 (05:09→20:48)
[2017-10-12 05:48] LABS: HEMATOCRIT 22.5 % (35.0-46.0); HEMOGLOBIN 7.6 GM/DL (11.6-15.3); MEAN CELL VOLUME 92.4 FL (80.0-100.0); MEAN CORPUSCULAR HEMOGLOBIN 31.3 PG (27.0-34.0); MEAN CORPUSCULAR HGB CONC 33.9 % (32.0-36.0); MEAN PLATELET VOLUME 9.5 FL (7.0-11.0); PLATELET COUNT 31 TH/MM3 (150-450); RED BLOOD COUNT 2.43 MIL/MM3 (4.00-5.30); RED CELL DISTRIBUTION WIDTH 19.8 % (11.6-17.2); WHITE BLOOD COUNT 13.6 TH/MM3 (4.0-11.0)
[2017-10-12 06:03] LABS: BICARBONATE 26.2 MEQ/L (21.0-32.0); CALCIUM 6.9 MG/DL (8.5-10.1); CREATININE 0.7 MG/DL (0.50-1.00); MAGNESIUM 1.7 MG/DL (1.5-2.5)
[2017-10-12 06:15] LABS: CALCIUM-PROTEIN CORRECTED 8.3 MG/DL (8.5-10.1); TOTAL PROTEIN 4.5 GM/DL (6.4-8.2)
[2017-10-12] MEDS: NYSTATIN SUSP 500,000 U/5 ML CUP SWISH-SWAL SCH ×4 (08:53→20:47)
[2017-10-12] MEDS: SOTALOL HCL 80 MG TAB PO SCH ×2 (08:53→20:47)
[2017-10-12] MEDS: SUCRALFATE 1 GM/10 ML CUP PO SCH ×4 (08:54→20:51)
[2017-10-12] MEDS: DIGOXIN 0.125 MG TAB PO SCH (08:54)
[2017-10-12] MEDS: PANTOPRAZOLE SODIUM 40 MG VIAL IV PUSH SCH ×2 (08:54→20:48)
[2017-10-12] MEDS: VANCOMYCIN 25 MG/ML SUSP 100 ML BOTTLE PO SCH ×4 (09:00→20:57)
[2017-10-12] MEDS: RIFAXIMIN 550 MG TAB PO SCH ×2 (09:11→20:47)
[2017-10-12] MEDS: DRONABINOL 2.5 MG CAP PO SCH ×2 (11:00→17:15)
[2017-10-12] MEDS: [UNRECOGNIZED DRUG - REMARK] T-DERMAL SCH (12:54)
--- NOTE | 2017-10-12 17:05 | PD.CARD.PN ---
Subjective Subjective Remarks No CP or SOB, feels better Objective Medications Current Medications Medications (Trade) Dose Ordered Sig/Tylor Route Start Time Stop Time Status Last Admin (NS Flush) 2 ml UNSCH PRN IV FLUSH 10/01/17 12:45 10/03/17 08:27 (Duoneb Neb) 1 ampule Q2HR NEB PRN INH 10/01/17 14:00 10/11/17 03:53 Miscellaneous Information 1 Q361D XX 10/01/17 14:00 (Chlorhexidine 2% Cloth) Taper DAILY@04 TOP 10/02/17 04:00 09/28/18 03:59 10/08/17 03:36 (Chlorhexidine 2% Cloth) 3 pack UNSCH PRN TOP 10/01/17 14:00 Potassium Chloride 100 ml @ 50 mls/hr Q2H PRN IV 10/01/17 15:00 10/07/17 13:38 Potassium Chloride 100 ml @ 50 mls/hr Q2H PRN IV 10/01/17 15:00 (K-Lyte Cl Eff) 50 meq UNSCH PRN PO 10/01/17 15:00 Potassium Chloride 100 ml @ 25 mls/hr UNSCH PRN IV 10/01/17 15:00 10/10/17 08:46 Potassium Chloride 100 ml @ 50 mls/hr Q2H PRN IV 10/01/17 15:00 10/02/17 04:00 Magnesium Sulfate 4 gm/Sodium Chloride 100 ml @ 50 mls/hr UNSCH PRN IV 10/01/17 15:00 (Mag-Ox) 800 mg UNSCH PRN PO 10/01/17 15:00 Magnesium Sulfate 2 gm/Sodium Chloride 100 ml @ 50 mls/hr UNSCH PRN IV 10/01/17 15:00 10/03/17 11:31 (K-Phos) 2,000 mg Q4H PRN PO 10/01/17 15:00 Sodium Phosphate 30 mmol/Sodium Chloride 250 ml @ 42 mls/hr UNSCH PRN IV 10/01/17 15:00 10/03/17 13:13 (K-Phos) 2,000 mg UNSCH PRN PO/TUBE 10/01/17 15:00 Potassium Phosphate 30 mmol/ Sodium Chloride 260 ml @ 42 mls/hr UNSCH PRN IV 10/01/17 15:00 10/05/17 06:51 (D50w (Vial) Inj) 50 ml UNSCH PRN IV PUSH 10/01/17 15:00 10/04/17 20:25 (Glucagon Inj) 1 mg UNSCH PRN OTHER 10/01/17 15:00 (NovoLIN R SUPPLEMENTAL SCALE) 1 Q6H SQ 10/01/17 15:00 (Morphine Inj) 2 mg Q3H PRN IV PUSH 10/01/17 21:30 10/12/17 03:08 (Tylenol) 650 mg Q4H PRN PO 10/01/17 21:30 (Zofran Inj) 4 mg Q6HR IV PUSH 10/02/17 12:00 10/12/17 12:50 (Carafate Liq) 1 gm ACHS PO 10/03/17 12:00 10/12/17 12:50 (Protonix Inj) 40 mg Q12HR IV PUSH 10/03/17 11:30 10/12/17 08:54 (Ativan) 0.5 mg Q8H PRN PO 10/03/17 16:00 10/12/17 00:25 Diltiazem HCl 125 mg/Sodium Chloride 125 ml @ 5 mls/hr TITRATE PRN IV 10/04/17 08:30 (Mycostatin Liq) 5 ml QID SWISH-SWAL 10/04/17 18:00 10/12/17 14:31 (Reglan Inj) 10 mg Q8HR IM 10/04/17 22:00 10/12/17 14:31 (Xifaxan) 550 mg BID PO 10/04/17 21:00 10/12/17 09:11 Metronidazole 100 ml @ 100 mls/hr Q8H IV 10/04/17 16:00 10/12/17 08:51 (Synthroid) 25 mcg DAILY@0600 PO 10/06/17 06:00 10/12/17 05:07 (Haldol Inj) 0.5 mg Q6HR PRN IV PUSH 10/05/17 14:15 10/07/17 23:48 (Haldol Inj) 1 mg Q6HR PRN IV PUSH 10/05/17 16:15 10/10/17 02:33 (Vancomycin 25 Mg/ml Liq) 125 mg QID PO 10/06/17 10:00 10/12/17 12:56 Non-Formulary Medication 1 ea Q3D T-DERMAL 10/06/17 10:00 10/12/17 12:54 Potassium Chloride/Dextrose/ Sod Cl 1,000 ml @ 50 mls/hr Q20H IV 10/07/17 18:15 10/11/17 04:38 (Marinol) 2.5 mg BID@11,16 PO 10/09/17 16:00 10/11/17 15:28 (Betapace) 80 mg Q12HR PO 10/10/17 21:00 10/12/17 08:53 (Benadryl) 25 mg Q6H PO 10/11/17 09:00 10/12/17 14:31 (Lanoxin) 0.125 mg DAILY PO 10/12/17 09:00 10/12/17 08:54 Vital Signs / I&O Vital Signs Date Time Temp Pulse Resp B/P (MAP) Pulse Ox O2 Delivery O2 Flow Rate FiO2 10/12/17 12:34 98.5 78 16 110/69 (83) 96 10/12/17 06:00 113 10/12/17 05:00 116 10/12/17 04:00 98.0 114 16 101/72 (82) 97 10/12/17 04:00 114 10/12/17 03:00 118 10/12/17 02:00 200 10/12/17 01:00 116 10/12/17 00:19 98.2 119 16 113/67 (82) 96 10/12/17 00:00 116 10/11/17 23:00 120 10/11/17 22:00 122 10/11/17 21:05 123 I/O 10/11/17 10/11/17 10/11/17 10/12/17 10/12/17 10/12/17 07:00 15:00 23:00 07:00 15:00 23:00 Intake Total 580 ml 306 ml 766 ml 480 ml Balance 580 ml 306 ml 766 ml 480 ml Intake Oral 280 ml 480 ml 480 ml IV Total 300 ml 100 ml 100 ml Platelets 186 ml 186 ml Blood Product IV Normal Saline Flush 20 ml # Voids 3 6 5 Physical Exam GENERAL: In NAD SKIN: Warm and dry. HEAD: Normocephalic. EYES: No scleral icterus. No injection or drainage. NECK: Supple, trachea midline. No JVD or lymphadenopathy. CARDIOVASCULAR: Reg, without murmurs, gallops, or rubs. RESPIRATORY: Breath sounds equal bilaterally. No accessory muscle use. GASTROINTESTINAL: Abdomen soft, non-tender, nondistended. MUSCULOSKELETAL: No cyanosis, or edema. Laboratory Laboratory Tests Test 10/12/17 05:05 White Blood Count 13.6 TH/MM3 Red Blood Count 2.43 MIL/MM3 Hemoglobin 7.6 GM/DL Hematocrit 22.5 % Mean Corpuscular Volume 92.4 FL Mean Corpuscular Hemoglobin 31.3 PG Mean Corpuscular Hemoglobin Concent 33.9 % Red Cell Distribution Width 19.8 % Platelet Count 31 TH/MM3 Mean Platelet Volume 9.5 FL Blood Urea Nitrogen 5 MG/DL Creatinine 0.70 MG/DL Random Glucose 75 MG/DL Total Protein 4.5 GM/DL Calcium Level 6.9 MG/DL Magnesium Level 1.7 MG/DL Sodium Level 138 MEQ/L Potassium Level 4.0 MEQ/L Chloride Level 106 MEQ/L Carbon Dioxide Level 26.2 MEQ/L Anion Gap 6 MEQ/L Estimat Glomerular Filtration Rate 83 ML/MIN Protein Corrected Calcium 8.3 MG/DL Assessment and Plan Problem List: (1) Atrial fibrillation with RVR ICD Codes: I48.91 - Unspecified atrial fibrillation Status: Acute (2) Sepsis ICD Codes: A41.9 - Sepsis, unspecified organism Status: Resolved (3) AML (acute myeloid leukemia) ICD Codes: C92.00 - Acute myeloblastic leukemia, not having achieved remission Status: Acute (4) Anemia ICD Codes: D64.9 - Anemia, unspecified Status: Acute (5) Thrombocytopenia ICD Codes: D69.6 - Thrombocytopenia, unspecified Status: Acute Assessment and Plan No new cardiac issues. Continue sotalol. Continue low dose digoxin. Increase activity. Continue monitoring. D/w pt and family. Nathanael Pretty MD Oct 12, 2017 17:05
--- NOTE | 2017-10-12 18:18 | HHI.PR ---
Subjective Remarks Very pleasant 67 years old female speak Vietnamese D/W in her language, she told me she feels bored," something wrong with me " No diarrhea Objective Vitals Vital Signs Date Time Temp Pulse Resp B/P (MAP) Pulse Ox O2 Delivery O2 Flow Rate FiO2 10/12/17 12:34 98.5 78 16 110/69 (83) 96 10/12/17 06:00 113 10/12/17 05:00 116 10/12/17 04:00 98.0 114 16 101/72 (82) 97 10/12/17 04:00 114 10/12/17 03:00 118 10/12/17 02:00 200 10/12/17 01:00 116 10/12/17 00:19 98.2 119 16 113/67 (82) 96 10/12/17 00:00 116 10/11/17 23:00 120 10/11/17 22:00 122 10/11/17 21:05 123 I/O 10/11/17 10/11/17 10/11/17 10/12/17 10/12/17 10/12/17 07:00 15:00 23:00 07:00 15:00 23:00 Intake Total 580 ml 306 ml 766 ml 480 ml Balance 580 ml 306 ml 766 ml 480 ml Intake Oral 280 ml 480 ml 480 ml IV Total 300 ml 100 ml 100 ml Platelets 186 ml 186 ml Blood Product IV Normal Saline Flush 20 ml # Voids 3 6 5 Result Diagram: 10/12/17 0505 10/12/17 0505 Objective Remarks GENERAL: This is a well-nourished, well-developed patient, in no apparent distress. CARDIOVASCULAR: Regular rate and rhythm without murmurs, gallops, or rubs. RESPIRATORY: Clear to auscultation. Breath sounds equal bilaterally. No wheezes , rales, or rhonchi. GASTROINTESTINAL: Abdomen soft, non-tender, nondistended. Normal active bowel sounds MUSCULOSKELETAL: Extremities without clubbing, cyanosis, or edema. NEURO: Alert & Oriented x4 to person, place, time, situation. Moves all ext x4 Procedures None Date of Insertion: Sep 21, 2017 Line: PICC A/P Assessment and Plan 10/12: Continue current care Repeat CBC BMP in a.m., monitor temperature, blood pressure A/P: Sepsis Secondary to C. difficile colitis. Appreciate infectious disease recommendations. No further diarrhea. - Continue IV Flagyl, oral vancomycin. Leukocytosis improved. Anemia/ thrombocytopenia/ AML Appreciate hematology/oncology recommendations. H/H stable. Plt count 14 10/11. - follow CBC. - follow up with oncology and transfuse as indicated. Transfuse 1 unit platelets 10/11. Respiratory insufficiency Stable. - Continue supplemental oxygen, bronchodilators. Nausea/vomiting Not controlled by Zofran. Patient also receiving Reglan. Had adverse reaction to Phenergan. Tigan did not help. GI consult appreciated. - Haldol added by palliative care. - Continue scopolamine patch. - Pepcid. - ADAT. - continue standing Reglan, rifaximin. - add Benadryl. Atrial fibrillation with RVR Rate becomes elevated with agitation/anxiety. No anticoagulation due to thrombocytopenia. HR in the 130s 10/11. Cardiology consult appreciated. - continue sotalol per cardiology. - telemetry. Hypokalemia S/t decreased PO intake. - replete and monitor. DVT prophylaxis: SCDs. Avoid chemical prophylaxis secondary to anemia. Eze Nagy MD Oct 12, 2017 18:18
[2017-10-12] MEDS: D5-NS + KCL 20 MEQ INJ 1,000 ML IV SCH (20:57)
[2017-10-13] VITALS (21 sets, daily range): BP systolic 89–118; BP diastolic 43–92; PULSE 88–118; RESP 16–20; TEMP 98.2–99.1; O2SAT 91–97
[2017-10-13] MEDS: INSULIN NovoLIN REGULAR SUPPLEMENTAL SCALE SQ SCH ×4 (03:00→20:56)
[2017-10-13] MEDS: diphenhydrAMINE HCL 25 MG CAP PO SCH ×4 (03:07→20:55)
[2017-10-13] MEDS: CHLORHEXIDINE GLUCONATE 2 % 1 PACK (2 CLOTHS) TOP SCH (03:17)
[2017-10-13] MEDS: ONDANSETRON HCL 4 MG/2 ML VIAL IV PUSH SCH ×2 (04:59→12:00)
[2017-10-13] MEDS: LEVOTHYROXINE SODIUM 25 MCG TAB PO SCH (04:59)
[2017-10-13] MEDS: METOCLOPRAMIDE HCL 10 MG/2 ML VIAL IM SCH (05:00)
[2017-10-13] MEDS: MORPHINE SULFATE 2 MG/ML INJ IV PUSH PRN ×2 (05:07→15:54)
[2017-10-13] MEDS: SUCRALFATE 1 GM/10 ML CUP PO SCH ×4 (08:00→20:56)
[2017-10-13] MEDS: PANTOPRAZOLE SODIUM 40 MG VIAL IV PUSH SCH ×2 (08:51→20:56)
[2017-10-13] MEDS: SOTALOL HCL 80 MG TAB PO SCH ×2 (08:52→20:55)
[2017-10-13] MEDS: DIGOXIN 0.125 MG TAB PO SCH (08:52)
[2017-10-13] MEDS: metroNIDAZOLE 500 MG INJ 100 ML IV SCH ×2 (08:56→16:07)
[2017-10-13] MEDS: RIFAXIMIN 550 MG TAB PO SCH ×2 (09:00→20:56)
[2017-10-13] MEDS: NYSTATIN SUSP 500,000 U/5 ML CUP SWISH-SWAL SCH ×4 (09:00→20:57)
[2017-10-13] MEDS: VANCOMYCIN 25 MG/ML SUSP 100 ML BOTTLE PO SCH ×4 (09:00→20:56)
--- NOTE | 2017-10-13 10:47 | PD.ONC.PN ---
Subjective Subjective Remarks Afebrile overnight. Patient resting in bed. She states she feels fatigued today. She wants to get out of bed to chair. Still not eating anything. still has nausea and no appetite. Objective Data Date Time Temp Pulse Resp B/P (MAP) Pulse Ox O2 Delivery O2 Flow Rate FiO2 10/13/17 10:00 112 10/13/17 09:00 88 10/13/17 08:19 98.8 116 20 96/68 (77) 93 10/13/17 08:00 118 10/13/17 07:39 114 10/13/17 06:00 114 10/13/17 05:00 106 10/13/17 04:00 98.8 102 16 109/67 (81) 97 10/13/17 04:00 102 10/13/17 03:00 118 10/13/17 02:00 110 10/13/17 01:00 110 10/13/17 00:00 98.2 114 16 118/80 (93) 95 10/13/17 00:00 113 10/12/17 23:00 110 10/12/17 22:00 112 10/12/17 21:00 72 10/12/17 20:00 72 10/12/17 20:00 98.2 74 16 109/67 (81) 94 10/12/17 19:00 76 10/12/17 16:00 72 10/12/17 16:00 98.2 74 16 110/69 (83) 92 10/12/17 12:34 98.5 78 16 110/69 (83) 96 10/12/17 12:00 76 10/13/17 10/13/17 10/13/17 07:00 15:00 23:00 Intake Total 480 ml Balance 480 ml Result Diagram: 10/12/17 0505 10/12/17 0505 Administered Medications Medications (Trade) Dose Ordered Sig/Tylor Route PRN Reason Start Time Stop Time Status Last Admin Dose Admin Sodium Chloride (NS Flush) 2 ml UNSCH PRN IV FLUSH FLUSH AFTER USING IV ACCESS 10/01/17 12:45 10/03/17 08:27 Albuterol/ Ipratropium (Duoneb Neb) 1 ampule Q2HR NEB PRN INH WHEEZING 10/01/17 14:00 10/11/17 03:53 Chlorhexidine Gluconate (Chlorhexidine 2% Cloth) Taper DAILY@04 TOP 10/02/17 04:00 09/28/18 03:59 10/08/17 03:36 Potassium Chloride 100 ml @ 50 mls/hr Q2H PRN IV For Potassium 2.8 - 3.2 mEq/L 10/01/17 15:00 10/07/17 13:38 Potassium Chloride 100 ml @ 25 mls/hr UNSCH PRN IV For Potassium 3.3 - 3.5 mEq/L 10/01/17 15:00 10/10/17 08:46 Potassium Chloride 100 ml @ 50 mls/hr Q2H PRN IV For Potassium 3.3 - 3.5 mEq/L 10/01/17 15:00 10/02/17 04:00 Magnesium Sulfate 2 gm/Sodium Chloride 100 ml @ 50 mls/hr UNSCH PRN IV For Magnesium 1.2 - 1.6 mg/dL 10/01/17 15:00 10/03/17 11:31 Sodium Phosphate 30 mmol/Sodium Chloride 250 ml @ 42 mls/hr UNSCH PRN IV For Phosphorus < 2.5 mg/dL 10/01/17 15:00 10/03/17 13:13 Potassium Phosphate 30 mmol/ Sodium Chloride 260 ml @ 42 mls/hr UNSCH PRN IV SEE LABEL COMMENTS 10/01/17 15:00 10/05/17 06:51 Dextrose (D50w (Vial) Inj) 50 ml UNSCH PRN IV PUSH HYPOGLYCEMIA-SEE COMMENTS 10/01/17 15:00 10/04/17 20:25 Morphine Sulfate (Morphine Inj) 2 mg Q3H PRN IV PUSH pain 6-10 10/01/17 21:30 10/13/17 05:07 Ondansetron HCl (Zofran Inj) 4 mg Q6HR IV PUSH 10/02/17 12:00 10/13/17 04:59 Sucralfate (Carafate Liq) 1 gm ACHS PO 10/03/17 12:00 10/12/17 20:51 Pantoprazole Sodium (Protonix Inj) 40 mg Q12HR IV PUSH 10/03/17 11:30 10/13/17 08:51 Lorazepam (Ativan) 0.5 mg Q8H PRN PO ANXIETY 10/03/17 16:00 10/12/17 22:37 Nystatin (Mycostatin Liq) 5 ml QID SWISH-SWAL 10/04/17 18:00 10/12/17 20:47 Metoclopramide HCl (Reglan Inj) 10 mg Q8HR IM 10/04/17 22:00 10/13/17 05:00 Rifaximin (Xifaxan) 550 mg BID PO 10/04/17 21:00 10/12/17 20:47 Metronidazole 100 ml @ 100 mls/hr Q8H IV 10/04/17 16:00 10/13/17 08:56 Levothyroxine Sodium (Synthroid) 25 mcg DAILY@0600 PO 10/06/17 06:00 10/13/17 04:59 Haloperidol Lactate (Haldol Inj) 0.5 mg Q6HR PRN IV PUSH MILD NAUSEA OR VOMITING 10/05/17 14:15 10/07/17 23:48 Haloperidol Lactate (Haldol Inj) 1 mg Q6HR PRN IV PUSH SEVERE NAUSEA AND VOMITING 10/05/17 16:15 10/10/17 02:33 Vancomycin HCl (Vancomycin 25 Mg/ml Liq) 125 mg QID PO 10/06/17 10:00 10/12/17 20:57 Non-Formulary Medication 1 ea Q3D T-DERMAL 10/06/17 10:00 10/12/17 12:54 Potassium Chloride/Dextrose/ Sod Cl 1,000 ml @ 50 mls/hr Q20H IV 10/07/17 18:15 10/12/17 20:57 Dronabinol (Marinol) 2.5 mg BID@11,16 PO 10/09/17 16:00 10/12/17 17:15 Sotalol HCl (Betapace) 80 mg Q12HR PO 10/10/17 21:00 10/13/17 08:52 Diphenhydramine HCl (Benadryl) 25 mg Q6H PO 10/11/17 09:00 10/13/17 08:52 Digoxin (Lanoxin) 0.125 mg DAILY PO 10/12/17 09:00 10/13/17 08:52 Objective Remarks GENERAL: Middle aged female, sitting up in bed, appears fatigued. SKIN: Warm and dry. HEAD: Normocephalic. EYES: No injection or drainage. NECK: Supple, trachea midline. CARDIOVASCULAR: +S1/S2 RESPIRATORY: diminished at bases, anterior atkins clear. GASTROINTESTINAL: Abdomen soft, non-tender, nondistended. EXTREMITIES: No cyanosis NEUROLOGICAL: awake, no obvious focal deficit. Assessment/Plan Assessment 67y/o female with AML, admitted with intractable nausea/vomiting. HPI (brought forward from initial consult for continuity of care): status post four cycles of Dacogen. She was initiated on treatment in February of 2017. has received four cycles thus far with the most recent cycle completed 7 prior to current admission. She presented to hospital three days after her most recent discharge. She was admitted to the hospital at that time with C-diff colitis. The patient reports symptoms of abdominal pain, nausea, inability tolerate oral intake and generalized weakness and fatigue. She was unable to care for herself at home even with the help of her daughter and was brought into [place] ER last night. The patient was noted to be tachycardiac and hypotensive. She was assessed to have severe sepsis likely secondary to C-diff colitis and was admitted to the hospital for IV fluid hydration and antibiotic therapy. Plan 1. AML: s/p C4 Dacogen about 3 weeks ago. high peripheral blast count. poor prognosis. worsening performance status. 2. Nausea: continue scheduled Zofran and Scopolamine and Marinol. 3. C. difficile colitis: remains on IV Flagyl + PO Vanco. (refused Vanco this AM) 4. A. fib with RVR: on Digoxin. rates have been in 110s to 120s Disposition: Patient is hospice appropriate but would like to continue aggressive care. Attending Statement The exam, history, and the medical decision-making described in the above note were completed with the assistance of the mid-level provider. I reviewed and agree with the findings presented. I attest that I had a [id number] encounter with the patient on the same day, and personally performed and documented my assessment and findings in the medical record. Discussed at length with son at bedside in presence of pt, the finding and Dr. Yarbrough's concern about decrease in performance status. Despite lengthy discussion do not seem satisfied with explanation. Explained toxicity related to Dacogen, that nausea could be from Dacogen since extensive work up reveal no other explanation. Optimize nausea medication in consideration of patient own bias that Zofran makes her sick and that she does not want to take anything oral for nause. Discussed Zyprexa but she refused, trial Kytril instead of Zofran prn, schedule lorazepam IV, refusing PO, ok to continue w/ Marinol. DC Reglan IM. Transfuse support. Continue to monitor for any improvement in performance status. Lidia Tracey Oct 13, 2017 10:47 Juliet Lin MD Oct 13, 2017 14:08
[2017-10-13] MEDS ORDERED: GRANISETRON HCL 1 MG/ML VIAL IV PUSH PRN (11:00)
[2017-10-13] MEDS: OLANZapine 2.5 MG TAB PO SCH (11:00)
[2017-10-13 11:06] LABS: HEMATOCRIT 21.2 % (35.0-46.0); HEMOGLOBIN 7.2 GM/DL (11.6-15.3); MEAN CELL VOLUME 91.3 FL (80.0-100.0); MEAN CORPUSCULAR HGB CONC 33.9 % (32.0-36.0); MEAN PLATELET VOLUME 9.1 FL (7.0-11.0); PLATELET COUNT 26 TH/MM3 (150-450); RED BLOOD COUNT 2.33 MIL/MM3 (4.00-5.30); WHITE BLOOD COUNT 12.6 TH/MM3 (4.0-11.0)
[2017-10-13] MEDS: DRONABINOL 2.5 MG CAP PO SCH ×2 (11:39→16:07)
[2017-10-13 12:15] LABS: ACANTHOCYTES OCC (NORMAL); BLASTS 72 % (0-0); LYMPHOCYTES 7 % (9-44); METAMYELOCYTES 2 % (0-1); MONOCYTES 5 % (0-8); MYELOCYTES 6 % (0-0); NEUTROPHIL # MANUAL DIFF 1.9 TH/MM3 (1.8-7.7); OVALOCYTES 1+ (NORMAL); PLASMA CELLS 1 % (0-0); POLYS (SEG NEUTROPHILS) 5 % (16-70); PROMYELOCYTES 2 % (0-0)
[2017-10-13 13:43] LABS: BICARBONATE 27.5 MEQ/L (21.0-32.0); CALCIUM 7.4 MG/DL (8.5-10.1); CREATININE 0.77 MG/DL (0.50-1.00)
[2017-10-13 14:30] LABS: CALCIUM-PROTEIN CORRECTED 8.6 MG/DL (8.5-10.1); TOTAL PROTEIN 4.9 GM/DL (6.4-8.2)
[2017-10-13] MEDS: LORazepam 2 MG/ML VIAL IV PUSH SCH ×2 (14:39→20:55)
--- NOTE | 2017-10-13 14:49 | EKG ---
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
--- NOTE | 2017-10-13 16:41 | HHI.PR ---
Subjective Remarks Resting comfortably in bed No event overnight Denied chest and or short of breath No fever or chills Objective Vitals Vital Signs Date Time Temp Pulse Resp B/P (MAP) Pulse Ox O2 Delivery O2 Flow Rate FiO2 10/13/17 16:13 98.6 112 20 89/43 (58) 92 10/13/17 12:01 98.6 113 18 116/78 (91) 10/13/17 12:00 114 10/13/17 10:00 112 10/13/17 09:00 88 10/13/17 08:19 98.8 116 20 96/68 (77) 93 10/13/17 08:00 118 10/13/17 07:39 114 10/13/17 06:00 114 10/13/17 05:00 106 10/13/17 04:00 98.8 102 16 109/67 (81) 97 10/13/17 04:00 102 10/13/17 03:00 118 10/13/17 02:00 110 10/13/17 01:00 110 10/13/17 00:00 98.2 114 16 118/80 (93) 95 10/13/17 00:00 113 10/12/17 23:00 110 10/12/17 22:00 112 10/12/17 21:00 72 10/12/17 20:00 72 10/12/17 20:00 98.2 74 16 109/67 (81) 94 10/12/17 19:00 76 I/O 10/12/17 10/12/17 10/12/17 10/13/17 10/13/17 10/13/17 07:00 15:00 23:00 07:00 15:00 23:00 Intake Total 480 ml 600 ml 480 ml 100 ml Balance 480 ml 600 ml 480 ml 100 ml Intake Oral 480 ml 600 ml 480 ml IV Total 100 ml # Voids 5 4 6 # Bowel Movements 1 Result Diagram: 10/13/17 1055 10/13/17 1240 Objective Remarks GENERAL: This is a well-nourished, well-developed patient, in no apparent distress. SKIN: No rashes, warm and dry HEAD: Atraumatic. Normocephalic. EYES: Pupils equal round and reactive. Extraocular motions intact. No scleral icterus. ENT: Nose without bleeding, or drainage, Airway patent. NECK: Trachea midline. Supple CARDIOVASCULAR: Regular rate and rhythm without murmurs, gallops, or rubs. RESPIRATORY: Fair air entry bilaterally. No wheezes, rales, or rhonchi. GASTROINTESTINAL: Abdomen soft, non-tender, nondistended. Positive bowel sounds MUSCULOSKELETAL: Extremities without clubbing, cyanosis, or edema. Pedal pulses appreciated NEUROLOGICAL: Awake and alert. Moves all extremity. Normal speech.no focal neurological deficit Procedures None Date of Insertion: Sep 21, 2017 Line: PICC A/P Assessment and Plan 10/13: Patient refused hospice, continue current care, appreciate oncology, Repeat CBC BMP in a.m., monitor temperature, blood pressure A/P: Sepsis Secondary to C. difficile colitis. Appreciate infectious disease recommendations. No further diarrhea. - Continue IV Flagyl, oral vancomycin. Leukocytosis improved. Anemia/ thrombocytopenia/ AML Appreciate hematology/oncology recommendations. H/H stable. Plt count 14 10/11. - follow CBC. - follow up with oncology and transfuse as indicated. Transfuse 1 unit platelets 10/11. Respiratory insufficiency Stable. - Continue supplemental oxygen, bronchodilators. Nausea/vomiting Not controlled by Zofran. Patient also receiving Reglan. Had adverse reaction to Phenergan. Tigan did not help. GI consult appreciated. - Haldol added by palliative care. - Continue scopolamine patch. - Pepcid. - ADAT. - continue standing Reglan, rifaximin. - add Benadryl. Atrial fibrillation with RVR Rate becomes elevated with agitation/anxiety. No anticoagulation due to thrombocytopenia. HR in the 130s 10/11. Cardiology consult appreciated. - continue sotalol per cardiology. - telemetry. Hypokalemia S/t decreased PO intake. - replete and monitor. DVT prophylaxis: SCDs. Avoid chemical prophylaxis secondary to anemia. Eze Nagy MD Oct 13, 2017 16:41
--- NOTE | 2017-10-13 18:54 | PD.CARD.PN ---
Subjective Subjective Remarks No CP or SOB, no new c/o Objective Medications Current Medications Medications (Trade) Dose Ordered Sig/Tylor Route Start Time Stop Time Status Last Admin (NS Flush) 2 ml UNSCH PRN IV FLUSH 10/01/17 12:45 10/03/17 08:27 (Duoneb Neb) 1 ampule Q2HR NEB PRN INH 10/01/17 14:00 10/11/17 03:53 Miscellaneous Information 1 Q361D XX 10/01/17 14:00 (Chlorhexidine 2% Cloth) Taper DAILY@04 TOP 10/02/17 04:00 09/28/18 03:59 10/08/17 03:36 (Chlorhexidine 2% Cloth) 3 pack UNSCH PRN TOP 10/01/17 14:00 (D50w (Vial) Inj) 50 ml UNSCH PRN IV PUSH 10/01/17 15:00 10/04/17 20:25 (Glucagon Inj) 1 mg UNSCH PRN OTHER 10/01/17 15:00 (NovoLIN R SUPPLEMENTAL SCALE) 1 Q6H SQ 10/01/17 15:00 (Morphine Inj) 2 mg Q3H PRN IV PUSH 10/01/17 21:30 10/13/17 15:54 (Tylenol) 650 mg Q4H PRN PO 10/01/17 21:30 (Carafate Liq) 1 gm ACHS PO 10/03/17 12:00 10/12/17 20:51 (Protonix Inj) 40 mg Q12HR IV PUSH 10/03/17 11:30 10/13/17 08:51 Diltiazem HCl 125 mg/Sodium Chloride 125 ml @ 5 mls/hr TITRATE PRN IV 10/04/17 08:30 (Mycostatin Liq) 5 ml QID SWISH-SWAL 10/04/17 18:00 10/13/17 18:30 (Xifaxan) 550 mg BID PO 10/04/17 21:00 10/12/17 20:47 Metronidazole 100 ml @ 100 mls/hr Q8H IV 10/04/17 16:00 10/13/17 16:07 (Synthroid) 25 mcg DAILY@0600 PO 10/06/17 06:00 10/13/17 04:59 (Haldol Inj) 0.5 mg Q6HR PRN IV PUSH 10/05/17 14:15 Future Hold 10/07/17 23:48 (Haldol Inj) 1 mg Q6HR PRN IV PUSH 10/05/17 16:15 Future Hold 10/10/17 02:33 (Vancomycin 25 Mg/ml Liq) 125 mg QID PO 10/06/17 10:00 10/13/17 18:30 Non-Formulary Medication 1 ea Q3D T-DERMAL 10/06/17 10:00 10/12/17 12:54 Potassium Chloride/Dextrose/ Sod Cl 1,000 ml @ 50 mls/hr Q20H IV 10/07/17 18:15 10/12/17 20:57 (Marinol) 2.5 mg BID@11,16 PO 10/09/17 16:00 10/13/17 16:07 (Betapace) 80 mg Q12HR PO 10/10/17 21:00 10/13/17 08:52 (Benadryl) 25 mg Q6H PO 10/11/17 09:00 10/13/17 08:52 (Lanoxin) 0.125 mg DAILY PO 10/12/17 09:00 10/13/17 08:52 (ZyPREXA) 2.5 mg DAILY PO 10/13/17 11:00 (Kytril Inj) 1 mg Q12HR PRN IV PUSH 10/13/17 11:00 (Ativan Inj) 0.5 mg BID IV PUSH 10/13/17 14:15 10/13/17 14:39 Vital Signs / I&O Vital Signs Date Time Temp Pulse Resp B/P (MAP) Pulse Ox O2 Delivery O2 Flow Rate FiO2 10/13/17 17:00 110 10/13/17 16:13 98.6 112 20 89/43 (58) 92 109/73 (85) 10/13/17 16:00 116 10/13/17 12:01 98.6 113 18 116/78 (91) 10/13/17 12:00 114 10/13/17 10:00 112 10/13/17 09:00 88 10/13/17 08:19 98.8 116 20 96/68 (77) 93 10/13/17 08:00 118 10/13/17 07:39 114 10/13/17 06:00 114 10/13/17 05:00 106 10/13/17 04:00 98.8 102 16 109/67 (81) 97 10/13/17 04:00 102 10/13/17 03:00 118 10/13/17 02:00 110 10/13/17 01:00 110 10/13/17 00:00 98.2 114 16 118/80 (93) 95 10/13/17 00:00 113 10/12/17 23:00 110 10/12/17 22:00 112 10/12/17 21:00 72 10/12/17 20:00 72 10/12/17 20:00 98.2 74 16 109/67 (81) 94 10/12/17 19:00 76 I/O 10/12/17 10/12/17 10/12/17 10/13/17 10/13/17 10/13/17 07:00 15:00 23:00 07:00 15:00 23:00 Intake Total 480 ml 600 ml 480 ml 100 ml 140 ml Output Total 475 ml Balance 480 ml 600 ml 480 ml 100 ml -335 ml Intake Oral 480 ml 600 ml 480 ml 40 ml IV Total 100 ml 100 ml Output Urine Total 475 ml # Voids 5 4 6 2 # Bowel Movements 1 Physical Exam GENERAL: In NAD SKIN: Warm and dry. HEAD: Normocephalic. EYES: No scleral icterus. No injection or drainage. NECK: Supple, trachea midline. No JVD or lymphadenopathy. CARDIOVASCULAR: Reg, without murmurs, gallops, or rubs. RESPIRATORY: Breath sounds equal bilaterally. No accessory muscle use. GASTROINTESTINAL: Abdomen soft, non-tender, nondistended. MUSCULOSKELETAL: No cyanosis, or edema. Laboratory Laboratory Tests Test 10/13/17 10:55 10/13/17 12:40 White Blood Count 12.6 TH/MM3 Red Blood Count 2.33 MIL/MM3 Hemoglobin 7.2 GM/DL Hematocrit 21.2 % Mean Corpuscular Volume 91.3 FL Mean Corpuscular Hemoglobin 31.0 PG Mean Corpuscular Hemoglobin Concent 33.9 % Red Cell Distribution Width 20.0 % Platelet Count 26 TH/MM3 Mean Platelet Volume 9.1 FL CBC Comment AUTO DIFF Differential Total Cells Counted 100 Neutrophils % (Manual) 5 % Lymphocytes % 7 % Monocytes % 5 % Neutrophils # (Manual) 1.9 TH/MM3 Metamyelocytes 2 % Myelocytes 6 % Promyelocytes 2 % Differential Comment FINAL DIFF MANUAL Blastocytes 72 % Plasma Cells 1 % Platelet Estimate LOW Platelet Morphology Comment NORMAL Ovalocytes 1+ Acanthocytes OCC Blood Urea Nitrogen 5 MG/DL Creatinine 0.77 MG/DL Random Glucose 78 MG/DL Total Protein 4.9 GM/DL Calcium Level 7.4 MG/DL Sodium Level 139 MEQ/L Potassium Level 3.6 MEQ/L Chloride Level 106 MEQ/L Carbon Dioxide Level 27.5 MEQ/L Anion Gap 6 MEQ/L Estimat Glomerular Filtration Rate 75 ML/MIN Protein Corrected Calcium 8.6 MG/DL Assessment and Plan Problem List: (1) Atrial fibrillation with RVR ICD Codes: I48.91 - Unspecified atrial fibrillation Status: Acute (2) Sepsis ICD Codes: A41.9 - Sepsis, unspecified organism Status: Resolved (3) AML (acute myeloid leukemia) ICD Codes: C92.00 - Acute myeloblastic leukemia, not having achieved remission Status: Acute (4) Anemia ICD Codes: D64.9 - Anemia, unspecified Status: Acute (5) Thrombocytopenia ICD Codes: D69.6 - Thrombocytopenia, unspecified Status: Acute Assessment and Plan No new cardiac issues. HR still increased. Continue sotalol, increase dose. Continue digoxin. Increase activity. Continue monitoring. Nathanael Pretty MD Oct 13, 2017 18:54
[2017-10-13] MEDS ORDERED: PILL SPLITTER OTHER PRN (19:15)
[2017-10-13] MEDS: D5-NS + KCL 20 MEQ INJ 1,000 ML IV SCH (20:57)
[2017-10-13] MEDS ORDERED: LORazepam 0.5 MG TAB PO SCH (21:00)
[2017-10-14] VITALS (20 sets, daily range): BP systolic 104–117; BP diastolic 63–76; PULSE 76–115; RESP 18; TEMP 98.6–99.4; O2SAT 90–96
[2017-10-14] MEDS: metroNIDAZOLE 500 MG INJ 100 ML IV SCH ×3 (00:32→15:01)
[2017-10-14] MEDS: MORPHINE SULFATE 2 MG/ML INJ IV PUSH PRN (00:33)
[2017-10-14] MEDS: diphenhydrAMINE HCL 25 MG CAP PO SCH ×6 (03:00→21:00)
[2017-10-14] MEDS: INSULIN NovoLIN REGULAR SUPPLEMENTAL SCALE SQ SCH ×4 (03:00→20:52)
[2017-10-14] MEDS: CHLORHEXIDINE GLUCONATE 2 % 1 PACK (2 CLOTHS) TOP SCH (04:00)
[2017-10-14] MEDS: LEVOTHYROXINE SODIUM 25 MCG TAB PO SCH (05:37)
[2017-10-14] MEDS: VANCOMYCIN 25 MG/ML SUSP 100 ML BOTTLE PO SCH ×4 (08:14→20:54)
[2017-10-14] MEDS: DIGOXIN 0.25 MG TAB PO SCH (08:15)
[2017-10-14] MEDS: SUCRALFATE 1 GM/10 ML CUP PO SCH ×4 (08:15→20:53)
[2017-10-14] MEDS: OLANZapine 2.5 MG TAB PO SCH (08:15)
[2017-10-14] MEDS: NYSTATIN SUSP 500,000 U/5 ML CUP SWISH-SWAL SCH ×4 (08:15→20:54)
[2017-10-14] MEDS: SOTALOL HCL 80 MG TAB PO SCH ×2 (08:16→20:01)
[2017-10-14] MEDS: LORazepam 2 MG/ML VIAL IV PUSH SCH ×2 (08:16→20:53)
[2017-10-14] MEDS: RIFAXIMIN 550 MG TAB PO SCH ×2 (08:16→20:53)
[2017-10-14] MEDS: D5-NS + KCL 20 MEQ INJ 1,000 ML IV SCH (08:17)
[2017-10-14] MEDS: PANTOPRAZOLE SODIUM 40 MG VIAL IV PUSH SCH ×2 (08:17→20:53)
[2017-10-14] MEDS: DRONABINOL 2.5 MG CAP PO SCH ×3 (10:28→15:01)
--- NOTE | 2017-10-14 19:16 | PD.CARD.PN ---
Subjective Subjective Remarks No CP or SOB, fells better, confused Objective Medications Current Medications Medications (Trade) Dose Ordered Sig/Tylor Route Start Time Stop Time Status Last Admin (NS Flush) 2 ml UNSCH PRN IV FLUSH 10/01/17 12:45 10/03/17 08:27 (Duoneb Neb) 1 ampule Q2HR NEB PRN INH 10/01/17 14:00 10/11/17 03:53 Miscellaneous Information 1 Q361D XX 10/01/17 14:00 (Chlorhexidine 2% Cloth) Taper DAILY@04 TOP 10/02/17 04:00 09/28/18 03:59 10/08/17 03:36 (Chlorhexidine 2% Cloth) 3 pack UNSCH PRN TOP 10/01/17 14:00 (D50w (Vial) Inj) 50 ml UNSCH PRN IV PUSH 10/01/17 15:00 10/04/17 20:25 (Glucagon Inj) 1 mg UNSCH PRN OTHER 10/01/17 15:00 (NovoLIN R SUPPLEMENTAL SCALE) 1 Q6H SQ 10/01/17 15:00 (Morphine Inj) 2 mg Q3H PRN IV PUSH 10/01/17 21:30 10/14/17 00:33 (Tylenol) 650 mg Q4H PRN PO 10/01/17 21:30 (Carafate Liq) 1 gm ACHS PO 10/03/17 12:00 10/14/17 11:52 (Protonix Inj) 40 mg Q12HR IV PUSH 10/03/17 11:30 10/14/17 08:17 Diltiazem HCl 125 mg/Sodium Chloride 125 ml @ 5 mls/hr TITRATE PRN IV 10/04/17 08:30 (Mycostatin Liq) 5 ml QID SWISH-SWAL 10/04/17 18:00 10/14/17 15:01 (Xifaxan) 550 mg BID PO 10/04/17 21:00 10/14/17 08:16 Metronidazole 100 ml @ 100 mls/hr Q8H IV 10/04/17 16:00 10/14/17 15:01 (Synthroid) 25 mcg DAILY@0600 PO 10/06/17 06:00 10/14/17 05:37 (Haldol Inj) 0.5 mg Q6HR PRN IV PUSH 10/05/17 14:15 Future Hold 10/07/17 23:48 (Haldol Inj) 1 mg Q6HR PRN IV PUSH 10/05/17 16:15 Future Hold 10/10/17 02:33 (Vancomycin 25 Mg/ml Liq) 125 mg QID PO 10/06/17 10:00 10/14/17 15:01 Non-Formulary Medication 1 ea Q3D T-DERMAL 10/06/17 10:00 10/12/17 12:54 Potassium Chloride/Dextrose/ Sod Cl 1,000 ml @ 50 mls/hr Q20H IV 10/07/17 18:15 10/13/17 20:57 (Marinol) 2.5 mg BID@11,16 PO 10/09/17 16:00 10/14/17 15:01 (Benadryl) 25 mg Q6H PO 10/11/17 09:00 10/14/17 15:01 (ZyPREXA) 2.5 mg DAILY PO 10/13/17 11:00 10/14/17 08:15 (Kytril Inj) 1 mg Q12HR PRN IV PUSH 10/13/17 11:00 (Ativan Inj) 0.5 mg BID IV PUSH 10/13/17 14:15 10/14/17 08:16 (Lanoxin) 0.25 mg DAILY PO 10/14/17 09:00 10/14/17 08:15 (Betapace) 120 mg Q12HR PO 10/13/17 21:00 10/14/17 08:16 (Pill Splitter) 1 ea UNSCH PRN OTHER 10/13/17 19:15 Vital Signs / I&O Vital Signs Date Time Temp Pulse Resp B/P (MAP) Pulse Ox O2 Delivery O2 Flow Rate FiO2 10/14/17 16:00 104 10/14/17 15:05 98.7 104 18 117/76 (90) 92 10/14/17 12:23 98.7 10/14/17 11:53 111 18 104/69 (81) 93 10/14/17 11:53 111 10/14/17 10:20 98.6 10/14/17 08:27 108 18 108/63 (78) 96 10/14/17 06:00 110 10/14/17 05:37 99.0 111 18 109/70 (83) 90 10/14/17 05:00 115 10/14/17 04:00 110 10/14/17 03:00 112 10/14/17 02:00 113 10/14/17 01:24 113 10/14/17 00:34 99.3 114 18 105/70 (82) 92 10/13/17 21:00 114 10/13/17 20:49 99.1 114 18 113/92 (99) 91 10/13/17 20:04 113 I/O 10/13/17 10/13/17 10/13/17 10/14/17 10/14/17 10/14/17 07:00 15:00 23:00 07:00 15:00 23:00 Intake Total 480 ml 100 ml 140 ml 100 ml 972 ml Output Total 475 ml Balance 480 ml 100 ml -335 ml 100 ml 972 ml Intake Oral 480 ml 40 ml 100 ml 250 ml IV Total 100 ml 100 ml 722 ml Output Urine Total 475 ml # Voids 6 2 3 4 Physical Exam GENERAL: In NAD SKIN: Warm and dry. HEAD: Normocephalic. EYES: No scleral icterus. No injection or drainage. NECK: Supple, trachea midline. No JVD or lymphadenopathy. CARDIOVASCULAR: Reg, without murmurs, gallops, or rubs. RESPIRATORY: Breath sounds equal bilaterally. No accessory muscle use. GASTROINTESTINAL: Abdomen soft, non-tender, nondistended. MUSCULOSKELETAL: No cyanosis, or edema. Laboratory Laboratory Tests Test 10/14/17 17:41 Magnesium Level 1.7 MG/DL Digoxin Level 0.6 NG/ML Assessment and Plan Problem List: (1) Atrial fibrillation with RVR ICD Codes: I48.91 - Unspecified atrial fibrillation Status: Acute (2) Sepsis ICD Codes: A41.9 - Sepsis, unspecified organism Status: Resolved (3) AML (acute myeloid leukemia) ICD Codes: C92.00 - Acute myeloblastic leukemia, not having achieved remission Status: Acute (4) Anemia ICD Codes: D64.9 - Anemia, unspecified Status: Acute (5) Thrombocytopenia ICD Codes: D69.6 - Thrombocytopenia, unspecified Status: Acute Assessment and Plan Still tachycardic. Continue sotalol, if no improvement, will switch to amio. Continue digoxin. Increase activity. Continue monitoring on tele. Quadrat,Otakar MD Oct 14, 2017 19:16
[2017-10-14] MEDS ORDERED: MAGNESIUM SULFATE 2 GM/NS 100 ML IV ONE ×2 (20:00)
--- NOTE | 2017-10-14 23:43 | HHI.PR ---
Subjective Remarks Patient complaint of nausea, discussed with her family at the bedside, she is on digoxin will check digoxin level Objective Vitals Vital Signs Date Time Temp Pulse Resp B/P (MAP) Pulse Ox O2 Delivery O2 Flow Rate FiO2 10/14/17 20:02 79 10/14/17 19:46 99.4 80 18 115/72 (86) 92 10/14/17 16:00 104 10/14/17 15:05 98.7 104 18 117/76 (90) 92 10/14/17 12:23 98.7 10/14/17 11:53 111 18 104/69 (81) 93 10/14/17 11:53 111 10/14/17 10:20 98.6 10/14/17 08:27 108 18 108/63 (78) 96 10/14/17 06:00 110 10/14/17 05:37 99.0 111 18 109/70 (83) 90 10/14/17 05:00 115 10/14/17 04:00 110 10/14/17 03:00 112 10/14/17 02:00 113 10/14/17 01:24 113 10/14/17 00:34 99.3 114 18 105/70 (82) 92 I/O 10/14/17 10/14/17 10/14/17 10/15/17 10/15/17 10/15/17 07:00 15:00 23:00 07:00 15:00 23:00 Intake Total 100 ml 972 ml Balance 100 ml 972 ml Intake Oral 100 ml 250 ml IV Total 722 ml # Voids 3 4 Result Diagram: 10/13/17 1055 10/13/17 1240 Objective Remarks GENERAL: This is a well-nourished, well-developed patient, in no apparent distress. CARDIOVASCULAR: Regular rate and rhythm without murmurs, gallops, or rubs. RESPIRATORY: Clear to auscultation. Breath sounds equal bilaterally. No wheezes , rales, or rhonchi. GASTROINTESTINAL: Abdomen soft, non-tender, nondistended. Normal active bowel sounds MUSCULOSKELETAL: Extremities without clubbing, cyanosis, or edema. NEURO: Alert & Oriented x4 to person, place, time, situation. Moves all ext x4 Procedures None Date of Insertion: Sep 21, 2017 Line: PICC A/P Assessment and Plan 10/14: Complaining of nausea despite being on Zofran, will check digoxin level to make sure it is not in the toxic level, will check magnesium and replace as needed, A/P: Sepsis Secondary to C. difficile colitis. Appreciate infectious disease recommendations. No further diarrhea. - Continue IV Flagyl, oral vancomycin. Leukocytosis improved. Anemia/ thrombocytopenia/ AML Appreciate hematology/oncology recommendations. H/H stable. Plt count 14 10/11. - follow CBC. - follow up with oncology and transfuse as indicated. Transfuse 1 unit platelets 10/11. Respiratory insufficiency Stable. - Continue supplemental oxygen, bronchodilators. Nausea/vomiting Not controlled by Zofran. Patient also receiving Reglan. Had adverse reaction to Phenergan. Tigan did not help. GI consult appreciated. - Haldol added by palliative care. - Continue scopolamine patch. - Pepcid. - ADAT. - continue standing Reglan, rifaximin. - add Benadryl. Atrial fibrillation with RVR Rate becomes elevated with agitation/anxiety. No anticoagulation due to thrombocytopenia. HR in the 130s 10/11. Cardiology consult appreciated. - continue sotalol per cardiology. - telemetry. Hypokalemia S/t decreased PO intake. - replete and monitor. DVT prophylaxis: SCDs. Avoid chemical prophylaxis secondary to anemia. Eze Nagy MD Oct 14, 2017 23:43
--- NOTE | 2017-10-14 23:52 | PD.ONC.PN ---
Subjective Subjective Remarks More awake, conversing. Slight improvement in nausea. Refuse oral nausea meds, makes her nausea worse. KPS still poor. Objective Data Date Time Temp Pulse Resp B/P (MAP) Pulse Ox O2 Delivery O2 Flow Rate FiO2 10/14/17 20:02 79 10/14/17 19:46 99.4 80 18 115/72 (86) 92 10/14/17 16:00 104 10/14/17 15:05 98.7 104 18 117/76 (90) 92 10/14/17 12:23 98.7 10/14/17 11:53 111 18 104/69 (81) 93 10/14/17 11:53 111 10/14/17 10:20 98.6 10/14/17 08:27 108 18 108/63 (78) 96 10/14/17 06:00 110 10/14/17 05:37 99.0 111 18 109/70 (83) 90 10/14/17 05:00 115 10/14/17 04:00 110 10/14/17 03:00 112 10/14/17 02:00 113 10/14/17 01:24 113 10/14/17 00:34 99.3 114 18 105/70 (82) 92 Result Diagram: 10/13/17 1055 10/13/17 1240 Laboratory Results Laboratory Tests Test 10/14/17 17:41 Magnesium Level 1.7 MG/DL Digoxin Level 0.6 NG/ML Administered Medications Medications (Trade) Dose Ordered Sig/Tylor Route PRN Reason Start Time Stop Time Status Last Admin Dose Admin Sodium Chloride (NS Flush) 2 ml UNSCH PRN IV FLUSH FLUSH AFTER USING IV ACCESS 10/01/17 12:45 10/03/17 08:27 Albuterol/ Ipratropium (Duoneb Neb) 1 ampule Q2HR NEB PRN INH WHEEZING 10/01/17 14:00 10/11/17 03:53 Chlorhexidine Gluconate (Chlorhexidine 2% Cloth) Taper DAILY@04 TOP 10/02/17 04:00 09/28/18 03:59 10/08/17 03:36 Dextrose (D50w (Vial) Inj) 50 ml UNSCH PRN IV PUSH HYPOGLYCEMIA-SEE COMMENTS 10/01/17 15:00 10/04/17 20:25 Morphine Sulfate (Morphine Inj) 2 mg Q3H PRN IV PUSH pain 6-10 10/01/17 21:30 10/14/17 00:33 Sucralfate (Carafate Liq) 1 gm ACHS PO 10/03/17 12:00 10/14/17 20:53 Pantoprazole Sodium (Protonix Inj) 40 mg Q12HR IV PUSH 10/03/17 11:30 10/14/17 20:53 Nystatin (Mycostatin Liq) 5 ml QID SWISH-SWAL 10/04/17 18:00 10/14/17 20:54 Rifaximin (Xifaxan) 550 mg BID PO 10/04/17 21:00 10/14/17 20:53 Metronidazole 100 ml @ 100 mls/hr Q8H IV 10/04/17 16:00 10/14/17 15:01 Levothyroxine Sodium (Synthroid) 25 mcg DAILY@0600 PO 10/06/17 06:00 10/14/17 05:37 Haloperidol Lactate (Haldol Inj) 0.5 mg Q6HR PRN IV PUSH MILD NAUSEA OR VOMITING 10/05/17 14:15 Future Hold 10/07/17 23:48 Haloperidol Lactate (Haldol Inj) 1 mg Q6HR PRN IV PUSH SEVERE NAUSEA AND VOMITING 10/05/17 16:15 Future Hold 10/10/17 02:33 Vancomycin HCl (Vancomycin 25 Mg/ml Liq) 125 mg QID PO 10/06/17 10:00 10/14/17 20:54 Non-Formulary Medication 1 ea Q3D T-DERMAL 10/06/17 10:00 10/12/17 12:54 Potassium Chloride/Dextrose/ Sod Cl 1,000 ml @ 50 mls/hr Q20H IV 10/07/17 18:15 10/13/17 20:57 Dronabinol (Marinol) 2.5 mg BID@,16 PO 10/09/17 16:00 10/14/17 15:01 Diphenhydramine HCl (Benadryl) 25 mg Q6H PO 10/11/17 09:00 10/14/17 20:53 Olanzapine (ZyPREXA) 2.5 mg DAILY PO 10/13/17 11:00 10/14/17 08:15 Lorazepam (Ativan Inj) 0.5 mg BID IV PUSH 10/13/17 14:15 10/14/17 20:53 Digoxin (Lanoxin) 0.25 mg DAILY PO 10/14/17 09:00 10/14/17 08:15 Sotalol HCl (Betapace) 120 mg Q12HR PO 10/13/17 21:00 10/14/17 20:01 Objective Remarks GENERAL: Middle aged female, sitting up in bed, appears fatigued. SKIN: Warm and dry. HEAD: Normocephalic. EYES: No injection or drainage. NECK: Supple, trachea midline. CARDIOVASCULAR: +S1/S2 RESPIRATORY: diminished at bases, anterior atkins clear. GASTROINTESTINAL: Abdomen soft, non-tender, nondistended. EXTREMITIES: No cyanosis NEUROLOGICAL: awake, no obvious focal deficit. Assessment/Plan Assessment 67y/o female with AML, admitted with intractable nausea/vomiting. HPI (brought forward from initial consult for continuity of care): status post four cycles of Dacogen. She was initiated on treatment in February of 2017. has received four cycles thus far with the most recent cycle completed 7 prior to current admission. She presented to hospital three days after her most recent discharge. She was admitted to the hospital at that time with C-diff colitis. The patient reports symptoms of abdominal pain, nausea, inability tolerate oral intake and generalized weakness and fatigue. She was unable to care for herself at home even with the help of her daughter and was brought into [place] ER last night. The patient was noted to be tachycardiac and hypotensive. She was assessed to have severe sepsis likely secondary to C-diff colitis and was admitted to the hospital for IV fluid hydration and antibiotic therapy. Plan 1. AML: s/p C4 Dacogen about 3 weeks ago. high peripheral blast count. poor prognosis. worsening performance status. 2. Nausea: Continue Marinol, schedule ativan, trial of Zyprexa if pt will take , Kytril instead of Zofran prn 3. C. difficile colitis: continue tx. 4. A. fib with RVR: rate better controlled. Disposition: Patient is hospice appropriate but would like to continue aggressive care. Juliet Lin MD Oct 14, 2017 23:52
[2017-10-15] VITALS (15 sets, daily range): BP systolic 96–126; BP diastolic 62–76; PULSE 82–116; RESP 18–20; TEMP 97–98.9; O2SAT 92–98
[2017-10-15] MEDS: metroNIDAZOLE 500 MG INJ 100 ML IV SCH ×4 (01:04→23:49)
[2017-10-15] MEDS: diphenhydrAMINE HCL 25 MG CAP PO SCH ×4 (03:00→22:22)
[2017-10-15] MEDS: INSULIN NovoLIN REGULAR SUPPLEMENTAL SCALE SQ SCH ×4 (03:00→21:00)
[2017-10-15] MEDS: MORPHINE SULFATE 2 MG/ML INJ IV PUSH PRN (03:09)
[2017-10-15] MEDS: CHLORHEXIDINE GLUCONATE 2 % 1 PACK (2 CLOTHS) TOP SCH (04:00)
[2017-10-15] MEDS: LEVOTHYROXINE SODIUM 25 MCG TAB PO SCH (05:28)
[2017-10-15] MEDS: D5-NS + KCL 20 MEQ INJ 1,000 ML IV SCH (05:28)
[2017-10-15 06:21] LABS: HEMATOCRIT 21.3 % (35.0-46.0); HEMOGLOBIN 7.2 GM/DL (11.6-15.3); MEAN CELL VOLUME 90.4 FL (80.0-100.0); MEAN CORPUSCULAR HEMOGLOBIN 30.5 PG (27.0-34.0); MEAN CORPUSCULAR HGB CONC 33.7 % (32.0-36.0); MEAN PLATELET VOLUME 10.1 FL (7.0-11.0); PLATELET COUNT 31 TH/MM3 (150-450); RED BLOOD COUNT 2.36 MIL/MM3 (4.00-5.30); WHITE BLOOD COUNT 18.5 TH/MM3 (4.0-11.0)
[2017-10-15 06:47] LABS: BICARBONATE 26.4 MEQ/L (21.0-32.0); CALCIUM 7.1 MG/DL (8.5-10.1); CREATININE 0.86 MG/DL (0.50-1.00)
[2017-10-15 07:03] LABS: CALCIUM-PROTEIN CORRECTED 8.4 MG/DL (8.5-10.1); TOTAL PROTEIN 4.8 GM/DL (6.4-8.2)
[2017-10-15 08:57] LABS: BLASTS 65 % (0-0); CORRECTED NUCLEATED RBC 1 /100 WBC (0-0); LYMPHOCYTES 22 % (9-44); MONOCYTES 4 % (0-8); MYELOCYTES 1 % (0-0); NEUTROPHIL # MANUAL DIFF 1.7 TH/MM3 (1.8-7.7); NUCLEATED RED BLOOD CELL 1 (0-0); POLYS (SEG NEUTROPHILS) 7 % (16-70); PROMYELOCYTES 1 % (0-0); TEARDROP RBCS 1+ (NORMAL)
[2017-10-15 08:58] LABS: KERATOCYTES OCC (NORMAL)
[2017-10-15] MEDS: VANCOMYCIN 25 MG/ML SUSP 100 ML BOTTLE PO SCH ×4 (09:33→22:16)
[2017-10-15] MEDS: LORazepam 2 MG/ML VIAL IV PUSH SCH ×3 (09:34→23:49)
[2017-10-15] MEDS: NYSTATIN SUSP 500,000 U/5 ML CUP SWISH-SWAL SCH ×4 (09:34→22:19)
[2017-10-15] MEDS: SOTALOL HCL 80 MG TAB PO SCH ×2 (09:34→22:20)
[2017-10-15] MEDS: PANTOPRAZOLE SODIUM 40 MG VIAL IV PUSH SCH ×2 (09:34→22:21)
[2017-10-15] MEDS: OLANZapine 2.5 MG TAB PO SCH (09:35)
[2017-10-15] MEDS: RIFAXIMIN 550 MG TAB PO SCH ×2 (09:35→21:00)
[2017-10-15] MEDS: DIGOXIN 0.25 MG TAB PO SCH (09:36)
[2017-10-15] MEDS: SUCRALFATE 1 GM/10 ML CUP PO SCH ×4 (09:36→22:18)
[2017-10-15] MEDS: [UNRECOGNIZED DRUG - REMARK] T-DERMAL SCH (10:00)
--- NOTE | 2017-10-15 11:13 | HHI.HCPN ---
Reason for visit a. To assist with evaluation and management of symptoms including: Nausea, weakness b. To assist medical decision maker(s) with: better understanding of current medical conditions; weighing benefits/burdens of medical treatment options; making medical treatment decisions. Subjective/Interval History Patient seen to follow-up on symptom control and goals of care. She remains mildly nauseated and now states that oral nausea meds are making it worse and is refusing them. She is refusing Marinol and ondansetron. Scopolamine, Tigan , Reglan and Compazine have been DC'd as they have not been effective in controlling the patient's nausea. Kytril has been ordered every 12H PRN nausea , Zyprexa 2.5 mg daily and Benadryl 25 mg every 6 hours scheduled. No doses have been administered at this time. She remains very fatigued and is complaining that she has too many visitors that interrupt her sleep. She remains very weak. Clinical data * Laboratory: WBC 18.5, hemoglobin 7.2, hematocrit 21.3, platelets 31,000 sodium 138, potassium 3.4, BUN 5, creatinine 0.86, protein corrected calcium 8.4 , magnesium 1.7, total protein 4.8. * Vital signs: BP 109/75, heart rate 120, respiratory rate 20, oxygen saturation 98% on 2 L nasal cannula, afebrile. Seen in room 232, this is a ill appearing female, lying in bed, very weak. She states she has not anything today. Her appetite has been very poor. She states she does not wish to talk. She says she is very tired and just wants to sleep. . Family/friend interactions Contacted her son by telephone and arranged a meeting at the hospital. Discussed recent clinical findings, patient's continued symptoms of nausea and weakness and discussed plans for possible discharge when cleared. At this time she is unable to get out of bed by herself, is dependent for ADLs and unable to care for herself at home. She will require [id number] care. Discussed possible placement with the patient's daughter, who does stay home but has 2 children to care for. Discussed the possibility of adding a part-time caregiver to assist mother in bathing, eating, transfers, etc., versus correction placement. Hospice was discussed and I explained to the son and the patient that the hospice care center was strictly for symptom management, such as nausea, pain, dyspnea, but not for long-term placement. The son states that the mother has been promising to get up and participate "tomorrow" every day for the last 7 months. Patient did state that she would get up and work with physical therapy "tomorrow". When asked if she would participate today she said no. It is the son's opinion that she is significantly depressed and would benefit from medication. . Advance Directives Living Will: Copy in medical record Health Care Surrogate: Copy in medical record Durable Power of Armored Truck Driver: Never completed Advance Directive Specifics Date completed: 03/30/17 Health Care Surrogate(s): HCS/son Sarthak Miguel Alternate/daughter Jerri Miguel . . Documented care wishes: Living will on chart. . Objective Vital Signs Date Time Temp Pulse Resp B/P (MAP) Pulse Ox O2 Delivery O2 Flow Rate FiO2 10/15/17 08:00 98.9 109 20 109/75 (86) 98 10/15/17 05:41 98.0 110 18 118/71 (87) 92 10/15/17 04:06 110 10/15/17 03:00 112 10/15/17 02:00 112 10/15/17 01:00 110 10/15/17 00:58 98.8 115 18 125/76 (92) 93 10/15/17 00:07 115 10/14/17 23:00 78 10/14/17 22:00 78 10/14/17 21:00 76 10/14/17 20:02 79 10/14/17 19:46 99.4 80 18 115/72 (86) 92 10/14/17 19:00 78 10/14/17 16:00 104 10/14/17 15:05 98.7 104 18 117/76 (90) 92 10/14/17 12:23 98.7 10/14/17 11:53 111 18 104/69 (81) 93 10/14/17 11:53 111 Intake & Output 10/15/17 10/15/17 07:00 19:00 Intake Total 204 ml Balance 204 ml IV Total 204 ml Physical Exam CONSTITUTIONAL/GENERAL: This is a week, ill appearing female patient, in mild distress. TUBES/LINES/DRAINS: LSC central line. Right upper arm PICC ENT: Hearing grossly normal. Nose without bleeding or purulent drainage. NECK: Trachea midline. Supple, nontender. No palpable thyroid enlargement or nodularity. CARDIOVASCULAR: S1, S2, regular rhythm, tachycardic rate, no rub murmur or gallop auscultated. RESPIRATORY/CHEST: Lungs clear to auscultation bilaterally, diminished at the bases. GASTROINTESTINAL: Abdomen soft, non-tender, mildly distended. Bowel sounds present. GENITOURINARY: Without palpable bladder distension. Wearing brief. MUSCULOSKELETAL: Extremities without clubbing, cyanosis, or edema. No joint tenderness or effusion noted. No calf tenderness. No mottling or clubbing. NEUROLOGICAL: Lethargic, arousable. Motor and sensory grossly within normal limits. Follows commands. Cognitively sharp. Moves all extremities. PSYCHIATRIC: Anxious, fatigued, cooperative. . Diagnostic Tests Laboratory Laboratory Tests Test 10/13/17 10:55 10/13/17 12:40 10/14/17 17:41 10/15/17 05:40 White Blood Count 12.6 TH/MM3 (4.0-11.0) 18.5 TH/MM3 (4.0-11.0) Red Blood Count 2.33 MIL/MM3 (4.00-5.30) 2.36 MIL/MM3 (4.00-5.30) Hemoglobin 7.2 GM/DL (11.6-15.3) 7.2 GM/DL (11.6-15.3) Hematocrit 21.2 % (35.0-46.0) 21.3 % (35.0-46.0) Mean Corpuscular Volume 91.3 FL (80.0-100.0) 90.4 FL (80.0-100.0) Mean Corpuscular Hemoglobin 31.0 PG (27.0-34.0) 30.5 PG (27.0-34.0) Mean Corpuscular Hemoglobin Concent 33.9 % (32.0-36.0) 33.7 % (32.0-36.0) Red Cell Distribution Width 20.0 % (11.6-17.2) 20.0 % (11.6-17.2) Platelet Count 26 TH/MM3 (150-450) 31 TH/MM3 (150-450) Mean Platelet Volume 9.1 FL (7.0-11.0) 10.1 FL (7.0-11.0) CBC Comment AUTO DIFF AUTO DIFF Differential Total Cells Counted 100 100 Neutrophils % (Manual) 5 % (16-70) 7 % (16-70) Lymphocytes % 7 % (9-44) 22 % (9-44) Monocytes % 5 % (0-8) 4 % (0-8) Neutrophils # (Manual) 1.9 TH/MM3 (1.8-7.7) 1.7 TH/MM3 (1.8-7.7) Metamyelocytes 2 % (0-1) Myelocytes 6 % (0-0) 1 % (0-0) Promyelocytes 2 % (0-0) 1 % (0-0) Differential Comment FINAL DIFF MANUAL FINAL DIFF MANUAL Blastocytes 72 % (0-0) 65 % (0-0) Plasma Cells 1 % (0-0) Platelet Estimate LOW (NORMAL) LOW (NORMAL) Platelet Morphology Comment NORMAL (NORMAL) ENLARGED (NORMAL) Ovalocytes 1+ (NORMAL) Acanthocytes OCC (NORMAL) Blood Urea Nitrogen 5 MG/DL (7-18) 5 MG/DL (7-18) Creatinine 0.77 MG/DL (0.50-1.00) 0.86 MG/DL (0.50-1.00) Random Glucose 78 MG/DL (74-106) 78 MG/DL (74-106) Total Protein 4.9 GM/DL (6.4-8.2) 4.8 GM/DL (6.4-8.2) Calcium Level 7.4 MG/DL (8.5-10.1) 7.1 MG/DL (8.5-10.1) Sodium Level 139 MEQ/L (136-145) 138 MEQ/L (136-145) Potassium Level 3.6 MEQ/L (3.5-5.1) 3.4 MEQ/L (3.5-5.1) Chloride Level 106 MEQ/L (98-107) 105 MEQ/L (98-107) Carbon Dioxide Level 27.5 MEQ/L (21.0-32.0) 26.4 MEQ/L (21.0-32.0) Anion Gap 6 MEQ/L (5-15) 7 MEQ/L (5-15) Estimat Glomerular Filtration Rate 75 ML/MIN (>89) 66 ML/MIN (>89) Protein Corrected Calcium 8.6 MG/DL (8.5-10.1) 8.4 MG/DL (8.5-10.1) Magnesium Level 1.7 MG/DL (1.5-2.5) Digoxin Level 0.6 NG/ML (0.8-2.0) Nucleated Red Blood Cells 1 /100 WBC (0-0) Tear Drop Cells 1+ (NORMAL) Keratocytes OCC (NORMAL) . Result Diagram: 10/15/17 0540 10/15/17 0540 Microbiology Microbiology Date/Time Source Procedure Growth Status 10/02/17 12:00 Blood Other Aerobic Blood Culture - Final NO GROWTH IN 5 DAYS Complete 10/02/17 12:00 Blood Other Anaerobic Blood Culture - Final NO GROWTH IN 5 DAYS Complete 10/02/17 14:00 Stool Stool Stool Occult Blood ([place]) - Final HEMOCCULT NEGATIVE Complete 10/01/17 15:14 Urine Clean Catch Urine Culture - Final 50-100,000 CFU/ML MIXED GRAM POSITIVE... Complete . Imaging Last Impressions Chest X-Ray 10/05/17 0000 Signed Impressions: Service Date/Time: Thursday, October 05, 2017 13:32 - CONCLUSION: Support apparatus good position, no pneumothorax. 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 Moderate ostial RUBY stenosis. Findings of mild proximal colitis. Raoul Denton MD CT Angiography 10/01/17 1251 Signed Impressions: Service Date/Time: Sunday, October 01, 2017 14:19 - CONCLUSION: 1. No evidence of pulmonary embolism. 2. Focal infiltrate within the left upper lobe posteriorly consistent with possible pneumonia. 3. Scattered atelectatic changes bilaterally. 4. Stable aneurysmal dilatation of the ascending thoracic aorta measuring 4.7 cm in greatest dimension. 5. Stable cardiomegaly and coronary artery calcifications. 6. Minimal posterior pleural thickening bilaterally. Desmond Jaimes MD . Procedures 09/21: PICC line placement 10/01: Left subclavian triple lumen placed . Assessment and Plan Disease Oriented Problem List: (1) AML (acute myeloid leukemia) (2) Debility (3) Sepsis Symptom Scale: (1) Nausea 0-10 Scale: Unable to quantify (continuous nausea, spitting up frequently without significant emesis, in spite of multiple medications.) (2) Weakness 0-10 Scale: Unable to quantify (continued debility from poor performance status likely due to multiple comorbidities and side effects of chemotherapy.) (3) Diarrhea 0-10 Scale: Unable to quantify (recurrent C. difficile, having difficulty tolerating oral vancomycin due to nausea.) Pertinent Non-Medical Issues Psychosocial:Originally from [place]. , has 2 adult children. 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 Spiritual:Buddhist biju. Legal: Living will and designation of healthcare surrogate completed. Ethical issues impacting care:No ethical issues identified. . Important Contacts [facility]/son Sarthak Miguel daughter Jerri Miguel . . Prognosis Her prognosis is poor. She has been diagnosed with acute myeloid leukemia and per my discussion with oncology, even with treatment, her lifespan is likely to be less than a year. Without therapy, 3-6 months. 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 Without treatment her sepsis is likely to continue until hemodynamic compromise and possible . . Code Status: No Code Plan PLAN: Legal decision maker: He is currently capacitated to make her own decisions. Goals: Continuing to pursue chemotherapy and full resuscitative treatment. CODE STATUS: FULL CODE SYMPTOMS: * Nausea: She states that nausea started right after she initiated chemotherapy , her last dose was the end of August. She states Dr. Yarbrough is no longer going to give her chemotherapy due to her progressive debility and inability to eat. She has failed treatment with Tigan, Reglan, lorazepam, Protonix, Zofran, Carafate, Haldol, Phenergan, scopolamine. She is now refusing Zofran and Marinol as she states her nausea gets worse with oral medications. She is receiving scheduled Benadryl and Zyprexa and as needed Kytril for nausea. Scopolamine, Tigan, Reglan, Compazine, Phenergan, Zofran have been discontinued to reduce the side effects of polypharmacy. She has not yet received a dose of Kytril. We will continue to follow to gauge efficacy of medication. Oncology has noted that she is appropriate for hospice at this time is not willing to consider that option. Family believes that some of her reticence in participating in her therapy is due to depression. Would recommend considering an antidepressant. * Weakness: This is multi-factorial to include AML, chemotherapy and debility. She is unable to consume food or water due to her nausea which is contributing to her weakness. First goal being to control the nausea, and medication changes as noted above have been made, pending reevaluation of efficacy. She will not be receiving chemotherapy due to her poor performance status, but is likely still experiencing the side effects from her last dose at the end of August. She is only able to take sips of chocolate ensure and is frequently vomiting. At this point there is some concern for aspiration, as well, due to the recurrent vomiting and progressive weakness. Without nutrition she will certainly still continued to decline. She continues to refuse physical therapy when they come to visit but states that she will start "tomorrow". Palliative care will continue to follow the patient during hospital course as condition evolves, to assist patient/decision-maker with understanding of their medical conditions, weighing benefits/burdens of treatment options, for clarification of goals of treatment. Additionally will assist with any symptoms of palliative concern. . Attestation To help prompt me to consider important information that might be impacting today's encounter and assessment, information from prior notes written by myself or my colleagues may have been "brought forward" into today's note. My signature on this note, however, is an attestation that I personally performed the exam, history, and/or decision-making noted today, and, unless otherwise indicated, the interactions with patient, family, and staff as well as the review of records all occurred today. I also attest that the listed assessment and stated plan reflect my best clinical judgment today based on the combination of historical information, prior notes, and today's exam/ interactions. When time spent is documented, it refers only to time spent today by the signer, or if indicated, combined time spent today by collaborating physician/nurse practitioner. . Veronica Grant Oct 15, 2017 11:13 am
[2017-10-15] MEDS: DRONABINOL 2.5 MG CAP PO SCH ×2 (13:52→18:53)
--- NOTE | 2017-10-15 14:22 | PD.CARD.PN ---
Subjective Subjective Remarks No CP or SOB, HR still increased Objective Medications Current Medications Medications (Trade) Dose Ordered Sig/Tylor Route Start Time Stop Time Status Last Admin (NS Flush) 2 ml UNSCH PRN IV FLUSH 10/01/17 12:45 10/03/17 08:27 (Duoneb Neb) 1 ampule Q2HR NEB PRN INH 10/01/17 14:00 10/11/17 03:53 Miscellaneous Information 1 Q361D XX 10/01/17 14:00 (Chlorhexidine 2% Cloth) Taper DAILY@04 TOP 10/02/17 04:00 09/28/18 03:59 10/08/17 03:36 (Chlorhexidine 2% Cloth) 3 pack UNSCH PRN TOP 10/01/17 14:00 (D50w (Vial) Inj) 50 ml UNSCH PRN IV PUSH 10/01/17 15:00 10/04/17 20:25 (Glucagon Inj) 1 mg UNSCH PRN OTHER 10/01/17 15:00 (NovoLIN R SUPPLEMENTAL SCALE) 1 Q6H SQ 10/01/17 15:00 (Morphine Inj) 2 mg Q3H PRN IV PUSH 10/01/17 21:30 10/15/17 03:09 (Tylenol) 650 mg Q4H PRN PO 10/01/17 21:30 (Carafate Liq) 1 gm ACHS PO 10/03/17 12:00 10/15/17 13:06 (Protonix Inj) 40 mg Q12HR IV PUSH 10/03/17 11:30 10/15/17 09:34 Diltiazem HCl 125 mg/Sodium Chloride 125 ml @ 5 mls/hr TITRATE PRN IV 10/04/17 08:30 (Mycostatin Liq) 5 ml QID SWISH-SWAL 10/04/17 18:00 10/15/17 12:33 (Xifaxan) 550 mg BID PO 10/04/17 21:00 10/15/17 09:35 Metronidazole 100 ml @ 100 mls/hr Q8H IV 10/04/17 16:00 10/15/17 09:32 (Synthroid) 25 mcg DAILY@0600 PO 10/06/17 06:00 10/15/17 05:28 (Haldol Inj) 0.5 mg Q6HR PRN IV PUSH 10/05/17 14:15 Future Hold 10/07/17 23:48 (Haldol Inj) 1 mg Q6HR PRN IV PUSH 10/05/17 16:15 Future Hold 10/10/17 02:33 (Vancomycin 25 Mg/ml Liq) 125 mg QID PO 10/06/17 10:00 10/15/17 12:33 Non-Formulary Medication 1 ea Q3D T-DERMAL 10/06/17 10:00 10/12/17 12:54 Potassium Chloride/Dextrose/ Sod Cl 1,000 ml @ 50 mls/hr Q20H IV 10/07/17 18:15 10/15/17 05:28 (Marinol) 2.5 mg BID@11,16 PO 10/09/17 16:00 10/15/17 13:52 (Benadryl) 25 mg Q6H PO 10/11/17 09:00 10/15/17 09:35 (ZyPREXA) 2.5 mg DAILY PO 10/13/17 11:00 10/15/17 09:35 (Kytril Inj) 1 mg Q12HR PRN IV PUSH 10/13/17 11:00 (Ativan Inj) 0.5 mg BID IV PUSH 10/13/17 14:15 10/15/17 09:34 (Lanoxin) 0.25 mg DAILY PO 10/14/17 09:00 10/15/17 09:36 (Betapace) 120 mg Q12HR PO 10/13/17 21:00 10/15/17 09:34 (Pill Splitter) 1 ea UNSCH PRN OTHER 10/13/17 19:15 Vital Signs / I&O Vital Signs Date Time Temp Pulse Resp B/P (MAP) Pulse Ox O2 Delivery O2 Flow Rate FiO2 10/15/17 13:55 97.0 116 18 113/70 (84) 98 10/15/17 10:00 108 10/15/17 09:00 108 10/15/17 08:00 112 10/15/17 08:00 98.9 109 20 109/75 (86) 98 10/15/17 05:41 98.0 110 18 118/71 (87) 92 10/15/17 04:06 110 10/15/17 03:00 112 10/15/17 02:00 112 10/15/17 01:00 110 10/15/17 00:58 98.8 115 18 125/76 (92) 93 10/15/17 00:07 115 10/14/17 23:00 78 10/14/17 22:00 78 10/14/17 21:00 76 10/14/17 20:02 79 10/14/17 19:46 99.4 80 18 115/72 (86) 92 10/14/17 19:00 78 10/14/17 16:00 104 10/14/17 15:05 98.7 104 18 117/76 (90) 92 I/O 10/14/17 10/14/17 10/14/17 10/15/17 10/15/17 10/15/17 06:59 14:59 22:59 06:59 14:59 22:59 Intake Total 200 ml 1076 ml 100 ml Balance 200 ml 1076 ml 100 ml Intake Oral 100 ml 250 ml IV Total 100 ml 826 ml 100 ml # Voids 3 4 Physical Exam GENERAL: In NAD SKIN: Warm and dry. HEAD: Normocephalic. EYES: No scleral icterus. No injection or drainage. NECK: Supple, trachea midline. No JVD or lymphadenopathy. CARDIOVASCULAR: Reg, tachy, without murmurs, gallops, or rubs. RESPIRATORY: Breath sounds equal bilaterally. No accessory muscle use. GASTROINTESTINAL: Abdomen soft, non-tender, nondistended. MUSCULOSKELETAL: No cyanosis, or edema. Laboratory Laboratory Tests Test 10/14/17 17:41 10/15/17 05:40 Magnesium Level 1.7 MG/DL Digoxin Level 0.6 NG/ML White Blood Count 18.5 TH/MM3 Red Blood Count 2.36 MIL/MM3 Hemoglobin 7.2 GM/DL Hematocrit 21.3 % Mean Corpuscular Volume 90.4 FL Mean Corpuscular Hemoglobin 30.5 PG Mean Corpuscular Hemoglobin Concent 33.7 % Red Cell Distribution Width 20.0 % Platelet Count 31 TH/MM3 Mean Platelet Volume 10.1 FL CBC Comment AUTO DIFF Differential Total Cells Counted 100 Neutrophils % (Manual) 7 % Lymphocytes % 22 % Monocytes % 4 % Neutrophils # (Manual) 1.7 TH/MM3 Myelocytes 1 % Promyelocytes 1 % Nucleated Red Blood Cells 1 /100 WBC Differential Comment FINAL DIFF MANUAL Blastocytes 65 % Platelet Estimate LOW Platelet Morphology Comment ENLARGED Tear Drop Cells 1+ Keratocytes OCC Blood Urea Nitrogen 5 MG/DL Creatinine 0.86 MG/DL Random Glucose 78 MG/DL Total Protein 4.8 GM/DL Calcium Level 7.1 MG/DL Sodium Level 138 MEQ/L Potassium Level 3.4 MEQ/L Chloride Level 105 MEQ/L Carbon Dioxide Level 26.4 MEQ/L Anion Gap 7 MEQ/L Estimat Glomerular Filtration Rate 66 ML/MIN Protein Corrected Calcium 8.4 MG/DL Assessment and Plan Problem List: (1) Atrial fibrillation with RVR ICD Codes: I48.91 - Unspecified atrial fibrillation Status: Acute (2) Sepsis ICD Codes: A41.9 - Sepsis, unspecified organism Status: Resolved (3) AML (acute myeloid leukemia) ICD Codes: C92.00 - Acute myeloblastic leukemia, not having achieved remission Status: Acute (4) Anemia ICD Codes: D64.9 - Anemia, unspecified Status: Acute (5) Thrombocytopenia ICD Codes: D69.6 - Thrombocytopenia, unspecified Status: Acute Assessment and Plan No new cardiac issues. Still tachycardic. Continue sotalol, if no significant improvement, will switch to amio. Continue digoxin. Continue monitoring on tele. Increase activity, PT. Nathanael Pretty MD Oct 15, 2017 14:22
--- NOTE | 2017-10-15 18:03 | HHI.PR ---
Subjective Remarks No chest pain, heart rate still, cardiology following Objective Vitals Vital Signs Date Time Temp Pulse Resp B/P (MAP) Pulse Ox O2 Delivery O2 Flow Rate FiO2 10/15/17 13:55 97.0 116 18 113/70 (84) 98 10/15/17 10:00 108 10/15/17 09:00 108 10/15/17 08:00 112 10/15/17 08:00 98.9 109 20 109/75 (86) 98 10/15/17 05:41 98.0 110 18 118/71 (87) 92 10/15/17 04:06 110 10/15/17 03:00 112 10/15/17 02:00 112 10/15/17 01:00 110 10/15/17 00:58 98.8 115 18 125/76 (92) 93 10/15/17 00:07 115 10/14/17 23:00 78 10/14/17 22:00 78 10/14/17 21:00 76 10/14/17 20:02 79 10/14/17 19:46 99.4 80 18 115/72 (86) 92 10/14/17 19:00 78 I/O 10/14/17 10/14/17 10/14/17 10/15/17 10/15/17 10/15/17 07:00 15:00 23:00 07:00 15:00 23:00 Intake Total 200 ml 1076 ml 100 ml Balance 200 ml 1076 ml 100 ml Intake Oral 100 ml 250 ml IV Total 100 ml 826 ml 100 ml # Voids 3 4 Result Diagram: 10/15/17 0540 10/15/17 0540 Objective Remarks GENERAL: This is a well-nourished, well-developed patient, in no apparent distress. CARDIOVASCULAR: Regular rate and rhythm without murmurs, gallops, or rubs. RESPIRATORY: Clear to auscultation. Breath sounds equal bilaterally. No wheezes , rales, or rhonchi. GASTROINTESTINAL: Abdomen soft, non-tender, nondistended. Normal active bowel sounds MUSCULOSKELETAL: Extremities without clubbing, cyanosis, or edema. NEURO: Alert & Oriented x4 to person, place, time, situation. Moves all ext x4 Procedures None Date of Insertion: Sep 21, 2017 Line: PICC A/P Assessment and Plan 10/14: Complaining of nausea despite being on Zofran, will check digoxin level to make sure it is not in the toxic level, will check magnesium and replace as needed, 10/15 digoxin level within normal limits, appreciate cardiology follow-up, continues to digoxin if tachycardia is switched to amiodarone, we need close monitoring to electrolyte repeat BMP in a.m. A/P: Sepsis Secondary to C. difficile colitis. Appreciate infectious disease recommendations. No further diarrhea. - Continue IV Flagyl, oral vancomycin. Leukocytosis improved. Anemia/ thrombocytopenia/ AML Appreciate hematology/oncology recommendations. H/H stable. Plt count 14 10/11. - follow CBC. - follow up with oncology and transfuse as indicated. Transfuse 1 unit platelets 10/11. Respiratory insufficiency Stable. - Continue supplemental oxygen, bronchodilators. Nausea/vomiting Not controlled by Zofran. Patient also receiving Reglan. Had adverse reaction to Phenergan. Tigan did not help. GI consult appreciated. - Haldol added by palliative care. - Continue scopolamine patch. - Pepcid. - ADAT. - continue standing Reglan, rifaximin. - add Benadryl. Atrial fibrillation with RVR Rate becomes elevated with agitation/anxiety. No anticoagulation due to thrombocytopenia. HR in the 130s 10/11. Cardiology consult appreciated. - continue sotalol per cardiology. - telemetry. Hypokalemia S/t decreased PO intake. - replete and monitor. DVT prophylaxis: SCDs. Avoid chemical prophylaxis secondary to anemia. Eze Nagy MD Oct 15, 2017 18:03
[2017-10-16] VITALS (12 sets, daily range): BP systolic 101–134; BP diastolic 53–80; PULSE 62–104; RESP 16–20; TEMP 98.7–100; O2SAT 95–98
[2017-10-16] MEDS: D5-NS + KCL 20 MEQ INJ 1,000 ML IV SCH ×2 (02:32→22:28)
[2017-10-16] MEDS: diphenhydrAMINE HCL 25 MG CAP PO SCH ×4 (03:00→21:31)
[2017-10-16] MEDS: INSULIN NovoLIN REGULAR SUPPLEMENTAL SCALE SQ SCH ×4 (03:00→21:47)
[2017-10-16] MEDS: CHLORHEXIDINE GLUCONATE 2 % 1 PACK (2 CLOTHS) TOP SCH (03:16)
[2017-10-16 05:32] LABS: MEAN CELL VOLUME 90.3 FL (80.0-100.0); MEAN CORPUSCULAR HEMOGLOBIN 30.7 PG (27.0-34.0); MEAN PLATELET VOLUME 11.7 FL (7.0-11.0); PLATELET COUNT 32 TH/MM3 (150-450); RED CELL DISTRIBUTION WIDTH 19.9 % (11.6-17.2); WHITE BLOOD COUNT 16.4 TH/MM3 (4.0-11.0)
[2017-10-16 05:47] LABS: HEMATOCRIT 19.8 % (35.0-46.0); HEMOGLOBIN 6.7 GM/DL (11.6-15.3)
[2017-10-16 05:57] LABS: BICARBONATE 26.5 MEQ/L (21.0-32.0); CALCIUM 7.1 MG/DL (8.5-10.1); CREATININE 0.86 MG/DL (0.50-1.00)
[2017-10-16] MEDS: LEVOTHYROXINE SODIUM 25 MCG TAB PO SCH (06:03)
[2017-10-16 06:16] LABS: CALCIUM-PROTEIN CORRECTED 8.5 MG/DL (8.5-10.1); TOTAL PROTEIN 4.5 GM/DL (6.4-8.2)
[2017-10-16 07:08] LABS: BANDS 1 % (0-6); BLASTS 58 % (0-0); CORRECTED NUCLEATED RBC 5 /100 WBC (0-0); LYMPHOCYTES 16 % (9-44); MONOCYTES 17 % (0-8); MYELOCYTES 1 % (0-0); NEUTROPHIL # MANUAL DIFF 1.5 TH/MM3 (1.8-7.7); NUCLEATED RED BLOOD CELL 5 (0-0); POLYS (SEG NEUTROPHILS) 7 % (16-70)
[2017-10-16 07:09] LABS: ACANTHOCYTES OCC (NORMAL); TEARDROP RBCS 1+ (NORMAL)
--- NOTE | 2017-10-16 08:21 | PD.ONC.PN ---
Subjective Subjective Remarks Patient seen and examined, vital signs, labs and medications reviewed. Subjectively; the patient reports feeling weak, she tells me she did get out of bed with assistance yesterday and sat up on the couch for about a half-hour. She tells me she is not strong enough to get up out of bed on her own and has not been able to ambulate to the restroom. Her diet is limited mostly to liquids , she tells me having the smallest amount of solids gives her severe nausea. She is therefore limited to boost and ensure, juices, some fruits and water. She denies fevers or chills, she tells me her breathing is comfortable, she denies overt bleeding, she denies chest pain. Objective Data Date Time Temp Pulse Resp B/P (MAP) Pulse Ox O2 Delivery O2 Flow Rate FiO2 10/16/17 04:39 99.0 100 17 101/65 (77) 96 10/16/17 04:00 100 10/16/17 01:21 104 10/15/17 23:57 105 18 105/69 (81) 94 10/15/17 22:11 98.6 107 18 96/62 (73) 96 10/15/17 18:50 109 20 96 10/15/17 13:55 97.0 116 18 113/70 (84) 98 10/15/17 10:00 108 10/15/17 09:00 108 Result Diagram: 10/16/17 0500 10/16/17 0500 Laboratory Results Laboratory Tests Test 10/16/17 05:00 White Blood Count 16.4 TH/MM3 Red Blood Count 2.20 MIL/MM3 Hemoglobin 6.7 GM/DL Hematocrit 19.8 % Mean Corpuscular Volume 90.3 FL Mean Corpuscular Hemoglobin 30.7 PG Mean Corpuscular Hemoglobin Concent 34.0 % Red Cell Distribution Width 19.9 % Platelet Count 32 TH/MM3 Mean Platelet Volume 11.7 FL CBC Comment AUTO DIFF Differential Total Cells Counted 100 Neutrophils % (Manual) 7 % Band Neutrophils % 1 % Lymphocytes % 16 % Monocytes % 17 % Neutrophils # (Manual) 1.5 TH/MM3 Myelocytes 1 % Nucleated Red Blood Cells 5 /100 WBC Differential Comment FINAL DIFF MANUAL Blastocytes 58 % Platelet Estimate LOW Platelet Morphology Comment ENLARGED Tear Drop Cells 1+ Acanthocytes OCC Blood Urea Nitrogen 6 MG/DL Creatinine 0.86 MG/DL Random Glucose 97 MG/DL Total Protein 4.5 GM/DL Calcium Level 7.1 MG/DL Sodium Level 139 MEQ/L Potassium Level 3.5 MEQ/L Chloride Level 106 MEQ/L Carbon Dioxide Level 26.5 MEQ/L Anion Gap 7 MEQ/L Estimat Glomerular Filtration Rate 66 ML/MIN Protein Corrected Calcium 8.5 MG/DL Administered Medications Medications (Trade) Dose Ordered Sig/Tylor Route PRN Reason Start Time Stop Time Status Last Admin Dose Admin Sodium Chloride (NS Flush) 2 ml UNSCH PRN IV FLUSH FLUSH AFTER USING IV ACCESS 10/01/17 12:45 10/03/17 08:27 Albuterol/ Ipratropium (Duoneb Neb) 1 ampule Q2HR NEB PRN INH WHEEZING 10/01/17 14:00 10/11/17 03:53 Chlorhexidine Gluconate (Chlorhexidine 2% Cloth) Taper DAILY@04 TOP 10/02/17 04:00 09/28/18 03:59 10/08/17 03:36 Dextrose (D50w (Vial) Inj) 50 ml UNSCH PRN IV PUSH HYPOGLYCEMIA-SEE COMMENTS 10/01/17 15:00 10/04/17 20:25 Morphine Sulfate (Morphine Inj) 2 mg Q3H PRN IV PUSH pain 6-10 10/01/17 21:30 10/15/17 03:09 Sucralfate (Carafate Liq) 1 gm ACHS PO 10/03/17 12:00 10/15/17 22:18 Pantoprazole Sodium (Protonix Inj) 40 mg Q12HR IV PUSH 10/03/17 11:30 10/15/17 09:34 Nystatin (Mycostatin Liq) 5 ml QID SWISH-SWAL 10/04/17 18:00 10/15/17 22:19 Rifaximin (Xifaxan) 550 mg BID PO 10/04/17 21:00 10/15/17 09:35 Metronidazole 100 ml @ 100 mls/hr Q8H IV 10/04/17 16:00 10/15/17 23:49 Levothyroxine Sodium (Synthroid) 25 mcg DAILY@0600 PO 10/06/17 06:00 10/16/17 06:03 Haloperidol Lactate (Haldol Inj) 0.5 mg Q6HR PRN IV PUSH MILD NAUSEA OR VOMITING 2/9/18 14:15 Future Hold 10/07/17 23:48 Haloperidol Lactate (Haldol Inj) 1 mg Q6HR PRN IV PUSH SEVERE NAUSEA AND VOMITING 10/05/17 16:15 Future Hold 10/10/17 02:33 Vancomycin HCl (Vancomycin 25 Mg/ml Liq) 125 mg QID PO 10/06/17 10:00 10/15/17 22:16 Non-Formulary Medication 1 ea Q3D T-DERMAL 10/06/17 10:00 10/15/17 10:00 Potassium Chloride/Dextrose/ Sod Cl 1,000 ml @ 50 mls/hr Q20H IV 10/07/17 18:15 10/16/17 02:32 Dronabinol (Marinol) 2.5 mg BID@11,16 PO 10/09/17 16:00 10/15/17 18:53 Diphenhydramine HCl (Benadryl) 25 mg Q6H PO 10/11/17 09:00 10/15/17 09:35 Olanzapine (ZyPREXA) 2.5 mg DAILY PO 10/13/17 11:00 10/15/17 09:35 Lorazepam (Ativan Inj) 0.5 mg BID IV PUSH 10/13/17 14:15 10/15/17 23:49 Digoxin (Lanoxin) 0.25 mg DAILY PO 10/14/17 09:00 10/15/17 09:36 Sotalol HCl (Betapace) 120 mg Q12HR PO 10/13/17 21:00 10/15/17 22:20 Objective Remarks GENERAL: Elderly and chronically ill-appearing female, laying in bed, she appears to being generally weak and frail. SKIN: Cool and dry. HEAD: Normocephalic. EYES: No injection or drainage. Conjunctivae are pale sclerae nonicteric. NECK: Supple, trachea midline. CARDIOVASCULAR: Normal rate, normal rhythm, monitor indicates sinus rhythm, S1 and S2 no obvious murmurs or gallops. RESPIRATORY: Poor inspiratory effort, decreased bibasilar breath sounds. GASTROINTESTINAL: Protuberant belly, soft, no obvious tenderness, no tenderness. EXTREMITIES: No cyanosis, or edema. MUSCULOSKELETAL: Atrophic musculature, decreased muscle mass and tone. NEUROLOGICAL: No obvious focal deficit. Awake, alert, and oriented x3. Assessment/Plan Assessment 67y/o female with AML, admitted with intractable nausea/vomiting. HPI (brought forward from initial consult for continuity of care): status post four cycles of Dacogen. She was initiated on treatment in February of 2017. has received four cycles thus far with the most recent cycle completed 7 prior to current admission. She presented to hospital three days after her most recent discharge. She was admitted to the hospital at that time with C-diff colitis. The patient reports symptoms of abdominal pain, nausea, inability tolerate oral intake and generalized weakness and fatigue. She was unable to care for herself at home even with the help of her daughter and was brought into [place] ER last night. The patient was noted to be tachycardiac and hypotensive. She was assessed to have severe sepsis likely secondary to C-diff colitis and was admitted to the hospital for IV fluid hydration and antibiotic therapy. Plan 1. AML: s/p C4 Dacogen about 3 weeks ago. high peripheral blast count. poor prognosis. worsening performance status. 2. Nausea: Continue Marinol, schedule ativan, trial of Zyprexa if pt will take , Kytril instead of Zofran prn 3. C. difficile colitis: continue tx. 4. A. fib with RVR: rate better controlled. Disposition: I talked to the patient about her apparent lack of motivation to participate in physical therapy and to ambulate. I encouraged her to demonstrate her willingness to contribute to her own wellness as opposed to letting the nursing staff and hospital staff do most of her care for her. I explained to the patient that at some point we would like her to be discharged from this facility either to a long-term facility, to home or to some sort facility where she has hospice. The patient however has adamantly declined transferred to long-term facility, she declines hospice and tells me she will not go home until she feels well enough to be at home. There are additional social issues which are worthy of mentioned; specifically the patient's daughter Jerri with whom the patient had been living herself has young children and finds it very difficult to cope with her mother at home especially given the patient's nausea and vomiting. I'm not certain if Mrs. Gerry Canas has additional social support. I have been made aware of a hospital administration meeting at 9 AM on 2017. Though I may not be able to attend I will try to call in. Roberto Yarbrough MD Oct 16, 2017 08:21
[2017-10-16] MEDS ORDERED: SODIUM CHLOR 0.9% 250 ML INJ 250 ML IV ONE (08:30)
[2017-10-16] MEDS ORDERED: FUROSEMIDE 20 MG/2 ML VIAL IV PUSH SCH (08:30)
[2017-10-16] MEDS ORDERED: diphenhydrAMINE HCL 25 MG CAP PO PRN (08:30)
[2017-10-16] MEDS: NYSTATIN SUSP 500,000 U/5 ML CUP SWISH-SWAL SCH ×4 (09:00→22:25)
[2017-10-16] MEDS: SUCRALFATE 1 GM/10 ML CUP PO SCH ×4 (09:32→21:00)
[2017-10-16] MEDS: metroNIDAZOLE 500 MG INJ 100 ML IV SCH ×2 (09:32→18:29)
[2017-10-16] MEDS: PANTOPRAZOLE SODIUM 40 MG VIAL IV PUSH SCH ×2 (09:38→22:27)
[2017-10-16] MEDS: LORazepam 2 MG/ML VIAL IV PUSH SCH ×2 (09:39→22:30)
[2017-10-16] MEDS: RIFAXIMIN 550 MG TAB PO SCH ×2 (09:39→22:23)
[2017-10-16] MEDS: DIGOXIN 0.25 MG TAB PO SCH (09:41)
[2017-10-16] MEDS: VANCOMYCIN 25 MG/ML SUSP 100 ML BOTTLE PO SCH ×4 (09:42→22:27)
[2017-10-16] MEDS: OLANZapine 2.5 MG TAB PO SCH (11:53)
[2017-10-16] MEDS: SOTALOL HCL 80 MG TAB PO SCH ×2 (12:20→22:23)
[2017-10-16] MEDS: DRONABINOL 2.5 MG CAP PO SCH ×2 (12:20→18:28)
[2017-10-16] MEDS: ACETAMINOPHEN 325 MG TAB PO PRN ×2 (15:14→20:28)
--- NOTE | 2017-10-16 17:09 | PD.CARD.PN ---
Subjective Subjective Remarks No CP, mild SOB, HR mildly increased Objective Medications Current Medications Medications (Trade) Dose Ordered Sig/Tylor Route Start Time Stop Time Status Last Admin (NS Flush) 2 ml UNSCH PRN IV FLUSH 10/01/17 12:45 10/03/17 08:27 (Duoneb Neb) 1 ampule Q2HR NEB PRN INH 10/01/17 14:00 10/11/17 03:53 Miscellaneous Information 1 Q361D XX 10/01/17 14:00 (Chlorhexidine 2% Cloth) Taper DAILY@04 TOP 10/02/17 04:00 09/28/18 03:59 10/08/17 03:36 (Chlorhexidine 2% Cloth) 3 pack UNSCH PRN TOP 10/01/17 14:00 (D50w (Vial) Inj) 50 ml UNSCH PRN IV PUSH 10/01/17 15:00 10/04/17 20:25 (Glucagon Inj) 1 mg UNSCH PRN OTHER 10/01/17 15:00 (NovoLIN R SUPPLEMENTAL SCALE) 1 Q6H SQ 10/01/17 15:00 (Morphine Inj) 2 mg Q3H PRN IV PUSH 10/01/17 21:30 10/15/17 03:09 (Tylenol) 650 mg Q4H PRN PO 10/01/17 21:30 (Carafate Liq) 1 gm ACHS PO 10/03/17 12:00 10/16/17 12:53 (Protonix Inj) 40 mg Q12HR IV PUSH 10/03/17 11:30 10/16/17 09:38 Diltiazem HCl 125 mg/Sodium Chloride 125 ml @ 5 mls/hr TITRATE PRN IV 10/04/17 08:30 (Mycostatin Liq) 5 ml QID SWISH-SWAL 10/04/17 18:00 10/16/17 12:53 (Xifaxan) 550 mg BID PO 10/04/17 21:00 10/16/17 09:39 Metronidazole 100 ml @ 100 mls/hr Q8H IV 10/04/17 16:00 10/16/17 09:32 (Synthroid) 25 mcg DAILY@0600 PO 10/06/17 06:00 10/16/17 06:03 (Haldol Inj) 0.5 mg Q6HR PRN IV PUSH 10/05/17 14:15 Future Hold 10/07/17 23:48 (Haldol Inj) 1 mg Q6HR PRN IV PUSH 10/05/17 16:15 Future Hold 10/10/17 02:33 (Vancomycin 25 Mg/ml Liq) 125 mg QID PO 10/06/17 10:00 10/16/17 12:53 Non-Formulary Medication 1 ea Q3D T-DERMAL 10/06/17 10:00 10/15/17 10:00 Potassium Chloride/Dextrose/ Sod Cl 1,000 ml @ 50 mls/hr Q20H IV 10/07/17 18:15 10/16/17 02:32 (Marinol) 2.5 mg BID@11,16 PO 10/09/17 16:00 10/16/17 12:20 (Benadryl) 25 mg Q6H PO 10/11/17 09:00 10/16/17 15:14 (ZyPREXA) 2.5 mg DAILY PO 10/13/17 11:00 10/16/17 11:53 (Kytril Inj) 1 mg Q12HR PRN IV PUSH 10/13/17 11:00 (Ativan Inj) 0.5 mg BID IV PUSH 10/13/17 14:15 10/16/17 09:39 (Lanoxin) 0.25 mg DAILY PO 10/14/17 09:00 10/16/17 09:41 (Betapace) 120 mg Q12HR PO 10/13/17 21:00 10/16/17 12:20 (Pill Splitter) 1 ea UNSCH PRN OTHER 10/13/17 19:15 Sodium Chloride 250 ml @ 15 mls/hr ONCE ONCE IV 10/16/17 08:30 10/17/17 01:09 (Tylenol) 650 mg Q4H PRN PO 10/16/17 08:30 10/16/17 15:14 (Benadryl) 25 mg Q4H PRN PO 10/16/17 08:30 (Lasix Inj) 20 mg UNSCH X1 IV PUSH 10/16/17 08:30 10/16/17 23:59 Vital Signs / I&O Vital Signs Date Time Temp Pulse Resp B/P (MAP) Pulse Ox O2 Delivery O2 Flow Rate FiO2 10/16/17 16:30 99.2 71 20 119/66 96 10/16/17 16:15 99 95 10/16/17 16:00 99.6 62 18 114/53 98 10/16/17 15:18 73 20 134/80 (98) 98 10/16/17 12:00 98.7 72 16 115/67 (83) 98 10/16/17 08:00 99.2 70 18 113/64 (80) 97 10/16/17 08:00 70 10/16/17 04:39 99.0 100 17 101/65 (77) 96 10/16/17 04:00 100 10/16/17 01:21 104 10/15/17 23:57 105 18 105/69 (81) 94 10/15/17 22:11 98.6 107 18 96/62 (73) 96 10/15/17 18:50 109 20 96 I/O 10/15/17 10/15/17 10/15/17 10/16/17 10/16/17 10/16/17 07:00 15:00 23:00 07:00 15:00 23:00 Intake Total 100 ml 480 ml 30 ml Balance 100 ml 480 ml 30 ml Intake Oral 480 ml IV Total 100 ml Blood Product IV Normal Saline Flush 30 ml # Voids 5 2 # Bowel Movements 0 Physical Exam GENERAL: In NAD SKIN: Warm and dry. HEAD: Normocephalic. EYES: No scleral icterus. No injection or drainage. NECK: Supple, trachea midline. No JVD or lymphadenopathy. CARDIOVASCULAR: Reg, without murmurs, gallops, or rubs. RESPIRATORY: Breath sounds equal bilaterally. No accessory muscle use. GASTROINTESTINAL: Abdomen soft, non-tender, nondistended. MUSCULOSKELETAL: No cyanosis, or edema. Laboratory Laboratory Tests Test 10/16/17 05:00 White Blood Count 16.4 TH/MM3 Red Blood Count 2.20 MIL/MM3 Hemoglobin 6.7 GM/DL Hematocrit 19.8 % Mean Corpuscular Volume 90.3 FL Mean Corpuscular Hemoglobin 30.7 PG Mean Corpuscular Hemoglobin Concent 34.0 % Red Cell Distribution Width 19.9 % Platelet Count 32 TH/MM3 Mean Platelet Volume 11.7 FL CBC Comment AUTO DIFF Differential Total Cells Counted 100 Neutrophils % (Manual) 7 % Band Neutrophils % 1 % Lymphocytes % 16 % Monocytes % 17 % Neutrophils # (Manual) 1.5 TH/MM3 Myelocytes 1 % Nucleated Red Blood Cells 5 /100 WBC Differential Comment FINAL DIFF MANUAL Blastocytes 58 % Platelet Estimate LOW Platelet Morphology Comment ENLARGED Tear Drop Cells 1+ Acanthocytes OCC Blood Urea Nitrogen 6 MG/DL Creatinine 0.86 MG/DL Random Glucose 97 MG/DL Total Protein 4.5 GM/DL Calcium Level 7.1 MG/DL Sodium Level 139 MEQ/L Potassium Level 3.5 MEQ/L Chloride Level 106 MEQ/L Carbon Dioxide Level 26.5 MEQ/L Anion Gap 7 MEQ/L Estimat Glomerular Filtration Rate 66 ML/MIN Protein Corrected Calcium 8.5 MG/DL Assessment and Plan Problem List: (1) Atrial fibrillation with RVR ICD Codes: I48.91 - Unspecified atrial fibrillation Status: Acute (2) Sepsis ICD Codes: A41.9 - Sepsis, unspecified organism Status: Resolved (3) AML (acute myeloid leukemia) ICD Codes: C92.00 - Acute myeloblastic leukemia, not having achieved remission Status: Acute (4) Anemia ICD Codes: D64.9 - Anemia, unspecified Status: Acute (5) Thrombocytopenia ICD Codes: D69.6 - Thrombocytopenia, unspecified Status: Acute Assessment and Plan Mild tachycardia. Continue sotalol and digoxin. Continue monitoring on tele. Increase activity, PT. Quadrat,Nathanael RIVERA Oct 16, 2017 17:09
--- NOTE | 2017-10-16 22:04 | HHI.PR ---
Objective Vitals Vital Signs Date Time Temp Pulse Resp B/P (MAP) Pulse Ox O2 Delivery O2 Flow Rate FiO2 10/16/17 21:45 100.0 76 16 122/74 98 10/16/17 18:30 70 20 125/79 96 10/16/17 16:30 99.2 71 20 119/66 96 10/16/17 16:15 99 95 10/16/17 16:14 20 10/16/17 16:00 99.6 62 18 114/53 98 10/16/17 15:18 73 20 134/80 (98) 98 10/16/17 12:00 98.7 72 16 115/67 (83) 98 10/16/17 08:00 99.2 70 18 113/64 (80) 97 10/16/17 08:00 70 10/16/17 04:39 99.0 100 17 101/65 (77) 96 10/16/17 04:00 100 10/16/17 01:21 104 10/15/17 23:57 105 18 105/69 (81) 94 10/15/17 22:11 98.6 107 18 96/62 (73) 96 I/O 10/15/17 10/15/17 10/15/17 10/16/17 10/16/17 10/16/17 07:00 15:00 23:00 07:00 15:00 23:00 Intake Total 100 ml 480 ml 510 ml Balance 100 ml 480 ml 510 ml Intake Oral 480 ml IV Total 100 ml Packed Cells 400 ml Blood Product IV Normal Saline Flush 110 ml # Voids 5 2 1 # Bowel Movements 0 Result Diagram: 10/16/17 0500 10/16/17 0500 Objective Remarks GENERAL: This is a well-nourished, well-developed patient, in no apparent distress. CARDIOVASCULAR: Regular rate and rhythm without murmurs, gallops, or rubs. RESPIRATORY: Clear to auscultation. Breath sounds equal bilaterally. No wheezes , rales, or rhonchi. GASTROINTESTINAL: Abdomen soft, non-tender, nondistended. Normal active bowel sounds MUSCULOSKELETAL: Extremities without clubbing, cyanosis, or edema. NEURO: Alert & Oriented x4 to person, place, time, situation. Moves all ext x4 Procedures None Date of Insertion: Sep 21, 2017 Line: PICC A/P Assessment and Plan 10/14: Complaining of nausea despite being on Zofran, will check digoxin level to make sure it is not in the toxic level, will check magnesium and replace as needed, 10/15 digoxin level within normal limits, appreciate cardiology follow-up, continues to digoxin if tachycardia is switched to amiodarone, we need close monitoring to electrolyte repeat BMP in a.m. A/P: Sepsis Secondary to C. difficile colitis. Appreciate infectious disease recommendations. No further diarrhea. - Continue IV Flagyl, oral vancomycin. Leukocytosis improved. Anemia/ thrombocytopenia/ AML Appreciate hematology/oncology recommendations. H/H stable. Plt count 14 10/11. - follow CBC. - follow up with oncology and transfuse as indicated. Transfuse 1 unit platelets 10/11. Respiratory insufficiency Stable. - Continue supplemental oxygen, bronchodilators. Nausea/vomiting Not controlled by Zofran. Patient also receiving Reglan. Had adverse reaction to Phenergan. Tigan did not help. GI consult appreciated. - Haldol added by palliative care. - Continue scopolamine patch. - Pepcid. - ADAT. - continue standing Reglan, rifaximin. - add Benadryl. Atrial fibrillation with RVR Rate becomes elevated with agitation/anxiety. No anticoagulation due to thrombocytopenia. HR in the 130s 10/11. Cardiology consult appreciated. - continue sotalol per cardiology. - telemetry. Hypokalemia S/t decreased PO intake. - replete and monitor. DVT prophylaxis: SCDs. Avoid chemical prophylaxis secondary to anemia. Eze Nagy MD Oct 16, 2017 22:04
[2017-10-17] VITALS (7 sets, daily range): BP systolic 117–138; BP diastolic 66–78; PULSE 72–76; RESP 16–18; TEMP 98.7–99.7; O2SAT 91–95
[2017-10-17] MEDS: metroNIDAZOLE 500 MG INJ 100 ML IV SCH ×2 (01:17→09:31)
[2017-10-17] MEDS: diphenhydrAMINE HCL 25 MG CAP PO SCH ×2 (02:40→09:31)
[2017-10-17] MEDS: INSULIN NovoLIN REGULAR SUPPLEMENTAL SCALE SQ SCH ×2 (03:00→09:00)
[2017-10-17] MEDS: CHLORHEXIDINE GLUCONATE 2 % 1 PACK (2 CLOTHS) TOP SCH (03:12)
[2017-10-17] MEDS: LEVOTHYROXINE SODIUM 25 MCG TAB PO SCH (05:53)
--- NOTE | 2017-10-17 06:45 | HHI.PR ---
Subjective Remarks Hemoglobin dropped to 6.7, patient denied any chest pain short of breath fever or chills Dr. Yarbrough oncology hematology started transfusion today Objective Vitals Vital Signs Date Time Temp Pulse Resp B/P (MAP) Pulse Ox O2 Delivery O2 Flow Rate FiO2 10/17/17 05:31 76 10/17/17 04:28 99.7 74 16 137/78 (97) 93 10/17/17 02:46 76 10/17/17 00:22 99.3 72 16 117/68 (84) 91 10/16/17 22:00 99.6 74 16 127/72 97 10/16/17 21:45 100.0 76 16 122/74 98 10/16/17 18:30 70 20 125/79 96 10/16/17 16:30 99.2 71 20 119/66 96 10/16/17 16:15 99 95 10/16/17 16:14 20 10/16/17 16:00 99.6 62 18 114/53 98 10/16/17 15:18 73 20 134/80 (98) 98 10/16/17 12:00 98.7 72 16 115/67 (83) 98 10/16/17 08:00 99.2 70 18 113/64 (80) 97 10/16/17 08:00 70 I/O 10/16/17 10/16/17 10/16/17 10/17/17 10/17/17 10/17/17 07:00 15:00 23:00 07:00 15:00 23:00 Intake Total 610 ml 550 ml Balance 610 ml 550 ml Intake Oral 100 ml 200 ml Packed Cells 400 ml 350 ml Blood Product IV Normal Saline Flush 110 ml # Voids 2 2 3 # Bowel Movements 1 2 Result Diagram: 10/16/17 0500 10/16/17 0500 Objective Remarks GENERAL: This is a well-nourished, well-developed patient, in no apparent distress. CARDIOVASCULAR: Regular rate and rhythm without murmurs, gallops, or rubs. RESPIRATORY: Clear to auscultation. Breath sounds equal bilaterally. No wheezes , rales, or rhonchi. GASTROINTESTINAL: Abdomen soft, non-tender, nondistended. Normal active bowel sounds MUSCULOSKELETAL: Extremities without clubbing, cyanosis, or edema. NEURO: Alert & Oriented x4 to person, place, time, situation. Moves all ext x4 Procedures None Date of Insertion: Sep 21, 2017 Line: PICC A/P Assessment and Plan 10/16: Hemoglobin dropped to 6.7 today, transfusion started by hematology oncology, continue monitoring H&H A/P: Sepsis Secondary to C. difficile colitis. Appreciate infectious disease recommendations. No further diarrhea. - Continue IV Flagyl, oral vancomycin. Leukocytosis improved. Anemia/ thrombocytopenia/ AML Appreciate hematology/oncology recommendations. H/H stable. Plt count 14 10/11. - follow CBC. - follow up with oncology and transfuse as indicated. Transfuse 1 unit platelets 10/11. Respiratory insufficiency Stable. - Continue supplemental oxygen, bronchodilators. Nausea/vomiting Not controlled by Zofran. Patient also receiving Reglan. Had adverse reaction to Phenergan. Tigan did not help. GI consult appreciated. - Haldol added by palliative care. - Continue scopolamine patch. - Pepcid. - ADAT. - continue standing Reglan, rifaximin. - add Benadryl. Atrial fibrillation with RVR Rate becomes elevated with agitation/anxiety. No anticoagulation due to thrombocytopenia. HR in the 130s 10/11. Cardiology consult appreciated. - continue sotalol per cardiology. - telemetry. Hypokalemia S/t decreased PO intake. - replete and monitor. DVT prophylaxis: SCDs. Avoid chemical prophylaxis secondary to anemia. Discharge Planning Lengthy stay, case management and hospital sales representative door to door to have meeting with family to address disposition Eze Nagy MD Oct 17, 2017 06:45
[2017-10-17] MEDS: SUCRALFATE 1 GM/10 ML CUP PO SCH ×3 (08:00→11:58)
[2017-10-17] MEDS: RIFAXIMIN 550 MG TAB PO SCH (09:00)
[2017-10-17] MEDS: NYSTATIN SUSP 500,000 U/5 ML CUP SWISH-SWAL SCH ×3 (09:00→13:00)
[2017-10-17] MEDS: VANCOMYCIN 25 MG/ML SUSP 100 ML BOTTLE PO SCH ×2 (09:00→13:00)
[2017-10-17] MEDS: DIGOXIN 0.25 MG TAB PO SCH (09:31)
[2017-10-17] MEDS: PANTOPRAZOLE SODIUM 40 MG VIAL IV PUSH SCH (09:31)
[2017-10-17] MEDS: SOTALOL HCL 80 MG TAB PO SCH (09:31)
[2017-10-17] MEDS: LORazepam 2 MG/ML VIAL IV PUSH SCH (09:31)
[2017-10-17] MEDS: OLANZapine 2.5 MG TAB PO SCH (09:31)
[2017-10-17 10:30] LABS: HEMATOCRIT 25.6 % (35.0-46.0); HEMOGLOBIN 8.9 GM/DL (11.6-15.3); MEAN CELL VOLUME 87.7 FL (80.0-100.0); MEAN CORPUSCULAR HEMOGLOBIN 30.4 PG (27.0-34.0); MEAN CORPUSCULAR HGB CONC 34.7 % (32.0-36.0); MEAN PLATELET VOLUME 9.7 FL (7.0-11.0); PLATELET COUNT 31 TH/MM3 (150-450); RED BLOOD COUNT 2.92 MIL/MM3 (4.00-5.30); WHITE BLOOD COUNT 19.7 TH/MM3 (4.0-11.0)
[2017-10-17 10:50] LABS: CALCIUM 7.3 MG/DL (8.5-10.1); CREATININE 0.92 MG/DL (0.50-1.00)
[2017-10-17 11:08] LABS: CALCIUM-PROTEIN CORRECTED 8.5 MG/DL (8.5-10.1); TOTAL PROTEIN 4.9 GM/DL (6.4-8.2)
--- NOTE | 2017-10-17 11:12 | HHI.HCPN ---
Reason for visit a. To assist with evaluation and management of symptoms including: Nausea, weakness b. To assist medical decision maker(s) with: better understanding of current medical conditions; weighing benefits/burdens of medical treatment options; making medical treatment decisions. Subjective/Interval History Patient seen to follow-up on symptom control and goals of care. She remains nauseated and is now upset that she is unable to receive Zofran, and she has been changed to Kytril, which she received at 4:30 AM. She is receiving Marinol and Ativan. She receives Zyprexa 2.5 mg daily and Benadryl 25 mg as needed for 2 doses. One dose of Benadryl been administered at this time. She has refused most of her oral medications today, including vancomycin. She had 3 liquid stools overnight. She received 2 units of packed red blood cells yesterday for hemoglobin 6.7. Her hemoglobin today is 8.9. She remains very weak. Clinical data * Laboratory: WBC 19.7 hemoglobin 8.9, hematocrit 25.6, platelets 31,000 sodium 137, potassium 3.5, BUN 7, creatinine 0.92. * Vital signs: BP 109/75, heart rate 120, respiratory rate 20, oxygen saturation 98% on 2 L nasal cannula, afebrile. Seen in room 232, this is a ill appearing female, lying in bed, very weak. She states she is very nauseated today. Her appetite has been very poor. We discussed a discharge plan that included short-term rehabilitation prior to going home with her daughter and she is in agreement with that plan. She says that she will do up to 10 days of rehabilitation but wants to go home. She states that her most important concern is that her children live in love and peace and that returning home to her daughter's home well be what makes her the happiest. Family/friend interactions Spoke with her daughter, Jerri, regarding her discharge and medications. Jerri states that her nausea is better controlled with the scopolamine patch and wants her discharged with that. We reviewed medications that she is being discharged on and options previously discussed with pharmacy to titrate those medications to effect. She is concerned with the cross effects of polypharmacy as her mother is generally medication zahra. She discussed possible use of aromatherapy for her nausea and the use of sofia for symptom control. We also discussed patient's stress level and difficulty in accepting her diagnosis. Jerri agreed that some of her mother's symptoms may be psychologically motivated , as she wishes to continue aggressive therapy, which is no longer available due to her significant debility and lack of response to the medication, per oncology. Patient is planning to return home to her daughter's once therapy is completed, which will hopefully help her depression. . Advance Directives Living Will: Copy in medical record Health Care Surrogate: Copy in medical record Durable Power of [employer] C[employer]: Never completed Advance Directive Specifics Date completed: 03/30/17 Health Care Surrogate(s): HCS/son Sarthak Miguel Alternate/daughter Jerri Miguel . . Documented care wishes: Living will on chart. . Objective Vital Signs Date Time Temp Pulse Resp B/P (MAP) Pulse Ox O2 Delivery O2 Flow Rate FiO2 10/17/17 10:17 73 10/17/17 09:19 99.6 74 18 138/73 (94) 95 10/17/17 05:31 76 10/17/17 04:28 99.7 74 16 137/78 (97) 93 10/17/17 02:46 76 10/17/17 00:22 99.3 72 16 117/68 (84) 91 10/16/17 22:00 99.6 74 16 127/72 97 10/16/17 21:45 100.0 76 16 122/74 98 10/16/17 18:30 70 20 125/79 96 10/16/17 16:30 99.2 71 20 119/66 96 10/16/17 16:15 99 95 10/16/17 16:14 20 10/16/17 16:00 99.6 62 18 114/53 98 10/16/17 15:18 73 20 134/80 (98) 98 10/16/17 12:00 98.7 72 16 115/67 (83) 98 Intake & Output 10/17/17 10/17/17 07:00 19:00 Intake Total 680 ml Balance 680 ml Intake Oral 300 ml Packed Cells 350 ml Blood Product IV Normal Saline Flush 30 ml # Voids 5 # Bowel Movements 3 Physical Exam CONSTITUTIONAL/GENERAL: This is a week, ill appearing female patient, in mild distress. TUBES/LINES/DRAINS: Right upper arm PICC ENT: Hearing grossly normal. Nose without bleeding or purulent drainage. NECK: Trachea midline. Supple, nontender. No palpable thyroid enlargement or nodularity. CARDIOVASCULAR: S1, S2, regular rhythm, tachycardic rate, no rub murmur or gallop auscultated. RESPIRATORY/CHEST: Lungs clear to auscultation bilaterally, diminished at the bases. GASTROINTESTINAL: Abdomen soft, non-tender, mildly distended. Bowel sounds present. GENITOURINARY: Without palpable bladder distension. Wearing brief. MUSCULOSKELETAL: Extremities without clubbing, cyanosis, or edema. No joint tenderness or effusion noted. No calf tenderness. No mottling or clubbing. NEUROLOGICAL: Alert, oriented. Motor and sensory grossly within normal limits. Follows commands. Cognitively sharp. Moves all extremities. PSYCHIATRIC: Anxious, fatigued, cooperative. . Diagnostic Tests Laboratory Laboratory Tests Test 10/14/17 17:41 10/15/17 05:40 10/16/17 05:00 10/17/17 10:00 Magnesium Level 1.7 MG/DL (1.5-2.5) Digoxin Level 0.6 NG/ML (0.8-2.0) White Blood Count 18.5 TH/MM3 (4.0-11.0) 16.4 TH/MM3 (4.0-11.0) 19.7 TH/MM3 (4.0-11.0) Red Blood Count 2.36 MIL/MM3 (4.00-5.30) 2.20 MIL/MM3 (4.00-5.30) 2.92 MIL/MM3 (4.00-5.30) Hemoglobin 7.2 GM/DL (11.6-15.3) 6.7 GM/DL (11.6-15.3) 8.9 GM/DL (11.6-15.3) Hematocrit 21.3 % (35.0-46.0) 19.8 % (35.0-46.0) 25.6 % (35.0-46.0) Mean Corpuscular Volume 90.4 FL (80.0-100.0) 90.3 FL (80.0-100.0) 87.7 FL (80.0-100.0) Mean Corpuscular Hemoglobin 30.5 PG (27.0-34.0) 30.7 PG (27.0-34.0) 30.4 PG (27.0-34.0) Mean Corpuscular Hemoglobin Concent 33.7 % (32.0-36.0) 34.0 % (32.0-36.0) 34.7 % (32.0-36.0) Red Cell Distribution Width 20.0 % (11.6-17.2) 19.9 % (11.6-17.2) 19.0 % (11.6-17.2) Platelet Count 31 TH/MM3 (150-450) 32 TH/MM3 (150-450) 31 TH/MM3 (150-450) Mean Platelet Volume 10.1 FL (7.0-11.0) 11.7 FL (7.0-11.0) 9.7 FL (7.0-11.0) CBC Comment AUTO DIFF AUTO DIFF AUTO DIFF Differential Total Cells Counted 100 100 Neutrophils % (Manual) 7 % (16-70) 7 % (16-70) Lymphocytes % 22 % (9-44) 16 % (9-44) Monocytes % 4 % (0-8) 17 % (0-8) Neutrophils # (Manual) 1.7 TH/MM3 (1.8-7.7) 1.5 TH/MM3 (1.8-7.7) Myelocytes 1 % (0-0) 1 % (0-0) Promyelocytes 1 % (0-0) Nucleated Red Blood Cells 1 /100 WBC (0-0) 5 /100 WBC (0-0) Differential Comment FINAL DIFF MANUAL FINAL DIFF MANUAL Blastocytes 65 % (0-0) 58 % (0-0) Platelet Estimate LOW (NORMAL) LOW (NORMAL) Platelet Morphology Comment ENLARGED (NORMAL) ENLARGED (NORMAL) Tear Drop Cells 1+ (NORMAL) 1+ (NORMAL) Keratocytes OCC (NORMAL) Blood Urea Nitrogen 5 MG/DL (7-18) 6 MG/DL (7-18) 7 MG/DL (7-18) Creatinine 0.86 MG/DL (0.50-1.00) 0.86 MG/DL (0.50-1.00) 0.92 MG/DL (0.50-1.00) Random Glucose 78 MG/DL (74-106) 97 MG/DL (74-106) 104 MG/DL (74-106) Total Protein 4.8 GM/DL (6.4-8.2) 4.5 GM/DL (6.4-8.2) Calcium Level 7.1 MG/DL (8.5-10.1) 7.1 MG/DL (8.5-10.1) 7.3 MG/DL (8.5-10.1) Sodium Level 138 MEQ/L (136-145) 139 MEQ/L (136-145) 137 MEQ/L (136-145) Potassium Level 3.4 MEQ/L (3.5-5.1) 3.5 MEQ/L (3.5-5.1) 3.5 MEQ/L (3.5-5.1) Chloride Level 105 MEQ/L (98-107) 106 MEQ/L (98-107) 103 MEQ/L (98-107) Carbon Dioxide Level 26.4 MEQ/L (21.0-32.0) 26.5 MEQ/L (21.0-32.0) 27.0 MEQ/L (21.0-32.0) Anion Gap 7 MEQ/L (5-15) 7 MEQ/L (5-15) 7 MEQ/L (5-15) Estimat Glomerular Filtration Rate 66 ML/MIN (>89) 66 ML/MIN (>89) 61 ML/MIN (>89) Protein Corrected Calcium 8.4 MG/DL (8.5-10.1) 8.5 MG/DL (8.5-10.1) Band Neutrophils % 1 % (0-6) Acanthocytes OCC (NORMAL) Result Diagram: 10/17/17 1000 10/17/17 1000 Microbiology Microbiology Date/Time Source Procedure Growth Status 10/02/17 12:00 Blood Other Aerobic Blood Culture - Final NO GROWTH IN 5 DAYS Complete 10/02/17 12:00 Blood Other Anaerobic Blood Culture - Final NO GROWTH IN 5 DAYS Complete 10/02/17 14:00 Stool Stool Stool Occult Blood ([facility]) - Final HEMOCCULT NEGATIVE Complete 10/01/17 15:14 Urine Clean Catch Urine Culture - Final 50-100,000 CFU/ML MIXED GRAM POSITIVE... Complete . Imaging Last Impressions Chest X-Ray 10/05/17 0000 Signed Impressions: Service Date/Time: Thursday, October 05, 2017 13:32 - CONCLUSION: Support apparatus good position, no pneumothorax. Darrell G. 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 Moderate ostial RUBY stenosis. Findings of mild proximal colitis. Raoul Denton MD CT Angiography 10/01/17 1251 Signed Impressions: Service Date/Time: Sunday, October 01, 2017 14:19 - CONCLUSION: 1. No evidence of pulmonary embolism. 2. Focal infiltrate within the left upper lobe posteriorly consistent with possible pneumonia. 3. Scattered atelectatic changes bilaterally. 4. Stable aneurysmal dilatation of the ascending thoracic aorta measuring 4.7 cm in greatest dimension. 5. Stable cardiomegaly and coronary artery calcifications. 6. Minimal posterior pleural thickening bilaterally. Desmond Jaimes MD . Procedures 09/21: PICC line placement 10/01: Left subclavian triple lumen placed . Assessment and Plan Disease Oriented Problem List: (1) AML (acute myeloid leukemia) (2) Debility (3) Sepsis Symptom Scale: (1) Nausea 0-10 Scale: Unable to quantify (continuous nausea, spitting up frequently without significant emesis, in spite of multiple medications.) (2) Weakness 0-10 Scale: Unable to quantify (continued debility from poor performance status likely due to multiple comorbidities and side effects of chemotherapy.) (3) Diarrhea 0-10 Scale: Unable to quantify (recurrent C. difficile, having difficulty tolerating oral vancomycin due to nausea.) Pertinent Non-Medical Issues Psychosocial:Originally from [place]. , has 2 adult children. 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 Spiritual:Anabaptism biju. Legal: Living will and designation of healthcare surrogate completed. Ethical issues impacting care:No ethical issues identified. . Important Contacts [facility]/son Sarthak Miguel daughter Jerri Miguel . . Prognosis Her prognosis is poor. She has been diagnosed with acute myeloid leukemia and per my discussion with oncology, even with treatment, her lifespan is likely to be less than a year. Without therapy, 3-6 months. 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 Without treatment her sepsis is likely to continue until hemodynamic compromise and possible . . Code Status: No Code Plan PLAN: Legal decision maker: He is currently capacitated to make her own decisions. Goals: Continuing to pursue chemotherapy and full resuscitative treatment. CODE STATUS: FULL CODE SYMPTOMS: * Nausea: She states that nausea started right after she initiated chemotherapy , her last dose was the end of August. She states Dr. Yarbrough is no longer going to give her chemotherapy due to her progressive debility and inability to eat. She has failed treatment with Tigan, Reglan, lorazepam, Protonix, Zofran, Carafate, Haldol, Phenergan, scopolamine. She is now refusing Zofran and Marinol as she states her nausea gets worse with oral medications. She is receiving scheduled Benadryl and Zyprexa and as needed Kytril for nausea. Scopolamine, Tigan, Reglan, Compazine, Phenergan, Zofran have been discontinued to reduce the side effects of polypharmacy. She has not yet received a dose of Kytril. We will continue to follow to gauge efficacy of medication. Oncology has noted that she is appropriate for hospice at this time is not willing to consider that option. Family believes that some of her reticence in participating in her therapy is due to depression. Family requests that when she is discharged to rehab that she continues to have her scopolamine patch and Marinol for nausea control. Discussed with nurse. * Weakness: This is multi-factorial to include AML, chemotherapy and debility. She is unable to consume food or water due to her nausea which is contributing to her weakness. First goal being to control the nausea, and medication changes as noted above have been made, pending reevaluation of efficacy. She will not be receiving chemotherapy due to her poor performance status, but is likely still experiencing the side effects from her last dose at the end of August. She is only able to take sips of chocolate ensure and is frequently vomiting. At this point there is some concern for aspiration, as well, due to the recurrent vomiting and progressive weakness. Without nutrition she will certainly still continued to decline. Transfer to rehab today. Palliative care will continue to follow the patient during hospital course as condition evolves, to assist patient/decision-maker with understanding of their medical conditions, weighing benefits/burdens of treatment options, for clarification of goals of treatment. Additionally will assist with any symptoms of palliative concern. . Time Spent >50% Counseling/Coord of Care: No Attestation To help prompt me to consider important information that might be impacting today's encounter and assessment, information from prior notes written by myself or my colleagues may have been "brought forward" into today's note. My signature on this note, however, is an attestation that I personally performed the exam, history, and/or decision-making noted today, and, unless otherwise indicated, the interactions with patient, family, and staff as well as the review of records all occurred today. I also attest that the listed assessment and stated plan reflect my best clinical judgment today based on the combination of historical information, prior notes, and today's exam/ interactions. When time spent is documented, it refers only to time spent today by the signer, or if indicated, combined time spent today by collaborating physician/nurse practitioner. . Veronica Grant Oct 17, 2017 11:12 am
[2017-10-17 11:25] LABS: BASOPHILS 1 % (0-2); BLASTS 65 % (0-0); CORRECTED NUCLEATED RBC 10 /100 WBC (0-0); LYMPHOCYTES 12 % (9-44); MONOCYTES 3 % (0-8); NEUTROPHIL # MANUAL DIFF 3.5 TH/MM3 (1.8-7.7); NUCLEATED RED BLOOD CELL 10 (0-0); PLASMA CELLS 1 % (0-0); POLYS (SEG NEUTROPHILS) 18 % (16-70)
[2017-10-17 11:27] LABS: ACANTHOCYTES OCC (NORMAL); OVALOCYTES 1+ (NORMAL)
[2017-10-17 11:28] LABS: TEARDROP RBCS 1+ (NORMAL)
[2017-10-17] MEDS: DRONABINOL 2.5 MG CAP PO SCH (11:45)
--- NOTE | 2017-10-17 12:36 | PD.ONC.PN ---
Subjective Subjective Remarks Nauseated Would like the room to be a bit cooler Starting to consider a short term placement in rehab States she is waiting on PT to come in to see her today Objective Data Date Time Temp Pulse Resp B/P (MAP) Pulse Ox O2 Delivery O2 Flow Rate FiO2 10/17/17 11:39 98.7 75 18 133/66 (88) 94 10/17/17 10:17 73 10/17/17 09:19 99.6 74 18 138/73 (94) 95 10/17/17 05:31 76 10/17/17 04:28 99.7 74 16 137/78 (97) 93 10/17/17 02:46 76 10/17/17 00:22 99.3 72 16 117/68 (84) 91 10/16/17 22:00 99.6 74 16 127/72 97 10/16/17 21:45 100.0 76 16 122/74 98 10/16/17 18:30 70 20 125/79 96 10/16/17 16:30 99.2 71 20 119/66 96 10/16/17 16:15 99 95 10/16/17 16:14 20 10/16/17 16:00 99.6 62 18 114/53 98 10/16/17 15:18 73 20 134/80 (98) 98 10/17/17 10/17/17 10/17/17 07:00 15:00 23:00 Intake Total 550 ml Balance 550 ml Result Diagram: 10/17/17 1000 10/17/17 1000 Laboratory Results Laboratory Tests Test 10/17/17 10:00 White Blood Count 19.7 TH/MM3 Red Blood Count 2.92 MIL/MM3 Hemoglobin 8.9 GM/DL Hematocrit 25.6 % Mean Corpuscular Volume 87.7 FL Mean Corpuscular Hemoglobin 30.4 PG Mean Corpuscular Hemoglobin Concent 34.7 % Red Cell Distribution Width 19.0 % Platelet Count 31 TH/MM3 Mean Platelet Volume 9.7 FL CBC Comment AUTO DIFF Differential Total Cells Counted 100 Neutrophils % (Manual) 18 % Lymphocytes % 12 % Monocytes % 3 % Basophils % 1 % Neutrophils # (Manual) 3.5 TH/MM3 Nucleated Red Blood Cells 10 /100 WBC Differential Comment FINAL DIFF MANUAL Blastocytes 65 % Plasma Cells 1 % Platelet Estimate LOW Platelet Morphology Comment ENLARGED Tear Drop Cells 1+ Ovalocytes 1+ Acanthocytes OCC Blood Urea Nitrogen 7 MG/DL Creatinine 0.92 MG/DL Random Glucose 104 MG/DL Total Protein 4.9 GM/DL Calcium Level 7.3 MG/DL Sodium Level 137 MEQ/L Potassium Level 3.5 MEQ/L Chloride Level 103 MEQ/L Carbon Dioxide Level 27.0 MEQ/L Anion Gap 7 MEQ/L Estimat Glomerular Filtration Rate 61 ML/MIN Protein Corrected Calcium 8.5 MG/DL Administered Medications Medications (Trade) Dose Ordered Sig/Tylor Route PRN Reason Start Time Stop Time Status Last Admin Dose Admin Sodium Chloride (NS Flush) 2 ml UNSCH PRN IV FLUSH FLUSH AFTER USING IV ACCESS 10/01/17 12:45 10/03/17 08:27 Albuterol/ Ipratropium (Duoneb Neb) 1 ampule Q2HR NEB PRN INH WHEEZING 10/01/17 14:00 10/11/17 03:53 Chlorhexidine Gluconate (Chlorhexidine 2% Cloth) Taper DAILY@04 TOP 10/02/17 04:00 09/28/18 03:59 10/08/17 03:36 Dextrose (D50w (Vial) Inj) 50 ml UNSCH PRN IV PUSH HYPOGLYCEMIA-SEE COMMENTS 10/01/17 15:00 10/04/17 20:25 Morphine Sulfate (Morphine Inj) 2 mg Q3H PRN IV PUSH pain 6-10 10/01/17 21:30 10/15/17 03:09 Sucralfate (Carafate Liq) 1 gm ACHS PO 10/03/17 12:00 10/16/17 18:28 Pantoprazole Sodium (Protonix Inj) 40 mg Q12HR IV PUSH 10/03/17 11:30 10/17/17 09:31 Nystatin (Mycostatin Liq) 5 ml QID SWISH-SWAL 10/04/17 18:00 10/16/17 18:28 Rifaximin (Xifaxan) 550 mg BID PO 10/04/17 21:00 10/16/17 22:23 Metronidazole 100 ml @ 100 mls/hr Q8H IV 10/04/17 16:00 10/17/17 09:31 Levothyroxine Sodium (Synthroid) 25 mcg DAILY@0600 PO 10/06/17 06:00 10/17/17 05:53 Haloperidol Lactate (Haldol Inj) 0.5 mg Q6HR PRN IV PUSH MILD NAUSEA OR VOMITING 10/05/17 14:15 Future Hold 10/07/17 23:48 Haloperidol Lactate (Haldol Inj) 1 mg Q6HR PRN IV PUSH SEVERE NAUSEA AND VOMITING 10/05/17 16:15 Future Hold 10/10/17 02:33 Vancomycin HCl (Vancomycin 25 Mg/ml Liq) 125 mg QID PO 10/06/17 10:00 10/16/17 22:27 Non-Formulary Medication 1 ea Q3D T-DERMAL 10/06/17 10:00 10/15/17 10:00 Potassium Chloride/Dextrose/ Sod Cl 1,000 ml @ 50 mls/hr Q20H IV 10/07/17 18:15 10/16/17 22:28 Dronabinol (Marinol) 2.5 mg BID@11,16 PO 10/09/17 16:00 10/17/17 11:45 Diphenhydramine HCl (Benadryl) 25 mg Q6H PO 10/11/17 09:00 10/17/17 09:31 Olanzapine (ZyPREXA) 2.5 mg DAILY PO 10/13/17 11:00 10/17/17 09:31 Granisetron HCl (Kytril Inj) 1 mg Q12HR PRN IV PUSH Nausea 10/13/17 11:00 10/17/17 04:34 Lorazepam (Ativan Inj) 0.5 mg BID IV PUSH 10/13/17 14:15 10/17/17 09:31 Digoxin (Lanoxin) 0.25 mg DAILY PO 10/14/17 09:00 10/17/17 09:31 Sotalol HCl (Betapace) 120 mg Q12HR PO 10/13/17 21:00 10/17/17 09:31 Diphenhydramine HCl (Benadryl) 25 mg Q4H PRN PO SEE LABEL COMMENTS 10/16/17 08:30 10/16/17 20:28 Objective Remarks GENERAL: Fatigued appearing older female resting in bed in no obvious distress. SKIN: Warm and dry. HEAD: Normocephalic. EYES: No scleral icterus. No injection or drainage. NECK: Supple, trachea midline. No JVD or lymphadenopathy. CARDIOVASCULAR: Regular rate and rhythm without murmurs. RESPIRATORY: Clear anteriorly. Breathing unlabored at rest. GASTROINTESTINAL: Abdomen soft, non-tender, nondistended. EXTREMITIES: No cyanosis, or edema. MUSCULOSKELETAL: Adequate muscle tone. NEUROLOGICAL: No obvious focal deficit. Awake, alert, and oriented x3. Assessment/Plan Assessment 67y/o female with AML, admitted with intractable nausea/vomiting. HPI (brought forward from initial consult for continuity of care): status post four cycles of Dacogen. She was initiated on treatment in February of 2017. has received four cycles thus far with the most recent cycle completed 7 prior to current admission. She presented to hospital three days after her most recent discharge. She was admitted to the hospital at that time with C-diff colitis. The patient reports symptoms of abdominal pain, nausea, inability tolerate oral intake and generalized weakness and fatigue. She was unable to care for herself at home even with the help of her daughter and was brought into [place] ER last night. The patient was noted to be tachycardiac and hypotensive. She was assessed to have severe sepsis likely secondary to C-diff colitis and was admitted to the hospital for IV fluid hydration and antibiotic therapy. Plan 1. Control of nausea remains biggest priority at present to get pt to rehab; pt reports she was able to eat a few bites this am, but then developed nausea. 2. Continue Kytril instead of Zofran for anti-emetics. 3. With pt's poor performance status, we are unable to offer her any further chemotherapy at this point. 4. She remains Hospice appropriate. Wendy Lopez Oct 17, 2017 12:36
[2017-10-17] MEDS ORDERED: LEVO25TA4 PO (12:44)
[2017-10-17] MEDS ORDERED: SOTA80 PO (12:44)
[2017-10-17] MEDS ORDERED: DIGO0.25 PO (12:44)
[2017-10-17] MEDS ORDERED: DRON5CAP PO (12:45)
[2017-10-17] MEDS ORDERED: GRAN1TAB PO (12:51)
[2017-10-17] MEDS ORDERED: TRAM50TA PO (12:52)
--- NOTE | 2017-10-17 12:58 | HHI.DS ---
Discharge Summary Admission Date Oct 01, 2017 at 15:49 Discharge Date: Oct 17, 2017 Admitting Diagnosis severe sepsis, symptomatic anemia, colitis, pneumonia (1) Atrial fibrillation with RVR ICD Code: I48.91 - Unspecified atrial fibrillation Diagnosis: Principal Status: Acute (2) Thrombocytopenia ICD Code: D69.6 - Thrombocytopenia, unspecified Diagnosis: Principal Status: Acute (3) Anemia ICD Code: D64.9 - Anemia, unspecified Diagnosis: Principal Status: Acute (4) AML (acute myeloid leukemia) ICD Code: C92.00 - Acute myeloblastic leukemia, not having achieved remission Diagnosis: Principal Status: Acute (5) Debility ICD Code: R53.81 - Other malaise Diagnosis: Principal Status: Acute Procedures None Brief History - From Admission From H&P: "The patient is a 67-year-old female with a past medical history of COPD, atrial fibrillation, AML who was recently discharged from [facility] on September 28 after she was admitted for intractable nausea, vomiting, abdominal pain and C diff colitis. The patient presented to [facility] ED with nausea, abdominal pain and similar presentation to her most recent admission. On arrival she was tachycardiac and she became hypotensive in the ED with systolic blood pressure in the 90s. In addition she was hypoxic with saturation in the 60s. The patient was given one liter bolus of normal saline with improvements of her hemodynamics. Her laboratory data significant for anemia with hemoglobin 6.6, leukocytosis with WBC of 21.8. Her lactic acid level measured at 1.2. She is currently receiving first out of two units of PRBCs that were ordered by the ED. When seen in the ER the patient is awake, alert. She was on a non-rebreather. However, she has been weaned down to nasal cannula. She was comfortable and reports some abdominal cramps with feeling nauseous. CT abdomen and pelvis in the ED showed minimal bowel wall thickening and descending colon which could be an early mild colitis. The patient also underwent CT angiogram of the chest which showed no evidence of PE however it showed focal infiltrate within the left upper lobe and scattered atelectatic changes bilaterally. Stable aneurysmal dilatation of the ascending thoracic aorta measuring 4.7 cm. The patient denies any chest pain, orthopnea, PND. She denies any diarrhea at the present time. She had a normal bowel movement yesterday." CBC/BMP: 10/17/17 1000 10/17/17 1000 Significant Findings Laboratory Tests Test 10/14/17 17:41 10/15/17 05:40 10/16/17 05:00 10/17/17 10:00 Digoxin Level 0.6 NG/ML (0.8-2.0) White Blood Count 18.5 TH/MM3 (4.0-11.0) 16.4 TH/MM3 (4.0-11.0) 19.7 TH/MM3 (4.0-11.0) Red Blood Count 2.36 MIL/MM3 (4.00-5.30) 2.20 MIL/MM3 (4.00-5.30) 2.92 MIL/MM3 (4.00-5.30) Hemoglobin 7.2 GM/DL (11.6-15.3) 6.7 GM/DL (11.6-15.3) 8.9 GM/DL (11.6-15.3) Hematocrit 21.3 % (35.0-46.0) 19.8 % (35.0-46.0) 25.6 % (35.0-46.0) Red Cell Distribution Width 20.0 % (11.6-17.2) 19.9 % (11.6-17.2) 19.0 % (11.6-17.2) Platelet Count 31 TH/MM3 (150-450) 32 TH/MM3 (150-450) 31 TH/MM3 (150-450) Neutrophils % (Manual) 7 % (16-70) 7 % (16-70) Neutrophils # (Manual) 1.7 TH/MM3 (1.8-7.7) 1.5 TH/MM3 (1.8-7.7) Myelocytes 1 % (0-0) 1 % (0-0) Promyelocytes 1 % (0-0) Nucleated Red Blood Cells 1 /100 WBC (0-0) 5 /100 WBC (0-0) 10 /100 WBC (0-0) Blastocytes 65 % (0-0) 58 % (0-0) 65 % (0-0) Platelet Estimate LOW (NORMAL) LOW (NORMAL) LOW (NORMAL) Platelet Morphology Comment ENLARGED (NORMAL) ENLARGED (NORMAL) ENLARGED (NORMAL) Tear Drop Cells 1+ (NORMAL) 1+ (NORMAL) 1+ (NORMAL) Keratocytes OCC (NORMAL) Blood Urea Nitrogen 5 MG/DL (7-18) 6 MG/DL (7-18) Total Protein 4.8 GM/DL (6.4-8.2) 4.5 GM/DL (6.4-8.2) 4.9 GM/DL (6.4-8.2) Calcium Level 7.1 MG/DL (8.5-10.1) 7.1 MG/DL (8.5-10.1) 7.3 MG/DL (8.5-10.1) Potassium Level 3.4 MEQ/L (3.5-5.1) Estimat Glomerular Filtration Rate 66 ML/MIN (>89) 66 ML/MIN (>89) 61 ML/MIN (>89) Protein Corrected Calcium 8.4 MG/DL (8.5-10.1) Mean Platelet Volume 11.7 FL (7.0-11.0) Monocytes % 17 % (0-8) Acanthocytes OCC (NORMAL) OCC (NORMAL) Plasma Cells 1 % (0-0) Ovalocytes 1+ (NORMAL) PE at Discharge GENERAL: This is a well-nourished, well-developed patient, in no apparent distress. CARDIOVASCULAR: Regular rate and rhythm without murmurs, gallops, or rubs. RESPIRATORY: Clear to auscultation. Breath sounds equal bilaterally. No wheezes , rales, or rhonchi. GASTROINTESTINAL: Abdomen soft, non-tender, nondistended. Normal active bowel sounds MUSCULOSKELETAL: Extremities without clubbing, cyanosis, or edema. NEURO: Alert & Oriented x4 to person, place, time, situation. Moves all ext x4 Hospital Course Mrs. Richard is a 67 year old female. She has a history of AML. She was admitted secondary to nausea, vomiting, diarrhea, dehydration, and A. fib RVR. Severe sepsis related to C. difficile was present at time of admit. She has been treated with vancomycin. Completion of treatment date was on . All here which she was also treated with nystatin oral swish and swallow and this is also completed as a treatment. Infections are presently under control. A. fib RVR is controlled with beta oneil this time. Global weakness is present in this patient will be discharging to a [facility] facility. At this point she is not a candidate for chemotherapy but will continue to follow with oncology as an outpatient. Medically stable for discharge to [facility] facility with rehabilitation today. Pt Condition on Discharge: Stable Discharge Disposition: Discharge to SNF Discharge Time: > 30 minutes Discharge Instructions DIET: Follow Instructions for: As Tolerated, No Restrictions Activities you can perform: Regular-No Restrictions Follow up Referrals: Oncology/Hematology - 2 Weeks PCP Follow-up - 2 Weeks New Medications: Granisetron (Granisetron) 1 Mg Tab 1 MG PO BID PRN for Nausea, #30 TAB 0 Refills Tramadol (Tramadol) 50 Mg Tab 50 MG PO Q6H PRN for PAIN, #60 TAB 0 Refills Digoxin (Digoxin) 0.25 Mg Tab 0.25 MG PO DAILY for Heart Rate Control, #30 TAB Levothyroxine (Levothyroxine) 25 Mcg Tab 25 MCG PO DAILY for hypothyroidism, #30 TAB Sotalol (Sorine) 80 Mg Tab 120 MG PO Q12HR for Rate Control, #90 TAB Continued Medications: Atorvastatin (Atorvastatin) 40 Mg Tab 40 MG PO HS for Cholesterol Management, #30 TAB 0 Refills Dronabinol (Dronabinol) 5 Mg Cap 5 MG PO BID@11,16 for appetite enhancer, #30 CAP (This prescription has been renewed) Pantoprazole (Pantoprazole) 40 Mg Tab 40 MG PO DAILY for Reflux, #30 TAB 0 Refills Sucralfate Liq (Sucralfate Liq) 1 Gram/10 Ml Leida 1 GM PO ACHS for gi protection for 30 Days, GM Discontinued Medications: Metoprolol Tartrate (Metoprolol Tartrate) 25 Mg Tab 25 MG PO BID, #60 TAB 0 Refills Vancomycin Inj (Vancomycin Inj) 500 Mg Inj 125 MG PO QID for c. diff for 6 Days, INJECTION to be used orally 500 mg po qid for 6 days Berny Alfonso MD Oct 17, 2017 12:58
[2017-10-17] MEDS ORDERED: SCOP1PAT2 T-DERMAL (14:15)
--- NOTE | 2017-10-19 13:41 | EKG ---
Date Performed: 10/17/2017 Time Performed: 08:24:10 PTAGE: 67 years EKG: Sinus rhythm with 1st degree A-V block. Possible anteroseptal infarct - age undetermined Generalized low QRS volt ages Abnormal ECG PREVIOUS TRACING : 10/13/2017 10.03 Prolongation of the QT interval for the heart rate Since th e prior tracing, sinus tachycardia has resolved, but there is no other significant serial change. DOCTOR: Mandy Concepcion Interpretating Date/Time 10/19/2017 13:40:06
== END 2017-10-17 15:41 | DRG 872 ==
LOC: NEPE 12:09 → NEDA 15:49 → HIMW 16:46 → HIME 10-03 19:35 → HCIN 10-11 20:44
PROVIDERS: ADMIT Hospitalist; ATTEND Hospitalist
PROC: 05H633Z Insertion of Infusion Device into Left Subclavian Vein, Percutaneous Approach (ICD-10-PCS; principal; 2017-10-01)
PROC: 30233N1 Transfusion of Nonautologous Red Blood Cells into Peripheral Vein, Percutaneous Approach (ICD-10-PCS; 2017-10-16)
DX: A41.4 Sepsis due to anaerobes (principal); C92.00 Acute myeloblastic leukemia, not having achieved remission; D61.818 Other pancytopenia; I95.9 Hypotension, unspecified; I77.4 Celiac artery compression syndrome; A04.72 Enterocolitis due to Clostridium difficile, not specified as recurrent; J44.0 Chronic obstructive pulmonary disease with (acute) lower respiratory infection; I48.92 Unspecified atrial flutter; I71.2 Thoracic aortic aneurysm, without rupture; I48.0 Paroxysmal atrial fibrillation; R65.20 Severe sepsis without septic shock; R00.0 Tachycardia, unspecified; N18.9 Chronic kidney disease, unspecified; I12.9 Hypertensive chronic kidney disease with stage 1 through stage 4 chronic kidney disease, or unspecified chronic kidney disease; E03.9 Hypothyroidism, unspecified; E87.6 Hypokalemia; M19.90 Unspecified osteoarthritis, unspecified site; E78.5 Hyperlipidemia, unspecified; I25.2 Old myocardial infarction; Z87.891 Personal history of nicotine dependence; Z86.73 Personal history of transient ischemic attack (TIA), and cerebral infarction without residual deficits; R09.02 Hypoxemia; K29.70 Gastritis, unspecified, without bleeding; Z51.5 Encounter for palliative care; E86.0 Dehydration; F41.9 Anxiety disorder, unspecified; R06.89 Other abnormalities of breathing; T42.6X5A Adverse effect of other antiepileptic and sedative-hypnotic drugs, initial encounter; Y92.239 Unspecified place in hospital as the place of occurrence of the external cause; K20.9 Esophagitis, unspecified; K29.80 Duodenitis without bleeding; K64.9 Unspecified hemorrhoids
CPT/HCPCS: 36430; 36556; 36600; 71045; 71275; 74174; 74177; 80048; 80053; 80162; 81001; 82272; 82533; 82805; 82948; 83605; 83690; 83735; 84100; 84132; 84155; 84439; 84443; 85007; 85014; 85018; 85027; 85610; 85730; 86850; 86900; 86901; 86920; 87040; 87086; 87338; 87449; 87493; 87641; 93005; 94003; 94640; 94664; 96361; 96374; 96375; C9113; J0780; J1626; J1630; J1940; J2060; J2270; J2405; J2550; J2765; J3250; J3475; J3480; J7030; J7042; J7050; P9016; P9037; P9040; Q0167; Q9967